=== PATIENT | male | born 1940 | race Caucasian/White ===

== ENCOUNTER → 2017-11-08 10:19 | Outpatient (CLI) | payer MEDICARE, OTHER, SELFPAY ==
[2016-12-21 14:00] VITALS: BMI 28.0
--- NOTE | 2017-11-08 10:20 | STE_ITS ---
Reason For Study: Dyspnea Stress Results Protocol: Modified Scooby Protocol Maximum Predicted HR: 144 bpm Target HR: 122 bpm% Maximum Pred icted HR: 97 % Heart Stage Duration Rate BPCom ment (mm:ss) (bpm) Baseline 73 136/70 Modified Scooby Protocol Stage 0 3:00 11 7 162/74No Chest Pain Modified Scooby Protocol Stage 1/2 3:00 13 4 150/76Mild Dyspnea Moderate Dyspnea, Knee Pain, No Chest Modified Scooby Protocol Stage 1 1:00 13 9 / Pain Recovery 85 134/68 Stress Duration: 7:00 mm:ss Maximum Stress HR: 139 bpmM ETS: 4 Baseline Echocardiogram Findings The estimated ejection fraction is 60 %. Stress Echo Wall motion Data Resting WMIntermediate WMStress WM Wall Motion Stress No regional wall motion abnormalities noted. EKG Data Normal intervals are noted. Interpretation Summary The estimated ejection fraction is 60 %. Normal, adequate, modified Scooby treadmill echocardiogram. Negative for ischemia by EKG and echocardiographic criteria. No anginal symptoms noted. No arrhythmias noted. Appropriate blood pressure response to exercise. Average exercise capacity for age. Average exercise capacity for age. Final LVEF is 75%. Test terminated due to knee pain. Ordering Physician: Rich Sanchez Referring Physician: Rich Sanchez Performed By: Dia Stubbs, AMANDEEP, RVT
== END ==
PROVIDERS: Family Provider Student in an Organized Health Care Education/Training Program; PCP Student in an Organized Health Care Education/Training Program; Visit Provider Internal Medicine Cardiovascular Disease
DX: I25.10 Atherosclerotic heart disease of native coronary artery without angina pectoris (principal); I25.5 Ischemic cardiomyopathy; Z95.1 Presence of aortocoronary bypass graft
CPT/HCPCS: 93017; 93350

== ENCOUNTER → 2018-05-22 07:03 | Outpatient (CLI) | payer MEDICARE, OTHER, SELFPAY ==
[2016-12-21 14:00] VITALS: BMI 28.0
--- NOTE | 2018-05-22 16:07 | PFTCOMP ---
COMPLETE PULMONARY FUNCTION TEST INTERPRETATION Brief HPI: Patient is a 77 year old male, currently under the care of Dr. Sanchez, who presents to [facility] for complete pulmonary function tests secondary to diagnosis of dyspnea. Respiratory therapist reports good effort and reproducible results. Interpretation: Forced expiration spirometry shows a mild large airways obstructive ventilatory defect with an FEV1 of 80% predicted. There is no significant bronchodilator response by strict ATS criteria. Spirograms are of good quality and plateau slowly, indicating slowly emptying areas of the lungs. The respiratory flow volume loop shows decreased expiratory flow rates at all lung volumes consistent with airway obstruction. Lung volumes by body plethysmography show a normal total lung capacity at 6.31 L, 106% predicted. All other lung volumes are within normal limits. Diffusion capacity by carbon monoxide is normal at 114% predicted. The airway resistance is elevated. No previous pulmonary function tests were available for review. Impression: Irreversible mild large airways obstructive ventilatory defect with preserved ejection fraction consistent with a diagnosis of chronic bronchitis
== END ==
PROVIDERS: Family Provider Student in an Organized Health Care Education/Training Program; PCP Student in an Organized Health Care Education/Training Program; Referring Provider Internal Medicine Cardiovascular Disease; Visit Provider Internal Medicine Cardiovascular Disease
DX: R06.02 Shortness of breath (principal); I25.5 Ischemic cardiomyopathy; N18.3 Chronic kidney disease, stage 3 (moderate)
CPT/HCPCS: 94060; 94726; 94729

== ENCOUNTER 2018-08-17 09:38 | Emergency (ER) | payer MEDICARE, OTHER, SELFPAY ==
[2016-12-21 14:00] VITALS: BMI 28.0
[2018-08-17 09:39] VITALS: BP 137/66; PULSE 68; RESP 12; TEMP 36.5; O2SAT 98; BMI 27.6
[2018-08-17 09:42] VITALS: O2SAT 98
--- NOTE | 2018-08-17 10:01 | CT_ITS ---
STUDY: CT ABDOMEN AND PELVIS WITHOUT CONTRAST REASON FOR EXAM: Male, 78 years old. Mid abdominal pain. History of abdominal aortic aneurysm. RADIATION DOSAGE (If Supplied By Facility): CTDIvol = ( 8.14 ) mGy, DLP = ( 430.92 ) mGycm TECHNIQUE: Transaxial images were obtained from the dome of the diaphragm to the symphysis pubis without oral contrast, and without intravenous contrast. Sagittal and coronal images were reconstructed. Individualized dose optimization techniques were used for this CT. COMPARISON: None. FINDINGS: Minimal degree of bibasilar atelectasis. Coronary artery calcification. Normal liver. A tiny gallstone is seen in the neck of the gallbladder. Normal spleen. Normal pancreas. Normal bilateral adrenal glands. There are multiple nonobstructive right intrarenal calculi. The largest measures 5 mm. Nonobstructive left intrarenal calculi. The largest measures 6 mm. There is a small hiatal hernia. Normal small intestine. There are multiple colonic diverticula consistent with diverticulosis. A moderate amount of fecal material is seen in the colon. The appendix is visualized and appears normal. There is diffuse atherosclerotic calcification of the abdominal aorta. There is evidence of an infrarenal abdominal aortic aneurysm with a transverse dimension of 4.5 cm this is a saccular aneurysm. Normal inferior vena cava. Normal retroperitoneum. There are 2 small calcific densities at the base of the bladder on the right and left side. This most likely represents bladder calculi from recently passed ureteral stones. There is a small umbilical hernia containing fat. The neck of the hernia measures 2.8 cm. There are degenerative changes of the visualized lumbar spine. CT/Abdomen/Pelvis without Cont IMPRESSION: Multiple bilateral nonobstructive intrarenal calculi. 2. Small calculi are seen at the base of the urinary bladder most likely from recently passed renal stones. Saccular infrarenal abdominal aortic abdomen with a transverse dimension of 4.5 cm. Electronically Signed: Rolan Akers MD at 11:15 EST Tel [phone], Service support ,
--- NOTE | 2018-08-17 10:03 | EKG12_ITS ---
Test Reason : ABD PAIN Blood Pressure : / mmHG Vent. Rate : 063 BPM Atrial Rate : 063 BPM P-R Int : 156 ms QRS Dur : 094 ms QT Int : 410 ms P-R-T Axes : 048 015 069 degrees QTc Int : 419 ms Normal sinus rhythm Nonspecific T wave abnormality Abnormal ECG Confirmed by VINAYAK ASTORGA, MONET ([id number]), restaurant expeditor YEMI LOPEZ ([id number]) on 08/21/2018 9:22:29 AM Referred By: CAMERON Confirmed By:MONET LICEA MD
--- NOTE | 2018-08-17 10:06 | ED.VISSUMM ---
- ER Visit Summary Date of Service: 08/17/18 Chief Complaint: Upper abdominal pain History of Present Illness: The patient is a 78 M history of CAD, NM, insulin-dependent diabetes, cardiac stents, bypass surgery and prior prostatectomy. No AAA. Patient states he had upper abdominal and epigastric pain for several days up to a week. Gradual and intermittent. Associated nausea. No vomiting. No diarrhea. No fever. No weight loss. Normal bowel movements. No dysuria. He does have black stool which is chronic from being on iron for chronic anemia. He also has known renal insufficiency. Denies any back pain. Denies any abdominal trauma. Physical Examination: Older male no acute distress. Vital signs are stable. He is afebrile. His current blood pressure is 137/66. HEENT exam unremarkable. Neck nontender. Lungs clear to auscultation bilaterally. Heart regular rate and rhythm rate about 70. Chest wall nontender. Abdomen soft. Nondistended. Normal bowel sounds. No peritoneal signs. No pulsatile mass. Mildly tender in epigastric periumbilical region. Both the right upper and right lower quadrants are unremarkable. There is no signs of obstruction. Normal bowel sounds. No hernias or masses appreciated. Moving all 4 extremities. Neurologically is awake and alert with no focal motor deficits. Test Results: CBC shows a white count 11.3 often his white counts are 15 or higher. Hemoglobin 11.2 typically his hemoglobins are 8-10. Electrolytes unremarkable. BUN 31 creatinine 1.8 his creatinine is been much higher in the past. Liver enzymes normal. Lipase normal. Troponin normal. CT abdomen and pelvis without contrast due to his renal insufficiency shows bilateral renal calculi. A 4.5 cm abdominal aortic aneurysm that is not bleeding. The appendix is seen is normal. There is a small umbilical hernia. A small hiatal hernia. No acute findings on the CT. Read by the radiologist and reviewed by me. His EKG showed a sinus rhythm rate of 63 with no acute signs of NM or ischemia and no significant changes from prior Emergency Department Course and Treatment: Patient does not anything currently for pain or nausea. No undergoing evaluation for upper abdominal pain. Including a CAT scan without contrast due to his renal insufficiency. Repeat exam patient is doing well at 1125. He feels fine. I went over all test results with he and the female in the room. Repeat abdominal exam is benign. He is comfortable being discharged home with outpatient follow-up. Treatment Plan: Follow-up with his doctor. Disposition: Discharge Impression: Acute upper abdominal pain of uncertain etiology Small umbilical hernia History of known AAA History of CAD, CABG, prostatectomy, anemia, insulin-dependent diabetes and renal insufficiency This note was generated with [employer] dictation software. It may contain incorrect words, spelling, and punctuation that were not noted in review of the chart prior to signing ED Disposition - Plan for ED Patient: Chief Complaint: Abd Pain Referrals: Samson Ragsdale DO [Primary Care Provider] -
--- NOTE | 2018-08-17 10:09 | ED.DCSUM_ITS ---
- ER Visit Summary Date of Service: 08/17/18 Chief Complaint: Upper abdominal pain History of Present Illness: The patient is a 78 M history of CAD, ID, insulin- dependent diabetes, cardiac stents, bypass surgery and prior prostatectomy. No AAA. Patient states he had upper abdominal and epigastric pain for several days up to a week. Gradual and intermittent. Associated nausea. No vomiting. No diarrhea. No fever. No weight loss. Normal bowel movements. No dysuria. He does have black stool which is chronic from being on iron for chronic anemia. He also has known renal insufficiency. Denies any back pain. Denies any abdominal trauma. Physical Examination: Older male no acute distress. Vital signs are stable. He is afebrile. His current blood pressure is 137/66. HEENT exam unremarkable. Neck nontender. Lungs clear to auscultation bilaterally. Heart regular rate and rhythm rate about 70. Chest wall nontender. Abdomen soft. Nondistended. Normal bowel sounds. No peritoneal signs. No pulsatile mass. Mildly tender in epigastric periumbilical region. Both the right upper and right lower quadrants are unremarkable. There is no signs of obstruction. Normal bowel sounds. No hernias or masses appreciated. Moving all 4 extremities. Neurologically is awake and alert with no focal motor deficits. Test Results: CBC shows a white count 11.3 often his white counts are 15 or higher. Hemoglobin 11.2 typically his hemoglobins are 8-10. Electrolytes unremarkable. BUN 31 creatinine 1.8 his creatinine is been much higher in the past. Liver enzymes normal. Lipase normal. Troponin normal. CT abdomen and pelvis without contrast due to his renal insufficiency shows bilateral renal calculi. A 4.5 cm abdominal aortic aneurysm that is not bleeding. The appendix is seen is normal. There is a small umbilical hernia. A small hiatal hernia. No acute findings on the CT. Read by the radiologist and reviewed by me. His EKG showed a sinus rhythm rate of 63 with no acute signs of ID or ischemia and no significant changes from prior Emergency Department Course and Treatment: Patient does not anything currently for pain or nausea. No undergoing evaluation for upper abdominal pain. Including a CAT scan without contrast due to his renal insufficiency. Repeat exam patient is doing well at 1125. He feels fine. I went over all test results with he and the female in the room. Repeat abdominal exam is benign. He is comfortable being discharged home with outpatient follow-up. Treatment Plan: Follow-up with his doctor. Disposition: Discharge Impression: Acute upper abdominal pain of uncertain etiology Small umbilical hernia History of known AAA History of CAD, CABG, prostatectomy, anemia, insulin-dependent diabetes and renal insufficiency This note was generated with [employer] dictation software. It may contain incorrect words, spelling, and punctuation that were not noted in review of the chart prior to signing ED Disposition - Plan for ED Patient: Chief Complaint: Abd Pain Referrals: Samson Ragsdale DO [Primary Care Provider] -
[2018-08-17 10:13] LABS: Absolute Lymphocyte Count 1.93 X10^3/ul (0.83-4.51); Basophil# 0.02 X10^3/uL; Basophil% 0.2 % (0-1); Eosinophil# 0.26 X10^3/uL; Eosinophils% 2.3 % (0-5); Hematocrit 36.6 % (40-54); Hemoglobin 11.2 g/dl (13.0-16.5); Lymphocyte # 1.93 X10^3/ul (4.0); Lymphocyte % 17.1 % (19-41); Mean Corp Hgb Conc 30.6 g/gl (32-36); Mean Corpuscular Hgb 26.4 pg (27.0-32.0); Mean Corpuscular Volume 86.1 fL (80-94); Monocyte# 1.06 X10^3/uL; Monocyte% 9.4 % (0-10); Neutrophil # 8.01 X10^3/uL (2.7-7.7); Neutrophil % 70.8 % (47-70); POSITIVE COUNT NO; POSITIVE DIFFERENTIAL NO; POSITIVE MORPHOLOGY NO; Platelet Count 337 K/mm3 (150-450); RBC Distribution Width SD 53.5 fl (35.1-43.9); Red Blood Count 4.25 M/mm3 (4.6-6.2); White Blood Count 11.3 K/mm3 (4.4-11.0)
[2018-08-17 10:26] LABS: AST(SGOT) 13 U/L (15-37); Alanine Aminotransfer ALT/SGPT 19 U/L (16-61); Albumin, Serum 3.4 g/dL (3.2-5.0); Alkaline Phosphatase 115 U/L (45-117); Anion Gap 9 (5-15); BUN 31 mg/dL (7-18); BUN/Creat Ratio 17.2 RATIO (10-20); Calcium,Total 8.3 mg/dL (8.5-10.1); Chloride 110 mmol/L (98-107); EST Glomerular Filtration Rate 39 mL/min (>60); Est Glom Filt Rate - Afr Amer 47 mL/min (>60); Estimated Creatinine Clearance 33.25 ml/min; Globulin 3.7 g/dL (2.2-4.2); Glucose 122 mg/dL (74-106); Lipase 170 U/L (73-393); Potassium 3.9 mmol/L (3.5-5.1); Protein, Total 7.1 g/dL (6.4-8.2); Sodium Level 141 mmol/L (136-145)
[2018-08-17 11:28] VITALS: BP 133/69; PULSE 65; RESP 14; O2SAT 98
--- NOTE | 2018-08-17 11:28 | ED.DEP ---
ED Disposition - Plan for ED Patient: Disposition: Home or Assisted Living Chief Complaint: Abd Pain Instructions: ED Abdominal Pain Unkn Cause Referrals: Samson Ragsdale DO [Primary Care Provider] - As Needed
[2018-08-17 11:29] VITALS: BP 133/69; PULSE 68; RESP 14; O2SAT 98
--- OUTSIDE RECORDS SUMMARY | 2018-10-22 01:03 | XMS RPT_ITS ---
:1940 Author Organization OHIP Support Name Relationship Address Phone COLIN GAGE Unavailable [address] + [place] [address] JOSE A GAGEHEN Unavailable Unavailable + [place] [address] R Unavailable Unavailable Unavailable MALCUIT, COLIN Unavailable [address] + [place] [address] FRANKY LAURA Unavailable Unavailable + [place] [address] R Unavailable Unavailable Unavailable MALCUIT, COLIN Unavailable [address] + [place] [address] FRANKY, LAURA Unavailable Unavailable + [place] [address] R Unavailable Unavailable Unavailable MALCUIT, COLIN Unavailable [address] + [place] [address] R Unavailable Unavailable Unavailable MALCUIT, COLIN Unavailable [address] + [place] [address] R Unavailable Unavailable Unavailable MALCUIT, COLIN Unavailable [address] + [place] [address] R Unavailable Unavailable Unavailable MALCUIT, COLIN Unavailable [address] + [place] [address] R Unavailable Unavailable Unavailable MALCUIT, COLIN Unavailable [address] + [place] [address] R Unavailable Unavailable Unavailable MALCUIT, COLIN Unavailable [address] + [place] [address] R Unavailable Unavailable Unavailable Care Team Providers Name Role Phone RAGSDALE, SAMSON L Referring Unavailable RAGSDALE, SAMSON L Referring Unavailable RAGSDALE, SAMSON L Attending Unavailable RAGSDALE, SAMSON L Referring Unavailable RAGSDALE, SAMSON L Referring Unavailable CORNIELLO, PAO L (DIP FILLER) Referring Unavailable RAGSDALE, SAMSON L Attending Unavailable RAGSDALE, SAMSON L Referring Unavailable RAGSDALE, SAMSON L Referring Unavailable RAGSDALE, SAMSON L Referring Unavailable THORPE, JULISSA (UROLOGIC SURGEON) Attending Unavailable RAGSDALE, SAMSON L Referring Unavailable THORPE, JULISSA (UROLOGIC SURGEON) Referring Unavailable RAGSDALE, SAMSON L Referring Unavailable RAGSDALE, SAMSON L Attending Unavailable RAGSDALE, SAMSON L Referring Unavailable THORPE, JULISSA (UROLOGIC SURGEON) Attending Unavailable THORZHOU, JULISSA (UROLOGIC SURGEON) Referring Unavailable RUY CHILDRESS Referring Unavailable RUY CHILDRESS Attending Unavailable SHANTE, MONY ESTRADA Attending Unavailable THORPEJULISSA (UROLOGIC SURGEON) Referring Unavailable SHANTE, MONY MAXII Referring Unavailable FRANCY GARNER JR Attending Unavailable FRANCY GARNER JR Referring Unavailable SHANTE, MONY ESTRADA Attending Unavailable SHANTE, MONY NABI Referring Unavailable HERMINIO NIEVES (PA) Referring Unavailable CORNIELLO, PAO Jaison (DIP FILLER) Attending Unavailable HERMINIO NIEVES (PA) Referring Unavailable RAGSDALE, SAMSON L Referring Unavailable RAGSDALE, SAMSON L Attending Unavailable RAGSDALE, SAMSON L Referring Unavailable Ragsdale, Samson Primary Care Unavailable Marcial Mon Attending Unavailable Bonny Quinteros Attending Unavailable Ragsdale, Samson Primary Care Unavailable Tania Maxwell Attending Unavailable Rich Sanchez Attending Unavailable Ragsdale, Samson Referring Unavailable Ragsdale, Samson Primary Care Unavailable Rich Sanchez Attending Unavailable Rich Sanchez Referring Unavailable Ragsdale, Samson Primary Care Unavailable Rich Sanchez Attending Unavailable Rich Sanchez Referring Unavailable Rich Sanchez Attending Unavailable Ragsdale, Samson Referring Unavailable Rich Sanchez Attending Unavailable Rich Sanchez Referring Unavailable Ragsdale, Samson Primary Care Unavailable Scooby Art Attending Unavailable Rich Sanchez Referring Unavailable PROBLEMS PROBLEMS DATE TYPE CONDITION / CODE ATTENDING STATUS SOURCE 08/02/2018 Active Type 2 diabetes NA Active [place] mellitus without [facility] complications / [facility] E11.9(ICD-10) Repository 08/02/2018 Active Hyperlipidemia, NA Active [place] unspecified / Clinic Main E78.5(ICD-10) [facility] Repository 06/06/2018 Active 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) [facility] / D50.0(ICD-10) Repository 05/31/2018 Active Pain in right elbow / NA Active [facility] M25.521(ICD-10) Clinic Main [facility] Repository 05/22/2018 Unknown I25.5 - Ischemic Rich Sanchez Active [facility] cardiomyopathy / [facility] I25.5(ICD-10) Hospital Repository 05/22/2018 Unknown N18.3 - Chronic Rich Sanchez Active [facility] kidney disease, stage Community 3 (moderate) / Hospital N18.3(ICD-10) Repository 05/23/2018 Unknown R06.02 - Shortness of [place] Scooby Active [facility] breath / Community R06.02(ICD-10) Hospital Repository 05/08/2018 Unknown I71.4 - Abdominal Rich Sanchez Active [place] aortic aneurysm, Community without rupture / Hospital I71.4(ICD-10) Repository 03/25/2005 Active Malignant neoplasm of NA Active [facility] prostate / Clinic Main C61(ICD-10) [facility] Repository 04/18/2018 Active Anemia, unspecified / NA Active [facility] D64.9(ICD-10) Clinic Main [facility] Repository 04/18/2018 Active Other disorders of NA Active [facility] plasma-protein [facility] metabolism, not [facility] elsewhere classified Repository / E88.09(ICD-10) 04/18/2018 Active Wheezing / NA Active [facility] R06.2(ICD-10) Clinic Main [facility] Repository 04/18/2018 Active Shortness of breath / NA Active [facility] R06.02(ICD-10) [facility] Repository 01/31/2018 Active Abdominal aortic NA Active [facility] aneurysm, without [facility] rupture / [facility] I71.4(ICD-10) Repository 01/30/2018 Active Effusion, left ankle NA Active [facility] / M25.472(ICD-10) Clinic Main [facility] Repository 10/21/2006 Active Essential (primary) NA Active [facility] hypertension / [facility] I10(ICD-10) [facility] Repository 01/23/2018 Active Other group home NA Active [facility] (current) drug [facility] therapy / [facility] Z79.899(ICD-10) Repository 11/30/2017 Unknown I25.10 - Rich Sanchez Active [place] [facility] Atherosclerotic heart Community disease of [facility] coronary artery Repository without angina pectoris / I25.10(ICD-10) 08/03/2017 Active Type 2 diabetes NA Active [facility] mellitus with [facility] hyperglycemia / [facility] E11.65(ICD-10) Repository 08/03/2017 Active detention (current) NA Active [facility] use of insulin / Clinic Main Z79.4(ICD-10) [facility] Repository 07/04/2017 Active Chronic kidney NA Active [facility] disease, stage 3 [facility] (moderate) / [facility] N18.3(ICD-10) Repository 09/02/2015 Active Pure NA Active [facility] hypercholesterolemia, Clinic [facility] unspecified / [facility] E78.00(ICD-10) Repository 10/24/2017 Active Encounter for NA Active [facility] screening for [facility] malignant neoplasm of [facility] prostate / Repository Z12.5(ICD-10) 10/18/2017 Unknown Z95.1 - Presence of Rich Sanchez Active [place] aortocoronary bypass Community graft / Z95.1(ICD-10) Hospital Repository 10/18/2017 Unknown E78.5 - Rich Sanchez Active [place] Hyperlipidemia, Community unspecified / Hospital E78.5(ICD-10) Repository 10/06/2017 Active Cough / R05(ICD-10) NA Active [facility] Repository PROCEDURES PROCEDURES No Procedure Records FoundRESULTS RESULTS 12 LEAD ELECTROCARDIOGRAM Observed: 08/21/2018 Status: F Source: [place] 9:22 AM [facility] Cardiovascular Services [address] [place] [address] 12 Lead EKG 08/17/18 1015 MR#: [id number] Acct: [id number] Name: ABRAHAM GAGE Rep #: [id number] : 1940 78 From: Wojciech López MD Attending Dr: Status: DEP ER Ordering Dr: Marcial Mon MD Date: 08/17/18 Location: ED Sex: M C Admitted: Test Reason : ABD PAIN Blood Pressure : / mmHG Vent. Rate : 063 BPM Atrial Rate : 063 BPM P-R Int : 156 ms QRS Dur : 094 ms QT Int : 410 ms P-R-T Axes : 048 015 069 degrees QTc Int : 419 ms Normal sinus rhythm Nonspecific T wave abnormality Abnormal ECG Confirmed by VINAYAK ASTORGA, WOJCIECH ([id number]), senior technical editor YEMI LOPEZ ([id number]) on 08/21/2018 9:22:29 AM Referred By: CAMERON Confirmed By:WOJCIECH LÓPEZ MD 08/21/18 0922 Date Wojciech López MD CC: Marcial Mon MD; Samson Bowens DO Signed EMERGENCY DEPARTMENT Observed: 08/17/2018 Status: F Source: [place] SUMMARY 4:05 PM [facility] Medical Records Department [address] [place] [address] Emergency Department Summary 08/17/18 1006 MR#: [id number] Acct: [id number] Name: ABRAHAM GAGE Rep #: [id number] : 1940 78 From: Marcial Mon MD PCP: Samson Bowens DO Status: DEP ER - ER Visit Summary Date of Service: 08/17/18 Chief Complaint: Upper abdominal pain History of Present Illness: The patient is a 78 M history of CAD, IN, insulin-dependent diabetes, cardiac stents, bypass surgery and prior prostatectomy. No AAA. Patient states he had upper abdominal and epigastric pain for several days up to a week. Gradual and intermittent. Associated nausea. No vomiting. No diarrhea. No fever. No weight loss. Normal bowel movements. No dysuria. He does have black stool which is chronic from being on iron for chronic anemia. He also has known renal insufficiency. Denies any back pain. Denies any abdominal trauma. Physical Examination: Older male no acute distress. Vital signs are stable. He is afebrile. His current blood pressure is 137/66. HEENT exam unremarkable. Neck nontender. Lungs clear to auscultation bilaterally. Heart regular rate and rhythm rate about 70. Chest wall nontender. Abdomen soft. Nondistended. Normal bowel sounds. No peritoneal signs. No pulsatile mass. Mildly tender in epigastric periumbilical region. Both the right upper and right lower quadrants are unremarkable. There is no signs of obstruction. Normal bowel sounds. No hernias or masses appreciated. Moving all 4 extremities. Neurologically is awake and alert with no focal motor deficits. Test Results: CBC shows a white count 11.3 often his white counts are 15 or higher. Hemoglobin 11.2 typically his hemoglobins are 8-10. Electrolytes unremarkable. BUN 31 creatinine 1.8 his creatinine is been much higher in the past. Liver enzymes normal. Lipase normal. Troponin normal. CT abdomen and pelvis without contrast due to his renal insufficiency shows bilateral renal calculi. A 4.5 cm abdominal aortic aneurysm that is not bleeding. The appendix is seen is normal. There is a small umbilical hernia. A small hiatal hernia. No acute findings on the CT. Read by the radiologist and reviewed by me. His EKG showed a sinus rhythm rate of 63 with no acute signs of IN or ischemia and no significant changes from prior Emergency Department Course and Treatment: Patient does not anything currently for pain or nausea. No undergoing evaluation for upper abdominal pain. Including a CAT scan without contrast due to his renal insufficiency. Repeat exam patient is doing well at 1125. He feels fine. I went over all test results with he and the female in the room. Repeat abdominal exam is benign. He is comfortable being discharged home with outpatient follow-up. Treatment Plan: Follow-up with his doctor. Disposition: Discharge Impression: Acute upper abdominal pain of uncertain etiology Small umbilical hernia History of known AAA History of CAD, CABG, prostatectomy, anemia, insulin-dependent diabetes and renal insufficiency This note was generated with Memamp dictation software. It may contain incorrect words, spelling, and punctuation that were not noted in review of the chart prior to signing ED Disposition - Plan for ED Patient: Chief Complaint: Abd Pain Referrals: Samson Ragsdale, DO [Primary Care Provider] - What to do if you have Problems For any increased pain, shortness of breath, bleeding, nausea or vomiting, chest pain, or any unexpected problems, contact your Primary Care Provider. Call [facility] ([phone]) or report to the closest Emergency Room. Call 911 if necessary. 08/17/18 5046 <Electronically signed by Marcial Mon MD> Date Marcial Mon MD Cosigner Signature (If Indicated): Date CC: Samson Bowens DO DISCHARGE INSTRUCTION Observed: 08/17/2018 Status: F Source: [place] 4:04 PM [facility] Medical Records Department [address] [address] Discharge Instruction 08/17/18 1128 MR#: [id number] Acct: [id number] Name: ABRAHAM GAGE Rep #: [id number] : 1940 78 From: Marcial Mon MD PCP: Samson Bowens DO Status: DEP ER ED Disposition - Plan for ED Patient: Disposition: Home or Assisted Living Chief Complaint: Abd Pain Instructions: ED Abdominal Pain Unkn Cause Referrals: Samson Ragsdale DO [Primary Care Provider] - As Needed What to do if you have Problems For any increased pain, shortness of breath, bleeding, nausea or vomiting, chest pain, or any unexpected problems, contact your Primary Care Provider. Call [facility] ([phone]) or report to the closest Emergency Room. Call 911 if necessary. 08/17/18 1604 <Electronically signed by Marcial Mon MD> Date Marcial Mon MD Cosigner Signature (If Indicated): Date CC: Samson Bowens DO ABDOMEN/PELVIS WITHOUT Observed: 08/17/2018 Status: F Source: [place] CONT 10:02 AM [facility] Imaging Services [address] [place] [address] Abdomen/Pelvis without Cont MR#: [id number] Acct: [id number] Name: ABRAHAM GAGE Rep #: [id number] : 1940 M 78 From: Rolan Akers MD PCP: Samson Bowens DO Status: REG ER Study: Abdomen/Pelvis without Cont Date of Exam: 08/17/18 Exam# [id number] Ordering Dr: Marcial Mon MD STUDY: CT ABDOMEN AND PELVIS WITHOUT CONTRAST REASON FOR EXAM: Male, 78 years old. Mid abdominal pain. History of abdominal aortic aneurysm. RADIATION DOSAGE (If Supplied By Facility): CTDIvol = ( 8.14 ) mGy, DLP = ( 430.92 ) mGycm TECHNIQUE: Transaxial images were obtained from the dome of the diaphragm to the symphysis pubis without oral contrast, and without intravenous contrast. Sagittal and coronal images were reconstructed. Individualized dose optimization techniques were used for this CT. COMPARISON: None. FINDINGS: Minimal degree of bibasilar atelectasis. Coronary artery calcification. Normal liver. A tiny gallstone is seen in the neck of the gallbladder. Normal spleen. Normal pancreas. Normal bilateral adrenal glands. There are multiple nonobstructive right intrarenal calculi. The largest measures 5 mm. Nonobstructive left intrarenal calculi. The largest measures 6 mm. There is a small hiatal hernia. Normal small intestine. There are multiple colonic diverticula consistent with diverticulosis. A moderate amount of fecal material is seen in the colon. The appendix is visualized and appears normal. There is diffuse atherosclerotic calcification of the abdominal aorta. There is evidence of an infrarenal abdominal aortic aneurysm with a transverse dimension of 4.5 cm this is a saccular aneurysm. Normal inferior vena cava. Normal retroperitoneum. There are 2 small calcific densities at the base of the bladder on the right and left side. This most likely represents bladder calculi from recently passed ureteral stones. There is a small umbilical hernia containing fat. The neck of the hernia measures 2.8 cm. There are degenerative changes of the visualized lumbar spine. CT/Abdomen/Pelvis without Cont IMPRESSION: Multiple bilateral nonobstructive intrarenal calculi. 2. Small calculi are seen at the base of the urinary bladder most likely from recently passed renal stones. Saccular infrarenal abdominal aortic abdomen with a transverse dimension of 4.5 cm. 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 CBC W/DIFF, AUTOMATED Collected: 08/17/2018 Status: F Source: [place] 9:43 AM [facility] REPOSITORY TYPE CODE TESTS RESULT OUT OF RANGE REFERENCE UNITS LAB L100.1000 4.4-11.0 K/mm3 High WBC 11.3 LAB L100.1200 4.6-6.2 M/mm3 Low RBC 4.25 LAB L100.1300 13.0-16.5 g/dl Low HGB 11.2 LAB L100.1400 40-54 % Low HCT 36.6 LAB L100.1500 80-94 fL Normal MCV 86.1 LAB L100.1600 27.0-32.0 pg Low MCH 26.4 LAB L100.1700 32-36 g/gl Low MCHC 30.6 LAB L100.1810 11.6-14.6 % High RDW CV 17.0 LAB L100.1820 35.1-43.9 fl High RDW SD 53.5 LAB L100.1900 150-450 K/mm3 Normal PLT 337 LAB L100.2000 6.2-12.0 fl Normal MPV 9.0 LAB L100.2100 47-70 % High NEUT% 70.8 LAB L100.2200 19-41 % Low LY% 17.1 LAB L100.2300 0-10 % Normal MONO% 9.4 LAB L100.2400 0-5 % Normal EO% 2.3 LAB L100.2500 0-1 % Normal BASO% 0.2 LAB L100.2550 0.0-0.9 % Normal IM GRAN % 0.200 Result Comment: IG% - Immature Granulocytes (promyelocytes, myelocytes and metamyelocytes) > 1% indicates that a LEFT SHIFT is Present. LAB L100.2620 2.0-7.7 X10 3/uL High Absolute Neut 8.0 LAB L100.2720 0.83-4.51 X10 3/ul Normal Absolute Lymph 1.93 Performed By: #### L100.0100 #### [facility], [facility] Hospital Laboratory [address] [place], [address] BASIC METABOLIC Collected: 08/17/2018 Status: F Source: [place] PROFILE (BMP) 9:43 AM [facility] REPOSITORY TYPE CODE TESTS RESULT OUT OF RANGE REFERENCE UNITS LAB L501.0100 74-106 mg/dL High GLU 122 Result Comment: Fasting Glucose result from 100 to 125 mg/dL suggests IMPAIRED HOMEOSTASIS per A.D.A. criteria. Please note revised GLUCOSE reference range effective 2017. LAB L501.1000 7-18 mg/dL High BUN 31 LAB L501.1100 0.70-1.30 mg/dL High CREAT,SERUM 1.80 Result Comment: The validity of the calculated GFR AND GFRAA in patients over 70 years has not been determined. Clinical correlation is essential. LAB L501.1110 >60 mL/min Low EST GFR 39 Result Comment: Non- GFR Calc LAB L501.1115 >60 mL/min Low EST GFR - AA 47 Result Comment: GFR Calc LAB L501.1255 ml/min Normal Estimated CRCL 33.25 LAB L501.1300 10-20 RATIO Normal BUN/CRE 17.2 LAB L501.2200 8.5-10 mg/dL Low .1 CA 8.3 LAB L501.5300 136-14 mmol/L Normal 5 NA 141 LAB L501.5600 3.5-5. mmol/L Normal 1 K 3.9 LAB L501.5900 98-107 mmol/L High CL 110 LAB L501.6100 21.0-3 mmol/L Normal 2.0 CO2 22.0 LAB L501.6200 5-15 Normal GAP 9 Performed By: #### L500.2500, L500.3400, L501.2450, L501.4010 #### [facility] [address] [place], [address] LIVER PROFILE Collected: 08/17/2018 Status: F Source: [place] 9:43 AM [facility] REPOSITORY TYPE CODE TESTS RESULT OUT OF RANGE REFERENCE UNITS LAB L501.1500 6.4-8.2 g/dL Normal T PROT 7.1 LAB L501.1800 3.2-5.0 g/dL Normal ALB 3.4 LAB L501.1950 2.2-4.2 g/dL Normal GLOB 3.7 LAB L501.4100 15-37 U/L Low AST 13 LAB L501.4305 45-117 U/L Normal ALK P 115 LAB L501.4405 16-61 U/L Normal ALT 19 LAB L501.4600 0.20-1.00 mg/dL Low T BILI 0.10 LAB L501.4700 0.00-0.30 mg/dL Normal D BILI 0.10 Performed By: #### L500.2500, L500.3400, L501.2450, L501.4010 #### [facility] [address] [place], [place], [address] LIPASE Collected: 08/17/2018 Status: F Source: [place] 9:43 AM [facility] REPOSITORY TYPE CODE TESTS RESULT OUT OF RANGE REFERENCE UNITS LAB L501.2450 73-393 U/L Normal LIPASE 170 Performed By: #### L500.2500, L500.3400, L501.2450, L501.4010 #### [facility] [address] [place], [place], [address] TROPONIN-I Collected: 08/17/2018 Status: F Source: [place] 9:43 [facility] REPOSITORY TYPE CODE TESTS RESULT OUT OF RANGE REFERENCE UNITS LAB L501.4010 <0.045 ng/mL Normal < 0.015 TROPONIN-I Result Comment: TROPONIN-I EXPECTED VALUES <0.045 Negative 0.045 - 0.590 Consistent with Cardiac Damage > OR = 0.600 Critical Value Not every elevated troponin is indicative of IN. These values should be used with clinical judgement in examining the patient's clinical picture for diagnosis. To establish a diagnosis of IN versus myocardial injury, there must be a demonstrated rise and/or fall in the troponin values, in addition to ischemic symptoms, EKG changes, new regional wall motion abnormality, and/or angiographical evidence. PLEASE NOTE: REFERENCE RANGES EDITED 17 Performed By: #### L500.2500, L500.3400, L501.2450, L501.4010 #### [facility] [address] [facility] [address] OBSOLETE Observed: 08/16/2018 Status: COMPLETED Source: [place] 12:00 AM [facility] REPOSITORY Refill (FAMPWS) ABRAHAM GAGE ([id number]) 1940 M Date Time Provider Department 08/16/18 [facility] During your visit today, we recorded the following information about you: Scott Montano LPN 08/16/2018 9:08 AM Signed Patient phones requesting refills as follows: Pending Prescriptions Disp Refills AMLODIPINE 5 MG TABLET 90 tablet 3 Sig: Take 1 tablet by mouth once daily. MATTY: No RANITIDINE 150 MG TABLET 90 tablet 3 Sig: Take 1 tablet by mouth daily at bedtime. MATTY: No CASEY 08/07/18 NOV 11/06/18 Please review and advise. Scott Montano LPN Allergies As of Date: 08/16/2018 Noted Allergy Reaction ATORVASTATIN 10/18/2017 16 - Unknown CRESTOR (ROSUVASTATIN CALCIUM) 04/24/2013 14 - Other: See Comments Comments: Muscle pain GLUCOSAMINE 06/27/2017 16 - Unknown Comments: Nerve pain MOTRIN (IBUPROFEN) 01/19/2006 2 - Rash PRAVASTATIN 02/19/2013 14 - Other: See Comments Comments: muscle aches WUXPJIM-XTP-IDY REDUCTASE INHIBIT*10/09/2014 14 - Other: See Comments Comments: myalgia Date Reviewed: 08/07/2018 Reviewed by: Shila Hernández LPN - Fully Assessed Reason for Visit: Refill Request [94] Visit Diagnosis:Essential hypertension, benign [I10] Order(s):amLODIPine (NORVASC) 5 mg tabletTake 1 tablet by mouth once daily.Disp: 90 tabletRfl: 3 ranitidine (ZANTAC) 150 mg tabletTake 1 tablet by mouth daily at bedtime.Disp: 90 tabletRfl: 3 Prescriptions as of 08/16/2018 Sig: AMLODIPINE 5 MG TABLET Take 1 tablet by mouth once d* RANITIDINE 150 MG TABLET Take 1 tablet by mouth daily * HYDROCODONE 5 MG-ACETAMINOPHE* Take 1 tablet by mouth every * PREDNISONE 20 MG TABLET Take 2 tablets by mouth once * PEN NEEDLE, DIABETIC 32 GAUGE* Use once daily with Lantus as* OMEGA 3 ORAL Take by mouth. HYDROCORTISONE 2.5 % TOPICAL * Apply 1 application to affect* BLOOD SUGAR DIAGNOSTIC STRIPS Test blood sugar(s) 1 times d* DILTIAZEM SR 120 MG 24 HR CAP Take 1 capsule by mouth once * LOSARTAN 25 MG TABLET Take 1 tablet by mouth once d* ISOSORBIDE MONONITRATE ER 30 * Take 1 tablet by mouth once d* INSULIN GLARGINE (U-100) 100 * Inject 10 Units subcutaneousl* FERROUS SULFATE 325 MG (65 MG* Take 325 mg by mouth twice da* CETIRIZINE 10 MG CHEWABLE TAB* Take 10 mg by mouth once marvin* COMPOUNDED PRESCRIPTION kyloic Cholesterol 104 CHOLECALCIFEROL (VITAMIN D3) * Take 5,000 Units by mouth twi* BLOOD SUGAR DIAGNOSTIC STRIPS Use once daily to test blood * TRUE METRIX GLUCOSE METER 1 Each as directed. METOPROLOL TARTRATE 25 MG TAB* TAKE 1/2 (ONE-HALF) OF A TABL* KLOR-CON M10 MEQ TABLET,EXTEN* Take 10 mEq by mouth once felice* BLOOD-GLUCOSE METER KIT 1 Each as directed. LANCETS Use as instructed GEMFIBROZIL 600 MG TABLET Take 1 tablet by mouth twice * FUROSEMIDE 40 MG TABLET Take 1 tablet by mouth once d* CLOPIDOGREL 75 MG TABLET Take 1 tablet by mouth once d* POTASSIUM CHLORIDE ER 10 MEQ * Take 1 tablet by mouth once d* OCUVITE ORAL Take by mouth. COMPOUNDED PRESCRIPTION Nature's way Kidney Bladder COMPOUNDED PRESCRIPTION [facility] Garlic [place] TRIAMCINOLONE ACETONIDE 0.1 %* Apply 1 application to affect* VITAMIN D3 ORAL Take 600 mg by mouth once felice* COENZYME Q10 100 MG CAPSULE Take 1 capsule by mouth. ONE DAILY MULTI-VITAMIN TABLET Take one(1) tablet daily. CALTRATE-600 PLUS VITAMIN D3 * TAKE TWO TABLETS DAILY. Problem List As Of Date 08/16/2018 Noted Resolved GENERAL OSTEOARTHROSIS [M15.9] DIAPHRAGMATIC HERNIA [K44.9] ASCVD [I25.10] More... 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] INVALID FOR* L-S Radiculopathy [M54.17] INVALID FOR* Thoracic or Lumbosacral Neuritis or Radiculitis*INVALID FOR* Glucose intolerance (pre-diabetes) [R73.03] INVALID FOR*07/04/2014 CAD (coronary artery disease) [I25.10] INVALID FOR* Gout [M10.9] INVALID FOR* AAA (abdominal aortic aneurysm) [I71.4] INVALID FOR* Diabetes mellitus type 2, uncontrolled, without*INVALID FOR* Stented coronary artery [Z95.5] INVALID FOR* Fatigue [R53.83] INVALID FOR* Absolute anemia [D64.9] INVALID FOR* CKD (chronic kidney disease) stage 3, GFR 30-59*INVALID FOR* Diarrhea [R19.7] INVALID FOR* CKD (chronic kidney disease) stage 4, GFR 15-29*INVALID FOR* Coronary artery 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 rich plaqu*INVALID FOR* Low blood potassium [E87.6] INVALID FOR* Uncontrolled type 2 diabetes mellitus without c*INVALID FOR* Controlled type 2 diabetes mellitus without com*INVALID FOR* Hypoalbuminemia [E88.09] INVALID FOR* Generalized abdominal pain [R10.84] INVALID FOR* Blood in stool [K92.1] INVALID FOR* 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 RANITIDINE 150 MG TABLET 90 t* 3 08/16/2018 Route: ORAL Sig: Take 1 tablet by mouth daily at bedtime. Medications Discontinued During This Encounter amLODIPine (NORVASC) 5 mg tablet 90 t* 3 10/31/2017 08/16/2018 Route: ORAL Sig: Take 1 tablet by mouth once daily. Disc: Reason for discontinue is not on file. ranitidine (ZANTAC) 150 mg tablet 90 t* 3 10/31/2017 08/16/2018 Route: ORAL Sig: Take 1 tablet by mouth daily at bedtime. Disc: Reason for discontinue is not on file. Encounter Status:Closed by PAO HA CNP on 08/16/18 PROGRESS Observed: 08/07/2018 Status: COMPLETED Source: [place] 12:27 PM [facility] REPOSITORY HNO ID: [id number] Author: Samson Ragsdale Service: (none) Author Type: Physician Type: Progress Notes Filed: 08/07/2018 12:46 PM Note Text: Patient presents with: Follow Up: 3 months HPI: Abraham Gage is a 78 year old male who presents to the office today for review of health conditions. Concerns today: Right foot pain, swelling and redness, present for the last 1-2 weeks, hx of gout, hasn't taken any medications other than Tylenol CKD stage 4, has been trying to drink more water and stay hydrated better. Still urinating well. Mr. Gage has past history of diabetes. Since our last visit he denies excessive thirst or increased frequency of urination, chest pain or dyspnea , new or unusual visual symptoms and low sugar/hypoglycemic reactions. Follows a diabetic diet most of the time. He is compliant with medication(s) and is tolerating med(s) without any side effects. He reports checking his glucose on a once a day schedule with sugars in the fasting <130 range. Patient's last HgA1C was Hemoglobin A1C (%) Date Value 08/02/2018 5.8 04/18/2018 5.9 ) Last Ophthalmology exam was within the past 12 months Mr. Gage reports history of hyperlipidemia. Current therapy includes ezetimibe (Zetia) 20 mg. Denies side effects of muscle weakness or achiness. His most recent lipid panels are reviewed. Cholesterol, Total (mg/dL) Date Value 08/02/2018 184 HDL Cholesterol (mg/dL) Date Value 08/02/2018 49 LDL Cholesterol (mg/dL) Date Value 08/02/2018 116 Triglyceride (mg/dL) Date Value 08/02/2018 95 Mr. Gage indicates a history of hypertension and states that he is feeling well and denies any symptoms referable to elevated blood pressure. Specifically denies headache, chest pain, palpitations, dyspnea and peripheral edema. Patient denies any side effects of his medication(s) and is compliant with their regimen. Last 3 Encounter BP Readings: Date: BP: 08/07/2018 128/60 07/10/2018 120/62 07/07/2018 120/60 He watches his diet for sodium, low fat and low cholesterol some of the time. He does not check BP's generally. Abraham gets minimal exercise. PAST MEDICAL HISTORY Diagnosis Date - Abdominal aneurysm without mention of rupture 09/2015 4.15 cm - Acute gastritis without mention of hemorrhage 04/26/2017 EGD by Cebul - AMI (acute myocardial infarction) (HCC) 07/03/2013 - Carotid atherosclerosis 05/2014 - CKD stage G3b/A2, GFR 30-44 and albumin creatinine ratio 30-299 mg/g ([facility]) AVOID NEPHROTOXIC MEDICATIONS - Diabetes mellitus type 2, uncontrolled, without complications (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 Nolan Triana - EGD W/O RUST SPECIMEN W/BX 07/10/07 - OPEN CORONARY ENDARTERECTOMY 07/03/2013 Angioplasty Xience stent to L circumflex - PAST SURGICAL HISTORY OF 01/26/08 stent placement ramus and prox ramus - PAST SURGICAL HISTORY OF heart stents - REMV PROSTATE,PERINEAL,RADICAL 2000 Prostatectomy, radical- Dr. Ojeda - REPAIR ING HERNIA,5+Y/O,REDUCIBL left Hernia repair, inguinal - SCREENING COLONSCOPY NOT HIGH RISK 04/26/2017 Dr. Yousif Triana; next screening colonoscopy in 10yrs, [facility] Social History Marital status: Spouse name: Colin Years of education: Number of children: 2 Occupational History Occupation Employer Comment [employer]* Social History Main Topics Smoking status: Former Smoker Packs/day: 2.00 Years: 20.00 Types: Cigarettes, Pipe, Cigars Smokeless tobacco: Never Used Comment: quit in 1987 Alcohol use: Yes Comment: rarely Drug use: No FAMILY HISTORY Problem Relation Age of Onset - Hypertension Father - COPD Father - Heart Mother Allergies: ALLERGIES Allergen Reactions - Atorvastatin Unknown - Crestor [Rosuvastat* Other: See Comments Muscle pain - Glucosamine Unknown Nerve pain - Motrin [Ibuprofen] Rash - Pravastatin Other: See Comments muscle aches - Rntwgsw-Mdr-Nuq Red* Other: See Comments myalgia Current Meds: Insulin Hume, Disposable, (BD ULTRA-FINE BENNY PEN NEEDLE) 32 gauge x 5/32 ndle Use once daily with Lantus as directed flaxseed oil (OMEGA 3 ORAL) Take by mouth. hydrocortisone 2.5 % cream Apply 1 application to affected area twice daily. Location: face blood sugar diagnostic (BLOOD GLUCOSE TEST) test strip Test blood sugar(s) 1 times daily. Dx: Type 2 DM - Uncontrolled E11.65 Insulin: Yes diltiazem CD (CARDIZEM CD, CARTIA XT) 120 mg 24 hr capsule Take 1 capsule by mouth once daily. losartan (COZAAR) 25 mg tablet Take 1 tablet by mouth once daily. isosorbide mononitrate ER (IMDUR) 30 mg 24 hr tablet Take 1 tablet by mouth once daily. insulin glargine (BASAGLAR KWIKPEN U-100 INSULIN) 100 unit/mL (3 mL) inpn Inject 10 Units subcutaneously daily at bedtime. ferrous sulfate (IRON) 325 mg (65 mg iron) tablet Take 325 mg by mouth twice daily. COMPOUNDED PRESCRIPTION kyloic Cholesterol 104 cholecalciferol (VITAMIN D-3) 5,000 unit tab Take 5,000 Units by mouth twice daily. amLODIPine (NORVASC) 5 mg tablet Take 1 tablet by mouth once daily. ranitidine (ZANTAC) 150 mg tablet Take 1 tablet by mouth daily at bedtime. furosemide (LASIX) 40 mg tablet Take 1 tablet by mouth once daily. clopidogrel (PLAVIX) 75 mg tablet Take 1 tablet by mouth once daily. potassium chloride (KLOR-CON 10) 10 mEq tablet Take 1 tablet by mouth once daily. HYDROcodone-acetaminophen (NORCO) 5-325 mg per tablet Take 1 tablet by mouth every 6 hours as needed for Pain for up to 30 days. predniSONE (DELTASONE) 20 mg tablet Take 2 tablets by mouth once daily for 10 days. cetirizine HCl (ZYRTEC) 10 mg chewable tablet Take 10 mg by mouth once daily. ezetimibe (ZETIA) 10 mg tablet Take 1 tablet by mouth once daily. blood sugar diagnostic (BLOOD GLUCOSE TEST) test strip Use once daily to test blood sugar in the morning TRUE METRIX GLUCOSE METER misc 1 Each as directed. metoprolol tartrate, short acting, (LOPRESSOR) 25 mg tablet TAKE 1/2 (ONE-HALF) OF A TABLET BY MOUTH TWICE DAILY KLOR-CON M10 10 mEq tablet Take 10 mEq by mouth once daily. Blood-Glucose Meter (FREESTYLE LITE METER) monitoring kit 1 Each as directed. Lancets lancets Use as instructed gemfibrozil (LOPID) 600 mg tablet Take 1 tablet by mouth twice daily. VIT C/VIT E/LUTEIN/MIN/OMEGA-3 (OCUVITE ORAL) Take by mouth. COMPOUNDED PRESCRIPTION Nature's way Kidney Bladder COMPOUNDED PRESCRIPTION Nature's Way Garlic Parsley triamcinolone acetonide (KENALOG) 0.1 % cream Apply 1 application to affected area twice daily as needed (rash). Apply sparingly to area for rash/itching. CHOLECALCIFEROL, VITAMIN D3, (VITAMIN D3 ORAL) Take 600 mg by mouth once daily. coenzyme Q10 (COQ-10) 100 mg cap Take 1 capsule by mouth. ONE DAILY MULTI-VITAMIN ORAL TAB Take one(1) tablet daily. CALTRATE-600 PLUS VITAMIN D3 600 MG-200 UNIT ORAL TAB TAKE TWO TABLETS DAILY. Review of Systems: The remainder of the review of systems is negative. PE: 08/07/18 1142 BP: 128/60 Pulse: 72 Resp: 20 Temp: 36.4 ?C (97.5 ?F) TempSrc: Left Tympanic Weight: 80.7 kg (178 lb) Gen: AANDO, NAD, non-toxic appearing, Pleasant, cooperative HEENT: NT/AC, PERRLA, EOMs intact b/l, nares clear and patent b/l, pharynx without erythema, exudate or lesions. Uvula midline. MMM Neck: supple, No cervical LAD, no thyromegaly, no carotid bruits CV: RRR, normal S1S2, 2/6 RUSB murmurs, no gallops, no rubs, Pulses 2+ and symmetric in UE and LE b/l Lungs: normal respiratory effort, CTA b/l, no wheezing or rhonchi or rales Abd: soft, NT, ND, +BS, no hepatosplenomegaly MS: Neuro: CN II-XII intact b/l, strength 5/5 b/l UE and LE, DTRs 2/4 UE and LE Skin: warm, dry, intact, No rashes or lesions on exposed skin. Foot exam: right mid foot erythema and mild swelling without signs of infection, trace edema ASSESSMENT/PLAN: 1. Controlled type 2 diabetes mellitus without complication, with long-term current use of insulin (HCC) - ICD9: 250.00, V58.67, ICD10: E11.9, Z79.4 (primary diagnosis) Controlled. - Continue current medications - Blood glucose monitoring on a once a day schedule - HGB A1C 2. Foot pain, right - ICD9: 729.5, ICD10: M79.671 - likely secondary to gout, rx as below, f/u for other testing with xray and labs if doesn't improve - HYDROCODONE 5 MG-ACETAMINOPHEN 325 MG TABLET - PREDNISONE 20 MG TABLET 3. Acute gout of right foot, unspecified cause - ICD9: 274.01, ICD10: M10.9 - see above - HYDROCODONE 5 MG-ACETAMINOPHEN 325 MG TABLET - PREDNISONE 20 MG TABLET 4. Iron deficiency anemia due to chronic blood loss - ICD9: 280.0, ICD10: D50.0 - recheck labs at next OFFICE VISIT, continue iron supplement - CBC - COMP METABOLIC PANEL - IRON + TIBC - FERRITIN BLD 5. Dyslipidemia - ICD9: 272.4, ICD10: E78.5 - good control - Encouraged following a low fat, low cholesterol diet. - Discussed the benefits of regular aerobic exercise and weight loss. 6. CKD (chronic kidney disease) stage 3, GFR 30-59 ml/min (HCC) - ICD9: 585.3, ICD10: N18.3 - stable 7. Essential hypertension, benign - ICD9: 401.1, ICD10: I10 - good control - Continue current medication(s) - Encouraged dietary sodium restriction/DASH diet - Recommended regular aerobic exercise. - Recommend home blood pressure monitoring, to bring results in on next visit - Goal of BP <130/80 8. Fatigue, unspecified type - ICD9: 780.79, ICD10: R53.83 - see above, multifactorial, stable Samson Ragsdale DO To ER if develops chest pain, shortness of breath, or severe worsening of symptoms. Discussed risks, benefits, alternatives, and potential side effects of medications. Patient expressed understanding and agreed with the plan. Samson Ragsdale DO [address] [place] [address] CNOV Observed: 08/07/2018 Status: COMPLETED Source: [place] 12:00 PM [facility] REPOSITORY Office Visit (FAMPWS) ABRAHAM GAGE ([id number]) 1940 M Date Time Provider Department 08/07/18 12:00 PM SAMSON RAGSDALE [facility] During your visit today, we recorded the following information about you: Temperature Pulse Respiration Blood pressure 97.5 degrees 72/minute 20/minute 128/60 Weight 80.7 kg Samson Ragsdale, DO 08/07/2018 12:18 PM Signed Magnesium 500 mg in the evening Samson Ragsdale, DO 08/07/2018 12:46 PM Signed Patient presents with: Follow Up: 3 months HPI: Abraham Gage is a 78 year old male who presents to the office today for review of health conditions. Concerns today: Right foot pain, swelling and redness, present for the last 1-2 weeks, hx of gout, hasn't taken any medications other than Tylenol CKD stage 4, has been trying to drink more water and stay hydrated better. Still urinating well. Mr. Gage has past history of diabetes. Since our last visit he denies excessive thirst or increased frequency of urination, chest pain or dyspnea , new or unusual visual symptoms and low sugar/hypoglycemic reactions. Follows a diabetic diet most of the time. He is compliant with medication(s) and is tolerating med(s) without any side effects. He reports checking his glucose on a once a day schedule with sugars in the fasting <130 range. Patient's last HgA1C was Hemoglobin A1C (%) Date Value 08/02/2018 5.8 04/18/2018 5.9 ) Last Ophthalmology exam was within the past 12 months Mr. Gage reports history of hyperlipidemia. Current therapy includes ezetimibe (Zetia) 20 mg. Denies side effects of muscle weakness or achiness. His most recent lipid panels are reviewed. Cholesterol, Total (mg/dL) Date Value 08/02/2018 184 HDL Cholesterol (mg/dL) Date Value 08/02/2018 49 LDL Cholesterol (mg/dL) Date Value 08/02/2018 116 Triglyceride (mg/dL) Date Value 08/02/2018 95 Mr. Gage indicates a history of hypertension and states that he is feeling well and denies any symptoms referable to elevated blood pressure. Specifically denies headache, chest pain, palpitations, dyspnea and peripheral edema. Patient denies any side effects of his medication(s) and is compliant with their regimen. Last 3 Encounter BP Readings: Date: BP: 08/07/2018 128/60 07/10/2018 120/62 07/07/2018 120/60 He watches his diet for sodium, low fat and low cholesterol some of the time. He does not check BP's generally. Abraham gets minimal exercise. PAST MEDICAL HISTORY Diagnosis Date - Abdominal aneurysm without mention of rupture 09/2015 4.15 cm - Acute gastritis without mention of hemorrhage 04/26/2017 EGD by Cebul - AMI (acute myocardial infarction) (HCC) 07/03/2013 - Carotid atherosclerosis 05/2014 - CKD stage G3b/A2, GFR 30-44 and albumin creatinine ratio 30-299 mg/g (HCC) AVOID NEPHROTOXIC MEDICATIONS - Diabetes mellitus type 2, uncontrolled, without complications (HCC) - Diaphragmatic hernia without mention of obstruction or gangrene - Diverticulosis of colon (without mention of hemorrhage) 04/26/2017 colonoscopy by Cecharlesl - Esophagitis - Generalized osteoarthrosis, unspecified site - Internal hemorrhoid 04/26/2017 colonoscopy by Cebul - Iron deficiency anemia - Malignant neoplasm of prostate (HCC) - Other and unspecified hyperlipidemia - 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 Nolan Triana - EGD W/O RUST SPECIMEN W/BX 07/10/07 - OPEN CORONARY ENDARTERECTOMY 07/03/2013 Angioplasty Xience stent to L circumflex - PAST SURGICAL HISTORY OF 01/26/08 stent placement ramus and prox ramus - PAST SURGICAL HISTORY OF heart stents - REMV PROSTATE,PERINEAL,RADICAL 2000 Prostatectomy, radical- Dr. Ojeda - REPAIR ING HERNIA,5+Y/O,REDUCIBL left Hernia repair, inguinal - SCREENING COLONSCOPY NOT HIGH RISK 04/26/2017 Dr. Yousif Triana; next screening colonoscopy in 10yrs, [facility] Social History Marital status: Spouse name: Colin Years of education: Number of children: 2 Occupational History Occupation Employer Comment [employer]* Social History Main Topics Smoking status: Former Smoker Packs/day: 2.00 Years: 20.00 Types: Cigarettes, Pipe, Cigars Smokeless tobacco: Never Used Comment: quit in 1987 Alcohol use: Yes Comment: rarely Drug use: No FAMILY HISTORY Problem Relation Age of Onset - Hypertension Father - COPD Father - Heart Mother Allergies: ALLERGIES Allergen Reactions - Atorvastatin Unknown - Crestor [Rosuvastat* Other: See Comments Muscle pain - Glucosamine Unknown Nerve pain - Motrin [Ibuprofen] Rash - Pravastatin Other: See Comments muscle aches - Spvbnpe-Pum-Oqw Red* Other: See Comments myalgia Current Meds: Insulin Hume, Disposable, (BD ULTRA-FINE BENNY PEN NEEDLE) 32 gauge x 5/32 ndle Use once daily with Lantus as directed flaxseed oil (OMEGA 3 ORAL) Take by mouth. hydrocortisone 2.5 % cream Apply 1 application to affected area twice daily. Location: face blood sugar diagnostic (BLOOD GLUCOSE TEST) test strip Test blood sugar(s) 1 times daily. Dx: Type 2 DM - Uncontrolled E11.65 Insulin: Yes diltiazem CD (CARDIZEM CD, CARTIA XT) 120 mg 24 hr capsule Take 1 capsule by mouth once daily. losartan (COZAAR) 25 mg tablet Take 1 tablet by mouth once daily. isosorbide mononitrate ER (IMDUR) 30 mg 24 hr tablet Take 1 tablet by mouth once daily. insulin glargine (BASAGLAR KWIKPEN U-100 INSULIN) 100 unit/mL (3 mL) inpn Inject 10 Units subcutaneously daily at bedtime. ferrous sulfate (IRON) 325 mg (65 mg iron) tablet Take 325 mg by mouth twice daily. COMPOUNDED PRESCRIPTION kyloic Cholesterol 104 cholecalciferol (VITAMIN D-3) 5,000 unit tab Take 5,000 Units by mouth twice daily. amLODIPine (NORVASC) 5 mg tablet Take 1 tablet by mouth once daily. ranitidine (ZANTAC) 150 mg tablet Take 1 tablet by mouth daily at bedtime. furosemide (LASIX) 40 mg tablet Take 1 tablet by mouth once daily. clopidogrel (PLAVIX) 75 mg tablet Take 1 tablet by mouth once daily. potassium chloride (KLOR-CON 10) 10 mEq tablet Take 1 tablet by mouth once daily. HYDROcodone-acetaminophen (NORCO) 5-325 mg per tablet Take 1 tablet by mouth every 6 hours as needed for Pain for up to 30 days. predniSONE (DELTASONE) 20 mg tablet Take 2 tablets by mouth once daily for 10 days. cetirizine HCl (ZYRTEC) 10 mg chewable tablet Take 10 mg by mouth once daily. ezetimibe (ZETIA) 10 mg tablet Take 1 tablet by mouth once daily. blood sugar diagnostic (BLOOD GLUCOSE TEST) test strip Use once daily to test blood sugar in the morning TRUE METRIX GLUCOSE METER misc 1 Each as directed. metoprolol tartrate, short acting, (LOPRESSOR) 25 mg tablet TAKE 1/2 (ONE-HALF) OF A TABLET BY MOUTH TWICE DAILY KLOR-CON M10 10 mEq tablet Take 10 mEq by mouth once daily. Blood-Glucose Meter (FREESTYLE LITE METER) monitoring kit 1 Each as directed. Lancets lancets Use as instructed gemfibrozil (LOPID) 600 mg tablet Take 1 tablet by mouth twice daily. VIT C/VIT E/LUTEIN/MIN/OMEGA-3 (OCUVITE ORAL) Take by mouth. COMPOUNDED PRESCRIPTION Nature's way Kidney Bladder COMPOUNDED PRESCRIPTION Nature's Way Garlic Parsley triamcinolone acetonide (KENALOG) 0.1 % cream Apply 1 application to affected area twice daily as needed (rash). Apply sparingly to area for rash/itching. CHOLECALCIFEROL, VITAMIN D3, (VITAMIN D3 ORAL) Take 600 mg by mouth once daily. coenzyme Q10 (COQ-10) 100 mg cap Take 1 capsule by mouth. ONE DAILY MULTI-VITAMIN ORAL TAB Take one(1) tablet daily. CALTRATE-600 PLUS VITAMIN D3 600 MG-200 UNIT ORAL TAB TAKE TWO TABLETS DAILY. Review of Systems: The remainder of the review of systems is negative. PE: 08/07/18 1142 BP: 128/60 Pulse: 72 Resp: 20 Temp: 36.4 ?C (97.5 ?F) TempSrc: Left Tympanic Weight: 80.7 kg (178 lb) Gen: AANDO, NAD, non-toxic appearing, Pleasant, cooperative HEENT: NT/AC, PERRLA, EOMs intact b/l, nares clear and patent b/l, pharynx without erythema, exudate or lesions. Uvula midline. MMM Neck: supple, No cervical LAD, no thyromegaly, no carotid bruits CV: RRR, normal S1S2, 2/6 RUSB murmurs, no gallops, no rubs, Pulses 2+ and symmetric in UE and LE b/l Lungs: normal respiratory effort, CTA b/l, no wheezing or rhonchi or rales Abd: soft, NT, ND, +BS, no hepatosplenomegaly MS: Neuro: CN II-XII intact b/l, strength 5/5 b/l UE and LE, DTRs 2/4 UE and LE Skin: warm, dry, intact, No rashes or lesions on exposed skin. Foot exam: right mid foot erythema and mild swelling without signs of infection, trace edema ASSESSMENT/PLAN: 1. Controlled type 2 diabetes mellitus without complication, with long-term current use of insulin ([facility]) - ICD9: 250.00, V58.67, ICD10: E11.9, Z79.4 (primary diagnosis) Controlled. - Continue current medications - Blood glucose monitoring on a once a day schedule - HGB A1C 2. Foot pain, right - ICD9: 729.5, ICD10: M79.671 - likely secondary to gout, rx as below, f/u for other testing with xray and labs if doesn't improve - HYDROCODONE 5 MG-ACETAMINOPHEN 325 MG TABLET - PREDNISONE 20 MG TABLET 3. Acute gout of right foot, unspecified cause - ICD9: 274.01, ICD10: M10.9 - see above - HYDROCODONE 5 MG-ACETAMINOPHEN 325 MG TABLET - PREDNISONE 20 MG TABLET 4. Iron deficiency anemia due to chronic blood loss - ICD9: 280.0, ICD10: D50.0 - recheck labs at next OFFICE VISIT, continue iron supplement - CBC - COMP METABOLIC PANEL - IRON + TIBC - FERRITIN BLD 5. Dyslipidemia - ICD9: 272.4, ICD10: E78.5 - good control - Encouraged following a low fat, low cholesterol diet. - Discussed the benefits of regular aerobic exercise and weight loss. 6. CKD (chronic kidney disease) stage 3, GFR 30-59 ml/min ([facility]) - ICD9: 585.3, ICD10: N18.3 - stable 7. Essential hypertension, benign - ICD9: 401.1, ICD10: I10 - good control - Continue current medication(s) - Encouraged dietary sodium restriction/DASH diet - Recommended regular aerobic exercise. - Recommend home blood pressure monitoring, to bring results in on next visit - Goal of BP <130/80 8. Fatigue, unspecified type - ICD9: 780.79, ICD10: R53.83 - see above, multifactorial, stable Samson Ragsdale DO To ER if develops chest pain, shortness of breath, or severe worsening of symptoms. Discussed risks, benefits, alternatives, and potential side effects of medications. Patient expressed understanding and agreed with the plan. Samson Ragsdale DO [address] [place] [address] Referring Provider: SAMSON RAGSDALE [[id number]] Allergies As of Date: 08/07/2018 Noted Allergy Reaction ATORVASTATIN 10/18/2017 16 - Unknown CRESTOR (ROSUVASTATIN CALCIUM) 04/24/2013 14 - Other: See Comments Comments: Muscle pain GLUCOSAMINE 06/27/2017 16 - Unknown Comments: Nerve pain MOTRIN (IBUPROFEN) 01/19/2006 2 - Rash PRAVASTATIN 02/19/2013 14 - Other: See Comments Comments: muscle aches TIFVUDO-RAP-[id number] REDUCTASE INHIBIT*10/09/2014 14 - Other: See Comments Comments: myalgia Date Reviewed: 08/07/2018 Reviewed by: Shila Hernández LPN - Fully Assessed Reason for Visit: Follow Up [171] Cmt: 3 months Primary Visit Diagnosis:Controlled type 2 diabetes mellitus without complication, with long-term current use of insulin ([facility]) [E11.9, Z79.4] Other Visit Diagnoses:Foot pain, right [M79.671] Acute gout of right foot, unspecified cause [M10.9] Iron deficiency anemia due to chronic blood loss [D50.0] Dyslipidemia [E78.5] CKD (chronic kidney disease) stage 3, GFR 30-59 ml/min ([facility]) [N18.3] Essential hypertension, benign [I10] Fatigue, unspecified type [R53.83] Order(s):HYDROcodone-acetaminophen (NORCO) 5-325 mg per tabletTake 1 tablet by mouth every 6 hours as needed for Pain for up to 30 days.Disp: 60 tabletRfl: 0 predniSONE (DELTASONE) 20 mg tabletTake 2 tablets by mouth once daily for 10 days.Disp: 20 tabletRfl: 1 CBC [SQCBC] Order #: [id number] FUTURE COMP METABOLIC PANEL [SQCMP] Order #: [id number] FUTURE IRON + TIBC [SQIRON] Order #: [id number] FUTURE FERRITIN BLD [SQFERR] Order #: [id number] FUTURE HGB A1C [[id number]] Order #: [id number] FUTURE Prescriptions as of 08/07/2018 Sig: PEN NEEDLE, DIABETIC 32 GAUGE* Use once daily with Lantus as* OMEGA 3 ORAL Take by mouth. HYDROCORTISONE 2.5 % TOPICAL * Apply 1 application to affect* BLOOD SUGAR DIAGNOSTIC STRIPS Test blood sugar(s) 1 times d* DILTIAZEM SR 120 MG 24 HR CAP Take 1 capsule by mouth once * LOSARTAN 25 MG TABLET Take 1 tablet by mouth once d* ISOSORBIDE MONONITRATE ER 30 * Take 1 tablet by mouth once d* INSULIN GLARGINE (U-100) 100 * Inject 10 Units subcutaneousl* FERROUS SULFATE 325 MG (65 MG* Take 325 mg by mouth twice da* COMPOUNDED PRESCRIPTION kyloic Cholesterol 104 CHOLECALCIFEROL (VITAMIN D3) * Take 5,000 Units by mouth twi* AMLODIPINE 5 MG TABLET Take 1 tablet by mouth once d* RANITIDINE 150 MG TABLET Take 1 tablet by mouth daily * FUROSEMIDE 40 MG TABLET Take 1 tablet by mouth once d* CLOPIDOGREL 75 MG TABLET Take 1 tablet by mouth once d* POTASSIUM CHLORIDE ER 10 MEQ * Take 1 tablet by mouth once d* HYDROCODONE 5 MG-ACETAMINOPHE* Take 1 tablet by mouth every * PREDNISONE 20 MG TABLET Take 2 tablets by mouth once * CETIRIZINE 10 MG CHEWABLE TAB* Take 10 mg by mouth once marvin* BLOOD SUGAR DIAGNOSTIC STRIPS Use once daily to test blood * TRUE METRIX GLUCOSE METER 1 Each as directed. METOPROLOL TARTRATE 25 MG TAB* TAKE 1/2 (ONE-HALF) OF A TABL* KLOR-CON M10 MEQ TABLET,EXTEN* Take 10 mEq by mouth once felice* BLOOD-GLUCOSE METER KIT 1 Each as directed. LANCETS Use as instructed GEMFIBROZIL 600 MG TABLET Take 1 tablet by mouth twice * OCUVITE ORAL Take by mouth. COMPOUNDED PRESCRIPTION Nature's way Kidney Bladder COMPOUNDED PRESCRIPTION Nature's Way Garlic [place]ley TRIAMCINOLONE ACETONIDE 0.1 %* Apply 1 application to affect* VITAMIN D3 ORAL Take 600 mg by mouth once felice* COENZYME Q10 100 MG CAPSULE Take 1 capsule by mouth. ONE DAILY MULTI-VITAMIN TABLET Take one(1) tablet daily. CALTRATE-600 PLUS VITAMIN D3 * TAKE TWO TABLETS DAILY. Medication notes this encounter EZETIMIBE 10 MG TABLET >> Shila Hernández LPN 08/07/2018 11:45 AM >> SHILA HERNÁNDEZ LPN TueAug 07, 2018 11:45 AM finished Problem List As Of Date 08/07/2018 Noted Resolved GENERAL OSTEOARTHROSIS [M15.9] DIAPHRAGMATIC HERNIA [K44.9] ASCVD [I25.10] More... 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] INVALID FOR* L-S Radiculopathy [M54.17] INVALID FOR* Thoracic or Lumbosacral Neuritis or Radiculitis*INVALID FOR* Glucose intolerance (pre-diabetes) [R73.03] INVALID FOR*07/04/2014 CAD (coronary artery disease) [I25.10] INVALID FOR* Gout [M10.9] INVALID FOR* AAA (abdominal aortic aneurysm) [I71.4] INVALID FOR* Diabetes mellitus type 2, uncontrolled, without*INVALID FOR* Stented coronary artery [Z95.5] INVALID FOR* Fatigue [R53.83] INVALID FOR* Absolute anemia [D64.9] INVALID FOR* CKD (chronic kidney disease) stage 3, GFR 30-59*INVALID FOR* Diarrhea [R19.7] INVALID FOR* CKD (chronic kidney disease) stage 4, GFR 15-29*INVALID FOR* Coronary artery 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 rich plaqu*INVALID FOR* Low blood potassium [E87.6] INVALID FOR* Uncontrolled type 2 diabetes mellitus without c*INVALID FOR* Controlled type 2 diabetes mellitus without com*INVALID FOR* Hypoalbuminemia [E88.09] INVALID FOR* Generalized abdominal pain [R10.84] INVALID FOR* Blood in stool [K92.1] INVALID FOR* 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 PREDNISONE 20 MG TABLET 20 t* 1 08/07/2018 08/17/2018 Route: ORAL Sig: Take 2 tablets by mouth once daily for 10 days. Medications Discontinued During This Encounter HYDROcodone-acetaminophen (NORCO) 5-* 60 t* 0 11/09/2017 08/07/2018 Class: Print RX Route: ORAL Sig: Take 1 tablet by mouth every 6 hours as needed for Pain for up to 30 days. Earliest Fill Date: 11/09/17 Disc: Reason for discontinue is not on file. predniSONE (DELTASONE) 20 mg tablet 10 t* 0 07/07/2018 08/07/2018 Route: ORAL Sig: Take 2 tablets by mouth once daily for 5 days. Disc: Reason for discontinue is not on file. ezetimibe (ZETIA) 10 mg tablet 90 t* 3 10/31/2017 08/07/2018 Route: ORAL Sig: Take 1 tablet by mouth once daily. Disc: Reason for discontinue is not on file. Encounter Status:Closed by SAMSON RAGSDALE DO on 08/07/18 COMP METABOLIC PANEL Collected: 08/02/2018 Status: F Source: [facility] [facility] TYPE CODE TESTS RESULT OUT OF REFERENCE UNITS RANGE LAB TP 6.3-8.0 g/dL Protein, Total 6.9 LAB ALB 3.9-4.9 g/dL Albumin 4.0 LAB CA 8.5-10.2 mg/dL Calcium, Total 9.4 LAB TBIL 0.2-1.3 mg/dL Bilirubin, Total 0.2 LAB ALKP 38-113 U/L Alkaline Phosphatase 93 LAB AST 14-40 U/L AST 18 LAB GLU 74-99 mg/dL Glucose 87 Result Comment: The English Diabetes Association (ADA) provides guidance for cutoff values for fasting glucose and random glucose. The ADA defines fasting as no caloric intake for at least 8 hours. Fas ting plasma glucose results between 100 to 125 mg/dL indicate increased risk for diabetes (prediabetes). Fasting plasma glucose results greater than or equal to 126 mg/dL meet the criteria for diagnosis of diabetes. In the absence of unequivocal hyperglycemia, results should be confirmed by repeat testing. In a patient with classic symptoms of hyperglycemia or hyperglycemic crisis, random plasma glucose results greater than or equal to 200 mg/dL meet the criteria for diagnosis of diabetes. Reference: Standards of Medical Care in Diabetes 2016, English Diabetes Association. Diabetes Care. 2016.39(Suppl 1). LAB BUN 9-24 mg/dL BUN High 26 LAB CRET 0.73-1.22 mg/dL Creatinine High 1.88 LAB NA 136-144 mmol/L Sodium 142 LAB K 3.7-5.1 mmol/L Potassium 4.4 LAB CL 97-105 mmol/L Chloride 104 LAB CO2 22-30 mmol/L CO2 27 LAB AGAP 9-18 mmol/L Anion Gap 11 LAB ALT 10-54 U/L ALT 11 LAB GFRAA eGFR- Amer. 42 LAB GFRNAA . eGFR-All Other Races 35 Result Comment: eGFR (Estimated GFR) Units of measure: mL/min/1.73 meters squared eGFR is derived from the reexpressed MDRD Study equation using the following parameters: serum creatinine, age, gender and race. The creatinine assay has been calibrated to be traceable to IDMS. An eGFR <60 mL/min/1.73m2 for >3 months is consistent with chronic kidney disease. Refer to KDOQI guidelines for clinical interpretation. In patients with unstable renal function, e.g. those with acute kidney injury, the eGFR may not accurately reflect actual GFR. Performed By: #### CMP, LIPB, PSAS1, HBA1C #### [facility] [address] [place] [id number] LIPID PANEL, BASIC Collected: 08/02/2018 Status: F Source: [place] 3:03 PM [facility] REPOSITORY TYPE CODE TESTS RESULT OUT OF REFERENCE UNITS RANGE LAB CHOL <200 mg/dL Cholesterol 184 Result Comment: <200 mg/dL, Desirable 200-239 mg/dL, Borderline high >239 mg/dL, High LAB TRIGLY <150 mg/dL Triglyceride 95 Result Comment: <150 mg/dL, Normal 150-199 mg/dL, Borderline high 200-499 mg/dL, High >499 mg/dL, Very high LAB HDL >39 mg/dL HDL-Cholesterol 49 Result Comment: 40-59 mg/dL, Acceptable >59 mg/dL, High: Negative risk factor for coronary heart disease <40 mg/dL, Low: Positive risk factor for coronary heart disease LAB LDL <100 mg/dL LDL-Cholesterol High 116 Result Comment: <100 mg/dL, Optimal 100-129 mg/dL, Near optimal/above optimal 130-159 mg/dL, Borderline high 160-189 mg/dL, High >189 mg/dL, Very high Secondary prevention optimal LDL Cholesterol levels are recommended to be < 70 mg/dL LAB NONHDL <130 mg/dL Non HDL High Cholesterol 135 Result Comment: <130 mg/dL, Optimal 130-159 mg/dL, Near optimal/above optimal 160-189 mg/dL, Borderline high 190-219 mg/dL, High >219 mg/dL, Very high Secondary prevention optimal non HDL Cholesterol levels are recommended to be < 100 mg/dL LAB FT hrs Fasting Time 18 LAB VLDL <30 mg/dL VLDL Cholesterol 19 LAB TCHDL <5.10 TC:HDL Ratio 3.76 LAB LDLHDL <2.54 LDL:HDL Ratio 2.37 Result Comment: Reference: 1. National Cholesterol Education Program ATP III Guideline At-A-Glance Quick Desk Reference: National Heart, Lung, and Blood [place]. National Institutes of Health. 2001: NIH Publication No. 01-3305. 2. An International Atherosclerosis Society position paper: global recommendations for the management of dyslipidemia: executive summary, Atherosclerosis. 2014: 232(2):410-413. Performed By: #### CMP, LIPB, PSAS1, HBA1C #### [facility] [employer] [address] [place], [place] [address] PSA, SCREENING Collected: 08/02/2018 Status: F Source: [place] 3:03 PM [facility] REPOSITORY TYPE CODE TESTS RESULT OUT OF REFERENCE UNITS RANGE LAB PSAS 0.00-2.59 ng/mL PSA, Screening 0.03 Result Comment: Total PSA test methodology used is the Electrochemiluminescence Immunoassay. Performed By: #### CMP, LIPB, PSAS1, HBA1C #### [facility] [address] [place], [place] [address] HEMOGLOBIN A1C Collected: 08/02/2018 Status: F Source: [place] 3:03 [facility] REPOSITORY TYPE CODE TESTS RESULT OUT OF REFERENCE UNITS RANGE LAB HGBA1C 4.3-5.6 % High Hemoglobin A1c 5.8 Result Comment: English Diabetes Association guidelines indicate that patients with HgbA1c in the range 5.7-6.4% are at increased risk for development of diabetes, and intervention by lifestyle modification may be beneficial. HgbA1c greater or equal to 6.5% is considered diagnostic of diabetes. LAB HBA0 mg/dL Est. Average Glucose 120 Result Comment: eAG: (Estimated average glucose) is a calculated value from HgbA1c and is guest relations representative of the average blood glucose level in the last 2-3 month period. Performed By: #### CMP, LIPB, PSAS1, HBA1C #### [facility] [address] [place], [place] [address] PROGRESS Observed: 07/10/2018 Status: COMPLETED Source: [place] 1:00 PM [facility] REPOSITORY HNO ID: [id number] Author: Pao Blackwood (Strainer Mill Operator) Stacy Service: (none) Author Type: Nurse Practitioner Type: Progress Notes Filed: 07/10/2018 1:12 PM Note Text: HPI/CC: Abraham Gage is a 78 year old male who presents for follow up UC- cough/wheezing on 07/07/18. Was prescribed doxy and prednisone. Xray was negative. Overall feeling better. Productive cough of yellow. Denies fevers, chills, N/V, change in appetite, ST, H/A. Blood glucose controlled while on prednisone ROS as above, otherwise non-contributory. Reviewed PMHx, PSHx, social Hx, medications and allergies. PHYSICAL EXAMINATION: BP 120/62 Pulse 68 Resp 16 Wt 81.6 kg (180 lb) SpO2 98% BMI 27.37 kg/m? General appearance: Well appearing, alert, in no acute distress, well-hydrated, well nourished. Skin: Skin color, texture, turgor normal, no suspicious rashes or lesions Head: Normocephalic, no masses, lesions, tenderness or abnormalities Eyes: Anicteric sclera. Pupils are equally round and reactive to light. Extraocular movements are intact. Ears: External ears normal, canals clear Nose/Sinuses: Nares normal, septum midline, mucosa normal, no drainage or sinus tenderness Oropharynx: Lips, mucosa, and tongue normal, teeth and gums normal, oropharynx normal Neck: Supple, no adenopathy; thyroid symmetric, normal size, no bruits Lungs: positive findings: wheezing to upper lobes, + moist non-productive cough Heart: RRR without murmur, gallop, or rubs. No ectopy ASSESSMENT/PLAN: 1. Bronchitis - ICD9: 490, ICD10: J40 - continue/complete current treatment - f/u if worse and As scheduled with PCP. SAMUEL Huitron Observed: 07/10/2018 Status: COMPLETED Source: [place] 1:00 PM [facility] REPOSITORY Office Visit (FAMPWS) ABRAHAM GAGE ([id number]) 1940 M Date Time Provider Department 07/10/18 1:00 PM PAO HA (JAIRON) FAMPWS During your visit today, we recorded the following information about you: Pulse Respiration Blood pressure Weight 68/minute 16/minute 120/62 81.6 kg Pao Ha APRN.CNP 07/10/2018 1:12 PM Signed HPI/CC: Abraham Gage is a 78 year old male who presents for follow up UC- cough/wheezing on 07/07/18. Was prescribed doxy and prednisone. Xray was negative. Overall feeling better. Productive cough of yellow. Denies fevers, chills, N/V, change in appetite, ST, H/A. Blood glucose controlled while on prednisone ROS as above, otherwise non-contributory. Reviewed PMHx, PSHx, social Hx, medications and allergies. PHYSICAL EXAMINATION: BP 120/62 Pulse 68 Resp 16 Wt 81.6 kg (180 lb) SpO2 98% BMI 27.37 kg/m? General appearance: Well appearing, alert, in no acute distress, well-hydrated, well nourished. Skin: Skin color, texture, turgor normal, no suspicious rashes or lesions Head: Normocephalic, no masses, lesions, tenderness or abnormalities Eyes: Anicteric sclera. Pupils are equally round and reactive to light. Extraocular movements are intact. Ears: External ears normal, canals clear Nose/Sinuses: Nares normal, septum midline, mucosa normal, no drainage or sinus tenderness Oropharynx: Lips, mucosa, and tongue normal, teeth and gums normal, oropharynx normal Neck: Supple, no adenopathy; thyroid symmetric, normal size, no bruits Lungs: positive findings: wheezing to upper lobes, + moist non-productive cough Heart: RRR without murmur, gallop, or rubs. No ectopy ASSESSMENT/PLAN: 1. Bronchitis - ICD9: 490, ICD10: J40 - continue/complete current treatment - f/u if worse and As scheduled with PCP. Pao Ha APRN.DIP FILLER Referring Provider: HERMINIO NIEVES ([facility]) [[id number]] Allergies As of Date: 07/10/2018 Noted Allergy Reaction ATORVASTATIN 10/18/2017 16 - Unknown CRESTOR (ROSUVASTATIN CALCIUM) 04/24/2013 14 - Other: See Comments Comments: Muscle pain GLUCOSAMINE 06/27/2017 16 - Unknown Comments: Nerve pain MOTRIN (IBUPROFEN) 01/19/2006 2 - Rash PRAVASTATIN 02/19/2013 14 - Other: See Comments Comments: muscle aches DPCULIE-JFW-LXC REDUCTASE INHIBIT*10/09/2014 14 - Other: See Comments Comments: myalgia Date Reviewed: 07/10/2018 Reviewed by: Scott Montano LPN - Fully Assessed Reason for Visit: Recheck [92] Cmt: follow up UC- cough/wheezing Primary Visit Diagnosis:Bronchitis [J40] Prescriptions as of 07/10/2018 Sig: DOXYCYCLINE MONOHYDRATE 100 M* Take 1 tablet by mouth twice * PREDNISONE 20 MG TABLET Take 2 tablets by mouth once * PEN NEEDLE, DIABETIC 32 GAUGE* Use once daily with Lantus as* OMEGA 3 ORAL Take by mouth. HYDROCORTISONE 2.5 % TOPICAL * Apply 1 application to affect* BLOOD SUGAR DIAGNOSTIC STRIPS Test blood sugar(s) 1 times d* DILTIAZEM SR 120 MG 24 HR CAP Take 1 capsule by mouth once * LOSARTAN 25 MG TABLET Take 1 tablet by mouth once d* ISOSORBIDE MONONITRATE ER 30 * Take 1 tablet by mouth once d* INSULIN GLARGINE (U-100) 100 * Inject 10 Units subcutaneousl* FERROUS SULFATE 325 MG (65 MG* Take 325 mg by mouth twice da* CETIRIZINE 10 MG CHEWABLE TAB* Take 10 mg by mouth once marvin* COMPOUNDED PRESCRIPTION kyloic Cholesterol 104 CHOLECALCIFEROL (VITAMIN D3) * Take 5,000 Units by mouth twi* AMLODIPINE 5 MG TABLET Take 1 tablet by mouth once d* RANITIDINE 150 MG TABLET Take 1 tablet by mouth daily * EZETIMIBE 10 MG TABLET Take 1 tablet by mouth once d* BLOOD SUGAR DIAGNOSTIC STRIPS Use once daily to test blood * TRUE METRIX GLUCOSE METER 1 Each as directed. METOPROLOL TARTRATE 25 MG TAB* TAKE 1/2 (ONE-HALF) OF A TABL* KLOR-CON M10 MEQ TABLET,EXTEN* Take 10 mEq by mouth once felice* BLOOD-GLUCOSE METER KIT 1 Each as directed. LANCETS Use as instructed GEMFIBROZIL 600 MG TABLET Take 1 tablet by mouth twice * FUROSEMIDE 40 MG TABLET Take 1 tablet by mouth once d* CLOPIDOGREL 75 MG TABLET Take 1 tablet by mouth once d* POTASSIUM CHLORIDE ER 10 MEQ * Take 1 tablet by mouth once d* OCUVITE ORAL Take by mouth. COMPOUNDED PRESCRIPTION Nature's way Kidney Bladder COMPOUNDED PRESCRIPTION Nature's Way Garlic [place]ley TRIAMCINOLONE ACETONIDE 0.1 %* Apply 1 application to affect* VITAMIN D3 ORAL Take 600 mg by mouth once felice* COENZYME Q10 100 MG CAPSULE Take 1 capsule by mouth. ONE DAILY MULTI-VITAMIN TABLET Take one(1) tablet daily. CALTRATE-600 PLUS VITAMIN D3 * TAKE TWO TABLETS DAILY. Problem List As Of Date 07/10/2018 Noted Resolved GENERAL OSTEOARTHROSIS [M15.9] DIAPHRAGMATIC HERNIA [K44.9] ASCVD [I25.10] More... 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] INVALID FOR* L-S Radiculopathy [M54.17] INVALID FOR* Thoracic or Lumbosacral Neuritis or Radiculitis*INVALID FOR* Glucose intolerance (pre-diabetes) [R73.03] INVALID FOR*07/04/2014 CAD (coronary artery disease) [I25.10] INVALID FOR* Gout [M10.9] INVALID FOR* AAA (abdominal aortic aneurysm) [I71.4] INVALID FOR* Diabetes mellitus type 2, uncontrolled, without*INVALID FOR* Stented coronary artery [Z95.5] INVALID FOR* Fatigue [R53.83] INVALID FOR* Absolute anemia [D64.9] INVALID FOR* CKD (chronic kidney disease) stage 3, GFR 30-59*INVALID FOR* Diarrhea [R19.7] INVALID FOR* CKD (chronic kidney disease) stage 4, GFR 15-29*INVALID FOR* Coronary artery 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 rich plaqu*INVALID FOR* Low blood potassium [E87.6] INVALID FOR* Uncontrolled type 2 diabetes mellitus without c*INVALID FOR* Controlled type 2 diabetes mellitus without com*INVALID FOR* Hypoalbuminemia [E88.09] INVALID FOR* Generalized abdominal pain [R10.84] INVALID FOR* Blood in stool [K92.1] INVALID FOR* 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 Disc: Reason for discontinue is not on file. Encounter Status:Closed by PAO HA CNP on 07/10/18 XR CHEST 2V FRONTAL/LAT Observed: 07/07/2018 Status: F Source: [place] 4:04 PM [facility] REPOSITORY * * *Final Report* * * DATE OF EXAM: Jul 07 2018 4:04PM WOX [id number] - XR CHEST 2V FRONTAL/LAT / PROCEDURE REASON: Wheeze * * * * Physician Interpretation * * * * EXAMINATION: CHEST RADIOGRAPH (2 VIEW FRONTAL and LATERAL) CLINICAL HISTORY: Wheeze MQ: XC2_5 Comparison: 04/18/2018 RESULT: Lines, tubes, and devices: None. Lungs and pleura: No focal consolidation, significant pleural effusion or pneumothorax. Minimal left basilar atelectasis. Cardiomediastinal silhouette: Stable. Sternotomy wires. Other: No acute osseous abnormality. Degenerative changes are evident in the thoracic spine. IMPRESSION: No acute radiographic abnormality is evident. 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: JASON Transcribe Date/Time: Jul 07 2018 4:05P Dictated by : WILLEM CHAVARRIA MD This examination was interpreted and the report reviewed and electronically signed by: WILLEM CHAVARRIA MD on Jul 07 2018 4:06PM EST [id number] PROGRESS Observed: 07/07/2018 Status: COMPLETED Source: [place] 3:58 PM [facility] REPOSITORY HNO ID: [id number] Author: Aster Herman Service: (none) Author Type: (none) Type: Progress Notes Filed: 07/07/2018 4:04 PM Note Text: Radiology Service Progress Note PATIENT NAME: Abraham Gage DATE OF SERVICE: July 07, 2018 TIME: 3:58 PM PATIENT IDENTITY VERIFICATION COMPLETED USING TWO (2) METHODS: Patient confirmed name verbally and Date of . PATIENT GENDER DATA: Male PATIENT RELEVANT IMPLANT DATA REVIEWED: Not Applicable RADIOLOGY DEPARTMENT: General X-ray: Exam(s) Completed: Chest X-Ray PERIPHERAL IV DATA: Not applicable SIGNED BY: Aster Palencia Rt July 07, 2018 3:58 PM PROGRESS Observed: 07/07/2018 Status: COMPLETED Source: [place] 3:52 PM [facility] REPOSITORY HNO ID: [id number] Author: Herminio Nieves Service: (none) Author Type: Nurse Practitioner Type: Progress Notes Filed: 07/07/2018 4:57 PM Note Text: Subjective HPI HPI Abraham Gage is a 78 year old male who presents today for CC of cough, wheeze. This started 4 days ago. Has tried otc medication with mild relief. Symptoms are worsened by nothing specific. Risk factors hx of DM, renal disease, cvd. .Patient presents with: Cough Wheezing PAST MEDICAL HISTORY Diagnosis Date - Abdominal aneurysm without mention of rupture 09/2015 4.15 cm - Acute gastritis without mention of hemorrhage 04/26/2017 EGD by Cebul - AMI (acute myocardial infarction) (HCC) 07/03/2013 - Carotid atherosclerosis 05/2014 - CKD stage G3b/A2, GFR 30-44 and albumin creatinine ratio 30-299 mg/g (HCC) AVOID NEPHROTOXIC MEDICATIONS - Diabetes mellitus type 2, uncontrolled, without complications (HCC) - Diaphragmatic hernia without mention of obstruction or gangrene - Diverticulosis of colon (without mention of hemorrhage) 04/26/2017 colonoscopy by Cebul - Esophagitis - Generalized osteoarthrosis, unspecified site - Internal hemorrhoid 04/26/2017 colonoscopy by Cebul - Iron deficiency anemia - Malignant neoplasm of prostate (HCC) - Other and unspecified hyperlipidemia - Unspecified cardiovascular disease 1994 CABG - Unspecified constipation - 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 Nolan Mastersonbul - EGD W/O BRSH SPECIMEN W/BX 07/10/07 - OPEN CORONARY ENDARTERECTOMY 07/03/2013 Angioplasty Xience stent to L circumflex - PAST SURGICAL HISTORY OF 01/26/08 stent placement ramus and prox ramus - PAST SURGICAL HISTORY OF heart stents - REMV PROSTATE,PERINEAL,RADICAL 2000 Prostatectomy, radical- Dr. Ojeda - REPAIR ING HERNIA,5+Y/O,REDUCIBL left Hernia repair, inguinal - SCREENING COLONSCOPY NOT HIGH RISK 04/26/2017 Dr. Yousif Triana; next screening colonoscopy in 10yrs, [facility] ALLERGIES Atorvastatin; Crestor [Rosuvastatin Calcium]; Glucosamine; Motrin [Ibuprofen]; Pravastatin; Mdypyfl-Ghw-Oyg Reductase Inhibitors MEDICATIONS Insulin Hume, Disposable, (BD ULTRA-FINE BENNY PEN NEEDLE) 32 gauge x 5/32 ndle Use once daily with Lantus as directed flaxseed oil (OMEGA 3 ORAL) Take by mouth. hydrocortisone 2.5 % cream Apply 1 application to affected area twice daily. Location: face blood sugar diagnostic (BLOOD GLUCOSE TEST) test strip Test blood sugar(s) 1 times daily. Dx: Type 2 DM - Uncontrolled E11.65 Insulin: Yes diltiazem CD (CARDIZEM CD, CARTIA XT) 120 mg 24 hr capsule Take 1 capsule by mouth once daily. losartan (COZAAR) 25 mg tablet Take 1 tablet by mouth once daily. isosorbide mononitrate ER (IMDUR) 30 mg 24 hr tablet Take 1 tablet by mouth once daily. insulin glargine (BASAGLAR KWIKPEN U-100 INSULIN) 100 unit/mL (3 mL) inpn Inject 10 Units subcutaneously daily at bedtime. ferrous sulfate (IRON) 325 mg (65 mg iron) tablet Take 325 mg by mouth twice daily. cetirizine HCl (ZYRTEC) 10 mg chewable tablet Take 10 mg by mouth once daily. COMPOUNDED PRESCRIPTION kyloic Cholesterol 104 cholecalciferol (VITAMIN D-3) 5,000 unit tab Take 5,000 Units by mouth twice daily. amLODIPine (NORVASC) 5 mg tablet Take 1 tablet by mouth once daily. ranitidine (ZANTAC) 150 mg tablet Take 1 tablet by mouth daily at bedtime. ezetimibe (ZETIA) 10 mg tablet Take 1 tablet by mouth once daily. benzonatate (TESSALON PERLES) 100 mg capsule Take 1 capsule by mouth three times daily as needed for Cough. blood sugar diagnostic (BLOOD GLUCOSE TEST) test strip Use once daily to test blood sugar in the morning TRUE METRIX GLUCOSE METER misc 1 Each as directed. metoprolol tartrate, short acting, (LOPRESSOR) 25 mg tablet TAKE 1/2 (ONE-HALF) OF A TABLET BY MOUTH TWICE DAILY KLOR-CON M10 10 mEq tablet Take 10 mEq by mouth once daily. Blood-Glucose Meter (FREESTYLE LITE METER) monitoring kit 1 Each as directed. Lancets lancets Use as instructed gemfibrozil (LOPID) 600 mg tablet Take 1 tablet by mouth twice daily. furosemide (LASIX) 40 mg tablet Take 1 tablet by mouth once daily. clopidogrel (PLAVIX) 75 mg tablet Take 1 tablet by mouth once daily. potassium chloride (KLOR-CON 10) 10 mEq tablet Take 1 tablet by mouth once daily. VIT C/VIT E/LUTEIN/MIN/OMEGA-3 (OCUVITE ORAL) Take by mouth. COMPOUNDED PRESCRIPTION Nature's way Kidney Bladder COMPOUNDED PRESCRIPTION Nature's Way Garlic Parsley triamcinolone acetonide (KENALOG) 0.1 % cream Apply 1 application to affected area twice daily as needed (rash). Apply sparingly to area for rash/itching. CHOLECALCIFEROL, VITAMIN D3, (VITAMIN D3 ORAL) Take 600 mg by mouth once daily. coenzyme Q10 (COQ-10) 100 mg cap Take 1 capsule by mouth. ONE DAILY MULTI-VITAMIN ORAL TAB Take one(1) tablet daily. CALTRATE-600 PLUS VITAMIN D3 600 MG-200 UNIT ORAL TAB TAKE TWO TABLETS DAILY. FAMILY HISTORY Problem Relation Age of Onset - Hypertension Father - COPD Father - Heart Mother Social History Substance Use Topics - Smoking status: Former Smoker Packs/day: 2.00 Years: 20.00 Types: Cigarettes, Pipe, Cigars - Smokeless tobacco: Never Used Comment: quit in 1987 - Alcohol use Yes Comment: rarely Review of Systems Constitutional: Negative for chills, fever and weight loss. HENT: Positive for congestion. Negative for ear pain, nosebleeds and sore throat. Respiratory: Positive for cough, shortness of breath and wheezing. Cardiovascular: Negative for chest pain. Musculoskeletal: Negative for neck pain. Objective Blood pressure 120/60, pulse 73, temperature 36.8 ?C (98.2 ?F), temperature source Left Tympanic, resp. rate 22, weight 79.8 kg (176 lb), SpO2 95 %. Component Latest Ref Rng AND Units 04/18/2018 Protein, Total 6.3 - 8.0 g/dL 7.8 Albumin 3.9 - 4.9 g/dL 4.4 Calcium 8.5 - 10.2 mg/dL 9.7 Bilirubin, Total 0.2 - 1.3 mg/dL 0.2 Alkaline Phosphatase 36 - 108 U/L 94 AST 14 - 40 U/L 19 Glucose 74 - 99 mg/dL 87 BUN 9 - 24 mg/dL 36 (H) Creatinine 0.73 - 1.22 mg/dL 2.08 (H) Sodium 136 - 144 mmol/L 140 Potassium 3.7 - 5.1 mmol/L 4.1 Chloride 97 - 105 mmol/L 99 CO2 22 - 30 mmol/L 24 Anion Gap 9 - 18 mmol/L 17 ALT 10 - 54 U/L 8 (L) eGFR- 38 eGFR-All Other Races . 31 Physical Exam Constitutional: He is oriented to person, place, and time. Non-toxic appearance. He does not have a sickly appearance. He appears distressed (initially, after nebulizer treatment no distress. ). HENT: Head: Normocephalic and atraumatic. Nose: Nose normal. Eyes: Pupils are equal, round, and reactive to light. Conjunctivae and lids are normal. Right eye exhibits no discharge. Left eye exhibits no discharge. No scleral icterus. Neck: Trachea normal and normal range of motion. Neck supple. Cardiovascular: Normal rate, regular rhythm and normal heart sounds. Pulmonary/Chest: Accessory muscle usage (prior to treatment) present. He has wheezes (scattered throughout). He has rhonchi (scattered throughout). Lungs mostly clear and respirations easy after nebulizer treatment Lymphadenopathy: He has no cervical adenopathy. Neurological: He is alert and oriented to person, place, and time. Skin: No rash noted. He is not diaphoretic. ASSESSMENT/PLAN: 1. Acute bronchitis, unspecified organism - ICD9: 466.0, ICD10: J20.9 (primary diagnosis) -risk factors - diabetes, age, renal disease, heart disease - Discussed supportive care, given educational handout - Limit exposure to smoke and other inhaled irritants - Discussed possible red flags and when to seek medical attention - Follow up in 3-5 days or sooner if no better or worse -If you experience chest pain/shortness of breath go to ER -will schedule with primary care - ALBUTEROL SULFATE 2.5 MG/3 ML (0.083 %) SOLUTION FOR NEBULIZATION - XR CHEST 2V FRONTAL/LAT 2. Wheeze - ICD9: 786.07, ICD10: R06.2 Improvement noted in respirations and adventitious breath sounds after nebulizer treatment - ALBUTEROL SULFATE 2.5 MG/3 ML (0.083 %) SOLUTION FOR NEBULIZATION - XR CHEST 2V FRONTAL/LAT - Dictated by : WILLEM CHAVARRIA MD Impression IMPRESSION: No acute radiographic abnormality is evident. Herminio Nieves APRN.CNP CNOV Observed: 07/07/2018 Status: COMPLETED Source: [place] 3:15 PM [facility] REPOSITORY Office Visit (WSTR) ABRAHAM GAGE ([id number]) 1940 M Date Time Provider Department 07/07/18 3:15 PM HERMINIO NIEVES (JAIRON) [facility] During your visit today, we recorded the following information about you: Temperature Pulse Respiration Blood pressure 98.2 degrees 73/minute 22/minute 120/60 Weight 79.8 kg Herminio Nieves APRN.CNP 07/07/2018 4:57 PM Signed Subjective HPI HPI Abraham Jordan Gage is a 78 year old male who presents today for CC of cough, wheeze. This started 4 days ago. Has tried otc medication with mild relief. Symptoms are worsened by nothing specific. Risk factors hx of DM, renal disease, cvd. .Patient presents with: Cough Wheezing PAST MEDICAL HISTORY Diagnosis Date - Abdominal aneurysm without mention of rupture 09/2015 4.15 cm - Acute gastritis without mention of hemorrhage 04/26/2017 EGD by Kong - AMI (acute myocardial infarction) ([facility]) 07/03/2013 - Carotid atherosclerosis 05/2014 - CKD stage G3b/A2, GFR 30-44 and albumin creatinine ratio 30-299 mg/g (HCC) AVOID NEPHROTOXIC MEDICATIONS - Diabetes mellitus type 2, uncontrolled, without complications (HCC) - Diaphragmatic hernia without mention of obstruction or gangrene - Diverticulosis of colon (without mention of hemorrhage) 04/26/2017 colonoscopy by Kong - Esophagitis - Generalized osteoarthrosis, unspecified site - Internal hemorrhoid 04/26/2017 colonoscopy by Alejabul - Iron deficiency anemia - Malignant neoplasm of prostate (HCC) - Other and unspecified hyperlipidemia - Unspecified cardiovascular disease 1994 CABG - Unspecified constipation - 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 Nolan Triana - EGD W/O RUST SPECIMEN W/BX 07/10/07 - OPEN CORONARY ENDARTERECTOMY 07/03/2013 Angioplasty Xience stent to L circumflex - PAST SURGICAL HISTORY OF 01/26/08 stent placement ramus and prox ramus - PAST SURGICAL HISTORY OF heart stents - REMV PROSTATE,PERINEAL,RADICAL 2000 Prostatectomy, radical- Dr. Ojeda - REPAIR ING HERNIA,5+Y/O,REDUCIBL left Hernia repair, inguinal - SCREENING COLONSCOPY NOT HIGH RISK 04/26/2017 Dr. Yousif Triana; next screening colonoscopy in 10yrs, [facility] ALLERGIES Atorvastatin; Crestor [Rosuvastatin Calcium]; Glucosamine; Motrin [Ibuprofen]; Pravastatin; Eduyfsw-Shk-Xeg Reductase Inhibitors MEDICATIONS Insulin Hume, Disposable, (BD ULTRA-FINE BENNY PEN NEEDLE) 32 gauge x 5/32 ndle Use once daily with Lantus as directed flaxseed oil (OMEGA 3 ORAL) Take by mouth. hydrocortisone 2.5 % cream Apply 1 application to affected area twice daily. Location: face blood sugar diagnostic (BLOOD GLUCOSE TEST) test strip Test blood sugar(s) 1 times daily. Dx: Type 2 DM - Uncontrolled E11.65 Insulin: Yes diltiazem CD (CARDIZEM CD, CARTIA XT) 120 mg 24 hr capsule Take 1 capsule by mouth once daily. losartan (COZAAR) 25 mg tablet Take 1 tablet by mouth once daily. isosorbide mononitrate ER (IMDUR) 30 mg 24 hr tablet Take 1 tablet by mouth once daily. insulin glargine (BASAGLAR KWIKPEN U-100 INSULIN) 100 unit/mL (3 mL) inpn Inject 10 Units subcutaneously daily at bedtime. ferrous sulfate (IRON) 325 mg (65 mg iron) tablet Take 325 mg by mouth twice daily. cetirizine HCl (ZYRTEC) 10 mg chewable tablet Take 10 mg by mouth once daily. COMPOUNDED PRESCRIPTION kyloic Cholesterol 104 cholecalciferol (VITAMIN D-3) 5,000 unit tab Take 5,000 Units by mouth twice daily. amLODIPine (NORVASC) 5 mg tablet Take 1 tablet by mouth once daily. ranitidine (ZANTAC) 150 mg tablet Take 1 tablet by mouth daily at bedtime. ezetimibe (ZETIA) 10 mg tablet Take 1 tablet by mouth once daily. benzonatate (TESSALON PERLES) 100 mg capsule Take 1 capsule by mouth three times daily as needed for Cough. blood sugar diagnostic (BLOOD GLUCOSE TEST) test strip Use once daily to test blood sugar in the morning TRUE METRIX GLUCOSE METER misc 1 Each as directed. metoprolol tartrate, short acting, (LOPRESSOR) 25 mg tablet TAKE 1/2 (ONE-HALF) OF A TABLET BY MOUTH TWICE DAILY KLOR-CON M10 10 mEq tablet Take 10 mEq by mouth once daily. Blood-Glucose Meter (FREESTYLE LITE METER) monitoring kit 1 Each as directed. Lancets lancets Use as instructed gemfibrozil (LOPID) 600 mg tablet Take 1 tablet by mouth twice daily. furosemide (LASIX) 40 mg tablet Take 1 tablet by mouth once daily. clopidogrel (PLAVIX) 75 mg tablet Take 1 tablet by mouth once daily. potassium chloride (KLOR-CON 10) 10 mEq tablet Take 1 tablet by mouth once daily. VIT C/VIT E/LUTEIN/MIN/OMEGA-3 (OCUVITE ORAL) Take by mouth. COMPOUNDED PRESCRIPTION Nature's way Kidney Bladder COMPOUNDED PRESCRIPTION Nature's Way Garlic Parsley triamcinolone acetonide (KENALOG) 0.1 % cream Apply 1 application to affected area twice daily as needed (rash). Apply sparingly to area for rash/itching. CHOLECALCIFEROL, VITAMIN D3, (VITAMIN D3 ORAL) Take 600 mg by mouth once daily. coenzyme Q10 (COQ-10) 100 mg cap Take 1 capsule by mouth. ONE DAILY MULTI-VITAMIN ORAL TAB Take one(1) tablet daily. CALTRATE-600 PLUS VITAMIN D3 600 MG-200 UNIT ORAL TAB TAKE TWO TABLETS DAILY. FAMILY HISTORY Problem Relation Age of Onset - Hypertension Father - COPD Father - Heart Mother Social History Substance Use Topics - Smoking status: Former Smoker Packs/day: 2.00 Years: 20.00 Types: Cigarettes, Pipe, Cigars - Smokeless tobacco: Never Used Comment: quit in 1987 - Alcohol use Yes Comment: rarely Review of Systems Constitutional: Negative for chills, fever and weight loss. HENT: Positive for congestion. Negative for ear pain, nosebleeds and sore throat. Respiratory: Positive for cough, shortness of breath and wheezing. Cardiovascular: Negative for chest pain. Musculoskeletal: Negative for neck pain. Objective Blood pressure 120/60, pulse 73, temperature 36.8 ?C (98.2 ?F), temperature source Left Tympanic, resp. rate 22, weight 79.8 kg (176 lb), SpO2 95 %. Component Latest Ref Rng AND Units 04/18/2018 Protein, Total 6.3 - 8.0 g/dL 7.8 Albumin 3.9 - 4.9 g/dL 4.4 Calcium 8.5 - 10.2 mg/dL 9.7 Bilirubin, Total 0.2 - 1.3 mg/dL 0.2 Alkaline Phosphatase 36 - 108 U/L 94 AST 14 - 40 U/L 19 Glucose 74 - 99 mg/dL 87 BUN 9 - 24 mg/dL 36 (H) Creatinine 0.73 - 1.22 mg/dL 2.08 (H) Sodium 136 - 144 mmol/L 140 Potassium 3.7 - 5.1 mmol/L 4.1 Chloride 97 - 105 mmol/L 99 CO2 22 - 30 mmol/L 24 Anion Gap 9 - 18 mmol/L 17 ALT 10 - 54 U/L 8 (L) eGFR- 38 eGFR-All Other Races . 31 Physical Exam Constitutional: He is oriented to person, place, and time. Non-toxic appearance. He does not have a sickly appearance. He appears distressed (initially, after nebulizer treatment no distress. ). HENT: Head: Normocephalic and atraumatic. Nose: Nose normal. Eyes: Pupils are equal, round, and reactive to light. Conjunctivae and lids are normal. Right eye exhibits no discharge. Left eye exhibits no discharge. No scleral icterus. Neck: Trachea normal and normal range of motion. Neck supple. Cardiovascular: Normal rate, regular rhythm and normal heart sounds. Pulmonary/Chest: Accessory muscle usage (prior to treatment) present. He has wheezes (scattered throughout). He has rhonchi (scattered throughout). Lungs mostly clear and respirations easy after nebulizer treatment Lymphadenopathy: He has no cervical adenopathy. Neurological: He is alert and oriented to person, place, and time. Skin: No rash noted. He is not diaphoretic. ASSESSMENT/PLAN: 1. Acute bronchitis, unspecified organism - ICD9: 466.0, ICD10: J20.9 (primary diagnosis) -risk factors - diabetes, age, renal disease, heart disease - Discussed supportive care, given educational handout - Limit exposure to smoke and other inhaled irritants - Discussed possible red flags and when to seek medical attention - Follow up in 3-5 days or sooner if no better or worse -If you experience chest pain/shortness of breath go to ER -will schedule with primary care - ALBUTEROL SULFATE 2.5 MG/3 ML (0.083 %) SOLUTION FOR NEBULIZATION - XR CHEST 2V FRONTAL/LAT 2. Wheeze - ICD9: 786.07, ICD10: R06.2 Improvement noted in respirations and adventitious breath sounds after nebulizer treatment - ALBUTEROL SULFATE 2.5 MG/3 ML (0.083 %) SOLUTION FOR NEBULIZATION - XR CHEST 2V FRONTAL/LAT - Dictated by : WILLEM CHAVARRIA MD Impression IMPRESSION: No acute radiographic abnormality is evident. Herminio Nieves APRN.JAIRON Nieves APRN.DIP FILLER 07/07/2018 4:16 PM Signed -if you experience worsening symptoms or chest pain/shortness of breath to go ER ACUTE BRONCHITIS: You have acute bronchitis. This means the airway passages in your lungs are inflamed. Bronchitis may be caused by viruses or bacteria. Inhaling cigarette smoke will always make it worse. Exposure to irritating chemicals or second hand smoke as well as allergies can contribute to bronchitis. Repeat episodes of bronchitis may cause lifelong lung problems. Acute bronchitis is usually treated with rest, fluids, cough medicine, and possibly antibiotics or inhaled medicine to open up the small airways. It is very important that you avoid smoke and drink increased amounts of fluids. A cool air vaporizer can help thin bronchial secretions. This makes it easier to cough and clear your chest. If you are a cigarette smoker, consider using nicotine gum or skin patches to help you withdraw. Recovery from bronchitis is often slow, but you should start feeling better after 2-3 days of treatment. Please call your doctor or return here if you have any of the following symptoms: - Increased fever, chills, or chest pain. - Severe shortness of breath or bloody sputum. - Do not improve after 3 days of proper treatment. Bertha Conley Ma 07/07/2018 4:35 PM Signed 2.5 solution aerosol treatment given per doctor's orders. Prior to treatment O2 Sat is 95%. Treatment completed. O2 sat is 98%. Tolerated well. Referring Provider: SELF [[id number]] Allergies As of Date: 07/07/2018 Noted Allergy Reaction ATORVASTATIN 10/18/2017 16 - Unknown CRESTOR (ROSUVASTATIN CALCIUM) 04/24/2013 14 - Other: See Comments Comments: Muscle pain GLUCOSAMINE 06/27/2017 16 - Unknown Comments: Nerve pain MOTRIN (IBUPROFEN) 01/19/2006 2 - Rash PRAVASTATIN 02/19/2013 14 - Other: See Comments Comments: muscle aches [id number]-[id number] REDUCTASE INHIBIT*10/09/2014 14 - Other: See Comments Comments: myalgia Date Reviewed: 07/07/2018 Reviewed by: Bertha Conley Ma - Fully Assessed Reason for Visit: Cough [28] Wheezing [181] Primary Visit Diagnosis:Acute bronchitis, unspecified organism [J20.9] Other Visit Diagnosis:Wheeze [R06.2] Order(s):XR CHEST 2V FRONTAL/LAT [[id number]] Order #: [id number]. #:[id number] doxycycline monohydrate 100 mg tabletTake 1 tablet by mouth twice daily for 10 days.Disp: 20 tabletRfl: 0 [] albuterol 2.5 mg /3 mL (0.083 %) 2.5 mg (PROVENTIL)Disp: Rfl: predniSONE (DELTASONE) 20 mg tabletTake 2 tablets by mouth once daily for 5 days.Disp: 10 tabletRfl: 0 Prescriptions as of 07/07/2018 Sig: DOXYCYCLINE MONOHYDRATE 100 M* Take 1 tablet by mouth twice * PREDNISONE 20 MG TABLET Take 2 tablets by mouth once * PEN NEEDLE, DIABETIC 32 GAUGE* Use once daily with Lantus as* OMEGA 3 ORAL Take by mouth. HYDROCORTISONE 2.5 % TOPICAL * Apply 1 application to affect* BLOOD SUGAR DIAGNOSTIC STRIPS Test blood sugar(s) 1 times d* DILTIAZEM SR 120 MG 24 HR CAP Take 1 capsule by mouth once * LOSARTAN 25 MG TABLET Take 1 tablet by mouth once d* ISOSORBIDE MONONITRATE ER 30 * Take 1 tablet by mouth once d* INSULIN GLARGINE (U-100) 100 * Inject 10 Units subcutaneousl* FERROUS SULFATE 325 MG (65 MG* Take 325 mg by mouth twice da* CETIRIZINE 10 MG CHEWABLE TAB* Take 10 mg by mouth once marvin* COMPOUNDED PRESCRIPTION kyloic Cholesterol 104 CHOLECALCIFEROL (VITAMIN D3) * Take 5,000 Units by mouth twi* AMLODIPINE 5 MG TABLET Take 1 tablet by mouth once d* RANITIDINE 150 MG TABLET Take 1 tablet by mouth daily * EZETIMIBE 10 MG TABLET Take 1 tablet by mouth once d* BENZONATATE 100 MG CAPSULE Take 1 capsule by mouth three* Patient not taking: Reported on 05/31/2018 BLOOD SUGAR DIAGNOSTIC STRIPS Use once daily to test blood * TRUE METRIX GLUCOSE METER 1 Each as directed. METOPROLOL TARTRATE 25 MG TAB* TAKE 1/2 (ONE-HALF) OF A TABL* KLOR-CON M10 MEQ TABLET,EXTEN* Take 10 mEq by mouth once felice* BLOOD-GLUCOSE METER KIT 1 Each as directed. LANCETS Use as instructed GEMFIBROZIL 600 MG TABLET Take 1 tablet by mouth twice * FUROSEMIDE 40 MG TABLET Take 1 tablet by mouth once d* CLOPIDOGREL 75 MG TABLET Take 1 tablet by mouth once d* POTASSIUM CHLORIDE ER 10 MEQ * Take 1 tablet by mouth once d* OCUVITE ORAL Take by mouth. COMPOUNDED PRESCRIPTION Nature's way Kidney Bladder COMPOUNDED PRESCRIPTION Nature's Way Garlic Parsley TRIAMCINOLONE ACETONIDE 0.1 %* Apply 1 application to affect* VITAMIN D3 ORAL Take 600 mg by mouth once felice* COENZYME Q10 100 MG CAPSULE Take 1 capsule by mouth. ONE DAILY MULTI-VITAMIN TABLET Take one(1) tablet daily. CALTRATE-600 PLUS VITAMIN D3 * TAKE TWO TABLETS DAILY. Problem List As Of Date 07/07/2018 Noted Resolved GENERAL OSTEOARTHROSIS [M15.9] DIAPHRAGMATIC HERNIA [K44.9] ASCVD [I25.10] More... 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] INVALID FOR* L-S Radiculopathy [M54.17] INVALID FOR* Thoracic or Lumbosacral Neuritis or Radiculitis*INVALID FOR* Glucose intolerance (pre-diabetes) [R73.03] INVALID FOR*07/04/2014 CAD (coronary artery disease) [I25.10] INVALID FOR* Gout [M10.9] INVALID FOR* AAA (abdominal aortic aneurysm) [I71.4] INVALID FOR* Diabetes mellitus type 2, uncontrolled, without*INVALID FOR* Stented coronary artery [Z95.5] INVALID FOR* Fatigue [R53.83] INVALID FOR* Absolute anemia [D64.9] INVALID FOR* CKD (chronic kidney disease) stage 3, GFR 30-59*INVALID FOR* Diarrhea [R19.7] INVALID FOR* CKD (chronic kidney disease) stage 4, GFR 15-29*INVALID FOR* Coronary artery 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 rich plaqu*INVALID FOR* Low blood potassium [E87.6] INVALID FOR* Uncontrolled type 2 diabetes mellitus without c*INVALID FOR* Controlled type 2 diabetes mellitus without com*INVALID FOR* Hypoalbuminemia [E88.09] INVALID FOR* Generalized abdominal pain [R10.84] INVALID FOR* Blood in stool [K92.1] INVALID FOR* 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 This means the airway passages in your lungs are inflamed. Bronchitis may be caused by viruses or bacteria. Inhaling cigarette smoke will always make it worse. Exposure to irritating chemicals or second hand smoke as well as allergies can contribute to bronchitis. Repeat episodes of bronchitis may cause lifelong lung problems. Acute bronchitis is usually treated with rest, fluids, cough medicine, and possibly antibiotics or inhaled medicine to open up the small airways. It is very important that you avoid smoke and drink increased amounts of fluids. A cool air vaporizer can help thin bronchial secretions. This makes it easier to cough and clear your chest. If you are a cigarette smoker, consider using nicotine gum or skin patches to help you withdraw. Recovery from bronchitis is often slow, but you should start feeling better after 2-3 days of treatment. Please call your doctor or return here if you have any of the following symptoms: - Increased fever, chills, or chest pain. - Severe shortness of breath or bloody sputum. - Do not improve after 3 days of proper treatment. Visit Notes: >> Bertha Conley Ma TueJul 07, 2018 4:34 PM Status: Signed 2.5 solution aerosol treatment given per doctor's orders. Prior to treatment O2 Sat is 95%. Treatment completed. O2 sat is 98%. Tolerated well. Prescriptions ordered this encounter Disp Refills Start End ALBUTEROL SULFATE 2.5 MG/3 ML (0.083* 07/07/2018 07/07/2018 Route: INHALATION DOXYCYCLINE MONOHYDRATE 100 MG TABLET 20 t* 0 07/07/2018 07/17/2018 Route: ORAL Sig: Take 1 tablet by mouth twice daily for 10 days. ALBUTEROL SULFATE 2.5 MG/3 ML (0.083* 07/07/2018 07/07/2018 Route: INHALATION PREDNISONE 20 MG TABLET 10 t* 0 07/07/2018 07/12/2018 Route: ORAL Sig: Take 2 tablets by mouth once daily for 5 days. Medications Discontinued During This Encounter albuterol 2.5 mg /3 mL (0.083 %) 2.5* 07/07/2018 07/07/2018 Route: INHALATION Sig: Disc: Reason for discontinue is not on file. Encounter Status:Closed by HERMINIO NIEVES CNP on 07/07/18 PROGRESS Observed: 06/29/2018 Status: COMPLETED Source: [place] 3:05 PM [facility] REPOSITORY O ID: [id number] Author: Mony Sewell Service: (none) Author Type: Physician Type: Progress Notes Filed: 06/29/2018 4:16 PM Note Text: follow-up capsule endoscopy (iron deficiency anemia) DONNA Gage is a 77 year old male here today for F/U of anemia and results of capsule endoscopy done 06/15/18. Pillcam showed a n area of bleeding at 23 minutes , ostensibly at distal duodenum. A 2nd area of bleeding was noted in approximate area of mid-ileum. At neither site did it show an exact cause of bleeding. He has black stools due to PO iron, but no real blood in stools. Takes plavix daily. Takes advil ss needed. Also takes aspirin and tylenol. Stopped taking aleve 2 years ago due to renal insufficiency. Current Outpatient Prescriptions: Insulin Hume, Disposable, (BD ULTRA-FINE BENNY PEN NEEDLE) 32 gauge x 5/32 ndle Use once daily with Lantus as directed flaxseed oil (OMEGA 3 ORAL) Take by mouth. hydrocortisone 2.5 % cream Apply 1 application to affected area twice daily. Location: face blood sugar diagnostic (BLOOD GLUCOSE TEST) test strip Test blood sugar(s) 1 times daily. Dx: Type 2 DM - Uncontrolled E11.65 Insulin: Yes diltiazem CD (CARDIZEM CD, CARTIA XT) 120 mg 24 hr capsule Take 1 capsule by mouth once daily. losartan (COZAAR) 25 mg tablet Take 1 tablet by mouth once daily. isosorbide mononitrate ER (IMDUR) 30 mg 24 hr tablet Take 1 tablet by mouth once daily. insulin glargine (BASAGLAR KWIKPEN U-100 INSULIN) 100 unit/mL (3 mL) inpn Inject 10 Units subcutaneously daily at bedtime. ferrous sulfate (IRON) 325 mg (65 mg iron) tablet Take 325 mg by mouth twice daily. cetirizine HCl (ZYRTEC) 10 mg chewable tablet Take 10 mg by mouth once daily. COMPOUNDED PRESCRIPTION kyloic Cholesterol 104 cholecalciferol (VITAMIN D-3) 5,000 unit tab Take 5,000 Units by mouth twice daily. amLODIPine (NORVASC) 5 mg tablet Take 1 tablet by mouth once daily. ranitidine (ZANTAC) 150 mg tablet Take 1 tablet by mouth daily at bedtime. ezetimibe (ZETIA) 10 mg tablet Take 1 tablet by mouth once daily. blood sugar diagnostic (BLOOD GLUCOSE TEST) test strip Use once daily to test blood sugar in the morning TRUE METRIX GLUCOSE METER misc 1 Each as directed. metoprolol tartrate, short acting, (LOPRESSOR) 25 mg tablet TAKE 1/2 (ONE-HALF) OF A TABLET BY MOUTH TWICE DAILY KLOR-CON M10 10 mEq tablet Take 10 mEq by mouth once daily. Blood-Glucose Meter (FREESTYLE LITE METER) monitoring kit 1 Each as directed. Lancets lancets Use as instructed gemfibrozil (LOPID) 600 mg tablet Take 1 tablet by mouth twice daily. furosemide (LASIX) 40 mg tablet Take 1 tablet by mouth once daily. clopidogrel (PLAVIX) 75 mg tablet Take 1 tablet by mouth once daily. potassium chloride (KLOR-CON 10) 10 mEq tablet Take 1 tablet by mouth once daily. VIT C/VIT E/LUTEIN/MIN/OMEGA-3 (OCUVITE ORAL) Take by mouth. triamcinolone acetonide (KENALOG) 0.1 % cream Apply 1 application to affected area twice daily as needed (rash). Apply sparingly to area for rash/itching. CHOLECALCIFEROL, VITAMIN D3, (VITAMIN D3 ORAL) Take 600 mg by mouth once daily. coenzyme Q10 (COQ-10) 100 mg cap Take 1 capsule by mouth. ONE DAILY MULTI-VITAMIN ORAL TAB Take one(1) tablet daily. CALTRATE-600 PLUS VITAMIN D3 600 MG-200 UNIT ORAL TAB TAKE TWO TABLETS DAILY. benzonatate (TESSALON PERLES) 100 mg capsule Take 1 capsule by mouth three times daily as needed for Cough. (Patient not taking: Reported on 05/31/2018 ) COMPOUNDED PRESCRIPTION [facility] Kidney Bladder COMPOUNDED PRESCRIPTION [facility] Garlic Laila No current facility-administered medications for this visit. ALLERGIES Allergen Reactions - Atorvastatin Unknown - Crestor [Rosuvastat* Other: See Comments Muscle pain - Glucosamine Unknown Nerve pain - Motrin [Ibuprofen] Rash - Pravastatin Other: See Comments muscle aches - Ypytblq-Qam-Yvi Red* Other: See Comments myalgia Social History Substance Use Topics - Smoking status: Former Smoker Packs/day: 2.00 Years: 20.00 Types: Cigarettes, Pipe, Cigars - Smokeless tobacco: Never Used Comment: quit in 1987 - Alcohol use Yes Comment: rarely PAST MEDICAL HISTORY Diagnosis Date - Abdominal aneurysm without mention of rupture 09/2015 4.15 cm - Acute gastritis without mention of hemorrhage 04/26/2017 EGD by Cebul - AMI (acute myocardial infarction) (HCC) 07/03/2013 - Carotid atherosclerosis 05/2014 - CKD stage G3b/A2, GFR 30-44 and albumin creatinine ratio 30-299 mg/g (HCC) AVOID NEPHROTOXIC MEDICATIONS - Diabetes mellitus type 2, uncontrolled, without complications (HCC) - Diaphragmatic hernia without mention of obstruction or gangrene - Diverticulosis of colon (without mention of hemorrhage) 04/26/2017 colonoscopy by Cebul - Esophagitis - Generalized osteoarthrosis, unspecified site - Internal hemorrhoid 04/26/2017 colonoscopy by Cebul - Iron deficiency anemia - Malignant neoplasm of prostate (HCC) - Other and unspecified hyperlipidemia - 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 Nolan Triana - EGD W/O RUST SPECIMEN W/BX 07/10/07 - OPEN CORONARY ENDARTERECTOMY 07/03/2013 Angioplasty Xience stent to L circumflex - PAST SURGICAL HISTORY OF 01/26/08 stent placement ramus and prox ramus - PAST SURGICAL HISTORY OF heart stents - REMV PROSTATE,PERINEAL,RADICAL 2000 Prostatectomy, radical- Dr. Ojeda - REPAIR ING HERNIA,5+Y/O,REDUCIBL left Hernia repair, inguinal - SCREENING COLONSCOPY NOT HIGH RISK 04/26/2017 Dr. Yousif Triana; next screening colonoscopy in 10yrs, [facility] FAMILY HISTORY Problem Relation Age of Onset - Hypertension Father - COPD Father - Heart Mother REVIEW OF SYSTEMS Review of Systems All other systems reviewed and are negative. PHYSICAL EXAM BP 124/62 Pulse 68 Ht 5' 8 (1.73m) Wt 176 lb (79.8kg) SpO2 97% BMI 26.77 kg/(m2). Physical Exam Constitutional: He is oriented to person, place, and time. He appears well-developed and well-nourished. HENT: Head: Normocephalic and atraumatic. Right Ear: External ear normal. Left Ear: External ear normal. Nose: Nose normal. Mouth/Throat: Oropharynx is clear and moist. Eyes: Pupils are equal, round, and reactive to light. Conjunctivae and EOM are normal. Neck: Normal range of motion. Neck supple. Cardiovascular: Normal rate, regular rhythm, normal heart sounds and intact distal pulses. Pulmonary/Chest: Effort normal and breath sounds normal. Abdominal: Soft. Bowel sounds are normal. Musculoskeletal: Normal range of motion. Neurological: He is alert and oriented to person, place, and time. He has normal reflexes. Skin: Skin is warm and dry. Psychiatric: He has a normal mood and affect. His behavior is normal. Judgment and thought content normal. I have confirmed and edited as necessary, the PFSH, HPI and ROS obtained by others. ASSESSMENT: No diagnosis found. PLAN: No orders found for this visit on 06/29/18. No Follow-up on file. Refer to [facility] [place] for push enteroscopy and possible double balloon enteroscopy. Pt. To make his decision and lets us knoe about his preference. Mony Sewell MD DATE: 06/29/18 TIME: 3:05 PM CNOV Observed: 06/29/2018 Status: COMPLETED Source: [place] 2:30 PM [facility] REPOSITORY Office Visit ([facility]) ABRAHAM GAGE ([id number]) 1940 M Date Time Provider Department 06/29/18 2:30 PM MONY SEWELL GSTJEFF During your visit today, we recorded the following information about you: Pulse Blood pressure Weight Height 68/minute 124/62 79.8 kg 1.727 m Mony Sewell MD 06/29/2018 4:16 PM Signed follow-up capsule endoscopy (iron deficiency anemia) HPI Abraham Gage is a 77 year old male here today for F/U of anemia and results of capsule endoscopy done 06/15/18. Pillcam showed a n area of bleeding at 23 minutes , ostensibly at distal duodenum. A 2nd area of bleeding was noted in approximate area of mid-ileum. At neither site did it show an exact cause of bleeding. He has black stools due to PO iron, but no real blood in stools. Takes plavix daily. Takes advil ss needed. Also takes aspirin and tylenol. Stopped taking aleve 2 years ago due to renal insufficiency. Current Outpatient Prescriptions: Insulin Hume, Disposable, (BD ULTRA-FINE BENNY PEN NEEDLE) 32 gauge x 5/32 ndle Use once daily with Lantus as directed flaxseed oil (OMEGA 3 ORAL) Take by mouth. hydrocortisone 2.5 % cream Apply 1 application to affected area twice daily. Location: face blood sugar diagnostic (BLOOD GLUCOSE TEST) test strip Test blood sugar(s) 1 times daily. Dx: Type 2 DM - Uncontrolled E11.65 Insulin: Yes diltiazem CD (CARDIZEM CD, CARTIA XT) 120 mg 24 hr capsule Take 1 capsule by mouth once daily. losartan (COZAAR) 25 mg tablet Take 1 tablet by mouth once daily. isosorbide mononitrate ER (IMDUR) 30 mg 24 hr tablet Take 1 tablet by mouth once daily. insulin glargine (BASAGLAR KWIKPEN U-100 INSULIN) 100 unit/mL (3 mL) inpn Inject 10 Units subcutaneously daily at bedtime. ferrous sulfate (IRON) 325 mg (65 mg iron) tablet Take 325 mg by mouth twice daily. cetirizine HCl (ZYRTEC) 10 mg chewable tablet Take 10 mg by mouth once daily. COMPOUNDED PRESCRIPTION kyloic Cholesterol 104 cholecalciferol (VITAMIN D-3) 5,000 unit tab Take 5,000 Units by mouth twice daily. amLODIPine (NORVASC) 5 mg tablet Take 1 tablet by mouth once daily. ranitidine (ZANTAC) 150 mg tablet Take 1 tablet by mouth daily at bedtime. ezetimibe (ZETIA) 10 mg tablet Take 1 tablet by mouth once daily. blood sugar diagnostic (BLOOD GLUCOSE TEST) test strip Use once daily to test blood sugar in the morning TRUE METRIX GLUCOSE METER misc 1 Each as directed. metoprolol tartrate, short acting, (LOPRESSOR) 25 mg tablet TAKE 1/2 (ONE-HALF) OF A TABLET BY MOUTH TWICE DAILY KLOR-CON M10 10 mEq tablet Take 10 mEq by mouth once daily. Blood-Glucose Meter (FREESTYLE LITE METER) monitoring kit 1 Each as directed. Lancets lancets Use as instructed gemfibrozil (LOPID) 600 mg tablet Take 1 tablet by mouth twice daily. furosemide (LASIX) 40 mg tablet Take 1 tablet by mouth once daily. clopidogrel (PLAVIX) 75 mg tablet Take 1 tablet by mouth once daily. potassium chloride (KLOR-CON 10) 10 mEq tablet Take 1 tablet by mouth once daily. VIT C/VIT E/LUTEIN/MIN/OMEGA-3 (OCUVITE ORAL) Take by mouth. triamcinolone acetonide (KENALOG) 0.1 % cream Apply 1 application to affected area twice daily as needed (rash). Apply sparingly to area for rash/itching. CHOLECALCIFEROL, VITAMIN D3, (VITAMIN D3 ORAL) Take 600 mg by mouth once daily. coenzyme Q10 (COQ-10) 100 mg cap Take 1 capsule by mouth. ONE DAILY MULTI-VITAMIN ORAL TAB Take one(1) tablet daily. CALTRATE-600 PLUS VITAMIN D3 600 MG-200 UNIT ORAL TAB TAKE TWO TABLETS DAILY. benzonatate (TESSALON PERLES) 100 mg capsule Take 1 capsule by mouth three times daily as needed for Cough. (Patient not taking: Reported on 05/31/2018 ) COMPOUNDED PRESCRIPTION [facility] Kidney Bladder COMPOUNDED PRESCRIPTION [facility] Garlic [place] No current facility-administered medications for this visit. ALLERGIES Allergen Reactions - Atorvastatin Unknown - Crestor [Rosuvastat* Other: See Comments Muscle pain - Glucosamine Unknown Nerve pain - Motrin [Ibuprofen] Rash - Pravastatin Other: See Comments muscle aches - Qqcfidq-Jxt-Osq Red* Other: See Comments myalgia Social History Substance Use Topics - Smoking status: Former Smoker Packs/day: 2.00 Years: 20.00 Types: Cigarettes, Pipe, Cigars - Smokeless tobacco: Never Used Comment: quit in 1987 - Alcohol use Yes Comment: rarely PAST MEDICAL HISTORY Diagnosis Date - Abdominal aneurysm without mention of rupture 09/2015 4.15 cm - Acute gastritis without mention of hemorrhage 04/26/2017 EGD by Cebul - AMI (acute myocardial infarction) (HCC) 07/03/2013 - Carotid atherosclerosis 05/2014 - CKD stage G3b/A2, GFR 30-44 and albumin creatinine ratio 30-299 mg/g (HCC) AVOID NEPHROTOXIC MEDICATIONS - Diabetes mellitus type 2, uncontrolled, without complications (HCC) - Diaphragmatic hernia without mention of obstruction or gangrene - Diverticulosis of colon (without mention of hemorrhage) 04/26/2017 colonoscopy by Cebul - Esophagitis - Generalized osteoarthrosis, unspecified site - Internal hemorrhoid 04/26/2017 colonoscopy by Cebul - Iron deficiency anemia - Malignant neoplasm of prostate (HCC) - Other and unspecified hyperlipidemia - 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 Nolan Triana - EGD W/O RUST SPECIMEN W/BX 07/10/07 - OPEN CORONARY ENDARTERECTOMY 07/03/2013 Angioplasty Xience stent to L circumflex - PAST SURGICAL HISTORY OF 01/26/08 stent placement ramus and prox ramus - PAST SURGICAL HISTORY OF heart stents - REMV PROSTATE,PERINEAL,RADICAL 2000 Prostatectomy, radical- Dr. Ojeda - REPAIR ING HERNIA,5+Y/O,REDUCIBL left Hernia repair, inguinal - SCREENING COLONSCOPY NOT HIGH RISK 04/26/2017 Dr. Yousif Triana; next screening colonoscopy in 10yrs, [facility] FAMILY HISTORY Problem Relation Age of Onset - Hypertension Father - COPD Father - Heart Mother REVIEW OF SYSTEMS Review of Systems All other systems reviewed and are negative. PHYSICAL EXAM BP 124/62 Pulse 68 Ht 5' 8 (1.73m) Wt 176 lb (79.8kg) SpO2 97% BMI 26.77 kg/(m2). Physical Exam Constitutional: He is oriented to person, place, and time. He appears well-developed and well-nourished. HENT: Head: Normocephalic and atraumatic. Right Ear: External ear normal. Left Ear: External ear normal. Nose: Nose normal. Mouth/Throat: Oropharynx is clear and moist. Eyes: Pupils are equal, round, and reactive to light. Conjunctivae and EOM are normal. Neck: Normal range of motion. Neck supple. Cardiovascular: Normal rate, regular rhythm, normal heart sounds and intact distal pulses. Pulmonary/Chest: Effort normal and breath sounds normal. Abdominal: Soft. Bowel sounds are normal. Musculoskeletal: Normal range of motion. Neurological: He is alert and oriented to person, place, and time. He has normal reflexes. Skin: Skin is warm and dry. Psychiatric: He has a normal mood and affect. His behavior is normal. Judgment and thought content normal. I have confirmed and edited as necessary, the PFSH, HPI and ROS obtained by others. ASSESSMENT: No diagnosis found. PLAN: No orders found for this visit on 06/29/18. No Follow-up on file. Refer to [facility] [place] for push enteroscopy and possible double balloon enteroscopy. Pt. To make his decision and lets us knoe about his preference. Mony Sewell MD DATE: 06/29/18 TIME: 3:05 PM Referring Provider: MONY SEWELL [[id number]] Allergies As of Date: 06/29/2018 Noted Allergy Reaction ATORVASTATIN 10/18/2017 16 - Unknown CRESTOR (ROSUVASTATIN CALCIUM) 04/24/2013 14 - Other: See Comments Comments: Muscle pain GLUCOSAMINE 06/27/2017 16 - Unknown Comments: Nerve pain MOTRIN (IBUPROFEN) 01/19/2006 2 - Rash PRAVASTATIN 02/19/2013 14 - Other: See Comments Comments: muscle aches [id number] REDUCTASE INHIBIT*10/09/2014 14 - Other: See Comments Comments: myalgia Date Reviewed: 06/29/2018 Reviewed by: Vicky Matos LPN - Fully Assessed Reason for Visit: follow-up capsule endoscopy [Other] Cmt: iron deficiency anemia Primary Visit Diagnosis:Occult GI bleeding [R19.5] Other Visit Diagnosis:Abnormal findings on diagnostic imaging of abdomen, positive capsule endoscopy for bleeding in distal duodenum and mid-ileum [R93.5] Prescriptions as of 06/29/2018 Sig: PEN NEEDLE, DIABETIC 32 GAUGE* Use once daily with Lantus as* OMEGA 3 ORAL Take by mouth. HYDROCORTISONE 2.5 % TOPICAL * Apply 1 application to affect* BLOOD SUGAR DIAGNOSTIC STRIPS Test blood sugar(s) 1 times d* DILTIAZEM SR 120 MG 24 HR CAP Take 1 capsule by mouth once * LOSARTAN 25 MG TABLET Take 1 tablet by mouth once d* ISOSORBIDE MONONITRATE ER 30 * Take 1 tablet by mouth once d* INSULIN GLARGINE (U-100) 100 * Inject 10 Units subcutaneousl* FERROUS SULFATE 325 MG (65 MG* Take 325 mg by mouth twice da* CETIRIZINE 10 MG CHEWABLE TAB* Take 10 mg by mouth once marvin* COMPOUNDED PRESCRIPTION kyloic Cholesterol 104 CHOLECALCIFEROL (VITAMIN D3) * Take 5,000 Units by mouth twi* AMLODIPINE 5 MG TABLET Take 1 tablet by mouth once d* RANITIDINE 150 MG TABLET Take 1 tablet by mouth daily * EZETIMIBE 10 MG TABLET Take 1 tablet by mouth once d* BLOOD SUGAR DIAGNOSTIC STRIPS Use once daily to test blood * TRUE METRIX GLUCOSE METER 1 Each as directed. METOPROLOL TARTRATE 25 MG TAB* TAKE 1/2 (ONE-HALF) OF A TABL* KLOR-CON M10 MEQ TABLET,EXTEN* Take 10 mEq by mouth once felice* BLOOD-GLUCOSE METER KIT 1 Each as directed. LANCETS Use as instructed GEMFIBROZIL 600 MG TABLET Take 1 tablet by mouth twice * FUROSEMIDE 40 MG TABLET Take 1 tablet by mouth once d* CLOPIDOGREL 75 MG TABLET Take 1 tablet by mouth once d* POTASSIUM CHLORIDE ER 10 MEQ * Take 1 tablet by mouth once d* OCUVITE ORAL Take by mouth. TRIAMCINOLONE ACETONIDE 0.1 %* Apply 1 application to affect* VITAMIN D3 ORAL Take 600 mg by mouth once felice* COENZYME Q10 100 MG CAPSULE Take 1 capsule by mouth. ONE DAILY MULTI-VITAMIN TABLET Take one(1) tablet daily. CALTRATE-600 PLUS VITAMIN D3 * TAKE TWO TABLETS DAILY. BENZONATATE 100 MG CAPSULE Take 1 capsule by mouth three* Patient not taking: Reported on 05/31/2018 X PEN NEEDLE, DIABETIC 32 GAUGE* Use once daily with Lantus as* COMPOUNDED PRESCRIPTION [facility] Kidney Bladder COMPOUNDED PRESCRIPTION [facility] Garlic [place] Problem List As Of Date 06/29/2018 Noted Resolved GENERAL OSTEOARTHROSIS [M15.9] DIAPHRAGMATIC HERNIA [K44.9] ASCVD [I25.10] More... 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] INVALID FOR* L-S Radiculopathy [M54.17] INVALID FOR* Thoracic or Lumbosacral Neuritis or Radiculitis*INVALID FOR* Glucose intolerance (pre-diabetes) [R73.03] INVALID FOR*07/04/2014 CAD (coronary artery disease) [I25.10] INVALID FOR* Gout [M10.9] INVALID FOR* AAA (abdominal aortic aneurysm) [I71.4] INVALID FOR* Diabetes mellitus type 2, uncontrolled, without*INVALID FOR* Stented coronary artery [Z95.5] INVALID FOR* Fatigue [R53.83] INVALID FOR* Absolute anemia [D64.9] INVALID FOR* CKD (chronic kidney disease) stage 3, GFR 30-59*INVALID FOR* Diarrhea [R19.7] INVALID FOR* CKD (chronic kidney disease) stage 4, GFR 15-29*INVALID FOR* Coronary artery 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 rich plaqu*INVALID FOR* Low blood potassium [E87.6] INVALID FOR* Uncontrolled type 2 diabetes mellitus without c*INVALID FOR* Controlled type 2 diabetes mellitus without com*INVALID FOR* Hypoalbuminemia [E88.09] INVALID FOR* Generalized abdominal pain [R10.84] INVALID FOR* Blood in stool [K92.1] INVALID FOR* 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 Follow-up and Disposition History Recorded Encounter Status:Closed by MONY SEWELL MD on 06/29/18 PROGRESS Observed: 06/06/2018 Status: COMPLETED Source: [place] 8:23 AM [facility] REPOSITORY HNO ID: [id number] Author: Vicky Matos LPN Service: (none) Author Type: (none) Type: Progress Notes Filed: 06/06/2018 8:29 AM Note Text: Patient had a capsule endoscopy. Patient swallowed the capsule without any difficulty. Referring Provider:Mony Sewell Reason for Capsule: Iron deficiency Anemia Patient was given discharge instructions. Ingested capsule endoscope without difficulty at 8:23 AM on 06/06/2018. Vicky Matos LPN CNOV Observed: 06/06/2018 Status: COMPLETED Source: [place] 8:00 AM [facility] REPOSITORY Office Visit ([facility]) ABRAHAM GAGE ([id number]) 1940 M Date Time Provider Department 06/06/18 8:00 AM [facility] During your visit today, we recorded the following information about you: Vicky Matos LPN 06/06/2018 8:29 AM Signed Patient had a capsule endoscopy. Patient swallowed the capsule without any difficulty. Referring Provider:Mony Sewell Reason for Capsule: Iron deficiency Anemia Patient was given discharge instructions. Ingested capsule endoscope without difficulty at 8:23 AM on 06/06/2018. Vicky Matos LPN 06/06/2018 8:26 AM Signed Capsule Endoscopy Post Ingestion Patient Information Do not eat or drink for two (2) hours after you have swallowed the capsule endoscope. Two (2) hours after you have swallowed the capsule endoscope you may drink clear liquids like coffee and tea (without cream), cola drinks, apple juice, broth, and eat Jell-O or popsicles. Please do not consume anything red in color. You may also return to taking your routine medications. Four (4) hours after you have swallowed the capsule endoscope, you may return to your usual diet. You may return to your normal activities after ingesting the capsule. Please avoid vigorous exercise. You may operate electrical equipment while undergoing your capsule endoscopy. It is not likely that any household or office equipment will interfere with this examination. You may use cell phones, computers, remote TV appliances, microwaves, MP3 players and digital cameras. Because the capsule endoscopy equipment is somewhat ominous in appearance, we recommend you avoid the airport, [employer] and [employer] buildings. Many [employer] use a similar technology for security, it is best to avoid these environments. Avoid other patients also undergoing capsule endoscopy. Although the transmission distance is limited, it is possible that your capsule images could be altered. You may not have an MRI (a test similar to an x-ray that uses magnets in the imaging process) while the capsule endoscope remains in your body. Do not schedule a capsule endoscope and an MRI for the same day. Should you require an MRI in the future and you have not seen the capsule evacuated in your stool, discuss this with your physician. An x-ray of your abdomen can show if the capsule has been evacuated. Remove your capsule endoscopy equipment at the time indicated by your procedure nurse. 1. Loosen the Velcro Belt (if you have adhesive patches on your abdomen-remove them). 2. The equipment will come off in one piece. 3. There is nothing to turn off or take apart. 4. Place all equipment in the bag provided. 5. Your nurse may ask you to return the equipment directly to the office. The capsule endoscope will pass naturally in your stool. It is not necessary to retrieve or return the capsule. The images are stored in the equipment you have worn on your belt. You may flush the used capsule down the bathroom toilet for disposal. In some instances, patients have passed the capsule endoscope during stooling while the capsule is still actively ?blinking?. Do not be alarmed if this happens to you. You may dispose of the capsule in the same manner. If you stopped taking your oral Iron for this examination, you may resume taking it the day after your capsule examination. . Seek medical assistance if you develop extreme abdominal pain, bloating, fever, nausea and vomiting. These may be signs of obstruction and require medical intervention. During routine business hours you may call: Vicky Matos LPN [phone] After Business hours: [phone] have answering service contact your physician Referring Provider: MONY SEWELL [[id number]] Allergies As of Date: 06/06/2018 Noted Allergy Reaction ATORVASTATIN 10/18/2017 16 - Unknown CRESTOR (ROSUVASTATIN CALCIUM) 04/24/2013 14 - Other: See Comments Comments: Muscle pain GLUCOSAMINE 06/27/2017 16 - Unknown Comments: Nerve pain MOTRIN (IBUPROFEN) 01/19/2006 2 - Rash PRAVASTATIN 02/19/2013 14 - Other: See Comments Comments: muscle aches [id number] REDUCTASE INHIBIT*10/09/2014 14 - Other: See Comments Comments: myalgia Date Reviewed: 06/01/2018 Reviewed by: Mony Sewell - Fully Assessed Primary Visit Diagnosis:Iron deficiency anemia due to chronic blood loss [D50.0] Prescriptions as of 06/06/2018 Sig: OMEGA 3 ORAL Take by mouth. HYDROCORTISONE 2.5 % TOPICAL * Apply 1 application to affect* BLOOD SUGAR DIAGNOSTIC STRIPS Test blood sugar(s) 1 times d* DILTIAZEM SR 120 MG 24 HR CAP Take 1 capsule by mouth once * LOSARTAN 25 MG TABLET Take 1 tablet by mouth once d* ISOSORBIDE MONONITRATE ER 30 * Take 1 tablet by mouth once d* INSULIN GLARGINE (U-100) 100 * Inject 10 Units subcutaneousl* FERROUS SULFATE 325 MG (65 MG* Take 325 mg by mouth twice da* CETIRIZINE 10 MG CHEWABLE TAB* Take 10 mg by mouth once marvin* COMPOUNDED PRESCRIPTION kyloic Cholesterol 104 CHOLECALCIFEROL (VITAMIN D3) * Take 5,000 Units by mouth twi* AMLODIPINE 5 MG TABLET Take 1 tablet by mouth once d* RANITIDINE 150 MG TABLET Take 1 tablet by mouth daily * EZETIMIBE 10 MG TABLET Take 1 tablet by mouth once d* BENZONATATE 100 MG CAPSULE Take 1 capsule by mouth three* Patient not taking: Reported on 05/31/2018 BLOOD SUGAR DIAGNOSTIC STRIPS Use once daily to test blood * TRUE METRIX GLUCOSE METER 1 Each as directed. METOPROLOL TARTRATE 25 MG TAB* TAKE 1/2 (ONE-HALF) OF A TABL* KLOR-CON M10 MEQ TABLET,EXTEN* Take 10 mEq by mouth once felice* PEN NEEDLE, DIABETIC 32 GAUGE* Use once daily with Lantus as* BLOOD-GLUCOSE METER KIT 1 Each as directed. LANCETS Use as instructed GEMFIBROZIL 600 MG TABLET Take 1 tablet by mouth twice * FUROSEMIDE 40 MG TABLET Take 1 tablet by mouth once d* CLOPIDOGREL 75 MG TABLET Take 1 tablet by mouth once d* POTASSIUM CHLORIDE ER 10 MEQ * Take 1 tablet by mouth once d* Patient not taking: Reported on 06/01/2018 OCUVITE ORAL Take by mouth. COMPOUNDED PRESCRIPTION Nature's way Kidney Bladder COMPOUNDED PRESCRIPTION Nature's Way Garlic Parsley TRIAMCINOLONE ACETONIDE 0.1 %* Apply 1 application to affect* VITAMIN D3 ORAL Take 600 mg by mouth once felice* COENZYME Q10 100 MG CAPSULE Take 1 capsule by mouth. ONE DAILY MULTI-VITAMIN TABLET Take one(1) tablet daily. CALTRATE-600 PLUS VITAMIN D3 * TAKE TWO TABLETS DAILY. Problem List As Of Date 06/06/2018 Noted Resolved GENERAL OSTEOARTHROSIS [M15.9] DIAPHRAGMATIC HERNIA [K44.9] ASCVD [I25.10] More... 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] INVALID FOR* L-S Radiculopathy [M54.17] INVALID FOR* Thoracic or Lumbosacral Neuritis or Radiculitis*INVALID FOR* Glucose intolerance (pre-diabetes) [R73.03] INVALID FOR*07/04/2014 CAD (coronary artery disease) [I25.10] INVALID FOR* Gout [M10.9] INVALID FOR* AAA (abdominal aortic aneurysm) [I71.4] INVALID FOR* Diabetes mellitus type 2, uncontrolled, without*INVALID FOR* Stented coronary artery [Z95.5] INVALID FOR* Fatigue [R53.83] INVALID FOR* Absolute anemia [D64.9] INVALID FOR* CKD (chronic kidney disease) stage 3, GFR 30-59*INVALID FOR* Diarrhea [R19.7] INVALID FOR* CKD (chronic kidney disease) stage 4, GFR 15-29*INVALID FOR* Coronary artery 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 rich plaqu*INVALID FOR* Low blood potassium [E87.6] INVALID FOR* Uncontrolled type 2 diabetes mellitus without c*INVALID FOR* Controlled type 2 diabetes mellitus without com*INVALID FOR* Hypoalbuminemia [E88.09] INVALID FOR* Generalized abdominal pain [R10.84] INVALID FOR* Blood in stool [K92.1] INVALID FOR* 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 Two (2) hours after you have swallowed the capsule endoscope you may drink clear liquids like coffee and tea (without cream), cola drinks, apple juice, broth, and eat Jell-O or popsicles. Please do not consume anything red in color. You may also return to taking your routine medications. Four (4) hours after you have swallowed the capsule endoscope, you may return to your usual diet. You may return to your normal activities after ingesting the capsule. Please avoid vigorous exercise. You may operate electrical equipment while undergoing your capsule endoscopy. It is not likely that any household or office equipment will interfere with this examination. You may use cell phones, computers, remote TV appliances, microwaves, TouchPal3 players and digital cameras. Because the capsule endoscopy equipment is somewhat ominous in appearance, we recommend you avoid the airport, bank and government buildings. Many museums use a similar technology for security, it is best to avoid these environments. Avoid other patients also undergoing capsule endoscopy. Although the transmission distance is limited, it is possible that your capsule images could be altered. You may not have an MRI (a test similar to an x-ray that uses magnets in the imaging process) while the capsule endoscope remains in your body. Do not schedule a capsule endoscope and an MRI for the same day. Should you require an MRI in the future and you have not seen the capsule evacuated in your stool, discuss this with your physician. An x- ray of your abdomen can show if the capsule has been evacuated. Remove your capsule endoscopy equipment at the time indicated by your procedure nurse. 1. Loosen the Velcro Belt (if you have adhesive patches on your abdomen-remove them). 2. The equipment will come off in one piece. 3. There is nothing to turn off or take apart. 4. Place all equipment in the bag provided. 5. Your nurse may ask you to return the equipment directly to the office. The capsule endoscope will pass naturally in your stool. It is not necessary to retrieve or return the capsule. The images are stored in the equipment you have worn on your belt. You may flush the used capsule down the bathroom toilet for disposal. In some instances, patients have passed the capsule endoscope during stooling while the capsule is still actively ?blinking?. Do not be alarmed if this happens to you. You may dispose of the capsule in the same manner. If you stopped taking your oral Iron for this examination, you may resume taking it the day after your capsule examination. . Seek medical assistance if you develop extreme abdominal pain, bloating, fever, nausea and vomiting. These may be signs of obstruction and require medical intervention. During routine business hours you may call: Vicky Matos LPN [phone] After Business hours: [phone] have answering service contact your physician Encounter Status:Closed by VICKY MATOS LPN on 06/06/18 PROGRESS Observed: 06/01/2018 Status: COMPLETED Source: [place] 2:55 PM [facility] REPOSITORY O ID: [id number] Author: Mony Sewell Service: (none) Author Type: Physician Type: Progress Notes Filed: 06/02/2018 12:37 PM Note Text: Anemia ( Evaluate for capsule endoscopy EGD/Colonoscopy performed 04/26/17) HPI:Abraham Gage is a 77 year old male who presents for Anemia ( Evaluate for capsule endoscopy EGD/Colonoscopy performed 04/26/[address] [facility]adez [facility]. Scoes were done for very low blood count. Takes Ranitidine for gastritis. Tired all the time and SOB. IN in 5.17. CABG in 1994. Last years attack did some damage to heart. Dr. Sanchez does not think SOB is due to heart disease. Hgb-12 gm while on slow release iron. 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 09/2015 4.15 cm - Acute gastritis without mention of hemorrhage 04/26/2017 EGD by Cebul - AMI (acute myocardial infarction) (HCC) 07/03/2013 - Anemia - Carotid atherosclerosis 05/2014 - CKD stage G3b/A2, GFR 30-44 and albumin creatinine ratio 30-299 mg/g (HCC) AVOID NEPHROTOXIC MEDICATIONS - Diabetes mellitus type 2, uncontrolled, without complications (HCC) - Diaphragmatic hernia without mention of obstruction or gangrene - Diverticulosis of colon (without mention of hemorrhage) 04/26/2017 colonoscopy by Cebul - Generalized osteoarthrosis, unspecified site - Internal hemorrhoid 04/26/2017 colonoscopy by Cebul - Iron deficiency anemia - Malignant neoplasm of prostate (HCC) - Other and unspecified hyperlipidemia - Unspecified cardiovascular disease 1994 CABG - Unspecified constipation - 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 Ojeda - REPAIR ING HERNIA,5+Y/O,REDUCIBL left Hernia repair, inguinal - SCREENING COLONSCOPY NOT HIGH RISK 04/26/2017 Dr. Yousif Triana; next screening colonoscopy in 10yrs Allergies: ALLERGIES Allergen Reactions - Atorvastatin Unknown - Crestor [Rosuvastat* Other: See Comments Muscle pain - Glucosamine Unknown Nerve pain - Motrin [Ibuprofen] Rash - Pravastatin Other: See Comments muscle aches - Fowytwd-Pke-Rul Red* Other: See Comments myalgia Medications: flaxseed oil (OMEGA 3 ORAL) Take by mouth. hydrocortisone 2.5 % cream Apply 1 application to affected area twice daily. Location: face blood sugar diagnostic (BLOOD GLUCOSE TEST) test strip Test blood sugar(s) 1 times daily. Dx: Type 2 DM - Uncontrolled E11.65 Insulin: Yes diltiazem CD (CARDIZEM CD, CARTIA XT) 120 mg 24 hr capsule Take 1 capsule by mouth once daily. losartan (COZAAR) 25 mg tablet Take 1 tablet by mouth once daily. isosorbide mononitrate ER (IMDUR) 30 mg 24 hr tablet Take 1 tablet by mouth once daily. insulin glargine (BASAGLAR KWIKPEN U-100 INSULIN) 100 unit/mL (3 mL) inpn Inject 10 Units subcutaneously daily at bedtime. ferrous sulfate (IRON) 325 mg (65 mg iron) tablet Take 325 mg by mouth twice daily. cetirizine HCl (ZYRTEC) 10 mg chewable tablet Take 10 mg by mouth once daily. cholecalciferol (VITAMIN D-3) 5,000 unit tab Take 5,000 Units by mouth twice daily. amLODIPine (NORVASC) 5 mg tablet Take 1 tablet by mouth once daily. ranitidine (ZANTAC) 150 mg tablet Take 1 tablet by mouth daily at bedtime. ezetimibe (ZETIA) 10 mg tablet Take 1 tablet by mouth once daily. blood sugar diagnostic (BLOOD GLUCOSE TEST) test strip Use once daily to test blood sugar in the morning TRUE METRIX GLUCOSE METER misc 1 Each as directed. metoprolol tartrate, short acting, (LOPRESSOR) 25 mg tablet TAKE 1/2 (ONE-HALF) OF A TABLET BY MOUTH TWICE DAILY KLOR-CON M10 10 mEq tablet Take 10 mEq by mouth once daily. Insulin Hume, Disposable, (BD ULTRA-FINE BENNY PEN NEEDLES) 32 gauge x ndle Use once daily with Lantus as directed Blood-Glucose Meter (FREESTYLE LITE METER) monitoring kit 1 Each as directed. Lancets lancets Use as instructed furosemide (LASIX) 40 mg tablet Take 1 tablet by mouth once daily. clopidogrel (PLAVIX) 75 mg tablet Take 1 tablet by mouth once daily. VIT C/VIT E/LUTEIN/MIN/OMEGA-3 (OCUVITE ORAL) Take by mouth. CHOLECALCIFEROL, VITAMIN D3, (VITAMIN D3 ORAL) Take 600 mg by mouth once daily. coenzyme Q10 (COQ-10) 100 mg cap Take 1 capsule by mouth. ONE DAILY MULTI-VITAMIN ORAL TAB Take one(1) tablet daily. COMPOUNDED PRESCRIPTION kyloic Cholesterol 104 benzonatate (TESSALON PERLES) 100 mg capsule Take 1 capsule by mouth three times daily as needed for Cough. gemfibrozil (LOPID) 600 mg tablet Take 1 tablet by mouth twice daily. potassium chloride (KLOR-CON 10) 10 mEq tablet Take 1 tablet by mouth once daily. COMPOUNDED PRESCRIPTION Nature's way Kidney Bladder COMPOUNDED PRESCRIPTION Nature's Way Garlic Parsley triamcinolone acetonide (KENALOG) 0.1 % cream Apply 1 application to affected area twice daily as needed (rash). Apply sparingly to area for rash/itching. CALTRATE-600 PLUS VITAMIN D3 600 MG-200 UNIT ORAL TAB TAKE TWO TABLETS DAILY. FAMILY HISTORY Problem Relation Age of Onset - Hypertension Father - COPD Father - Heart Mother Employer And Job Title: [employer] (No job title specified) Years Of Education Completed: Not specified Marital Status: to [place] with 2 children Social History Substance Use Topics - Smoking status: Former Smoker Packs/day: 2.00 Years: 20.00 Types: Cigarettes, Pipe, Cigars - Smokeless tobacco: Never Used Comment: quit in 1987 - Alcohol use Yes Comment: rarely Review of Systems: Review of Systems Respiratory: Positive for shortness of breath and wheezing. Physical Examination: BP 134/82 Pulse 74 Ht 5' 8 (1.73m) Wt 165 lb 8 oz (75.1kg) SpO2 97% BMI 25.17 kg/(m2). Physical Exam Constitutional: He is oriented to person, place, and time. He appears well-developed and well-nourished. HENT: Head: Normocephalic and atraumatic. Right Ear: External ear normal. Left Ear: External ear normal. Nose: Nose normal. Mouth/Throat: Oropharynx is clear and moist. Eyes: Pupils are equal, round, and reactive to light. Conjunctivae and EOM are normal. Neck: Normal range of motion. Neck supple. Cardiovascular: Normal rate, regular rhythm, normal heart sounds and intact distal pulses. Pulmonary/Chest: Effort normal and breath sounds normal. Abdominal: Soft. Bowel sounds are normal. Musculoskeletal: Normal range of motion. Neurological: He is alert and oriented to person, place, and time. He has normal reflexes. Skin: Skin is warm and dry. Psychiatric: He has a normal mood and affect. His behavior is normal. Judgment and thought content normal. ASSESSMENT: Iron deficiency anemia, unspecified iron deficiency anemia type (primary encounter diagnosis) PLAN: Office Visit on 06/01/18 -CAPSULE ENDOSCOPY SMALL BOWEL Return in about 4 weeks (around 06/29/2018). I have confirmed and edited as necessary, the PFSH, HPI and ROS obtained by others. Mony Sewell MD DATE: 06/01/18 TIME: 2:55 PM CNOV Observed: 06/01/2018 Status: COMPLETED Source: [place] 2:30 PM [facility] REPOSITORY Office Visit ([facility]) ABRAHAM GAGE ([id number]) 1940 M Date Time Provider Department 06/01/18 2:30 PM MONY SEWELL [facility] During your visit today, we recorded the following information about you: Pulse Blood pressure Weight Height 74/minute 134/82 75.1 kg 1.727 m Mony Sewell MD 06/02/2018 12:37 PM Addendum Anemia ( Evaluate for capsule endoscopy EGD/Colonoscopy performed 04/26/17) HPI:Abraham Gage is a 77 year old male who presents for Anemia ( Evaluate for capsule endoscopy EGD/Colonoscopy performed 04/26/[address] [facility]adez at [facility]. Scoes were done for very low blood count. Takes Ranitidine for gastritis. Tired all the time and SOB. IN in 5.17. CABG in 1994. Last years attack did some damage to heart. Dr. Sanchez does not think SOB is due to heart disease. Hgb-12 gm while on slow release iron. 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 09/2015 4.15 cm - Acute gastritis without mention of hemorrhage 04/26/2017 EGD by Cebul - AMI (acute myocardial infarction) (HCC) 07/03/2013 - Anemia - Carotid atherosclerosis 05/2014 - CKD stage G3b/A2, GFR 30-44 and albumin creatinine ratio 30-299 mg/g (HCC) AVOID NEPHROTOXIC MEDICATIONS - Diabetes mellitus type 2, uncontrolled, without complications (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 Ojeda - REPAIR ING HERNIA,5+Y/O,REDUCIBL left Hernia repair, inguinal - SCREENING COLONSCOPY NOT HIGH RISK 04/26/2017 Dr. Yousif Triana; next screening colonoscopy in 10yrs Allergies: ALLERGIES Allergen Reactions - Atorvastatin Unknown - Crestor [Rosuvastat* Other: See Comments Muscle pain - Glucosamine Unknown Nerve pain - Motrin [Ibuprofen] Rash - Pravastatin Other: See Comments muscle aches - Jjbjiik-Wmh-Jsk Red* Other: See Comments myalgia Medications: flaxseed oil (OMEGA 3 ORAL) Take by mouth. hydrocortisone 2.5 % cream Apply 1 application to affected area twice daily. Location: face blood sugar diagnostic (BLOOD GLUCOSE TEST) test strip Test blood sugar(s) 1 times daily. Dx: Type 2 DM - Uncontrolled E11.65 Insulin: Yes diltiazem CD (CARDIZEM CD, CARTIA XT) 120 mg 24 hr capsule Take 1 capsule by mouth once daily. losartan (COZAAR) 25 mg tablet Take 1 tablet by mouth once daily. isosorbide mononitrate ER (IMDUR) 30 mg 24 hr tablet Take 1 tablet by mouth once daily. insulin glargine (BASAGLAR KWIKPEN U-100 INSULIN) 100 unit/mL (3 mL) inpn Inject 10 Units subcutaneously daily at bedtime. ferrous sulfate (IRON) 325 mg (65 mg iron) tablet Take 325 mg by mouth twice daily. cetirizine HCl (ZYRTEC) 10 mg chewable tablet Take 10 mg by mouth once daily. cholecalciferol (VITAMIN D-3) 5,000 unit tab Take 5,000 Units by mouth twice daily. amLODIPine (NORVASC) 5 mg tablet Take 1 tablet by mouth once daily. ranitidine (ZANTAC) 150 mg tablet Take 1 tablet by mouth daily at bedtime. ezetimibe (ZETIA) 10 mg tablet Take 1 tablet by mouth once daily. blood sugar diagnostic (BLOOD GLUCOSE TEST) test strip Use once daily to test blood sugar in the morning TRUE METRIX GLUCOSE METER misc 1 Each as directed. metoprolol tartrate, short acting, (LOPRESSOR) 25 mg tablet TAKE 1/2 (ONE-HALF) OF A TABLET BY MOUTH TWICE DAILY KLOR-CON M10 10 mEq tablet Take 10 mEq by mouth once daily. Insulin Hume, Disposable, (BD ULTRA-FINE BENNY PEN NEEDLES) 32 gauge x 5/32 ndle Use once daily with Lantus as directed Blood-Glucose Meter (FREESTYLE LITE METER) monitoring kit 1 Each as directed. Lancets lancets Use as instructed furosemide (LASIX) 40 mg tablet Take 1 tablet by mouth once daily. clopidogrel (PLAVIX) 75 mg tablet Take 1 tablet by mouth once daily. VIT C/VIT E/LUTEIN/MIN/OMEGA-3 (OCUVITE ORAL) Take by mouth. CHOLECALCIFEROL, VITAMIN D3, (VITAMIN D3 ORAL) Take 600 mg by mouth once daily. coenzyme Q10 (COQ-10) 100 mg cap Take 1 capsule by mouth. ONE DAILY MULTI-VITAMIN ORAL TAB Take one(1) tablet daily. COMPOUNDED PRESCRIPTION kyloic Cholesterol 104 benzonatate (TESSALON PERLES) 100 mg capsule Take 1 capsule by mouth three times daily as needed for Cough. gemfibrozil (LOPID) 600 mg tablet Take 1 tablet by mouth twice daily. potassium chloride (KLOR-CON 10) 10 mEq tablet Take 1 tablet by mouth once daily. COMPOUNDED PRESCRIPTION Nature's way Kidney Bladder COMPOUNDED PRESCRIPTION Nature[facility] Way Garlic Parsley triamcinolone acetonide (KENALOG) 0.1 % cream Apply 1 application to affected area twice daily as needed (rash). Apply sparingly to area for rash/itching. CALTRATE-600 PLUS VITAMIN D3 600 MG-200 UNIT ORAL TAB TAKE TWO TABLETS DAILY. FAMILY HISTORY Problem Relation Age of Onset - Hypertension Father - COPD Father - Heart Mother Employer And Job Title: [employer] (No job title specified) Years Of Education Completed: Not specified Marital Status: to [place] with 2 children Social History Substance Use Topics - Smoking status: Former Smoker Packs/day: 2.00 Years: 20.00 Types: Cigarettes, Pipe, Cigars - Smokeless tobacco: Never Used Comment: quit in 1987 - Alcohol use Yes Comment: rarely Review of Systems: Review of Systems Respiratory: Positive for shortness of breath and wheezing. Physical Examination: BP 134/82 Pulse 74 Ht 5' 8 (1.73m) Wt 165 lb 8 oz (75.1kg) SpO2 97% BMI 25.17 kg/(m2). Physical Exam Constitutional: He is oriented to person, place, and time. He appears well-developed and well-nourished. HENT: Head: Normocephalic and atraumatic. Right Ear: External ear normal. Left Ear: External ear normal. Nose: Nose normal. Mouth/Throat: Oropharynx is clear and moist. Eyes: Pupils are equal, round, and reactive to light. Conjunctivae and EOM are normal. Neck: Normal range of motion. Neck supple. Cardiovascular: Normal rate, regular rhythm, normal heart sounds and intact distal pulses. Pulmonary/Chest: Effort normal and breath sounds normal. Abdominal: Soft. Bowel sounds are normal. Musculoskeletal: Normal range of motion. Neurological: He is alert and oriented to person, place, and time. He has normal reflexes. Skin: Skin is warm and dry. Psychiatric: He has a normal mood and affect. His behavior is normal. Judgment and thought content normal. ASSESSMENT: Iron deficiency anemia, unspecified iron deficiency anemia type (primary encounter diagnosis) PLAN: Office Visit on 06/01/18 -CAPSULE ENDOSCOPY SMALL BOWEL Return in about 4 weeks (around 06/29/2018). I have confirmed and edited as necessary, the PFSH, HPI and ROS obtained by others. Mony Sewell MD DATE: 06/01/18 TIME: 2:55 PM Referring Provider: JULISSA MITTAL (UROLOGIC SURGEON) [[id number]] Allergies As of Date: 06/01/2018 Noted Allergy Reaction ATORVASTATIN 10/18/2017 16 - Unknown CRESTOR (ROSUVASTATIN CALCIUM) 04/24/2013 14 - Other: See Comments Comments: Muscle pain GLUCOSAMINE 06/27/2017 16 - Unknown Comments: Nerve pain MOTRIN (IBUPROFEN) 01/19/2006 2 - Rash PRAVASTATIN 02/19/2013 14 - Other: See Comments Comments: muscle aches [id number] REDUCTASE INHIBIT*10/09/2014 14 - Other: See Comments Comments: myalgia Date Reviewed: 06/01/2018 Reviewed by: Mony Sewell - Fully Assessed Reason for Visit: Anemia [6] Cmt: Evaluate for capsule endoscopy EGD/Colonoscopy performed 04/26/17 Reason For Visit History Recorded Primary Visit Diagnosis:Iron deficiency anemia, unspecified iron deficiency anemia type [D50.9] Order(s):CAPSULE ENDOSCOPY SMALL BOWEL [[id number]] Order #: [id number] FUTURE Prescriptions as of 06/01/2018 Sig: OMEGA 3 ORAL Take by mouth. HYDROCORTISONE 2.5 % TOPICAL * Apply 1 application to affect* BLOOD SUGAR DIAGNOSTIC STRIPS Test blood sugar(s) 1 times d* DILTIAZEM SR 120 MG 24 HR CAP Take 1 capsule by mouth once * LOSARTAN 25 MG TABLET Take 1 tablet by mouth once d* ISOSORBIDE MONONITRATE ER 30 * Take 1 tablet by mouth once d* INSULIN GLARGINE (U-100) 100 * Inject 10 Units subcutaneousl* FERROUS SULFATE 325 MG (65 MG* Take 325 mg by mouth twice da* CETIRIZINE 10 MG CHEWABLE TAB* Take 10 mg by mouth once marvin* CHOLECALCIFEROL (VITAMIN D3) * Take 5,000 Units by mouth twi* AMLODIPINE 5 MG TABLET Take 1 tablet by mouth once d* RANITIDINE 150 MG TABLET Take 1 tablet by mouth daily * EZETIMIBE 10 MG TABLET Take 1 tablet by mouth once d* BLOOD SUGAR DIAGNOSTIC STRIPS Use once daily to test blood * TRUE METRIX GLUCOSE METER 1 Each as directed. METOPROLOL TARTRATE 25 MG TAB* TAKE 1/2 (ONE-HALF) OF A TABL* KLOR-CON M10 MEQ TABLET,EXTEN* Take 10 mEq by mouth once felice* PEN NEEDLE, DIABETIC 32 GAUGE* Use once daily with Lantus as* BLOOD-GLUCOSE METER KIT 1 Each as directed. LANCETS Use as instructed FUROSEMIDE 40 MG TABLET Take 1 tablet by mouth once d* CLOPIDOGREL 75 MG TABLET Take 1 tablet by mouth once d* OCUVITE ORAL Take by mouth. VITAMIN D3 ORAL Take 600 mg by mouth once felice* COENZYME Q10 100 MG CAPSULE Take 1 capsule by mouth. ONE DAILY MULTI-VITAMIN TABLET Take one(1) tablet daily. COMPOUNDED PRESCRIPTION kyloic Cholesterol 104 BENZONATATE 100 MG CAPSULE Take 1 capsule by mouth three* Patient not taking: Reported on 05/31/2018 GEMFIBROZIL 600 MG TABLET Take 1 tablet by mouth twice * POTASSIUM CHLORIDE ER 10 MEQ * Take 1 tablet by mouth once d* Patient not taking: Reported on 06/01/2018 COMPOUNDED PRES[address] Nature's way Kidney Bladder COMPOUNDED PRESCRIPTION Nature's Way Garlic Parsley TRIAMCINOLONE ACETONIDE 0.1 %* Apply 1 application to affect* CALTRATE-600 PLUS VITAMIN D3 * TAKE TWO TABLETS DAILY. Problem List As Of Date 06/01/2018 Noted Resolved GENERAL OSTEOARTHROSIS [M15.9] DIAPHRAGMATIC HERNIA [K44.9] ASCVD [I25.10] More... 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] INVALID FOR* L-S Radiculopathy [M54.17] INVALID FOR* Thoracic or Lumbosacral Neuritis or Radiculitis*INVALID FOR* Glucose intolerance (pre-diabetes) [R73.03] INVALID FOR*07/04/2014 CAD (coronary artery disease) [I25.10] INVALID FOR* Gout [M10.9] INVALID FOR* AAA (abdominal aortic aneurysm) [I71.4] INVALID FOR* Diabetes mellitus type 2, uncontrolled, without*INVALID FOR* Stented coronary artery [Z95.5] INVALID FOR* Fatigue [R53.83] INVALID FOR* Absolute anemia [D64.9] INVALID FOR* CKD (chronic kidney disease) stage 3, GFR 30-59*INVALID FOR* Diarrhea [R19.7] INVALID FOR* CKD (chronic kidney disease) stage 4, GFR 15-29*INVALID FOR* Coronary artery 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 rich plaqu*INVALID FOR* Low blood potassium [E87.6] INVALID FOR* Uncontrolled type 2 diabetes mellitus without c*INVALID FOR* Controlled type 2 diabetes mellitus without com*INVALID FOR* Hypoalbuminemia [E88.09] INVALID FOR* Generalized abdominal pain [R10.84] INVALID FOR* Blood in stool [K92.1] INVALID FOR* 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 Follow-up and Disposition History Recorded Encounter Status:Closed by MONY SEWELL MD on 06/01/18 PROGRESS Observed: 05/31/2018 Status: COMPLETED Source: [place] 3:08 PM [facility] REPOSITORY O ID: [id number] Author: Ruy Childress V Service: (none) Author Type: Physician Type: Progress Notes Filed: 05/31/2018 3:12 PM Note Text: Abraham Gage presents with pain, swelling and painful movement in the right elbow. Associated symptoms are, stiffness. Symptoms began about 5 days ago and since then have been continuous. The pain is rated as 4 on a scale of 1-10. Symptoms are not a result of an injury. Patient has history of pseudogout, and states it feels similar to those episodes. Elbow feels tight, but is not warm or throbbing. No fever or chills, or recent illness. PAST MEDICAL HISTORY Diagnosis Date - Abdominal aneurysm without mention of rupture 09/2015 4.15 cm - Acute gastritis without mention of hemorrhage 04/26/2017 EGD by Cebul - AMI (acute myocardial infarction) (HCC) 07/03/2013 - Anemia - Carotid atherosclerosis 05/2014 - CKD stage G3b/A2, GFR 30-44 and albumin creatinine ratio 30-299 mg/g (HCC) AVOID NEPHROTOXIC MEDICATIONS - Diabetes mellitus type 2, uncontrolled, without complications (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 Ojeda - REPAIR ING HERNIA,5+Y/O,REDUCIBL left Hernia repair, inguinal - SCREENING COLONSCOPY NOT HIGH RISK 04/26/2017 Dr. Yousif Triana; next screening colonoscopy in 10yrs Current Outpatient Prescriptions on File Prior to Visit: hydrocortisone 2.5 % cream Apply 1 application to affected area twice daily. Location: face blood sugar diagnostic (BLOOD GLUCOSE TEST) test strip Test blood sugar(s) 1 times daily. Dx: Type 2 DM - Uncontrolled E11.65 Insulin: Yes diltiazem CD (CARDIZEM CD, CARTIA XT) 120 mg 24 hr capsule Take 1 capsule by mouth once daily. losartan (COZAAR) 25 mg tablet Take 1 tablet by mouth once daily. isosorbide mononitrate ER (IMDUR) 30 mg 24 hr tablet Take 1 tablet by mouth once daily. insulin glargine (BASAGLAR KWIKPEN U-100 INSULIN) 100 unit/mL (3 mL) inpn Inject 10 Units subcutaneously daily at bedtime. ferrous sulfate (IRON) 325 mg (65 mg iron) tablet Take 325 mg by mouth twice daily. cetirizine HCl (ZYRTEC) 10 mg chewable tablet Take 10 mg by mouth once daily. COMPOUNDED PRESCRIPTION kyloic Cholesterol 104 cholecalciferol (VITAMIN D-3) 5,000 unit tab Take 5,000 Units by mouth twice daily. amLODIPine (NORVASC) 5 mg tablet Take 1 tablet by mouth once daily. ranitidine (ZANTAC) 150 mg tablet Take 1 tablet by mouth daily at bedtime. ezetimibe (ZETIA) 10 mg tablet Take 1 tablet by mouth once daily. blood sugar diagnostic (BLOOD GLUCOSE TEST) test strip Use once daily to test blood sugar in the morning TRUE METRIX GLUCOSE METER misc 1 Each as directed. metoprolol tartrate, short acting, (LOPRESSOR) 25 mg tablet TAKE 1/2 (ONE-HALF) OF A TABLET BY MOUTH TWICE DAILY KLOR-CON M10 10 mEq tablet Take 10 mEq by mouth once daily. Insulin Hume, Disposable, (BD ULTRA-FINE BENNY PEN NEEDLES) 32 gauge x /32 ndle Use once daily with Lantus as directed Blood-Glucose Meter (FREESTYLE LITE METER) monitoring kit 1 Each as directed. gemfibrozil (LOPID) 600 mg tablet Take 1 tablet by mouth twice daily. furosemide (LASIX) 40 mg tablet Take 1 tablet by mouth once daily. potassium chloride (KLOR-CON 10) 10 mEq tablet Take 1 tablet by mouth once daily. VIT C/VIT E/LUTEIN/MIN/OMEGA-3 (OCUVITE ORAL) Take by mouth. triamcinolone acetonide (KENALOG) 0.1 % cream Apply 1 application to affected area twice daily as needed (rash). Apply sparingly to area for rash/itching. coenzyme Q10 (COQ-10) 100 mg cap Take 1 capsule by mouth. ONE DAILY MULTI-VITAMIN ORAL TAB Take one(1) tablet daily. CALTRATE-600 PLUS VITAMIN D3 600 MG-200 UNIT ORAL TAB TAKE TWO TABLETS DAILY. benzonatate (TESSALON PERLES) 100 mg capsule Take 1 capsule by mouth three times daily as needed for Cough. (Patient not taking: Reported on 05/31/2018 ) Lancets lancets Use as instructed (Patient not taking: Reported on 05/31/2018 ) clopidogrel (PLAVIX) 75 mg tablet Take 1 tablet by mouth once daily. COMPOUNDED PRESCRIPTION Nature's way Kidney Bladder COMPOUNDED PRESCRIPTION Nature's Way Garlic Parsley CHOLECALCIFEROL, VITAMIN D3, (VITAMIN D3 ORAL) Take 600 mg by mouth once daily. Physical Exam Findings: General exam: Normal, Extremeties right elbow diffuse joint tenderness to palpation. End ROM limitations in both flexion and extension. No redness or warmth of joint. x-ray: elbow effusion, osteophytes in multiple locations Assessment: right elbow pain with effusion- possible pseudogout elbow arthritis Plan: Risks, benefits, alternatives and personnel discussed with patient who consents to proceed. Patient wished to proceed. 6mg celestone with 2cc, 1% lidocaine and 2cc .5% marcaine was injected. Injection was carried out under sterile conditions through a POSTERIOR site into the right elbow joint. Patient had no immediate complications and tolerated the procedure well. Ruy Childress DO CNOV Observed: 05/31/2018 Status: COMPLETED Source: [place] 2:40 PM [facility] REPOSITORY Office Visit (UC) ABRAHAM GAGE ([id number]) 1940 M Date Time Provider Department 05/31/18 2:40 PM RUY CHILDRESS During your visit today, we recorded the following information about you: Malu Angulo Ma 05/31/2018 3:12 PM Signed Patient presents with: Established Patient: Right elbow pain - Last seen 05/27/17 left elbow pain with injection given AMB ROOMING INTAKE FLOWSHEET DATA Risk Screening Do you have concerns about personal safety or safety in the home?: No Pain Pain Score: 4/10 Pain Location: Elbow-Right Description: Sharp Duration Amount of Time: 5 Duration Units: Days Frequency: Intermittent (Occurs when he tries to use him arm) Intervention: Medication Patient states he is having pain in his right elbow when he tries to comb his hair, eating a sandwich and raise his arm. The pain has been keeping him up at night and unable to sleep. with patient today. Patient had x-ray done today. Taking Tylenol for the pain and helps take the edge off. Patient states he does have a history of gout. Ruy Childress, DO 05/31/2018 3:12 PM Signed Abraham Gage presents with pain, swelling and painful movement in the right elbow. Associated symptoms are, stiffness. Symptoms began about 5 days ago and since then have been continuous. The pain is rated as 4 on a scale of 1-10. Symptoms are not a result of an injury. Patient has history of pseudogout, and states it feels similar to those episodes. Elbow feels tight, but is not warm or throbbing. No fever or chills, or recent illness. PAST MEDICAL HISTORY Diagnosis Date - Abdominal aneurysm without mention of rupture 09/2015 4.15 cm - Acute gastritis without mention of hemorrhage 04/26/2017 EGD by Cebul - AMI (acute myocardial infarction) (HCC) 07/03/2013 - Anemia - Carotid atherosclerosis 05/2014 - CKD stage G3b/A2, GFR 30-44 and albumin creatinine ratio 30-299 mg/g (HCC) AVOID NEPHROTOXIC MEDICATIONS - Diabetes mellitus type 2, uncontrolled, without complications (HCC) - Diaphragmatic hernia without mention of obstruction or gangrene - Diverticulosis of colon (without mention of hemorrhage) 04/26/2017 colonoscopy by Cebul - Generalized osteoarthrosis, unspecified site - Internal hemorrhoid 04/26/2017 colonoscopy by Cebul - Iron deficiency anemia - Malignant neoplasm of prostate (HCC) - Other and unspecified hyperlipidemia - Unspecified cardiovascular disease 1994 CABG - Unspecified constipation - 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 Ojeda - REPAIR ING HERNIA,5+Y/O,REDUCIBL left Hernia repair, inguinal - SCREENING COLONSCOPY NOT HIGH RISK 04/26/2017 Dr. Yousif Triana; next screening colonoscopy in 10yrs Current Outpatient Prescriptions on File Prior to Visit: hydrocortisone 2.5 % cream Apply 1 application to affected area twice daily. Location: face blood sugar diagnostic (BLOOD GLUCOSE TEST) test strip Test blood sugar(s) 1 times daily. Dx: Type 2 DM - Uncontrolled E11.65 Insulin: Yes diltiazem CD (CARDIZEM CD, CARTIA XT) 120 mg 24 hr capsule Take 1 capsule by mouth once daily. losartan (COZAAR) 25 mg tablet Take 1 tablet by mouth once daily. isosorbide mononitrate ER (IMDUR) 30 mg 24 hr tablet Take 1 tablet by mouth once daily. insulin glargine (BASAGLAR KWIKPEN U-100 INSULIN) 100 unit/mL (3 mL) inpn Inject 10 Units subcutaneously daily at bedtime. ferrous sulfate (IRON) 325 mg (65 mg iron) tablet Take 325 mg by mouth twice daily. cetirizine HCl (ZYRTEC) 10 mg chewable tablet Take 10 mg by mouth once daily. COMPOUNDED PRESCRIPTION kyloic Cholesterol 104 cholecalciferol (VITAMIN D-3) 5,000 unit tab Take 5,000 Units by mouth twice daily. amLODIPine (NORVASC) 5 mg tablet Take 1 tablet by mouth once daily. ranitidine (ZANTAC) 150 mg tablet Take 1 tablet by mouth daily at bedtime. ezetimibe (ZETIA) 10 mg tablet Take 1 tablet by mouth once daily. blood sugar diagnostic (BLOOD GLUCOSE TEST) test strip Use once daily to test blood sugar in the morning TRUE METRIX GLUCOSE METER misc 1 Each as directed. metoprolol tartrate, short acting, (LOPRESSOR) 25 mg tablet TAKE 1/2 (ONE-HALF) OF A TABLET BY MOUTH TWICE DAILY KLOR-CON M10 10 mEq tablet Take 10 mEq by mouth once daily. Insulin Hume, Disposable, (BD ULTRA-FINE BENNY PEN NEEDLES) 32 gauge x ndle Use once daily with Lantus as directed Blood-Glucose Meter (FREESTYLE LITE METER) monitoring kit 1 Each as directed. gemfibrozil (LOPID) 600 mg tablet Take 1 tablet by mouth twice daily. furosemide (LASIX) 40 mg tablet Take 1 tablet by mouth once daily. potassium chloride (KLOR-CON 10) 10 mEq tablet Take 1 tablet by mouth once daily. VIT C/VIT E/LUTEIN/MIN/OMEGA-3 (OCUVITE ORAL) Take by mouth. triamcinolone acetonide (KENALOG) 0.1 % cream Apply 1 application to affected area twice daily as needed (rash). Apply sparingly to area for rash/itching. coenzyme Q10 (COQ-10) 100 mg cap Take 1 capsule by mouth. ONE DAILY MULTI-VITAMIN ORAL TAB Take one(1) tablet daily. CALTRATE-600 PLUS VITAMIN D3 600 MG-200 UNIT ORAL TAB TAKE TWO TABLETS DAILY. benzonatate (TESSALON PERLES) 100 mg capsule Take 1 capsule by mouth three times daily as needed for Cough. (Patient not taking: Reported on 05/31/2018 ) Lancets lancets Use as instructed (Patient not taking: Reported on 05/31/2018 ) clopidogrel (PLAVIX) 75 mg tablet Take 1 tablet by mouth once daily. COMPOUNDED PRESCRIPTION Nature's way Kidney Bladder COMPOUNDED PRESCRIPTION Nature[facility] Way Garlic Parsley CHOLECALCIFEROL, VITAMIN D3, (VITAMIN D3 ORAL) Take 600 mg by mouth once daily. Physical Exam Findings: General exam: Normal, Extremeties right elbow diffuse joint tenderness to palpation. End ROM limitations in both flexion and extension. No redness or warmth of joint. x-ray: elbow effusion, osteophytes in multiple locations Assessment: right elbow pain with effusion- possible pseudogout elbow arthritis Plan: Risks, benefits, alternatives and personnel discussed with patient who consents to proceed. Patient wished to proceed. 6mg celestone with 2cc, 1% lidocaine and 2cc .5% marcaine was injected. Injection was carried out under sterile conditions through a POSTERIOR site into the right elbow joint. Patient had no immediate complications and tolerated the procedure well. Ruy Childress DO Referring Provider: SELF [200] Allergies As of Date: 05/31/2018 Noted Allergy Reaction ATORVASTATIN 10/18/2017 16 - Unknown CRESTOR (ROSUVASTATIN CALCIUM) 04/24/2013 14 - Other: See Comments Comments: Muscle pain GLUCOSAMINE 06/27/2017 16 - Unknown Comments: Nerve pain MOTRIN (IBUPROFEN) 01/19/2006 2 - Rash PRAVASTATIN 02/19/2013 14 - Other: See Comments Comments: muscle aches EJDRIFY-BFV-VIP REDUCTASE INHIBIT*10/09/2014 14 - Other: See Comments Comments: myalgia Date Reviewed: 05/31/2018 Reviewed by: Malu Angulo Ma - Fully Assessed Reason for Visit: Established Patient [175] Cmt: Right elbow pain - Last seen 05/27/17 left elbow pain with injection given Primary Visit Diagnosis: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] Order(s):[] betamethasone acetate-betamethasone sodium phosphate 6 mg injection (CELESTONE)Disp: Rfl: Prescriptions as of 05/31/2018 Sig: HYDROCORTISONE 2.5 % TOPICAL * Apply 1 application to affect* BLOOD SUGAR DIAGNOSTIC STRIPS Test blood sugar(s) 1 times d* DILTIAZEM SR 120 MG 24 HR CAP Take 1 capsule by mouth once * LOSARTAN 25 MG TABLET Take 1 tablet by mouth once d* ISOSORBIDE MONONITRATE ER 30 * Take 1 tablet by mouth once d* INSULIN GLARGINE (U-100) 100 * Inject 10 Units subcutaneousl* FERROUS SULFATE 325 MG (65 MG* Take 325 mg by mouth twice da* CETIRIZINE 10 MG CHEWABLE TAB* Take 10 mg by mouth once marvin* COMPOUNDED PRESCRIPTION kyloic Cholesterol 104 CHOLECALCIFEROL (VITAMIN D3) * Take 5,000 Units by mouth twi* AMLODIPINE 5 MG TABLET Take 1 tablet by mouth once d* RANITIDINE 150 MG TABLET Take 1 tablet by mouth daily * EZETIMIBE 10 MG TABLET Take 1 tablet by mouth once d* BLOOD SUGAR DIAGNOSTIC STRIPS Use once daily to test blood * TRUE METRIX GLUCOSE METER 1 Each as directed. METOPROLOL TARTRATE 25 MG TAB* TAKE 1/2 (ONE-HALF) OF A TABL* KLOR-CON M10 MEQ TABLET,EXTEN* Take 10 mEq by mouth once felice* PEN NEEDLE, DIABETIC 32 GAUGE* Use once daily with Lantus as* BLOOD-GLUCOSE METER KIT 1 Each as directed. GEMFIBROZIL 600 MG TABLET Take 1 tablet by mouth twice * FUROSEMIDE 40 MG TABLET Take 1 tablet by mouth once d* POTASSIUM CHLORIDE ER 10 MEQ * Take 1 tablet by mouth once d* OCUVITE ORAL Take by mouth. TRIAMCINOLONE ACETONIDE 0.1 %* Apply 1 application to affect* COENZYME Q10 100 MG CAPSULE Take 1 capsule by mouth. ONE DAILY MULTI-VITAMIN TABLET Take one(1) tablet daily. CALTRATE-600 PLUS VITAMIN D3 * TAKE TWO TABLETS DAILY. BENZONATATE 100 MG CAPSULE Take 1 capsule by mouth three* Patient not taking: Reported on 05/31/2018 LANCETS Use as instructed Patient not taking: Reported on 05/31/2018 CLOPIDOGREL 75 MG TABLET Take 1 tablet by mouth once d* COMPOUNDED PRESCRIPTION Nature's way Kidney Bladder COMPOUNDED PRESCRIPTION Nature[facility] Way Garlic Parsley VITAMIN D3 ORAL Take 600 mg by mouth once felice* Problem List As Of Date 05/31/2018 Noted Resolved GENERAL OSTEOARTHROSIS [M15.9] DIAPHRAGMATIC HERNIA [K44.9] ASCVD [I25.10] More... 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] INVALID FOR* L-S Radiculopathy [M54.17] INVALID FOR* Thoracic or Lumbosacral Neuritis or Radiculitis*INVALID FOR* Glucose intolerance (pre-diabetes) [R73.03] INVALID FOR*07/04/2014 CAD (coronary artery disease) [I25.10] INVALID FOR* Gout [M10.9] INVALID FOR* AAA (abdominal aortic aneurysm) [I71.4] INVALID FOR* Diabetes mellitus type 2, uncontrolled, without*INVALID FOR* Stented coronary artery [Z95.5] INVALID FOR* Fatigue [R53.83] INVALID FOR* Absolute anemia [D64.9] INVALID FOR* CKD (chronic kidney disease) stage 3, GFR 30-59*INVALID FOR* Diarrhea [R19.7] INVALID FOR* CKD (chronic kidney disease) stage 4, GFR 15-29*INVALID FOR* Coronary artery 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 rich plaqu*INVALID FOR* Low blood potassium [E87.6] INVALID FOR* Uncontrolled type 2 diabetes mellitus without c*INVALID FOR* Controlled type 2 diabetes mellitus without com*INVALID FOR* Hypoalbuminemia [E88.09] INVALID FOR* Generalized abdominal pain [R10.84] INVALID FOR* Blood in stool [K92.1] INVALID FOR* 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] INVALID FOR* Psoriasis [L40.9] INVALID FOR* Prescriptions ordered this encounter Disp Refills Start End BETAMETHASONE ACETATE AND SODIUM DYLON* 05/31/2018 05/31/2018 Route: OTHER Encounter Status:Closed by RUY CHILDRESS DO, V on 05/31/18 PROGRESS Observed: 05/31/2018 Status: COMPLETED Source: [place] 2:31 PM [facility] REPOSITORY HNO ID: [id number] Author: Malu Angulo Ma Service: (none) Author Type: (none) Type: Progress Notes Filed: 05/31/2018 3:12 PM Note Text: Patient presents with: Established Patient: Right elbow pain - Last seen 05/27/17 left elbow pain with injection given AMB ROOMING INTAKE FLOWSHEET DATA Risk Screening Do you have concerns about personal safety or safety in the home?: No Pain Pain Score: 4/10 Pain Location: Elbow-Right Description: Sharp Duration Amount of Time: 5 Duration Units: Days Frequency: Intermittent (Occurs when he tries to use him arm) Intervention: Medication Patient states he is having pain in his right elbow when he tries to comb his hair, eating a sandwich and raise his arm. The pain has been keeping him up at night and unable to sleep. with patient today. Patient had x-ray done today. Taking Tylenol for the pain and helps take the edge off. Patient states he does have a history of gout. XR ELBOW 2V AP/LAT Observed: 05/31/2018 Status: F Source: [place] RT 2:10 PM [facility] REPOSITORY * * *Final Report* * * DATE OF EXAM: May 31 2018 2:10PM [id number] [id number] - XR ELBOW 2V AP/LAT RT / PROCEDURE REASON: Right elbow pain * * * * Physician Interpretation * * * * RIGHT ELBOW TECHNIQUE: AP, lateral views: 2 Images HISTORY: Pain COMPARISON: None RESULT: Prominent triceps enthesophyte is present with overlying mild soft tissue fullness in the region of the olecranon bursa. Large joint effusion is present. No joint space narrowing or other arthritic abnormality is seen. Foci of ossification medially and laterally are with chronic repetitive trauma. IMPRESSION: LARGE JOINT EFFUSION OF UNCERTAIN ETIOLOGY. MILD FULLNESS IN THE OLECRANON BURSA. 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: PSCB Transcribe Date/Time: May 31 2018 2:50P Dictated by : ALIX CARCAMO MD This examination was interpreted and the report reviewed and electronically signed by: ALIX CARCAMO MD on May 31 2018 2:51PM EST [id number] PROGRESS Observed: 05/31/2018 Status: COMPLETED Source: [place] 2:02 PM [facility] REPOSITORY HNO ID: [id number] Author: Aster Herman Service: (none) Author Type: (none) Type: Progress Notes Filed: 05/31/2018 2:10 PM Note Text: Radiology Service Progress Note PATIENT NAME: Abraham Gage DATE OF SERVICE: May 31, 2018 TIME: 2:02 PM PATIENT IDENTITY VERIFICATION COMPLETED USING TWO (2) METHODS: Patient confirmed name verbally and Date of . PATIENT GENDER DATA: Male PATIENT RELEVANT IMPLANT DATA REVIEWED: Not Applicable RADIOLOGY DEPARTMENT: General X-ray: Exam(s) Completed: Upper Extremity X-Ray(s): Elbow, right : PERIPHERAL IV DATA: Not applicable SIGNED BY: Aster Herman May 31, 2018 2:02 PM PULMONARY FUNCTION Observed: 05/22/2018 Status: F Source: [place] REPORT COMP 4:14 PM [facility] REPOSITORY [facility] Pulmonary Services/Neurology [address] [place] [address] MR#: [id number] Acct: [id number] Name: ABRAHAM GAGE Rep #: [id number] : 1940 77 From: Scooby Art MD Referring Dr: Rich Sanchez MD Status: REG CLI Ordering Dr: Date: Location: N Sex: M C COMPLETE PULMONARY FUNCTION TEST INTERPRETATION Brief HPI: Patient is a 77 year old male, currently under the care of Dr. Sanchez, who presents to [facility] for complete pulmonary function tests secondary to diagnosis of dyspnea. Respiratory therapist reports good effort and reproducible results. Interpretation: Forced expiration spirometry shows a mild large airways obstructive ventilatory defect with an FEV1 of 80% predicted. There is no significant bronchodilator response by strict ATS criteria. Spirograms are of good quality and plateau slowly, indicating slowly emptying areas of the lungs. The respiratory flow volume loop shows decreased expiratory flow rates at all lung volumes consistent with airway obstruction. Lung volumes by body plethysmography show a normal total lung capacity at 6.31 L, 106% predicted. All other lung volumes are within normal limits. Diffusion capacity by carbon monoxide is normal at 114% predicted. The airway resistance is elevated. No previous pulmonary function tests were available for review. Impression: Irreversible mild large airways obstructive ventilatory defect with preserved ejection fraction consistent with a diagnosis of chronic bronchitis 05/22/18 1614 <Electronically signed by Scooby Art MD> Date Scooby Art MD CC: Scooby Art MD; Rich Sanchez MD; Samson Bowens DO Date Dictated: 05/22/181606 Date Transcribed: 05/22/181606 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: AVERY Signed PROGRESS Observed: 05/08/2018 Status: COMPLETED Source: [place] 3:32 PM [facility] REPOSITORY HNO ID: [id number] Author: Julissa Mittal Service: (none) Author Type: Nurse Practitioner Type: Progress Notes Filed: 05/09/2018 8:10 AM Note Text: Abraham Gage a 77 year old male who is here today to discuss getting set up for small bowel capsule endoscopy. He has anemia presumed due to his kidney disease. Dr. Ragsdale requested small bowel capsule last year, but it wasn't set up by Dr. Triana since no on in the community does the testing. Dr. Ragsdale ordered SBFT instead. I saw the patient initially on 04/18/18 regarding anemia. We discussed EGD. The patient had an appointment set up with his rake operator shortly after that visit. He was instructed to see if Dr Sanchez would ok holding the Plavix for EGD. The patient reported back that holding Plavix would not be a problem. The patient declines going to [facility] for the small bowel capsule. I have explained that going to [facility] will require an additional visit and he is OK with that. Date of Procedure: 04/26/17 Pre-Operative Diagnosis: Anemia of undetermined etiology Post-Operative Diagnosis: Mild gastritis. Mild distal esophagitis. Coffee-ground material noted. Sigmoid and descending diverticulosis. Internal hemorrhoids Surgery/Procedure Performed:: Esophagogastroduodenoscopy with biopsies. Colonoscopy Description of Surgical Findings:: Timeout and informed consent was obtained. 76-year-old gentleman was taken to the endoscopy suite. His oropharynx anesthetized with Cetacaine. He was placed in a left lateral decubitus position. Under direct physician GIF-130 gastroscope was inserted into the esophageal inlet. Proximal mid distal esophagus did not appear to be remarkable. Minimal amount of distal esophagitis noted. No evidence of active bleeding from the esophagus. The scope was advanced into the stomach where in the antral area flecks of coffee-ground material was noted. There is no evidence of any active bleeding. Very mild erythema. No ulcerations. The scope was advanced through the pylorus. The first and second portions of the duodenum were inspected this did not appear to be remarkable. The scope was withdrawn back into the stomach retroflexed GE junction cardia noted. There were specks of coffee-ground type material within the cardia as well. I could not find a source of active bleeding. Scope was placed back in antegrade viewing position. Greater and lesser curvatures were inspected. The scope was advanced back down to the prepyloric area. Biopsy was obtained for histopathology. Excess fluid nurse aspirated free. The scope was withdrawn to the distal esophagus where irritation and friability was noted at a very short segment. This was biopsied as well. Seizure was completed with the patient tolerating it well. He was kept in the left up to good position. Digital rectal exam performed. Lax anal tone. Absent prostate. Flexible CF- 140 colonoscope was inserted into the rectum advanced to a somewhat tortuous sigmoid then with some transabdominal abdominal pressure was advanced through the transverse colon into the cecum. The cecum ileocecal valve area was achieved. The scope was carefully withdrawn from the cecum and ascending colon transverse colon descending colon and sigmoid colon. The descending and sigmoid colon has scattered diverticulosis but no evidence of bleeding. Scope was withdrawn to the rectum retroflex anorectal verge inspected hemorrhoidal changes noted. Excess fluid and air was aspirated free with the procedure completed and the patient tolerating it well. It is note that the photographic equipment for this procedure malfunction. I had photographs of the coffee-ground material of the stomach and of the cecum. Impression: Findings suggest an upper gastritis likely related to the patient's clopidogrel and aspirin and potassium replacements. We will initiate an H2 amrita because of his clopidogrel therapy. Left-sided diverticulosis but no evidence of any diverticular bleed. Internal hemorrhoids but no evidence of bleeding Will recommend follow-up hemoglobin and hematocrit after appropriate trial of therapy. Previous colonoscopy was 10 years ago. Next screening colonoscopy in 10 years. 05/31/17: STUDY: AIR-CONTRAST UPPER GI SERIES AND SMALL BOWEL FOLLOW-THROUGH EXAMINATION. REASON FOR EXAM: Male, 76 years old. Anemia. FLUOROSCOPY TIME (if supplied): (1:53) minutes/seconds TECHNIQUE: The patient ingested barium. Multiple images of the esophagus stomach and duodenum were obtained. Following this, a small bowel follow-through examination was performed. COMPARISON: None. FINDINGS: The patient is status post CABG. The esophagus shows evidence of a small sliding hiatal hernia. There is evidence of gastroesophageal reflux. The stomach and duodenum are unremarkable. There is no evidence of ulceration. No mass lesion is seen. A small bowel follow-through examination wasn't performed. The transit time is normal. No evidence of intrinsic or extrinsic small bowel disease. The terminal ileum is unremarkable. RAD/Upper GI/w Small Bowel IMPRESSION: Small sliding hiatal hernia with gastroesophageal reflux. Component Latest Ref Rng AND Units 10/24/2017 04/18/2018 WBC 3.70 - 11.00 k/uL 9.36 11.39 (H) RBC 4.20 - 6.00 m/uL 3.78 (L) 4.76 Hemoglobin 13.0 - 17.0 g/dL 9.4 (L) 12.0 (L) Hematocrit 39.0 - 51.0 % 32.9 (L) 42.2 MCV 80.0 - 100.0 fL 87.0 88.7 MCH 26.0 - 34.0 pG 24.9 (L) 25.2 (L) MCHC 30.5 - 36.0 g/dL 28.6 (L) 28.4 (L) RDW-CV 11.5 - 15.0 % 17.8 (H) 17.9 (H) Platelet Count 150 - 400 k/uL 474 (H) 377 MPV 9.0 - 12.7 fL 9.2 9.9 Neut% % 69.5 Abs Neut (ANC) 1.45 - 7.50 k/uL 7.90 (H) Lymph% % 17.6 Abs Lymph 1.00 - 4.00 k/uL 2.01 [place]% % 8.4 Abs [place] <0.87 k/uL 0.96 (H) Eosin% % 4.1 Abs Eosin <0.46 k/uL 0.47 (H) Baso% % 0.4 Abs Baso <0.11 k/uL 0.05 Nucleated Reds 0 /100 WBC 0.0 Absolute nRBC <0.01 k/uL <0.01 <0.01 Diff Type Auto Diff Component Latest Ref Rng AND Units 04/18/2018 Iron 41 - 186 ug/dL 28 (L) TIBC 232 - 386 ug/dL 434 (H) Transferrin Saturation 15 - 57 % 6 (L) Component Latest Ref Rng AND Units 01/23/2018 Protein, Total 6.3 - 8.0 g/dL 6.1 (L) Albumin 3.9 - 4.9 g/dL 3.8 (L) Calcium 8.5 - 10.2 mg/dL 9.5 Bilirubin, Total 0.2 - 1.3 mg/dL 0.3 Alkaline Phosphatase 36 - 108 U/L 81 AST 14 - 40 U/L 17 Glucose 74 - 99 mg/dL 87 BUN 9 - 24 mg/dL 33 (H) Creatinine 0.73 - 1.22 mg/dL 1.89 (H) Sodium 136 - 144 mmol/L 140 Potassium 3.7 - 5.1 mmol/L 4.0 Chloride 97 - 105 mmol/L 98 CO2 22 - 30 mmol/L 28 Anion Gap 9 - 18 mmol/L 14 ALT 10 - 54 U/L 14 eGFR- 42 eGFR-All Other Races . 35 Presenting complaint: The patient denies change in bowel habits, rectal bleeding or abdominal pain. Having a bowel movement daily. The patient tells me that he takes 2 slow Fe a day. Still feeling tired and run down. He tells me they have been wondering about this since I had my last stents put in (2012). ? Having a bowel movement daily. He tells me that he might see blood only if I'm constipated. Otherwise it's black and tarry from all the iron I take. ? Taking ranitidine daily. Denies any issues unless he eats something spicy like [employer] pizza. ? ? REVIEW OF SYSTEMS: GENERAL: Positive for fatigue. RESPIRATORY: Shortness of breath. Patient states Sanchez feels the SOB is due to anemia and not cardiac. CARDIOVASCULAR: CABG 1994. Hypertension. History of IN (12/15). Multiple stents. Negative stress test 11/09/17. Sees Dr. Sanchez at [facility]. GI: The patient states that his appetite has been good. He does get hungry. There has been no nausea, no vomiting. He denies dysphagia and denies odynophagia. There has rarely been indigestion or heartburn. There has not been regurgitation. Bowel habits have been regular. There has occasionally been diarrhea. There has rarely been constipation. The patient denies rectal bleeding. There has been melena, but also taking iron. No abdominal pain. HEMATOLOGY/LYMPHOLOGY: Taking Plavix. DEVANTE. ENDOCRINE: Diabetes requiring insulin. NEURO: Intermittent neuropathy of both feet. No history of headaches, syncope, paralysis, seizures or tremors. All other reviewed and negative other than HPI. PAST MEDICAL HISTORY Diagnosis Date - Abdominal aneurysm without mention of rupture 09/2015 4.15 cm - Acute gastritis without mention of hemorrhage 04/26/2017 EGD by [facility] - AMI (acute myocardial infarction) (HCC) 07/03/2013 - Carotid atherosclerosis 05/2014 - CKD stage G3b/A2, GFR 30-44 and albumin creatinine ratio 30-299 mg/g (HCC) AVOID NEPHROTOXIC MEDICATIONS - Diabetes mellitus type 2, uncontrolled, without complications (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 Ojeda - REPAIR ING HERNIA,5+Y/O,REDUCIBL left Hernia repair, inguinal - SCREENING COLONSCOPY NOT HIGH RISK 04/26/2017 Dr. Yousif Triana; next screening colonoscopy in 10yrs FAMILY HISTORY Problem Relation Age of Onset - Hypertension Father - COPD Father - Heart Mother Current Outpatient Prescriptions: hydrocortisone 2.5 % cream Apply 1 application to affected area twice daily. Location: face Disp: 30 g Rfl: 2 predniSONE (DELTASONE) 10 mg tablet Take 1 tablet by mouth once daily for 20 days. Disp: 20 tablet Rfl: 3 blood sugar diagnostic (BLOOD GLUCOSE TEST) test strip Test blood sugar(s) 1 times daily. Dx: Type 2 DM - Uncontrolled E11.65 Insulin: Yes Disp: 300 Strip Rfl: 3 diltiazem CD (CARDIZEM CD, CARTIA XT) 120 mg 24 hr capsule Take 1 capsule by mouth once daily. Disp: 90 capsule Rfl: 3 losartan (COZAAR) 25 mg tablet Take 1 tablet by mouth once daily. Disp: 90 tablet Rfl: 3 isosorbide mononitrate ER (IMDUR) 30 mg 24 hr tablet Take 1 tablet by mouth once daily. Disp: 90 tablet Rfl: 3 insulin glargine (BASAGLAR KWIKPEN U-100 INSULIN) 100 unit/mL (3 mL) inpn Inject 10 Units subcutaneously daily at bedtime. Disp: 5 Pen Rfl: 3 ferrous sulfate (IRON) 325 mg (65 mg iron) tablet Take 325 mg by mouth twice daily. Disp: Rfl: cetirizine HCl (ZYRTEC) 10 mg chewable tablet Take 10 mg by mouth once daily. Disp: Rfl: COMPOUNDED PRESCRIPTION kyloic Cholesterol 104 Disp: Rfl: cholecalciferol (VITAMIN D-3) 5,000 unit tab Take 5,000 Units by mouth twice daily. Disp: Rfl: amLODIPine (NORVASC) 5 mg tablet Take 1 tablet by mouth once daily. Disp: 90 tablet Rfl: 3 ranitidine (ZANTAC) 150 mg tablet Take 1 tablet by mouth daily at bedtime. Disp: 90 tablet Rfl: 3 ezetimibe (ZETIA) 10 mg tablet Take 1 tablet by mouth once daily. Disp: 90 tablet Rfl: 3 benzonatate (TESSALON PERLES) 100 mg capsule Take 1 capsule by mouth three times daily as needed for Cough. Disp: 30 capsule Rfl: 0 blood sugar diagnostic (BLOOD GLUCOSE TEST) test strip Use once daily to test blood sugar in the morning Disp: 1 Bottle Rfl: 5 TRUE METRIX GLUCOSE METER misc 1 Each as directed. Disp: Rfl: 0 metoprolol tartrate, short acting, (LOPRESSOR) 25 mg tablet TAKE 1/2 (ONE-HALF) OF A TABLET BY MOUTH TWICE DAILY Disp: Rfl: 3 KLOR-CON M10 10 mEq tablet Take 10 mEq by mouth once daily. Disp: Rfl: 3 Insulin [place], Disposable, (BD ULTRA-FINE BENNY PEN NEEDLES) 32 gauge x 5/32 ndle Use once daily with Lantus as directed Disp: 100 Each Rfl: 3 Blood-Glucose Meter (FREESTYLE LITE METER) monitoring kit 1 Each as directed. Disp: 1 Each Rfl: 0 Lancets lancets Use as instructed Disp: 50 Each Rfl: 0 gemfibrozil (LOPID) 600 mg tablet Take 1 tablet by mouth twice daily. Disp: 180 tablet Rfl: 3 furosemide (LASIX) 40 mg tablet Take 1 tablet by mouth once daily. Disp: 90 tablet Rfl: 3 clopidogrel (PLAVIX) 75 mg tablet Take 1 tablet by mouth once daily. Disp: 90 tablet Rfl: 3 potassium chloride (KLOR-CON 10) 10 mEq tablet Take 1 tablet by mouth once daily. Disp: 90 tablet Rfl: 3 VIT C/VIT E/LUTEIN/MIN/OMEGA-3 (OCUVITE ORAL) Take by mouth. Disp: Rfl: COMPOUNDED PRESCRIPTION [facility] [facility] Kidney Bladder Disp: Rfl: COMPOUNDED PRESCRIPTION [facility] [address] Garlic Parsley Disp: Rfl: triamcinolone acetonide (KENALOG) 0.1 % cream Apply 1 application to affected area twice daily as needed (rash). Apply sparingly to area for rash/itching. Disp: 60 g Rfl: 3 CHOLECALCIFEROL, VITAMIN D3, (VITAMIN D3 ORAL) Take 600 mg by mouth once daily. Disp: Rfl: coenzyme Q10 (COQ-10) 100 mg cap Take 1 capsule by mouth. Disp: Rfl: 0 ONE DAILY MULTI-VITAMIN ORAL TAB Take one(1) tablet daily. Disp: Rfl: 0 CALTRATE-600 PLUS VITAMIN D3 600 MG-200 UNIT ORAL TAB TAKE TWO TABLETS DAILY. Disp: Rfl: 0 No current facility-administered medications for this visit. SOCIAL HISTORY: Patient is . He quit smoking over 30 years ago ands reports his alcohol use as very rarely. PHYSICAL EXAMINATION: Blood pressure 135/65, pulse 62, height 172.7 cm (5' 8), weight 78 kg (172 lb). General Appearance: Well appearing, alert, in no acute distress, well-hydrated, well nourished. Skin: Skin color, texture, turgor normal, no suspicious rashes or lesions. Head: Normocephalic, no masses, lesions or abnormalities. Eyes: Anicteric sclera. Neck: Supple, no adenopathy; thyroid symmetric, normal size. Lungs: Lungs clear to auscultation. No wheezing, rhonchi, rales. Heart: RRR without murmur. Abdomen: Abdomen soft, non-tender. Bowel sounds normal. No masses, organomegaly. Extremities: No deformities, edema. Peripheral Pulses: Normal. Impression: iron deficiency anemia Plan: Willing to go to [facility] for small bowel capsule. He is aware that there is usually an initial visit before testing. There is the possibility of need to repeat EGD and/or colon before proceeding with study. I have personally interviewed and examined this patient. I have reviewed the information that the MA entered for this encounter. I spent 20 minutes in the visit, with greater than 50% of the total igym-ej-zema time of the visit in counseling and coordination of care. Julissa Mittal RN CHIEF TELEPHONE OPERATOR.DIP FILLER CNOV Observed: 05/08/2018 Status: COMPLETED Source: [place] 3:20 PM [facility] REPOSITORY Office Visit ([facility]) ABRAHAM GAGE ([id number]) 1940 M Date Time Provider Department 05/08/18 3:20 PM JULISSA MITTAL (UROLOGIC SURGEON) [facility] During your visit today, we recorded the following information about you: Pulse Blood pressure Weight Height 62/minute 135/65 78 kg 1.727 m Julissa Mittal RN APRN.DIP FILLER 05/09/2018 8:10 AM Signed Abraham Gage a 77 year old male who is here today to discuss getting set up for small bowel capsule endoscopy. He has anemia presumed due to his kidney disease. Dr. Ragsdale requested small bowel capsule last year, but it wasn't set up by Dr. Triana since no on in the community does the testing. Dr. Ragsdale ordered SBFT instead. I saw the patient initially on 04/18/18 regarding anemia. We discussed EGD. The patient had an appointment set up with his rake operator shortly after that visit. He was instructed to see if Dr Sanchez would ok holding the Plavix for EGD. The patient reported back that holding Plavix would not be a problem. The patient declines going to [facility] for the small bowel capsule. I have explained that going to [facility] will require an additional visit and he is OK with that. Date of Procedure: 04/26/17 Pre-Operative Diagnosis: Anemia of undetermined etiology Post-Operative Diagnosis: Mild gastritis. Mild distal esophagitis. Coffee-ground material noted. Sigmoid and descending diverticulosis. Internal hemorrhoids Surgery/Procedure Performed:: Esophagogastroduodenoscopy with biopsies. Colonoscopy Description of Surgical Findings:: Timeout and informed consent was obtained. 76-year-old gentleman was taken to the endoscopy suite. His oropharynx anesthetized with Cetacaine. He was placed in a left lateral decubitus position. Under direct physician GIF-130 gastroscope was inserted into the esophageal inlet. Proximal mid distal esophagus did not appear to be remarkable. Minimal amount of distal esophagitis noted. No evidence of active bleeding from the esophagus. The scope was advanced into the stomach where in the antral area flecks of coffee-ground material was noted. There is no evidence of any active bleeding. Very mild erythema. No ulcerations. The scope was advanced through the pylorus. The first and second portions of the duodenum were inspected this did not appear to be remarkable. The scope was withdrawn back into the stomach retroflexed GE junction cardia noted. There were specks of coffee-ground type material within the cardia as well. I could not find a source of active bleeding. Scope was placed back in antegrade viewing position. Greater and lesser curvatures were inspected. The scope was advanced back down to the prepyloric area. Biopsy was obtained for histopathology. Excess fluid nurse aspirated free. The scope was withdrawn to the distal esophagus where irritation and friability was noted at a very short segment. This was biopsied as well. Seizure was completed with the patient tolerating it well. He was kept in the left up to good position. Digital rectal exam performed. Lax anal tone. Absent prostate. Flexible CF-140 colonoscope was inserted into the rectum advanced to a somewhat tortuous sigmoid then with some transabdominal abdominal pressure was advanced through the transverse colon into the cecum. The cecum ileocecal valve area was achieved. The scope was carefully withdrawn from the cecum and ascending colon transverse colon descending colon and sigmoid colon. The descending and sigmoid colon has scattered diverticulosis but no evidence of bleeding. Scope was withdrawn to the rectum retroflex anorectal verge inspected hemorrhoidal changes noted. Excess fluid and air was aspirated free with the procedure completed and the patient tolerating it well. It is note that the photographic equipment for this procedure malfunction. I had photographs of the coffee-ground material of the stomach and of the cecum. Impression: Findings suggest an upper gastritis likely related to the patient's clopidogrel and aspirin and potassium replacements. We will initiate an H2 amrita because of his clopidogrel therapy. Left-sided diverticulosis but no evidence of any diverticular bleed. Internal hemorrhoids but no evidence of bleeding Will recommend follow-up hemoglobin and hematocrit after appropriate trial of therapy. Previous colonoscopy was 10 years ago. Next screening colonoscopy in 10 years. 05/31/17: STUDY: AIR-CONTRAST UPPER GI SERIES AND SMALL BOWEL FOLLOW-THROUGH EXAMINATION. REASON FOR EXAM: Male, 76 years old. Anemia. FLUOROSCOPY TIME (if supplied): (1:53) minutes/seconds TECHNIQUE: The patient ingested barium. Multiple images of the esophagus stomach and duodenum were obtained. Following this, a small bowel follow-through examination was performed. COMPARISON: None. FINDINGS: The patient is status post CABG. The esophagus shows evidence of a small sliding hiatal hernia. There is evidence of gastroesophageal reflux. The stomach and duodenum are unremarkable. There is no evidence of ulceration. No mass lesion is seen. A small bowel follow-through examination wasn't performed. The transit time is normal. No evidence of intrinsic or extrinsic small bowel disease. The terminal ileum is unremarkable. RAD/Upper GI/w Small Bowel IMPRESSION: Small sliding hiatal hernia with gastroesophageal reflux. Component Latest Ref Rng AND Units 10/24/2017 04/18/2018 WBC 3.70 - 11.00 k/uL 9.36 11.39 (H) RBC 4.20 - 6.00 m/uL 3.78 (L) 4.76 Hemoglobin 13.0 - 17.0 g/dL 9.4 (L) 12.0 (L) Hematocrit 39.0 - 51.0 % 32.9 (L) 42.2 MCV 80.0 - 100.0 fL 87.0 88.7 MCH 26.0 - 34.0 pG 24.9 (L) 25.2 (L) MCHC 30.5 - 36.0 g/dL 28.6 (L) 28.4 (L) RDW-CV 11.5 - 15.0 % 17.8 (H) 17.9 (H) Platelet Count 150 - 400 k/uL 474 (H) 377 MPV 9.0 - 12.7 fL 9.2 9.9 Neut% % 69.5 Abs Neut (ANC) 1.45 - 7.50 k/uL 7.90 (H) Lymph% % 17.6 Abs Lymph 1.00 - 4.00 k/uL 2.01 [place]% % 8.4 Abs [place] <0.87 k/uL 0.96 (H) Eosin% % 4.1 Abs Eosin <0.46 k/uL 0.47 (H) Baso% % 0.4 Abs Baso <0.11 k/uL 0.05 Nucleated Reds 0 /100 WBC 0.0 Absolute nRBC <0.01 k/uL <0.01 <0.01 Diff Type Auto Diff Component Latest Ref Rng AND Units 04/18/2018 Iron 41 - 186 ug/dL 28 (L) TIBC 232 - 386 ug/dL 434 (H) Transferrin Saturation 15 - 57 % 6 (L) Component Latest Ref Rng AND Units 01/23/2018 Protein, Total 6.3 - 8.0 g/dL 6.1 (L) Albumin 3.9 - 4.9 g/dL 3.8 (L) Calcium 8.5 - 10.2 mg/dL 9.5 Bilirubin, Total 0.2 - 1.3 mg/dL 0.3 Alkaline Phosphatase 36 - 108 U/L 81 AST 14 - 40 U/L 17 Glucose 74 - 99 mg/dL 87 BUN 9 - 24 mg/dL 33 (H) Creatinine 0.73 - 1.22 mg/dL 1.89 (H) Sodium 136 - 144 mmol/L 140 Potassium 3.7 - 5.1 mmol/L 4.0 Chloride 97 - 105 mmol/L 98 CO2 22 - 30 mmol/L 28 Anion Gap 9 - 18 mmol/L 14 ALT 10 - 54 U/L 14 eGFR- 42 eGFR-All Other Races . 35 Presenting complaint: The patient denies change in bowel habits, rectal bleeding or abdominal pain. Having a bowel movement daily. The patient tells me that he takes 2 slow Fe a day. Still feeling tired and run down. He tells me they have been wondering about this since I had my last stents put in (2012). ? Having a bowel movement daily. He tells me that he might see blood only if I'm constipated. Otherwise it's black and tarry from all the iron I take. ? Taking ranitidine daily. Denies any issues unless he eats something spicy like [employer] pizza. ? ? REVIEW OF SYSTEMS: GENERAL: Positive for fatigue. RESPIRATORY: Shortness of breath. Patient states Sanchez feels the SOB is due to anemia and not cardiac. CARDIOVASCULAR: CABG 1994. Hypertension. History of IN (12/15). Multiple stents. Negative stress test 11/09/17. Sees Dr. Sanchez at [facility]. GI: The patient states that his appetite has been good. He does get hungry. There has been no nausea, no vomiting. He denies dysphagia and denies odynophagia. There has rarely been indigestion or heartburn. There has not been regurgitation. Bowel habits have been regular. There has occasionally been diarrhea. There has rarely been constipation. The patient denies rectal bleeding. There has been melena, but also taking iron. No abdominal pain. HEMATOLOGY/LYMPHOLOGY: Taking Plavix. DEVANTE. ENDOCRINE: Diabetes requiring insulin. NEURO: Intermittent neuropathy of both feet. No history of headaches, syncope, paralysis, seizures or tremors. All other reviewed and negative other than HPI. PAST MEDICAL HISTORY Diagnosis Date - Abdominal aneurysm without mention of rupture 09/2015 4.15 cm - Acute gastritis without mention of hemorrhage 04/26/2017 EGD by [facility] - AMI (acute myocardial infarction) (HCC) 07/03/2013 - Carotid atherosclerosis 05/2014 - CKD stage G3b/A2, GFR 30-44 and albumin creatinine ratio 30-299 mg/g (HCC) AVOID NEPHROTOXIC MEDICATIONS - Diabetes mellitus type 2, uncontrolled, without complications (HCC) - Diaphragmatic hernia without mention of obstruction or gangrene - Diverticulosis of colon (without mention of hemorrhage) 04/26/2017 colonoscopy by [facility] - Generalized osteoarthrosis, unspecified site - Internal hemorrhoid 04/26/2017 colonoscopy by [facility] - Iron deficiency anemia - Malignant neoplasm of prostate (HCC) - Other and unspecified hyperlipidemia - Unspecified cardiovascular disease 1994 CABG - Unspecified constipation - 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 Ojeda - REPAIR ING HERNIA,5+Y/O,REDUCIBL left Hernia repair, inguinal - SCREENING COLONSCOPY NOT HIGH RISK 04/26/2017 Dr. Yousif Triana; next screening colonoscopy in 10yrs FAMILY HISTORY Problem Relation Age of Onset - Hypertension Father - COPD Father - Heart Mother Current Outpatient Prescriptions: hydrocortisone 2.5 % cream Apply 1 application to affected area twice daily. Location: face Disp: 30 g Rfl: 2 predniSONE (DELTASONE) 10 mg tablet Take 1 tablet by mouth once daily for 20 days. Disp: 20 tablet Rfl: 3 blood sugar diagnostic (BLOOD GLUCOSE TEST) test strip Test blood sugar(s) 1 times daily. Dx: Type 2 DM - Uncontrolled E11.65 Insulin: Yes Disp: 300 Strip Rfl: 3 diltiazem CD (CARDIZEM CD, CARTIA XT) 120 mg 24 hr capsule Take 1 capsule by mouth once daily. Disp: 90 capsule Rfl: 3 losartan (COZAAR) 25 mg tablet Take 1 tablet by mouth once daily. Disp: 90 tablet Rfl: 3 isosorbide mononitrate ER (IMDUR) 30 mg 24 hr tablet Take 1 tablet by mouth once daily. Disp: 90 tablet Rfl: 3 insulin glargine (BASAGLAR KWIKPEN U-100 INSULIN) 100 unit/mL (3 mL) inpn Inject 10 Units subcutaneously daily at bedtime. Disp: 5 Pen Rfl: 3 ferrous sulfate (IRON) 325 mg (65 mg iron) tablet Take 325 mg by mouth twice daily. Disp: Rfl: cetirizine HCl (ZYRTEC) 10 mg chewable tablet Take 10 mg by mouth once daily. Disp: Rfl: COMPOUNDED PRESCRIPTION kyloic Cholesterol 104 Disp: Rfl: cholecalciferol (VITAMIN D-3) 5,000 unit tab Take 5,000 Units by mouth twice daily. Disp: Rfl: amLODIPine (NORVASC) 5 mg tablet Take 1 tablet by mouth once daily. Disp: 90 tablet Rfl: 3 ranitidine (ZANTAC) 150 mg tablet Take 1 tablet by mouth daily at bedtime. Disp: 90 tablet Rfl: 3 ezetimibe (ZETIA) 10 mg tablet Take 1 tablet by mouth once daily. Disp: 90 tablet Rfl: 3 benzonatate (TESSALON PERLES) 100 mg capsule Take 1 capsule by mouth three times daily as needed for Cough. Disp: 30 capsule Rfl: 0 blood sugar diagnostic (BLOOD GLUCOSE TEST) test strip Use once daily to test blood sugar in the morning Disp: 1 Bottle Rfl: 5 TRUE METRIX GLUCOSE METER misc 1 Each as directed. Disp: Rfl: 0 metoprolol tartrate, short acting, (LOPRESSOR) 25 mg tablet TAKE 1/2 (ONE-HALF) OF A TABLET BY MOUTH TWICE DAILY Disp: Rfl: 3 KLOR-CON M10 10 mEq tablet Take 10 mEq by mouth once daily. Disp: Rfl: 3 Insulin Hume, Disposable, (BD ULTRA-FINE BENNY PEN NEEDLES) 32 gauge x /32 ndle Use once daily with Lantus as directed Disp: 100 Each Rfl: 3 Blood-Glucose Meter (FREESTYLE LITE METER) monitoring kit 1 Each as directed. Disp: 1 Each Rfl: 0 Lancets lancets Use as instructed Disp: 50 Each Rfl: 0 gemfibrozil (LOPID) 600 mg tablet Take 1 tablet by mouth twice daily. Disp: 180 tablet Rfl: 3 furosemide (LASIX) 40 mg tablet Take 1 tablet by mouth once daily. Disp: 90 tablet Rfl: 3 clopidogrel (PLAVIX) 75 mg tablet Take 1 tablet by mouth once daily. Disp: 90 tablet Rfl: 3 potassium chloride (KLOR-CON 10) 10 mEq tablet Take 1 tablet by mouth once daily. Disp: 90 tablet Rfl: 3 VIT C/VIT E/LUTEIN/MIN/OMEGA-3 (OCUVITE ORAL) Take by mouth. Disp: Rfl: COMPOUNDED PRESCRIPTION Nature[facility] Kidney Bladder Disp: Rfl: COMPOUNDED PRESCRIPTION [facility] Garlic Parsley Disp: Rfl: triamcinolone acetonide (KENALOG) 0.1 % cream Apply 1 application to affected area twice daily as needed (rash). Apply sparingly to area for rash/itching. Disp: 60 g Rfl: 3 CHOLECALCIFEROL, VITAMIN D3, (VITAMIN D3 ORAL) Take 600 mg by mouth once daily. Disp: Rfl: coenzyme Q10 (COQ-10) 100 mg cap Take 1 capsule by mouth. Disp: Rfl: 0 ONE DAILY MULTI-VITAMIN ORAL TAB Take one(1) tablet daily. Disp: Rfl: 0 CALTRATE-600 PLUS VITAMIN D3 600 MG-200 UNIT ORAL TAB TAKE TWO TABLETS DAILY. Disp: Rfl: 0 No current facility-administered medications for this visit. SOCIAL HISTORY: Patient is . He quit smoking over 30 years ago ands reports his alcohol use as very rarely. PHYSICAL EXAMINATION: Blood pressure 135/65, pulse 62, height 172.7 cm (5' 8), weight 78 kg (172 lb). General Appearance: Well appearing, alert, in no acute distress, well-hydrated, well nourished. Skin: Skin color, texture, turgor normal, no suspicious rashes or lesions. Head: Normocephalic, no masses, lesions or abnormalities. Eyes: Anicteric sclera. Neck: Supple, no adenopathy; thyroid symmetric, normal size. Lungs: Lungs clear to auscultation. No wheezing, rhonchi, rales. Heart: RRR without murmur. Abdomen: Abdomen soft, non-tender. Bowel sounds normal. No masses, organomegaly. Extremities: No deformities, edema. Peripheral Pulses: Normal. Impression: iron deficiency anemia Plan: Willing to go to [facility] for small bowel capsule. He is aware that there is usually an initial visit before testing. There is the possibility of need to repeat EGD and/or colon before proceeding with study. I have personally interviewed and examined this patient. I have reviewed the information that the MA entered for this encounter. I spent 20 minutes in the visit, with greater than 50% of the total [id number] time of the visit in counseling and coordination of care. Julissa Mittal RN CHIEF TELEPHONE OPERATOR.JAIRON Mittal RN CHIEF TELEPHONE OPERATOR.JAIRON 05/08/2018 3:50 PM Signed Small bowel capsule endoscopy through [address] Referring Provider: JULISSA MITTAL (UROLOGIC SURGEON) [[id number]] Allergies As of Date: 05/08/2018 Noted Allergy Reaction CRESTOR (ROSUVASTATIN CALCIUM) 04/24/2013 14 - Other: See Comments Comments: Muscle pain GLUCOSAMINE 06/27/2017 16 - Unknown Comments: Nerve pain MOTRIN (IBUPROFEN) 01/19/2006 2 - Rash PRAVASTATIN 02/19/2013 14 - Other: See Comments Comments: muscle aches [id number] REDUCTASE INHIBIT*10/09/2014 14 - Other: See Comments Comments: myalgia Date Reviewed: 05/08/2018 Reviewed by: Carrol Elliott Ma - Fully Assessed Reason for Visit: Recheck [92] Primary Visit Diagnosis:Other iron deficiency anemia [D50.8] Order(s):CAPSULE ENDOSCOPY SMALL BOWEL [62123KLR] Order #: [id number] FUTURE CONSULT TO GASTROENTEROLOGY [9010] Order #: [id number]: 1 Prescriptions as of 05/08/2018 Sig: HYDROCORTISONE 2.5 % TOPICAL * Apply 1 application to affect* PREDNISONE 10 MG TABLET Take 1 tablet by mouth once d* BLOOD SUGAR DIAGNOSTIC STRIPS Test blood sugar(s) 1 times d* DILTIAZEM SR 120 MG 24 HR CAP Take 1 capsule by mouth once * LOSARTAN 25 MG TABLET Take 1 tablet by mouth once d* ISOSORBIDE MONONITRATE ER 30 * Take 1 tablet by mouth once d* INSULIN GLARGINE (U-100) 100 * Inject 10 Units subcutaneousl* FERROUS SULFATE 325 MG (65 MG* Take 325 mg by mouth twice da* CETIRIZINE 10 MG CHEWABLE TAB* Take 10 mg by mouth once marvin* COMPOUNDED PRESCRIPTION kyloic Cholesterol 104 CHOLECALCIFEROL (VITAMIN D3) * Take 5,000 Units by mouth twi* AMLODIPINE 5 MG TABLET Take 1 tablet by mouth once d* RANITIDINE 150 MG TABLET Take 1 tablet by mouth daily * EZETIMIBE 10 MG TABLET Take 1 tablet by mouth once d* BENZONATATE 100 MG CAPSULE Take 1 capsule by mouth three* BLOOD SUGAR DIAGNOSTIC STRIPS Use once daily to test blood * TRUE METRIX GLUCOSE METER 1 Each as directed. METOPROLOL TARTRATE 25 MG TAB* TAKE 1/2 (ONE-HALF) OF A TABL* KLOR-CON M10 MEQ TABLET,EXTEN* Take 10 mEq by mouth once felice* PEN NEEDLE, DIABETIC 32 GAUGE* Use once daily with Lantus as* BLOOD-GLUCOSE METER KIT 1 Each as directed. LANCETS Use as instructed GEMFIBROZIL 600 MG TABLET Take 1 tablet by mouth twice * FUROSEMIDE 40 MG TABLET Take 1 tablet by mouth once d* CLOPIDOGREL 75 MG TABLET Take 1 tablet by mouth once d* POTASSIUM CHLORIDE ER 10 MEQ * Take 1 tablet by mouth once d* OCUVITE ORAL Take by mouth. COMPOUNDED PRESCRIPTION Nature[facility] way Kidney Bladder COMPOUNDED PRESCRIPTION [facility] Garlic Parsley TRIAMCINOLONE ACETONIDE 0.1 %* Apply 1 application to affect* VITAMIN D3 ORAL Take 600 mg by mouth once felice* COENZYME Q10 100 MG CAPSULE Take 1 capsule by mouth. ONE DAILY MULTI-VITAMIN TABLET Take one(1) tablet daily. CALTRATE-600 PLUS VITAMIN D3 * TAKE TWO TABLETS DAILY. Problem List As Of Date 05/08/2018 Noted Resolved GENERAL OSTEOARTHROSIS [M15.9] DIAPHRAGMATIC HERNIA [K44.9] ASCVD [I25.10] More... 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] INVALID FOR* L-S Radiculopathy [M54.17] INVALID FOR* Thoracic or Lumbosacral Neuritis or Radiculitis*INVALID FOR* Glucose intolerance (pre-diabetes) [R73.03] INVALID FOR*07/04/2014 CAD (coronary artery disease) [I25.10] INVALID FOR* Gout [M10.9] INVALID FOR* AAA (abdominal aortic aneurysm) [I71.4] INVALID FOR* Diabetes mellitus type 2, uncontrolled, without*INVALID FOR* Stented coronary artery [Z95.5] INVALID FOR* Fatigue [R53.83] INVALID FOR* Absolute anemia [D64.9] INVALID FOR* CKD (chronic kidney disease) stage 3, GFR 30-59*INVALID FOR* Diarrhea [R19.7] INVALID FOR* CKD (chronic kidney disease) stage 4, GFR 15-29*INVALID FOR* Coronary artery 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 rich plaqu*INVALID FOR* Low blood potassium [E87.6] INVALID FOR* Uncontrolled type 2 diabetes mellitus without c*INVALID FOR* Controlled type 2 diabetes mellitus without com*INVALID FOR* Hypoalbuminemia [E88.09] INVALID FOR* Generalized abdominal pain [R10.84] INVALID FOR* Blood in stool [K92.1] INVALID FOR* 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 [facility] Encounter Status:Closed by JULISSA MITTAL CNP on 05/09/18 CARDIOLOGY VISIT Observed: 05/08/2018 Status: F Source: [place] REPORT 2:18 PM [facility] REPOSITORY [facility] [address] [place] [address] OFFICE VISIT Date of Service: 05/08/18 MR#: [id number] Acct: [id number] Name: ABRAHAM GAGE Rep #: [id number] : 1940 Provider: Rich Sanchez MD Age/Sex: 77/M Location: [facility] Status: Signed HPI HPI Chief Complaint: Routine f/u Details: This is 77-year-old male who presents for cardiovascular outpatient follow-up. He has history of coronary artery disease status post bypass surgery with a CASTILLO to LAD and previous stents. His history of hypertension, hyperlipidemia, AAA, and end-stage renal disease. In November 2016 he presented to [facility] with STEMI. He underwent PCI to his proximal and distal RCA. He required temporary pacing due to complete heart block. Heart cath from November 2016 showed double vessel coronary disease of the LAD and distal RCA, acute IN due to occlusion of RCA with successful drug-eluting stent to proximal and distal RCA, right heart pressures normal, and large infrarenal sacular AAA with no thrombus. Patient had a stress echocardiogram on March 23, 2017. During the stress test his ECG revealed ST depression. Repeat catheterization demonstrated possible significant left circumflex stenosis and he underwent drug-eluting stent to the left circumflex on 03/30/17. Since that time the patient has felt much better,but still complains of fatigue, dyspnea on exertion, and is unable to participate in cardiac rehab. He is a [id number] smoking history who quit in 1986. Echocardiogram from November 2016 showed estimated ejection fraction of 45-50%, akinetic infero-basel basal segment, mildly hypokinetic mid inferior segment mild global hypokinesis of left ventricle, trivial mitral valve insufficiency, mild tricuspid valve insufficiency, and RVSP of 29 mmHg. Patient denies any exertional anginal symptoms, and previously underwent an EGD which showed some mild irritation and was placed on Pepcid therapy as well as iron replacement. Despite this, the patient complains of dyspnea on exertion, and appears pale today. He had labs drawn this morning with results pending. In addition he is seeing Dr. uQinteros for his anemia and chronic renal insufficiency. His anemia may be associated with poor erythropoietin production as well. No plans for hemodialysis at this time. He denies any anginal symptoms, however his main complaint is dyspnea on exertion and shortness of breath. He had a repeat modified Scooby treadmill echocardiogram on 11/08/17 which was negative for inducible ischemia. He denies any chest pain. He has been taking his blood pressures at home which have been appropriately controlled. In addition he underwent an upper and lower GI evaluation which did not appreciably show any reasons for his anemia. He is awaiting a gastric camera pill. In addition he has discontinued his gemfibrozil, and is currently on Zetia 10 mg p.o. nightly. His repeat lipid profile as of 01/23/18 show an LDL of 89 and HDL of 40. He continues to exercise by working, does not formally exercise. In our office today his blood pressure 120/60, pulse is 64 and regular. Lipids as of 12/21/16 showing LDL 103, and an HDL of 31. Repeat lipid profile 06/27/17 shows an LDL 145 and an HDL of 50. Repeat lipids as of 01/23/18 show an LDL of 89 and HDL of 40 Intake Vital Signs05/08/18 Height 5 ft 8 in 05/08/18 Weight: 174 lb 05/08/18 Body Mass Index (BMI) 26.4 05/08/18 Blood Pressure 120/60 Intake Visit Reasons: 6 M Lead Technologist In Cytogenetics Required: No Accompanied by: Is patient in pain?: No Allergies atorvastatin [From Lipitor] Allergy (Verified 05/08/18 11:01) Unknown glucosamine Allergy (Verified 05/08/18 11:01) Unknown ARTHRITIS MEDICATION Allergy (Uncoded 10/18/17 09:54) Rash Medications Calcium Carbonate [Calcium] 1 tab PO DAILY 03/29/17 [History Confirmed 05/08/18] Cholecalciferol (Vitamin D3) [D3-2000] 1 cap PO DAILY 03/29/17 [History Confirmed 05/08/18] Diltiazem HCl [Cardizem Cd] 120 mg PO DAILY 03/29/17 [History Confirmed 05/08/18] Isosorbide Mononitrate [Isosorbide Mononitrate ER] 30 mg PO DAILY 03/29/17 [History Confirmed 05/08/18] ezetimibe 10 mg tablet 10 mg PO QDAY #30 tab 10/18/17 [Rx Confirmed 05/08/18] prednisone 10 mg tablet 40 mg PO QDAY PRN tab 10/18/17 [History Confirmed 05/08/18] ferrous sulfate 324 mg (65 mg iron) tablet,delayed release 324 mg PO BID tab 11/10/17 [History Confirmed 05/08/18] clopidogrel 75 mg tablet 75 mg PO DAILY #90 tab 11/11/17 [Rx Confirmed 05/08/18] losartan 25 mg tablet 25 mg PO DAILY #30 tab 11/11/17 [Rx Confirmed 05/08/18] potassium chloride ER 10 mEq tablet,extended release(part/cryst) 10 meq PO DAILY #90 tab 11/15/17 [Rx Confirmed 05/08/18] cetirizine 10 mg tablet 5 mg PO DAILY 05/08/18 [History Confirmed 05/08/18] coenzyme Q10 100 mg capsule 100 mg PO DAILY 05/08/18 [History Confirmed 05/08/18] furosemide 40 mg tablet 40 mg PO .COMPLEX tab 05/08/18 [History] insulin glargine (U- 100) 100 unit/mL subcutaneous solution 10 unit SC QHS ml 05/08/18 [History Confirmed 05/08/18] metoprolol tartrate 25 mg tablet 25 mg PO .COMPLEX 05/08/18 [History Confirmed 05/08/18] ranitidine 150 mg capsule 150 mg PO QHS 05/08/18 [History Confirmed 05/08/18] [facility] Medical History GI bleed due to NSAIDs (Chronic) Abdominal aortic aneurysm without rupture (Chronic) Ischemic cardiomyopathy (Chronic) Atherosclerosis of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[place] heart without angina pectoris (Chronic) Complete heart block (Chronic) ST elevation IN (STEMI) (Chronic) Chronic kidney disease, stage 3 (Chronic) Hyperlipidemia (Chronic) Hypertension (Chronic) Carotid artery stenosis (Chronic) PVD (peripheral vascular disease) (Chronic) Prostate cancer (Chronic) Surgical History History of coronary artery stent placement (Chronic) H/O coronary artery bypass surgery (Chronic 1994) History of prostatectomy (Chronic) History of right-sided carotid endarterectomy (Chronic) Family History Father Arthritis Mother Hypertension Grandmother Diabetes Social History Smoking Status: Former smoker ROS Const Const: Negative for fatigue, weakness, body ache, fever(s), headache(s), chills, frequent falls, night sweats, daytime sleepiness, difficulty sleeping, excessive sweating, weight gain, weight loss, increased appetite, poor appetite, anorexia or other Eyes Eyes: Negative for blind spots, loss of peripheral vision, transient loss of vision, blurry vision, change in vision, double vision, floaters, tunnel vision or other ENT ENT: Negative for headache(s), dizziness, hearing loss, tinnitus, Nosebleed/epistaxis, balance problems, post nasal drip, lip swelling, tongue swelling, bleeding gums, hoarseness, neck pain, dry mouth or other Cardio Chest Pain: No Palpitations: No Edema: None, Left (ankle and foot and lower leg chronically swollen) Muscle aches with walking: None Resp Respiratory: Positive for SOB with activity (states always); negative for SOB at rest, SOB orthopnea\SOB lying down, Cough, Coughing up blood/hemoptysis, chest congestion, pain on inspiration, snoring, stridor, wheezing, crackles, paroxysmal nocturnal dyspnea or other GI GI: Negative nausea, vomiting, heartburn, constipation, belching, bloating, cramping, vomiting blood/hematemesis, bright, red blood in stools, black,tarry stools, loose stools, Difficulty Swallowing or other : Negative for hematuria, frequent nighttime urination/ nocturia, erectile dysfunction or abnormal vaginal bleeding Musc Musc: Negative for balance problems, muscle aches/ myalgia, muscle weakness or joint pain Skin Skin: Negative redness, non-healing lesions, rash, unusual bruising, skin ulcer, wounds, jaundice or other Neuro Neuro: Negative for weakness, headache(s), frequent falls, blurry vision, double vision, dizziness, lightheadedness, near syncope, syncope, orthostatic symptoms, confusion, memory loss, restless legs, vertigo, seizures, lack of coordination or other Saad Hematologic/Lymphatic: Negative for easy bleeding, easy bruising, enlarged lymph nodes or other Endo Endo: Negative for fatigue, excessive sweating, cold intolerance, heat intolerance, flushing, increased thirst/drinking, increased hunger, hair loss, hair growth or other Psych Psych: Negative for anxiety, depression, thoughts of harming anyone, thoughts of harming yourself, visual hallucinations, panic attacks or audible hallucinations Allergy Allergy/Immunology: Negative for lip swelling, Negative for tongue swelling, Negative for rash, Negative for throat swelling, Negative for hives Cardiology Exam Const Appearance: cooperative, healthy appearing and no acute distress Nutritional Appearance: well nourished Orientation: alert, oriented x3 and oriented to person Head Head: normal to inspection, atraumatic and normocephalic Nose: external nose normal Face and Sinus: face symmetric Mouth: oral mucosae normal Eyes General: appearance normal, both eyes and all related structures Eyelids: eyelids normal Conjunctivae: conjunctivae normal Pupils: PERRL and normal by confrontation EOM: EOM intact bilaterally Neck Neck: normal visual inspection and full ROM Carotids: normal carotid upstroke Chest Chest inspection: normal inspection of the chest Auscultation: Bilateral: Clear to Auscultation Cardio Palpation: normal PMI Rate: regular rate Rhythm: regular rhythm Heart sounds: S1 normal and S2 normal GI GI: normal to inspection, no hepatosplenomegaly and bowel sounds present Neuro General: alert, oriented x3, awake, CN's II-XI intact bilaterally and moves all extremities Skin Skin: no rashes or lesions noted Extremities Pulses: Normal: Right Femoral Pulse, Left Femoral Pulse, Right Dorsalis Pedis Pulse, Left Dorsalis Pedis Pulse, Right Posterior Tibial Pulse, Left Posterior Tibial Pulse, Right Radial Pulse, Left Radial Pulse Lower Extremity Edema: None: Bilateral Psych Psychological: normal affect Assessment AND Plan 1. Atherosclerosis of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[place] heart without angina pectoris I25.10 PCI-DAVID-Mid LCX 2.25 x 23 mm Xience 2004; PCI-DAVID-RCA 3.50 x 16 mm Synergy 12/20/16; ZVS-CKE-Dldn LCX 2.0 x 20 mm Promus Synergy 03/30/2017 CABG x 1 CASTILLO-LAD 1994 Plan 1. Coronary artery disease: No exertional anginal symptoms at this time. No indication for any additional testing. I believe his dyspnea on exertion may be a result of his long-standing smoking in the past. He has never had pulmonary function test, and we will proceed with those. In the meantime he will continue his Plavix, baby aspirin, diltiazem, Lasix and losartan as well as his metoprolol. In addition he will undergo a AAA ultrasound evaluation for tracking his AAA. 2. Hyperlipidemia E78.5 Plan 2. Hyperlipidemia: I am very pleased the patient is able to tolerate ezetimibe. He discontinued his gemfibrozil and we will remove that from our medicine list. His LDL is quite good on ezetimibe alone. Continue present management. 3. Return office in 6-month This note was generated using a voice recognition system and there may be incorrect words, spelling or punctuation that were not noted when reviewing the office note prior to saving. Plan Detail Other Orders Orders: Other Medications Discontinued: Follow Up +6M (Daniel) Coding Level of Care Code Off vis,est,level 3 Diagnoses Atherosclerosis of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[place] heart without angina pectoris I25.10 Hyperlipidemia E78.5 Coding Level of Care Code Off vis,est,level 3 Diagnoses Atherosclerosis of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[place] heart without angina pectoris I25.10 Hyperlipidemia E78.5 05/08/18 1418 <Electronically signed by Rich Sanchez MD> Date Rich Sanchez MD Cosigner Signature: Date (if applicable) CC: Samson Bowens DO PROGRESS Observed: 05/01/2018 Status: COMPLETED Source: [place] 12:09 PM [facility] REPOSITORY O ID: [id number] Author: Samson Ragsdale Service: (none) Author Type: Physician Type: Progress Notes Filed: 05/01/2018 2:10 PM Note Text: Patient presents with: Follow Up: 3 months Imm/Inj: Flu Vaccine HPI: Abraham Gage is a 77 year old male who presents to the office today for review of health conditions. Concerns today: CKD, stage 3-4, was seeing Dr. Quinteros Chucking Lathe Operator, no new medication changes. No edema ? Glucose (mg/dL) Date Value 01/23/2018 87 Potassium (mmol/L) Date Value 01/23/2018 4.0 Sodium (mmol/L) Date Value 01/23/2018 140 Chloride (mmol/L) Date Value 01/23/2018 98 CO2 (mmol/L) Date Value 01/23/2018 28 Creatinine (mg/dL) Date Value 01/23/2018 1.89 BUN (mg/dL) Date Value 01/23/2018 33 Anion Gap (mmol/L) Date Value 01/23/2018 14 Calcium (mg/dL) Date Value 01/23/2018 9.5 Protein, Total (g/dL) Date Value 01/23/2018 6.1 Albumin (g/dL) Date Value 01/23/2018 3.8 Bilirubin, Total (mg/dL) Date Value 01/23/2018 0.3 Alkaline Phosphatase (U/L) Date Value 01/23/2018 81 AST (U/L) Date Value 01/23/2018 17 ALT (U/L) Date Value 01/23/2018 14 ? Glucose (mg/dL) Date Value 04/18/2018 87 Potassium (mmol/L) Date Value 04/18/2018 4.1 Sodium (mmol/L) Date Value 04/18/2018 140 Chloride (mmol/L) Date Value 04/18/2018 99 CO2 (mmol/L) Date Value 04/18/2018 24 Creatinine (mg/dL) Date Value 04/18/2018 2.08 BUN (mg/dL) Date Value 04/18/2018 36 Anion Gap (mmol/L) Date Value 04/18/2018 17 Calcium (mg/dL) Date Value 04/18/2018 9.7 Protein, Total (g/dL) Date Value 04/18/2018 7.8 04/18/2018 7.1 Albumin (g/dL) Date Value 04/18/2018 4.4 Bilirubin, Total (mg/dL) Date Value 04/18/2018 0.2 Alkaline Phosphatase (U/L) Date Value 04/18/2018 94 AST (U/L) Date Value 04/18/2018 19 ALT (U/L) Date Value 04/18/2018 8 Hemoglobin (g/dL) Date Value 04/18/2018 12.0 Hematocrit (%) Date Value 04/18/2018 42.2 WBC (k/uL) Date Value 04/18/2018 11.39 ? 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 Was taking ferrous sulfate 325 mg twice a day but didn't tolerate due to constipation and abdominal pain, now taking Slo Fe twice a day with meals. Unable to eat much red meats due to gout. Had colonoscopy and EGD per Dr. Triana which overall were negative- mild gastritis and distal esophagitis only. Hasn't had a capsule endocopy ? Edema, taking Lasix 40 mg a day, edema worse at end of night, did increase his dose to twice a day ? Left ankle lump/mass, improved with higher dose of Lasix intermittently ? Hx of prostate CA, very fearful of reoccurrence with bone mets, PSA diagnostic is normal Mr. Gage has past history of diabetes. Since our last visit he denies excessive thirst or increased frequency of urination, chest pain or dyspnea , numbness, tingling or pain in extremities, new or unusual visual symptoms and low sugar/hypoglycemic reactions. Follows a diabetic diet most of the time. He is compliant with medication(s) and is tolerating med(s) without any side effects. He reports checking his glucose on a once a day schedule with sugars in the fasting 100-120 range. Patient's last HgA1C was Hemoglobin A1C (%) Date Value 04/18/2018 5.9 01/23/2018 5.8 ) Last Ophthalmology exam was within the past 12 months Mr. Gage reports history of hyperlipidemia. Current therapy includes atorvastatin (Lipitor) 20 mg. Denies side effects of muscle weakness or achiness. His most recent lipid panels are reviewed. Cholesterol, Total (mg/dL) Date Value 01/23/2018 148 HDL Cholesterol (mg/dL) Date Value 01/23/2018 40 LDL Cholesterol (mg/dL) Date Value 01/23/2018 89 Triglyceride (mg/dL) Date Value 01/23/2018 97 Mr. Gage indicates a history of hypertension and states that he is feeling well and denies any symptoms referable to elevated blood pressure. Specifically denies headache, chest pain, palpitations, dyspnea and peripheral edema. Patient denies any side effects of his medication(s) and is compliant with their regimen. Last 3 Encounter BP Readings: Date: BP: 04/18/2018 113/59 01/30/2018 116/60 10/31/2017 150/60 He watches his diet for sodium, low fat and low cholesterol some of the time. He does not check BP's generally. Abraham gets minimal exercise. PAST MEDICAL HISTORY Diagnosis Date - Abdominal aneurysm without mention of rupture 09/2015 4.15 cm - Acute gastritis without mention of hemorrhage 04/26/2017 EGD by [facility] - AMI (acute myocardial infarction) (HCC) 07/03/2013 - Carotid atherosclerosis 05/2014 - CKD stage G3b/A2, GFR 30-44 and albumin creatinine ratio 30-299 mg/g (HCC) AVOID NEPHROTOXIC MEDICATIONS - Diabetes mellitus type 2, uncontrolled, without complications (HCC) - Diaphragmatic hernia without mention of obstruction or gangrene - Diverticulosis of colon (without mention of hemorrhage) 04/26/2017 colonoscopy by [facility] - Generalized osteoarthrosis, unspecified site - Internal hemorrhoid 04/26/2017 colonoscopy by [facility] - Malignant neoplasm of prostate (HCC) - Other and unspecified hyperlipidemia - Unspecified cardiovascular disease 1994 CABG - Unspecified constipation - 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 Ojeda - REPAIR ING HERNIA,5+Y/O,REDUCIBL left Hernia repair, inguinal - SCREENING COLONSCOPY NOT HIGH RISK 04/26/2017 Dr. Yousif Triana; next screening colonoscopy in 10yrs Social History Marital status: Spouse name: Colin Years of education: Number of children: 2 Occupational History Occupation Employer Comment [employer] Social History Main Topics Smoking status: Former Smoker Packs/day: 2.00 Years: 20.00 Types: Cigarettes, Pipe, Cigars Smokeless tobacco: Never Used Comment: quit in 1987 Alcohol use: Yes Comment: rarely Drug use: No FAMILY HISTORY Problem Relation Age of Onset - Hypertension Father - COPD Father - Heart Mother Allergies: ALLERGIES Allergen Reactions - Crestor [Rosuvastat* Other: See Comments Muscle pain - Glucosamine Unknown Nerve pain - Motrin [Ibuprofen] Rash - Pravastatin Other: See Comments muscle aches - Dsyhxkl-Qkj-Ayn Red* Other: See Comments myalgia Current Meds: blood sugar diagnostic (BLOOD GLUCOSE TEST) test strip Test blood sugar(s) 1 times daily. Dx: Type 2 DM - Uncontrolled E11.65 Insulin: Yes diltiazem CD (CARDIZEM CD, CARTIA XT) 120 mg 24 hr capsule Take 1 capsule by mouth once daily. losartan (COZAAR) 25 mg tablet Take 1 tablet by mouth once daily. isosorbide mononitrate ER (IMDUR) 30 mg 24 hr tablet Take 1 tablet by mouth once daily. insulin glargine (BASAGLAR KWIKPEN U-100 INSULIN) 100 unit/mL (3 mL) inpn Inject 10 Units subcutaneously daily at bedtime. ferrous sulfate (IRON) 325 mg (65 mg iron) tablet Take 325 mg by mouth twice daily. cetirizine HCl (ZYRTEC) 10 mg chewable tablet Take 10 mg by mouth once daily. COMPOUNDED PRESCRIPTION kyloic Cholesterol 104 cholecalciferol (VITAMIN D-3) 5,000 unit tab Take 5,000 Units by mouth twice daily. amLODIPine (NORVASC) 5 mg tablet Take 1 tablet by mouth once daily. ranitidine (ZANTAC) 150 mg tablet Take 1 tablet by mouth daily at bedtime. ezetimibe (ZETIA) 10 mg tablet Take 1 tablet by mouth once daily. blood sugar diagnostic (BLOOD GLUCOSE TEST) test strip Use once daily to test blood sugar in the morning Insulin Hume, Disposable, (BD ULTRA-FINE BENNY PEN NEEDLES) 32 gauge x ndle Use once daily with Lantus as directed Blood-Glucose Meter (FREESTYLE LITE METER) monitoring kit 1 Each as directed. Lancets lancets Use as instructed furosemide (LASIX) 40 mg tablet Take 1 tablet by mouth once daily. clopidogrel (PLAVIX) 75 mg tablet Take 1 tablet by mouth once daily. potassium chloride (KLOR-CON 10) 10 mEq tablet Take 1 tablet by mouth once daily. VIT C/VIT E/LUTEIN/MIN/OMEGA-3 (OCUVITE ORAL) Take by mouth. triamcinolone acetonide (KENALOG) 0.1 % cream Apply 1 application to affected area twice daily as needed (rash). Apply sparingly to area for rash/itching. hydrocortisone 2.5 % cream Apply 1 application to affected area twice daily. Location: face CHOLECALCIFEROL, VITAMIN D3, (VITAMIN D3 ORAL) Take 600 mg by mouth once daily. coenzyme Q10 (COQ-10) 100 mg cap Take 1 capsule by mouth. ONE DAILY MULTI-VITAMIN ORAL TAB Take one(1) tablet daily. CALTRATE-600 PLUS VITAMIN D3 600 MG-200 UNIT ORAL TAB TAKE TWO TABLETS DAILY. benzonatate (TESSALON PERLES) 100 mg capsule Take 1 capsule by mouth three times daily as needed for Cough. TRUE METRIX GLUCOSE METER misc 1 Each as directed. metoprolol tartrate, short acting, (LOPRESSOR) 25 mg tablet TAKE 1/2 (ONE-HALF) OF A TABLET BY MOUTH TWICE DAILY KLOR-CON M10 10 mEq tablet Take 10 mEq by mouth once daily. gemfibrozil (LOPID) 600 mg tablet Take 1 tablet by mouth twice daily. COMPOUNDED PRESCRIPTION Nature's way Kidney Bladder COMPOUNDED PRESCRIPTION Nature's Way Garlic Laila Review of Systems: The remainder of the review of systems is negative. PE: 05/01/18 1205 BP: 124/60 Pulse: 64 Resp: 20 Temp: (!) 35.9 ?C (96.7 ?F) TempSrc: Left Tympanic Weight: 78 kg (172 lb) Gen: AANDO, NAD, non-toxic appearing, cooperative HEENT: NT/AC, PERRLA, EOMs intact b/l, nares clear and patent b/l, pharynx without erythema, exudate or lesions. Uvula midline. MMM Neck: supple, No cervical LAD, no thyromegaly, no carotid bruits CV: RRR, normal S1S2, 2/6 HSM RUSB murmurs, no gallops, no rubs, Pulses 2+ and symmetric in UE and LE b/l Lungs: normal respiratory effort, CTA b/l, no wheezing or rhonchi or rales Abd: soft, NT, ND, +BS, no hepatosplenomegaly MS: see below Neuro: CN II-XII intact b/l, strength 5/5 b/l UE and LE, DTRs 2/4 UE and LE, sensation intact. Skin: warm, dry, intact, No rashes or lesions on exposed skin. Left ankle anterior localized non tender fluctuant mass without erythema approximately 2 cm in size without drainage or warmth Foot exam: Monofilament normal on right and left feet. ASSESSMENT/PLAN: 1. Controlled type 2 diabetes mellitus without complication, with long-term current use of insulin (HCC) - ICD9: 250.00, V58.67, ICD10: E11.9, Z79.4 (primary diagnosis) Controlled. - Continue current medications - Blood glucose monitoring on a three times a day schedule - Encouraged regular aerobic exercise and weight loss - Follow up in 3 months, sooner should any other issues arise. - Discussed diabetic education issues of exterminator diabetic complications, diet and medications- side effects and need for compliance with patient. - BP goal of <130/80 - LDL goal of <100 2. Need for vaccination - ICD9: V05.9, ICD10: Z23 - INFLUENZA SEASONAL HIGH DOSE AGE 65+ 3. 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 Iron deficiency anemia due to chronic blood loss - ICD9: 280.0, ICD10: D50.0 - EGD and c scope without cause of anemia, need for capsule endoscopy at this time - CAPSULE ENDOSCOPY SMALL BOWEL 6. Blood in stool - ICD9: 578.1, ICD10: K92.1 - see above - CAPSULE ENDOSCOPY SMALL BOWEL 7. Generalized abdominal pain - ICD9: 789.07, ICD10: R10.84 - see above - CAPSULE ENDOSCOPY SMALL BOWEL 8. CKD (chronic kidney disease) stage 3, GFR 30-59 ml/min (HCC) - ICD9: 585.3, ICD10: N18.3 - stable to slightly worse, decrease dose again of Lasix to once a day dosing 9. Essential hypertension, benign - ICD9: 401.1, ICD10: I10 - good control - Continue current medication(s) - Recommended regular aerobic exercise. - Recommend home blood pressure monitoring, to bring results in on next visit - Goal of BP <130/80 10. Pure hypercholesterolemia - ICD9: 272.0, ICD10: E78.00 - good control - Continue current medication. 11. Hypoalbuminemia - ICD9: 273.8, ICD10: E88.09 - improving Samson Ragsdale DO To ER if develops chest pain, shortness of breath, or severe worsening of symptoms. Discussed risks, benefits, alternatives, and potential side effects of medications. Patient expressed understanding and agreed with the plan. Samson Ragsdale DO [address] [place] [address] PROGRESS Observed: 05/01/2018 Status: COMPLETED Source: [place] 12:09 PM [facility] REPOSITORY HNO ID: [id number] Author: Shila Hernández LPN Service: (none) Author Type: (none) Type: Progress Notes Filed: 05/01/2018 2:10 PM Note Text: 77 year old male here for INACTIVATED INFLUENZA VACCINE. 0816-0370 Season Patient is identified by name and date of : Yes [] CONTRAINDICATIONS color enhanced section Age less than 6 months? No Allergy to eggs, chicken, chicken feathers, or chicken dander? No Allergy to thimerosal (a preservative) or formaldehyde, gelatin? No History of severe reaction to any vaccine component or a previous dose of influenza vaccination? No History of Guillain-Justice Syndrome within 6 weeks after a previous influenza vaccine? No Patient is not moderately or severely ill? No Current temperature greater or equal to 100.4F? No History of Bone Marrow Transplant prior 6 months or solid organ transplant in the past 3 months ? No History of fainting after a prior injection or medical procedure? No- ? If patient has fainted in the past, the CDC recommends sitting or lying down for 15 minutes after the vaccination. [] VERIFICATION color enhanced section Was the answer Yes for any of the above contraindications? No contraindications present. Acceptable to proceed with vaccine. Patient/guardian agrees the above answers are true to the best of their knowledge? Yes Flu vaccine information sheet given? Yes See immunization activity in [employer] for details of immunizations adminstered today. Patient age: [age] year old For The 7703-5939 Flu Season 6-35 months old: Fluzone 0.25 ml - IM (Preservative Free) 3 years of age: Fluzone 0.5 ml - IM (Preservative Free) 3 years and older: Fluzone 0.5 ml- IM-(with Preservatives) 65+ years old: 2-49 years old Fluzone High-Dose 0.5 ml - IM (Preservative Free) FLUMIST- intranasal REMEMBER: If patient is less than 9 years of age and this is the first vaccine of Influenza to be received in any flu season, they should receive a second dose in one months time. CNOV Observed: 05/01/2018 Status: COMPLETED Source: [place] 12:00 PM [facility] REPOSITORY Office Visit ([facility]) ABRAHAM GAGE ([id number]) 1940 M Date Time Provider Department 05/01/18 12:00 PM SAMSON RAGSDALE [facility] During your visit today, we recorded the following information about you: Temperature Pulse Respiration Blood pressure 96.7 degrees 64/minute 20/minute 124/60 Weight 78 kg Shila Hernández LPN 05/01/2018 2:10 PM Signed 77 year old male here for INACTIVATED INFLUENZA VACCINE. 1779-1451 Season Patient is identified by name and date of : Yes [] CONTRAINDICATIONS color enhanced section Age less than 6 months? No Allergy to eggs, chicken, chicken feathers, or chicken dander? No Allergy to thimerosal (a preservative) or formaldehyde, gelatin? No History of severe reaction to any vaccine component or a previous dose of influenza vaccination? No History of Guillain-Justice Syndrome within 6 weeks after a previous influenza vaccine? No Patient is not moderately or severely ill? No Current temperature greater or equal to 100.4F? No History of Bone Marrow Transplant prior 6 months or solid organ transplant in the past 3 months ? No History of fainting after a prior injection or medical procedure? No- ? If patient has fainted in the past, the CDC recommends sitting or lying down for 15 minutes after the vaccination. [] VERIFICATION color enhanced section Was the answer Yes for any of the above contraindications? No contraindications present. Acceptable to proceed with vaccine. Patient/guardian agrees the above answers are true to the best of their knowledge? Yes Flu vaccine information sheet given? Yes See immunization activity in [facility] for details of immunizations adminstered today. Patient age: [age] year old For The 0641-7472 Flu Season 6-35 months old: Fluzone 0.25 ml - IM (Preservative Free) 3 years of age: Fluzone 0.5 ml - IM (Preservative Free) 3 years and older: Fluzone 0.5 ml- IM-(with Preservatives) 65+ years old: 2-49 years old Fluzone High-Dose 0.5 ml - IM (Preservative Free) FLUMIST- intranasal REMEMBER: If patient is less than 9 years of age and this is the first vaccine of Influenza to be received in any flu season, they should receive a second dose in one months time. Samson Ragsdale DO 05/01/2018 2:10 PM Signed Patient presents with: Follow Up: 3 months Imm/Inj: Flu Vaccine HPI: Abraham Gage is a 77 year old male who presents to the office today for review of health conditions. Concerns today: CKD, stage 3-4, was seeing Dr. Quinteros Chucking Lathe Operator, no new medication changes. No edema ? Glucose (mg/dL) Date Value 01/23/2018 87 Potassium (mmol/L) Date Value 01/23/2018 4.0 Sodium (mmol/L) Date Value 01/23/2018 140 Chloride (mmol/L) Date Value 01/23/2018 98 CO2 (mmol/L) Date Value 01/23/2018 28 Creatinine (mg/dL) Date Value 01/23/2018 1.89 BUN (mg/dL) Date Value 01/23/2018 33 Anion Gap (mmol/L) Date Value 01/23/2018 14 Calcium (mg/dL) Date Value 01/23/2018 9.5 Protein, Total (g/dL) Date Value 01/23/2018 6.1 Albumin (g/dL) Date Value 01/23/2018 3.8 Bilirubin, Total (mg/dL) Date Value 01/23/2018 0.3 Alkaline Phosphatase (U/L) Date Value 01/23/2018 81 AST (U/L) Date Value 01/23/2018 17 ALT (U/L) Date Value 01/23/2018 14 ? Glucose (mg/dL) Date Value 04/18/2018 87 Potassium (mmol/L) Date Value 04/18/2018 4.1 Sodium (mmol/L) Date Value 04/18/2018 140 Chloride (mmol/L) Date Value 04/18/2018 99 CO2 (mmol/L) Date Value 04/18/2018 24 Creatinine (mg/dL) Date Value 04/18/2018 2.08 BUN (mg/dL) Date Value 04/18/2018 36 Anion Gap (mmol/L) Date Value 04/18/2018 17 Calcium (mg/dL) Date Value 04/18/2018 9.7 Protein, Total (g/dL) Date Value 04/18/2018 7.8 04/18/2018 7.1 Albumin (g/dL) Date Value 04/18/2018 4.4 Bilirubin, Total (mg/dL) Date Value 04/18/2018 0.2 Alkaline Phosphatase (U/L) Date Value 04/18/2018 94 AST (U/L) Date Value 04/18/2018 19 ALT (U/L) Date Value 04/18/2018 8 Hemoglobin (g/dL) Date Value 04/18/2018 12.0 Hematocrit (%) Date Value 04/18/2018 42.2 WBC (k/uL) Date Value 04/18/2018 11.39 ? 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 Was taking ferrous sulfate 325 mg twice a day but didn't tolerate due to constipation and abdominal pain, now taking Slo Fe twice a day with meals. Unable to eat much red meats due to gout. Had colonoscopy and EGD per Dr. Triana which overall were negative- mild gastritis and distal esophagitis only. Hasn't had a capsule endocopy ? Edema, taking Lasix 40 mg a day, edema worse at end of night, did increase his dose to twice a day ? Left ankle lump/mass, improved with higher dose of Lasix intermittently ? Hx of prostate CA, very fearful of reoccurrence with bone mets, PSA diagnostic is normal Mr. Gage has past history of diabetes. Since our last visit he denies excessive thirst or increased frequency of urination, chest pain or dyspnea , numbness, tingling or pain in extremities, new or unusual visual symptoms and low sugar/hypoglycemic reactions. Follows a diabetic diet most of the time. He is compliant with medication(s) and is tolerating med(s) without any side effects. He reports checking his glucose on a once a day schedule with sugars in the fasting 100-120 range. Patient's last HgA1C was Hemoglobin A1C (%) Date Value 04/18/2018 5.9 01/23/2018 5.8 ) Last Ophthalmology exam was within the past 12 months Mr. Gage reports history of hyperlipidemia. Current therapy includes atorvastatin (Lipitor) 20 mg. Denies side effects of muscle weakness or achiness. His most recent lipid panels are reviewed. Cholesterol, Total (mg/dL) Date Value 01/23/2018 148 HDL Cholesterol (mg/dL) Date Value 01/23/2018 40 LDL Cholesterol (mg/dL) Date Value 01/23/2018 89 Triglyceride (mg/dL) Date Value 01/23/2018 97 Mr. Gage indicates a history of hypertension and states that he is feeling well and denies any symptoms referable to elevated blood pressure. Specifically denies headache, chest pain, palpitations, dyspnea and peripheral edema. Patient denies any side effects of his medication(s) and is compliant with their regimen. Last 3 Encounter BP Readings: Date: BP: 04/18/2018 113/59 01/30/2018 116/60 10/31/2017 150/60 He watches his diet for sodium, low fat and low cholesterol some of the time. He does not check BP's generally. Abraham gets minimal exercise. PAST MEDICAL HISTORY Diagnosis Date - Abdominal aneurysm without mention of rupture 09/2015 4.15 cm - Acute gastritis without mention of hemorrhage 04/26/2017 EGD by [facility] - AMI (acute myocardial infarction) ([facility]) 07/03/2013 - Carotid atherosclerosis 05/2014 - CKD stage G3b/A2, GFR 30-44 and albumin creatinine ratio 30-299 mg/g ([facility]) AVOID NEPHROTOXIC MEDICATIONS - Diabetes mellitus type 2, uncontrolled, without complications (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 Ojeda - REPAIR ING HERNIA,5+Y/O,REDUCIBL left Hernia repair, inguinal - SCREENING COLONSCOPY NOT HIGH RISK 04/26/2017 Dr. Yousif Triana; next screening colonoscopy in 10yrs Social History Marital status: Spouse name: Colin Years of education: Number of children: 2 Occupational History Occupation Employer Comment [employer] Social History Main Topics Smoking status: Former Smoker Packs/day: 2.00 Years: 20.00 Types: Cigarettes, Pipe, Cigars Smokeless tobacco: Never Used Comment: quit in 1987 Alcohol use: Yes Comment: rarely Drug use: No FAMILY HISTORY Problem Relation Age of Onset - Hypertension Father - COPD Father - Heart Mother Allergies: ALLERGIES Allergen Reactions - Crestor [Rosuvastat* Other: See Comments Muscle pain - Glucosamine Unknown Nerve pain - Motrin [Ibuprofen] Rash - Pravastatin Other: See Comments muscle aches - Vvxbodg-Grt-Yxc Red* Other: See Comments myalgia Current Meds: blood sugar diagnostic (BLOOD GLUCOSE TEST) test strip Test blood sugar(s) 1 times daily. Dx: Type 2 DM - Uncontrolled E11.65 Insulin: Yes diltiazem CD (CARDIZEM CD, CARTIA XT) 120 mg 24 hr capsule Take 1 capsule by mouth once daily. losartan (COZAAR) 25 mg tablet Take 1 tablet by mouth once daily. isosorbide mononitrate ER (IMDUR) 30 mg 24 hr tablet Take 1 tablet by mouth once daily. insulin glargine (BASAGLAR KWIKPEN U-100 INSULIN) 100 unit/mL (3 mL) inpn Inject 10 Units subcutaneously daily at bedtime. ferrous sulfate (IRON) 325 mg (65 mg iron) tablet Take 325 mg by mouth twice daily. cetirizine HCl (ZYRTEC) 10 mg chewable tablet Take 10 mg by mouth once daily. COMPOUNDED PRESCRIPTION kyloic Cholesterol 104 cholecalciferol (VITAMIN D-3) 5,000 unit tab Take 5,000 Units by mouth twice daily. amLODIPine (NORVASC) 5 mg tablet Take 1 tablet by mouth once daily. ranitidine (ZANTAC) 150 mg tablet Take 1 tablet by mouth daily at bedtime. ezetimibe (ZETIA) 10 mg tablet Take 1 tablet by mouth once daily. blood sugar diagnostic (BLOOD GLUCOSE TEST) test strip Use once daily to test blood sugar in the morning Insulin Hume, Disposable, (BD ULTRA-FINE BENNY PEN NEEDLES) 32 gauge x 5/32 ndle Use once daily with Lantus as directed Blood-Glucose Meter (FREESTYLE LITE METER) monitoring kit 1 Each as directed. Lancets lancets Use as instructed furosemide (LASIX) 40 mg tablet Take 1 tablet by mouth once daily. clopidogrel (PLAVIX) 75 mg tablet Take 1 tablet by mouth once daily. potassium chloride (KLOR-CON 10) 10 mEq tablet Take 1 tablet by mouth once daily. VIT C/VIT E/LUTEIN/MIN/OMEGA-3 (OCUVITE ORAL) Take by mouth. triamcinolone acetonide (KENALOG) 0.1 % cream Apply 1 application to affected area twice daily as needed (rash). Apply sparingly to area for rash/itching. hydrocortisone 2.5 % cream Apply 1 application to affected area twice daily. Location: face CHOLECALCIFEROL, VITAMIN D3, (VITAMIN D3 ORAL) Take 600 mg by mouth once daily. coenzyme Q10 (COQ-10) 100 mg cap Take 1 capsule by mouth. ONE DAILY MULTI-VITAMIN ORAL TAB Take one(1) tablet daily. CALTRATE-600 PLUS VITAMIN D3 600 MG-200 UNIT ORAL TAB TAKE TWO TABLETS DAILY. benzonatate (TESSALON PERLES) 100 mg capsule Take 1 capsule by mouth three times daily as needed for Cough. TRUE METRIX GLUCOSE METER misc 1 Each as directed. metoprolol tartrate, short acting, (LOPRESSOR) 25 mg tablet TAKE 1/2 (ONE-HALF) OF A TABLET BY MOUTH TWICE DAILY KLOR-CON M10 10 mEq tablet Take 10 mEq by mouth once daily. gemfibrozil (LOPID) 600 mg tablet Take 1 tablet by mouth twice daily. COMPOUNDED PRESCRIPTION Nature's way Kidney Bladder COMPOUNDED PRESCRIPTION Nature's Way Garlic Laila Review of Systems: The remainder of the review of systems is negative. PE: 05/01/18 1205 BP: 124/60 Pulse: 64 Resp: 20 Temp: (!) 35.9 ?C (96.7 ?F) TempSrc: Left Tympanic Weight: 78 kg (172 lb) Gen: AANDO, NAD, non-toxic appearing, cooperative HEENT: NT/AC, PERRLA, EOMs intact b/l, nares clear and patent b/l, pharynx without erythema, exudate or lesions. Uvula midline. MMM Neck: supple, No cervical LAD, no thyromegaly, no carotid bruits CV: RRR, normal S1S2, 2/6 HSM RUSB murmurs, no gallops, no rubs, Pulses 2+ and symmetric in UE and LE b/l Lungs: normal respiratory effort, CTA b/l, no wheezing or rhonchi or rales Abd: soft, NT, ND, +BS, no hepatosplenomegaly MS: see below Neuro: CN II-XII intact b/l, strength 5/5 b/l UE and LE, DTRs 2/4 UE and LE, sensation intact. Skin: warm, dry, intact, No rashes or lesions on exposed skin. Left ankle anterior localized non tender fluctuant mass without erythema approximately 2 cm in size without drainage or warmth Foot exam: Monofilament normal on right and left feet. ASSESSMENT/PLAN: 1. Controlled type 2 diabetes mellitus without complication, with long-term current use of insulin (HCC) - ICD9: 250.00, V58.67, ICD10: E11.9, Z79.4 (primary diagnosis) Controlled. - Continue current medications - Blood glucose monitoring on a three times a day schedule - Encouraged regular aerobic exercise and weight loss - Follow up in 3 months, sooner should any other issues arise. - Discussed diabetic education issues of exterminator diabetic complications, diet and medications- side effects and need for compliance with patient. - BP goal of <130/80 - LDL goal of <100 2. Need for vaccination - ICD9: V05.9, ICD10: Z23 - INFLUENZA SEASONAL HIGH DOSE AGE 65+ 3. 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 Iron deficiency anemia due to chronic blood loss - ICD9: 280.0, ICD10: D50.0 - EGD and c scope without cause of anemia, need for capsule endoscopy at this time - CAPSULE ENDOSCOPY SMALL BOWEL 6. Blood in stool - ICD9: 578.1, ICD10: K92.1 - see above - CAPSULE ENDOSCOPY SMALL BOWEL 7. Generalized abdominal pain - ICD9: 789.07, ICD10: R10.84 - see above - CAPSULE ENDOSCOPY SMALL BOWEL 8. CKD (chronic kidney disease) stage 3, GFR 30-59 ml/min (HCC) - ICD9: 585.3, ICD10: N18.3 - stable to slightly worse, decrease dose again of Lasix to once a day dosing 9. Essential hypertension, benign - ICD9: 401.1, ICD10: I10 - good control - Continue current medication(s) - Recommended regular aerobic exercise. - Recommend home blood pressure monitoring, to bring results in on next visit - Goal of BP <130/80 10. Pure hypercholesterolemia - ICD9: 272.0, ICD10: E78.00 - good control - Continue current medication. 11. Hypoalbuminemia - ICD9: 273.8, ICD10: E88.09 - improving Samson Ragsdale DO To ER if develops chest pain, shortness of breath, or severe worsening of symptoms. Discussed risks, benefits, alternatives, and potential side effects of medications. Patient expressed understanding and agreed with the plan. Samson Ragsdale DO [address] [place] [address] Samson Ragsdale DO 05/01/2018 12:38 PM Signed Decrease dose of Lasix to 40 mg a day in the morning. If have a lot of swelling okay to take a 2nd dose or 1/2 tablet that day, not on a routine basis though. Referring Provider: SAMSON RAGSDALE [[id number]] Allergies As of Date: 05/01/2018 Noted Allergy Reaction CRESTOR (ROSUVASTATIN CALCIUM) 04/24/2013 14 - Other: See Comments Comments: Muscle pain GLUCOSAMINE 06/27/2017 16 - Unknown Comments: Nerve pain MOTRIN (IBUPROFEN) 01/19/2006 2 - Rash PRAVASTATIN 02/19/2013 14 - Other: See Comments Comments: muscle aches [id number] REDUCTASE INHIBIT*10/09/2014 14 - Other: See Comments Comments: myalgia Date Reviewed: 05/01/2018 Reviewed by: Shila Hernández LPN - Fully Assessed Reason for Visit: Follow Up [171] Cmt: 3 months Imm/Inj [58] Cmt: Flu Vaccine Reason For Visit History Recorded Primary Visit Diagnosis:Controlled type 2 diabetes mellitus without complication, with long-term current use of insulin (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) [N18.3] Essential hypertension, benign [I10] Pure hypercholesterolemia [E78.00] Hypoalbuminemia [E88.09] Order(s):INFLUENZA SEASONAL HIGH DOSE AGE 65+ [[id number]] Order #: [id number] hydrocortisone 2.5 % creamApply 1 application to affected area twice daily. Location: faceDisp: 30 gRfl: 2 predniSONE (DELTASONE) 10 mg tabletTake 1 tablet by mouth once daily for 20 days.Disp: 20 tabletRfl: 3 Prescriptions as of 05/01/2018 Sig: HYDROCORTISONE 2.5 % TOPICAL * Apply 1 application to affect* BLOOD SUGAR DIAGNOSTIC STRIPS Test blood sugar(s) 1 times d* DILTIAZEM SR 120 MG 24 HR CAP Take 1 capsule by mouth once * LOSARTAN 25 MG TABLET Take 1 tablet by mouth once d* ISOSORBIDE MONONITRATE ER 30 * Take 1 tablet by mouth once d* INSULIN GLARGINE (U-100) 100 * Inject 10 Units subcutaneousl* FERROUS SULFATE 325 MG (65 MG* Take 325 mg by mouth twice da* CETIRIZINE 10 MG CHEWABLE TAB* Take 10 mg by mouth once marvin* COMPOUNDED PRESCRIPTION kyloic Cholesterol 104 CHOLECALCIFEROL (VITAMIN D3) * Take 5,000 Units by mouth twi* AMLODIPINE 5 MG TABLET Take 1 tablet by mouth once d* RANITIDINE 150 MG TABLET Take 1 tablet by mouth daily * EZETIMIBE 10 MG TABLET Take 1 tablet by mouth once d* BLOOD SUGAR DIAGNOSTIC STRIPS Use once daily to test blood * PEN NEEDLE, DIABETIC 32 GAUGE* Use once daily with Lantus as* BLOOD-GLUCOSE METER KIT 1 Each as directed. LANCETS Use as instructed FUROSEMIDE 40 MG TABLET Take 1 tablet by mouth once d* CLOPIDOGREL 75 MG TABLET Take 1 tablet by mouth once d* POTASSIUM CHLORIDE ER 10 MEQ * Take 1 tablet by mouth once d* OCUVITE ORAL Take by mouth. TRIAMCINOLONE ACETONIDE 0.1 %* Apply 1 application to affect* VITAMIN D3 ORAL Take 600 mg by mouth once felice* COENZYME Q10 100 MG CAPSULE Take 1 capsule by mouth. ONE DAILY MULTI-VITAMIN TABLET Take one(1) tablet daily. CALTRATE-600 PLUS VITAMIN D3 * TAKE TWO TABLETS DAILY. PREDNISONE 10 MG TABLET Take 1 tablet by mouth once d* BENZONATATE 100 MG CAPSULE Take 1 capsule by mouth three* TRUE METRIX GLUCOSE METER 1 Each as directed. METOPROLOL TARTRATE 25 MG TAB* TAKE 1/2 (ONE-HALF) OF A TABL* KLOR-CON M10 MEQ TABLET,EXTEN* Take 10 mEq by mouth once felice* GEMFIBROZIL 600 MG TABLET Take 1 tablet by mouth twice * COMPOUNDED PRESCRIPTION Nature's way Kidney Bladder COMPOUNDED PRESCRIPTION Nature's Way Garlic Sellfy Problem List As Of Date 05/01/2018 Noted Resolved GENERAL OSTEOARTHROSIS [M15.9] DIAPHRAGMATIC HERNIA [K44.9] ASCVD [I25.10] More... 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] INVALID FOR* L-S Radiculopathy [M54.17] INVALID FOR* Thoracic or Lumbosacral Neuritis or Radiculitis*INVALID FOR* Glucose intolerance (pre-diabetes) [R73.03] INVALID FOR*07/04/2014 CAD (coronary artery disease) [I25.10] INVALID FOR* Gout [M10.9] INVALID FOR* AAA (abdominal aortic aneurysm) [I71.4] INVALID FOR* Diabetes mellitus type 2, uncontrolled, without*INVALID FOR* Stented coronary artery [Z95.5] INVALID FOR* Fatigue [R53.83] INVALID FOR* Absolute anemia [D64.9] INVALID FOR* CKD (chronic kidney disease) stage 3, GFR 30-59*INVALID FOR* Diarrhea [R19.7] INVALID FOR* CKD (chronic kidney disease) stage 4, GFR 15-29*INVALID FOR* Coronary artery 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 rich plaqu*INVALID FOR* Low blood potassium [E87.6] INVALID FOR* Uncontrolled type 2 diabetes mellitus without c*INVALID FOR* Controlled type 2 diabetes mellitus without com*INVALID FOR* Hypoalbuminemia [E88.09] INVALID FOR* Generalized abdominal pain [R10.84] INVALID FOR* Blood in stool [K92.1] INVALID FOR* 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 If have a lot of swelling okay to take a 2nd dose or 1/2 tablet that day, not on a routine basis though. Prescriptions ordered this encounter Disp Refills Start End HYDROCORTISONE 2.5 % TOPICAL CREAM 30 g 2 05/01/2018 Route: TOPICAL Sig: Apply 1 application to affected area twice daily. Location: face PREDNISONE 10 MG TABLET 20 t* 3 05/01/2018 05/21/2018 Route: ORAL Sig: Take 1 tablet by mouth once daily for 20 days. Medications Discontinued During This Encounter hydrocortisone 2.5 % cream 30 g 2 03/02/2016 05/01/2018 Route: TOPICAL Sig: Apply 1 application to affected area twice daily. Location: face Disc: Reason for discontinue is not on file. predniSONE (DELTASONE) 10 mg tablet 20 t* 3 02/03/2018 05/01/2018 Route: ORAL Sig: Take 1 tablet by mouth once daily for 20 days. Disc: Reason for discontinue is not on file. Encounter Status:Closed by SAMSON RAGSDALE DO on 05/01/18 CBC AND DIFFERENTIAL Collected: 04/18/2018 Status: F Source: [place] 11:15 AM [facility] REPOSITORY TYPE CODE TESTS RESULT OUT OF REFERENCE UNITS RANGE LAB WBC 3.70-11.00 k/uL WBC High 11.39 LAB RBC 4.20-6.00 m/uL RBC 4.76 LAB HGB 13.0-17.0 g/dL Low Hemoglobin 12.0 LAB HCT 39.0-51.0 % Hematocrit 42.2 LAB MCV 80.0-100.0 fL MCV 88.7 LAB MCH 26.0-34.0 pG Low MCH 25.2 LAB MCHC 30.5-36.0 g/dL Low MCHC 28.4 LAB RDWCV 11.5-15.0 % RDW-CV High 17.9 LAB PLTCT 150-400 k/uL Platelet Count 377 LAB MPV 9.0-12.7 fL MPV 9.9 LAB ANEUT % Neut% 69.5 LAB AANEUT 1.45-7.50 k/uL Abs Neut High 7.90 LAB ALYMP % Lymph% 17.6 LAB AALYMP 1.00-4.00 k/uL Abs Lymph 2.01 LAB AMONO % [place]% 8.4 LAB AAMONO <0.87 k/uL Abs [place] High 0.96 LAB AEOS % Eosin% 4.1 LAB AAEOS <0.46 k/uL Abs High Eosin 0.47 LAB ABASO % Baso% 0.4 LAB AABASO <0.11 k/uL Abs Baso 0.05 LAB AUNRBC 0 /100 WBC NRBCs 0.0 LAB ABNRBC <0.01 k/uL Absolute nRBC <0.01 LAB DTYP DTYPE Auto Diff Performed By: #### CBCDIF, CMP, IRON, B12, HBA1C, PSA, SEPG #### [facility] [address] [place], [place] [address] COMP METABOLIC PANEL Collected: 04/18/2018 Status: F Source: [place] 11:15 AM [facility] REPOSITORY TYPE CODE TESTS RESULT OUT OF REFERENCE UNITS RANGE LAB TP 6.3-8.0 g/dL Protein, Total 7.8 LAB ALB 3.9-4.9 g/dL Albumin 4.4 LAB CA 8.5-10.2 mg/dL Calcium, Total 9.7 LAB TBIL 0.2-1.3 mg/dL Bilirubin, Total 0.2 LAB ALKP 36-108 U/L Alkaline Phosphatase 94 LAB AST 14-40 U/L AST 19 LAB GLU 74-99 mg/dL Glucose 87 Result Comment: The [place] Diabetes Association (ADA) provides guidance for cutoff values for fasting glucose and random glucose. The ADA defines fasting as no caloric intake for at least 8 hours. Fas ting plasma glucose results between 100 to 125 mg/dL indicate increased risk for diabetes (prediabetes). Fasting plasma glucose results greater than or equal to 126 mg/dL meet the criteria for diagnosis of diabetes. In the absence of unequivocal hyperglycemia, results should be confirmed by repeat testing. In a patient with classic symptoms of hyperglycemia or hyperglycemic crisis, random plasma glucose results greater than or equal to 200 mg/dL meet the criteria for diagnosis of diabetes. Reference: Standards of Medical Care in Diabetes 2016, [place] Diabetes Association. Diabetes Care. 2016.39(Suppl 1). LAB BUN 9-24 mg/dL BUN High 36 LAB CRET 0.73-1.22 mg/dL Creatinine High 2.08 LAB NA 136-144 mmol/L Sodium 140 LAB K 3.7-5.1 mmol/L Potassium 4.1 LAB CL 97-105 mmol/L Chloride 99 LAB CO2 22-30 mmol/L CO2 24 LAB AGAP 9-18 mmol/L Anion Gap 17 LAB ALT 10-54 U/L Low ALT 8 LAB GFRAA eGFR- Amer. 38 LAB GFRNAA . eGFR-All Other Races 31 Result Comment: eGFR (Estimated GFR) Units of measure: mL/min/1.73 meters squared eGFR is derived from the reexpressed MDRD Study equation using the following parameters: serum creatinine, age, gender and race. The creatinine assay has been calibrated to be traceable to IDMS. An eGFR <60 mL/min/1.73m2 for >3 months is consistent with chronic kidney disease. Refer to KDOQI guidelines for clinical interpretation. In patients with unstable renal function, e.g. those with acute kidney injury, the eGFR may not accurately reflect actual GFR. Performed By: #### CBCDIF, CMP, IRON, B12, HBA1C, PSA, SEPG #### [facility] [address] [place] [address] IRON AND TIBC Collected: 04/18/2018 Status: F Source: [place] 11:15 AM [facility] REPOSITORY TYPE CODE TESTS RESULT OUT OF REFERENCE UNITS RANGE LAB IRN 41-186 ug/dL Low Iron 28 LAB TIBC 232-386 ug/dL TIBC High 434 LAB SAT 15-57 % Low Transferrin Saturatn 6 Performed By: #### CBCDIF, CMP, IRON, B12, HBA1C, PSA, SEPG #### [place] [address] VITAMIN B12 Collected: 04/18/2018 Status: F Source: [place] 11:15 AM [facility] REPOSITORY TYPE CODE TESTS RESULT OUT OF REFERENCE UNITS RANGE LAB B12 232-1245 pg/mL Vitamin B12 751 Performed By: #### CBCDIF, CMP, IRON, B12, HBA1C, PSA, SEPG #### [place] [id number] [place] [address] HEMOGLOBIN A1C Collected: 04/18/2018 Status: F Source: [place] 11:15 AM [facility] REPOSITORY TYPE CODE TESTS RESULT OUT OF REFERENCE UNITS RANGE LAB HGBA1C 4.3-5.6 % High Hemoglobin A1c 5.9 LAB HBA0 mg/dL Est. Average Glucose 123 Result Comment: eAG: (Estimated average glucose) is a calculated value from HgbA1c and is guest relations representative of the average blood glucose level in the last 2-3 month period. Performed By: #### CBCDIF, CMP, IRON, B12, HBA1C, PSA, SEPG #### [facility] [address] [place] [address] PSA, DIAGNOSTIC Collected: 04/18/2018 Status: F Source: [place] 11:15 AM [facility] REPOSITORY TYPE CODE TESTS RESULT OUT OF REFERENCE UNITS RANGE LAB PSA 0.00-2.59 ng/mL PSA, Diagnostic 0.03 Result Comment: Total PSA test methodology used is the Electrochemiluminescence Immunoassay. Performed By: #### CBCDIF, CMP, IRON, B12, HBA1C, PSA, SEPG #### [facility] [address] [place], [place] [address] PROTEIN ELECTROPHOR. Collected: 04/18/2018 Status: F Source: [place] 11:15 AM [facility] REPOSITORY TYPE CODE TESTS RESULT OUT OF REFERENCE UNITS RANGE LAB TPSPE 6.0-8.4 g/dL Total Protein, SPE 7.1 LAB ALBE 3.37-4.23 gm/dL Albumin 3.58 LAB A1GL 0.18-0.31 gm/dL Alpha 1 Globulin High 0.32 LAB A2GL 0.52-0.97 gm/dL Alpha 2 Globulin High 1.12 LAB BEGL 0.84-1.36 gm/dL Beta Globulin 1.17 LAB GAGL 0.70-1.44 gm/dL Gamma Globulin 0.91 LAB SPEINT Interpretation SEE COMMENT Result Comment: No definitive M protein is identified on protein electrophoresis. LAB LOC M Protein N/A Location LAB GPERDL 0.00 gm/dL M Agus 0.00 Concentratn LAB SPESTF SPE Staff Review Reviewed by Sang Silverio M.D., PhD ([id number]) Performed By: #### CBCDIF, CMP, IRON, B12, HBA1C, PSA, SEPG #### [facility] [address] [place], [place] [address] XR CHEST 2V FRONTAL/LAT Observed: 04/18/2018 Status: F Source: [place] 11:13 AM [facility] REPOSITORY * * *Final Report* * * DATE OF EXAM: Apr 18 2018 11:13AM WOX [id number] - XR CHEST 2V FRONTAL/LAT / PROCEDURE REASON: multiple diagnoses * * * * Physician Interpretation * * * * EXAMINATION: CHEST RADIOGRAPH (2 VIEW FRONTAL and LATERAL) CLINICAL HISTORY: Wheezing Shortness of breath MQ: XC2_5 Comparison: 10/06/2017 RESULT: Lines, tubes, and devices: None. Lungs and pleura: No consolidation. No lung mass. No pleural effusion. Cardiomediastinal silhouette: Normal cardiomediastinal silhouette. IMPRESSION: No acute radiographic abnormality. 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: JASON Transcribe Date/Time: Apr 18 2018 2:18P Dictated by : LU ROJAS MD This examination was interpreted and the report reviewed and electronically signed by: LU ROJAS MD on Apr 18 2018 2:19PM EST [id number] Observed: 04/18/2018 Status: COMPLETED Source: [place] 11:07 AM [facility] REPOSITORY HNO ID: [id number] Author: Milton Rider (Rt) Service: (none) Author Type: Historic Preservationist Type: Progress Notes Filed: 04/18/2018 11:12 AM Note Text: Radiology Service Progress Note PATIENT NAME: Abraham Gage DATE OF SERVICE: April 18, 2018 TIME: 11:07 AM PATIENT IDENTITY VERIFICATION COMPLETED USING TWO (2) METHODS: Patient confirmed name verbally and Date of . PATIENT GENDER DATA: Male PATIENT RELEVANT IMPLANT DATA REVIEWED: Not Applicable RADIOLOGY DEPARTMENT: General X-ray: Exam(s) Completed: Chest X-Ray PERIPHERAL IV DATA: Not applicable SIGNED BY: RT Tereso April 18, 2018 11:07 AM HISTORY PHYSICAL Observed: 04/18/2018 Status: COMPLETED Source: [place] 9:53 AM [facility] REPOSITORY HNO ID: [id number] Author: Julissa Mittal Service: (none) Author Type: Nurse Practitioner Type: HANDP Filed: 04/25/2018 7:49 AM Note Text: Abraham Gage a 77 year old male who is referred by Dr. Ragsdale for screening colonoscopy. The patient denies a family history of colon cancer. The patient was seen by Dr. Souza for upper endoscopy (GERD symptoms) and colonoscopy (constipation) 07/10/07. The procedure report has been reviewed and findings as follows: EGD FINDINGS: ESOPHAGUS: The esophagus appeared normal. ?The Z-line is erratic but intact. ?There is no evidence of Allen's mucosa - no evidence of julee esophagitis. GE-JUNCTION: The gastroesophageal junction appeared normal. STOMACH: The mucosa of the distal body of the stomach and the antrum appeared erythematous. ?A single H. Pylori biopsy was obtained from the antrum and placed on PyloriTek strip. The stomach was otherwise normal. PYLORUS: The pylorus appeared normal. DUODENUM: The duodenum appeared normal. Colonoscopy IMPRESSION: 1. ?Small non-bleeding internal hemorrhoids were present. 2. ?Normal colonoscopic examination. There were diverticula changes in the left colon but not extensive changes. On chart review I find the following lab Component Latest Ref Rng AND Units 10/24/2017 WBC 3.70 - 11.00 k/uL 9.36 RBC 4.20 - 6.00 m/uL 3.78 (L) Hemoglobin 13.0 - 17.0 g/dL 9.4 (L) Hematocrit 39.0 - 51.0 % 32.9 (L) MCV 80.0 - 100.0 fL 87.0 MCH 26.0 - 34.0 pG 24.9 (L) MCHC 30.5 - 36.0 g/dL 28.6 (L) RDW-CV 11.5 - 15.0 % 17.8 (H) Platelet Count 150 - 400 k/uL 474 (H) MPV 9.0 - 12.7 fL 9.2 Absolute nRBC <0.01 k/uL <0.01 Component Latest Ref Rng AND Units 10/24/2017 01/23/2018 Protein, Total 6.3 - 8.0 g/dL 7.2 6.1 (L) Albumin 3.9 - 4.9 g/dL 4.1 3.8 (L) Calcium 8.5 - 10.2 mg/dL 9.3 9.5 Bilirubin, Total 0.2 - 1.3 mg/dL <0.2 (L) 0.3 Alkaline Phosphatase 36 - 108 U/L 76 81 AST 14 - 40 U/L 19 17 Glucose 74 - 99 mg/dL 104 (H) 87 BUN 9 - 24 mg/dL 35 (H) 33 (H) Creatinine 0.73 - 1.22 mg/dL 1.95 (H) 1.89 (H) Sodium 136 - 144 mmol/L 141 140 Potassium 3.7 - 5.1 mmol/L 3.9 4.0 Chloride 97 - 105 mmol/L 100 98 CO2 22 - 30 mmol/L 26 28 Anion Gap 9 - 18 mmol/L 15 14 ALT 10 - 54 U/L 9 (L) 14 eGFR- 41 42 eGFR-All Other Races . 34 35 Component Latest Ref Rng AND Units 01/23/2018 Creatinine, Ur Random (UCRR) 20 - 300 mg/dL 108.8 Albumin, Urine Random 0.0 - 23.0 mg/L <12.0 Albumin/Creat Ratio 0 - 30 mg/g Not calculated Iron studies are ordered, but not done at this time of this encounter. Will ask the patient to have labs done as soon as possible. Presenting complaint: The patient presents today reporting that he thinks he had procedures by Dr. Nolan Triana within the past year or two for this same problem. I am not able to access A Fourth Act at the moment. The patient doesn't believe that he needs any procedure done, and doesn't want any. The patient tells me that he takes 2 slow Fe a day. Still feeling tired and run down. He tells me they have been wondering about this since I had my last stents put in. Having a bowel movement daily. He tells me that he might see blood only if I'm constipated. Otherwise it's black and tarry from all the iron I take. Taking ranitidine daily. Denies any issues unless he eats something spicy like [employer] pizza. REVIEW OF SYSTEMS: GENERAL: Positive for fatigue. RESPIRATORY: Shortness of breath. Patient states Sanchez feels the SOB is due to anemia and not cardiac. CARDIOVASCULAR: CABG 1994. Hypertension. History of IN (12/15). Multiple stents. Negative stress test 11/09/17. Sees Dr. Sanchez at [facility]. GI: The patient states that his appetite has been good. He does get hungry. There has been no nausea, no vomiting. He denies dysphagia and denies odynophagia. There has rarely been indigestion or heartburn. There has not been regurgitation. Bowel habits have been regular. There has occasionally been diarrhea. There has rarely been constipation. The patient denies rectal bleeding. There has been melena, but also taking iron. No abdominal pain. HEMATOLOGY/LYMPHOLOGY: Taking Plavix. DEVANTE. ENDOCRINE: Diabetes requiring insulin. NEURO: Intermittent neuropathy of both feet. No history of headaches, syncope, paralysis, seizures or tremors. All other reviewed and negative other than HPI. PAST MEDICAL HISTORY Diagnosis Date - Abdominal aneurysm without mention of rupture 09/2015 4.15 cm - Acute gastritis without mention of hemorrhage - AMI (acute myocardial infarction) (HCC) 07/03/2013 - Carotid atherosclerosis 05/2014 - CKD stage G3b/A2, GFR 30-44 and albumin creatinine ratio 30-299 mg/g (HCC) AVOID NEPHROTOXIC MEDICATIONS - Diabetes mellitus type 2, uncontrolled, without complications (HCC) - Diaphragmatic hernia without mention of obstruction or gangrene - Diverticulosis of colon (without mention of hemorrhage) - Generalized osteoarthrosis, unspecified site - Malignant neoplasm of prostate (HCC) - Other and unspecified hyperlipidemia - Unspecified cardiovascular disease 1994 CABG - Unspecified constipation - 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 Ojeda - REPAIR ING HERNIA,5+Y/O,REDUCIBL left Hernia repair, inguinal - SCREENING COLONSCOPY NOT HIGH RISK 04/26/2017 Dr. Yousif Triana; next screening colonoscopy in 10yrs FAMILY HISTORY Problem Relation Age of Onset - Hypertension Father - COPD Father - Heart Mother Current Outpatient Prescriptions: blood sugar diagnostic (BLOOD GLUCOSE TEST) test strip Test blood sugar(s) 1 times daily. Dx: Type 2 DM - Uncontrolled E11.65 Insulin: Yes Disp: 300 Strip Rfl: 3 diltiazem CD (CARDIZEM CD, CARTIA XT) 120 mg 24 hr capsule Take 1 capsule by mouth once daily. Disp: 90 capsule Rfl: 3 losartan (COZAAR) 25 mg tablet Take 1 tablet by mouth once daily. Disp: 90 tablet Rfl: 3 isosorbide mononitrate ER (IMDUR) 30 mg 24 hr tablet Take 1 tablet by mouth once daily. Disp: 90 tablet Rfl: 3 insulin glargine (BASAGLAR KWIKPEN U-100 INSULIN) 100 unit/mL (3 mL) inpn Inject 10 Units subcutaneously daily at bedtime. Disp: 5 Pen Rfl: 3 ferrous sulfate (IRON) 325 mg (65 mg iron) tablet Take 325 mg by mouth twice daily. Disp: Rfl: cetirizine HCl (ZYRTEC) 10 mg chewable tablet Take 10 mg by mouth once daily. Disp: Rfl: COMPOUNDED PRESCRIPTION kyloic Cholesterol 104 Disp: Rfl: cholecalciferol (VITAMIN D-3) 5,000 unit tab Take 5,000 Units by mouth twice daily. Disp: Rfl: amLODIPine (NORVASC) 5 mg tablet Take 1 tablet by mouth once daily. Disp: 90 tablet Rfl: 3 ranitidine (ZANTAC) 150 mg tablet Take 1 tablet by mouth daily at bedtime. Disp: 90 tablet Rfl: 3 ezetimibe (ZETIA) 10 mg tablet Take 1 tablet by mouth once daily. Disp: 90 tablet Rfl: 3 benzonatate (TESSALON PERLES) 100 mg capsule Take 1 capsule by mouth three times daily as needed for Cough. Disp: 30 capsule Rfl: 0 blood sugar diagnostic (BLOOD GLUCOSE TEST) test strip Use once daily to test blood sugar in the morning Disp: 1 Bottle Rfl: 5 TRUE METRIX GLUCOSE METER misc 1 Each as directed. Disp: Rfl: 0 metoprolol tartrate, short acting, (LOPRESSOR) 25 mg tablet TAKE 1/2 (ONE-HALF) OF A TABLET BY MOUTH TWICE DAILY Disp: Rfl: 3 KLOR-CON M10 10 mEq tablet Take 10 mEq by mouth once daily. Disp: Rfl: 3 Insulin Hume, Disposable, (BD ULTRA-FINE BENNY PEN NEEDLES) 32 gauge x 5/32 ndle Use once daily with Lantus as directed Disp: 100 Each Rfl: 3 Blood-Glucose Meter (FREESTYLE LITE METER) monitoring kit 1 Each as directed. Disp: 1 Each Rfl: 0 Lancets lancets Use as instructed Disp: 50 Each Rfl: 0 gemfibrozil (LOPID) 600 mg tablet Take 1 tablet by mouth twice daily. Disp: 180 tablet Rfl: 3 furosemide (LASIX) 40 mg tablet Take 1 tablet by mouth once daily. Disp: 90 tablet Rfl: 3 clopidogrel (PLAVIX) 75 mg tablet Take 1 tablet by mouth once daily. Disp: 90 tablet Rfl: 3 potassium chloride (KLOR-CON 10) 10 mEq tablet Take 1 tablet by mouth once daily. Disp: 90 tablet Rfl: 3 VIT C/VIT E/LUTEIN/MIN/OMEGA-3 (OCUVITE ORAL) Take by mouth. Disp: Rfl: COMPOUNDED PRESCRIPTION Nature's way Kidney Bladder Disp: Rfl: COMPOUNDED PRESCRIPTION Nature's Way Garlic Parsley Disp: Rfl: triamcinolone acetonide (KENALOG) 0.1 % cream Apply 1 application to affected area twice daily as needed (rash). Apply sparingly to area for rash/itching. Disp: 60 g Rfl: 3 hydrocortisone 2.5 % cream Apply 1 application to affected area twice daily. Location: face Disp: 30 g Rfl: 2 CHOLECALCIFEROL, VITAMIN D3, (VITAMIN D3 ORAL) Take 600 mg by mouth once daily. Disp: Rfl: coenzyme Q10 (COQ-10) 100 mg cap Take 1 capsule by mouth. Disp: Rfl: 0 ONE DAILY MULTI-VITAMIN ORAL TAB Take one(1) tablet daily. Disp: Rfl: 0 CALTRATE-600 PLUS VITAMIN D3 600 MG-200 UNIT ORAL TAB TAKE TWO TABLETS DAILY. Disp: Rfl: 0 No current facility-administered medications for this visit. SOCIAL HISTORY: Patient is . He quit smoking over 30 years ago and reports his alcohol use as very rarely. PHYSICAL EXAMINATION: Blood pressure 113/59, pulse 66, height 172.7 cm (5' 8), weight 76.7 kg (169 lb). General Appearance: Well appearing, alert, in no acute distress, well-hydrated, well nourished. Skin: Skin color, texture, turgor normal, no suspicious rashes or lesions. Head: Normocephalic, no masses, lesions or abnormalities. Eyes: Anicteric sclera. Neck: Supple, no adenopathy; thyroid symmetric, normal size. Lungs: Lungs clear to auscultation. No wheezing, rhonchi, rales. Heart: RRR without murmur. Abdomen: Abdomen soft, non-tender. Bowel sounds normal. No masses, organomegaly. Extremities: No deformities, edema. Peripheral Pulses: Normal. Impression/ Plan: 1) colorectal cancer screening - not indicated - had colonoscopy last year 2) DEVANTE: had procedures last year for same diagnosis. Will discuss small bowel capsule Post visit information: Date of Procedure: 04/26/17 Pre-Operative Diagnosis: Anemia of undetermined etiology Post-Operative Diagnosis: Mild gastritis. Mild distal esophagitis. Coffee-ground material noted. Sigmoid and descending diverticulosis. Internal hemorrhoids Surgery/Procedure Performed:: Esophagogastroduodenoscopy with biopsies. Colonoscopy Timeout and informed consent was obtained. 76-year-old gentleman was taken to the endoscopy suite. His oropharynx anesthetized with Cetacaine. He was placed in a left lateral decubitus position. Under direct physician GIF-130 gastroscope was inserted into the esophageal inlet. Proximal mid distal esophagus did not appear to be remarkable. Minimal amount of distal esophagitis noted. No evidence of active bleeding from the esophagus. The scope was advanced into the stomach where in the antral area flecks of coffee-ground material was noted. There is no evidence of any active bleeding. Very mild erythema. No ulcerations. The scope was advanced through the pylorus. The first and second portions of the duodenum were inspected this did not appear to be remarkable. The scope was withdrawn back into the stomach retroflexed GE junction cardia noted. There were specks of coffee-ground type material within the cardia as well. I could not find a source of active bleeding. Scope was placed back in antegrade viewing position. Greater and lesser curvatures were inspected. The scope was advanced back down to the prepyloric area. Biopsy was obtained for histopathology. Excess fluid nurse aspirated free. The scope was withdrawn to the distal esophagus where irritation and friability was noted at a very short segment. This was biopsied as well. Seizure was completed with the patient tolerating it well. He was kept in the left up to good position. Digital rectal exam performed. Lax anal tone. Absent prostate. Flexible CF- 140 colonoscope was inserted into the rectum advanced to a somewhat tortuous sigmoid then with some transabdominal abdominal pressure was advanced through the transverse colon into the cecum. The cecum ileocecal valve area was achieved. The scope was carefully withdrawn from the cecum and ascending colon transverse colon descending colon and sigmoid colon. The descending and sigmoid colon has scattered diverticulosis but no evidence of bleeding. Scope was withdrawn to the rectum retroflex anorectal verge inspected hemorrhoidal changes noted. Excess fluid and air was aspirated free with the procedure completed and the patient tolerating it well. It is note that the photographic equipment for this procedure malfunction. I had photographs of the coffee-ground material of the stomach and of the cecum. Impression: Findings suggest an upper gastritis likely related to the patient's clopidogrel and aspirin and potassium replacements. We will initiate an H2 amrita because of his clopidogrel therapy. Left-sided diverticulosis but no evidence of any diverticular bleed. Internal hemorrhoids but no evidence of bleeding STUDY: AIR-CONTRAST UPPER GI SERIES AND SMALL BOWEL FOLLOW-THROUGH EXAMINATION. 05/31/17 REASON FOR EXAM: Male, 76 years old. Anemia. FLUOROSCOPY TIME (if supplied): (1:53) minutes/seconds TECHNIQUE: The patient ingested barium. Multiple images of the esophagus stomach and duodenum were obtained. Following this, a small bowel follow-through examination was performed. COMPARISON: None. FINDINGS: The patient is status post CABG. The esophagus shows evidence of a small sliding hiatal hernia. There is evidence of gastroesophageal reflux. The stomach and duodenum are unremarkable. There is no evidence of ulceration. No mass lesion is seen. A small bowel follow-through examination wasn't performed. The transit time is normal. No evidence of intrinsic or extrinsic small bowel disease. The terminal ileum is unremarkable. RAD/Upper GI/w Small Bowel IMPRESSION: Small sliding hiatal hernia with gastroesophageal reflux. PLAN: I suggest repeating EGD. Patient will discuss holding the Plavix with Dr. Sanchez. Will see him after that appointment. Julissa Mittal RN CHIEF TELEPHONE OPERATOR.JAIRON Mittal RN CHIEF TELEPHONE OPERATOR.JAIRON VORA Observed: 04/18/2018 Status: COMPLETED Source: [place] 9:40 AM [facility] REPOSITORY [facility] ABRAHAM GAGE ([id number]) 1940 M Date Time Provider Department 04/18/18 9:40 AM JULISSA MITTAL (MALIHA) [facility] During your visit today, we recorded the following information about you: Pulse Blood pressure Weight Height 66/minute 113/59 76.7 kg 1.727 m Julissa Mittal RN APRN.DIP FILLER 04/25/2018 7:49 AM Signed Abraham Gage a 77 year old male who is referred by Dr. Ragsdale for screening colonoscopy. The patient denies a family history of colon cancer. The patient was seen by Dr. Souza for upper endoscopy (GERD symptoms) and colonoscopy (constipation) 07/10/07. The procedure report has been reviewed and findings as follows: EGD FINDINGS: ESOPHAGUS: The esophagus appeared normal. ?The Z-line is erratic but intact. ?There is no evidence of Allen's mucosa - no evidence of julee esophagitis. GE-JUNCTION: The gastroesophageal junction appeared normal. STOMACH: The mucosa of the distal body of the stomach and the antrum appeared erythematous. ?A single H. Pylori biopsy was obtained from the antrum and placed on PyloriTek strip. The stomach was otherwise normal. PYLORUS: The pylorus appeared normal. DUODENUM: The duodenum appeared normal. Colonoscopy IMPRESSION: 1. ?Small non-bleeding internal hemorrhoids were present. 2. ?Normal colonoscopic examination. There were diverticula changes in the left colon but not extensive changes. On chart review I find the following lab Component Latest Ref Rng AND Units 10/24/2017 WBC 3.70 - 11.00 k/uL 9.36 RBC 4.20 - 6.00 m/uL 3.78 (L) Hemoglobin 13.0 - 17.0 g/dL 9.4 (L) Hematocrit 39.0 - 51.0 % 32.9 (L) MCV 80.0 - 100.0 fL 87.0 MCH 26.0 - 34.0 pG 24.9 (L) MCHC 30.5 - 36.0 g/dL 28.6 (L) RDW-CV 11.5 - 15.0 % 17.8 (H) Platelet Count 150 - 400 k/uL 474 (H) MPV 9.0 - 12.7 fL 9.2 Absolute nRBC <0.01 k/uL <0.01 Component Latest Ref Rng AND Units 10/24/2017 01/23/2018 Protein, Total 6.3 - 8.0 g/dL 7.2 6.1 (L) Albumin 3.9 - 4.9 g/dL 4.1 3.8 (L) Calcium 8.5 - 10.2 mg/dL 9.3 9.5 Bilirubin, Total 0.2 - 1.3 mg/dL <0.2 (L) 0.3 Alkaline Phosphatase 36 - 108 U/L 76 81 AST 14 - 40 U/L 19 17 Glucose 74 - 99 mg/dL 104 (H) 87 BUN 9 - 24 mg/dL 35 (H) 33 (H) Creatinine 0.73 - 1.22 mg/dL 1.95 (H) 1.89 (H) Sodium 136 - 144 mmol/L 141 140 Potassium 3.7 - 5.1 mmol/L 3.9 4.0 Chloride 97 - 105 mmol/L 100 98 CO2 22 - 30 mmol/L 26 28 Anion Gap 9 - 18 mmol/L 15 14 ALT 10 - 54 U/L 9 (L) 14 eGFR- 41 42 eGFR-All Other Races . 34 35 Component Latest Ref Rng AND Units 01/23/2018 Creatinine, Ur Random (UCRR) 20 - 300 mg/dL 108.8 Albumin, Urine Random 0.0 - 23.0 mg/L <12.0 Albumin/Creat Ratio 0 - 30 mg/g Not calculated Iron studies are ordered, but not done at this time of this encounter. Will ask the patient to have labs done as soon as possible. Presenting complaint: The patient presents today reporting that he thinks he had procedures by Dr. Nolan Triana within the past year or two for this same problem. I am not able to access A Fourth Act at the moment. The patient doesn't believe that he needs any procedure done, and doesn't want any. The patient tells me that he takes 2 slow Fe a day. Still feeling tired and run down. He tells me they have been wondering about this since I had my last stents put in. Having a bowel movement daily. He tells me that he might see blood only if I'm constipated. Otherwise it's black and tarry from all the iron I take. Taking ranitidine daily. Denies any issues unless he eats something spicy like [employer] pizza. REVIEW OF SYSTEMS: GENERAL: Positive for fatigue. RESPIRATORY: Shortness of breath. Patient states Sanchez feels the SOB is due to anemia and not cardiac. CARDIOVASCULAR: CABG 1994. Hypertension. History of IN (12/15). Multiple stents. Negative stress test 11/09/17. Sees Dr. Sanchez at [facility]. GI: The patient states that his appetite has been good. He does get hungry. There has been no nausea, no vomiting. He denies dysphagia and denies odynophagia. There has rarely been indigestion or heartburn. There has not been regurgitation. Bowel habits have been regular. There has occasionally been diarrhea. There has rarely been constipation. The patient denies rectal bleeding. There has been melena, but also taking iron. No abdominal pain. HEMATOLOGY/LYMPHOLOGY: Taking Plavix. DEVANTE. ENDOCRINE: Diabetes requiring insulin. NEURO: Intermittent neuropathy of both feet. No history of headaches, syncope, paralysis, seizures or tremors. All other reviewed and negative other than HPI. PAST MEDICAL HISTORY Diagnosis Date - Abdominal aneurysm without mention of rupture 09/2015 4.15 cm - Acute gastritis without mention of hemorrhage - AMI (acute myocardial infarction) (HCC) 07/03/2013 - Carotid atherosclerosis 05/2014 - CKD stage G3b/A2, GFR 30-44 and albumin creatinine ratio 30-299 mg/g (HCC) AVOID NEPHROTOXIC MEDICATIONS - Diabetes mellitus type 2, uncontrolled, without complications (HCC) - Diaphragmatic hernia without mention of obstruction or gangrene - Diverticulosis of colon (without mention of hemorrhage) - Generalized osteoarthrosis, unspecified site - Malignant neoplasm of prostate (HCC) - Other and unspecified hyperlipidemia - Unspecified cardiovascular disease 1994 CABG - Unspecified constipation - 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 Ojeda - REPAIR ING HERNIA,5+Y/O,REDUCIBL left Hernia repair, inguinal - SCREENING COLONSCOPY NOT HIGH RISK 04/26/2017 Dr. Yousif Triana; next screening colonoscopy in 10yrs FAMILY HISTORY Problem Relation Age of Onset - Hypertension Father - COPD Father - Heart Mother Current Outpatient Prescriptions: blood sugar diagnostic (BLOOD GLUCOSE TEST) test strip Test blood sugar(s) 1 times daily. Dx: Type 2 DM - Uncontrolled E11.65 Insulin: Yes Disp: 300 Strip Rfl: 3 diltiazem CD (CARDIZEM CD, CARTIA XT) 120 mg 24 hr capsule Take 1 capsule by mouth once daily. Disp: 90 capsule Rfl: 3 losartan (COZAAR) 25 mg tablet Take 1 tablet by mouth once daily. Disp: 90 tablet Rfl: 3 isosorbide mononitrate ER (IMDUR) 30 mg 24 hr tablet Take 1 tablet by mouth once daily. Disp: 90 tablet Rfl: 3 insulin glargine (BASAGLAR KWIKPEN U-100 INSULIN) 100 unit/mL (3 mL) inpn Inject 10 Units subcutaneously daily at bedtime. Disp: 5 Pen Rfl: 3 ferrous sulfate (IRON) 325 mg (65 mg iron) tablet Take 325 mg by mouth twice daily. Disp: Rfl: cetirizine HCl (ZYRTEC) 10 mg chewable tablet Take 10 mg by mouth once daily. Disp: Rfl: COMPOUNDED PRESCRIPTION kyloic Cholesterol 104 Disp: Rfl: cholecalciferol (VITAMIN D-3) 5,000 unit tab Take 5,000 Units by mouth twice daily. Disp: Rfl: amLODIPine (NORVASC) 5 mg tablet Take 1 tablet by mouth once daily. Disp: 90 tablet Rfl: 3 ranitidine (ZANTAC) 150 mg tablet Take 1 tablet by mouth daily at bedtime. Disp: 90 tablet Rfl: 3 ezetimibe (ZETIA) 10 mg tablet Take 1 tablet by mouth once daily. Disp: 90 tablet Rfl: 3 benzonatate (TESSALON PERLES) 100 mg capsule Take 1 capsule by mouth three times daily as needed for Cough. Disp: 30 capsule Rfl: 0 blood sugar diagnostic (BLOOD GLUCOSE TEST) test strip Use once daily to test blood sugar in the morning Disp: 1 Bottle Rfl: 5 TRUE METRIX GLUCOSE METER misc 1 Each as directed. Disp: Rfl: 0 metoprolol tartrate, short acting, (LOPRESSOR) 25 mg tablet TAKE 1/2 (ONE-HALF) OF A TABLET BY MOUTH TWICE DAILY Disp: Rfl: 3 KLOR-CON M10 10 mEq tablet Take 10 mEq by mouth once daily. Disp: Rfl: 3 Insulin Hume, Disposable, (BD ULTRA-FINE BENNY PEN NEEDLES) 32 gauge x 5/32 ndle Use once daily with Lantus as directed Disp: 100 Each Rfl: 3 Blood-Glucose Meter (FREESTYLE LITE METER) monitoring kit 1 Each as directed. Disp: 1 Each Rfl: 0 Lancets lancets Use as instructed Disp: 50 Each Rfl: 0 gemfibrozil (LOPID) 600 mg tablet Take 1 tablet by mouth twice daily. Disp: 180 tablet Rfl: 3 furosemide (LASIX) 40 mg tablet Take 1 tablet by mouth once daily. Disp: 90 tablet Rfl: 3 clopidogrel (PLAVIX) 75 mg tablet Take 1 tablet by mouth once daily. Disp: 90 tablet Rfl: 3 potassium chloride (KLOR-CON 10) 10 mEq tablet Take 1 tablet by mouth once daily. Disp: 90 tablet Rfl: 3 VIT C/VIT E/LUTEIN/MIN/OMEGA-3 (OCUVITE ORAL) Take by mouth. Disp: Rfl: COMPOUNDED PRESCRIPTION Nature's way Kidney Bladder Disp: Rfl: COMPOUNDED PRESCRIPTION Nature[facility] Way Garlic Parsley Disp: Rfl: triamcinolone acetonide (KENALOG) 0.1 % cream Apply 1 application to affected area twice daily as needed (rash). Apply sparingly to area for rash/itching. Disp: 60 g Rfl: 3 hydrocortisone 2.5 % cream Apply 1 application to affected area twice daily. Location: face Disp: 30 g Rfl: 2 CHOLECALCIFEROL, VITAMIN D3, (VITAMIN D3 ORAL) Take 600 mg by mouth once daily. Disp: Rfl: coenzyme Q10 (COQ-10) 100 mg cap Take 1 capsule by mouth. Disp: Rfl: 0 ONE DAILY MULTI-VITAMIN ORAL TAB Take one(1) tablet daily. Disp: Rfl: 0 CALTRATE-600 PLUS VITAMIN D3 600 MG-200 UNIT ORAL TAB TAKE TWO TABLETS DAILY. Disp: Rfl: 0 No current facility-administered medications for this visit. SOCIAL HISTORY: Patient is . He quit smoking over 30 years ago and reports his alcohol use as very rarely. PHYSICAL EXAMINATION: Blood pressure 113/59, pulse 66, height 172.7 cm (5' 8), weight 76.7 kg (169 lb). General Appearance: Well appearing, alert, in no acute distress, well-hydrated, well nourished. Skin: Skin color, texture, turgor normal, no suspicious rashes or lesions. Head: Normocephalic, no masses, lesions or abnormalities. Eyes: Anicteric sclera. Neck: Supple, no adenopathy; thyroid symmetric, normal size. Lungs: Lungs clear to auscultation. No wheezing, rhonchi, rales. Heart: RRR without murmur. Abdomen: Abdomen soft, non-tender. Bowel sounds normal. No masses, organomegaly. Extremities: No deformities, edema. Peripheral Pulses: Normal. Impression/ Plan: 1) colorectal cancer screening - not indicated - had colonoscopy last year 2) DEVANTE: had procedures last year for same diagnosis. Will discuss small bowel capsule Post visit information: Date of Procedure: 04/26/17 Pre-Operative Diagnosis: Anemia of undetermined etiology Post-Operative Diagnosis: Mild gastritis. Mild distal esophagitis. Coffee-ground material noted. Sigmoid and descending diverticulosis. Internal hemorrhoids Surgery/Procedure Performed:: Esophagogastroduodenoscopy with biopsies. Colonoscopy Timeout and informed consent was obtained. 76-year-old gentleman was taken to the endoscopy suite. His oropharynx anesthetized with Cetacaine. He was placed in a left lateral decubitus position. Under direct physician GIF-130 gastroscope was inserted into the esophageal inlet. Proximal mid distal esophagus did not appear to be remarkable. Minimal amount of distal esophagitis noted. No evidence of active bleeding from the esophagus. The scope was advanced into the stomach where in the antral area flecks of coffee-ground material was noted. There is no evidence of any active bleeding. Very mild erythema. No ulcerations. The scope was advanced through the pylorus. The first and second portions of the duodenum were inspected this did not appear to be remarkable. The scope was withdrawn back into the stomach retroflexed GE junction cardia noted. There were specks of coffee-ground type material within the cardia as well. I could not find a source of active bleeding. Scope was placed back in antegrade viewing position. Greater and lesser curvatures were inspected. The scope was advanced back down to the prepyloric area. Biopsy was obtained for histopathology. Excess fluid nurse aspirated free. The scope was withdrawn to the distal esophagus where irritation and friability was noted at a very short segment. This was biopsied as well. Seizure was completed with the patient tolerating it well. He was kept in the left up to good position. Digital rectal exam performed. Lax anal tone. Absent prostate. Flexible CF-140 colonoscope was inserted into the rectum advanced to a somewhat tortuous sigmoid then with some transabdominal abdominal pressure was advanced through the transverse colon into the cecum. The cecum ileocecal valve area was achieved. The scope was carefully withdrawn from the cecum and ascending colon transverse colon descending colon and sigmoid colon. The descending and sigmoid colon has scattered diverticulosis but no evidence of bleeding. Scope was withdrawn to the rectum retroflex anorectal verge inspected hemorrhoidal changes noted. Excess fluid and air was aspirated free with the procedure completed and the patient tolerating it well. It is note that the photographic equipment for this procedure malfunction. I had photographs of the coffee-ground material of the stomach and of the cecum. Impression: Findings suggest an upper gastritis likely related to the patient's clopidogrel and aspirin and potassium replacements. We will initiate an H2 amrita because of his clopidogrel therapy. Left-sided diverticulosis but no evidence of any diverticular bleed. Internal hemorrhoids but no evidence of bleeding STUDY: AIR-CONTRAST UPPER GI SERIES AND SMALL BOWEL FOLLOW-THROUGH EXAMINATION. 05/31/17 REASON FOR EXAM: Male, 76 years old. Anemia. FLUOROSCOPY TIME (if supplied): (1:53) minutes/seconds TECHNIQUE: The patient ingested barium. Multiple images of the esophagus stomach and duodenum were obtained. Following this, a small bowel follow-through examination was performed. COMPARISON: None. FINDINGS: The patient is status post CABG. The esophagus shows evidence of a small sliding hiatal hernia. There is evidence of gastroesophageal reflux. The stomach and duodenum are unremarkable. There is no evidence of ulceration. No mass lesion is seen. A small bowel follow-through examination wasn't performed. The transit time is normal. No evidence of intrinsic or extrinsic small bowel disease. The terminal ileum is unremarkable. RAD/Upper GI/w Small Bowel IMPRESSION: Small sliding hiatal hernia with gastroesophageal reflux. PLAN: I suggest repeating EGD. Patient will discuss holding the Plavix with Dr. Sanchez. Will see him after that appointment. Julissa Mittal RN CHIEF TELEPHONE OPERATOR.DIP FILLER Julissa Mittal RN CHIEF TELEPHONE OPERATOR.JAIRON Mittal RN CHIEF TELEPHONE OPERATOR.DIP FILLER 04/18/2018 10:38 AM Addendum Chest x-ray today. Blood work today. Keep your appointments with Dr. Ragsdale and Dr. Sanchez. Discuss the holding of Plavix with Dr. Sanchez at your appointment on the . Follow up with me on May 08, arriving at 3:20. Referring Provider: SAMSON RAGSDALE [[id number]] Allergies As of Date: 04/18/2018 Noted Allergy Reaction CRESTOR (ROSUVASTATIN CALCIUM) 04/24/2013 14 - Other: See Comments Comments: Muscle pain GLUCOSAMINE 06/27/2017 16 - Unknown Comments: Nerve pain MOTRIN (IBUPROFEN) 01/19/2006 2 - Rash PRAVASTATIN 02/19/2013 14 - Other: See Comments Comments: muscle aches [id number] REDUCTASE INHIBIT*10/09/2014 14 - Other: See Comments Comments: myalgia Date Reviewed: 04/18/2018 Reviewed by: Carrol Elliott Ma - Fully Assessed Reason for Visit: 10 year Colonoscopy Recall [Other] Primary Visit Diagnosis:Other iron deficiency anemia [D50.8] Other Visit Diagnoses:Bilateral wheezing [R06.2] Shortness of breath [R06.02] Encounter for screening for malignant neoplasm of colon [Z12.11] Order(s):XR CHEST 2V FRONTAL/LAT [[id number]] Order #: [id number] FUTURE Prescriptions as of 04/18/2018 Sig: BLOOD SUGAR DIAGNOSTIC STRIPS Test blood sugar(s) 1 times d* DILTIAZEM SR 120 MG 24 HR CAP Take 1 capsule by mouth once * LOSARTAN 25 MG TABLET Take 1 tablet by mouth once d* ISOSORBIDE MONONITRATE ER 30 * Take 1 tablet by mouth once d* INSULIN GLARGINE (U-100) 100 * Inject 10 Units subcutaneousl* FERROUS SULFATE 325 MG (65 MG* Take 325 mg by mouth twice da* CETIRIZINE 10 MG CHEWABLE TAB* Take 10 mg by mouth once marvin* COMPOUNDED PRESCRIPTION kyloic Cholesterol 104 CHOLECALCIFEROL (VITAMIN D3) * Take 5,000 Units by mouth twi* AMLODIPINE 5 MG TABLET Take 1 tablet by mouth once d* RANITIDINE 150 MG TABLET Take 1 tablet by mouth daily * EZETIMIBE 10 MG TABLET Take 1 tablet by mouth once d* BENZONATATE 100 MG CAPSULE Take 1 capsule by mouth three* BLOOD SUGAR DIAGNOSTIC STRIPS Use once daily to test blood * TRUE METRIX GLUCOSE METER 1 Each as directed. METOPROLOL TARTRATE 25 MG TAB* TAKE 1/2 (ONE-HALF) OF A TABL* KLOR-CON M10 MEQ TABLET,EXTEN* Take 10 mEq by mouth once felice* PEN NEEDLE, DIABETIC 32 GAUGE* Use once daily with Lantus as* BLOOD-GLUCOSE METER KIT 1 Each as directed. LANCETS Use as instructed GEMFIBROZIL 600 MG TABLET Take 1 tablet by mouth twice * FUROSEMIDE 40 MG TABLET Take 1 tablet by mouth once d* CLOPIDOGREL 75 MG TABLET Take 1 tablet by mouth once d* POTASSIUM CHLORIDE ER 10 MEQ * Take 1 tablet by mouth once d* OCUVITE ORAL Take by mouth. COMPOUNDED PRESCRIPTION Nature's way Kidney Bladder COMPOUNDED PRESCRIPTION Nature's Way Garlic Parsley TRIAMCINOLONE ACETONIDE 0.1 %* Apply 1 application to affect* HYDROCORTISONE 2.5 % TOPICAL * Apply 1 application to affect* VITAMIN D3 ORAL Take 600 mg by mouth once felice* COENZYME Q10 100 MG CAPSULE Take 1 capsule by mouth. ONE DAILY MULTI-VITAMIN TABLET Take one(1) tablet daily. CALTRATE-600 PLUS VITAMIN D3 * TAKE TWO TABLETS DAILY. Problem List As Of Date 04/18/2018 Noted Resolved GENERAL OSTEOARTHROSIS [M15.9] DIAPHRAGMATIC HERNIA [K44.9] ASCVD [I25.10] More... 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] INVALID FOR* L-S Radiculopathy [M54.17] INVALID FOR* Thoracic or Lumbosacral Neuritis or Radiculitis*INVALID FOR* Glucose intolerance (pre-diabetes) [R73.03] INVALID FOR*07/04/2014 CAD (coronary artery disease) [I25.10] INVALID FOR* Gout [M10.9] INVALID FOR* AAA (abdominal aortic aneurysm) [I71.4] INVALID FOR* Diabetes mellitus type 2, uncontrolled, without*INVALID FOR* Stented coronary artery [Z95.5] INVALID FOR* Fatigue [R53.83] INVALID FOR* Absolute anemia [D64.9] INVALID FOR* CKD (chronic kidney disease) stage 3, GFR 30-59*INVALID FOR* Diarrhea [R19.7] INVALID FOR* CKD (chronic kidney disease) stage 4, GFR 15-29*INVALID FOR* Coronary artery 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 rich plaqu*INVALID FOR* Low blood potassium [E87.6] INVALID FOR* Uncontrolled type 2 diabetes mellitus without c*INVALID FOR* Other instructions from your clinician: Chest x-ray today. Blood work today. Keep your appointments with Dr. Ragsdale and Dr. Sanchez. Discuss the holding of Plavix with Dr. Sanchez at your appointment on the . Follow up with me on May 08, arriving at 3:20. Encounter Status:Closed by JULISSA MITTAL CNP on 04/25/18 PROGRESS Observed: 03/15/2018 Status: COMPLETED Source: [place] 10:05 AM [facility] REPOSITORY HNO ID: [id number] Author: Billy Navarro (Rn) Service: (none) Author Type: Registered Nurse Type: Progress Notes Filed: 03/16/2018 1:28 PM Note Text: PRIMARY CARE COORDINATION FOLLOW-UP NOTE Provider Action/FYI Met with Pt who provided a copy of eye exam, forwarded to Pcp for review. Patient identified by name and date of . YES Spoke to patient Signature Ramon Cervantes RN March 15, 2018 JAIRONTOASIA Observed: 03/15/2018 Status: COMPLETED Source: [place] 12:00 AM [facility] REPOSITORY Patient Outreach (FAMPWS) VIVEKLETYABRAHAM PINTO ([id number]) 1940 M Date Time Provider Department 03/15/18 BILLY NAVARRO (RN) [facility]AMPWS During your visit today, we recorded the following information about you: Ramon Cervantes RN 03/16/2018 1:28 PM Signed PRIMARY CARE COORDINATION FOLLOW-UP NOTE Provider Action/FYI Met with Pt who provided a copy of eye exam, forwarded to Pcp for review. Patient identified by name and date of . 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 - Patient Initiated [4815] Cmt: Face to Face Prescriptions as of 03/15/2018 Sig: DILTIAZEM SR 120 MG 24 HR CAP Take 1 capsule by mouth once * LOSARTAN 25 MG TABLET Take 1 tablet by mouth once d* ISOSORBIDE MONONITRATE ER 30 * Take 1 tablet by mouth once d* INSULIN GLARGINE (U-100) 100 * Inject 10 Units subcutaneousl* FERROUS SULFATE 325 MG (65 MG* Take 325 mg by mouth twice da* CETIRIZINE 10 MG CHEWABLE TAB* Take 10 mg by mouth once marvin* COMPOUNDED PRESCRIPTION kyloic Cholesterol 104 CHOLECALCIFEROL (VITAMIN D3) * Take 5,000 Units by mouth twi* AMLODIPINE 5 MG TABLET Take 1 tablet by mouth once d* RANITIDINE 150 MG TABLET Take 1 tablet by mouth daily * EZETIMIBE 10 MG TABLET Take 1 tablet by mouth once d* BENZONATATE 100 MG CAPSULE Take 1 capsule by mouth three* BLOOD SUGAR DIAGNOSTIC STRIPS Test blood sugar(s) 1 times d* BLOOD SUGAR DIAGNOSTIC STRIPS Use once daily to test blood * TRUE METRIX GLUCOSE METER 1 Each as directed. METOPROLOL TARTRATE 25 MG TAB* TAKE 1/2 (ONE-HALF) OF A TABL* KLOR-CON M10 MEQ TABLET,EXTEN* Take 10 mEq by mouth once felice* PEN NEEDLE, DIABETIC 32 GAUGE* Use once daily with Lantus as* BLOOD-GLUCOSE METER KIT 1 Each as directed. LANCETS Use as instructed GEMFIBROZIL 600 MG TABLET Take 1 tablet by mouth twice * FUROSEMIDE 40 MG TABLET Take 1 tablet by mouth once d* CLOPIDOGREL 75 MG TABLET Take 1 tablet by mouth once d* POTASSIUM CHLORIDE ER 10 MEQ * Take 1 tablet by mouth once d* OCUVITE ORAL Take by mouth. COMPOUNDED PRESCRIPTION Nature's way Kidney Bladder COMPOUNDED PRESCRIPTION Nature's Way Garlic Parsley TRIAMCINOLONE ACETONIDE 0.1 %* Apply 1 application to affect* HYDROCORTISONE 2.5 % TOPICAL * Apply 1 application to affect* VITAMIN D3 ORAL Take 600 mg by mouth once felice* COENZYME Q10 100 MG CAPSULE Take 1 capsule by mouth. ONE DAILY MULTI-VITAMIN TABLET Take one(1) tablet daily. CALTRATE-600 PLUS VITAMIN D3 * TAKE TWO TABLETS DAILY. Problem List As Of Date 03/15/2018 Noted Resolved GENERAL OSTEOARTHROSIS [M15.9] DIAPHRAGMATIC HERNIA [K44.9] ASCVD [I25.10] More... 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] INVALID FOR* L-S Radiculopathy [M54.17] INVALID FOR* Thoracic or Lumbosacral Neuritis or Radiculitis*INVALID FOR* Glucose intolerance (pre-diabetes) [R73.03] INVALID FOR*07/04/2014 CAD (coronary artery disease) [I25.10] INVALID FOR* Gout [M10.9] INVALID FOR* AAA (abdominal aortic aneurysm) [I71.4] INVALID FOR* Diabetes mellitus type 2, uncontrolled, without*INVALID FOR* Stented coronary artery [Z95.5] INVALID FOR* Fatigue [R53.83] INVALID FOR* Absolute anemia [D64.9] INVALID FOR* CKD (chronic kidney disease) stage 3, GFR 30-59*INVALID FOR* Diarrhea [R19.7] INVALID FOR* CKD (chronic kidney disease) stage 4, GFR 15-29*INVALID FOR* Coronary artery 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 rich plaqu*INVALID FOR* Low blood potassium [E87.6] INVALID FOR* Uncontrolled type 2 diabetes mellitus without c*INVALID FOR* Encounter Status:Closed by RAMON CERVANTES on 03/16/18 PROGRESS Observed: 03/14/2018 Status: COMPLETED Source: [place] 9:56 AM [facility] REPOSITORY O ID: [id number] Author: Billy Navarro (Rn) Service: (none) Author Type: Registered Nurse Type: Progress Notes Filed: 03/21/2018 11:04 AM Note Text: PRIMARY CARE COORDINATION FOLLOW-UP NOTE Provider Action/FYI Call from Pt who reports he had an eye exam in September by Dr. Cantu in [place], Interpreter Translator reviewed chart could not locate the report, will request exam be forwarded to Pcp. Patient identified by name and date of . YES Spoke to patient Signature Ramon Cervantes RN March 14, 2018 CNPTOUTREACH Observed: 03/14/2018 Status: COMPLETED Source: [place] 12:00 AM [facility] REPOSITORY Patient Outreach (FPWADS) ABRAHAM GAGE ([id number]) 1940 M Date Time Provider Department 03/14/18 BILLY NAVARRO (RN) [place] During your visit today, we recorded the following information about you: Ramon Cervantes RN 03/21/2018 11:04 AM Signed PRIMARY CARE COORDINATION FOLLOW-UP NOTE Provider Action/FYI Call from Pt who reports he had an eye exam in September by Dr. Cantu in [place], Interpreter Translator reviewed chart could not locate the report, will request exam be forwarded to Pcp. Patient identified by name and date of . 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 [6684] Cmt: Dilated Eye Exam Reason For Visit History Recorded Prescriptions as of 03/14/2018 Sig: DILTIAZEM SR 120 MG 24 HR CAP Take 1 capsule by mouth once * LOSARTAN 25 MG TABLET Take 1 tablet by mouth once d* ISOSORBIDE MONONITRATE ER 30 * Take 1 tablet by mouth once d* INSULIN GLARGINE (U-100) 100 * Inject 10 Units subcutaneousl* FERROUS SULFATE 325 MG (65 MG* Take 325 mg by mouth twice da* CETIRIZINE 10 MG CHEWABLE TAB* Take 10 mg by mouth once marvin* COMPOUNDED PRESCRIPTION kyloic Cholesterol 104 CHOLECALCIFEROL (VITAMIN D3) * Take 5,000 Units by mouth twi* AMLODIPINE 5 MG TABLET Take 1 tablet by mouth once d* RANITIDINE 150 MG TABLET Take 1 tablet by mouth daily * EZETIMIBE 10 MG TABLET Take 1 tablet by mouth once d* BENZONATATE 100 MG CAPSULE Take 1 capsule by mouth three* BLOOD SUGAR DIAGNOSTIC STRIPS Test blood sugar(s) 1 times d* BLOOD SUGAR DIAGNOSTIC STRIPS Use once daily to test blood * TRUE METRIX GLUCOSE METER 1 Each as directed. METOPROLOL TARTRATE 25 MG TAB* TAKE 1/2 (ONE-HALF) OF A TABL* KLOR-CON M10 MEQ TABLET,EXTEN* Take 10 mEq by mouth once felice* PEN NEEDLE, DIABETIC 32 GAUGE* Use once daily with Lantus as* BLOOD-GLUCOSE METER KIT 1 Each as directed. LANCETS Use as instructed GEMFIBROZIL 600 MG TABLET Take 1 tablet by mouth twice * FUROSEMIDE 40 MG TABLET Take 1 tablet by mouth once d* CLOPIDOGREL 75 MG TABLET Take 1 tablet by mouth once d* POTASSIUM CHLORIDE ER 10 MEQ * Take 1 tablet by mouth once d* OCUVITE ORAL Take by mouth. COMPOUNDED PRESCRIPTION Nature's way Kidney Bladder COMPOUNDED PRESCRIPTION Nature's Way Garlic [place] TRIAMCINOLONE ACETONIDE 0.1 %* Apply 1 application to affect* HYDROCORTISONE 2.5 % TOPICAL * Apply 1 application to affect* VITAMIN D3 ORAL Take 600 mg by mouth once felice* COENZYME Q10 100 MG CAPSULE Take 1 capsule by mouth. ONE DAILY MULTI-VITAMIN TABLET Take one(1) tablet daily. CALTRATE-600 PLUS VITAMIN D3 * TAKE TWO TABLETS DAILY. Problem List As Of Date 03/14/2018 Noted Resolved GENERAL OSTEOARTHROSIS [M15.9] DIAPHRAGMATIC HERNIA [K44.9] ASCVD [I25.10] More... 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] INVALID FOR* L-S Radiculopathy [M54.17] INVALID FOR* Thoracic or Lumbosacral Neuritis or Radiculitis*INVALID FOR* Glucose intolerance (pre-diabetes) [R73.03] INVALID FOR*07/04/2014 CAD (coronary artery disease) [I25.10] INVALID FOR* Gout [M10.9] INVALID FOR* AAA (abdominal aortic aneurysm) [I71.4] INVALID FOR* Diabetes mellitus type 2, uncontrolled, without*INVALID FOR* Stented coronary artery [Z95.5] INVALID FOR* Fatigue [R53.83] INVALID FOR* Absolute anemia [D64.9] INVALID FOR* CKD (chronic kidney disease) stage 3, GFR 30-59*INVALID FOR* Diarrhea [R19.7] INVALID FOR* CKD (chronic kidney disease) stage 4, GFR 15-29*INVALID FOR* Coronary artery 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 rich plaqu*INVALID FOR* Low blood potassium [E87.6] INVALID FOR* Uncontrolled type 2 diabetes mellitus without c*INVALID FOR* Encounter Status:Closed by RAMON CERVANTES on 03/21/18 PROGRESS Observed: 03/10/2018 Status: COMPLETED Source: [place] 2:51 PM [facility] HNO ID: [id number] Author: Billy Navarro (Rn) Service: (none) Author Type: Registered Nurse Type: Progress Notes Filed: 03/10/2018 3:46 PM Note Text: PRIMARY CARE COORDINATION FOLLOW-UP NOTE Provider Action/FYI 1. [facility] chart Audit, Spk with Pt who reports Hgb A1C 5.8, Pt denies Hypoglycemia symptoms, FBS 100-110. 2. Pt reports some feet pain, feels it is due to DM 3. Hx IN and Stent 2017: Pt denies CP, has Sob with increased activity, and chronic ankle swelling by the end of the day. Instructed Pt to call PCP early with new or unusual symptoms. Pt verbalized understanding. 4. Pt denies needs, Provided Interpreter Translator's phone number. Patient identified by name and date of . YES Spoke to patient Interpreter Translator plan for next outreach: [facility] Review-No further follow up needed at this time and Pt denies Care Coordination needs Signature Ramon Cervantes RN March 10, 2018 CNPTOUTREACH Observed: 03/10/2018 Status: COMPLETED Source: [place] 12:00 AM [facility] REPOSITORY Patient Outreach (FAMPWS) ABRAHAM GAGE ([id number]) 1940 M Date Time Provider Department 03/10/18 BILLY NAVARRO (RN) FAMPWS During your visit today, we recorded the following information about you: Ramon Cervantes RN 03/10/2018 3:46 PM Signed PRIMARY CARE COORDINATION FOLLOW-UP NOTE Provider Action/FYI 1. [facility] chart Audit, Spk with Pt who reports Hgb A1C 5.8, Pt denies Hypoglycemia symptoms, FBS 100-110. 2. Pt reports some feet pain, feels it is due to DM 3. Hx IN and Stent 2017: Pt denies CP, has Sob with increased activity, and chronic ankle swelling by the end of the day. Instructed Pt to call PCP early with new or unusual symptoms. Pt verbalized understanding. 4. Pt denies needs, Provided Interpreter Translator's phone number. Patient identified by name and date of . YES Spoke to patient Interpreter Translator plan for next outreach: [facility] Review-No further follow up needed at this time and Pt denies Care Coordination needs Signature Ramon Cervantes RN March 10, 2018 Allergies As of Date: 03/10/2018 Noted Allergy Reaction CRESTOR (ROSUVASTATIN CALCIUM) 04/24/2013 14 - Other: See Comments Comments: Muscle pain GLUCOSAMINE 06/27/2017 16 - Unknown Comments: Nerve pain MOTRIN (IBUPROFEN) 01/19/2006 2 - Rash PRAVASTATIN 02/19/2013 14 - Other: See Comments Comments: muscle aches [id number] REDUCTASE INHIBIT*10/09/2014 14 - Other: See Comments Comments: myalgia Date Reviewed: 01/30/2018 Reviewed by: Shila Hernández LPN - Fully Assessed 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 Chronic Care [0903] Cmt: [facility] Prescriptions as of 03/10/2018 Sig: DILTIAZEM SR 120 MG 24 HR CAP Take 1 capsule by mouth once * LOSARTAN 25 MG TABLET Take 1 tablet by mouth once d* ISOSORBIDE MONONITRATE ER 30 * Take 1 tablet by mouth once d* INSULIN GLARGINE (U-100) 100 * Inject 10 Units subcutaneousl* FERROUS SULFATE 325 MG (65 MG* Take 325 mg by mouth twice da* CETIRIZINE 10 MG CHEWABLE TAB* Take 10 mg by mouth once marvin* COMPOUNDED PRESCRIPTION kyloic Cholesterol 104 CHOLECALCIFEROL (VITAMIN D3) * Take 5,000 Units by mouth twi* AMLODIPINE 5 MG TABLET Take 1 tablet by mouth once d* RANITIDINE 150 MG TABLET Take 1 tablet by mouth daily * EZETIMIBE 10 MG TABLET Take 1 tablet by mouth once d* BENZONATATE 100 MG CAPSULE Take 1 capsule by mouth three* BLOOD SUGAR DIAGNOSTIC STRIPS Test blood sugar(s) 1 times d* BLOOD SUGAR DIAGNOSTIC STRIPS Use once daily to test blood * TRUE METRIX GLUCOSE METER 1 Each as directed. METOPROLOL TARTRATE 25 MG TAB* TAKE 1/2 (ONE-HALF) OF A TABL* KLOR-CON M10 MEQ TABLET,EXTEN* Take 10 mEq by mouth once felice* PEN NEEDLE, DIABETIC 32 GAUGE* Use once daily with Lantus as* BLOOD-GLUCOSE METER KIT 1 Each as directed. LANCETS Use as instructed GEMFIBROZIL 600 MG TABLET Take 1 tablet by mouth twice * FUROSEMIDE 40 MG TABLET Take 1 tablet by mouth once d* CLOPIDOGREL 75 MG TABLET Take 1 tablet by mouth once d* POTASSIUM CHLORIDE ER 10 MEQ * Take 1 tablet by mouth once d* OCUVITE ORAL Take by mouth. COMPOUNDED PRESCRIPTION Nature's way Kidney Bladder COMPOUNDED PRESCRIPTION Nature's Way Garlic [place] TRIAMCINOLONE ACETONIDE 0.1 %* Apply 1 application to affect* HYDROCORTISONE 2.5 % TOPICAL * Apply 1 application to affect* VITAMIN D3 ORAL Take 600 mg by mouth once felice* COENZYME Q10 100 MG CAPSULE Take 1 capsule by mouth. ONE DAILY MULTI-VITAMIN TABLET Take one(1) tablet daily. CALTRATE-600 PLUS VITAMIN D3 * TAKE TWO TABLETS DAILY. Problem List As Of Date 03/10/2018 Noted Resolved GENERAL OSTEOARTHROSIS [M15.9] DIAPHRAGMATIC HERNIA [K44.9] ASCVD [I25.10] More... 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] INVALID FOR* L-S Radiculopathy [M54.17] INVALID FOR* Thoracic or Lumbosacral Neuritis or Radiculitis*INVALID FOR* Glucose intolerance (pre-diabetes) [R73.03] INVALID FOR*07/04/2014 CAD (coronary artery disease) [I25.10] INVALID FOR* Gout [M10.9] INVALID FOR* AAA (abdominal aortic aneurysm) [I71.4] INVALID FOR* Diabetes mellitus type 2, uncontrolled, without*INVALID FOR* Stented coronary artery [Z95.5] INVALID FOR* Fatigue [R53.83] INVALID FOR* Absolute anemia [D64.9] INVALID FOR* CKD (chronic kidney disease) stage 3, GFR 30-59*INVALID FOR* Diarrhea [R19.7] INVALID FOR* CKD (chronic kidney disease) stage 4, GFR 15-29*INVALID FOR* Coronary artery 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 rich plaqu*INVALID FOR* Low blood potassium [E87.6] INVALID FOR* Uncontrolled type 2 diabetes mellitus without c*INVALID FOR* Encounter Status:Closed by RAMON CERVANTES on 03/10/18 PROGRESS Observed: 03/02/2018 Status: COMPLETED Source: [place] 11:23 AM [facility] REPOSITORY [facility] ID: [id number] Author: Billy Navarro (Rn) Service: (none) Author Type: Registered Nurse Type: Progress Notes Filed: 03/10/2018 12:12 PM Note Text: PRIMARY CARE COORDINATION CHART REVIEW Patient identified for Care Coordination from: [facility] Last PCP office visit: 01/30/18 Next OV: 05/01/18 CHRONIC DX: Htn, CKD, CAD, DM CARE GAPS: Dilated Eye Exam due UTILIZATION WITHIN THE LAST 12 MONTHS: None PRIMARY CARE COORDINATION OUTREACH PLAN: 03/02/18 Call to Pt left a vm 01/30/18 BP 116/60, Hgb A1c 5.8 Ramon Cervantes, RN Ramon Cervantes, RN March 02, 2018 11:28 AM XR ANKLE 3V AP/LAT/OBL Observed: 01/30/2018 Status: F Source: [facility] 1:25 PM [facility] REPOSITORY * * *Final Report* * * DATE OF EXAM: Jan 30 2018 1:25PM WRX [id number] - XR ANKLE 3V AP/LAT/OBL LT / PROCEDURE REASON: Effusion, left ankle * * * * Physician Interpretation * * * * LEFT ankle HISTORY: 77 years old Clinical information: Effusion, left ankle pt states has a lump anterior left ankle for a couple of weeks, was tender but isn't now. no inj TECHNIQUE: Images: XR ANKLE 3V AP/LAT/OBL LT Comparison: None. RESULT: Findings: Moderate narrowing of the tibiotalar joint particularly anteriorly. Large amount soft tissue swelling anterior to this area is seen in the lateral view. Irregularity of the tip of the medial malleolus may be due to trauma age uncertain. There is soft tissue swelling over the medial and lateral malleoli. Moderate size anterior and posterior heel spurs. Moderate narrowing of the intertarsal joints. No fractures or dislocations are seen. Sclerotic density in the distal tibia probably bone island. IMPRESSION: Moderate soft tissue density projecting anterior to the tibial talar joint as seen on the lateral view. Degenerative changes as discussed Irregularity at the tip of the medial malleolus probably due to previous trauma age uncertain. 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: JASON Transcribe Date/Time: Jan 31 2018 3:10P Dictated by : LISA CARREON DO This examination was interpreted and the report reviewed and electronically signed by: LISA CARREON DO on Jan 31 2018 3:12PM EST [id number] PROGRESS Observed: 01/30/2018 Status: COMPLETED Source: [place] 1:15 PM [facility] REPOSITORY HNO ID: [id number] Author: Ramon Law (Rt) Milton Triplett Service: (none) Author Type: Historic Preservationist Type: Progress Notes Filed: 01/30/2018 1:25 PM Note Text: Radiology Service Progress Note PATIENT NAME: Abraham Gage DATE OF SERVICE: January 30, 2018 TIME: 1:15 PM PATIENT IDENTITY VERIFICATION COMPLETED USING TWO (2) METHODS: Patient confirmed name verbally and Date of . PATIENT GENDER DATA: Male PATIENT RELEVANT IMPLANT DATA REVIEWED: Not Applicable RADIOLOGY DEPARTMENT: General X-ray: Exam(s) Completed: Lower Extremity X-Ray(s): Ankle, Left: PERIPHERAL IV DATA: Not applicable SIGNED BY: RT Missy January 30, 2018 1:15 PM CNOV Observed: 01/30/2018 Status: COMPLETED Source: [place] 12:00 PM [facility] REPOSITORY [facility] ABRAHAM GAGE ([id number]) 1940 M Date Time Provider Department 01/30/18 12:00 PM [facility] During your visit today, we recorded the following information about you: Temperature Pulse Respiration Blood pressure 97.2 degrees 76/minute 16/minute 116/60 Weight 75.3 kg Samson Ragsdale DO 01/31/2018 7:07 AM Signed Patient presents with: Follow Up: 3 months HPI: Abraham Gage is a 77 year old male who presents to the office today for review of health conditions. Concerns today: CKD, stage 3-4, was seeing Dr. Quinteros Chucking Lathe Operator, no new medication changes. No edema Glucose (mg/dL) Date Value 01/23/2018 87 Potassium (mmol/L) Date Value 01/23/2018 4.0 Sodium (mmol/L) Date Value 01/23/2018 140 Chloride (mmol/L) Date Value 01/23/2018 98 CO2 (mmol/L) Date Value 01/23/2018 28 Creatinine (mg/dL) Date Value 01/23/2018 1.89 BUN (mg/dL) Date Value 01/23/2018 33 Anion Gap (mmol/L) Date Value 01/23/2018 14 Calcium (mg/dL) Date Value 01/23/2018 9.5 Protein, Total (g/dL) Date Value 01/23/2018 6.1 Albumin (g/dL) Date Value 01/23/2018 3.8 Bilirubin, Total (mg/dL) Date Value 01/23/2018 0.3 Alkaline Phosphatase (U/L) Date Value 01/23/2018 81 AST (U/L) Date Value 01/23/2018 17 ALT (U/L) Date Value 01/23/2018 14 ? 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 Was taking ferrous sulfate 325 mg twice a day Edema, taking Lasix 40 mg a day, edema worse at end of night Left ankle lump/mass, intermittently tender, no redness or drainage, no fevers or chills, no known trauma Hx of prostate CA, very fearful of reoccurrence with bone mets Mr. Gage has past history of diabetes. Since our last visit he denies excessive thirst or increased frequency of urination, chest pain or dyspnea , new or unusual visual symptoms and low sugar/hypoglycemic reactions. Follows a diabetic diet most of the time. He is compliant with medication(s) and is tolerating med(s) without any side effects. He reports checking his glucose on a once a day schedule with sugars in the fasting 90s-130s range. Patient's last HgA1C was Hemoglobin A1C (%) Date Value 01/23/2018 5.8 10/24/2017 5.4 ) Last Ophthalmology exam was within the past 12 months Mr. Gage reports history of hyperlipidemia. Current therapy includes ezetimibe (Zetia) 20 mg. Denies side effects of muscle weakness or achiness. His most recent lipid panels are reviewed. Cholesterol, Total (mg/dL) Date Value 01/23/2018 148 HDL Cholesterol (mg/dL) Date Value 01/23/2018 40 LDL Cholesterol (mg/dL) Date Value 01/23/2018 89 Triglyceride (mg/dL) Date Value 01/23/2018 97 Mr. Gage indicates a history of hypertension and states that he is feeling well and denies any symptoms referable to elevated blood pressure. Specifically denies headache, chest pain, palpitations, dyspnea and peripheral edema. Patient denies any side effects of his medication(s) and is compliant with their regimen. Last 3 Encounter BP Readings: Date: BP: 10/31/2017 150/60 08/03/2017 130/70 07/04/2017 120/76 He watches his diet for sodium, low fat and low cholesterol some of the time. He does not check BP's generally. Abraham gets sporadic irregular exercise. PAST MEDICAL HISTORY Diagnosis Date - Abdominal aneurysm without mention of rupture 09/2015 4.15 cm - Acute gastritis without mention of hemorrhage - AMI (acute myocardial infarction) ([facility]) 07/03/2013 - Carotid atherosclerosis 05/2014 - CKD stage G3b/A2, GFR 30-44 and albumin creatinine ratio 30-299 mg/g ([facility]) AVOID NEPHROTOXIC MEDICATIONS - Diabetes mellitus type 2, uncontrolled, without complications ([facility]) - Diaphragmatic hernia without mention of obstruction or gangrene - Diverticulosis of colon (without mention of hemorrhage) - Generalized osteoarthrosis, unspecified site - Malignant neoplasm of prostate (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 Ojeda - REPAIR ING HERNIA,5+Y/O,REDUCIBL left Hernia repair, inguinal - SCREENING COLONSCOPY NOT HIGH RISK 04/26/2017 Dr. Yousif Triana; next screening colonoscopy in 10yrs Social History Marital status: Spouse name: Colin Years of education: Number of children: 2 Occupational History Occupation Employer Comment [employer]* Social History Main Topics Smoking status: Former Smoker Packs/day: 2.00 Years: 20.00 Types: Cigarettes, Pipe, Cigars Smokeless tobacco: Never Used Comment: quit in 1987 Alcohol use: Yes Comment: rarely Drug use: No FAMILY HISTORY Problem Relation Age of Onset - Hypertension Father - Heart Mother - COPD Father Allergies: ALLERGIES Allergen Reactions - Crestor [Rosuvastat* Other: See Comments Muscle pain - Glucosamine Unknown Nerve pain - Motrin [Ibuprofen] Rash - Pravastatin Other: See Comments muscle aches - [id number]-Itu-Dsf Red* Other: See Comments myalgia Current Meds: insulin glargine (BASAGLAR KWIKPEN U-100 INSULIN) 100 unit/mL (3 mL) inpn Inject 10 Units subcutaneously daily at bedtime. ferrous sulfate (IRON) 325 mg (65 mg iron) tablet Take 325 mg by mouth twice daily. cetirizine HCl (ZYRTEC) 10 mg chewable tablet Take 10 mg by mouth once daily. COMPOUNDED PRESCRIPTION kyloic Cholesterol 104 cholecalciferol (VITAMIN D-3) 5,000 unit tab Take 5,000 Units by mouth twice daily. amLODIPine (NORVASC) 5 mg tablet Take 1 tablet by mouth once daily. ranitidine (ZANTAC) 150 mg tablet Take 1 tablet by mouth daily at bedtime. ezetimibe (ZETIA) 10 mg tablet Take 1 tablet by mouth once daily. blood sugar diagnostic (BLOOD GLUCOSE TEST) test strip Test blood sugar(s) 1 times daily. Dx: Type 2 DM - Uncontrolled E11.65 Insulin: Yes blood sugar diagnostic (BLOOD GLUCOSE TEST) test strip Use once daily to test blood sugar in the morning Insulin Hume, Disposable, (BD ULTRA-FINE BENNY PEN NEEDLES) 32 gauge x 5/32 ndle Use once daily with Lantus as directed Blood-Glucose Meter (FREESTYLE LITE METER) monitoring kit 1 Each as directed. Lancets lancets Use as instructed isosorbide mononitrate ER (IMDUR) 30 mg 24 hr tablet Take 1 tablet by mouth once daily. losartan (COZAAR) 25 mg tablet Take 1 tablet by mouth once daily. furosemide (LASIX) 40 mg tablet Take 1 tablet by mouth once daily. clopidogrel (PLAVIX) 75 mg tablet Take 1 tablet by mouth once daily. diltiazem CD (CARDIZEM CD, CARTIA XT) 120 mg 24 hr capsule Take 1 capsule by mouth once daily. potassium chloride (KLOR-CON 10) 10 mEq tablet Take 1 tablet by mouth once daily. VIT C/VIT E/LUTEIN/MIN/OMEGA-3 (OCUVITE ORAL) Take by mouth. triamcinolone acetonide (KENALOG) 0.1 % cream Apply 1 application to affected area twice daily as needed (rash). Apply sparingly to area for rash/itching. hydrocortisone 2.5 % cream Apply 1 application to affected area twice daily. Location: face CHOLECALCIFEROL, VITAMIN D3, (VITAMIN D3 ORAL) Take 600 mg by mouth once daily. coenzyme Q10 (COQ-10) 100 mg cap Take 1 capsule by mouth. ONE DAILY MULTI-VITAMIN ORAL TAB Take one(1) tablet daily. CALTRATE-600 PLUS VITAMIN D3 600 MG-200 UNIT ORAL TAB TAKE TWO TABLETS DAILY. benzonatate (TESSALON PERLES) 100 mg capsule Take 1 capsule by mouth three times daily as needed for Cough. TRUE METRIX GLUCOSE METER misc 1 Each as directed. metoprolol tartrate, short acting, (LOPRESSOR) 25 mg tablet TAKE 1/2 (ONE-HALF) OF A TABLET BY MOUTH TWICE DAILY KLOR-CON M10 10 mEq tablet Take 10 mEq by mouth once daily. gemfibrozil (LOPID) 600 mg tablet Take 1 tablet by mouth twice daily. COMPOUNDED PRESCRIPTION Nature's way Kidney Bladder COMPOUNDED PRESCRIPTION Nature's Way Garlic Laila Review of Systems: The remainder of the review of systems is negative. PE: 01/30/18 1148 BP: 116/60 Pulse: 76 Resp: 16 Temp: 36.2 ?C (97.2 ?F) TempSrc: Right Tympanic Weight: 75.3 kg (166 lb) Gen: AANDO, NAD, non-toxic appearing, cooperative HEENT: NT/AC, PERRLA, EOMs intact b/l, nares clear and patent b/l, pharynx without erythema, exudate or lesions. Uvula midline. MMM Neck: supple, No cervical LAD, no thyromegaly, no carotid bruits CV: RRR, normal S1S2, 2/6 HSM RUSB murmurs, no gallops, no rubs, Pulses 2+ and symmetric in UE and LE b/l Lungs: normal respiratory effort, CTA b/l, no wheezing or rhonchi or rales Abd: soft, NT, ND, +BS, no hepatosplenomegaly MS: see below Neuro: CN II-XII intact b/l, strength 5/5 b/l UE and LE, DTRs 2/4 UE and LE, sensation intact. Skin: warm, dry, intact, No rashes or lesions on exposed skin. Left ankle anterior localized non tender fluctuant mass without erythema approximately 2 cm in size without drainage or warmth Foot exam: Monofilament normal on right and left feet. ASSESSMENT/PLAN: 1. CKD (chronic kidney disease) stage 4, GFR 15-29 ml/min (HCC) - ICD9: 585.4, ICD10: N18.4 (primary diagnosis) - rx refilled, stable - LOSARTAN 25 MG TABLET 2. Malignant neoplasm of prostate (HCC) - ICD9: 185, ICD10: C61 - recheck labs at next OFFICE VISIT, patient very fearful of this reoccuring or future mets - PSA/PROSTSPECAG DIAG - PROTEIN ELECTROPHORESIS W/INTERP 3. Hypertensive heart disease without heart failure - ICD9: 402.90, ICD10: I11.9 - good control - Continue current medication(s) - Encouraged dietary sodium restriction/DASH diet - Recommended regular aerobic exercise. - Recommend home blood pressure monitoring, to bring results in on next visit - Goal of BP <130/80 - ISOSORBIDE MONONITRATE ER 30 MG TABLET,EXTENDED RELEASE 24 HR 4. Anemia, unspecified type - ICD9: 285.9, ICD10: D64.9 - recheck labs - CBC + DIFF - IRON + TIBC - VITAMIN B12 BLOOD 5. Hypoalbuminemia - ICD9: 273.8, ICD10: E88.09 - recheck labs and check SPEP - PROTEIN ELECTROPHORESIS W/INTERP 6. Uncontrolled diabetes mellitus type 2 without complications, unspecified whether group home insulin use (HCC) - ICD9: 250.02, ICD10: E11.65 Controlled. - Continue current medications - COMP METABOLIC PANEL - HGB A1C 7. Left ankle swelling - ICD9: 719.07, ICD10: M25.472 - xray as ordered, likely sebaceous benign cyst based on exam, f/u with [employer] Gr[employer] if any pain or changes develop - XR ANKLE GENERAL 3V AP/LAT/OBL LT 8. Abdominal aortic aneurysm (AAA) without rupture (HCC) - ICD9: 441.4, ICD10: I71.4 - repeat yearly US - US ABD AORTA COMPLETE VAS LAB Samson Ragsdale DO To ER if develops chest pain, shortness of breath, or severe worsening of symptoms. Discussed risks, benefits, alternatives, and potential side effects of medications. Patient expressed understanding and agreed with the plan. Samson Ragsdale DO [address] [place] [address] Referring Provider: SAMSON RAGSDALE [[id number]] Allergies As of Date: 01/30/2018 Noted Allergy Reaction CRESTOR (ROSUVASTATIN CALCIUM) 04/24/2013 14 - Other: See Comments Comments: Muscle pain GLUCOSAMINE 06/27/2017 16 - Unknown Comments: Nerve pain MOTRIN (IBUPROFEN) 01/19/2006 2 - Rash PRAVASTATIN 02/19/2013 14 - Other: See Comments Comments: muscle aches HKEMACK-EVK-PBA REDUCTASE INHIBIT*10/09/2014 14 - Other: See Comments Comments: myalgia Date Reviewed: 01/30/2018 Reviewed by: Shila Hernández LPN - Fully Assessed Reason for Visit: Follow Up [171] Cmt: 3 months Primary Visit Diagnosis:CKD (chronic kidney disease) stage 4, GFR 15-29 ml/min (HCC) [N18.4] Other Visit Diagnoses:Malignant neoplasm of prostate (HCC) [C61] Hypertensive heart disease without heart failure [I11.9] Anemia, unspecified type [D64.9] Hypoalbuminemia [E88.09] Uncontrolled diabetes mellitus type 2 without complications, unspecified whether exterminator insulin use (HCC) [E11.65] Left ankle swelling [M25.472] Abdominal aortic aneurysm (AAA) without rupture (HCC) [I71.4] Order(s):losartan (COZAAR) 25 mg tabletTake 1 tablet by mouth once daily.Disp: 90 tabletRfl: 3 isosorbide mononitrate ER (IMDUR) 30 mg 24 hr tabletTake 1 tablet by mouth once daily.Disp: 90 tabletRfl: 3 PSA/PROSTSPECAG DIAG [SQPSA] Order #: [id number] FUTURE CBC + DIFF [SQCBCDIF] Order #: [id number] FUTURE IRON + TIBC [SQIRON] Order #: [id number] FUTURE VITAMIN B12 BLOOD [SQB12] Order #: [id number] FUTURE COMP METABOLIC PANEL [SQCMP] Order #: [id number] FUTURE HGB A1C [DYFCX6G] Order #: [id number] FUTURE PROTEIN ELECTROPHORESIS W/INTERP [SQSEPG] Order #: [id number] FUTURE XR ANKLE GENERAL 3V AP/LAT/OBL LT [[id number]] Order #: [id number] FUTURE US ABD AORTA COMPLETE VAS LAB [[id number]] Order #: [id number] FUTURE Prescriptions as of 01/30/2018 Sig: INSULIN GLARGINE (U-100) 100 * Inject 10 Units subcutaneousl* FERROUS SULFATE 325 MG (65 MG* Take 325 mg by mouth twice da* CETIRIZINE 10 MG CHEWABLE TAB* Take 10 mg by mouth once marvin* COMPOUNDED PRESCRIPTION kyloic Cholesterol 104 CHOLECALCIFEROL (VITAMIN D3) * Take 5,000 Units by mouth twi* AMLODIPINE 5 MG TABLET Take 1 tablet by mouth once d* RANITIDINE 150 MG TABLET Take 1 tablet by mouth daily * EZETIMIBE 10 MG TABLET Take 1 tablet by mouth once d* BLOOD SUGAR DIAGNOSTIC STRIPS Test blood sugar(s) 1 times d* BLOOD SUGAR DIAGNOSTIC STRIPS Use once daily to test blood * PEN NEEDLE, DIABETIC 32 GAUGE* Use once daily with Lantus as* BLOOD-GLUCOSE METER KIT 1 Each as directed. LANCETS Use as instructed FUROSEMIDE 40 MG TABLET Take 1 tablet by mouth once d* CLOPIDOGREL 75 MG TABLET Take 1 tablet by mouth once d* DILTIAZEM SR 120 MG 24 HR CAP Take 1 capsule by mouth once * POTASSIUM CHLORIDE ER 10 MEQ * Take 1 tablet by mouth once d* OCUVITE ORAL Take by mouth. TRIAMCINOLONE ACETONIDE 0.1 %* Apply 1 application to affect* HYDROCORTISONE 2.5 % TOPICAL * Apply 1 application to affect* VITAMIN D3 ORAL Take 600 mg by mouth once felice* COENZYME Q10 100 MG CAPSULE Take 1 capsule by mouth. ONE DAILY MULTI-VITAMIN TABLET Take one(1) tablet daily. CALTRATE-600 PLUS VITAMIN D3 * TAKE TWO TABLETS DAILY. LOSARTAN 25 MG TABLET Take 1 tablet by mouth once d* ISOSORBIDE MONONITRATE ER 30 * Take 1 tablet by mouth once d* BENZONATATE 100 MG CAPSULE Take 1 capsule by mouth three* TRUE METRIX GLUCOSE METER 1 Each as directed. METOPROLOL TARTRATE 25 MG TAB* TAKE 1/2 (ONE-HALF) OF A TABL* KLOR-CON M10 MEQ TABLET,EXTEN* Take 10 mEq by mouth once felice* GEMFIBROZIL 600 MG TABLET Take 1 tablet by mouth twice * COMPOUNDED PRESCRIPTION Nature's way Kidney Bladder COMPOUNDED PRESCRIPTION Nature's Way Garlic [facility] Problem List As Of Date 01/30/2018 Noted Resolved GENERAL OSTEOARTHROSIS [M15.9] DIAPHRAGMATIC HERNIA [K44.9] ASCVD [I25.10] More... 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] INVALID FOR* L-S Radiculopathy [M54.17] INVALID FOR* Thoracic or Lumbosacral Neuritis or Radiculitis*INVALID FOR* Glucose intolerance (pre-diabetes) [R73.03] INVALID FOR*07/04/2014 CAD (coronary artery disease) [I25.10] INVALID FOR* Gout [M10.9] INVALID FOR* AAA (abdominal aortic aneurysm) [I71.4] INVALID FOR* Diabetes mellitus type 2, uncontrolled, without*INVALID FOR* Stented coronary artery [Z95.5] INVALID FOR* Fatigue [R53.83] INVALID FOR* Absolute anemia [D64.9] INVALID FOR* CKD (chronic kidney disease) stage 3, GFR 30-59*INVALID FOR* Diarrhea [R19.7] INVALID FOR* CKD (chronic kidney disease) stage 4, GFR 15-29*INVALID FOR* Coronary artery 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 rich plaqu*INVALID FOR* Low blood potassium [E87.6] INVALID FOR* Uncontrolled type 2 diabetes mellitus without c*INVALID FOR* Prescriptions ordered this encounter Disp Refills Start End LOSARTAN 25 MG TABLET 90 t* 3 01/30/2018 Route: ORAL Sig: Take 1 tablet by mouth once daily. ISOSORBIDE MONONITRATE ER 30 MG TABL* 90 t* 3 01/30/2018 Route: ORAL Sig: Take 1 tablet by mouth once daily. Medications Discontinued During This Encounter losartan (COZAAR) 25 mg tablet 90 t* 3 04/19/2017 01/30/2018 Route: ORAL Sig: Take 1 tablet by mouth once daily. Disc: Reason for discontinue is not on file. isosorbide mononitrate ER (IMDUR) 30* 90 t* 3 04/19/2017 01/30/2018 Route: ORAL Sig: Take 1 tablet by mouth once daily. Disc: Reason for discontinue is not on file. Encounter Status:Closed by SAMSON RAGSDALE DO on 01/31/18 PROGRESS Observed: 01/30/2018 Status: COMPLETED Source: [place] 11:54 AM [facility] REPOSITORY O ID: [id number] Author: Samson Ragsdale Service: (none) Author Type: Physician Type: Progress Notes Filed: 01/31/2018 7:07 AM Note Text: Patient presents with: Follow Up: 3 months HPI: Abraham Gage is a 77 year old male who presents to the office today for review of health conditions. Concerns today: CKD, stage 3-4, was seeing Dr. Quinteros Chucking Lathe Operator, no new medication changes. No edema Glucose (mg/dL) Date Value 01/23/2018 87 Potassium (mmol/L) Date Value 01/23/2018 4.0 Sodium (mmol/L) Date Value 01/23/2018 140 Chloride (mmol/L) Date Value 01/23/2018 98 CO2 (mmol/L) Date Value 01/23/2018 28 Creatinine (mg/dL) Date Value 01/23/2018 1.89 BUN (mg/dL) Date Value 01/23/2018 33 Anion Gap (mmol/L) Date Value 01/23/2018 14 Calcium (mg/dL) Date Value 01/23/2018 9.5 Protein, Total (g/dL) Date Value 01/23/2018 6.1 Albumin (g/dL) Date Value 01/23/2018 3.8 Bilirubin, Total (mg/dL) Date Value 01/23/2018 0.3 Alkaline Phosphatase (U/L) Date Value 01/23/2018 81 AST (U/L) Date Value 01/23/2018 17 ALT (U/L) Date Value 01/23/2018 14 ? 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 Was taking ferrous sulfate 325 mg twice a day Edema, taking Lasix 40 mg a day, edema worse at end of night Left ankle lump/mass, intermittently tender, no redness or drainage, no fevers or chills, no known trauma Hx of prostate CA, very fearful of reoccurrence with bone mets Mr. Gage has past history of diabetes. Since our last visit he denies excessive thirst or increased frequency of urination, chest pain or dyspnea , new or unusual visual symptoms and low sugar/hypoglycemic reactions. Follows a diabetic diet most of the time. He is compliant with medication(s) and is tolerating med(s) without any side effects. He reports checking his glucose on a once a day schedule with sugars in the fasting 90s-130s range. Patient's last HgA1C was Hemoglobin A1C (%) Date Value 01/23/2018 5.8 10/24/2017 5.4 ) Last Ophthalmology exam was within the past 12 months Mr. Gage reports history of hyperlipidemia. Current therapy includes ezetimibe (Zetia) 20 mg. Denies side effects of muscle weakness or achiness. His most recent lipid panels are reviewed. Cholesterol, Total (mg/dL) Date Value 01/23/2018 148 HDL Cholesterol (mg/dL) Date Value 01/23/2018 40 LDL Cholesterol (mg/dL) Date Value 01/23/2018 89 Triglyceride (mg/dL) Date Value 01/23/2018 97 Mr. Gage indicates a history of hypertension and states that he is feeling well and denies any symptoms referable to elevated blood pressure. Specifically denies headache, chest pain, palpitations, dyspnea and peripheral edema. Patient denies any side effects of his medication(s) and is compliant with their regimen. Last 3 Encounter BP Readings: Date: BP: 10/31/2017 150/60 08/03/2017 130/70 07/04/2017 120/76 He watches his diet for sodium, low fat and low cholesterol some of the time. He does not check BP's generally. Abraham gets sporadic irregular exercise. PAST MEDICAL HISTORY Diagnosis Date - Abdominal aneurysm without mention of rupture 09/2015 4.15 cm - Acute gastritis without mention of hemorrhage - AMI (acute myocardial infarction) ([facility]) 07/03/2013 - Carotid atherosclerosis 05/2014 - CKD stage G3b/A2, GFR 30-44 and albumin creatinine ratio 30-299 mg/g ([facility]) AVOID NEPHROTOXIC MEDICATIONS - Diabetes mellitus type 2, uncontrolled, without complications ([facility]) - Diaphragmatic hernia without mention of obstruction or gangrene - Diverticulosis of colon (without mention of hemorrhage) - Generalized osteoarthrosis, unspecified site - Malignant neoplasm of prostate (HCC) - Other and unspecified hyperlipidemia - Unspecified cardiovascular disease 1994 CABG - Unspecified constipation - Unspecified hypertensive heart disease without heart failure PAST SURGICAL HISTORY Procedure Laterality Date - BYPASS GRAFT OTHR,CAROTID Carotid Endarectomy right - CABG, ARTERY-VEIN, SINGLE 1994 CABG, single graft, Lupe Dr. Harris - COLONOSCOP W/ OR W/O BRSH SPEC 07/10/07 - EGD 04/26/2017 - EGD W/O BRSH SPECIMEN W/BX 07/10/07 - OPEN CORONARY ENDARTERECTOMY 07/03/2013 Angioplasty Xience stent to L circumflex - PAST SURGICAL HISTORY OF 01/26/08 stent placement ramus and prox ramus - REMV PROSTATE,PERINEAL,RADICAL 2000 Prostatectomy, radical- Dr. Ojeda - REPAIR ING HERNIA,5+Y/O,REDUCIBL left Hernia repair, inguinal - SCREENING COLONSCOPY NOT HIGH RISK 04/26/2017 Dr. Yousif Triana; next screening colonoscopy in 10yrs Social History Marital status: Spouse name: Colin Years of education: Number of children: 2 Occupational History Occupation Employer Comment [employer] Social History Main Topics Smoking status: Former Smoker Packs/day: 2.00 Years: 20.00 Types: Cigarettes, Pipe, Cigars Smokeless tobacco: Never Used Comment: quit in 1987 Alcohol use: Yes Comment: rarely Drug use: No FAMILY HISTORY Problem Relation Age of Onset - Hypertension Father - Heart Mother - COPD Father Allergies: ALLERGIES Allergen Reactions - Crestor [Rosuvastat* Other: See Comments Muscle pain - Glucosamine Unknown Nerve pain - Motrin [Ibuprofen] Rash - Pravastatin Other: See Comments muscle aches - Nkbewex-Gwm-Xna Red* Other: See Comments myalgia Current Meds: insulin glargine (BASAGLAR KWIKPEN U-100 INSULIN) 100 unit/mL (3 mL) inpn Inject 10 Units subcutaneously daily at bedtime. ferrous sulfate (IRON) 325 mg (65 mg iron) tablet Take 325 mg by mouth twice daily. cetirizine HCl (ZYRTEC) 10 mg chewable tablet Take 10 mg by mouth once daily. COMPOUNDED PRESCRIPTION kyloic Cholesterol 104 cholecalciferol (VITAMIN D-3) 5,000 unit tab Take 5,000 Units by mouth twice daily. amLODIPine (NORVASC) 5 mg tablet Take 1 tablet by mouth once daily. ranitidine (ZANTAC) 150 mg tablet Take 1 tablet by mouth daily at bedtime. ezetimibe (ZETIA) 10 mg tablet Take 1 tablet by mouth once daily. blood sugar diagnostic (BLOOD GLUCOSE TEST) test strip Test blood sugar(s) 1 times daily. Dx: Type 2 DM - Uncontrolled E11.65 Insulin: Yes blood sugar diagnostic (BLOOD GLUCOSE TEST) test strip Use once daily to test blood sugar in the morning Insulin Hume, Disposable, (BD ULTRA-FINE BENNY PEN NEEDLES) 32 gauge x 5/32 ndle Use once daily with Lantus as directed Blood-Glucose Meter (FREESTYLE LITE METER) monitoring kit 1 Each as directed. Lancets lancets Use as instructed isosorbide mononitrate ER (IMDUR) 30 mg 24 hr tablet Take 1 tablet by mouth once daily. losartan (COZAAR) 25 mg tablet Take 1 tablet by mouth once daily. furosemide (LASIX) 40 mg tablet Take 1 tablet by mouth once daily. clopidogrel (PLAVIX) 75 mg tablet Take 1 tablet by mouth once daily. diltiazem CD (CARDIZEM CD, CARTIA XT) 120 mg 24 hr capsule Take 1 capsule by mouth once daily. potassium chloride (KLOR-CON 10) 10 mEq tablet Take 1 tablet by mouth once daily. VIT C/VIT E/LUTEIN/MIN/OMEGA-3 (OCUVITE ORAL) Take by mouth. triamcinolone acetonide (KENALOG) 0.1 % cream Apply 1 application to affected area twice daily as needed (rash). Apply sparingly to area for rash/itching. hydrocortisone 2.5 % cream Apply 1 application to affected area twice daily. Location: face CHOLECALCIFEROL, VITAMIN D3, (VITAMIN D3 ORAL) Take 600 mg by mouth once daily. coenzyme Q10 (COQ-10) 100 mg cap Take 1 capsule by mouth. ONE DAILY MULTI-VITAMIN ORAL TAB Take one(1) tablet daily. CALTRATE-600 PLUS VITAMIN D3 600 MG-200 UNIT ORAL TAB TAKE TWO TABLETS DAILY. benzonatate (TESSALON PERLES) 100 mg capsule Take 1 capsule by mouth three times daily as needed for Cough. TRUE METRIX GLUCOSE METER misc 1 Each as directed. metoprolol tartrate, short acting, (LOPRESSOR) 25 mg tablet TAKE 1/2 (ONE-HALF) OF A TABLET BY MOUTH TWICE DAILY KLOR-CON M10 10 mEq tablet Take 10 mEq by mouth once daily. gemfibrozil (LOPID) 600 mg tablet Take 1 tablet by mouth twice daily. COMPOUNDED PRESCRIPTION Nature's way Kidney Bladder COMPOUNDED PRESCRIPTION Nature's Way Garlic Laila Review of Systems: The remainder of the review of systems is negative. PE: 01/30/18 1148 BP: 116/60 Pulse: 76 Resp: 16 Temp: 36.2 ?C (97.2 ?F) TempSrc: Right Tympanic Weight: 75.3 kg (166 lb) Gen: AANDO, NAD, non-toxic appearing, cooperative HEENT: NT/AC, PERRLA, EOMs intact b/l, nares clear and patent b/l, pharynx without erythema, exudate or lesions. Uvula midline. MMM Neck: supple, No cervical LAD, no thyromegaly, no carotid bruits CV: RRR, normal S1S2, 2/6 HSM RUSB murmurs, no gallops, no rubs, Pulses 2+ and symmetric in UE and LE b/l Lungs: normal respiratory effort, CTA b/l, no wheezing or rhonchi or rales Abd: soft, NT, ND, +BS, no hepatosplenomegaly MS: see below Neuro: CN II-XII intact b/l, strength 5/5 b/l UE and LE, DTRs 2/4 UE and LE, sensation intact. Skin: warm, dry, intact, No rashes or lesions on exposed skin. Left ankle anterior localized non tender fluctuant mass without erythema approximately 2 cm in size without drainage or warmth Foot exam: Monofilament normal on right and left feet. ASSESSMENT/PLAN: 1. CKD (chronic kidney disease) stage 4, GFR 15-29 ml/min (HCC) - ICD9: 585.4, ICD10: N18.4 (primary diagnosis) - rx refilled, stable - LOSARTAN 25 MG TABLET 2. Malignant neoplasm of prostate (HCC) - ICD9: 185, ICD10: C61 - recheck labs at next OFFICE VISIT, patient very fearful of this reoccuring or future mets - PSA/PROSTSPECAG DIAG - PROTEIN ELECTROPHORESIS W/INTERP 3. Hypertensive heart disease without heart failure - ICD9: 402.90, ICD10: I11.9 - good control - Continue current medication(s) - Encouraged dietary sodium restriction/DASH diet - Recommended regular aerobic exercise. - Recommend home blood pressure monitoring, to bring results in on next visit - Goal of BP <130/80 - ISOSORBIDE MONONITRATE ER 30 MG TABLET,EXTENDED RELEASE 24 HR 4. Anemia, unspecified type - ICD9: 285.9, ICD10: D64.9 - recheck labs - CBC + DIFF - IRON + TIBC - VITAMIN B12 BLOOD 5. Hypoalbuminemia - ICD9: 273.8, ICD10: E88.09 - recheck labs and check SPEP - PROTEIN ELECTROPHORESIS W/INTERP 6. Uncontrolled diabetes mellitus type 2 without complications, unspecified whether group home insulin use (HCC) - ICD9: 250.02, ICD10: E11.65 Controlled. - Continue current medications - COMP METABOLIC PANEL - HGB A1C 7. Left ankle swelling - ICD9: 719.07, ICD10: M25.472 - xray as ordered, likely sebaceous benign cyst based on exam, f/u with Christmas Tree Grader if any pain or changes develop - XR ANKLE GENERAL 3V AP/LAT/OBL LT 8. Abdominal aortic aneurysm (AAA) without rupture (HCC) - ICD9: 441.4, ICD10: I71.4 - repeat yearly US - US ABD AORTA COMPLETE VAS LAB Samson Ragsdale DO To ER if develops chest pain, shortness of breath, or severe worsening of symptoms. Discussed risks, benefits, alternatives, and potential side effects of medications. Patient expressed understanding and agreed with the plan. Samson Ragsdale DO [address] [place] [address] ALBUMIN/CREAT RATIO Collected: 01/23/2018 Status: F Source: [place] 12:37 PM [facility] REPOSITORY TYPE CODE TESTS RESULT OUT OF REFERENCE UNITS RANGE LAB UCRR 20-300 mg/dL 108.8 Creatinine,Ur ine,Ran LAB UALBR 0.0-23.0 mg/L <12.0 Albumin Urine Random LAB UALBCR 0-30 mg/g Not Albumin/Creat calculated Ratio Performed By: #### UACR #### [facility] [address] [place], [place] [address] COMP METABOLIC PANEL Collected: 01/23/2018 Status: F Source: [place] 12:16 PM [facility] REPOSITORY TYPE CODE TESTS RESULT OUT OF REFERENCE UNITS RANGE LAB TP 6.3-8.0 g/dL Low Protein, Total 6.1 LAB ALB 3.9-4.9 g/dL Low Albumin 3.8 LAB CA 8.5-10.2 mg/dL Calcium, Total 9.5 LAB TBIL 0.2-1.3 mg/dL Bilirubin, Total 0.3 LAB ALKP 36-108 U/L Alkaline Phosphatase 81 LAB AST 14-40 U/L AST 17 LAB GLU 74-99 mg/dL Glucose 87 Result Comment: The English Diabetes Association (ADA) provides guidance for cutoff values for fasting glucose and random glucose. The ADA defines fasting as no caloric intake for at least 8 hours. Fas ting plasma glucose results between 100 to 125 mg/dL indicate increased risk for diabetes (prediabetes). Fasting plasma glucose results greater than or equal to 126 mg/dL meet the criteria for diagnosis of diabetes. In the absence of unequivocal hyperglycemia, results should be confirmed by repeat testing. In a patient with classic symptoms of hyperglycemia or hyperglycemic crisis, random plasma glucose results greater than or equal to 200 mg/dL meet the criteria for diagnosis of diabetes. Reference: Standards of Medical Care in Diabetes 2016, English Diabetes Association. Diabetes Care. 2016.39(Suppl 1). LAB BUN 9-24 mg/dL BUN High 33 LAB CRET 0.73-1.22 mg/dL Creatinine High 1.89 LAB NA 136-144 mmol/L Sodium 140 LAB K 3.7-5.1 mmol/L Potassium 4.0 LAB CL 97-105 mmol/L Chloride 98 LAB CO2 22-30 mmol/L CO2 28 LAB AGAP 9-18 mmol/L Anion Gap 14 LAB ALT 10-54 U/L ALT 14 LAB GFRAA eGFR- Amer. 42 LAB GFRNAA . eGFR-All Other Races 35 Result Comment: eGFR (Estimated GFR) Units of measure: mL/min/1.73 meters squared eGFR is derived from the reexpressed MDRD Study equation using the following parameters: serum creatinine, age, gender and race. The creatinine assay has been calibrated to be traceable to IDMS. An eGFR <60 mL/min/1.73m2 for >3 months is consistent with chronic kidney disease. Refer to KDOQI guidelines for clinical interpretation. In patients with unstable renal function, e.g. those with acute kidney injury, the eGFR may not accurately reflect actual GFR. Performed By: #### CMP, LIPB, HBA1C #### [facility] [address] [place], [place] [address] LIPID PANEL, BASIC Collected: 01/23/2018 Status: F Source: [place] 12:16 PM [facility] REPOSITORY TYPE CODE TESTS RESULT OUT OF REFERENCE UNITS RANGE LAB CHOL <200 mg/dL Cholesterol 148 Result Comment: <200 mg/dL, Desirable 200-239 mg/dL, Borderline high >239 mg/dL, High LAB TRIGLY <150 mg/dL Triglyceride 97 Result Comment: <150 mg/dL, Normal 150-199 mg/dL, Borderline high 200-499 mg/dL, High >499 mg/dL, Very high LAB HDL >39 mg/dL HDL-Cholesterol 40 Result Comment: 40-59 mg/dL, Acceptable >59 mg/dL, High: Negative risk factor for coronary heart disease <40 mg/dL, Low: Positive risk factor for coronary heart disease LAB LDL <100 mg/dL LDL-Cholesterol 89 Result Comment: <100 mg/dL, Optimal 100-129 mg/dL, Near optimal/above optimal 130-159 mg/dL, Borderline high 160-189 mg/dL, High >189 mg/dL, Very high Secondary prevention optimal LDL Cholesterol levels are recommended to be < 70 mg/dL LAB NONHDL <130 mg/dL Non HDL Cholesterol 108 Result Comment: <130 mg/dL, Optimal 130-159 mg/dL, Near optimal/above optimal 160-189 mg/dL, Borderline high 190-219 mg/dL, High >219 mg/dL, Very high Secondary prevention optimal non HDL Cholesterol levels are recommended to be < 100 mg/dL LAB FT hrs Fasting Time 12 LAB VLDL <30 mg/dL VLDL Cholesterol 19 LAB TCHDL <5.10 TC:HDL Ratio 3.70 LAB LDLHDL <2.54 LDL:HDL Ratio 2.23 Result Comment: Reference: 1. National Cholesterol Education Program ATP III Guideline At-A-Glance Quick Desk Reference: National Heart, Lung, and Blood [place]. National Institutes of Health. 2001: NIH Publication No. 01-3305. 2. An International Atherosclerosis Society position paper: global recommendations for the management of dyslipidemia: executive summary, Atherosclerosis. 2014: 232(2):410-413. Performed By: #### CMP, LIPB, HBA1C #### [facility] [address] [place], [place] [address] HEMOGLOBIN A1C Collected: 01/23/2018 Status: F Source: [place] 12:16 PM [facility] REPOSITORY TYPE CODE TESTS RESULT OUT OF REFERENCE UNITS RANGE LAB HGBA1C 4.3-5.6 % High Hemoglobin A1c 5.8 LAB HBA0 mg/dL Est. Average Glucose 120 Result Comment: eAG: (Estimated average glucose) is a calculated value from HgbA1c and is guest relations representative of the average blood glucose level in the last 2-3 month period. Performed By: #### CMP, LIPB, HBA1C #### [facility] [address] [place], [place] [address] CNPTOUTREACH Observed: 01/17/2018 Status: COMPLETED Source: [place] 12:00 AM [facility] REPOSITORY Patient Outreach (INT[facility]) ABRAHAM GAGE ([id number]) 1940 M Date Time Provider Department 01/17/18 SAMSON RAGSDALE IN[facility] During your visit today, we recorded the following information about you: Ramon Cervantes, JOAQUIN 03/10/2018 12:12 PM Signed PRIMARY CARE COORDINATION CHART REVIEW Patient identified for Care Coordination from: [facility] High Risk Registry Last PCP office visit: 01/30/18 Next OV: 05/01/18 CHRONIC DX: Htn, CKD, CAD, DM CARE GAPS: Dilated Eye Exam due UTILIZATION WITHIN THE LAST 12 MONTHS: None PRIMARY CARE COORDINATION OUTREACH PLAN: 03/02/18 Call to Pt philippe a 01/30/18 BP 116/60, Hgb A1c 5.8 Ramon Cervantes, RN Ramon Cervantes, RN March 02, 2018 11:28 AM Allergies As of Date: 01/17/2018 Noted Allergy Reaction CRESTOR (ROSUVASTATIN CALCIUM) 04/24/2013 14 - Other: See Comments Comments: Muscle pain GLUCOSAMINE 06/27/2017 16 - Unknown Comments: Nerve pain MOTRIN (IBUPROFEN) 01/19/2006 2 - Rash PRAVASTATIN 02/19/2013 14 - Other: See Comments Comments: muscle aches DLUSBOI-MMP-WXS REDUCTASE INHIBIT*10/09/2014 14 - Other: See Comments Comments: myalgia Date Reviewed: 10/31/2017 Reviewed by: Shila Hernández LPN - Fully Assessed 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 Chronic Care [3612] Cmt: [facility] HRR Visit Diagnosis:Medication management [Z79.899] Order(s):ALBUMIN/CREAT RATIO RND UR [SQUACR] Order #: [id number] FUTURE Prescriptions as of 01/17/2018 Sig: INSULIN GLARGINE (U-100) 100 * Inject 10 Units subcutaneousl* FERROUS SULFATE 325 MG (65 MG* Take 325 mg by mouth twice da* CETIRIZINE 10 MG CHEWABLE TAB* Take 10 mg by mouth once marvin* COMPOUNDED PRESCRIPTION kyloic Cholesterol 104 CHOLECALCIFEROL (VITAMIN D3) * Take 5,000 Units by mouth twi* AMLODIPINE 5 MG TABLET Take 1 tablet by mouth once d* RANITIDINE 150 MG TABLET Take 1 tablet by mouth daily * EZETIMIBE 10 MG TABLET Take 1 tablet by mouth once d* BENZONATATE 100 MG CAPSULE Take 1 capsule by mouth three* BLOOD SUGAR DIAGNOSTIC STRIPS Test blood sugar(s) 1 times d* BLOOD SUGAR DIAGNOSTIC STRIPS Use once daily to test blood * TRUE METRIX GLUCOSE METER 1 Each as directed. X PREDNISONE 10 MG TABLET Take 1 tablet by mouth once d* METOPROLOL TARTRATE 25 MG TAB* TAKE 1/2 (ONE-HALF) OF A TABL* KLOR-CON M10 MEQ TABLET,EXTEN* Take 10 mEq by mouth once felice* PEN NEEDLE, DIABETIC 32 GAUGE* Use once daily with Lantus as* BLOOD-GLUCOSE METER KIT 1 Each as directed. LANCETS Use as instructed GEMFIBROZIL 600 MG TABLET Take 1 tablet by mouth twice * FUROSEMIDE 40 MG TABLET Take 1 tablet by mouth once d* CLOPIDOGREL 75 MG TABLET Take 1 tablet by mouth once d* POTASSIUM CHLORIDE ER 10 MEQ * Take 1 tablet by mouth once d* X ISOSORBIDE MONONITRATE ER 30 * Take 1 tablet by mouth once d* X LOSARTAN 25 MG TABLET Take 1 tablet by mouth once d* X DILTIAZEM SR 120 MG 24 HR CAP Take 1 capsule by mouth once * OCUVITE ORAL Take by mouth. COMPOUNDED PRESCRIPTION Nature's way Kidney Bladder COMPOUNDED PRESCRIPTION Nature's Way Garlic [place] TRIAMCINOLONE ACETONIDE 0.1 %* Apply 1 application to affect* HYDROCORTISONE 2.5 % TOPICAL * Apply 1 application to affect* VITAMIN D3 ORAL Take 600 mg by mouth once felice* COENZYME Q10 100 MG CAPSULE Take 1 capsule by mouth. ONE DAILY MULTI-VITAMIN TABLET Take one(1) tablet daily. CALTRATE-600 PLUS VITAMIN D3 * TAKE TWO TABLETS DAILY. Problem List As Of Date 01/17/2018 Noted Resolved GENERAL OSTEOARTHROSIS [M15.9] DIAPHRAGMATIC HERNIA [K44.9] ASCVD [I25.10] More... 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] HYPERTEN HEART DIS W/O HRT FAIL [I11.9] ABDOM AORTIC ANEURYSM [I71.4] TENOSYNOV HAND/WRIST NEC [M65.849, M65.839] INVALID FOR* CARPAL TUNNEL SYNDROME [G56.00] INVALID FOR* BENIGN HYPERTENSION [I10] INVALID FOR* CONSTIPATION NOS [K59.00] INVALID FOR* STOMACH FUNCTION DIS NEC [K31.89, R10.13] INVALID FOR* ACUTE GASTRITIS W/O HEMORRHAGE [K29.00] INVALID FOR* Impaired fasting glucose [R73.01] INVALID FOR*07/04/2014 Carotid Art Occ w/o Infarc [I65.29] INVALID FOR* L-S Radiculopathy [M54.17] INVALID FOR* Thoracic or Lumbosacral Neuritis or Radiculitis*INVALID FOR* Glucose intolerance (pre-diabetes) [R73.03] INVALID FOR*07/04/2014 CAD (coronary artery disease) [I25.10] INVALID FOR* Gout [M10.9] INVALID FOR* AAA (abdominal aortic aneurysm) [I71.4] INVALID FOR* Diabetes mellitus type 2, uncontrolled, without*INVALID FOR* Stented coronary artery [Z95.5] INVALID FOR* Fatigue [R53.83] INVALID FOR* Absolute anemia [D64.9] INVALID FOR* CKD (chronic kidney disease) stage 3, GFR 30-59*INVALID FOR* Diarrhea [R19.7] INVALID FOR* CKD (chronic kidney disease) stage 4, GFR 15-29*INVALID FOR* Coronary artery 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 rich plaqu*INVALID FOR* Low blood potassium [E87.6] INVALID FOR* Uncontrolled type 2 diabetes mellitus without c*INVALID FOR* Disposition: Return in about 4 weeks (around 02/14/2018). Follow-up and Disposition History Recorded Encounter Status:Closed by RAMON CERVANTES on 03/10/18 STRESS TEST ECHO W/O Observed: 11/09/2017 Status: F Source: [place] CONTRAST 2:15 PM [facility] REPOSITORY [facility] [address] [place] [address] [place] [address] Stress Test Echo w/o Contrast MR#: [id number] Acct: [id number] Name: ABRAHAM GAGE Rep #: [id number] : 1940 77 From: Rich Sanchez MD Primary Care: Samson Bowens DO Status: REG CLI Ordering Dr: Rich Sanchez MD Sex: M C Reason For Study: Dyspnea Stress Results Protocol: Modified Scooby Protocol Maximum Predicted HR: 144 bpm Target HR: 122 bpm% Maximum Pred icted HR: 97 % Heart Stage Duration Rate BPCom ment (mm:ss) (bpm) Baseline 73 136/70 Modified Scooby Protocol Stage 0 3:00 11 7 162/74No Chest Pain Modified Scooby Protocol Stage 1/2 3:00 13 4 150/76Mild Dyspnea Moderate Dyspnea, Knee Pain, No Chest Modified Scooby Protocol Stage 1 1:00 13 9 / Pain Recovery 85 134/68 Stress Duration: 7:00 mm:ss Maximum Stress HR: 139 bpmM ETS: 4 Baseline Echocardiogram Findings The estimated ejection fraction is 60 %. Stress Echo Wall motion Data Resting WMIntermediate WMStress WM Wall Motion Stress No regional wall motion abnormalities noted. EKG Data Normal intervals are noted. Interpretation Summary The estimated ejection fraction is 60 %. Normal, adequate, modified Scooby treadmill echocardiogram. Negative for ischemia by EKG and echocardiographic criteria. No anginal symptoms noted. No arrhythmias noted. Appropriate blood pressure response to exercise. Average exercise capacity for age. Average exercise capacity for age. Final LVEF is 75%. Test terminated due to knee pain. 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 Concerns today: CKD, stage 3-4, was seeing Dr. Quinteros Chucking Lathe Operator, no new medication changes. 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 Was taking ferrous sulfate 325 mg twice a day. Mr. Gage has past history of diabetes. Since our last visit he denies excessive thirst or increased frequency of urination, chest pain or dyspnea , new or unusual visual symptoms and low sugar/hypoglycemic reactions. Depression- no. Follows a diabetic diet most of the time. He is compliant with medication(s) and is tolerating med(s) without any side effects. He reports checking his glucose on a once a day schedule with sugars in the fasting 90s-130s range. Patient's last HgA1C was Hemoglobin A1C (%) Date Value 10/24/2017 5.4 06/27/2017 12.1 03/07/2017 7.2 ) Last Ophthalmology exam was within the past 12 months Mr. Gage reports history of hyperlipidemia. Current therapy includes ezetimibe (Zetia) 20 mg. Denies side effects of muscle weakness or achiness. His most recent lipid panels are reviewed. Cholesterol, Total (mg/dL) Date Value 10/24/2017 157 HDL Cholesterol (mg/dL) Date Value 10/24/2017 47 LDL Cholesterol (mg/dL) Date Value 10/24/2017 94 Triglyceride (mg/dL) Date Value 10/24/2017 79 Mr. Gage indicates a history of hypertension and states that he is having dyspnea with exertion and denies any symptoms referable to elevated blood pressure. Specifically denies headache, chest pain, palpitations and peripheral edema. Patient denies any side effects of his medication(s) and is compliant with their regimen. Last 3 Encounter BP Readings: Date: BP: 10/31/2017 150/60 08/03/2017 130/70 07/04/2017 120/76 He watches his diet for sodium, low fat and low cholesterol some of the time. He does not check BP's generally. Abraham gets minimal exercise. PAST MEDICAL HISTORY Diagnosis Date - Abdominal aneurysm without mention of rupture 09/2015 4.15 cm - Acute gastritis without mention of hemorrhage - AMI (acute myocardial infarction) (HCC) 07/03/2013 - Carotid atherosclerosis 05/2014 - CKD stage G3b/A2, GFR 30-44 and albumin creatinine ratio 30-299 mg/g AVOID NEPHROTOXIC MEDICATIONS - Diabetes mellitus type 2, uncontrolled, without complications (HCC) - Diaphragmatic hernia without mention of obstruction or gangrene - Diverticulosis of colon (without mention of hemorrhage) - Generalized osteoarthrosis, unspecified site - Malignant neoplasm of prostate (HCC) - Other and unspecified hyperlipidemia - Unspecified cardiovascular disease 1994 CABG - Unspecified constipation - 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 Ojeda - REPAIR ING HERNIA,5+Y/O,REDUCIBL left Hernia repair, inguinal - SCREENING COLONSCOPY NOT HIGH RISK 04/26/2017 Dr. Yousif Triana; next screening colonoscopy in 10yrs Social History Marital status: Spouse name: Colin Years of education: Number of children: 2 Occupational History Occupation Employer Comment [employer]* Social History Main Topics Smoking status: Former Smoker Packs/day: 2.00 Years: 20.00 Types: Cigarettes, Pipe, Cigars Smokeless status: Never Used Comment: quit in 1987 Alcohol use: Yes Comment: rarely Drug use: No FAMILY HISTORY Problem Relation Age of Onset - Hypertension Father - Heart Mother - COPD Father Allergies: ALLERGIES Allergen Reactions - Crestor [Rosuvastat* Other: See Comments Muscle pain - Glucosamine Unknown Nerve pain - Motrin [Ibuprofen] Rash - Pravastatin Other: See Comments muscle aches - Uwlsabp-Qlf-Bna Red* Other: See Comments myalgia Current Meds: ezetimibe (ZETIA) 10 mg tablet Take 10 mg by mouth once daily. ferrous sulfate (IRON) 325 mg (65 mg iron) tablet Take 325 mg by mouth twice daily. cetirizine HCl (ZYRTEC) 10 mg chewable tablet Take 10 mg by mouth once daily. COMPOUNDED PRESCRIPTION kyloic Cholesterol 104 cholecalciferol (VITAMIN D-3) 5,000 unit tab Take 5,000 Units by mouth twice daily. blood sugar diagnostic (BLOOD GLUCOSE TEST) test strip Test blood sugar(s) 1 times daily. Dx: Type 2 DM - Uncontrolled E11.65 Insulin: Yes ranitidine (ZANTAC) 150 mg tablet TAKE 1 TABLET AT BEDTIME amLODIPine (NORVASC) 5 mg tablet TAKE 1 TABLET BY MOUTH EVERY DAY blood sugar diagnostic (BLOOD GLUCOSE TEST) test strip Use once daily to test blood sugar in the morning insulin glargine (LANTUS SOLOSTAR) 100 unit/mL (3 mL) inpn Inject 12 Units subcutaneously every evneing Insulin Hume, Disposable, (BD ULTRA-FINE BENNY PEN NEEDLES) 32 gauge x 5/32 ndle Use once daily with Lantus as directed Blood-Glucose Meter (FREESTYLE LITE METER) monitoring kit 1 Each as directed. Lancets lancets Use as instructed isosorbide mononitrate ER (IMDUR) 30 mg 24 hr tablet Take 1 tablet by mouth once daily. losartan (COZAAR) 25 mg tablet Take 1 tablet by mouth once daily. furosemide (LASIX) 40 mg tablet Take 1 tablet by mouth once daily. clopidogrel (PLAVIX) 75 mg tablet Take 1 tablet by mouth once daily. diltiazem CD (CARDIZEM CD, CARTIA XT) 120 mg 24 hr capsule Take 1 capsule by mouth once daily. potassium chloride (KLOR-CON 10) 10 mEq tablet Take 1 tablet by mouth once daily. VIT C/VIT E/LUTEIN/MIN/OMEGA-3 (OCUVITE ORAL) Take by mouth. HYDROcodone-acetaminophen (NORCO) 5-325 mg per tablet Take 1 tablet by mouth every 6 hours as needed for Pain. triamcinolone acetonide (KENALOG) 0.1 % cream Apply 1 application to affected area twice daily as needed (rash). Apply sparingly to area for rash/itching. hydrocortisone 2.5 % cream Apply 1 application to affected area twice daily. Location: face CHOLECALCIFEROL, VITAMIN D3, (VITAMIN D3 ORAL) Take 600 mg by mouth once daily. coenzyme Q10 (COQ-10) 100 mg cap Take 1 capsule by mouth. ONE DAILY MULTI-VITAMIN ORAL TAB Take one(1) tablet daily. CALTRATE-600 PLUS VITAMIN D3 600 MG-200 UNIT ORAL TAB TAKE TWO TABLETS DAILY. benzonatate (TESSALON PERLES) 100 mg capsule Take 1 capsule by mouth three times daily as needed for Cough. TRUE METRIX GLUCOSE METER misc 1 Each as directed. metoprolol tartrate, short acting, (LOPRESSOR) 25 mg tablet TAKE 1/2 (ONE-HALF) OF A TABLET BY MOUTH TWICE DAILY KLOR-CON M10 10 mEq tablet Take 10 mEq by mouth once daily. gemfibrozil (LOPID) 600 mg tablet Take 1 tablet by mouth twice daily. COMPOUNDED PRESCRIPTION Nature's way Kidney Bladder COMPOUNDED PRESCRIPTION Nature's Way Garlic Laila Review of Systems: The remainder of the review of systems is negative. PE: 10/31/17 1230 BP: 150/60 Pulse: 72 Resp: 20 Temp: (!) 35.9 ?C (96.6 ?F) TempSrc: Left Tympanic Weight: 79.4 kg (175 lb) Gen: AANDO, NAD, non-toxic appearing, Pleasant, appears fatigued, cooperative HEENT: NT/AC, PERRLA, EOMs intact b/l, nares clear and patent b/l, pharynx without erythema, exudate or lesions. Uvula midline. MMM, EACs without erythema or debris. TMs pearly walker with intact landmarks b/l. Neck: supple, No cervical LAD, no thyromegaly, no carotid bruits CV: RRR, normal S1S2, 2/6 HSM RUSB murmurs, no gallops, no rubs, Pulses 2+ and symmetric in UE and LE b/l Lungs: normal respiratory effort, CTA b/l, no wheezing or rhonchi or rales Abd: soft, overweight, NT, ND, +BS, no hepatosplenomegaly MS: FROM all 4 extremities Neuro: CN II-XII intact b/l, strength 5/5 b/l UE and LE, DTRs 2/4 UE and LE, sensation intact. Skin: warm, dry, intact, No rashes or lesions on exposed skin. ASSESSMENT/PLAN: 1. Essential hypertension, benign - ICD9: 401.1, ICD10: I10 (primary diagnosis) - good control - Continue current medication(s) - Encouraged dietary sodium restriction/DASH diet - Recommended regular aerobic exercise. - Recommend home blood pressure monitoring, to bring results in on next visit - Goal of BP <130/80 - AMLODIPINE 5 MG TABLET - RANITIDINE 150 MG TABLET 2. Abdominal aortic aneurysm (AAA) without rupture (HCC) - ICD9: 441.4, ICD10: I71.4 - rx refilled, taking generic, tolerating without SE - EZETIMIBE 10 MG TABLET 3. Coronary artery 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 rich plaque - ICD9: 414.00, 414.3, ICD10: I25.10, I25.83 - rx refilled, taking generic, tolerating without SE - EZETIMIBE 10 MG TABLET 4. Stented coronary artery - ICD9: V45.82, ICD10: Z95.5 - rx refilled, taking generic, tolerating without SE - EZETIMIBE 10 MG TABLET 5. Statin intolerance - ICD9: 995.27, ICD10: Z78.9 - rx refilled, taking generic, tolerating without SE - EZETIMIBE 10 MG TABLET 6. Uncontrolled type 2 diabetes mellitus without complication, with long-term current use of insulin ([facility]) - ICD9: 250.02, V58.67, ICD10: E11.65, Z79.4 Controlled. - Decrease Lantus 10 QPM - Blood glucose monitoring on a once a day schedule - INSULIN GLARGINE (U-100) 100 UNIT/ML (3 ML) SUBCUTANEOUS PEN Samson Ragsdale DO To ER if develops chest pain, shortness of breath, or severe worsening of symptoms. Discussed risks, benefits, alternatives, and potential side effects of medications. Patient expressed understanding and agreed with the plan. Samson Ragsdale DO [address] [place] [address] CNOV Observed: 10/31/2017 Status: COMPLETED Source: [place] 12:40 PM [facility] REPOSITORY Office Visit (FAMPWS) ABRAHAM GAGE ([id number]) 1940 M Date Time Provider Department 10/31/17 12:40 PM SAMSON RAGSDALE During your visit today, we recorded the following information about you: Temperature Pulse Respiration Blood pressure 96.6 degrees 72/minute 20/minute 150/60 Weight 79.4 kg Samson Ragsdale DO 10/31/2017 2:00 PM Signed Patient presents with: Follow Up: 3 months HPI: Abraham Gage is a 77 year old male who presents to the office today for review of health conditions. Concerns today: CKD, stage 3-4, was seeing Dr. Quinteros Chucking Lathe Operator, no new medication changes. 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 Was taking ferrous sulfate 325 mg twice a day. Mr. Gage has past history of diabetes. Since our last visit he denies excessive thirst or increased frequency of urination, chest pain or dyspnea , new or unusual visual symptoms and low sugar/hypoglycemic reactions. Depression- no. Follows a diabetic diet most of the time. He is compliant with medication(s) and is tolerating med(s) without any side effects. He reports checking his glucose on a once a day schedule with sugars in the fasting 90s-130s range. Patient's last HgA1C was Hemoglobin A1C (%) Date Value 10/24/2017 5.4 06/27/2017 12.1 03/07/2017 7.2 ) Last Ophthalmology exam was within the past 12 months Mr. Gage reports history of hyperlipidemia. Current therapy includes ezetimibe (Zetia) 20 mg. Denies side effects of muscle weakness or achiness. His most recent lipid panels are reviewed. Cholesterol, Total (mg/dL) Date Value 10/24/2017 157 HDL Cholesterol (mg/dL) Date Value 10/24/2017 47 LDL Cholesterol (mg/dL) Date Value 10/24/2017 94 Triglyceride (mg/dL) Date Value 10/24/2017 79 Mr. Gage indicates a history of hypertension and states that he is having dyspnea with exertion and denies any symptoms referable to elevated blood pressure. Specifically denies headache, chest pain, palpitations and peripheral edema. Patient denies any side effects of his medication(s) and is compliant with their regimen. Last 3 Encounter BP Readings: Date: BP: 10/31/2017 150/60 08/03/2017 130/70 07/04/2017 120/76 He watches his diet for sodium, low fat and low cholesterol some of the time. He does not check BP's generally. Abraham gets minimal exercise. PAST MEDICAL HISTORY Diagnosis Date - Abdominal aneurysm without mention of rupture 09/2015 4.15 cm - Acute gastritis without mention of hemorrhage - AMI (acute myocardial infarction) (HCC) 07/03/2013 - Carotid atherosclerosis 05/2014 - CKD stage G3b/A2, GFR 30-44 and albumin creatinine ratio 30-299 mg/g AVOID NEPHROTOXIC MEDICATIONS - Diabetes mellitus type 2, uncontrolled, without complications (HCC) - Diaphragmatic hernia without mention of obstruction or gangrene - Diverticulosis of colon (without mention of hemorrhage) - Generalized osteoarthrosis, unspecified site - Malignant neoplasm of prostate (HCC) - Other and unspecified hyperlipidemia - Unspecified cardiovascular disease 1994 CABG - Unspecified constipation - 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 Ojeda - REPAIR ING HERNIA,5+Y/O,REDUCIBL left Hernia repair, inguinal - SCREENING COLONSCOPY NOT HIGH RISK 04/26/2017 Dr. Yousif Triana; next screening colonoscopy in 10yrs Social History Marital status: Spouse name: Colin Years of education: Number of children: 2 Occupational History Occupation Employer Comment [employer]* Social History Main Topics Smoking status: Former Smoker Packs/day: 2.00 Years: 20.00 Types: Cigarettes, Pipe, Cigars Smokeless status: Never Used Comment: quit in 1987 Alcohol use: Yes Comment: rarely Drug use: No FAMILY HISTORY Problem Relation Age of Onset - Hypertension Father - Heart Mother - COPD Father Allergies: ALLERGIES Allergen Reactions - Crestor [Rosuvastat* Other: See Comments Muscle pain - Glucosamine Unknown Nerve pain - Motrin [Ibuprofen] Rash - Pravastatin Other: See Comments muscle aches - Meuyvfd-Sms-Ddx Red* Other: See Comments myalgia Current Meds: ezetimibe (ZETIA) 10 mg tablet Take 10 mg by mouth once daily. ferrous sulfate (IRON) 325 mg (65 mg iron) tablet Take 325 mg by mouth twice daily. cetirizine HCl (ZYRTEC) 10 mg chewable tablet Take 10 mg by mouth once daily. COMPOUNDED PRESCRIPTION kyloic Cholesterol 104 cholecalciferol (VITAMIN D-3) 5,000 unit tab Take 5,000 Units by mouth twice daily. blood sugar diagnostic (BLOOD GLUCOSE TEST) test strip Test blood sugar(s) 1 times daily. Dx: Type 2 DM - Uncontrolled E11.65 Insulin: Yes ranitidine (ZANTAC) 150 mg tablet TAKE 1 TABLET AT BEDTIME amLODIPine (NORVASC) 5 mg tablet TAKE 1 TABLET BY MOUTH EVERY DAY blood sugar diagnostic (BLOOD GLUCOSE TEST) test strip Use once daily to test blood sugar in the morning insulin glargine (LANTUS SOLOSTAR) 100 unit/mL (3 mL) inpn Inject 12 Units subcutaneously every evneing Insulin Hume, Disposable, (BD ULTRA-FINE BENNY PEN NEEDLES) 32 gauge x 5/32ANDquot; ndle Use once daily with Lantus as directed Blood-Glucose Meter (FREESTYLE LITE METER) monitoring kit 1 Each as directed. Lancets lancets Use as instructed isosorbide mononitrate ER (IMDUR) 30 mg 24 hr tablet Take 1 tablet by mouth once daily. losartan (COZAAR) 25 mg tablet Take 1 tablet by mouth once daily. furosemide (LASIX) 40 mg tablet Take 1 tablet by mouth once daily. clopidogrel (PLAVIX) 75 mg tablet Take 1 tablet by mouth once daily. diltiazem CD (CARDIZEM CD, CARTIA XT) 120 mg 24 hr capsule Take 1 capsule by mouth once daily. potassium chloride (KLOR-CON 10) 10 mEq tablet Take 1 tablet by mouth once daily. VIT C/VIT E/LUTEIN/MIN/OMEGA-3 (OCUVITE ORAL) Take by mouth. HYDROcodone-acetaminophen (NORCO) 5-325 mg per tablet Take 1 tablet by mouth every 6 hours as needed for Pain. triamcinolone acetonide (KENALOG) 0.1 % cream Apply 1 application to affected area twice daily as needed (rash). Apply sparingly to area for rash/itching. hydrocortisone 2.5 % cream Apply 1 application to affected area twice daily. Location: face CHOLECALCIFEROL, VITAMIN D3, (VITAMIN D3 ORAL) Take 600 mg by mouth once daily. coenzyme Q10 (COQ-10) 100 mg cap Take 1 capsule by mouth. ONE DAILY MULTI-VITAMIN ORAL TAB Take one(1) tablet daily. CALTRATE-600 PLUS VITAMIN D3 600 MG-200 UNIT ORAL TAB TAKE TWO TABLETS DAILY. benzonatate (TESSALON PERLES) 100 mg capsule Take 1 capsule by mouth three times daily as needed for Cough. TRUE METRIX GLUCOSE METER misc 1 Each as directed. metoprolol tartrate, short acting, (LOPRESSOR) 25 mg tablet TAKE 1/2 (ONE-HALF) OF A TABLET BY MOUTH TWICE DAILY KLOR-CON M10 10 mEq tablet Take 10 mEq by mouth once daily. gemfibrozil (LOPID) 600 mg tablet Take 1 tablet by mouth twice daily. COMPOUNDED PRESCRIPTION Nature's way Kidney Bladder COMPOUNDED PRESCRIPTION Nature's Way Garlic Laila Review of Systems: The remainder of the review of systems is negative. PE: 10/31/17 1230 BP: 150/60 Pulse: 72 Resp: 20 Temp: (!) 35.9 ?C (96.6 ?F) TempSrc: Left Tympanic Weight: 79.4 kg (175 lb) Gen: AANDamp;O, NAD, non-toxic appearing, Pleasant, appears fatigued, cooperative HEENT: NT/AC, PERRLA, EOMs intact b/l, nares clear and patent b/l, pharynx without erythema, exudate or lesions. Uvula midline. MMM, EACs without erythema or debris. TMs pearly walker with intact landmarks b/l. Neck: supple, No cervical LAD, no thyromegaly, no carotid bruits CV: RRR, normal S1S2, 2/6 HSM RUSB murmurs, no gallops, no rubs, Pulses 2+ and symmetric in UE and LE b/l Lungs: normal respiratory effort, CTA b/l, no wheezing or rhonchi or rales Abd: soft, overweight, NT, ND, +BS, no hepatosplenomegaly MS: FROM all 4 extremities Neuro: CN II-XII intact b/l, strength 5/5 b/l UE and LE, DTRs 2/4 UE and LE, sensation intact. Skin: warm, dry, intact, No rashes or lesions on exposed skin. ASSESSMENT/PLAN: 1. Essential hypertension, benign - ICD9: 401.1, ICD10: I10 (primary diagnosis) - good control - Continue current medication(s) - Encouraged dietary sodium restriction/DASH diet - Recommended regular aerobic exercise. - Recommend home blood pressure monitoring, to bring results in on next visit - Goal of BP ANDlt;130/80 - AMLODIPINE 5 MG TABLET - RANITIDINE 150 MG TABLET 2. Abdominal aortic aneurysm (AAA) without rupture (HCC) - ICD9: 441.4, ICD10: I71.4 - rx refilled, taking generic, tolerating without SE - EZETIMIBE 10 MG TABLET 3. Coronary artery 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 rich plaque - ICD9: 414.00, 414.3, ICD10: I25.10, I25.83 - rx refilled, taking generic, tolerating without SE - EZETIMIBE 10 MG TABLET 4. Stented coronary artery - ICD9: V45.82, ICD10: Z95.5 - rx refilled, taking generic, tolerating without SE - EZETIMIBE 10 MG TABLET 5. Statin intolerance - ICD9: 995.27, ICD10: Z78.9 - rx refilled, taking generic, tolerating without SE - EZETIMIBE 10 MG TABLET 6. Uncontrolled type 2 diabetes mellitus without complication, with long-term current use of insulin ([facility]) - ICD9: 250.02, V58.67, ICD10: E11.65, Z79.4 Controlled. - Decrease Lantus 10 QPM - Blood glucose monitoring on a once a day schedule - INSULIN GLARGINE (U-100) 100 UNIT/ML (3 ML) SUBCUTANEOUS PEN Samson Ragsdale DO To ER if develops chest pain, shortness of breath, or severe worsening of symptoms. Discussed risks, benefits, alternatives, and potential side effects of medications. Patient expressed understanding and agreed with the plan. Samson Ragsdale DO [address] [place] [address] Samson Ragsdale DO 10/31/2017 1:20 PM Signed Change the iron supplement from the ferrous sulfate to the Slo Fe iron supplement (65 mg) twice a day If insurance isn't going to cover the Zetia 90 day supply generic then let me know and I will do a prior approval Referring Provider: SAMSON RAGSDALE [[id number]] Allergies As of Date: 10/31/2017 Noted Allergy Reaction CRESTOR (ROSUVASTATIN CALCIUM) 04/24/2013 14 - Other: See Comments Comments: Muscle pain GLUCOSAMINE 06/27/2017 16 - Unknown Comments: Nerve pain MOTRIN (IBUPROFEN) 01/19/2006 2 - Rash PRAVASTATIN 02/19/2013 14 - Other: See Comments Comments: muscle aches [id number] REDUCTASE INHIBIT*10/09/2014 14 - Other: See Comments Comments: myalgia Date Reviewed: 10/31/2017 Reviewed by: Shila Hernández LPN - Fully Assessed Reason for Visit: Follow Up [171] Cmt: 3 months Primary Visit Diagnosis:Essential hypertension, benign [I10] Other Visit Diagnoses:Abdominal aortic aneurysm (AAA) without rupture (HCC) [I71.4] Coronary artery 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 rich plaque [I25.10, I25.83] Stented coronary artery [Z95.5] Statin intolerance [Z78.9] Uncontrolled type 2 diabetes mellitus without complication, with long-term current use of insulin (HCC) [E11.65, Z79.4] Order(s):amLODIPine (NORVASC) 5 mg tabletTake 1 tablet by mouth once daily.Disp: 90 tabletRfl: 3 ranitidine (ZANTAC) 150 mg tabletTake 1 tablet by mouth daily at bedtime.Disp: 90 tabletRfl: 3 ezetimibe (ZETIA) 10 mg tabletTake 1 tablet by mouth once daily.Disp: 90 tabletRfl: 3 insulin glargine (LANTUS SOLOSTAR U-100 INSULIN) 100 unit/mL (3 mL) inpnInject 10 Units subcutaneously every evneingDisp: 5 PenRfl: 3 Prescriptions as of 10/31/2017 Sig: FERROUS SULFATE 325 MG (65 MG* Take 325 mg by mouth twice da* CETIRIZINE 10 MG CHEWABLE TAB* Take 10 mg by mouth once marvin* COMPOUNDED PRESCRIPTION kyloic Cholesterol 104 CHOLECALCIFEROL (VITAMIN D3) * Take 5,000 Units by mouth twi* AMLODIPINE 5 MG TABLET Take 1 tablet by mouth once d* RANITIDINE 150 MG TABLET Take 1 tablet by mouth daily * EZETIMIBE 10 MG TABLET Take 1 tablet by mouth once d* INSULIN GLARGINE (U-100) 100 * Inject 10 Units subcutaneousl* BLOOD SUGAR DIAGNOSTIC STRIPS Test blood sugar(s) 1 times d* BLOOD SUGAR DIAGNOSTIC STRIPS Use once daily to test blood * PEN NEEDLE, DIABETIC 32 GAUGE* Use once daily with Lantus as* BLOOD-GLUCOSE METER KIT 1 Each as directed. LANCETS Use as instructed ISOSORBIDE MONONITRATE ER 30 * Take 1 tablet by mouth once d* LOSARTAN 25 MG TABLET Take 1 tablet by mouth once d* FUROSEMIDE 40 MG TABLET Take 1 tablet by mouth once d* CLOPIDOGREL 75 MG TABLET Take 1 tablet by mouth once d* DILTIAZEM SR 120 MG 24 HR CAP Take 1 capsule by mouth once * POTASSIUM CHLORIDE ER 10 MEQ * Take 1 tablet by mouth once d* OCUVITE ORAL Take by mouth. HYDROCODONE 5 MG-ACETAMINOPHE* Take 1 tablet by mouth every * TRIAMCINOLONE ACETONIDE 0.1 %* Apply 1 application to affect* HYDROCORTISONE 2.5 % TOPICAL * Apply 1 application to affect* VITAMIN D3 ORAL Take 600 mg by mouth once felice* COENZYME Q10 100 MG CAPSULE Take 1 capsule by mouth. ONE DAILY MULTI-VITAMIN TABLET Take one(1) tablet daily. CALTRATE-600 PLUS VITAMIN D3 * TAKE TWO TABLETS DAILY. BENZONATATE 100 MG CAPSULE Take 1 capsule by mouth three* TRUE METRIX GLUCOSE METER 1 Each as directed. METOPROLOL TARTRATE 25 MG TAB* TAKE 1/2 (ONE-HALF) OF A TABL* KLOR-CON M10 MEQ TABLET,EXTEN* Take 10 mEq by mouth once felice* GEMFIBROZIL 600 MG TABLET Take 1 tablet by mouth twice * COMPOUNDED PRESCRIPTION Nature's way Kidney Bladder COMPOUNDED PRESCRIPTION Nature[facility] Way Garlic Parsley Medication notes this encounter COMPOUNDED PRESCRIPTION >> Shila Hernández LPN 10/31/2017 12:36 PM >> SHILA HERNÁNDEZ LPN TueOct 31, 2017 12:36 PM Finished COMPOUNDED PRESCRIPTION >> Shila Hernández LPN 10/31/2017 12:36 PM >> SHILA HERNÁNDEZ LPN Mon Oct 31, 2017 12:36 PM Finished Problem List As Of Date 10/31/2017 Noted Resolved GENERAL OSTEOARTHROSIS [M15.9] DIAPHRAGMATIC HERNIA [K44.9] ASCVD [I25.10] More... 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] HYPERTEN HEART DIS W/O HRT FAIL [I11.9] ABDOM AORTIC ANEURYSM [I71.4] TENOSYNOV HAND/WRIST NEC [M65.849, M65.839] INVALID FOR* CARPAL TUNNEL SYNDROME [G56.00] INVALID FOR* BENIGN HYPERTENSION [I10] INVALID FOR* CONSTIPATION NOS [K59.00] INVALID FOR* STOMACH FUNCTION DIS NEC [K31.89, R10.13] INVALID FOR* ACUTE GASTRITIS W/O HEMORRHAGE [K29.00] INVALID FOR* Impaired fasting glucose [R73.01] INVALID FOR*07/04/2014 Carotid Art Occ w/o Infarc [I65.29] INVALID FOR* L-S Radiculopathy [M54.17] INVALID FOR* Thoracic or Lumbosacral Neuritis or Radiculitis*INVALID FOR* Glucose intolerance (pre-diabetes) [R73.03] INVALID FOR*07/04/2014 CAD (coronary artery disease) [I25.10] INVALID FOR* Gout [M10.9] INVALID FOR* AAA (abdominal aortic aneurysm) [I71.4] INVALID FOR* Diabetes mellitus type 2, uncontrolled, without*INVALID FOR* Stented coronary artery [Z95.5] INVALID FOR* Fatigue [R53.83] INVALID FOR* Absolute anemia [D64.9] INVALID FOR* CKD (chronic kidney disease) stage 3, GFR 30-59*INVALID FOR* Diarrhea [R19.7] INVALID FOR* CKD (chronic kidney disease) stage 4, GFR 15-29*INVALID FOR* Coronary artery 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 rich plaqu*INVALID FOR* Low blood potassium [E87.6] INVALID FOR* Uncontrolled type 2 diabetes mellitus without c*INVALID FOR* Other instructions from your clinician: Change the iron supplement from the ferrous sulfate to the Slo Fe iron supplement (65 mg) twice a day If insurance isn't going to cover the Zetia 90 day supply generic then let me know and I will do a prior approval Prescriptions ordered this encounter Disp Refills Start End AMLODIPINE 5 MG TABLET 90 t* 3 10/31/2017 Route: ORAL Sig: Take 1 tablet by mouth once daily. RANITIDINE 150 MG TABLET 90 t* 3 10/31/2017 Route: ORAL Sig: Take 1 tablet by mouth daily at bedtime. EZETIMIBE 10 MG TABLET 90 t* 3 10/31/2017 Route: ORAL Sig: Take 1 tablet by mouth once daily. INSULIN GLARGINE (U-100) 100 UNIT/ML* 5 Pen 3 10/31/2017 Sig: Inject 10 Units subcutaneously every evneing Medications Discontinued During This Encounter amLODIPine (NORVASC) 5 mg tablet 90 t* 0 08/22/2017 10/31/2017 Cmt: Med-sync patient. If too soon, we will put new RX on hold for next cycle. Sig: TAKE 1 TABLET BY MOUTH EVERY DAY Disc: Reason for discontinue is not on file. ranitidine (ZANTAC) 150 mg tablet 90 t* 0 08/22/2017 10/31/2017 Cmt: Med-sync patient. If too soon, we will put new RX on hold for next cycle. Sig: TAKE 1 TABLET AT BEDTIME Disc: Reason for discontinue is not on file. ezetimibe (ZETIA) 10 mg tablet 10/31/2017 Class: Historical Med Route: ORAL Sig: Take 10 mg by mouth once daily. Disc: Reason for discontinue is not on file. insulin glargine (LANTUS SOLOSTAR) 1* 0 07/20/2017 10/31/2017 Class: Med Update Sig: Inject 12 Units subcutaneously every evneing Disc: Reason for discontinue is not on file. Encounter Status:Closed by SAMSON RAGSDALE DO on 10/31/17 CBC Collected: 10/24/2017 Status: F Source: [place] 12:59 PM [facility] REPOSITORY TYPE CODE TESTS RESULT OUT OF REFERENCE UNITS RANGE LAB WBC 3.70-11.00 k/uL WBC 9.36 LAB RBC 4.20-6.00 m/uL Low RBC 3.78 LAB HGB 13.0-17.0 g/dL Low Hemoglobin 9.4 LAB HCT 39.0-51.0 % Low Hematocrit 32.9 LAB MCV 80.0-100.0 fL MCV 87.0 LAB MCH 26.0-34.0 pG Low MCH 24.9 LAB MCHC 30.5-36.0 g/dL Low MCHC 28.6 LAB RDWCV 11.5-15.0 % RDW-CV High 17.8 LAB PLTCT 150-400 k/uL Platelet High Count 474 LAB MPV 9.0-12.7 fL MPV 9.2 LAB ABSNUC <0.01 k/uL Absolute nRBC <0.01 Performed By: #### CBC, CMP, LIPB, PSAS1, HBA1C #### [facility] [address] [place], [place] [address] COMP METABOLIC PANEL Collected: 10/24/2017 Status: F Source: [place] 12:59 PM [facility] REPOSITORY TYPE CODE TESTS RESULT OUT OF REFERENCE UNITS RANGE LAB TP 6.3-8.0 g/dL Protein, Total 7.2 LAB ALB 3.9-4.9 g/dL Albumin 4.1 LAB CA 8.5-10.2 mg/dL Calcium, Total 9.3 LAB TBIL 0.2-1.3 mg/dL Low Bilirubin, Total <0.2 LAB ALKP 36-108 U/L Alkaline Phosphatase 76 LAB AST 14-40 U/L AST 19 LAB GLU 74-99 mg/dL Glucose High 104 Result Comment: The English Diabetes Association (ADA) provides guidance for cutoff values for fasting glucose and random glucose. The ADA defines fasting as no caloric intake for at least 8 hours. Fas ting plasma glucose results between 100 to 125 mg/dL indicate increased risk for diabetes (prediabetes). Fasting plasma glucose results greater than or equal to 126 mg/dL meet the criteria for diagnosis of diabetes. In the absence of unequivocal hyperglycemia, results should be confirmed by repeat testing. In a patient with classic symptoms of hyperglycemia or hyperglycemic crisis, random plasma glucose results greater than or equal to 200 mg/dL meet the criteria for diagnosis of diabetes. Reference: Standards of Medical Care in Diabetes 2016, English Diabetes Association. Diabetes Care. 2016.39(Suppl 1). LAB BUN 9-24 mg/dL BUN High 35 LAB CRET 0.73-1.22 mg/dL Creatinine High 1.95 LAB NA 136-144 mmol/L Sodium 141 LAB K 3.7-5.1 mmol/L Potassium 3.9 LAB CL 97-105 mmol/L Chloride 100 LAB CO2 22-30 mmol/L CO2 26 LAB AGAP 9-18 mmol/L Anion Gap 15 LAB ALT 10-54 U/L Low ALT 9 LAB GFRAA eGFR- Amer. 41 LAB GFRNAA . eGFR-All Other Races 34 Result Comment: eGFR (Estimated GFR) Units of measure: mL/min/1.73 meters squared eGFR is derived from the reexpressed MDRD Study equation using the following parameters: serum creatinine, age, gender and race. The creatinine assay has been calibrated to be traceable to IDMS. An eGFR <60 mL/min/1.73m2 for >3 months is consistent with chronic kidney disease. Refer to KDOQI guidelines for clinical interpretation. In patients with unstable renal function, e.g. those with acute kidney injury, the eGFR may not accurately reflect actual GFR. Performed By: #### CBC, CMP, LIPB, PSAS1, HBA1C #### [facility] [address] [place], [place] [address] LIPID PANEL, BASIC Collected: 10/24/2017 Status: F Source: [place] 12:59 PM [facility] REPOSITORY TYPE CODE TESTS RESULT OUT OF REFERENCE UNITS RANGE LAB CHOL <200 mg/dL Cholesterol 157 Result Comment: <200 mg/dL, Desirable 200-239 mg/dL, Borderline high >239 mg/dL, High LAB TRIGLY <150 mg/dL Triglyceride 79 Result Comment: <150 mg/dL, Normal 150-199 mg/dL, Borderline high 200-499 mg/dL, High >499 mg/dL, Very high LAB HDL >39 mg/dL HDL-Cholesterol 47 Result Comment: 40-59 mg/dL, Acceptable >59 mg/dL, High: Negative risk factor for coronary heart disease <40 mg/dL, Low: Positive risk factor for coronary heart disease LAB LDL <100 mg/dL LDL-Cholesterol 94 Result Comment: <100 mg/dL, Optimal 100-129 mg/dL, Near optimal/above optimal 130-159 mg/dL, Borderline high 160-189 mg/dL, High >189 mg/dL, Very high Secondary prevention optimal LDL Cholesterol levels are recommended to be < 70 mg/dL LAB NONHDL <130 mg/dL Non HDL Cholesterol 110 Result Comment: <130 mg/dL, Optimal 130-159 mg/dL, Near optimal/above optimal 160-189 mg/dL, Borderline high 190-219 mg/dL, High >219 mg/dL, Very high Secondary prevention optimal non HDL Cholesterol levels are recommended to be < 100 mg/dL LAB FT hrs Fasting Time 12 LAB VLDL <30 mg/dL VLDL Cholesterol 16 LAB TCHDL <5.10 TC:HDL Ratio 3.34 LAB LDLHDL <2.54 LDL:HDL Ratio 2.00 Result Comment: Reference: 1. National Cholesterol Education Program ATP III Guideline At-A-Glance Quick Desk Reference: National Heart, Lung, and Blood [place]. National Institutes of Health. 2001: NIH Publication No. 01-3305. 2. An International Atherosclerosis Society position paper: global recommendations for the management of dyslipidemia: executive summary, Atherosclerosis. 2014: 232(2):410-413. Performed By: #### CBC, CMP, LIPB, PSAS1, HBA1C #### [facility] [address] [place], [place] [address] PSA, SCREENING Collected: 10/24/2017 Status: F Source: [place] 12:59 PM [facility] REPOSITORY TYPE CODE TESTS RESULT OUT OF REFERENCE UNITS RANGE LAB PSAS 0.00-2.59 ng/mL PSA, Screening 0.03 Result Comment: Total PSA test methodology used is the Electrochemiluminescence Immunoassay. Performed By: #### CBC, CMP, LIPB, PSAS1, HBA1C #### [facility] [address] [place], [place] [address] HEMOGLOBIN A1C Collected: 10/24/2017 Status: F Source: [place] 12:59 PM [facility] REPOSITORY TYPE CODE TESTS RESULT OUT OF REFERENCE UNITS RANGE LAB HGBA1C 4.3-5.6 % Hemoglobin A1c 5.4 LAB HBA0 mg/dL Est. Average Glucose 108 Result Comment: eAG: (Estimated average glucose) is a calculated value from HgbA1c and is guest relations representative of the average blood glucose level in the last 2-3 month period. Performed By: #### CBC, CMP, LIPB, PSAS1, HBA1C #### [facility] [address] [place], [place] [address] CARDIOLOGY VISIT Observed: 10/18/2017 Status: F Source: [place] REPORT 10:40 AM [facility] REPOSITORY [facility] [address] [place] [address]. [address] [place] [address] OFFICE VISIT Date of Service: 10/18/17 MR#: [id number] Acct: [id number] Name: ABRAHAM GAGE Rep #: [id number] : 1940 Provider: Rich Sanchez MD Age/Sex: 77/M Location: [facility] Status: Signed HPI HPI Chief Complaint: Routine f/u Details: PCP: Dr. Samson Ragsdale This is 77-year-old male who presents for cardiovascular outpatient follow-up. He has history of coronary artery disease status post bypass surgery with a CASTILLO to LAD and previous stents. His history of hypertension, hyperlipidemia, AAA, and end- stage renal disease. In November 2016 he presented to [facility] with STEMI. He underwent PCI to his proximal and distal RCA. He required temporary pacing due to complete heart block. Heart cath from November 2016 showed double vessel coronary disease of the LAD and distal RCA, acute IN due to occlusion of RCA with successful drug-eluting stent to proximal and distal RCA, right heart pressures normal, and large infrarenal sacular AAA with no thrombus. Patient had a stress echocardiogram on March 23, 2017. During the stress test his ECG revealed ST depression. Repeat catheterization demonstrated possible significant left circumflex stenosis and he underwent drug-eluting stent to the left circumflex on 03/30/17. Since that time the patient hasfelt much better,but still complains of fatigue, dyspnea on exertion, and is unable to participate in cardiac rehab. He is a 78-iskh-gyod smoking history who quit in 1986. Echocardiogram from November 2016 showed estimated ejection fraction of 45-50%, akinetic infero-basel basal segment, mildly hypokinetic mid inferior segment mild global hypokinesis of left ventricle, trivial mitral valve insufficiency, mild tricuspid valve insufficiency, and RVSP of 29 mmHg. Patient denies any exertional anginal symptoms, and underwent an EGD which showed some mild irritation and was placed on Pepcid therapy as well as iron replacement. Despite this, the patient complains of dyspnea on exertion, and appears pale today. He had labs drawn this morning with results pending. . In addition he is seeing Dr. Quinteros for his anemia and chronic renal insufficiency. His anemia may be associated with poor erythropoietin production as well. No plans for hemodialysis at this time. He denies any anginal symptoms, however his main complaint is dyspnea on exertion and shortness of breath. He has had no repeat stress test or catheterization since March 2017 at which time he received his stent. He has been taking his blood pressures at home which have been appropriately controlled. Patient was supposed to start ezetimibe in addition to his gemfibrozil however this did not happen for some reason. In our office today his blood pressure 132/62, pulse is 78 and regular. His physical exam demonstrates a pale appearing conjunctiva of his eyes, pale appearing palms with a mildly pale crease. Lipids as of 12/21/16 showing LDL 103, and an HDL of 31. Repeat lipid profile 06/27/17 shows an LDL 145 and an HDL of 50. Intake Vital Signs10/18/17 Height 5 ft 8 in Intake Visit Reasons: 3 M FU Allergies atorvastatin [From Lipitor] Allergy (Verified 10/18/17 09:54) Unknown glucosamine Allergy (Verified 10/18/17 09:54) Unknown ARTHRITIS MEDICATION Allergy (Uncoded 10/18/17 09:54) Rash Medications Amlodipine [Norvasc] 5 mg PO DAILY 07/04/14 [History Confirmed 04/26/17] Aspirin E.C. [Ecotrin] 81 mg PO DAILY@0800 tab 12/24/16 [Rx Confirmed 04/26/17] Losartan Potassium [Cozaar] 25 mg PO DAILY #30 tab 12/24/16 [Rx Confirmed 04/26/17] Potassium Chloride [K-Dur] 10 meq PO DAILY #30 tab 12/24/16 [Rx Confirmed 04/26/17] Calcium Carbonate [Calcium] 1 tab PO DAILY 03/29/17 [History Confirmed 04/26/17] Calcium Carbonate [Tums] 500 mg PO DAILY 03/29/17 [History Confirmed 04/26/17] Cholecalciferol (Vitamin D3) [D3-2000] 1 cap PO DAILY 03/29/17 [History Confirmed 04/26/17] Clopidogrel Bisulfate [Plavix] 75 mg PO DAILY 03/29/17 [History Confirmed 04/26/17] Diltiazem HCl [Cardizem Cd] 120 mg PO DAILY 03/29/17 [History Confirmed 04/26/17] Furosemide [Lasix] 40 mg PO BID 03/29/17 [History Confirmed 04/26/17] Gemfibrozil [Lopid] 600 mg PO BIDAC 03/29/17 [History Confirmed 04/26/17] Isosorbide Mononitrate [Isosorbide Mononitrate ER] 30 mg PO DAILY 03/29/17 [History Confirmed 04/26/17] Ranitidine [Zantac Syrup] 150 mg PO BID #180 udc 04/26/17 [Rx] ezetimibe 10 mg tablet 10 mg PO QDAY #30 tab 10/18/17 [Rx Confirmed 10/18/17] insulin glargine (U-100) 100 unit/mL subcutaneous solution 12 unit SC QHS 10/18/17 [History Confirmed 10/18/17] prednisone 10 mg tablet 40 mg PO QDAY PRN tab 10/18/17 [History Confirmed 10/18/17] PFSH Medical History GI bleed due to NSAIDs (Chronic) Abdominal aortic aneurysm without rupture (Chronic) Ischemic cardiomyopathy (Chronic) Atherosclerosis of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[place] heart without angina pectoris (Chronic) Complete heart block (Chronic) ST elevation IN (STEMI) (Chronic) Chronic kidney disease, stage 3 (Chronic) Hyperlipidemia (Chronic) Hypertension (Chronic) Carotid artery stenosis (Chronic) PVD (peripheral vascular disease) (Chronic) Prostate cancer (Chronic) Surgical History History of coronary artery stent placement (Chronic) H/O coronary artery bypass surgery (Chronic 1994) History of prostatectomy (Chronic) History of right-sided carotid endarterectomy (Chronic) Social History Smoking Status: Former smoker ROS Const Const: Positive for fatigue and weakness; negative for difficulty sleeping, frequent falls, headache(s) or excessive sweating Eyes Eyes: Negative for loss of peripheral vision, transient loss of vision, blurry vision or double vision ENT ENT: Negative for headache(s), dizziness, Nosebleed/epistaxis or balance problems Cardio Chest Pain: No Edema: None Muscle aches with walking: None Resp Respiratory: Positive for SOB with activity (C/O having no energy and becomes easily SOB); negative for SOB at rest, SOB orthopnea\SOB lying down or paroxysmal nocturnal dyspnea GI GI: Negative nausea or heartburn : Negative for hematuria Musc Musc: Positive for joint pain; negative for muscle aches/ myalgia, muscle weakness or balance problems Skin Skin: Negative non-healing lesions, unusual bruising or rash Neuro Neuro: Positive for weakness; negative for frequent falls, blurry vision, headache(s), dizziness, lightheadedness, orthostatic symptoms or double vision Saad Hematologic/Lymphatic: Negative for easy bruising Endo Endo: Positive for fatigue; negative for excessive sweating or increased thirst/drinking Psych Psych: Negative for anxiety or depression Allergy Allergy/Immunology: Negative for hives, Negative for rash Cardiology Exam Const Appearance: cooperative, healthy appearing and no acute distress Nutritional Appearance: well nourished Orientation: alert, oriented x3 and oriented to person Head Head: normal to inspection, atraumatic and normocephalic Nose: external nose normal Face and Sinus: face symmetric Mouth: oral mucosae normal Eyes General: appearance normal, both eyes and all related structures Eyelids: eyelids normal Conjunctivae: conjunctivae normal Pupils: PERRL and normal by confrontation EOM: EOM intact bilaterally Neck Neck: normal visual inspection and full ROM Carotids: normal carotid upstroke Chest Chest inspection: normal inspection of the chest Auscultation: Bilateral: Clear to Auscultation Cardio Palpation: normal PMI Rate: regular rate Rhythm: regular rhythm Heart sounds: S1 normal and S2 normal GI GI: normal to inspection, no hepatosplenomegaly and bowel sounds present Neuro General: alert, oriented x3, awake, CN's II-XI intact bilaterally and moves all extremities Skin Skin: no rashes or lesions noted Extremities Pulses: Normal: Right Femoral Pulse, Left Femoral Pulse, Right Dorsalis Pedis Pulse, Left Dorsalis Pedis Pulse, Right Posterior Tibial Pulse, Left Posterior Tibial Pulse, Right Radial Pulse, Left Radial Pulse Lower Extremity Edema: None: Bilateral Psych Psychological: normal affect Assessment AND Plan 1. Atherosclerosis of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[place] heart without angina pectoris I25.10 PCI-ADVID-Mid LCX 2.25 x 23 mm Xience 2004; PCI-DAVID-RCA 3.50 x 16 mm Synergy 12/20/16; TKJ-OHY-Mnsm LCX 2.0 x 20 mm Promus Synergy 03/30/2017 CABG x 1 CASTILLO-LAD 1994 Plan 1. Coronary artery disease: No exertional anginal symptoms at this time however the patient does have progressively worsening fatigue and dyspnea on exertion. He was on able to participate in cardiac rehab. I recommended that he undergo a treadmill echocardiogram with a modified Scooby protocol to determine if he has hypertensive blood pressure response to exercise as well as to assess his previously placed stent to his left circumflex in March 2017. If this is grossly abnormal for ischemia, he may require a repeat diagnostic coronary angiogram with IV fluid hydration given his chronic renal insufficiency. In the meantime his blood pressure appears to be appropriately controlled. Recommend he continue his baby aspirin, amlodipine, Plavix, diltiazem, Lasix, Imdur and losartan. Patient shortness of breath and dyspnea on exertion may be COPD related. Recommend pulmonary consultation if cardiac workup is negative. Orders Orders: 2. Hyperlipidemia E78.5 Plan 2. Hyperlipidemia: Patient's LDL is not at goal. He was unable to tolerate statins due to severe myalgias. He appears to be tolerating gemfibrozil well. For some reason he was supposed to have Zetia added but did not occur. Recommend starting ezetimibe 10 mg p.o. nightly and repeating lipid profile in 6 weeks time. Hopefully his LDL can get below 100. 3. Return office in 6 months. This note was generated using a voice recognition system and there may be incorrect words, spelling or punctuation that were not noted when reviewing the office note prior to saving. Orders Orders: Plan Detail Other Orders Orders: Other Medications New: Follow Up 6 Months (Daniel) Coding Level of Care Code Off vis,est,level 3 Diagnoses Atherosclerosis of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[place] heart without angina pectoris I25.10 Hyperlipidemia E78.5 Coding Level of Care Code Off vis,est,level 3 Diagnoses Atherosclerosis of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[place] heart without angina pectoris I25.10 Hyperlipidemia E78.5 10/18/17 1040 <Electronically signed by Rich Sanchez MD> Date [facility] Signature: Date (if applicable) CC: PROGRESS Observed: 10/12/2017 Status: COMPLETED Source: [place] 11:30 AM [facility] REPOSITORY HNO ID: [id number] Author: Billy Navarro (Rn) Service: (none) Author Type: Registered Nurse Type: Progress Notes Filed: 01/11/2018 12:42 PM Note Text: PRIMARY CARE COORDINATION CHART REVIEW Patient identified for Care Coordination from: [facility] Last PCP office visit: 08/03/2017 Next OV: Visit date not found CHRONIC DX: HTN, CKD, DM, CARE GAPS: LDL not <100, Hgb A1C >9 UTILIZATION WITHIN THE LAST 12 MONTHS: None PRIMARY CARE COORDINATION OUTREACH PLAN: Pt is followed by Linette Donato PharmD Will f/u with Pt Ramon Cervnates RN CNPTOUTREACH Observed: 10/12/2017 Status: COMPLETED Source: [place] 12:00 AM [facility] REPOSITORY Patient Outreach (FAMPWS) ABRAHAM GAGE ([id number]) 1940 M Date Time Provider Department 10/12/17 BILLY NAVARRO (RN) FAMPWS During your visit today, we recorded the following information about you: Ramon Cervantes RN 01/11/2018 12:42 PM Signed PRIMARY CARE COORDINATION CHART REVIEW Patient identified for Care Coordination from: [facility] Last PCP office visit: 08/03/2017 Next OV: Visit date not found CHRONIC DX: HTN, CKD, DM, CARE GAPS: LDL not <100, Hgb A1C >9 UTILIZATION WITHIN THE LAST 12 MONTHS: None PRIMARY CARE COORDINATION OUTREACH PLAN: Pt is followed by Valentin GreenD Will f/u with Pt Ramon Cervantes RN Allergies As of Date: 10/12/2017 Noted Allergy Reaction CRESTOR (ROSUVASTATIN CALCIUM) 04/24/2013 14 - Other: See Comments Comments: Muscle pain GLUCOSAMINE 06/27/2017 16 - Unknown Comments: Nerve pain MOTRIN (IBUPROFEN) 01/19/2006 2 - Rash PRAVASTATIN 02/19/2013 14 - Other: See Comments Comments: muscle aches RNLWGDS-ASO-PWE REDUCTASE INHIBIT*10/09/2014 14 - Other: See Comments Comments: myalgia Date Reviewed: 08/03/2017 Reviewed by: Shila Hernández LPN - Fully Assessed 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 X INSULIN GLARGINE (U-100) 100 * Inject 12 Units subcutaneousl* METOPROLOL TARTRATE 25 MG TAB* TAKE 1/2 (ONE-HALF) OF A TABL* KLOR-CON M10 MEQ TABLET,EXTEN* Take 10 mEq by mouth once felice* PEN NEEDLE, DIABETIC 32 GAUGE* Use once daily with Lantus as* BLOOD-GLUCOSE METER KIT 1 Each as directed. LANCETS Use as instructed GEMFIBROZIL 600 MG TABLET Take 1 tablet by mouth twice * ISOSORBIDE MONONITRATE ER 30 * Take 1 tablet by mouth once d* LOSARTAN 25 MG TABLET Take 1 tablet by mouth once d* FUROSEMIDE 40 MG TABLET Take 1 tablet by mouth once d* CLOPIDOGREL 75 MG TABLET Take 1 tablet by mouth once d* DILTIAZEM SR 120 MG 24 HR CAP Take 1 capsule by mouth once * POTASSIUM CHLORIDE ER 10 MEQ * Take 1 tablet by mouth once d* OCUVITE ORAL Take by mouth. COMPOUNDED PRESCRIPTION Nature's way Kidney Bladder COMPOUNDED PRESCRIPTION Nature's Way Garlic Parsley X HYDROCODONE 5 MG-ACETAMINOPHE* Take 1 tablet by mouth every * TRIAMCINOLONE ACETONIDE 0.1 %* Apply 1 application to affect* HYDROCORTISONE 2.5 % TOPICAL * Apply 1 application to affect* VITAMIN D3 ORAL Take 600 mg by mouth once felice* COENZYME Q10 100 MG CAPSULE Take 1 capsule by mouth. ONE DAILY MULTI-VITAMIN TABLET Take one(1) tablet daily. CALTRATE-600 PLUS VITAMIN D3 * TAKE TWO TABLETS DAILY. Problem List As Of Date 10/12/2017 Noted Resolved GENERAL OSTEOARTHROSIS [M15.9] DIAPHRAGMATIC HERNIA [K44.9] ASCVD [I25.10] More... 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] HYPERTEN HEART DIS W/O HRT FAIL [I11.9] ABDOM AORTIC ANEURYSM [I71.4] TENOSYNOV HAND/WRIST NEC [M65.849, M65.839] INVALID FOR* CARPAL TUNNEL SYNDROME [G56.00] INVALID FOR* BENIGN HYPERTENSION [I10] INVALID FOR* CONSTIPATION NOS [K59.00] INVALID FOR* STOMACH FUNCTION DIS NEC [K31.89, R10.13] INVALID FOR* ACUTE GASTRITIS W/O HEMORRHAGE [K29.00] INVALID FOR* Impaired fasting glucose [R73.01] INVALID FOR*07/04/2014 Carotid Art Occ w/o Infarc [I65.29] INVALID FOR* L-S Radiculopathy [M54.17] INVALID FOR* Thoracic or Lumbosacral Neuritis or Radiculitis*INVALID FOR* Glucose intolerance (pre-diabetes) [R73.03] INVALID FOR*07/04/2014 CAD (coronary artery disease) [I25.10] INVALID FOR* Gout [M10.9] INVALID FOR* AAA (abdominal aortic aneurysm) [I71.4] INVALID FOR* Diabetes mellitus type 2, uncontrolled, without*INVALID FOR* Stented coronary artery [Z95.5] INVALID FOR* Fatigue [R53.83] INVALID FOR* Absolute anemia [D64.9] INVALID FOR* CKD (chronic kidney disease) stage 3, GFR 30-59*INVALID FOR* Diarrhea [R19.7] INVALID FOR* CKD (chronic kidney disease) stage 4, GFR 15-29*INVALID FOR* Coronary artery 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 rich plaqu*INVALID FOR* Low blood potassium [E87.6] INVALID FOR* Uncontrolled type 2 diabetes mellitus without c*INVALID FOR* Encounter Status:Closed by RAMON CERVANTES on 01/11/18 XR CHEST 2V FRONTAL/LAT Observed: 10/06/2017 Status: F Source: [place] 12:22 PM [facility] REPOSITORY * * *Final Report* * * DATE OF EXAM: Oct 06 2017 12:22PM WOX [id number] - XR CHEST 2V FRONTAL/LAT / PROCEDURE REASON: Cough * * * * Physician Interpretation * * * * EXAMINATION: CHEST RADIOGRAPH (2 VIEW FRONTAL and LATERAL) Clinical History: Cough MQ: XC2_4 Comparison: Comparison is made to prior chest dated and September 2013 RESULT: Lines, tubes, and devices: None. Lungs and pleura: No consolidation. No lung mass. No pleural effusion. Cardiomediastinal silhouette: The cardiac, mediastinal and hilar shadows are unchanged with median sternotomy changes. Other: The visualized bony structures are intact. IMPRESSION: Stable chest. No acute cardiopulmonary process. 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: PhishMeB Transcribe Date/Time: Oct 06 2017 7:44P Dictated by : JOE PICKARD MD This examination was interpreted and the report reviewed and electronically signed by: JOE PICKARD MD on Oct 06 2017 7:45PM EST [id number] PROGRESS Observed: 10/06/2017 Status: COMPLETED Source: [place] 12:16 PM [facility] REPOSITORY HNO ID: [id number] Author: Aster Herman Service: (none) Author Type: (none) Type: Progress Notes Filed: 10/06/2017 12:22 PM Note Text: Radiology Service Progress Note PATIENT NAME: Abraham Gage DATE OF SERVICE: October 06, 2017 TIME: 12:16 PM PATIENT IDENTITY VERIFICATION COMPLETED USING TWO (2) METHODS: Patient confirmed name verbally and Date of . PATIENT GENDER DATA: Male PATIENT RELEVANT IMPLANT DATA REVIEWED: Not Applicable RADIOLOGY DEPARTMENT: General X-ray: Exam(s) Completed: Chest X-Ray PERIPHERAL IV DATA: Not applicable SIGNED BY: Aster Herman October 06, 2017 12:16 PM ALLERGIES ALLERGIES DATE TYPE / CODE NAME / CODE REACTION SEVERITY SOURCE Drug glucosamine/F0060 Unknown Unknown [place] 8 Allergy/756627858( 37153(RXNORM) [facility] Rep[facility] Drug atorvastatin/F006 Unknown Unknown [place] 8 Allergy/215232096( 375656(RXNORM) [facility] Hospital Repository Miscellaneous ARTHRITIS Rash Unknown [place] 8 Allergy/267775745( MEDICATION [facility] Hospital Repository DRUG ATORVASTATIN UNKNOWN [place] 8 INGREDI/262135829( Clinic Main SNOMED CT) [place] Repository DRUG GLUCOSAMINE UNKNOWN [place] 7 INGREDI/121873641( Clinic Main SNOMED CT) [place] Repository Drug EAOJHEH-FDM-BHL OTHER: SEE C [place] 5 Class/150151167(SN REDUCTASE Clinic Main OMED CT) INHIBITORS [place] Repository DRUG ROSUVASTATIN OTHER: SEE C [place] 3 INGREDI/711193284( CALCIUM Clinic Main SNOMED CT) [place] Repository DRUG PRAVASTATIN OTHER: SEE C [place] 3 INGREDI/805360574( Clinic Main SNOMED CT) [place] Repository DRUG IBUPROFEN RASH [place] 6 INGREDI/878643025( Clinic Main SNOMED CT) [place] Repository ENCOUNTERS ENCOUNTERS ADMIT/DISCHARGE ACCOUNT ADMITTING ENCOUNTER LOCATION SOURCE NUMBER CLASS 08/17/2018/08/17/19 [id number] Emergency [address] ing:ED Repository 08/07/2018/08/08/19 [id number] Ambulatory [address] Main [place] Repository 08/02/2018/08/02/19 [id number] Ambulatory [place] [facility] Main [place] Repository 07/10/2018/07/11/20 [id number] Ambulatory [place] 18 [facility] Main [place] Repository 07/07/2018/07/07/20 [id number] Ambulatory [place] 18 [facility] Main [place] Repository 07/07/2018/07/10/20 [id number] Ambulatory [place] 18 [facility] Main [place] Repository 06/29/2018/06/29/20 [id number] Ambulatory [place] 18 [facility] Main [place] Repository 06/14/2018/06/15/20 [id number] Ambulatory [place] 18 [facility] Main [place] Repository 06/06/2018/06/06/20 [id number] Ambulatory [place] 18 [facility] Main [place] Repository 06/01/2018/06/02/20 [id number] Ambulatory [place] 18 [facility] Main [place] Repository 05/31/2018/06/01/20 [id number] Ambulatory [place] 18 [facility] Main [place] Repository 05/31/2018/05/31/20 [id number] Ambulatory [address] Main [place] Repository 05/22/2018 [id number] Ambulatory [facility] ing:PSN Repository 05/22/2018 [id number] Ambulatory BMSBuilding:W [facility] Repository 05/08/2018/05/10/20 [id number] Ambulatory [place] 18 [facility] Main [place] Repository 05/08/2018/05/08/20 [id number] Ambulatory BMSBuilding:[place]ony [place] [address] [facility] Repository 05/01/2018/05/02/20 [id number] Ambulatory [facility] Main [place] Repository 04/18/2018/04/19/20 [id number] Ambulatory [place] 18 [facility] Main [place] Repository 04/18/2018/04/18/20 [id number] Ambulatory [place] 18 [facility] Main [place] Repository 04/18/2018/04/26/20 [id number] Ambulatory [place] 18 [facility] Main [place] Repository 01/31/2018/02/01/20 [id number] Ambulatory [place] 18 [facility] Main [place] Repository 01/30/2018/01/31/20 [id number] Ambulatory [address] Main [place] Repository 01/30/2018/02/01/20 [id number] Ambulatory [address] Main [place] Repository 01/23/2018/01/24/20 [id number] Ambulatory [address] Main [place] Repository 01/23/2018/01/24/20 [id number] Ambulatory [address] Main [place] Repository 11/08/2017 [id number] Ambulatory [facility] ing:[facility] Repository 11/08/2017 [id number] Ambulatory BMSBuilding:W [facility] Repository 11/07/2017 [id number] Ambulatory [facility] ing:LAB.FUTUR Repository E 10/31/2017/11/02/19 [id number] Ambulatory [address] Main [place] Repository 10/24/2017/10/25/19 [id number] Ambulatory [address] Main [place] Repository 10/18/2017/10/19/19 [id number] Ambulatory BMSBuilding:Jony [place] [address] [facility] Repository 10/17/2017 [id number] Ambulatory BMSBuilding:[place] [facility] Repository 10/06/2017/10/07/19 [id number] Ambulatory [address] Main [place] Repository PAYERS PAYERS ENCOUNTER GUARANTOR PAYER SUBSCRIBER SOURCE 08/17/2018 ABRAHAM Ugarte ABRAHAM Ortega [place] [id number] Insurance:MEDICARE MALCUITDOB: Community NONPARIEL PART A BPolicy Number: [id number] [id number] Repository , [place] [address]Fie: Date:2018-08-17 () 08/17/2018 Secondary ABRAHAM Ortega [place] Insurance:HUMANA MALCUITDOB: [facility], [facility] [id number] Hospital Number: Repository [id number] Date:[id number] [address] [address]CA: 08/17/2018 Tertiary NOT GIVENUNK [place] Insurance:SELF PAY [facility] Number: Effective Repository Date:2018-08-17 05/22/2018 ABRAHAM Ortega Primary ABRAHAM Ortega [place] [id number] Insurance:MEDICARE MALCUITDOB: Community NONPARIEL PART A BPolicy Number: [id number] [id number] Repository , [place] [address]Yfv: Date:2018-05-08 () 05/22/2018 Secondary ABRAHAM Ortega [place] Insurance:HUMANA MALCUITDOB: [facility]ly [facility], [facility] [id number] Hospital Number: Repository [id number] Date:7717-22-01[address] [address]XF: 05/22/2018 Tertiary NOT GIVENUNK [place] Insurance:SELF PAY [facility] Number: Effective Repository Date:2018-05-08 05/22/2018 ABRAHAM Ortega Primary ABRAHAM Ortega [place] [id number] Insurance:MEDICARE MALCUITDOB: Community NONPARIEL PART A BPolicy Number: [id number] [id number] Repository , [place] [address]Wmc: Date:2018-05-08 () 05/22/2018 Secondary ABRAHAM Ortega [place] Insurance:HUMANA MALCUITDOB: [facility], [facility] [id number] Hospital Number: Repository [id number] Date:1331-20-[address] [address]BQ: 05/22/2018 Tertiary NOT GIVENUNK [place] Insurance:SELF PAY [facility], [facility] Number: Effective Repository Date:2018-05-22 05/08/2018 ABRAHAM Ortega Primary ABRAHAM Ortega [place] [id number] Insurance:MEDICARE MALCUITDOB: Community NONPARIEL PART A BPolicy Number: [id number] [facility] Medical Center [id number] Repository , [place] [address]Mcw: Date:2017-10-18 () 05/08/2018 Secondary ABRAHAM Ortega [place] Insurance:HUMANA MALCUITDOB: Community [facility] [id number] Hospital Number: Repository [id number] Date:[id number] [address]BH: 05/08/2018 Tertiary NOT GIVENUNK [place] Insurance:SELF PAY [facility] Number: Effective Repository Date:2018-05-08 11/08/2017 ABRAHAM Ortega Primary ABRAHAM Ortega [place] [id number] Insurance:MEDICARE MALCUITDOB: Community NONPARIEL PART A BPolicy Number: [id number] Valley Medical Center [id number] Repository , [place] [address]Uzw: Date:2017-10-18 () 11/08/2017 Secondary ABRAHAM Ortega [place] Insurance:HUMANA MALCUITDOB: Community COMMERCIALPolicy [id number] Hospital Number: Repository [id number] Date:[id number] [address]TD: 11/08/2017 Tertiary NOT GIVENUNK [place] Insurance:SELF PAY [facility] Number: Effective Repository Date:2017-10-18 11/08/2017 ABRAHAM Ortega Primary ABRAHAM Ortega [place] [id number] Insurance:MEDICARE MALCUITDOB: Community NONPARIEL PART A BPolicy Number: [id number] Valley Medical Center [id number] Repository , [place] [address]Yfp: Date:2017-10-18 () 11/08/2017 Secondary ABRAHAM Ortega [place] Insurance:HUMANA MALCUITDOB: Community COMMERCIALPolicy [id number] Hospital Number: Repository [id number] Date:6517-18-59[address] [place] [address]MD: 11/08/2017 Tertiary NOT GIVENUNK [place] Insurance:SELF PAY [facility] Number: Effective Repository Date:2017-11-08 11/07/2017 ABRAHAM Ortega Primary ABRAHAM Ortega [place] [id number] Insurance:MEDICARE MALCUITDOB: Community NONPARIEL PART A BPolicy Number: [id number] Valley Medical Center [id number] Repository , [place] [address]Ypf: Date:2017-09-26 () 11/07/2017 Secondary ABRAHAM Ortega [place] Insurance:HUMANA MALCUITDOB: Community COMMERCIALPolicy [id number] Hospital Number: Repository [id number] Date:7717-22-30EI [address] [place] [address]CI: 11/07/2017 Tertiary NOT GIVENUNK [place] Insurance:SELF PAY [facility] Hospital Number: Effective Repository Date:2017-09-26 10/18/2017 ABRAHAM Jordan Primary ABRAHAM Ortega [place] [id number] Insurance:MEDICARE MALCUITDOB: Community NONPARIEL PART A BPolicy Number: [id number] Valley Medical Center [id number] Repository , [place] [address]Ybr: Date:2017-07-11 () 10/18/2017 Secondary ABRAHAM Ortega [place] Insurance:HUMANA MALCUITDOB: Community COMMERCIALPolicy [id number] Hospital Number: Repository [id number] Date:[id number] [address]RR: 10/18/2017 Tertiary NOT GIVENUNK [place] Insurance:SELF PAY [facility], [facility] Number: Effective Repository Date:2017-07-11 10/17/2017 Abraham Ortega Primary Abraham Yan [id number] Insurance:MEDICARE MalcuitDOB: Community Nonpariel PART A BPolicy Number: [id number] [place] [id number] [place]ository [place], [place] [address]Wju: Date:2017-10-17 () 10/17/2017 Secondary Abraham Yan Insurance:HUMANA MalcuitDOB: Community COMMERCIALPolicy [id number] Hospital Number: Repository [id number] Date:[id number] [id number]: 10/17/2017 Tertiary NOT GIVENUNK [place] Insurance:SELF PAY [facility]ly [facility], [facility] INSURANCEOss Health Number: Effective Repository Date:2017-10-17
== END 2018-08-17 12:12 | disposition home or self-care (01) ==
PROVIDERS: Emergency Provider Emergency Medicine; Family Provider Student in an Organized Health Care Education/Training Program; PCP Student in an Organized Health Care Education/Training Program
DX: R10.13 Epigastric pain (principal); R10.33 Periumbilical pain; K42.9 Umbilical hernia without obstruction or gangrene; I71.4 Abdominal aortic aneurysm, without rupture; I25.10 Atherosclerotic heart disease of native coronary artery without angina pectoris; I25.2 Old myocardial infarction; I10 Essential (primary) hypertension; D64.9 Anemia, unspecified; E11.9 Type 2 diabetes mellitus without complications; N28.9 Disorder of kidney and ureter, unspecified; K21.9 Gastro-esophageal reflux disease without esophagitis; Z95.1 Presence of aortocoronary bypass graft; Z95.5 Presence of coronary angioplasty implant and graft; Z90.79 Acquired absence of other genital organ(s); Z79.4 Long term (current) use of insulin; Z79.899 Other long term (current) drug therapy
CPT/HCPCS: 74176; 80048; 80076; 83690; 84484; 85025; 93005; 99283

== ENCOUNTER → 2019-07-16 13:29 | Outpatient (CLI) | payer MEDICARE, OTHER, SELFPAY ==
[2016-12-21 14:00] VITALS: BMI 28.0
[2019-06-21 12:59] VITALS: BMI 26.3
--- NOTE | 2019-07-16 13:31 | STEWCON_ITS ---
Reason For Study: CAD Stress Results Protocol: Modified Scooby Protocol With Definity Maximum Predicted HR: 142 bpm Target HR: 121 bpm % Maximum Predicted HR: 98 % DurationHeart Rate Stage (mm:ss) (bpm) BP Comment Baseline 75 150/78No Chest Pain; 4 ML Diluted Definity Given Modified Scooby Protocol Stage 0 3:00 108 148/74No Chest Pain Modified Scooby Protocol Stage 1/2 3:00 116 160/76No Chest Pain Modified Scooby Protocol Stage 1 3:00 125 170/68Mild Chest Burning Modified Scooby Protocol Stage 2 2:00 139 180/62Mild Chest Burning Recovery 83 150/76No Chest Pain Stress Duration: 11:00 mm:ss Maximum Stress HR: 139 bpm METS: 7 Baseline Echocardiogram Findings The estimated ejection fraction is 65 %. Stress Echo Wall motion Data Resting WM Intermediate WM Stress WM Resting Wall Motion Wall Motion Stress No regional wall motion No regional wall motion abnormalities noted. abnormalities noted. EKG Data The baseline ECG displays normal sinus rhythm. At peak exercise, upsloping ST changes only were noted, which did not meet the criteria for ischemia. No arrhythmias noted. No clinical angina was noted. Interpretation Summary The estimated ejection fraction is 65 %. Normal, adequate, modified Scooby treadmill echocardiogram. Negative for ischemia by EKG and echocardiographic criteria. No anginal symptoms noted. No arrhythmias noted. Appropriate blood pressure response to exercise. Average exercise capacity for age. Test terminated due to the attainment of target heart rate and mild dyspnea. Final LVEF of 75%. Decreased sensitivity due to poor echo windows requiring Definity agent. Patient tolerated procedure well. No complications. The study was technically difficult. Contrast injection was performed. Ordering Physician: Rich Sanchez Referring Physician: Samson Ragsdale Performed By: Dia Stubbs, RDCS, RVT
== END ==
PROVIDERS: Family Provider Student in an Organized Health Care Education/Training Program; PCP Student in an Organized Health Care Education/Training Program; Referring Provider Internal Medicine Cardiovascular Disease; Visit Provider Internal Medicine Cardiovascular Disease
DX: I25.10 Atherosclerotic heart disease of native coronary artery without angina pectoris (principal); I10 Essential (primary) hypertension; E78.5 Hyperlipidemia, unspecified
CPT/HCPCS: 93017; 93350; Q9957; A4216; C8928

== ENCOUNTER → 2020-03-24 12:39 | Outpatient (CLI) | payer MEDICARE, OTHER, SELFPAY ==
[2016-12-21 14:00] VITALS: BMI 28.0
[2020-02-07 15:54] VITALS: BMI 27.6
--- NOTE | 2020-03-25 10:15 | PFT ---
INTRODUCTION: The patient is a 79-year-old male that presents for pulmonary function studies secondary to a diagnosis of pulmonary hypertension. Respiratory therapy reports good patient effort. Bronchodilators were used during testing. INTERPRETATION: Forced expiration spirometry demonstrates the presence of a moderate large airways obstructive ventilatory defect. There was no significant response to aerosolized bronchodilators. Spirograms are of good quality and do not plateau indicating slow emptying of the lungs. Body plethysmography was performed and revealed an elevated RV to 161% of predicted, indicative of underlying air trapping. Diffusing capacity by single breath CO is within normal limits. When compared to pulmonary function studies from May 2018, there has been a 14% reduction in FEV1 along with an 11% reduction in DLCO. IMPRESSION: Irreversible moderate large airways obstructive ventilatory defect with associated air trapping and preserved diffusing capacity. There have been changes in the patient's pulmonary function studies since 2017, as noted above.
== END ==
PROVIDERS: PCP Student in an Organized Health Care Education/Training Program; Referring Provider Internal Medicine Cardiovascular Disease; Visit Provider Internal Medicine Cardiovascular Disease
DX: I25.10 Atherosclerotic heart disease of native coronary artery without angina pectoris (principal); I25.5 Ischemic cardiomyopathy; I10 Essential (primary) hypertension; Z95.5 Presence of coronary angioplasty implant and graft
CPT/HCPCS: 94060; 94726; 94729

== ENCOUNTER 2020-09-24 08:44 | Outpatient (RCR) | payer MEDICARE, OTHER, SELFPAY ==
[2016-12-21 14:00] VITALS: BMI 28.0
[2020-08-25 15:32] VITALS: BMI 25.7
== END 2020-09-24 23:59 ==
LOC: IMMUN 08:44
PROVIDERS: PCP Student in an Organized Health Care Education/Training Program; Referring Provider Family Medicine; Visit Provider Family Medicine
DX: Z23 Encounter for immunization (principal)
CPT/HCPCS: 0011A; 0012A

== ENCOUNTER 2024-01-12 07:25 | Emergency (ER) | payer MEDICARE, OTHER, SELFPAY ==
[2016-12-21 14:00] VITALS: BMI 28.0
[2024-01-12 07:26] VITALS: BP 129/62; PULSE 59; RESP 14; TEMP 36.6; O2SAT 97; BMI 25.2
--- NOTE | 2024-01-12 07:44 | EX.ED.DYSGE1 ---
HPI History of Present Illness Chief Complaint: Abd Pain Informant: patient and spouse/S.O. Narrative Narrative: 83-year-old male presenting to the emergency room with chronic abdominal pain and chronic diarrhea. Patient states that for months he has had pain in the lower suprapubic left lower quadrant of his abdomen. He states it has been months since he had a solid bowel movement. In the months that this has been going on he has not seen anybody for it. He states that he has a lot of gas. This also is not new. He states I am old school and no go to the doctor. He [facility]. When asked if he has any medical problems he states I have a lot of medical problems. He did not bring a list of medicines with him. Patient notes that he has had open heart surgery and a prostatectomy. He denies any other abdominal surgeries. He states that yesterday he had a fish sandwich and [place] fries and his pain seemed to get worse. He denies any significant bloating. No vomiting. No fever. No radiation of the pain. [facility] Medical History (Updated 01/12/24 @ 11:[address] Rich Gurrola, ) GI bleed due to NSAIDs Carotid artery stenosis Abdominal aortic aneurysm without rupture Ischemic cardiomyopathy Prostate cancer PVD (peripheral vascular disease) Atherosclerosis of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[place] heart without angina pectoris Complete heart block ST elevation RI (STEMI) Chronic kidney disease, stage 3 Hyperlipidemia Hypertension Home Medications ?Medication ?Instructions ?Recorded ?Last Taken ?Type calcium carbonate 1 tab PO DAILY 03/29/17 Unknown History isosorbide mononitrate 30 mg 30 mg PO DAILY 03/29/17 03/30/17 History tablet,extended release 24 hr cetirizine 10 mg tablet (Zyrtec) 5 mg PO DAILY 05/08/18 Unknown History coenzyme Q10 100 mg capsule 100 mg PO DAILY 05/08/18 Unknown History (CoQ-10) insulin glargine 100 unit/mL 10 unit subcut QHS 05/08/18 Unknown History subcutaneous solution (Lantus U-100 Insulin) B-complex with vitamin C 1 cap PO DAILY 11/23/18 Unknown History amlodipine 5 mg tablet 5 mg PO DAILY #1 TAB 11/23/18 Unknown Rx magnesium oxide 400 mg (241.3 mg 400 mg PO DAILY 11/23/18 Unknown History magnesium) tablet turmeric root extract 500 mg 500 mg PO DAILY 11/23/18 Unknown History capsule allopurinol 100 mg tablet 100 mg PO DAILY 06/21/19 Unknown History cholecalciferol (vitamin D3) 125 5,000 unit PO DAILY 06/21/19 Unknown History mcg (5,000 unit) capsule losartan 50 mg tablet 50 mg PO DAILY 06/21/19 Unknown History famotidine 20 mg tablet 20 mg PO QHS PRN 02/07/20 Unknown History furosemide 40 mg tablet 40 mg PO .COMPLEX PRN edema 02/07/20 Unknown History clopidogrel 75 mg tablet 75 mg PO DAILY #90 tabs 08/19/20 Unknown Rx carvedilol 12.5 mg tablet 12.5 mg PO BID 04/21/21 Unknown History amoxicillin 875 mg-potassium 875 mg PO Q12H #20 TABLETS 01/12/24 Unknown Rx clavulanate 125 mg tablet oxycodone-acetaminophen 5 mg-325 1 tab PO Q6H PRN PRN Pain 3 days 01/12/24 Unknown Rx mg tablet #12 TABLETS Allergy/AdvReac Type Severity Reaction Status Date / Time atorvastatin (From Lipitor) Allergy Unknown Verified 01/12/24 07:25 glucosamine Allergy Unknown Verified 01/12/24 07:25 Family History Father Arthritis Mother Hypertension Grandmother Diabetes Surgical History History of prostatectomy History of right-sided carotid endarterectomy History of coronary artery stent placement H/O coronary artery bypass surgery (~1994) Social History Smoking Status: Former smoker how long ago did patient quit smokin+years ago alcohol intake: current alcohol intake frequency: holidays/special occasions only substance use type: does not use caffeine: Yes Type: coffee and tea ROS ROS ED Constitutional Constitutional ED: Denies chills, fever(s) or weight loss Eyes Eyes: Denies change in vision or diplopia ENT ENT ED: Denies ear pain, rhinorrhea or sore throat Cardiovascular Cardiovascular: Denies chest pain, orthopnea, palpitations or racing heartbeat Respiratory/Chest Respiratory/Chest: Denies cough, dyspnea or orthopnea Gastrointestinal Gastrointestinal: Reports abdominal pain and diarrhea; Denies nausea or vomiting Genitourinary Genitourinary ED: Denies dysuria, hematuria or urinary frequency Musculoskeletal Musculoskeletal: Denies arthralgias, back pain or myalgias Integumentary Denies abscess or rash Neurologic Neurologic: Denies headache(s) or weakness Psychiatric Psychiatric: Denies anxiety, depression, suicidal ideation or suicidal thoughts Endocrine Endocrinology: Denies polydipsia, polyphagia or polyuria Allergic/Immunologic Allergic/Immunologic ED: Denies mouth swelling, tongue swelling or urticaria EXAM Physical Exam Const Vital Signs: 01/12/24 07:26 01/12/24 09:25 01/12/24 11:00 Temperature 98 F Temperature Source Temporal Pulse Rate 59 L 54 L 54 L Respiratory Rate 14 16 16 Blood Pressure 129/62 H 120/56 L 122/54 H Blood Pressure Mean 84 77 76 Pulse Ox 97 96 96 Oxygen Delivery Method Room Air Room Air Room Air Positive well nourished and well developed General Appearance ED: well developed HEENT Reports normocephalic, head/scalp atraumatic and moist mucous membranes Eyes PERRL and EOMs intact bilaterally Neck no lymphadenopathy, supple and no JVD Resp normal respiratory effort and clear to auscultation bilaterally Cardio regular rate, regular rhythm and no murmurs GI normal to inspection, nondistended, normoactive bowel sounds and non-tender Palpation: soft Back/Spine no CVA tenderness and normal ROM Extremity normal to inspection General Extremety ED: Negative for edema General Extremity: Negative for edema Neuro oriented x3 and CN's II-XII intact bilaterally Sensorium / Orientation: alert Motor Exam: strength 5/5 throughout Psych mental status grossly normal Mood & Affect: Negative for depressed or tearful Skin no rashes or lesions noted and no wounds MDM MDM MDM Narrative Medical decision making narrative: Differential diagnosis includes but not limited to diverticulitis colitis cystitis intra-abdominal abscess perforation volvulus obstruction AAA rupture SBO. White count slightly elevated 12.5 hemoglobin 12.3. BMP with a BUN of 26 creatinine 2.12 glucose of 123 lipase 46 normal LFTs. Urinalysis is negative. CT of the abdomen pelvis was obtained. This was done without contrast due to the patient's chronic kidney disease. There is a area of colitis of the descending colon in the proximal sigmoid colon which is most likely due to diverticulitis. Please see the radiologist read for further details. There is also the possibility of a recently passed ureteral stone. Patient will be treated with Augmentin and pain medication. Would recommend primary care follow-up. We talked about possible complications such as perforation and diver particular abscess. The patient understands return instructions History & Record Review Discussion w/independent historian: Patient and Significant other Lab Data Attestation: I reviewed the patient's lab results. Labs: Laboratory Results - last 24 hr 01/12/24 01/12/24 08:05 10:05 WBC 12.5 H RBC 4.32 L Hgb 12.3 L Hct 39.0 L MCV 90.3 MCH 28.5 MCHC 31.5 L RDW Std Deviation 49.2 H RDW Coeff of [place] 14.9 H Plt Count 251 MPV 9.6 Immature Gran % (Auto) 0.200 Neut % (Auto) 82.0 H Lymph % (Auto) 9.7 L [place] % (Auto) 6.5 Eos % (Auto) 1.4 Baso % (Auto) 0.2 Absolute Neuts (auto) 10.3 H Absolute Lymphs (auto) 1.22 Nucleated RBC % 0 Sodium 140 Potassium 4.1 Chloride 107 Carbon Dioxide 27.0 Anion Gap 6 BUN 26 H Creatinine 2.12 H Estim Creat Clear Calc 25.99 Est GFR (MDRD) Af Amer 39 L Est GFR (MDRD) Non-Af 32 L BUN/Creatinine Ratio 12.3 Glucose 123 H Calcium 9.1 Total Bilirubin 0.20 Direct Bilirubin 0.09 AST 12 L ALT 13 L Alkaline Phosphatase 104 Total Protein 6.6 Albumin 3.3 Globulin 3.3 Lipase 46 Urine Color Straw Urine Clarity Clear Urine pH 6.5 Ur Specific [place] 1.010 Urine Protein Negative Urine Glucose (UA) Normal Urine Ketones Negative Urine Occult Blood Negative Urine Nitrite Negative Urine Bilirubin Negative Urine Urobilinogen Normal Ur Leukocyte Esterase Negative Urine RBC 0 SEEN Urine WBC 0 SEEN Ur Squamous Epith Cells 0 SEEN Urine Bacteria RARE Urine Mucus 0 SEEN Radiography Diagnostic Testing: Clinical Impression(s) from Imaging Studies Abdomen/Pelvis CT 01/12/24 10:25 IMPRESSION: Mild degree of colitis of the descending colon and proximal sigmoid colon most likely secondary to diverticulitis. Infrarenal abdominal aortic aneurysm. Multiple bilateral nonobstructive intrarenal calculi. 3.5 mm calculus at the base of the bladder on the right side suggestive of a recently passed calculus. Electronically Signed: Rolan Akers MD at 10:59 EDT , Discharge Plan Triage Chief Complaint: Abd Pain ED Provider: Rich Gurrola Dx/Rx/DC Orders Clinical Impression: Abdominal pain, Diverticulitis Instructions: Diverticulosis and Diverticulitis Prescriptions: New oxycodone-acetaminophen 5-325 mg tablet 1 tab PO Q6H PRN PRN (Reason: Pain) 3 Days Qty: 12 0RF amoxicillin-pot clavulanate 875-125 mg tablet 875 mg PO Q12H Qty: 20 0RF No Action Lantus U-100 Insulin 100 unit/mL solution 10 unit SC QHS cetirizine [Zyrtec] 10 mg tablet 5 mg PO DAILY coenzyme Q10 [CoQ-10] 100 mg capsule 100 mg PO DAILY magnesium oxide 400 mg (241.3 mg magnesium) tablet 400 mg PO DAILY turmeric root extract 500 mg capsule 500 mg PO DAILY B-complex with vitamin C capsule 1 cap PO DAILY amlodipine 5 mg tablet 5 mg PO DAILY Qty: 1 0RF allopurinol 100 mg tablet 100 mg PO DAILY losartan 50 mg tablet 50 mg PO DAILY cholecalciferol (vitamin D3) 5,000 unit capsule 5,000 unit PO DAILY furosemide 40 mg tablet 40 mg PO .COMPLEX PRN (Reason: edema) Rx Instructions: 40 mg PO once daily, may take an extra one prn for edema; PRN; famotidine 20 mg tablet 20 mg PO QHS PRN Patient Comments: Take 1 tablet by mouth at bedtime as needed. carvedilol 12.5 mg tablet 12.5 mg PO BID Rx Instructions: must administer with a meal/food isosorbide mononitrate 30 MG tablet extended release 24 hr 30 mg PO DAILY Patient Comments: Heart calcium carbonate 500 MG tablet,chewable 1 tab PO DAILY Patient Comments: Supplement clopidogrel 75 mg tablet 75 mg PO DAILY Qty: 90 3RF Primary Care Provider: Samson Ragsdale Referrals: Samson Ragsdale DO [Primary Care Provider] - 1-2 Weeks Print Language: Nepali Disposition Disposition: Home, Self Care
[2024-01-12] MEDS: Ondansetron 4 MG/2 ML Vial IV (08:16)
[2024-01-12] MEDS: Morphine 4 MG/ML Syringe IV (08:16)
[2024-01-12 08:17] LABS: Absolute Lymphocyte Count 1.22 X10^3/uL (0.83-4.51); Absolute Neutrophil Count 10.3 X10^3/uL (2.0-7.7); Basophil# 0.03 X10^3/uL; Basophil% 0.2 % (0-1); Eosinophil# 0.18 X10^3/uL; Eosinophils% 1.4 % (0-5); Hemoglobin 12.3 g/dL (13.0-16.5); Lymphocyte # 1.22 X10^3/ul (0.83-4.51); Lymphocyte % 9.7 % (19-41); Mean Corp Hgb Conc 31.5 g/dL (32-36); Mean Corpuscular Hgb 28.5 pg (27.0-32.0); Mean Corpuscular Volume 90.3 fL (80-94); Mean Platelet Vol. 9.6 fl (6.2-12.0); Monocyte# 0.81 X10^3/uL; Monocyte% 6.5 % (0-10); NRBC Flagged by Analyzer 0 % (0-5); Neutrophil # 10.26 X10^3/uL (2.7-7.7); Platelet Count 251 K/mm3 (150-450); RBC Distribution Width CV 14.9 % (11.6-14.6); RBC Distribution Width SD 49.2 fl (35.1-43.9); Red Blood Count 4.32 M/mm3 (4.6-6.2); White Blood Count 12.5 K/mm3 (4.4-11.0)
[2024-01-12 08:37] LABS: AST(SGOT) 12 U/L (15-37); Alanine Aminotransfer ALT/SGPT 13 U/L (16-61); Albumin, Serum 3.3 g/dL (3.2-5.0); Alkaline Phosphatase 104 U/L (45-117); Anion Gap 6 (5-15); BUN 26 mg/dL (7-18); BUN/Creat Ratio 12.3 RATIO (10-20); Bilirubin, Direct 0.09 mg/dL (0.00-0.30); Calcium,Total 9.1 mg/dL (8.5-10.1); Chloride 107 mmol/L (98-107); Creatinine, Serum 2.12 mg/dL (0.70-1.30); EST Glomerular Filtration Rate 32 mL/min (>60); Est Glom Filt Rate - Afr Amer 39 mL/min (>60); Estimated Creatinine Clearance 25.99 ml/min; Globulin 3.3 g/dL (2.2-4.2); Glucose 123 mg/dL (74-106); Lipase 46 U/L (13-75); Potassium 4.1 mmol/L (3.5-5.1); Protein, Total 6.6 g/dL (6.4-8.2); Sodium Level 140 mmol/L (136-145)
[2024-01-12 09:25] VITALS: BP 120/56; PULSE 54; RESP 16; O2SAT 96
[2024-01-12 10:11] LABS: Mucous, Urine 0 SEEN /hpf (<or=2+); Red Blood Cells-Urine 0 SEEN /hpf (0-5); Squamous Epithelial Cells - UA 0 SEEN /hpf (0-5); White Blood Cells 0 SEEN /hpf (0-5)
[2024-01-12 10:15] LABS: Color, Urine Straw (Yellow); Glucose, Dipstick Normal (Normal); Ketone-Dipstick Negative (Negative); Leukocyte Esterase-Dipstick Negative /ul (Negative); Nitrite-Dipstick Negative (Negative); Occult Blood-Urine Negative /ul (Negative); Protein-Dipstick Negative (Negative); Urine Bilirubin Dipstick Negative (Negative); Urine Clarity Clear (Clear); Urine Urobilinogen Normal (Normal); Urine pH 6.5 (5.0 - 8.0)
--- NOTE | 2024-01-12 10:25 | CT_ITS ---
STUDY: CT ABDOMEN AND PELVIS WITHOUT CONTRAST REASON FOR EXAM: Male, 83 years old. Diverticulitis. Nausea and diarrhea. Lower abdominal pain. History of prostate cancer. RADIATION DOSAGE (If Supplied By Facility): CTDIvol = ( 6.75 ) mGy, DLP = ( 352.65 ) mGycm TECHNIQUE: Transaxial images were obtained from the dome of the diaphragm to the symphysis pubis without oral contrast, and without intravenous contrast. Sagittal and coronal images were reconstructed. Individualized dose optimization techniques were used for this CT. COMPARISON: Comparison is made with prior study dated August 17, 2018. FINDINGS: The visualized lung bases are unremarkable. Coronary artery calcification. Dual-chamber pacemaker is seen. Normal liver. Normal gallbladder and extrahepatic biliary system. Normal spleen. Normal pancreas. Normal bilateral adrenal glands. There are nonobstructive bilateral intrarenal calculi. There is evidence of a 2.2 cm right parapelvic cyst. There is a 3.5 mm calculus at the base of the bladder on the right side suggestive of a recently passed right ureteral calculus. Normal visualized stomach. Normal small intestine. Mild degree of circumferential wall thickening of the descending colon in the proximal sigmoid colon with increased markings in the surrounding fat in keeping with the localized colitis most likely secondary to diverticulitis. The appendix is visualized and appears normal. There is diffuse atherosclerotic calcification of the abdominal aorta. There is evidence of an infrarenal abdominal aortic aneurysm with a transverse dimension of 4.5 cm. Normal inferior vena cava. Normal retroperitoneum. Normal urinary bladder. Normal abdominal wall. There are diffuse degenerative changes of the visualized lumbar spine. Degenerative changes of the sacroiliac joints. CT/Abdomen/Pelvis without Cont IMPRESSION: Mild degree of colitis of the descending colon and proximal sigmoid colon most likely secondary to diverticulitis. Infrarenal abdominal aortic aneurysm. Multiple bilateral nonobstructive intrarenal calculi. 3.5 mm calculus at the base of the bladder on the right side suggestive of a recently passed calculus. Electronically Signed: Rolan Akers MD at 10:59 EDT ,
[2024-01-12 10:26] LABS: Bacteria RARE /hpf (None Seen)
[2024-01-12 11:00] VITALS: BP 122/54; PULSE 54; RESP 16; O2SAT 96
[2024-01-12 12:11] VITALS: BP 136/71; PULSE 71; RESP 16; TEMP 36.7; O2SAT 98
== END 2024-01-12 12:15 | disposition home or self-care (01) ==
PROVIDERS: Emergency Provider Emergency Medicine; PCP Student in an Organized Health Care Education/Training Program; Visit Provider Emergency Medicine
DX: K57.92 Diverticulitis of intestine, part unspecified, without perforation or abscess without bleeding (principal); N18.30 Chronic kidney disease, stage 3 unspecified; I25.2 Old myocardial infarction; Z87.891 Personal history of nicotine dependence; Z95.5 Presence of coronary angioplasty implant and graft
CPT/HCPCS: 74176; 80048; 80076; 81001; 83690; 85025; 96374; 96375; 99284; J7040; A4216; J2405

== ENCOUNTER 2025-01-13 22:11 | Emergency (ER) | payer MEDICARE, OTHER, SELFPAY ==
[2016-12-21 14:00] VITALS: BMI 28.0
[2025-01-13 22:13] VITALS: BP 114/43; PULSE 64; RESP 40; TEMP 36.6; O2SAT 96; BMI 25.1
[2025-01-13 22:15] VITALS: BP 110/53; PULSE 59; RESP 18; TEMP 36.6; O2SAT 95
--- OUTSIDE RECORDS SUMMARY | 2025-01-13 22:55 | XMS RPT_ITS | CCD ---
Author Organization [facility] Care Team Providers Care Manager [employer] Name Role Phone MD Daniel, Rich Perea Unavailable Manju Miller Unavailable Unavailable Alissa, RN, Tania Dennis Unavailable Unavailtracy Joshi RN, Yu Huerta Unavailable Unavailable Samson Ragsdale DO Primary Care Provider Samson Ragsdale DO Primary Care Provider Samson Ragsdale DO Primary Care Provider Samson Ragsdale DO Primary Care Provider SAMSON RAGSDALE DO Primary Care Physician Thalia Rounding Nurse, Anurag Unavailable Lelia MIJARES MD, DUSTIN Perea Admitting Unavailable SAMSON RAGSDALE DO Primary Care Unavailable JERRY ASTORGA, DR WALTERS Consulting Unavailab sosa ACHARYA MD, DR WALTERS Attending Unavailab Samson Bourgeois DO Primary Care Provider CRISTIN NIEVES Attending Unavailable CRISTELA ANDERSEN Referring Unavailable SAMSON RAGSDALE Primary Care Unavailable Aristides SERVICE PARTS COORDINATOR.Desirae DE LA O Unavailable Dany SERVICE PARTS COORDINATOR.Lore DE LA O Unavailable rAistides SERVICE PARTS COORDINATOR.Desirae DE LA O Unavailable DESIRAE IRVING Referring UnavailSAMSON Huizar Primary Care Unavailable SAMSON RAGSDALE Primary Care Unavailable CRISTELA ANDERSEN Attending Unavailable SAMSON RAGSDALE Primary Care Unavailable MALU MENDOZA Referring Unavailable SAMSON RAGSDALE Primary Care Unavailable SAMSON RAGSDALE Referring Unavailable CRISTELA ANDERSEN Attending Unavailable SAMSON RAGSDALE Primary Care Unavailable SAMSON RAGSDALE Attending Unavailable DESIRAE IRVING Referring Unavailabl e SAMSON RAGSDALE Primary Care Unavailable KHLOE IBARRA Referring Unavailable SAMSON RAGSDALE Primary Care Unavailable KHLOE IBARRA Attending Unavailable SAMSON RAGSDALE Primary Care Unavailable THEODORA HERNANDEZ Referring Unavailable SAMSON RAGSDALE Primary Care Unavailable THEODORA HERNANDEZ Attending Unavailable SAMSON RAGSDALE Primary Care Unavailable SAMSON RAGSDALE Attending Unavailable SAMSON RAGSDALE Primary Care Unavailable Samson Ragsdale Primary Care Unavailable Rich Gurrola Attending Unavailable Allergies Allergy Classification Reported Allergen(s) Allergy Type Date of Onset Reaction(s) Facility (4 sources) atorvastatin Drug Allergy 7 myalgias [facility] Work Phone: (4 sources) chondroitin sulfates / glucosamine Drug Allergy 7 rash [facility] Work Phone: (20 sources) ibuprofen; Translations: [ibuprofen] Drug Allergy 6 Rash [facility] Work Phone: (8 sources) ARTHRITIS MEDICATION; Translations: [ARTHRITIS MEDICATION] allergy to substance 7 rash [facility] Work Phone: (20 sources) atorvastatin; Translations: [ATORVASTATIN] Drug Allergy 8 Unknown [facility] (20 sources) Glucosamine; Translations: [GLUCOSAMINE] Drug Allergy 7 Unknown [facility] Work Phone: (4 sources) HMG-CoA reductase inhibitor; Translations: [[id number] REDUCTASE INHIBITORS] Drug Intolerance 5 Other: See Comments [facility] Work Phone: (20 sources) Pravastatin; Translations: [PRAVASTATIN] Drug Allergy 3 Other: See Comments [facility] Work Phone: (20 sources) rosuvastatin; Translations: [ROSUVASTATIN CALCIUM] Drug Allergy 3 Other: See Comments [facility] (20 sources) HMG-CoA reductase inhibitor Drug Intolerance 5 Other: See Comments [facility] Work Phone: (1 source) Naproxen; Translations: [naproxen] Drug Allergy [facility] (1 source) atorvastatin Drug Allergy 4 [facility] (1 source) Glucosamine Drug Allergy 4 [facility] Medications Current Medications Medication Drug Class(es) Dates Sig (Normalized) Sig (Original) acetaminophen 325 mg / HYDROcodone bitartrate 5 mg oral tablet (3 sources) Opioid Agonist Start: 11-26-2024 End: 12-03-2024 take 1 tablet by mouth twice daily as needed for pain HYDROcodone-acet aminophen (NORCO) 5-325 mg per tablet Indications: Upper back pain , Acute pain of both shoulders Take 1 tablet by mouth two times a day as needed for pain for up to 7 days. 14 tablet 11/26/2024 12/03/2024 Active allopurinol 100 mg oral tablet (20 sources) Xanthine Oxidase Inhibitor Start: 03-04-2020 End: 04-03-2024 take 1 tablet by mouth once daily allopurinol (ZYLOPRIM) 100 mg tablet Indications: Gout of multiple sites, unspecified cause, unspecified chronicity Take 1 tablet by mouth once daily. 90 tablet 3 04/03/2024 Active Comment on above: Take 1 tablet by sameer once daily. amLODIPine 10 mg oral tablet (20 sources) Dihydropyridine Calcium Channel Amrita Start: 05-28-2023 End: 08-26-2023 amLODIPine 5 mg oral tablet Dose : 5 mg = 1 tab(s), Oral, qDay, # 30 tab(s), 2 Refill(s), Pharmacy: [facility], 172.7, cm, 05/24/23 21:25:00 EDT, Height, kg, 05/24/23 21:25:00 EDT, Dosing Weight Start Date: 05/28/23 Stop Date: 08/26/23 Status: Ordered Start: 03-23-2022 End: 09-26-2024 take 1 tablet by mouth once daily in the evening amLODIPine (NORVASC) 10 mg tablet Indications: Essential hypertension, benign Take 1 tablet by mouth once daily. In the evening 90 tablet 3 09/26/2024 Active Start: 08-02-2019 End: 03-23-2022 take 1 tablet by mouth once daily amLODIPine (NORVASC) 5 mg tablet Indications: Essential hypertension, benign Take 1 tablet by mouth once daily. 90 tablet 3 06/16/2021 03/23/2022 Discontinued Start: 12-30-2016 take 1 tablet by sameer th once daily AMLODIPINE BESYLATE 5 MG TABS One tablet by mouth daily AMLODIPINE BESYLATE [id number] Yu Joshi RN Comment on above: Take 1 tablet by sameer th once daily. Take 1 tablet by sameer th once daily. In the evening aspirin 81 mg chewable tablet (5 sources) Nonsteroidal Anti-inflammatory Drug Start: 05-28-2023 End: 08-20-2024 [facility] Aspirin 81 mg oral tablet, (chewable) Dose : 81 mg = 1 tab(s), Oral, qDayM, # 90 tab(s), 4 Refill(s), Pharmacy: [facility], 172.7, cm, 05/24/23 21:25:00 EDT, Height, kg, 05/24/23 21:25:00 EDT, Dosing Weight Start Date: 05/28/23 Stop Date: 08/20/24 Status: Ordered Start: 12-30-2016 take 1 tablet by sameer th once daily ASPIRIN EC 81 MG TBEC One tablet by mouth daily ASPIRIN [id number] Yu Joshi RN atorvastatin 40 mg oral tablet (9 sources) HMG-CoA Reductase Inhibitor Start: 05-28-2023 End: 08-20-2024 atorvastatin 40 mg oral tablet Dose : 40 mg = 1 tab(s), Oral, qDay, # 90 tab(s), 4 Refill(s), Pharmacy: [facility], 172.7, cm, 05/24/23 21:25:00 EDT, Height, kg, 05/24/23 21:25:00 EDT, Dosing Weight Start Date: 05/28/23 Stop Date: 08/20/24 Status: Ordered Start: 12-30-2016 End: 02-16-2017 take 1 tablet by mouth once daily LIPITOR 80 MG TABS One tablet by mouth daily ATORVASTATIN CALCIUM [id number] Yu Joshi RN Blood-Glucose Meter (FREESTY LE LITE METER) monitoring kit (20 sources) Start: 06-27-2017 Blood-Glucose Meter (FREESTYLE LITE METER) monitoring kit 1 Each as directed. 1 Each 06/27/2017 Active Start: 06-27-2017 Blood-Glucose Meter (FREESTYLE LITE METER) monitoring kit 1 Each as directed. 1 Each 0 06/27/2017 Active Comment on above: 1 Each as directed. budesonide 3 mg delayed release oral capsule (4 sources) Corticosteroid Start: 4 End: 5 take 1 capsule by mouth every twenty-four hours budesonide, enteric coated (ENTOCORT EC) 3 mg 24 hr capsule Indications: Lymphocytic colitis Take 3 capsules by mouth once daily. 168 capsule 06/08/2024 08/03/2024 Active Start: 05-31-2024 End: 07-30-2024 take 1 tablet by mouth once daily budesonide 9 mg TaDE Indications: Collagenous colitis Take 1 tablet by mouth once daily. 30 tablet 1 05/31/2024 06/08/2024 Discontinued (Cost of medication) calcium carbonate 1500 mg or al tablet (5 sources) Start: 10-07-2020 Caltrate 600 m g oral tablet Dose : 1,200 mg = 2 tab(s), Oral, Daily, # 60 tab(s), 0 Refill(s) Start Date: 10/07/20 Status: Ordered Start: 01-18-2017 TUMS 500 MG CH EW ad directed CALCIUM CARBONATE ANTACID [id number] Pat Greenfield PA-C CALTRATE-600 PLUS VITAMIN D3 600 MG-200 UNIT ORAL TAB (20 sources) Start: 03-25-2005 take 2 tablets by mouth once daily CALTRATE-600 PLUS VITAMIN D3 600 MG-200 UNIT ORAL TAB TAKE TWO TABLETS DAILY. 0 03/25/2005 Active Comment on above: TAKE TWO TABLETS FELICE LY. carvedilol 25 mg oral tablet (20 sources) alpha-Adrenergi c Amrita, beta-Adrenergic Amrita Start: 05-28-2023 End: 08-26-2023 Coreg 6.25 mg oral tablet Dose : 6.25 mg = 1 tab(s), Oral, BIDM, # 60 tab(s), 2 Refill(s), Pharmacy: [facility], 172.7, cm, 05/24/23 21:25:00 EDT, Height, kg, 05/24/23 21:25:00 EDT, Dosing Weight Start Date: 05/28/23 Stop Date: 08/26/23 Status: Ordered Start: 01-13-2022 End: 09-26-2024 take 1 tablet by mouth twice daily carvedilol (COREG) 25 mg tablet Take 1 tablet by mouth two times a day. 180 tablet 3 09/26/2024 Active Start: 09-15-2021 End: 06-10-2022 take 1 tablet by mouth twice daily carvedilol (COREG) 6.25 mg tablet Take 1 tablet by mouth twice daily. Adding to 12.5 mg carvedilol dose twice a day 180 tablet 3 09/15/2021 06/10/2022 Discontinued Start: 09-15-2021 End: 03-23-2022 take 1 tablet by mouth twice daily at mealtime carvedilol (COREG) 12.5 mg tablet Take 1 tablet by mouth twice daily with meals. 180 tablet 1 09/15/2021 03/23/2022 Discontinued Start: 09-09-2020 End: 03-10-2021 take 1 tablet by mouth twice daily at mealtime carvedilol (COREG) 12.5 mg tablet Take 1 tablet by mouth twice daily with meals. 180 tablet 1 09/09/2020 03/10/2021 Discontinued Start: 01-24-2020 End: 07-17-2020 take 1 tablet by mouth twice daily at mealtime carvedilol (COREG) 12.5 mg tablet Take 1 tablet by mouth twice daily with meals. 180 tablet 1 01/24/2020 07/17/2020 Discontinued Comment on above: Take 1 tablet by sameer th twice daily with meals. Take 1 tablet by sameer th twice daily. Adding to 12.5 mg carvedilol dose twice a day Take 1 tablet by sameer th twice daily. Take 1 tablet by sameer th two times a day. cetirizine hydrochloride 10 mg oral tablet (20 sources) Histamine-1 Receptor Antagonist Start: 07-03-2013 Zyrtec 10 mg oral tablet (NF) Dose : 10 mg = 1 tab(s), Oral, Daily, PRN for allergy symptoms, # 10 tab(s), 0 Refill(s) Start Date: 07/03/13 Status: Ordered take 1 tablet by mouth once marvin y cetirizine HCl (ZYRTEC) 10 mg chewable tablet Take 10 mg by mouth once daily. Active Comment on above: Take 10 mg by mouth once daily. CHOLECALCIFEROL, VITAMIN D3, (VITAMIN D3 ORAL) (20 sources) take 600 mg by mouth once daily CHOLECALCIFEROL, VITAMIN D3, (VITAMIN D3 ORAL) Take 600 mg by mouth once daily. Active take 600 mg by mouth once daily CHOLECALCIFEROL, VITAMIN D3, (VITAMIN D3 ORAL) Take 600 mg by mouth once daily. 0 Active Comment on above: Take 600 mg by mouth once daily. clopidogrel 75 mg oral tablet (20 sources) P2Y12 Platelet Inhibitor Start: 01-26-20 End: 08-20-19 take 1 tablet by mouth once daily clopidogrel (PLAVIX) 75 mg tablet Indications: Hypertensive heart disease without heart failure Take 1 tablet by mouth once daily. 90 tablet 3 04/27/2024 Active Comment on above: Take 1 tablet by sameer once daily. Co Q-10 100 mg oral capsule (1 source) Start: 10-13-19 Co Q-10 100 mg oral capsule Dose : 100 mg = 1 cap(s), Oral, Daily, 0 Refill(s) Start Date: 10/12/22 Status: Ordered diclofenac sodium 0.01 mg/mg topical gel (20 sources) Nonsteroidal Anti-inflammatory Drug Start: 02-07-20 apply 2 g topically four times daily diclofenac sodium (VOLTAREN) 1 % topical gel Apply 2 g to affected area four times daily. 100 g 02/07/2020 Active Comment on above: Apply 2 g to affecte d area four times daily. doxycycline hyclate 100 mg oral tablet (3 sources) Tetracycline-class Drug Start: 01-10-20 End: 01-17-20 take 1 tablet by mouth twice daily doxycycline (VIBRA-TABS) 100 mg tablet Take 1 tablet by mouth two times a day for 7 days. 14 tablet 01/09/2025 01/16/2025 Active Start: 11-30-2022 End: 12-07-2022 take 1 tablet by mouth twice daily doxycycline monohydrate 100 mg tablet Indications: Sinobronchitis Take 1 tablet by mouth twice daily for 7 days. 14 tablet 0 11/30/2022 12/07/2022 Active Start: 07-28-2022 End: 08-04-2022 take 1 tablet by mouth twice daily doxycycline (VIBRA-TABS) 100 mg tablet Take 1 tablet by mouth twice daily for 7 days. 14 tablet 0 07/28/2022 08/04/2022 Active Comment on above: Take 1 tablet by sameer th twice daily for 7 days. ferrous sulfate 325 mg oral tablet (20 sources) Start: 06-27-2017 IRON (ferrous sulfate 325 mg) 65 mg oral tablet Dose : 325 mg = 1 tab(s), Oral, qDay, Take with food., # 60 tab(s), 3 Refill(s) Start Date: 10/07/20 Status: Ordered take 1 tablet by mouth every oth er day ferrous sulfate 325 mg (65 mg iron) tablet Take 325 mg by mouth two times a day. Taking 1 every other day Active Comment on above: Take 325 mg by mouth twice daily. Take 325 mg by mouth two times a day. Taking 1 every other day flaxseed oil (OMEGA 3 ORAL) (20 sources) flaxseed oil (OM EGA 3 ORAL) Take by mouth. Active flaxseed oil (OM EGA 3 ORAL) Take by mouth. 0 Active Comment on above: Take by mouth. furosemide 40 mg oral tablet (20 sources) Loop Diuretic Start: 12-30-2016 take 1 tablet by mouth once daily furosemide (LASIX) 40 mg tablet Take 1 tablet by mouth once daily. 90 tablet 3 04/19/2017 Active Start: 12-30-2016 take 1 tablet by sameer twice daily LASIX 40 MG TABS One tablet by mouth twice daily FUROSEMIDE [id number] Dustin Garcia SCIENTIST Comment on above: Take 1 tablet by sameer once daily. hydrocortisone 25 mg/ml topical cream (20 sources) Corticosteroid Start: 2017 hydrocortisone 2.5 % cream Indications: Psoriasis Apply 1 application to affected area twice daily. Location: face 30 g 2 05/01/2018 Active Comment on above: Apply 1 application to affected area twice daily. Location: face 3 ml insulin glargine 100 unt/ml pen injector (20 sources) Insulin Analog Start: 2022 inject 10 [IU] by subcutaneous injection once daily at bedtime insulin glargine (BASAGLAR KWIKPEN U-100 INSULIN) 100 unit/mL (3 mL) Indications: diabetes mellitus Inject 10 Units subcutaneously daily at bedtime. 5 Each 3 10/27/2022 Active Start: 10-07-2020 inject 10 [IU] by hart bcutaneous injection once daily Basaglar KwikPen 100 units/mL subcutaneous solution Subcutaneous, qDay, 10 units daily, 0 Refill(s) Start Date: 10/07/20 Status: Ordered Start: 01-25-2020 End: 01-27-2024 inject 10 [IU] by subcutaneous injection once daily at bedtime insulin glargine (BASAGLAR KWIKPEN U-100 INSULIN) 100 unit/mL (3 mL) Indications: diabetes mellitus Inject 10 Units subcutaneously daily at bedtime. 5 Each 3 01/27/2024 Active Comment on above: Inject 10 Units subc utaneously daily at bedtime. 24 hr isosorbide mononitrate 30 mg extended release oral tablet (20 sources) Start: 06-16-20 End: 04-27-20 take 1 tablet by mouth once daily isosorbide mononitrate ER (IMDUR) 30 mg 24 hr tablet Indications: Hypertensive heart disease without heart failure Take 1 tablet by mouth once daily. 90 tablet 3 04/27/2024 Active Start: 10-07-2020 isosorbide mon onitrate 30 mg oral tablet, extended release Dose : 30 mg = 1 tab(s), Oral, Daily, # 30 tab(s), 0 Refill(s) Start Date: 10/07/20 Status: Ordered Start: 01-25-2020 End: 01-13-2021 take 1 tablet by mouth once daily isosorbide mononitrate ER (IMDUR) 30 mg 24 hr tablet Indications: Hypertensive heart disease without heart failure Take 1 tablet by mouth once daily. 90 tablet 3 01/25/2020 01/13/2021 Discontinued Start: 03-04-2017 take 1 tablet by sameer th once daily ISOSORBIDE MONONITRATE ER 30 MG [id number] One tablet by mouth daily (Imdur) ISOSORBIDE MONONITRATE [id number] Aniceto Kenyon MD Comment on above: Take 1 tablet by sameer th once daily. losartan potassium 50 mg oral tablet (20 sources) Angiotensin 2 Receptor Amrita Start: 09-26-2023 End: 09-26-2024 take 0.5 tablet by mouth once daily losartan (COZAAR) 50 mg tablet Indications: CKD (chronic kidney disease) stage 4, GFR 15-29 ml/min (HCC) Take 0.5 tablets by mouth once daily. 45 tablet 3 09/26/2024 Active Start: 05-28-2023 End: 08-26-2023 losartan 25 mg oral tablet D ose : 25 mg = 1 tab(s), Oral, qDay, # 30 tab(s), 2 Refill(s), Pharmacy: [facility], 172.7, cm, 05/24/23 21:25:00 EDT, Height, kg, 05/24/23 21:25:00 EDT, Dosing Weight Start Date: 05/28/23 Stop Date: 08/26/23 Status: Ordered Start: 10-26-2019 End: 09-26-2023 take 1 tablet by mouth once daily losartan (COZAAR) 50 mg tablet Indications: CKD (chronic kidney disease) stage 4, GFR 15-29 ml/min (HCC) Take 1 tablet by mouth once daily. 90 tablet 3 06/10/2022 09/26/2023 Discontinued Start: 12-30-2016 take 1 tablet by sameer th once daily LOSARTAN POTASSIUM 25 MG TABS One tablet by mouth daily LOSARTAN POTASSIUM [id number] Yu Joshi RN Comment on above: Take 1 tablet by sameer th once daily. Take 0.5 tablets by mouth once daily. Multivitamin preparation (1 source) Start: 07-03-20 take 1 tablet by mouth once daily Multivitamin Dose = 1 tab(s), Oral, Daily, occuvite, 0 Refill(s) Start Date: 07/03/13 Status: Ordered nitroglycerin 0.4 mg sublingual tablet (1 source) Nitrate Vasodilator Start: 07-03-20 Nitrostat 0.4 mg sublingual tablet Dose : 0.4 mg = 1 tab(s), Sublingual, q5min, PRN Chest pain, # 25 tab(s), 3 Refill(s) Start Date: 07/03/13 Status: Ordered [place]-3 1000 mg oral capsule (1 source) Start: 10-13-19 take 1 capsule by mouth once daily [place]-3 1000 mg oral capsule mg = cap(s), Oral, qDay, 0 Refill(s) Start Date: 10/12/22 Status: Ordered potassium chloride 10 meq extended release oral capsule (20 sources) Start: 10-08-19 potassium chloride 10 mEq oral capsule, extended release Dose : 10 mEq = 1 cap(s), Oral, Daily, take with food., # 60 cap(s), 0 Refill(s) Start Date: 10/07/20 Status: Ordered Start: 06-01-2017 End: 06-16-2021 KLOR-CON M10 10 mEq tablet T abel 10 mEq by mouth once daily. 3 06/01/2017 06/16/2021 Discontinued Start: 04-19-2017 take 1 tablet by sameer th once daily potassium chloride (KLOR-CON 10) 10 mEq tablet Take 1 tablet by mouth once daily. 90 tablet 3 04/19/2017 Active Start: 12-30-2016 End: 03-07-2017 take 1 tablet by mouth once daily POTASSIUM CHLORIDE ER 10 MEQ CR-TABS One tablet by mouth daily POTASSIUM CHLORIDE [id number] Pat Greenfield PA-C Comment on above: Take 1 tablet by sameer th once daily. predniSONE 10 mg oral tablet (6 sources) Start: 11-26-2024 End: 12-11-2024 predniSONE (DELTASONE) 10 mg tablet Take 4 tabs daily x5 days, then 2 tabs daily for 5 days, then 1 tab daily for 5 days. 35 tablet 11/26/2024 12/11/2024 Active Start: 11-30-2022 End: 12-05-2022 take 2 tablets by mouth once daily predniSONE (DELTASONE) 20 mg tablet Indications: Sinobronchitis Take 2 tablets by mouth once daily for 5 days. 10 tablet 0 11/30/2022 12/05/2022 Active Start: 07-28-2022 End: 08-02-2022 take 2 tablets by mouth once daily predniSONE (DELTASONE) 20 mg tablet Take 2 tablets by mouth once daily for 5 days. 10 tablet 0 07/28/2022 08/02/2022 Comment on above: Take 2 tablets by mo [facility] once daily for 5 days. triamcinolone acetonide 0.055 mg/actuat metered dose nasal spray (20 sources) Corticosteroid Start: 01-10-20 25 take 2 spray(s) nasal route once daily triamcinolone acetonide (NASACORT ALLERGY) 55 mcg nasal inhaler Use 2 sprays in each nostril once daily. 16.9 mL 01/09/2025 Active Start: 07-09-2016 triamcinolone acetonide (KENALOG) 0.1 % cream Apply 1 application to affected area twice daily as needed (rash). Apply sparingly to area for rash/itching. 60 g 3 07/09/2016 Active Comment on above: Apply 1 application to affected area twice daily as needed (rash). Apply sparingly to area for rash/itching. ubidecarenone 100 mg oral capsule (20 sources) Start: 5 take 1 capsule by mouth once coenzyme Q10 (COENZYME Q-10) 100 mg cap capsule Take 1 capsule by mouth. 0 10/09/2014 Active Comment on above: Take 1 capsule by [facility]. Vitamin D3 (1 source) Start: Vitamin D3 Dose : 5,000 unit(s) = 1 cap(s), Oral, qDay, # 30 cap(s), 0 Refill(s) Start Date: 10/07/20 Status: Ordered Zinc Sulfate (6 sources) take 1 tablet by mouth once daily zinc sulfate (ZINC-15 ORAL) Take 1 tablet by mouth once daily. Active Completed/Discontinued Medications Medication Drug Class(es) Dates Sig (Normalized) Sig (Original) acetaminophen (8 sources) Start: 12-30-2016 End: 01-18-2017 TYLENOL ARTHRITIS PAIN 650 MG CR-TABS As needed ACETAMINOPHEN Pat Greenfield PA-C Start: 12-30-2016 TYLENOL ARTHRI TIS PAIN 650 MG CR-TABS As needed ACETAMINOPHEN Yu Joshi RN benzonatate 100 mg oral capsule (20 sources) Non-narcotic Antitussive Start: 11-25-2021 End: 04-13-2024 take 1 capsule by mouth every eight hours as needed benzonatate (TESSALON PERLES) 100 mg capsule Take 1 capsule by mouth three times daily as needed for cough. 21 capsule 11/25/2021 04/13/2024 Discontinued (Discontinued by Patient) Comment on above: Take 1 capsule by [facility] three times daily as needed for cough. calcium (4 sources) Phosphate Binder, Calcium Start: 01-18-2017 take 1 tablet by mouth once daily CALCIUM 500 MG TABS One tablet by mouth daily CALCIUM [id number] Pat Greenfield PA-C calcium carbonate / vitamin D (8 sources) Start: 12-30-2016 take 1 tablet by mouth once daily CALTRATE 600+D 600-400 MG-UNIT TABS One tablet by mouth daily CALCIUM CARBONATE-VITAMIN D [id number] Yu Joshi RN Start: 12-30-2016 End: 01-18-2017 take 1 tablet by mouth once daily CALTRATE 600+D 600-400 MG-UNIT TABS One tablet by mouth daily CALCIUM CARBONATE-VITAMIN D [id number] Pat Greenfield PA-C cholecalciferol 2000 unt oral tablet (20 sources) Vitamin D Start: 01-18-2017 take 1 tablet by mouth once daily VITAMIN D 2000 UNIT TABS One tablet by mouth daily CHOLECALCIFEROL [id number] Pat Greenfield PA-C take 1 tablet by mouth twice felice ly cholecalciferol (VITAMIN D3) 5,000 unit tab Take 5,000 Units by mouth twice daily. Active Comment on above: Take 5,000 Units by mouth twice daily. codeine phosphate 2 mg/ml / guaiFENesin 20 mg/ml oral solution (1 source) Opioid Agonist Start: 2 End: 3 take 10 mL by mouth once daily at bedtime codeine-guaiFENesin (GUAIFENESIN AC) 10-100 mg/5 mL syrup Indications: Bronchitis Take 10 mL by mouth daily at bedtime for 5 days. 50 mL 0 07/28/2022 08/02/2022 Comment on above: Take 10 mL by mouth daily at bedtime for 5 days. COENZYME Q10 (4 sources) Start: 7 take 1 tablet by mouth once daily CO Q 10 100 MG CAPS One tablet by mouth daily COENZYME Q10 [id number] Nolan Triana MD COMPOUNDED PRESCRIPTION (20 sources) End: COMPOUNDED PRESCRIPTION [facility] Kidney Bladder 09/09/2020 Discontinued End: 09-09-[address] Garlic Parsley 09/09/2020 Discontinued End: 04-13-2024 COMPOUNDED PRESCRIPTION k[facility] ic Cholesterol 104 04/13/2024 Discontinued (Discontinued by Patient) COMPOUNDED PRESC RIPTION kyloic Cholesterol 104 Active COMPOUNDED PRESC RIPTION k[facility]oic Cholesterol 104 0 Active Comment on above: kyloic Cholesterol 1 04 Cranberry preparation (20 sources) Non-Standardized Food Allergenic Extract, Non-Standardized Plant Allergenic Extract End: 05-09-2024 CRANBERRY 05/09/2024 Discontinued CRANBERRY Active CRANBERRY 24 hr dilTIAZem hydrochloride 120 mg extended release oral capsule (4 sources) Calcium Channel Amrita Start: 02-21-2017 take 1 tablet by mouth once daily CARDIZEM CD 120 MG [id number] One tablet by mouth daily DILTIAZEM HCL COATED BEADS [id number] Rich Sanchez MD ezetimibe 10 mg oral tablet (9 sources) Dietary Cholesterol Absorption Inhibitor Start: 01-23-2019 End: 09-09-2020 take 1 tablet by mouth once daily ezetimibe (ZETIA) 10 mg tablet Take 1 tablet by mouth once daily. 90 tablet 3 01/23/2019 09/09/2020 Discontinued Start: 12-30-2016 End: 01-18-2017 take 1 tablet by mouth once daily ZETIA 10 MG TABS One tablet by mouth daily EZETIMIBE [id number] Pat Greenfield PA-C famotidine 20 mg oral tablet (20 sources) Histamine-2 Receptor Antagonist Start: 10-07-2020 famotidine 10 mg ora l tablet Dose : 20 mg = 2 tab(s), Oral, Daily, as needed, # 180 tab(s), 0 Refill(s) Start Date: 10/07/20 Status: Ordered Start: 07-27-2019 End: 04-13-2024 take 1 tablet by mouth every twenty-four hours as needed famotidine (PEPCID) 20 mg tablet Take 1 tablet by mouth at bedtime as needed. 90 tablet 3 06/16/2021 Active Comment on above: Take 1 tablet by sameer th at bedtime as needed. gemfibrozil 600 mg oral tablet (5 sources) Peroxisome Proliferator Receptor alpha Agonist Start: 7 End: 1 take 1 tablet by mouth twice daily gemfibrozil (LOPID) 600 mg tablet Take 1 tablet by mouth twice daily. 180 tablet 3 04/19/2017 09/09/2020 Discontinued metoprolol tartrate 25 mg oral tablet (2 sources) beta-Adrenergic Amrita Start: 7 End: 1 metoprolol tartrate, short acting, (LOPRESSOR) 25 mg tablet TAKE 1/2 (ONE-HALF) OF A TABLET BY MOUTH TWICE DAILY 3 05/19/2017 06/16/2021 Discontinued milk thistle/NAC/dandel/t urmer (LIVER COMPLEX ORAL) (20 sources) End: 4 milk thistle/NAC/dandel/t urmer (LIVER COMPLEX ORAL) Take by mouth. 04/13/2024 Discontinued (Discontinued by Patient) milk thistle/NAC /dandel/turmer (LIVER COMPLEX ORAL) Take by mouth. Active milk thistle/NAC /dandel/turmer (LIVER COMPLEX ORAL) Take by mouth. 0 Active Comment on above: Take by mouth. MULTIPLE VITAMINS-MINERALS (4 sources) Start: 04-20-2017 take 1 tablet by mouth once daily DAILY MULTIVITAMIN CAPS One tablet by mouth daily MULTIPLE VITAMINS-MINERALS [id number] Nolan Tirana MD ONE DAILY MULTI-VITAMIN ORAL TAB (20 sources) Start: 03-25-2005 End: 05-09-2024 take 1 tablet by mouth once daily ONE DAILY MULTI-VITAMIN ORAL TAB Take one(1) tablet daily. 0 03/25/2005 05/09/2024 Discontinued Start: 03-25-2005 take 1 tablet by sameer th once daily ONE DAILY MULTI-VITAMIN ORAL TAB Take one(1) tablet daily. 0 03/25/2005 Active Comment on above: Take one(1) tablet d aily. perflutren lipid microspheres 1.3 mL in NaCl (PF) 0.9% 10 mL injection (DEFINITY) (20 sources) Start: 03-23-2023 End: 05-09-2024 perflutren lipid microspheres 1.3 mL in NaCl (PF) 0.9% 10 mL injection (DEFINITY) Start: 03-23-2023 End: 06-21-2024 perflutren lipid microsphere s 1.3 mL in NaCl (PF) 0.9% 10 mL injection (DEFINITY) polyethylene glycol 3350 [id number] mg / potassium chloride 2970 mg / sodium bicarbonate 6740 mg / sodium chloride 5860 mg / sodium sulfate 78153 mg powder for oral solution (1 source) Osmotic Laxative Start: 04-13-2024 End: 04-13-2024 peg 3350-Electrolytes (GOLYTELY) 236-22.74-6.74 -5.86 gram suspension Indications: Chronic diarrhea , Generalized abdominal pain Take 4,000 mL by mouth one time only for 1 dose. Refer to printed prep instructions from your provider. 4000 mL 04/13/2024 04/13/2024 POLYETHYLENE GLYCOL 3350 (8 sources) Start: 12-30-2016 MIRALAX PACK T abel as directed POLYETHYLENE GLYCOL 3350 [id number] Yu Joshi RN Start: 12-30-2016 End: 01-18-2017 MIRALAX PACK Take as directe d POLYETHYLENE GLYCOL 3350 [id number] Pat Greenfield PA-C raNITIdine 150 mg oral tablet (3 sources) Histamine-2 Receptor Antagonist Start: 06-27-2017 take 1 tablet by mouth at bedtime RANITIDINE HCL 150 MG TABS One tablet by mouth at bedtime. RANITIDINE HCL [id number] Rich Sanchez MD 125 ml sodium chloride 9 mg/ml prefilled syringe (20 sources) Start: 03-23-2023 End: 06-21-2024 sodium chloride 0.9 % (flush) 10 mL (BD POSIFLUSH) tamsulosin hydrochloride 0.4 mg oral capsule (8 sources) alpha-Adrenergic Amrita Start: 12-30-2016 End: 01-18-2017 take 1 tablet by mouth once daily TAMSULOSIN HCL 0.4 MG CAPS One tablet by mouth daily TAMSULOSIN HCL [id number] Pat Greenfield PA-C ticagrelor 90 mg oral tablet (12 sources) Start: 12-30-2016 End: 02-16-2017 take 1 tablet by mouth twice daily BRILINTA 90 MG TABS One tablet by mouth twice daily TICAGRELOR [id number] Yu Joshi RN TRUE METRIX GLUCOSE METER misc (2 sources) Start: 06-27-2017 End: 06-16-2021 TRUE METRIX GLUCOSE METER misc 1 Each as directed. 0 06/27/2017 06/16/2021 Discontinued VIT C/VIT E/LUTEIN/MIN/OMEGA-3 (OCUVITE ORAL) (20 sources) End: 04-13-2024 VIT C/VIT E/LUTEIN/MIN/OMEGA -3 (OCUVITE ORAL) Take by mouth. 04/13/2024 Discontinued (Discontinued by Patient) VIT C/VIT E/LUTE IN/MIN/OMEGA-3 (OCUVITE ORAL) Take by mouth. Active VIT C/VIT E/LUTE IN/MIN/OMEGA-3 (OCUVITE ORAL) Take by mouth. 0 Active Comment on above: Take by mouth. Problems Active Problems Problem Classification Problem Date Documented Date Episodic/Chronic Abdominal hernia (20 sources) Diaphragmatic hernia; Translations: [Diaphragmatic hernia without obstruction or gangrene] 03-25-2005 Episodic Acute and chronic tonsillitis (1 source) Tonsillitis 07-03-2013 Episodic Acute myocardial infarction (4 sources) Acute myocardial infarction of inferior wall; Translations: [ST elevation (STEMI) myocardial infarction involving other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inferior wall] Onset: 12-30-2016 12-30-2016 Chronic Aortic; peripheral; and visceral artery aneurysms (20 sources) Abdominal aortic aneurysm, without rupture; Translations: [Abdominal aortic aneurysm without rupture] Onset: 01-04-2012 Resolved: 06-05-2020 12-30-2016 Chronic Cancer of prostate (20 sources) Malignant tumor of prostate; Translations: [Malignant neoplasm of prostate] Onset: 04-20-2017 04-20-2017 Chronic Cancer of prostate (20 sources) History of malignant neoplasm of prostate; Translations: [Personal history of malignant neoplasm of prostate] 06-05-2020 Episodic Cardiac dysrhythmias (4 sources) Sinus bradycardia; Translations: [Bradycardia, unspecified] Onset: 01-18-2017 01-18-2017 Chronic Chronic kidney disease (20 sources) Chronic kidney disease stage 3; Translations: [Chronic kidney disease stage 4] Onset: 12-30-2016 Resolved: 09-20-2022 12-30-2016 Chronic Chronic obstructive pulmonary disease and bronchiectasis (1 source) Bronchitis; Translations: [Bronchitis, not specified as acute or chronic] Episodic Conduction disorders (20 sources) Complete atrioventricular block; Translations: [Atrioventricular block, complete] Onset: 01-25-2017 01-25-2017 Chronic Coronary atherosclerosis and other heart disease (20 sources) Atherosclerotic heart disease of [place] coronary artery without angina pectoris; Translations: [Angina pectoris] Onset: 03-23-2011 Resolved: 09-20-2022 12-30-2016 Chronic Comment on above: 07/03/13-Dr Mijares -PTCA and 2.25x23 mm length Xience stent to the Left Circumflex, 01/26/2008-PTCA/STENT OF THE DIAGONAL USING A TWO 2.25 PIXEL STENT ONE 18MM IN LENGTH AND ONE 13MM IN LENGTH. TAXUS DRUG ELUTING STENT 3.0 X 12MM DEPLOYED IN THE LEFT MAIN TRUNK. 1994-CABG X 1 CASTILLO TO THE LAD-. Deficiency and other anemia (20 sources) Iron deficiency anemia due to blood loss; Translations: [Iron deficiency anemia secondary to blood loss (chronic)] Onset: 08-07-2018 08-07-2018 Chronic Deficiency and other anemia (1 source) Iron deficiency anemia; Translations: [Other iron deficiency anemias] Episodic Delirium, dementia, and amnestic and other cognitive disorders (20 sources) Dementia associated with another disease; Translations: [Dementia in other diseases classified elsewhere, unspecified severity, with mood disturbance] Onset: 10-07-2023 Chronic Diabetes mellitus with complications (20 sources) Type 2 diabetes mellitus; Translations: [Type 2 diabetes mellitus with diabetic chronic kidney disease] Onset: 05-01-2018 06-05-2020 Chronic Diabetes mellitus without complication (20 sources) Type 2 diabetes mellitus without complication; Translations: [Type 2 diabetes mellitus without complications] Onset: 06-09-2020 06-09-2020 Chronic Disorders of lipid metabolism (20 sources) Hyperlipidemia; Translations: [Pure hypercholesterolemia] Onset: 12-30-2016 12-30-2016 Chronic Comment on above: 03/04/14 CHOL 211 TR IG 166 HDL 44 LDL 134 Esophageal disorders (4 sources) Gastroesophageal reflux disease; Translations: [Gastroesophageal reflux disease without esophagitis] Onset: 05-23-2024 07-03-2013 Chronic Essential hypertension (20 sources) Hypertensive disorder; Translations: [Benign essential hypertension] Onset: 10-21-2006 Resolved: 06-05-2020 12-30-2016 Chronic Comment on above: Continue current med ications. Gout and other crystal arthropathies (20 sources) Gouty arthritis of right foot; Translations: [Gout, unspecified] Onset: 01-04-2012 Resolved: 09-20-2022 09-16-2021 Chronic Hypertension with complications and secondary hypertension (20 sources) Hypertensive heart disease; Translations: [Hypertensive heart disease without heart failure] Onset: 09-20-2022 01-30-2018 Chronic Mood disorders (1 source) Depressive disorder 07-03-2013 Chronic Noninfectious gastroenteritis (3 sources) Collagenous colitis; Translations: [Collagenous colitis] Onset: 05-31-2024 05-30-2024 Chronic Nutritional deficiencies (20 sources) Vitamin D deficiency; Translations: [Vitamin D deficiency, unspecified] Onset: 03-23-2023 03-23-2023 Chronic Occlusion or stenosis of precerebral arteries (20 sources) Carotid artery occlusion; Translations: [Occlusion and stenosis of unspecified carotid artery] Onset: 10-29-2009 10-29-2009 Chronic Osteoarthritis (20 sources) Degenerative joint disease involving multiple joints; Translations: [Polyosteoarthritis, unspecified] 03-25-2005 Chronic Other aftercare (2 sources) 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 (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) use of insulin; Translations: [Type 2 diabetes mellitus without complication, with long-term current use of insulin (HCC)] Onset: 09-20-2022 Episodic Other ear and sense organ disorders (1 source) Hearing finding; Translations: [Other specified hearing loss, bilateral] 10-07-2023 Chronic Other ear and sense organ disorders (12 sources) Hearing loss; Translations: [Unspecified hearing loss, unspecified ear] Onset: 10-07-2023 10-07-2023 Chronic Other inflammatory condition of skin (20 sources) Psoriasis; Translations: [Psoriasis, unspecified] Onset: 05-01-2018 05-01-2018 Chronic Other lower respiratory disease (2 sources) Other forms of dyspnea; Translations: [Other forms of dyspnea] Onset: 05-24-2023 Episodic Other lower respiratory disease (2 sources) Cough; Translations: [Cough] 11-25-2021 Episodic Other lower respiratory disease (2 sources) Cough; Translations: [Acute cough] 01-09-2025 Episodic Other nervous system disorders (20 sources) Carpal tunnel syndrome; Translations: [Carpal tunnel syndrome, unspecified upper limb] Onset: 07-02-2005 07-02-2005 Chronic Other nervous system disorders (5 sources) Polyneuropathy; Translations: [Other specified polyneuropathies] 03-23-2023 Chronic Other nervous system disorders (20 sources) Peripheral nerve disease ; Translations: [Polyneuropathy, unspecified] Onset: 03-23-2023 03-23-2023 Chronic Other non-traumatic joint disorders (20 sources) Arthropathy of multiple joints; Translations: [Arthropathy, unspecified] Onset: 06-09-2020 06-09-2020 Chronic Other non-traumatic joint disorders (4 sources) Shoulder pain; Translations: [Pain in right shoulder] 11-26-2024 Episodic Other non-traumatic joint disorders (1 source) Pain in right shoulder; Translations: [Acute pain of both shoulders] Onset: 11-26-2024 Episodic Other non-traumatic joint disorders (1 source) Pain in left shoulder; Translations: [Acute pain of both shoulders] Onset: 11-26-2024 Episodic Other nutritional; endocrine; and metabolic disorders (20 sources) Hypoalbuminemia; Translations: [Other disorders of plasma-protein metabolism, not elsewhere classified] Onset: 05-01-2018 05-01-2018 Chronic Other nutritional; endocrine; and metabolic disorders (20 sources) Hypercalcemia; Translations: [Hypercalcemia] Onset: 06-09-2020 06-09-2020 Chronic Other nutritional; endocrine; and metabolic disorders (1 source) Overweight 10-03-2020 Episodic Other upper respiratory infections (1 source) Chronic sinusitis; Translations: [Chronic sinusitis, unspecified] Chronic Other upper respiratory infections (2 sources) Acute maxillary sinusitis; Translations: [Acute maxillary sinusitis, unspecified] Onset: 01-09-2025 01-09-2025 Episodic Peripheral and visceral atherosclerosis (5 sources) Peripheral vascular disease, unspecified; Translations: [Peripheral vascular disease] Onset: 12-30-2016 12-30-2016 Chronic Pneumonia (except that caused by tuberculosis or sexually transmitted disease) (1 source) Pneumonia 07-03-2013 Episodic Spondylosis; intervertebral disc disorders; other back problems (20 sources) Lumbosacral radiculopathy; Translations: [Radiculopathy, lumbosacral region] Onset: 11-24-2009 11-24-2009 Episodic Unclassified (4 sources) Long-term drug therapy; Translations: [Other long term acute care registered nurse (current) drug therapy] Onset: 12-30-2016 12-30-2016 Unclassified (4 sources) Placement of stent in coronary artery ; Translations: [Presence of other cardiac implants and grafts] Onset: 12-30-2016 12-30-2016 Unclassified (4 sources) Coronary artery bypass graft x 1; Translations: [Presence of aortocoronary bypass graft] Onset: 12-30-2016 12-30-2016 Unclassified (4 sources) Percutaneous transluminal coronary angioplasty ; Translations: [Presence of coronary angioplasty implant and graft] Onset: 04-07-2017 04-07-2017 Unclassified (1 source) Eye glasses, device (physical object) 07-03-2013 Unclassified (18 sources) Hearing loss; Translations: [Impaired hearing] Onset: 10-07-2023 10-07-2023 Unclassified (1 source) Acute cough; Translations: [Acute cough] Onset: 01-09-2025 Past or Other Problems Problem Classification Problem Date Documented Da te Episodic/Chronic Abdominal pain (20 sources) Generalized abdominal pain; Translations: [Generalized abdominal pain] Onset: 05-01-2018 Resolved: 06-05-2020 06-05-2020 Episodic Coronary atherosclerosis and other heart disease (20 sources) Stented coronary artery; Translations: [Presence of coronary angioplasty implant and graft] Onset: 09-26-2013 09-26-2013 Episodic Deficiency and other anemia (20 sources) Anemia; Translations: [Anemia, unspecified] Onset: 04-20-2017 04-20-2017 Episodic Diabetes mellitus without complication (20 sources) Impaired fasting glycemia; Translations: [Impaired fasting glucose] Onset: 01-06-2009 Resolved: 07-04-2014 07-04-2014 Episodic Fluid and electrolyte disorders (20 sources) Hypokalemia; Translations: [Hypokalemia] Onset: 08-03-2017 08-03-2017 Episodic Gastritis and duodenitis (20 sources) Acute gastritis; Translations: [Acute gastritis without bleeding] Onset: 07-10-2007 Resolved: 06-05-2020 06-05-2020 Episodic Gastrointestinal hemorrhage (20 sources) Hematochezia; Translations: [Melena] Onset: 05-01-2018 Resolved: 06-05-2020 06-05-2020 Episodic Malaise and fatigue (20 sources) Fatigue; Translations: [Other fatigue] Onset: 07-04-2017 Resolved: 06-05-2020 06-05-2020 Episodic Noninfectious gastroenteritis (20 sources) Chronic diarrhea; Translations: [Noninfective gastroenteritis and colitis, unspecified] Onset: 03-29-2024 03-26-2024 Episodic Other bone disease and musculoskeletal deformities (20 sources) Pain of left shoulder blade; Translations: [Other specified disorders of bone, shoulder] Onset: 06-09-2020 Resolved: 09-20-2022 06-09-2020 Episodic Other connective tissue disease (20 sources) Tenosynovitis; Translations: [Other synovitis and tenosynovitis, unspecified hand] Onset: 06-09-2005 06-09-2005 Episodic Other connective tissue disease (20 sources) Pain in right foot; Translations: [Pain in right foot] Onset: 08-07-2018 Resolved: 09-20-2022 08-07-2018 Episodic Other disorders of stomach and duodenum (20 sources) Disorder of function of stomach; Translations: [Other diseases of stomach and duodenum] Onset: 05-11-2007 Resolved: 06-05-2020 06-05-2020 Episodic Other ear and sense organ disorders (20 sources) Bilateral tinnitus; Translations: [Tinnitus, bilateral] Onset: 10-07-2023 10-07-2023 Episodic Other gastrointestinal disorders (20 sources) Diarrhea; Translations: [Diarrhea, unspecified] Onset: 07-04-2017 Resolved: 06-05-2020 10-07-2023 Episodic Other gastrointestinal disorders (20 sources) Constipation; Translations: [Constipation, unspecified] Onset: 05-11-2007 Resolved: 06-05-2020 06-05-2020 Episodic Other inflammatory condition of skin (20 sources) Vasculitis of the skin; Translations: [Vasculitis limited to the skin, unspecified] Onset: 05-01-2018 05-01-2018 Episodic Other lower respiratory disease (4 sources) Dyspnea on exertion; Translations: [Other forms of dyspnea] Onset: 12-31-2016 12-31-2016 Episodic Other lower respiratory disease (20 sources) Dyspnea; Translations: [Shortness of breath] Onset: 03-23-2023 03-23-2023 Episodic Other lower respiratory disease (20 sources) Chest pain on breathing; Translations: [Chest pain on breathing] Onset: 03-23-2023 03-23-2023 Episodic Other male genital disorders (20 sources) Disorder of prostate; Translations: [Disorder of prostate, unspecified] Onset: 02-06-2019 Resolved: 06-05-2020 06-05-2020 Episodic Other non-traumatic joint disorders (20 sources) Pain in right knee; Translations: [Pain in joint, lower leg] Onset: 03-23-2023 03-23-2023 Episodic Other skin disorders (20 sources) Actinic keratosis; Translations: [Actinic keratosis] Onset: 08-28-2019 08-28-2019 Episodic Unclassified (10 sources) Cardiovascular stress test abnormal; Translations: [Patient encounter status] Onset: 03-23-2017 03-23-2017 Episodic Unclassified (12 sources) Edema of lower extremity; Translations: [Body mass index (BMI) 27.0-27.9, adult] Onset: 12-31-2016 02-16-2017 Episodic Unclassified (20 sources) Type 2 diabetes mellitus without complication; Translations: [Diabetes mellitus type 2, uncontrolled, without complications] Onset: 09-07-2012 Resolved: 06-05-2020 06-05-2020 Results Test Name Value Interpretation Reference Range Facility [facility] 01-09-2025 [facility] Office Visit ([facility] ) -- ABRAHAM GAGE ([id number]) 1940 M Date Time Provider Department 01/09/25 2:15 PM KHLOE IBARRA [facility] During your visit today, we recorded the following information about you: Temperature Pulse Respiration Blood pressure 97.2 degrees 64/minute 18/minute 132/72 Weight 74.8 kg Glenn KhloeSAMUEL mc 01/09/2025 4:53 PM Signed [facility] Subjective Abraham Gage is a 84 year old male. Patient presents with: Cough: Cough, chest congestion and SOB x 10 days Cough Associated symptoms include rhinorrhea. Pertinent negatives include no chest pain, no chills, no shortness of breath and no wheezing. Patient is a pleasant 84 year old male that presents with cough, chest congestion and shortness of breath. 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 Mild lower leg swelling but denies that this is more than his usual. Denies any chest pain, or heaviness elephant sitting on chest. Review of Systems Constitutional: Negative for activity change, appetite change, chills, fatigue and fever. HENT: Positive for congestion, rhinorrhea, sinus pressure and sinus pain. Respiratory: Positive for cough. Negative for shortness of breath and wheezing. Cardiovascular: Negative for chest pain and palpitations. Objective BP 132/72 Pulse 64 Temp 36.2 ?C (97.2 ?F) (Tympanic) Resp 18 Wt 74.8 kg (164 lb 14.5 oz) SpO2 95% BMI 25.07 kg/m? 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 09/2015 4.15 cm Acute gastritis without mention of hemorrhage 04/26/2017 EGD by [facility] Advance care planning 03/24/2022 [facility] can help with medical decision making AMI (acute myocardial infarction) (HCC) 07/03/2013 Carotid atherosclerosis 05/2014 CKD stage G3b/A2, GFR 30-44 and albumin creatinine ratio 30-299 mg/g (HCC) AVOID NEPHROTOXIC MEDICATIONS Diabetes mellitus type 2, uncontrolled, without complications Diaphragmatic hernia without mention of obstruction or gangrene Diverticulosis of colon (without mention of hemorrhage) 04/26/2017 colonoscopy by [facility] Esophagitis Generalized osteoarthrosis, unspecified site Internal hemorrhoid 04/26/2017 colonoscopy by C[facility] Iron deficiency anemia Malignant neoplasm of prostate (HCC) Other and unspecified hyperlipidemia Unspecified cardiovascular disease 1994 CABG Unspecified constipation 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 Nolan Triana EGD 05/23/2024 EGD TRANSORAL BIOPSY SINGLE/MULTIPLE 07/10/2007 PAST SURGICAL HISTORY OF 01/26/2008 stent placement ramus and prox ramus PAST SURGICAL HISTORY OF heart stents PROSTATECTOMY PERINEAL RADICAL 2000 Prostatectomy, radical- Dr. 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 Yousif Triana; next screening colonoscopy in 10yrs, [facility] UNLISTED DIAGNOSTIC GASTROENTEROLOGY PROCEDURE 06/06/2018 ALLERGIES Atorvastatin, Crestor [Rosuvastatin Calcium], Glucosamine, Motrin [Ibuprofen], Pravastatin, and Wpvfavw-Nvh-Biy Reductase Inhibitors MEDICATIONS zinc sulfate (ZINC-15 ORAL) Take 1 tablet by mouth once daily. blood sugar diagnostic (TRUE METRIX GLUCOSE TEST STRIP) test strip Use with blood glucose test three times a day. Insulin Dep? Yes DX E11.9 amLODIPine (NORVASC) 10 mg tablet Take 1 tablet by mouth once daily. In the evening losartan (COZAAR) 50 mg tablet Take 0.5 tablets by mouth once daily. carvedilol (COREG) 25 mg tablet Take 1 tablet by mouth two times a day. isosorbide mononitrate ER (IMDUR) 30 mg 24 hr tablet Take 1 tablet by mouth once daily. clopidogrel (PLAVIX) 75 mg tablet Take 1 tablet by mouth once daily. allopurinol (ZYLOPRIM) 100 mg tablet Take 1 tablet by mouth once daily. insulin glargine (BASAGLAR KWIKPEN U-100 INSULIN) 100 unit/mL (3 mL) Inject 10 Units subcutaneously daily at bedtime. Insulin Kerby, Disposable, (BD ULTRA-FINE BENNY PEN NEEDLE) 32 gauge x 5/32 Use once daily with Lantus as directed diclofenac sodium (VOLTAREN) 1 % topical gel Apply 2 g to affected area four times daily. flaxseed oil (OMEGA 3 ORAL) Take by mouth. hydrocortisone 2.5 % cream Apply 1 application to affected area twice daily. Location: face cetirizine HCl (ZYRTEC) 10 mg chewable tablet Take 10 mg by mouth once daily. (more content not included)... Normal [facility] XR CHEST 2V FRONTAL/LATon XR CHEST 2V FRONTAL/LAT * * *Final Report* * * DATE OF EXAM: Jan 09 2025 2:38PM WOX [id number] - XR CHEST 2V FRONTAL/LAT / PROCEDURE REASON: Acute cough * * * * Physician Interpretation * * * * EXAMINATION: CHEST RADIOGRAPH (2 VIEW FRONTAL and LATERAL) CLINICAL HISTORY: Acute cough MQ: [id number]_6 EXAM DATE/TIME: 01/09/2025 2:38 PM COMPARISON: Chest x-ray on 03/23/2023 RESULT: Lines, tubes, and devices: None. Lungs and pleura: Mild bibasilar atelectasis/scarring noted. No definite consolidations. No masses. No pleural effusions or pneumothorax. Cardiomediastinal silhouette: Normal cardiomediastinal silhouette. A few coronary stents are visualized. Bones and soft tissues: There are degenerative changes in the spine. Status post median sternotomy. IMPRESSION: Left basilar atelectasis/scarring. Director Safety Council: JASON Transcribe Date/Time: Jan 09 2025 2:43P Dictated by : ZOE AKBAR MD This examination was interpreted and the report reviewed and electronically signed by: ZOE AKBAR MD on Jan 09 2025 2:46PM EST [id number] Normal [facility] XR Chest PA and Lateralon IMPRESSION: Left basilar atelectasis/scarring. Director Safety Council: JASON Transcribe Date/Time: Jan 09 2025 2:43P Dictated by : ZOE AKBAR MD This examination was interpreted and the report reviewed and electronically signed by: ZOE AKBAR MD on Jan 09 2025 2:46PM EST DIVISION OF RADIOLOGY * * *Final Report* * * DATE OF EXAM: Jan 09 2025 2:38PM WOX [id number] - XR CHEST 2V FRONTAL/LAT / PROCEDURE REASON: Acute cough * * * * Physician Interpretation * * * * EXAMINATION: CHEST RADIOGRAPH (2 VIEW FRONTAL & LATERAL) CLINICAL HISTORY: Acute cough MQ: XC2_6 EXAM DATE/TIME: 01/09/2025 2:38 PM COMPARISON: Chest x-ray on 03/23/2023 RESULT: Lines, tubes, and devices: None. Lungs and pleura: Mild bibasilar atelectasis/scarring noted. No definite consolidations. No masses. No pleural effusions or pneumothorax. Cardiomediastinal silhouette: Normal cardiomediastinal silhouette. A few coronary stents are visualized. Bones and soft tissues: There are degenerative changes in the spine. Status post median sternotomy. DIVISION OF RADIOLOGY Provider, [facility] Elham Kayla - 01/09/2025 * * *Final Report* * * DATE OF EXAM: Jan 09 2025 2:38PM WOX 5291 - XR CHEST 2V FRONTAL/LAT / PROCEDURE REASON: Acute cough * * * * Physician Interpretation * * * * EXAMINATION: CHEST RADIOGRAPH (2 VIEW FRONTAL & LATERAL) CLINICAL HISTORY: Acute cough MQ: [id number] EXAM DATE/TIME: 01/09/2025 2:38 PM COMPARISON: Chest x-ray on 03/23/2023 RESULT: Lines, tubes, and devices: None. Lungs and pleura: Mild bibasilar atelectasis/scarring noted. No definite consolidations. No masses. No pleural effusions or pneumothorax. Cardiomediastinal silhouette: Normal cardiomediastinal silhouette. A few coronary stents are visualized. Bones and soft tissues: There are degenerative changes in the spine. Status post median sternotomy. IMPRESSION IMPRESSION: Left basilar atelectasis/scarring. Director Safety Council: PSCJony Transcribe Date/Time: Jan 09 2025 2:43P Dictated by : ZOE AKBAR MD This examination was interpreted and the report reviewed and electronically signed by: ZOE AKBAR MD on Jan 09 2025 2:46PM EST [facility] Radiology Study observation (narrative) [facility] XR Chest PA and LateralOrder ed By: Ccf Provider on 01-09-2025 [facility] CNOVon 11-26-2024 CNOV Office Visit (INTMWS ) -- ABRAHAM GAGE ([id number]) 1940 M Date Time Provider Department 11/26/24 3:00 PM THEODORA HERNANDEZ INTMWS During your visit today, we recorded the following information about you: Pulse Blood pressure Weight 62/minute 120/60 76.7 kg Theodora Hernandez, SERVICE PARTS COORDINATOR.DOLPHIN RESEARCHER 11/26/2024 3:27 PM Addendum We discussed your shoulder pain: - You have been experiencing sharp pain in your right shoulder, primarily in the shoulder blade area, for the past 6-8 weeks. The pain is worse at night, especially when lying on your right side or raising your arm. - I performed a physical exam, which showed some pain with certain movements of your right arm but no significant weakness or other concerning findings. - I suspect the pain may be due to inflammation or arthritis in the muscles around your shoulder blade or spine. We discussed your treatment plan: - I have ordered X-rays of your upper back and shoulders to evaluate for any concerning findings. Once the results are available, I will review them and discuss them with Dr. Ragsdale. - I recommend starting a short course of prednisone (a steroid) to help reduce inflammation and provide relief. Please note that prednisone can temporarily raise your blood sugar levels, so monitor your blood sugar closely while taking it. - I will also provide a small refill of hydrocodone for severe pain. Please use this medication sparingly and only as needed. Be aware that hydrocodone can cause drowsiness, so avoid driving or operating heavy machinery while taking it. - For additional pain relief, you may use heat or ice on the affected area. Tfyc-usg-tusnpsc options like Icy Hot or Biofreeze may also help, though results can vary. - You can continue taking Tylenol (650 mg) as needed for mild pain. We discussed your diabetes: - Your blood sugar appears to be well-controlled, with a reading of 101 this morning. Continue monitoring your levels regularly, especially while taking prednisone. Follow-up instructions: - Once the X-ray results are available, I will contact you to discuss the findings and any further steps. - If your pain worsens, does not improve with the current treatment plan, or if you experience new symptoms such as numbness, tingling, or weakness, please contact our office. Your prescriptions for prednisone and hydrocodone have been sent to [facility] in [place]. Please let us know if you have any questions or concerns. Theodora Hernandez, SERVICE PARTS COORDINATOR.DOLPHIN RESEARCHER 11/26/2024 3:43 PM Signed CC: Patient presents with: Pain: in right shoulder for about 6 weeks denies any injury HPI Recording using ambient Molecular Imaging software for draft documentation of the visit was discussed with the patient/authorized applications sales representative; all questions welcomed and answered. Patient/authorized applications sales representative agreed to proceed Abraham is a 84-year-old male with a history of diabetes mellitus, presenting with bilateral shoulder pain, predominantly on the right side. Abraham reports a 6-8 week history of bilateral shoulder pain, with the right shoulder being more affected. The pain is described as sharp and is localized to the posterior shoulder and scapular area. The pain is exacerbated at night, particularly when lying on the right side or raising the arm. He notes difficulty sleeping due to the pain and has been taking hydrocodone 5/325 mg, which provides some relief. He denies any history of strenuous activity or heavy lifting preceding the onset of pain. He also denies any previous episodes of similar shoulder pain. Abraham reports occasional grinding sensations in the shoulders but denies any new crepitus or popping noises. He also denies any feelings of shoulder instability or weakness. He experiences chronic neck pain with grinding sensations when turning his head but denies any new neck pain. He reports chronic tingling in the hands, which predates the shoulder pain. He denies any new musculoskeletal pain, chest pain, dyspnea, cough, fever, chills, or fatigue since the onset of shoulder pain. 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 09/2015 4.15 cm Acute gastritis without mention of hemorrhage 04/26/2017 EGD by Kong Advance care planning 03/24/2022 [facility] can help with medical decision making AMI (acute myocardial infarction) (HCC) 07/03/2013 Carotid atherosclerosis 05/2014 CKD stage G3b/A2, GFR 30-44 and albumin creatinine ratio 30-299 mg/g (HCC) AVOID NEPHROTOXIC MEDICATIONS Diabetes mellitus type 2, uncontrolled, without complications Diaphragmatic hernia without mention of obstruction or gangrene Diverticulosis of colon (without mention of hemorrhage) 04/26/2017 colonoscopy by Wilyl Esophagitis Generalized osteoarthrosis, unspecified site Internal hemorrhoid 04/26/2017 (more content not included)... Normal [facility] XR SHLDR >/=3V AP/MACY AP/OTH R LTon 11-26-2024 XR SHLDR >/=3V AP/MACY AP/OTHR LT * * *Final Report* * * DATE OF EXAM: Nov 26 2024 3:50PM WOX 5252 - XR SHLDR >/=3V AP/MACY AP/OTHR LT / PROCEDURE REASON: multiple diagnoses * * * * Physician Interpretation * * * * XR SHLDR >/=3V AP/MACY AP/OTHR RT, XR SHLDR >/=3V AP/MACY AP/OTHR LT Ordering Physician: THEODORA GUZMAN BILATERAL SHOULDER RADIOGRAPHS Clinical Statement: Pain Comparison: 06/09/2020 FINDINGS: There is no acute fracture or dislocation. Mild degenerative changes are present. There is an amorphous density at the inferior margin of the right glenoid which may relate to labral calcification and/or small loose body. A few benign-appearing bone islands are incidentally noted. Soft tissues are unremarkable. IMPRESSION: Mild degenerative changes. No acute osseous abnormality. Director Safety Council: PSCB Transcribe Date/Time: Nov 28 2024 7:38A Dictated by : WILLEM GUERRERO MD This examination was interpreted and the report reviewed and electronically signed by: WILLEM GUERRERO MD on Nov 28 2024 7:39AM EST [id number] Normal [facility] XR SHLDR >/=3V AP/MACY AP/OTH R RTon 11-26-2024 XR SHLDR >/=3V AP/MACY AP/OTHR RT * * *Final Report* * * DATE OF EXAM: Nov 26 2024 3:50PM WOX 5253 - XR SHLDR >/=3V AP/MACY AP/OTHR RT / PROCEDURE REASON: multiple diagnoses * * * * Physician Interpretation * * * * XR SHLDR >/=3V AP/MACY AP/OTHR RT, XR SHLDR >/=3V AP/MACY AP/OTHR LT Ordering Physician: THOEDORA GUZMAN BILATERAL SHOULDER RADIOGRAPHS Clinical Statement: Pain Comparison: 06/09/2020 FINDINGS: There is no acute fracture or dislocation. Mild degenerative changes are present. There is an amorphous density at the inferior margin of the right glenoid which may relate to labral calcification and/or small loose body. A few benign-appearing bone islands are incidentally noted. Soft tissues are unremarkable. IMPRESSION: Mild degenerative changes. No acute osseous abnormality. Director Safety Council: [employer]iv[employer] Transcribe Date/Time: Nov 28 2024 7:38A Dictated by : WILLEM GUERRERO MD This examination was interpreted and the report reviewed and electronically signed by: WILLEM GUERRERO MD on Nov 28 2024 7:39AM EST [id number] Normal [facility] XR THORACIC 3V AP/LAT/SWIMME RSon 11-26-2024 XR THORACIC 3V AP/LAT/SWIMMERS * * *Final Report* * * DATE OF EXAM: Nov 26 2024 3:50PM WOX 5261 - XR THORACIC 3V AP/LAT/SWIMMERS / PROCEDURE REASON: Upper back pain * * * * Physician Interpretation * * * * THORACIC SPINE RADIOGRAPHS HISTORY: Upper back pain TECHNOLOGIST PROVIDED HISTORY (if applicable): Chronic upper back pain, no known injury. TECHNIQUE: XR THORACIC 3V AP/LAT/SWIMMERS COMPARISON: None available RESULT: Bone mineralization appears normal. Vertebral bodies have normal height and contour. There is no acute bony abnormality identified. Mild dextrocurvature distal thoracic spine Moderate multilevel thoracic disc space narrowing with endplate osteophytes IMPRESSION: 1. Moderate thoracic spondylosis Director Safety Council: [employer] Transcribe Date/Time: Nov 29 2024 6:55A Dictated by : DUSTIN NAVA MD This examination was interpreted and the report reviewed and electronically signed by: DUSTIN NAVA MD on Nov 29 2024 6:56AM EST [id number] Normal [facility] CNOVon 09-26-2024 CNOV Office Visit (FAMPWS ) -- ABRAHAM GAGE ([id number]) 1940 M Date Time Provider Department 09/26/24 2:20 PM [facility] your visit today, we recorded the following information about you: Temperature Pulse Respiration Blood pressure 97 degrees 64/minute 20/minute 138/70 Weight 74.8 kg Samson Ragsdale DO 09/26/2024 4:41 PM Signed Patient presents with: Yearly Exam HPI: Abraham Gage is a 84 year old male who presents to the office today for review of health conditions. Concerns today: States that recently his BLOOD PRESSURE readings have been taken daily in the AM and are fluctuating, some examples are 137/72, 107/68, 134/75, 145/76. Realized that he was only taking the Carvedilol once a day- not just started taking it again twice a day. Is taking his losartan and amlodipine in the AM Arthritis, stable, no recent falls CAD, taking his Plavix, no bleeding Mr. Gage has past history of diabetes. Since our last visit he denies excessive thirst or increased frequency of urination, chest pain or dyspnea , new or unusual visual symptoms, and low sugar/hypoglycemic reactions. Depression- no. Follows a diabetic diet most of the time. He is compliant with medication(s) and is tolerating med(s) without any side effects. He reports checking his glucose on a once a day schedule with sugars in the <150 range. Patient's last HgA1C was Hemoglobin A1C (%) Date Value 09/17/2024 6.3 03/19/2024 6.0 09/09/2021 6.1 06/08/2021 6.0 ) Last Ophthalmology exam was within the past 12 months Mr. Gage reports history of hyperlipidemia. Current therapy includes diet and exercise. Denies side effects of muscle weakness or achiness. His most recent lipid panels are reviewed. Cholesterol, Total (mg/dL) Date Value 09/17/2024 201 09/09/2021 246 HDL Cholesterol (mg/dL) Date Value 09/17/2024 39 09/09/2021 40 LDL Cholesterol (mg/dL) Date Value 09/17/2024 132 09/09/2021 178 Triglyceride (mg/dL) Date Value 09/17/2024 149 09/09/2021 142 Mr. Gage indicates a history of hypertension and states that he is feeling well and denies any symptoms referable to elevated blood pressure. Specifically denies headache, chest pain, palpitations, dyspnea, and peripheral edema. Patient denies any side effects of his medication(s) and is compliant with their regimen. Last 3 Encounter BP Readings: Date: BP: 09/26/2024 138/70 05/23/2024 113/56 05/23/2024 147/66 He watches his diet for sodium, low fat and low cholesterol most of the time. He does check BP's away from this office with average BP's in the 100-150/60-80s range. Abraham gets sporadic irregular exercise. 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 09/2015 4.15 cm Acute gastritis without mention of hemorrhage 04/26/2017 EGD by [facility] Advance care planning 03/24/2022 [facility] can help with medical decision making AMI (acute myocardial infarction) (HCC) 07/03/2013 Carotid atherosclerosis 05/2014 CKD stage G3b/A2, GFR 30-44 and albumin creatinine ratio 30-299 mg/g (HCC) AVOID NEPHROTOXIC MEDICATIONS Diabetes mellitus type 2, uncontrolled, without complications Diaphragmatic hernia without mention of obstruction or gangrene Diverticulosis of colon (without mention of hemorrhage) 04/26/2017 colonoscopy by Cebul Esophagitis Generalized osteoarthrosis, unspecified site Internal hemorrhoid 04/26/2017 colonoscopy by Cebul Iron deficiency anemia Malignant neoplasm of prostate (HCC) Other and unspecified hyperlipidemia Unspecified cardiovascular disease 1994 CABG Unspecified constipation 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 Nolan Triana EGD 05/23/2024 EGD TRANSORAL BIOPSY SINGLE/MULTIPLE 07/10/2007 PAST SURGICAL HISTORY OF 01/26/2008 stent placement ramus and prox ramus PAST SURGICAL HISTORY OF heart stents PROSTATECTOMY PERINEAL RADICAL 2000 Prostatectomy, radical- Dr. 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 Yousif Triana; next screening colonoscopy in 10yrs, [facility] UNLISTED DIAGNOSTIC GASTROENTEROLOGY PROCEDURE 06/06/2018 Social History Tobacco Use Smoking status: Former Current packs/day: 2.00 Average packs/day: 2.0 packs/day for 20.0 years (40.0 ttl pk-yrs) Types: Cigarette (more content not included)... Normal [facility] CBC W Auto Differential pane l (Bld)on 09-17-2024 Basophils (Bld) [#/Vol] 0.04 10*3/uL [facility] Basophils/100 WBC (Bld) 0.3 % [facility] Differential cell count method Nom (Bld) Auto [facility] Eosinophils (Bld) [#/Vol] 0.11 10*3/uL [facility] Eosinophils/100 WBC (Bld) 0.9 % [facility] Erythrocyte distribution width (RBC) [Ratio] 15.9 % High 11.5 - 15.0 % [facility] Hematocrit (Bld) [Volume fraction] 42 % 39.0 - 51.0 % [facility] Hemoglobin (Bld) [Mass/Vol] 13.2 g/dL 13.0 - 17.0 g/dL [facility] Immature granulocytes (Bld) [#/Vol] 0.05 10*3/uL [facility] Immature granulocytes/100 WBC (Bld) 0.4 % [facility] Interpretation and review of laboratory results Abnormal [facility] Lymphocytes (Bld) [#/Vol] 2.07 10*3/uL [facility] Lymphocytes/100 WBC (Bld) 17.7 % [facility] MCH (RBC) [Entitic mass] 28.1 pg 26.0 - 34.0 pg [facility] MCHC (RBC) [Mass/Vol] 31.4 g/dL 30.5 - 36.0 g/dL [facility] MCV (RBC) [Entitic vol] 89.4 fL 80.0 - 100.0 fL [facility] Monocytes (Bld) [#/Vol] 0.89 10*3/uL High NINF [facility] Monocytes/100 WBC (Bld) 7.6 % [facility] Neutrophils (Bld) [#/Vol] 8.53 10*3/uL High [facility] Neutrophils/100 WBC (Bld) 73.1 % [facility] Nucleated RBC (Bld) [#/Vol] NINF [facility] Nucleated RBC/100 WBC (Bld) [Ratio] 0 % /100 WBC [facility] Platelet mean volume (Bld) [Entitic vol] 9.9 fL 9.0 - 12.7 fL [facility] Platelets (Bld) [#/Vol] 308 10*3/uL [facility] RBC (Bld) [#/Vol] 4.7 10*6/uL 4.20 - 6.0 0 m/uL [facility] WBC (Bld) [#/Vol] 11.69 10*3/uL High [facility] Basophils (Bld) [#/Vol] 0.04 10*3/uL Normal <0.11 [facility] Comment on above: Order Comment: Speci men Type: BLOOD SPECIMENOrdering Facility: [facility] Address: [address] [place] [address] Performed By: #### 5 7021-8 ####[facility] LABCLIA [id number] [place] [address] [place] Basophils/100 WBC (Bld) 0.3 % Normal [facility] Comment on above: Order Comment: Speci men Type: BLOOD SPECIMENOrdering Facility: [facility] Address: [address] [place] [address] Performed By: #### 5 7021-8 ####[facility] LABCLIA [id number] [place] [address] [place] Differential cell count method Nom (Bld) Auto Normal [facility] Comment on above: Order Comment: Speci men Type: BLOOD SPECIMENOrdering Facility: [facility] Address: [address] [place] [address] Performed By: #### 5 7021-8 ####[facility] LABCLIA [id number] [place] [address] [place] Eosinophils (Bld) [#/Vol] 0.11 10*3/uL Normal <0.46 [facility] Comment on above: Order Comment: Speci men Type: BLOOD SPECIMENOrdering Facility: [facility] Address: [address] [place] [address] Performed By: #### 5 7021-8 ####[facility] LABCLIA [id number] [place] [address] [place] Eosinophils/100 WBC (Bld) 0.9 % Normal [facility] Comment on above: Order Comment: Speci men Type: BLOOD SPECIMENOrdering Facility: [facility] Address: [address] [place] [address] Performed By: #### 5 7021-8 ####[facility] LABIA [id number] [place] [address] [place] Erythrocyte distribution width (RBC) [Ratio] 15.9 % High 11.5-15.0 [facility] Comment on above: Order Comment: Speci men Type: BLOOD SPECIMENOrdering Facility: [facility] Address: [address] [place] [address] Performed By: #### 5 7021-8 ####[facility] LABCLIA [id number] [place] [address] [place] Hematocrit (Bld) [Volume fraction] 42.0 % Normal 39.0-51.0 [facility] Comment on above: Order Comment: Speci men Type: BLOOD SPECIMENOrdering Facility: [facility] Address: [address] [place] [address] Performed By: #### 5 7021-8 ####[facility] LABCLIA [id number] [place] [address] [place] Hemoglobin (Bld) [Mass/Vol] 13.2 g/dL Normal 13.0-17.0 [facility] Comment on above: Order Comment: Speci men Type: BLOOD SPECIMENOrdering Facility: [facility] Address: [address] [place] [address] Performed By: #### 5 7021-8 ####[facility] LABCLIA [id number] [place] [address] [place] Immature granulocytes (Bld) [#/Vol] 0.05 10*3/uL Normal <0.10 [facility] Comment on above: Order Comment: Speci men Type: BLOOD SPECIMENOrdering Facility: [facility] Address: [address] [place] [address] Performed By: #### 5 7021-8 ####[facility] LABCLIA [id number] [place] [address] [place] Immature granulocytes/100 WBC (Bld) 0.4 % Normal [facility] Comment on above: Order Comment: Speci men Type: BLOOD SPECIMENOrdering Facility: [facility] Address: [address] [place] [address] Performed By: #### 5 7021-8 ####[facility] LABIA [id number] [place] [address] [place] Lymphocytes (Bld) [#/Vol] 2.07 10*3/uL Normal 1.00-4.00 [facility] Comment on above: Order Comment: Speci men Type: BLOOD SPECIMENOrdering Facility: [facility] Address: [address] [place] [address] Performed By: #### 5 7021-8 ####[facility] LABCLIA [id number] [place] [address] [place] Lymphocytes/100 WBC (Bld) 17.7 % Normal [facility] Comment on above: Order Comment: Speci men Type: BLOOD SPECIMENOrdering Facility: [facility] Address: [address] [place] [address] Performed By: #### 5 7021-8 ####[facility] LABIA [id number] [place] [address] [place] MCH (RBC) [Entitic mass] 28.1 pg Normal 26.0-34.0 [facility] Comment on above: Order Comment: Speci men Type: BLOOD SPECIMENOrdering Facility: [facility] Address: [address] [place] [address] Performed By: #### 5 7021-8 ####[facility] LABIA [id number] [place] [address] [place] MCHC (RBC) [Mass/Vol] 31.4 g/dL Normal 30.5-36.0 [facility] Comment on above: Order Comment: Speci men Type: BLOOD SPECIMENOrdering Facility: [facility] Address: [address] [place] [address] Performed By: #### 5 7021-8 ####[facility] LABIA [id number] [place] [address] [place] MCV (RBC) [Entitic vol] 89.4 fL Normal 80.0-100.0 [facility] Comment on above: Order Comment: Speci men Type: BLOOD SPECIMENOrdering Facility: [facility] Address: [address] [place] [address] Performed By: #### 5 7021-8 ####[facility] LABIA [id number] [place] [address] [place] Monocytes (Bld) [#/Vol] 0.89 10*3/uL High <0.87 [facility] Comment on above: Order Comment: Speci men Type: BLOOD SPECIMENOrdering Facility: [facility] Address: [facility] [place] [address] Performed By: #### 5 7021-8 ####[facility] LABCLIA [id number] [place] [id number] [place] Monocytes/100 WBC (Bld) 7.6 % Normal [facility] Comment on above: Order Comment: Speci men Type: BLOOD SPECIMENOrdering Facility: [facility] Address: [address] [place] [address] Performed By: #### 5 7021-8 ####[facility] LABCLIA [id number] [place] [address] [place] Neutrophils (Bld) [#/Vol] 8.53 10*3/uL High 1.45-7.50 [facility] Comment on above: Order Comment: Speci men Type: BLOOD SPECIMENOrdering Facility: [facility] Address: [address] [place] [address] Performed By: #### 5 7021-8 ####[facility] LABCLIA [id number] [place] [address] [place] Neutrophils/100 WBC (Bld) 73.1 % Normal [facility] Comment on above: Order Comment: Speci men Type: BLOOD SPECIMENOrdering Facility: [facility] Address: [address] [place] [address] Performed By: #### 5 7021-8 ####[facility] LABCLIA [id number] [place] [address] [place] Nucleated RBC (Bld) [#/Vol] 10*3/uL Normal <0.01 [facility] Comment on above: Order Comment: Speci men Type: BLOOD SPECIMENOrdering Facility: [facility] Address: [address] [place] [address] Performed By: #### 5 7021-8 ####[facility] LABCLIA [id number] [place] [address] [place] Nucleated RBC/100 WBC (Bld) [Ratio] 0.0 /100 WBC Normal [facility] Comment on above: Order Comment: Speci men Type: BLOOD SPECIMENOrdering Facility: [facility] Address: [address] [place] [address] Performed By: #### 5 7021-8 ####[facility] LABIA [id number] [place] [address] [place] Platelet mean volume (Bld) [Entitic vol] 9.9 fL Normal 9.0-12.7 [facility] Comment on above: Order Comment: Speci men Type: BLOOD SPECIMENOrdering Facility: [facility] Address: [address] [place] [address] Performed By: #### 5 7021-8 ####[facility] LABIA [id number] [place] [address] [place] Platelets (Bld) [#/Vol] 308 10*3/uL Normal 150-400 [facility] Comment on above: Order Comment: Speci men Type: BLOOD SPECIMENOrdering Facility: [facility] Address: [address] [place] [address] Performed By: #### 5 7021-8 ####[facility] LABIA [id number] [place] [address] [place] RBC (Bld) [#/Vol] 4.70 10*6/uL Normal 4.20-6.00 [facility] Comment on above: Order Comment: Speci men Type: BLOOD SPECIMENOrdering Facility: [facility] Address: [address] [place] [address] Performed By: #### 5 7021-8 ####[facility] LABIA [id number] [place] [address] [place] WBC (Bld) [#/Vol] 11.69 10*3/uL High 3.70-11.00 [facility] Comment on above: Order Comment: Speci men Type: BLOOD SPECIMENOrdering Facility: [facility] Address: [address] [place] [address] Performed By: #### 5 7021-8 ####[facility] LABCLIA [id number] [facility] [id number] [id number] [facility] [place] CNPNon 09-17-2024 [facility] ABRAHAM GAGE ([id number]) 1940 M Date Time Provider Department 09/17/24 [facility] During your visit today, we recorded the following information about you: Sirena Martinez 09/17/2024 10:40 AM Signed Patient is wanting to come in to today for routine lab work for upcoming wellness exam with PCP on 09/26/24. Please notify patient when orders are available in chart. Desirae Irving APRN.JAIRON 09/17/2024 2:05 PM Signed Labs placed this morning. Already in process. Desirae Irving APRN.CNP Allergies As of Date: 09/17/2024 Noted Allergy Reaction ATORVASTATIN 10/18/2017 16 - Unknown CRESTOR (ROSUVASTATIN CALCIUM) 04/24/2013 14 - Other: See Comments Comments: Muscle pain GLUCOSAMINE 06/27/2017 16 - Unknown Comments: Nerve pain MOTRIN (IBUPROFEN) 01/19/2006 2 - Rash PRAVASTATIN 02/19/2013 14 - Other: See Comments Comments: muscle aches [id number] REDUCTASE INHIBIT*10/09/2014 14 - Other: See Comments Comments: myalgia Date Reviewed: 05/23/2024 Reviewed by: Odonnell, Juana, RN - Fully Assessed Reason for Visit: Lab Orders [2848] Prescriptions as of 09/17/2024 - isosorbide mononitrate ER (IMDUR) 30 mg 24 hr tablet Take 1 tablet by mouth once daily. - clopidogrel (PLAVIX) 75 mg tablet Take 1 tablet by mouth once daily. - blood sugar diagnostic (BLOOD GLUCOSE TEST) test strip Test blood sugar(s) 2 times daily. Dx: Type 2 DM - Controlled E11.9 Insulin: Yes - allopurinol (ZYLOPRIM) 100 mg tablet Take 1 tablet by mouth once daily. - insulin glargine (BASAGLAR KWIKPEN U-100 INSULIN) 100 unit/mL (3 mL) Inject 10 Units subcutaneously daily at bedtime. - losartan (COZAAR) 50 mg tablet Take 0.5 tablets by mouth once daily. - amLODIPine (NORVASC) 10 mg tablet Take 1 tablet by mouth once daily. In the evening - carvedilol (COREG) 25 mg tablet Take 1 tablet by mouth two times a day. - blood sugar diagnostic (BLOOD GLUCOSE TEST) test strip DM2, controlled. Use once daily to test blood sugar in the morning - blood sugar diagnostic (BLOOD GLUCOSE TEST) test strip 1 Strip three times daily. Test blood sugar(s)3 times daily. Dx: Type 2 DM - Uncontrolled, E11.65 Insulin: Yes - Insulin Kerby, Disposable, (BD ULTRA-FINE BENNY PEN NEEDLE) 32 gauge x 5/32 Use once daily with Lantus as directed - diclofenac sodium (VOLTAREN) 1 % topical gel Apply 2 g to affected area four times daily. - flaxseed oil (OMEGA 3 ORAL) Take by mouth. - hydrocortisone 2.5 % cream Apply 1 application to affected area twice daily. Location: face - ferrous sulfate 325 mg (65 mg iron) tablet Take 325 mg by mouth two times a day. Taking 1 every other day - cetirizine HCl (ZYRTEC) 10 mg chewable tablet Take 10 mg by mouth once daily. - cholecalciferol (VITAMIN D3) 5,000 unit tab Take 5,000 Units by mouth twice daily. - Blood-Glucose Meter (FREESTYLE LITE METER) monitoring kit 1 Each as directed. - Lancets lancets Use as instructed - furosemide (LASIX) 40 mg tablet Take 1 tablet by mouth once daily. - potassium chloride (KLOR-CON 10) 10 mEq tablet Take 1 tablet by mouth once daily. - triamcinolone acetonide (KENALOG) 0.1 % cream Apply 1 application to affected area twice daily as needed (rash). Apply sparingly to area for rash/itching. - CHOLECALCIFEROL, VITAMIN D3, (VITAMIN D3 ORAL) Take 600 mg by mouth once daily. - coenzyme Q10 (COENZYME Q-10) 100 mg cap capsule Take 1 capsule by mouth. - CALTRATE-600 PLUS VITAMIN D3 600 MG-200 UNIT ORAL TAB TAKE TWO TABLETS DAILY. Meds Comments as of 02/29/2008: Antiplatelet drugs (eg, ticlopidine, clopidogrel (plavix), aspirin, abciximab, dipyridamole, eptifibatide, tirofiban): May increase risk of bleeding when taken with diclfenac. Beta-blockers(metoprolol): NSAIDs (diclofenac) may decrease the antihypertensive effect of beta-blockers; monitor carefully Problem List As Of Date 09/17/2024 Noted Resolved GENERAL OSTEOARTHROSIS [M15.9] Diaphragmatic hernia [K44.9] Unspecified cardiovascular disease [I25.10] 09/20/2022 Pure hypercholesterolemia [E78.00] History of prostate cancer [Z85.46] Hypertensive kidney disease with chronic kidney* Abdominal aneurysm without mention of rupture [* 06/05/2020 TENOSYNOV HAND/WRIST NEC [M65.849, M65.839] 06/09/2005 CARPAL TUNNEL SYNDROME [G56.00] 07/02/2005 BENIGN HYPERTENSION [I10] 10/21/2006 Unspecified constipation [K59.00] 05/11/2007 06/05/2020 Dyspepsia and other specified disorders of func*05/11/2007 06/05/2020 Acute gastritis without mention of hemorrhage [*07/10/2007 06/05/2020 Impaired fasting glucose [R73.01] 01/06/2009 07/04/2014 Atherosclerosis of common carotid artery [I65.2*10/29/2009 L-S Radiculopathy [M54.17] 11/24/2009 Thoracic or Lumbosacral Neuritis or Radiculitis*11/27/2009 Glucose intolerance (pre-diabetes) [R73.03] 03/23/2011 07/04/2014 CAD ( (more content not included)... Normal [facility] metabolic 2000 panelon 09-17-2024 Albumin [Mass/Vol] 3.7 g/dL Low 3.9-4.9 [facility] Comment on above: Order Comment: Speci men Type: BLOOD SPECIMENOrdering Facility: [facility] Address: [address] [place] [address] Performed By: #### 2 4331-1 ####[facility]ATORYCL[facility] [id number] [address] [place] [address] LABCLIA [id number] [place] [address] [place]#### 23239-0 ####[facility]ORATORYCLIA [id number] [place] [address] [place] ALP [Catalytic activity/Vol] 82 U/L Normal 38-113 [facility] Comment on above: Order Comment: Speci men Type: BLOOD SPECIMENOrdering Facility: [facility] Address: [address] [place] [address] Performed By: #### 2 4331-1 ####[facility] LABORATORYCLIA [id number] [place] [id number] [facility] LABCLIA [id number] [place] [address] [place]#### 21766-7 ####[facility]ORATORYCLIA [id number] [place] [address] [place] ALT [Catalytic activity/Vol] 20 U/L Normal 10-54 [facility] Comment on above: Order Comment: Speci men Type: BLOOD SPECIMENOrdering Facility: [facility] Address: [address] [place], [place] [address] Performed By: #### 2 4331-1 ####[facility]ORATORYCLIA [id number] [place] [address] [facility] LABCLIA [id number] [place] [address] [place]#### 46169-2 ####[facility]ORATORYCLIA [id number] [address] [place] [address] [place] Anion gap [Moles/Vol] 10 mmol/L Normal 8-15 [facility] Comment on above: Order Comment: Speci men Type: BLOOD SPECIMENOrdering Facility: [facility] Address: [address] [place] [id number] Performed By: #### 2 4331-1 ####[facility]ORATORYCLIA [id number] [address] [place], [place] [address] [facility] LABCLIA [id number] [place] [address] [place]#### 52456-8 ####[facility]ORATORYCLIA [id number] [address] [place], [place] [address] [place] AST [Catalytic activity/Vol] 19 U/L Normal 14-40 [facility] Comment on above: Order Comment: Speci men Type: BLOOD SPECIMENOrdering Facility: [facility] Address: [address] [place] [id number] Performed By: #### 2 4331-1 ####[facility]ORATORYCLIA [id number] [address] [place], [place] [address] [facility] LABCLIA [id number] [place] [address] [place]#### 75894-3 ####[facility]ORATORYCLIA [id number] [place] [address] [place] Bilirubin [Mass/Vol] 0.3 mg/dL Normal 0.2-1.3 [facility] Comment on above: Order Comment: Speci men Type: BLOOD SPECIMENOrdering Facility: [facility] Address: [address] [place] [id number] Performed By: #### 2 4331-1 ####[facility] LABORATORYCLIA [id number] [address] [place], [place] [address] [facility] LABCLIA [id number] [place] [address] [place]#### 78934-7 ####[facility] LABORATORYCLIA [id number] [place] [address] [place] Calcium [Mass/Vol] 9.4 mg/dL Normal 8.5-10.2 [facility] Comment on above: Order Comment: Speci men Type: BLOOD SPECIMENOrdering Facility: [facility] Address: [address] [place] [address] Performed By: #### 2 4331-1 ####[facility] LABORATORYCLIA [id number] [address] OF [facility] LABCLIA [id number] [place] [address] [place]#### 34926-7 ####[facility] LABORATORYCLIA [id number] [place] [address] [place] Chloride [Moles/Vol] 104 mmol/L Normal 98-107 [facility] Comment on above: Order Comment: Speci men Type: BLOOD SPECIMENOrdering Facility: [facility] Address: [address] [place] [address] Performed By: #### 2 4331-1 ####[facility] LABORATORYCLIA [id number] [place] [address] [place] [facility] LABCLIA [id number] [place] [address] [place]#### 15581-9 ####[facility] LABORATORYCLIA [id number] [place] [address] [place] CO2 [Moles/Vol] 27 mmol/L Normal 22-30 [facility] Comment on above: Order Comment: Speci men Type: BLOOD SPECIMENOrdering Facility: [facility] Address: [address] [place] [address] Performed By: #### 2 4331-1 ####[facility] LABORATORYCLIA [id number] [address] LABCLIA [id number] [address] [place]#### 79157-3 ####[facility] LABORATORYCLIA [id number] [place] [address] [place] Creatinine [Mass/Vol] 1.68 mg/dL High 0.73-1.22 [facility] Comment on above: Order Comment: Speci men Type: BLOOD SPECIMENOrdering Facility: [facility] Address: [address] [place] [address] Performed By: #### 2 4331-1 ####[facility] LABORATORYCLIA [id number] [address] LABCLIA [id number] [address] [place]#### 79608-7 ####[facility] LABORATORYCLIA [id number] [address] Creatinine and Glomerular filtration rate.predicted panel (S/P/Bld) 40 mL/min/1.73m??? Low >=60 [facility] Comment on above: Order Comment: Speci men Type: BLOOD SPECIMENOrdering Facility: [facility] Address: [address] [place] [address] Result Comment: Jeanette mated Glomerular Filtration Rate (eGFR) is calculated using the 2020 CKD-EPI creatinine equation. This equation utilizes serum creatinine, sex, and age as parameters. The creatinine assay has traceable calibration to isotope dilution-mass spectrometry. Refer to KDIGO guidelines for clinical interpretation. In patients with unstable renal function, e.g. those with acute kidney injury, the eGFR may not accurately reflect actual GFR. Performed By: #### 2 4331-1 ####[facility] LABORATORYCLIA [id number] [address] LABCLIA [id number] [place] [address] [place]#### 83558-1 ####[facility] LABORATORYCLIA [id number] [place] [address] [place] Glucose [Mass/Vol] 80 mg/dL Normal 74-99 [facility] Comment on above: Order Comment: Speci men Type: BLOOD SPECIMENOrdering Facility: [facility] Address: [address] [place] [address] Result Comment: The [place] Diabetes Association (ADA) provides guidance for cutoff values for fasting glucose and random glucose. The ADA defines fasting as no caloric intake for at least 8 hours. Fasting plasma glucose results between 100 to 125 [...] Standards of Medical Care in Diabetes 2016, [place] Diabetes Association. Diabetes Care. 2016.39(Suppl 1). Performed By: #### 2 4331-1 ####[facility] LABORATORYCLIA [id number] [address] LABCLIA [id number] [place] [address] [place]#### 26090-3 ####[facility] LABORATORYCLIA [id number] [place] [address] [place] Potassium [Moles/Vol] 4.6 mmol/L Normal 3.7-5.1 [facility] Comment on above: Order Comment: Speci men Type: BLOOD SPECIMENOrdering Facility: [facility] Address: [address] [place] [address] Performed By: #### 2 4331-1 ####[facility] LABORATORYCLIA [id number] [address] LABCLIA [id number] [place] [address] [place]#### 96482-1 ####[facility] LABORATORYCLIA [id number] [place] [address] [place] Protein [Mass/Vol] 6.8 g/dL Normal 6.3-8.0 [facility] Comment on above: Order Comment: Speci men Type: BLOOD SPECIMENOrdering Facility: [facility] Address: [address] [place] [address] Performed By: #### 2 4331-1 ####[facility] LABORATORYCLIA [id number] [address] [place] [address] [place] [facility] LABCLIA [id number] [place] [address] [place]#### 33192-7 ####[facility] LABORATORYCLIA [id number] [place] [address] [place] Sodium [Moles/Vol] 141 mmol/L Normal 136-144 [facility] Comment on above: Order Comment: Speci men Type: BLOOD SPECIMENOrdering Facility: [facility] Address: [address] [place] [address] Performed By: #### 2 4331-1 ####[facility] LABORATORYCLIA [id number] [place] [address] [place] [facility] LABCLIA [id number] [place] [address] [place]#### 78552-7 ####[facility] LABORATORYCLIA [id number] [place] [address] [place] Urea nitrogen [Mass/Vol] 26 mg/dL High 9-24 [facility] Comment on above: Order Comment: Speci men Type: BLOOD SPECIMENOrdering Facility: [facility] Address: [address] [place] [id number] Performed By: #### 2 4331-1 ####[facility] LABORATORYCLIA [id number] [place] [address] [place] [facility] LABCLIA [id number] [place] [address] [place]#### 28047-3 ####[facility] [id number] [address] [place], [place] [address] [place] HbA1c (Bld)on 09-17-2024 Average glucose Estimated from glycated hemoglobin (Bld) [Mass/Vol] 134 mg/dL Normal [facility] Comment on above: Order Comment: Ryani men Type: BLOOD SPECIMENOrdering Facility: [facility] Address: [address] [place] [address] Result Comment: eAG: (Estimated average glucose) is a calculated value from HgbA1c and is applications sales representative of the average blood glucose level in the last 2-3 month period. Performed By: #### 5 5454-3 ####[facility] LABCLIA [id number] [place] [address] [place] HbA1c (Bld) [Mass fraction] 6.3 % High 4.3-5.6 [facility] Comment on above: Order Comment: Cyndy sinha Type: BLOOD SPECIMENOrdering Facility: [facility] Address: [address] [place] [address] Result Comment: Amalan ican Diabetes Association guidelines indicate that patients with HgbA1c in the range 5.7-6.4% are at increased risk for development of diabetes, and intervention by lifestyle modification may be beneficial. HgbA1c greater or equal to 6.5% is considered diagnostic of diabetes. Performed By: #### 5 5454-3 ####[facility] LABCLIA [id number] [place] [address] [place] Lipid 1996 panelon 5 Cholesterol [Mass/Vol] 201 mg/dL High <200 [facility] Comment on above: Order Comment: Cyndy sinha Type: BLOOD SPECIMENOrdering Facility: [facility] Address: [address] [place] [address] Result Comment: <200 mg/dL, Desirable 200-239 mg/dL, Borderline high >239 mg/dL, High Performed By: #### 2 4331-1 ####[facility] LABORATORYCLIA [id number] [address] [place], [place] [address] [facility] LABCLIA [id number] [place] [address] [place]#### 94224-2 ####[facility] LABORATORYCLIA [id number] [place] [address] [place] [facility] Cholesterol in HDL [Mass/Vol] 39 mg/dL Low >39 [facility] Comment on above: Order Comment: Speci men Type: BLOOD SPECIMENOrdering Facility: [facility] Address: [address] [place] [address] Result Comment: 40-5 9 mg/dL, Acceptable >59 mg/dL, High: Negative risk factor for coronary heart disease <40 mg/dL, Low: Positive risk factor for coronary heart disease Performed By: #### 2 4331-1 ####[facility] LABORATORYCLIA [id number] [address] [place] [address] LABCLIA [id number] [place]#### 22077-1 ####[facility] LABORATORYCLIA [id number] [address] [place] [facility] Cholesterol in LDL [Mass/Vol] 132 mg/dL High <100 [facility] Comment on above: Order Comment: Speci men Type: BLOOD SPECIMENOrdering Facility: [facility] Address: [address] [place] [address] Result Comment: <100 mg/dL, Optimal 100-129 mg/dL, Near optimal/above optimal 130-159 mg/dL, Borderline high 160-189 mg/dL, High >189 mg/dL, Very high Secondary prevention optimal LDL Cholesterol levels are recommended to be < 70 mg/dL Performed By: #### 2 4331-1 ####[facility] LABORATORYCLIA [id number] [address] LABCLIA [id number] [place] [address] [place]#### 53707-5 ####[facility] LABORATORYCLIA [id number] [place] [id number] [place] Cholesterol in LDL/Cholesterol in HDL [Mass ratio] 3.38 {ratio} High <2.54 [facility] Comment on above: Order Comment: Speci men Type: BLOOD SPECIMENOrdering Facility: [facility] Address: [facility] [place] [address] Result Comment: Alla patiño: 1. National Cholesterol Education Program ATP III Guideline At-A-Glance Quick Desk Reference: National Heart, Lung, and Blood [place]. National Institutes of Health. 2001: NIH Publication No. 01-3305. 2. An International Atherosclerosis Society position paper: global recommendations for the management of dyslipidemia: executive summary, Atherosclerosis. 2014: 232(2):410-413. Performed By: #### 2 4331-1 ####[facility] LABORATORYCLIA [id number] [address] [place] [address] LABCLIA [id number] [place] [address] [place]#### 80214-4 ####[facility] LABORATORYCLIA [id number] [place] [address] [place] Cholesterol in VLDL [Mass/Vol] 30 mg/dL High <30 [facility] Comment on above: Order Comment: Speci men Type: BLOOD SPECIMENOrdering Facility: [facility] Address: [address] [place] [address] Performed By: #### 2 4331-1 ####[facility] LABORATORYCLIA [id number] [address] [place], [place] [address] [facility] LABCLIA [id number] [place] [address] [place]#### 61291-1 ####[facility] LABORATORYCLIA [id number] [address] [place] Cholesterol non HDL [Mass/Vol] 162 mg/dL High <130 [facility] Comment on above: Order Comment: Speci men Type: BLOOD SPECIMENOrdering Facility: [facility] Address: [address] [place] [address] Result Comment: <130 mg/dL, Optimal 130-159 mg/dL, Near optimal/above optimal 160-189 mg/dL, Borderline high 190-219 mg/dL, High >219 mg/dL, Very high Secondary prevention optimal non HDL Cholesterol levels are recommended to be <100 mg/dL Performed By: #### 2 4331-1 ####[facility] LABORATORYCLIA [id number] [address] LABCLIA [id number] [address] [place]#### 51029-0 ####[facility] LABORATORYCLIA [id number] [address] [place] [facility] Cholesterol.total/Ch olesterol in HDL [Mass ratio] 5.15 {ratio} High <5.10 [facility] Comment on above: Order Comment: Speci men Type: BLOOD SPECIMENOrdering Facility: [facility] Address: [address] [place] [address] Performed By: #### 2 4331-1 ####[facility] LABORATORYCLIA [id number] [address] LABCLIA [id number] [address] [place]#### 01178-4 ####[facility] LABORATORYCLIA [id number] [place] [id number] [place] FASTING TIME 12 hrs Normal [facility] Comment on above: Order Comment: Speci men Type: BLOOD SPECIMENOrdering Facility: [facility] Address: [address] [place] [address] Performed By: #### 2 4331-1 ####[facility] LABORATORYCLIA [id number] [address] LABCLIA [id number] [address] [place]#### 24018-6 ####[facility] LABORATORYCLIA [id number] [place] [address] [place] Triglyceride [Mass/Vol] 149 mg/dL Normal <150 [facility] Comment on above: Order Comment: Speci men Type: BLOOD SPECIMENOrdering Facility: [facility] Address: [address] [place] [address] Result Comment: <150 mg/dL, Normal 150-199 mg/dL, Borderline high 200-499 mg/dL, High >499 mg/dL, Very high Performed By: #### 2 4331-1 ####[facility] LABORATORYCLIA [id number] [address] LABCLIA [id number] [address] STATES [facility]#### 80224-3 ####[facility] LABORATORYCLIA [id number] [place] [id number] [place] PSA/PROSTATE SPECIFIC ANTIGE N SCREENINGon 09-17-2024 Prostate specific Ag [Mass/Vol] 0.05 ng/mL Normal <2.60 [facility] Comment on above: Order Comment: Speci men Type: BLOOD SPECIMENOrdering Facility: [facility] Address: [address] [place] [address] Result Comment: Tota l PSA test methodology used is the Electrochemiluminescence Immunoassay by [employer]. Total PSA values by differing methodologies cannot be interchanged. Performed By: #### P SAS1 ####[facility] LABCLIA [id number] [address] [place] Mirza 06-08-2024 JOHN Telephone [facility] -- ABRAHAM [facility]AGE ([id number]) 1940 M Date Time Provider Department 06/08/24 CRISTELA ANDERSEN During your visit today, we recorded the following information about you: Olga Cobb RN 06/08/2024 11:48 AM Signed [facility] and it will be $11 a month. Patient is asking if a script for the [facility]mg dose [facility] Patient aware that he will have to take 3 tabs. Patient also asking for a call back to notify him that the script is sent. JOAQUIN Oviedo Kimberley, APRN.JAIRON 06/08/2024 2:32 PM Signed 3mg capsules sent to [facility] in [place]. Please call Abraham AND let him know. Thank you, Cristela Andersen APRN.Komal Sena RN 06/08/2024 2:54 PM Signed Patient notified prescription sent to the [facility] [place]. Komal Rich RN June 08, 2024 2:54 PM Allergies As of Date: 06/08/2024 Noted Allergy Reaction ATORVASTATIN 10/18/2017 16 - Unknown CRESTOR (ROSUVASTATIN CALCIUM) 04/24/2013 14 - Other: See Comments Comments: Muscle pain GLUCOSAMINE 06/27/2017 16 - Unknown Comments: Nerve pain MOTRIN (IBUPROFEN) 01/19/2006 2 - Rash PRAVASTATIN 02/19/2013 14 - Other: See Comments Comments: muscle aches [id number] REDUCTASE INHIBIT*10/09/2014 14 - Other: See Comments Comments: myalgia Date Reviewed: 05/23/2024 Reviewed by: Juana Herrmann, JOAQUIN - Fully Assessed Reason for Visit: Medication Problem [65] Primary Visit Diagnosis:Lymphocytic colitis [K52.832] Order(s):budesonide, enteric coated (ENTOCORT EC) 3 mg 24 hr capsuleTake 3 capsules by mouth once daily.Disp: 168 capsuleRfl: 0 Prescriptions as of 06/08/2024 - budesonide, enteric coated (ENTOCORT EC) 3 mg 24 hr capsule Take 3 capsules by mouth once daily. - isosorbide mononitrate ER (IMDUR) 30 mg 24 hr tablet Take 1 tablet by mouth once daily. - clopidogrel (PLAVIX) 75 mg tablet Take 1 tablet by mouth once daily. - blood sugar diagnostic (BLOOD GLUCOSE TEST) test strip Test blood sugar(s) 2 times daily. Dx: Type 2 DM - Controlled E11.9 Insulin: Yes - allopurinol (ZYLOPRIM) 100 mg tablet Take 1 tablet by mouth once daily. - insulin glargine (BASAGLAR KWIKPEN U-100 INSULIN) 100 unit/mL (3 mL) Inject 10 Units subcutaneously daily at bedtime. - losartan (COZAAR) 50 mg tablet Take 0.5 tablets by mouth once daily. - amLODIPine (NORVASC) 10 mg tablet Take 1 tablet by mouth once daily. In the evening - carvedilol (COREG) 25 mg tablet Take 1 tablet by mouth two times a day. - blood sugar diagnostic (BLOOD GLUCOSE TEST) test strip DM2, controlled. Use once daily to test blood sugar in the morning - blood sugar diagnostic (BLOOD GLUCOSE TEST) test strip 1 Strip three times daily. Test blood sugar(s)3 times daily. Dx: Type 2 DM - Uncontrolled, E11.65 Insulin: Yes - Insulin Kerby, Disposable, (BD ULTRA-FINE BENNY PEN NEEDLE) 32 gauge x 5/32 Use once daily with Lantus as directed - diclofenac sodium (VOLTAREN) 1 % topical gel Apply 2 g to affected area four times daily. - flaxseed oil (OMEGA 3 ORAL) Take by mouth. - hydrocortisone 2.5 % cream Apply 1 application to affected area twice daily. Location: face - ferrous sulfate 325 mg (65 mg iron) tablet Take 325 mg by mouth two times a day. Taking 1 every other day - cetirizine HCl (ZYRTEC) 10 mg chewable tablet Take 10 mg by mouth once daily. - cholecalciferol (VITAMIN D3) 5,000 unit tab Take 5,000 Units by mouth twice daily. - Blood-Glucose Meter (FREESTYLE LITE METER) monitoring kit 1 Each as directed. - Lancets lancets Use as instructed - furosemide (LASIX) 40 mg tablet Take 1 tablet by mouth once daily. - potassium chloride (KLOR-CON 10) 10 mEq tablet Take 1 tablet by mouth once daily. - triamcinolone acetonide (KENALOG) 0.1 % cream Apply 1 application to affected area twice daily as needed (rash). Apply sparingly to area for rash/itching. - CHOLECALCIFEROL, VITAMIN D3, (VITAMIN D3 ORAL) Take 600 mg by mouth once daily. - coenzyme Q10 (COENZYME Q-10) 100 mg cap capsule Take 1 capsule by mouth. - CALTRATE-600 PLUS VITAMIN D3 600 MG-200 UNIT ORAL TAB TAKE TWO TABLETS DAILY. Meds Comments as of 02/29/2008: Antiplatelet drugs (eg, ticlopidine, clopidogrel (plavix), aspirin, abciximab, dipyridamole, eptifibatide, tirofiban): May increase risk of bleeding when taken with diclfenac. Beta-blockers(metoprolol): NSAIDs (diclofenac) may decrease the antihypertensive effect of beta-blockers; monitor carefully Problem List As Of Date 06/08/2024 Noted Resolved GENERAL OSTEOARTHROSIS [M15.9] Diaphragmatic hernia [K44.9] Unspecified cardiovascular disease [I25.10] 09/20/2022 Pure hypercholesterolemia [E78.00] History of prostate cancer [Z85.46] Hypertensive kidney disease with chronic kidney* Abdominal aneurysm without mention of rupture [* (more content not included)... Normal [facility] CNOVon 05-31-2024 CNOV Office Visit ([facility] ) -- ABRAHAM GAGE ([id number]) 1940 M Date Time Provider Department 05/31/24 2:00 PM CRISTELA ANDERSEN During your visit today, we recorded the following information about you: Cristela Andersen APRN.CNP 05/31/2024 2:38 PM Signed FOLLOW UP VISIT - ENDOSCOPY Abraham Gage 1940 [id number] REFERRING PHYSICIAN: No referring provider defined for this encounter. Abraham Gage is a patient I am following for chronic diarrhea, nausea, and heartburn. Dr. Mendoza performed upper AND lower endoscopy on 05/23/24. The patient was found to have EGD Impression: - Normal first portion of the duodenum, second portion of the duodenum and third portion of the duodenum. Biopsied for celiac. - Erythematous mucosa in the antrum. Biopsied. - Small hiatal hernia. COLONOSCOPY Impression: - Non-bleeding internal hemorrhoids. - Diverticulosis in the sigmoid colon. - Biopsies were taken with a cold forceps from the entire colon for evaluation of microscopic colitis. Pathology demonstrated: FINAL DIAGNOSIS A. Duodenum, biopsy: -Small intestinal mucosa with no diagnostic alteration -No evidence of celiac disease B. Stomach, biopsy: -Antral mucosa with no diagnostic alteration -No morphologic evidence of Helicobacter pylori C. Random colon, biopsy: -Collagenous colitis The patient notes continued diarrhea since the procedure. He does refer it has slowed down. He has used kaopectate with good relief also. VITALS: There were no vitals taken for this visit. General: patient is alert, cooperative, pleasant and in no acute distress On examination, the abdomen is benign. Assessment ASSESSMENT/PLAN: 1. Collagenous colitis - ICD9: 558.9, ICD10: K52.831 - Budeosinide 9mg x 8 weeks Keep me posted if medication is too expensive -Use supportive measures for diarrhea, increase fiber, kaopectate/imodium as needed. The operative findings and pathology report were reviewed with the patient, and the patient has had the opportunity to ask questions and have questions answered. If the patient notes any problems or changes in bowel function, the patient should contact me immediately. Otherwise I recommend follow up endoscopy as symptoms dictate. HM updated and recall letter generated. Discussed treatment plan and patient voices understanding. Patient's questions answered appropriately. Medications and potential side effects were discussed and patient voices understanding. Return to the office as scheduled or as needed for worsening/no improvement. _ Cristela Andersen APRN.DOLPHIN RESEARCHER Allergies As of Date: 05/31/2024 Noted Allergy Reaction ATORVASTATIN 10/18/2017 16 - Unknown CRESTOR (ROSUVASTATIN CALCIUM) 04/24/2013 14 - Other: See Comments Comments: Muscle pain GLUCOSAMINE 06/27/2017 16 - Unknown Comments: Nerve pain MOTRIN (IBUPROFEN) 01/19/2006 2 - Rash PRAVASTATIN 02/19/2013 14 - Other: See Comments Comments: muscle aches [id number] REDUCTASE INHIBIT*10/09/2014 14 - Other: See Comments Comments: myalgia Date Reviewed: 05/23/2024 Reviewed by: Juana Herrmann RN - Fully Assessed Reason for Visit: Follow Up [171] Cmt: Review EGD and colonoscopy results. Primary Visit Diagnosis:Collagenous colitis [K52.831] Order(s):budesonide 9 mg TaDETake 1 tablet by mouth once daily.Disp: 30 tabletRfl: 1 Prescriptions as of 05/31/2024 - budesonide 9 mg TaDE Take 1 tablet by mouth once daily. - isosorbide mononitrate ER (IMDUR) 30 mg 24 hr tablet Take 1 tablet by mouth once daily. - clopidogrel (PLAVIX) 75 mg tablet Take 1 tablet by mouth once daily. - blood sugar diagnostic (BLOOD GLUCOSE TEST) test strip Test blood sugar(s) 2 times daily. Dx: Type 2 DM - Controlled E11.9 Insulin: Yes - allopurinol (ZYLOPRIM) 100 mg tablet Take 1 tablet by mouth once daily. - insulin glargine (BASAGLAR KWIKPEN U-100 INSULIN) 100 unit/mL (3 mL) Inject 10 Units subcutaneously daily at bedtime. - losartan (COZAAR) 50 mg tablet Take 0.5 tablets by mouth once daily. - amLODIPine (NORVASC) 10 mg tablet Take 1 tablet by mouth once daily. In the evening - carvedilol (COREG) 25 mg tablet Take 1 tablet by mouth two times a day. - blood sugar diagnostic (BLOOD GLUCOSE TEST) test strip DM2, controlled. Use once daily to test blood sugar in the morning - blood sugar diagnostic (BLOOD GLUCOSE TEST) test strip 1 Strip three times daily. Test blood sugar(s)3 times daily. Dx: Type 2 DM - Uncontrolled, E11.65 Insulin: Yes - Insulin Kerby, Disposable, (BD ULTRA-FINE BENNY PEN NEEDLE) 32 gauge x 5/32 Use once daily with Lantus as directed - diclofenac sodium (VOLTAREN) 1 % topical gel Apply 2 g to affected area four times daily. - flaxseed oil (OMEGA 3 ORAL) Take by mouth. - hydrocortisone 2.5 % cream Apply 1 application to affected area twice marvin (more content not included)... Normal [facility] Mirza 05-30-2024 JOHN Telephone ([facility]) -- ABRAHAM GAGE ([id number]) 1940 M Date Time Provider Department 05/30/24 CRISTELA ANDERSEN During your visit today, we recorded the following information about you: Cristela Andersen APRN.CNP 05/30/2024 9:58 AM Signed Can you please call Abraham to let him know he needs a visit to go over his colonoscopy/EGD results. Can be in person or virtual. Thank you, Cristela Andersen APRN.iSvan Childress 05/30/2024 12:53 PM Signed Patient notified and scheduled for an EGD AND colon follow up from 05-23 Sivan Ross Allergies As of Date: 05/30/2024 Noted Allergy Reaction ATORVASTATIN 10/18/2017 16 - Unknown CRESTOR (ROSUVASTATIN CALCIUM) 04/24/2013 14 - Other: See Comments Comments: Muscle pain GLUCOSAMINE 06/27/2017 16 - Unknown Comments: Nerve pain MOTRIN (IBUPROFEN) 01/19/2006 2 - Rash PRAVASTATIN 02/19/2013 14 - Other: See Comments Comments: muscle aches [id number] REDUCTASE INHIBIT*10/09/2014 14 - Other: See Comments Comments: myalgia Date Reviewed: 05/23/2024 Reviewed by: Juana Herrmann, RN - Fully Assessed Reason for Visit: Appointment [186] Prescriptions as of 05/30/2024 - isosorbide mononitrate ER (IMDUR) 30 mg 24 hr tablet Take 1 tablet by mouth once daily. - clopidogrel (PLAVIX) 75 mg tablet Take 1 tablet by mouth once daily. - blood sugar diagnostic (BLOOD GLUCOSE TEST) test strip Test blood sugar(s) 2 times daily. Dx: Type 2 DM - Controlled E11.9 Insulin: Yes - allopurinol (ZYLOPRIM) 100 mg tablet Take 1 tablet by mouth once daily. - insulin glargine (BASAGLAR KWIKPEN U-100 INSULIN) 100 unit/mL (3 mL) Inject 10 Units subcutaneously daily at bedtime. - losartan (COZAAR) 50 mg tablet Take 0.5 tablets by mouth once daily. - amLODIPine (NORVASC) 10 mg tablet Take 1 tablet by mouth once daily. In the evening - carvedilol (COREG) 25 mg tablet Take 1 tablet by mouth two times a day. - blood sugar diagnostic (BLOOD GLUCOSE TEST) test strip DM2, controlled. Use once daily to test blood sugar in the morning - blood sugar diagnostic (BLOOD GLUCOSE TEST) test strip 1 Strip three times daily. Test blood sugar(s)3 times daily. Dx: Type 2 DM - Uncontrolled, E11.65 Insulin: Yes - Insulin Kerby, Disposable, (BD ULTRA-FINE BENNY PEN NEEDLE) 32 gauge x 5/32 Use once daily with Lantus as directed - diclofenac sodium (VOLTAREN) 1 % topical gel Apply 2 g to affected area four times daily. - flaxseed oil (OMEGA 3 ORAL) Take by mouth. - hydrocortisone 2.5 % cream Apply 1 application to affected area twice daily. Location: face - ferrous sulfate 325 mg (65 mg iron) tablet Take 325 mg by mouth two times a day. Taking 1 every other day - cetirizine HCl (ZYRTEC) 10 mg chewable tablet Take 10 mg by mouth once daily. - cholecalciferol (VITAMIN D3) 5,000 unit tab Take 5,000 Units by mouth twice daily. - Blood-Glucose Meter (FREESTYLE LITE METER) monitoring kit 1 Each as directed. - Lancets lancets Use as instructed - furosemide (LASIX) 40 mg tablet Take 1 tablet by mouth once daily. - potassium chloride (KLOR-CON 10) 10 mEq tablet Take 1 tablet by mouth once daily. - triamcinolone acetonide (KENALOG) 0.1 % cream Apply 1 application to affected area twice daily as needed (rash). Apply sparingly to area for rash/itching. - CHOLECALCIFEROL, VITAMIN D3, (VITAMIN D3 ORAL) Take 600 mg by mouth once daily. - coenzyme Q10 (COENZYME Q-10) 100 mg cap capsule Take 1 capsule by mouth. - CALTRATE-600 PLUS VITAMIN D3 600 MG-200 UNIT ORAL TAB TAKE TWO TABLETS DAILY. Meds Comments as of 02/29/2008: Antiplatelet drugs (eg, ticlopidine, clopidogrel (plavix), aspirin, abciximab, dipyridamole, eptifibatide, tirofiban): May increase risk of bleeding when taken with diclfenac. Beta-blockers(metoprolol): NSAIDs (diclofenac) may decrease the antihypertensive effect of beta-blockers; monitor carefully Problem List As Of Date 05/30/2024 Noted Resolved GENERAL OSTEOARTHROSIS [M15.9] Diaphragmatic hernia [K44.9] Unspecified cardiovascular disease [I25.10] 09/20/2022 Pure hypercholesterolemia [E78.00] History of prostate cancer [Z85.46] Hypertensive kidney disease with chronic kidney* Abdominal aneurysm without mention of rupture [* 06/05/2020 TENOSYNOV HAND/WRIST NEC [M65.849, M65.839] 06/09/2005 CARPAL TUNNEL SYNDROME [G56.00] 07/02/2005 BENIGN HYPERTENSION [I10] 10/21/2006 Unspecified constipation [K59.00] 05/11/2007 06/05/2020 Dyspepsia and other specified disorders of func*05/11/2007 06/05/2020 Acute gastritis without mention of hemorrhage [*07/10/2007 06/05/2020 Impaired fasting glucose [R73.01] 01/06/2009 07/04/2014 Atherosclerosis of common carotid artery [I65.2*10/29/2009 L-S Radiculopathy [M54.17] 11/24/2009 Thoracic or Lumbosacral Neuritis or Radiculitis*11/27/2009 Glucose intolerance (pre-diabetes) [R73.03] 03/23/2011 (more content not included)... Normal [facility] C. DIFFICILE PCRon C. difficile toxin genes CHANTAL+probe Ql (Stl) Negative Negative for C. difficile toxin by PCR [facility] C. difficile toxin genes CHANTAL +probe Ql (Stl)on 05-24-2024 Interpretation and review of laboratory results Normal [facility] ANES POSTPROC EVALon 024 ANES POSTPROC EVAL HNO ID: [id number] Author: KARRIE BURGER MD Service: Anesthesiology Author Type: Anesthesiologist Type: Anesthesia Postprocedure Evaluation Filed: 05/23/2024 15:46 Note Text: POST ANESTHESIA EVALUATION NOTE : 1940 Procedure Summary Date: 05/23/24 Room / Location: [facility] Endoscopy Anesthesia Start: 1333 Anesthesia Stop: 1413 Procedures: COLONOSCOPY DIAGNOSTIC EGD DIAGNOSTIC Diagnosis: Chronic diarrhea Generalized abdominal pain Gastroesophageal reflux disease without esophagitis (Abdominal pain in the left upper quadrant) (Abdominal pain in the left upper quadrant) Scheduled Providers: Malu Mendoza MD; Bella Hannah APRN.LOCK PLATER; Cristin Nieves MD Responsible Provider: Colt Rice MD Anesthesia Type: MAC ASA Status: 4 Anesthesia Type: MAC Last Vitals Vitals Value Taken Time BP 147/66 05/23/24 1445 Temp 36.5 ?C (97.7 ?F) 05/23/24 1411 HR SpO2 62 05/23/24 1434 Resp 18 05/23/24 1432 SpO2 98 % 05/23/24 1447 Vitals shown include unfiled device data. Post Anesthesia Patient Status Patient Evaluation: PACU. PACU/ICU Patient Condition: stable. Anticipated Disposition: phase 2 then home. Neurological Status: aware and responsive. Pulmonary Status: breathing comfortably on room air Airway Control: returned to baseline unsupported. Cardiovascular Status: stable. Pain Management: clinically adequate - multimodal analgesia pain management approach Postoperative Hydration: acceptable. Intraoperative Events: no significant anesthesia events Post Operative Nausea/Vomiting Status: no significant post operative nausea or vomiting Recommendation: continue current plan of care. Anesthesia Observations No Documentation SIGNATURE: Karrie Burger MD PATIENT NAME: Abraham Gage DATE: May 23, 2024 TIME: 3:46 PM CSN: [id number] Normal [facility] ANES PRE-OPon 05-23-2024 ANES PRE-OP HNO ID: [id number] Author: COLT RICE MD Service: Anesthesiology Author Type: Anesthesiologist Type: Anesthesia Preprocedure Evaluation Filed: 05/23/2024 12:45 Note Text: ANESTHESIOLOGY DAY OF SURGERY NOTE : 1940 Procedure Information Date/Time: 05/23/24 1415 Scheduled providers: Malu Mendoza MD; Bella Hannah APRN.CRNA; Cristin Nieves MD Procedures: COLONOSCOPY DIAGNOSTIC EGD DIAGNOSTIC Location: [facility] Endoscopy Estimated body mass index is 24.78 kg/m? as calculated from the following: Height as of this encounter: 172.7 cm (5' 8). Weight as of this encounter: 73.9 kg (163 lb). Most recent hematocrit and potassium results: Hematocrit 39.3 03/19/2024 Potassium 4.3 03/19/2024 Relevant Problems CARDIO (+) Abdominal aortic aneurysm (AAA) without rupture (HCC) (+) Atherosclerosis of common carotid artery (+) 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) (+) Carotid atherosclerosis, bilateral (+) Complete atrioventricular block (HCC) (+) Coronary artery 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 rich plaque (+) Essential hypertension, benign (+) Stenosis of left carotid artery (+) Stented coronary artery (+) Vasculitis of skin ENDO (+) 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, with long-term current use of insulin (HCC) (+) Controlled type 2 diabetes mellitus without complication, without long-term current use of insulin (HCC) (+) Type 2 diabetes mellitus with stage 4 chronic kidney disease, with long-term current use of insulin (HCC) -RENAL (+) CKD (chronic kidney disease) stage 4, GFR 15-29 ml/min (HCC) (+) Hypertensive kidney disease with chronic kidney disease stage IV (HCC) (+) Stage 3b chronic kidney disease (HCC) NEURO-PSYCH (+) History of prostate cancer PULMONARY (+) SOB (shortness of breath) Other (+) Gout of multiple sites I - PHYSICAL EVALUATION AIRWAY Patient intubated: No. Tracheostomy tube not present Mallampati: II. TM distance: >3 FB. Neck ROM: full ROM without neurological symptoms. Mouth opening: adequate. Short neck: no. Thick neck: no DENTAL Dental findings: poor dentition. Additional exam findings: no II - ANESTHESIA PLAN ASA Score: 4 Anesthetic Plan: MAC NPO Status: adequate Beta Amrita Monitoring Plan Monitoring plan: standard ASA. Post Procedure Analgesic Plan Postoperative analgesic plan: parenteral or oral opioids and multimodal analgesia. Informed Consent Anesthetic risks, benefits, alternatives, personnel and consent discussed: yes. Patient / Responsible Constitution Party agrees to proceed: yes Patient / Surrogate agrees to blood products: blood products not planned Significant changes in the patient condition since the History and Physical, not otherwise documented in primary service progress note: no. BP 165/71 05/23/24 1211 Pulse 75 05/23/24 1211 Resp 16 05/23/24 1211 Temp 36.7 ?C (98.1 ?F) 05/23/24 1211 SpO2 100 % 05/23/24 1211 Outpatient Medications as of 05/23/2024 Medication Sig - cholecalciferol (VITAMIN D3) 5,000 unit tab Take 5,000 Units by mouth twice daily. - CHOLECALCIFEROL, VITAMIN D3, (VITAMIN D3 ORAL) Take 600 mg by mouth once daily. - isosorbide mononitrate ER (IMDUR) 30 mg 24 hr tablet Take 1 tablet by mouth once daily. - clopidogrel (PLAVIX) 75 mg tablet Take 1 tablet by mouth once daily. - blood sugar diagnostic (BLOOD GLUCOSE TEST) test strip Test blood sugar(s) 2 times daily. Dx: Type 2 DM - Controlled E11.9 Insulin: Yes - allopurinol (ZYLOPRIM) 100 mg tablet Take 1 tablet by mouth once daily. - insulin glargine (BASAGLAR KWIKPEN U-100 INSULIN) 100 unit/mL (3 mL) Inject 10 Units subcutaneously daily at bedtime. - losartan (COZAAR) 50 mg tablet Take 0.5 tablets by mouth once daily. - amLODIPine (NORVASC) 10 mg tablet Take 1 tablet by mouth once daily. In the evening - carvedilol (COREG) 25 mg tablet Take 1 tablet by mouth two times a day. - blood sugar diagnostic (BLOOD GLUCOSE TEST) test strip DM2, controlled. Use once daily to test blood sugar in the morning - blood sugar diagnostic (BLOOD GLUCOSE TEST) test strip 1 Strip three times daily. Test blood sugar(s)3 times daily. Dx: Type 2 DM - Uncontrolled, E11.65 Insulin: Yes - Insulin Kerby, Disposable, (BD ULTRA-FINE BENNY PEN NEEDLE) 32 gauge x 5/32 Use once daily with Lantus as directed - diclofenac sodium (VOLTAREN) 1 % topical gel Apply 2 g to affected area four times daily. - flaxseed oil (OMEGA 3 ORAL) Take by mouth. - hydrocortisone 2.5 % cream Apply 1 application to affected area twice daily. Location: face - ferrous sulfate 325 mg (65 mg iron) tablet Take 325 mg by mouth two times a day. Taking 1 every other day - cetirizine HCl (ZYRTEC) 10 mg chewable tablet Take 10 mg by mouth once daily. - Blood-Glucose Meter (FREESTYLE LITE METER) monitoring kit 1 Each as directed. - Lancets lancets Use as in (more content not included)... Normal [facility] C diff Tox gens Stl Ql CHANTAL+p robeon 05-23-2024 C. difficile toxin genes CHANTAL+probe Ql (Stl) Negative Normal Negative for C. difficile toxin by PCR [facility] Comment on above: Order Comment: Speci men Type: STOOL SPECIMEN Ordering Facility: [facility] Address: [address] [place] [address] Performed By: #### P ANC, [id number], [id number] #### [facility] CLIA [id number] [address] [place] [address] OF [facility] Colonoscopyon 05-23-2024 Colonoscopy [facility] Gastrointestinal Endoscopy Patient Name: Abraham Gage Procedure Date: 05/23/2024 1:44 PM Date of : 1940 Admit Type: Outpatient Age: 83 Room: [facility] Gender: Male Note Status: Finalized Attending MD: Malu Mendoza MD, [id number] Procedure: Colonoscopy Indications: Abdominal pain in the left upper quadrant, Diarrhea Providers: Malu Mendoza MD Patient Profile: Refer to note in patient chart for documentation of history and physical. Last Colonoscopy: 2016. Referring Physician: Cristela Andersen (Referring MD) Medicines: See the Anesthesia note for documentation of the administered medications Complications: No immediate complications. Requesting Provider: Procedure: Pre-Anesthesia Assessment: - Monitored anesthesia care under the supervision of a LOCK PLATER was determined to be medically necessary for this procedure based on review of the patient's medical history, medications, and prior anesthesia history. After I obtained informed consent, the scope was passed under direct vision. Throughout the procedure, the patient's blood pressure, pulse, and oxygen saturations were monitored continuously. The Colonoscope was introduced through the anus and advanced to the cecum, identified by the appendiceal orifice, IC valve and transillumination. The colonoscopy was performed without difficulty. The patient tolerated the procedure well. The quality of the bowel preparation was adequate to identify polyps greater than 5 mm in size. The appendiceal orifice and the rectum were photographed. Scope Withdrawal Time: 0 hours 9 minutes 14 seconds Moderate Sedation: MAC anesthesia was administered by the anesthesia team. Total Procedure Duration: 0 hours 17 minutes 42 seconds Findings: The perianal and digital rectal examinations were normal. Non-bleeding internal hemorrhoids were found. A few small-mouthed diverticula were found in the sigmoid colon. Biopsies for histology were taken with a cold forceps from the entire colon for evaluation of microscopic colitis. Estimated blood loss was minimal. Impression: - Non-bleeding internal hemorrhoids. - Diverticulosis in the sigmoid colon. - Biopsies were taken with a cold forceps from the entire colon for evaluation of microscopic colitis. Recommendation: - Discharge patient to home (ambulatory). - Resume previous diet. - Await pathology results. - - Follow up with Lillian Andersen NP, may be via televisit for discussion of pathology results - Patient has a contact number available for emergencies. The signs and symptoms of potential delayed complications were discussed with the patient. Return to normal activities tomorrow. Written discharge instructions were provided to the patient. - Continue present medications. - No repeat colonoscopy due to age. Procedure Code(s): --- Professional --- 76333, Colonoscopy, flexible; with biopsy, single or multiple Diagnosis Code(s): --- Professional --- K57.30, Diverticulosis of large intestine without perforation or abscess without bleeding R19.7, Diarrhea, unspecified R10.12, Left upper quadrant pain K64.8, Other hemorrhoids CPT copyright 2020 [employer]. All rights reserved. The codes documented in this report are preliminary and upon dumpman review may be revised to meet current compliance requirements. Attending Participation: I personally performed the entire procedure. Scope In: 1:47:48 PM Scope Out: 2:05:30 PM MD Malu Huston MD 05/23/2024 2:08:39 PM This report has been signed electronically by Malu Mendoza MD Number of Addenda: 0 Note Initiated On: 05/23/2024 1:44 PM Estimated Blood Loss: Estimated blood loss was minimal. Normal [facility] ECG COMPLETEon 05-23-2024 Atrial Rate 66 BPM [facility] Calculated R [place] 120 degrees [facility] Calculated T [place] 154 degrees [facility] P-R Interval 154 ms [facility] QRS Duration 96 ms [facility] QT Interval 432 ms [facility] QTC Calculation (Bazett) 452 ms [facility] Ventricular Rate 66 BPM [facility] NORMAL SINUS RHYTHM LOW VOLTAGE QRS LEFT POSTERIOR FASCICULAR BLOCK POSSIBLE INFERIOR INFARCT (CITED ON OR BEFORE 23-May-2024) ABNORMAL ECG WHEN COMPARED WITH ECG OF 23-May-2024 13:02, NO SIGNIFICANT CHANGE WAS FOUND Confirmed by MARCIAL AUSTIN M.D. ([id number]) on 05/23/2024 4:02:00 PM [facility] NAME : ANISA GAGE PID : [id number] : 1940 Gender : Male Race : ORD : [id number] Procedure Date : May 23 2024 13:02:54 Edit Date : May 23 2024 16:02:02 Diagnosis: NORMAL SINUS RHYTHM LOW VOLTAGE QRS LEFT POSTERIOR FASCICULAR BLOCK POSSIBLE INFERIOR INFARCT (CITED ON OR BEFORE 23-May-2024) ABNORMAL ECG WHEN COMPARED WITH ECG OF 23-May-2024 13:02, NO SIGNIFICANT CHANGE WAS FOUND Confirmed by MARCIAL AUSTIN M.D. ([id number]) on 05/23/2024 4:02:00 PM Test Reason : Pre-OP Location : 24 : PACU Overread By : MARCIAL AUSTIN M.D. Edited By : MARCIAL AUSTIN M.D. Referred By : CRISTELA ANDERSEN Acquired by : [id number], [facility] ECG COMPLETE Ventricular Rate : 6 6 BPM Atrial Rate : 66 BPM P-R Interval : 154 ms QRS Duration : 96 ms Q-T Interval : 432 ms QTC Calculation(Bazett) : 452 ms Calculated R Bastrop : 120 degrees Calculated T Bastrop : 154 degrees NORMAL SINUS RHYTHM LOW VOLTAGE QRS LEFT POSTERIOR FASCICULAR BLOCK POSSIBLE INFERIOR INFARCT (CITED ON OR BEFORE 23-May-2024) ABNORMAL ECG WHEN COMPARED WITH ECG OF 23-May-2024 13:02, NO SIGNIFICANT CHANGE WAS FOUND Confirmed by MARCIAL AUSTIN M.D. ([id number]) on 05/23/2024 4:02:00 PM NAME : ABRAHAM GAGE PID : [id number] : 1940 Gender : Male Race : ORD : [id number] Procedure Date : May 23 2024 13:02:54 Edit Date : May 23 2024 16:02:02 Diagnosis: NORMAL SINUS RHYTHM LOW VOLTAGE QRS LEFT POSTERIOR FASCICULAR BLOCK POSSIBLE INFERIOR INFARCT (CITED ON OR BEFORE 23-May-2024) ABNORMAL ECG WHEN COMPARED WITH ECG OF 23-May-2024 13:02, NO SIGNIFICANT CHANGE WAS FOUND Confirmed by MARCIAL AUSTIN M.D. ([id number]) on 05/23/2024 4:02:00 PM Test Reason : Pre-OP Location : 24 : PACU Overread By : MARCIAL AUSTIN M.D. Edited By : MARCIAL AUSTIN M.D. Referred By : CRISTELA ANDERSEN Acquired by : [id number], Normal [facility] EGD Study observation Haroldo salazar 05-23-2024 [facility] Gastrointestinal Endoscopy Patient Name: Abraham Gage Procedure Date: 05/23/2024 1:23 PM Date of : 1940 Admit Type: Outpatient Age: 83 Room: [facility] Gender: Male Note Status: Finalized Attending MD: Malu Mendoza MD, [id number] Procedure: Upper GI endoscopy Indications: Abdominal pain in the left upper quadrant Providers: Malu Mendoza MD Patient Profile: Refer to note in patient chart for documentation of history and physical. Referring Physician: Cristela Andersen (Referring MD) Medicines: See the Anesthesia note for documentation of the administered medications Complications: No immediate complications. Requesting Provider: Procedure: Pre-Anesthesia Assessment: - Monitored anesthesia care under the supervision of a LOCK PLATER was determined to be medically necessary for this procedure based on review of the patient's medical history, medications, and prior anesthesia history. After obtaining informed consent, the endoscope was passed under direct vision. Throughout the procedure, the patient's blood pressure, pulse, and oxygen saturations were monitored continuously. The Endoscope was introduced through the mouth, and advanced to the third part of duodenum. The upper GI endoscopy was accomplished without difficulty. The patient tolerated the procedure well. Moderate Sedation: MAC anesthesia was administered by the anesthesia team. Total Procedure Duration: 0 hours 4 minutes 45 seconds Findings: The first portion of the duodenum, second portion of the duodenum and third portion of the duodenum were normal. Biopsies for histology were taken with a cold forceps for evaluation of celiac disease. Verification of patient identification for the specimen was done by the nurse. Estimated blood loss was minimal. Localized mildly erythematous mucosa without bleeding was found in the gastric antrum. Biopsies were taken with a cold forceps for histology/H pylori. Verification of patient identification for the specimen was done by the nurse. Estimated blood loss was minimal. A small hiatal hernia was present. Impression: - Normal first portion of the duodenum, second portion of the duodenum and third portion of the duodenum. Biopsied for celiac. - Erythematous mucosa in the antrum. Biopsied. - Small hiatal hernia. Recommendation: - Discharge patient to home (ambulatory). - Resume previous diet. - Await pathology results. - - Follow up with Lillian Andersen NP, may be via televisit for discussion of pathology results and determination of timing of future endoscopies Procedure Code(s): --- Professional --- 52446, Esophagogastroduodenoscopy , flexible, transoral; with biopsy, single or multiple Diagnosis Code(s): --- Professional --- R10.12, Left upper quadrant pain K44.9, Diaphragmatic hernia without obstruction or gangrene K31.89, Other diseases of stomach and duodenum CPT copyright 2020 [employer]. All rights reserved. The codes documented in this report are preliminary and upon dumpman review may be revised to meet current compliance requirements. Attending Participation: I personally performed the entire procedure. Scope In: 1:39:11 PM Scope Out: 1:43:56 PM MD Malu Huston MD 05/23/2024 1:46:49 PM This report has been signed electronically by Malu Mendoza MD Number of Addenda: 0 Note Initiated On: 05/23/2024 1:23 PM Estimated Blood Loss: Estimated blood loss was minimal. [facility] Radiology Study observation (narrative) [facility] Flexible sigmoidoscopy study on 05-23-2024 [facility] Gastrointestinal Endoscopy Patient Name: Abraham Gage Procedure Date: 05/23/2024 1:44 PM Date of : 1940 Admit Type: Outpatient Age: 83 Room: [facility] Gender: Male Note Status: Finalized Attending MD: Malu Mendoza MD, [id number] Procedure: Colonoscopy Indications: Abdominal pain in the left upper quadrant, Diarrhea Providers: Malu Mendoza MD Patient Profile: Refer to note in patient chart for documentation of history and physical. Last Colonoscopy: 2016. Referring Physician: Cristela Andersen (Referring MD) Medicines: See the Anesthesia note for documentation of the administered medications Complications: No immediate complications. Requesting Provider: Procedure: Pre-Anesthesia Assessment: - Monitored anesthesia care under the supervision of a LOCK PLATER was determined to be medically necessary for this procedure based on review of the patient's medical history, medications, and prior anesthesia history. After I obtained informed consent, the scope was passed under direct vision. Throughout the procedure, the patient's blood pressure, pulse, and oxygen saturations were monitored continuously. The Colonoscope was introduced through the anus and advanced to the cecum, identified by the appendiceal orifice, IC valve and transillumination. The colonoscopy was performed without difficulty. The patient tolerated the procedure well. The quality of the bowel preparation was adequate to identify polyps greater than 5 mm in size. The appendiceal orifice and the rectum were photographed. Scope Withdrawal Time: 0 hours 9 minutes 14 seconds Moderate Sedation: MAC anesthesia was administered by the anesthesia team. Total Procedure Duration: 0 hours 17 minutes 42 seconds Findings: The perianal and digital rectal examinations were normal. Non-bleeding internal hemorrhoids were found. A few small-mouthed diverticula were found in the sigmoid colon. Biopsies for histology were taken with a cold forceps from the entire colon for evaluation of microscopic colitis. Estimated blood loss was minimal. Impression: - Non-bleeding internal hemorrhoids. - Diverticulosis in the sigmoid colon. - Biopsies were taken with a cold forceps from the entire colon for evaluation of microscopic colitis. Recommendation: - Discharge patient to home (ambulatory). - Resume previous diet. - Await pathology results. - - Follow up with Lillian Andersen NP, may be via televisit for discussion of pathology results - Patient has a contact number available for emergencies. The signs and symptoms of potential delayed complications were discussed with the patient. Return to normal activities tomorrow. Written discharge instructions were provided to the patient. - Continue present medications. - No repeat colonoscopy due to age. Procedure Code(s): --- Professional --- 01814, Colonoscopy, flexible; with biopsy, single or multiple Diagnosis Code(s): --- Professional --- K57.30, Diverticulosis of large intestine without perforation or abscess without bleeding R19.7, Diarrhea, unspecified R10.12, Left upper quadrant pain K64.8, Other hemorrhoids CPT copyright 2020 [employer]. All rights reserved. The codes documented in this report are preliminary and upon dumpman review may be revised to meet current compliance requirements. Attending Participation: I personally performed the entire procedure. Scope In: 1:47:48 PM Scope Out: 2:05:30 PM MD Malu Huston MD 05/23/2024 2:08:39 PM This report has been signed electronically by Malu Mendoza MD Number of Addenda: 0 Note Initiated On: 05/23/2024 1:44 PM Estimated Blood Loss: Estimated blood loss was minimal. [facility] Radiology Study observation (narrative) [facility] G lamblia+Cryptosp Ag Stl Ql IAon 05-23-2024 G. lamblia+Cryptosporid ium sp Ag IA Ql (Stl) CRYPTOSPORIDIUM ANTIGEN BY EIA: Negative for Cryptosporidium by EIA. GIARDIA ANTIGEN BY EIA: Negative for Giardia lamblia by EIA. Normal [facility] Comment on above: Performed By: #### P BANNER, [id number], [id number] #### [facility] CLIA [id number] [address] [place] [address] [place] GLUCOSE, BLOOD (POC)on 05-23 Glucose [Mass/Vol] 79 mg/dL 74 - 99 mg/dL [facility] Comment on above: Location:[facility], [address] [place] [address], [address] The Accu-Chek Inform II glucose meter has not been approved for testing on patients receiving intensive medical intervention or therapy and results from this point of care glucose test should not be used for patient management decisions in these cases. Inaccurate results may also occur from other interfering factors, such as N-acetylcysteine (blood concentrations of greater than 5mg/dL), galactose, extremes of hematocrit (<10 or >65), or high doses of ascorbic acid (vitamin C) greater than 3mg/dL. Consider alternate testing mechanisms (e.g. core lab, blood gas instrument) in the above situations. [facility] Glucose [Mass/Vol] 85 mg/dL 74 - 99 mg/dL [facility] Comment on above: Location:[facility], [facility] [place], [place], [address] The Accu-Chek Inform II glucose meter has not been approved for testing on patients receiving intensive medical intervention or therapy and results from this point of care glucose test should not be used for patient management decisions in these cases. Inaccurate results may also occur from other interfering factors, such as N-acetylcysteine (blood concentrations of greater than 5mg/dL), galactose, extremes of hematocrit (<10 or >65), or high doses of ascorbic acid (vitamin C) greater than 3mg/dL. Consider alternate testing mechanisms (e.g. core lab, blood gas instrument) in the above situations. [facility] Gastrointestinal pathogens i dentified CHANTAL+probe Nom (Stl)on 05-23-2024 Campylobacter sp DNA CHANTAL+probe Nom (Unsp spec) Not detected Normal Not Detected [facility] Comment on above: Order Comment: Cyndy sinha Type: STOOL SPECIMEN Ordering Facility: [facility] Address: [address] [place] [address] Performed By: #### 7 9390-1 #### [facility] CLIA [id number] [address] [place] [address] [place] Salmonella sp DNA CHANTAL+probe Ql (Unsp spec) Not detected Normal Not Detected [facility] Comment on above: Order Comment: Cyndy sinha Type: STOOL SPECIMEN Ordering Facility: [facility] Address: [address] [place] [address] Performed By: #### 7 9390-1 #### [facility] CLIA [id number] [address] [place] [address] [place] Shiga toxin stx gene CHANTAL+probe Nom (Unsp spec) Not detected Normal Not Detected [facility] Comment on above: Order Comment: Speci men Type: STOOL SPECIMEN Ordering Facility: [facility] Address: [address] [place] [address] Performed By: #### 7 9390-1 #### [facility] CLIA [id number] [address] [place] [address] Shigella sp DNA CHANTAL+probe Ql (Unsp spec) Not detected Normal Not Detected [facility] Comment on above: Order Comment: Speci men Type: STOOL SPECIMEN Ordering Facility: [facility] Address: [address] [place] [address] Performed By: #### 7 9390-1 #### [facility] CLIA [id number] [address] [place] [address] [place] HISTORY PHYSICALon HISTORY PHYSICAL HNO ID: [id number] Author: MALU MENDOZA MD Service: General Surgery Author Type: Physician Type: H&P Filed: 05/23/2024 13:31 Note Text: HISTORY AND PHYSICAL Abraham [place] : 1940 REFERRING PHYSICIAN: Samson Ragsdale [address] [facility] [id number] CHIEF COMPLAINT: Patient presents with: Consult: Colonoscopy HPI: Abraham is a 83 year old male referred for endoscopy. Abraham notes diarrhea x 6 months AND decreased appetite. PCP Abraham denies abdominal pain.. Abraham notes diarrhea x 6 mos. Watery? +fluctuance Abraham denies constipation. Abraham notes a change in bowel habits. Abraham denies melena. Abraham denies bright red blood per rectum. Abraham notes hemorrhoids. Abraham notes heartburn- using Tums in excess. Abraham denies dysphagia. Abraham denies a history of ulcers/ peptic ulcer disease. +intermittent nausea Denies family history of colon issues. Abraham has a hx of CAD with stents from 2007. Last stress test 2022 EF of 53%. Abraham follows with [facility] had elective cath 06/2023 due to positive stress test. 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 Currently takes plavix. Follows with Dr. Petersen at [facility]. Last OV 07/2023 Abraham has a hx of Alzheimers dementia Abraham has undergone prior endoscopy. Last EGD ANDcolonoscopy 04/2017 with [facility] for anemia Impression: -Findings suggest upper gastritis clopidogrel and aspirin and potassium supplements -Left-sided diverticulosis but no evidence of diverticular bleed -Internal hemorrhoid no evidence of bleeding Small Bowel Capsule 06/2018 IMPRESSION: Duodenal and ileal bleeding CURRENT MEDICATIONS Current Outpatient Medications Medication Sig blood sugar diagnostic (BLOOD GLUCOSE TEST) test strip Test blood sugar(s) 2 times daily. Dx: Type 2 DM - Controlled E11.9 Insulin: Yes allopurinol (ZYLOPRIM) 100 mg tablet Take 1 tablet by mouth once daily. insulin glargine (BASAGLAR KWIKPEN U-100 INSULIN) 100 unit/mL (3 mL) Inject 10 Units subcutaneously daily at bedtime. losartan (COZAAR) 50 mg tablet Take 0.5 tablets by mouth once daily. clopidogrel (PLAVIX) 75 mg tablet Take 1 tablet by mouth once daily. amLODIPine (NORVASC) 10 mg tablet Take 1 tablet by mouth once daily. In the evening carvedilol (COREG) 25 mg tablet Take 1 tablet by mouth two times a day. isosorbide mononitrate ER (IMDUR) 30 mg 24 hr tablet Take 1 tablet by mouth once daily. blood sugar diagnostic (BLOOD GLUCOSE TEST) test strip DM2, controlled. Use once daily to test blood sugar in the morning blood sugar diagnostic (BLOOD GLUCOSE TEST) test strip 1 Strip three times daily. Test blood sugar(s)3 times daily. Dx: Type 2 DM - Uncontrolled, E11.65 Insulin: Yes CRANBERRY Insulin Kerby, Disposable, (BD ULTRA-FINE BENNY PEN NEEDLE) 32 gauge x 5/32 Use once daily with Lantus as directed diclofenac sodium (VOLTAREN) 1 % topical gel Apply 2 g to affected area four times daily. flaxseed oil (OMEGA 3 ORAL) Take by mouth. hydrocortisone 2.5 % cream Apply 1 application to affected area twice daily. Location: face ferrous sulfate 325 mg (65 mg iron) tablet Take 325 mg by mouth two times a day. Taking 1 every other day cetirizine HCl (ZYRTEC) 10 mg chewable tablet Take 10 mg by mouth once daily. cholecalciferol (VITAMIN D3) 5,000 unit tab Take 5,000 Units by mouth twice daily. Blood-Glucose Meter (FREESTYLE LITE METER) monitoring kit 1 Each as directed. Lancets lancets Use as instructed furosemide (LASIX) 40 mg tablet Take 1 tablet by mouth once daily. (Patient taking differently: Take 40 mg by mouth once daily. PRN) potassium chloride (KLOR-CON 10) 10 mEq tablet Take 1 tablet by mouth once daily. triamcinolone acetonide (KENALOG) 0.1 % cream Apply 1 application to affected area twice daily as needed (rash). Apply sparingly to area for rash/itching. CHOLECALCIFEROL, VITAMIN D3, (VITAMIN D3 ORAL) Take 600 mg by mouth once daily. coenzyme Q10 (COENZYME Q-10) 100 mg cap capsule Take 1 capsule by mouth. ONE DAILY MULTI-VITAMIN ORAL TAB Take one(1) tablet daily. CALTRATE-600 PLUS VITAMIN D3 600 MG-200 UNIT ORAL TAB TAKE TWO TABLETS DAILY. peg 3350-Electrolytes (GOLYTELY) 236-22.74-6.74 -5.86 gram suspension Take 4,000 mL by mouth one time only for 1 dose. Refer to printed prep instructions from your provider. Current Facility-Administered Medications Medication Dose Route Frequency perflutren lipid microspheres 1.3 mL in NaCl (PF) 0.9% 10 mL injection (DEFINITY) INTRAVENOUS DIRECTED PRN sodium chloride 0.9 % (flush) 10 mL (BD POSIFLUSH) 10 mL INTRAVENOUS DIRECTED PRN ALLERGIES: Atorvastatin, Crestor [Rosuvastatin Calcium], Glucosamine, Motrin [Ibuprofen], Pravastatin, and Gpliegd-Fxm-Ciu Reductase Inhibitors PAST MEDICAL HISTORY 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 09/2015 4.15 cm Acute gastritis without mention of hemorrhage (more content not included)... Normal [facility] PANC ELASTASE, FECALon 05-23 ELASTASE INTERPRETATION Normal Normal Normal [facility] Comment on above: Order Comment: Speci men Type: STOOL SPECIMENOrdering Facility: [facility] Address: [address] [place] [address] Performed By: #### P ANC, 67843-0, 31678-9 ####[facility] [id number] [facility] [place] [address] [place] ELASTASE-1 CONCENTRATION 308 ug/g Normal >=200 [facility] Comment on above: Order Comment: Speci men Type: STOOL SPECIMENOrdering Facility: [facility] Address: [address] [place] [address] Result Comment: Inte rpretation: <100 ug/g: Severe Exocrine Pancreatic Insufficiency 100-199 ug/g: Mild to Moderate Exocrine Pancreatic Insufficiency >=200 ug/g: Normal Performed By: #### P ANCEF, 85022-6, 09931-9 ####[facility] [id number] [place] [address] [place] SURGICAL PATHOLOGYon 024 CASE REPORT Normal [facility] Comment on above: Order Comment: Cyndy sinha Type: TISSUE SPECIMEN Ordering Facility: [facility] Address: [address] [place] [address] Result Comment: Surg ica Pathology Report Case: [id number] Authorizing Provider: Malu Mendoza MD Collected: 05/23/2024 01:42 PM Ordering Location: [facility] Endoscopy Received: 05/23/2024 03:08 PM Pathologist: Hari Umaña MD Specimens: A) - Small Bowel, Duodenum, Biopsy, sprue B) - Stomach, Biopsy, hp C) - Colon, Biopsy, random Performed By: #### S #### [facility] CLIA [id number] [address] [place] [address] [place] CLINICAL HISTORY A. Normal [facility] Comment on above: Order Comment: Speci men Type: TISSUE SPECIMEN Ordering Facility: [facility] Address: [address] [place] [address] Performed By: #### S #### [facility] CLIA [id number] [address] [place] [address] [place] FINAL DIAGNOSIS Normal [facility] Comment on above: Order Comment: Cyndy sinha Type: TISSUE SPECIMEN Ordering Facility: [facility] Address: [address] [place] [address] Result Comment: ABonnie Delarosa uodenum, biopsy: -Small intestinal mucosa with no diagnostic alteration -No evidence of celiac disease B. Stomach, biopsy: -Antral mucosa with no diagnostic alteration -No morphologic evidence of Helicobacter pylori C. Random colon, biopsy: -Collagenous colitis Performed By: #### S #### [facility] CLIA [id number] [address] [place] [address] [place] FINAL PERFORMING LAB Normal [facility] Comment on above: Order Comment: Speci men Type: TISSUE SPECIMEN Ordering Facility: [facility] Address: [address] [place] [address] Result Comment: Diag nostic interpretation performed at [facility], [address] [place] [address] CLIA# [id number] Manager Deli: Jose Guadalupe Herrera M.D. Performed By: #### S #### [facility] CLIA [id number] [address] [place] [address] [place] GROSS DESCRIPTION Normal [facility] Comment on above: Order Comment: Speci men Type: TISSUE SPECIMEN Ordering Facility: [facility] Address: [address] [place] [address] Result Comment: A. S mall Bowel, Duodenum, Biopsy Received in formalin is one piece of prather-brown, soft tissue measuring 0.3 x 0.2 x 0.2 cm. Totally submitted in one cassette. B. Stomach, Biopsy Received in formalin is one piece of prather, soft tissue measuring 0.3 x 0.2 x 0.2 cm. Totally submitted in one cassette. C. Colon, Biopsy Received in formalin are multiple pieces of prather, soft tissue aggregating to 0.8 x 0.8 x 0.2 cm. Totally submitted in two cassettes. [facility] May 23, 2024 8:21 PM Gross examination performed at [facility], [address] [place] [address] Performed By: #### S #### [facility] CLIA [id number] [address] [place] [address] [place] Upper GI endoscopyon 10-23-2 024 Upper GI endoscopy [facility] Gastrointestinal Endoscopy Patient Name: Abraham Gage Procedure Date: 05/23/2024 1:23 PM Date of : 1940 Admit Type: Outpatient Age: 83 Room: [facility] Gender: Male Note Status: Finalized Attending MD: Malu Mendoza MD, [id number] Procedure: Upper GI endoscopy Indications: Abdominal pain in the left upper quadrant Providers: Malu Mendoza MD Patient Profile: Refer to note in patient chart for documentation of history and physical. Referring Physician: Cristela Andersen (Referring MD) Medicines: See the Anesthesia note for documentation of the administered medications Complications: No immediate complications. Requesting Provider: Procedure: Pre-Anesthesia Assessment: - Monitored anesthesia care under the supervision of a LOCK PLATER was determined to be medically necessary for this procedure based on review of the patient's medical history, medications, and prior anesthesia history. After obtaining informed consent, the endoscope was passed under direct vision. Throughout the procedure, the patient's blood pressure, pulse, and oxygen saturations were monitored continuously. The Endoscope was introduced through the mouth, and advanced to the third part of duodenum. The upper GI endoscopy was accomplished without difficulty. The patient tolerated the procedure well. Moderate Sedation: MAC anesthesia was administered by the anesthesia team. Total Procedure Duration: 0 hours 4 minutes 45 seconds Findings: The first portion of the duodenum, second portion of the duodenum and third portion of the duodenum were normal. Biopsies for histology were taken with a cold forceps for evaluation of celiac disease. Verification of patient identification for the specimen was done by the nurse. Estimated blood loss was minimal. Localized mildly erythematous mucosa without bleeding was found in the gastric antrum. Biopsies were taken with a cold forceps for histology/H pylori. Verification of patient identification for the specimen was done by the nurse. Estimated blood loss was minimal. A small hiatal hernia was present. Impression: - Normal first portion of the duodenum, second portion of the duodenum and third portion of the duodenum. Biopsied for celiac. - Erythematous mucosa in the antrum. Biopsied. - Small hiatal hernia. Recommendation: - Discharge patient to home (ambulatory). - Resume previous diet. - Await pathology results. - - Follow up with Lillian Andersen NP, may be via televisit for discussion of pathology results and determination of timing of future endoscopies Procedure Code(s): --- Professional --- 47262, Esophagogastroduodenoscopy , flexible, transoral; with biopsy, single or multiple Diagnosis Code(s): --- Professional --- R10.12, Left upper quadrant pain K44.9, Diaphragmatic hernia without obstruction or gangrene K31.89, Other diseases of stomach and duodenum CPT copyright 2020 [employer]. All rights reserved. The codes documented in this report are preliminary and upon dumpman review may be revised to meet current compliance requirements. Attending Participation: I personally performed the entire procedure. Scope In: 1:39:11 PM Scope Out: 1:43:56 PM MD Malu Huston MD 05/23/2024 1:46:49 PM This report has been signed electronically by Malu Mendoza MD Number of Addenda: 0 Note Initiated On: 05/23/2024 1:23 PM Estimated Blood Loss: Estimated blood loss was minimal. Normal [facility] HISTORY PHYSICALon HISTORY PHYSICAL HNO ID: [id number] Author: OBDULIA LAUREN APRN.DOLPHIN RESEARCHER Service: ? Author Type: Nurse Practitioner Type: H&P Filed: 05/11/2024 10:30 Note Text: [facility] HISTORY AND PHYSICAL EXAMINATION SERVICE DATE: 05/09/2024 SERVICE TIME: 10:29 AM PRIMARY CARE PHYSICIAN: Samson Ragsdale DO Assessment Patient has the following medical conditions which may affect kendra-operative course: Peripheral neuropathy Assessment: 2/2 DM, no tx Abdominal aortic aneurysm (AAA) without rupture (HCC) Assessment: under surveillance 10/04/2023 abd aorta US AORTA Abdominal aortic aneurysm measuring 4.3cm at mid. 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) Assessment: s/p CABG 1994 and then followed a stent 2007, daily Plavix, received to hold Plavix 5 days and replace with Aspirin 81mg. Following [facility] routinely. Last OV scanned into epic 2023 and AC instructions and clearance scanned into [facility] as well 04/16/2024 Complete atrioventricular block (HCC) Assessment: per PCP note 09/2023 this is stable, but no mention in glove boarder notes of this. Pt has no h/o pacemaker/defibrillator. BENIGN HYPERTENSION Assessment: controlled on rx Last 14 BP Last 14 Encounter BP Readings: Date: BP: 05/09/2024 128/68 04/13/2024 116/57 03/26/2024 120/60 10/04/2023 137/68 09/26/2023 138/64 05/31/2023 122/58 03/23/2023 112/70 11/30/2022 126/62 09/22/2022 110/60 07/28/2022 136/72 03/23/2022 110/70 11/25/2021 136/70 09/15/2021 138/70 06/16/2021 120/60 Hypertensive kidney disease with chronic kidney disease stage IV (HCC) Assessment: Creatinine Date Value Ref Range Status 03/19/2024 2.05 (H) 0.73 - 1.22 mg/dL Final 09/23/2023 2.30 (H) 0.73 - 1.22 mg/dL Final 03/14/2023 2.41 (H) 0.73 - 1.22 mg/dL Final 09/13/2022 2.41 (H) 0.73 - 1.22 mg/dL Final Pure hypercholesterolemia Assessment: c/w statin Carotid atherosclerosis, bilateral Assessment: s/p right carotid endarterectomy, following vascular, last carotid US 09/2023, left ICA 40-59%, right ICA 20-39% and right subclavian artery 50-99% stenosis Diaphragmatic hernia Assessment: hx 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, with long-term current use of insulin ([facility]) Assessment: IDDM Hemoglobin A1C (%) Date Value 03/19/2024 6.0 09/09/2021 6.1 Hypercalcemia Assessment: Calcium, Total Date Value Ref Range Status 03/19/2024 9.7 8.5 - 10.2 mg/dL Final Iron deficiency anemia due to chronic blood loss Assessment: Hemoglobin (g/dL) Date Value 03/19/2024 12.5 09/09/2021 13.5 Hematocrit (%) Date Value 03/19/2024 39.3 09/09/2021 42.5 WBC (k/uL) Date Value 03/19/2024 10.63 09/09/2021 9.17 History of prostate cancer Assessment: s/p prostatectomy Gout of multiple sites Assessment: controlled on rx Psoriasis Assessment: rx as needed Dementia in other diseases classified elsewhere, unspecified severity, with mood disturbance (HCC) Assessment: hx Magana Activity Status Index: METS: Walk indoors, such as around the house (1.75 METs) Do light work around the house, such as dusting or washing dishes (2.70 METs) Take care of self; that is eating, dressing, bathing, using the toilet (2.75 METs) DASI Score: 7.2 Patient denies any chest pain or undue shortness of breath with the above physical activity. Clinical Frailty Scale: 4. Apparently vulnerable STOP-Bang Score: Has or is being treated for high blood pressure Patient over 50 years old Male patient Denies snoring loudly Denies feeling tired, fatigued, or sleepy during the daytime Has not been observed to stop breathing or choking/gasping during sleep BMI less than or equal to 35 kg/m2 Does not have a large neck STOP-Bang Score: 3 [id number] Score: Age: >=75 Sex: male CHF history: No Hypertension history: Yes Stroke/TIA/thromboembolism history: No Vascular disease history: Yes Diabetes history: Yes [id number] Score: 5 ARISCAT Score: Age: >80 Preoperative SpO2: >=96% Respiratory infection in the last month: No Preoperative anemia: No Surgical incision: peripheral Duration of surgery: <2 hrs Emergency procedure: No ARISCAT Score: 16 ANESTHESIA FINDINGS: Intubation History: No history of difficult intubation Significant Anesthesia Considerations: none Airway History: No history of difficult airway I - PHYSICAL EVALUATION AIRWAY Patient intubated: No. Tracheostomy tube not present Mallampati: II. TM distance: >3 FB. Neck ROM: full ROM without neurological symptoms. Mouth opening: adequate. Short neck: no. Thick neck: no Myers present: no Lip Bite Test: I Microretrognathia/Micronag thia/Recessed Chin: No DENTAL Dental findings: teeth intact. II - ANESTHESIA PLAN Anesthetic Plan: other Beta Amrita Monitoring Plan Post Procedure (more content not included)... Normal [facility] Mirza 04-16-2024 [facility] Telephone ([employer]) -- ABRAHAM GAGE ([id number]) 1940 M Date Time Provider Department 04/16/24 CRISTELA ANDERSEN During your visit today, we recorded the following information about you: Jaja Marshall 04/16/2024 11:32 AM Signed Per Cristela Andersen patient to seek cardiac clearance prior to proceeding with scopes on 05/23/[address] Mendoza in [place] Patient follows [facility] in [place] Dr. Palomo Petersen. Clearance form faxed to their office at [phone] (see scanned doc for fax confirmation) Patient aware of all steps needed to be completed prior to proceeding and voiced understanding Jaja Marshall Orthopedic Brace Maker Jaja Marshall 04/24/2024 8:21 AM Signed Cardiac clearance received. Patient cleared to proceed and should HOLD Plavix 7 days prior to scopes. Per Dr. Palomo Petersen recommends patient to remain on ASA 81 mg uninterrupted. See scanned doc (also attached to encounter) Jaja Marshall Orthopedic Brace Maker Allergies As of Date: 04/16/2024 Noted Allergy Reaction ATORVASTATIN 10/18/2017 16 - Unknown CRESTOR (ROSUVASTATIN CALCIUM) 04/24/2013 14 - Other: See Comments Comments: Muscle pain GLUCOSAMINE 06/27/2017 16 - Unknown Comments: Nerve pain MOTRIN (IBUPROFEN) 01/19/2006 2 - Rash PRAVASTATIN 02/19/2013 14 - Other: See Comments Comments: muscle aches [id number] REDUCTASE INHIBIT*10/09/2014 14 - Other: See Comments Comments: myalgia Date Reviewed: 04/13/2024 Reviewed by: Cristela Andersen APRN.DOLPHIN RESEARCHER - Fully Assessed Reason for Visit: Appointment [[id number]] Prescriptions as of 06/05/2024 - budesonide 9 mg TaDE Take 1 tablet by mouth once daily. - isosorbide mononitrate ER (IMDUR) 30 mg 24 hr tablet Take 1 tablet by mouth once daily. - clopidogrel (PLAVIX) 75 mg tablet Take 1 tablet by mouth once daily. - blood sugar diagnostic (BLOOD GLUCOSE TEST) test strip Test blood sugar(s) 2 times daily. Dx: Type 2 DM - Controlled E11.9 Insulin: Yes - allopurinol (ZYLOPRIM) 100 mg tablet Take 1 tablet by mouth once daily. - insulin glargine (BASAGLAR KWIKPEN U-100 INSULIN) 100 unit/mL (3 mL) Inject 10 Units subcutaneously daily at bedtime. - losartan (COZAAR) 50 mg tablet Take 0.5 tablets by mouth once daily. - amLODIPine (NORVASC) 10 mg tablet Take 1 tablet by mouth once daily. In the evening - carvedilol (COREG) 25 mg tablet Take 1 tablet by mouth two times a day. - blood sugar diagnostic (BLOOD GLUCOSE TEST) test strip DM2, controlled. Use once daily to test blood sugar in the morning - blood sugar diagnostic (BLOOD GLUCOSE TEST) test strip 1 Strip three times daily. Test blood sugar(s)3 times daily. Dx: Type 2 DM - Uncontrolled, E11.65 Insulin: Yes - Insulin Kerby, Disposable, (BD ULTRA-FINE BENNY PEN NEEDLE) 32 gauge x 5/32 Use once daily with Lantus as directed - diclofenac sodium (VOLTAREN) 1 % topical gel Apply 2 g to affected area four times daily. - flaxseed oil (OMEGA 3 ORAL) Take by mouth. - hydrocortisone 2.5 % cream Apply 1 application to affected area twice daily. Location: face - ferrous sulfate 325 mg (65 mg iron) tablet Take 325 mg by mouth two times a day. Taking 1 every other day - cetirizine HCl (ZYRTEC) 10 mg chewable tablet Take 10 mg by mouth once daily. - cholecalciferol (VITAMIN D3) 5,000 unit tab Take 5,000 Units by mouth twice daily. - Blood-Glucose Meter (FREESTYLE LITE METER) monitoring kit 1 Each as directed. - Lancets lancets Use as instructed - furosemide (LASIX) 40 mg tablet Take 1 tablet by mouth once daily. - potassium chloride (KLOR-CON 10) 10 mEq tablet Take 1 tablet by mouth once daily. - triamcinolone acetonide (KENALOG) 0.1 % cream Apply 1 application to affected area twice daily as needed (rash). Apply sparingly to area for rash/itching. - CHOLECALCIFEROL, VITAMIN D3, (VITAMIN D3 ORAL) Take 600 mg by mouth once daily. - coenzyme Q10 (COENZYME Q-10) 100 mg cap capsule Take 1 capsule by mouth. - CALTRATE-600 PLUS VITAMIN D3 600 MG-200 UNIT ORAL TAB TAKE TWO TABLETS DAILY. Meds Comments as of 02/29/2008: Antiplatelet drugs (eg, ticlopidine, clopidogrel (plavix), aspirin, abciximab, dipyridamole, eptifibatide, tirofiban): May increase risk of bleeding when taken with diclfenac. Beta-blockers(metoprolol): NSAIDs (diclofenac) may decrease the antihypertensive effect of beta-blockers; monitor carefully Problem List As Of Date 04/16/2024 Noted Resolved GENERAL OSTEOARTHROSIS [M15.9] DIAPHRAGMATIC HERNIA [K44.9] Unspecified cardiovascular disease [I25.10] 09/20/2022 Pure hypercholesterolemia [E78.00] History of prostate cancer [Z85.46] Hypertensive kidney disease with chronic kidney* Abdominal aneurysm without mention of rupture [* 06/05/2020 TENOSYNOV HAND/WRIST NEC [M65.849, M65.839] 06/09/2005 CARPAL TUNNEL SYNDROME [G56.00] 07/02/2005 BENIGN HYPERTENSION [I10] 10/21/2006 (more content not included)... Normal [facility] CNOVon 04-13-2024 DIONY Office Visit (GENSWS ) -- ABRAHAM GAGE ([id number]) 1940 M Date Time Provider Department 04/13/24 2:15 PM CRISTELA ANDERSEN GENBen During your visit today, we recorded the following information about you: Pulse Blood pressure Weight Height 64/minute 116/57 73.2 kg 1.727 m Cristela Andersen APRN.CNP 04/16/2024 8:24 AM Signed HISTORY AND PHYSICAL Abraham Gage : 1940 REFERRING PHYSICIAN: Samson Ragsdale [address] [facility] [id number] CHIEF COMPLAINT: Patient presents with: Consult: Colonoscopy HPI: Abraham is a 83 year old male referred for endoscopy. Abraham notes diarrhea x 6 months AND decreased appetite. PCP Abraham denies abdominal pain.. Abraham notes diarrhea x 6 mos. Watery? +fluctuance Abraham denies constipation. Abraham notes a change in bowel habits. Abraham denies melena. Abraham denies bright red blood per rectum. Abraham notes hemorrhoids. Abraham notes heartburn- using Tums in excess. Abraham denies dysphagia. Abraham denies a history of ulcers/ peptic ulcer disease. +intermittent nausea Denies family history of colon issues. Abraham has a hx of CAD with stents from 2007. Last stress test 2022 EF of 53%. Abraham follows with [facility] had elective cath 06/2023 due to positive stress test. 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 Currently takes plavix. Follows with Dr. Petersen at [facility]. Last OV 07/2023 Abraham has a hx of Alzheimers dementia Abarham has undergone prior endoscopy. Last EGD ANDcolonoscopy 04/2017 with [facility] for anemia Impression: -Findings suggest upper gastritis clopidogrel and aspirin and potassium supplements -Left-sided diverticulosis but no evidence of diverticular bleed -Internal hemorrhoid no evidence of bleeding Small Bowel Capsule 06/2018 IMPRESSION: Duodenal and ileal bleeding Current Outpatient Medications Medication Sig blood sugar diagnostic (BLOOD GLUCOSE TEST) test strip Test blood sugar(s) 2 times daily. Dx: Type 2 DM - Controlled E11.9 Insulin: Yes allopurinol (ZYLOPRIM) 100 mg tablet Take 1 tablet by mouth once daily. insulin glargine (BASAGLAR KWIKPEN U-100 INSULIN) 100 unit/mL (3 mL) Inject 10 Units subcutaneously daily at bedtime. losartan (COZAAR) 50 mg tablet Take 0.5 tablets by mouth once daily. clopidogrel (PLAVIX) 75 mg tablet Take 1 tablet by mouth once daily. amLODIPine (NORVASC) 10 mg tablet Take 1 tablet by mouth once daily. In the evening carvedilol (COREG) 25 mg tablet Take 1 tablet by mouth two times a day. isosorbide mononitrate ER (IMDUR) 30 mg 24 hr tablet Take 1 tablet by mouth once daily. blood sugar diagnostic (BLOOD GLUCOSE TEST) test strip DM2, controlled. Use once daily to test blood sugar in the morning blood sugar diagnostic (BLOOD GLUCOSE TEST) test strip 1 Strip three times daily. Test blood sugar(s)3 times daily. Dx: Type 2 DM - Uncontrolled, E11.65 Insulin: Yes CRANBERRY Insulin Kerby, Disposable, (BD ULTRA-FINE BENNY PEN NEEDLE) 32 gauge x 5/32 Use once daily with Lantus as directed diclofenac sodium (VOLTAREN) 1 % topical gel Apply 2 g to affected area four times daily. flaxseed oil (OMEGA 3 ORAL) Take by mouth. hydrocortisone 2.5 % cream Apply 1 application to affected area twice daily. Location: face ferrous sulfate 325 mg (65 mg iron) tablet Take 325 mg by mouth two times a day. Taking 1 every other day cetirizine HCl (ZYRTEC) 10 mg chewable tablet Take 10 mg by mouth once daily. cholecalciferol (VITAMIN D3) 5,000 unit tab Take 5,000 Units by mouth twice daily. Blood-Glucose Meter (FREESTYLE LITE METER) monitoring kit 1 Each as directed. Lancets lancets Use as instructed furosemide (LASIX) 40 mg tablet Take 1 tablet by mouth once daily. (Patient taking differently: Take 40 mg by mouth once daily. PRN) potassium chloride (KLOR-CON 10) 10 mEq tablet Take 1 tablet by mouth once daily. triamcinolone acetonide (KENALOG) 0.1 % cream Apply 1 application to affected area twice daily as needed (rash). Apply sparingly to area for rash/itching. CHOLECALCIFEROL, VITAMIN D3, (VITAMIN D3 ORAL) Take 600 mg by mouth once daily. coenzyme Q10 (COENZYME Q-10) 100 mg cap capsule Take 1 capsule by mouth. ONE DAILY MULTI-VITAMIN ORAL TAB Take one(1) tablet daily. CALTRATE-600 PLUS VITAMIN D3 600 MG-200 UNIT ORAL TAB TAKE TWO TABLETS DAILY. peg 3350-Electrolytes (GOLYTELY) 236-22.74-6.74 -5.86 gram suspension Take 4,000 mL by mouth one time only for 1 dose. Refer to printed prep instructions from your provider. Current Facility-Administered Medications Medication Dose Route Frequency perflutren lipid microspheres 1.3 mL in NaCl (PF) 0.9% 10 mL injection (DEFINITY) INTRAVENOUS DIRECTED PRN sodium chloride 0.9 % (flush) 10 mL (BD POSIFLUSH) 10 mL INTRAVENOUS DIRECTED PRN ALLERGIES: Atorvastatin, Crestor [Rosuvastatin Calcium], Glucosami (more content not included)... Normal [facility] -- ABRAHAM GAGE ([id number]) 1940 M Date Time Provider Department 04/12/24 SAMSON RAGSDALE [facility] During your visit today, we recorded the following information about you: Lorraine Saravia RN 04/12/2024 1:02 PM Signed Patient calling regarding lab result related question. Information provided. Lorraine Saravia RN Allergies As of Date: 04/12/2024 Noted Allergy Reaction ATORVASTATIN 10/18/2017 16 - Unknown CRESTOR (ROSUVASTATIN CALCIUM) 04/24/2013 14 - Other: See Comments Comments: Muscle pain GLUCOSAMINE 06/27/2017 16 - Unknown Comments: Nerve pain MOTRIN (IBUPROFEN) 01/19/2006 2 - Rash PRAVASTATIN 02/19/2013 14 - Other: See Comments Comments: muscle aches [id number] REDUCTASE INHIBIT*10/09/2014 14 - Other: See Comments Comments: myalgia Date Reviewed: 10/04/2023 Reviewed by: Neyda Jimenez OCCA - Fully Assessed Reason for Visit: Patient Question [0893] Prescriptions as of 04/12/2024 - blood sugar diagnostic (BLOOD GLUCOSE TEST) test strip Test blood sugar(s) 2 times daily. Dx: Type 2 DM - Controlled E11.9 Insulin: Yes - allopurinol (ZYLOPRIM) 100 mg tablet Take 1 tablet by mouth once daily. - insulin glargine (BASAGLAR KWIKPEN U-100 INSULIN) 100 unit/mL (3 mL) Inject 10 Units subcutaneously daily at bedtime. - losartan (COZAAR) 50 mg tablet Take 0.5 tablets by mouth once daily. - clopidogrel (PLAVIX) 75 mg tablet Take 1 tablet by mouth once daily. - amLODIPine (NORVASC) 10 mg tablet Take 1 tablet by mouth once daily. In the evening - carvedilol (COREG) 25 mg tablet Take 1 tablet by mouth two times a day. - isosorbide mononitrate ER (IMDUR) 30 mg 24 hr tablet Take 1 tablet by mouth once daily. - blood sugar diagnostic (BLOOD GLUCOSE TEST) test strip DM2, controlled. Use once daily to test blood sugar in the morning - benzonatate (TESSALON PERLES) 100 mg capsule Take 1 capsule by mouth three times daily as needed for cough. - famotidine (PEPCID) 20 mg tablet Take 1 tablet by mouth at bedtime as needed. - blood sugar diagnostic (BLOOD GLUCOSE TEST) test strip 1 Strip three times daily. Test blood sugar(s)3 times daily. Dx: Type 2 DM - Uncontrolled, E11.65 Insulin: Yes - CRANBERRY - milk thistle/NAC/dandel/turmer (LIVER COMPLEX ORAL) Take by mouth. - Insulin Kerby, Disposable, (BD ULTRA-FINE BENNY PEN NEEDLE) 32 gauge x 32 Use once daily with Lantus as directed - diclofenac sodium (VOLTAREN) 1 % topical gel Apply 2 g to affected area four times daily. - flaxseed oil (OMEGA 3 ORAL) Take by mouth. - hydrocortisone 2.5 % cream Apply 1 application to affected area twice daily. Location: face - ferrous sulfate 325 mg (65 mg iron) tablet Take 325 mg by mouth two times a day. Taking 1 every other day - cetirizine HCl (ZYRTEC) 10 mg chewable tablet Take 10 mg by mouth once daily. - COMPOUNDED PRESCRIPTION kyloic Cholesterol 104 - cholecalciferol (VITAMIN D3) 5,000 unit tab Take 5,000 Units by mouth twice daily. - Blood-Glucose Meter (FREESTYLE LITE METER) monitoring kit 1 Each as directed. - Lancets lancets Use as instructed - furosemide (LASIX) 40 mg tablet Take 1 tablet by mouth once daily. - potassium chloride (KLOR-CON 10) 10 mEq tablet Take 1 tablet by mouth once daily. - VIT C/VIT E/LUTEIN/MIN/OMEGA-3 (OCUVITE ORAL) Take by mouth. - triamcinolone acetonide (KENALOG) 0.1 % cream Apply 1 application to affected area twice daily as needed (rash). Apply sparingly to area for rash/itching. - CHOLECALCIFEROL, VITAMIN D3, (VITAMIN D3 ORAL) Take 600 mg by mouth once daily. - coenzyme Q10 (COENZYME Q-10) 100 mg cap capsule Take 1 capsule by mouth. - ONE DAILY MULTI-VITAMIN ORAL TAB Take one(1) tablet daily. - CALTRATE-600 PLUS VITAMIN D3 600 MG-200 UNIT ORAL TAB TAKE TWO TABLETS DAILY. Facility-Administered Medications as of 04/12/2024 - perflutren lipid microspheres 1.3 mL in NaCl (PF) 0.9% 10 mL injection (DEFINITY) - sodium chloride 0.9 % (flush) 10 mL (BD POSIFLUSH) Meds Comments as of 02/29/2008: Antiplatelet drugs (eg, ticlopidine, clopidogrel (plavix), aspirin, abciximab, dipyridamole, eptifibatide, tirofiban): May increase risk of bleeding when taken with diclfenac. Beta-blockers(metoprolol): NSAIDs (diclofenac) may decrease the antihypertensive effect of beta-blockers; monitor carefully Problem List As Of Date 04/12/2024 Noted Resolved GENERAL OSTEOARTHROSIS [M15.9] DIAPHRAGMATIC HERNIA [K44.9] Unspecified cardiovascular disease [I25.10] 09/20/2022 Pure hypercholesterolemia [E78.00] History of prostate cancer [Z85.46] Hypertensive kidney disease with chronic kidney* Abdominal aneurysm without mention of rupture [* 06/05/2020 TENOSYNOV HAND/WRIST NEC [M65.849, M65.839] 06/09/2005 CARPAL TUNNEL SYNDROME [G56.00] 07/02/2005 BENIGN HYPERTENSION [I10] 10/21/2006 Unspecified constipation (more content not included)... Normal [facility] CNOVon 03-26-2024 CNOV Office Visit (FAMPWS ) -- MALCUIT,ABRAHAM H ([id number]) 1940 M Date Time Provider Department 03/26/24 3:00 PM RAGSDALESAMSON ALCANTARA Jamir ACKERMANPTABBY During your visit today, we recorded the following information about you: Temperature Pulse Respiration Blood pressure 97.4 degrees 64/minute 20/minute 120/60 Weight 73.9 kg Samson Ragsdale, DO 03/29/2024 8:59 AM Signed Patient presents with: 6 Month Exam: diarrhea continuous x 6 months HPI: Abraham Gage is a 83 year old male who presents to the office today for review of health conditions. Concerns today: Diarrhea, he states that this has been present most days for the last 6 months, non bloody. Occasional abdominal cramping. Less appetite. Has lost 14 lbs in the last 6 months since doesn't feel like eating when he is having diarrhea. Some intermittent nausea. CKD, stage 3, has been stable and slightly improved. Trying to get adequate fluid intake in. Avoids NSAIDs Hemoglobin (g/dL) Date Value 03/19/2024 12.5 09/09/2021 13.5 Hematocrit (%) Date Value 03/19/2024 39.3 09/09/2021 42.5 WBC (k/uL) Date Value 03/19/2024 10.63 09/09/2021 9.17 Glucose (mg/dL) Date Value 03/19/2024 83 09/09/2021 75 Potassium (mmol/L) Date Value 03/19/2024 4.3 09/09/2021 4.2 Sodium (mmol/L) Date Value 03/19/2024 142 09/09/2021 142 Chloride (mmol/L) Date Value 03/19/2024 105 09/09/2021 106 CO2 (mmol/L) Date Value 03/19/2024 25 09/09/2021 25 Creatinine (mg/dL) Date Value 03/19/2024 2.05 09/09/2021 2.11 BUN (mg/dL) Date Value 03/19/2024 25 09/09/2021 31 Anion Gap (mmol/L) Date Value 03/19/2024 12 09/09/2021 11 Calcium (mg/dL) Date Value 09/09/2021 9.8 Calcium, Total (mg/dL) Date Value 03/19/2024 9.7 Protein, Total (g/dL) Date Value 03/19/2024 6.8 09/09/2021 7.0 Albumin (g/dL) Date Value 03/19/2024 3.9 09/09/2021 4.2 Bilirubin, Total (mg/dL) Date Value 03/19/2024 0.4 09/09/2021 0.3 Alkaline Phosphatase (U/L) Date Value 03/19/2024 102 09/09/2021 105 AST (U/L) Date Value 03/19/2024 16 09/09/2021 15 ALT (U/L) Date Value 03/19/2024 10 09/09/2021 12 Mr. Gage has past history of diabetes. Since our last visit he denies excessive thirst or increased frequency of urination, chest pain or dyspnea , new or unusual visual symptoms, and low sugar/hypoglycemic reactions. Depression- no. Follows a diabetic diet some of the time. He is compliant with medication(s) and is tolerating med(s) without any side effects. He reports checking his glucose on a once a day schedule with sugars in the <150 range. Patient's last HgA1C was Hemoglobin A1C (%) Date Value 03/19/2024 6.0 09/23/2023 6.1 09/09/2021 6.1 06/08/2021 6.0 ) Last Ophthalmology exam was within the past 12 months Mr. Gage reports history of hyperlipidemia. Current therapy includes diet and exercise. Denies side effects of muscle weakness or achiness. His most recent lipid panels are reviewed. Cholesterol, Total (mg/dL) Date Value 03/19/2024 215 09/09/2021 246 HDL Cholesterol (mg/dL) Date Value 03/19/2024 35 09/09/2021 40 LDL Cholesterol (mg/dL) Date Value 03/19/2024 152 09/09/2021 178 Triglyceride (mg/dL) Date Value 03/19/2024 138 09/09/2021 142 Mr. Gage indicates a history of hypertension and states that he is feeling well and denies any symptoms referable to elevated blood pressure. Specifically denies headache, chest pain, palpitations, dyspnea, and peripheral edema. Patient denies any side effects of his medication(s) and is compliant with their regimen. Last 3 Encounter BP Readings: Date: BP: 03/26/2024 120/60 10/04/2023 137/68 09/26/2023 138/64 He watches his diet for sodium, low fat and low cholesterol some of the time. He does not check BP's generally. Abraham likes to exercise by walking. PAST MEDICAL HISTORY 09/2015: Abdominal aneurysm without mention of rupture Comment: 4.15 cm 04/26/2017: Acute gastritis without mention of hemorrhage Comment: EGD by Cebul 03/24/2022: Advance care planning Comment: Shiloh can help with medical decision making 07/03/2013: AMI (acute myocardial infarction) ([facility]) 05/2014: Carotid atherosclerosis No date: CKD stage G3b/A2, GFR 30-44 and albumin creatinine ratio 30- 299 mg/g ([facility]) Comment: AVOID NEPHROTOXIC MEDICATIONS No date: Diabetes mellitus type 2, uncontrolled, without complications No date: Diaphragmatic hernia without mention of obstruction or gangrene 04/26/2017: Diverticulosis of colon (without mention of hemorrhage) Comment[facility] No date: Esophagitis No date: Generalized osteoarthrosis, unspecified site 04/26/2017: Internal hemorrhoid Comment: colonoscopy by [facility] No date: Iron deficiency anemia No date: Malignant neoplasm of prostate (HCC) No date: Other and unspecified (more content not included)... Normal [facility] CBC W Auto Differential pane l (Bld)on 03-19-2024 Basophils (Bld) [#/Vol] 0.04 10*3/uL Normal <0.11 [facility] Comment on above: Order Comment: Speci men Type: BLOOD SPECIMENOrdering Facility: [facility] Address: [address] [place] [address] Performed By: #### 5 7021-8 ####[facility] LABCLIA [id number] [place] [address] [place] Basophils/100 WBC (Bld) 0.4 % Normal [facility] Comment on above: Order Comment: Speci men Type: BLOOD SPECIMENOrdering Facility: [facility] Address: [address] [place] [address] Performed By: #### 5 7021-8 ####[facility] LABCLIA [id number] [place] [address] [place] Differential cell count method Nom (Bld) Auto Normal [facility] Comment on above: Order Comment: Speci men Type: BLOOD SPECIMENOrdering Facility: [facility] Address: [address] [place] [address] Performed By: #### 5 7021-8 ####[facility] LABCLIA [id number] [place] [address] [place] Eosinophils (Bld) [#/Vol] 0.17 10*3/uL Normal <0.46 [facility] Comment on above: Order Comment: Speci men Type: BLOOD SPECIMENOrdering Facility: [facility] Address: [address] [place] [address] Performed By: #### 5 7021-8 ####[facility] LABCLIA [id number] [place] [address] [place] Eosinophils/100 WBC (Bld) 1.6 % Normal [facility] Comment on above: Order Comment: Speci men Type: BLOOD SPECIMENOrdering Facility: [facility] Address: [address] [place] [address] Performed By: #### 5 7021-8 ####[facility] LABCLIA [id number] [place] [address] [place] Erythrocyte distribution width (RBC) [Ratio] 15.4 % High 11.5-15.0 [facility] Comment on above: Order Comment: Speci men Type: BLOOD SPECIMENOrdering Facility: [facility] Address: [address] [place] [address] Performed By: #### 5 7021-8 ####[facility] LABCLIA [id number] [place] [address] [place] Hematocrit (Bld) [Volume fraction] 39.3 % Normal 39.0-51.0 [facility] Comment on above: Order Comment: Speci men Type: BLOOD SPECIMENOrdering Facility: [facility] Address: [address] [place] [address] Performed By: #### 5 7021-8 ####[facility] LABCLIA [id number] [place] [address] [place] Hemoglobin (Bld) [Mass/Vol] 12.5 g/dL Low 13.0-17.0 [facility] Comment on above: Order Comment: Speci men Type: BLOOD SPECIMENOrdering Facility: [facility] Address: [address] [place] [address] Performed By: #### 5 7021-8 ####[facility] LABCLIA [id number] [place] [address] [place] Immature granulocytes (Bld) [#/Vol] 0.03 10*3/uL Normal <0.10 [facility] Comment on above: Order Comment: Speci men Type: BLOOD SPECIMENOrdering Facility: [facility] Address: [address] [place] [address] Performed By: #### 5 7021-8 ####[facility] LABCLIA [id number] [place] [address] [place] Immature granulocytes/100 WBC (Bld) 0.3 % Normal [facility] Comment on above: Order Comment: Speci men Type: BLOOD SPECIMENOrdering Facility: [facility] Address: [address] [place] [address] Performed By: #### 5 7021-8 ####[facility] LABCLIA [id number] [place] [address] [place] Lymphocytes (Bld) [#/Vol] 2.01 10*3/uL Normal 1.00-4.00 [facility] Comment on above: Order Comment: Speci men Type: BLOOD SPECIMENOrdering Facility: [facility] Address: [address] [place] [address] Performed By: #### 5 7021-8 ####[facility] LABIA [id number] [place] [address] [place] Lymphocytes/100 WBC (Bld) 18.9 % Normal [facility] Comment on above: Order Comment: Speci men Type: BLOOD SPECIMENOrdering Facility: [facility] Address: [address] [place] [address] Performed By: #### 5 7021-8 ####[facility] LABIA [id number] [place] [address] [place] MCH (RBC) [Entitic mass] 28.4 pg Normal 26.0-34.0 [facility] Comment on above: Order Comment: Speci men Type: BLOOD SPECIMENOrdering Facility: [facility] Address: [address] [place] [address] Performed By: #### 5 7021-8 ####[facility] [id number] [place] [address] [place] MCHC (RBC) [Mass/Vol] 31.8 g/dL Normal 30.5-36.0 [facility] Comment on above: Order Comment: Speci men Type: BLOOD SPECIMENOrdering Facility: [facility] Address: [address] [place] [address] Performed By: #### 5 7021-8 ####[facility] LABIA [id number] [place] [address] [place] MCV (RBC) [Entitic vol] 89.3 fL Normal 80.0-100.0 [facility] Comment on above: Order Comment: Speci men Type: BLOOD SPECIMENOrdering Facility: [facility] Address: [address] [place] [address] Performed By: #### 5 7021-8 ####[facility] LABIA [id number] [place] [address] [place] Monocytes (Bld) [#/Vol] 0.89 10*3/uL High <0.87 [facility] Comment on above: Order Comment: Speci men Type: BLOOD SPECIMENOrdering Facility: [facility] Address: [address] [place] [address] Performed By: #### 5 7021-8 ####[facility] LABCLIA [id number] [place] [address] [place] Monocytes/100 WBC (Bld) 8.4 % Normal [facility] Comment on above: Order Comment: Speci men Type: BLOOD SPECIMENOrdering Facility: [facility] Address: [address] [place] [address] Performed By: #### 5 7021-8 ####[facility] LABCLIA [id number] [place] [address] [place] Neutrophils (Bld) [#/Vol] 7.49 10*3/uL Normal 1.45-7.50 [facility] Comment on above: Order Comment: Speci men Type: BLOOD SPECIMENOrdering Facility: [facility] Address: [address] [place] [address] Performed By: #### 5 7021-8 ####[facility] LABCLIA [id number] [place] [address] [place] Neutrophils/100 WBC (Bld) 70.4 % Normal [facility] Comment on above: Order Comment: Speci men Type: BLOOD SPECIMENOrdering Facility: [facility] Address: [address] [place] [address] Performed By: #### 5 7021-8 ####[facility] LABCLIA [id number] [place] [address] [place] Nucleated RBC (Bld) [#/Vol] 10*3/uL Normal <0.01 [facility] Comment on above: Order Comment: Speci men Type: BLOOD SPECIMENOrdering Facility: [facility] Address: [address] [place] [address] Performed By: #### 5 7021-8 ####[facility] LABCLIA [id number] [place] [address] [place] Nucleated RBC/100 WBC (Bld) [Ratio] 0.0 /100 WBC Normal [facility] Comment on above: Order Comment: Speci men Type: BLOOD SPECIMENOrdering Facility: [facility] Address: [address] [place] [address] Performed By: #### 5 7021-8 ####[facility] LABCLIA [id number] [place] [address] [place] Platelet mean volume (Bld) [Entitic vol] 10.0 fL Normal 9.0-12.7 [facility] Comment on above: Order Comment: Speci men Type: BLOOD SPECIMENOrdering Facility: [facility] Address: [address] [place] [address] Performed By: #### 5 7021-8 ####[facility] LABCLIA [id number] [place] [address] [place] Platelets (Bld) [#/Vol] 255 10*3/uL Normal 150-400 [facility] Comment on above: Order Comment: Speci men Type: BLOOD SPECIMENOrdering Facility: [facility] Address: [address] [place] [address] Performed By: #### 5 7021-8 ####[facility] LABCLIA [id number] [place] [address] [place] RBC (Bld) [#/Vol] 4.40 10*6/uL Normal 4.20-6.00 [facility] Comment on above: Order Comment: Speci men Type: BLOOD SPECIMENOrdering Facility: [facility] Address: [address] [place] [address] Performed By: #### 5 7021-8 ####[facility] LABCLIA [id number] [place] [address] [place] WBC (Bld) [#/Vol] 10.63 10*3/uL Normal 3.70-11.00 [facility] Comment on above: Order Comment: Speci men Type: BLOOD SPECIMENOrdering Facility: [facility] Address: [address] [place] [address] Performed By: #### 5 7021-8 ####[facility] LABCLIA [id number] [place] [address] [place] [facility] Comprehensive metabolic 2000 panelon 03-19-2024 Albumin [Mass/Vol] 3.9 g/dL Normal 3.9-4.9 [facility] Comment on above: Order Comment: Speci men Type: BLOOD SPECIMENOrdering Facility: [facility] Address: [address] [place] [address] Performed By: #### 2 4323-8, 99049-7 ####[facility] LABIA [id number] [place] [address] [place] ALP [Catalytic activity/Vol] 102 U/L Normal 38-113 [facility] Comment on above: Order Comment: Speci men Type: BLOOD SPECIMENOrdering Facility: [facility] Address: [address] [place] [address] Performed By: #### 2 4323-8, 80186-2 ####[facility] LABCLIA [id number] [place] [address] [place] ALT [Catalytic activity/Vol] 10 U/L Normal 10-54 [facility] Comment on above: Order Comment: Speci men Type: BLOOD SPECIMENOrdering Facility: [facility] Address: [address] [place] [address] Performed By: #### 2 4323-8, 98156-6 ####[facility] LABCLIA [id number] [id number] [address] [place] Anion gap [Moles/Vol] 12 mmol/L Normal 8-15 [facility] Comment on above: Order Comment: Speci men Type: BLOOD SPECIMENOrdering Facility: [facility] Address: [address] [place] [address] Performed By: #### 2 4323-8, 66032-6 ####[facility] LABCLIA [id number] [place] [address] [place] AST [Catalytic activity/Vol] 16 U/L Normal 14-40 [facility] Comment on above: Order Comment: Speci men Type: BLOOD SPECIMENOrdering Facility: [facility] Address: [address] [place] [address] Performed By: #### 2 4323-8, 13730-2 ####[facility] LABCLIA [id number] [place] [address] [place] Bilirubin [Mass/Vol] 0.4 mg/dL Normal 0.2-1.3 [facility] Comment on above: Order Comment: Speci men Type: BLOOD SPECIMENOrdering Facility: [facility] Address: [address] [place] [address] Performed By: #### 2 4323-8, 98941-1 ####[facility] LABCLIA [id number] [place] [address] [place] Calcium [Mass/Vol] 9.7 mg/dL Normal 8.5-10.2 [facility] Comment on above: Order Comment: Speci men Type: BLOOD SPECIMENOrdering Facility: [facility] Address: [address] [place] [address] Performed By: #### 2 4323-8, 35027-4 ####[facility] LABCLIA [id number] [place] [address] [place] Chloride [Moles/Vol] 105 mmol/L Normal 98-107 [facility] Comment on above: Order Comment: Speci men Type: BLOOD SPECIMENOrdering Facility: [facility] Address: [address] [place] [address] Performed By: #### 2 4323-8, 39609-3 ####[facility] LABCLIA [id number] [place] [address] [place] CO2 [Moles/Vol] 25 mmol/L Normal 22-30 [facility] Comment on above: Order Comment: Speci men Type: BLOOD SPECIMENOrdering Facility: [facility] Address: [address] [place] [address] Performed By: #### 2 4323-8, 54344-2 ####[facility] LABCLIA [id number] [place] [address] [place] Creatinine [Mass/Vol] 2.05 mg/dL High 0.73-1.22 [facility] Comment on above: Order Comment: Speci men Type: BLOOD SPECIMENOrdering Facility: [facility] Address: [address] [place] [address] Performed By: #### 2 4323-8, 68792-4 ####[facility] LABCLIA [id number] [address] [place] Creatinine and Glomerular filtration rate.predicted panel (S/P/Bld) 32 mL/min/1.73m??? Low >=60 [facility] Comment on above: Order Comment: Speci men Type: BLOOD SPECIMENOrdering Facility: [facility] Address: [address] [place] [address] Result Comment: Jeanette mated Glomerular Filtration Rate (eGFR) is calculated using the 2020 CKD-EPI creatinine equation. This equation utilizes serum creatinine, sex, and age as parameters. The creatinine assay has traceable calibration to isotope dilution-mass spectrometry. Refer to KDIGO guidelines for clinical interpretation. In patients with unstable renal function, e.g. those with acute kidney injury, the eGFR may not accurately reflect actual GFR. Performed By: #### 2 4323-8, 08145-9 ####[facility] LABCLIA [id number] [place] [id number] [place] Glucose [Mass/Vol] 83 mg/dL Normal 74-99 [facility] Comment on above: Order Comment: Speci men Type: BLOOD SPECIMENOrdering Facility: [facility] Address: [address] [place] [address] Result Comment: The [place] Diabetes Association (ADA) provides guidance for cutoff values for fasting glucose and random glucose. The ADA defines fasting as no caloric intake for at least 8 hours. Fasting plasma glucose results between 100 to 125 [...] Standards of Medical Care in Diabetes 2016, [place] [employer]. Diabetes Care. 2016.39(Suppl 1). Performed By: #### 2 4323-8, 92985-1 ####[facility] LABCLIA [id number] [place] [address] [place] Potassium [Moles/Vol] 4.3 mmol/L Normal 3.7-5.1 [facility] Comment on above: Order Comment: Speci men Type: BLOOD SPECIMENOrdering Facility: [facility] Address: [address] [place] [address] Performed By: #### 2 4323-8, 99526-0 ####[facility] LABCLIA [id number] [place] [address] [place] Protein [Mass/Vol] 6.8 g/dL Normal 6.3-8.0 [facility] Comment on above: Order Comment: Speci men Type: BLOOD SPECIMENOrdering Facility: [facility] Address: [address] [place] [address] Performed By: #### 2 4323-8, 41709-1 ####[facility] LABCLIA [id number] [place] [address] [place] Sodium [Moles/Vol] 142 mmol/L Normal 136-144 [facility] Comment on above: Order Comment: Ryani men Type: BLOOD SPECIMENOrdering Facility: [facility] Address: [address] [place] [address] Performed By: #### 2 4323-8, 34649-7 ####[facility] LABIA [id number] [place] [address] [place] Urea nitrogen [Mass/Vol] 25 mg/dL High 9-24 [facility] Comment on above: Order Comment: Ryani men Type: BLOOD SPECIMENOrdering Facility: [facility] Address: [address] [place] [address] Performed By: #### 2 4323-8, 72216-3 ####[facility] [id number] [place] [address] [place] HbA1c (Bld)on 03-19-2024 Average glucose Estimated from glycated hemoglobin (Bld) [Mass/Vol] 126 mg/dL Normal [facility] Comment on above: Order Comment: Ryani men Type: BLOOD SPECIMENOrdering Facility: [facility] Address: [address] [place] [address] Result Comment: eAG: (Estimated average glucose) is a calculated value from HgbA1c and is applications sales representative of the average blood glucose level in the last 2-3 month period. Performed By: #### 5 5454-3 ####[facility] LABIA [id number] [place] [address] [place] HbA1c (Bld) [Mass fraction] 6.0 % High 4.3-5.6 [facility] Comment on above: Order Comment: Cyndy men Type: BLOOD SPECIMENOrdering Facility: [facility] Address: [address] [place] [address] Result Comment: [place] Diabetes Association guidelines indicate that patients with HgbA1c in the range 5.7-6.4% are at increased risk for development of diabetes, and intervention by lifestyle modification may be beneficial. HgbA1c greater or equal to 6.5% is considered diagnostic of diabetes. Performed By: #### 5 5454-3 ####[facility] LABCLIA [id number] [place] [address] [place] Lipid 1996 panelon 4 Cholesterol [Mass/Vol] 215 mg/dL High <200 [facility] Comment on above: Order Comment: Speci men Type: BLOOD SPECIMENOrdering Facility: [facility] Address: [address] [place] [address] Result Comment: <200 mg/dL, Desirable 200-239 mg/dL, Borderline high >239 mg/dL, High Performed By: #### 2 4323-8, 80411-7 ####[facility] LABCLIA [id number] [address] [place] Cholesterol in HDL [Mass/Vol] 35 mg/dL Low >39 [facility] Comment on above: Order Comment: Cyndy sinha Type: BLOOD SPECIMENOrdering Facility: [facility] Address: [address] [place] [address] Result Comment: 40-5 9 mg/dL, Acceptable >59 mg/dL, High: Negative risk factor for coronary heart disease <40 mg/dL, Low: Positive risk factor for coronary heart disease Performed By: #### 2 4323-8, 94220-2 ####[facility] LABCLIA [id number] [address] [place] Cholesterol in LDL [Mass/Vol] 152 mg/dL High <100 [facility] Comment on above: Order Comment: Cyndy men Type: BLOOD SPECIMENOrdering Facility: [facility] Address: [address] [place] [address] Result Comment: <100 mg/dL, Optimal 100-129 mg/dL, Near optimal/above optimal 130-159 mg/dL, Borderline high 160-189 mg/dL, High >189 mg/dL, Very high Secondary prevention optimal LDL Cholesterol levels are recommended to be < 70 mg/dL Performed By: #### 2 4323-8, 23462-9 ####[facility] LABCLIA [id number] [place] [address] [place] Cholesterol in LDL/Cholesterol in HDL [Mass ratio] 4.34 {ratio} High <2.54 [facility] Comment on above: Order Comment: Speci men Type: BLOOD SPECIMENOrdering Facility: [facility] Address: [address] [place] [address] Result Comment: Refe rence: 1. National Cholesterol Education Program ATP III Guideline At-A-Glance Quick Desk Reference: National Heart, Lung, and Blood [place]. National Institutes of Health. 2001: NIH Publication No. 01-3305. 2. An International Atherosclerosis Society position paper: global recommendations for the management of dyslipidemia: executive summary, Atherosclerosis. 2014: 232(2):410-413. Performed By: #### 2 4323-8, 38796-9 ####[facility] LABCLIA [id number] [place] [address] [place] Cholesterol in VLDL [Mass/Vol] 28 mg/dL Normal <30 [facility] Comment on above: Order Comment: Speci men Type: BLOOD SPECIMENOrdering Facility: [facility] Address: [address] [place] [address] Performed By: #### 2 4323-8, 48154-1 ####[facility] LABCLIA [id number] [place] [address] [place] Cholesterol non HDL [Mass/Vol] 180 mg/dL High <130 [facility] Comment on above: Order Comment: Speci men Type: BLOOD SPECIMENOrdering Facility: [facility] Address: [address] [place] [address] Result Comment: <130 mg/dL, Optimal 130-159 mg/dL, Near optimal/above optimal 160-189 mg/dL, Borderline high 190-219 mg/dL, High >219 mg/dL, Very high Secondary prevention optimal non HDL Cholesterol levels are recommended to be <100 mg/dL Performed By: #### 2 4323-8, 36650-0 ####[facility] LABCLIA [id number] [place] [address] [place] Cholesterol.total/Ch olesterol in HDL [Mass ratio] 6.14 {ratio} High <5.10 [facility] Comment on above: Order Comment: Speci men Type: BLOOD SPECIMENOrdering Facility: [facility] Address: [address] [place] [address] Performed By: #### 2 4323-8, 70983-4 ####[facility] LABIA [id number] [place] [address] [place] FASTING TIME 12 hrs Normal [facility] Comment on above: Order Comment: Speci men Type: BLOOD SPECIMENOrdering Facility: [facility] Address: [address] [place] [address] Performed By: #### 2 4323-8, 93972-3 ####[facility] LABIA [id number] [place] [address] [place] Triglyceride [Mass/Vol] 138 mg/dL Normal <150 [facility] Comment on above: Order Comment: Speci men Type: BLOOD SPECIMENOrdering Facility: [facility] Address: [address] [place] [address] Result Comment: <150 mg/dL, Normal 150-199 mg/dL, Borderline high 200-499 mg/dL, High >499 mg/dL, Very high Performed By: #### 2 4323-8, 75107-1 ####[facility] LABIA [id number] [place] [address] [place] Mirza 03-09-2024 JOHN Telephone (FAMPWS) -- ABRAHAM GAGE ([id number]) 1940 M Date Time Provider Department 03/09/24 SAMSON RAGSDALE During your visit today, we recorded the following information about you: Caridad Delong MA 03/09/2024 12:18 PM Signed Pt requesting lab orders prior to upcoming appt with JG on 03/26 ROSS Esteves Alyson, APRN.JAIRON 03/09/2024 12:26 PM Signed Labs are placed. Need to be fasting for these. Thank you, Desirae Irving APRN.Caridad Wilson MA 03/09/2024 12:29 PM Signed Pt informed, verbalized understanding Caridad Delong MA Allergies As of Date: 03/09/2024 Noted Allergy Reaction ATORVASTATIN 10/18/2017 16 - Unknown CRESTOR (ROSUVASTATIN CALCIUM) 04/24/2013 14 - Other: See Comments Comments: Muscle pain GLUCOSAMINE 06/27/2017 16 - Unknown Comments: Nerve pain MOTRIN (IBUPROFEN) 01/19/2006 2 - Rash PRAVASTATIN 02/19/2013 14 - Other: See Comments Comments: muscle aches ADWWVDA-AMY-RCD REDUCTASE INHIBIT*10/09/2014 14 - Other: See Comments Comments: myalgia Date Reviewed: 10/04/2023 Reviewed by: Neyda Jimenez OCCA - Fully Assessed Reason for Visit: Orders [681] Primary Visit Diagnosis: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 - blood sugar diagnostic (BLOOD GLUCOSE TEST) test strip Test blood sugar(s) 2 times daily. Dx: Type 2 DM - Controlled E11.9 Insulin: Yes - losartan (COZAAR) 50 mg tablet Take 0.5 tablets by mouth once daily. - clopidogrel (PLAVIX) 75 mg tablet Take 1 tablet by mouth once daily. - amLODIPine (NORVASC) 10 mg tablet Take 1 tablet by mouth once daily. In the evening - carvedilol (COREG) 25 mg tablet Take 1 tablet by mouth two times a day. - isosorbide mononitrate ER (IMDUR) 30 mg 24 hr tablet Take 1 tablet by mouth once daily. - allopurinol (ZYLOPRIM) 100 mg tablet Take 1 tablet by mouth once daily. - blood sugar diagnostic (BLOOD GLUCOSE TEST) test strip DM2, controlled. Use once daily to test blood sugar in the morning - benzonatate (TESSALON PERLES) 100 mg capsule Take 1 capsule by mouth three times daily as needed for cough. - famotidine (PEPCID) 20 mg tablet Take 1 tablet by mouth at bedtime as needed. - blood sugar diagnostic (BLOOD GLUCOSE TEST) test strip 1 Strip three times daily. Test blood sugar(s)3 times daily. Dx: Type 2 DM - Uncontrolled, E11.65 Insulin: Yes - CRANBERRY - milk thistle/NAC/dandel/turmer (LIVER COMPLEX ORAL) Take by mouth. - Insulin Kerby, Disposable, (BD ULTRA-FINE BENNY PEN NEEDLE) 32 gauge x 5/32 Use once daily with Lantus as directed - diclofenac sodium (VOLTAREN) 1 % topical gel Apply 2 g to affected area four times daily. - flaxseed oil (OMEGA 3 ORAL) Take by mouth. - hydrocortisone 2.5 % cream Apply 1 application to affected area twice daily. Location: face - ferrous sulfate 325 mg (65 mg iron) tablet Take 325 mg by mouth two times a day. Taking 1 every other day - cetirizine HCl (ZYRTEC) 10 mg chewable tablet Take 10 mg by mouth once daily. - COMPOUNDED PRESCRIPTION kyloic Cholesterol 104 - cholecalciferol (VITAMIN D3) 5,000 unit tab Take 5,000 Units by mouth twice daily. - Blood-Glucose Meter (FREESTYLE LITE METER) monitoring kit 1 Each as directed. - Lancets lancets Use as instructed - furosemide (LASIX) 40 mg tablet Take 1 tablet by mouth once daily. - potassium chloride (KLOR-CON 10) 10 mEq tablet Take 1 tablet by mouth once daily. - VIT C/VIT E/LUTEIN/MIN/OMEGA-3 (OCUVITE ORAL) Take by mouth. - triamcinolone acetonide (KENALOG) 0.1 % cream Apply 1 application to affected area twice daily as needed (rash). Apply sparingly to area for rash/itching. - CHOLECALCIFEROL, VITAMIN D3, (VITAMIN D3 ORAL) Take 600 mg by mouth once daily. - coenzyme Q10 (COENZYME Q-10) 100 mg cap capsule Take 1 capsule by mouth. - ONE DAILY MULTI-VITAMIN ORAL TAB Take one(1) tablet daily. - CALTRATE-600 PLUS VITAMIN D3 600 MG-200 UNIT ORAL TAB TAKE TWO TABLETS DAILY. Facility-Administered Medications as of 03/09/2024 - perflutren lipid microspheres 1.3 mL in NaCl (PF) 0.9% 10 mL injection (DEFINITY) - sodium chloride 0.9 % (flush) 10 mL (BD POSIFLUSH) Meds Comments as of 02/29/2008: Antiplatelet drugs (eg, ticlopidine, clopidogrel (plavix), aspirin, abciximab, dipyridamole, eptifibatide, t (more content not included)... Normal [facility] .Auto Diffon 05-28-2023 Basophil, Absolute 0.0 10 3/mcL Normal 0.0-0.3 [facility] ([place]) Comment on above: Performed By: #### A DIFF, ANEU, GFR, BMP, CBC #### [address] [address] Basophils/100 WBC (Bld) 0.2 % Normal 0.0-2.5 [facility] ([place]) Comment on above: Performed By: #### A DIFF, ANEU, GFR, BMP, CBC #### [address] [address] Eosinophil, Absolute 0.1 10 3/mcL Normal 0.0-0.7 [facility] ([place]) Comment on above: Performed By: #### A DIFF, ANEU, GFR, BMP, CBC #### [address] [address] Eosinophils/100 WBC (Bld) 0.7 % Normal 0.0-6.0 [facility] ([place]) Comment on above: Performed By: #### A DIFF, ANEU, GFR, BMP, CBC #### [address] [address] Lymphocyte, Absolute 1.8 10 3/mcL Normal 0.9-4.3 [facility] ([place]) Comment on above: Performed By: #### A DIFF, ANEU, GFR, BMP, CBC #### [address] [address] Lymphocytes/100 WBC (Bld) 14.6 % Low 20.0-40.0 [facility] ([place]) Comment on above: Performed By: #### A DIFF, ANEU, GFR, BMP, CBC #### [address] [address] Monocyte, Absolute 1.1 10 3/mcL Normal 0.1-1.4 [facility] ([place]) Comment on above: Performed By: #### A DIFF, ANEU, GFR, BMP, CBC #### [address] [address] Monocytes/100 WBC (Bld) 9.6 % Normal 2.0-13.0 [facility] ([place]) Comment on above: Performed By: #### A DIFF, ANEU, GFR, BMP, CBC #### [address] [address] Neutrophils/100 WBC (Bld) 74.9 % Normal 50.0-75.0 [facility] ([place]) Comment on above: Performed By: #### A DIFF, ANEU, GFR, BMP, CBC #### [address] [address] .GFRon 05-28-2023 GFR Non- 38 ml/min/1.73sqm Normal [facility] ([place]) Comment on above: Result Comment: GFR Population mean for , Non- Americans Ages 20-29 = 116 mL/min/1.73 sq.m. Ages 30-39 = 107 mL/min/1.73 sq.m. Ages 40-49 = 99 mL/min/1.73 sq.m. Ages 50-59 = 93 mL/min/1.73 sq.m. Ages 60-69 = 85 mL/min/1.73 sq.m. Ages 70+ = 75 mL/min/1.73 sq.m. Chronic Kidney Disease: Less than 60 mL/min/1.73 square meters End Stage Renal Disease: Less than 15 mL/min/1.73 square meters Performed By: #### A DIFF, ANEU, GFR, BMP, CBC #### [address] [address] GFR 46 ml/min/1.73sqm Normal [facility] ([place]) Comment on above: Result Comment: GFR Population mean for , Non- Americans Ages 20-29 = 116 mL/min/1.73 sq.m. Ages 30-39 = 107 mL/min/1.73 sq.m. Ages 40-49 = 99 mL/min/1.73 sq.m. Ages 50-59 = 93 mL/min/1.73 sq.m. Ages 60-69 = 85 mL/min/1.73 sq.m. Ages 70+ = 75 mL/min/1.73 sq.m. Chronic Kidney Disease: Less than 60 mL/min/1.73 square meters End Stage Renal Disease: Less than 15 mL/min/1.73 square meters Performed By: #### A DIFF, ANEU, GFR, BMP, CBC #### [address] [address] .NEUABSon 05-28-2023 Neutrophil, Absolute 9.0 10 3/mcL High 2.3-8.1 [facility] ([place]) Comment on above: Performed By: #### A DIFF, ANEU, GFR, BMP, CBC #### [address] [address] BMPon 05-28-2023 BUN/Creatinine Ratio 12.6 ratio Normal 10.0-22.0 [facility] ([place]) Comment on above: Performed By: #### A DIFF, ANEU, GFR, BMP, CBC #### [address] [address] Calcium [Mass/Vol] 8.4 mg/dL Low 8.7-10.4 [facility] ([place]) Comment on above: Performed By: #### A DIFF, ANEU, GFR, BMP, CBC #### [address] [address] Chloride [Moles/Vol] 111 mmol/L High 98-110 [facility] ([place]) Comment on above: Performed By: #### A DIFF, ANEU, GFR, BMP, CBC #### [address] [address] CO2 [Moles/Vol] 27 mmol/L Normal 22-32 [facility] ([place]) Comment on above: Performed By: #### A DIFF, ANEU, GFR, BMP, CBC #### [address] [address] Creatinine [Mass/Vol] 1.75 mg/dL High 0.60-1.40 [facility] ([place]) Comment on above: Performed By: #### A DIFF, ANEU, GFR, BMP, CBC #### [address] [address] Electrolyte Balance 5.0 mEq/L Normal 4.0-15.0 [facility] ([place]) Comment on above: Performed By: #### A DIFF, ANEU, GFR, BMP, CBC #### [address] [address] Glucose [Mass/Vol] 121 mg/dL High 82-115 [facility] ([place]) Comment on above: Performed By: #### A DIFF, ANEU, GFR, BMP, CBC #### [address] [address] Potassium [Moles/Vol] 4.2 mmol/L Normal 3.5-5.0 [facility] ([place]) Comment on above: Performed By: #### A DIFF, ANEU, GFR, BMP, CBC #### [address] [address] Sodium [Moles/Vol] 143 mmol/L Normal 136-145 [facility] ([place]) Comment on above: Performed By: #### A DIFF, ANEU, GFR, BMP, CBC #### [place] [address] Urea nitrogen [Mass/Vol] 22.0 mg/dL Normal 8.0-22.0 [facility] ([place]) Comment on above: Performed By: #### A DIFF, ANEU, GFR, BMP, CBC #### [place] [address] CBCon 05-28-2023 Erythrocyte distribution width (RBC) [Ratio] 14.9 % Normal 11.5-15.5 [facility] ([place]) Comment on above: Performed By: #### A DIFF, ANEU, GFR, BMP, CBC #### [place] [address] Hematocrit (Bld) [Volume fraction] 27.7 % Low 40.0-52.0 [facility] ([place] Comment on above: Performed By: #### A DIFF, ANEU, GFR, BMP, CBC #### [place] [address] Hgb 9.0 G/dL Low 13.0-17.5 [facility] ([place]) Comment on above: Performed By: #### A DIFF, ANEU, GFR, BMP, CBC #### [place] [address] MCH (RBC) [Entitic mass] 29.0 pg Normal 27.0-33.0 [facility] ([place]) Comment on above: Performed By: #### A DIFF, ANEU, GFR, BMP, CBC #### [place] [address] MCHC 32.6 G/dL Normal 32.0-36.0 [facility] ([place] Comment on above: Performed By: #### A DIFF, ANEU, GFR, BMP, CBC #### [place] [address] MCV (RBC) [Entitic vol] 89.2 fL Normal 81.0-100.0 [facility] ([place]) Comment on above: Performed By: #### A DIFF, ANEU, GFR, BMP, CBC #### [place] [address] Platelet 205 10 3/mcL Normal 150-450 [facility] ([place]) Comment on above: Performed By: #### A DIFF, ANEU, GFR, BMP, CBC #### [place] [address] [place] [address] Platelet mean volume (Bld) [Entitic vol] 8.1 fL Normal 6.4-10.5 [facility] ([place] Comment on above: Performed By: #### A DIFF, ANEU, GFR, BMP, CBC #### [address] [address] RBC 3.11 10 6/mcL Low 4.50-6.00 [facility] ([place]) Comment on above: Performed By: #### A DIFF, ANEU, GFR, BMP, CBC #### [place] [address] [place] [address] WBC 12.0 10 3/mcL High 4.5-10.8 [facility] ([place]) Comment on above: Performed By: #### A DIFF, ANEU, GFR, BMP, CBC #### [address] [address] LABORATORYOrdered By: SYSTEM SYSTEM on 05-28-2023 Basophils (Bld) [#/Vol] 0.0 103/mcL Invalid Interpretation Code 0.0 - 0.3 10^3/mcL Workflow SS Basophils/100 WBC (Bld) 0.2 % Invalid Interpretation Code 0.0 - 2.5 % AH Workflow SS Calcium [Mass/Vol] 8.4 mg/dL Invalid Interpretation Code 8.7 - 10.4 mg/dL ADM SS Chloride [Moles/Vol] 111 mmol/L Invalid Interpretation Code 98 - 110 mEq/L ADM SS CO2 [Moles/Vol] 27 mmol/L Invalid Interpretation Code 22 - 32 mEq/L ADM SS Creatinine [Mass/Vol] 1.75 mg/dL Invalid Interpretation Code 0.60 - 1.40 mg/dL ADM SS Electrolyte Balance 5.0 mEq/L Invalid Interpretation Code 4.0 - 15.0 mEq/L ADM SS Eosinophils (Bld) [#/Vol] 0.1 103/mcL Invalid Interpretation Code 0.0 - 0.7 10^3/mcL AH Workflow SS Eosinophils/100 WBC (Bld) 0.7 % Invalid Interpretation Code 0.0 - 6.0 % Workflow SS Erythrocyte distribution width (RBC) [Ratio] 14.9 % Invalid Interpretation Code 11.5 - 15.5 % Workflow SS GFR/1.73 sq M.predicted among blacks MDRD (S/P/Bld) [Vol rate/Area] 46 ml/min/1.73sqm Invalid Interpretation Code [facility] Comment on above: Interpretive Data: GFR Population mean for , Non- Americans Ages 20-29 = 116 mL/min/1.73 sq.m. Ages 30-39 = 107 mL/min/1.73 sq.m. Ages 40-49 = 99 mL/min/1.73 sq.m. Ages 50-59 = 93 mL/min/1.73 sq.m. Ages 60-69 = 85 mL/min/1.73 sq.m. Ages 70+ = 75 mL/min/1.73 sq.m. Chronic Kidney Disease: Less than 60 mL/min/1.73 square meters End Stage Renal Disease: Less than 15 mL/min/1.73 square meters GFR/1.73 sq M.predicted among non-blacks MDRD (S/P/Bld) [Vol rate/Area] 38 ml/min/1.73sqm Invalid Interpretation Code [facility] Comment on above: Interpretive Data: GFR Population mean for , Non- Americans Ages 20-29 = 116 mL/min/1.73 sq.m. Ages 30-39 = 107 mL/min/1.73 sq.m. Ages 40-49 = 99 mL/min/1.73 sq.m. Ages 50-59 = 93 mL/min/1.73 sq.m. Ages 60-69 = 85 mL/min/1.73 sq.m. Ages 70+ = 75 mL/min/1.73 sq.m. Chronic Kidney Disease: Less than 60 mL/min/1.73 square meters End Stage Renal Disease: Less than 15 mL/min/1.73 square meters Glucose [Mass/Vol] 121 mg/dL Invalid Interpretation Code 82 - 115 mg/dL [facility] Hematocrit (Bld) [Volume fraction] 27.7 % Invalid Interpretation Code 40.0 - 52.0 % Workflow SS Hemoglobin (Bld) [Mass/Vol] 9.0 G/dL Invalid Interpretation Code 13.0 - 17.5 G/dL AH Workflow SS Lymphocytes (Bld) [#/Vol] 1.8 103/mcL Invalid Interpretation Code 0.9 - 4.3 10^3/mcL AH Workflow SS Lymphocytes/100 WBC (Bld) 14.6 % Invalid Interpretation Code 20.0 - 40.0 % AH Workflow SS Magnesium [Mass/Vol] 1.8 mg/dL Invalid Interpretation Code 1.6 - 2.4 mg/dL ADM SS MCH (RBC) [Entitic mass] 29.0 pg Invalid Interpretation Code 27.0 - 33.0 pg AH Workflow SS MCHC 32.6 G/dL Invalid Interpretation Code 32.0 - 36.0 G/dL Workflow SS MCV (RBC) [Entitic vol] 89.2 fL Invalid Interpretation Code 81.0 - 100.0 fL Workflow SS Monocytes (Bld) [#/Vol] 1.1 103/mcL Invalid Interpretation Code 0.1 - 1.4 10^3/mcL AH Workflow SS Monocytes/100 WBC (Bld) 9.6 % Invalid Interpretation Code 2.0 - 13.0 % AH Workflow SS Neutrophils (Bld) [#/Vol] 9.0 103/mcL Invalid Interpretation Code 2.3 - 8.1 10^3/mcL AH Workflow SS Neutrophils/100 WBC (Bld) 74.9 % Invalid Interpretation Code 50.0 - 75.0 % AH Workflow SS Platelet mean volume (Bld) [Entitic vol] 8.1 fL Invalid Interpretation Code 6.4 - 10.5 fL Workflow SS Platelets (Bld) [#/Vol] 205 103/mcL Invalid Interpretation Code 150 - 450 10^3/mcL AH Workflow SS Potassium [Moles/Vol] 4.2 mmol/L Invalid Interpretation Code 3.5 - 5.0 mEq/L ADM SS RBC (Bld) [#/Vol] 3.11 106/mcL Invalid Interpretation Code 4.50 - 6.00 10^6/mcL AH Workflow SS Sodium [Moles/Vol] 143 mmol/L Invalid Interpretation Code 136 - 145 mEq/L ADM SS Urea nitrogen [Mass/Vol] 22.0 mg/dL Invalid Interpretation Code 8.0 - 22.0 mg/dL ADM SS Urea nitrogen/Creatinine [Mass ratio] 12.6 ratio Invalid Interpretation Code 10.0 - 22.0 ratio AH ADM SS WBC (Bld) [#/Vol] 12.0 103/mcL Invalid Interpretation Code 4.5 - 10.8 10^3/mcL AH Workflow SS MGon 05-28-2023 Magnesium [Mass/Vol] 1.8 mg/dL Normal 1.6-2.4 [facility] ([place]) Comment on above: Performed By: #### A DIFF, ANEU, GFR, BMP, CBC #### [address] [address] .Auto Diffon 05-27-2023 Basophil, Absolute 0.0 10 3/mcL Normal 0.0-0.3 [facility] ([place]) Comment on above: Performed By: #### M G, ADIFF, BMP, GFR, ANEU, CBC #### [address] [address] Basophils/100 WBC (Bld) 0.2 % Normal 0.0-2.5 [facility] ([place]) Comment on above: Performed By: #### M G, ADIFF, BMP, GFR, ANEU, CBC #### [address] [address] Eosinophil, Absolute 0.3 10 3/mcL Normal 0.0-0.7 [facility] ([place]) Comment on above: Performed By: #### M G, ADIFF, BMP, GFR, ANEU, CBC #### [address] [address] Eosinophils/100 WBC (Bld) 2.4 % Normal 0.0-6.0 [facility] ([place]) Comment on above: Performed By: #### M G, ADIFF, BMP, GFR, ANEU, CBC #### [address] [address] Lymphocyte, Absolute 2.5 10 3/mcL Normal 0.9-4.3 [facility] ([place]) Comment on above: Performed By: #### M G, ADIFF, BMP, GFR, ANEU, CBC #### [address] [address] Lymphocytes/100 WBC (Bld) 23.0 % Normal 20.0-40.0 [facility] ([place]) Comment on above: Performed By: #### M G, ADIFF, BMP, GFR, ANEU, CBC #### [address] [address] Monocyte, Absolute 1.0 10 3/mcL Normal 0.1-1.4 [facility] ([place]) Comment on above: Performed By: #### M G, ADIFF, BMP, GFR, ANEU, CBC #### [address] [address] Monocytes/100 WBC (Bld) 9.2 % Normal 2.0-13.0 [facility] ([place]) Comment on above: Performed By: #### M G, ADIFF, BMP, GFR, ANEU, CBC #### [address] [address] Neutrophils/100 WBC (Bld) 65.2 % Normal 50.0-75.0 [facility] ([place]) Comment on above: Performed By: #### M G, ADIFF, BMP, GFR, ANEU, CBC #### [address] [address] .GFRon 05-27-2023 GFR 40 ml/min/1.73sqm Normal [facility] ([place]) Comment on above: Result Comment: GFR Population mean for , Non- Americans Ages 20-29 = 116 mL/min/1.73 sq.m. Ages 30-39 = 107 mL/min/1.73 sq.m. Ages 40-49 = 99 mL/min/1.73 sq.m. Ages 50-59 = 93 mL/min/1.73 sq.m. Ages 60-69 = 85 mL/min/1.73 sq.m. Ages 70+ = 75 mL/min/1.73 sq.m. Chronic Kidney Disease: Less than 60 mL/min/1.73 square meters End Stage Renal Disease: Less than 15 mL/min/1.73 square meters Performed By: #### A DIFF, ANEU, GFR, BMP, CBC #### [address] [address] GFR Non- 33 ml/min/1.73sqm Normal [facility] ([place]) Comment on above: Result Comment: GFR Population mean for , Non- Americans Ages 20-29 = 116 mL/min/1.73 sq.m. Ages 30-39 = 107 mL/min/1.73 sq.m. Ages 40-49 = 99 mL/min/1.73 sq.m. Ages 50-59 = 93 mL/min/1.73 sq.m. Ages 60-69 = 85 mL/min/1.73 sq.m. Ages 70+ = 75 mL/min/1.73 sq.m. Chronic Kidney Disease: Less than 60 mL/min/1.73 square meters End Stage Renal Disease: Less than 15 mL/min/1.73 square meters Performed By: #### A DIFF, ANEU, GFR, BMP, CBC #### [address] [address] .NEUABSon 05-27-2023 Neutrophil, Absolute 7.2 10 3/mcL Normal 2.3-8.1 [facility] ([place]) Comment on above: Performed By: #### M G, ADIFF, BMP, GFR, ANEU, CBC #### [address] [address] BMPon 05-27-2023 BUN/Creatinine Ratio 11.3 ratio Normal 10.0-22.0 [facility] ([place]) Comment on above: Performed By: #### A DIFF, ANEU, GFR, BMP, CBC #### [address] [address] Calcium [Mass/Vol] 8.6 mg/dL Low 8.7-10.4 [facility] ([place]) Comment on above: Performed By: #### A DIFF, ANEU, GFR, BMP, CBC #### [address] [address] Chloride [Moles/Vol] 110 mmol/L Normal 98-110 [facility] ([place]) Comment on above: Performed By: #### A DIFF, ANEU, GFR, BMP, CBC #### [address] [address] CO2 [Moles/Vol] 30 mmol/L Normal 22-32 [facility] ([place]) Comment on above: Performed By: #### A DIFF, ANEU, GFR, BMP, CBC #### [place] [address] Creatinine [Mass/Vol] 1.94 mg/dL High 0.60-1.40 [facility] ([place]) Comment on above: Performed By: #### A DIFF, ANEU, GFR, BMP, CBC #### [place] [address] Electrolyte Balance 2.0 mEq/L Low 4.0-15.0 [facility] ([place]) Comment on above: Performed By: #### A DIFF, ANEU, GFR, BMP, CBC #### [place] [address] Glucose [Mass/Vol] 105 mg/dL Normal 82-115 [facility] ([place]) Comment on above: Performed By: #### A DIFF, ANEU, GFR, BMP, CBC #### [place] [address] Potassium [Moles/Vol] 4.1 mmol/L Normal 3.5-5.0 [facility] ([place]) Comment on above: Performed By: #### A DIFF, ANEU, GFR, BMP, CBC #### [place] [address] Sodium [Moles/Vol] 142 mmol/L Normal 136-145 [facility] ([place] Comment on above: Performed By: #### A DIFF, ANEU, GFR, BMP, CBC #### [address] [address] Urea nitrogen [Mass/Vol] 22.0 mg/dL Normal 8.0-22.0 [facility] ([place]) Comment on above: Performed By: #### A DIFF, ANEU, GFR, BMP, CBC #### [address] [address] CBCon 05-27-2023 Erythrocyte distribution width (RBC) [Ratio] 15.4 % Normal 11.5-15.5 [facility] ([place]) Comment on above: Performed By: #### M G, ADIFF, BMP, GFR, ANEU, CBC #### [place] [address] Hematocrit (Bld) [Volume fraction] 33.3 % Low 40.0-52.0 [facility] ([place]) Comment on above: Performed By: #### M G, ADIFF, BMP, GFR, ANEU, CBC #### [place] [address] Hgb 10.9 G/dL Low 13.0-17.5 [facility] ([place]) Comment on above: Performed By: #### M G, ADIFF, BMP, GFR, ANEU, CBC #### [place] [address] MCH (RBC) [Entitic mass] 29.2 pg Normal 27.0-33.0 [facility] ([place]) Comment on above: Performed By: #### M G, ADIFF, BMP, GFR, ANEU, CBC #### [place] [address] MCHC 32.6 G/dL Normal 32.0-36.0 [facility] ([place] Comment on above: Performed By: #### M G, ADIFF, BMP, GFR, ANEU, CBC #### [place] [address] MCV (RBC) [Entitic vol] 89.6 fL Normal 81.0-100.0 [facility] ([place]) Comment on above: Performed By: #### M G, ADIFF, BMP, GFR, ANEU, CBC #### [place] [address] Platelet 228 10 3/mcL Normal 150-450 [facility] ([place]) Comment on above: Performed By: #### M G, ADIFF, BMP, GFR, ANEU, CBC #### [place] [address] Platelet mean volume (Bld) [Entitic vol] 7.9 fL Normal 6.4-10.5 [facility] ([place] Comment on above: Performed By: #### M G, ADIFF, BMP, GFR, ANEU, CBC #### [address] [address] RBC 3.72 10 6/mcL Low 4.50-6.00 [facility] ([place] Comment on above: Performed By: #### M G, ADIFF, BMP, GFR, ANEU, CBC #### [address] [address] WBC 11.1 10 3/mcL High 4.5-10.8 [facility] ([place]) Comment on above: Performed By: #### M G, ADIFF, BMP, GFR, ANEU, CBC #### [place] [id number] [address] [place] [id number] LABORATORYOrdered By: Milena Mccain on 05-27-2023 Cholesterol [Mass/Vol] 163 mg/dL Invalid Interpretation Code 50 - 199 mg/dL ADM SS Comment on above: Interpretive Data: C holesterol Reference Interval: Less than 200 Desirable 200-239 Borderline high risk 240 and above High risk Cholesterol in HDL [Mass/Vol] 31 mg/dL Invalid Interpretation Code 40 - 59 mg/dL ADM SS Cholesterol in LDL [Mass/Vol] 100 mg/dL Invalid Interpretation Code 0 - 129 mg/dL ADM SS Triglyceride [Mass/Vol] 160 mg/dL Invalid Interpretation Code 3 - 149 mg/dL ADM SS LABORATORYOrdered By: SYSTEM SYSTEM on 05-27-2023 Basophils (Bld) [#/Vol] 0.0 103/mcL Invalid Interpretation Code 0.0 - 0.3 10^3/mcL AH Workflow SS Basophils/100 WBC (Bld) 0.2 % Invalid Interpretation Code 0.0 - 2.5 % Workflow SS Calcium [Mass/Vol] 8.6 mg/dL Invalid Interpretation Code 8.7 - 10.4 mg/dL ADM SS Chloride [Moles/Vol] 110 mmol/L Invalid Interpretation Code 98 - 110 mEq/L ADM SS CO2 [Moles/Vol] 30 mmol/L Invalid Interpretation Code 22 - 32 mEq/L ADM SS Creatinine [Mass/Vol] 1.94 mg/dL Invalid Interpretation Code 0.60 - 1.40 mg/dL ADM SS Electrolyte Balance 2.0 mEq/L Invalid Interpretation Code 4.0 - 15.0 mEq/L ADM SS Eosinophils (Bld) [#/Vol] 0.3 103/mcL Invalid Interpretation Code 0.0 - 0.7 10^3/mcL Workflow SS Eosinophils/100 WBC (Bld) 2.4 % Invalid Interpretation Code 0.0 - 6.0 % Workflow SS Erythrocyte distribution width (RBC) [Ratio] 15.4 % Invalid Interpretation Code 11.5 - 15.5 % Workflow SS GFR/1.73 sq M.predicted among blacks MDRD (S/P/Bld) [Vol rate/Area] 40 ml/min/1.73sqm Invalid Interpretation Code [facility] Comment on above: Interpretive Data: GFR Population mean for , Non- Americans Ages 20-29 = 116 mL/min/1.73 sq.m. Ages 30-39 = 107 mL/min/1.73 sq.m. Ages 40-49 = 99 mL/min/1.73 sq.m. Ages 50-59 = 93 mL/min/1.73 sq.m. Ages 60-69 = 85 mL/min/1.73 sq.m. Ages 70+ = 75 mL/min/1.73 sq.m. Chronic Kidney Disease: Less than 60 mL/min/1.73 square meters End Stage Renal Disease: Less than 15 mL/min/1.73 square meters GFR/1.73 sq M.predicted among non-blacks MDRD (S/P/Bld) [Vol rate/Area] 33 ml/min/1.73sqm Invalid Interpretation Code [facility] Comment on above: Interpretive Data: GFR Population mean for , Non- Americans Ages 20-29 = 116 mL/min/1.73 sq.m. Ages 30-39 = 107 mL/min/1.73 sq.m. Ages 40-49 = 99 mL/min/1.73 sq.m. Ages 50-59 = 93 mL/min/1.73 sq.m. Ages 60-69 = 85 mL/min/1.73 sq.m. Ages 70+ = 75 mL/min/1.73 sq.m. Chronic Kidney Disease: Less than 60 mL/min/1.73 square meters End Stage Renal Disease: Less than 15 mL/min/1.73 square meters Glucose [Mass/Vol] 105 mg/dL Invalid Interpretation Code 82 - 115 mg/dL [facility] Hematocrit (Bld) [Volume fraction] 33.3 % Invalid Interpretation Code 40.0 - 52.0 % AH Workflow SS Hemoglobin (Bld) [Mass/Vol] 10.9 G/dL Invalid Interpretation Code 13.0 - 17.5 G/dL AH Workflow SS Lymphocytes (Bld) [#/Vol] 2.5 103/mcL Invalid Interpretation Code 0.9 - 4.3 10^3/mcL AH Workflow SS Lymphocytes/100 WBC (Bld) 23.0 % Invalid Interpretation Code 20.0 - 40.0 % AH Workflow SS Magnesium [Mass/Vol] 2.1 mg/dL Invalid Interpretation Code 1.6 - 2.4 mg/dL AH ADM SS MCH (RBC) [Entitic mass] 29.2 pg Invalid Interpretation Code 27.0 - 33.0 pg AH Workflow SS MCHC 32.6 G/dL Invalid Interpretation Code 32.0 - 36.0 G/dL Workflow SS MCV (RBC) [Entitic vol] 89.6 fL Invalid Interpretation Code 81.0 - 100.0 fL AH Workflow SS Monocytes (Bld) [#/Vol] 1.0 103/mcL Invalid Interpretation Code 0.1 - 1.4 10^3/mcL AH Workflow SS Monocytes/100 WBC (Bld) 9.2 % Invalid Interpretation Code 2.0 - 13.0 % AH Workflow SS Neutrophils (Bld) [#/Vol] 7.2 103/mcL Invalid Interpretation Code 2.3 - 8.1 10^3/mcL AH Workflow SS Neutrophils/100 WBC (Bld) 65.2 % Invalid Interpretation Code 50.0 - 75.0 % AH Workflow SS Platelet mean volume (Bld) [Entitic vol] 7.9 fL Invalid Interpretation Code 6.4 - 10.5 fL AH Workflow SS Platelets (Bld) [#/Vol] 228 103/mcL Invalid Interpretation Code 150 - 450 10^3/mcL AH Workflow SS Potassium [Moles/Vol] 4.1 mmol/L Invalid Interpretation Code 3.5 - 5.0 mEq/L AH ADM SS RBC (Bld) [#/Vol] 3.72 106/mcL Invalid Interpretation Code 4.50 - 6.00 10^6/mcL AH Workflow SS Sodium [Moles/Vol] 142 mmol/L Invalid Interpretation Code 136 - 145 mEq/L ADM SS Urea nitrogen [Mass/Vol] 22.0 mg/dL Invalid Interpretation Code 8.0 - 22.0 mg/dL AH ADM SS Urea nitrogen/Creatinine [Mass ratio] 11.3 ratio Invalid Interpretation Code 10.0 - 22.0 ratio AH ADM SS WBC (Bld) [#/Vol] 11.1 103/mcL Invalid Interpretation Code 4.5 - 10.8 10^3/mcL AH Workflow SS LIPIDon 05-27-2023 Cholesterol [Mass/Vol] 163 mg/dL Normal 50-199 [facility] ([place]) Comment on above: Order Comment: add t o existing specimen Result Comment: Chol esterol Reference Interval: Less than 200 Desirable 200-239 Borderline high risk 240 and above High risk Performed By: #### L IPID #### [address] [address] Cholesterol in HDL [Mass/Vol] 31 mg/dL Low 40-59 [facility] ([place]) Comment on above: Order Comment: add t o existing specimen Performed By: #### L IPID #### [address] [address] Cholesterol in LDL [Mass/Vol] 100 mg/dL Normal 0-129 [facility] ([place]) Comment on above: Order Comment: add t o existing specimen Performed By: #### L IPID #### [address] [address] Triglyceride [Mass/Vol] 160 mg/dL High 3-149 [facility] ([place]) Comment on above: Order Comment: add t o existing specimen Performed By: #### L IPID #### [address] [address] MGon 05-27-2023 Magnesium [Mass/Vol] 2.1 mg/dL Normal 1.6-2.4 [facility] ([place]) Comment on above: Performed By: #### A DIFF, ANEU, GFR, BMP, CBC #### [address] [address] .Auto Diffon 05-26-2023 Basophil, Absolute 0.0 10 3/mcL Normal 0.0-0.3 [facility] ([place]) Comment on above: Performed By: #### A DIFF, ANEU, GFR, BMP, CBC #### [address] [address] Basophils/100 WBC (Bld) 0.3 % Normal 0.0-2.5 [facility] ([place]) Comment on above: Performed By: #### A DIFF, ANEU, GFR, BMP, CBC #### [address] [address] Eosinophil, Absolute 0.2 10 3/mcL Normal 0.0-0.7 [facility] ([place]) Comment on above: Performed By: #### A DIFF, ANEU, GFR, BMP, CBC #### [address] [address] Eosinophils/100 WBC (Bld) 2.0 % Normal 0.0-6.0 [facility] ([place]) Comment on above: Performed By: #### A DIFF, ANEU, GFR, BMP, CBC #### [address] [address] Lymphocyte, Absolute 1.7 10 3/mcL Normal 0.9-4.3 [facility] ([place]) Comment on above: Performed By: #### A DIFF, ANEU, GFR, BMP, CBC #### [address] [address] Lymphocytes/100 WBC (Bld) 18.5 % Low 20.0-40.0 [facility] ([place]) Comment on above: Performed By: #### A DIFF, ANEU, GFR, BMP, CBC #### [address] [address] Monocyte, Absolute 0.9 10 3/mcL Normal 0.1-1.4 [facility] ([place]) Comment on above: Performed By: #### A DIFF, ANEU, GFR, BMP, CBC #### [address] [address] Monocytes/100 WBC (Bld) 9.5 % Normal 2.0-13.0 [facility] ([place]) Comment on above: Performed By: #### A DIFF, ANEU, GFR, BMP, CBC #### [address] [address] Neutrophils/100 WBC (Bld) 69.7 % Normal 50.0-75.0 [facility] ([place]) Comment on above: Performed By: #### A DIFF, ANEU, GFR, BMP, CBC #### [address] [address] .GFRon 05-26-2023 GFR 38 ml/min/1.73sqm Normal [facility] ([place]) Comment on above: Result Comment: GFR Population mean for , Non- Americans Ages 20-29 = 116 mL/min/1.73 sq.m. Ages 30-39 = 107 mL/min/1.73 sq.m. Ages 40-49 = 99 mL/min/1.73 sq.m. Ages 50-59 = 93 mL/min/1.73 sq.m. Ages 60-69 = 85 mL/min/1.73 sq.m. Ages 70+ = 75 mL/min/1.73 sq.m. Chronic Kidney Disease: Less than 60 mL/min/1.73 square meters End Stage Renal Disease: Less than 15 mL/min/1.73 square meters Performed By: #### A DIFF, ANEU, GFR, BMP, CBC #### [address] [address] GFR Non- 32 ml/min/1.73sqm Normal [facility] ([place]) Comment on above: Result Comment: GFR Population mean for , Non- Americans Ages 20-29 = 116 mL/min/1.73 sq.m. Ages 30-39 = 107 mL/min/1.73 sq.m. Ages 40-49 = 99 mL/min/1.73 sq.m. Ages 50-59 = 93 mL/min/1.73 sq.m. Ages 60-69 = 85 mL/min/1.73 sq.m. Ages 70+ = 75 mL/min/1.73 sq.m. Chronic Kidney Disease: Less than 60 mL/min/1.73 square meters End Stage Renal Disease: Less than 15 mL/min/1.73 square meters Performed By: #### A DIFF, ANEU, GFR, BMP, CBC #### [address] [address] .NEUABSon 05-26-2023 Neutrophil, Absolute 6.3 10 3/mcL Normal 2.3-8.1 [facility] ([place] Comment on above: Performed By: #### A DIFF, ANEU, GFR, BMP, CBC #### [address] [address] BMPon 05-26-2023 BUN/Creatinine Ratio 12.3 ratio Normal 10.0-22.0 [facility] ([place]) Comment on above: Performed By: #### A DIFF, ANEU, GFR, BMP, CBC #### [address] [address] Calcium [Mass/Vol] 8.7 mg/dL Normal 8.7-10.4 [facility] ([place]) Comment on above: Performed By: #### A DIFF, ANEU, GFR, BMP, CBC #### [address] [address] Chloride [Moles/Vol] 109 mmol/L Normal 98-110 [facility] ([place]) Comment on above: Performed By: #### A DIFF, ANEU, GFR, BMP, CBC #### [address] [address] CO2 [Moles/Vol] 30 mmol/L Normal 22-32 [facility] ([place]) Comment on above: Performed By: #### A DIFF, ANEU, GFR, BMP, CBC #### [address] [address] Creatinine [Mass/Vol] 2.03 mg/dL High 0.60-1.40 [facility] ([place]) Comment on above: Performed By: #### A DIFF, ANEU, GFR, BMP, CBC #### [address] [address] Electrolyte Balance 2.0 mEq/L Low 4.0-15.0 [facility] ([place]) Comment on above: Performed By: #### A DIFF, ANEU, GFR, BMP, CBC #### [address] [address] Glucose [Mass/Vol] 105 mg/dL Normal 82-115 [facility] ([place]) Comment on above: Performed By: #### A DIFF, ANEU, GFR, BMP, CBC #### [place] [address] Potassium [Moles/Vol] 3.9 mmol/L Normal 3.5-5.0 [facility] ([place]) Comment on above: Result Comment: Spec imen slightly hemolyzed. Performed By: #### A DIFF, ANEU, GFR, BMP, CBC #### [place] [address] Sodium [Moles/Vol] 141 mmol/L Normal 136-145 [facility] ([place]) Comment on above: Performed By: #### A DIFF, ANEU, GFR, BMP, CBC #### [place] [address] Urea nitrogen [Mass/Vol] 25.0 mg/dL High 8.0-22.0 [facility] ([place]) Comment on above: Performed By: #### A DIFF, ANEU, GFR, BMP, CBC #### [place] [address] CBCon 05-26-2023 Erythrocyte distribution width (RBC) [Ratio] 15.1 % Normal 11.5-15.5 [facility] ([place] Comment on above: Performed By: #### A DIFF, ANEU, GFR, BMP, CBC #### [place] [address] Hematocrit (Bld) [Volume fraction] 33.6 % Low 40.0-52.0 [facility] ([place] Comment on above: Performed By: #### A DIFF, ANEU, GFR, BMP, CBC #### [place] [address] Hgb 11.1 G/dL Low 13.0-17.5 [facility] ([place] Comment on above: Performed By: #### A DIFF, ANEU, GFR, BMP, CBC #### [place] [address] MCH (RBC) [Entitic mass] 29.4 pg Normal 27.0-33.0 [facility] ([place] Comment on above: Performed By: #### A DIFF, ANEU, GFR, BMP, CBC #### [place] [id number] MCHC 33.1 G/dL Normal 32.0-36.0 [facility] ([place] Comment on above: Performed By: #### A DIFF, ANEU, GFR, BMP, CBC #### [place] [address] MCV (RBC) [Entitic vol] 88.8 fL Normal 81.0-100.0 [facility] ([place] Comment on above: Performed By: #### A DIFF, ANEU, GFR, BMP, CBC #### [place] [address] Platelet 238 10 3/mcL Normal 150-450 [facility] ([place] Comment on above: Performed By: #### A DIFF, ANEU, GFR, BMP, CBC #### [place] [address] Platelet mean volume (Bld) [Entitic vol] 8.0 fL Normal 6.4-10.5 [facility] ([place] Comment on above: Performed By: #### A DIFF, ANEU, GFR, BMP, CBC #### [place] [address] RBC 3.78 10 6/mcL Low 4.50-6.00 [facility] ([place] Comment on above: Performed By: #### A DIFF, ANEU, GFR, BMP, CBC #### [place] [address] WBC 9.0 10 3/mcL Normal 4.5-10.8 [facility] ([place] Comment on above: Performed By: #### A DIFF, ANEU, GFR, BMP, CBC #### [place] [address] LABORATORYOrdered By: Steffi Leon on 05-26-2023 Blood Glucose Testing Reason Routine (05/26/23 9:21 PM) [facility] Work Phone: Glucose [Mass/Vol] 132 mg/dL Invalid Interpretation Code 82 - 115 mg/dL [facility] Work Phone: LABORATORYOrdered By: Stacey Jiménez on 05-26-2023 Blood Glucose Testing Reason Routine (05/26/23 4:22 PM) [facility] Work Phone: Glucose [Mass/Vol] 124 mg/dL Invalid Interpretation Code 82 - 115 mg/dL [facility] Work Phone: LABORATORYOrdered By: Juana Claire on 05-26-2023 Glucose [Mass/Vol] 149 mg/dL Invalid Interpretation Code 82 - 115 mg/dL [facility] Work Phone: LABORATORYOrdered By: Sydnie Bundy on 05-26-2023 Blood Glucose Testing Reason Routine (05/26/23 7:07 AM) [facility] Work Phone: LABORATORYOrdered By: SYSTEM SYSTEM on 05-26-2023 Basophils (Bld) [#/Vol] 0.0 103/mcL Invalid Interpretation Code 0.0 - 0.3 10^3/mcL AH Workflow SS Basophils/100 WBC (Bld) 0.3 % Invalid Interpretation Code 0.0 - 2.5 % AH Workflow SS Calcium [Mass/Vol] 8.7 mg/dL Invalid Interpretation Code 8.7 - 10.4 mg/dL ADM SS Chloride [Moles/Vol] 109 mmol/L Invalid Interpretation Code 98 - 110 mEq/L ADM SS CO2 [Moles/Vol] 30 mmol/L Invalid Interpretation Code 22 - 32 mEq/L ADM SS Creatinine [Mass/Vol] 2.03 mg/dL Invalid Interpretation Code 0.60 - 1.40 mg/dL ADM SS Electrolyte Balance 2.0 mEq/L Invalid Interpretation Code 4.0 - 15.0 mEq/L ADM SS Eosinophils (Bld) [#/Vol] 0.2 103/mcL Invalid Interpretation Code 0.0 - 0.7 10^3/mcL AH Workflow SS Eosinophils/100 WBC (Bld) 2.0 % Invalid Interpretation Code 0.0 - 6.0 % AH Workflow SS Erythrocyte distribution width (RBC) [Ratio] 15.1 % Invalid Interpretation Code 11.5 - 15.5 % AH Workflow SS GFR/1.73 sq M.predicted among blacks MDRD (S/P/Bld) [Vol rate/Area] 38 ml/min/1.73sqm Invalid Interpretation Code AH ADM SS Comment on above: Interpretive Data: GFR Population mean for , Non- Americans Ages 20-29 = 116 mL/min/1.73 sq.m. Ages 30-39 = 107 mL/min/1.73 sq.m. Ages 40-49 = 99 mL/min/1.73 sq.m. Ages 50-59 = 93 mL/min/1.73 sq.m. Ages 60-69 = 85 mL/min/1.73 sq.m. Ages 70+ = 75 mL/min/1.73 sq.m. Chronic Kidney Disease: Less than 60 mL/min/1.73 square meters End Stage Renal Disease: Less than 15 mL/min/1.73 square meters GFR/1.73 sq M.predicted among non-blacks MDRD (S/P/Bld) [Vol rate/Area] 32 ml/min/1.73sqm Invalid Interpretation Code ADM SS Comment on above: Interpretive Data: GFR Population mean for , Non- Americans Ages 20-29 = 116 mL/min/1.73 sq.m. Ages 30-39 = 107 mL/min/1.73 sq.m. Ages 40-49 = 99 mL/min/1.73 sq.m. Ages 50-59 = 93 mL/min/1.73 sq.m. Ages 60-69 = 85 mL/min/1.73 sq.m. Ages 70+ = 75 mL/min/1.73 sq.m. Chronic Kidney Disease: Less than 60 mL/min/1.73 square meters End Stage Renal Disease: Less than 15 mL/min/1.73 square meters Glucose [Mass/Vol] 105 mg/dL Invalid Interpretation Code 82 - 115 mg/dL ADM SS Hematocrit (Bld) [Volume fraction] 33.6 % Invalid Interpretation Code 40.0 - 52.0 % Workflow SS Hemoglobin (Bld) [Mass/Vol] 11.1 G/dL Invalid Interpretation Code 13.0 - 17.5 G/dL AH Workflow SS Lymphocytes (Bld) [#/Vol] 1.7 103/mcL Invalid Interpretation Code 0.9 - 4.3 10^3/mcL Workflow SS Lymphocytes/100 WBC (Bld) 18.5 % Invalid Interpretation Code 20.0 - 40.0 % Workflow SS Magnesium [Mass/Vol] 1.8 mg/dL Invalid Interpretation Code 1.6 - 2.4 mg/dL AH ADM SS MCH (RBC) [Entitic mass] 29.4 pg Invalid Interpretation Code 27.0 - 33.0 pg AH Workflow SS MCHC 33.1 G/dL Invalid Interpretation Code 32.0 - 36.0 G/dL AH Workflow SS MCV (RBC) [Entitic vol] 88.8 fL Invalid Interpretation Code 81.0 - 100.0 fL AH Workflow SS Monocytes (Bld) [#/Vol] 0.9 103/mcL Invalid Interpretation Code 0.1 - 1.4 10^3/mcL AH Workflow SS Monocytes/100 WBC (Bld) 9.5 % Invalid Interpretation Code 2.0 - 13.0 % AH Workflow SS Neutrophils (Bld) [#/Vol] 6.3 103/mcL Invalid Interpretation Code 2.3 - 8.1 10^3/mcL AH Workflow SS Neutrophils/100 WBC (Bld) 69.7 % Invalid Interpretation Code 50.0 - 75.0 % AH Workflow SS Platelet mean volume (Bld) [Entitic vol] 8.0 fL Invalid Interpretation Code 6.4 - 10.5 fL AH Workflow SS Platelets (Bld) [#/Vol] 238 103/mcL Invalid Interpretation Code 150 - 450 10^3/mcL AH Workflow SS Potassium [Moles/Vol] 3.9 mmol/L Invalid Interpretation Code 3.5 - 5.0 mEq/L ADM SS Comment on above: Result Comment: Spec imen slightly hemolyzed. RBC (Bld) [#/Vol] 3.78 106/mcL Invalid Interpretation Code 4.50 - 6.00 10^6/mcL AH Workflow SS Sodium [Moles/Vol] 141 mmol/L Invalid Interpretation Code 136 - 145 mEq/L ADM SS Urea nitrogen [Mass/Vol] 25.0 mg/dL Invalid Interpretation Code 8.0 - 22.0 mg/dL ADM SS Urea nitrogen/Creatinine [Mass ratio] 12.3 ratio Invalid Interpretation Code 10.0 - 22.0 ratio AH ADM SS WBC (Bld) [#/Vol] 9.0 103/mcL Invalid Interpretation Code 4.5 - 10.8 10^3/mcL AH Workflow SS MGon 05-26-2023 Magnesium [Mass/Vol] 1.8 mg/dL Normal 1.6-2.4 [facility] ([place]) Comment on above: Performed By: #### M G #### [address] [address] .Auto Diffon 05-25-2023 Basophil, Absolute 0.0 10 3/mcL Normal 0.0-0.3 [facility] ([place]) Comment on above: Performed By: #### A DIFF, ANEU, GFR, BMP, CBC #### [address] [address] Basophils/100 WBC (Bld) 0.4 % Normal 0.0-2.5 [facility] ([place]) Comment on above: Performed By: #### A DIFF, ANEU, GFR, BMP, CBC #### [address] [address] Eosinophil, Absolute 0.3 10 3/mcL Normal 0.0-0.7 [facility] ([place]) Comment on above: Performed By: #### A DIFF, ANEU, GFR, BMP, CBC #### [address] [address] Eosinophils/100 WBC (Bld) 3.0 % Normal 0.0-6.0 [facility] ([place]) Comment on above: Performed By: #### A DIFF, ANEU, GFR, BMP, CBC #### [address] [address] Lymphocyte, Absolute 2.6 10 3/mcL Normal 0.9-4.3 [facility] ([place]) Comment on above: Performed By: #### A DIFF, ANEU, GFR, BMP, CBC #### [address] [address] Lymphocytes/100 WBC (Bld) 28.3 % Normal 20.0-40.0 [facility] ([place]) Comment on above: Performed By: #### A DIFF, ANEU, GFR, BMP, CBC #### [address] [address] Monocyte, Absolute 0.7 10 3/mcL Normal 0.1-1.4 [facility] ([place]) Comment on above: Performed By: #### A DIFF, ANEU, GFR, BMP, CBC #### [address] [address] Monocytes/100 WBC (Bld) 7.9 % Normal 2.0-13.0 [facility] ([place]) Comment on above: Performed By: #### A DIFF, ANEU, GFR, BMP, CBC #### [address] [address] Neutrophils/100 WBC (Bld) 60.4 % Normal 50.0-75.0 [facility] ([place]) Comment on above: Performed By: #### A DIFF, ANEU, GFR, BMP, CBC #### [address] [address] Basophil, Absolute 0.1 10 3/mcL Normal 0.0-0.3 [facility] ([place]) Comment on above: Performed By: #### A DIFF, ANEU, GFR, BMP, CBC #### [address] [address] Basophils/100 WBC (Bld) 0.7 % Normal 0.0-2.5 [facility] ([place]) Comment on above: Performed By: #### A DIFF, ANEU, GFR, BMP, CBC #### [address] [address] Eosinophil, Absolute 0.3 10 3/mcL Normal 0.0-0.7 [facility] ([place]) Comment on above: Performed By: #### A DIFF, ANEU, GFR, BMP, CBC #### [address] [address] Eosinophils/100 WBC (Bld) 2.8 % Normal 0.0-6.0 [facility] ([place]) Comment on above: Performed By: #### A DIFF, ANEU, GFR, BMP, CBC #### [address] [address] Lymphocyte, Absolute 2.1 10 3/mcL Normal 0.9-4.3 [facility] ([place]) Comment on above: Performed By: #### A DIFF, ANEU, GFR, BMP, CBC #### [address] [address] Lymphocytes/100 WBC (Bld) 21.3 % Normal 20.0-40.0 [facility] ([place]) Comment on above: Performed By: #### A DIFF, ANEU, GFR, BMP, CBC #### [address] [address] Monocyte, Absolute 0.7 10 3/mcL Normal 0.1-1.4 [facility] ([place] Comment on above: Performed By: #### A DIFF, ANEU, GFR, BMP, CBC #### [address] [address] Monocytes/100 WBC (Bld) 7.7 % Normal 2.0-13.0 [facility] ([place] Comment on above: Performed By: #### A DIFF, ANEU, GFR, BMP, CBC #### [address] [address] Neutrophils/100 WBC (Bld) 67.5 % Normal 50.0-75.0 [facility] ([place] Comment on above: Performed By: #### A DIFF, ANEU, GFR, BMP, CBC #### [address] [address] .GFRon 05-25-2023 GFR Non- 31 ml/min/1.73sqm Normal [facility] ([place]) Comment on above: Result Comment: GFR Population mean for , Non- Americans Ages 20-29 = 116 mL/min/1.73 sq.m. Ages 30-39 = 107 mL/min/1.73 sq.m. Ages 40-49 = 99 mL/min/1.73 sq.m. Ages 50-59 = 93 mL/min/1.73 sq.m. Ages 60-69 = 85 mL/min/1.73 sq.m. Ages 70+ = 75 mL/min/1.73 sq.m. Chronic Kidney Disease: Less than 60 mL/min/1.73 square meters End Stage Renal Disease: Less than 15 mL/min/1.73 square meters Performed By: #### A DIFF, ANEU, GFR, BMP, CBC #### [address] [address] GFR 38 ml/min/1.73sqm Normal [facility] ([place]) Comment on above: Result Comment: GFR Population mean for , Non- Americans Ages 20-29 = 116 mL/min/1.73 sq.m. Ages 30-39 = 107 mL/min/1.73 sq.m. Ages 40-49 = 99 mL/min/1.73 sq.m. Ages 50-59 = 93 mL/min/1.73 sq.m. Ages 60-69 = 85 mL/min/1.73 sq.m. Ages 70+ = 75 mL/min/1.73 sq.m. Chronic Kidney Disease: Less than 60 mL/min/1.73 square meters End Stage Renal Disease: Less than 15 mL/min/1.73 square meters Performed By: #### A DIFF, ANEU, GFR, BMP, CBC #### [address] [address] GFR 36 ml/min/1.73sqm Normal [facility] ([place]) Comment on above: Result Comment: GFR Population mean for , Non- Americans Ages 20-29 = 116 mL/min/1.73 sq.m. Ages 30-39 = 107 mL/min/1.73 sq.m. Ages 40-49 = 99 mL/min/1.73 sq.m. Ages 50-59 = 93 mL/min/1.73 sq.m. Ages 60-69 = 85 mL/min/1.73 sq.m. Ages 70+ = 75 mL/min/1.73 sq.m. Chronic Kidney Disease: Less than 60 mL/min/1.73 square meters End Stage Renal Disease: Less than 15 mL/min/1.73 square meters Performed By: #### A DIFF, ANEU, GFR, BMP, CBC #### [address] [address] GFR Non- 30 ml/min/1.73sqm Normal [facility] ([place]) Comment on above: Result Comment: GFR Population mean for , Non- Americans Ages 20-29 = 116 mL/min/1.73 sq.m. Ages 30-39 = 107 mL/min/1.73 sq.m. Ages 40-49 = 99 mL/min/1.73 sq.m. Ages 50-59 = 93 mL/min/1.73 sq.m. Ages 60-69 = 85 mL/min/1.73 sq.m. Ages 70+ = 75 mL/min/1.73 sq.m. Chronic Kidney Disease: Less than 60 mL/min/1.73 square meters End Stage Renal Disease: Less than 15 mL/min/1.73 square meters Performed By: #### A DIFF, ANEU, GFR, BMP, CBC #### [address] [address] .NEUABSon 05-25-2023 Neutrophil, Absolute 5.7 10 3/mcL Normal 2.3-8.1 [facility] ([place]) Comment on above: Performed By: #### A DIFF, ANEU, GFR, BMP, CBC #### [place] [address] Neutrophil, Absolute 6.5 10 3/mcL Normal 2.3-8.1 [facility] ([place]) Comment on above: Performed By: #### A DIFF, ANEU, GFR, BMP, CBC #### [place] [address] BMPon 05-25-2023 BUN/Creatinine Ratio 11.6 ratio Normal 10.0-22.0 [facility] ([place]) Comment on above: Performed By: #### A DIFF, ANEU, GFR, BMP, CBC #### [place] [address] Calcium [Mass/Vol] 9.6 mg/dL Normal 8.7-10.4 [facility] ([place]) Comment on above: Performed By: #### A DIFF, ANEU, GFR, BMP, CBC #### [place] [address] Chloride [Moles/Vol] 105 mmol/L Normal 98-110 [facility] ([place]) Comment on above: Performed By: #### A DIFF, ANEU, GFR, BMP, CBC #### [place] [address] CO2 [Moles/Vol] 31 mmol/L Normal 22-32 [facility] ([place]) Comment on above: Performed By: #### A DIFF, ANEU, GFR, BMP, CBC #### [place] [id number] Creatinine [Mass/Vol] 2.07 mg/dL High 0.60-1.40 [facility] ([place]) Comment on above: Performed By: #### A DIFF, ANEU, GFR, BMP, CBC #### [address] [address] Electrolyte Balance 6.0 mEq/L Normal 4.0-15.0 [facility] ([place]) Comment on above: Performed By: #### A DIFF, ANEU, GFR, BMP, CBC #### [place] [id number] Glucose [Mass/Vol] 100 mg/dL Normal 82-115 [facility] ([place]) Comment on above: Performed By: #### A DIFF, ANEU, GFR, BMP, CBC #### [place] [address] Potassium [Moles/Vol] 3.6 mmol/L Normal 3.5-5.0 [facility] ([place]) Comment on above: Performed By: #### A DIFF, ANEU, GFR, BMP, CBC #### [place] [id number] Sodium [Moles/Vol] 142 mmol/L Normal 136-145 [facility] ([place]) Comment on above: Performed By: #### A DIFF, ANEU, GFR, BMP, CBC #### [place] [id number] Urea nitrogen [Mass/Vol] 24.0 mg/dL High 8.0-22.0 [facility] ([place]) Comment on above: Performed By: #### A DIFF, ANEU, GFR, BMP, CBC #### [address] [address] CBCon 05-25-2023 Erythrocyte distribution width (RBC) [Ratio] 14.8 % Normal 11.5-15.5 [facility] ([place]) Comment on above: Performed By: #### A DIFF, ANEU, GFR, BMP, CBC #### [address] [address] Hematocrit (Bld) [Volume fraction] 33.2 % Low 40.0-52.0 [facility] ([place]) Comment on above: Performed By: #### A DIFF, ANEU, GFR, BMP, CBC #### [place] [address] Hgb 11.0 G/dL Low 13.0-17.5 [facility] ([place]) Comment on above: Performed By: #### A DIFF, ANEU, GFR, BMP, CBC #### [place] [address] MCH (RBC) [Entitic mass] 29.4 pg Normal 27.0-33.0 [facility] ([place]) Comment on above: Performed By: #### A DIFF, ANEU, GFR, BMP, CBC #### [place] [address] MCHC 33.2 G/dL Normal 32.0-36.0 [facility] ([place]) Comment on above: Performed By: #### A DIFF, ANEU, GFR, BMP, CBC #### [place] [address] MCV (RBC) [Entitic vol] 88.7 fL Normal 81.0-100.0 [facility] ([place] Comment on above: Performed By: #### A DIFF, ANEU, GFR, BMP, CBC #### [place] [address] Platelet 234 10 3/mcL Normal 150-450 [facility] ([place]) Comment on above: Performed By: #### A DIFF, ANEU, GFR, BMP, CBC #### [place] [address] Platelet mean volume (Bld) [Entitic vol] 7.9 fL Normal 6.4-10.5 [facility] ([place]) Comment on above: Performed By: #### A DIFF, ANEU, GFR, BMP, CBC #### [place] [address] RBC 3.74 10 6/mcL Low 4.50-6.00 [facility] ([place]) Comment on above: Performed By: #### A DIFF, ANEU, GFR, BMP, CBC #### [address] [address] WBC 9.4 10 3/mcL Normal 4.5-10.8 [facility] ([place]) Comment on above: Performed By: #### A DIFF, ANEU, GFR, BMP, CBC #### [place] [address] Erythrocyte distribution width (RBC) [Ratio] 15.0 % Normal 11.5-15.5 [facility] ([place] Comment on above: Performed By: #### A DIFF, ANEU, GFR, BMP, CBC #### [place] [id number] Hematocrit (Bld) [Volume fraction] 34.9 % Low 40.0-52.0 [facility] ([place] Comment on above: Performed By: #### A DIFF, ANEU, GFR, BMP, CBC #### [place] [id number] Hgb 11.4 G/dL Low 13.0-17.5 [facility] ([place]) Comment on above: Performed By: #### A DIFF, ANEU, GFR, BMP, CBC #### [address] [address] MCH (RBC) [Entitic mass] 29.3 pg Normal 27.0-33.0 [facility] ([place] Comment on above: Performed By: #### A DIFF, ANEU, GFR, BMP, CBC #### [place] [id number] MCHC 32.8 G/dL Normal 32.0-36.0 [facility] ([place] Comment on above: Performed By: #### A DIFF, ANEU, GFR, BMP, CBC #### [place] [id number] MCV (RBC) [Entitic vol] 89.3 fL Normal 81.0-100.0 [facility] ([place] Comment on above: Performed By: #### A DIFF, ANEU, GFR, BMP, CBC #### [place] [id number] Platelet 253 10 3/mcL Normal 150-450 [facility] ([place] Comment on above: Performed By: #### A DIFF, ANEU, GFR, BMP, CBC #### [place] [address] Platelet mean volume (Bld) [Entitic vol] 7.5 fL Normal 6.4-10.5 [facility] ([place] Comment on above: Performed By: #### A DIFF, ANEU, GFR, BMP, CBC #### [place] [address] RBC 3.90 10 6/mcL Low 4.50-6.00 [facility] ([place]) Comment on above: Performed By: #### A DIFF, ANEU, GFR, BMP, CBC #### [place] [address] WBC 9.7 10 3/mcL Normal 4.5-10.8 [facility] ([place] Comment on above: Performed By: #### A DIFF, ANEU, GFR, BMP, CBC #### [place] [address] CMPon 05-25-2023 Albumin Level 3.5 G/dL Normal 3.2-4.8 [facility] ([place] Comment on above: Performed By: #### A DIFF, ANEU, GFR, BMP, CBC #### [place] [address] Albumin/Globulin [Mass ratio] 1.1 {ratio} Normal 0.9-1.6 [facility] ([place] Comment on above: Performed By: #### A DIFF, ANEU, GFR, BMP, CBC #### [place] [address] ALP [Catalytic activity/Vol] 115 U/L Normal 38-126 [facility] ([place] Comment on above: Performed By: #### A DIFF, ANEU, GFR, BMP, CBC #### [place] [address] ALT [Catalytic activity/Vol] 8 U/L Low 12-55 [facility] ([place] Comment on above: Performed By: #### A DIFF, ANEU, GFR, BMP, CBC #### [facility] [address] [place], [place] [address] AST [Catalytic activity/Vol] 17 U/L Normal 8-34 [facility] ([place]) Comment on above: Performed By: #### A DIFF, ANEU, GFR, BMP, CBC #### [place] [address] Bili Total 0.30 mg/dL Normal 0.20-1.20 [facility] ([place]) Comment on above: Result Comment: Use of this assay is not recommended for patients undergoing treatment with eltrombopag due to the potential for falsely elevated results. Performed By: #### A DIFF, ANEU, GFR, BMP, CBC #### [place] [address] BUN/Creatinine Ratio 11.7 ratio Normal 10.0-22.0 [facility] ([place]) Comment on above: Performed By: #### A DIFF, ANEU, GFR, BMP, CBC #### [place] [address] Calcium [Mass/Vol] 9.4 mg/dL Normal 8.7-10.4 [facility] ([place]) Comment on above: Performed By: #### A DIFF, ANEU, GFR, BMP, CBC #### [place] [address] Chloride [Moles/Vol] 105 mmol/L Normal 98-110 [facility] ([place]) Comment on above: Performed By: #### A DIFF, ANEU, GFR, BMP, CBC #### [place] [address] CO2 [Moles/Vol] 29 mmol/L Normal 22-32 [facility] ([place] Comment on above: Performed By: #### A DIFF, ANEU, GFR, BMP, CBC #### [place] [address] Creatinine [Mass/Vol] 2.13 mg/dL High 0.60-1.40 [facility] ([place]) Comment on above: Performed By: #### A DIFF, ANEU, GFR, BMP, CBC #### [place] [address] Electrolyte Balance 5.0 mEq/L Normal 4.0-15.0 [facility] ([place]) Comment on above: Performed By: #### A DIFF, ANEU, GFR, BMP, CBC #### [address] [address] Globulin 3.1 G/dL Normal 1.5-3.8 [facility] ([place]) Comment on above: Performed By: #### A DIFF, ANEU, GFR, BMP, CBC #### [address] [address] Glucose [Mass/Vol] 107 mg/dL Normal 82-115 [facility] ([place]) Comment on above: Performed By: #### A DIFF, ANEU, GFR, BMP, CBC #### [address] [address] Potassium [Moles/Vol] 4.1 mmol/L Normal 3.5-5.0 [facility] ([place]) Comment on above: Result Comment: Spec imen slightly hemolyzed. Performed By: #### A DIFF, ANEU, GFR, BMP, CBC #### [address] [address] Sodium [Moles/Vol] 139 mmol/L Normal 136-145 [facility] ([place]) Comment on above: Performed By: #### A DIFF, ANEU, GFR, BMP, CBC #### [address] [address] Total Protein 6.6 G/dL Normal 5.7-8.2 [facility] ([place]) Comment on above: Result Comment: No te - New Reference Range in effect 20 Performed By: #### A DIFF, ANEU, GFR, BMP, CBC #### [address] [address] Urea nitrogen [Mass/Vol] 25.0 mg/dL High 8.0-22.0 [facility] ([place] Comment on above: Performed By: #### A DIFF, ANEU, GFR, BMP, CBC #### [address] [address] MGon 05-25-2023 Magnesium [Mass/Vol] 1.9 mg/dL Normal 1.6-2.4 [facility] ([place]) Comment on above: Performed By: #### A DIFF, ANEU, GFR, BMP, CBC #### [place] [address] Magnesium [Mass/Vol] 2.0 mg/dL Normal 1.6-2.4 [facility] ([place] Comment on above: Performed By: #### A DIFF, ANEU, GFR, BMP, CBC #### [place] [address] PBNPon 05-25-2023 Natriuretic peptide B (Bld) [Mass/Vol] 160 pg/mL Normal 0-1800 [facility] ([place]) Comment on above: Result Comment: NT-p roBNP results of less than 300 pg/mL effectively rules out acute congestive heart failure with 99% negative predictive value. Performed By: #### A DIFF, ANEU, GFR, BMP, CBC #### [place] [address] TROPHSon 05-25-2023 Troponin I High Sensitivity 6.29 ng/L Normal 0.00-54.00 [facility] ([place] Comment on above: Performed By: #### A DIFF, ANEU, GFR, BMP, CBC #### [place] [address] LABORATORYOrdered By: SYSTEM SYSTEM on 05-24-2023 Albumin BCP dye [Mass/Vol] 3.5 G/dL Invalid Interpretation Code 3.2 - 4.8 G/dL ADM SS Albumin/Globulin [Mass ratio] 1.1 {ratio} Invalid Interpretation Code 0.9 - 1.6 ratio AH ADM SS ALP [Catalytic activity/Vol] 115 U/L Invalid Interpretation Code 38 - 126 U/L ADM SS ALT No additional P-5'-P [Catalytic activity/Vol] 8 U/L Invalid Interpretation Code 12 - 55 U/L AH ADM SS AST [Catalytic activity/Vol] 17 U/L Invalid Interpretation Code 8 - 34 U/L AH ADM SS Bilirubin [Mass/Vol] 0.30 mg/dL Invalid Interpretation Code 0.20 - 1.20 mg/dL AH ADM SS Comment on above: Interpretive Data: U se of this assay is not recommended for patients undergoing treatment with eltrombopag due to the potential for falsely elevated results. Globulin 3.1 G/dL Invalid Interpretation Code 1.5 - 3.8 G/dL ADM SS Protein [Mass/Vol] 6.6 G/dL Invalid Interpretation Code 5.7 - 8.2 G/dL ADM SS Comment on above: Interpretive Data: * *Note - New Reference Range in effect 20 Troponin I.cardiac DL <= 0.01 ng/mL [Mass/Vol] 6.29 ng/L Invalid Interpretation Code 0.00 - 54.00 ng/L ADM SS LABORATORYOrdered By: Juana Elliott on 05-24-2023 Natriuretic peptide.B prohormone N-Terminal [Mass/Vol] 160 pg/mL Invalid Interpretation Code 0 - 1800 pg/mL Auto Chem SS Comment on above: Interpretive Data: N T-proBNP results of less than 300 pg/mL effectively rules out acute congestive heart failure with 99% negative predictive value. No Panel Informationon 05-09 [facility] XR Knee - bilateral 4 Viewso n 03-28-2023 IMPRESSION: No acute bony finding. Knee joints are unremarkable. Director Safety Council[facility] Transcribe Date/Time: Mar 28 2023 8:16A Dictated by : COMFORT GLOVER MD This examination was interpreted and the report reviewed and electronically signed by: COMFORT GLOVER MD on Mar 28 2023 8:18AM [facility] DIVISION OF RADIOLOGY * * *Final Report* * * DATE OF EXAM: Mar 23 2023 4:41PM WOX 5618 - XR KNEE 4V AP/PA/LAT/MERCH MELISSA / PROCEDURE REASON: multiple diagnoses * * * * Physician Interpretation * * * * Bilateral knees HISTORY: 82 years old Clinical information: Bilateral chronic knee pain Bilateral chronic knee pain Bilateral chronic knee pain Chronic bilateral knee pain TECHNIQUE: Images: XR KNEE 4V AP/PA/LAT/MERCH MELISSA Comparison: 01/07/2020. RESULT: Findings: The joint spaces appear maintained. No effusion or fracture. Vascular calcifications. DIVISION OF RADIOLOGY Provider, [facility] Elham Garza - 03/28/2023 * * *Final Report* * * DATE OF EXAM: Mar 23 2023 4:41PM WOX 5618 - XR KNEE 4V AP/PA/LAT/MERCH MELISSA / PROCEDURE REASON: multiple diagnoses * * * * Physician Interpretation * * * * Bilateral knees HISTORY: 82 years old Clinical information: Bilateral chronic knee pain Bilateral chronic knee pain Bilateral chronic knee pain Chronic bilateral knee pain TECHNIQUE: Images: XR KNEE 4V AP/PA/LAT/MERCH MELISSA Comparison: 01/07/2020. RESULT: Findings: The joint spaces appear maintained. No effusion or fracture. Vascular calcifications. IMPRESSION IMPRESSION: No acute bony finding. Knee joints are unremarkable. Director Safety Council: [facility] Transcribe Date/Time: Mar 28 2023 8:16A Dictated by : COMFORT LGOVER MD This examination was interpreted and the report reviewed and electronically signed by: COMFORT GLOVER MD on Mar 28 2023 8:18AM EST [facility] XR Lumbar spine 3 Viewson Interpretation and review of laboratory results Abnormal [facility] Radiology Result ACTIONABLE Abnormal [facility] Comment on above: This report contains an incidental or actionable finding. This finding may be a new finding separate from the reason your provider ordered the imaging test or it may be an already known finding that needs additional or continued follow-up. Because of this incidental or actionable finding, you may need another test (imaging or a different type of test). Please contact your provider for the next steps. IMPRESSION: Infrarenal abdominal aortic aneurysm with apparent AP diameter (uncorrected) patient 4.9 cm. Further imaging characterization is recommended. Lumbar degenerative disc disease and facet joint disease. ACTIONABLE RESULT: FOLLOW-UP Acuity: Actionable Findings: Heart and Vascular system Routing Code: CV_1 Recommendation: Unlisted Recommendation (see report) Time Frame: At the discretion of the clinical team. COMMUNICATION: Results will be communicated with the ordering provider via CrossCurrent staff message or phone message by Imaging Support Services within 2 business days of report finalization. Algorithms for management of incidental imaging findings can be found on the [facility] Intranet Sharepoint site at: [email or web address] ng%20Incidental%20Findi ngs%20at%20Imaging/Forms/A llItems.[email or web address] Director Safety Council: JASON Transcribe Date/Time: Mar 28 2023 8:11A Dictated by : COMFORT GLOVER MD This examination was interpreted and the report reviewed and electronically signed by: COMFORT GLOVER MD on Mar 28 2023 8:16AM [facility] DIVISION OF RADIOLOGY * * *Final Report* * * DATE OF EXAM: Mar 23 2023 4:41PM WOX 5228 - XR LUMBAR 3V AP/LAT/L5-S1 / PROCEDURE REASON: multiple diagnoses * * * * Physician Interpretation * * * * Lumbar spine History: 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 Prior study: 11/25/2019 Findings: AP and lateral views were performed. There is mild levoscoliosis. Vertebral bodies and pedicles are intact. Multilevel lumbar disc space narrowing with sparing of L5-S1 disc space. Grade 1 L5-S1 spondylolisthesis. Prominent hypertrophic degenerative changes to the mid and lower lumbar facet joints. Atherosclerotic aortic calcification with inferior abdominal aortic aneurysm AP diameter (not corrected for magnification) a 4.9 cm. Counting reference: Lumbosacral junction. For the purposes of this report, L4-5 is considered the level of the iliac crest and there are 5 lumbar-type vertebrae. Anatomic Variants: None. DIVISION OF RADIOLOGY [facility] * * *Final Report* * * DATE OF EXAM: Mar 23 2023 4:41PM WOX 5228 - XR LUMBAR 3V AP/LAT/L5-S1 / PROCEDURE REASON: multiple diagnoses * * * * Physician Interpretation * * * * Lumbar spine History: 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 Prior study: 11/25/2019 Findings: AP and lateral views were performed. There is mild levoscoliosis. Vertebral bodies and pedicles are intact. Multilevel lumbar disc space narrowing with sparing of L5-S1 disc space. Grade 1 L5-S1 spondylolisthesis. Prominent hypertrophic degenerative changes to the mid and lower lumbar facet joints. Atherosclerotic aortic calcification with inferior abdominal aortic aneurysm AP diameter (not corrected for magnification) a 4.9 cm. Counting reference: Lumbosacral junction. For the purposes of this report, L4-5 is considered the level of the iliac crest and there are 5 lumbar-type vertebrae. Anatomic Variants: None. IMPRESSION IMPRESSION: Infrarenal abdominal aortic aneurysm with apparent AP diameter (uncorrected) patient 4.9 cm. Further imaging characterization is recommended. Lumbar degenerative disc disease and facet joint disease. ACTIONABLE RESULT: FOLLOW-UP Acuity: Actionable Findings: Heart and Vascular system Routing Code: CV_1 Recommendation: Unlisted Recommendation (see report) Time Frame: At the discretion of the clinical team. COMMUNICATION: Results will be communicated with the ordering provider via CrossCurrent staff message or phone message by Imaging Support Services within 2 business days of report finalization. Algorithms for management of incidental imaging findings can be found on the [facility] Intranet Sharepoint site at: [email or web address]://[email or web address]/documen [email or web address] ng%20Incidental%20Findi ngs%20at%20Imaging/Forms/A llItems.aspx Director Safety Council: [facility] Transcribe Date/Time: Mar 28 2023 8:11A Dictated by : COMFORT GLOVER MD This examination was interpreted and the report reviewed and electronically signed by: COMFORT GLOVER MD on Mar 28 2023 8:16AM EST [facility] XR Chest PA and Lateralon IMPRESSION: Stable exam. No acute radiographic abnormality. Director Safety Council: JASON Transcribe Date/Time: Mar 24 2023 9:33A Dictated by : CARLA BROWN DO This examination was interpreted and the report reviewed and electronically signed by: CARLA BROWN DO on Mar 24 2023 9:33AM [facility] DIVISION OF RADIOLOGY * * *Final Report* * * DATE OF EXAM: Mar 23 2023 4:41PM WOX 5291 - XR CHEST 2V FRONTAL/LAT / PROCEDURE REASON: multiple diagnoses * * * * Physician Interpretation * * * * EXAMINATION: CHEST RADIOGRAPH (2 VIEW FRONTAL & LATERAL) CLINICAL HISTORY: SOB (shortness of breath) Coronary artery 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 rich plaque MQ: XC2_6 EXAM DATE/TIME: 03/23/2023 4:41 PM COMPARISON: 11/25/2021 RESULT: Lines, tubes, and devices: None. Lungs and pleura: No consolidation. No lung mass. No pleural effusion. No pneumothorax. Cardiomediastinal silhouette: Median sternotomy. Normal cardiomediastinal silhouette. Bones and soft tissues: Degenerative changes in the thoracic spine. DIVISION OF RADIOLOGY Provider, Tatiana Lizarraga [facility] - 03/24/2023 * * *Final Report* * * DATE OF EXAM: Mar 23 2023 4:41PM WOX 5291 - XR CHEST 2V FRONTAL/LAT / PROCEDURE REASON: multiple diagnoses * * * * Physician Interpretation * * * * EXAMINATION: CHEST RADIOGRAPH (2 VIEW FRONTAL & LATERAL) CLINICAL HISTORY: SOB (shortness of breath) Coronary artery 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 rich plaque MQ: XC2_6 EXAM DATE/TIME: 03/23/2023 4:41 PM COMPARISON: 11/25/2021 RESULT: Lines, tubes, and devices: None. Lungs and pleura: No consolidation. No lung mass. No pleural effusion. No pneumothorax. Cardiomediastinal silhouette: Median sternotomy. Normal cardiomediastinal silhouette. Bones and soft tissues: Degenerative changes in the thoracic spine. IMPRESSION IMPRESSION: Stable exam. No acute radiographic abnormality. Director Safety Council: JASON Transcribe Date/Time: Mar 24 2023 9:33A Dictated by : CARLA BROWN DO This examination was interpreted and the report reviewed and electronically signed by: CARLA BROWN DO on Mar 24 2023 9:33AM EST [facility] XR Chest PA and LateralOrder ed By: Ccf Provider on 03-24-2023 [facility] No Panel Informationon 03-23 Radiology Study observation (narrative) [facility] XR Chest PA and Lateralon IMPRESSION: No acute radiographic abnormality. Director Safety Council: JASON Transcribe Date/Time: Nov 25 2021 12:25P Dictated by : COMFORT GLOVER MD This examination was interpreted and the report reviewed and electronically signed by: COMFORT GLOVER MD on Nov 25 2021 12:26PM EST [id number] SE_DIVISION OF RADIOLOGY * * *Final Report* * * DATE OF EXAM: Nov 25 2021 12:20PM WOX 5291 - XR CHEST 2V FRONTAL/LAT / PROCEDURE REASON: Cough * * * * Physician Interpretation * * * * EXAMINATION: CHEST RADIOGRAPH (2 VIEW FRONTAL & LATERAL) CLINICAL HISTORY: Cough MQ: XC2_6 EXAM DATE/TIME: 11/25/2021 12:20 PM COMPARISON: No relevant prior studies available. RESULT: Lines, tubes, and devices: None. Lungs and pleura: No consolidation. No lung mass. No pleural effusion. No pneumothorax. Cardiomediastinal silhouette: Normal cardiomediastinal silhouette. Bones and soft tissues: Unremarkable. [id number] _DIVISION OF RADIOLOGY Provider, [facility] - 11/25/2021 * * *Final Report* * * DATE OF EXAM: Nov 25 2021 12:20PM WOX 5291 - XR CHEST 2V FRONTAL/LAT / PROCEDURE REASON: Cough * * * * Physician Interpretation * * * * EXAMINATION: CHEST RADIOGRAPH (2 VIEW FRONTAL & LATERAL) CLINICAL HISTORY: Cough MQ: XC2_6 EXAM DATE/TIME: 11/25/2021 12:20 PM COMPARISON: No relevant prior studies available. RESULT: Lines, tubes, and devices: None. Lungs and pleura: No consolidation. No lung mass. No pleural effusion. No pneumothorax. Cardiomediastinal silhouette: Normal cardiomediastinal silhouette. Bones and soft tissues: Unremarkable. IMPRESSION IMPRESSION: No acute radiographic abnormality. Director Safety Council: JASON Transcribe Date/Time: Nov 25 2021 12:25P Dictated by : COMFORT GLOVER MD This examination was interpreted and the report reviewed and electronically signed by: COMFORT GLOVER MD on Nov 25 2021 12:26PM EST [facility] Radiology Study observation (narrative) [facility] XR Chest PA and LateralOrder ed By: Cc Provider on 11-25-2021 [facility] XR Chest PA and Lateralon IMPRESSION: No acute radiographic abnormality. Director Safety Council: [facility] Transcribe Date/Time: Sep 18 2020 3:15P Dictated by : ZOE AKBAR MD This examination was interpreted and the report reviewed and electronically signed by: ZOE AKBAR MD on Sep 18 2020 3:16PM [facility] DIVISION OF RADIOLOGY * * *Final Report* * * DATE OF EXAM: Sep 18 2020 3:12PM WOX 5291 - XR CHEST 2V FRONTAL/LAT / PROCEDURE REASON: Cough * * * * Physician Interpretation * * * * EXAMINATION: CHEST RADIOGRAPH (2 VIEW FRONTAL & LATERAL) CLINICAL HISTORY: Cough MQ: XC2_6 EXAM DATE/TIME: 09/18/2020 3:12 PM COMPARISON: Chest x-ray on 07/07/2018. RESULT: Lines, tubes, and devices: None. Lungs and pleura: No consolidation. No lung mass. No pleural effusion. No pneumothorax. Cardiomediastinal silhouette: Stable cardiomediastinal silhouette. A few coronary stents visualized. Bones and soft tissues: Status post median sternotomy. The spine shows degenerative changes. DIVISION [facility]OLOGY [facility] * * *Final Report* * * DATE OF EXAM: Sep 18 2020 3:12PM WOX 5291 - XR CHEST 2V FRONTAL/LAT / PROCEDURE REASON: Cough * * * * Physician Interpretation * * * * EXAMINATION: CHEST RADIOGRAPH (2 VIEW FRONTAL & LATERAL) CLINICAL HISTORY: Cough MQ: XC2_6 EXAM DATE/TIME: 09/18/2020 3:12 PM COMPARISON: Chest x-ray on 07/07/2018. RESULT: Lines, tubes, and devices: None. Lungs and pleura: No consolidation. No lung mass. No pleural effusion. No pneumothorax. Cardiomediastinal silhouette: Stable cardiomediastinal silhouette. A few coronary stents visualized. Bones and soft tissues: Status post median sternotomy. The spine shows degenerative changes. IMPRESSION IMPRESSION: No acute radiographic abnormality. Director Safety Council: JASON Transcribe Date/Time: Sep 18 2020 3:15P Dictated by : ZOE AKBAR MD This examination was interpreted and the report reviewed and electronically signed by: ZOE AKBAR MD on Sep 18 2020 3:16PM EST [facility] Radiology Study observation (narrative) [facility] XR Chest PA and LateralOrder ed By: Ccf Provider on 09-18-2020 [facility] No Panel Informationon 06-09 IMPRESSION: Degenerative changes as discussed Director Safety Council: [facility] Transcribe Date/Time: Jun 09 2020 4:42P Dictated by : LISA CARREON DO This examination was interpreted and the report reviewed and electronically signed by: LISA CARREON DO on Jun 09 2020 4:44PM [facility] DIVISION OF RADIOLOGY Radiology Study observation (narrative) [facility] No Panel InformationOrdered By: Ccf Provider on 06-09-2020 [facility] XR Cervical spine AP and Lat eral and obliqueon 06-09-2020 * * *Final Report* * * DATE OF EXAM: Jun 09 2020 3:33PM WOX 5311 - XR CERVICAL 4V AP/LAT/OBL / PROCEDURE REASON: multiple diagnoses * * * * Physician Interpretation * * * * Cervical spine/LEFT shoulder: HISTORY: Indication: Pain of left scapula Neck pain of over 3 months duration TECHNIQUE: Views obtained: XR SHLDR >/=3V AP/MACY AP/OTHR LT, XR CERVICAL 4V AP/LAT/OBL Comparison: None. RESULT: Findings: Cervical spine: Disk spaces: Severe disc space narrowing C2-3 C3-4 C4-5 C5-6 and C6-7. Moderate foraminal narrowing at multiple levels due to bony spurring. Spine alignment: The vertebra are in good alignment. No fractures or dislocations are seen. LEFT shoulder: Severe narrowing of the AC joint. Mild narrowing of the glenohumeral joint. DIVISION OF RADIOLOGY [facility]/09/2020 * * *Final Report* * * DATE OF EXAM: Jun 09 2020 3:33PM WOX 5311 - XR CERVICAL 4V AP/LAT/OBL / PROCEDURE REASON: multiple diagnoses * * * * Physician Interpretation * * * * Cervical spine/LEFT shoulder: HISTORY: Indication: Pain of left scapula Neck pain of over 3 months duration TECHNIQUE: Views obtained: XR SHLDR >/=3V AP/MACY AP/OTHR LT, XR CERVICAL 4V AP/LAT/OBL Comparison: None. RESULT: Findings: Cervical spine: Disk spaces: Severe disc space narrowing C2-3 C3-4 C4-5 C5-6 and C6-7. Moderate foraminal narrowing at multiple levels due to bony spurring. Spine alignment: The vertebra are in good alignment. No fractures or dislocations are seen. LEFT shoulder: Severe narrowing of the AC joint. Mild narrowing of the glenohumeral joint. IMPRESSION IMPRESSION: Degenerative changes as discussed Director Safety Council: JASON Transcribe Date/Time: Jun 09 2020 4:42P Dictated by : LISA CARREON DO This examination was interpreted and the report reviewed and electronically signed by: LISA CARREON DO on Jun 09 2020 4:44PM EST [facility] XR Shoulder - left 3 Viewson 06-09-2020 * * *Final Report* * * DATE OF EXAM: Jun 09 2020 3:33PM WOX 5252 - XR SHLDR >/=3V AP/MACY AP/OTHR LT / PROCEDURE REASON: multiple diagnoses * * * * Physician Interpretation * * * * Cervical spine/LEFT shoulder: HISTORY: Indication: Pain of left scapula Neck pain of over 3 months duration TECHNIQUE: Views obtained: XR SHLDR >/=3V AP/MACY AP/OTHR LT, XR CERVICAL 4V AP/LAT/OBL Comparison: None. RESULT: Findings: Cervical spine: Disk spaces: Severe disc space narrowing C2-3 C3-4 C4-5 C5-6 and C6-7. Moderate foraminal narrowing at multiple levels due to bony spurring. Spine alignment: The vertebra are in good alignment. No fractures or dislocations are seen. LEFT shoulder: Severe narrowing of the AC joint. Mild narrowing of the glenohumeral joint. DIVISION OF RADIOLOGY Provider, [facility] - 06/09/2020 * * *Final Report* * * DATE OF EXAM: Jun 09 2020 3:33PM WOX 5252 - XR SHLDR >/=3V AP/MACY AP/OTHR LT / PROCEDURE REASON: multiple diagnoses * * * * Physician Interpretation * * * * Cervical spine/LEFT shoulder: HISTORY: Indication: Pain of left scapula Neck pain of over 3 months duration TECHNIQUE: Views obtained: XR SHLDR >/=3V AP/MACY AP/OTHR LT, XR CERVICAL 4V AP/LAT/OBL Comparison: None. RESULT: Findings: Cervical spine: Disk spaces: Severe disc space narrowing C2-3 C3-4 C4-5 C5-6 and C6-7. Moderate foraminal narrowing at multiple levels due to bony spurring. Spine alignment: The vertebra are in good alignment. No fractures or dislocations are seen. LEFT shoulder: Severe narrowing of the AC joint. Mild narrowing of the glenohumeral joint. IMPRESSION IMPRESSION: Degenerative changes as discussed Director Safety Council: JASON Transcribe Date/Time: Jun 09 2020 4:42P Dictated by : LISA CARREON DO This examination was interpreted and the report reviewed and electronically signed by: LISA CARREON DO on Jun 09 2020 4:44PM [facility] Lab Report: Basic Metabolic Profile (BMP)on 06-27-2017 Anion gap 11 mmol/L Invalid Interpretation Code 5-15 [facility] Work Phone: [phone] BUN/Creatinine Ratio 20.3 RATIO High 10-[address] [facility] Work Phone: [phone] Calcium 9.5 mg/dL Invalid Interpretation Code 8.5-10.1 [facility] Work Phone: [phone] Chloride 92 mmol/L Low 98-107 [facility] Work Phone: [phone] CO2 29.0 mmol/L Invalid Interpretation Code 21.0-32.0 [facility] Work Phone: [phone] Creatinine 2.51 mg/dL High 0.70-1.30 [facility] Work Phone: [phone] eGFR (non-black) 32 mL/min/{1.73_m2} Low >60 [facility] Work Phone: [phone] eGFR (non-black) 27 mL/min/{1.73_m2} Low >60 [facility] Work Phone: [phone] Glucose mass conc 506 mg/dL Critically high 70-110 [facility] Work Phone: [phone] Potassium molar conc 3.9 mmol/L Invalid Interpretation Code 3.5-5.1 [facility] Work Phone: [phone] Sodium 132 mmol/L Low 136-145 [facility] Work Phone: [phone] Urea nitrogen 51 mg/dL High 7-18 [facility] Work Phone: [phone] Lab Report: CBC W/Diff, Auto matedon 06-27-2017 Absolute Neut 7.1 X10 3/UL Invalid Interpretation Code 2.0-7.7 [facility] Work Phone: [phone] Basophils/100 WBC Auto (Bld) 0.3 % Invalid Interpretation Code 0-1 [facility] Work Phone: [phone] Eosinophils/100 leukocytes 2.0 % Invalid Interpretation Code 0-5 [facility] Work Phone: [phone] Erythrocyte distribution width Auto Ratio (RBC) 16.6 % High 11.6-14.6 [facility] Work Phone: [phone] Erythrocytes (RBC) 4.42 10*6/uL Low 4.6-6.[address] [facility] Work Phone: [phone] Hematocrit (HCT) 36.9 % Low 40-54 [facility] Work Phone: [phone] Hemoglobin mass conc (Bld) 11.8 g/dL Low 13.0-16.5 [facility] Work Phone: [phone] Immature granulocytes/100 WBC (Bld) 0.200 % Invalid Interpretation Code 0.0-0.9 [facility] Work Phone: [phone] Lymphocytes 2.63 X10 3/UL Invalid Interpretation Code 0.83-4.51 [facility] Work Phone: [phone] Lymphocytes/100 leukocytes 24.1 % Invalid Interpretation Code 19-41 [facility] Work Phone: [phone] MCH 26.7 pg Low 27.0-32.0 [facility] Work Phone: [phone] MCHC mass conc (RBC) 32.0 G/GL Invalid Interpretation Code 32-36 [facility] Work Phone: [phone] MCV 83.5 fL Invalid Interpretation Code 80-94 [facility] Work Phone: [phone] Monocytes/100 leukocytes 8.2 % Invalid Interpretation Code 0-10 [facility] Work Phone: [phone] Neutrophils/100 WBC Auto (Bld) 65.2 % Invalid Interpretation Code 47-70 [facility] Work Phone: [phone] Platelets 434 10*3/mm3 Invalid Interpretation Code 150-450 [facility] Work Phone: PMV by Esteban-Jacinto 10.4 fL Invalid Interpretation Code 6.2-12.0 [facility] Work Phone: [phone] RDW SD 49.6 fL High 35.1-43.9 [facility] Work Phone: [phone] WBC (Leukocytes) 10.9 10*3/uL Invalid Interpretation Code 4.4-11.0 [facility] Work Phone: [phone] Lab Report: Hemoglobin A1con 06-27-2017 Hemoglobin A1c/Hemoglobin.total mass fraction (Bld) 12.1 % High 4.2-6.3 [facility] Work Phone: [phone] Lab Report: Lipid Profileon 06-27-2017 Cholesterol 247 mg/dL High 200 [facility] Work Phone: [phone] HDL Cholesterol 50 mg/dL Invalid Interpretation Code [facility] Work Phone: [phone] LDL Cholesterol 145 mg/dL High 0-130 [facility] Work Phone: [phone] Triglyceride 262 mg/dL High [facility] Work Phone: [phone] very low density lipoproteins 52 mg/dL High 5-40 [facility] Work Phone: [phone] Lab Report: Liver Profileon 06-27-2017 Alanine aminotransferase (ALT) 16 U/L Invalid Interpretation Code 12-78 [facility] Work Phone: [phone] Albumin 3.5 g/dL Invalid Interpretation Code 3.4-5.0 [facility] Work Phone: [phone] Alkaline phosphatase (ALP) 141 U/L High 45-117 [facility] Work Phone: [phone] Aspartate aminotransferase (AST) 11 U/L Low 15-37 [facility] Work Phone: [phone] Bilirubin (direct) 0.09 mg/dL Invalid Interpretation Code 0.00-0.30 [facility] Work Phone: [phone] Bilirubin (total) 0.50 mg/dL Invalid Interpretation Code 0.20-1.00 [facility] Work Phone: [phone] Globulin 4.3 g/dL High 2.2-4.2 [facility] Work Phone: [phone] Protein 7.8 g/dL Invalid Interpretation Code 6.4-8.2 [email or web address] Phone: [phone] Office Visiton 06-27-2017 Documentation of current medications (procedure) Done Invalid Interpretation Code [email or web address] Phone: [phone] Fall risk assessment No Invalid Interpretation Code [email or web address] Phone: [phone]) Clinical Lists Update: 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 06-20-2017 Left ventricular Ejection fraction 45-50 Invalid Interpretation Code [email or web address] Phone: [phone] Office Visiton 04-21-2017 Documentation of current medications (procedure) Done Invalid Interpretation Code [email or web address] Phone: [phone] Fall risk assessment No Invalid Interpretation Code [email or web address] Phone: [phone]) Office Visit: anemiaon 04-20 Dietary management education, guidance, and counseling (procedure) yes Invalid Interpretation Code [email or web address] Phone: [phone] Tobacco smoking status NHIS Never Invalid Interpretation Code [facility] Work Phone: [phone] Tobacco use CPHS Former smoker Invalid Interpretation Code [email or web address] Phone: [phone] Lab Report: Basic Metabolic Profile (BMP)on 03-31-2017 Anion gap 11 mmol/L Invalid Interpretation Code 5-15 [email or web address] Phone: [phone] BUN/Creatinine Ratio 18.1 RATIO Invalid Interpretation Code 10-20 [email or web address] Phone: [phone] Calcium 8.3 mg/dL Low 8.5-10.1 [facility] Work Phone: [phone] Chloride 101 mmol/L Invalid Interpretation Code 98-107 [email or web address] Phone: [phone] CO2 26.0 mmol/L Invalid Interpretation Code 21.0-32.0 [email or web address] Phone: [phone] Creatinine 27.94 mL/min Invalid Interpretation Code [email or web address] Phone: [phone] Creatinine 2.21 mg/dL High 0.70-1.30 [email or web address] Phone: [phone] eGFR (non-black) 31 mL/min/{1.73_m2} Low >60 [facility] Work Phone: [phone] eGFR (non-black) 37 mL/min/{1.73_m2} Low >60 [facility] Work Phone: [phone] Glucose mass conc 118 mg/dL High 70-110 [facility] Work Phone: [phone] Potassium molar conc 3.3 mmol/L Low 3.5-5.1 [facility] Work Phone: [phone] Sodium 138 mmol/L Invalid Interpretation Code 136-145 [facility] Work Phone: [phone] Urea nitrogen 40 mg/dL High 7-18 [facility] Work Phone: [phone] Lab Report: CBC W/Diff, Auto matedon 03-31-2017 Absolute Neut 10.9 X10 3/UL High 2.0-7.7 [facility] Work Phone: [phone] Erythrocyte distribution width Auto Ratio (RBC) 17.6 % High 11.6-14.6 [facility] Work Phone: [phone] Erythrocytes (RBC) 3.08 10*6/uL Low 4.6-6.2 [facility] Work Phone: [phone] Hematocrit (HCT) 25.2 % Low 40-54 [facility] Work Phone: [phone] Hemoglobin mass conc (Bld) 7.5 g/dL Low 13.0-16.5 [facility] Work Phone: [phone] Lymphocytes/100 leukocytes 7.0 % Low 19-41 [facility] Work Phone: [phone] MCH 24.4 pg Low 27.0-32.0 [facility] Work Phone: [phone] MCHC mass conc (RBC) 29.8 G/GL Low 32-36 [facility] Work Phone: [phone] Neutrophils/100 WBC Auto (Bld) 83.6 % High 47-70 [facility] Work Phone: [phone] RDW SD 49.3 fL High 35.1-43.9 [facility] Work Phone: [phone] WBC (Leukocytes) 13.1 10*3/uL High 4.4-11.0 [facility] Work Phone: [phone] Basophils/100 WBC Auto (Bld) 0.2 % Invalid Interpretation Code 0-1 [facility] Work Phone: [phone] Eosinophils/100 leukocytes 1.2 % Invalid Interpretation Code 0-5 [facility] Work Phone: [phone] Immature granulocytes/100 WBC (Bld) 0.300 % Invalid Interpretation Code 0.0-0.9 [facility] Work Phone: [phone] Lymphocytes 0.92 X10 3/UL Invalid Interpretation Code 0.83-4.51 [facility] Work Phone: [phone] MCV 81.8 fL Invalid Interpretation Code 80-94 [facility] Work Phone: [phone] Monocytes/100 leukocytes 7.7 % Invalid Interpretation Code 0-10 [facility] Work Phone: [phone] Platelets 396 10*3/mm3 Invalid Interpretation Code 150-450 [facility] Work Phone: [phone] PMV by Jeanna 9.0 fL Invalid Interpretation Code 6.2-12.0 [facility] Work Phone: [phone]) Lab Report: CPK Total, Creat ine Kinaseon 03-31-2017 Creatine kinase (CK) 35 U/L Low 39-308 [facility] Work Phone: [phone]) Lab Report: ACT Activated Cl otting Timeon 03-30-2017 ACTk CLOT TIME 197 sec High 74-137 [facility] Work Phone: [phone]) Lab Report: Partial Thrombop last Timeon 03-23-2017 aPTT 35.5 s Invalid Interpretation Code 24.1-36.2 [facility] Work Phone: [phone] Replaced Document: (P) Proth rombin Time w/INRon 03-23-2017 INR Coag RelTime (PPP) 1.1 {INR} Invalid Interpretation Code [facility] Work Phone: [phone] Prothrombin time (PT) Coag time (PPP) 13.9 s Invalid Interpretation Code 11.7-14.9 [facility] Work Phone: [phone]) Lab Report: BNP,B-Type NATRI URETIC PEPTIDEon 03-07-2017 BNP 43.4 pg/mL Invalid Interpretation Code 0-100 [facility] Work Phone: [phone] Replaced Document: Tate Perezon 02-25-2017 EKG QRS axis -1 deg Invalid Interpretation Code [facility] Work Phone: [phone] Interpretation Sinus Rhythm -Nonspe cific ST depression -Nondiagnostic. ABNORMAL Invalid Interpretation Code [facility] Work Phone: [phone] P [place] 51 deg Invalid Interpretation Code [facility] Work Phone: [phone] CO Interval 132 ms Invalid Interpretation Code [facility] Work Phone: [phone] Pulse (Heart Rate) 78 /min Invalid Interpretation Code [facility] Work Phone: [phone] QRS Duration 96 ms Invalid Interpretation Code [facility] Work Phone: [phone] QT Interval new path ms Invalid Interpretation Code [facility] Work Phone: [phone] T [place] -1 deg Invalid Interpretation Code [facility] Work Phone: [phone]) Clinical Lists Update: Pre appliance parts 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 clerk 02-24-2017 Alanine aminotransferase (ALT) 12 U/L Invalid Interpretation Code [facility] Work Phone: [phone] Albumin 3.8 g/dL Low [facility] Work Phone: [phone] Alkaline phosphatase (ALP) 99 U/L Invalid Interpretation Code [facility] Work Phone: [phone] Aspartate aminotransferase (AST) 15 U/L Invalid Interpretation Code [facility] Work Phone: [phone] Bilirubin (total) 0.2 mg/dL Invalid Interpretation Code [facility] Work Phone: [phone] Protein 7.5 g/dL Invalid Interpretation Code [facility] Work Phone: [phone] External Other: Preferred Me thod of Contacton 01-18-2017 methcontact secmsg Invalid Interpretation Code [facility] Work Phone: [phone]) Clinical Lists Update: 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 12-24-2016 Albumin/Globulin Ratio 0.7 {ratio} Low [facility] Work Phone: [phone] eGFR (non-black) 51 mL/min/{1.73_m2} Low [facility] Work Phone: [phone] eGFR (non-black) 46 mL/min/{1.73_m2} Low [facility] Work Phone: [phone] Globulin 3.9 g/dL High [facility] Work Phone: [phone] Magnesium 2.2 mg/dL Invalid Interpretation Code [facility] Work Phone: [phone] Clinical Lists Update: Pre12-21-2016 Cholesterol 172 mg/dL Invalid Interpretation Code [facility] Work Phone: [phone] HDL Cholesterol 31 mg/dL Low [facility] Work Phone: [phone] LDL Cholesterol 103 mg/dL Invalid Interpretation Code [facility] Work Phone: [phone] Triglyceride 192 mg/dL Invalid Interpretation Code [facility] Work Phone: [phone] very low density lipoproteins 38 mg/dL Invalid Interpretation Code [facility] Work Phone: [phone] Vital Signs Date Time Vital Sign Value Performing Clinician Roderick delgado 01-09-2025 14:13-0400 Body mass index (BMI) [Ratio] 25.07 kg/m2 Khloe Swank SERVICE PARTS COORDINATOR.DOLPHIN RESEARCHER Work Phone: [facility] 01-09-2025 14:13-040 Body temperature 97.2 [degF] Khloe Swank SERVICE PARTS COORDINATOR.DOLPHIN RESEARCHER Work Phone: [facility] 01-09-2025 14:13-0400 Body weight 74.8 kg Khloe Swank SERVICE PARTS COORDINATOR.DOLPHIN RESEARCHER Work Phone: [facility] 01-09-2025 14:13-0400 Diastolic blood pressure 72 mm[Hg] Khloe Swank SERVICE PARTS COORDINATOR.DOLPHIN RESEARCHER Work Phone: [facility] 01-09-2025 14:13-0400 Heart rate 64 /min Khloe Swank SERVICE PARTS COORDINATOR.DOLPHIN RESEARCHER Work Phone: [facility] 01-09-2025 14:13-0400 Respiratory rate 18 /min Khloe Swank SERVICE PARTS COORDINATOR.DOLPHIN RESEARCHER Work Phone: [facility] 01-09-2025 14:13-0400 SaO2% (BldA) [Mass fraction] 95 % Khloe Swank SERVICE PARTS COORDINATOR.DOLPHIN RESEARCHER Work Phone: [facility] 01-09-2025 14:13-0400 Systolic blood pressure 132 mm[Hg] Khloe Swank SERVICE PARTS COORDINATOR.DOLPHIN RESEARCHER Work Phone: [facility] 11-26-2024 15:12-0400 Body mass index (BMI) [Ratio] 25.71 kg/m2 Theodora Scotty SERVICE PARTS COORDINATOR.DOLPHIN RESEARCHER Work Phone: [facility] 11-26-2024 15:12-0400 Body weight 76.7 kg Theodora Scotty SERVICE PARTS COORDINATOR.DOLPHIN RESEARCHER Work Phone: [facility] 11-26-2024 15:12-0400 Diastolic blood pressure 60 mm[Hg] Theodora Scotty SERVICE PARTS COORDINATOR.DOLPHIN RESEARCHER Work Phone: [facility] 11-26-2024 15:12-0400 Heart rate 62 /min Theodora Scotty SERVICE PARTS COORDINATOR.DOLPHIN RESEARCHER Work Phone: [facility] 11-26-2024 15:12-0400 SaO2% (BldA) [Mass fraction] 97 % Theodora Scotty SERVICE PARTS COORDINATOR.DOLPHIN RESEARCHER Work Phone: [facility] 11-26-2024 15:12-0400 Systolic blood pressure 120 mm[Hg] Theodora Scotty SERVICE PARTS COORDINATOR.DOLPHIN RESEARCHER Work Phone: [facility] 09-26-2024 14:07-0500 Body mass index (BMI) [Ratio] 25.09 kg/m2 Samson Ragsdale DO Work Phone: [facility] 09-26-2024 14:07-0500 Body temperature 97 [degF] Samson Ragsdale DO Work Phone: [facility] 09-26-2024 14:07-0500 Body weight 74.84 kg Samson Ragsdale DO Work Phone: [facility] 09-26-2024 14:07-0500 Diastolic blood pressure 70 mm[Hg] Samson Ragsdale DO Work Phone: [facility] 09-26-2024 14:07-0500 Heart rate 64 /min Samson Ragsdale DO Work Phone: [facility] 09-26-2024 14:07-0500 Respiratory rate 20 /min Samson Ragsdale DO Work Phone: [facility] 09-26-2024 14:07-0500 Systolic blood pressure 138 mm[Hg] Samson Ragsdale DO Work Phone: [facility] 05-23-2024 14:45-0400 Diastolic blood pressure 66 mm[Hg] Malu Mendoza MD Work Phone: [facility] 05-23-2024 14:45-0400 Heart rate 61 /min Malu Mendoza MD Work Phone: [facility] 05-23-2024 14:45-0400 SaO2% (BldA) [Mass fraction] 98 % Malu Mendoza MD Work Phone: [facility] 05-23-2024 14:45-0400 Systolic blood pressure 147 mm[Hg] Malu Mendoza MD Work Phone: [facility] 05-23-2024 14:30-0400 Respiratory rate 18 /min Malu Mendoza MD Work Phone: [facility] 05-23-2024 14:11-0400 Body temperature 97.7 [degF] Malu Mendoza MD Work Phone: [facility] 05-23-2024 12:11-0400 Body height 172.7 cm Malu Mendoza MD Work Phone: [facility] 05-23-2024 12:11-0400 Body mass index (BMI) [Ratio] 24.78 kg/m2 Malu Mendoza MD Work Phone: [facility] 05-23-2024 12:11-0400 Body weight 73.94 kg Malu Mendoza MD Work Phone: [facility] 05-09-2024 [id number] Body height 172.7 cm Pacc 1 Work Phone: [facility] 05-09-2024 13:31-0400 Body mass index (BMI) [Ratio] 24.78 kg/m2 Pacc 1 Work Phone: [facility] 05-09-2024 13:31-0400 Body temperature 97.7 [degF] Pacc 1 Work Phone: [facility] 05-09-2024 [phone] Body weight 73.94 kg Pacc 1 Work Phone: [facility] 05-09-2024 13:31-0400 Diastolic blood pressure 68 mm[Hg] Pacc 1 Work Phone: [facility] 05-09-2024 13:31-0400 Heart rate 62 /min Pacc 1 Work Phone: [facility] 05-09-2024 13:31-0400 Respiratory rate 18 /min Pacc 1 Work Phone: [facility] 05-09-2024 13:31-0400 SaO2% (BldA) [Mass fraction] 96 % Pacc 1 Work Phone: [facility] 05-09-2024 13:31-0400 Systolic blood pressure 128 mm[Hg] Pacc 1 Work Phone: [facility] 04-13-2024 14:19-0400 Body height 172.7 cm Cristela Troy SERVICE PARTS COORDINATOR.DOLPHIN RESEARCHER Work Phone: [facility] 04-13-2024 14:19-0400 Body mass index (BMI) [Ratio] 24.54 kg/m2 Cristela Troy SERVICE PARTS COORDINATOR.DOLPHIN RESEARCHER Work Phone: [facility] 04-13-2024 14:19-0400 Body weight 73.21 kg Cristela Troy SERVICE PARTS COORDINATOR.DOLPHIN RESEARCHER Work Phone: [facility] 04-13-2024 14:19-0400 Diastolic blood pressure 57 mm[Hg] Cristela Troy SERVICE PARTS COORDINATOR.DOLPHIN RESEARCHER Work Phone: [facility] 04-13-2024 14:19-0400 Heart rate 64 /min Cristela Troy SERVICE PARTS COORDINATOR.DOLPHIN RESEARCHER Work Phone: [facility] 04-13-2024 14:19-0400 SaO2% (BldA) [Mass fraction] 96 % Cristela Troy SERVICE PARTS COORDINATOR.DOLPHIN RESEARCHER Work Phone: [facility] 04-13-2024 14:19-0400 Systolic blood pressure 116 mm[Hg] Cristela Troy SERVICE PARTS COORDINATOR.DOLPHIN RESEARCHER Work Phone: [facility] 03-26-2024 14:47-0400 Body mass index (BMI) [Ratio] 24.78 kg/m2 Samson Ragsdale DO Work Phone: [facility] 03-26-2024 14:47-0400 Body temperature 97.39 [degF] Samson Ragsdale DO Work Phone: [facility] 03-26-2024 14:47-0400 Body weight 73.94 kg Samson Ragsdale DO Work Phone: [facility] 03-26-2024 14:47-0400 Diastolic blood pressure 60 mm[Hg] Samson Ragsdale DO Work Phone: [facility] 03-26-2024 14:47-0400 Heart rate 64 /min Samson Ragsdale DO Work Phone: [facility] 03-26-2024 14:47-0400 Respiratory rate 20 /min Samson Ragsdale DO Work Phone: [facility] 03-26-2024 14:47-0400 Systolic blood pressure 120 mm[Hg] Samson Ragsdale DO Work Phone: [facility] 10-04-2023 10:21-0500 Diastolic blood pressure 68 mm[Hg] Brittany West DO Work Phone: [facility] 10-04-2023 10:21-0500 Heart rate 64 /min Brittnay West DO Work Phone: [facility] 10-04-2023 10:21-0500 SaO2% (BldA) [Mass fraction] 97 % Brittany West DO Work Phone: [facility] 10-04-2023 10:21-0500 Systolic blood pressure 137 mm[Hg] Brittany West DO Work Phone: [facility] 09-26-2023 12:20-0500 Body temperature 97.2 [degF] Samson Ragsdale DO Work Phone: [facility] 09-26-2023 12:20-0500 Body weight 79.83 kg Samson Ragsdale DO Work Phone: [facility] 09-26-2023 12:20-0500 Diastolic blood pressure 64 mm[Hg] Samson Ragsdale DO Work Phone: [facility] 09-26-2023 12:20-0500 Heart rate 64 /min Samson Ragsdale DO Work Phone: [facility] 09-26-2023 12:20-0500 Respiratory rate 20 /min Samson Ragsdale DO Work Phone: [facility] 09-26-2023 12:20-0500 Systolic blood pressure 138 mm[Hg] Samson Ragsdale DO Work Phone: [facility] 05-31-2023 10:23-0400 Diastolic blood pressure 58 mm[Hg] Brittany West DO Work Phone: [facility] 05-31-2023 10:23-0400 Heart rate 64 /min Brittany West DO Work Phone: [facility] 05-31-2023 10:23-0400 SaO2% (BldA) [Mass fraction] 95 % Brittany West DO Work Phone: [facility] 05-31-2023 10:23-0400 Systolic blood pressure 122 mm[Hg] Brittany West DO Work Phone: [facility] 05-28-2023 15:25-0400 Heart rate 74 /min DUSTIN MIJARES MD [address] [place] [address] 05-28-2023 12:38-0400 Heart rate 64 /min DUSTIN MIJARES MD [address] [place] [address] 05-28-2023 10:25-0400 Blood Pressure Cuff Size DUSTIN MIJARES MD [address] [place] [address] 05-28-2023 10:25-0400 Blood Pressure Location DUSTIN MIJARES MD [address] [place] [address] 05-28-2023 10:25-0400 Blood Pressure Method DUSTIN MIJARES MD [address] [place] [address] 05-28-2023 10:25-0400 Body temperature 98.24 [degF] DUSTIN MIJARES MD [address] [place] [address] 05-28-2023 10:25-0400 Diastolic Blood Pressure Non-Invasive 58 1 DUSTIN MIJARES MD [address] [place] [address] 05-28-2023 10:25-0400 Reason For Taking VItal Signs DUSTIN MIJARES MD [address] [place] [address] 05-28-2023 10:25-0400 Respiratory rate 18 /min DUSTIN MIJARES MD [address] [place] [address] 05-28-2023 10:25-0400 Systolic Blood Pressure Non-Invasive 110 1 DUSTIN MIJARES MD [address] [place] [address] 05-28-2023 09:55-0400 diastolic 64 mm[Hg] DUSTIN MIJARES MD [address] [place] [address] 05-28-2023 09:55-0400 diastolic 70 mm[Hg] DUSTIN MIJARES MD [address] [place] [address] 05-28-2023 09:55-0400 Heart rate 73 /min DUSTIN MIJARES MD [address] [place] [address] 05-28-2023 09:55-0400 Heart rate 85 /min DUSTIN MIJARES MD [address] [place] [address] 05-28-2023 09:55-0400 Respiratory rate 18 /min DUSTIN MIJARES MD [address] [place] [address] 05-28-2023 09:55-0400 Respiratory rate 20 /min DUSTIN MIJARES MD [address] [place] [address] 05-28-2023 09:55-0400 systolic 140 mm[Hg] DUSTIN MIJARES MD [address] [place] [address] 05-28-2023 09:55-0400 systolic 142 mm[Hg] DUSTIN IMJARES MD [address] [place] [address] 05-28-2023 05:02-0400 Heart rate 73 /min DUSTIN MIJARES MD [address] [place] [address] 05-28-2023 05:02-0400 Mean blood pressure 78 mm[Hg] DUSTIN MIJARES MD [address] [place] [address] 05-27-2023 23:22-0400 Mean blood pressure 79 mm[Hg] DUSTIN MIJARES MD [address] [place] [address] 05-27-2023 22:50-0400 Body temperature 98.24 [degF] DUSTIN MIJARES MD [address] [place] [address] 05-27-2023 22:50-0400 Reason For Taking VItal Signs DUSTIN MIJARES MD [address] [place] [address] 05-27-2023 21:30-0400 Body temperature 98.24 [degF] DUSTIN MIJARES MD [address] [place] [address] 05-27-2023 21:30-0400 Mean blood pressure 91 mm[Hg] DUSTIN MIJARES MD [address] [place] [address] 05-27-2023 21:30-0400 Reason For Taking VItal Signs DUSTIN MIJARES MD [address] [place] [address] 05-27-2023 08:13-0400 Blood Pressure Cuff Size DUSTIN MIJARES MD [address] 05-27-2023 08:13-0400 Blood Pressure Location DUSTIN MIJARES MD [address] [place] [address] 05-27-2023 08:13-0400 Blood Pressure Method DUSTIN MIJARES MD [address] [place] [address] 05-27-2023 03:37-0400 Blood Pressure Cuff Size DUSTIN MIJARES MD [address] [place] [address] 05-27-2023 03:37-0400 Blood Pressure Location DUSTIN MIJARES MD [address] [place] [address] 05-27-2023 03:37-0400 Blood Pressure Method DUSTIN MIJARES MD [address] [place] [address] 05-24-2023 21:25-0400 Body height 172.7 cm DUSTIN MIJARES MD [address] [place] [address] 05-24-2023 21:25-0400 Body weight 77.7 kg DUSTIN MIJARES MD [address] [place] [address] 05-24-2023 21:25-0400 Body weight 26.05 kg/m2 DUSTIN MIJARES MD [address] [place] [address] 05-24-2023 21:15-0400 Heart rate 64 /min DUSTIN MIJARES MD [address] [place] [address] 03-23-2023 13:50-0400 Body weight 78.93 kg Samson Ragsdale DO Work Phone: [facility] 03-23-2023 13:50-0400 Diastolic blood pressure 70 mm[Hg] Samson Ragsdale DO Work Phone: [facility] 03-23-2023 13:50-0400 Heart rate 58 /min Samson Ragsdale DO Work Phone: [facility] 03-23-2023 13:50-0400 Respiratory rate 14 /min Samson Ragsdale DO Work Phone: [facility] 03-23-2023 13:50-0400 SaO2% (BldA) [Mass fraction] 98 % Samson Ragsdale DO Work Phone: [facility] 03-23-2023 13:50-0400 Systolic blood pressure 112 mm[Hg] Samson Argsdale DO Work Phone: [facility] 11-30-2022 12:33-0400 Body temperature 97.3 [degF] Tonny Ezequiel SERVICE PARTS COORDINATOR.DOLPHIN RESEARCHER Work Phone: [facility] 11-30-2022 12:33-0400 Body weight 78.47 kg Tonny Ezequiel SERVICE PARTS COORDINATOR.DOLPHIN RESEARCHER Work Phone: [facility] 11-30-2022 12:33-0400 Diastolic blood pressure 62 mm[Hg] Tonny Ezequiel SERVICE PARTS COORDINATOR.DOLPHIN RESEARCHER Work Phone: [facility] 11-30-2022 12:33-0400 Heart rate 64 /min Tonny Ezequiel SERVICE PARTS COORDINATOR.DOLPHIN RESEARCHER Work Phone: [facility] 11-30-2022 12:33-0400 Respiratory rate 18 /min Tonny Ezequiel SERVICE PARTS COORDINATOR.DOLPHIN RESEARCHER Work Phone: [facility] 11-30-2022 12:33-0400 SaO2% (BldA) [Mass fraction] 97 % Tonny Ezequiel SERVICE PARTS COORDINATOR.DOLPHIN RESEARCHER Work Phone: [facility] 11-30-2022 12:33-0400 Systolic blood pressure 126 mm[Hg] Tonny Ezequiel SERVICE PARTS COORDINATOR.DOLPHIN RESEARCHER Work Phone: [facility] 09-22-2022 14:03-0500 Body temperature 97 [degF] Samson Ragsdale DO Work Phone: [facility] 09-22-2022 14:03-0500 Body weight 79.38 kg Samson Ragsdale DO Work Phone: [facility] 09-22-2022 14:03-0500 Diastolic blood pressure 60 mm[Hg] Samson Ragsdale DO Work Phone: [facility] 09-22-2022 14:03-0500 Heart rate 64 /min Samson Ragsdale DO Work Phone: [facility] 09-22-2022 14:03-0500 Respiratory rate 20 /min Samson Ragsdale DO Work Phone: [facility] 09-22-2022 14:03-0500 Systolic blood pressure 110 mm[Hg] Samson Ragsdale DO Work Phone: [facility] 07-28-2022 10:01-0500 Body temperature 97.5 [degF] Jocelin Athy PA-C Work Phone: [facility] 07-28-2022 10:01-0500 Body weight 79.38 kg Jocelin Athy PA-C Work Phone: [facility] 07-28-2022 10:01-0500 Diastolic blood pressure 72 mm[Hg] Jocelin Athy PA-C Work Phone: [facility] 07-28-2022 10:01-0500 Heart rate 60 /min Jocelin Athy PA-C Work Phone: [facility] 07-28-2022 10:01-0500 Respiratory rate 18 /min Jocelin Athy PA-C Work Phone: [facility] 07-28-2022 10:01-0500 SaO2% (BldA) [Mass fraction] 97 % Jocelin Athy PA-C Work Phone: [facility] 07-28-2022 10:01-0500 Systolic blood pressure 136 mm[Hg] Jocelin Athy PA-C Work Phone: [facility] 03-23-2022 14:32-0400 Body temperature 97.5 [degF] Samson Ragsdale DO Work Phone: [facility] 03-23-2022 14:32-0400 Body weight 76.2 kg Samson Ragsdale DO Work Phone: [facility] 03-23-2022 14:32-0400 Diastolic blood pressure 70 mm[Hg] Samson Ragsdale DO Work Phone: [facility] 03-23-2022 14:32-0400 Heart rate 64 /min Samson Ragsdale DO Work Phone: [facility] 03-23-2022 14:32-0400 Respiratory rate 16 /min Samson Perryrison DO Work Phone: [facility] 03-23-2022 14:32-0400 Systolic blood pressure 110 mm[Hg] Samson Perryrison DO Work Phone: [facility] 06-27-2017 09:32-0500 BMI (Body Mass Index) 27.06 kg/m2 [facility] Work Phone: 06-27-2017 09:32-0500 BP Diastolic 50 mm[Hg] [facility] Work Phone: 06-27-2017 09:32-0500 BP Systolic 120 mm[Hg] [facility] Work Phone: 06-27-2017 09:32-0500 Height 172.72 cm [facility] Work Phone: 06-27-2017 09:32-0500 Pulse (Heart Rate) 84 /min [facility] Work Phone: 06-27-2017 09:32-0500 Respiratory Rate 20 /min [facility] Work Phone: 06-27-2017 09:32-0500 Weight 80.74 kg [facility] Work Phone: 04-21-2017 15:16-0400 BMI (Body Mass Index) 28.58 kg/m2 Yu Joshi RN [facility] Work Phone: 04-21-2017 15:16-0400 BP Diastolic 70 mm[Hg] [facility] Work Phone: 04-21-2017 15:16-0400 BP Systolic 150 mm[Hg] [facility] Work Phone: 04-21-2017 15:16-0400 Height 172.72 cm [facility] Work Phone: 04-21-2017 15:16-0400 Pulse (Heart Rate) 88 /min Yu Joshi RN [facility] Work Phone: 04-21-2017 15:16-0400 Respiratory Rate 18 /min Yu Joshi RN [facility] [employer] [facility] Work Phone: 04-21-2017 15:16-0400 Weight 85.28 kg Yu Joshi RN [facility] Work Phone: 04-20-2017 10:41-0400 Body Temperature 98.2 [degF] Yu Joshi RN [facility] [employer] Work Phone: Encounters Encounter Date Encounter Type Care Provider Facility Start: 01-09-2025 End: 01-09-2025 Subsequent hospital visit by physician [facility]ude[facility] Work Phone: Radiology Comment on above: Acute cough [R05.1] Start: 01-09-2025 End: 01-09-2025 Patient encounter procedure Khloe Glenn VILLAREALDOLPHIN RESEARCHER Work Phone: [facility] Comment on above: Acute cough (Primary Dx); Acute non-recurrent maxillary sinusitis Start: 01-09-2025 End: 01-09-2025 ambulatory KHLOEMor IBARRA Facility:[facility] Start: 12-10-2024 End: 12-10-2024 ambulatory Mary Ross MA [facility] Start: 12-10-2024 End: 12-10-2024 [facility] [place] Comment on above: Population Health Na vigation Outreach [facility] Start: 11-30-2024 End: 11-30-2024 Follow-up encounter Theodora Hernandez APRN.DOLPHIN RESEARCHER Work Phone: [facility] Start: 11-26-2024 End: 11-26-2024 Subsequent hospital visit by physician [facility]ude[facility] Work Phone: Radiology Comment on above: Acute pain of both s houlders [M25.511, M25.512] Start: 11-26-2024 End: 11-26-2024 Office outpatient visit 15 minutes Theodora Hernandez APRN.CNP Work Phone: [facility] Comment on above: Upper back pain (Maty yesica Dx); Acute pain of both shoulders; Type 2 diabetes mellitus without complication, with long-term current use of insulin (HCC) Start: 11-26-2024 End: 11-26-2024 ambulatory THEODORA HERNANDEZ Facility:[facility] Start: 10-25-2024 End: 10-25-2024 Refill Samson Ragsdale DO Work Phone: [facility] Comment on above: Refill Request Start: 09-26-2024 End: 09-26-2024 ambulatory SAMSON RAGSDALE Facility:[facility] Start: 09-26-2024 End: 09-26-2024 Patient encounter procedure Samson Ragsdale DO Work Phone: [facility] Comment on above: 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, with long-term current use of insulin (HCC) (Primary Dx); Essential hypertension, benign; CKD (chronic kidney disease) stage 4, GFR 15-29 ml/min (HCC); Hypertensive heart disease without heart failure; Other polyneuropathy; Hypertensive kidney disease with chronic kidney disease stage IV (HCC); Arthritis, multiple joint involvement; Gout of multiple sites, unspecified cause, unspecified chronicity; 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); Pure hypercholesterolemia; Vitamin D deficiency Start: 09-19-2024 End: 11-19-2024 Follow-up encounter Desirae Irving APRN.DOLPHIN RESEARCHER Work Phone: [facility] [place] Start: 09-17-2024 End: 09-17-2024 Orders Only Desirae Irving APRN.DOLPHIN RESEARCHER Work Phone: [facility] Comment on above: 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, with long-term current use of insulin (HCC) (Primary Dx); Essential hypertension, benign; Hypertensive kidney disease with chronic kidney disease stage IV (HCC); Screening for prostate cancer Lab Orders Start: 06-08-2024 End: 06-08-2024 Telephone encounter Cristela Andersen APRN.CNP Work Phone: General Surgery Comment on above: Medication Problem Start: 05-31-2024 End: 05-31-2024 [facility] Facility:[facility] Start: 05-31-2024 End: 05-31-2024 Patient encounter procedure Cristelakarley Andersen APRN.CNP Work Phone: General Surgery Comment on above: Collagenous colitis (Primary Dx) Start: 05-30-2024 End: 05-30-2024 Telephone encounter Cristelakarley Andersen APRN.CNP Work Phone: General Surgery Comment on above: Appointment Start: 05-23-2024 ambulatory [facility] Facility[facility] Start: 05-23-2024 End: 05-23-2024 Subsequent hospital visit by physician Malu Mendoza MD Work Phone: [facility] Comment on above: Chronic diarrhea [K5 2.9] Start: 05-09-2024 End: 05-09-2024 Admission to establishment [facility] Work Phone: Pre Anesthesia Start: 05-09-2024 End: 05-09-2024 [facility] Facility:[facility] Start: 05-09-2024 End: 05-09-2024 Anesthesia consultation [facility] Work Phone: Pre Anesthesia Comment on above: Pre-operative examin ation (Primary Dx); Other polyneuropathy; Abdominal aortic aneurysm (AAA) without rupture, unspecified part ([facility]); 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 ([facility]); Complete atrioventricular block ([facility]); Essential hypertension, benign; Hypertensive kidney disease with chronic kidney disease stage IV ([facility]); Pure hypercholesterolemia; Carotid atherosclerosis, bilateral; Diaphragmatic hernia without obstruction and without gangrene; 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, with long-term current use of insulin ([facility]); Hypercalcemia; Iron deficiency anemia due to chronic blood loss; History of prostate cancer; Gout of multiple sites, unspecified cause, unspecified chronicity; Psoriasis; Dementia in other diseases classified elsewhere, unspecified severity, with mood disturbance ([facility]) Start: 05-09-2024 End: 05-09-2024 Preprocedural examination done Pac [facility] Work Phone: [facility] Start: 05-08-2024 End: 08-21-2024 Telephone encounter Samson Perryrison DO Work Phone: [facility] Comment on above: Erroneous encounter- disregard Start: 04-27-2024 End: 04-27-2024 Refill Samson Jamir PerryRagsdale DO Work Phone: [facility] Comment on above: Refill Request Start: 04-16-2024 End: 06-05-2024 Telephone encounter Cristela Andersen APRN.CNP Work Phone: General Surgery Comment on above: Appointment Start: 04-13-2024 End: 04-13-2024 ambulatory SAMSON L RAGSDALE Facility:[facility] Start: 04-13-2024 End: 04-13-2024 Patient encounter procedure Cristela Andersen APRN.CNP Work Phone: General Surgery Comment on above: Gastroesophageal ref lux disease without esophagitis (Primary Dx); Chronic diarrhea; Generalized abdominal pain Start: 04-12-2024 End: 04-12-2024 Telephone encounter Samson Perryrison DO Work Phone: [facility] Comment on above: Patient Question Start: 04-06-2024 End: 04-06-2024 Refill Samson Jamir PerryRagsdale DO Work Phone: [facility] Comment on above: Refill Request Start: 04-03-2024 End: 04-03-2024 Refill Samson L Ragsdale DO Work Phone: [facility] Comment on above: Refill Request Start: 03-26-2024 End: 03-26-2024 ambulatory SAMSON L RAGSDALE Facility:[facility] Start: 03-26-2024 End: 03-26-2024 Patient encounter procedure Samson L Ragsdale DO Work Phone: [facility] Comment on above: Chronic diarrhea (Pr imary Dx); Generalized abdominal pain; Other polyneuropathy; Hypertensive kidney disease with chronic kidney disease stage IV (HCC); Essential hypertension, benign; 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); Abdominal aortic aneurysm (AAA) without rupture, unspecified part (HCC); 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, with long-term current use of insulin (HCC); Arthritis, multiple joint involvement; Stage 3b chronic kidney disease (HCC) Start: 03-19-2024 End: 03-19-2024 ambulatory DESIRAE IRVING Facility:[facility] Start: 03-09-2024 Telephone encounter Samson rodriguez DO Work Phone: [facility] Comment on above: Orders Start: 01-27-2024 Refill Samson irizarry DO Work Phone: [facility] Comment on above: Refill Request Start: 01-12-2024 End: 01-12-2024 Emergency department patient visit Samson Ragsdale Facility:[facility] Start: 11-10-2023 Telephone encounter Samson rodriguez DO Work Phone: [facility] Start: 10-24-2023 Refill Samson irizarry DO Work Phone: [facility] Comment on above: Refill Request Start: 10-04-2023 End: 10-04-2023 Patient encounter procedure Brittany Washington [place] DO Work Phone: Vascular Surgery Comment on above: Bilateral carotid ar pawan stenosis (Primary Dx); Infrarenal abdominal aortic aneurysm (AAA) without rupture (HCC) Start: 09-27-2023 Telephone encounter Samson rodriguez DO Work Phone: [facility] Start: 09-26-2023 End: 09-26-2023 Patient encounter procedure Samson Ragsdale DO Work Phone: [facility] Comment on above: CKD (chronic kidney disease) stage 4, GFR 15-29 ml/min (HCC) (Primary Dx); Hypertensive heart disease without heart failure; Essential hypertension, benign; Diarrhea, unspecified type; Complete atrioventricular block (HCC); Malignant neoplasm of prostate (HCC); Type 2 diabetes mellitus with stage 4 chronic kidney disease, with long-term current use of insulin (HCC); 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); Coronary artery 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 rich plaque; Other polyneuropathy; Gout of multiple sites, unspecified cause, unspecified chronicity; Arthritis, multiple joint involvement; Tinnitus, bilateral; Other specified hearing loss of both ears; Actinic keratosis Start: 09-19-2023 Orders Only Desirae Irving APRN.DOLPHIN RESEARCHER Work Phone: [facility] Comment on above: Type 2 diabetes dominic itus with stage 4 chronic kidney disease, with long-term current use of insulin (HCC) (Primary Dx); Malignant neoplasm of prostate (HCC); Essential hypertension, benign; History of prostate cancer Start: 07-05-2023 Refill Samson Blackwood Coiln irizarry DO Work Phone: [facility] Comment on above: Refill Request Start: 06-07-2023 Telephone encounter Samson rodriguez DO Work Phone: [facility] Comment on above: [facility] Forms Start: 05-31-2023 End: 05-31-2023 Patient encounter procedure Brittany West DO Work Phone: Vascular Surgery Comment on above: Bilateral carotid ar pawan stenosis (Primary Dx); Infrarenal abdominal aortic aneurysm (AAA) without rupture (HCC) Start: 05-30-2023 Telephone encounter Samson rodriguez DO Work Phone: [facility] Comment on above: [facility] Benefit Paperwork Start: 05-24-2023 End: 05-28-2023 Evaluation and management of inpatient DUSTIN MIJARES MD Facility:[facility] Start: 05-24-2023 End: 05-28-2023 Evaluation and management of inpatient DUSTIN MIJARES MD [facility] Start: 05-09-2023 Telephone encounter Samson rodriguez DO Work Phone: [facility] Comment on above: Physician requesting call back Start: 05-09-2023 End: 05-09-2023 Nursing evaluation of patient and report Nurse Card Admin [facility] Work Phone: Cardiology Comment on above: Screening for ischem ic heart disease (Primary Dx) Start: 05-09-2023 End: 05-09-2023 Subsequent hospital visit by physician [facility] Work Phone: Nuclear Medicine Comment on above: SOB (shortness of br eath) [R06.02] Start: 03-24-2023 Telephone encounter Samson rodriguez DO Work Phone: [facility] Comment on above: Results Start: 03-23-2023 End: 03-23-2023 Subsequent hospital visit by physician Xr [facility] Work Phone: Radiology Comment on above: SOB (shortness of br eath) [R06.02] Start: 03-23-2023 End: 03-23-2023 Patient encounter procedure Samson Ragsdale DO Work Phone: [facility] Comment on above: SOB (shortness of br eath) (Primary Dx); Coronary artery 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 rich plaque; Chest pain on breathing; Bilateral chronic knee pain; 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; Type 2 diabetes mellitus with stage 4 chronic kidney disease, with long-term current use of insulin ([facility]); Malignant neoplasm of prostate ([facility]); 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 ([facility]); Other polyneuropathy; Essential hypertension, benign; Gout of multiple sites, unspecified cause, unspecified chronicity; Arthritis, multiple joint involvement; Vitamin D deficiency; CKD (chronic kidney disease) stage 4, GFR 15-29 ml/min ([facility]) Start: 03-07-2023 Telephone encounter Samson rodriguez DO Work Phone: [address] [place] [address] Comment on above: Orders Start: 02-02-2023 Refill Samson irizarry DO Work Phone: [facility] Comment on above: Refill Request Start: 11-30-2022 End: 11-30-2022 Patient encounter procedure Tonny Nieves APRN.DOLPHIN RESEARCHER Work Phone: [facility] Comment on above: Sinobronchitis (Prim vinita Dx) Start: 10-27-2022 Refill Samson irizarry DO Work Phone: [facility] Comment on above: Refill Request Start: 10-08-2022 Telephone encounter Samson rodriguez DO Work Phone: [facility] Comment on above: Results Start: 09-24-2022 Refill Samson irizarry DO Work Phone: [facility] Comment on above: Refill Request Start: 09-22-2022 End: 09-22-2022 Patient encounter procedure Samson Ragsdale DO Work Phone: [facility] Comment on above: Controlled type 2 di abetes mellitus without complication, without long-term current use of insulin (HCC) (Primary Dx); Hypertensive heart disease without heart failure; Essential hypertension, benign; Abdominal aortic aneurysm (AAA) without rupture, unspecified part ([facility]); Atherosclerosis of common carotid artery; Coronary artery 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 rich plaque; Stenosis of left carotid artery; CKD (chronic kidney disease) stage 4, GFR 15-29 ml/min ([facility]); Gout of multiple sites, unspecified cause, unspecified chronicity; Pure hypercholesterolemia; Arthritis, multiple joint involvement Start: 08-05-2022 Telephone encounter Samson rodriguez DO Work Phone: [facility] Comment on above: Orders Start: 07-28-2022 End: 07-28-2022 Patient encounter procedure Jocelin Lange PA-C Work Phone: [facility] Comment on above: Bronchitis (Primary Dx) Start: 06-10-2022 Refill Samson irizarry DO Work Phone: [facility] Comment on above: Refill Request Start: 04-22-2022 Refill Samson irizarry DO Work Phone: [facility] Comment on above: Refill Request Start: 03-23-2022 End: 03-23-2022 Patient encounter procedure Samson Ragsdale DO Work Phone: [facility] Comment on above: Controlled type 2 di abetes mellitus without complication, without long-term current use of insulin (HCC) (Primary Dx); Essential hypertension, benign; Hypertensive heart disease without heart failure; CKD (chronic kidney disease) stage 4, GFR 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/min (HCC); Gout of multiple sites, unspecified cause, unspecified chronicity; Arthritis, multiple joint involvement; History of prostate cancer; Other iron deficiency anemia Start: 01-13-2022 Refill Samson irizarry DO Work Phone: [facility] Comment on above: Refill Request Start: 12-04-2021 Telephone encounter Samson rodriguez DO Work Phone: [facility] Comment on above: Blood Pressure Start: 11-25-2021 End: 11-25-2021 Subsequent hospital visit by physician [facility] Work Phone: Radiology Comment on above: Cough [R05.9] Start: 09-18-2020 End: 09-18-2020 Subsequent hospital visit by physician X[facility] Work Phone: Radiology Comment on above: Cough [R05] Start: 06-09-2020 End: 06-09-2020 Subsequent hospital visit by physician X[facility] Work Phone: Radiology Comment on above: Pain of left scapula [M89.8X1] Procedures Date Procedure Procedure Detail Performing Clinician Start: 01-09-2025 Radiologic exam chest 2 views Khloe crow APRN.DOLPHIN RESEARCHER Work Phone: Start: 05-23-2024 Gluc bld gluc mntr dev cleared fda spec home use Cristin Nieves MD Work Phone: Start: 05-23-2024 Inf agent det nucleic acid clostridium amp probe Malu Mendoza MD Work Phone: Start: 05-23-2024 Colonoscopy flx dx w/collj spec when pfrmd Cristela Andersen APRN.DOLPHIN RESEARCHER Work Phone: Start: 05-23-2024 Esophagogastroduodenoscopy transoral diagnostic Cristela Andersen APRN.DOLPHIN RESEARCHER Work Phone: Start: 05-23-2024 Ecg routine ecg w/least 12 lds i&r only Colt Rice MD Work Phone: Start: 05-23-2024 Gluc bld gluc mntr dev cleared fda spec home use Cristin Nieves MD Work Phone: Start: 05-09-2023 Myocardial spect multiple studies Samson Ragsdale DO Work Phone: Start: 03-23-2023 Radex spine lumbosacral 2/3 views Samson Ragsdale DO Work Phone: Start: 03-23-2023 Radiologic exam chest 2 views Samson rodriguez DO Work Phone: Start: 03-23-2022 Adult depression screening assessment Samson Ragsdale DO Work Phone: Start: 11-25-2021 Radiologic exam chest 2 views Jenny Kylie ggs SERVICE PARTS COORDINATOR.DOLPHIN RESEARCHER Work Phone: Start: 12-01-2020 Adult depression screening assessment Samson Ragsdale DO Work Phone: Start: 09-18-2020 Radiologic exam chest 2 views Theron Herrera MD Work Phone: Start: 06-09-2020 Radex spine cervical 4 or 5 views Samson Ragsdale DO Work Phone: Start: 02-06-2019 H/O: surgery History of prostatectomy Samson Ragsdale DO Work Phone: Start: 06-27-2017 End: 06-27-2017 LEVI Sanchez MD Work Phone: Start: 06-27-2017 End: 06-27-2017 Follow Up Appt 3 months Rich Sanchez MD Work Phone: Start: 04-21-2017 End: 04-21-2017 LEVI Sanchez MD Work Phone: Start: 04-21-2017 End: 04-21-2017 Follow Up Appt 3 months Rich Sanchez MD Work Phone: Start: 04-07-2017 End: 04-07-2017 Nurse, Teaching, Wound Check (no charge) Rich Sanchez MD Work Phone: Start: 04-05-2017 End: 06-27-2017 Referral to glove boarder Rich Sanchez MD Work Phone: Start: 03-30-2017 End: 06-27-2017 *Hepatic Function Panel Rich Sanchez MD Work Phone: Start: 03-30-2017 End: 06-27-2017 Lipid 1996 panel - Serum or Plasma Krzysztof Sanchez MD Work Phone: Start: 03-23-2017 End: 03-24-2017 *BMP Dustin Garcia SCIENTIST Work Phone: Start: 03-23-2017 End: 03-24-2017 aPTT in Platelet poor plasma by Coagulation assay Dustin Garcia SCIENTIST Work Phone: Start: 03-23-2017 End: 03-24-2017 CBC W Auto Differential panel - Blood Dustin Garcia SCIENTIST Work Phone: Start: 03-23-2017 End: 03-24-2017 INR in Platelet poor plasma by Coagulation assay Dustin Garcia SCIENTIST Work Phone: Start: 03-23-2017 End: 04-15-2017 Left Heart Cath W/Grafts Dustin Garcia SCIENTIST Work Phone: Start: 03-07-2017 End: 03-08-2017 Natriuretic peptide B [Mass/volume] in Blood Dustin Garcia SCIENTIST Work Phone: Start: 03-07-2017 End: 04-15-2017 Stress Echocardiogram (treadmill) Dustin Garcia SCIENTIST Work Phone: Start: 02-25-2017 End: 04-15-2017 Ecg routine ecg w/least 12 lds w/i&r Pat Greenfield PA-C Work Phone: Start: 02-16-2017 End: 02-16-2017 *BMP Rich Sanchez MD Work Phone: Start: 02-16-2017 End: 02-16-2017 *CBC with Differential Rcih Sanchez MD Work Phone: Start: 02-16-2017 End: 02-25-2017 Chest x-ray Rich Sanchez MD Work Phone: Start: 01-25-2017 End: 04-15-2017 Xtrnl mobile cv telemetry w/i&report 30 days Pat Greenfield PA-C Work Phone: Start: 01-18-2017 End: 01-18-2017 DJN Pat Greenfield PA-C Work Phone: Start: 01-18-2017 End: 01-18-2017 Ecg routine ecg w/least 12 lds w/i&r Pat Greenfield PA-C Work Phone: Start: 01-18-2017 End: 01-18-2017 Follow Up Appt 3 months Pat Greenfield PA-C Work Phone: Start: 01-18-2017 End: 01-19-2017 Referral to glove boarder Pat Greenfield PA-C Work Phone: Start: 12-31-2016 End: 01-03-2017 *BMP Pat Greenfield PA-C Work Phone: Start: 12-31-2016 End: 01-03-2017 Natriuretic peptide B [Mass/volume] in Blood Pat Greenfield PA-C Work Phone: Start: 12-31-2016 End: 12-31-2016 Nurse, Teaching, Wound Check (no charge) Rich Sanchez MD Work Phone: Adenoid excision DUSTIN GOODMAN MD Carotid endarterectomy DUSTIN MIJARES MD Coronary artery bypass graft UDSTIN MIJARES MD Percutaneous translu jay coronary angioplasty PTCA - Percutaneous transluminal coronary angioplasty DUSTIN MIJARES MD Tonsillectomy DUSTIN MIJARES MD Plan of Treatment Date Care Activity Detail Author Start: 05-02-2033 Urine microalbumin profile DTaP,Tdap,Td Vaccine (3 - Td or Tdap) [facility] Start: 09-26-2025 Covid-19 Vaccine ( season) Covid-19 Vaccine ( season) [facility] Comment on above: Postponed from 04/01/2024 (Declined at t his time) Start: 09-17-2025 Hepatitis B surface antibody level LDL Cholesterol [facility] Start: 04-02-2025 End: 04-02-2025 Patient encounter procedure 04/02/2025 2:40 PM EDT Office Visit Family [facility] [address] [place], [place] [id number] Samson Ragsdale DO [address] [place], [place] [id number] 6 month follow up Family [facility] Comment on above: 6 month follow up Start: 04-01-2025 Influenza vaccination Influenza Vaccine (Season Ended) [facility] Start: 03-26-2025 End: 06-25-2025 25-hydroxyvitamin D3 [Mass/volume] in Serum or Plasma VITAMIN D 25 HYDROXY Lab Routine Vitamin D deficiency Expected: 03/26/2025, Expires: 06/25/2025 [facility] Comment on above: Expected: 03/26/2025, Expires: Start: 03-26-2025 End: 06-25-2025 CBC panel - Blood by Automated count COMPLETE BLOOD COUNT Lab Routine 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, with long-term current use of insulin (HCC) Expected: 03/26/2025, Expires: 06/25/2025 [facility] Comment on above: Expected: 03/26/2025, Expires: Start: 03-26-2025 End: 06-25-2025 Comprehensive metabolic 2000 panel - Serum or Plasma COMPREHENSIVE METABOLIC PANEL Lab Routine 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, with long-term current use of insulin (HCC) Expected: 03/26/2025, Expires: 06/25/2025 [facility] Comment on above: Expected: 03/26/2025, Expires: Start: 03-26-2025 End: 06-25-2025 Hemoglobin A1c in Blood HEMOGLOBIN A1C Lab Routine 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, with long-term current use of insulin (HCC) Expected: 03/26/2025, Expires: 06/25/2025 [facility] Work Phone: Comment on above: Expected: 03/26/2025, Expires: Start: 03-26-2025 End: 06-25-2025 Iron and Iron binding capacity panel - Serum or Plasma IRON AND TIBC Lab Routine 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, with long-term current use of insulin (HCC) Expected: 03/26/2025, Expires: 06/25/2025 [facility] Comment on above: Expected: 03/26/2025, Expires: Start: 03-26-2025 End: 06-25-2025 Lipid 1996 panel - Serum or Plasma LIPID PANEL BASIC Lab Routine Pure hypercholesterolemia Expected: 03/26/2025, Expires: 06/25/2025 [facility] Comment on above: Expected: 03/26/2025, Expires: Start: 03-26-2025 End: 06-25-2025 Magnesium [Mass/volume] in Serum or Plasma MAGNESIUM Lab Routine 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, with long-term current use of insulin (HCC) Expected: 03/26/2025, Expires: 06/25/2025 [facility] Comment on above: Expected: 03/26/2025, Expires: Start: 03-26-2025 End: 06-25-2025 Microalbumin/Creatinine [Mass Ratio] in Urine ALBUMIN/CREATININE RATIO, URINE Lab Routine 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, with long-term current use of insulin (HCC) Expected: 03/26/2025, Expires: 06/25/2025 [facility] Comment on above: Expected: 03/26/2025, Expires: Start: 03-19-2025 Hepatitis B surface antibody level LDL Cholesterol [facility] Start: 03-17-2025 Hemoglobin A1c measurement HbA1C [facility] Start: 01-28-2025 Influenza vaccination Influenza Vaccine (#1) [facility] Comment on above: Postponed from 04/01/2024 (Declined at t his time) Start: 09-26-2024 End: 09-26-2024 Patient encounter procedure 09/26/2024 2:20 PM EST Office Visit [facility] [place] [address] [place] [address] Samson Ragsdale DO [address] [place], [place] [address] [facility] [place] Comment on above: Physical Start: 09-26-2024 Covid-19 Vaccine () Covid-19 Vaccine () [facility] Comment on above: Postponed from 04/01/2023 (Declined at t his time) Start: 09-23-2024 Hepatitis B surface antibody level LDL Cholesterol [facility] Start: 09-19-2024 Hemoglobin A1c measurement HbA1C [facility] Start: 09-17-2024 End: 12-17-2024 Comprehensive metabolic 2000 panel - Serum or Plasma [facility] Work Phone: Comment on above: Expected: 09/17/2024, Expires: Start: 09-17-2024 End: 12-17-2024 Hemoglobin A1c in Blood [facility] Comment on above: Expected: 09/17/2024, Expires: Start: 09-17-2024 End: 12-17-2024 Lipid 1996 panel - Serum or Plasma [facility] Comment on above: Expected: 09/17/2024, Expires: 5 Start: 09-17-2024 End: 12-17-2024 PSA/PROSTATE SPECIFIC ANTIGEN SCREENING [facility] Comment on above: Expected: 09/17/2024, Expires: Start: 05-31-2024 End: 05-31-2024 Patient encounter procedure 05/31/2024 2:00 PM EDT Office Visit General Surgery [address] [place] [address] Cristela Andersen APRN.DOLPHIN RESEARCHER [address] [place], [place] [id number] 05-23 EGD & colon follow up General Surgery Comment on above: 05-23 EGD & colon follow up Start: 05-23-2024 End: 05-23-2024 Patient encounter procedure 05/23/2024 3:00 PM EDT Appointment [facility] [address] [place] [address] Malu Mendoza MD [address] [place] [id number] colon/egd [facility] Comment on above: colon/egd Start: 05-09-2024 End: 05-09-2024 Anesthesia consultation 05/09/2024 1:40 PM EDT PAT Pre Anesthesia [address] [place] [address] 1, Pacc [place] [address] [place] [address] egd colonoscopy unable to do virtual Pre Anesthesia Comment on above: egd colonoscopy unable to do virtual Start: 04-13-2024 End: 04-13-2024 Patient encounter procedure General Surg jenn Comment on above: Chronic diarrhea [K52.9] Chronic diarrhea, ge neralized abdominal pain Start: 04-01-2024 Covid-19 Vaccine ( season) Covid-19 Vaccine ( season) [facility] Start: 04-01-2024 Covid-19 Vaccine ( season) Covid-19 Vaccine ( season) [facility] Start: 04-01-2024 Influenza vaccination [facility] Start: 03-26-2024 End: 03-26-2024 Patient encounter procedure 03/26/2024 3:00 PM EDT Office Visit [facility] [address] [place] [address] Samson Ragsdale DO [address] [place] [address] 6 month follow up Family [facility] [place] Comment on above: 6 month follow up Start: 03-23-2024 3 comp foot exam completed DIABETIC FOOT EXAM [facility] Start: 03-23-2024 Diabetic foot examination Diabetic Foot Exam [facility] Start: 03-23-2024 Hemoglobin A1c measurement HbA1C [facility] Start: 03-09-2024 End: 06-08-2024 CBC W Auto Differential panel - Blood COMPLETE BLOOD COUNT AND DIFFERENTIAL Lab Routine Essential hypertension, benign Expected: 03/09/2024, Expires: 06/08/2024 [facility] Comment on above: Expected: 03/09/2024, Expires: Start: 03-09-2024 End: 06-08-2024 Comprehensive metabolic 2000 panel - Serum or Plasma COMPREHENSIVE METABOLIC PANEL Lab Routine Essential hypertension, benign Expected: 03/09/2024, Expires: 06/08/2024 [facility] Comment on above: Expected: 03/09/2024, Expires: Start: 03-09-2024 End: 06-08-2024 Hemoglobin A1c in Blood HEMOGLOBIN A1C Lab Routine 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, with long-term current use of insulin (HCC) Expected: 03/09/2024, Expires: 06/08/2024 [facility] Work Phone: Comment on above: Expected: 03/09/2024, Expires: Start: 03-09-2024 End: 06-08-2024 Lipid 1996 panel - Serum or Plasma LIPID PANEL BASIC Lab Routine Essential hypertension, benign Expected: 03/09/2024, Expires: 06/08/2024 [facility] Comment on above: Expected: 03/09/2024, Expires: Start: 01-29-2024 Influenza vaccination Influenza Vaccine (#1) [facility] Comment on above: Postponed from 04/01/2023 (Declined at t his time) Start: 09-19-2023 End: 12-19-2023 CBC W Auto Differential panel - Blood CBC + DIFF Lab Routine Type 2 diabetes mellitus with stage 4 chronic kidney disease, with long-term current use of insulin (HCC) Essential hypertension, benign Expected: 09/19/2023, Expires: 12/19/2023 [facility] Work Phone: Comment on above: Expected: 09/19/2023, Expires: Start: 09-19-2023 End: 12-19-2023 Comprehensive metabolic 2000 panel - Serum or Plasma COMP METABOLIC PANEL Lab Routine Type 2 diabetes mellitus with stage 4 chronic kidney disease, with long-term current use of insulin (HCC) Essential hypertension, benign Expected: 09/19/2023, Expires: 12/19/2023 [facility] Work Phone: Comment on above: Expected: 09/19/2023, Expires: 4 Start: 09-19-2023 End: 12-19-2023 Hemoglobin A1c in Blood HGB A1C Lab Routine Type 2 diabetes mellitus with stage 4 chronic kidney disease, with long-term current use of insulin (HCC) Expected: 09/19/2023, Expires: 12/19/2023 [facility] Work Phone: Comment on above: Expected: 09/19/2023, Expires: 4 Start: 09-19-2023 End: 12-19-2023 Lipid 1996 panel - Serum or Plasma LIPID PANEL BASIC Lab Routine Type 2 diabetes mellitus with stage 4 chronic kidney disease, with long-term current use of insulin (HCC) Essential hypertension, benign Expected: 09/19/2023, Expires: 12/19/2023 [facility] Work Phone: Comment on above: Expected: 09/19/2023, Expires: Start: 09-19-2023 End: 12-19-2023 Prostate specific Ag [Mass/volume] in Serum or Plasma PSA/PROSTSPECAG DIAG Lab Routine Malignant neoplasm of prostate (HCC) History of prostate cancer Expected: 09/19/2023, Expires: 12/19/2023 [facility] Work Phone: Comment on above: Expected: 09/19/2023, Expires: 4 Start: 09-14-2023 Hemoglobin A1c measurement HbA1C [facility] Start: 09-14-2023 Hemoglobin A1c/Hemoglobin.total in Blood HBA1C [facility] Start: 09-13-2023 Hepatitis B surface antibody level LDL CHOLESTEROL [facility] Start: 08-09-2023 Glaucoma screening Dilated Retinal Exam [facility] Start: 08-09-2023 Hepatitis C antibody, confirmatory test DILATED RETINAL EXAM [facility] Start: 08-01-2023 Depression Assessment Depression Assessment [facility] Start: 04-01-2023 Covid-19 Vaccine () Covid-19 Vaccine () [facility] Start: 04-01-2023 Influenza vaccination [facility] Start: 03-23-2023 3 comp foot exam completed DIABETIC FOOT EXAM [facility] Start: 03-23-2023 Adult depression screening assessment DEPRESSION SCREENING [facility] Start: 03-23-2023 ANNUAL PCP TEAM CHRONIC DISEASE VISIT ANNUAL PCP TEAM CHRONIC DISEASE VISIT [facility] Start: 03-23-2023 BP CONTROLLED (<130/80) BP CONTROLLED (<130/80) [facility] Start: 03-16-2023 HEMOGLOBIN/HEMATOCRIT HEMOGLOBIN/HEMATOCRIT [facility] Start: 03-16-2023 SERUM CREATININE SERUM CREATININE [facility] Start: 03-13-2023 Hemoglobin A1c/Hemoglobin.total in Blood HBA1C [facility] Start: 03-11-2023 Shingrix Vaccine (3 of 3) Shingrix Vaccine (3 of 3) [facility] Start: 03-07-2023 End: 05-07-2023 CBC W Auto Differential panel - Blood CBC + DIFF Lab Routine Essential hypertension, benign CKD (chronic kidney disease) stage 4, GFR 15-29 ml/min (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, with long-term current use of insulin (HCC) Expected: 03/07/2023, Expires: 05/07/2023 [facility] Work Phone: Comment on above: Expected: 03/07/2023, Expires: 3 Start: 03-07-2023 End: 05-07-2023 Comprehensive metabolic 2000 panel - Serum or Plasma COMP METABOLIC PANEL Lab Routine Essential hypertension, benign CKD (chronic kidney disease) stage 4, GFR 15-29 ml/min (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, with long-term current use of insulin (HCC) Expected: 03/07/2023, Expires: 05/07/2023 [facility] Work Phone: Comment on above: Expected: 03/07/2023, Expires: 3 Start: 03-07-2023 End: 05-07-2023 Hemoglobin A1c in Blood HGB A1C Lab Routine 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, with long-term current use of insulin (HCC) Expected: 03/07/2023, Expires: 05/07/2023 [facility] Work Phone: Comment on above: Expected: 03/07/2023, Expires: 3 Start: 01-28-2023 Influenza vaccination INFLUENZA (#1) [facility] Comment on above: Postponed from 04/01/2022 (Declined at t his time) Start: 12-07-2022 HEMOGLOBIN/HEMATOCRIT HEMOGLOBIN/HEMATOCRIT [facility] Start: 12-07-2022 Hepatitis B surface antibody level LDL CHOLESTEROL [facility] Start: 12-07-2022 SERUM CREATININE SERUM CREATININE [facility] Start: 09-16-2022 Hemoglobin A1c/Hemoglobin.total in Blood HBA1C [facility] Start: 09-15-2022 ANNUAL PCP TEAM CHRONIC DISEASE VISIT ANNUAL PCP TEAM CHRONIC DISEASE VISIT [facility] Start: 09-09-2022 HEMOGLOBIN/HEMATOCRIT HEMOGLOBIN/HEMATOCRIT [facility] Start: 09-09-2022 Hepatitis B screening Urine Albumin:Creatinine Ratio [facility] Start: 09-09-2022 Hepatitis B surface antibody level LDL CHOLESTEROL [facility] Start: 09-09-2022 SERUM CREATININE SERUM CREATININE [facility] Start: 08-18-2022 Hepatitis C antibody, confirmatory test DILATED RETINAL EXAM [facility] Start: 08-06-2022 End: 10-06-2022 C reactive protein [Mass/volume] in Serum or Plasma C-REACTIVE PROTEIN (CRP) Lab Routine Gout of multiple sites, unspecified cause, unspecified chronicity Expected: 08/06/2022, Expires: 10/06/2022 [facility] Work Phone: Comment on above: Expected: 08/06/2022, Expires: 3 Start: 08-06-2022 End: 10-06-2022 CBC W Auto Differential panel - Blood CBC + DIFF Lab Routine Pure hypercholesterolemia Expected: 08/06/2022, Expires: 10/06/2022 [facility] Work Phone: Comment on above: Expected: 08/06/2022, Expires: Start: 08-06-2022 End: 10-06-2022 Comprehensive metabolic 2000 panel - Serum or Plasma COMP METABOLIC PANEL Lab Routine Pure hypercholesterolemia Expected: 08/06/2022, Expires: 10/06/2022 [facility] Work Phone: Comment on above: Expected: 08/06/2022, Expires: 3 Start: 08-06-2022 End: 10-06-2022 Hemoglobin A1c in Blood HGB A1C Lab Routine Controlled type 2 diabetes mellitus without complication, without long-term current use of insulin (HCC) Expected: 08/06/2022, Expires: 10/06/2022 [facility] Work Phone: Comment on above: Expected: 08/06/2022, Expires: 3 Start: 08-06-2022 End: 10-06-2022 Lipid 1996 panel - Serum or Plasma LIPID PANEL BASIC Lab Routine Pure hypercholesterolemia Expected: 08/06/2022, Expires: 10/06/2022 [facility] Work Phone: Comment on above: Expected: 08/06/2022, Expires: 3 Start: 08-06-2022 End: 10-06-2022 PSA/PROSTSPECAG SCRN PSA/PROSTSPECAG SCRN Lab Routine History of prostate cancer Screening for prostate cancer Expected: 08/06/2022, Expires: 10/06/2022 [facility] Work Phone: Comment on above: Expected: 08/06/2022, Expires: 3 Start: 08-06-2022 End: 10-06-2022 Urate [Mass/volume] in Serum or Plasma URIC ACID BLOOD Lab Routine Gout of multiple sites, unspecified cause, unspecified chronicity Expected: 08/06/2022, Expires: 10/06/2022 [facility] Work Phone: Comment on above: Expected: 08/06/2022, Expires: 3 Start: 08-01-2022 DEPRESSION ASSESSMENT DEPRESSION ASSESSMENT [facility] Start: 06-09-2022 Hemoglobin A1c/Hemoglobin.total in Blood HBA1C [facility] Start: 04-01-2022 Influenza vaccination INFLUENZA (#1) [facility] Start: 03-09-2022 Hemoglobin A1c/Hemoglobin.total in Blood HBA1C [facility] Start: 12-01-2021 Adult depression screening assessment DEPRESSION SCREENING [facility] Start: 09-09-2021 BP CONTROLLED (<130/80) BP CONTROLLED (<130/80) [facility] Start: 08-25-2021 3 comp foot exam completed DIABETIC FOOT EXAM [facility] Start: 08-01-2021 ADVANCE DIRECTIVE DISCUSSION ADVANCE DIRECTIVE DISCUSSION [facility] Start: 08-01-2021 DEPRESSION ASSESSMENT DEPRESSION ASSESSMENT [facility] Start: 03-24-2021 COVID-19 VACCINE (3 - Booster for Moderna series) COVID-19 VACCINE (3 - Booster for Moderna series) [facility] Start: 12-17-2020 COVID-19 VACCINE (3 - Booster for Moderna series) COVID-19 VACCINE (3 - Booster for Moderna series) [facility] Start: 12-17-2020 COVID-19 VACCINE (3 - Moderna series) COVID-19 VACCINE (3 - Moderna series) [facility] Start: 10-18-2017 End: 10-18-2017 Appointment Appointment [facility] Work Phone: Start: 06-27-2017 End: 06-27-2017 LEVI SIMS [facility] Work Phone: Start: 06-27-2017 End: 06-27-2017 Follow Up Appt 3 months Follow Up Appt 3 months [facility] Work Phone: Start: 06-27-2017 End: 06-27-2017 Appointment Appointment [facility] Work Phone: Start: 05-27-2017 End: 04-29-2017 CBC W Auto Differential panel - Blood *CBC [facility] Work Phone: Start: 04-21-2017 End: 04-21-2017 LEVI SIMS [facility] Work Phone: Start: 04-21-2017 End: 04-21-2017 Esophagogastroduodenoscopy transoral diagnostic EGD; diagnostic [facility] Work Phone: Start: 04-21-2017 End: 04-21-2017 Follow Up Appt 3 months Follow Up Appt 3 months [employer] Work Phone: Start: 04-21-2017 End: 04-21-2017 Pulmonary Function Test - complete Pulmonary Function Test - complete [facility] Work Phone: Start: 04-20-2017 End: 04-20-2017 Colonoscopy flx dx w/collj spec when pfrmd Colonoscopy [facility] Work Phone: Start: 04-05-2017 End: 04-05-2017 Cardiac Rehab Card[facility], [address], [place], [address] [facility] Work Phone: Start: 03-30-2017 End: 06-27-2017 *Hepatic Function Panel *Hepatic Function Panel [employer] Work Phone: Start: 03-30-2017 End: 06-27-2017 Lipid panel [AGGREGATE] *Lipid Profile CC PCP [facility] Work Phone: Start: 03-23-2017 End: 03-24-2017 *BMP *BMP [facility] Work Phone: Start: 03-23-2017 End: 03-24-2017 aPTT *PTT-Partial Thromboplastin Time [facility] Work Phone: Start: 03-23-2017 End: 03-24-2017 CBC W Auto Differential panel - Blood *CBC without Diff [facility] Work Phone: Start: 03-23-2017 End: 03-24-2017 INR Coag RelTime (PPP) *PT/INR [facility] Work Phone: Start: 03-23-2017 End: 03-23-2017 Left Heart Cath W/Grafts Left Heart Cath W/Grafts [facility] Work Phone: Start: 03-07-2017 End: 03-08-2017 BNP *Brain Natriuretic Peptide BNP [facility] Work Phone: Start: 03-07-2017 End: 03-07-2017 Stress Echocardiogram (treadmill) Stress Echocardiogram (treadmill) [facility] Work Phone: Start: 02-25-2017 End: 04-15-2017 Ecg routine ecg w/least 12 lds w/i&r EKG (In office) [facility] Work Phone: Start: 02-16-2017 End: 02-16-2017 *BMP *BMP [facility] Work Phone: Start: 02-16-2017 End: 02-16-2017 *CBC with Differential *CBC with Differential [facility] Work Phone: Start: 02-16-2017 End: 02-25-2017 Chest x-ray X-Ray, Chest, PA & Lateral [facility] Work Phone: Start: 01-25-2017 End: 01-26-2017 Xtrnl mobile cv telemetry w/i&report 30 days 30 Day Holter Monitor [facility] Work Phone: Start: 01-18-2017 End: 04-05-2017 Cardiac Rehab [facility] [address] [place], [address] [facility] Work Phone: Start: 01-18-2017 End: 01-18-2017 DJN FLORYN [facility] Work Phone: Start: 01-18-2017 End: 01-18-2017 Ecg routine ecg w/least 12 lds w/i&r EKG (In office) [facility] Work Phone: Start: 01-18-2017 End: 01-18-2017 Follow Up Appt 3 months Follow Up Appt 3 months [facility] Work Phone: Start: 12-31-2016 End: 01-03-2017 *BMP *BMP [facility] Work Phone: Start: 12-31-2016 End: 01-03-2017 BNP *Brain Natriuretic Peptide BNP [facility] Work Phone: Start: 2016 RSV Vaccine (1 - 1-dose 75+ series) RSV Vaccine (1 - 1-dose 75+ series) [facility] Start: 09-25-2012 SHINGRIX VACCINE (2 of 3) SHINGRIX VACCINE (2 of 3) [facility] Start: 08-01-2011 Urine microalbumin profile [facility] Start: 07-01-2006 Medicare Annual Wellness Visit Medicare Annual Wellnes s Visit [facility] Start: 2001 Hepatitis B Vaccine (1 of 3 - Risk 3-dose series) Hepatitis B Vaccine (1 of 3 - Risk 3-dose series) [facility] Start: 2001 RSV Vaccine (1 - 1-dose 60+ series) RSV Vaccine (1 - 1-dose 60+ series) [facility] Clostridioides diffi cile toxin genes [Presence] in Stool by CHANTAL with probe detection C. DIFFICILE PCR Lab Routine Diarrhea, unspecified type Ordered: 09/26/2023 [facility] Work Phone: Comment on above: Ordered: 09/26/2023 Clostridioides diffi cile toxin genes [Presence] in Stool by CHANTAL with probe detection C. DIFFICILE PCR Lab Routine Chronic diarrhea Generalized abdominal pain Ordered: 03/26/2024 [facility] Comment on above: Ordered: 03/26/2024 End: 03-23-2024 ECG COMPLETE ECG COMPLETE ECG Routine SOB (shortness of breath) Coronary artery 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 rich plaque Chest pain on breathing 1 Occurrences starting 03/23/2023 until 03/23/2024 [facility] Work Phone: Comment on above: 1 Occurrences starting 03/23/2023 until 03/23/2024 End: 03-23-2024 Echocardiography ECHO Cardiology Routine SOB (shortness of breath) Coronary artery 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 rich plaque Chest pain on breathing 1 Occurrences starting 03/23/2023 until 03/23/2024 [facility] Work Phone: Comment on above: 1 Occurrences starting 03/23/2023 until 03/23/2024 End: 04-16-2025 EGD DIAGNOSTIC EGD DIAGNOSTIC Endoscopy Routine Generalized abdominal pain Gastroesophageal reflux disease without esophagitis 1 Occurrences starting 04/16/2024 until 04/16/2025 [facility] Comment on above: 1 Occurrences starting 04/16/2024 until 04/16/2025 ENTERIC BACTERIAL PANEL BY PCR E NTERIC BACTERIAL PANEL BY PCR Lab Routine Diarrhea, unspecified type Ordered: 09/26/2023 [facility] Work Phone: Comment on above: Ordered: 09/26/2023 ENTERIC BACTERIAL PANEL BY PCR E NTERIC BACTERIAL PANEL BY PCR Lab Routine Chronic diarrhea Generalized abdominal pain Ordered: 03/26/2024 [facility] Comment on above: Ordered: 03/26/2024 ENTERIC BACTERIAL PANEL BY PCR [facility] Comment on above: Release Upon Ordering for 1 Occurrences starting 05/23/2024 End: 04-16-2025 Flexible sigmoidoscopy study COLONOSCOPY DIAGNOSTIC Endoscopy Routine Chronic diarrhea Generalized abdominal pain 1 Occurrences starting 04/16/2024 until 04/16/2025 [facility] Work Phone: Comment on above: 1 Occurrences starting 04/16/2024 until 04/16/2025 Giardia lamblia+Cryp tosporidium sp Ag [Presence] in Stool by Immunoassay CRYPTOSPORIDIUM AND GIARDIA ANTIGENS BY EIA Microbiology Routine Chronic diarrhea Generalized abdominal pain Ordered: 03/26/2024 [facility] Comment on above: Ordered: 03/26/2024 Giardia lamblia+Cryp tosporidium sp Ag [Presence] in Stool by Immunoassay [facility] Comment on above: Release Upon Ordering for 1 Occurrences starting 05/23/2024 Helicobacter pylori Ag [Presence] in Stool by Immunoassay H PYLORI AG BY EIA,STOOL Microbiology Routine Diarrhea, unspecified type Ordered: 09/26/2023 [facility] Work Phone: Comment on above: Ordered: 09/26/2023 End: 04-21-2024 NM CARDIAC PERF STRESS/PHARM NM CARDIAC PERF STRESS/PHARM Radiology Routine SOB (shortness of breath) Coronary artery 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 rich plaque Chest pain on breathing 1 Occurrences starting 03/23/2023 until 04/21/2024 [facility] Work Phone: Comment on above: 1 Occurrences starting 03/23/2023 until 04/21/2024 PANC ELASTASE, FECAL PANC ELASTA SE, FECAL Lab Routine Chronic diarrhea Generalized abdominal pain Ordered: 03/26/2024 [facility] Work Phone: Comment on above: Ordered: 03/26/2024 PANC ELASTASE, FECAL [facility] Comment on above: Release Upon Ordering for 1 Occurrences starting 05/23/2024 Patient Education HYPERLIPIDEMIA [facility] Work Phone: End: 04-21-2024 Radex spine lumbosacral 2/3 views XR LUMBAR GENERAL 3V AP/LAT/L5-S1 Radiology Routine 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 1 Occurrences starting 03/23/2023 until 04/21/2024 [facility] Work Phone: Comment on above: 1 Occurrences starting 03/23/2023 until 04/21/2024 Radex spine lumbosac ral 2/3 views XR LUMBAR GENERAL 3V AP/LAT/L5-S1 Radiology Routine 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 03/23/2023 4:42 PM EDT [facility] Work Phone: End: 04-21-2024 Radiologic exam chest 2 views XR CHEST 2V FRONTAL/LAT Radiology Routine SOB (shortness of breath) Coronary artery 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 rich plaque Chest pain on breathing 1 Occurrences starting 03/23/2023 until 04/21/2024 [facility] Work Phone: Comment on above: 1 Occurrences starting 03/23/2023 until 04/21/2024 Radiologic exam chest 2 views XR CHEST 2V FRONTAL/LAT Radiology Routine SOB (shortness of breath) Coronary artery 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 rich plaque Chest pain on breathing 03/23/2023 4:41 PM EDT [facility] Work Phone: SURGICAL PATHOLOGY [facility] Work Phone: Comment on above: Release Upon Ordering for 1 Occurrences starting 05/23/2024, 1 completed End: 09-22-2023 US ABD AORTA COMPLETE VAS LAB US ABD AORTA COMPLETE VA S LAB Vascular Lab Routine Hypertensive heart disease without heart failure Essential hypertension, benign Abdominal aortic aneurysm (AAA) without rupture, unspecified part (HCC) Atherosclerosis of common carotid artery Coronary artery 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 rich plaque 1 Occurrences starting 09/22/2022 until 09/22/2023 [facility] Work Phone: Comment on above: 1 Occurrences starting 09/22/2022 until 09/22/2023 End: 05-31-2024 US ABD AORTA COMPLETE VAS LAB US ABD AORTA COMPLETE VA S LAB Vascular Lab Routine Infrarenal abdominal aortic aneurysm (AAA) without rupture (HCC) 1 Occurrences starting 05/31/2023 until 05/31/2024 [facility] Work Phone: Comment on above: 1 Occurrences starting 05/31/2023 until 05/31/2024 End: 10-03-2024 US Abdominal Aorta US ABD AORTA COMPLETE VAS LAB Vascular Lab Routine Infrarenal abdominal aortic aneurysm (AAA) without rupture (HCC) 1 Occurrences starting 10/04/2023 until 10/03/2024 [facility] Work Phone: Comment on above: 1 Occurrences starting 10/04/2023 until 10/03/2024 End: 10-03-2024 US Carotid arteries - bilateral US CAROTID ARTERIES BI L VAS LAB Vascular Lab Routine Bilateral carotid artery stenosis 1 Occurrences starting 10/04/2023 until 10/03/2024 [facility] Work Phone: Comment on above: 1 Occurrences starting 10/04/2023 until 10/03/2024 End: 09-22-2023 US CAROTID ARTERIES MELISSA VAS LAB US CAROTID ARTERIES BI L VAS LAB Vascular Lab Routine Hypertensive heart disease without heart failure Essential hypertension, benign Abdominal aortic aneurysm (AAA) without rupture, unspecified part (HCC) Atherosclerosis of common carotid artery Coronary artery 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 rich plaque Stenosis of left carotid artery 1 Occurrences starting 09/22/2022 until 09/22/2023 [facility] Work Phone: Comment on above: 1 Occurrences starting 09/22/2022 until 09/22/2023 End: 05-31-2024 US CAROTID ARTERIES MELISSA VAS LAB US CAROTID ARTERIES BI L VAS LAB Vascular Lab Routine Bilateral carotid artery stenosis 1 Occurrences starting 05/31/2023 until 05/31/2024 [facility] Work Phone: Comment on above: 1 Occurrences starting 05/31/2023 until 05/31/2024 End: 04-21-2024 XR KNEE GENERAL 4V AP BOTH/PA BOTH/LAT/MERC BILATERAL XR KNEE GENERAL 4V AP BOTH/PA BOTH/LAT/MERC BILATERAL Radiology Routine Bilateral chronic knee pain 1 Occurrences starting 03/23/2023 until 04/21/2024 [facility] Work Phone: Comment on above: 1 Occurrences starting 03/23/2023 until 04/21/2024 XR KNEE GENERAL 4V A P BOTH/PA BOTH/LAT/MERC BILATERAL XR KNEE GENERAL 4V AP BOTH/PA BOTH/LAT/MERC BILATERAL Radiology Routine Bilateral chronic knee pain 03/23/2023 4:42 PM EDT [facility] Work Phone: End: 12-26-2025 XR Shoulder - left 3 Views XR SHOULDER GENERAL 3V OR MORE AP/TRUE AP/OTHER LEFT Radiology Routine Acute pain of both shoulders 1 Occurrences starting 11/26/2024 until 12/26/2025 [facility] Work Phone: Comment on above: 1 Occurrences starting 11/26/2024 until 12/26/2025 XR Shoulder - left 3 Views XR SH OULDER GENERAL 3V OR MORE AP/TRUE AP/OTHER LEFT Radiology Routine Acute pain of both shoulders 11/26/2024 3:50 PM EDT [facility] End: 12-26-2025 XR Shoulder - right 3 Views XR SHOULDER GENERAL 3V OR MORE AP/TRUE AP/OTHER RIGHT Radiology Routine Acute pain of both shoulders 1 Occurrences starting 11/26/2024 until 12/26/2025 [facility] Comment on above: 1 Occurrences starting 11/26/2024 until 12/26/2025 XR Shoulder - right 3 Views XR S HOULDER GENERAL 3V OR MORE AP/TRUE AP/OTHER RIGHT Radiology Routine Acute pain of both shoulders 11/26/2024 3:50 PM EDT [facility] End: 12-26-2025 XR Thoracic spine AP and Lateral and Swimmers XR THORACIC GENERAL 3V AP/LAT/SWIMMERS Radiology Routine Upper back pain 1 Occurrences starting 11/26/2024 until 12/26/2025 [facility] Comment on above: 1 Occurrences starting 11/26/2024 until 12/26/2025 XR Thoracic spine AP and Lateral and Swimmers XR THORACIC GENERAL 3V AP/LAT/SWIMMERS Radiology Routine Upper back pain 11/26/2024 3:50 PM EDT [facility] Immunizations Immunization Date Immunization Notes Care Provider Fa angelito 05-02-2023 tetanus toxoid, redu berta diphtheria toxoid, and acellular pertussis vaccine, adsorbed DUSTIN MIJARES MD [facility] 01-14-2023 zoster vaccine recombinant DUSTIN MIJARES MD [facility] 04-01-2022 influenza virus vacc ine, unspecified formulation Nurse Wstr Work Phone: [facility] 06-16-2021 influenza virus vacc ine, unspecified formulation DUSTIN MIJARES MD [facility] 06-16-2021 influenza, high-dose , quadrivalent vaccine (FLUZONE HIGH DOSE QUADRIVALENT) Samson Ragsdale DO Work Phone: [facility] Work Phone: 10-22-2020 COVID-19 vaccine, fu ll dose (MODERNA) Samson Ragsdale DO Work Phone: [facility] Work Phone: 09-24-2020 COVID-19 vaccine, fu ll dose (MODERNA) Samson Ragsdale DO Work Phone: [facility] Work Phone: Comment on above: Result Comment: 2022: [id number] 05-09-2020 influenza virus vacc ine, unspecified formulation DUSTIN MIJARES MD [facility] 05-09-2020 influenza, high dose seasonal, preservative-free Samson Ragsdale DO Work Phone: [facility] Work Phone: 08-27-2019 influenza virus vacc ine, unspecified formulation DUSTIN MIJARES MD [facility] 08-27-2019 influenza, high dose seasonal, preservative-free Samson Ragsdale DO Work Phone: [facility] Work Phone: 05-01-2018 influenza virus vacc ine, unspecified formulation DUSTIN MIJARES MD [facility] 05-01-2018 influenza, high dose seasonal, preservative-free Samson Ragsdale DO Work Phone: [facility] Work Phone: 05-18-2017 influenza virus vacc ine, unspecified formulation DUSTIN MIJARES MD [facility] 05-18-2017 influenza, high dose seasonal, preservative-free Samson Ragsdale DO Work Phone: [facility] Work Phone: 07-28-2016 influenza virus vacc ine, unspecified formulation DUSTIN MIJARES MD [facility] 07-28-2016 influenza, high dose seasonal, preservative-free Samson Ragsdale DO Work Phone: [facility] Work Phone: 09-02-2015 pneumococcal conjuga te vaccine, 13 valent Samson Ragsdale DO Work Phone: [facility] Work Phone: 06-02-2015 influenza virus vacc ine, unspecified formulation DUSTIN MIJARES MD [facility] 06-02-2015 influenza, high dose seasonal, preservative-free Samson Ragsdale DO Work Phone: [facility] Work Phone: 06-02-2015 pneumococcal polysaccharide vaccine, 23 valent Samson Ragsdale DO Work Phone: [facility] Work Phone: 05-23-2014 influenza virus vacc ine, unspecified formulation DUSTIN MIJARES MD [facility] 05-23-2014 influenza, seasonal, injectable Samson Ragsdale DO Work Phone: [facility] 07-13-2013 influenza virus vacc ine, unspecified formulation Samson Ragsdale DO Work Phone: [facility] 07-31-2012 zoster vaccine, live Samson Ragsdale DO Work Phone: [facility] 05-26-2009 influenza virus vacc ine, unspecified formulation Samson Ragsdale DO Work Phone: [facility] Work Phone: 05-18-2008 influenza virus vacc ine, unspecified formulation Samson Ragsdale DO Work Phone: [facility] 01-27-2008 pneumococcal polysaccharide vaccine, 23 valent DUSTIN MIJARES MD [facility] Comment on above: Reason for Medicatio n: Other (see order comments) 06-20-2004 pneumococcal polysaccharide vaccine, 23 valent Samson Ragsdale DO Work Phone: [facility] Work Phone: 03-18-2004 adenovirus, type 4 a nd type 7, live, oral DUSTIN MIJARES MD [facility] 03-18-2004 hepatitis A vaccine, adult dosage DUSTIN MIJARES MD [facility] 03-18-2004 poliovirus vaccine, inactivated DUSTIN MIJARES MD [facility] 08-01-2001 diphtheria and tetan us toxoids, adsorbed for pediatric use Samson Ragsdale DO Work Phone: [facility] Work Phone: 07-03-1999 pneumococcal polysaccharide vaccine, 23 valent Samson Ragsdale DO Work Phone: [facility] Payers Date Payer Category Payer Self-pay 2023 Medicare [id number] 2016 Medicare MEDICARE MEDICAR E A AND B [id number] 2016-Present [phone] [place] [address] Medicare [id number] 2015 Private Health Insurance HUMANA HUMANA MEDICARE SUPPLEMENT [id number] 2015-Present [phone] [address] [address] [place] [address] Indemnity [id number] 2015 Private Health Insurance [id number] 2015 Private Health Insurance [id number] 2006 Medicare [id number] 2006 Medicare [id number] 1940 Unknown [id number] Unknown [id number] Social History Date Type Detail Facility Start: 09-29-2020 End: 07-28-2022 Tobacco smoking status NHIS Ex-smoker [facility] Comment on above: quit 1987 History of tobacco use Cigarette Smoker C [facility] History of tobacco use Pipe Smoker [facility] History of tobacco use Cigar Smoker [facility] Start: 11-25-2021 End: 01-09-2025 Alcohol intake Current drinker of alcohol (finding) [facility] Start: 1940 Sex Assigned At Not on file C [facility] Start: 05-10-2020 End: 03-23-2022 Exposure to SARS-CoV-2 (event) Not sure [facility] Work Phone: History of tobacco use Current smoker [facility] Start: 07-28-2022 End: 03-23-2023 Cigarettes smoked current (pack per day) - Reported 2 [facility] Work Phone: Start: 07-28-2022 Tobacco use and exposure Smokeless tobacco non-user [facility] Start: 07-28-2022 Tobacco Comment quit in 1987 [facility] Start: 11-30-2022 End: 03-23-2023 Tobacco use panel [facility] Work Phone: Adult Depression Screening Assessment 0 [facility] Work Phone: Sex Assigned At Sex [facility] Medical Equipment Procedure Code Equipment Code Equipment Original Text Equipment Identifier Dates [id number], [id number], [id number], [id number], [id number] Start: 06-27-2017 End: 10-25-2024 Comment on above: Use once daily to te st blood sugar in the morning 1 Strip three times daily. Test blood sugar(s)3 times daily. Dx: Type 2 DM - Uncontrolled, E11.65 Insulin: Yes Use once daily with Lantus as directed Use as instructed DM2, controlled. Use once daily to test blood sugar in the morning Test blood sugar(s) 1 times daily. Dx: Type 2 DM - Controlled E11.9 Insulin: Yes Test blood sugar(s) 2 times daily. Dx: Type 2 DM - Controlled E11.9 Insulin: Yes Functional Status Date Assessment Result Facility 05-28-2023 Functional Status Ambulation in [facility] 05-28-2023 Functional Status Room check performed [facility] 05-28-[address] [facility] 05-28-[address] [facility] 05-27-[address] [facility] 05-27-[address] [facility] 05-27-[address] [facility] 05-26-2023 Functional Status Patient refused [facility] 05-26-2023 Functional Status Nurse Milagros trotter q2hrs Performed 11am-11pm [facility] 05-26-2023 [address] [facility] 05-25-[address] [facility] 05-24-2023 Functional Status Sensory Deficits None A [facility] 12-05-2014 Are you deaf, or do you have serious difficulty hearing No 12/05/2014 8:14 AM Stephanie Kern MA No [facility] 12-05-2014 Are you blind, or do you have serious difficulty seeing, even when wearing glasses No 12/05/2014 8:14 AM Stephanie Kern MA No [facility] 12-05-2014 Do you have serious difficulty walking or climbing stairs No 12/05/2014 8:14 AM EDT Stephanie Hayes MA No [facility] 12-05-2014 Do you have difficul ty dressing or bathing No 12/05/2014 8:14 AM PRAKASHT Stephanie Hayes MA No [facility] 12-05-2014 Because of a physica l, mental, or emotional condition, do you have difficulty doing errands alone such as visiting a physician's office or shopping No 12/05/2014 8:14 AM EDT Stephanie Hayes MA No [facility] Mental Status Date Assessment Result Facility 05-28-2023 Mental Status Orientation Oriented x 4 [facility] 05-28-2023 [facility]23 Mental Status [facility] 05-27-2023 Mental Status Orientation Asse ssment Oriented x 4 [facility] 05-27-2023 [facility]23 Mental Status [facility] 12-05-2014 Because of a physica l, mental, or emotional condition, do you have serious difficulty concentrating, remembering, or making decisions No 12/05/2014 8:14 AM PRAKASHT Stephanie Hayes MA No [facility] Clinical Notes 08-28-2019 to 01-09-2025 Khloe Ibarra APRN.CNP - 01/09/2025 3:01 PM Jennifer Green RT(R) - 01/09/2025 2:30 PM Mary Shen MA - 12/10/2024 12:50 PM Miya Best RT(R) - 11/26/2024 3:40 PM EDT Note Date & Type Note Facility 01-09-2025 Note HNO ID: [id number] Author: KHLOE IBARRA APRN.JAIRON Service: ? Author Type: Nurse Practitioner Type: Progress Notes Filed: 01/09/2025 16:53 Note Text: [facility] Subjective Abraham Gage is a 84 year old male. Patient presents with: Cough: Cough, chest congestion and SOB x 10 days Cough Associated symptoms include rhinorrhea. Pertinent negatives include no chest pain, no chills, no shortness of breath and no wheezing. Patient is a pleasant 84 year old male that presents with cough, chest congestion and shortness of breath. 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 Mild lower leg swelling but denies that this is more than his usual. Denies any chest pain, or heaviness elephant sitting on chest. Review of Systems Constitutional: Negative for activity change, appetite change, chills, fatigue and fever. HENT: Positive for congestion, rhinorrhea, sinus pressure and sinus pain. Respiratory: Positive for cough. Negative for shortness of breath and wheezing. Cardiovascular: Negative for chest pain and palpitations. Objective BP 132/72 Pulse 64 Temp 36.2 ?C (97.2 ?F) (Tympanic) Resp 18 Wt 74.8 kg (164 lb 14.5 oz) SpO2 95% BMI 25.07 kg/m? 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 09/2015 4.15 cm Acute gastritis without mention of hemorrhage 04/26/2017 EGD by [facility] Advance care planning 03/24/2022 [facility] can help with medical decision making AMI (acute myocardial infarction) (HCC) 07/03/2013 Carotid atherosclerosis 05/2014 CKD stage G3b/A2, GFR 30-44 and albumin creatinine ratio 30-299 mg/g (HCC) AVOID NEPHROTOXIC MEDICATIONS Diabetes mellitus type 2, uncontrolled, without complications Diaphragmatic hernia without mention of obstruction or gangrene Diverticulosis of colon (without mention of hemorrhage) 04/26/2017 colonoscopy by [facility] Esophagitis Generalized osteoarthrosis, unspecified site Internal hemorrhoid 04/26/2017 colonoscopy by [facility] Iron deficiency anemia Malignant neoplasm of prostate (HCC) Other and unspecified hyperlipidemia Unspecified cardiovascular disease 1994 CABG Unspecified constipation 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 Nolan Triana EGD 05/23/2024 EGD TRANSORAL BIOPSY SINGLE/MULTIPLE 07/10/2007 PAST SURGICAL HISTORY OF 01/26/2008 stent placement ramus and prox ramus PAST SURGICAL HISTORY OF heart stents PROSTATECTOMY PERINEAL RADICAL 2000 Prostatectomy, radical- Dr. 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 Yousif Triana; next screening colonoscopy in 10yrs, [facility] UNLISTED DIAGNOSTIC GASTROENTEROLOGY PROCEDURE 06/06/2018 ALLERGIES Atorvastatin, Crestor [Rosuvastatin Calcium], Glucosamine, Motrin [Ibuprofen], Pravastatin, and Ajdcoqb-Ors-Kva Reductase Inhibitors MEDICATIONS zinc sulfate (ZINC-15 ORAL) Take 1 tablet by mouth once daily. blood sugar diagnostic (TRUE METRIX GLUCOSE TEST STRIP) test strip Use with blood glucose test three times a day. Insulin Dep? Yes DX E11.9 amLODIPine (NORVASC) 10 mg tablet Take 1 tablet by mouth once daily. In the evening losartan (COZAAR) 50 mg tablet Take 0.5 tablets by mouth once daily. carvedilol (COREG) 25 mg tablet Take 1 tablet by mouth two times a day. isosorbide mononitrate ER (IMDUR) 30 mg 24 hr tablet Take 1 tablet by mouth once daily. clopidogrel (PLAVIX) 75 mg tablet Take 1 tablet by mouth once daily. allopurinol (ZYLOPRIM) 100 mg tablet Take 1 tablet by mouth once daily. insulin glargine (BASAGLAR KWIKPEN U-100 INSULIN) 100 unit/mL (3 mL) Inject 10 Units subcutaneously daily at bedtime. Insulin Kerby, Disposable, (BD ULTRA-FINE BENNY PEN NEEDLE) 32 gauge x 5/32 Use once daily with Lantus as directed diclofenac sodium (VOLTAREN) 1 % topical gel Apply 2 g to affected area four times daily. flaxseed oil (OMEGA 3 ORAL) Take by mouth. hydrocortisone 2.5 % cream Apply 1 application to affected area twice daily. Location: face cetirizine HCl (ZYRTEC) 10 mg chewable tablet Take 10 mg by mouth once daily. cholecalciferol (VITAMIN D3) 5,000 unit tab Take 5,000 Units by mouth twice daily. Blood-Glucose Meter (FREESTYLE LITE METER) monitoring kit 1 Each as directed. Lancets lancets Use as instructed furosemide (LASIX) 40 mg tablet Take 1 tablet by mouth once daily. potassium chloride ( (more content not included)... [facility] 01-09-2025 History of Present illness Narrative [facility] Subjective Abraham Gage is a 84 year old male. Patient presents with: Cough: Cough, chest congestion and SOB x 10 days Cough Associated symptoms include rhinorrhea. Pertinent negatives include no chest pain, no chills, no shortness of breath and no wheezing. Patient is a pleasant 84 year old male that presents with cough, chest congestion and shortness of breath. 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 Mild lower leg swelling but denies that this is more than his usual. Denies any chest pain, or heaviness elephant sitting on chest. Review of Systems Constitutional: Negative for activity change, appetite change, chills, fatigue and fever. HENT: Positive for congestion, rhinorrhea, sinus pressure and sinus pain. Respiratory: Positive for cough. Negative for shortness of breath and wheezing. Cardiovascular: Negative for chest pain and palpitations. Objective BP 132/72 Pulse 64 Temp 36.2 C (97.2 F) (Tympanic) Resp 18 Wt 74.8 kg (164 lb 14.5 oz) SpO2 95% BMI 25.07 kg/m 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 09/2015 4.15 cm Acute gastritis without mention of hemorrhage 04/26/2017 [facility] Advance care planning 03/24/2022 [facility] can help with medical decision making AMI (acute myocardial infarction) (HCC) 07/03/2013 Carotid atherosclerosis 05/2014 CKD stage G3b/A2, GFR 30-44 and albumin creatinine ratio 30-299 mg/g (HCC) AVOID NEPHROTOXIC MEDICATIONS Diabetes mellitus type 2, uncontrolled, without complications Diaphragmatic hernia without mention of obstruction or gangrene Diverticulosis of colon (without mention of hemorrhage) 04/26/2017 colonoscopy by [facility] Esophagitis Generalized osteoarthrosis, unspecified site Internal hemorrhoid 04/26/2017 colonoscopy by [facility] Iron deficiency anemia Malignant neoplasm of prostate (HCC) Other and unspecified hyperlipidemia Unspecified cardiovascular disease 1994 CABG Unspecified constipation 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 Nolan Triana EGD 05/23/2024 EGD TRANSORAL BIOPSY SINGLE/MULTIPLE 07/10/2007 PAST SURGICAL HISTORY OF 01/26/2008 stent placement ramus and prox ramus PAST SURGICAL HISTORY OF heart stents PROSTATECTOMY PERINEAL RADICAL 2000 Prostatectomy, radical- Dr. 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 Yousif Triana; next screening colonoscopy in 10yrs, [facility] UNLISTED DIAGNOSTIC GASTROENTEROLOGY PROCEDURE 06/06/2018 ALLERGIES Atorvastatin, Crestor [Rosuvastatin Calcium], Glucosamine, Motrin [Ibuprofen], Pravastatin, and Dijdbnf-Oso-Joj Reductase Inhibitors MEDICATIONS zinc sulfate (ZINC-15 ORAL) Take 1 tablet by mouth once daily. blood sugar diagnostic (TRUE METRIX GLUCOSE TEST STRIP) test strip Use with blood glucose test three times a day. Insulin Dep? Yes DX E11.9 amLODIPine (NORVASC) 10 mg tablet Take 1 tablet by mouth once daily. In the evening losartan (COZAAR) 50 mg tablet Take 0.5 tablets by mouth once daily. carvedilol (COREG) 25 mg tablet Take 1 tablet by mouth two times a day. isosorbide mononitrate ER (IMDUR) 30 mg 24 hr tablet Take 1 tablet by mouth once daily. clopidogrel (PLAVIX) 75 mg tablet Take 1 tablet by mouth once daily. allopurinol (ZYLOPRIM) 100 mg tablet Take 1 tablet by mouth once daily. insulin glargine (BASAGLAR KWIKPEN U-100 INSULIN) 100 unit/mL (3 mL) Inject 10 Units subcutaneously daily at bedtime. Insulin Kerby, Disposable, (BD ULTRA-FINE BENNY PEN NEEDLE) 32 gauge x 5/32 Use once daily with Lantus as directed diclofenac sodium (VOLTAREN) 1 % topical gel Apply 2 g to affected area four times daily. flaxseed oil (OMEGA 3 ORAL) Take by mouth. hydrocortisone 2.5 % cream Apply 1 application to affected area twice daily. Location: face cetirizine HCl (ZYRTEC) 10 mg chewable tablet Take 10 mg by mouth once daily. cholecalciferol (VITAMIN D3) 5,000 unit tab Take 5,000 Units by mouth twice daily. Blood-Glucose Meter (FREESTYLE LITE METER) monitoring kit 1 Each as directed. Lancets lancets Use as instructed furosemide (LASIX) 40 mg tablet Take 1 tablet by mouth once daily. potassium chloride (KLOR-CON 10) 10 mEq tablet Take 1 tablet by mouth once daily. CHOLECALCIFEROL, VITAMIN D3, (VITAMIN D3 ORAL) Take 600 mg by mouth once daily. coenzyme Q10 (COENZYME Q-10) 100 mg cap capsule Take 1 capsule by mouth. CALTRATE-600 PLUS VITAMIN D3 600 MG-200 UNIT ORAL TAB TAKE TWO TABLETS DAILY. doxycycline (VIBRA-TABS) 100 mg tablet Take 1 tablet by mouth two times a day for 7 days. triamcinolone acetonide (NASACORT ALLERGY) 55 mcg nasal inhaler Use 2 sprays in each nostril once daily. ferrous sulfate 325 mg (65 mg iron) tablet Take 325 mg by mouth two times a day. Taking 1 every other day (Patient not taking: Reported on 01/09/2025) triamcinolone acetonide (KENALOG) 0.1 % cream Apply 1 application to affected area twice daily as needed (rash). Apply sparingly to area for rash/itching. (Patient not taking: Reported on 01/09/2025) FAMILY HISTORY Problem Relation Age of Onset Hypertension Father COPD Father Heart Mother Social History Tobacco Use Smoking status: Former Current packs/day: 2.00 Average packs/day: 2.0 packs/day for 20.0 years (40.0 ttl pk-yrs) Types: Cigarettes, Pipe, Cigars Smokeless tobacco: Never Tobacco comments: quit in 1987 Vaping Use Vaping status: Never Used Substance Use Topics Alcohol use: Yes Comment: rarely Drug use: No Physical Exam Constitutional: Appearance: Normal appearance. HENT: Nose: Congestion present. Right Sinus: Maxillary sinus tenderness present. Left Sinus: Maxillary sinus tenderness present. Mouth/Throat: Pharynx: Uvula midline. Posterior oropharyngeal erythema and postnasal drip present. No oropharyngeal exudate. Cardiovascular: Rate and Rhythm: Normal rate and regular rhythm. Pulses: Normal pulses. Heart sounds: Normal heart sounds. Pulmonary: Effort: Pulmonary effort is normal. Breath sounds: Normal breath sounds and air entry. No decreased breath sounds, wheezing or rhonchi. Musculoskeletal: Cervical back: Normal range of motion. Right lower le+ Edema present. Left lower le+ Edema present. Lymphadenopathy: Cervical: No cervical adenopathy. Neurological: Mental Status: He is alert. {ASSESSMENT/PLAN: 1. Acute cough - ICD9: 786.2, ICD10: R05.1 (primary diagnosis) - Follow up with cardiology this week, ER if worsening. - XR CHEST 2V FRONTAL/LAT 2. Acute non-recurrent maxillary sinusitis - ICD9: 461.0, ICD10: J01.00 - Will begin treatment with Doxycycline - Supportive care with plenty of fluids, rest, and analgesia prn. - Follow up in one day if symptoms persist or worsen. - Dalia Ibarra APRN.DOLPHIN RESEARCHER MDM Patient well appearing nontoxic in no acute respiratory distress 84 year old male. He presents with acute sinusitis; chest xray negative for pneumonia. No concerns for acute cardiopulmonary process today, no chest pain or heaviness in clinic. Mild bilateral edema which per patient is his baseline, he did start taking lasix this am. Discussed follow up with cardiology this week ER if worsening patient verbalized understanding and in agreement with plan. Patient discharged home. documented in this encounter [facility] 01-09-2025 History of Present illness Narrative Radiology Service Progress Note PATIENT NAME: Abraham Gage DATE OF SERVICE: January 09, 2025 TIME: 2:26 PM PATIENT IDENTITY VERIFICATION COMPLETED USING TWO (2) IDENTIFIERS: Name and Date of confirmed by patient verbally. FALL SCREENING: Has the patient had 2 falls in the last year or 1 fall with injury or currently using an Ambulatory Assistive Device (Walker, Cane, Wheelchair, Crutches, etc.)? No PATIENT GENDER DATA: Assigned male at PATIENT RELEVANT IMPLANT DATA REVIEWED: Yes PATIENT PRESENTS WITH AN IMPLANTABLE OR ATTACHED FINISH MACHINE TENDER: No RADIOLOGY DEPARTMENT: General X-ray: Exam(s) Completed: Chest X-Ray PERIPHERAL IV DATA: Not applicable SIGNED BY: WOOD Berkowitz) January 09, 2025 2:26 PM documented in this encounter [facility] 01-09-2025 Note HNO ID: [id number] Author: JENNIFER CANO RT(R) Service: ? Author Type: Technologist Type: Progress Notes Filed: 01/09/2025 14:36 Note Text: Radiology Service Progress Note PATIENT NAME: Abraham Gage DATE OF SERVICE: January 09, 2025 TIME: 2:26 PM PATIENT IDENTITY VERIFICATION COMPLETED USING TWO (2) IDENTIFIERS: Name and Date of confirmed by patient verbally. FALL SCREENING: Has the patient had 2 falls in the last year or 1 fall with injury or currently using an Ambulatory Assistive Device (Walker, Cane, Wheelchair, Crutches, etc.)? No PATIENT GENDER DATA: Assigned male at PATIENT RELEVANT IMPLANT DATA REVIEWED: Yes PATIENT PRESENTS WITH AN IMPLANTABLE OR ATTACHED FINISH MACHINE TENDER: No RADIOLOGY DEPARTMENT: General X-ray: Exam(s) Completed: Chest X-Ray PERIPHERAL IV DATA: Not applicable SIGNED BY: WOOD Berkowitz) January 09, 2025 2:26 PM [facility] 12-10-2024 Note HNO ID: [id number] Author: MARY ROSS MA Service: ? Author Type: Nuclear Monitoring Technician Type: Progress Notes Filed: 12/10/2024 13:12 Note Text: POPULATION HEALTH NAVIGATION OUTREACH Action/FYI Updated appointment notes HCC closure Topic Due (Y or N) Comments Medicare Wellness y PCP Follow up Colorectal Cancer Screening Controlling Blood Pressure A1C HCC y Flu Vaccine Care Everywhere Reviewed MyChart Activation Updated Appointment Note y Reason for Outreach Care Gap/HCC or Scheduling Wellness Visits Care Gaps due: Medicare Annual Wellness Visit Patient Contacted: Unable or unnecessary to reach patient: HCC related Patient already scheduled Updated appointment notes Navigation Signature: Mary Ross MA December 10, 2024 12:51 PM [facility] 12-10-2024 History of Present illness Narrative POPULATION HEALTH NAVIGATION OUTREACH Action/FYI Updated appointment notes HCC closure Topic Due (Y or N) Comments Medicare Wellness y PCP Follow up Colorectal Cancer Screening Controlling Blood Pressure A1C HCC y Flu Vaccine Care Everywhere Reviewed MyChart Activation Updated Appointment Note y Reason for Outreach Care Gap/HCC or Scheduling Wellness Visits Care Gaps due: Medicare Annual Wellness Visit Patient Contacted: Unable or unnecessary to reach patient: HCC related Patient already scheduled Updated appointment notes Navigation Signature: Mary Ross MA December 10, 2024 12:51 PM documented in this encounter [facility] 12-10-2024 Note Patient Outreach (NE TNAV) ABRAHAM GAGE ([id number]) 1940 M Date Time Provider Department 12/10/24 MARY ROSS NETNAV During your visit today, we recorded the following information about you: Mary Ross MA 12/10/2024 1:12 PM Signed POPULATION HEALTH NAVIGATION OUTREACH Action/FYI Updated appointment notes HCC closure Topic Due (Y or N) Comments Medicare Wellness y PCP Follow up Colorectal Cancer Screening Controlling Blood Pressure A1C HCC y Flu Vaccine Care Everywhere Reviewed MyChart Activation Updated Appointment Note y Reason for Outreach Care Gap/HCC or Scheduling Wellness Visits Care Gaps due: Medicare Annual Wellness Visit Patient Contacted: Unable or unnecessary to reach patient: HCC related Patient already scheduled Updated appointment notes Navigation Signature: Mary Ross MA December 10, 2024 12:51 PM Allergies As of Date: 12/10/2024 Noted Allergy Reaction ATORVASTATIN 10/18/2017 16 - Unknown CRESTOR (ROSUVASTATIN CALCIUM) 04/24/2013 14 - Other: See Comments Comments: Muscle pain GLUCOSAMINE 06/27/2017 16 - Unknown Comments: Nerve pain MOTRIN (IBUPROFEN) 01/19/2006 2 - Rash PRAVASTATIN 02/19/2013 14 - Other: See Comments Comments: muscle aches [id number] REDUCTASE INHIBIT*10/09/2014 14 - Other: See Comments Comments: myalgia Date Reviewed: 11/26/2024 Reviewed by: Mariaelena Culp LPN - Fully Assessed Reason for Visit: Population Health Navigation Outreach [3910] Cmt: [employer] YAN PCSA Prescriptions as of 12/10/2024 - zinc sulfate (ZINC-15 ORAL) Take 1 tablet by mouth once daily. - predniSONE (DELTASONE) 10 mg tablet Take 4 tabs daily x5 days, then 2 tabs daily for 5 days, then 1 tab daily for 5 days. - blood sugar diagnostic (TRUE METRIX GLUCOSE TEST STRIP) test strip Use with blood glucose test three times a day. Insulin Dep? Yes DX E11.9 - amLODIPine (NORVASC) 10 mg tablet Take 1 tablet by mouth once daily. In the evening - losartan (COZAAR) 50 mg tablet Take 0.5 tablets by mouth once daily. - carvedilol (COREG) 25 mg tablet Take 1 tablet by mouth two times a day. - isosorbide mononitrate ER (IMDUR) 30 mg 24 hr tablet Take 1 tablet by mouth once daily. - clopidogrel (PLAVIX) 75 mg tablet Take 1 tablet by mouth once daily. - allopurinol (ZYLOPRIM) 100 mg tablet Take 1 tablet by mouth once daily. - insulin glargine (BASAGLAR KWIKPEN U-100 INSULIN) 100 unit/mL (3 mL) Inject 10 Units subcutaneously daily at bedtime. - Insulin Kerby, Disposable, (BD ULTRA-FINE BENNY PEN NEEDLE) 32 gauge x 32 Use once daily with Lantus as directed - diclofenac sodium (VOLTAREN) 1 % topical gel Apply 2 g to affected area four times daily. - flaxseed oil (OMEGA 3 ORAL) Take by mouth. - hydrocortisone 2.5 % cream Apply 1 application to affected area twice daily. Location: face - ferrous sulfate 325 mg (65 mg iron) tablet Take 325 mg by mouth two times a day. Taking 1 every other day - cetirizine HCl (ZYRTEC) 10 mg chewable tablet Take 10 mg by mouth once daily. - cholecalciferol (VITAMIN D3) 5,000 unit tab Take 5,000 Units by mouth twice daily. - Blood-Glucose Meter (FREESTYLE LITE METER) monitoring kit 1 Each as directed. - Lancets lancets Use as instructed - furosemide (LASIX) 40 mg tablet Take 1 tablet by mouth once daily. - potassium chloride (KLOR-CON 10) 10 mEq tablet Take 1 tablet by mouth once daily. - triamcinolone acetonide (KENALOG) 0.1 % cream Apply 1 application to affected area twice daily as needed (rash). Apply sparingly to area for rash/itching. - CHOLECALCIFEROL, VITAMIN D3, (VITAMIN D3 ORAL) Take 600 mg by mouth once daily. - coenzyme Q10 (COENZYME Q-10) 100 mg cap capsule Take 1 capsule by mouth. - CALTRATE-600 PLUS VITAMIN D3 600 MG-200 UNIT ORAL TAB TAKE TWO TABLETS DAILY. Meds Comments as of 02/29/2008: Antiplatelet drugs (eg, ticlopidine, clopidogrel (plavix), aspirin, abciximab, dipyridamole, eptifibatide, tirofiban): May increase risk of bleeding when taken with diclfenac. Beta-blockers(metoprolol): NSAIDs (diclofenac) may decrease the antihypertensive effect of beta-blockers; monitor carefully Problem List As Of Date 12/10/2024 Noted Resolved GENERAL OSTEOARTHROSIS [M15.9] Diaphragmatic hernia [K44.9] Unspecified cardiovascular disease [I25.10] 09/20/2022 Pure hypercholesterolemia [E78.00] History of prostate cancer [Z85.46] Hypertensive kidney disease with chronic kidney* Abdominal aneurysm without mention of rupture [* 06/05/2020 TENOSYNOV HAND/WRIST NEC [M65.849, M65.839] 06/09/2005 CARPAL TUNNEL SYNDROME [G56.00] 07/02/2005 BENIGN HYPERTENSION [I10] 10/21/2006 Unspecified constipation [K59.00] 05/11/2007 06/05/2020 Dyspepsia and other specified disorders of func*05/11/2007 06/05/2020 Acute gastritis without mention of hemorrhage [*1 (more content not included)... [facility] 11-26-2024 History of Present illness Narrative Radiology Service Progress Note PATIENT NAME: Abraham Gage DATE OF SERVICE: November 26, 2024 TIME: 3:32 PM PATIENT IDENTITY VERIFICATION COMPLETED USING TWO (2) IDENTIFIERS: Name and Date of confirmed by patient verbally. FALL SCREENING: Has the patient had 2 falls in the last year or 1 fall with injury or currently using an Ambulatory Assistive Device (Walker, Cane, Wheelchair, Crutches, etc.)? No PATIENT GENDER DATA: Assigned male at PATIENT RELEVANT IMPLANT DATA REVIEWED: Yes PATIENT PRESENTS WITH AN IMPLANTABLE OR ATTACHED FINISH MACHINE TENDER: No RADIOLOGY DEPARTMENT: General X-ray: Exam(s) Completed: Spine X-Ray(s): Thoracic Upper Extremity X-Ray(s): Shoulder, AP / TRUE AP / AXILLARY bilateral PERIPHERAL IV DATA: Not applicable SIGNED BY: RT Galileo(Yousif) November 26, 2024 3:32 PM documented in this encounter [facility] 11-26-2024 Note HNO ID: [id number] Author: MIYA WOODSON RT(R) Service: ? Author Type: Outdoor Advertising Leasing Agent Type: Progress Notes Filed: 11/26/2024 15:48 Note Text: Radiology Service Progress Note PATIENT NAME: Abraham Gage DATE OF SERVICE: November 26, 2024 TIME: 3:32 PM PATIENT IDENTITY VERIFICATION COMPLETED USING TWO (2) IDENTIFIERS: Name and Date of confirmed by patient verbally. FALL SCREENING: Has the patient had 2 falls in the last year or 1 fall with injury or currently using an Ambulatory Assistive Device (Walker, Cane, Wheelchair, Crutches, etc.)? No PATIENT GENDER DATA: Assigned male at PATIENT RELEVANT IMPLANT DATA REVIEWED: Yes PATIENT PRESENTS WITH AN IMPLANTABLE OR ATTACHED FINISH MACHINE TENDER: No RADIOLOGY DEPARTMENT: General X-ray: Exam(s) Completed: Spine X-Ray(s): Thoracic Upper Extremity X-Ray(s): Shoulder, AP / TRUE AP / AXILLARY bilateral PERIPHERAL IV DATA: Not applicable SIGNED BY: RT Galileo(Yousif) November 26, 2024 3:32 PM [facility] 11-26-2024 Note HNO ID: [id number] Author: THEODORA HERNANDEZ APRN.JAIRON Service: ? Author Type: Nurse Practitioner Type: Progress Notes Filed: 11/26/2024 15:43 Note Text: CC: Patient presents with: Pain: in right shoulder for about 6 weeks denies any injury HPI Recording using [employer] software for draft documentation of the visit was discussed with the patient/authorized applications sales representative; all questions welcomed and answered. Patient/authorized applications sales representative agreed to proceed Abraham is a 84-year-old male with a history of diabetes mellitus, presenting with bilateral shoulder pain, predominantly on the right side. Abraham reports a 6-8 week history of bilateral shoulder pain, with the right shoulder being more affected. The pain is described as sharp and is localized to the posterior shoulder and scapular area. The pain is exacerbated at night, particularly when lying on the right side or raising the arm. He notes difficulty sleeping due to the pain and has been taking hydrocodone 5/325 mg, which provides some relief. He denies any history of strenuous activity or heavy lifting preceding the onset of pain. He also denies any previous episodes of similar shoulder pain. Abraham reports occasional grinding sensations in the shoulders but denies any new crepitus or popping noises. He also denies any feelings of shoulder instability or weakness. He experiences chronic neck pain with grinding sensations when turning his head but denies any new neck pain. He reports chronic tingling in the hands, which predates the shoulder pain. He denies any new musculoskeletal pain, chest pain, dyspnea, cough, fever, chills, or fatigue since the onset of shoulder pain. 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 09/2015 4.15 cm Acute gastritis without mention of hemorrhage 04/26/2017 EGD by [facility] care planning 03/24/2022 [facility] can help with medical decision making AMI (acute myocardial infarction) (HCC) 07/03/2013 Carotid atherosclerosis 05/2014 CKD stage G3b/A2, GFR 30-44 and albumin creatinine ratio 30-299 mg/g (HCC) AVOID NEPHROTOXIC MEDICATIONS Diabetes mellitus type 2, uncontrolled, without complications Diaphragmatic hernia without mention of obstruction or gangrene Diverticulosis of colon (without mention of hemorrhage) 04/26/2017 colonoscopy by [facility] Esophagitis Generalized osteoarthrosis, unspecified site Internal hemorrhoid 04/26/2017 colonoscopy by [facility] Iron deficiency anemia Malignant neoplasm of prostate (HCC) Other and unspecified hyperlipidemia Unspecified cardiovascular disease 1994 CABG Unspecified constipation 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 Nolan Triana EGD 05/23/2024 EGD TRANSORAL BIOPSY SINGLE/MULTIPLE 07/10/2007 PAST SURGICAL HISTORY OF 01/26/2008 stent placement ramus and prox ramus PAST SURGICAL HISTORY OF heart stents PROSTATECTOMY PERINEAL RADICAL 1999 Prostatectomy, radical- Dr. 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 Yousif Triana; next screening colonoscopy in 10yrs, [facility] UNLISTED DIAGNOSTIC GASTROENTEROLOGY PROCEDURE 06/06/2018 ALLERGIES Atorvastatin, Crestor [Rosuvastatin Calcium], Glucosamine, Motrin [Ibuprofen], Pravastatin, and Dnackbs-Lcr-Oqa Reductase Inhibitors MEDICATIONS amLODIPine (NORVASC) 10 mg tablet Take 1 tablet by mouth once daily. In the evening losartan (COZAAR) 50 mg tablet Take 0.5 tablets by mouth once daily. carvedilol (COREG) 25 mg tablet Take 1 tablet by mouth two times a day. isosorbide mononitrate ER (IMDUR) 30 mg 24 hr tablet Take 1 tablet by mouth once daily. clopidogrel (PLAVIX) 75 mg tablet Take 1 tablet by mouth once daily. allopurinol (ZYLOPRIM) 100 mg tablet Take 1 tablet by mouth once daily. insulin glargine (BASAGLAR KWIKPEN U-100 INSULIN) 100 unit/mL (3 mL) Inject 10 Units subcutaneously daily at bedtime. diclofenac sodium (VOLTAREN) 1 % topical gel Apply 2 g to affected area four times daily. flaxseed oil (OMEGA 3 ORAL) Take by mouth. hydrocortisone 2.5 % cream Apply 1 application to affected area twice daily. Location: face cetirizine HCl (ZYRTEC) 10 mg chewable tablet Take 10 mg by mouth once daily. cholecalciferol (VITAMIN D3) 5,000 unit tab Take 5,000 Units by mouth twice daily. furosemide (LASIX) 40 mg tablet Take 1 tablet by mouth once daily. (more content not included)... [facility] 11-26-2024 History of Present illness Narrative CC: Patient presents with: Pain: in right shoulder for about 6 weeks denies any injury HPI Recording using [place] software for draft documentation of the visit was discussed with the patient/authorized applications sales representative; all questions welcomed and answered. Patient/authorized applications sales representative agreed to proceed Abraham is a 84-year-old male with a history of diabetes mellitus, presenting with bilateral shoulder pain, predominantly on the right side. Abraham reports a 6-8 week history of bilateral shoulder pain, with the right shoulder being more affected. The pain is described as sharp and is localized to the posterior shoulder and scapular area. The pain is exacerbated at night, particularly when lying on the right side or raising the arm. He notes difficulty sleeping due to the pain and has been taking hydrocodone 5/325 mg, which provides some relief. He denies any history of strenuous activity or heavy lifting preceding the onset of pain. He also denies any previous episodes of similar shoulder pain. Abraham reports occasional grinding sensations in the shoulders but denies any new crepitus or popping noises. He also denies any feelings of shoulder instability or weakness. He experiences chronic neck pain with grinding sensations when turning his head but denies any new neck pain. He reports chronic tingling in the hands, which predates the shoulder pain. He denies any new musculoskeletal pain, chest pain, dyspnea, cough, fever, chills, or fatigue since the onset of shoulder pain. 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 09/2015 4.15 cm Acute gastritis without mention of hemorrhage 04/26/2017 EGD by [facility] Advance care planning 03/24/2022 [facility] can help with medical decision making AMI (acute myocardial infarction) (HCC) 07/03/2013 Carotid atherosclerosis 05/2014 CKD stage G3b/A2, GFR 30-44 and albumin creatinine ratio 30-299 mg/g (HCC) AVOID NEPHROTOXIC MEDICATIONS Diabetes mellitus type 2, uncontrolled, without complications Diaphragmatic hernia without mention of obstruction or gangrene Diverticulosis of colon (without mention of hemorrhage) 04/26/2017 colonoscopy by [facility] Esophagitis Generalized osteoarthrosis, unspecified site Internal hemorrhoid 04/26/2017 colonoscopy by [facility] Iron deficiency anemia Malignant neoplasm of prostate (HCC) Other and unspecified hyperlipidemia Unspecified cardiovascular disease 1994 CABG Unspecified constipation 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 Nolan Triana EGD 05/23/2024 EGD TRANSORAL BIOPSY SINGLE/MULTIPLE 07/10/2007 PAST SURGICAL HISTORY OF 01/26/2008 stent placement ramus and prox ramus PAST SURGICAL HISTORY OF heart stents PROSTATECTOMY PERINEAL RADICAL 2000 Prostatectomy, radical- Dr. 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 Yousif Triana; next screening [facility] in 10yrs, [facility] [place] UNLISTED DIAGNOSTIC GASTROENTEROLOGY PROCEDURE 06/06/2018 ALLERGIES Atorvastatin, Crestor [Rosuvastatin Calcium], Glucosamine, Motrin [Ibuprofen], Pravastatin, and Itlpccx-Ajc-Gek Reductase Inhibitors MEDICATIONS amLODIPine (NORVASC) 10 mg tablet Take 1 tablet by mouth once daily. In the evening losartan (COZAAR) 50 mg tablet Take 0.5 tablets by mouth once daily. carvedilol (COREG) 25 mg tablet Take 1 tablet by mouth two times a day. isosorbide mononitrate ER (IMDUR) 30 mg 24 hr tablet Take 1 tablet by mouth once daily. clopidogrel (PLAVIX) 75 mg tablet Take 1 tablet by mouth once daily. allopurinol (ZYLOPRIM) 100 mg tablet Take 1 tablet by mouth once daily. insulin glargine (BASAGLAR KWIKPEN U-100 INSULIN) 100 unit/mL (3 mL) Inject 10 Units subcutaneously daily at bedtime. diclofenac sodium (VOLTAREN) 1 % topical gel Apply 2 g to affected area four times daily. flaxseed oil (OMEGA 3 ORAL) Take by mouth. hydrocortisone 2.5 % cream Apply 1 application to affected area twice daily. Location: face cetirizine HCl (ZYRTEC) 10 mg chewable tablet Take 10 mg by mouth once daily. cholecalciferol (VITAMIN D3) 5,000 unit tab Take 5,000 Units by mouth twice daily. furosemide (LASIX) 40 mg tablet Take 1 tablet by mouth once daily. potassium chloride (KLOR-CON 10) 10 mEq tablet Take 1 tablet by mouth once daily. coenzyme Q10 (COENZYME Q-10) 100 mg cap capsule Take 1 capsule by mouth. CALTRATE-600 PLUS VITAMIN D3 600 MG-200 UNIT ORAL TAB TAKE TWO TABLETS DAILY. zinc sulfate (ZINC-15 ORAL) Take 1 tablet by mouth once daily. predniSONE (DELTASONE) 10 mg tablet Take 4 tabs daily x5 days, then 2 tabs daily for 5 days, then 1 tab daily for 5 days. HYDROcodone-acetaminophen (NORCO) 5-325 mg per tablet Take 1 tablet by mouth two times a day as needed for pain for up to 7 days. blood sugar diagnostic (TRUE METRIX GLUCOSE TEST STRIP) test strip Use with blood glucose test three times a day. Insulin Dep? Yes DX E11.9 Insulin Kerby, Disposable, (BD ULTRA-FINE BENNY PEN NEEDLE) 32 gauge x 5/32 Use once daily with Lantus as directed ferrous sulfate 325 mg (65 mg iron) tablet Take 325 mg by mouth two times a day. Taking 1 every other day (Patient not taking: Reported on 11/26/2024) Blood-Glucose Meter (FREESTYLE LITE METER) monitoring kit 1 Each as directed. Lancets lancets Use as instructed triamcinolone acetonide (KENALOG) 0.1 % cream Apply 1 application to affected area twice daily as needed (rash). Apply sparingly to area for rash/itching. (Patient not taking: Reported on 11/26/2024) CHOLECALCIFEROL, VITAMIN D3, (VITAMIN D3 ORAL) Take 600 mg by mouth once daily. FAMILY HISTORY Problem Relation Age of Onset Hypertension Father COPD Father Heart Mother Social History Tobacco Use Smoking status: Former Current packs/day: 2.00 Average packs/day: 2.0 packs/day for 20.0 years (40.0 ttl pk-yrs) Types: Cigarettes, Pipe, Cigars Smokeless tobacco: Never Tobacco comments: quit in 1987 Vaping Use Vaping status: Never Used Substance Use Topics Alcohol use: Yes Comment: rarely Drug use: No BP 120/60 Pulse 62 Wt 76.7 kg (169 lb 1.5 oz) SpO2 97% BMI 25.71 kg/m Physical Exam Vitals reviewed. Constitutional: Appearance: Normal appearance. Cardiovascular: Rate and Rhythm: Normal rate and regular rhythm. Pulmonary: Effort: Pulmonary effort is normal. Breath sounds: Normal breath sounds. Musculoskeletal: Right shoulder: Tenderness (scaupla) present. No swelling, deformity or crepitus. Normal range of motion. Normal strength. Normal pulse. Left shoulder: No swelling, deformity, bony tenderness or crepitus. Normal range of motion. Normal strength. Normal pulse. Thoracic back: Tenderness (paraspinal) present. No swelling, deformity or spasms. Normal range of motion. Comments: Bilateral shoulders- negative drop arm, Zhong, and Neer Neurological: Mental Status: He is alert. Assessment/Plan 1. Upper back pain (M54.9) Acute pain of both shoulders (M25.511) Sharp pain localized to the scapular region, worse at night and with certain movements. No history of similar pain. No recent trauma or heavy lifting reported. Physical exam reveals pain with certain shoulder movements, particularly on the right side. Differential includes musculoskeletal inflammation or arthritis. - Ordered X-rays of the upper back and shoulders to evaluate for any structural abnormalities. - Initiated Prednisone to reduce inflammation; advised patient of potential increase in blood glucose levels. - Prescribed additional Hydrocodone for severe pain management; instructed patient on potential side effects including drowsiness and advised against operating heavy machinery. - Recommended use of heat or ice and topical analgesics like Icy Hot or Biofreeze for symptomatic relief. - Will discuss X-ray results with Dr. Ragsdale once available. 2. Type 2 diabetes mellitus without complication, with long-term current use of insulin (HCC) (E11.9) Blood glucose levels reportedly well-controlled with insulin therapy; recent reading of 101 mg/dL. - Continue current insulin regimen. - Monitor blood glucose levels closely, especially during Prednisone treatment. Prescription instructions reviewed with patient as applicable. Potential red flag symptoms discussed with the patient. Reviewed appropriate action plan to take if red flag symptoms occur. Patient agreeable to treatment plan. Theodora Hernandez APRN.DOLPHIN RESEARCHER documented in this encounter [facility] 11-26-2024 Instructions Theodora Hernandez APRN.DOLPHIN RESEARCHER - 11/26/2024 3:26 PM EDT We discussed your shoulder pain: - You have been experiencing sharp pain in your right shoulder, primarily in the shoulder blade area, for the past 6-8 weeks. The pain is worse at night, especially when lying on your right side or raising your arm. - I performed a physical exam, which showed some pain with certain movements of your right arm but no significant weakness or other concerning findings. - I suspect the pain may be due to inflammation or arthritis in the muscles around your shoulder blade or spine. We discussed your treatment plan: - I have ordered X-rays of your upper back and shoulders to evaluate for any concerning findings. Once the results are available, I will review them and discuss them with Dr. Ragsdale. - I recommend starting a short course of prednisone (a steroid) to help reduce inflammation and provide relief. Please note that prednisone can temporarily raise your blood sugar levels, so monitor your blood sugar closely while taking it. - I will also provide a small refill of hydrocodone for severe pain. Please use this medication sparingly and only as needed. Be aware that hydrocodone can cause drowsiness, so avoid driving or operating heavy machinery while taking it. - For additional pain relief, you may use heat or ice on the affected area. Delp-tfb-guboqvl options like Icy Hot or Biofreeze may also help, though results can vary. - You can continue taking Tylenol (650 mg) as needed for mild pain. We discussed your diabetes: - Your blood sugar appears to be well-controlled, with a reading of 101 this morning. Continue monitoring your levels regularly, especially while taking prednisone. Follow-up instructions: - Once the X-ray results are available, I will contact you to discuss the findings and any further steps. - If your pain worsens, does not improve with the current treatment plan, or if you experience new symptoms such as numbness, tingling, or weakness, please contact our office. Your prescriptions for prednisone and hydrocodone have been sent to [facility] in [place]. Please let us know if you have any questions or concerns. documented in this encounter [facility] 10-25-2024 Telephone encounter Note The patient has been identified by name and date of : Yes Caregiver verified no other encounters exist for this prescription request: Yes Caregiver confirmed with patient/requestor that no other refills are due, in the near future, with this provider at this time: Yes The last office visit in the department: 09/26/2024 Does the patient have a future office visit with this provider/department: Yes 04/02/2025 Requested Prescriptions Pending Prescriptions Disp Refills blood sugar diagnostic (TRUE METRIX GLUCOSE TEST STRIP) test strip 100 Strip 11 Sig: Use with blood glucose test three times a day. Insulin Dep? Yes DX E11.9 Yeimy Arboleda LPN October 25, 2024 4:04 PM [facility] 10-25-2024 Miscellaneous Notes The patient has been identified by name and date of : Yes Caregiver verified no other encounters exist for this prescription request: Yes Caregiver confirmed with patient/requestor that no other refills are due, in the near future, with this provider at this time: Yes The last office visit in the department: 09/26/2024 Does the patient have a future office visit with this provider/department: Yes 04/02/2025 Requested Prescriptions Pending Prescriptions Disp Refills blood sugar diagnostic (TRUE METRIX GLUCOSE TEST STRIP) test strip 100 Strip 11 Sig: Use with blood glucose test three times a day. Insulin Dep? Yes DX E11.9 Yeimy Arboleda LPN October 25, 2024 4:04 PM documented in this encounter [facility] 09-26-2024 Note HNO ID: [id number] Author: SAMSON RAGSDALE, DO Service: ? Author Type: Physician Type: Progress Notes Filed: 09/26/2024 16:41 Note Text: Patient presents with: Yearly Exam HPI: Abraham Gage is a 84 year old male who presents to the office today for review of health conditions. Concerns today: States that recently his BLOOD PRESSURE readings have been taken daily in the AM and are fluctuating, some examples are 137/72, 107/68, 134/75, 145/76. Realized that he was only taking the Carvedilol once a day- not just started taking it again twice a day. Is taking his losartan and amlodipine in the AM Arthritis, stable, no recent falls CAD, taking his Plavix, no bleeding Mr. Gage has past history of diabetes. Since our last visit he denies excessive thirst or increased frequency of urination, chest pain or dyspnea , new or unusual visual symptoms, and low sugar/hypoglycemic reactions. Depression- no. Follows a diabetic diet most of the time. He is compliant with medication(s) and is tolerating med(s) without any side effects. He reports checking his glucose on a once a day schedule with sugars in the <150 range. Patient's last HgA1C was Hemoglobin A1C (%) Date Value 09/17/2024 6.3 03/19/2024 6.0 09/09/2021 6.1 06/08/2021 6.0 ) Last Ophthalmology exam was within the past 12 months Mr. Gage reports history of hyperlipidemia. Current therapy includes diet and exercise. Denies side effects of muscle weakness or achiness. His most recent lipid panels are reviewed. Cholesterol, Total (mg/dL) Date Value 09/17/2024 201 09/09/2021 246 HDL Cholesterol (mg/dL) Date Value 09/17/2024 39 09/09/2021 40 LDL Cholesterol (mg/dL) Date Value 09/17/2024 132 09/09/2021 178 Triglyceride (mg/dL) Date Value 09/17/2024 149 09/09/2021 142 Mr. Gage indicates a history of hypertension and states that he is feeling well and denies any symptoms referable to elevated blood pressure. Specifically denies headache, chest pain, palpitations, dyspnea, and peripheral edema. Patient denies any side effects of his medication(s) and is compliant with their regimen. Last 3 Encounter BP Readings: Date: BP: 09/26/2024 138/70 05/23/2024 113/56 05/23/2024 147/66 He watches his diet for sodium, low fat and low cholesterol most of the time. He does check BP's away from this office with average BP's in the 100-150/60-80s range. Abraham gets sporadic irregular exercise. 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 09/2015 4.15 cm Acute gastritis without mention of hemorrhage 04/26/2017 EGD by [facility] care planning 03/24/2022 [facility] can help with medical decision making AMI (acute myocardial infarction) (HCC) 07/03/2013 Carotid atherosclerosis 05/2014 CKD stage G3b/A2, GFR 30-44 and albumin creatinine ratio 30-299 mg/g (HCC) AVOID NEPHROTOXIC MEDICATIONS Diabetes mellitus type 2, uncontrolled, without complications Diaphragmatic hernia without mention of obstruction or gangrene Diverticulosis of colon (without mention of hemorrhage) 04/26/2017 colonoscopy by [facility] Esophagitis Generalized osteoarthrosis, unspecified site Internal hemorrhoid 04/26/2017 colonoscopy by [facility] Iron deficiency anemia Malignant neoplasm of prostate (HCC) Other and unspecified hyperlipidemia Unspecified cardiovascular disease 1994 CABG Unspecified constipation 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 Nolan Triana EGD 05/23/2024 EGD TRANSORAL BIOPSY SINGLE/MULTIPLE 07/10/2007 PAST SURGICAL HISTORY OF 01/26/2008 stent placement ramus and prox ramus PAST SURGICAL HISTORY OF heart stents PROSTATECTOMY PERINEAL RADICAL 2000 Prostatectomy, radical- Dr. 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 Yousif Triana; next screening colonoscopy in 10yrs, [facility] UNLISTED DIAGNOSTIC GASTROENTEROLOGY PROCEDURE 06/06/2018 Social History Tobacco Use Smoking status: Former Current packs/day: 2.00 Average packs/day: 2.0 packs/day for 20.0 years (40.0 ttl pk-yrs) Types: Cigarettes, Pipe, Cigars Smokeless tobacco: Never Tobacco comments: quit in 1987 Vaping Use Vaping status: Never Used Substance Use Topics Alcohol use: Yes Comment: rarely Drug use: No FAMILY HISTORY Problem Relation Age of Onset Hypertension Father COPD Father Heart Mother Allergies: (more content not included)... [facility] 09-26-2024 History of Present illness Narrative Patient presents with: Yearly Exam HPI: Abraham Gage is a 84 year old male who presents to the office today for review of health conditions. Concerns today: States that recently his BLOOD PRESSURE readings have been taken daily in the AM and are fluctuating, some examples are 137/72, 107/68, 134/75, 145/76. Realized that he was only taking the Carvedilol once a day- not just started taking it again twice a day. Is taking his losartan and amlodipine in the AM Arthritis, stable, no recent falls CAD, taking his Plavix, no bleeding Mr. Gage has past history of diabetes. Since our last visit he denies excessive thirst or increased frequency of urination, chest pain or dyspnea , new or unusual visual symptoms, and low sugar/hypoglycemic reactions. Depression- no. Follows a diabetic diet most of the time. He is compliant with medication(s) and is tolerating med(s) without any side effects. He reports checking his glucose on a once a day schedule with sugars in the <150 range. Patient's last HgA1C was Hemoglobin A1C (%) Date Value 09/17/2024 6.3 03/19/2024 6.0 09/09/2021 6.1 06/08/2021 6.0 ) Last Ophthalmology exam was within the past 12 months Mr. Gage reports history of hyperlipidemia. Current therapy includes diet and exercise. Denies side effects of muscle weakness or achiness. His most recent lipid panels are reviewed. Cholesterol, Total (mg/dL) Date Value 09/17/2024 201 09/09/2021 246 HDL Cholesterol (mg/dL) Date Value 09/17/2024 39 09/09/2021 40 LDL Cholesterol (mg/dL) Date Value 09/17/2024 132 09/09/2021 178 Triglyceride (mg/dL) Date Value 09/17/2024 149 09/09/2021 142 Mr. Gage indicates a history of hypertension and states that he is feeling well and denies any symptoms referable to elevated blood pressure. Specifically denies headache, chest pain, palpitations, dyspnea, and peripheral edema. Patient denies any side effects of his medication(s) and is compliant with their regimen. Last 3 Encounter BP Readings: Date: BP: 09/26/2024 138/70 05/23/2024 113/56 05/23/2024 147/66 He watches his diet for sodium, low fat and low cholesterol most of the time. He does check BP's away from this office with average BP's in the 100-150/60-80s range. Abraham gets sporadic irregular exercise. 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 09/2015 4.15 cm Acute gastritis without mention of hemorrhage 04/26/2017 EGD by [facility] 03/24/2022 [facility] can help with medical decision making AMI (acute myocardial infarction) (HCC) 07/03/2013 Carotid atherosclerosis 05/2014 CKD stage G3b/A2, GFR 30-44 and albumin creatinine ratio 30-299 mg/g (HCC) AVOID NEPHROTOXIC MEDICATIONS Diabetes mellitus type 2, uncontrolled, without complications Diaphragmatic hernia without mention of obstruction or gangrene Diverticulosis of colon (without mention of hemorrhage) 04/26/2017 colonoscopy by [facility] Esophagitis Generalized osteoarthrosis, unspecified site Internal hemorrhoid 04/26/2017 colonoscopy by [facility] Iron deficiency anemia Malignant neoplasm of prostate (HCC) Other and unspecified hyperlipidemia Unspecified cardiovascular disease 1994 CABG Unspecified constipation 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 Nolan Triana EGD 05/23/2024 EGD TRANSORAL BIOPSY SINGLE/MULTIPLE 07/10/2007 PAST SURGICAL HISTORY OF 01/26/2008 stent placement ramus and prox ramus PAST SURGICAL HISTORY OF heart stents PROSTATECTOMY PERINEAL RADICAL 1999 Prostatectomy, radical- Dr. 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 Yousif Triana; next screening colonoscopy in 10yrs, [facility] UNLISTED DIAGNOSTIC GASTROENTEROLOGY PROCEDURE 06/06/2018 Social History Tobacco Use Smoking status: Former Current packs/day: 2.00 Average packs/day: 2.0 packs/day for 20.0 years (40.0 ttl pk-yrs) Types: Cigarettes, Pipe, Cigars Smokeless tobacco: Never Tobacco comments: quit in 1987 Vaping Use Vaping status: Never Used Substance Use Topics Alcohol use: Yes Comment: rarely Drug use: No FAMILY HISTORY Problem Relation Age of Onset Hypertension Father COPD Father Heart Mother Allergies: ALLERGIES Allergen Reactions Atorvastatin Unknown Crestor [Rosuvastat* Other: See Comments Muscle pain Glucosamine Unknown Nerve pain Motrin [Ibuprofen] Rash Pravastatin Other: See Comments muscle aches Qdldvlh-Cbc-Wsw Red* Other: See Comments myalgia Current Meds: amLODIPine (NORVASC) 10 mg tablet Take 1 tablet by mouth once daily. In the evening losartan (COZAAR) 50 mg tablet Take 0.5 tablets by mouth once daily. isosorbide mononitrate ER (IMDUR) 30 mg 24 hr tablet Take 1 tablet by mouth once daily. clopidogrel (PLAVIX) 75 mg tablet Take 1 tablet by mouth once daily. blood sugar diagnostic (BLOOD GLUCOSE TEST) test strip Test blood sugar(s) 2 times daily. Dx: Type 2 DM - Controlled E11.9 Insulin: Yes allopurinol (ZYLOPRIM) 100 mg tablet Take 1 tablet by mouth once daily. insulin glargine (BASAGLAR KWIKPEN U-100 INSULIN) 100 unit/mL (3 mL) Inject 10 Units subcutaneously daily at bedtime. carvedilol (COREG) 25 mg tablet Take 1 tablet by mouth two times a day. blood sugar diagnostic (BLOOD GLUCOSE TEST) test strip DM2, controlled. Use once daily to test blood sugar in the morning blood sugar diagnostic (BLOOD GLUCOSE TEST) test strip 1 Strip three times daily. Test blood sugar(s)3 times daily. Dx: Type 2 DM - Uncontrolled, E11.65 Insulin: Yes Insulin Kerby, Disposable, (BD ULTRA-FINE BENNY PEN NEEDLE) 32 gauge x / Use once daily with Lantus as directed diclofenac sodium (VOLTAREN) 1 % topical gel Apply 2 g to affected area four times daily. flaxseed oil (OMEGA 3 ORAL) Take by mouth. hydrocortisone 2.5 % cream Apply 1 application to affected area twice daily. Location: face ferrous sulfate 325 mg (65 mg iron) tablet Take 325 mg by mouth two times a day. Taking 1 every other day cetirizine HCl (ZYRTEC) 10 mg chewable tablet Take 10 mg by mouth once daily. cholecalciferol (VITAMIN D3) 5,000 unit tab Take 5,000 Units by mouth twice daily. Blood-Glucose Meter (FREESTYLE LITE METER) monitoring kit 1 Each as directed. Lancets lancets Use as instructed furosemide (LASIX) 40 mg tablet Take 1 tablet by mouth once daily. (Patient taking differently: Take 40 mg by mouth once daily. PRN) potassium chloride (KLOR-CON 10) 10 mEq tablet Take 1 tablet by mouth once daily. triamcinolone acetonide (KENALOG) 0.1 % cream Apply 1 application to affected area twice daily as needed (rash). Apply sparingly to area for rash/itching. CHOLECALCIFEROL, VITAMIN D3, (VITAMIN D3 ORAL) Take 600 mg by mouth once daily. coenzyme Q10 (COENZYME Q-10) 100 mg cap capsule Take 1 capsule by mouth. CALTRATE-600 PLUS VITAMIN D3 600 MG-200 UNIT ORAL TAB TAKE TWO TABLETS DAILY. Review of Systems: The remainder of the review of systems is negative. PE: 09/26/24 1407 BP: 138/70 Pulse: 64 Resp: 20 Temp: 36.1 C (97 F) TempSrc: Left Tympanic Weight: 74.8 kg (165 lb) Gen: A&O, NAD, non-toxic appearing, Pleasant, cooperative HEENT: NT/AC, PERRLA, EOMs intact b/l, nares clear and patent b/l, pharynx without erythema, exudate or lesions. Uvula midline. MMM, EACs without erythema or debris. TMs pearly walker with intact landmarks b/l. Neck: supple, No cervical LAD, no thyromegaly, no carotid bruits CV: RRR, normal S1 and S2, no murmurs, no gallops, no rubs, Pulses 2+ and symmetric in UE and LE b/l Lungs: normal respiratory effort, CTA b/l, no wheezing or rhonchi or rales Abd: soft, NT, ND, +BS, no hepatosplenomegaly MS: gait is slowed but stable- arthritis changes multiple joints Neuro: CN II-XII intact b/l, strength 5/5 b/l UE and LE, DTRs 2/4 UE and LE, sensation intact. Skin: warm, dry, intact, No rashes or lesions on exposed skin. Foot exam: Monofilament with neuropathy on right and left feet. No edema, normal pulses ASSESSMENT/PLAN: 1. 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, with long-term current use of insulin (HCC) - ICD9: 250.40, 585.4, V58.67, ICD10: E11.22, N18.4, Z79.4 (primary diagnosis) - Controlled - Continue current medications - Blood glucose monitoring on a once daily schedule - Counseled on healthy diet and regular exercise - eGFR: 40 Improving - Counseled on avoiding NSAIDs, adequate hydration - Counseled on low sodium diet - HEMOGLOBIN A1C - COMPREHENSIVE METABOLIC PANEL - COMPLETE BLOOD COUNT - ALBUMIN/CREATININE RATIO, URINE - MAGNESIUM - IRON AND TIBC 2. Essential hypertension, benign - ICD9: 401.1, ICD10: I10 - Worsening control - Recommend home blood pressure monitoring, to bring results to next visit - Encouraged sodium restriction, DASH or Mediterranean diet - Recommend regular aerobic exercise Restart Carvedilol as twice a day, change amlodipine to PM, taking losartan in AM - AMLODIPINE 10 MG TABLET 3. CKD (chronic kidney disease) stage 4, GFR 15-29 ml/min ([facility]) - ICD9: 585.4, ICD10: N18.4 - eGFR: 40 Improving - Counseled on avoiding NSAIDs, adequate hydration - Counseled on low sodium diet - LOSARTAN 50 MG TABLET 4. Hypertensive heart disease without heart failure - ICD9: 402.90, ICD10: I11.9 - Controlled - Continue current medications - Recommend home blood pressure monitoring, to bring results to next visit - Encouraged sodium restriction, DASH or Mediterranean diet - Recommend regular aerobic exercise 5. Other polyneuropathy - ICD9: 357.89, ICD10: G62.89 stable 6. Hypertensive kidney disease with chronic kidney disease stage IV (HCC) - ICD9: 403.90, 585.4, ICD10: I12.9, N18.4 - Controlled - Continue current medications - Recommend home blood pressure monitoring, to bring results to next visit - Encouraged sodium restriction, DASH or Mediterranean diet - Recommend regular aerobic exercise - eGFR: 40 Improving - Counseled on avoiding NSAIDs, adequate hydration - Counseled on low sodium diet 7. Arthritis, multiple joint involvement - ICD9: 716.99, ICD10: M12.9 Stable, chronic. 8. Gout of multiple sites, unspecified cause, unspecified chronicity - ICD9: 274.9, ICD10: M10.9 Stable. 9. 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) - ICD9: 414.01, 413.9, ICD10: I25.119 stable 10. Pure hypercholesterolemia - ICD9: 272.0, ICD10: E78.00 - LIPID PANEL BASIC 11. Vitamin D deficiency - ICD9: 268.9, ICD10: E55.9 Continue supplement - VITAMIN D 25 HYDROXY Samson Ragsdale DO To ER if develops chest pain, shortness of breath, or severe worsening of symptoms. Discussed risks, benefits, alternatives, and potential side effects of medications. Patient expressed understanding and agreed with the plan. Samson Ragsdale DO [address] [place] [address] documented in this encounter [facility] 09-17-2024 Telephone encounter Note Labs placed this morning. Already in process. Desirae Irving APRN.CNP [facility] Work Phone: 09-17-2024 Miscellaneous Notes Labs placed this morning. Already in process. Desirae Irving APRN.CNP Patient is wanting to come in to today for routine lab work for upcoming wellness exam with PCP on 09/26/24. Please notify patient when orders are available in chart. documented in this encounter [facility] 09-17-2024 History of Present illness Narrative Lab work placed. Thank you, Desirae Irving APRN.CNP documented in this encounter [facility] 09-17-2024 Note HNO ID: [id number] Author: DESIRAE IRVING APRN.CNP Service: ? Author Type: Nurse Practitioner Type: Progress Notes Filed: 09/17/2024 13:00 Note Text: Lab work placed. Thank you, eDsirae Irving APRN.CNP [facility] 09-17-2024 Telephone encounter Note Patient is wanting to come in to today for routine lab work for upcoming wellness exam with PCP on 09/26/24. Please notify patient when orders are available in chart. [facility] 06-08-2024 Telephone encounter Note [facility] [place] Komal Rich RN June 08, 2024 2:54 PM [facility] 06-08-2024 Miscellaneous Notes [facility] [place]. Komal Rich RN June 08, 2024 2:54 PM 3mg capsules sent to [facility] in [place]. Please call Abraham & let him know. Thank you, Cristela Andersen APRN.CNP [facility] and it will be $11 a month. Patient is asking if a script for the 3mg dose [facility]. Patient aware that he will have to take 3 tabs. Patient also asking for a call back to notify him that the script is sent. Olga Cobb RN documented in this encounter [facility] 06-08-2024 Telephone encounter Note [facility] [place] Please call Abraham & let him know. Thank you, Cristela Andersen APRN.DOLPHIN RESEARCHER [facility] 06-08-2024 Telephone encounter Note [facility] states that [facility] 3mg and it will be $11 a month. Patient is asking if a script for the 3mg dose [facility]. Patient aware that he will have to take 3 tabs. Patient also asking for a call back to notify him that the script is sent. Olga Cobb RN [facility] 05-31-2024 History of Present illness Narrative FOLLOW UP VISIT - ENDOSCOPY Abraham Gage 1940 [id number] REFERRING PHYSICIAN: No referring provider defined for this encounter. Abraham Gage is a patient I am following for chronic diarrhea, nausea, and heartburn. Dr. Mendoza performed upper & lower endoscopy on 05/23/24. The patient was found to have EGD Impression: - Normal first portion of the duodenum, second portion of the duodenum and third portion of the duodenum. Biopsied for celiac. - Erythematous mucosa in the antrum. Biopsied. - Small hiatal hernia. COLONOSCOPY Impression: - Non-bleeding internal hemorrhoids. - Diverticulosis in the sigmoid colon. - Biopsies were taken with a cold forceps from the entire colon for evaluation of microscopic colitis. Pathology demonstrated: FINAL DIAGNOSIS A. Duodenum, biopsy: -Small intestinal mucosa with no diagnostic alteration -No evidence of celiac disease B. Stomach, biopsy: -Antral mucosa with no diagnostic alteration -No morphologic evidence of Helicobacter pylori C. Random colon, biopsy: -Collagenous colitis The patient notes continued diarrhea since the procedure. He does refer it has slowed down. He has used kaopectate with good relief also. VITALS: There were no vitals taken for this visit. General: patient is alert, cooperative, pleasant and in no acute distress On examination, the abdomen is benign. Assessment ASSESSMENT/PLAN: 1. Collagenous colitis - ICD9: 558.9, ICD10: K52.831 - Budeosinide 9mg x 8 weeks Keep me posted if medication is too expensive -Use supportive measures for diarrhea, increase fiber, kaopectate/imodium as needed. The operative findings and pathology report were reviewed with the patient, and the patient has had the opportunity to ask questions and have questions answered. If the patient notes any problems or changes in bowel function, the patient should contact me immediately. Otherwise I recommend follow up endoscopy as symptoms dictate. HM updated and recall letter generated. Discussed treatment plan and patient voices understanding. Patient's questions answered appropriately. Medications and potential side effects were discussed and patient voices understanding. Return to the office as scheduled or as needed for worsening/no improvement. Cristela Andersen APRN.JAIRON documented in this encounter [facility] 05-31-2024 Note HNO ID: [id number] Author: CRISTELA ANDERSEN APRN.JAIRON Service: ? Author Type: Nurse Practitioner Type: Progress Notes Filed: 05/31/2024 14:38 Note Text: FOLLOW UP VISIT - ENDOSCOPY Abraham Gage 1940 [id number] REFERRING PHYSICIAN: No referring provider defined for this encounter. Abraham Gage is a patient I am following for chronic diarrhea, nausea, and heartburn. Dr. Mendoza performed upper AND lower endoscopy on 05/23/24. The patient was found to have EGD Impression: - Normal first portion of the duodenum, second portion of the duodenum and third portion of the duodenum. Biopsied for celiac. - Erythematous mucosa in the antrum. Biopsied. - Small hiatal hernia. COLONOSCOPY Impression: - Non-bleeding internal hemorrhoids. - Diverticulosis in the sigmoid colon. - Biopsies were taken with a cold forceps from the entire colon for evaluation of microscopic colitis. Pathology demonstrated: FINAL DIAGNOSIS A. Duodenum, biopsy: -Small intestinal mucosa with no diagnostic alteration -No evidence of celiac disease B. Stomach, biopsy: -Antral mucosa with no diagnostic alteration -No morphologic evidence of Helicobacter pylori C. Random colon, biopsy: -Collagenous colitis The patient notes continued diarrhea since the procedure. He does refer it has slowed down. He has used kaopectate with good relief also. VITALS: There were no vitals taken for this visit. General: patient is alert, cooperative, pleasant and in no acute distress On examination, the abdomen is benign. Assessment ASSESSMENT/PLAN: 1. Collagenous colitis - ICD9: 558.9, ICD10: K52.831 - Budeosinide 9mg x 8 weeks Keep me posted if medication is too expensive -Use supportive measures for diarrhea, increase fiber, kaopectate/imodium as needed. The operative findings and pathology report were reviewed with the patient, and the patient has had the opportunity to ask questions and have questions answered. If the patient notes any problems or changes in bowel function, the patient should contact me immediately. Otherwise I recommend follow up endoscopy as symptoms dictate. HM updated and recall letter generated. Discussed treatment plan and patient voices understanding. Patient's questions answered appropriately. Medications and potential side effects were discussed and patient voices understanding. Return to the office as scheduled or as needed for worsening/no improvement. Cristela Andersen APRN.CNP [facility] 05-30-2024 Telephone encounter Note Patient notified and scheduled for an EGD & colon follow up from 05-23 Sivan Ross [facility] Work Phone: 05-30-2024 Miscellaneous Notes Patient notified and scheduled for an EGD & colon follow up from 05-23 Sivan Ross Can you please call Abraham to let him know he needs a visit to go over his colonoscopy/EGD results. Can be in person or virtual. Thank you, Cristela Andersen APRN.CNP documented in this encounter [facility] 05-30-2024 Telephone encounter Note Can you please call Abraham to let him know he needs a visit to go over his colonoscopy/EGD results. Can be in person or virtual. Thank you, Cristela Andersen APRN.CNP [facility] Work Phone: 05-23-2024 Attending History and physical note UPDATED HISTORY AND PHYSICAL EXAMINATION SERVICE DATE: 05/23/2024 SERVICE TIME: 13:33 SENSITIVE EXAMINATION CONSENT: The sensitive examination was discussed with the Patient or Patient's Authorized [employer] Professional. As applicable, any other physician, advance practice provider, medical student, or other health professional student that will be observing or involved in the sensitive examination for educational or training purposes was discussed with the Patient or Authorized [employer] Professional. The Patient or Authorized [employer] Professional has agreed to proceed with the sensitive examination. (Sensitive examination includes inspection and/or palpation of the breasts, pelvis, prostate and anorectal regions) PHYSICAL EXAM MUST BE COMPLETED ON ADMISSION The History and Physical (completed in the past 30 days) has been reviewed and the patient has been examined. The contents accurately reflect the patient's condition with the following additions or revisions since the H&P was completed. Examination indicates no changes. This H&P can be found in the Electronic Medical Record . SIGNATURE: Malu Mendoza MD PATIENT NAME: Abraham Gage DATE: May 23, 2024 TIME: 1:33 PM Source Note - Malu Mendoza MD - 05/23/2024 2:15 PM EDT HISTORY AND PHYSICAL Abraham Gage : 1940 REFERRING PHYSICIAN: Samson Ragsdale [address] [facility] [address] CHIEF COMPLAINT: Patient presents with: Consult: Colonoscopy HPI: Abraham is a 83 year old male referred for endoscopy. Abraham notes diarrhea x 6 months & decreased appetite. PCP Abraham denies abdominal pain.. Abraham notes diarrhea x 6 mos. Watery? +fluctuance Abraham denies constipation. Abraham notes a change in bowel habits. Abraham denies melena. Abraham denies bright red blood per rectum. Abraham notes hemorrhoids. Abraham notes heartburn- using Tums in excess. Abraham denies dysphagia. Abraham denies a history of ulcers/ peptic ulcer disease. +intermittent nausea Denies family history of colon issues. Abraham has a hx of CAD with stents from 2007. Last stress test 2022 EF of 53%. Abraham follows with [facility] had elective cath 06/2023 due to positive stress test. 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 Currently takes plavix. Follows with Dr. Petersen at [facility]. Last OV 07/2023 Abraham has a hx of Alzheimers dementia Abraham has undergone prior endoscopy. Last EGD &colonoscopy 04/2017 with [facility] for anemia Impression: -Findings suggest upper gastritis clopidogrel and aspirin and potassium supplements -Left-sided diverticulosis but no evidence of diverticular bleed -Internal hemorrhoid no evidence of bleeding Small Bowel Capsule 06/2018 IMPRESSION: Duodenal and ileal bleeding CURRENT MEDICATIONS Current Outpatient Medications Medication Sig blood sugar diagnostic (BLOOD GLUCOSE TEST) test strip Test blood sugar(s) 2 times daily. Dx: Type 2 DM - Controlled E11.9 Insulin: Yes allopurinol (ZYLOPRIM) 100 mg tablet Take 1 tablet by mouth once daily. insulin glargine (BASAGLAR KWIKPEN U-100 INSULIN) 100 unit/mL (3 mL) Inject 10 Units subcutaneously daily at bedtime. losartan (COZAAR) 50 mg tablet Take 0.5 tablets by mouth once daily. clopidogrel (PLAVIX) 75 mg tablet Take 1 tablet by mouth once daily. amLODIPine (NORVASC) 10 mg tablet Take 1 tablet by mouth once daily. In the evening carvedilol (COREG) 25 mg tablet Take 1 tablet by mouth two times a day. isosorbide mononitrate ER (IMDUR) 30 mg 24 hr tablet Take 1 tablet by mouth once daily. blood sugar diagnostic (BLOOD GLUCOSE TEST) test strip DM2, controlled. Use once daily to test blood sugar in the morning blood sugar diagnostic (BLOOD GLUCOSE TEST) test strip 1 Strip three times daily. Test blood sugar(s)3 times daily. Dx: Type 2 DM - Uncontrolled, E11.65 Insulin: Yes CRANBERRY Insulin Kerby, Disposable, (BD ULTRA-FINE BENNY PEN NEEDLE) 32 gauge x 5/32 Use once daily with Lantus as directed diclofenac sodium (VOLTAREN) 1 % topical gel Apply 2 g to affected area four times daily. flaxseed oil (OMEGA 3 ORAL) Take by mouth. hydrocortisone 2.5 % cream Apply 1 application to affected area twice daily. Location: face ferrous sulfate 325 mg (65 mg iron) tablet Take 325 mg by mouth two times a day. Taking 1 every other day cetirizine HCl (ZYRTEC) 10 mg chewable tablet Take 10 mg by mouth once daily. cholecalciferol (VITAMIN D3) 5,000 unit tab Take 5,000 Units by mouth twice daily. Blood-Glucose Meter (FREESTYLE LITE METER) monitoring kit 1 Each as directed. Lancets lancets Use as instructed furosemide (LASIX) 40 mg tablet Take 1 tablet by mouth once daily. (Patient taking differently: Take 40 mg by mouth once daily. PRN) potassium chloride (KLOR-CON 10) 10 mEq tablet Take 1 tablet by mouth once daily. triamcinolone acetonide (KENALOG) 0.1 % cream Apply 1 application to affected area twice daily as needed (rash). Apply sparingly to area for rash/itching. CHOLECALCIFEROL, VITAMIN D3, (VITAMIN D3 ORAL) Take 600 mg by mouth once daily. coenzyme Q10 (COENZYME Q-10) 100 mg cap capsule Take 1 capsule by mouth. ONE DAILY MULTI-VITAMIN ORAL TAB Take one(1) tablet daily. CALTRATE-600 PLUS VITAMIN D3 600 MG-200 UNIT ORAL TAB TAKE TWO TABLETS DAILY. peg 3350-Electrolytes (GOLYTELY) 236-22.74-6.74 -5.86 gram suspension Take 4,000 mL by mouth one time only for 1 dose. Refer to printed prep instructions from your provider. Current Facility-Administered Medications Medication Dose Route Frequency perflutren lipid microspheres 1.3 mL in NaCl (PF) 0.9% 10 mL injection (DEFINITY) INTRAVENOUS DIRECTED PRN sodium chloride 0.9 % (flush) 10 mL (BD POSIFLUSH) 10 mL INTRAVENOUS DIRECTED PRN ALLERGIES: Atorvastatin, Crestor [Rosuvastatin Calcium], Glucosamine, Motrin [Ibuprofen], Pravastatin, and Inqdhfy-Zxf-Jrk Reductase Inhibitors PAST MEDICAL HISTORY 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 09/2015 4.15 cm Acute gastritis without mention of hemorrhage 04/26/2017 EGD by [facility] care planning 03/24/2022 angelo Shiloh can help with medical decision making AMI (acute myocardial infarction) (HCC) 07/03/2013 Carotid atherosclerosis 05/2014 CKD stage G3b/A2, GFR 30-44 and albumin creatinine ratio 30-299 mg/g (HCC) AVOID NEPHROTOXIC MEDICATIONS Diabetes mellitus type 2, uncontrolled, without complications Diaphragmatic hernia without mention of obstruction or gangrene Diverticulosis of colon (without mention of hemorrhage) 04/26/2017 colonoscopy by [facility] Esophagitis Generalized osteoarthrosis, unspecified site Internal hemorrhoid 04/26/2017 colonoscopy by [facility] Iron deficiency anemia Malignant neoplasm of prostate (HCC) Other and unspecified hyperlipidemia Unspecified cardiovascular disease 1994 CABG Unspecified constipation 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 Nolan Triana EGD TRANSORAL BIOPSY SINGLE/MULTIPLE 07/10/07 PAST SURGICAL HISTORY OF 01/26/08 stent placement ramus and prox ramus PAST SURGICAL HISTORY OF heart stents PROSTATECTOMY PERINEAL RADICAL 2000 Prostatectomy, radical- Dr. 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 Yousif Triana; next screening colonoscopy in 10yrs, [facility] UNLISTED DIAGNOSTIC GASTROENTEROLOGY PROCEDURE 06/06/2018 FAMILY HISTORY FAMILY HISTORY Problem Relation Age of Onset Hypertension Father COPD Father Heart Mother SOCIAL HISTORY Social History Tobacco Use Smoking status: Former Current packs/day: 2.00 Average packs/day: 2.0 packs/day for 20.0 years (40.0 ttl pk-yrs) Types: Cigarettes, Pipe, Cigars Smokeless tobacco: Never Tobacco comments: quit in 1987 Vaping Use Vaping status: Never Used Substance Use Topics Alcohol use: Yes Comment: rarely Drug use: No REVIEW OF SYMPTOMS: The review of systems data was entered by the nurse and reviewed by wy Nursing Notes: Sabina Cisneros RN 04/13/2024 3:37 PM Signed Patient was given verbal and written instructions regarding bowel prep. He was instructed to call the office if he has any further questions. He verbalized understanding. PHYSICAL EXAMINATION: General: The patient is 83 year old, male well nourished, well hydrated in no acute distress. The patient is oriented to time, place, and person. VITALS: Blood pressure 116/57, pulse 64, height 172.7 cm (5' 8), weight 73.2 kg (161 lb 6.4 oz), SpO2 96%. Body mass index is 24.54 kg/m . HEENT: Normal cephalic, ataumatic, pupils are equally round, sclera are anicteric, mucous membranes are moist, oropharynx is clear. Neck has no masses, asymmetry or lymphadenopathy. Respiratory: Clear to auscultation and percussion. Normal respiratory excursion and pattern. Cardiac: Examination is regular rate and rhythm. Normal S1/S2 Abdominal exam: Soft, nontender, with no palpable masses. No hepatosplenomegaly. No palpable hernias. Extremities: no clubbing, cyanosis or edema. No adenopathy. LABORATORY VALUES: As Noted RADIOLOGIC STUDIES: As Noted Assessment IMPRESSION: GERD, diarrhea PLAN: I have reviewed my findings with the surgeon. Will plan for upper and lower endoscopy. We discussed the risks and benefits of the planned endoscopy. I have informed the patient that complications can occur including failure to complete the endoscopy and perforation. Abraham had the opportunity to ask questions concerning the planned endoscopy. My staff has also explained the procedure to the patient in understandable terms and has given the patient printed material concerning the procedure. Abraham freely consents to surgery. I plan to use Golytely bowel preparation I have explained to the patient the difference between IV conscious sedation and MAC anesthesia - and I have offered either, according to the patient's wishes. I have explained that with IV conscious sedation there is no anesthesia provider available and therefore there is a limitation of the amount of IV medications that can be given and that the patient may wake up in the middle of the procedure and/or experience pain/discomfort during the procedure. Further discussion was done and the patient was given the opportunity to ask questions and all questions were answered. MAC anesthesia. Abraham was counseled that if there are changes in his/her medical condition, to let the office know if surgery should proceed. If there are changes in patient's medical condition from time of this encounter to the day of the procedure that preclude anesthesia, patient may have procedure cancelled for patient's safety. Diagnoses: (K21.9) Gastroesophageal reflux disease without esophagitis (primary encounter diagnosis) (K52.9) Chronic diarrhea (R10.84) Generalized abdominal pain Consultation requested by Dr. Ragsdale for an opinion regarding diarrhea and geralized abdominal pain. My final recommendations will be communicated back to the requesting physician by way of shared Medical record or letter to requesting physician via US mail. Portions of this documentation were copied and pasted from previous office visit notes in order to provide a cohesive continuity of the history. The note has been reviewed and edited and updated as necessary. Cristela Andersen APRN.DOLPHIN RESEARCHER [facility] Work Phone: 05-23-2024 History and physical note HISTORY AND PHYSICAL Abraham Gage : 1940 REFERRING PHYSICIAN: Samson Ragsdale [address] [facility] [address] CHIEF COMPLAINT: Patient presents with: Consult: Colonoscopy HPI: Abraham is a 83 year old male referred for endoscopy. Abraham notes diarrhea x 6 months & decreased appetite. PCP Abraham denies abdominal pain.. Abraham notes diarrhea x 6 mos. Watery? +fluctuance Abraham denies constipation. Abraham notes a change in bowel habits. Abraham denies melena. Abraham denies bright red blood per rectum. Abraham notes hemorrhoids. Abraham notes heartburn- using Tums in excess. Abraham denies dysphagia. Abraham denies a history of ulcers/ peptic ulcer disease. +intermittent nausea Denies family history of colon issues. Abraham has a hx of CAD with stents from 2007. Last stress test 2022 EF of 53%. Abraham follows with [facility] had elective cath 06/2023 due to positive stress test. 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 Currently takes plavix. Follows with Dr. Petersen at [facility]. Last OV 07/2023 Abraham has a hx of Alzheimers dementia Abraham has undergone prior endoscopy. Last EGD &colonoscopy 04/2017 with [facility] for anemia Impression: -Findings suggest upper gastritis clopidogrel and aspirin and potassium supplements -Left-sided diverticulosis but no evidence of diverticular bleed -Internal hemorrhoid no evidence of bleeding Small Bowel Capsule 06/2018 IMPRESSION: Duodenal and ileal bleeding CURRENT MEDICATIONS Current Outpatient Medications Medication Sig blood sugar diagnostic (BLOOD GLUCOSE TEST) test strip Test blood sugar(s) 2 times daily. Dx: Type 2 DM - Controlled E11.9 Insulin: Yes allopurinol (ZYLOPRIM) 100 mg tablet Take 1 tablet by mouth once daily. insulin glargine (BASAGLAR KWIKPEN U-100 INSULIN) 100 unit/mL (3 mL) Inject 10 Units subcutaneously daily at bedtime. losartan (COZAAR) 50 mg tablet Take 0.5 tablets by mouth once daily. clopidogrel (PLAVIX) 75 mg tablet Take 1 tablet by mouth once daily. amLODIPine (NORVASC) 10 mg tablet Take 1 tablet by mouth once daily. In the evening carvedilol (COREG) 25 mg tablet Take 1 tablet by mouth two times a day. isosorbide mononitrate ER (IMDUR) 30 mg 24 hr tablet Take 1 tablet by mouth once daily. blood sugar diagnostic (BLOOD GLUCOSE TEST) test strip DM2, controlled. Use once daily to test blood sugar in the morning blood sugar diagnostic (BLOOD GLUCOSE TEST) test strip 1 Strip three times daily. Test blood sugar(s)3 times daily. Dx: Type 2 DM - Uncontrolled, E11.65 Insulin: Yes CRANBERRY Insulin Kerby, Disposable, (BD ULTRA-FINE BENNY PEN NEEDLE) 32 gauge x 5/32 Use once daily with Lantus as directed diclofenac sodium (VOLTAREN) 1 % topical gel Apply 2 g to affected area four times daily. flaxseed oil (OMEGA 3 ORAL) Take by mouth. hydrocortisone 2.5 % cream Apply 1 application to affected area twice daily. Location: face ferrous sulfate 325 mg (65 mg iron) tablet Take 325 mg by mouth two times a day. Taking 1 every other day cetirizine HCl (ZYRTEC) 10 mg chewable tablet Take 10 mg by mouth once daily. cholecalciferol (VITAMIN D3) 5,000 unit tab Take 5,000 Units by mouth twice daily. Blood-Glucose Meter (FREESTYLE LITE METER) monitoring kit 1 Each as directed. Lancets lancets Use as instructed furosemide (LASIX) 40 mg tablet Take 1 tablet by mouth once daily. (Patient taking differently: Take 40 mg by mouth once daily. PRN) potassium chloride (KLOR-CON 10) 10 mEq tablet Take 1 tablet by mouth once daily. triamcinolone acetonide (KENALOG) 0.1 % cream Apply 1 application to affected area twice daily as needed (rash). Apply sparingly to area for rash/itching. CHOLECALCIFEROL, VITAMIN D3, (VITAMIN D3 ORAL) Take 600 mg by mouth once daily. coenzyme Q10 (COENZYME Q-10) 100 mg cap capsule Take 1 capsule by mouth. ONE DAILY MULTI-VITAMIN ORAL TAB Take one(1) tablet daily. CALTRATE-600 PLUS VITAMIN D3 600 MG-200 UNIT ORAL TAB TAKE TWO TABLETS DAILY. peg 3350-Electrolytes (GOLYTELY) 236-22.74-6.74 -5.86 gram suspension Take 4,000 mL by mouth one time only for 1 dose. Refer to printed prep instructions from your provider. Current Facility-Administered Medications Medication Dose Route Frequency perflutren lipid microspheres 1.3 mL in NaCl (PF) 0.9% 10 mL injection (DEFINITY) INTRAVENOUS DIRECTED PRN sodium chloride 0.9 % (flush) 10 mL (BD POSIFLUSH) 10 mL INTRAVENOUS DIRECTED PRN ALLERGIES: Atorvastatin, Crestor [Rosuvastatin Calcium], Glucosamine, Motrin [Ibuprofen], Pravastatin, and Gefinro-Ugl-Umo Reductase Inhibitors PAST MEDICAL HISTORY 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 09/2015 4.15 cm Acute gastritis without mention of hemorrhage 04/26/2017 EGD by [facility] care planning 03/24/2022 angelo Matamoros can help with medical decision making AMI (acute myocardial infarction) (HCC) 07/03/2013 Carotid atherosclerosis 05/2014 CKD stage G3b/A2, GFR 30-44 and albumin creatinine ratio 30-299 mg/g (HCC) AVOID NEPHROTOXIC MEDICATIONS Diabetes mellitus type 2, uncontrolled, without complications Diaphragmatic hernia without mention of obstruction or gangrene Diverticulosis of colon (without mention of hemorrhage) 04/26/2017 colonoscopy by [facility] Esophagitis Generalized osteoarthrosis, unspecified site Internal hemorrhoid 04/26/2017 colonoscopy by [facility] Iron deficiency anemia Malignant neoplasm of prostate (HCC) Other and unspecified hyperlipidemia Unspecified cardiovascular disease 1994 CABG Unspecified constipation 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 Nolan Triana EGD TRANSORAL BIOPSY SINGLE/MULTIPLE 07/10/07 PAST SURGICAL HISTORY OF 01/26/08 stent placement ramus and prox ramus PAST SURGICAL HISTORY OF heart stents PROSTATECTOMY PERINEAL RADICAL 2000 Prostatectomy, radical- Dr. 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 Yousif Triana; next screening colonoscopy in 10yrs, [facility] UNLISTED DIAGNOSTIC GASTROENTEROLOGY PROCEDURE 06/06/2018 FAMILY HISTORY FAMILY HISTORY Problem Relation Age of Onset Hypertension Father COPD Father Heart Mother SOCIAL HISTORY Social History Tobacco Use Smoking status: Former Current packs/day: 2.00 Average packs/day: 2.0 packs/day for 20.0 years (40.0 ttl pk-yrs) Types: Cigarettes, Pipe, Cigars Smokeless tobacco: Never Tobacco comments: quit in 1987 Vaping Use Vaping status: Never Used Substance Use Topics Alcohol use: Yes Comment: rarely Drug use: No REVIEW OF SYMPTOMS: The review of systems data was entered by the nurse and reviewed by wy Nursing Notes: Sabina Cisneros RN 04/13/2024 3:37 PM Signed Patient was given verbal and written instructions regarding bowel prep. He was instructed to call the office if he has any further questions. He verbalized understanding. PHYSICAL EXAMINATION: General: The patient is 83 year old, male well nourished, well hydrated in no acute distress. The patient is oriented to time, place, and person. VITALS: Blood pressure 116/57, pulse 64, height 172.7 cm (5' 8), weight 73.2 kg (161 lb 6.4 oz), SpO2 96%. Body mass index is 24.54 kg/m . HEENT: Normal cephalic, ataumatic, pupils are equally round, sclera are anicteric, mucous membranes are moist, oropharynx is clear. Neck has no masses, asymmetry or lymphadenopathy. Respiratory: Clear to auscultation and percussion. Normal respiratory excursion and pattern. Cardiac: Examination is regular rate and rhythm. Normal S1/S2 Abdominal exam: Soft, nontender, with no palpable masses. No hepatosplenomegaly. No palpable hernias. Extremities: no clubbing, cyanosis or edema. No adenopathy. LABORATORY VALUES: As Noted RADIOLOGIC STUDIES: As Noted Assessment IMPRESSION: GERD, diarrhea PLAN: I have reviewed my findings with the surgeon. Will plan for upper and lower endoscopy. We discussed the risks and benefits of the planned endoscopy. I have informed the patient that complications can occur including failure to complete the endoscopy and perforation. Abraham had the opportunity to ask questions concerning the planned endoscopy. My staff has also explained the procedure to the patient in understandable terms and has given the patient printed material concerning the procedure. Abraham freely consents to surgery. I plan to use Golytely bowel preparation I have explained to the patient the difference between IV conscious sedation and MAC anesthesia - and I have offered either, according to the patient's wishes. I have explained that with IV conscious sedation there is no anesthesia provider available and therefore there is a limitation of the amount of IV medications that can be given and that the patient may wake up in the middle of the procedure and/or experience pain/discomfort during the procedure. Further discussion was done and the patient was given the opportunity to ask questions and all questions were answered. MAC anesthesia. Abraham was counseled that if there are changes in his/her medical condition, to let the office know if surgery should proceed. If there are changes in patient's medical condition from time of this encounter to the day of the procedure that preclude anesthesia, patient may have procedure cancelled for patient's safety. Diagnoses: (K21.9) Gastroesophageal reflux disease without esophagitis (primary encounter diagnosis) (K52.9) Chronic diarrhea (R10.84) Generalized abdominal pain Consultation requested by Dr. Ragsdale for an opinion regarding diarrhea and geralized abdominal pain. My final recommendations will be communicated back to the requesting physician by way of shared Medical record or letter to requesting physician via US mail. Portions of this documentation were copied and pasted from previous office visit notes in order to provide a cohesive continuity of the history. The note has been reviewed and edited and updated as necessary. Cristela Andersen APRN.DOLPHIN RESEARCHER [facility] 05-23-2024 History and physical note UPDATED HISTORY AND PHYSICAL EXAMINATION SERVICE DATE: 05/23/2024 SERVICE TIME: 13:33 SENSITIVE EXAMINATION CONSENT: The sensitive examination was discussed with the Patient or Patient's Authorized [employer] Professional. As applicable, any other physician, advance practice provider, medical student, or other health professional student that will be observing or involved in the sensitive examination for educational or training purposes was discussed with the Patient or Authorized [employer] Professional. The Patient or Authorized [employer] Professional has agreed to proceed with the sensitive examination. (Sensitive examination includes inspection and/or palpation of the breasts, pelvis, prostate and anorectal regions) PHYSICAL EXAM MUST BE COMPLETED ON ADMISSION The History and Physical (completed in the past 30 days) has been reviewed and the patient has been examined. The contents accurately reflect the patient's condition with the following additions or revisions since the H&P was completed. Examination indicates no changes. This H&P can be found in the Electronic Medical Record . SIGNATURE: Malu Mendoza MD PATIENT NAME: Abraham Gage DATE: May 23, 2024 TIME: 1:33 PM Source Note - Malu Mendoza MD - 05/23/2024 2:15 PM EDT HISTORY AND PHYSICAL Abraham Gage : 1940 REFERRING PHYSICIAN: Samson Ragsdale [address] [facility] [address] CHIEF COMPLAINT: Patient presents with: Consult: Colonoscopy HPI: Abraham is a 83 year old male referred for endoscopy. Abraham notes diarrhea x 6 months & decreased appetite. PCP Abraham denies abdominal pain.. Abraham notes diarrhea x 6 mos. Watery? +fluctuance Abraham denies constipation. Abraham notes a change in bowel habits. Abraham denies melena. Abraham denies bright red blood per rectum. Abraham notes hemorrhoids. Abraham notes heartburn- using Tums in excess. Abraham denies dysphagia. Abraham denies a history of ulcers/ peptic ulcer disease. +intermittent nausea Denies family history of colon issues. Abraham has a hx of CAD with stents from 2007. Last stress test 2022 EF of 53%. Abraham follows with [facility] had elective cath 06/2023 due to positive stress test. 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 Currently takes plavix. Follows with Dr. Petersen at [facility]. Last OV 07/2023 Abraham has a hx of Alzheimers dementia Abraham has undergone prior endoscopy. Last EGD &colonoscopy 04/2017 with At [facility] for anemia Impression: -Findings suggest upper gastritis clopidogrel and aspirin and potassium supplements -Left-sided diverticulosis but no evidence of diverticular bleed -Internal hemorrhoid no evidence of bleeding Small Bowel Capsule 06/2018 IMPRESSION: Duodenal and ileal bleeding CURRENT MEDICATIONS Current Outpatient Medications Medication Sig blood sugar diagnostic (BLOOD GLUCOSE TEST) test strip Test blood sugar(s) 2 times daily. Dx: Type 2 DM - Controlled E11.9 Insulin: Yes allopurinol (ZYLOPRIM) 100 mg tablet Take 1 tablet by mouth once daily. insulin glargine (BASAGLAR KWIKPEN U-100 INSULIN) 100 unit/mL (3 mL) Inject 10 Units subcutaneously daily at bedtime. losartan (COZAAR) 50 mg tablet Take 0.5 tablets by mouth once daily. clopidogrel (PLAVIX) 75 mg tablet Take 1 tablet by mouth once daily. amLODIPine (NORVASC) 10 mg tablet Take 1 tablet by mouth once daily. In the evening carvedilol (COREG) 25 mg tablet Take 1 tablet by mouth two times a day. isosorbide mononitrate ER (IMDUR) 30 mg 24 hr tablet Take 1 tablet by mouth once daily. blood sugar diagnostic (BLOOD GLUCOSE TEST) test strip DM2, controlled. Use once daily to test blood sugar in the morning blood sugar diagnostic (BLOOD GLUCOSE TEST) test strip 1 Strip three times daily. Test blood sugar(s)3 times daily. Dx: Type 2 DM - Uncontrolled, E11.65 Insulin: Yes CRANBERRY Insulin Kerby, Disposable, (BD ULTRA-FINE BENNY PEN NEEDLE) 32 gauge x Use once daily with Lantus as directed diclofenac sodium (VOLTAREN) 1 % topical gel Apply 2 g to affected area four times daily. flaxseed oil (OMEGA 3 ORAL) Take by mouth. hydrocortisone 2.5 % cream Apply 1 application to affected area twice daily. Location: face ferrous sulfate 325 mg (65 mg iron) tablet Take 325 mg by mouth two times a day. Taking 1 every other day cetirizine HCl (ZYRTEC) 10 mg chewable tablet Take 10 mg by mouth once daily. cholecalciferol (VITAMIN D3) 5,000 unit tab Take 5,000 Units by mouth twice daily. Blood-Glucose Meter (FREESTYLE LITE METER) monitoring kit 1 Each as directed. Lancets lancets Use as instructed furosemide (LASIX) 40 mg tablet Take 1 tablet by mouth once daily. (Patient taking differently: Take 40 mg by mouth once daily. PRN) potassium chloride (KLOR-CON 10) 10 mEq tablet Take 1 tablet by mouth once daily. triamcinolone acetonide (KENALOG) 0.1 % cream Apply 1 application to affected area twice daily as needed (rash). Apply sparingly to area for rash/itching. CHOLECALCIFEROL, VITAMIN D3, (VITAMIN D3 ORAL) Take 600 mg by mouth once daily. coenzyme Q10 (COENZYME Q-10) 100 mg cap capsule Take 1 capsule by mouth. ONE DAILY MULTI-VITAMIN ORAL TAB Take one(1) tablet daily. CALTRATE-600 PLUS VITAMIN D3 600 MG-200 UNIT ORAL TAB TAKE TWO TABLETS DAILY. peg 3350-Electrolytes (GOLYTELY) 236-22.74-6.74 -5.86 gram suspension Take 4,000 mL by mouth one time only for 1 dose. Refer to printed prep instructions from your provider. Current Facility-Administered Medications Medication Dose Route Frequency perflutren lipid microspheres 1.3 mL in NaCl (PF) 0.9% 10 mL injection (DEFINITY) INTRAVENOUS DIRECTED PRN sodium chloride 0.9 % (flush) 10 mL (BD POSIFLUSH) 10 mL INTRAVENOUS DIRECTED PRN ALLERGIES: Atorvastatin, Crestor [Rosuvastatin Calcium], Glucosamine, Motrin [Ibuprofen], Pravastatin, and Iariudw-Mvj-Swa Reductase Inhibitors PAST MEDICAL HISTORY 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 09/2015 4.15 cm Acute gastritis without mention of hemorrhage 04/26/2017 EGD by [facility] Advance care planning 03/24/2022 angelo Shiloh can help with medical decision making AMI (acute myocardial infarction) (HCC) 07/03/2013 Carotid atherosclerosis 05/2014 CKD stage G3b/A2, GFR 30-44 and albumin creatinine ratio 30-299 mg/g (HCC) AVOID NEPHROTOXIC MEDICATIONS Diabetes mellitus type 2, uncontrolled, without complications Diaphragmatic hernia without mention of obstruction or gangrene Diverticulosis of colon (without mention of hemorrhage) 04/26/2017 colonoscopy by [facility] Esophagitis Generalized osteoarthrosis, unspecified site Internal hemorrhoid 04/26/2017 colonoscopy by [facility] Iron deficiency anemia Malignant neoplasm of prostate (HCC) Other and unspecified hyperlipidemia Unspecified cardiovascular disease 1994 CABG Unspecified constipation 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 Nolan Triana EGD TRANSORAL BIOPSY SINGLE/MULTIPLE 07/10/07 PAST SURGICAL HISTORY OF 01/26/08 stent placement ramus and prox ramus PAST SURGICAL HISTORY OF heart stents PROSTATECTOMY PERINEAL RADICAL 1999 Prostatectomy, radical- Dr. 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 Yousif Triana; next screening colonoscopy in 10yrs, [facility] UNLISTED DIAGNOSTIC GASTROENTEROLOGY PROCEDURE 06/06/2018 FAMILY HISTORY FAMILY HISTORY Problem Relation Age of Onset Hypertension Father COPD Father Heart Mother SOCIAL HISTORY Social History Tobacco Use Smoking status: Former Current packs/day: 2.00 Average packs/day: 2.0 packs/day for 20.0 years (40.0 ttl pk-yrs) Types: Cigarettes, Pipe, Cigars Smokeless tobacco: Never Tobacco comments: quit in 1987 Vaping Use Vaping status: Never Used Substance Use Topics Alcohol use: Yes Comment: rarely Drug use: No REVIEW OF SYMPTOMS: The review of systems data was entered by the nurse and reviewed by me Nursing Notes: Sabina Cisneros RN 04/13/2024 3:37 PM Signed Patient was given verbal and written instructions regarding bowel prep. He was instructed to call the office if he has any further questions. He verbalized understanding. PHYSICAL EXAMINATION: General: The patient is 83 year old, male well nourished, well hydrated in no acute distress. The patient is oriented to time, place, and person. VITALS: Blood pressure 116/57, pulse 64, height 172.7 cm (5' 8), weight 73.2 kg (161 lb 6.4 oz), SpO2 96%. Body mass index is 24.54 kg/m . HEENT: Normal cephalic, ataumatic, pupils are equally round, sclera are anicteric, mucous membranes are moist, oropharynx is clear. Neck has no masses, asymmetry or lymphadenopathy. Respiratory: Clear to auscultation and percussion. Normal respiratory excursion and pattern. Cardiac: Examination is regular rate and rhythm. Normal S1/S2 Abdominal exam: Soft, nontender, with no palpable masses. No hepatosplenomegaly. No palpable hernias. Extremities: no clubbing, cyanosis or edema. No adenopathy. LABORATORY VALUES: As Noted RADIOLOGIC STUDIES: As Noted Assessment IMPRESSION: GERD, diarrhea PLAN: I have reviewed my findings with the surgeon. Will plan for upper and lower endoscopy. We discussed the risks and benefits of the planned endoscopy. I have informed the patient that complications can occur including failure to complete the endoscopy and perforation. Abraham had the opportunity to ask questions concerning the planned endoscopy. My staff has also explained the procedure to the patient in understandable terms and has given the patient printed material concerning the procedure. Abraham freely consents to surgery. I plan to use Golytely bowel preparation I have explained to the patient the difference between IV conscious sedation and MAC anesthesia - and I have offered either, according to the patient's wishes. I have explained that with IV conscious sedation there is no anesthesia provider available and therefore there is a limitation of the amount of IV medications that can be given and that the patient may wake up in the middle of the procedure and/or experience pain/discomfort during the procedure. Further discussion was done and the patient was given the opportunity to ask questions and all questions were answered. MAC anesthesia. Abraham was counseled that if there are changes in his/her medical condition, to let the office know if surgery should proceed. If there are changes in patient's medical condition from time of this encounter to the day of the procedure that preclude anesthesia, patient may have procedure cancelled for patient's safety. Diagnoses: (K21.9) Gastroesophageal reflux disease without esophagitis (primary encounter diagnosis) (K52.9) Chronic diarrhea (R10.84) Generalized abdominal pain Consultation requested by Dr. Ragsdale for an opinion regarding diarrhea and geralized abdominal pain. My final recommendations will be communicated back to the requesting physician by way of shared Medical record or letter to requesting physician via [place] mail. Portions of this documentation were copied and pasted from previous office visit notes in order to provide a cohesive continuity of the history. The note has been reviewed and edited and updated as necessary. Cristela Andersen APRN.DOLPHIN RESEARCHER HISTORY AND PHYSICAL Abraham Gage : 1940 REFERRING PHYSICIAN: Samson Ragsdale [address] [facility] [address] CHIEF COMPLAINT: Patient presents with: Consult: Colonoscopy HPI: Abraham is a 83 year old male referred for endoscopy. Abraham notes diarrhea x 6 months & decreased appetite. PCP Abraham denies abdominal pain.. Abraham notes diarrhea x 6 mos. Watery? +fluctuance Abraham denies constipation. Abraham notes a change in bowel habits. Abraham denies melena. Abraham denies bright red blood per rectum. Abraham notes hemorrhoids. Abraham notes heartburn- using Tums in excess. Abraham denies dysphagia. Abraham denies a history of ulcers/ peptic ulcer disease. +intermittent nausea Denies family history of colon issues. Abraham has a hx of CAD with stents from 2007. Last stress test 2022 EF of 53%. Abraham follows with [facility] had elective cath 06/2023 due to positive stress test. 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 Currently takes plavix. Follows with Dr. Petersen at [facility]. Last OV 07/2023 Abraham has a hx of Alzheimers dementia Abraham has undergone prior endoscopy. Last EGD &colonoscopy 04/2017 with At [facility] for anemia Impression: -Findings suggest upper gastritis clopidogrel and aspirin and potassium supplements -Left-sided diverticulosis but no evidence of diverticular bleed -Internal hemorrhoid no evidence of bleeding Small Bowel Capsule 06/2018 IMPRESSION: Duodenal and ileal bleeding CURRENT MEDICATIONS Current Outpatient Medications Medication Sig blood sugar diagnostic (BLOOD GLUCOSE TEST) test strip Test blood sugar(s) 2 times daily. Dx: Type 2 DM - Controlled E11.9 Insulin: Yes allopurinol (ZYLOPRIM) 100 mg tablet Take 1 tablet by mouth once daily. insulin glargine (BASAGLAR KWIKPEN U-100 INSULIN) 100 unit/mL (3 mL) Inject 10 Units subcutaneously daily at bedtime. losartan (COZAAR) 50 mg tablet Take 0.5 tablets by mouth once daily. clopidogrel (PLAVIX) 75 mg tablet Take 1 tablet by mouth once daily. amLODIPine (NORVASC) 10 mg tablet Take 1 tablet by mouth once daily. In the evening carvedilol (COREG) 25 mg tablet Take 1 tablet by mouth two times a day. isosorbide mononitrate ER (IMDUR) 30 mg 24 hr tablet Take 1 tablet by mouth once daily. blood sugar diagnostic (BLOOD GLUCOSE TEST) test strip DM2, controlled. Use once daily to test blood sugar in the morning blood sugar diagnostic (BLOOD GLUCOSE TEST) test strip 1 Strip three times daily. Test blood sugar(s)3 times daily. Dx: Type 2 DM - Uncontrolled, E11.65 Insulin: Yes CRANBERRY Insulin Kerby, Disposable, (BD ULTRA-FINE BENNY PEN NEEDLE) 32 gauge x 5/32 Use once daily with Lantus as directed diclofenac sodium (VOLTAREN) 1 % topical gel Apply 2 g to affected area four times daily. flaxseed oil (OMEGA 3 ORAL) Take by mouth. hydrocortisone 2.5 % cream Apply 1 application to affected area twice daily. Location: face ferrous sulfate 325 mg (65 mg iron) tablet Take 325 mg by mouth two times a day. Taking 1 every other day cetirizine HCl (ZYRTEC) 10 mg chewable tablet Take 10 mg by mouth once daily. cholecalciferol (VITAMIN D3) 5,000 unit tab Take 5,000 Units by mouth twice daily. Blood-Glucose Meter (FREESTYLE LITE METER) monitoring kit 1 Each as directed. Lancets lancets Use as instructed furosemide (LASIX) 40 mg tablet Take 1 tablet by mouth once daily. (Patient taking differently: Take 40 mg by mouth once daily. PRN) potassium chloride (KLOR-CON 10) 10 mEq tablet Take 1 tablet by mouth once daily. triamcinolone acetonide (KENALOG) 0.1 % cream Apply 1 application to affected area twice daily as needed (rash). Apply sparingly to area for rash/itching. CHOLECALCIFEROL, VITAMIN D3, (VITAMIN D3 ORAL) Take 600 mg by mouth once daily. coenzyme Q10 (COENZYME Q-10) 100 mg cap capsule Take 1 capsule by mouth. ONE DAILY MULTI-VITAMIN ORAL TAB Take one(1) tablet daily. CALTRATE-600 PLUS VITAMIN D3 600 MG-200 UNIT ORAL TAB TAKE TWO TABLETS DAILY. peg 3350-Electrolytes (GOLYTELY) 236-22.74-6.74 -5.86 gram suspension Take 4,000 mL by mouth one time only for 1 dose. Refer to printed prep instructions from your provider. Current Facility-Administered Medications Medication Dose Route Frequency perflutren lipid microspheres 1.3 mL in NaCl (PF) 0.9% 10 mL injection (DEFINITY) INTRAVENOUS DIRECTED PRN sodium chloride 0.9 % (flush) 10 mL (BD POSIFLUSH) 10 mL INTRAVENOUS DIRECTED PRN ALLERGIES: Atorvastatin, Crestor [Rosuvastatin Calcium], Glucosamine, Motrin [Ibuprofen], Pravastatin, and Mpsekpw-Aia-Uig Reductase Inhibitors PAST MEDICAL HISTORY 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 09/2015 4.15 cm Acute gastritis without mention of hemorrhage 04/26/2017 EGD by [facility] care planning 03/24/2022 angelo Matamoros can help with medical decision making AMI (acute myocardial infarction) (HCC) 07/03/2013 Carotid atherosclerosis 05/2014 CKD stage G3b/A2, GFR 30-44 and albumin creatinine ratio 30-299 mg/g (HCC) AVOID NEPHROTOXIC MEDICATIONS Diabetes mellitus type 2, uncontrolled, without complications Diaphragmatic hernia without mention of obstruction or gangrene Diverticulosis of colon (without mention of hemorrhage) 04/26/2017 colonoscopy by [facility] Esophagitis Generalized osteoarthrosis, unspecified site Internal hemorrhoid 04/26/2017 colonoscopy by [facility] Iron deficiency anemia Malignant neoplasm of prostate (HCC) Other and unspecified hyperlipidemia Unspecified cardiovascular disease 1994 CABG Unspecified constipation 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 Paduga CORONARY ENDARTERCOMY OPEN ANY METHOD 07/03/2013 Angioplasty Xience stent to L circumflex EGD 04/26/2017 [facility] Dr. Nolan Triana EGD TRANSORAL BIOPSY SINGLE/MULTIPLE 07/10/07 PAST SURGICAL HISTORY OF 01/26/08 stent placement ramus and prox ramus PAST SURGICAL HISTORY OF heart stents PROSTATECTOMY PERINEAL RADICAL 2000 Prostatectomy, radical- Dr. 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 Yousif Triana; next screening colonoscopy in 10yrs, [facility] UNLISTED DIAGNOSTIC GASTROENTEROLOGY PROCEDURE 06/06/2018 FAMILY HISTORY FAMILY HISTORY Problem Relation Age of Onset Hypertension Father COPD Father Heart Mother SOCIAL HISTORY Social History Tobacco Use Smoking status: Former Current packs/day: 2.00 Average packs/day: 2.0 packs/day for 20.0 years (40.0 ttl pk-yrs) Types: Cigarettes, Pipe, Cigars Smokeless tobacco: Never Tobacco comments: quit in 1987 Vaping Use Vaping status: Never Used Substance Use Topics Alcohol use: Yes Comment: rarely Drug use: No REVIEW OF SYMPTOMS: The review of systems data was entered by the nurse and reviewed by wy Nursing Notes: Sabina Cisneros RN 04/13/2024 3:37 PM Signed Patient was given verbal and written instructions regarding bowel prep. He was instructed to call the office if he has any further questions. He verbalized understanding. PHYSICAL EXAMINATION: General: The patient is 83 year old, male well nourished, well hydrated in no acute distress. The patient is oriented to time, place, and person. VITALS: Blood pressure 116/57, pulse 64, height 172.7 cm (5' 8), weight 73.2 kg (161 lb 6.4 oz), SpO2 96%. Body mass index is 24.54 kg/m . HEENT: Normal cephalic, ataumatic, pupils are equally round, sclera are anicteric, mucous membranes are moist, oropharynx is clear. Neck has no masses, asymmetry or lymphadenopathy. Respiratory: Clear to auscultation and percussion. Normal respiratory excursion and pattern. Cardiac: Examination is regular rate and rhythm. Normal S1/S2 Abdominal exam: Soft, nontender, with no palpable masses. No hepatosplenomegaly. No palpable hernias. Extremities: no clubbing, cyanosis or edema. No adenopathy. LABORATORY VALUES: As Noted RADIOLOGIC STUDIES: As Noted Assessment IMPRESSION: GERD, diarrhea PLAN: I have reviewed my findings with the surgeon. Will plan for upper and lower endoscopy. We discussed the risks and benefits of the planned endoscopy. I have informed the patient that complications can occur including failure to complete the endoscopy and perforation. Abraham had the opportunity to ask questions concerning the planned endoscopy. My staff has also explained the procedure to the patient in understandable terms and has given the patient printed material concerning the procedure. Abraham freely consents to surgery. I plan to use Golytely bowel preparation I have explained to the patient the difference between IV conscious sedation and MAC anesthesia - and I have offered either, according to the patient's wishes. I have explained that with IV conscious sedation there is no anesthesia provider available and therefore there is a limitation of the amount of IV medications that can be given and that the patient may wake up in the middle of the procedure and/or experience pain/discomfort during the procedure. Further discussion was done and the patient was given the opportunity to ask questions and all questions were answered. MAC anesthesia. Abraham was counseled that if there are changes in his/her medical condition, to let the office know if surgery should proceed. If there are changes in patient's medical condition from time of this encounter to the day of the procedure that preclude anesthesia, patient may have procedure cancelled for patient's safety. Diagnoses: (K21.9) Gastroesophageal reflux disease without esophagitis (primary encounter diagnosis) (K52.9) Chronic diarrhea (R10.84) Generalized abdominal pain Consultation requested by Dr. Ragsdale for an opinion regarding diarrhea and geralized abdominal pain. My final recommendations will be communicated back to the requesting physician by way of shared Medical record or letter to requesting physician via US mail. Portions of this documentation were copied and pasted from previous office visit notes in order to provide a cohesive continuity of the history. The note has been reviewed and edited and updated as necessary. Cristela Andersen APRN.DOLPHIN RESEARCHER documented in this encounter [facility] 05-09-2024 Instructions Obdulia Lauren APRN.DOLPHIN RESEARCHER - 05/09/2024 1:53 PM EDT Images from the original note were not included. [facility] PATIENT PREOPERATIVE INSTRUCTIONS Malu Mendoza MD has scheduled you for your procedure at this surgery center: [facility]: [phone] -- [address] [address]. Please read below carefully for your personalized instructions. Dietary Restrictions: - Follow bowel prep instructions: clear liquids need to be stopped 2 hours prior to schedule arrival at facility Medications: Unless instructed differently below, stay on all of your medications until your surgery. If you start any new medications after today's visit, please contact your surgeon. Pre-Surgery Med Instructions Medication Instructions isosorbide mononitrate ER (IMDUR) 30 mg 24 hr tablet Take the day of surgery with a small sip of water clopidogrel (PLAVIX) 75 mg tablet Stop 5 days before surgery blood sugar diagnostic (BLOOD GLUCOSE TEST) test strip allopurinol (ZYLOPRIM) 100 mg tablet Do not take the day of surgery insulin glargine (BASAGLAR KWIKPEN U-100 INSULIN) 100 unit/mL (3 mL) Do not take the day of surgery losartan (COZAAR) 50 mg tablet Do not take the day of surgery amLODIPine (NORVASC) 10 mg tablet Take the day of surgery with a small sip of water carvedilol (COREG) 25 mg tablet Take the day of surgery with a small sip of water blood sugar diagnostic (BLOOD GLUCOSE TEST) test strip blood sugar diagnostic (BLOOD GLUCOSE TEST) test strip Insulin Kerby, Disposable, (BD ULTRA-FINE BENNY PEN NEEDLE) 32 gauge x 5/32 diclofenac sodium (VOLTAREN) 1 % topical gel Do not take the day of surgery flaxseed oil (OMEGA 3 ORAL) Stop 7 days before surgery hydrocortisone 2.5 % cream Do not take the day of surgery ferrous sulfate 325 mg (65 mg iron) tablet Stop 7 days before surgery cetirizine HCl (ZYRTEC) 10 mg chewable tablet IF needed cholecalciferol (VITAMIN D3) 5,000 unit tab Stop 7 days before surgery Blood-Glucose Meter (FREESTYLE LITE METER) monitoring kit Lancets lancets furosemide (LASIX) 40 mg tablet Do not take the day of surgery potassium chloride (KLOR-CON 10) 10 mEq tablet Take the day of surgery with a small sip of water triamcinolone acetonide (KENALOG) 0.1 % cream Do not take the day of surgery CHOLECALCIFEROL, VITAMIN D3, (VITAMIN D3 ORAL) Stop 7 days before surgery coenzyme Q10 (COENZYME Q-10) 100 mg cap capsule Stop 7 days before surgery CALTRATE-600 PLUS VITAMIN D3 600 MG-200 UNIT ORAL TAB Stop 7 days before surgery PLEASE REPLACE PLAVIX WITH ASPIRIN 81MG WHILE HOLDING THE PLAVIX FOR THE UPCOMING PROCEDURE If you take any medications for erectile dysfunction-Cialis (Tadalafil), Levitra, Staxyn (Vardenafil) Viagra (Sildenenafil please do not take these for 48 hours before surgery. If you start any new medications after today's visit, please contact the surgeon's office. Blood Thinning Medications: - Stop NSAIDS (Ibuprofen, Advil, Aleve, Motrin, Celebrex, Mobic, etc.) 7 days before surgery, as directed by your surgeon. - Stop Plavix 5 days before surgery or as directed by physician. - Stop Vitamin E, ALL multi-vitamins, herbals and dietary supplements 7 days before surgery. - You may take Tylenol (Acetaminophen) or any of your pain medications that do not contain aspirin or NSAIDS as needed. Important Reminders: - Candy, mints, and tobacco products are NOT permitted the morning of surgery. - Hearing aids, dentures and glasses may be worn the morning of surgery. - NO jewelry, body piercings, makeup, hairpins or contacts are to be worn the day of surgery. If you develop symptoms such as a fever, cold, or flu, or have other changes to your health within TWO DAYS of scheduled surgery or the morning of surgery, please contact the surgery center above. Personal Belongings: -Please have photo ID and insurance cards. -If you do not have a copy of advance directives on file with us, please bring a copy with you on the day of surgery. - Leave ALL valuables and money at home or with family members. For Outpatient Procedures: - YOU MUST HAVE A RESPONSIBLE MARKET NEWS REPORTER TAKE YOU HOME. A RADIO RECORDER OR FELT CARBONIZER CANNOT BE MADE A RESPONSIBLE MARKET NEWS REPORTER. - We recommend that a responsible person stays with you overnight to take care of you. - You cannot stay in a hotel alone after outpatient surgery. You will not be permitted to have your surgery, if you do not have someone to take care of you. Arrival Time for Surgery: - The Surgery Center or hospital where you are having surgery will call the afternoon before surgery (or Tuesday for Tuesday surgery) with a scheduled arrival time. - If you have not heard by 4 pm, please contact the surgery center above. Please be aware that emergency situations arise, which may delay or change your surgical time. If this happens, we will notify you as soon as possible and regret any inconvenience. If you already have an Advance Directive, please fax a copy to [phone] or email to for it to be added to your chart. If you do not have an Advance Directive, you can find the appropriate form and more information at [email or web address]. We recommend that you complete the Advance Directive form found on the website and bring it with you the day of your surgery. It can be witnessed and scanned into your chart that day. Obdulia Lauren APRN.JAIRON documented in this encounter [facility] 05-09-2024 History and physical note Images from the original note were not included. [facility]est[facility] HISTORY AND PHYSICAL EXAMINATION SERVICE DATE: 05/09/2024 SERVICE TIME: 10:29 AM PRIMARY CARE PHYSICIAN: Samson Ragsdale DO Assessment Patient has the following medical conditions which may affect kendra-operative course: Peripheral neuropathy Assessment: 2/2 DM, no tx Abdominal aortic aneurysm (AAA) without rupture (HCC) Assessment: under surveillance 10/04/2023 abd aorta US AORTA Abdominal aortic aneurysm measuring 4.3cm at mid. 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) Assessment: s/p CABG 1994 and then followed a stent 2007, daily Plavix, received to hold Plavix 5 days and replace with Aspirin 81mg. Following [facility] routinely. Last OV scanned into [facility] 2023 and AC instructions and clearance scanned into epic as well 04/16/2024 Complete atrioventricular block (HCC) Assessment: per PCP note 09/2023 this is stable, but no mention in glove boarder notes of this. Pt has no h/o pacemaker/defibrillator. BENIGN HYPERTENSION Assessment: controlled on rx Last 14 BP Last 14 Encounter BP Readings: Date: BP: 05/09/2024 128/68 04/13/2024 116/57 03/26/2024 120/60 10/04/2023 137/68 09/26/2023 138/64 05/31/2023 122/58 03/23/2023 112/70 11/30/2022 126/62 09/22/2022 110/60 07/28/2022 136/72 03/23/2022 110/70 11/25/2021 136/70 09/15/2021 138/70 06/16/2021 120/60 Hypertensive kidney disease with chronic kidney disease stage IV (HCC) Assessment: Creatinine Date Value Ref Range Status 03/19/2024 2.05 (H) 0.73 - 1.22 mg/dL Final 09/23/2023 2.30 (H) 0.73 - 1.22 mg/dL Final 03/14/2023 2.41 (H) 0.73 - 1.22 mg/dL Final 09/13/2022 2.41 (H) 0.73 - 1.22 mg/dL Final Pure hypercholesterolemia Assessment: c/w statin Carotid atherosclerosis, bilateral Assessment: s/p right carotid endarterectomy, following vascular, last carotid US 09/2023, left ICA 40-59%, right ICA 20-39% and right subclavian artery 50-99% stenosis Diaphragmatic hernia Assessment: hx 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, with long-term current use of insulin (HCC) Assessment: IDDM Hemoglobin A1C (%) Date Value 03/19/2024 6.0 09/09/2021 6.1 Hypercalcemia Assessment: Calcium, Total Date Value Ref Range Status 03/19/2024 9.7 8.5 - 10.2 mg/dL Final Iron deficiency anemia due to chronic blood loss Assessment: Hemoglobin (g/dL) Date Value 03/19/2024 12.5 09/09/2021 13.5 Hematocrit (%) Date Value 03/19/2024 39.3 09/09/2021 42.5 WBC (k/uL) Date Value 03/19/2024 10.63 09/09/2021 9.17 History of prostate cancer Assessment: s/p prostatectomy Gout of multiple sites Assessment: controlled on rx Psoriasis Assessment: rx as needed Dementia in other diseases classified elsewhere, unspecified severity, with mood disturbance (HCC) Assessment: hx Magana Activity Status Index: METS: Walk indoors, such as around the house (1.75 METs) Do light work around the house, such as dusting or washing dishes (2.70 METs) Take care of self; that is eating, dressing, bathing, using the toilet (2.75 METs) DASI Score: 7.2 Patient denies any chest pain or undue shortness of breath with the above physical activity. Clinical Frailty Scale: 4. Apparently vulnerable STOP-Bang Score: Has or is being treated for high blood pressure Patient over 50 years old Male patient Denies snoring loudly Denies feeling tired, fatigued, or sleepy during the daytime Has not been observed to stop breathing or choking/gasping during sleep BMI less than or equal to 35 kg/m^2 Does not have a large neck STOP-Bang Score: 3 [id number] Score: Age: >=75 Sex: male CHF history: No Hypertension history: Yes Stroke/TIA/thromboembolism history: No Vascular disease history: Yes Diabetes history: Yes [id number] Score: 5 ARISCAT Score: Age: >80 Preoperative SpO2: >=96% Respiratory infection in the last month: No Preoperative anemia: No Surgical incision: peripheral Duration of surgery: <2 hrs Emergency procedure: No ARISCAT Score: 16 ANESTHESIA FINDINGS: Intubation History: No history of difficult intubation Significant Anesthesia Considerations: none Airway History: No history of difficult airway I - PHYSICAL EVALUATION AIRWAY Patient intubated: No. Tracheostomy tube not present Mallampati: II. TM distance: >3 FB. Neck ROM: full ROM without neurological symptoms. Mouth opening: adequate. Short neck: no. Thick neck: no Myers present: no Lip Bite Test: I Microretrognathia/Micronagthia/Rec essed Chin: No DENTAL Dental findings: teeth intact. II - ANESTHESIA PLAN Anesthetic Plan: other Beta Amrita Monitoring Plan Post Procedure Analgesic Plan Prepared for Surgery: optimally prepared for surgery. CONSULTS: Patient does not require consults for optimization at this time Planned Anesthetic: other anesthesia choice The Following Tests/Procedures Have Been Initiated: No orders of the defined types were placed in this encounter. REASON FOR VISIT: Abraham Gage is a 83 year old male who is scheduled for EGD/colonoscopy at the request of Dr. Malu Mendoza for consultation. My final recommendation will be communicated back to the requesting physician by way of shared medical record or letter. Subjective The patient has the following: COVID-19 Immunization Status Overdue - Covid-19 Vaccine () Overdue since 04/01/2024 09/26/2023 Postponed until 09/26/2024 by Rama Belcher LPN (Declined at this time) 10/22/2020 Imm Admin: COVID-19 original vaccine, full dose, monovalent (MODERNA) 09/24/2020 Imm Admin: COVID-19 original vaccine, full dose, monovalent (MODERNA) Only the first 3 history entries have been loaded, but more history exists. CHIEF COMPLAINT: Pre-op exam HPI: Abraham Gage is a 83 year old seen for PAC due to scheduled above surgery because of diarrhea/decreased appetite. , Dr. Lillian Andersen HPI: Abraham is a 83 year old male referred for endoscopy. Abraham notes diarrhea x 6 months & decreased appetite. PCP Abraham denies abdominal pain.. Abraham notes diarrhea x 6 mos. Watery? +fluctuance Abraham denies constipation. Abraham notes a change in bowel habits. Abraham denies melena. Abraham denies bright red blood per rectum. Abraham notes hemorrhoids. Abraham notes heartburn- using Tums in excess. Abraham denies dysphagia. Abraham denies a history of ulcers/ peptic ulcer disease. +intermittent nausea Denies family history of colon issues. Abraham has a hx of CAD with stents from 2007. Last stress test 2022 EF of 53%. Abraham follows with [facility] had elective cath 06/2023 due to positive stress test. 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 Currently takes plavix. Follows with Dr. Petersen at [facility]. Last OV 07/2023 Abraham has a hx of Alzheimers dementia Abraham has undergone prior endoscopy. Last EGD &colonoscopy 04/2017 with [facility] for anemia Impression: -Findings suggest upper gastritis clopidogrel and aspirin and potassium supplements -Left-sided diverticulosis but no evidence of diverticular bleed -Internal hemorrhoid no evidence of bleeding Small Bowel Capsule 06/2018 IMPRESSION: Duodenal and ileal bleeding REVIEW OF SYSTEMS: General: No weight loss, malaise or fevers. Neurological: No history of TIA's, stroke, STAMP COLLECTOR tumor, impaired sensorium, hemiplegia, paraplegia or quadraplegia. No neurological symptoms or problems. Respiratory: +former smoker. No history of current cough or dyspnea, or pneumonia in the past 6 weeks. No history of respiratory/pulmonary symptoms or problems. Cardiovascular: Positive for: abdominal aortic aneurysm (under surveillance), anticoagulation therapy, CAD, hyperlipidemia (statin intolerant), hypertension and open heart surgery Patient's last office visit with glove boarderLupe, The following tests and/or procedures were performed: cardiac stents. Negative for: AICD/PPM, angina, arrhythmia, atrial fibrillation, chest pain, CHF, congenital heart defect, DVT/PE, recent [place], murmur/valvular heart disease, PTCA and valve surgery. GI: See HPI. Positive for: abdominal pain (related to HPI) and GERD (otc rx as needed) Negative for: dysphagia, heartburn, hepatitis, irritable bowel syndrome, inflammatory bowel disease, liver disease, nausea, pancreatitis, vomiting and ETOH >2 drinks/day. : Positive for: nephrolithiasis (remote hx) and renal failure. Patient's renal failure is chronic. Negative for: urinary tract infection. Endocrine: Positive for: diabetes mellitus and diabetic neuropathy. Patient's diabetes mellitus is controlled by insulin. Negative for: hypothyroidism. Hematology: Positive for: bruises/bleeds easily and chronic anti-coagulation/platelet meds. Patient is on anti-coagulation/platelet medication(s): Plavix. Negative for: anemia, thrombocytopenia and transfusion of at least 4 units within 72 hours prior to surgery. Oncology: +prostate cancer s/p prostatectomy Psych: No history of psychiatric symptoms or problems. Musculoskeletal: +gout, on rx Positive for: back pain. Skin: +psoriasis, rx as needed 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 09/2015 4.15 cm Acute gastritis without mention of hemorrhage 04/26/2017 EGD by [facility] Advance care planning 03/24/2022 [facility] can help with medical decision making AMI (acute myocardial infarction) (HCC) 07/03/2013 Carotid atherosclerosis 05/2014 CKD stage G3b/A2, GFR 30-44 and albumin creatinine ratio 30-299 mg/g (HCC) AVOID NEPHROTOXIC MEDICATIONS Diabetes mellitus type 2, uncontrolled, without complications Diaphragmatic hernia without mention of obstruction or gangrene Diverticulosis of colon (without mention of hemorrhage) 04/26/2017 colonoscopy by [facility] Esophagitis Generalized osteoarthrosis, unspecified site Internal hemorrhoid 04/26/2017 colonoscopy by [facility] Iron deficiency anemia Malignant neoplasm of prostate (HCC) Other and unspecified hyperlipidemia Unspecified cardiovascular disease 1994 CABG Unspecified constipation 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 Nolan Triana EGD TRANSORAL BIOPSY SINGLE/MULTIPLE 07/10/07 PAST SURGICAL HISTORY OF 01/26/08 stent placement ramus and prox ramus PAST SURGICAL HISTORY OF heart stents PROSTATECTOMY PERINEAL RADICAL 1999 Prostatectomy, radical- Dr. 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 Yousif Triana; next screening colonoscopy in 10yrs, [facility] UNLISTED DIAGNOSTIC GASTROENTEROLOGY PROCEDURE 06/06/2018 FAMILY HISTORY Problem Relation Age of Onset Hypertension Father COPD Father Heart Mother Social History Tobacco Use Smoking status: Former Current packs/day: 2.00 Average packs/day: 2.0 packs/day for 20.0 years (40.0 ttl pk-yrs) Types: Cigarettes, Pipe, Cigars Smokeless tobacco: Never Tobacco comments: quit in 1987 Vaping Use Vaping status: Never Used Substance Use Topics Alcohol use: Yes Comment: rarely Drug use: No Prior to Admission medications as of 05/11/24 1009 Medication Sig Last Dose Taking isosorbide mononitrate ER (IMDUR) 30 mg 24 hr tablet Take 1 tablet by mouth once daily. Taking Yes clopidogrel (PLAVIX) 75 mg tablet Take 1 tablet by mouth once daily. Taking Yes blood sugar diagnostic (BLOOD GLUCOSE TEST) test strip Test blood sugar(s) 2 times daily. Dx: Type 2 DM - Controlled E11.9 Insulin: Yes Taking Yes allopurinol (ZYLOPRIM) 100 mg tablet Take 1 tablet by mouth once daily. Taking Yes insulin glargine (BASAGLAR KWIKPEN U-100 INSULIN) 100 unit/mL (3 mL) Inject 10 Units subcutaneously daily at bedtime. Taking Yes losartan (COZAAR) 50 mg tablet Take 0.5 tablets by mouth once daily. Taking Yes amLODIPine (NORVASC) 10 mg tablet Take 1 tablet by mouth once daily. In the evening Taking Yes carvedilol (COREG) 25 mg tablet Take 1 tablet by mouth two times a day. Taking Yes blood sugar diagnostic (BLOOD GLUCOSE TEST) test strip DM2, controlled. Use once daily to test blood sugar in the morning Taking Yes blood sugar diagnostic (BLOOD GLUCOSE TEST) test strip 1 Strip three times daily. Test blood sugar(s)3 times daily. Dx: Type 2 DM - Uncontrolled, E11.65 Insulin: Yes Taking Yes Insulin Kerby, Disposable, (BD ULTRA-FINE BENNY PEN NEEDLE) 32 gauge x 5/32 Use once daily with Lantus as directed Taking Yes diclofenac sodium (VOLTAREN) 1 % topical gel Apply 2 g to affected area four times daily. Taking Yes flaxseed oil (OMEGA 3 ORAL) Take by mouth. Taking Yes hydrocortisone 2.5 % cream Apply 1 application to affected area twice daily. Location: face Taking Yes ferrous sulfate 325 mg (65 mg iron) tablet Take 325 mg by mouth two times a day. Taking 1 every other day Taking Yes cetirizine HCl (ZYRTEC) 10 mg chewable tablet Take 10 mg by mouth once daily. Taking Yes cholecalciferol (VITAMIN D3) 5,000 unit tab Take 5,000 Units by mouth twice daily. Taking Yes Blood-Glucose Meter (FREESTYLE LITE METER) monitoring kit 1 Each as directed. Taking Yes Lancets lancets Use as instructed Taking Yes furosemide (LASIX) 40 mg tablet Take 1 tablet by mouth once daily. Patient taking differently: Take 40 mg by mouth once daily. PRN Taking Yes potassium chloride (KLOR-CON 10) 10 mEq tablet Take 1 tablet by mouth once daily. Taking Yes triamcinolone acetonide (KENALOG) 0.1 % cream Apply 1 application to affected area twice daily as needed (rash). Apply sparingly to area for rash/itching. Taking Yes CHOLECALCIFEROL, VITAMIN D3, (VITAMIN D3 ORAL) Take 600 mg by mouth once daily. Taking Yes coenzyme Q10 (COENZYME Q-10) 100 mg cap capsule Take 1 capsule by mouth. Taking Yes CALTRATE-600 PLUS VITAMIN D3 600 MG-200 UNIT ORAL TAB TAKE TWO TABLETS DAILY. Taking Yes Medication Comments documented by Colt Crenshaw on 02/29/2008 at 1455. Antiplatelet drugs (eg, ticlopidine, clopidogrel (plavix), aspirin, abciximab, dipyridamole, eptifibatide, tirofiban): May increase risk of bleeding when taken with diclfenac. Beta-blockers(metoprolol): NSAIDs (diclofenac) may decrease the antihypertensive effect of beta-blockers; monitor carefully ALLERGIES Allergen Reactions Atorvastatin Unknown Crestor [Rosuvastat* Other: See Comments Muscle pain Glucosamine Unknown Nerve pain Motrin [Ibuprofen] Rash Pravastatin Other: See Comments muscle aches [id number]-[id number]-Fjd Red* Other: See Comments myalgia Objective PHYSICAL EXAM: General: alert and oriented (x3) and healthy appearance. Pertinent negatives noted - not distressed. Skin: normal color, no rash or lesions. HEENT: EOM intact and pupils equal round. Pertinent negatives noted - no carotid bruit. Cardiovascular: regular rate and rhythm, normal S1 and S2, no rub, murmurs, or gallop. Respiratory: normal breath sounds, no wheezes or crackles. No chest wall deformity or tenderness. Abdomen: soft. Pertinent negatives noted - not tender. Extremities: no deformity, no edema or tenderness, no joint swelling or clubbing. Neurological: normal cognition and motor skills. Gait normal. No weakness or sensory deficit. PAIN ASSESSMENT: VITALS: BP 128/68 Pulse 62 Temp (Src) 97.7 (Temporal) Resp 18 Ht 5' 8 (1.73m) Wt 163 lb (73.9kg) SpO2 96% BMI 24.79 kg/(m^2). Diagnostic tests reviewed for today's visit: Lab Value Units Date High Low HB 12.5 g/dL 03/19/2024 17.0 13.0 HCT 39.3 % 03/19/2024 51.0 39.0 WBC 10.63 k/uL 03/19/2024 11.00 3.70 PLT 255 k/uL 03/19/2024 400 150 NA 142 mmol/L 03/19/2024 144 136 K 4.3 mmol/L 03/19/2024 5.1 3.7 GLUC 83 mg/dL 03/19/2024 99 74 BUN 25 mg/dL 03/19/2024 24 9 CREAT 2.05 mg/dL 03/19/2024 1.22 0.73 PTSEC No results within date range. INR No results within date range. APTT No results within date range. ALT 10 U/L 03/19/2024 54 10 AST 16 U/L 03/19/2024 40 14 TBILI 0.4 mg/dL 03/19/2024 1.3 0.2 TSH No results within date range. Lab Value Units Date High Low HCGQT No results within date range. UHCG No results within date range. HCG, BODY* No results within date range. Lab Value Units Date High Low ABORHD No results within date range. ABSCREEN No results within date range. Hemoglobin A1C (%) Date Value 03/19/2024 6.0 09/23/2023 6.1 03/14/2023 5.8 09/13/2022 5.9 03/16/2022 6.1 09/09/2021 6.1 06/08/2021 6.0 03/02/2021 6.3 11/24/2020 5.9 09/09/2020 5.9 No results found for this or any previous visit (from the past 8760 hour(s)). Recent Results (from the past 97268 hour(s)) ECHO Collection Time: 03/25/23 1:42 PM Impression CONCLUSIONS: - Exam indication: Shortness of Breath - The left ventricle is normal in size. Left ventricular systolic function is normal. EF = 55 5% (2D biplane) Grade I left ventricular diastolic dysfunction. - The right ventricle is normal in size. Right ventricular systolic function is normal. - There are no significant valvular abnormalities. - Exam was compared with the prior echocardiographic exam performed on 06/14/2005 (Stress). There has been no significant change in left ventricular systolic function. * * * Final * * * Instructions Given to Patient: Instructions located in the after visit summary. Patient given verbal and written preop instructions and voices comprehension and compliance. SIGNATURE: Obdulia Lauren APRN.CNP PATIENT NAME: Abraham Gage DATE: May 09, 2024 TIME: 1:46 PM PAGER/CONTACT #: [facility] 05-09-2024 History and physical note Images from the original note were not included. [facility] HISTORY AND PHYSICAL EXAMINATION SERVICE DATE: 05/09/2024 SERVICE TIME: 10:29 AM PRIMARY CARE PHYSICIAN: Samson Ragsdale DO Assessment Patient has the following medical conditions which may affect kendra-operative course: Peripheral neuropathy Assessment: 2/2 DM, no tx Abdominal aortic aneurysm (AAA) without rupture (HCC) Assessment: under surveillance 10/04/2023 abd aorta US AORTA Abdominal aortic aneurysm measuring 4.3cm at mid. 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) Assessment: s/p CABG 1994 and then followed a stent 2007, daily Plavix, received to hold Plavix 5 days and replace with Aspirin 81mg. [facility]. Last OV scanned into [facility] 2023 and AC instructions and clearance scanned into [facility] as well 04/16/2024 Complete atrioventricular block (HCC) Assessment: per PCP note 09/2023 this is stable, but no mention in glove boarder notes of this. Pt has no h/o pacemaker/defibrillator. BENIGN HYPERTENSION Assessment: controlled on rx Last 14 BP Last 14 Encounter BP Readings: Date: BP: 05/09/2024 128/68 04/13/2024 116/57 03/26/2024 120/60 10/04/2023 137/68 09/26/2023 138/64 05/31/2023 122/58 03/23/2023 112/70 11/30/2022 126/62 09/22/2022 110/60 07/28/2022 136/72 03/23/2022 110/70 11/25/2021 136/70 09/15/2021 138/70 06/16/2021 120/60 Hypertensive kidney disease with chronic kidney disease stage IV (HCC) Assessment: Creatinine Date Value Ref Range Status 03/19/2024 2.05 (H) 0.73 - 1.22 mg/dL Final 09/23/2023 2.30 (H) 0.73 - 1.22 mg/dL Final 03/14/2023 2.41 (H) 0.73 - 1.22 mg/dL Final 09/13/2022 2.41 (H) 0.73 - 1.22 mg/dL Final Pure hypercholesterolemia Assessment: c/w statin Carotid atherosclerosis, bilateral Assessment: s/p right carotid endarterectomy, following vascular, last carotid US 09/2023, left ICA 40-59%, right ICA 20-39% and right subclavian artery 50-99% stenosis Diaphragmatic hernia Assessment: hx 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, with long-term current use of insulin (HCC) Assessment: IDDM Hemoglobin A1C (%) Date Value 03/19/2024 6.0 09/09/2021 6.1 Hypercalcemia Assessment: Calcium, Total Date Value Ref Range Status 03/19/2024 9.7 8.5 - 10.2 mg/dL Final Iron deficiency anemia due to chronic blood loss Assessment: Hemoglobin (g/dL) Date Value 03/19/2024 12.5 09/09/2021 13.5 Hematocrit (%) Date Value 03/19/2024 39.3 09/09/2021 42.5 WBC (k/uL) Date Value 03/19/2024 10.63 09/09/2021 9.17 History of prostate cancer Assessment: s/p prostatectomy Gout of multiple sites Assessment: controlled on rx Psoriasis Assessment: rx as needed Dementia in other diseases classified elsewhere, unspecified severity, with mood disturbance (HCC) Assessment: hx Magana Activity Status Index: METS: Walk indoors, such as around the house (1.75 METs) Do light work around the house, such as dusting or washing dishes (2.70 METs) Take care of self; that is eating, dressing, bathing, using the toilet (2.75 METs) DASI Score: 7.2 Patient denies any chest pain or undue shortness of breath with the above physical activity. Clinical Frailty Scale: 4. Apparently vulnerable STOP-Bang Score: Has or is being treated for high blood pressure Patient over 50 years old Male patient Denies snoring loudly Denies feeling tired, fatigued, or sleepy during the daytime Has not been observed to stop breathing or choking/gasping during sleep BMI less than or equal to 35 kg/m^2 Does not have a large neck STOP-Bang Score: 3 [id number] Score: Age: >=75 Sex: male CHF history: No Hypertension history: Yes Stroke/TIA/thromboembolism history: No Vascular disease history: Yes Diabetes history: Yes [id number] Score: 5 ARISCAT Score: Age: >80 Preoperative SpO2: >=96% Respiratory infection in the last month: No Preoperative anemia: No Surgical incision: peripheral Duration of surgery: <2 hrs Emergency procedure: No ARISCAT Score: 16 ANESTHESIA FINDINGS: Intubation History: No history of difficult intubation Significant Anesthesia Considerations: none Airway History: No history of difficult airway I - PHYSICAL EVALUATION AIRWAY Patient intubated: No. Tracheostomy tube not present Mallampati: II. TM distance: >3 FB. Neck ROM: full ROM without neurological symptoms. Mouth opening: adequate. Short neck: no. Thick neck: no Myers present: no Lip Bite Test: I Microretrognathia/Micronagthia/Rec essed Chin: No DENTAL Dental findings: teeth intact. II - ANESTHESIA PLAN Anesthetic Plan: other Beta Amrita Monitoring Plan Post Procedure Analgesic Plan Prepared for Surgery: optimally prepared for surgery. CONSULTS: Patient does not require consults for optimization at this time Planned Anesthetic: other anesthesia choice The Following Tests/Procedures Have Been Initiated: No orders of the defined types were placed in this encounter. REASON FOR VISIT: Abraham Gage is a 83 year old male who is scheduled for EGD/colonoscopy at the request of Dr. Malu Mendoza for consultation. My final recommendation will be communicated back to the requesting physician by way of shared medical record or letter. Subjective The patient has the following: COVID-19 Immunization Status Overdue - Covid-19 Vaccine () Overdue since 04/01/2024 09/26/2023 Postponed until 09/26/2024 by Rama Belcher LPN (Declined at this time) 10/22/2020 Imm Admin: COVID-19 original vaccine, full dose, monovalent (MODERNA) 09/24/2020 Imm Admin: COVID-19 original vaccine, full dose, monovalent (MODERNA) Only the first 3 history entries have been loaded, but more history exists. CHIEF COMPLAINT: Pre-op exam HPI: Abraham Gage is a 83 year old seen for PAC due to scheduled above surgery because of diarrhea/decreased appetite. , Dr. Lillian Andersen HPI: Abraham is a 83 year old male referred for endoscopy. Abraham notes diarrhea x 6 months & decreased appetite. PCP Abraham denies abdominal pain.. Abraham notes diarrhea x 6 mos. Watery? +fluctuance Abraham denies constipation. Abraham notes a change in bowel habits. Abraham denies melena. Abraham denies bright red blood per rectum. Abraham notes hemorrhoids. Abraham notes heartburn- using Tums in excess. Abraham denies dysphagia. Abraham denies a history of ulcers/ peptic ulcer disease. +intermittent nausea Denies family history of colon issues. Abraham has a hx of CAD with stents from 2007. Last stress test 2022 EF of 53%. Abraham follows with [facility] had elective cath 06/2023 due to positive stress test. 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 Currently takes plavix. Follows with Dr. Petersen at [facility]. Last OV 07/2023 Abraham has a hx of Alzheimers dementia Abraham has undergone prior endoscopy. Last EGD &colonoscopy 04/2017 with [facility] for anemia Impression: -Findings suggest upper gastritis clopidogrel and aspirin and potassium supplements -Left-sided diverticulosis but no evidence of diverticular bleed -Internal hemorrhoid no evidence of bleeding Small Bowel Capsule 06/2018 IMPRESSION: Duodenal and ileal bleeding REVIEW OF SYSTEMS: General: No weight loss, malaise or fevers. Neurological: No history of TIA's, stroke, STAMP COLLECTOR tumor, impaired sensorium, hemiplegia, paraplegia or quadraplegia. No neurological symptoms or problems. Respiratory: +former smoker. No history of current cough or dyspnea, or pneumonia in the past 6 weeks. No history of respiratory/pulmonary symptoms or problems. Cardiovascular: Positive for: abdominal aortic aneurysm (under surveillance), anticoagulation therapy, CAD, hyperlipidemia (statin intolerant), hypertension and open heart surgery Patient's last office visit with glove boarderLu[facility], The following tests and/or procedures were performed: cardiac stents. Negative for: AICD/PPM, angina, arrhythmia, atrial fibrillation, chest pain, CHF, congenital heart defect, DVT/PE, recent [place], murmur/valvular heart disease, PTCA and valve surgery. GI: See HPI. Positive for: abdominal pain (related to HPI) and GERD (otc rx as needed) Negative for: dysphagia, heartburn, hepatitis, irritable bowel syndrome, inflammatory bowel disease, liver disease, nausea, pancreatitis, vomiting and ETOH >2 drinks/day. : Positive for: nephrolithiasis (remote hx) and renal failure. Patient's renal failure is chronic. Negative for: urinary tract infection. Endocrine: Positive for: diabetes mellitus and diabetic neuropathy. Patient's diabetes mellitus is controlled by insulin. Negative for: hypothyroidism. Hematology: Positive for: bruises/bleeds easily and chronic anti-coagulation/platelet meds. Patient is on anti-coagulation/platelet medication(s): Plavix. Negative for: anemia, thrombocytopenia and transfusion of at least 4 units within 72 hours prior to surgery. Oncology: +prostate cancer s/p prostatectomy Psych: No history of psychiatric symptoms or problems. Musculoskeletal: +gout, on rx Positive for: back pain. Skin: +psoriasis, rx as needed 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 09/2015 4.15 cm Acute gastritis without mention of hemorrhage 04/26/2017 EGD by [facility] planning 03/24/2022 angelo Matamoros can help with medical decision making AMI (acute myocardial infarction) (HCC) 07/03/2013 Carotid atherosclerosis 05/2014 CKD stage G3b/A2, GFR 30-44 and albumin creatinine ratio 30-299 mg/g (HCC) AVOID NEPHROTOXIC MEDICATIONS Diabetes mellitus type 2, uncontrolled, without complications Diaphragmatic hernia without mention of obstruction or gangrene Diverticulosis of colon (without mention of hemorrhage) 04/26/2017 colonoscopy by [facility] Esophagitis Generalized osteoarthrosis, unspecified site Internal hemorrhoid 04/26/2017 colonoscopy by [facility] Iron deficiency anemia Malignant neoplasm of prostate (HCC) Other and unspecified hyperlipidemia Unspecified cardiovascular disease 1994 CABG Unspecified constipation 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 Nolan Triana EGD TRANSORAL BIOPSY SINGLE/MULTIPLE 07/10/07 PAST SURGICAL HISTORY OF 01/26/08 stent placement ramus and prox ramus PAST SURGICAL HISTORY OF heart stents PROSTATECTOMY PERINEAL RADICAL 1999 Prostatectomy, radical- Dr. 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 Yousif Triana; next screening colonoscopy in 10yrs, [facility] UNLISTED DIAGNOSTIC GASTROENTEROLOGY PROCEDURE 06/06/2018 FAMILY HISTORY Problem Relation Age of Onset Hypertension Father COPD Father Heart Mother Social History Tobacco Use Smoking status: Former Current packs/day: 2.00 Average packs/day: 2.0 packs/day for 20.0 years (40.0 ttl pk-yrs) Types: Cigarettes, Pipe, Cigars Smokeless tobacco: Never Tobacco comments: quit in 1987 Vaping Use Vaping status: Never Used Substance Use Topics Alcohol use: Yes Comment: rarely Drug use: No Prior to Admission medications as of 05/11/24 1009 Medication Sig Last Dose Taking isosorbide mononitrate ER (IMDUR) 30 mg 24 hr tablet Take 1 tablet by mouth once daily. Taking Yes clopidogrel (PLAVIX) 75 mg tablet Take 1 tablet by mouth once daily. Taking Yes blood sugar diagnostic (BLOOD GLUCOSE TEST) test strip Test blood sugar(s) 2 times daily. Dx: Type 2 DM - Controlled E11.9 Insulin: Yes Taking Yes allopurinol (ZYLOPRIM) 100 mg tablet Take 1 tablet by mouth once daily. Taking Yes insulin glargine (BASAGLAR KWIKPEN U-100 INSULIN) 100 unit/mL (3 mL) Inject 10 Units subcutaneously daily at bedtime. Taking Yes losartan (COZAAR) 50 mg tablet Take 0.5 tablets by mouth once daily. Taking Yes amLODIPine (NORVASC) 10 mg tablet Take 1 tablet by mouth once daily. In the evening Taking Yes carvedilol (COREG) 25 mg tablet Take 1 tablet by mouth two times a day. Taking Yes blood sugar diagnostic (BLOOD GLUCOSE TEST) test strip DM2, controlled. Use once daily to test blood sugar in the morning Taking Yes blood sugar diagnostic (BLOOD GLUCOSE TEST) test strip 1 Strip three times daily. Test blood sugar(s)3 times daily. Dx: Type 2 DM - Uncontrolled, E11.65 Insulin: Yes Taking Yes Insulin Kerby, Disposable, (BD ULTRA-FINE BENNY PEN NEEDLE) 32 gauge x 5/32 Use once daily with Lantus as directed Taking Yes diclofenac sodium (VOLTAREN) 1 % topical gel Apply 2 g to affected area four times daily. Taking Yes flaxseed oil (OMEGA 3 ORAL) Take by mouth. Taking Yes hydrocortisone 2.5 % cream Apply 1 application to affected area twice daily. Location: face Taking Yes ferrous sulfate 325 mg (65 mg iron) tablet Take 325 mg by mouth two times a day. Taking 1 every other day Taking Yes cetirizine HCl (ZYRTEC) 10 mg chewable tablet Take 10 mg by mouth once daily. Taking Yes cholecalciferol (VITAMIN D3) 5,000 unit tab Take 5,000 Units by mouth twice daily. Taking Yes Blood-Glucose Meter (FREESTYLE LITE METER) monitoring kit 1 Each as directed. Taking Yes Lancets lancets Use as instructed Taking Yes furosemide (LASIX) 40 mg tablet Take 1 tablet by mouth once daily. Patient taking differently: Take 40 mg by mouth once daily. PRN Taking Yes potassium chloride (KLOR-CON 10) 10 mEq tablet Take 1 tablet by mouth once daily. Taking Yes triamcinolone acetonide (KENALOG) 0.1 % cream Apply 1 application to affected area twice daily as needed (rash). Apply sparingly to area for rash/itching. Taking Yes CHOLECALCIFEROL, VITAMIN D3, (VITAMIN D3 ORAL) Take 600 mg by mouth once daily. Taking Yes coenzyme Q10 (COENZYME Q-10) 100 mg cap capsule Take 1 capsule by mouth. Taking Yes CALTRATE-600 PLUS VITAMIN D3 600 MG-200 UNIT ORAL TAB TAKE TWO TABLETS DAILY. Taking Yes Medication Comments documented by Colt Crenshaw on 02/29/2008 at 4115. Antiplatelet drugs (eg, ticlopidine, clopidogrel (plavix), aspirin, abciximab, dipyridamole, eptifibatide, tirofiban): May increase risk of bleeding when taken with diclfenac. Beta-blockers(metoprolol): NSAIDs (diclofenac) may decrease the antihypertensive effect of beta-blockers; monitor carefully ALLERGIES Allergen Reactions Atorvastatin Unknown Crestor [Rosuvastat* Other: See Comments Muscle pain Glucosamine Unknown Nerve pain Motrin [Ibuprofen] Rash Pravastatin Other: See Comments muscle aches [id number] Red* Other: See Comments myalgia Objective PHYSICAL EXAM: General: alert and oriented (x3) and healthy appearance. Pertinent negatives noted - not distressed. Skin: normal color, no rash or lesions. HEENT: EOM intact and pupils equal round. Pertinent negatives noted - no carotid bruit. Cardiovascular: regular rate and rhythm, normal S1 and S2, no rub, murmurs, or gallop. Respiratory: normal breath sounds, no wheezes or crackles. No chest wall deformity or tenderness. Abdomen: soft. Pertinent negatives noted - not tender. Extremities: no deformity, no edema or tenderness, no joint swelling or clubbing. Neurological: normal cognition and motor skills. Gait normal. No weakness or sensory deficit. PAIN ASSESSMENT: VITALS: BP 128/68 Pulse 62 Temp (Src) 97.7 (Temporal) Resp 18 Ht 5' 8 (1.73m) Wt 163 lb (73.9kg) SpO2 96% BMI 24.79 kg/(m^2). Diagnostic tests reviewed for today's visit: Lab Value Units Date High Low HB 12.5 g/dL 03/19/2024 17.0 13.0 HCT 39.3 % 03/19/2024 51.0 39.0 WBC 10.63 k/uL 03/19/2024 11.00 3.70 PLT 255 k/uL 03/19/2024 400 150 NA 142 mmol/L 03/19/2024 144 136 K 4.3 mmol/L 03/19/2024 5.1 3.7 GLUC 83 mg/dL 03/19/2024 99 74 BUN 25 mg/dL 03/19/2024 24 9 CREAT 2.05 mg/dL 03/19/2024 1.22 0.73 PTSEC No results within date range. INR No results within date range. APTT No results within date range. ALT 10 U/L 03/19/2024 54 10 AST 16 U/L 03/19/2024 40 14 TBILI 0.4 mg/dL 03/19/2024 1.3 0.2 TSH No results within date range. Lab Value Units Date High Low HCGQT No results within date range. UHCG No results within date range. HCG, BODY* No results within date range. Lab Value Units Date High Low ABORHD No results within date range. ABSCREEN No results within date range. Hemoglobin A1C (%) Date Value 03/19/2024 6.0 09/23/2023 6.1 03/14/2023 5.8 09/13/2022 5.9 03/16/2022 6.1 09/09/2021 6.1 06/08/2021 6.0 03/02/2021 6.3 11/24/2020 5.9 09/09/2020 5.9 No results found for this or any previous visit (from the past 8760 hour(s)). Recent Results (from the past 96564 hour(s)) ECHO Collection Time: 03/25/23 1:42 PM Impression CONCLUSIONS: - Exam indication: Shortness of Breath - The left ventricle is normal in size. Left ventricular systolic function is normal. EF = 55 5% (2D biplane) Grade I left ventricular diastolic dysfunction. - The right ventricle is normal in size. Right ventricular systolic function is normal. - There are no significant valvular abnormalities. - Exam was compared with the prior echocardiographic exam performed on 06/14/2005 (Stress). There has been no significant change in left ventricular systolic function. * * * Final * * * Instructions Given to Patient: Instructions located in the after visit summary. Patient given verbal and written preop instructions and voices comprehension and compliance. SIGNATURE: Obdulia Lauren APRN.CNP PATIENT NAME: Abraham Gage DATE: May 09, 2024 TIME: 1:46 PM PAGER/CONTACT #: documented in this encounter [facility] 04-27-2024 Telephone encounter Note Prescription Refill Information The patient has been identified by name and date of : Yes Caregiver verified no other encounters exist for this prescription request: Yes Caregiver confirmed with patient/requestor that no other refills are due, in the near future, with this provider at this time: Yes The last office visit in the department: 03/26/24 Does the patient have a future office visit with this provider/department: Yes Requested Prescriptions Pending Prescriptions Disp Refills isosorbide mononitrate ER (IMDUR) 30 mg 24 hr tablet 90 tablet 3 Sig: Take 1 tablet by mouth once daily. clopidogrel (PLAVIX) 75 mg tablet 90 tablet 3 Sig: Take 1 tablet by mouth once daily. Obdulia Khan LPN April 27, 2024 2:09 PM [facility] 04-27-2024 Miscellaneous Notes Prescription Refill Information The patient has been identified by name and date of : Yes Caregiver verified no other encounters exist for this prescription request: Yes Caregiver confirmed with patient/requestor that no other refills are due, in the near future, with this provider at this time: Yes The last office visit in the department: 03/26/24 Does the patient have a future office visit with this provider/department: Yes Requested Prescriptions Pending Prescriptions Disp Refills isosorbide mononitrate ER (IMDUR) 30 mg 24 hr tablet 90 tablet 3 Sig: Take 1 tablet by mouth once daily. clopidogrel (PLAVIX) 75 mg tablet 90 tablet 3 Sig: Take 1 tablet by mouth once daily. Obdulia Khan LPN April 27, 2024 2:09 PM documented in this encounter [facility] 04-24-2024 Telephone encounter Note Cardiac clearance received. Patient cleared to proceed and should HOLD Plavix 7 days prior to scopes. Per Dr. Palomo Petersen recommends patient to remain on ASA 81 mg uninterrupted. See scanned doc (also attached to encounter) Jaja Marshall [employer]opedic Brace Maker [facility] 04-24-2024 Miscellaneous Notes Cardiac clearance received. Patient cleared to proceed and should HOLD Plavix 7 days prior to scopes. Per Dr. Palomo Petersen recommends patient to remain on ASA 81 mg uninterrupted. See scanned doc (also attached to encounter) Jaja Marshall [employer] Br[employer] Maker Per Cristela Andersen patient to seek cardiac clearance prior to proceeding with scopes on 05/23/[address] Reji Whalen Patient follows [facility]pe cl[facility] Petersen. Clearance form faxed to their office at [phone] (see scanned doc for fax confirmation) Patient aware of all steps needed to be completed prior to proceeding and voiced understanding Jaja Marshall [employer]opedic Brace Maker documented in this encounter [facility] 04-16-2024 Telephone encounter Note Per Cristela Andersen patient to seek cardiac clearance prior to proceeding with scopes on 05/23/[address] Reji Whalen Patient follows Lupe clinton Lowryraym[facility] Petersen. Clearance form faxed to their office at [phone] (see scanned doc for fax confirmation) Patient aware of all steps needed to be completed prior to proceeding and voiced understanding Jaja Marshall [employer] [facility] 04-13-2024 Nurse Note Patient was given verbal and written instructions regarding bowel prep. He was instructed to call the office if he has any further questions. He verbalized understanding. [facility] 04-13-2024 Nurse Note Patient was given verbal and written instructions regarding bowel prep. He was instructed to call the office if he has any further questions. He verbalized understanding. documented in this encounter [facility] 04-13-2024 History of Present illness Narrative HISTORY AND PHYSICAL Abraham Gage : 1940 REFERRING PHYSICIAN: Samson Ragsdale [address] [facility] [address] CHIEF COMPLAINT: Patient presents with: Consult: Colonoscopy HPI: Abraham is a 83 year old male referred for endoscopy. Abraham notes diarrhea x 6 months & decreased appetite. PCP Abraham denies abdominal pain.. Abraham notes diarrhea x 6 mos. Watery? +fluctuance Abraham denies constipation. Abraham notes a change in bowel habits. Abraham denies melena. Abraham denies bright red blood per rectum. Abraham notes hemorrhoids. Abraham notes heartburn- using Tums in excess. Abraham denies dysphagia. Abraham denies a history of ulcers/ peptic ulcer disease. +intermittent nausea Denies family history of colon issues. Abraham has a hx of CAD with stents from 2007. Last stress test 2022 EF of 53%. Abraham follows with [facility] had elective cath 06/2023 due to positive stress test. 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 Currently takes plavix. Follows with Dr. Petersen at [facility]. Last OV 07/2023 Abraham has a hx of Alzheimers dementia Abraham has undergone prior endoscopy. Last EGD &colonoscopy 04/2017 with At [facility] for anemia Impression: -Findings suggest upper gastritis clopidogrel and aspirin and potassium supplements -Left-sided diverticulosis but no evidence of diverticular bleed -Internal hemorrhoid no evidence of bleeding Small Bowel Capsule 06/2018 IMPRESSION: Duodenal and ileal bleeding Current Outpatient Medications Medication Sig blood sugar diagnostic (BLOOD GLUCOSE TEST) test strip Test blood sugar(s) 2 times daily. Dx: Type 2 DM - Controlled E11.9 Insulin: Yes allopurinol (ZYLOPRIM) 100 mg tablet Take 1 tablet by mouth once daily. insulin glargine (BASAGLAR KWIKPEN U-100 INSULIN) 100 unit/mL (3 mL) Inject 10 Units subcutaneously daily at bedtime. losartan (COZAAR) 50 mg tablet Take 0.5 tablets by mouth once daily. clopidogrel (PLAVIX) 75 mg tablet Take 1 tablet by mouth once daily. amLODIPine (NORVASC) 10 mg tablet Take 1 tablet by mouth once daily. In the evening carvedilol (COREG) 25 mg tablet Take 1 tablet by mouth two times a day. isosorbide mononitrate ER (IMDUR) 30 mg 24 hr tablet Take 1 tablet by mouth once daily. blood sugar diagnostic (BLOOD GLUCOSE TEST) test strip DM2, controlled. Use once daily to test blood sugar in the morning blood sugar diagnostic (BLOOD GLUCOSE TEST) test strip 1 Strip three times daily. Test blood sugar(s)3 times daily. Dx: Type 2 DM - Uncontrolled, E11.65 Insulin: Yes CRANBERRY Insulin Kerby, Disposable, (BD ULTRA-FINE BENNY PEN NEEDLE) 32 gauge x / Use once daily with Lantus as directed diclofenac sodium (VOLTAREN) 1 % topical gel Apply 2 g to affected area four times daily. flaxseed oil (OMEGA 3 ORAL) Take by mouth. hydrocortisone 2.5 % cream Apply 1 application to affected area twice daily. Location: face ferrous sulfate 325 mg (65 mg iron) tablet Take 325 mg by mouth two times a day. Taking 1 every other day cetirizine HCl (ZYRTEC) 10 mg chewable tablet Take 10 mg by mouth once daily. cholecalciferol (VITAMIN D3) 5,000 unit tab Take 5,000 Units by mouth twice daily. Blood-Glucose Meter (FREESTYLE LITE METER) monitoring kit 1 Each as directed. Lancets lancets Use as instructed furosemide (LASIX) 40 mg tablet Take 1 tablet by mouth once daily. (Patient taking differently: Take 40 mg by mouth once daily. PRN) potassium chloride (KLOR-CON 10) 10 mEq tablet Take 1 tablet by mouth once daily. triamcinolone acetonide (KENALOG) 0.1 % cream Apply 1 application to affected area twice daily as needed (rash). Apply sparingly to area for rash/itching. CHOLECALCIFEROL, VITAMIN D3, (VITAMIN D3 ORAL) Take 600 mg by mouth once daily. coenzyme Q10 (COENZYME Q-10) 100 mg cap capsule Take 1 capsule by mouth. ONE DAILY MULTI-VITAMIN ORAL TAB Take one(1) tablet daily. CALTRATE-600 PLUS VITAMIN D3 600 MG-200 UNIT ORAL TAB TAKE TWO TABLETS DAILY. peg 3350-Electrolytes (GOLYTELY) 236-22.74-6.74 -5.86 gram suspension Take 4,000 mL by mouth one time only for 1 dose. Refer to printed prep instructions from your provider. 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 09/2015 4.15 cm Acute gastritis without mention of hemorrhage 04/26/2017 EGD by [facility] Advance care planning 03/24/2022 angelo Matamoros can help with medical decision making AMI (acute myocardial infarction) (HCC) 07/03/2013 Carotid atherosclerosis 05/2014 CKD stage G3b/A2, GFR 30-44 and albumin creatinine ratio 30-299 mg/g (HCC) AVOID NEPHROTOXIC MEDICATIONS Diabetes mellitus type 2, uncontrolled, without complications Diaphragmatic hernia without mention of obstruction or gangrene Diverticulosis of colon (without mention of hemorrhage) 04/26/2017 colonoscopy by [facility] Esophagitis Generalized osteoarthrosis, unspecified site Internal hemorrhoid 04/26/2017 colonoscopy by [facility] Iron deficiency anemia Malignant neoplasm of prostate (HCC) Other and unspecified hyperlipidemia Unspecified cardiovascular disease 1994 CABG Unspecified constipation 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 CORONARY ENDARTERCOMY OPEN ANY METHOD 07/03/2013 Angioplasty Xience stent to L circumflex EGD 04/26/2017 [facility] Dr. Nolan Triana EGD TRANSORAL BIOPSY SINGLE/MULTIPLE 07/10/07 PAST SURGICAL HISTORY OF 01/26/08 stent placement ramus and prox ramus PAST SURGICAL HISTORY OF heart stents PROSTATECTOMY PERINEAL RADICAL 1999 Prostatectomy, radical- Dr. 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 Yousif Triana; next screening colonoscopy in 10yrs, [facility] UNLISTED DIAGNOSTIC GASTROENTEROLOGY PROCEDURE 06/06/2018 FAMILY HISTORY Problem Relation Age of Onset Hypertension Father COPD Father Heart Mother Social History Tobacco Use Smoking status: Former Current packs/day: 2.00 Average packs/day: 2.0 packs/day for 20.0 years (40.0 ttl pk-yrs) Types: Cigarettes, Pipe, Cigars Smokeless tobacco: Never Tobacco comments: quit in 1987 Vaping Use Vaping status: Never Used Substance Use Topics Alcohol use: Yes Comment: rarely Drug use: No REVIEW OF SYMPTOMS: The review of systems data was entered by the nurse and reviewed by me Nursing Notes: Sabina Cisneros RN 04/13/2024 3:37 PM Signed Patient was given verbal and written instructions regarding bowel prep. He was instructed to call the office if he has any further questions. He verbalized understanding. PHYSICAL EXAMINATION: General: The patient is 83 year old, male well nourished, well hydrated in no acute distress. The patient is oriented to time, place, and person. VITALS: Blood pressure 116/57, pulse 64, height 172.7 cm (5' 8), weight 73.2 kg (161 lb 6.4 oz), SpO2 96%. Body mass index is 24.54 kg/m . HEENT: Normal cephalic, ataumatic, pupils are equally round, sclera are anicteric, mucous membranes are moist, oropharynx is clear. Neck has no masses, asymmetry or lymphadenopathy. Respiratory: Clear to auscultation and percussion. Normal respiratory excursion and pattern. Cardiac: Examination is regular rate and rhythm. Normal S1/S2 Abdominal exam: Soft, nontender, with no palpable masses. No hepatosplenomegaly. No palpable hernias. Extremities: no clubbing, cyanosis or edema. No adenopathy. LABORATORY VALUES: As Noted RADIOLOGIC STUDIES: As Noted Assessment IMPRESSION: GERD, diarrhea PLAN: I have reviewed my findings with the surgeon. Will plan for upper and lower endoscopy. We discussed the risks and benefits of the planned endoscopy. I have informed the patient that complications can occur including failure to complete the endoscopy and perforation. Abraham had the opportunity to ask questions concerning the planned endoscopy. My staff has also explained the procedure to the patient in understandable terms and has given the patient printed material concerning the procedure. Abraham freely consents to surgery. I plan to use Golytely bowel preparation I have explained to the patient the difference between IV conscious sedation and MAC anesthesia - and I have offered either, according to the patient's wishes. I have explained that with IV conscious sedation there is no anesthesia provider available and therefore there is a limitation of the amount of IV medications that can be given and that the patient may wake up in the middle of the procedure and/or experience pain/discomfort during the procedure. Further discussion was done and the patient was given the opportunity to ask questions and all questions were answered. MAC anesthesia. Abraham was counseled that if there are changes in his/her medical condition, to let the office know if surgery should proceed. If there are changes in patient's medical condition from time of this encounter to the day of the procedure that preclude anesthesia, patient may have procedure cancelled for patient's safety. Diagnoses: (K21.9) Gastroesophageal reflux disease without esophagitis (primary encounter diagnosis) (K52.9) Chronic diarrhea (R10.84) Generalized abdominal pain Consultation requested by Dr. Ragsdale for an opinion regarding diarrhea and geralized abdominal pain. My final recommendations will be communicated back to the requesting physician by way of shared Medical record or letter to requesting physician via US mail. Portions of this documentation were copied and pasted from previous office visit notes in order to provide a cohesive continuity of the history. The note has been reviewed and edited and updated as necessary. Cristela Andersen APRN.CNP documented in this encounter [facility] 04-13-2024 Note HNO ID: [id number] Author: CRISTELA ANDERSEN APRN.CNP Service: ? Author Type: Nurse Practitioner Type: Progress Notes Filed: 04/16/2024 08:24 Note Text: HISTORY AND PHYSICAL Abraham Gage : 1940 REFERRING PHYSICIAN: Samson Ragsdale [address] [facility] [address] CHIEF COMPLAINT: Patient presents with: Consult: Colonoscopy HPI: Abraham is a 83 year old male referred for endoscopy. Abraham notes diarrhea x 6 months AND decreased appetite. PCP Abraham denies abdominal pain.. Abraham notes diarrhea x 6 mos. Watery? +fluctuance Abraham denies constipation. Abraham notes a change in bowel habits. Abraham denies melena. Abraham denies bright red blood per rectum. Abraham notes hemorrhoids. Abraham notes heartburn- using Tums in excess. Abraham denies dysphagia. Abraham denies a history of ulcers/ peptic ulcer disease. +intermittent nausea Denies family history of colon issues. Abraham has a hx of CAD with stents from 2007. Last stress test 2022 EF of 53%. Abraham follows with [facility] had elective cath 06/2023 due to positive stress test. 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 Currently takes plavix. Follows with Dr. Petersen at [facility]. Last OV 07/2023 Abraham has a hx of Alzheimers dementia Abraham has undergone prior endoscopy. Last EGD ANDcolonoscopy 04/2017 with At [facility] for anemia Impression: -Findings suggest upper gastritis clopidogrel and aspirin and potassium supplements -Left-sided diverticulosis but no evidence of diverticular bleed -Internal hemorrhoid no evidence of bleeding Small Bowel Capsule 06/2018 IMPRESSION: Duodenal and ileal bleeding Current Outpatient Medications Medication Sig blood sugar diagnostic (BLOOD GLUCOSE TEST) test strip Test blood sugar(s) 2 times daily. Dx: Type 2 DM - Controlled E11.9 Insulin: Yes allopurinol (ZYLOPRIM) 100 mg tablet Take 1 tablet by mouth once daily. insulin glargine (BASAGLAR KWIKPEN U-100 INSULIN) 100 unit/mL (3 mL) Inject 10 Units subcutaneously daily at bedtime. losartan (COZAAR) 50 mg tablet Take 0.5 tablets by mouth once daily. clopidogrel (PLAVIX) 75 mg tablet Take 1 tablet by mouth once daily. amLODIPine (NORVASC) 10 mg tablet Take 1 tablet by mouth once daily. In the evening carvedilol (COREG) 25 mg tablet Take 1 tablet by mouth two times a day. isosorbide mononitrate ER (IMDUR) 30 mg 24 hr tablet Take 1 tablet by mouth once daily. blood sugar diagnostic (BLOOD GLUCOSE TEST) test strip DM2, controlled. Use once daily to test blood sugar in the morning blood sugar diagnostic (BLOOD GLUCOSE TEST) test strip 1 Strip three times daily. Test blood sugar(s)3 times daily. Dx: Type 2 DM - Uncontrolled, E11.65 Insulin: Yes CRANBERRY Insulin Kerby, Disposable, (BD ULTRA-FINE BENNY PEN NEEDLE) 32 gauge x 5/32 Use once daily with Lantus as directed diclofenac sodium (VOLTAREN) 1 % topical gel Apply 2 g to affected area four times daily. flaxseed oil (OMEGA 3 ORAL) Take by mouth. hydrocortisone 2.5 % cream Apply 1 application to affected area twice daily. Location: face ferrous sulfate 325 mg (65 mg iron) tablet Take 325 mg by mouth two times a day. Taking 1 every other day cetirizine HCl (ZYRTEC) 10 mg chewable tablet Take 10 mg by mouth once daily. cholecalciferol (VITAMIN D3) 5,000 unit tab Take 5,000 Units by mouth twice daily. Blood-Glucose Meter (FREESTYLE LITE METER) monitoring kit 1 Each as directed. Lancets lancets Use as instructed furosemide (LASIX) 40 mg tablet Take 1 tablet by mouth once daily. (Patient taking differently: Take 40 mg by mouth once daily. PRN) potassium chloride (KLOR-CON 10) 10 mEq tablet Take 1 tablet by mouth once daily. triamcinolone acetonide (KENALOG) 0.1 % cream Apply 1 application to affected area twice daily as needed (rash). Apply sparingly to area for rash/itching. CHOLECALCIFEROL, VITAMIN D3, (VITAMIN D3 ORAL) Take 600 mg by mouth once daily. coenzyme Q10 (COENZYME Q-10) 100 mg cap capsule Take 1 capsule by mouth. ONE DAILY MULTI-VITAMIN ORAL TAB Take one(1) tablet daily. CALTRATE-600 PLUS VITAMIN D3 600 MG-200 UNIT ORAL TAB TAKE TWO TABLETS DAILY. peg 3350-Electrolytes (GOLYTELY) 236-22.74-6.74 -5.86 gram suspension Take 4,000 mL by mouth one time only for 1 dose. Refer to printed prep instructions from your provider. 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 [facility] 04-12-2024 Telephone encounter Note Patient calling regarding lab result related question. Information provided. Lorraine Saravia RN [facility] 04-12-2024 Miscellaneous Notes Patient calling regarding lab result related question. Information provided. Lorraine Saravia RN documented in this encounter [facility] 04-06-2024 Telephone encounter Note Prescription Refill Information The patient has been identified by name and date of : Yes Caregiver verified no other encounters exist for this prescription request: Yes Caregiver confirmed with patient/requestor that no other refills are due, in the near future, with this provider at this time: Yes The last office visit in the department: 03/26/24 Does the patient have a future office visit with this provider/department: Yes Requested Prescriptions Pending Prescriptions Disp Refills blood sugar diagnostic (BLOOD GLUCOSE TEST) test strip 100 Strip 11 Sig: Test blood sugar(s) 2 times daily. Dx: Type 2 DM - Controlled E11.9 Insulin: Yes Obdulia Khan LPN April 06, 2024 12:05 PM [facility] 04-06-2024 Miscellaneous Notes Prescription Refill Information The patient has been identified by name and date of : Yes Caregiver verified no other encounters exist for this prescription request: Yes Caregiver confirmed with patient/requestor that no other refills are due, in the near future, with this provider at this time: Yes The last office visit in the department: 03/26/24 Does the patient have a future office visit with this provider/department: Yes Requested Prescriptions Pending Prescriptions Disp Refills blood sugar diagnostic (BLOOD GLUCOSE TEST) test strip 100 Strip 11 Sig: Test blood sugar(s) 2 times daily. Dx: Type 2 DM - Controlled E11.9 Insulin: Yes Obdulia Khan LPN April 06, 2024 12:05 PM documented in this encounter [facility] 04-03-2024 Telephone encounter Note The patient has been identified by name and date of : Yes Caregiver verified no other encounters exist for this prescription request: Yes Caregiver confirmed with patient/requestor that no other refills are due, in the near future, with this provider at this time: Yes The last office visit in the department: 03/26/2024 Does the patient have a future office visit with this provider/department: Yes 09/26/2024 Requested Prescriptions Pending Prescriptions Disp Refills allopurinol (ZYLOPRIM) 100 mg tablet 90 tablet 3 Sig: Take 1 tablet by mouth once daily. Yu Duncan LPN April 03, 2024 12:32 PM [facility] 04-03-2024 Miscellaneous Notes The patient has been identified by name and date of : Yes Caregiver verified no other encounters exist for this prescription request: Yes Caregiver confirmed with patient/requestor that no other refills are due, in the near future, with this provider at this time: Yes The last office visit in the department: 03/26/2024 Does the patient have a future office visit with this provider/department: Yes 09/26/2024 Requested Prescriptions Pending Prescriptions Disp Refills allopurinol (ZYLOPRIM) 100 mg tablet 90 tablet 3 Sig: Take 1 tablet by mouth once daily. Yu Duncan LPN April 03, 2024 12:32 PM documented in this encounter [facility] 03-26-2024 Note HNO ID: [id number] Author: SAMSON RAGSDALE, DO Service: ? Author Type: Physician Type: Progress Notes Filed: 03/29/2024 08:59 Note Text: Patient presents with: 6 Month Exam: diarrhea continuous x 6 months HPI: Abraham Gage is a 83 year old male who presents to the office today for review of health conditions. Concerns today: Diarrhea, he states that this has been present most days for the last 6 months, non bloody. Occasional abdominal cramping. Less appetite. Has lost 14 lbs in the last 6 months since doesn't feel like eating when he is having diarrhea. Some intermittent nausea. CKD, stage 3, has been stable and slightly improved. Trying to get adequate fluid intake in. Avoids NSAIDs Hemoglobin (g/dL) Date Value 03/19/2024 12.5 09/09/2021 13.5 Hematocrit (%) Date Value 03/19/2024 39.3 09/09/2021 42.5 WBC (k/uL) Date Value 03/19/2024 10.63 09/09/2021 9.17 Glucose (mg/dL) Date Value 03/19/2024 83 09/09/2021 75 Potassium (mmol/L) Date Value 03/19/2024 4.3 09/09/2021 4.2 Sodium (mmol/L) Date Value 03/19/2024 142 09/09/2021 142 Chloride (mmol/L) Date Value 03/19/2024 105 09/09/2021 106 CO2 (mmol/L) Date Value 03/19/2024 25 09/09/2021 25 Creatinine (mg/dL) Date Value 03/19/2024 2.05 09/09/2021 2.11 BUN (mg/dL) Date Value 03/19/2024 25 09/09/2021 31 Anion Gap (mmol/L) Date Value 03/19/2024 12 09/09/2021 11 Calcium (mg/dL) Date Value 09/09/2021 9.8 Calcium, Total (mg/dL) Date Value 03/19/2024 9.7 Protein, Total (g/dL) Date Value 03/19/2024 6.8 09/09/2021 7.0 Albumin (g/dL) Date Value 03/19/2024 3.9 09/09/2021 4.2 Bilirubin, Total (mg/dL) Date Value 03/19/2024 0.4 09/09/2021 0.3 Alkaline Phosphatase (U/L) Date Value 03/19/2024 102 09/09/2021 105 AST (U/L) Date Value 03/19/2024 16 09/09/2021 15 ALT (U/L) Date Value 03/19/2024 10 09/09/2021 12 Mr. Gage has past history of diabetes. Since our last visit he denies excessive thirst or increased frequency of urination, chest pain or dyspnea , new or unusual visual symptoms, and low sugar/hypoglycemic reactions. Depression- no. Follows a diabetic diet some of the time. He is compliant with medication(s) and is tolerating med(s) without any side effects. He reports checking his glucose on a once a day schedule with sugars in the <150 range. Patient's last HgA1C was Hemoglobin A1C (%) Date Value 03/19/2024 6.0 09/23/2023 6.1 09/09/2021 6.1 06/08/2021 6.0 ) Last Ophthalmology exam was within the past 12 months Mr. Gage reports history of hyperlipidemia. Current therapy includes diet and exercise. Denies side effects of muscle weakness or achiness. His most recent lipid panels are reviewed. Cholesterol, Total (mg/dL) Date Value 03/19/2024 215 09/09/2021 246 HDL Cholesterol (mg/dL) Date Value 03/19/2024 35 09/09/2021 40 LDL Cholesterol (mg/dL) Date Value 03/19/2024 152 09/09/2021 178 Triglyceride (mg/dL) Date Value 03/19/2024 138 09/09/2021 142 Mr. Gage indicates a history of hypertension and states that he is feeling well and denies any symptoms referable to elevated blood pressure. Specifically denies headache, chest pain, palpitations, dyspnea, and peripheral edema. Patient denies any side effects of his medication(s) and is compliant with their regimen. Last 3 Encounter BP Readings: Date: BP: 03/26/2024 120/60 10/04/2023 137/68 09/26/2023 138/64 He watches his diet for sodium, low fat and low cholesterol some of the time. He does not check BP's generally. Abraham likes to exercise by walking. PAST MEDICAL HISTORY 09/2015: Abdominal aneurysm without mention of rupture Comment: 4.15 cm 04/26/2017: Acute gastritis without mention of hemorrhage Comment: EGD by [facility] 03/24/2022: Advance care planning Comment: [facility] can help with medical decision making 07/03/2013: AMI (acute myocardial infarction) ([facility]) 05/2014: Carotid atherosclerosis No date: CKD stage G3b/A2, GFR 30-44 and albumin creatinine ratio 30- 299 mg/g ([facility]) Comment: AVOID NEPHROTOXIC MEDICATIONS No date: Diabetes mellitus type 2, uncontrolled, without complications No date: Diaphragmatic hernia without mention of obstruction or gangrene 04/26/2017: Diverticulosis of colon (without mention of hemorrhage) Comment: colonoscopy by [facility] No date: Esophagitis No date: Generalized osteoarthrosis, unspecified site 04/26/2017: Internal hemorrhoid Comment: colonoscopy by [facility] No date: Iron deficiency anemia No date: Malignant neoplasm of prostate (HCC) No date: Other and unspecified hyperlipidemia 1994: Unspecified cardiovascular disease Comment: CABG No date: Unspecified constipation No date: 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 [facility] 03-26-2024 History of Present illness Narrative Patient presents with: 6 Month Exam: diarrhea continuous x 6 months HPI: Abraham Gage is a 83 year old male who presents to the office today for review of health conditions. Concerns today: Diarrhea, he states that this has been present most days for the last 6 months, non bloody. Occasional abdominal cramping. Less appetite. Has lost 14 lbs in the last 6 months since doesn't feel like eating when he is having diarrhea. Some intermittent nausea. CKD, stage 3, has been stable and slightly improved. Trying to get adequate fluid intake in. Avoids NSAIDs Hemoglobin (g/dL) Date Value 03/19/2024 12.5 09/09/2021 13.5 Hematocrit (%) Date Value 03/19/2024 39.3 09/09/2021 42.5 WBC (k/uL) Date Value 03/19/2024 10.63 09/09/2021 9.17 Glucose (mg/dL) Date Value 03/19/2024 83 09/09/2021 75 Potassium (mmol/L) Date Value 03/19/2024 4.3 09/09/2021 4.2 Sodium (mmol/L) Date Value 03/19/2024 142 09/09/2021 142 Chloride (mmol/L) Date Value 03/19/2024 105 09/09/2021 106 CO2 (mmol/L) Date Value 03/19/2024 25 09/09/2021 25 Creatinine (mg/dL) Date Value 03/19/2024 2.05 09/09/2021 2.11 BUN (mg/dL) Date Value 03/19/2024 25 09/09/2021 31 Anion Gap (mmol/L) Date Value 03/19/2024 12 09/09/2021 11 Calcium (mg/dL) Date Value 09/09/2021 9.8 Calcium, Total (mg/dL) Date Value 03/19/2024 9.7 Protein, Total (g/dL) Date Value 03/19/2024 6.8 09/09/2021 7.0 Albumin (g/dL) Date Value 03/19/2024 3.9 09/09/2021 4.2 Bilirubin, Total (mg/dL) Date Value 03/19/2024 0.4 09/09/2021 0.3 Alkaline Phosphatase (U/L) Date Value 03/19/2024 102 09/09/2021 105 AST (U/L) Date Value 03/19/2024 16 09/09/2021 15 ALT (U/L) Date Value 03/19/2024 10 09/09/2021 12 Mr. Gage has past history of diabetes. Since our last visit he denies excessive thirst or increased frequency of urination, chest pain or dyspnea , new or unusual visual symptoms, and low sugar/hypoglycemic reactions. Depression- no. Follows a diabetic diet some of the time. He is compliant with medication(s) and is tolerating med(s) without any side effects. He reports checking his glucose on a once a day schedule with sugars in the <150 range. Patient's last HgA1C was Hemoglobin A1C (%) Date Value 03/19/2024 6.0 09/23/2023 6.1 09/09/2021 6.1 06/08/2021 6.0 ) Last Ophthalmology exam was within the past 12 months Mr. Gage reports history of hyperlipidemia. Current therapy includes diet and exercise. Denies side effects of muscle weakness or achiness. His most recent lipid panels are reviewed. Cholesterol, Total (mg/dL) Date Value 03/19/2024 215 09/09/2021 246 HDL Cholesterol (mg/dL) Date Value 03/19/2024 35 09/09/2021 40 LDL Cholesterol (mg/dL) Date Value 03/19/2024 152 09/09/2021 178 Triglyceride (mg/dL) Date Value 03/19/2024 138 09/09/2021 142 Mr. Gage indicates a history of hypertension and states that he is feeling well and denies any symptoms referable to elevated blood pressure. Specifically denies headache, chest pain, palpitations, dyspnea, and peripheral edema. Patient denies any side effects of his medication(s) and is compliant with their regimen. Last 3 Encounter BP Readings: Date: BP: 03/26/2024 120/60 10/04/2023 137/68 09/26/2023 138/64 He watches his diet for sodium, low fat and low cholesterol some of the time. He does not check BP's generally. Abraham likes to exercise by walking. PAST MEDICAL HISTORY 09/2015: Abdominal aneurysm without mention of rupture Comment: 4.15 cm 04/26/2017: Acute gastritis without mention of hemorrhage Comment: EGD by [facility] 03/24/2022: Advance care planning Comment: [facility] can help with medical decision making 07/03/2013: AMI (acute myocardial infarction) ([facility]) 05/2014: Carotid atherosclerosis No date: CKD stage G3b/A2, GFR 30-44 and albumin creatinine ratio 30- 299 mg/g ([facility]) Comment: AVOID NEPHROTOXIC MEDICATIONS No date: Diabetes mellitus type 2, uncontrolled, without complications No date: Diaphragmatic hernia without mention of obstruction or gangrene 04/26/2017: Diverticulosis of colon (without mention of hemorrhage) Comment: colonoscopy by Cebul No date: Esophagitis No date: Generalized osteoarthrosis, unspecified site 04/26/2017: Internal hemorrhoid Comment: colonoscopy by Cebul No date: Iron deficiency anemia No date: Malignant neoplasm of prostate (HCC) No date: Other and unspecified hyperlipidemia 1994: Unspecified cardiovascular disease Comment: CABG No date: Unspecified constipation No date: Unspecified hypertensive heart disease without heart failure PAST SURGICAL HISTORY No date: BYP OTH/THN VEIN COMMON-IPSILATERAL CAROTID Comment: Carotid Endarectomy right 07/10/07: COLONOSCOPY FLX DX W/COLLJ SPEC WHEN PFRMD 1994: CORONARY ARTERY BYP W/VEIN & ARTERY GRAFT 1 VEIN Comment: CABG, single graftLupe Dr. 07/03/2013: CORONARY ENDARTERCOMY OPEN ANY METHOD Comment: Angioplasty Xience stent to L circumflex 04/26/2017: EGD Comment: [facility] Dr. Nolan Triana 07/10/07: EGD TRANSORAL BIOPSY SINGLE/MULTIPLE 01/26/08: PAST SURGICAL HISTORY OF Comment: stent placement ramus and prox ramus No date: PAST SURGICAL HISTORY OF Comment: heart stents 1999: PROSTATECTOMY PERINEAL RADICAL Comment: Prostatectomy, radical- Dr. Ojeda left: RPR 1ST INGUN HRNA AGE 6 YRS/> REDUCIBLE Comment: Hernia repair, inguinal 04/26/2017: SCREENING COLONSCOPY NOT HIGH RISK Comment: Dr. Yousif Triana; next screening colonoscopy in 10yrs, [facility] 06/06/2018: UNLISTED DIAGNOSTIC GASTROENTEROLOGY PROCEDURE Social History Tobacco Use Smoking status: Former Current packs/day: 2.00 Average packs/day: 2.0 packs/day for 20.0 years (40.0 ttl pk-yrs) Types: Cigarettes, Pipe, Cigars Smokeless tobacco: Never Tobacco comments: quit in 1987 Vaping Use Vaping status: Never Used Substance Use Topics Alcohol use: Yes Comment: rarely Drug use: No FAMILY HISTORY Problem Relation Age of Onset Hypertension Father COPD Father Heart Mother Allergies: ALLERGIES Allergen Reactions Atorvastatin Unknown Crestor [Rosuvastat* Other: See Comments Muscle pain Glucosamine Unknown Nerve pain Motrin [Ibuprofen] Rash Pravastatin Other: See Comments muscle aches Xffxyxr-Frs-Tzj Red* Other: See Comments myalgia Current Meds: insulin glargine (BASAGLAR KWIKPEN U-100 INSULIN) 100 unit/mL (3 mL)^Inject 10 Units subcutaneously daily at bedtime.^Disp: 5 Each^Rfl: 3 blood sugar diagnostic (BLOOD GLUCOSE TEST) test strip^Test blood sugar(s) 2 times daily. Dx: Type 2 DM - Controlled E11.9 Insulin: Yes^Disp: 100 Strip^Rfl: 11 losartan (COZAAR) 50 mg tablet^Take 0.5 tablets by mouth once daily.^Disp: 45 tablet^Rfl: 3 clopidogrel (PLAVIX) 75 mg tablet^Take 1 tablet by mouth once daily.^Disp: 90 tablet^Rfl: 3 amLODIPine (NORVASC) 10 mg tablet^Take 1 tablet by mouth once daily. In the evening^Disp: 90 tablet^Rfl: 3 carvedilol (COREG) 25 mg tablet^Take 1 tablet by mouth two times a day.^Disp: 180 tablet^Rfl: 3 isosorbide mononitrate ER (IMDUR) 30 mg 24 hr tablet^Take 1 tablet by mouth once daily.^Disp: 90 tablet^Rfl: 3 allopurinol (ZYLOPRIM) 100 mg tablet^Take 1 tablet by mouth once daily.^Disp: 90 tablet^Rfl: 3 blood sugar diagnostic (BLOOD GLUCOSE TEST) test strip^DM2, controlled. Use once daily to test blood sugar in the morning^Disp: 1 Strip^Rfl: 5 benzonatate (TESSALON PERLES) 100 mg capsule^Take 1 capsule by mouth three times daily as needed for cough.^Disp: 21 capsule^Rfl: 0 (Patient not taking: Reported on 10/04/2023) famotidine (PEPCID) 20 mg tablet^Take 1 tablet by mouth at bedtime as needed.^Disp: 90 tablet^Rfl: 3 (Patient not taking: Reported on 05/31/2023) blood sugar diagnostic (BLOOD GLUCOSE TEST) test strip^1 Strip three times daily. Test blood sugar(s)3 times daily. Dx: Type 2 DM - Uncontrolled, E11.65 Insulin: Yes^Disp: 300 Strip^Rfl: 3 CRANBERRY^^Disp: ^Rfl: milk thistle/NAC/dandel/turmer (LIVER COMPLEX ORAL)^Take by mouth.^Disp: ^Rfl: (Patient not taking: Reported on 05/31/2023) Insulin Kerby, Disposable, (BD ULTRA-FINE BENNY PEN NEEDLE) 32 gauge x 5/32^Use once daily with Lantus as directed^Disp: 100 Each^Rfl: 3 diclofenac sodium (VOLTAREN) 1 % topical gel^Apply 2 g to affected area four times daily.^Disp: 100 g^Rfl: 0 flaxseed oil (OMEGA 3 ORAL)^Take by mouth.^Disp: ^Rfl: hydrocortisone 2.5 % cream^Apply 1 application to affected area twice daily. Location: face^Disp: 30 g^Rfl: 2 ferrous sulfate 325 mg (65 mg iron) tablet^Take 325 mg by mouth two times a day. Taking 1 every other day^Disp: ^Rfl: cetirizine HCl (ZYRTEC) 10 mg chewable tablet^Take 10 mg by mouth once daily.^Disp: ^Rfl: COMPOUNDED PRESCRIPTION^kyloic Cholesterol 104^Disp: ^Rfl: (Patient not taking: Reported on 10/04/2023) cholecalciferol (VITAMIN D3) 5,000 unit tab^Take 5,000 Units by mouth twice daily.^Disp: ^Rfl: Blood-Glucose Meter (FREESTYLE LITE METER) monitoring kit^1 Each as directed.^Disp: 1 Each^Rfl: 0 Lancets lancets^Use as instructed^Disp: 50 Each^Rfl: 0 furosemide (LASIX) 40 mg tablet^Take 1 tablet by mouth once daily.^Disp: 90 tablet^Rfl: 3 (Patient taking differently: Take 40 mg by mouth once daily. PRN) potassium chloride (KLOR-CON 10) 10 mEq tablet^Take 1 tablet by mouth once daily.^Disp: 90 tablet^Rfl: 3 VIT C/VIT E/LUTEIN/MIN/OMEGA-3 (OCUVITE ORAL)^Take by mouth.^Disp: ^Rfl: (Patient not taking: Reported on 05/31/2023) triamcinolone acetonide (KENALOG) 0.1 % cream^Apply 1 application to affected area twice daily as needed (rash). Apply sparingly to area for rash/itching.^Disp: 60 g^Rfl: 3 CHOLECALCIFEROL, VITAMIN D3, (VITAMIN D3 ORAL)^Take 600 mg by mouth once daily.^Disp: ^Rfl: coenzyme Q10 (COENZYME Q-10) 100 mg cap capsule^Take 1 capsule by mouth.^Disp: ^Rfl: 0 ONE DAILY MULTI-VITAMIN ORAL TAB^Take one(1) tablet daily.^Disp: ^Rfl: 0 CALTRATE-600 PLUS VITAMIN D3 600 MG-200 UNIT ORAL TAB^TAKE TWO TABLETS DAILY.^Disp: ^Rfl: 0 Review of Systems: The remainder of the review of systems is negative. PE: 03/26/24 1447 BP: 120/60 Pulse: 64 Resp: 20 Temp: 36.3 C (97.4 F) TempSrc: Left Tympanic Weight: 73.9 kg (163 lb) Gen: A&O, NAD, non-toxic appearing, Pleasant, cooperative HEENT: NT/AC, PERRLA, EOMs intact b/l, nares clear and patent b/l, pharynx without erythema, exudate or lesions. Uvula midline. EACs without erythema or debris. TMs pearly walker with intact landmarks b/l. Hard of hearing Neck: supple, No cervical LAD, no thyromegaly, no carotid bruits CV: RRR, normal S1 and S2, 1/6 HSM RUSB murmurs, no gallops, no rubs, Pulses 2+ and symmetric in UE and LE b/l Lungs: normal respiratory effort, CTA b/l, no wheezing or rhonchi or rales Abd: soft, NT, ND, +hyperactive BS, no hepatosplenomegaly, thin MS: FROM all 4 extremities Neuro: CN II-XII intact b/l, strength 5/5 b/l UE and LE, DTRs 2/4 UE and LE, sensation intact. Skin: warm, dry, intact, No rashes or lesions on exposed skin. Foot exam: Monofilament abnormal on right and left feet. Has neuropathy No edema ASSESSMENT/PLAN: 1. Chronic diarrhea - ICD9: 787.91, ICD10: K52.9 (primary diagnosis) Labs and stool studies as ordered Will follow up with surgeon- need for EGD and colonoscopy as d/w him today - CONSULT TO GENERAL SURGERY - PANC ELASTASE, FECAL - ENTERIC BACTERIAL PANEL BY PCR - C. DIFFICILE PCR - CRYPTOSPORIDIUM AND GIARDIA ANTIGENS BY EIA 2. Generalized abdominal pain - ICD9: 789.07, ICD10: R10.84 Labs and stool studies as ordered Will follow up with surgeon- need for EGD and colonoscopy as d/w him today Need to avoid contrast dye due to CKD - CONSULT TO GENERAL SURGERY - PANC ELASTASE, FECAL - ENTERIC BACTERIAL PANEL BY PCR - C. DIFFICILE PCR - CRYPTOSPORIDIUM AND GIARDIA ANTIGENS BY EIA 3. Other polyneuropathy - ICD9: 357.89, ICD10: G62.89 Chronic Secondary to previous chemical / toxin exposures. 4. Hypertensive kidney disease with chronic kidney disease stage IV (HCC) - ICD9: 403.90, 585.4, ICD10: I12.9, N18.4 - Controlled - Continue current medications - Recommend home blood pressure monitoring, to bring results to next visit - Encouraged sodium restriction, DASH or Mediterranean diet - Recommend regular aerobic exercise - eGFR: 32 Stable - Counseled on avoiding NSAIDs, adequate hydration - Counseled on low sodium diet 5. Essential hypertension, benign - ICD9: 401.1, ICD10: I10 - Controlled - Continue current medications - Recommend home blood pressure monitoring, to bring results to next visit - Encouraged sodium restriction, DASH or Mediterranean diet - Recommend regular aerobic exercise 6. 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 ([facility]) - ICD9: 414.01, 413.9, ICD10: I25.119 Stable 7. Abdominal aortic aneurysm (AAA) without rupture, unspecified part ([facility]) - ICD9: 441.4, ICD10: I71.40 stable 8. 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, with long-term current use of insulin ([facility]) - ICD9: 250.40, 585.4, V58.67, ICD10: E11.22, N18.4, Z79.4 - Controlled - Continue current medications - Blood glucose monitoring on a once daily schedule - Counseled on healthy diet and regular exercise - Discussed need for and benefit of weight loss. BMI 24.78 kg/(m^2) - eGFR: 32 Stable - Counseled on avoiding NSAIDs, adequate hydration - Counseled on low sodium diet 9. Arthritis, multiple joint involvement - ICD9: 716.99, ICD10: M12.9 Worsening, no falls 10. Stage 3b chronic kidney disease (HCC) - ICD9: 585.3, ICD10: N18.32 - eGFR: 32 Stable - Counseled on avoiding NSAIDs, adequate hydration - Counseled on low sodium diet Samson L Ragsdale, DO To ER if develops chest pain, shortness of breath, or severe worsening of symptoms. Discussed risks, benefits, alternatives, and potential side effects of medications. Patient expressed understanding and agreed with the plan. Samson Ragsdale DO [address] [place] [address] documented in this encounter [facility] 03-09-2024 Telephone encounter Note Pt informed, verbalized understanding Caridad Delong MA [facility] 03-09-2024 Miscellaneous Notes Pt informed, verbalized understanding Caridad Delong MA Labs are placed. Need to be fasting for these. Thank you, Desirae Irving APRN.JAIRON Pt requesting lab orders prior to upcoming appt with JG on 03/26 Caridad Delnog MA documented in this encounter [facility] 03-09-2024 Telephone encounter Note Labs are placed. Need to be fasting for these. Thank you, Desirae Irving APRN.DOLPHIN RESEARCHER [facility] 03-09-2024 Telephone encounter Note Pt requesting lab orders prior to upcoming appt with JG on 03/26 Caridad Delong MA [facility] 01-27-2024 Telephone encounter Note The patient has been identified by name and date of : Yes Caregiver verified no other encounters exist for this prescription request: Yes Caregiver confirmed with patient/requestor that no other refills are due, in the near future, with this provider at this time: Yes The last office visit in the department: 09/26/2023 Does the patient have a future office visit with this provider/department: Yes 03/26/2024 Requested Prescriptions Pending Prescriptions Disp Refills insulin glargine (BASAGLAR KWIKPEN U-100 INSULIN) 100 unit/mL (3 mL) 5 Each 3 Sig: Inject 10 Units subcutaneously daily at bedtime. Camille Harper RN January 27, 2024 11:07 AM [facility] 01-27-2024 Miscellaneous Notes The patient has been identified by name and date of : Yes Caregiver verified no other encounters exist for this prescription request: Yes Caregiver confirmed with patient/requestor that no other refills are due, in the near future, with this provider at this time: Yes The last office visit in the department: 09/26/2023 Does the patient have a future office visit with this provider/department: Yes 03/26/2024 Requested Prescriptions Pending Prescriptions Disp Refills insulin glargine (BASAGLAR KWIKPEN U-100 INSULIN) 100 unit/mL (3 mL) 5 Each 3 Sig: Inject 10 Units subcutaneously daily at bedtime. Camille Harper RN January 27, 2024 11:07 AM documented in this encounter [facility] 11-15-2023 Telephone encounter Note Paperwork is still needing completed. Paperwork on providers desk. Cleopatra Frey LPN [facility] Work Phone: 11-15-2023 Miscellaneous Notes Paperwork is still needing completed. Paperwork on providers desk. Cleopatra Frey LPN A paper was signed today Is more needed? Samson Ragsdale DO Pt. here inquiring about [facility]. I told Pt. they were on your desk and needed to be filled out. Pt. thought he had brought more in than just what I found. No forms found in scanning. documented in this encounter [facility] 11-14-2023 Telephone encounter Note A paper was signed today Is more needed? Samson Ragsdale DO [facility] 11-14-2023 Miscellaneous Notes Letter created and signed. Given to Patient. Pt came into office states has spoke with you in the past about his skin lesions and needing a letter for a meeting with the [facility]. He has this meeting with them this next TuesdayNovember 15 early. Will be needing this letter from you at the latest by TuesdayNovember 14 so he can take it with him the next day.The letter must say how long these have been treated by you the name of the lesions on [facility] letterhead. He gave this nurse an example of the letter he is presenting . I have placed this on your desk with a little paste it to see phone note. 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 documented in this encounter [facility] 10-24-2023 Miscellaneous Notes Patient has been identified by name and date of : Patient phones for refill(s): Requested Prescriptions Pending Prescriptions Disp Refills blood sugar diagnostic (BLOOD GLUCOSE TEST) test strip 100 Strip 11 Sig: Test blood sugar(s) 2 times daily. Dx: Type 2 DM - Controlled E11.9 Insulin: Yes Date of last office visit in primary care: 09/26/2023 Date of next office visit in primary care: 03/26/2024 patient said he is testing 1 to 3 times daily. Please advise. Thank you. Yeimy Arboleda LPN. documented in this encounter [facility] 10-07-2023 History of Present illness Narrative Patient presents with: 6 Month Exam HPI: Abraham Gage is a 83 year old male who presents to the office today for review of health conditions. Concerns today: Peripheral neuropathy, long standing, present x many years, worsening pain with time, worse with walking and standing, present from feet to knees, tingling and burning and numbness. Also getting tingling in his hands now over the last few years but seems to be worsening Skin lesions on arms, concerned secondary to previous exposures. Knee arthritis, chronic b/l knee pain, hasn't had recent xrays. Hx of injuries and overuse in the . Has been getting shortness of breath with exertion, occasional chest pressure, no syncope. Does get LH once in a while, no current symptoms today. Hx of CAD and cardiac stents in the past. Hasn't had recent cardiac testing Chronic low back pain, hx of DJD and DDD lumbar. Did a lot of heavy lifting of ammo 100 lbs or greater repeatedly in the [place]. No recent injuries. Use of ice and heat and tylenol CKD stage 4. Has chronic fatigue, no edema, still urinating okay Anemia, chronic, secondary to CKD stage 4 and iron deficiency. Taking supplements of iron and multivitamins Tinninus, b/l ears, severe, b/l ears hearing loss as well . Hx of loud noise exposure. 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 Hx of prostate cancer Mr. Gage has past history of diabetes. Since our last visit he denies excessive thirst or increased frequency of urination, chest pain or dyspnea , new or unusual visual symptoms, and low sugar/hypoglycemic reactions. Patient does have some numbness of feet. He checks feet regularly. Reiteration of importance of diabetic foot care give Follows a diabetic diet some of the time. He is compliant with medication(s) and is tolerating med(s) without any side effects. He reports checking his glucose on a once a day schedule with sugars in the <150range. Patient's last HgA1C was Hemoglobin A1C (%) Date Value 09/23/2023 6.1 03/14/2023 5.8 09/09/2021 6.1 06/08/2021 6.0 ) Last Ophthalmology exam was within the past 12 months Mr. Gage reports history of hyperlipidemia. Current therapy includes diet and exercise. Denies side effects of muscle weakness or achiness. His most recent lipid panels are reviewed. Cholesterol, Total (mg/dL) Date Value 09/23/2023 240 09/09/2021 246 HDL Cholesterol (mg/dL) Date Value 09/23/2023 35 09/09/2021 40 LDL Cholesterol (mg/dL) Date Value 09/23/2023 161 09/09/2021 178 Triglyceride (mg/dL) Date Value 09/23/2023 221 09/09/2021 142 Mr. Gage indicates a history of hypertension and states that he is feeling well and denies any symptoms referable to elevated blood pressure. Specifically denies headache, chest pain, palpitations, dyspnea, and peripheral edema. Patient denies any side effects of his medication(s) and is compliant with their regimen. Last 3 Encounter BP Readings: Date: BP: 10/04/2023 137/68 09/26/2023 138/64 05/31/2023 122/58 He watches his diet for sodium, low fat and low cholesterol some of the time. He does not check BP's generally. Abraham likes to exercise by walking when able but this is limited by his Neuropathy 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 09/2015 4.15 cm Acute gastritis without mention of hemorrhage 04/26/2017 EGD by [facility] Advance care planning 03/24/2022 [facility] can help with medical decision making AMI (acute myocardial infarction) (HCC) 07/03/2013 Carotid atherosclerosis 05/2014 CKD stage G3b/A2, GFR 30-44 and albumin creatinine ratio 30-299 mg/g (HCC) AVOID NEPHROTOXIC MEDICATIONS Diabetes mellitus type 2, uncontrolled, without complications Diaphragmatic hernia without mention of obstruction or gangrene Diverticulosis of colon (without mention of hemorrhage) 04/26/2017 colonoscopy by [facility] Esophagitis Generalized osteoarthrosis, unspecified site Internal hemorrhoid 04/26/2017 colonoscopy by [facility] Iron deficiency anemia Malignant neoplasm of prostate (HCC) Other and unspecified hyperlipidemia Unspecified cardiovascular disease 1994 CABG Unspecified constipation 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 Nolan Triana EGD TRANSORAL BIOPSY SINGLE/MULTIPLE 07/10/07 PAST SURGICAL HISTORY OF 01/26/08 stent placement ramus and prox ramus PAST SURGICAL HISTORY OF heart stents PROSTATECTOMY PERINEAL RADICAL 1999 Prostatectomy, radical- Dr. 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 Yousif Triana; next screening colonoscopy in 10yrs, [facility] UNLISTED DIAGNOSTIC GASTROENTEROLOGY PROCEDURE 06/06/2018 Social History Tobacco Use Smoking status: Former Packs/day: 2.00 Years: 20.00 Additional pack years: 0.00 Total pack years: 40.00 Types: Cigarettes, Pipe, Cigars Smokeless tobacco: Never Tobacco comments: quit in 1987 Vaping Use Vaping Use: Never used Substance Use Topics Alcohol use: Yes Comment: rarely Drug use: No FAMILY HISTORY Problem Relation Age of Onset Hypertension Father COPD Father Heart Mother Allergies: ALLERGIES Allergen Reactions Atorvastatin Unknown Crestor [Rosuvastat* Other: See Comments Muscle pain Glucosamine Unknown Nerve pain Motrin [Ibuprofen] Rash Pravastatin Other: See Comments muscle aches Nifitpn-Rdj-Lfe Red* Other: See Comments myalgia Current Meds: isosorbide mononitrate ER (IMDUR) 30 mg 24 hr tablet^Take 1 tablet by mouth once daily.^Disp: 90 tablet^Rfl: 3 allopurinol (ZYLOPRIM) 100 mg tablet^Take 1 tablet by mouth once daily.^Disp: 90 tablet^Rfl: 3 blood sugar diagnostic (BLOOD GLUCOSE TEST) test strip^DM2, controlled. Use once daily to test blood sugar in the morning^Disp: 1 Strip^Rfl: 5 blood sugar diagnostic (BLOOD GLUCOSE TEST) test strip^1 Strip three times daily. Test blood sugar(s)3 times daily. Dx: Type 2 DM - Uncontrolled, E11.65 Insulin: Yes^Disp: 300 Strip^Rfl: 3 losartan (COZAAR) 50 mg tablet^Take 0.5 tablets by mouth once daily.^Disp: 45 tablet^Rfl: 3 clopidogrel (PLAVIX) 75 mg tablet^Take 1 tablet by mouth once daily.^Disp: 90 tablet^Rfl: 3 amLODIPine (NORVASC) 10 mg tablet^Take 1 tablet by mouth once daily. In the evening^Disp: 90 tablet^Rfl: 3 carvedilol (COREG) 25 mg tablet^Take 1 tablet by mouth two times a day.^Disp: 180 tablet^Rfl: 3 insulin glargine (BASAGLAR KWIKPEN U-100 INSULIN) 100 unit/mL (3 mL)^Inject 10 Units subcutaneously daily at bedtime.^Disp: 5 Each^Rfl: 3 blood sugar diagnostic (BLOOD GLUCOSE TEST) test strip^Test blood sugar(s) 1 times daily. Dx: Type 2 DM - Controlled E11.9 Insulin: Yes^Disp: 50 Strip^Rfl: 11 benzonatate (TESSALON PERLES) 100 mg capsule^Take 1 capsule by mouth three times daily as needed for cough.^Disp: 21 capsule^Rfl: 0 (Patient not taking: Reported on 10/04/2023) famotidine (PEPCID) 20 mg tablet^Take 1 tablet by mouth at bedtime as needed.^Disp: 90 tablet^Rfl: 3 (Patient not taking: Reported on 05/31/2023) CRANBERRY^^Disp: ^Rfl: milk thistle/NAC/dandel/turmer (LIVER COMPLEX ORAL)^Take by mouth.^Disp: ^Rfl: (Patient not taking: Reported on 05/31/2023) Insulin Kerby, Disposable, (BD ULTRA-FINE BENNY PEN NEEDLE) 32 gauge x 32^Use once daily with Lantus as directed^Disp: 100 Each^Rfl: 3 diclofenac sodium (VOLTAREN) 1 % topical gel^Apply 2 g to affected area four times daily.^Disp: 100 g^Rfl: 0 flaxseed oil (OMEGA 3 ORAL)^Take by mouth.^Disp: ^Rfl: hydrocortisone 2.5 % cream^Apply 1 application to affected area twice daily. Location: face^Disp: 30 g^Rfl: 2 ferrous sulfate 325 mg (65 mg iron) tablet^Take 325 mg by mouth two times a day. Taking 1 every other day^Disp: ^Rfl: cetirizine HCl (ZYRTEC) 10 mg chewable tablet^Take 10 mg by mouth once daily.^Disp: ^Rfl: COMPOUNDED PRESCRIPTION^kyloic Cholesterol 104^Disp: ^Rfl: (Patient not taking: Reported on 10/04/2023) cholecalciferol (VITAMIN D3) 5,000 unit tab^Take 5,000 Units by mouth twice daily.^Disp: ^Rfl: Blood-Glucose Meter (FREESTYLE LITE METER) monitoring kit^1 Each as directed.^Disp: 1 Each^Rfl: 0 Lancets lancets^Use as instructed^Disp: 50 Each^Rfl: 0 furosemide (LASIX) 40 mg tablet^Take 1 tablet by mouth once daily.^Disp: 90 tablet^Rfl: 3 (Patient taking differently: Take 40 mg by mouth once daily. PRN) potassium chloride (KLOR-CON 10) 10 mEq tablet^Take 1 tablet by mouth once daily.^Disp: 90 tablet^Rfl: 3 VIT C/VIT E/LUTEIN/MIN/OMEGA-3 (OCUVITE ORAL)^Take by mouth.^Disp: ^Rfl: (Patient not taking: Reported on 05/31/2023) triamcinolone acetonide (KENALOG) 0.1 % cream^Apply 1 application to affected area twice daily as needed (rash). Apply sparingly to area for rash/itching.^Disp: 60 g^Rfl: 3 CHOLECALCIFEROL, VITAMIN D3, (VITAMIN D3 ORAL)^Take 600 mg by mouth once daily.^Disp: ^Rfl: coenzyme Q10 (COENZYME Q-10) 100 mg cap capsule^Take 1 capsule by mouth.^Disp: ^Rfl: 0 ONE DAILY MULTI-VITAMIN ORAL TAB^Take one(1) tablet daily.^Disp: ^Rfl: 0 CALTRATE-600 PLUS VITAMIN D3 600 MG-200 UNIT ORAL TAB^TAKE TWO TABLETS DAILY.^Disp: ^Rfl: 0 Review of Systems: The remainder of the review of systems is negative. PE: 09/26/23 1220 BP: 138/64 Pulse: 64 Resp: 20 Temp: 36.2 C (97.2 F) TempSrc: Left Tympanic Weight: 79.8 kg (176 lb) Gen: A&O, NAD, non-toxic appearing, Pleasant, cooperative HEENT: NT/AC, PERRLA, EOMs intact b/l, nares clear and patent b/l, pharynx without erythema, exudate or lesions. Uvula midline. Hard of hearing, MMM, EACs without erythema or debris. TMs pearly walker with intact landmarks b/l. Neck: supple, No cervical LAD, no thyromegaly, no carotid bruits CV: RRR, normal S1 and S2, 2/6 HSM RUSB murmurs, no gallops, no rubs, Pulses 2+ and symmetric in UE and LE b/l Lungs: normal respiratory effort, CTA b/l, no wheezing or rhonchi or rales, mild dyspnea with conversation Abd: soft, overweight, NT, ND, +BS, no hepatosplenomegaly MS: reduced ROM b/l knees due to pain Reduced ROM thoracic and lumbar spine with b/l paraspinal muscle tension and pain Neuro: CN II-XII intact b/l, strength 4/5 b/l UE and LE, DTRs 2/4 UE and LE, sensation decreased b/l feet to knee areas. Skin: warm, dry, intact, actinic keratosis x 1 on left forearm, x 2 on right forearm, x 2 on right cheek, x 1 on left forehead Foot exam: Monofilament abnormal on right and left feet. ASSESSMENT/PLAN: 1. CKD (chronic kidney disease) stage 4, GFR 15-29 ml/min ([facility]) - ICD9: 585.4, ICD10: N18.4 (primary diagnosis) - eGFR: 28 Stable - Counseled on avoiding NSAIDs, adequate hydration - Counseled on low sodium diet - LOSARTAN 50 MG TABLET 2. Hypertensive heart disease without heart failure - ICD9: 402.90, ICD10: I11.9 - Controlled - Continue current medications - Recommend home blood pressure monitoring, to bring results to next visit - Encouraged sodium restriction, DASH or Mediterranean diet - Recommend regular aerobic exercise - Discussed need for and benefit of weight loss. BMI 26.76 kg/(m^2) - CLOPIDOGREL 75 MG TABLET 3. Essential hypertension, benign - ICD9: 401.1, ICD10: I10 - Controlled - Continue current medications - Recommend home blood pressure monitoring, to bring results to next visit - Encouraged sodium restriction, DASH or Mediterranean diet - Recommend regular aerobic exercise - Discussed need for and benefit of weight loss. BMI 26.76 kg/(m^2) - AMLODIPINE 10 MG TABLET 4. Diarrhea, unspecified type - ICD9: 787.91, ICD10: R19.7 - ENTERIC BACTERIAL PANEL BY PCR - C. DIFFICILE PCR - H PYLORI AG BY EIA,STOOL 5. Complete atrioventricular block (HCC) - ICD9: 426.0, ICD10: I44.2 stable 6. Malignant neoplasm of prostate ([facility]) - ICD9: 185, ICD10: C61 Hx of 7. Type 2 diabetes mellitus with stage 4 chronic kidney disease, with long-term current use of insulin ([facility]) - ICD9: 250.40, 585.4, V58.67, ICD10: E11.22, N18.4, Z79.4 - Controlled - Continue current medications - Blood glucose monitoring on a twice daily schedule - Counseled on healthy diet and regular exercise - Discussed need for and benefit of weight loss. BMI 26.76 kg/(m^2) - eGFR: 28 Stable - Counseled on avoiding NSAIDs, adequate hydration - Counseled on low sodium diet 8. 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) - ICD9: 414.01, 413.9, ICD10: I25.119 Stable, hx of 9. Coronary artery 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 rich plaque - ICD9: 414.00, 414.3, ICD10: I25.10, I25.83 Stable, no new symptoms 10. Other polyneuropathy - ICD9: 357.89, ICD10: G62.89 Severe, bilateral arms and legs. Progressing, present x many years. 11. Gout of multiple sites, unspecified cause, unspecified chronicity - ICD9: 274.9, ICD10: M10.9 - stable 12. Arthritis, multiple joint involvement - ICD9: 716.99, ICD10: M12.9 Slowly worsening, gait is slowed but steady, no recent falls. 13. Tinnitus, bilateral - ICD9: 388.30, ICD10: H93.13 Likely from previous conductive noise exposure 14. Other specified hearing loss of both ears - ICD9: 389.8, ICD10: H91.8X3 Likely from previous conductive noise exposure 15. Actinic keratosis - ICD9: 702.0, ICD10: L57.0 Treated in office as above in exam with cryotherapy to 6 lesions, he tolerated procedure well, no complications. He is aware of care of wounds at home Samson Ragsdale DO To ER if develops chest pain, shortness of breath, or severe worsening of symptoms. Discussed risks, benefits, alternatives, and potential side effects of medications. Patient expressed understanding and agreed with the plan. Samson Ragsdale DO [address] [place] [address] documented in this encounter [facility] 10-04-2023 History of Present illness Narrative Images from the original note were not included. Heart , Vascular and Thoracic [place] DEPARTMENT OF VASCULAR SURGERY OUTPATIENT VISIT DATE October 04, 2023 OUTPATIENT VISIT TYPE ESTABLISHED SERVICE DATE: 10/04/2023 SERVICE TIME: 10:38 AM PRIMARY CARE PHYSICIAN: Samson Ragsdale DO HISTORY OF PRESENT ILLNESS: Mr. Gage is a 83 year old male who presents today for a vascular surgery follow-up visit after aortic and carotid duplex. Denies any complaints. Denies focal deficit. Denies monocular vision loss. Does get bilateral lower extremity knee heaviness 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 09/2015 4.15 cm Acute gastritis without mention of hemorrhage 04/26/2017 EGD by [facility] Advance care planning 03/24/2022 [facility] can help with medical decision making AMI (acute myocardial infarction) (HCC) 07/03/2013 Carotid atherosclerosis 05/2014 CKD stage G3b/A2, GFR 30-44 and albumin creatinine ratio 30-299 mg/g (HCC) AVOID NEPHROTOXIC MEDICATIONS Diabetes mellitus type 2, uncontrolled, without complications Diaphragmatic hernia without mention of obstruction or gangrene Diverticulosis of colon (without mention of hemorrhage) 04/26/2017 colonoscopy by [facility] Esophagitis Generalized osteoarthrosis, unspecified site Internal hemorrhoid 04/26/2017 colonoscopy by [facility] Iron deficiency anemia Malignant neoplasm of prostate (HCC) Other and unspecified hyperlipidemia Unspecified cardiovascular disease 1994 CABG Unspecified constipation 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 Nolan Triana EGD TRANSORAL BIOPSY SINGLE/MULTIPLE 07/10/07 PAST SURGICAL HISTORY OF 01/26/08 stent placement ramus and prox ramus PAST SURGICAL HISTORY OF heart stents PROSTATECTOMY PERINEAL RADICAL 1999 Prostatectomy, radical- Dr. 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 Yousif Triana; next screening colonoscopy in 10yrs, [facility] UNLISTED DIAGNOSTIC GASTROENTEROLOGY PROCEDURE 06/06/2018 SOCIAL HISTORY Social History Tobacco Use Smoking status: Former Packs/day: 2.00 Years: 20.00 Additional pack years: 0.00 Total pack years: 40.00 Types: Cigarettes, Pipe, Cigars Smokeless tobacco: Never Tobacco comments: quit in 1987 Vaping Use Vaping Use: Never used Substance Use Topics Alcohol use: Yes Comment: rarely Drug use: No MEDICATIONS: losartan (COZAAR) 50 mg tablet^Take 0.5 tablets by mouth once daily.^Disp: 45 tablet^Rfl: 3 clopidogrel (PLAVIX) 75 mg tablet^Take 1 tablet by mouth once daily.^Disp: 90 tablet^Rfl: 3 amLODIPine (NORVASC) 10 mg tablet^Take 1 tablet by mouth once daily. In the evening^Disp: 90 tablet^Rfl: 3 carvedilol (COREG) 25 mg tablet^Take 1 tablet by mouth two times a day.^Disp: 180 tablet^Rfl: 3 isosorbide mononitrate ER (IMDUR) 30 mg 24 hr tablet^Take 1 tablet by mouth once daily.^Disp: 90 tablet^Rfl: 3 allopurinol (ZYLOPRIM) 100 mg tablet^Take 1 tablet by mouth once daily.^Disp: 90 tablet^Rfl: 3 insulin glargine (BASAGLAR KWIKPEN U-100 INSULIN) 100 unit/mL (3 mL)^Inject 10 Units subcutaneously daily at bedtime.^Disp: 5 Each^Rfl: 3 blood sugar diagnostic (BLOOD GLUCOSE TEST) test strip^Test blood sugar(s) 1 times daily. Dx: Type 2 DM - Controlled E11.9 Insulin: Yes^Disp: 50 Strip^Rfl: 11 blood sugar diagnostic (BLOOD GLUCOSE TEST) test strip^DM2, controlled. Use once daily to test blood sugar in the morning^Disp: 1 Strip^Rfl: 5 blood sugar diagnostic (BLOOD GLUCOSE TEST) test strip^1 Strip three times daily. Test blood sugar(s)3 times daily. Dx: Type 2 DM - Uncontrolled, E11.65 Insulin: Yes^Disp: 300 Strip^Rfl: 3 CRANBERRY^^Disp: ^Rfl: Insulin Kerby, Disposable, (BD ULTRA-FINE BENNY PEN NEEDLE) 32 gauge x 5/32^Use once daily with Lantus as directed^Disp: 100 Each^Rfl: 3 flaxseed oil (OMEGA 3 ORAL)^Take by mouth.^Disp: ^Rfl: ferrous sulfate 325 mg (65 mg iron) tablet^Take 325 mg by mouth two times a day. Taking 1 every other day^Disp: ^Rfl: cetirizine HCl (ZYRTEC) 10 mg chewable tablet^Take 10 mg by mouth once daily.^Disp: ^Rfl: cholecalciferol (VITAMIN D3) 5,000 unit tab^Take 5,000 Units by mouth twice daily.^Disp: ^Rfl: Blood-Glucose Meter (FREESTYLE LITE METER) monitoring kit^1 Each as directed.^Disp: 1 Each^Rfl: 0 Lancets lancets^Use as instructed^Disp: 50 Each^Rfl: 0 furosemide (LASIX) 40 mg tablet^Take 1 tablet by mouth once daily.^Disp: 90 tablet^Rfl: 3 (Patient taking differently: Take 40 mg by mouth once daily. PRN) potassium chloride (KLOR-CON 10) 10 mEq tablet^Take 1 tablet by mouth once daily.^Disp: 90 tablet^Rfl: 3 coenzyme Q10 (COENZYME Q-10) 100 mg cap capsule^Take 1 capsule by mouth.^Disp: ^Rfl: 0 ONE DAILY MULTI-VITAMIN ORAL TAB^Take one(1) tablet daily.^Disp: ^Rfl: 0 CALTRATE-600 PLUS VITAMIN D3 600 MG-200 UNIT ORAL TAB^TAKE TWO TABLETS DAILY.^Disp: ^Rfl: 0 benzonatate (TESSALON PERLES) 100 mg capsule^Take 1 capsule by mouth three times daily as needed for cough.^Disp: 21 capsule^Rfl: 0 (Patient not taking: Reported on 10/04/2023) famotidine (PEPCID) 20 mg tablet^Take 1 tablet by mouth at bedtime as needed.^Disp: 90 tablet^Rfl: 3 (Patient not taking: Reported on 05/31/2023) milk thistle/NAC/dandel/turmer (LIVER COMPLEX ORAL)^Take by mouth.^Disp: ^Rfl: (Patient not taking: Reported on 05/31/2023) diclofenac sodium (VOLTAREN) 1 % topical gel^Apply 2 g to affected area four times daily.^Disp: 100 g^Rfl: 0 hydrocortisone 2.5 % cream^Apply 1 application to affected area twice daily. Location: face^Disp: 30 g^Rfl: 2 COMPOUNDED PRESCRIPTION^kyloic Cholesterol 104^Disp: ^Rfl: (Patient not taking: Reported on 10/04/2023) VIT C/VIT E/LUTEIN/MIN/OMEGA-3 (OCUVITE ORAL)^Take by mouth.^Disp: ^Rfl: (Patient not taking: Reported on 05/31/2023) triamcinolone acetonide (KENALOG) 0.1 % cream^Apply 1 application to affected area twice daily as needed (rash). Apply sparingly to area for rash/itching.^Disp: 60 g^Rfl: 3 CHOLECALCIFEROL, VITAMIN D3, (VITAMIN D3 ORAL)^Take 600 mg by mouth once daily.^Disp: ^Rfl: ALLERGIES: ALLERGIES Allergen Reactions Atorvastatin Unknown Crestor [Rosuvastat* Other: See Comments Muscle pain Glucosamine Unknown Nerve pain Motrin [Ibuprofen] Rash Pravastatin Other: See Comments muscle aches Rgqidee-Trm-Lbe Red* Other: See Comments myalgia PHYSICAL EXAM: BP 137/68 (BP Site: Left Arm, BP Position: Sitting, BP Cuff Size: Regular Adult) Pulse 64 SpO2 97% General: Alert and oriented Integumentary: Normal color, no rash, no lesions. HEENT: EOM, pupils equal, round and reactive. Cardiovascular: Pulse regular. Extremities: trace ankle edema Neurological: Normal cognition and motor skills. Vascular: Posterior Tibial Right: Normal - Left: Normal Diagnostic tests reviewed for today's visit: Most recent labs Most recent imaging Aortic Duplex Compared to prior study of 10/08/2022, No significant change. AORTA Abdominal aortic aneurysm measuring 4.3cm at mid. RIGHT VESSELS Common iliac artery patent without evidence of aneurysm . Common iliac artery plaque noted without evidence of hemodynamically significant stenosis . Internal iliac artery patent without evidence of aneurysm at origin. LEFT VESSELS Common iliac artery patent without evidence of aneurysm . Common iliac artery plaque noted without evidence of hemodynamically significant stenosis . Internal iliac artery not visualized Carotid Duplex Compared to prior study of 10/08/2022, No significant change. RIGHT SIDE Common carotid artery: Endarterectomy patch at distal : 1.35cm. Internal carotid artery: 20-39% stenosis. External carotid artery: Elevated velocities and plaque noted. Vertebral artery: Patent and antegrade flow noted. High resistive signal suggests non-dominant vessel or more distal disease; clinical correlation is suggested. Subclavian artery: 50-99% stenosis. LEFT SIDE Common carotid artery: Plaque visualized without evidence of hemodynamically significant stenosis. Internal carotid artery: 40-59% stenosis. External carotid artery: Elevated velocities and plaque noted. Vertebral artery: Patent and antegrade flow noted. Turbulent flow noted. Subclavian artery: Patent. IMPRESSION: Mr. Gage is a 83 year old male AAA and carotid artery stenosis . PLAN and RECOMMENDATIONS: Follow up in one year with repeat imaging Continue blood pressure and cholesterol control Overall doing well SIGNATURE: Brittany West DO PATIENT NAME: Abraham Gage DATE: October 04, 2023 TIME: 10:38 AM documented in this encounter [facility] 09-27-2023 Telephone encounter Note Pt. here inquiring about forms for [facility]. I told Pt. they were on your desk and needed to be filled out. Pt. thought he had brought more in than just what I found. No forms found in scanning. [facility] 09-26-2023 Instructions Samson Ragsdale DO - 09/26/2023 2:01 PM EST Start eating a banana daily Start a probiotic at bedtime documented in this encounter [facility] 07-05-2023 Miscellaneous Notes Patient has been identified by name and date of : Yes Requested Prescriptions Pending Prescriptions Disp Refills isosorbide mononitrate ER (IMDUR) 30 mg 24 hr tablet 90 tablet 3 Sig: Take 1 tablet by mouth once daily. RX INSTRUCTIONS: Patient aware RX will be sent to pharmacy. No need to notify patient. Renetta Groves documented in this encounter [facility] 06-07-2023 Miscellaneous Notes Pt calling stating he brought in disability paperwork from the [facility] to see if Dr Ragsdale would/could complete this for him. States he brought them to office in Apr. Pt had also called in on 05/30 to check on this, see TE. Pt states he thinks they were waiting until the results of his stress test which was done on 05/07. Pt states he was to bring these forms back to [facility] office. Please let pt know if forms were completed so he can pick them up or he will still need to pick these up from office and try to go a different route to have them completed. Please return call to pt. Nav Allan LPN documented in this encounter [facility] 05-31-2023 History of Present illness Narrative Images from the original note were not included. Heart , Vascular and Thoracic [place] DEPARTMENT OF VASCULAR SURGERY OUTPATIENT VISIT DATE May 31, 2023 OUTPATIENT VISIT TYPE CONSULTATION SERVICE DATE: 05/31/2023 SERVICE TIME: 10:12 AM PRIMARY CARE PHYSICIAN: Samson Ragsdale DO REFERRING PROVIDER: Samosn Ragsdale [address] [facility] [id number] Consult requested for an opinion regarding the evaluation and treatment of the above. My final impression and recommendations will be communicated back to the requesting physician by way of the shared medical record or letter via US mail. CHIEF COMPLAINT: AAA HISTORY OF PRESENT ILLNESS: Vascular consultation at the request of Dr. Samson Ragsdale. A copy of this consultation note will be provided to the requesting physician by way of shared Medical record or letter to requesting physician via US mail. Mr. Gage is a 82 year old male who is seen today for AAA. He denies any significant claudication. Denies focal neurologic deficit. His aneurysm has been followed for years. Last duplex measured 4.2cm. He has a history of previous carotid intervention. Denies focal deficit. 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 09/2015 4.15 cm Acute gastritis without mention of hemorrhage 04/26/2017 EGD by [facility] Advance care planning 03/24/2022 [facility] can help with medical decision making AMI (acute myocardial infarction) (HCC) 07/03/2013 Carotid atherosclerosis 05/2014 CKD stage G3b/A2, GFR 30-44 and albumin creatinine ratio 30-299 mg/g (HCC) AVOID NEPHROTOXIC MEDICATIONS Diabetes mellitus type 2, uncontrolled, without complications Diaphragmatic hernia without mention of obstruction or gangrene Diverticulosis of colon (without mention of hemorrhage) 04/26/2017 colonoscopy by [facility] Esophagitis Generalized osteoarthrosis, unspecified site Internal hemorrhoid 04/26/2017 colonoscopy by [facility] Iron deficiency anemia Malignant neoplasm of prostate (HCC) Other and unspecified hyperlipidemia Unspecified cardiovascular disease 1994 CABG Unspecified constipation 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 Nolan Triana EGD TRANSORAL BIOPSY SINGLE/MULTIPLE 07/10/07 PAST SURGICAL HISTORY OF 01/26/08 stent placement ramus and prox ramus PAST SURGICAL HISTORY OF heart stents PROSTATECTOMY PERINEAL RADICAL 1999 Prostatectomy, radical- Dr. 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 Yousif Triana; next screening colonoscopy in 10yrs, [facility] UNLISTED DIAGNOSTIC GASTROENTEROLOGY PROCEDURE 06/06/2018 SOCIAL HISTORY: Social History Tobacco Use Smoking status: Former Packs/day: 2.00 Years: 20.00 Additional pack years: 0.00 Total pack years: 40.00 Types: Cigarettes, Pipe, Cigars Smokeless tobacco: Never Tobacco comments: quit in 1987 Vaping Use Vaping Use: Never used Substance Use Topics Alcohol use: Yes Comment: rarely Drug use: No FAMILY HISTORY Problem Relation Age of Onset Hypertension Father COPD Father Heart Mother MEDICATIONS: allopurinol (ZYLOPRIM) 100 mg tablet^Take 1 tablet by mouth once daily.^Disp: 90 tablet^Rfl: 3 insulin glargine (BASAGLAR KWIKPEN U-100 INSULIN) 100 unit/mL (3 mL)^Inject 10 Units subcutaneously daily at bedtime.^Disp: 5 Each^Rfl: 3 blood sugar diagnostic (BLOOD GLUCOSE TEST) test strip^Test blood sugar(s) 1 times daily. Dx: Type 2 DM - Controlled E11.9 Insulin: Yes^Disp: 50 Strip^Rfl: 11 clopidogrel (PLAVIX) 75 mg tablet^Take 1 tablet by mouth once daily.^Disp: 90 tablet^Rfl: 3 amLODIPine (NORVASC) 10 mg tablet^Take 1 tablet by mouth once daily. In the evening^Disp: 90 tablet^Rfl: 3 carvedilol (COREG) 25 mg tablet^Take 1 tablet by mouth twice daily.^Disp: 180 tablet^Rfl: 3 blood sugar diagnostic (BLOOD GLUCOSE TEST) test strip^DM2, controlled. Use once daily to test blood sugar in the morning^Disp: 1 Strip^Rfl: 5 losartan (COZAAR) 50 mg tablet^Take 1 tablet by mouth once daily.^Disp: 90 tablet^Rfl: 3 isosorbide mononitrate ER (IMDUR) 30 mg 24 hr tablet^Take 1 tablet by mouth once daily.^Disp: 90 tablet^Rfl: 3 benzonatate (TESSALON PERLES) 100 mg capsule^Take 1 capsule by mouth three times daily as needed for cough.^Disp: 21 capsule^Rfl: 0 famotidine (PEPCID) 20 mg tablet^Take 1 tablet by mouth at bedtime as needed.^Disp: 90 tablet^Rfl: 3 blood sugar diagnostic (BLOOD GLUCOSE TEST) test strip^1 Strip three times daily. Test blood sugar(s)3 times daily. Dx: Type 2 DM - Uncontrolled, E11.65 Insulin: Yes^Disp: 300 Strip^Rfl: 3 CRANBERRY^^Disp: ^Rfl: milk thistle/NAC/dandel/turmer (LIVER COMPLEX ORAL)^Take by mouth.^Disp: ^Rfl: Insulin Kerby, Disposable, (BD ULTRA-FINE BENNY PEN NEEDLE) 32 gauge x 5/32^Use once daily with Lantus as directed^Disp: 100 Each^Rfl: 3 diclofenac sodium (VOLTAREN) 1 % topical gel^Apply 2 g to affected area four times daily.^Disp: 100 g^Rfl: 0 flaxseed oil (OMEGA 3 ORAL)^Take by mouth.^Disp: ^Rfl: hydrocortisone 2.5 % cream^Apply 1 application to affected area twice daily. Location: face^Disp: 30 g^Rfl: 2 ferrous sulfate 325 mg (65 mg iron) tablet^Take 325 mg by mouth twice daily.^Disp: ^Rfl: cetirizine HCl (ZYRTEC) 10 mg chewable tablet^Take 10 mg by mouth once daily.^Disp: ^Rfl: COMPOUNDED PRESCRIPTION^kyloic Cholesterol 104^Disp: ^Rfl: cholecalciferol (VITAMIN D3) 5,000 unit tab^Take 5,000 Units by mouth twice daily.^Disp: ^Rfl: Blood-Glucose Meter (FREESTYLE LITE METER) monitoring kit^1 Each as directed.^Disp: 1 Each^Rfl: 0 Lancets lancets^Use as instructed^Disp: 50 Each^Rfl: 0 furosemide (LASIX) 40 mg tablet^Take 1 tablet by mouth once daily.^Disp: 90 tablet^Rfl: 3 potassium chloride (KLOR-CON 10) 10 mEq tablet^Take 1 tablet by mouth once daily.^Disp: 90 tablet^Rfl: 3 VIT C/VIT E/LUTEIN/MIN/OMEGA-3 (OCUVITE ORAL)^Take by mouth.^Disp: ^Rfl: triamcinolone acetonide (KENALOG) 0.1 % cream^Apply 1 application to affected area twice daily as needed (rash). Apply sparingly to area for rash/itching.^Disp: 60 g^Rfl: 3 CHOLECALCIFEROL, VITAMIN D3, (VITAMIN D3 ORAL)^Take 600 mg by mouth once daily.^Disp: ^Rfl: coenzyme Q10 (COENZYME Q-10) 100 mg cap capsule^Take 1 capsule by mouth.^Disp: ^Rfl: 0 ONE DAILY MULTI-VITAMIN ORAL TAB^Take one(1) tablet daily.^Disp: ^Rfl: 0 CALTRATE-600 PLUS VITAMIN D3 600 MG-200 UNIT ORAL TAB^TAKE TWO TABLETS DAILY.^Disp: ^Rfl: 0 ALLERGIES: ALLERGIES Allergen Reactions Atorvastatin Unknown Crestor [Rosuvastat* Other: See Comments Muscle pain Glucosamine Unknown Nerve pain Motrin [Ibuprofen] Rash Pravastatin Other: See Comments muscle aches Ihclllv-Qkq-Qfw Red* Other: See Comments myalgia REVIEW OF SYSTEM: Constitutional: No weight loss, malaise or fevers. HEENT: Negative for frequent or significant headaches, No changes in hearing or vision, no nose bleeds or other nasal problems Respiratory: Positive for chronic cough and shortness of breath on exertion Cardiovascular: Negative for leg swelling and palpitations and Positive for chest pain Gatrointestinal: Negative for abdominal discomfort, blood in stools or black stools or change in bowel habits Genitourinary: Positive for stage 3 kidney disease Musculoskeletal: Positive for back pain, joint swelling, joint pain, and muscle pain Endocrine: Positive for cold intolerance Hematology/Lymphatic: Positive for bruises easily Neurologic: No history or headaches, syncope, paralysis, seizures or tremors Integumentary: Negative for lesions, rash, and itching. PHYSICAL EXAM: VITALS: There were no vitals taken for this visit. General: Alert and oriented Integumentary: Normal color, no rash, no lesions. HEENT: EOM, pupils equal, round and reactive. Cardiovascular: Pulse regular. Lungs: No chest deformities or chest wall tenderness. Abdomen: Soft, non-tender, no rigidity. Extremities: No deformity, no edema or tenderness, no joint swelling or clubbing. Neurological: Normal cognition and motor skills. Vascular: Radial Pulse Right: Normal - Left: Normal Diagnostic tests reviewed for today's visit: Most recent labs Most recent imaging Carotid Duplex-Compared to prior study of 03/23/2021, No change in degree of stenosis. RIGHT SIDE Common carotid artery: Endarterectomy patch at distal : 1.25 cm. Internal carotid artery: 20-39% stenosis. Endarterectomy patch from origin to proximal . External carotid artery: Elevated velocities and plaque noted. Vertebral artery: Patent and antegrade flow noted. High resistive signal suggests non-dominant vessel or more distal disease; clinical correlation is suggested. Subclavian artery: 50-99% stenosis. LEFT SIDE Common carotid artery: Plaque visualized without evidence of hemodynamically significant stenosis. Internal carotid artery: 40-59% stenosis. Vertebral artery: Patent and antegrade flow noted IMPRESSION: Mr. 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 PLAN and RECOMMENDATIONS: Continue non-interventional therapy Continue routine surveillance, blood pressure and cholesterol control Follow up in one year SIGNATURE: Brittany West DO PATIENT NAME: Abraham Gage DATE: May 31, 2023 TIME: 10:12 AM documented in this encounter [facility] 05-30-2023 Miscellaneous Notes Spoke with pt he states got these papers from [employer]. here in [place] was told he needs to bring these to his pcp to fill out. This paperwork is for disability from va. This nurse explained to him I would have Dr. Ragsdale look at it . She would have to see what she is comfortable filling out. She usually does not fill va paperwork out states va doctors do this. Patient calling and asking if there is any update to the VA Benefit paperwork he submitted to PCP office about a month ago to have completed by Dr. Ragsdale. Please call patient with any updates. Thank you. documented in this encounter [facility] 05-28-2023 Note Discharge Instructions Thank you for allowing [facility] to assist you with your healthcare needs. The following is important discharge information regarding your hospital visit. Your Care Team SAMSON RAGSDALE DO What to do next Scheduled Follow-Up Appointments Appointment Type When Where [facility] 07/05/2023 11:[address] [facility] Follow Up Appointments Follow Up with PALOMO PETERSEN MD When In 2 weeks Where: [address] [place] [address]- Follow Up with [facility] When Why: THE [facility] DEPARTMENT WILL CONTACT YOU TO SCHEDULE YOU FOR PHASE 2. WE LEFT YOU A BROCHURE WITH INFORMATION ABOUT [facility], IF YOU HAVE ANY QUESTIONS PLEASE CALL [phone] Where: [facility] [address] [place] [address]- The Following Activity and Diet Have Been Ordered for You Discharge Activity - Ordered -- NO activity restrictions, 05/28/23 11:34:00 EDT Discharge Diet - Ordered -- No changes were made to your diet during your hospital stay. Please resume your pre hospitalization diet on discharge., 05/28/23 11:34:00 EDT The Following Equipment Has Been Ordered for You No qualifying data available. The Following Treatments Have Been Ordered for You Discharge Labs No qualifying data available. Discharge Radiology No qualifying data available. Other Therapies No qualifying data available. Post Acute Orders No qualifying data available. Someone Will Contact You Regarding These Home Health Referrals No home referrals have been ordered for you. No one will call you. Allergies Motrin (unknown) Naprosyn Medications Please ask your primary doctor or pharmacist before taking any other medication not listed, including over the counter drugs, herbal medications, vitamins and or supplements as they may interact with your home medications. What How Much When Instructions Last Dose New atorvastatin (atorvastatin 40 mg oral tablet) 1 tab(s) by mouth Once a day Duration: 90 Days Refills: 4 Pickup at [facility] Changed amLODIPine (amLODIPine 5 mg oral tablet) 1 tab(s) by mouth Once a day Duration: 30 Days Pickup at [facility] Changed aspirin (Allen Cinedigm Aspirin 81 mg oral tablet, (chewable)) 1 tab(s) by mouth Once a day with a meal Duration: 90 Days Pickup at [facility] Changed carvedilol (Coreg 6.25 mg oral tablet) 1 tab(s) by mouth Twice daily with meals Duration: 30 Days Pickup at [facility] Changed clopidogrel (Plavix 75 mg oral tablet) 1 tab(s) by mouth Once a day Duration: 90 Days Pickup at [facility] Changed losartan (losartan 25 mg oral tablet) 1 tab(s) by mouth Once a day Duration: 30 Days Pickup at [facility] Unchanged allopurinol (allopurinol 100 mg oral tablet) 1 tab(s) by mouth Once a day Unchanged calcium carbonate (Caltrate 600 mg oral tablet) 2 tab(s) by mouth Every day Unchanged cetirizine (Zyrtec 10 mg oral tablet (NF)) 1 tab(s) by mouth Every day as needed for for allergy symptoms Unchanged cholecalciferol (Vitamin D3) 5,000 unit(s) by mouth Once a day Unchanged famotidine (famotidine 10 mg oral tablet) 2 tab(s) by mouth Every day as needed Unchanged ferrous sulfate (IRON (ferrous sulfate 325 mg) 65 mg oral tablet) 1 tab(s) by mouth Once a day Take with food. Unchanged insulin glargine (Basaglar KwikPen 100 units/ mL subcutaneous solution) Subcutaneous Once a day 10 units daily Unchanged isosorbide mononitrate (isosorbide mononitrate 30 mg oral tablet, extended release) 1 tab(s) by mouth Every day Unchanged multivitamin (Multivitamin) 1 tab(s) by mouth Every day occuvite Unchanged nitroGLYcerin (Nitrostat 0.4 mg sublingual tablet) 1 tab(s) under the tongue Every 5 minutes as needed for Chest pain Unchanged omega-3 polyunsaturated fatty acids ([place]-3 1000 mg oral capsule) by mouth Once a day Unchanged potassium chloride (potassium chloride 10 mEq oral capsule, extended release) 1 cap by mouth Every day take with food. Unchanged ubiquinone (Co Q-10 100 mg oral capsule) 1 cap by mouth Every day Pharmacy Information [facility]: [address] [place], [place] [id number] [phone] What How Much When Comments Stop Taking furosemide (furosemide 40 mg oral tablet) 1 tab(s) by mouth Once a day Stop Taking predniSONE (predniSONE 10 mg oral tablet) 1 tab(s) by mouth Once a day with a meal Duration: 10 Days Please take this list to your next doctor s visit. Bring all medications you take, including over the counter medications, herbals and other supplements with you to your doctor s visit. Patients and families are reminded to discard old lists and to update any records with all medication providers or retail pharmacies. Medication Leaflets amlodipine (am ELDA harris) Nydia Doss Norvasc What is the most important information I should know about amlodipine? Use only as directed. Tell your doctor if you use other medicines or have other medical conditions or allergies. What is amlodipine? Amlodipine is used in adults alone or in combination with other medicines to treat chest pain (angina) and other conditions caused by coronary artery disease. Amlodipine is also used alone or in combination with other medicines to treat high blood pressure (hypertension) in adults and children at least 6 years old. Lowering blood pressure may lower your risk of a stroke or heart attack. Amlodipine may also be used for purposes not listed in this medication guide. What should I discuss with my healthcare provider before taking amlodipine? You should not take amlodipine if you are allergic to it. Tell your doctor if you have ever had: severe narrowing of a certain valve in your heart (aortic stenosis), or other heart problems; coronary artery disease (clogged arteries); or liver disease. It is not known if amlodipine will harm an unborn baby. However, having high blood pressure during may cause complications or medical problems in both mother and baby. The benefit of treating hypertension may outweigh any risks to the baby. Tell your doctor if you are . How should I take amlodipine? Follow all directions on your prescription label and read all medication guides or instruction sheets. Your doctor may occasionally change your dose. Use the medicine exactly as directed. Amlodipine is usually taken once per day. Take the medicine at the same time each day, with or without food. Shake the oral suspension (liquid). Measure a dose with the supplied measuring device (not a kitchen spoon). Your blood pressure will need to be checked often. If you have high blood pressure, keep using this medicine even if you feel well. High blood pressure often has no symptoms. Do not change your doses or stop taking any of your medications without your doctor's advice. Your treatment may also include diet, exercise, weight control, and blood tests. Store amlodipine tablets and oral solution (liquid) at room temperature away from moisture, heat, and light. Store amlodipine oral suspension in the refrigerator, do not freeze. What happens if I miss a dose? Take the medicine as soon as you can, but skip the missed dose if you are more than 12 hours late for the dose. Do not take two doses at one time. What happens if I overdose? Seek emergency medical attention or call the Poison Help line at . Overdose symptoms may include rapid heartbeats, redness or warmth in your arms or legs, or fainting. What should I avoid while taking amlodipine? Avoid getting up too fast from a sitting or lying position, or you may feel dizzy. What are the possible side effects of amlodipine? Get emergency medical help if you have signs of an allergic reaction: hives; difficulty breathing; swelling of your face, lips, tongue, or throat. In rare cases, when you first start taking amlodipine, your chest pain may get worse or you could have a heart attack. Seek emergency medical attention or call your doctor right away if you have symptoms such as: chest pain or pressure, pain spreading to your jaw or shoulder, nausea, sweating. Call your doctor at once if you have: worsening chest pain; or a light-headed feeling, like you might pass out. Common side effects may include: dizziness, drowsiness; swelling of your legs or ankles; irregular heartbeat; pounding heartbeats or fluttering in your chest; muscle stiffness; uncontrolled muscle movements; feeling tired; stomach pain, nausea; or flushing (sudden warmth, redness, or tingly feeling). This is not a complete list of side effects and others may occur. Call your doctor for medical advice about side effects. You may report side effects to FDA at 7-626-AFS-1322. What other drugs will affect amlodipine? Sometimes it is not safe to use certain medicines at the same time. Some drugs can affect your blood levels of other drugs you use, which may increase side effects or make the medicines less effective. Other drugs may affect amlodipine, including prescription and fiee-kbh-pzmvttf medicines, vitamins, and herbal products. Tell your doctor about all other medicines you use. Where can I get more information? Your doctor or pharmacist can provide more information about amlodipine. Remember, keep this and all other medicines out of the reach of children, never share your medicines with others, and use this medication only for the indication prescribed. Every effort has been made to ensure that the information provided by [employer]. ('[employer]') is accurate, up-to-date, and complete, but no guarantee is made to that effect. Drug information contained herein may be time sensitive. [employer] information has been compiled for use by healthcare practitioners and consumers in the [place] and therefore [employer] does not warrant that uses outside of the [place] are appropriate, unless specifically indicated otherwise. [employer] drug information does not endorse drugs, diagnose patients or recommend therapy. [employer] drug information is an informational resource designed to assist licensed healthcare practitioners in caring for their patients and/or to serve consumers viewing this service as a supplement to, and not a substitute for, the expertise, skill, knowledge and judgment of healthcare practitioners. The absence of a warning for a given drug or drug combination in no way should be construed to indicate that the drug or drug combination is safe, effective or appropriate for any given patient. [employer] does not assume any responsibility for any aspect of healthcare administered with the aid of information [employer] provides. The information contained herein is not intended to cover all possible uses, directions, precautions, warnings, drug interactions, allergic reactions, or adverse effects. If you have questions about the drugs you are taking, check with your doctor, nurse or pharmacist. Copyright 0622-9250 [employer]. Version: 16.. Revision Date: 12/09/2022. clopidogrel (kloe PID oh grel) Plavix What is the most important information I should know about clopidogrel? You should not use this medicine if you have any active bleeding such as a stomach ulcer or bleeding in the brain. Clopidogrel increases your risk of bleeding, which can be severe or life-threatening. Call your doctor or seek emergency medical attention if you have bleeding that will not stop, if you have blood in your urine, black or bloody stools, or if you cough up blood or vomit that looks like coffee grounds. Do not stop taking clopidogrel without first talking to your doctor, even if you have signs of bleeding. Stopping clopidogrel may increase your risk of a heart attack or stroke. What is clopidogrel? Clopidogrel is used to lower your risk of having a stroke, blood clot, or serious heart problem after you've had a heart attack, severe chest pain (angina), or circulation problems. Clopidogrel may also be used for purposes not listed in this medication guide. What should I discuss with my healthcare provider before taking clopidogrel? You should not use clopidogrel if you are allergic to it, or if you have: any active bleeding; or a stomach ulcer or bleeding in the brain (such as from a head injury). Tell your doctor if you have ever had: an ulcer in your stomach or intestines; or a bleeding disorder or blood clotting disorder. Clopidogrel may not work as well if you have certain genetic factors that affect the breakdown of this medicine in your body. Your doctor may perform a blood test to make sure clopidogrel is right for you. This medicine is not expected to harm an unborn baby. However, taking clopidogrel within 1 week before childbirth can cause bleeding in the mother. Tell your doctor if you are or plan to become . You should not breastfeed while using this medicine. How should I take clopidogrel? Follow all directions on your prescription label and read all medication guides or instruction sheets. Use these medicines exactly as directed. Clopidogrel can be taken with or without food. Clopidogrel is sometimes taken together with aspirin. Take aspirin only if your doctor tells you to. Clopidogrel keeps your blood from coagulating (clotting) and can make it easier for you to bleed, even from a minor injury. Contact your doctor or seek emergency medical attention if you have any bleeding that will not stop. You may need to stop using clopidogrel for a short time before a surgery, medical procedure, or dental work. Any healthcare provider who treats you should know that you are taking clopidogrel. Do not stop taking clopidogrel without first talking to your doctor, even if you have signs of bleeding. Stopping the medicine could increase your risk of a heart attack or stroke. Store at room temperature away from moisture and heat. What happens if I miss a dose? Take the medicine as soon as you can, but skip the missed dose if it is almost time for your next dose. Do not take two doses at one time. What happens if I overdose? Seek emergency medical attention or call the Poison Help line at . Overdose can cause excessive bleeding. What should I avoid while taking clopidogrel? Avoid alcohol. It can increase your risk of stomach bleeding. Avoid activities that may increase your risk of bleeding or injury. Use extra care to prevent bleeding while shaving or brushing your teeth. If you also take aspirin: Ask a doctor or pharmacist before using medicines for pain, fever, swelling, or cold/flu symptoms. They may contain ingredients similar to aspirin (such as salicylates, ibuprofen, ketoprofen, or naproxen). Taking these products together can increase your risk of bleeding. What are the possible side effects of clopidogrel? Get emergency medical help if you have signs of an allergic reaction: hives; difficult breathing; swelling of your face, lips, tongue, or throat. Clopidogrel increases your risk of bleeding, which can be severe or life-threatening. Call your doctor or seek emergency medical attention if you have bleeding that will not stop, if you have blood in your urine, black or bloody stools, or if you cough up blood or vomit that looks like coffee grounds. Also call your doctor at once if you have: nosebleeds, pale skin, easy bruising, purple spots under your skin or in your mouth; jaundice (yellowing of your skin or eyes); fast heartbeats, shortness of breath; headache, fever, weakness, feeling tired; little or no urination; a seizure; low blood sugar--headache, hunger, sweating, irritability, dizziness, fast heart rate, and feeling anxious or shaky; or signs of a blood clot--sudden numbness or weakness, confusion, problems with vision or speech. Common side effects may include: bleeding. This is not a complete list of side effects and others may occur. Call your doctor for medical advice about side effects. You may report side effects to FDA at 2-461-ECN-9520. What other drugs will affect clopidogrel? Sometimes it is not safe to use certain medications at the same time. Some drugs can affect your blood levels of other drugs you take, which may increase side effects or make the medications less effective. Tell your doctor about all your other medicines, especially: a stomach acid director of instructional technology such as omeprazole, Nexium, or Prilosec; an antidepressant such as citalopram, fluoxetine, sertraline, Cymbalta, Effexor, Lexapro, Pristiq, or Prozac; rifampin; a blood thinner--warfarin, Coumadin, Jantoven; or NSAIDs (nonsteroidal anti-inflammatory drugs)--aspirin, ibuprofen (Advil, Motrin), naproxen (Aleve), celecoxib, diclofenac, indomethacin, meloxicam, and others. This list is not complete. Other drugs may affect clopidogrel, including prescription and yors-rtj-jtzwdmz medicines, vitamins, and herbal products. Not all possible drug interactions are listed here. Where can I get more information? Your pharmacist can provide more information about clopidogrel. Remember, keep this and all other medicines out of the reach of children, never share your medicines with others, and use this medication only for the indication prescribed. Every effort has been made to ensure that the information provided by [employer]. ('[employer]') is accurate, up-to-date, and complete, but no guarantee is made to that effect. Drug information contained herein may be time sensitive. [employer] information has been compiled for use by healthcare practitioners and consumers in the [place] and therefore [employer] does not warrant that uses outside of the [place] are appropriate, unless specifically indicated otherwise. [employer] drug information does not endorse drugs, diagnose patients or recommend therapy. [employer] drug information is an informational resource designed to assist licensed healthcare practitioners in caring for their patients and/or to serve consumers viewing this service as a supplement to, and not a substitute for, the expertise, skill, knowledge and judgment of healthcare practitioners. The absence of a warning for a given drug or drug combination in no way should be construed to indicate that the drug or drug combination is safe, effective or appropriate for any given patient. [employer] does not assume any responsibility for any aspect of healthcare administered with the aid of information [facility] provides. The information contained herein is not intended to cover all possible uses, directions, precautions, warnings, drug interactions, allergic reactions, or adverse effects. If you have questions about the drugs you are taking, check with your doctor, nurse or pharmacist. Copyright 6145-8129 [employer]. Version: 18.01. Revision Date: 10/29/2020. carvedilol (ROGERIO ve dil ole) Theresa, Coreg DARIN What is the most important information I should know about carvedilol? You should not take carvedilol if you have asthma, bronchitis, emphysema, severe liver disease, or a serious heart condition such as heart block, 'sick sinus syndrome,' or slow heart rate (unless you have a pacemaker). What is carvedilol? Carvedilol is a beta-amrita that is used to treat heart failure and hypertension (high blood pressure). Carvedilol is also used after a heart attack that has caused your heart not to pump as well. Carvedilol may also be used for purposes not listed in this medication guide. What should I discuss with my healthcare provider before taking carvedilol? You should not take carvedilol if you are allergic to it, or if you have: asthma, bronchitis, emphysema; severe liver disease; or a serious heart condition such as severe heart failure, heart block, 'sick sinus syndrome,' or slow heart rate (unless you have a pacemaker). Tell your doctor if you have ever had: coronary artery disease (clogged arteries); slow heartbeats that have caused you to faint; fluid retention; asthma or other lung problems; angina (chest pain); diabetes (taking carvedilol can make it harder for you to tell when you have low blood sugar); a thyroid disorder; kidney disease; circulation problems (such as Raynaud's syndrome); or pheochromocytoma (tumor of the adrenal gland). Tell your doctor if you are or . Carvedilol is not approved for use by anyone younger than 18 years old. How should I take carvedilol? Follow all directions on your prescription label and read all medication guides or instruction sheets. Your doctor may occasionally change your dose. Use the medicine exactly as directed. Carvedilol works best if you take it with food, at the same time every day. Swallow the extended-release capsule whole and do not crush, chew, break, or open it. If you cannot swallow a capsule whole, open it and sprinkle the medicine into a spoonful of cold applesauce. Swallow the mixture right away without chewing. Do not save it for later use. If you are switched from carvedilol tablets to carvedilol extended-release capsules (Coreg CR), your daily total dose of this medicine may be higher or lower than before. Older adults may be more likely to become dizzy or feel faint when switching from tablets to extended-release capsules. Follow your doctor's instructions. Your blood pressure will need to be checked often. If you need surgery (including cataract surgery), tell your surgeon you currently use this medicine. You may need to stop for a short time. You should not stop using carvedilol suddenly. Stopping suddenly may cause chest pain or a heart attack. Follow your doctor's instructions about tapering your dose. If you are being treated for high blood pressure, keep using this medication even if you feel well. High blood pressure often has no symptoms. You may need to use blood pressure medication for the rest of your life. Carvedilol is only part of a complete treatment program that may also include diet, exercise, and weight control. Follow your doctor's instructions very closely. Store at room temperature away from moisture and heat. What happens if I miss a dose? Take the medicine as soon as you can, but skip the missed dose if it is almost time for your next dose. Do not take two doses at one time. What happens if I overdose? Seek emergency medical attention or call the Poison Help line at . Overdose symptoms may include uneven heartbeats, shortness of breath, bluish-colored fingernails, dizziness, weakness, fainting, and seizure (convulsions). What should I avoid while taking carvedilol? Avoid driving or hazardous activity until you know how this medicine will affect you. Your reactions could be impaired. Avoid getting up too fast from a sitting or lying position, or you may feel dizzy. What are the possible side effects of carvedilol? Get emergency medical help if you have signs of an allergic reaction: hives; difficulty breathing; swelling of your face, lips, tongue, or throat. Call your doctor at once if you have: a light-headed feeling, like you might pass out; slow or uneven heartbeats; cold feeling or numbness in your fingers or toes; chest pain, dry cough, wheezing, chest tightness; heart problems--swelling, rapid weight gain, feeling short of breath; or high blood sugar--increased thirst, increased urination, dry mouth, fruity breath odor. Common side effects may include: dizziness; slow heartbeats; diarrhea; weight gain; dry eyes; or problems wearing contact lenses. This is not a complete list of side effects and others may occur. Call your doctor for medical advice about side effects. You may report side effects to FDA at 1-164-WRF-4276. What other drugs will affect carvedilol? Sometimes it is not safe to use certain medications at the same time. Some drugs can affect your blood levels of other drugs you take, which may increase side effects or make the medications less effective. Other drugs may affect carvedilol, including prescription and ydlt-tdo-indhzbf medicines, vitamins, and herbal products. Tell your doctor about all your current medicines and any medicine you start or stop using. Where can I get more information? Your pharmacist can provide more information about carvedilol. Remember, keep this and all other medicines out of the reach of children, never share your medicines with others, and use this medication only for the indication prescribed. Every effort has been made to ensure that the information provided by [employer]. ('[employer]') is accurate, up-to-date, and complete, but no guarantee is made to that effect. Drug information contained herein may be time sensitive. [employer] information has been compiled for use by healthcare practitioners and consumers in the [place] and therefore [employer] does not warrant that uses outside of the [place] are appropriate, unless specifically indicated otherwise. [employer] drug information does not endorse drugs, diagnose patients or recommend therapy. [employer] drug information is an informational resource designed to assist licensed healthcare practitioners in caring for their patients and/or to serve consumers viewing this service as a supplement to, and not a substitute for, the expertise, skill, knowledge and judgment of healthcare practitioners. The absence of a warning for a given drug or drug combination in no way should be construed to indicate that the drug or drug combination is safe, effective or appropriate for any given patient. [facility] does not assume any responsibility for any aspect of healthcare administered with the aid of information [facility] provides. The information contained herein is not intended to cover all possible uses, directions, precautions, warnings, drug interactions, allergic reactions, or adverse effects. If you have questions about the drugs you are taking, check with your doctor, nurse or pharmacist. Copyright 8320-8841 [employer]. Version: 16.. Revision Date: 11/23/2018. Education Materials Femoral Site Care This sheet gives you information about how to care for yourself after your procedure. Your health care provider may also give you more specific instructions. If you have problems or questions, contact your health care provider. What can I expect after the procedure? After the procedure, it is common to have: Bruising that usually fades within 1 2 weeks. Tenderness at the site. Follow these instructions at home: Wound care Follow instructions from your health care provider about how to take care of your insertion site. Make sure you: ? Wash your hands with soap and water before you change your bandage (dressing). If soap and water are not available, use hand obiee obia solution architect. ? Change your dressing as told by your health care provider. ? Leave stitches (sutures), skin glue, or adhesive strips in place. These skin closures may need to stay in place for 2 weeks or longer. If adhesive strip edges start to loosen and curl up, you may trim the loose edges. Do not remove adhesive strips completely unless your health care provider tells you to do that. Do not take baths, swim, or use a hot tub until your health care provider approves. You may shower 24-48 hours after the procedure or as told by your health care provider. ? Gently wash the site with plain soap and water. ? Pat the area dry with a clean towel. ? Do not rub the site. This may cause bleeding. Do not apply powder or lotion to the site. Keep the site clean and dry. Check your femoral site every day for signs of infection. Check for: ? Redness, swelling, or pain. ? Fluid or blood. ? Warmth. ? Pus or a bad smell. Activity For the first 2 3 days after your procedure, or as long as directed: ? Avoid climbing stairs as much as possible. ? Do not squat. Do not lift anything that is heavier than 10 lb (4.5 kg), or the limit that you are told, until your health care provider says that it is safe. Rest as directed. ? Avoid sitting for a long time without moving. Get up to take short walks every [address] for 24 hours if you were given a medicine to help you relax (sedative). General instructions Take dbjx-pvi-waovbpj and prescription medicines only as told by your health care provider. Keep all follow-up visits as told by your health care provider. This is important. Contact a health care provider if you have: A fever or chills. You have redness, swelling, or pain around your insertion site. Get help right away if: The catheter insertion area swells very fast. You pass out. You suddenly start to sweat or your skin gets clammy. The catheter insertion area is bleeding, and the bleeding does not stop when you hold steady pressure on the area. The area near or just beyond the catheter insertion site becomes pale, cool, tingly, or numb. These symptoms may represent a serious problem that is an emergency. Do not wait to see if the symptoms will go away. Get medical help right away. Call your local emergency services (911 in the [place] Do not drive yourself to the hospital. Summary After the procedure, it is common to have bruising that usually fades within 1 2 weeks. Check your femoral site every day for signs of infection. Do not lift anything that is heavier than 10 lb (4.5 kg), or the limit that you are told, until your health care provider says that it is safe. This information is not intended to replace advice given to you by your health care provider. Make sure you discuss any questions you have with your health care provider. Document Released: 03/21/2015 Document Revised: 07/31/2018 Document Reviewed: 07/31/2018 Elsevier Patient Education 2020 [employer] Coronary Angioplasty, Care After This sheet gives you information about how to care for yourself after your procedure. Your health care provider may also give you more specific instructions. If you have problems or questions, contact your health care provider. What can I expect after the procedure? After your procedure, it is common to have: Bruising at the catheter insertion site. This usually fades within 1 2 weeks. Blood collecting in the tissue (hematoma) that may be painful to the touch. It should become smaller and less tender within 1 2 weeks. Follow these instructions at home: Medicines Take ibbe-eog-pffhrba and prescription medicines only as told by your health care provider. Blood thinners may be prescribed after your procedure to improve blood flow. Bathing You may shower 24 48 hours after the procedure or as told by your health care provider. Do not take baths, swim, or use a hot tub until your health care provider approves. Insertion site care Follow instructions from your health care provider about how to take care of your insertion site. Make sure you: ? Wash your hands with soap and water before you change your bandage (dressing). If soap and water are not available, use hand obiee obia solution architect. ? Change your dressing as told by your health care provider. ? Gently wash the site with plain soap and water. ? Use a clean towel to pat the area dry. ? Do not rub the site, because this may cause bleeding. ? Do not apply powder or lotion to the site. Check your insertion site every day for signs of infection. Check for: ? More redness, swelling, or pain. ? More fluid or blood. ? Warmth. ? Pus or a bad smell. Lifestyle Make any lifestyle changes as recommended by your health care provider. This may include: ? Not using any products that contain nicotine or tobacco, such as cigarettes and e-cigarettes. If you need help quitting, ask your health care provider. ? Managing your weight. ? Getting regular exercise. ? Managing your blood pressure. ? Limiting your alcohol intake. ? Managing other health problems, such as diabetes. Eat a heart-healthy diet. This should include plenty of fresh fruits and vegetables. Avoid foods that are: ? High in salt (sodium). ? Canned or highly processed. ? High in saturated fat or sugar. ? Fried. General instructions Do not lift over 10 lb (4.5 kg) for 5 days after your procedure or as told by your health care provider. Ask your health care provider when it is okay to: ? Return to work or school. ? Resume usual physical activities or sports. ? Resume sexual activity. Keep all follow-up visits as told by your health care provider. This is important. Contact a health care provider if: You have a fever. You have chills. You have increased bleeding from the insertion site. Hold pressure on the site. Get help right away if: You develop chest pain or shortness of breath, feel faint, or pass out. You have unusual pain at the insertion site. You have redness, warmth, or swelling at the insertion site. You have drainage (other than a small amount of blood on the dressing) from the insertion site. The insertion site is bleeding, and the bleeding does not stop after 30 minutes of holding steady pressure on the site. You develop bleeding from any other place, such as from the rectum. There may be bright red blood in your urine or stool, or it may appear as black, tarry stool. This information is not intended to replace advice given to you by your health care provider. Make sure you discuss any questions you have with your health care provider. Document Released: 02/03/2006 Document Revised: 06/30/2018 Document Reviewed: 02/20/2017 [employer] Patient Education 2020 [employer]. Additional Information VACCINATE! IT SAVES LIVES! Members of the community who have not yet received the COVID-19 vaccine and would like to receive it can visit one of [facility] vaccine clinics. There are many vaccine clinic locations within the [facility]. For locations and available times, please visit https://gettheshot.coronavirus.[place].gov/. It is important to note that some COVID mobile vaccine clinics are held outdoors and may be canceled in rainy or stormy conditions. To learn more about pediatric vaccinations (ages 5-11), we invite you to visit the [facility] webpage. https://www.[facility].org/pag es/3186-Kbzaf-Noobnqvtqan-Frequent jm-Tkciz-Agcogyxxg.html To learn more about the COVID-19 vaccine, we invite you to visit the CDC website for a list of frequently asked questions.https://www.cdc.gov/katharina navirus/2019-ncov/vaccines/faq.htm jamir [facility] Patient Portal Access Instructions: Stay connected with your healthcare team and access your personal medical information anytime with the [facility] Patient Portal. Please follow the directions below to create your [facility] account: 1.Access the email account you provided upon registration to the hospital/physician office.2.Look for an invitation email from [facility].3.Open the email and access the invitation link: Accept Invitation to [facility].4.Fill in the required alvarenga to create your account. To access your account, visit [email or web address]. Click the blue button labeled Access Patient Portal and then log in with the username and password that you created in the steps above. You will be able to view your test results, lab results, a summary of your visits, upcoming appointments and more. There is also a convenient messaging option where you can send secure messages to your provider. In addition, you will have the ability to download any documents or summaries to your computer and/or send the information securely to a physician. Remember that your healthcare information is confidential, so carefully consider who you will allow to register on the [facility] Patient Portal for access to your information. You can also access the [facility] Patient Portal on the [facility] feng. Simply click on Patient Portal and then log into your account. If you would like to receive a full copy of your medical records, please contact the [facility] Medical Records Department by calling [phone], Tuesday through Tuesday between 8 a.m. and 4:30 p.m. HOW TO SAFELY DISPOSE OF PRESCRIPTION MEDICATIONS Please use one of the following methods to safely dispose of your unused medications. 1.Use a drug disposal kit: the drug disposal pouch allows you to safely discard your old and unused drugs. Ask your nurse to give you one when you are discharged.2.Visit a local take-back location: Many local pharmacies and police departments have programs that collect old and unwanted prescription drugs. Call your local pharmacy or go to http://Close.io.[employer]/8K2Tj0q to find one close to you.3.Make use of household items: Use cat litter or old coffee grounds to dispose medications if other options are not available. Mix your drugs with these household products, seal them in an airtight container and throw it into the garbage. Call [facility]: [phone] to be sure your drugs can be disposed of in this way. Some medicines may require a different approach.4.Never flush your medications down the toilet. IF YOU HAVE BEEN PRESCRIBED AN OPIOID FOR PAIN If you have been prescribed an opioid (such as hydrocodone, oxycodone or morphine), it is critical to understand the possible side effects and risks of opioid pain medications. Even when taken as directed, opioids can have several side effects including: Tolerance, meaning you might need to take more of a medication for the same pain relief. Nausea, vomiting and/or constipation. Sleepiness, dizziness, dry mouth, confusion, depression or itching. Physical dependence, meaning you have withdrawal symptoms when a medication is stopped, can develop within a few days. KNOW YOUR RESPONSIBILITIES It is important to know exactly how much and how often to take the opioid pain medications you are prescribed. Never take opioids in higher amounts or more often than prescribed. Do not combine opioids with alcohol or other drugs that cause drowsiness, such as benzodiazepines, also known as benzos, including diazepam and alprazolam, muscle relaxants or sleep aids. Never sell or share prescription opioids. This is illegal. Store opioids in a secure place and out of reach of others (including children, family, friends and visitors). The last page of this document has been signed and retained as a CHART COPY. Signatures Patient Education Materials Femoral Site Care Coronary Angioplasty, Care After Medication Leaflets amlodipine, clopidogrel, carvedilol My discharge plan and instructions have been reviewed and explained to me and I,ABRAHAM GAGE understand my current condition and have read and understand these discharge instructions. I have received a written copy of the plan/instructions. If I have questions, I am aware that I should contact my doctor. Patient/[employer] Professional Signature: Date/Time: Relationship to Patient: ___ Witness Name/Signature: Date/Time: [facility] 05-28-2023 Hospital Discharge instructions Patient Education 05/28/2023 12:13:36 Femoral Site Care Femoral Site Care This sheet gives you information about how to care for yourself after your procedure. Your health care provider may also give you more specific instructions. If you have problems or questions, contact your health care provider. What can I expect after the procedure? After the procedure, it is common to have: Bruising that usually fades within 1 2 weeks. Tenderness at the site. Follow these instructions at home: Wound care Follow instructions from your health care provider about how to take care of your insertion site. Make sure you: ?Wash your hands with soap and water before you change your bandage (dressing). If soap and water are not available, use hand obiee obia solution architect. ?Change your dressing as told by your health care provider. ?Leave stitches (sutures), skin glue, or adhesive strips in place. These skin closures may need to stay in place for 2 weeks or longer. If adhesive strip edges start to loosen and curl up, you may trim the loose edges. Do not remove adhesive strips completely unless your health care provider tells you to do that. Do not take baths, swim, or use a hot tub until your health care provider approves. You may shower 24-48 hours after the procedure or as told by your health care provider. ?Gently wash the site with plain soap and water. ?Pat the area dry with a clean towel. ?Do not rub the site. This may cause bleeding. Do not apply powder or lotion to the site. Keep the site clean and dry. Check your femoral site every day for signs of infection. Check for: ?Redness, swelling, or pain. ?Fluid or blood. ?Warmth. ?Pus or a bad smell. Activity For the first 2 3 days after your procedure, or as long as directed: ?Avoid climbing stairs as much as possible. ?Do not squat. Do not lift anything that is heavier than 10 lb (4.5 kg), or the limit that you are told, until your health care provider says that it is safe. Rest as directed. ?Avoid sitting for a long time without moving. Get up to take short walks every [address] for 24 hours if you were given a medicine to help you relax (sedative). General instructions Take jwfm-wls-ginukjc and prescription medicines only as told by your health care provider. Keep all follow-up visits as told by your health care provider. This is important. Contact a health care provider if you have: A fever or chills. You have redness, swelling, or pain around your insertion site. Get help right away if: The catheter insertion area swells very fast. You pass out. You suddenly start to sweat or your skin gets clammy. The catheter insertion area is bleeding, and the bleeding does not stop when you hold steady pressure on the area. The area near or just beyond the catheter insertion site becomes pale, cool, tingly, or numb. These symptoms may represent a serious problem that is an emergency. Do not wait to see if the symptoms will go away. Get medical help right away. Call your local emergency services (911 in the [place] Do not drive yourself to the hospital. Summary After the procedure, it is common to have bruising that usually fades within 1 2 weeks. Check your femoral site every day for signs of infection. Do not lift anything that is heavier than 10 lb (4.5 kg), or the limit that you are told, until your health care provider says that it is safe. This information is not intended to replace advice given to you by your health care provider. Make sure you discuss any questions you have with your health care provider. Document Released: 03/21/2015 Document Revised: 07/31/2018 Document Reviewed: 07/31/2018 [employer] Patient Education 2020 [employer]. 05/28/2023 12:12:58 Coronary Angioplasty, Care After Coronary Angioplasty, Care After This sheet gives you information about how to care for yourself after your procedure. Your health care provider may also give you more specific instructions. If you have problems or questions, contact your health care provider. What can I expect after the procedure? After your procedure, it is common to have: Bruising at the catheter insertion site. This usually fades within 1 2 weeks. Blood collecting in the tissue (hematoma) that may be painful to the touch. It should become smaller and less tender within 1 2 weeks. Follow these instructions at home: Medicines Take rppg-axe-ermnrpl and prescription medicines only as told by your health care provider. Blood thinners may be prescribed after your procedure to improve blood flow. Bathing You may shower 24 48 hours after the procedure or as told by your health care provider. Do not take baths, swim, or use a hot tub until your health care provider approves. Insertion site care Follow instructions from your health care provider about how to take care of your insertion site. Make sure you: ?Wash your hands with soap and water before you change your bandage (dressing). If soap and water are not available, use hand obiee obia solution architect. ?Change your dressing as told by your health care provider. ?Gently wash the site with plain soap and water. ?Use a clean towel to pat the area dry. ?Do not rub the site, because this may cause bleeding. ?Do not apply powder or lotion to the site. Check your insertion site every day for signs of infection. Check for: ?More redness, swelling, or pain. ?More fluid or blood. ?Warmth. ?Pus or a bad smell. Lifestyle Make any lifestyle changes as recommended by your health care provider. This may include: ?Not using any products that contain nicotine or tobacco, such as cigarettes and e-cigarettes. If you need help quitting, ask your health care provider. ?Managing your weight. ?Getting regular exercise. ?Managing your blood pressure. ?Limiting your alcohol intake. ?Managing other health problems, such as diabetes. Eat a heart-healthy diet. This should include plenty of fresh fruits and vegetables. Avoid foods that are: ?High in salt (sodium). ?Canned or highly processed. ?High in saturated fat or sugar. ?Fried. General instructions Do not lift over 10 lb (4.5 kg) for 5 days after your procedure or as told by your health care provider. Ask your health care provider when it is okay to: ?Return to work or school. ?Resume usual physical activities or sports. ?Resume sexual activity. Keep all follow-up visits as told by your health care provider. This is important. Contact a health care provider if: You have a fever. You have chills. You have increased bleeding from the insertion site. Hold pressure on the site. Get help right away if: You develop chest pain or shortness of breath, feel faint, or pass out. You have unusual pain at the insertion site. You have redness, warmth, or swelling at the insertion site. You have drainage (other than a small amount of blood on the dressing) from the insertion site. The insertion site is bleeding, and the bleeding does not stop after 30 minutes of holding steady pressure on the site. You develop bleeding from any other place, such as from the rectum. There may be bright red blood in your urine or stool, or it may appear as black, tarry stool. This information is not intended to replace advice given to you by your health care provider. Make sure you discuss any questions you have with your health care provider. Document Released: 02/03/2006 Document Revised: 06/30/2018 Document Reviewed: 02/20/2017 [employer] Patient Education 2020 [employer]. Follow Up Care 05/23/2023 14:14:05 With:PALOMO PETERSEN MD Address: [address] [facility] [place] [address]- When:Within 2 Week(s) With:[facility] Address: [facility] [address] [place] [address]- When: Unknown Comments:THE [facility] DEPARTMENT WILL CONTACT YOU TO SCHEDULE YOU FOR PHASE 2. 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 daily CONTINUE clopidogrel 75 mg p.o. daily CONTINUE atorvastatin 40 mg p.o. daily CONTINUE carvedilol 6.25 mg p.o. twice daily Disposition: For discharge today 2.hypertension Blood pressure in acceptable range Plan CONTINUE amlodipine 5 mg p.o. daily CONTINUE carvedilol 6.25 mg p.o. twice daily CONTINUE isosorbide mononitrate 30 mg p.o. daily CONTINUE losartan 25 mg p.o. daily 3.hyperlipidemia Plan CONTINUE atorvastatin 40 mg p.o. daily 4.DM2 Fingerstick in acceptable range Plan CONTINUE Lantus 10 units daily CONTINUE sliding scale insulin 5.CKD stage III eGFR 38-30 Plan Follow-up with nephrology as an outpatient Hospital Course Background: 82-year-old man with a history of hypertension hyperlipidemia as well as Alzheimer's dementia most recent echocardiogram which is obtained in the system to 1 80-year-old patient who is known to have coronary artery disease status post PCI to left circumflex July 2013 dyslipidemia hypertension PAD increased BMI patient is also known to have coronary artery bypass grafting 1994 CASTILLO to LAD. Patient is status post PCI to left main as well as diagonal by Dr. Mijares on January 26, 2008 with 3.0 x 12 mm length axis strength in left main trunk and 2.25 pixel stents 18 mm x 30 mm length and diagonal. Patient underwent diagnostic angiogram as well as PCI to left circumflex with 2.25 x 23 mm Xience stent. This was done in July 2013. Patient is also known to have chronic kidney disease his creatinine is hovering around 3 [05/27/2023]: PCI to the whole RPDA. [05/25/2023]: Cardiac cath suggestive of ostial LAD 100%, 75% LCx, 90% RCA, 90% RPDA. This was on a diagnostic cath and the plan was staged because of contrast use. [05/25/2023]: Patient presented for elective cardiac cath with IV hydration because of positive stress test at [facility]. Allergies Motrin (unknown) Naprosyn Consults No qualifying data available. Objective Vitals and Measurements T: 36.8 C (Oral) HR: 85 HR: 73 RR: 18 BP: 110/58 SpO2: 96% Weight Dosing Weight: 77.7 kg (05/24/23) Code Status Code Status - Ordered -- 05/24/23 22:55:00 EDT, Full Code, Constant Order Admission Date 05/24/2023 Discharge Date 05/28/2023 Medications New Prescription atorvastatin (atorvastatin 40 mg oral tablet)1 tab(s) by mouth once a day for 90 Days. Refills: 4. Changed amLODIPine (amLODIPine 5 mg oral tablet)1 tab(s) by mouth once a day for 30 Days. Refills: 2. aspirin (aspirin 81 mg oral tablet (chewable))1 tab(s) by mouth every day. Refills: 0. aspirin ([facility] Aspirin 81 mg oral tablet, (chewable))1 tab(s) by mouth once a day with a meal for 90 Days. Refills: 4. carvedilol (Coreg 6.25 mg oral tablet)1 tab(s) by mouth twice daily with meals for 30 Days. Refills: 2. clopidogrel (Plavix 75 mg oral tablet)1 tab(s) by mouth once a day for 90 Days. Refills: 4. losartan (losartan 25 mg oral tablet)1 tab(s) by mouth once a day for 30 Days. Refills: 2. Unchanged allopurinol (allopurinol 100 mg oral tablet)1 tab(s) by mouth once a day. calcium carbonate (Caltrate 600 mg oral tablet)2 tab(s) by mouth every day. cetirizine (Zyrtec 10 mg oral tablet (NF))1 tab(s) by mouth every day as needed for allergy symptoms. cholecalciferol (Vitamin D3)5,000 unit(s) by mouth once a day. famotidine (famotidine 10 mg oral tablet)2 tab(s) by mouth every day. as needed. ferrous sulfate (IRON (ferrous sulfate 325 mg) 65 mg oral tablet)1 tab(s) by mouth once a day. Take with food.. furosemide (furosemide 40 mg oral tablet)1 tab(s) by mouth once a day. insulin glargine (Basaglar KwikPen 100 units/mL subcutaneous solution)Subcutaneous once a day. 10 units daily. isosorbide mononitrate (isosorbide mononitrate 30 mg oral tablet, extended release)1 tab(s) by mouth every day. multivitamin (Multivitamin)1 tab(s) by mouth every day. occuvite. nitroGLYcerin (Nitrostat 0.4 mg sublingual tablet)1 tab(s) under the tongue every 5 minutes as needed Chest pain. Refills: 3. omega-3 polyunsaturated fatty acids ([place]-3 1000 mg oral capsule)by mouth once a day. potassium chloride (potassium chloride 10 mEq oral capsule, extended release)1 cap by mouth every day. take with food.. ubiquinone (Co Q-10 100 mg oral capsule)1 cap by mouth every day. Discontinued predniSONE (predniSONE 10 mg oral tablet)1 tab(s) by mouth once a day with a meal for 10 Days. Follow Up Follow Up with [facility] When Why: THE [facility] DEPARTMENT WILL CONTACT YOU TO SCHEDULE YOU FOR PHASE 2. WE LEFT YOU A BROCHURE WITH INFORMATION ABOUT [facility] RE[facility], IF YOU HAVE ANY QUESTIONS PLEASE CALL [phone] Where: [facility] [address] [place] [address]- Follow Up Appointments No qualifying data available. Follow Up Labs/Studies Discharge Labs No Follow-up Labs Discharge Studies No Follow-up Studies Discharge Diet Discharge Diet - Ordered -- No changes were made to your diet during your hospital stay. Please resume your pre hospitalization diet on discharge., 05/28/23 11:34:00 EDT Discharge Activity Discharge Activity - Ordered -- NO activity restrictions, 05/28/23 11:34:00 EDT Readmission Risk/Palliative Score No qualifying data available. Digitally Signed by RODGER SAUCEDO MD on 05/28/2023 01:46 PM Digitally Signed by GUILLERMO NUGENT MD [facility] 05-28-2023 Cardiology Progress note Date of Service 08/28/2022 Subjective Patient examined at bedside. Patient is alert oriented x3. Denies any complaints. Background: 82-year-old man with a history of hypertension hyperlipidemia as well as Alzheimer's dementia most recent echocardiogram which is obtained in the system to 1 80-year-old patient who is known to have coronary artery disease status post PCI to left circumflex July 2013 dyslipidemia hypertension PAD increased BMI patient is also known to have coronary artery bypass grafting 1994 CASTILLO to LAD. Patient is status post PCI to left main as well as diagonal by Dr. Mijares on January 26, 2008 with 3.0 x 12 mm length axis strength in left main trunk and 2.25 pixel stents 18 mm x 30 mm length and diagonal. Patient underwent diagnostic angiogram as well as PCI to left circumflex with 2.25 x 23 mm Xience stent. This was done in July 2013. Patient is also known to have chronic kidney disease his creatinine is hovering around 3 [05/27/2023]: PCI to the whole RPDA. [05/25/2023]: Cardiac cath suggestive of ostial LAD 100%, 75% LCx, 90% RCA, 90% RPDA. This was on a diagnostic cath and the plan was staged because of contrast use. [05/25/2023]: Patient presented for elective cardiac cath with IV hydration because of positive stress test at [facility]. Objective Vitals and Measurements T: 36.8 C (Oral) TMIN: 36.7 C (Oral) TMAX: 36.8 C (Oral) HR: 85 HR: 73 RR: 18 BP: 110/58 SpO2: 96% Intake and Output 7AM Yesterday to 7AM Today Intake and Output (Last 24 hours) Intake Oral Intake 490.00 Output Urine Voided 1825.00 Stool Count 0.00 Total Summary Total Intake 490.00 Total Output 1825.00 Fluid Balance -1335.00 Physical Exam General: AAOX3, NAD HEENT: Anicteric sclera, MMM Neck: Trachea midline, no JVD appreciated CVS: RRR, normal S1/S2, no murmurs/rubs/gallops Lung: CTAB, no wheezes/rhonchi/rales Abd: Soft, NT/ND Extrem: WWP, no LE edema Skin: Warm, Intact Neuro: AAOX3, spontaneous movement of all extremities Psych: Appropriate mood & affect Weight Dosing Weight: 77.7 kg (05/24/23) Medications Medications (23) Active Scheduled: (13) amLODIPine 5 mg tablet 5 mg 1 tab(s), Oral, qDay aspirin 81 mg Chewable 81 mg 1 tab(s), Oral, qDayM atorvastatin 40 mg tablet 40 mg 1 tab(s), Oral, qDay carvedilol 6.25 mg tablet 6.25 mg 1 tab(s), Oral, BIDM clopidogrel 75 mg Tablet 75 mg 1 tab(s), Oral, qDay ferrous sulfate 325 mg Tablet 325 mg 1 tab(s), Oral, qDay heparin 5,000 units/mL (1 mL) vial 5,000 unit(s) 1 mL, Subcutaneous, q12h insulin glargine 10 unit(s) 0.1 mL, Subcutaneous (INT), qDay isosorbide mononitrate 30 mg ER tablet 30 mg 1 tab(s), Oral, Daily losartan 25 mg tablet 25 mg 1 tab(s), Oral, qDay No metformin for 48 hrs post contrast 1 EA, Miscellaneous, Unscheduled [id number] ethyl esters 1000 mg capsule 1,000 mg 1 cap(s), Oral, qDay ubiquinone 100 mg capsule 100 mg 1 cap(s), Oral, Daily Continuous: (1) NS (0.9% nacl) 1,000 mL 1,000 mL, Intravenous, 75 mL/hr PRN: (9) dextrose 50% Solution Disp syringe 50 mL 12.5 gram(s) 25 mL, IV Push, AsDirected magnesium sulfate 4 gram(s)/100mL PMX 4 g 100 mL, IV Piggyback, AsDirected magnesium sulfate 50% (500mg/mL) 6 g 12 mL, IV Piggyback, AsDirected magnesium sulfate PMX 2 g 50 mL, IV Piggyback, AsDirected nitroglycerin 0.4 mg Tablet (25/btl) 0.4 mg 1 tab(s), Sublingual, q5min potassium chloride (PMX) 20 mEq/100 mL 20 mEq 100 mL, IV Piggyback, AsDirected potassium chloride 20 mEq ER tablet 20 mEq 1 tab(s), Oral, AsDirected potassium chloride 20 mEq ER tablet 40 mEq 2 tab(s), Oral, AsDirected potassium chloride 20 mEq ER tablet 40 mEq 2 tab(s), Oral, AsDirected Lab Results 05/28 04:41 WBC: 12.0 H Hgb: 9.0 L Hct: 27.7 L Platelet: 205 Neutrophil %: 74.9 Glucose Level: 121 H Sodium Level: 143 Potassium Level: 4.2 BUN: 22.0 Creatinine Lvl (s): 1.75 H 05/27 03:03 WBC: 11.1 H Hgb: 10.9 L Hct: 33.3 L Platelet: 228 Neutrophil %: 65.2 Glucose Level: 105 Sodium Level: 142 Potassium Level: 4.1 BUN: 22.0 Creatinine Lvl (s): 1.94 H EKG Electrocardiogram (EKG) - InProcess -- 05/27/23 9:29:00 EDT, Post-procedure, Complete by Nursing Assessment/Plan 1.CAD 2.positive stress test [at [facility]] Patient presented for elective cardiac cath for positive stress test Also, has history of PCI to LCx in July 2013 Patient was admitted for IV hydration prior to cardiac cath Cardiac cath [05/25/2023]: Ostial LAD 100%, LCx 75%, RCA 90%, RPDA 90% Cardiac cath [05/27/2023]: PCI to an RPDA Patient denies any current chest pain Plan CONTINUE aspirin 81 mg p.o. daily CONTINUE clopidogrel 75 mg p.o. daily CONTINUE atorvastatin 40 mg p.o. daily CONTINUE carvedilol 6.25 mg p.o. twice daily Disposition: For discharge today 2.hypertension Blood pressure in acceptable range Plan CONTINUE amlodipine 5 mg p.o. daily CONTINUE carvedilol 6.25 mg p.o. twice daily CONTINUE isosorbide mononitrate 30 mg p.o. daily CONTINUE losartan 25 mg p.o. daily 3.hyperlipidemia Plan CONTINUE atorvastatin 40 mg p.o. daily 4.DM2 Fingerstick in acceptable range Plan CONTINUE Lantus 10 units daily CONTINUE sliding scale insulin 5.CKD stage III eGFR 38-30 Plan Follow-up with nephrology as an outpatient Digitally Signed by RODGER SAUCEDO MD on 05/28/2023 01:44 PM Digitally Signed by GUILLERMO NUGENT MD [facility] 05-27-2023 Cardiology Progress note Subjective No acute overnight events, patient denies chest pain. Objective Vitals and Measurements T: 36.7 C (Oral) TMIN: 36.4 C (Oral) TMAX: 37 C (Oral) HR: 66(Monitored) RR: 18 BP: 134/52 SpO2: 97% Intake and Output 7AM Yesterday to 7AM Today Intake and Output (Last 24 hours) Intake Oral Intake 810.00 Administration Information 1200.00 Output Urine Voided 2675.00 Stool Count 0.00 Total Summary Total Intake 2010.00 Total Output 2675.00 Fluid Balance -665.00 Physical Exam General Appearance: NAD Head: NCAT EENT: no gross abnormalities Neck: no JVD appreciated Cardiac: NS1S2 Lungs: CTAB Abdomen: soft, NT/ND Musculoskeletal: ROM wnl Extremities: no pitting edema Neurological: no focal deficits Skin: warm, dry Psychiatric: normal mentation Weight Dosing Weight: 77.7 kg (05/24/23) Medications Medications (25) Active Scheduled: (12) amLODIPine 5 mg tablet 5 mg 1 tab(s), Oral, qDay aspirin 81 mg Chewable 81 mg 1 tab(s), Oral, qDayM carvedilol 6.25 mg tablet 6.25 mg 1 tab(s), Oral, BIDM clopidogrel 75 mg Tablet 75 mg 1 tab(s), Oral, qDay ferrous sulfate 325 mg Tablet 325 mg 1 tab(s), Oral, qDay heparin 5,000 units/mL (1 mL) vial 5,000 unit(s) 1 mL, Subcutaneous, q12h insulin glargine 10 unit(s) 0.1 mL, Subcutaneous (INT), qDay isosorbide mononitrate 30 mg ER tablet 30 mg 1 tab(s), Oral, Daily losartan 25 mg tablet 25 mg 1 tab(s), Oral, qDay No metformin for 48 hrs post contrast 1 EA, Miscellaneous, Unscheduled [id number]-[id number] ethyl esters 1000 mg capsule 1,000 mg 1 cap(s), Oral, qDay ubiquinone 100 mg capsule 100 mg 1 cap(s), Oral, Daily Continuous: (2) NS (0.9% nacl) 1,000 mL 1,000 mL, Intravenous, 75 mL/hr NS (0.9% nacl) 1,000 mL 1,000 mL, Intravenous, 75 mL/hr PRN: (11) dextrose 50% Solution Disp syringe 50 mL 12.5 gram(s) 25 mL, IV Push, AsDirected LORAZEPam 2 mg/mL 1 mL vial 2 mg 1 mL, IV Push, q6hr magnesium sulfate 4 gram(s)/100mL PMX 4 g 100 mL, IV Piggyback, AsDirected magnesium sulfate 50% (500mg/mL) 6 g 12 mL, IV Piggyback, AsDirected magnesium sulfate PMX 2 g 50 mL, IV Piggyback, AsDirected morphine 2 mg/mL 1 mL syringe 5 mg 2.5 mL, IV Push, q2h nitroglycerin 0.4 mg Tablet (25/btl) 0.4 mg 1 tab(s), Sublingual, q5min potassium chloride (PMX) 20 mEq/100 mL 20 mEq 100 mL, IV Piggyback, AsDirected potassium chloride 20 mEq ER tablet 20 mEq 1 tab(s), Oral, AsDirected potassium chloride 20 mEq ER tablet 40 mEq 2 tab(s), Oral, AsDirected potassium chloride 20 mEq ER tablet 40 mEq 2 tab(s), Oral, AsDirected Lab Results 10/27 03:03 WBC: 11.1 H Hgb: 10.9 L Hct: 33.3 L Platelet: 228 Neutrophil %: 65.2 Glucose Level: 105 Sodium Level: 142 Potassium Level: 4.1 BUN: 22.0 Creatinine Lvl (s): 1.94 H EKG EKG - Completed -- 05/24/23 21:41:00 EDT EKG - Completed -- 05/26/23 14:33:00 EDT Electrocardiogram (EKG) - InProcess -- 05/27/23 9:29:00 EDT, Post-procedure, Complete by Nursing Assessment/Plan Chest pain, cardiac CAD status post CABG 1994, PCI to left main& diagonal, RCA & ramus 2007, left circumflex 2012, PCI to RPDA CKD stage IV Hypertension Hyperlipidemia Plan: -s/p PCI to RPDA -Cont. NS -Anticipate DC tomorrow -Cont. DAPT with plavix -Cont. GDMT with coreg, losartan and afterload reduction/anti-anginal therapy with imdur Patient not on statin therapy, LDL checked in 2013: 139 Will initiate high intensity statin therapy and assess tolerance Digitally Signed by FLOR BOOGIE MD on 05/27/2023 03:03 PM [facility] 05-27-2023 Cardiology Progress note Subjective No acute overnight events, patient denies chest pain. Objective Vitals and Measurements T: 36.7 C (Oral) TMIN: 36.4 C (Oral) TMAX: 37 C (Oral) HR: 66(Monitored) RR: 18 BP: 134/52 SpO2: 97% Intake and Output 7AM Yesterday to 7AM Today Intake and Output (Last 24 hours) Intake Oral Intake 810.00 Administration Information 1200.00 Output Urine Voided 2675.00 Stool Count 0.00 Total Summary Total Intake 2010.00 Total Output 2675.00 Fluid Balance -665.00 Physical Exam General Appearance: NAD Head: NCAT EENT: no gross abnormalities Neck: no JVD appreciated Cardiac: NS1S2 Lungs: CTAB Abdomen: soft, NT/ND Musculoskeletal: ROM wnl Extremities: no pitting edema Neurological: no focal deficits Skin: warm, dry Psychiatric: normal mentation Weight Dosing Weight: 77.7 kg (05/24/23) Medications Medications (25) Active Scheduled: (12) amLODIPine 5 mg tablet 5 mg 1 tab(s), Oral, qDay aspirin 81 mg Chewable 81 mg 1 tab(s), Oral, qDayM carvedilol 6.25 mg tablet 6.25 mg 1 tab(s), Oral, BIDM clopidogrel 75 mg Tablet 75 mg 1 tab(s), Oral, qDay ferrous sulfate 325 mg Tablet 325 mg 1 tab(s), Oral, qDay heparin 5,000 units/mL (1 mL) vial 5,000 unit(s) 1 mL, Subcutaneous, q12h insulin glargine 10 unit(s) 0.1 mL, Subcutaneous (INT), qDay isosorbide mononitrate 30 mg ER tablet 30 mg 1 tab(s), Oral, Daily losartan 25 mg tablet 25 mg 1 tab(s), Oral, qDay No metformin for 48 hrs post contrast 1 EA, Miscellaneous, Unscheduled [id number]-8-[id number] ethyl esters 1000 mg capsule 1,000 mg 1 cap(s), Oral, qDay ubiquinone 100 mg capsule 100 mg 1 cap(s), Oral, Daily Continuous: (2) NS (0.9% nacl) 1,000 mL 1,000 mL, Intravenous, 75 mL/hr NS (0.9% nacl) 1,000 mL 1,000 mL, Intravenous, 75 mL/hr PRN: (11) dextrose 50% Solution Disp syringe 50 mL 12.5 gram(s) 25 mL, IV Push, AsDirected LORAZEPam 2 mg/mL 1 mL vial 2 mg 1 mL, IV Push, q6hr magnesium sulfate 4 gram(s)/100mL PMX 4 g 100 mL, IV Piggyback, AsDirected magnesium sulfate 50% (500mg/mL) 6 g 12 mL, IV Piggyback, AsDirected magnesium sulfate PMX 2 g 50 mL, IV Piggyback, AsDirected morphine 2 mg/mL 1 mL syringe 5 mg 2.5 mL, IV Push, q2h nitroglycerin 0.4 mg Tablet (25/btl) 0.4 mg 1 tab(s), Sublingual, q5min potassium chloride (PMX) 20 mEq/100 mL 20 mEq 100 mL, IV Piggyback, AsDirected potassium chloride 20 mEq ER tablet 20 mEq 1 tab(s), Oral, AsDirected potassium chloride 20 mEq ER tablet 40 mEq 2 tab(s), Oral, AsDirected potassium chloride 20 mEq ER tablet 40 mEq 2 tab(s), Oral, AsDirected Lab Results 05/27 03:03 WBC: 11.1 H Hgb: 10.9 L Hct: 33.3 L Platelet: 228 Neutrophil %: 65.2 Glucose Level: 105 Sodium Level: 142 Potassium Level: 4.1 BUN: 22.0 Creatinine Lvl (s): 1.94 H EKG EKG - Completed -- 05/24/23 21:41:00 EDT EKG - Completed -- 05/26/23 14:33:00 EDT Electrocardiogram (EKG) - InProcess -- 05/27/23 9:29:00 EDT, Post-procedure, Complete by Nursing Assessment/Plan Chest pain, cardiac CAD status post CABG 1994, PCI to left main& diagonal, RCA & ramus 2007, left circumflex 2012, PCI to RPDA CKD stage IV Hypertension Hyperlipidemia Plan: -s/p PCI to RPDA -Cont. NS -Anticipate DC tomorrow -Cont. DAPT with plavix -Cont. GDMT with coreg, losartan and afterload reduction/anti-anginal therapy with imdur Patient not on statin therapy, LDL checked in 2013: 139 Will initiate high intensity statin therapy and assess tolerance Digitally Signed by FLOR BOOGIE MD on 05/27/2023 03:03 PM [facility] 05-27-2023 Note SINUS RHYTHM BORDERLINE T WAVE ABNORMALITIES Electronic Signature: GUILLERMO NUGENT MD 05/28/2023 14:06:54 [facility] 05-27-2023 Note Exam Date Time Procedure Performing Provider Status 05/27/23 8:18 AM Percut Transluminal Coronary Angioplasty Auth (Verified) [facility] 10-26-2023 Cardiology Progress note Date of Service 05/26/2023 Chief Complaint Chest pain Subjective Complaint of some chest pain last evening, none currently. Objective Vitals and Measurements T: 37 C (Oral) TMIN: 36.3 C (Oral) TMAX: 37 C (Oral) HR: 62(Monitored) RR: 16 BP: 110/48 SpO2: 95% Intake and Output 7AM Yesterday to 7AM Today Intake and Output (Last 24 hours) Intake Output Urine Voided 300.00 Total Summary Total Intake 0.00 Total Output 300.00 Fluid Balance -300.00 Physical Exam Constitutional: no distress, appears stated age ENT: No thyroid masses Respiratory: Clear to auscultation, no adventitious sounds Cardiovascular: RRR, S1 and S2, no murmurs, JVP 8-10 cm H2O, no pedal edema GI: Soft, nondistended, bowel sounds present Musculoskeletal: no deformity Skin: Warm to touch, dry Neurological: Alert and oriented Weight Dosing Weight: 77.7 kg (05/24/23) Medications Medications (21) Active Scheduled: (11) amLODIPine 5 mg tablet 5 mg 1 tab(s), Oral, qDay aspirin 81 mg EC 81 mg 1 tab(s), Oral, Daily carvedilol 6.25 mg tablet 6.25 mg 1 tab(s), Oral, BIDM clopidogrel 75 mg Tablet 75 mg 1 tab(s), Oral, qDay ferrous sulfate 325 mg Tablet 325 mg 1 tab(s), Oral, qDay heparin 5,000 units/mL (1 mL) vial 5,000 unit(s) 1 mL, Subcutaneous, q12h insulin glargine 10 unit(s) 0.1 mL, Subcutaneous (INT), qDay isosorbide mononitrate 30 mg ER tablet 30 mg 1 tab(s), Oral, Daily losartan 25 mg tablet 25 mg 1 tab(s), Oral, qDay [id number]-[id number] ethyl esters 1000 mg capsule 1,000 mg 1 cap(s), Oral, qDay ubiquinone 100 mg capsule 100 mg 1 cap(s), Oral, Daily Continuous: (1) NS (0.9% nacl) 1,000 mL 1,000 mL, Intravenous, 75 mL/hr PRN: (9) dextrose 50% Solution Disp syringe 50 mL 12.5 gram(s) 25 mL, IV Push, AsDirected magnesium sulfate 4 gram(s)/100mL PMX 4 g 100 mL, IV Piggyback, AsDirected magnesium sulfate 50% (500mg/mL) 6 g 12 mL, IV Piggyback, AsDirected magnesium sulfate PMX 2 g 50 mL, IV Piggyback, AsDirected nitroglycerin 0.4 mg Tablet (25/btl) 0.4 mg 1 tab(s), Sublingual, q5min potassium chloride (PMX) 20 mEq/100 mL 20 mEq 100 mL, IV Piggyback, AsDirected potassium chloride 20 mEq ER tablet 20 mEq 1 tab(s), Oral, AsDirected potassium chloride 20 mEq ER tablet 40 mEq 2 tab(s), Oral, AsDirected potassium chloride 20 mEq ER tablet 40 mEq 2 tab(s), Oral, AsDirected Lab Results 05/26 02:17 WBC: 9.0 Hgb: 11.1 L Hct: 33.6 L Platelet: 238 Neutrophil %: 69.7 Glucose Level: 105 Sodium Level: 141 Potassium Level: 3.9 BUN: 25.0 H Creatinine Lvl (s): 2.03 H EKG Electrocardiogram (ECG) - Ordered -- 05/26/23 14:32:00 EDT, please perform 12 lead ecg, thanks Electrocardiogram (EKG) - InProcess -- 05/26/23 14:33:00 EDT Assessment/Plan Chest pain CAD status post CABG 1994, PCI to left main& diagonal, RCA & ramus 2007, left circumflex 2012 CKD stage IV Hypertension Hyperlipidemia Plan: -PCI scheduled for Tuesday via radial access Digitally Signed by KATHY MIJARES MD on 05/26/2023 05:18 PM [id number] Cardiology Progress note Date of Service 05/26/2023 Chief Complaint Chest pain Subjective Complaint of some chest pain last evening, none currently. Objective Vitals and Measurements T: 37 C (Oral) TMIN: 36.3 C (Oral) TMAX: 37 C (Oral) HR: 62(Monitored) RR: 16 BP: 110/48 SpO2: 95% Intake and Output 7AM Yesterday to 7AM Today Intake and Output (Last 24 hours) Intake Output Urine Voided 300.00 Total Summary Total Intake 0.00 Total Output 300.00 Fluid Balance -300.00 Physical Exam Constitutional: no distress, appears stated age ENT: No thyroid masses Respiratory: Clear to auscultation, no adventitious sounds Cardiovascular: RRR, S1 and S2, no murmurs, JVP 8-10 cm H2O, no pedal edema GI: Soft, nondistended, bowel sounds present Musculoskeletal: no deformity Skin: Warm to touch, dry Neurological: Alert and oriented Weight Dosing Weight: 77.7 kg (05/24/23) Medications Medications (21) Active Scheduled: (11) amLODIPine 5 mg tablet 5 mg 1 tab(s), Oral, qDay aspirin 81 mg EC 81 mg 1 tab(s), Oral, Daily carvedilol 6.25 mg tablet 6.25 mg 1 tab(s), Oral, BIDM clopidogrel 75 mg Tablet 75 mg 1 tab(s), Oral, qDay ferrous sulfate 325 mg Tablet 325 mg 1 tab(s), Oral, qDay heparin 5,000 units/mL (1 mL) vial 5,000 unit(s) 1 mL, Subcutaneous, q12h insulin glargine 10 unit(s) 0.1 mL, Subcutaneous (INT), qDay isosorbide mononitrate 30 mg ER tablet 30 mg 1 tab(s), Oral, Daily losartan 25 mg tablet 25 mg 1 tab(s), Oral, qDay [id number] ethyl esters 1000 mg capsule 1,000 mg 1 cap(s), Oral, qDay ubiquinone 100 mg capsule 100 mg 1 cap(s), Oral, Daily Continuous: (1) NS (0.9% nacl) 1,000 mL 1,000 mL, Intravenous, 75 mL/hr PRN: (9) dextrose 50% Solution Disp syringe 50 mL 12.5 gram(s) 25 mL, IV Push, AsDirected magnesium sulfate 4 gram(s)/100mL PMX 4 g 100 mL, IV Piggyback, AsDirected magnesium sulfate 50% (500mg/mL) 6 g 12 mL, IV Piggyback, AsDirected magnesium sulfate PMX 2 g 50 mL, IV Piggyback, AsDirected nitroglycerin 0.4 mg Tablet (25/btl) 0.4 mg 1 tab(s), Sublingual, q5min potassium chloride (PMX) 20 mEq/100 mL 20 mEq 100 mL, IV Piggyback, AsDirected potassium chloride 20 mEq ER tablet 20 mEq 1 tab(s), Oral, AsDirected potassium chloride 20 mEq ER tablet 40 mEq 2 tab(s), Oral, AsDirected potassium chloride 20 mEq ER tablet 40 mEq 2 tab(s), Oral, AsDirected Lab Results 05/26 02:17 WBC: 9.0 Hgb: 11.1 L Hct: 33.6 L Platelet: 238 Neutrophil %: 69.7 Glucose Level: 105 Sodium Level: 141 Potassium Level: 3.9 BUN: 25.0 H Creatinine Lvl (s): 2.03 H EKG Electrocardiogram (ECG) - Ordered -- 05/26/23 14:32:00 EDT, please perform 12 lead ecg, thanks Electrocardiogram (EKG) - InProcess -- 05/26/23 14:33:00 EDT Assessment/Plan Chest pain CAD status post CABG 1994, PCI to left main& diagonal, RCA & ramus 2007, left circumflex 2012 CKD stage IV Hypertension Hyperlipidemia Plan: -PCI scheduled for Tuesday via radial access Digitally Signed by KATHY MIJARES MD on 05/26/2023 05:18 PM [id number] NoteSINUS RHYTHM BORDERLINE T WAVE ABNORMALITIES Electronic Signature: SILVANA TORRES MD 05/27/2023 09:28:13[facility] 10-25-2023 Note* Exam Date Time Procedure Performing Provider Status 05/25/23 2:46 PM Cardiac Catheterization -CV Auth (Verified) [facility] 10-25-2023 History and physical note Date of Service 05/25/2023 History of Present Illness Patient is an 82-year-old male with medical history significant for hypertension, hyperlipidemia, Alzheimer's dementia, CAD status post CABG 1994 CASTILLO to LAD, PCI to left main, diagonal 12/2007 and PCI to RCA and ramus 2007, PCI to left circumflex 07/2013, CKD stage IV who presented as a direct admit for IV hydration prior to [facility]. Patient is known to Dr. Petersen, has been complaining of a lot of shortness of breath, stress test done at [facility] revealed abnormal LV systolic function as well as perfusion scan with moderate scar and moderate-sized kendra-infarct ischemia as per office note hence patient was advised to undergo diagnostic angiogram. Patient endorses that he was becoming more short of breath while he was doing strenuous activity- which he describes as carrying his steel guitar over the last few weeks. Denies active chest pain at this time, palpitations, shortness of breath, LE swelling, orthopnea, PND. Review of Systems 12 point ROS negative unless mentioned in HPI Physical Exam Vitals and Measurements T: 37.0 C (Oral) TMIN: 36.5 C (Oral) TMAX: 37.0 C (Oral) HR: 60(Monitored) RR: 18 BP: 108/42 SpO2: 92% HT: 172.7 cm WT: 77.7 kg BMI: 26.05 Weight Dosing Weight: 77.7 kg (05/24/23) Constitutional: Oriented to time, place, and person - well developed - well nourished Neck - Thyroid not enlarged. Eyes: general /bilateral - extraocular Movement s normal - Pupils: PERRLA Ears: No discharge, external auditory meatus normal Cardiovascular: JVD not elevated, S1 S2 present,No added sounds, No murmur or thrills No bruits in the carotid, arterial pulses equal bilaterally and no edema present Abdomen: Auscultation palpation revealed no abnormalities - Abdomen is soft, no abdominal tenderness. Liver: not enlarged Musculoskeletal system: general/bilateral Normal movement of all extremities Neurological: cranial nerve normal, no sensory exam abnormalities noted, no motor dysfunction, coordination is normal, gait and stance normal, reflexes normal. Skin: color and pigmentation is normal Lab Results 05/25 02:46 WBC: 9.4 Hgb: 11.0 L Hct: 33.2 L Platelet: 234 Neutrophil %: 60.4 Glucose Level: 100 Sodium Level: 142 Potassium Level: 3.6 BUN: 24.0 H Creatinine Lvl (s): 2.07 H 05/24 23:11 WBC: 9.7 Hgb: 11.4 L Hct: 34.9 L Platelet: 253 Neutrophil %: 67.5 Glucose Level: 107 Sodium Level: 139 Potassium Level: 4.1 BUN: 25.0 H Creatinine Lvl (s): 2.13 H Assessment/Plan Dyspnea on exertion CAD status post CABG 1994, PCI to left main& diagonal, RCA & ramus 2007, left circumflex 2013 CKD stage IV Hypertension Hyperlipidemia Patient presented as a direct admit due to worsening BRAND, admitted for elective [facility] s/p IV hydration overnight. Noted to have abnormal stress test result with moderate sized kendra-infarct ischemia at Brogue as per office notes. Plan for [facility] today, NPO for procedure. Resumed home Coreg, losartan, amlodipine at lower doses given soft BP readings overnight, can uptitrate as tolerated. Continue isosorbide mononitrate 30mgqdaily. Continue all other chronic home medications. Discussed with Dr. Acharya Problem List/Past Medical History Ongoing Acid reflux Arthritis Back pain CAD IN [place] CKD (chronic kidney disease), stage IV Coronary artery disease Depression DYSLIPIDEMIA Glasses Hiatal hernia High blood pressure Hypercholesterolemia HYPERTENSION, BENIGN INCREASED BMI (Renamed from OVERWEIGHT) Malignant tumor of prostate PERIPHERAL VASCULAR DISEASE (Renamed from PERIPHERAL BLOOD VESSEL DISORDER) Pneumonia PTCA - Percutaneous transluminal coronary angioplasty Tonsillitis Historical No qualifying data Procedure/Surgical History Carotid endarterectomy Coronary artery bypass graft Adenoidectomy Tonsillectomy Medications Home Medications (20) Active allopurinol 100 mg oral tablet 100 mg = 1 tab(s), Oral, qDay amLODIPine 10 mg, Oral, qDay aspirin 81 mg oral tablet (chewable) 81 mg = 1 tab(s), Oral, Daily Basaglar KwikPen 100 units/mL subcutaneous solution , Subcutaneous, qDay Caltrate 600 mg oral tablet 1,200 mg = 2 tab(s), Oral, Daily carvedilol 25 mg oral tablet 25 mg = 1 tab(s), Oral, BIDM Co Q-10 100 mg oral capsule 100 mg = 1 cap(s), Oral, Daily famotidine 10 mg oral tablet 20 mg = 2 tab(s), Oral, Daily furosemide 40 mg oral tablet 40 mg = 1 tab(s), Oral, qDay IRON (ferrous sulfate 325 mg) 65 mg oral tablet 325 mg = 1 tab(s), Oral, qDay isosorbide mononitrate 30 mg oral tablet, extended release 30 mg = 1 tab(s), Oral, Daily losartan 50 mg oral tablet 50 mg = 1 tab(s), Oral, qDay Multivitamin 1 tab(s), Oral, Daily Nitrostat 0.4 mg sublingual tablet 0.4 mg = 1 tab(s), PRN, Sublingual, q5min [place]-3 1000 mg oral capsule , Oral, qDay Plavix 75 mg oral tablet 75 mg = 1 tab(s), Oral, qDay potassium chloride 10 mEq oral capsule, extended release 10 mEq = 1 cap(s), Oral, Daily predniSONE 10 mg oral tablet 10 mg = 1 tab(s), Oral, qDayM Vitamin D3 5,000 unit(s) = 1 cap(s), Oral, qDay Zyrtec 10 mg oral tablet (NF) 10 mg = 1 tab(s), PRN, Oral, Daily Allergies Motrin (unknown) Naprosyn Social History Smoking Status - 07/03/2013 Former smoker Alcohol Use: none., 09/29/2020 Employment/School Status: Retired., 09/29/2020 Substance Abuse Use: none., 09/29/2020 Tobacco Nicotine Use: Former smoker, quit more than 30 days ago., 09/29/2020 Family History Asthma: Negative: Mother, Father, Sister, Brother, Daughter and Son. Cancer: Negative: Mother, Father, Sister, Brother, Daughter and Son. Coronary artery disease: Grandparent. Diabetes mellitus: Negative: Mother, Father, Sister, Brother, Daughter and Son. HIV: Negative: Mother, Father, Sister, Brother, Daughter and Son. HTN - Hypertension: Mother and Father.Negative: Sister, Brother, Daughter and Son. Heart disease: Negative: Mother, Father, Sister, Brother, Daughter and Son. Hepatitis: Negative: Mother, Father, Sister, Brother, Daughter and Son. Hyperchloremia: Negative: Mother, Father, Sister, Brother, Daughter and Son. Mental illness: Negative: Mother, Father, Sister, Brother, Daughter and Son. Seizure: Negative: Mother, Father, Sister, Brother, Daughter and Son. Stroke: Negative: Mother, Father, Sister, Brother, Daughter and Son. TB - Tuberculosis: Negative: Mother, Father, Sister, Brother, Daughter and Son. Immunizations hepatitis A adult vaccine: 0 unknown unit (03/18/04) pneumococcal 13-valent conjugate vaccine: 0 unknown unit (09/02/15) pneumococcal 23-valent vaccine(Pneumovax: 0 unknown unit (06/02/15) pneumococcal 23-valent vaccine(Pneumovax: 0.5 mL (01/27/08) poliovirus vaccine, inactivated: 0 unknown unit (03/18/04) SARS-CoV-2 (COVID-19) mRNA-1273 vaccine: 100 unknown unit (10/22/20) SARS-CoV-2 (COVID-19) mRNA-1273 vaccine: 100 unknown unit (09/24/20) tetanus/diphth/pertuss (Tdap) adult/adol: 0.5 unknown unit (05/02/23) typhoid vaccine, inactivated: 0 unknown unit (03/18/04) zoster vaccine, inactivated: 0.5 unknown unit (01/14/23) Code Status Code Status - Ordered -- 05/24/23 22:55:00 EDT, Full Code, Constant Order Digitally Signed by SUSANNE DENNIS MD on 05/25/2023 09:26 AM [id number] Evaluation + Plan noteExtracted from: Title:History and Physical Author:CARMEN DENNIS MD Date:05/25/23 Dyspnea on exertion CAD status post CABG 1994, PCI to left main& diagonal, RCA & ramus 2007, left circumflex 2012 CKD stage IV Hypertension Hyperlipidemia Patient presented as a direct admit due to worsening BRAND, admitted for elective [facility] s/p IV hydration overnight. Noted to have abnormal stress test result with moderate sized kendra-infarct ischemia at Brogue as per office notes. Plan for [facility] today, NPO for procedure. Resumed home Coreg, losartan, amlodipine at lower doses given soft BP readings overnight, can uptitrate as tolerated. Continue isosorbide mononitrate 30mgqdaily. Continue all other chronic home medications. Discussed with Dr. Acharya Addendum by SELENA ACHARYA MD on May 25, 2023 14:07:25 EDT Vitals Signs(Last 24 hrs)__ Last Charted Minimum Maximum Temp 36.5(MAY 25 11:09) 36.5(MAY 25:09) 37.0(MAY 25 03:06) Heart Rate 63(MAY 25:09) L 57(MAY 24 23:18) 64(MAY 24 21:15) Resp Rate 18(MAY 25 11:09) 16(MAY 24 23:18) 20(MAY 24 21:15) SBP 102(MAY 25 11:09) 102(MAY 25 11:09) 132(MAY 24 21:15) DBP L 58(MAY 25 11:09) C 42(MAY 25 03:06) L 58(MAY 24 23:18) Patient was independently seen and examined by me. Below discussed and I agree with fellow's note except where indicated. See Fellow s note for details above. See my additional comments below. I personally reviewed the patient s recent medications, orders, vitals, labs, and X ray reports/images. Also I personally reviewed recent cardiac telemetry and other pertinent available cardiac studies and images including the latest EKG images and ECHO images, cardiac catheterization images Medications were reviewed and changes were made in EMR Future Appointments Appointment Date:07/05/2023 11:45:00 AM Scheduled Provider: Location:[facility] Appointment Type:[facility] Follow Up Future Scheduled Tests Laboratory* Complete Blood Count 05/19/23 * Prothrombin Time - Panel 05/19/23 * Complete Metabolic Panel 05/19/23 [facility] 10-25-2023 History and physical note Date of Service 05/25/2023 History of Present Illness Patient is an 82-year-old male with medical history significant for hypertension, hyperlipidemia, Alzheimer's dementia, CAD status post CABG 1994 [place] to LAD, PCI to left main, diagonal 12/2007 and PCI to RCA and ramus 2007, PCI to left circumflex 07/2013, CKD stage IV who presented as a direct admit for IV hydration prior to [facility]. Patient is known to Dr. Petersen, has been complaining of a lot of shortness of breath, stress test done at [facility] revealed abnormal LV systolic function as well as perfusion scan with moderate scar and moderate-sized kendra-infarct ischemia as per office note hence patient was advised to undergo diagnostic angiogram. Patient endorses that he was becoming more short of breath while he was doing strenuous activity- which he describes as carrying his steel guitar over the last few weeks. Denies active chest pain at this time, palpitations, shortness of breath, LE swelling, orthopnea, PND. Review of Systems 12 point ROS negative unless mentioned in HPI Physical Exam Vitals and Measurements T: 37.0 C (Oral) TMIN: 36.5 C (Oral) TMAX: 37.0 C (Oral) HR: 60(Monitored) RR: 18 BP: 108/42 SpO2: 92% HT: 172.7 cm WT: 77.7 kg BMI: 26.05 Weight Dosing Weight: 77.7 kg (05/24/23) Constitutional: Oriented to time, place, and person - well developed - well nourished Neck - Thyroid not enlarged. Eyes: general /bilateral - extraocular Movement s normal - Pupils: PERRLA Ears: No discharge, external auditory meatus normal Cardiovascular: JVD not elevated, S1 S2 present,No added sounds, No murmur or thrills No bruits in the carotid, arterial pulses equal bilaterally and no edema present Abdomen: Auscultation palpation revealed no abnormalities - Abdomen is soft, no abdominal tenderness. Liver: not enlarged Musculoskeletal system: general/bilateral Normal movement of all extremities Neurological: cranial nerve normal, no sensory exam abnormalities noted, no motor dysfunction, coordination is normal, gait and stance normal, reflexes normal. Skin: color and pigmentation is normal Lab Results 05/25 02:46 WBC: 9.4 Hgb: 11.0 L Hct: 33.2 L Platelet: 234 Neutrophil %: 60.4 Glucose Level: 100 Sodium Level: 142 Potassium Level: 3.6 BUN: 24.0 H Creatinine Lvl (s): 2.07 H 05/24 23:11 WBC: 9.7 Hgb: 11.4 L Hct: 34.9 L Platelet: 253 Neutrophil %: 67.5 Glucose Level: 107 Sodium Level: 139 Potassium Level: 4.1 BUN: 25.0 H Creatinine Lvl (s): 2.13 H Assessment/Plan Dyspnea on exertion CAD status post CABG 1994, PCI to left main& diagonal, RCA & ramus 2007, left circumflex 2012 CKD stage IV Hypertension Hyperlipidemia Patient presented as a direct admit due to worsening BRAND, admitted for elective [facility] s/p IV hydration overnight. Noted to have abnormal stress test result with moderate sized kendra-infarct ischemia at Brogue as per office notes. Plan for [facility] today, NPO for procedure. Resumed home Coreg, losartan, amlodipine at lower doses given soft BP readings overnight, can uptitrate as tolerated. Continue isosorbide mononitrate 30mgqdaily. Continue all other chronic home medications. Discussed with Dr. Acharya Problem List/Past Medical History Ongoing Acid reflux Arthritis Back pain CAD IN [place] CKD (chronic kidney disease), stage IV Coronary artery disease Depression DYSLIPIDEMIA Glasses Hiatal hernia High blood pressure Hypercholesterolemia HYPERTENSION, BENIGN INCREASED BMI (Renamed from OVERWEIGHT) Malignant tumor of prostate PERIPHERAL VASCULAR DISEASE (Renamed from PERIPHERAL BLOOD VESSEL DISORDER) Pneumonia PTCA - Percutaneous transluminal coronary angioplasty Tonsillitis Historical No qualifying data Procedure/Surgical History Carotid endarterectomy Coronary artery bypass graft Adenoidectomy Tonsillectomy Medications Home Medications (20) Active allopurinol 100 mg oral tablet 100 mg = 1 tab(s), Oral, qDay amLODIPine 10 mg, Oral, qDay aspirin 81 mg oral tablet (chewable) 81 mg = 1 tab(s), Oral, Daily Basaglar KwikPen 100 units/mL subcutaneous solution , Subcutaneous, qDay Caltrate 600 mg oral tablet 1,200 mg = 2 tab(s), Oral, Daily carvedilol 25 mg oral tablet 25 mg = 1 tab(s), Oral, BIDM Co Q-10 100 mg oral capsule 100 mg = 1 cap(s), Oral, Daily famotidine 10 mg oral tablet 20 mg = 2 tab(s), Oral, Daily furosemide 40 mg oral tablet 40 mg = 1 tab(s), Oral, qDay IRON (ferrous sulfate 325 mg) 65 mg oral tablet 325 mg = 1 tab(s), Oral, qDay isosorbide mononitrate 30 mg oral tablet, extended release 30 mg = 1 tab(s), Oral, Daily losartan 50 mg oral tablet 50 mg = 1 tab(s), Oral, qDay Multivitamin 1 tab(s), Oral, Daily Nitrostat 0.4 mg sublingual tablet 0.4 mg = 1 tab(s), PRN, Sublingual, q5min [place]-3 1000 mg oral capsule , Oral, qDay Plavix 75 mg oral tablet 75 mg = 1 tab(s), Oral, qDay potassium chloride 10 mEq oral capsule, extended release 10 mEq = 1 cap(s), Oral, Daily predniSONE 10 mg oral tablet 10 mg = 1 tab(s), Oral, qDayM Vitamin D3 5,000 unit(s) = 1 cap(s), Oral, qDay Zyrtec 10 mg oral tablet (NF) 10 mg = 1 tab(s), PRN, Oral, Daily Allergies Motrin (unknown) Naprosyn Social History Smoking Status - 07/03/2013 Former smoker Alcohol Use: none., 09/29/2020 Employment/School Status: Retired., 09/29/2020 Substance Abuse Use: none., 09/29/2020 Tobacco Nicotine Use: Former smoker, quit more than 30 days ago., 09/29/2020 Family History Asthma: Negative: Mother, Father, Sister, Brother, Daughter and Son. Cancer: Negative: Mother, Father, Sister, Brother, Daughter and Son. Coronary artery disease: Grandparent. Diabetes mellitus: Negative: Mother, Father, Sister, Brother, Daughter and Son. HIV: Negative: Mother, Father, Sister, Brother, Daughter and Son. HTN - Hypertension: Mother and Father.Negative: Sister, Brother, Daughter and Son. Heart disease: Negative: Mother, Father, Sister, Brother, Daughter and Son. Hepatitis: Negative: Mother, Father, Sister, Brother, Daughter and Son. Hyperchloremia: Negative: Mother, Father, Sister, Brother, Daughter and Son. Mental illness: Negative: Mother, Father, Sister, Brother, Daughter and Son. Seizure: Negative: Mother, Father, Sister, Brother, Daughter and Son. Stroke: Negative: Mother, Father, Sister, Brother, Daughter and Son. TB - Tuberculosis: Negative: Mother, Father, Sister, Brother, Daughter and Son. Immunizations hepatitis A adult vaccine: 0 unknown unit (03/18/04) pneumococcal 13-valent conjugate vaccine: 0 unknown unit (09/02/15) pneumococcal 23-valent vaccine(Pneumovax: 0 unknown unit (06/02/15) pneumococcal 23-valent vaccine(Pneumovax: 0.5 mL (01/27/08) poliovirus vaccine, inactivated: 0 unknown unit (03/18/04) SARS-CoV-2 (COVID-19) mRNA-1273 vaccine: 100 unknown unit (10/22/20) SARS-CoV-2 (COVID-19) mRNA-1273 vaccine: 100 unknown unit (09/24/20) tetanus/diphth/pertuss (Tdap) adult/adol: 0.5 unknown unit (05/02/23) typhoid vaccine, inactivated: 0 unknown unit (03/18/04) zoster vaccine, inactivated: 0.5 unknown unit (01/14/23) Code Status Code Status - Ordered -- 05/24/23 22:55:00 EDT, Full Code, Constant Order Digitally Signed by SUSANNE DENNIS MD on 05/25/2023 09:26 AM [id number] NoteSINUS RHYTHM PROBABLE LEFT ATRIAL ENLARGEMENT Electronic Signature: SILVANA TORRES MD 05/26/2023 21:16:31[facility] 10-11-2023 Miscellaneous Notes* Telephone Encounter - Camille Harper RN - 05/11/2023 10:40 AM EDT Spoke to Dr. Petersen's nurse. Stress test results faxed to [phone] per request along with most recent EKG and ECHO. Appointment with Dr. Petersen scheduled first available for May 19 at 215 pm in the [place] Office. Call placed to patient and notified of abnormal tress test results and follow up appointment with Dr. Petersen on May 19 at 215 pm. Patient verbalizes understanding and will follow up on the with Dr. Petersen. Camille Harper RN * Telephone Encounter - Stephanie Hayes MA - 05/11/2023 8:22 AM EDT Phone call to [facility] to facilitate appointment and obtain fax number tosend most recent stress test. LM for Dr. Petersen's nurse to contact office for the following: - Pt had abnormal lexiscan on 05/09/23 showing mild ischemia in the LCX and moderate fixed perfusiondefect is same territory. -Dr. Mandel would like patient to be seen in the next week by his glove boarder. - Please ask for fax number so that we can fax testing. Stephanie Hyaes MA * Telephone Encounter - Dudley Mandel MD - 05/09/2023 2:09 PM EDT Called and spoke with Dr. Morgan regarding mild ischemia in LCX and miderate fixed perfusion defect in same territory. Recommended he be evaluated in the next week by his glove boarder. Looks like he was seen in September by Dr. Petersen. Please fax results to patient's glove boarder's office and assist with scheduling OV for this abnormal stress test and notify patient. * Telephone Encounter - Malika Meier RN - 05/09/2023 1:[address] Morgan calling to speak with PCP regarding nuclear stress test result done today. Advised PCPout of office. He states he would like DOC to call back. He states not urgent but needs follow up. His phone # [phone]. Malika Meier RN [facility] History of Present illness Narrative* Olga Cobb RN - 05/09/2023 10:48 AM EDT RADIOLOGY SERVICE PROGRESS NOTE SERVICE DATE: 05/09/2023 SERVICE TIME: 944 PATIENT IDENTITY VERIFICATION COMPLETED USING TWO (2) METHODS: Patient confirmed name and Date of verbally. ALLERGIES AND MEDICATIONS REVIEWED BY: Olga Cobb RN PROCEDURE TYPE: NM STRESS: 0.4 mg of Lexiscan was administered IV at 0953 over 10 Seconds by Olga Cobb RN Reversal agent used:None LOT [id number] EXP 08/01/26 IV SITE: IV palced by nuclear tecnologist POST EXAM PIV STATUS: Discontinued by [employer] Specialist Manager PATIENT DISCHARGED TO: Nuclear Medicine Department for post stress imaging A Diagnostic radioactive procedure has taken place, with no further precautions necessary other than routine body substance precautions. More information regarding radiation safety can be found usingthis link: [email or web address] SIGNATURE: Olga Cobb RN PATIENT NAME:Abraham Gage DATE: 05/09/23 TIME: 10:48 AM [facility] History of Present illness Narrative* Ct Sprague, (R) - 05/09/2023 8:30 AM EDT RADIOLOGY SERVICE PROGRESS NOTE SERVICE DATE: 05/09/2023 SERVICE TIME: 08:40 AM PATIENT IDENTITY VERIFICATION COMPLETED USING TWO (2) STANDARD IDENTIFIERS: Name and Date of confirmed by patient verbally FALL SCREENING: Has the patient had 2 falls in the last year or 1 fall with injury or currently using an Ambulatory Assistive Device (Walker, Cane, Wheelchair, Crutches, etc.)? No PATIENT GENDER DATA: .male ALLERGIES: Reviewed and unchanged MEDICATIONS REVIEWED: No PATIENT RELEVANT IMPLANT DATA REVIEWED: Not Applicable CREATININE: Creatinine Date Value Ref Range Status 03/14/2023 2.41 (H) 0.73 - 1.22 mg/dL Final 09/13/2022 2.41 (H) 0.73 - 1.22 mg/dL Final 03/16/2022 2.22 (H) 0.73 - 1.22 mg/dL Final Estimated Glomerular Filtration Rate Date Value Ref Range Status 03/14/2023 26 (L) >=60 mL/min/1.73m Final Comment: Estimated Glomerular Filtration Rate (eGFR) is calculated using the 2020 CKD-EPI creatinine equation. This equation utilizes serum creatinine, sex, and age as parameters. The creatinine assay has traceable calibration to isotope dilution- mass spectrometry. Refer to KDIGO guidelines for clinical interpretation. In patients with unstable renal function, e.g. those with acute kidney injury, the eGFRmay not accurately reflect actual GFR. eGFR- Date Value Ref Range Status 09/09/2021 37 Final P.O.C.T. RESULTS: N/A May 09, [address] PERFORMED: No IV SITE: Ambulatory: A peripheral IV was started in the Right antecubital site with a Angio cath: 22 gauge. POST EXAM PIV STATUS: Discontinued PROCEDURE TYPE: NM Stress: 8.4 mCi [id number] was administered IV for Rest Imaging at 08:[address] [place]. 26.5 mCi [id number] was administered IV for Stress Imaging at 09:[address] [place]. ADMINISTRATION TIME: PATIENT DISCHARGED TO: Ambulatory patient, left [place] department area. A Diagnostic radioactive procedure has taken place, with no further precautions necessary other than routine body substance precautions. More information regarding radiation safety can be found usingthis link: [email or web address] SIGNATURE: RT Phill(R) PATIENT NAME: Abraham Gage DATE: May 09, 2023 TIME: 1:52 PM PAGER/CONTACT #: documented [facility] Miscellaneous Notes* Telephone Encounter - Marina Connor Ma - 03/25/2023 12:59 PM EDT Notified. Marina Connor Ma * Telephone Encounter - Malu Galindo LPN - 03/24/2023 11:05 AM EDT Left message to return call. * Telephone Encounter - Samson Ragsdale DO - 03/24/2023 10:29 AM EDT Please inform patient that his CXR is normal Samson Ragsdale DO documented in this encounterKn[facility]23 History of Present illness Narrative* Samson Ragsdale DO - 03/23/2023 2:43 PM EDT Patient presents with: Recheck: 6 months HPI: Abraham Gage is a 82 year old male who presents to the office today for review of health conditions. Concerns today: Peripheral neuropathy, long standing, present x many years, worsening pain with time, worse with walking and standing, present from feet to knees, tingling and burning and numbness Knee arthritis, chronic b/l knee pain, hasn't had recent xrays. Hx of injuries and overuse in the . Has been getting shortness of breath with exertion, occasional chest pressure, no syncope. Does getLH once in a while, no current symptoms today. Hx of CAD and cardiac stents in the past. Hasn't hadrecent cardiac testing Chronic low back pain, hx of DJD and DDD lumbar. Did a lot of heavy lifting of ammo 100 lbs or greater repeatedly in the [place]. No recent injuries. Use of ice and heat and tylenol CKD stage 4. Has chronic fatigue, no edema, still urinating okay Anemia, chronic, secondary to CKD stage 4 and iron deficiency. Taking supplements of iron and multivitamins Tinninus, b/l ears, severe, b/l ears hearing loss. Hx of loud noise exposure. [facility] Hx of prostate cancer PSA (ng/mL) Date Value 12/07/2021 0.04 05/21/2019 0.04 04/18/2018 0.03 02/23/2016 <0.03 11/04/2014 <0.03 PSA Screening (ng/mL) Date Value 09/13/2022 0.04 06/08/2021 0.04 09/09/2020 0.05 08/02/2018 0.03 10/24/2017 0.03 Mr. Gage has past history of diabetes. Since our last visit he denies excessive thirst or increased frequency of urination,new or unusual visual symptoms, and low sugar/hypoglycemic reactions. Depression- no. Follows a diabetic diet some of the time. He is compliant with medication(s) and is tole rating med(s) without any side effects. He reports checking his glucose on a once a day schedule with sugars in the <120 range. Patient's last HgA1C was Hemoglobin A1C (%) Date Value 03/14/2023 5.8 09/13/2022 5.9 09/09/2021 6.1 06/08/2021 6.0 ) Last Ophthalmology exam was within the past 12 months Mr. Gage reports history of hyperlipidemia. Current therapy includes diet and exercise. Denies side effects of muscle weakness or achiness. His most recent lipid panels are reviewed. Cholesterol, Total (mg/dL) Date Value 09/13/2022 205 09/09/2021 246 HDL Cholesterol (mg/dL) Date Value 09/13/2022 37 09/09/2021 40 LDL Cholesterol (mg/dL) Date Value 09/13/2022 151 09/09/2021 178 Triglyceride (mg/dL) Date Value 09/13/2022 84 09/09/2021 142 Mr. Gage indicates a history of hypertension and states that he is feeling well and denies any symptoms referable to elevated blood pressure. Specifically denies headache, palpitations, and peripheral edema. Patient denies any side effects of his medication(s) and is compliant with their regimen. Last 3 Encounter BP Readings: Date: BP: 03/23/2023 112/70 11/30/2022 126/62 09/22/2022 110/60 He watches his diet for sodium, low fat and low cholesterol some of the time. He does check BP's generally and running 110-120/70-80s. Abraham gets minimal exercise. 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 09/2015 4.15 cm Acute gastritis without mention of hemorrhage 04/26/2017 EGD by [facility] Advance care planning 03/24/2022 [facility] can help with medical decision making AMI (acute myocardial infarction) (HCC) 07/03/2013 Carotid atherosclerosis 05/2014 CKD stage G3b/A2, GFR 30-44 and albumin creatinine ratio 30-299 mg/g (HCC) AVOID NEPHROTOXIC MEDICATIONS Diabetes mellitus type 2, uncontrolled, without complications Diaphragmatic hernia without mention of obstruction or gangrene Diverticulosis of colon (without mention of hemorrhage) 04/26/2017 colonoscopy by [facility] Esophagitis Generalized osteoarthrosis, unspecified site Internal hemorrhoid 04/26/2017 colonoscopy by [facility] Iron deficiency anemia Malignant neoplasm of prostate (HCC) Other and unspecified hyperlipidemia Unspecified cardiovascular disease 1994 CABG Unspecified constipation 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 CORONARY ENDARTERCOMY OPEN ANY METHOD 07/03/2013 Angioplasty Xience stent to L circumflex EGD 04/26/2017 [facility] Dr. Nolan Triana EGD TRANSORAL BIOPSY SINGLE/MULTIPLE 07/10/07 PAST SURGICAL HISTORY OF 01/26/08 stent placement ramus and prox ramus PAST SURGICAL HISTORY OF heart stents PROSTATECTOMY PERINEAL RADICAL 2000 Prostatectomy, radical- Dr. 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 Yousif Triana; next screening colonoscopy in 10yrs, [facility] UNLISTED DIAGNOSTIC GASTROENTEROLOGY PROCEDURE 06/06/2018 Social History Tobacco Use Smoking status: Former Packs/day: 2.00 Years: 20.00 Additional pack years: 0.00 Total pack years: 40.00 Types: Cigarettes, Pipe, Cigars Smokeless tobacco: Never Tobacco comments: quit in 1987 Vaping Use Vaping Use: Never used Substance Use Topics Alcohol use: Yes Comment: rarely Drug use: No FAMILY HISTORY Problem Relation Age of Onset Hypertension Father COPD Father Heart Mother Allergies: ALLERGIES Allergen Reactions Atorvastatin Unknown Crestor [Rosuvastat* Other: See Comments Muscle pain Glucosamine Unknown Nerve pain Motrin [Ibuprofen] Rash Pravastatin Other: See Comments muscle aches Qyoicdx-Aew-Lof Red* Other: See Comments myalgia Current Meds: allopurinol (ZYLOPRIM) 100 mg tablet^Take 1 tablet by mouth once daily.^Disp: 90 tablet^Rfl: 3 insulin glargine (BASAGLAR KWIKPEN U-100 INSULIN) 100 unit/mL (3 mL)^Inject 10 Units subcutaneouslydaily at bedtime.^Disp: 5 Each^Rfl: 3 blood sugar diagnostic (BLOOD GLUCOSE TEST) test strip^Test blood sugar(s) 1 times daily. Dx: Type 2 DM - Controlled E11.9 Insulin: Yes^Disp: 50 Strip^Rfl: 11 clopidogrel (PLAVIX) 75 mg tablet^Take 1 tablet by mouth once daily.^Disp: 90 tablet^Rfl: 3 amLODIPine (NORVASC) 10 mg tablet^Take 1 tablet by mouth once daily. In the evening^Disp: 90 tablet^Rfl: 3 carvedilol (COREG) 25 mg tablet^Take 1 tablet by mouth twice daily.^Disp: 180 tablet^Rfl: 3 blood sugar diagnostic (BLOOD GLUCOSE TEST) test strip^DM2, controlled. Use once daily to test blood sugar in the morning^Disp: 1 Strip^Rfl: 5 losartan (COZAAR) 50 mg tablet^Take 1 tablet by mouth once daily.^Disp: 90 tablet^Rfl: 3 isosorbide mononitrate ER (IMDUR) 30 mg 24 hr tablet^Take 1 tablet by mouth once daily.^Disp: 90 tablet^Rfl: 3 famotidine (PEPCID) 20 mg tablet^Take 1 tablet by mouth at bedtime as needed.^Disp: 90 tablet^Rfl: 3 blood sugar diagnostic (BLOOD GLUCOSE TEST) test strip^1 Strip three times daily. Test blood sugar(s)3 times daily. Dx: Type 2 DM - Uncontrolled, E11.65 Insulin: Yes^Disp: 300 Strip^Rfl: 3 CRANBERRY^^Disp: ^Rfl: milk thistle/NAC/dandel/turmer (LIVER COMPLEX ORAL)^Take by mouth.^Disp: ^Rfl: Insulin Kerby, Disposable, (BD ULTRA-FINE BENNY PEN NEEDLE) 32 gauge x ^Use once daily with Lantus as directed^Disp: 100 Each^Rfl: 3 flaxseed oil (OMEGA 3 ORAL)^Take by mouth.^Disp: ^Rfl: ferrous sulfate 325 mg (65 mg iron) tablet^Take 325 mg by mouth twice daily.^Disp: ^Rfl: cetirizine HCl (ZYRTEC) 10 mg chewable tablet^Take 10 mg by mouth once daily.^Disp: ^Rfl: COMPOUNDED PRESCRIPTION^kyloic Cholesterol 104^Disp: ^Rfl: cholecalciferol (VITAMIN D3) 5,000 unit tab^Take 5,000 Units by mouth twice daily.^Disp: ^Rfl: Lancets lancets^Use as instructed^Disp: 50 Each^Rfl: 0 furosemide (LASIX) 40 mg tablet^Take 1 tablet by mouth once daily.^Disp: 90 tablet^Rfl: 3 potassium chloride (KLOR-CON 10) 10 mEq tablet^Take 1 tablet by mouth once daily.^Disp: 90 tablet^Rfl: 3 VIT C/VIT E/LUTEIN/MIN/OMEGA-3 (OCUVITE ORAL)^Take by mouth.^Disp: ^Rfl: CHOLECALCIFEROL, VITAMIN D3, (VITAMIN D3 ORAL)^Take 600 mg by mouth once daily.^Disp: ^Rfl: coenzyme Q10 (COENZYME Q-10) 100 mg cap capsule^Take 1 capsule by mouth.^Disp: ^Rfl: 0 ONE DAILY MULTI-VITAMIN ORAL TAB^Take one(1) tablet daily.^Disp: ^Rfl: 0 CALTRATE-600 PLUS VITAMIN D3 600 MG-200 UNIT ORAL TAB^TAKE TWO TABLETS DAILY.^Disp: ^Rfl: 0 benzonatate (TESSALON PERLES) 100 mg capsule^Take 1 capsule by mouth three times daily as needed for cough.^Disp: 21 capsule^Rfl: 0 diclofenac sodium (VOLTAREN) 1 % topical gel^Apply 2 g to affected area four times daily.^Disp: 100g^Rfl: 0 hydrocortisone 2.5 % cream^Apply 1 application to affected area twice daily. Location: face^Disp: 30 g^Rfl: 2 Blood-Glucose Meter (FREESTYLE LITE METER) monitoring kit^1 Each as directed.^Disp: 1 Each^Rfl: 0 triamcinolone acetonide (KENALOG) 0.1 % cream^Apply 1 application to affected area twice daily as needed (rash). Apply sparingly to area for rash/itching.^Disp: 60 g^Rfl: 3 Review of Systems: The remainder of the review of systems is negative. PE: 03/23/23 1350 BP: 112/70 Pulse: (!) 58 Resp: 14 SpO2: 98% Weight: 78.9 kg (174 lb) Gen: A&O, NAD, non-toxic appearing, Pleasant, cooperative HEENT: NT/AC, PERRLA, EOMs intact b/l, nares clear and patent b/l, pharynx without erythema, exudate or lesions. Uvula midline. Hard of hearing, MMM, EACs without erythema or debris. TMs pearly walker with intact landmarks b/l. Neck: supple, No cervical LAD, no thyromegaly, no carotid bruits CV: RRR, normal S1 and S2, 2/6 HSM RUSB murmurs, no gallops, no rubs, Pulses 2+ and symmetric in UEand LE b/l Lungs: normal respiratory effort, CTA b/l, no wheezing or rhonchi or rales, mild dyspnea with conversation Abd: soft, overweight, NT, ND, +BS, no hepatosplenomegaly MS: reduced ROM b/l knees due to pain Reduced ROM thoracic and lumbar spine with b/l paraspinal muscle tension and pain Neuro: CN II-XII intact b/l, strength 4/5 b/l UE and LE, DTRs 2/4 UE and LE, sensation decreased b/l feet to knee areas. Skin: warm, dry, intact, No rashes or lesions on exposed skin. Foot exam: Monofilament abnormal on right and left feet. ASSESSMENT/PLAN: 1. SOB (shortness of breath) - ICD9: 786.05, ICD10: R06.02 (primary diagnosis) - need for cardiac work up, hx of CAD and cardiac stents in the past. Unsure cause of symptoms. Worsening symptoms, he can then also follow up with Registered Dietician as well. Will go to EMERGENCY DEPARTMENT if symptoms worsen. Has to avoid NSAIDs which he does due to his CKD - ECHO - PERFLUTREN LIPID MICROSPHERES 1.1 MG/ML INJECTION IN NS 10 ML - SODIUM CHLORIDE 0.9 % (FLUSH) INJECTION SYRINGE - XR CHEST 2V FRONTAL/LAT - NM CARDIAC PERF STRESS/PHARM - ECG COMPLETE 2. Coronary artery 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 rich plaque - ICD9: 414.00, 414.3, ICD10: I25.10, I25.83 - need for cardiac work up, hx of CAD and cardiac stents in the past. Unsure cause of symptoms. Worsening symptoms, he can then also follow up with Registered Dietician as well. Will go to EMERGENCY DEPARTMENT if symptoms worsen. Has to avoid NSAIDs which he does due to his CKD - ECHO - PERFLUTREN LIPID MICROSPHERES 1.1 MG/ML INJECTION IN NS 10 ML - SODIUM CHLORIDE 0.9 % (FLUSH) INJECTION SYRINGE - XR CHEST 2V FRONTAL/LAT - NM CARDIAC PERF STRESS/PHARM - ECG COMPLETE 3. Chest pain on breathing - ICD9: 786.52, ICD10: R07.1 - need for cardiac work up, hx of CAD and cardiac stents in the past. Unsure cause of symptoms. Worsening symptoms, he can then also follow up with Registered Dietician as well. Will go to EMERGENCY DEPARTMENT if symptoms worsen. Has to avoid NSAIDs which he does due to his CKD - ECHO - PERFLUTREN LIPID MICROSPHERES 1.1 MG/ML INJECTION IN NS 10 ML - SODIUM CHLORIDE 0.9 % (FLUSH) INJECTION SYRINGE - XR CHEST 2V FRONTAL/LAT - NM CARDIAC PERF STRESS/PHARM - ECG COMPLETE 4. Bilateral chronic knee pain - ICD9: 719.46, 338.29, ICD10: M25.561, M25.562, G89.29 Chronic, long standing, likely related to previous heavy lifting and work as well. Xrays as ordered, avoid steroids due to diabetesa - XR KNEE GENERAL 4V AP BOTH/PA BOTH/LAT/MERC BILATERAL 5. 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 - ICD9: 724.2, 338.29, ICD10: M54.50, G89.29 Chronic, long standing, likely related to previous heavy lifting and work as well. Xrays as ordered, avoid steroids due to diabetesa - XR LUMBAR GENERAL 3V AP/LAT/L5-S1 6. Type 2 diabetes mellitus with stage 4 chronic kidney disease, with long-term current use of insulin (HCC) - ICD9: 250.40, 585.4, V58.67, ICD10: E11.22, N18.4, Z79.4 - Controlled - Continue current medications - Blood glucose monitoring on a once daily schedule - Counseled on healthy diet and regular exercise - Discussed need for and benefit of weight loss. BMI 26.46 kg/(m^2) - eGFR: Stable - Counseled on avoiding NSAIDs, adequate hydration - Counseled on low sodium diet 7. Malignant neoplasm of prostate (HCC) - ICD9: 185, ICD10: C61 Hx of, PSA has been negative 8. 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) - ICD9: 414.01, 413.9, ICD10: I25.119 See above, need for cardiac testing 9. Other polyneuropathy - ICD9: 357.89, ICD10: G62.89 Likely related to chemical exposure in the past as well as his diabetes. 10. Essential hypertension, benign - ICD9: 401.1, ICD10: I10 - Controlled - Continue current medications - Recommend home blood pressure monitoring, to bring results to next visit - Encouraged sodium restriction, DASH or Mediterranean diet - Recommend regular aerobic exercise - Discussed need for and benefit of weight loss. BMI 26.46 kg/(m^2) 11. Gout of multiple sites, unspecified cause, unspecified chronicity - ICD9: 274.9, ICD10: M10.9 stable 12. Arthritis, multiple joint involvement - ICD9: 716.99, ICD10: M12.9 See above, chronic, worsening sypmtoms 13. Vitamin D deficiency - ICD9: 268.9, ICD10: E55.9 Continue supplement 14. CKD (chronic kidney disease) stage 4, GFR 15-29 ml/min ([facility]) - ICD9: 585.4, ICD10: N18.4 - eGFR: Stable - Counseled on avoiding NSAIDs, adequate hydration - Counseled on low sodium diet - Follow up with kidney medicine Samson Ragsdale DO To ER if develops chest pain, shortness of breath, or severe worsening of symptoms. Discussed risks, benefits, alternatives, and potential side effects of medications. Patient expressed understanding and agreed with the plan. Samson Ragsdale DO [address] [place] [address] documented [facility] this encounter[facility]08-07-[facility]23 Miscellaneous Notes* Telephone Encounter - Rama Belcher LPN - 03/07/2023 4:54 PM EDT Pt. informed. * Telephone Encounter - Desirae Irving APRN.CNP - 03/07/2023 3:58 PM EDT Lab orders are placed. Please make pt aware. Thank you, Desirae Irving APRN.DOLPHIN RESEARCHER * Telephone Encounter - Lorraine Szymanski - 03/07/2023 2:11 PM EDT Patient is requesting lab orders for upcoming appointment documented in this encounterKn[facility]07-[facility]-2023 Miscellaneous Notes* Telephone Encounter - Malu Galindo LPN - 02/02/2023 10:29 AM EDT Alphonso--09/22/22 Nov--08/23/23 Last refill--04/22/22 90 with 3 refills Last labs--09/13/22 * Telephone Encounter - Stephania Alan Pss - 02/02/2023 9:44 AM EDT Patient has been identified by name and date of : Yes Last office visit in this department: 09/22/2022 RX INSTRUCTIONS: Patient aware RX will be sent to pharmacy. No need to notify patient. Patient phones requesting refills as follows: Requested Prescriptions Pending Prescriptions Disp Refills allopurinol (ZYLOPRIM) 100 mg tablet 90 tablet 3 Sig: Take 1 tablet by mouth once daily. Please review and advise. Stephania Alan Pss documented in this encounterKn[facility]05-02-2023 History of Present illness Narrative* Tonny Nieves APRN.DOLPHIN RESEARCHER - 11/30/2022 12:36 PM EDT Subjective HPI HPI Abraham Gage is a 82 year old male who presents today for CC of cough, congestion. This started 2 weeks ago. Has tried otc medication for relief. Symptoms are worsened by nothing. Risk factors no known sick exposures. nonsmoker. .Patient presents with: Chest Congestion: cough x couple weeks 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 09/2015 4.15 cm Acute gastritis without mention of hemorrhage 04/26/2017 EGD by [facility] Advance care planning 03/24/2022 [facility] can help with medical decision making AMI (acute myocardial infarction) (HCC) 07/03/2013 Carotid atherosclerosis 05/2014 CKD stage G3b/A2, GFR 30-44 and albumin creatinine ratio 30-299 mg/g (HCC) AVOID NEPHROTOXIC MEDICATIONS Diabetes mellitus type 2, uncontrolled, without complications Diaphragmatic hernia without mention of obstruction or gangrene Diverticulosis of colon (without mention of hemorrhage) 04/26/2017 colonoscopy by [facility] Esophagitis Generalized osteoarthrosis, unspecified site Internal hemorrhoid 04/26/2017 colonoscopy by [facility] Iron deficiency anemia Malignant neoplasm of prostate (HCC) Other and unspecified hyperlipidemia Unspecified cardiovascular disease 1994 CABG Unspecified constipation 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 Nolan Triana EGD TRANSORAL BIOPSY SINGLE/MULTIPLE 07/10/07 PAST SURGICAL HISTORY OF 01/26/08 stent placement ramus and prox ramus PAST SURGICAL HISTORY OF heart stents PROSTATECTOMY PERINEAL RADICAL 2000 Prostatectomy, radical- Dr. 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 Yousif Triana; next screening colonoscopy in 10yrs, [facility] UNLISTED DIAGNOSTIC GASTROENTEROLOGY PROCEDURE 06/06/2018 ALLERGIES Atorvastatin, Crestor [Rosuvastatin Calcium], Glucosamine, Motrin [Ibuprofen], Pravastatin, and Utecneh-Fku-Nsy Reductase Inhibitors MEDICATIONS insulin glargine (BASAGLAR KWIKPEN U-100 INSULIN) 100 unit/mL (3 mL) Inject 10 Units subcutaneouslydaily at bedtime. blood sugar diagnostic (BLOOD GLUCOSE TEST) test strip Test blood sugar(s) 1 times daily. Dx: Type 2 DM - Controlled E11.9 Insulin: Yes clopidogrel (PLAVIX) 75 mg tablet Take 1 tablet by mouth once daily. amLODIPine (NORVASC) 10 mg tablet Take 1 tablet by mouth once daily. In the evening carvedilol (COREG) 25 mg tablet Take 1 tablet by mouth twice daily. blood sugar diagnostic (BLOOD GLUCOSE TEST) test strip DM2, controlled. Use once daily to test blood sugar in the morning losartan (COZAAR) 50 mg tablet Take 1 tablet by mouth once daily. isosorbide mononitrate ER (IMDUR) 30 mg 24 hr tablet Take 1 tablet by mouth once daily. allopurinol (ZYLOPRIM) 100 mg tablet Take 1 tablet by mouth once daily. benzonatate (TESSALON PERLES) 100 mg capsule Take 1 capsule by mouth three times daily as needed for cough. famotidine (PEPCID) 20 mg tablet Take 1 tablet by mouth at bedtime as needed. blood sugar diagnostic (BLOOD GLUCOSE TEST) test strip 1 Strip three times daily. Test blood sugar(s)3 times daily. Dx: Type 2 DM - Uncontrolled, E11.65 Insulin: Yes CRANBERRY milk thistle/NAC/dandel/turmer (LIVER COMPLEX ORAL) Take by mouth. Insulin Kerby, Disposable, (BD ULTRA-FINE BENNY PEN NEEDLE) 32 gauge x 5/32 Use once daily with Lantus as directed diclofenac sodium (VOLTAREN) 1 % topical gel Apply 2 g to affected area four times daily. flaxseed oil (OMEGA 3 ORAL) Take by mouth. hydrocortisone 2.5 % cream Apply 1 application to affected area twice daily. Location: face ferrous sulfate 325 mg (65 mg iron) tablet Take 325 mg by mouth twice daily. cetirizine HCl (ZYRTEC) 10 mg chewable tablet Take 10 mg by mouth once daily. COMPOUNDED PRESCRIPTION kyloic Cholesterol 104 cholecalciferol (VITAMIN D3) 5,000 unit tab Take 5,000 Units by mouth twice daily. Blood-Glucose Meter (FREESTYLE LITE METER) monitoring [...] mg by mouth once daily. coenzyme Q10 (COENZYME Q-10) 100 mg cap capsule Take 1 capsule by mouth. ONE DAILY MULTI-VITAMIN ORAL TAB Take one(1) tablet daily. CALTRATE-600 PLUS VITAMIN D3 600 MG-200 UNIT ORAL TAB TAKE TWO TABLETS DAILY. FAMILY HISTORY Problem Relation Age of Onset Hypertension Father COPD Father Heart Mother Social History Tobacco Use Smoking status: Former Packs/day: 2.00 Years: 20.00 Pack years: 40.00 Types: Cigarettes, Pipe, Cigars Smokeless tobacco: Never Tobacco comments: quit in 1987 Vaping Use Vaping Use: Never used Substance Use Topics Alcohol use: Yes Comment: rarely Drug use: No Review of Systems Constitutional: Negative for fever. HENT: Positive for congestion. Negative for ear pain, nosebleeds and sore throat. Respiratory: Positive for cough, shortness of breath and wheezing. Cardiovascular: Negative for chest pain. Musculoskeletal: Negative for neck pain. Skin: Negative for rash. Objective Blood pressure 126/62, pulse 64, temperature 36.3 C (97.3 F), resp. rate 18, weight 78.5 kg (173 lb), SpO2 97 %. Component Latest Ref Rng & Units 09/13/2022 Protein, Total 6.3 - 8.0 g/dL 6.8 Albumin 3.9 - 4.9 g/dL 4.0 Calcium 8.5 - 10.2 mg/dL 9.2 Bilirubin, Total 0.2 - 1.3 mg/dL 0.4 Alkaline Phosphatase 38 - 113 U/L 103 AST 14 - 40 U/L 13 (L) ALT 10 - 54 U/L 9 (L) Glucose 74 - 99 mg/dL 89 BUN 9 - 24 mg/dL 37 (H) Creatinine 0.73 - 1.22 mg/dL 2.41 (H) Sodium 136 - 144 mmol/L 142 Potassium 3.7 - 5.1 mmol/L 4.9 Chloride 97 - 105 mmol/L 105 CO2 22 - 30 mmol/L 26 Anion Gap 9 - 18 mmol/L 11 eGFR >=60 mL/min/1.73m 26 (L) Physical Exam Constitutional: General: He is not in acute distress. Appearance: He is not toxic-appearing or diaphoretic. HENT: Head: Normocephalic and atraumatic. Nose: Nose normal. Eyes: General: Lids are normal. No scleral icterus. Right eye: No discharge. Left eye: No discharge. Conjunctiva/sclera: Conjunctivae normal. Pupils: Pupils are equal, round, and reactive to light. Neck: Trachea: Trachea normal. Cardiovascular: Rate and Rhythm: Normal rate and regular rhythm. Heart sounds: Normal heart sounds. Pulmonary: Effort: Pulmonary effort is normal. Breath sounds: Wheezing (scattered bilat) present. No decreased breath sounds, rhonchi or rales. Musculoskeletal: Cervical back: Normal range of motion and neck supple. Lymphadenopathy: Cervical: No cervical adenopathy. Right cervical: No superficial cervical adenopathy. Left cervical: No superficial cervical adenopathy. Skin: Findings: No rash. Neurological: Mental Status: He is alert and oriented to person, place, and time. ASSESSMENT/PLAN: 1. Sinobronchitis - ICD9: 473.9, 490, ICD10: J32.9, J40 - Will begin treatment with as per antibiotic as written, see orders - Supportive care with plenty of fluids, rest, and analgesia prn. - Follow up in 3-5 days if symptoms persist or worsen. Agrees to plan Declines avs - DOXYCYCLINE MONOHYDRATE 100 MG TABLET - PREDNISONE 20 MG TABLET Tonny Nieves APRN.DOLPHIN RESEARCHER documented in this encounterKn[facility]03-29-2023 Miscellaneous Notes* Telephone Encounter - Lorraine Saravia RN - 10/27/2022 12:10 PM EDT Medication refill requested by Patient Please review and advise. Requested Prescriptions Pending Prescriptions Disp Refills insulin glargine (BASAGLAR KWIKPEN U-100 INSULIN) 100 unit/mL (3 mL) 5 Each 3 Sig: Inject 10 Units subcutaneously daily at bedtime. Last encounter with this provider: 09/22/2022 Next appt: 03/23/2023 Previous labs/tests for medication: Diabetes: Hemoglobin A1C (%) Date Value 09/13/2022 5.9 03/16/2022 6.1 09/09/2021 6.1 06/08/2021 6.0 Please advise. Thank you. Lorraine Saravia RN documented in this encounterKnox [facility]03-11-2023 Miscellaneous Notes* Telephone Encounter - Yeimy Arboleda LPN - 10/09/2022 9:30 AM EST Phoned patient and went over results, notes from Dr Ragsdale with understanding. * Telephone Encounter - Samson Ragsdale DO - 10/08/2022 4:58 PM EST Please inform patient that his carotid US shows IMPRESSION Compared to prior study of 03/23/2021, No change in degree of stenosis. Also his Abdominal ultrasound is showing IMPRESSION Compared to prior study of 03/23/2021, No significant change. No increase in diameter of aneurysm. documented in this encounterKn[facility]02-24-2023 Miscellaneous Notes* Telephone Encounter - Gertrudis Wang RN - 09/24/2022 9:28 AM EST Previous order needed diagnosis code. Last Office Visit: 09/22/2022 Future Office Visit: 03/23/2023 Requested Prescriptions Pending Prescriptions Disp Refills blood sugar diagnostic (BLOOD GLUCOSE TEST) test strip 50 Strip 11 Sig: Test blood sugar(s) 1 times daily. Dx: Type 2 DM - Controlled E11.9 Insulin: Yes Date of Last Labs: 09/13/2022 documented in this encounterKnox [facility]02-23-2023 History of Present illness Narrative* Samson Ragsdale DO - 09/23/2022 11:19 AM EST Patient presents with: F/U 3 Month HPI: Abraham Gage is a 82 year old male who presents to the office today for review of health conditions. Concerns today: CKD stage 3-4, has seen Dr. Quinteros Professor Of Mathematics in the last 1-2 years. Was told that he will likely progress to stage 5 and ESRD and need HD in 4-5 years from start of this change. 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 Mr. Gage has past history of diabetes. Since our last visit he denies excessive thirst or increased frequency of urination, chest pain or dyspnea , new or unusual visual symptoms, and low sugar/hypoglycemic reactions. Depression- no. Follows a diabetic diet some of the time. He is compliant with medication(s) and is tolerating med(s) without any side effects. He reports checking his glucose allan once a day schedule with sugars in the <150 range. Patient's last HgA1C was Hemoglobin A1C (%) Date Value 09/13/2022 5.9 03/16/2022 6.1 09/09/2021 6.1 06/08/2021 6.0 ) Last Ophthalmology exam was within the past 12 months Mr. Gage reports history of hyperlipidemia. Current therapy includes diet and exercise. Denies side effects of muscle weakness or achiness. His most recent lipid panels are reviewed. Cholesterol, Total (mg/dL) Date Value 09/13/2022 205 09/09/2021 246 HDL Cholesterol (mg/dL) Date Value 09/13/2022 37 09/09/2021 40 LDL Cholesterol (mg/dL) Date Value 09/13/2022 151 09/09/2021 178 Triglyceride (mg/dL) Date Value 09/13/2022 84 09/09/2021 142 Mr. Gage indicates a history of hypertension and states that he is feeling well and denies any symptoms referable to elevated blood pressure. Specifically denies headache, chest pain, palpitations, dyspnea, and peripheral edema. Patient denies any side effects of his medication(s) and is compliant with their regimen. Last 3 Encounter BP Readings: Date: BP: 09/22/2022 110/60 07/28/2022 136/72 03/23/2022 110/70 He watches his diet for sodium, low fat and low cholesterol some of the time. He does not check BP's generally. Abraham gets sporadic irregular exercise. 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 09/2015 4.15 cm Acute gastritis without mention of hemorrhage 04/26/2017 EGD by [facility] care planning 03/24/2022 [facility] can help with medical decision making AMI (acute myocardial infarction) (HCC) 07/03/2013 Carotid atherosclerosis 05/2014 CKD stage G3b/A2, GFR 30-44 and albumin creatinine ratio 30-299 mg/g (HCC) AVOID NEPHROTOXIC MEDICATIONS Diabetes mellitus type 2, uncontrolled, without complications Diaphragmatic hernia without mention of obstruction or gangrene Diverticulosis of colon (without mention of hemorrhage) 04/26/2017 colonoscopy by [facility] Esophagitis Generalized osteoarthrosis, unspecified site Internal hemorrhoid 04/26/2017 colonoscopy by [facility] Iron deficiency anemia Malignant neoplasm of prostate (HCC) Other and unspecified hyperlipidemia Unspecified cardiovascular disease 1994 CABG Unspecified constipation 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 Nolan Triana EGD TRANSORAL BIOPSY SINGLE/MULTIPLE 07/10/07 PAST SURGICAL HISTORY OF 01/26/08 stent placement ramus and prox ramus PAST SURGICAL HISTORY OF heart stents PROSTATECTOMY PERINEAL RADICAL 1999 Prostatectomy, radical- Dr. 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 Yousif Triana; next screening colonoscopy in 10yrs, [facility] UNLISTED DIAGNOSTIC GASTROENTEROLOGY PROCEDURE 06/06/2018 Social History Tobacco Use Smoking status: Former Packs/day: 2.00 Years: 20.00 Pack years: 40.00 Types: Cigarettes, Pipe, Cigars Smokeless tobacco: Never Tobacco comments: quit in 1987 Vaping Use Vaping Use: Never used Substance Use Topics Alcohol use: Yes Comment: rarely Drug use: No FAMILY HISTORY Problem Relation Age of Onset Hypertension Father COPD Father Heart Mother Allergies: ALLERGIES Allergen Reactions Atorvastatin Unknown Crestor [Rosuvastat* Other: See Comments Muscle pain Glucosamine Unknown Nerve pain Motrin [Ibuprofen] Rash Pravastatin Other: See Comments muscle aches Pukmpbk-[id number]-Flq Red* Other: See Comments myalgia Current Meds: losartan (COZAAR) 50 mg tablet Take 1 tablet by mouth once daily. isosorbide mononitrate ER (IMDUR) 30 mg 24 hr tablet Take 1 tablet by mouth once daily. allopurinol (ZYLOPRIM) 100 mg tablet Take 1 tablet by mouth once daily. insulin glargine (BASAGLAR KWIKPEN U-100 INSULIN) 100 unit/mL (3 mL) Inject 10 Units subcutaneouslydaily at bedtime. famotidine (PEPCID) 20 mg tablet Take 1 tablet by mouth at bedtime as needed. blood sugar diagnostic (BLOOD GLUCOSE TEST) test strip 1 Strip three times daily. Test blood sugar(s)3 times daily. Dx: Type 2 DM - Uncontrolled, E11.65 Insulin: Yes CRANBERRY milk thistle/NAC/dandel/turmer (LIVER COMPLEX ORAL) Take by mouth. Insulin Kerby, Disposable, (BD ULTRA-FINE BENNY PEN NEEDLE) 32 gauge x Use once daily with Lantus as directed diclofenac sodium (VOLTAREN) 1 % topical gel Apply 2 g to affected area four times daily. flaxseed oil (OMEGA 3 ORAL) Take by mouth. hydrocortisone 2.5 % cream Apply 1 application to affected area twice daily. Location: face ferrous sulfate 325 mg (65 mg iron) tablet Take 325 mg by mouth twice daily. cetirizine HCl (ZYRTEC) 10 mg chewable tablet Take 10 mg by mouth once daily. COMPOUNDED PRESCRIPTION kyloic Cholesterol 104 cholecalciferol (VITAMIN D3) 5,000 unit tab Take 5,000 Units by mouth twice daily. Blood-Glucose Meter (FREESTYLE LITE METER) monitoring [...] mg by mouth once daily. coenzyme Q10 (COENZYME Q-10) 100 mg cap capsule Take 1 capsule by mouth. ONE DAILY MULTI-VITAMIN ORAL TAB Take one(1) tablet daily. CALTRATE-600 PLUS VITAMIN D3 600 MG-200 UNIT ORAL TAB TAKE TWO TABLETS DAILY. clopidogrel (PLAVIX) 75 mg tablet Take 1 tablet by mouth once daily. amLODIPine (NORVASC) 10 mg tablet Take 1 tablet by mouth once daily. In the evening carvedilol (COREG) 25 mg tablet Take 1 tablet by mouth twice daily. blood sugar diagnostic (BLOOD GLUCOSE TEST) test strip DM2, controlled. Use once daily to test blood sugar in the morning benzonatate (TESSALON PERLES) 100 mg capsule Take 1 capsule by mouth three times daily as needed for cough. Review of Systems: The remainder of the review of systems is negative. PE: 09/22/22 1403 BP: 110/60 Pulse: 64 Resp: 20 Temp: 36.1 C (97 F) TempSrc: Right Tympanic Weight: 79.4 kg (175 lb) Gen: A&O, NAD, non-toxic appearing, Pleasant, hard of hearing, cooperative HEENT: NT/AC, PERRLA, EOMs intact b/l, nares clear and patent b/l, pharynx without erythema, exudate or lesions. Uvula midline. EACs without erythema or debris. TMs pearly walker with intact landmarks b/l. Hard of hearing Neck: supple, No cervical LAD, no thyromegaly, no carotid bruits CV: RRR, normal S1 and S2, 1/6 HSM RUSB soft blowing murmur, no gallops, no rubs, Pulses 2+ and symmetric in UE and LE b/l Lungs: normal respiratory effort, CTA b/l, no wheezing or rhonchi or rales Abd: soft, NT, ND, +BS, no hepatosplenomegaly MS: arthritis multiple joints and decreased ROM spine Neuro: CN II-XII intact b/l, strength 5/5 b/l UE and LE, DTRs 2/4 UE and LE, sensation intact. Skin: warm, dry, intact, No rashes or lesions on exposed skin. Foot exam: Monofilament abnormal on right and left feet. ASSESSMENT/PLAN: 1. Controlled type 2 diabetes mellitus without complication, without long-term current use of insulin (HCC) - ICD9: 250.00, ICD10: E11.9 (primary diagnosis) Controlled. - Continue current medications - Blood glucose monitoring on a once a day schedule - Encouraged regular aerobic exercise and weight loss - BP goal of <130/80 - LDL goal of <100 2. Hypertensive heart disease without heart failure - ICD9: 402.90, ICD10: I11.9 - good control - Continue current medication(s) - Encouraged dietary sodium restriction/DASH diet - Recommended regular aerobic exercise. - Recommend home blood pressure monitoring, to bring results in on next visit - Discussed need and benefit for weight loss. - Goal of BP <130/80 - CLOPIDOGREL 75 MG TABLET - US ABD AORTA COMPLETE VAS LAB - US CAROTID ARTERIES [facility]EL[facility] 3. Essential hypertension, benign - ICD9: 401.1, ICD10: I10 - suboptimal control - Continue current medication(s) - Encouraged dietary sodium restriction/DASH diet - Recommended regular aerobic exercise. - Recommend home blood pressure monitoring, to bring results in on next visit - Discussed need and benefit for weight loss. - Goal of BP <130/80 - AMLODIPINE 10 MG TABLET - US ABD AORTA COMPLETE VAS LAB - US CAROTID ARTERIES [facility] 4. Abdominal aortic aneurysm (AAA) without rupture, unspecified part ([facility]) - ICD9: 441.4, ICD10: I71.40 - recheck US - US ABD AORTA COMPLETE VAS LAB - US CAROTID ARTERIES [facility] 5. Atherosclerosis of common carotid artery - ICD9: 433.10, ICD10: I65.29 Recheck US as ordered - US ABD AORTA COMPLETE VAS LAB - US CAROTID ARTERIES [facility] 6. Coronary artery 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 rich plaque - ICD9: 414.00, 414.3, ICD10: I25.10, I25.83 Recheck US, f/u with Registered Dietician - US ABD AORTA COMPLETE VAS LAB - US CAROTID ARTERIES [facility] 7. Stenosis of left carotid artery - ICD9: 433.10, ICD10: I65.22 Recheck US, f/u with specialist - US CAROTID ARTERIES [facility] 8. CKD (chronic kidney disease) stage 4, GFR 15-29 ml/min ([facility]) - ICD9: 585.4, ICD10: N18.4 - eGFR: Stable - Counseled on avoiding regular use of NSAIDs, adequate hydration, potential risk of IV dye - Recommend maintaining A1c < 7% - Recommend maintaining blood pressure under 130/80 - Follow up with nephrology 9. Gout of multiple sites, unspecified cause, unspecified chronicity - ICD9: 274.9, ICD10: M10.9 - stable 10. Pure hypercholesterolemia - ICD9: 272.0, ICD10: E78.00 stable 11. Arthritis, multiple joint involvement - ICD9: 716.99, ICD10: M12.9 - stable Samson Ragsdale DO I spent 44 minutes in the visit, with more than 50% of the total [id number] time of the visit in counseling / coordination of care. To ER if develops chest pain, shortness of breath, or severe worsening of symptoms. Discussed risks, benefits, alternatives, and potential side effects of medications. Patient expressed understanding and agreed with the plan. Samson Ragsdale DO [address] [place] [address] documented in this encounterKnox [facility] Hospital01-06-2023 Miscellaneous Notes* Telephone Encounter - Camille Harper RN - 08/06/2022 8:34 AM EST Call placed to patient and detailed message left on secure voicemail. Patient to call back with questions and ask to speak to a triage nurse. Phone number left. Camille Harper RN * Telephone Encounter - Samson Ragsdale DO - 08/06/2022 7:57 AM EST Labs ordered, please inform patient Samson Ragsdale DO * Telephone Encounter - Camille Harper RN - 08/05/2022 2:51 PM EST Patient calls to request provider place lab orders prior to appointment 09/22/2022. Requesting HGBA1C,Lipid Panel, PSA, and CMP as well as anything else provider feels necessary. Pended requested labs but need diagnoses. Camille Harper RN documented in this encounterKnox [facility] Hospital12-28-2022 History of Present illness Narrative* Jocelin Lange PA-C - 07/28/2022 12:53 PM EST This note was created using IdentityForgeriter. Subjective Abraham Gage is a 82 year old male. HPI Patient presents with cough, chest congestion and shortness of breath over the past week. No fever.Denies sick contacts. No home COVID test done. He is diabetic. He is a former smoker but quit almost 30 years ago. He did smoke for 20 years. No chest pain. No vomiting or diarrhea. He has tried plain Mucinex and Mucinex sinus [id number]. Review of Systems Constitutional: Negative for fever. HENT: Positive for congestion and postnasal drip. Respiratory: Positive for cough and shortness of breath. Negative for wheezing. Cardiovascular: Negative. Gastrointestinal: Negative. Genitourinary: Negative. Musculoskeletal: Negative. All other systems reviewed and are negative. 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 09/2015 4.15 cm Acute gastritis without mention of hemorrhage 04/26/2017 EGD by [facility] Advance care planning 03/24/2022 [facility] can help with medical decision making AMI (acute myocardial infarction) (HCC) 07/03/2013 Carotid atherosclerosis 05/2014 CKD stage G3b/A2, GFR 30-44 and albumin creatinine ratio 30-299 mg/g (HCC) AVOID NEPHROTOXIC MEDICATIONS Diabetes mellitus type 2, uncontrolled, without complications Diaphragmatic hernia without mention of obstruction or gangrene Diverticulosis of colon (without mention of hemorrhage) 04/26/2017 colonoscopy by [facility] Esophagitis Generalized osteoarthrosis, unspecified site Internal hemorrhoid 04/26/2017 colonoscopy by [facility] Iron deficiency anemia Malignant neoplasm of prostate (HCC) Other and unspecified hyperlipidemia Unspecified cardiovascular disease 1994 CABG Unspecified constipation Unspecified hypertensive heart disease without heart failure Current Outpatient Medications Medication Sig Dispense Refill carvedilol (COREG) 25 mg tablet Take 1 tablet by mouth twice daily. 180 tablet 1 losartan (COZAAR) 50 mg tablet Take 1 tablet by mouth once daily. 90 tablet 3 isosorbide mononitrate ER (IMDUR) 30 mg 24 hr tablet Take 1 tablet by mouth once daily. 90 tablet 3 allopurinol (ZYLOPRIM) 100 mg tablet Take 1 tablet by mouth once daily. 90 tablet 3 amLODIPine (NORVASC) 10 mg tablet Take 1 tablet by mouth once daily. In the evening 90 tablet 3 benzonatate (TESSALON PERLES) 100 mg capsule Take 1 capsule by mouth three times daily as needed for cough. 21 capsule 0 clopidogrel (PLAVIX) 75 mg tablet Take 1 tablet by mouth once daily. 90 tablet 3 insulin glargine (BASAGLAR KWIKPEN U-100 INSULIN) 100 unit/mL (3 mL) Inject 10 Units subcutaneouslydaily at bedtime. 5 Pen 3 famotidine (PEPCID) 20 mg tablet Take 1 tablet by mouth at bedtime as needed. 90 tablet 3 blood sugar diagnostic (BLOOD GLUCOSE TEST) test strip 1 Strip three times daily. Test blood sugar(s)3 times daily. Dx: Type 2 DM - Uncontrolled, E11.65 Insulin: Yes 300 Strip 3 CRANBERRY milk thistle/NAC/dandel/turmer (LIVER COMPLEX ORAL) Take by mouth. Insulin Kerby, Disposable, (BD ULTRA-FINE BENNY PEN NEEDLE) 32 gauge x 5/32 Use once daily with Lantus as directed 100 Each 3 diclofenac sodium (VOLTAREN) 1 % topical gel Apply 2 g to affected area four times daily. 100 g 0 blood sugar diagnostic (BLOOD GLUCOSE TEST) test strip Use once daily to test blood sugar in the morning 1 Bottle 5 flaxseed oil (OMEGA 3 ORAL) Take by mouth. hydrocortisone 2.5 % cream Apply 1 application to affected area twice daily. Location: face 30 g 2 ferrous sulfate 325 mg (65 mg iron) tablet Take 325 mg by mouth twice daily. cetirizine HCl (ZYRTEC) 10 mg chewable tablet Take 10 mg by mouth once daily. COMPOUNDED PRESCRIPTION kyloic Cholesterol 104 cholecalciferol (VITAMIN D3) 5,000 unit tab Take 5,000 Units by mouth twice daily. Blood-Glucose Meter (FREESTYLE LITE METER) monitoring kit 1 Each as directed. 1 Each 0 Lancets lancets Use as instructed 50 Each 0 furosemide (LASIX) 40 mg tablet Take 1 tablet by mouth once daily. 90 tablet 3 potassium chloride (KLOR-CON 10) 10 mEq tablet Take 1 tablet by mouth once daily. 90 tablet 3 VIT C/VIT E/LUTEIN/MIN/OMEGA-3 (OCUVITE ORAL) Take by mouth. triamcinolone acetonide (KENALOG) 0.1 % cream Apply 1 application to affected area twice daily as needed (rash). Apply sparingly to area for rash/itching. 60 g 3 CHOLECALCIFEROL, VITAMIN D3, (VITAMIN D3 ORAL) Take 600 mg by mouth once daily. coenzyme Q10 (COENZYME Q-10) 100 mg cap capsule Take 1 capsule by mouth. 0 ONE DAILY MULTI-VITAMIN ORAL TAB Take one(1) tablet daily. 0 CALTRATE-600 PLUS VITAMIN D3 600 MG-200 UNIT ORAL TAB TAKE TWO TABLETS DAILY. 0 doxycycline (VIBRA-TABS) 100 mg tablet Take 1 tablet by mouth twice daily for 7 days. 14 tablet 0 predniSONE (DELTASONE) 20 mg tablet Take 2 tablets by mouth once daily for 5 days. 10 tablet 0 codeine-guaiFENesin (GUAIFENESIN AC) 10-100 mg/5 mL syrup Take 10 mL by mouth daily at bedtime for 5 days. 50 mL 0 No current facility-administered medications for this visit. PAST SURGICAL HISTORY Procedure Laterality Date BYP OTH/THN VEIN COMMON-IPSILATERAL CAROTID Carotid Endarectomy right COLONOSCOPY FLX DX W/COLLJ SPEC WHEN PFRMD 07/10/07 CORONARY ARTERY BYP W/VEIN & ARTERY GRAFT 1 VEIN 1994 CABG, single graft, Lupe Harris CORONARY ENDARTERCOMY OPEN ANY METHOD 07/03/2013 Angioplasty Xience stent to L circumflex EGD 04/26/2017 [facility] Dr. Nolan Triana EGD TRANSORAL BIOPSY SINGLE/MULTIPLE 07/10/07 PAST SURGICAL HISTORY OF 01/26/08 stent placement ramus and prox ramus PAST SURGICAL HISTORY OF heart stents PROSTATECTOMY PERINEAL RADICAL 1999 Prostatectomy, radical- Dr. 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 Yousif Triana; next screening colonoscopy in 10yrs, [facility] UNLISTED DIAGNOSTIC GASTROENTEROLOGY PROCEDURE 06/06/2018 FAMILY HISTORY Problem Relation Age of Onset Hypertension Father COPD Father Heart Mother Social History Tobacco Use Smoking status: Former Packs/day: 2.00 Years: 20.00 Pack years: 40.00 Types: Cigarettes, Pipe, Cigars Smokeless tobacco: Never Tobacco comments: quit in 1987 Vaping Use Vaping Use: Never used Substance Use Topics Alcohol use: Yes Comment: rarely Drug use: No Objective BP 136/72 Pulse 60 Temp 36.4 C (97.5 F) (Tympanic) Resp 18 Wt 79.4 kg (175 lb) SpO2 97% BMI 26.61 kg/m Physical Exam Vitals reviewed. Constitutional: Appearance: Normal appearance. HENT: Head: Normocephalic and atraumatic. Right Ear: Tympanic membrane, ear canal and external ear normal. Left Ear: Tympanic membrane, ear canal and external ear normal. Nose: Congestion present. Mouth/Throat: Mouth: Mucous membranes are moist. Pharynx: Oropharynx is clear. Cardiovascular: Rate and Rhythm: Normal rate and regular rhythm. Heart sounds: Normal heart sounds. Pulmonary: Effort: Pulmonary effort is normal. Breath sounds: Normal breath sounds. Musculoskeletal: Cervical back: Neck supple. Skin: General: Skin is warm and dry. Neurological: Mental Status: He is alert. Assessment and Plan ASSESSMENT/PLAN: 1. Bronchitis - ICD9: 490, ICD10: J40 Patient declined COVID testing. He had already tried Tessalon as well as dextromethorphan for coughand was not able to get any sleep.he has had robitussin with codeine previously, I did given him anrx for 5 days just night time dose. Discussed sedation of codeine and not to drive. Doxycycline and prednisone sent as well. - CODEINE 10 MG-GUAIFENESIN 100 MG/5 ML ORAL LIQUID Jocelin Lange PA-C documented in this encounterKnox [facility] Hospital11-10-2022 Miscellaneous Notes* Telephone Encounter - Pao Noel RN - 06/10/2022 12:40 PM EST Patient has been identified by name and date of : Yes Patient phones for refill(s): Requested Prescriptions Pending Prescriptions Disp Refills carvedilol (COREG) 25 mg tablet 180 tablet 1 Sig: Take 1 tablet by mouth twice daily. losartan (COZAAR) 50 mg tablet 90 tablet 3 Sig: Take 1 tablet by mouth once daily. isosorbide mononitrate ER (IMDUR) 30 mg 24 hr tablet 90 tablet 3 Sig: Take 1 tablet by mouth once daily. Date of last office visit in primary care: 03/23/22 Future visit: 09/22/22 Last 2 Encounter Wt Readings: Date: Wt: 03/23/2022 76.2 kg (168 lb) 11/25/2021 78 kg (172 lb) Previous labs/tests for medication: Blood Pressure: BUN (mg/dL) Date Value 03/16/2022 25 09/09/2021 31 Sodium (mmol/L) Date Value 03/16/2022 142 09/09/2021 142 Last 1 Encounter BP Readings: Date: BP: 03/23/2022 110/70 Please advise. Thank you. Pao Noel RN documented in this encounterKnox [facility] Hospital09-22-2022 Miscellaneous Notes* Telephone Encounter - Pao Noel RN - 04/22/2022 1:32 PM EDT Patient has been identified by name and date of : Yes Patient phones for refill(s): Requested Prescriptions Pending Prescriptions Disp Refills allopurinol (ZYLOPRIM) 100 mg tablet 90 tablet 3 Sig: Take 1 tablet by mouth once daily. Date of last office visit in primary care: 03/23/22 Future visit: 09/22/22 Last 2 Encounter Wt Readings: Date: Wt: 03/23/2022 76.2 kg (168 lb) 11/25/2021 78 kg (172 lb) Previous labs/tests for medication: Blood Pressure: BUN (mg/dL) Date Value 03/16/2022 25 09/09/2021 31 Sodium (mmol/L) Date Value 03/16/2022 142 09/09/2021 142 Last 1 Encounter BP Readings: Date: BP: 03/23/2022 110/70 Liver Function: ALT (U/L) Date Value 03/16/2022 10 09/09/2021 12 AST (U/L) Date Value 03/16/2022 16 09/09/2021 15 Please advise. Thank you. Pao Noel RN documented in this encounterKnox Community Hospital08-23-2022 Instructions* Patient Instructions* Samson Ragsdale DO - 03/23/2022 3:16 PM EDT Increase dose of amlodipine to 10 mg in the evening for blood pressure. [facility] History of Present illness Narrative* Samson Ragsdale DO - 03/23/2022 3:06 PM EDT No chief complaint on file. HPI: Abraham Gage is a 81 year old male who presents to the office today for review of health conditions. Concerns today: Iron deficiency anemia, taking iron supplement, tolerating well, fatigue improved. Hemoglobin (g/dL) Date Value 03/16/2022 13.4 09/09/2021 13.5 Hematocrit (%) Date Value 03/16/2022 42.1 09/09/2021 42.5 WBC (k/uL) Date Value 03/16/2022 10.05 09/09/2021 9.17 CKD stage 3-4, stable, no new symptoms, urinating without new changes- sometimes some difficulty with weak stream mostly in the morning- improved after drinking coffee and walking around for a while.Hasn't followed up with Urologist recently . Hx of prostatectomy. Glucose (mg/dL) Date Value 03/16/2022 81 09/09/2021 75 Potassium (mmol/L) Date Value 03/16/2022 4.6 09/09/2021 4.2 Sodium (mmol/L) Date Value 03/16/2022 142 09/09/2021 142 Chloride (mmol/L) Date Value 03/16/2022 105 09/09/2021 106 CO2 (mmol/L) Date Value 03/16/2022 25 09/09/2021 25 Creatinine (mg/dL) Date Value 03/16/2022 2.22 09/09/2021 2.11 BUN (mg/dL) Date Value 03/16/2022 25 09/09/2021 31 Anion Gap (mmol/L) Date Value 03/16/2022 12 09/09/2021 11 Calcium (mg/dL) Date Value 09/09/2021 9.8 Calcium, Total (mg/dL) Date Value 03/16/2022 9.6 Protein, Total (g/dL) Date Value 03/16/2022 6.8 09/09/2021 7.0 Albumin (g/dL) Date Value 03/16/2022 4.0 09/09/2021 4.2 Bilirubin, Total (mg/dL) Date Value 03/16/2022 0.4 09/09/2021 0.3 Alkaline Phosphatase (U/L) Date Value 03/16/2022 118 09/09/2021 105 AST (U/L) Date Value 03/16/2022 16 09/09/2021 15 ALT (U/L) Date Value 03/16/2022 10 09/09/2021 12 Gout, stable, no recent use of prednisone, diet controlled, avoids red meats and sausages etc. Mr. Gage has past history of diabetes. Since our last visit he denies excessive thirst or increased frequency of urination, chest pain or dyspnea , new or unusual visual symptoms, and low sugar/hypoglycemic reactions. Depression- no. Follows a diabetic diet some of the time. He is compliant with medication(s) and is tolerating med(s) without any side effects. He reports checking his glucose allan twice a day schedule with sugars in the fasting 90-110 range. Patient's last HgA1C was Hemoglobin A1C (%) Date Value 03/16/2022 6.1 12/07/2021 6.0 09/09/2021 6.1 06/08/2021 6.0 ) Last Ophthalmology exam was within the past 12 months Mr. Gage reports history of hyperlipidemia. Current therapy includes diet and exercise. Denies side effects of muscle weakness or achiness. His most recent lipid panels are reviewed. Cholesterol, Total (mg/dL) Date Value 12/07/2021 235 09/09/2021 246 HDL Cholesterol (mg/dL) Date Value 12/07/2021 36 09/09/2021 40 LDL Cholesterol (mg/dL) Date Value 12/07/2021 169 09/09/2021 178 Triglyceride (mg/dL) Date Value 12/07/2021 150 09/09/2021 142 Mr. Gage indicates a history of hypertension and states that he is feeling well and denies any symptoms referable to elevated blood pressure. Does feel that his BLOOD PRESSURE has been mildly elevated at home up to 140s/upper 80s. Intermittent. Specifically denies headache, chest pain, palpitations, and dyspnea. Patient denies any side effects of his medication(s) and is compliant with their regimen. Last 3 Encounter BP Readings: Date: BP: 03/23/2022 110/70 11/25/2021 136/70 09/15/2021 138/70 He watches his diet for sodium, low fat and low cholesterol some of the time. He does check BP's away from this office with average BP's in the 110-140/80s range. Abraham gets minimal exercise. 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 09/2015 4.15 cm Acute gastritis without mention of hemorrhage 04/26/2017 EGD by [facility] AMI (acute myocardial infarction) (HCC) 07/03/2013 Carotid atherosclerosis 05/2014 CKD stage G3b/A2, GFR 30-44 and albumin creatinine ratio 30-299 mg/g (HCC) AVOID NEPHROTOXIC MEDICATIONS Diabetes mellitus type 2, uncontrolled, without complications Diaphragmatic hernia without mention of obstruction or gangrene Diverticulosis of colon (without mention of hemorrhage) 04/26/2017 colonoscopy by [facility] Esophagitis Generalized osteoarthrosis, unspecified site Internal hemorrhoid 04/26/2017 colonoscopy by [facility] Iron deficiency anemia Malignant neoplasm of prostate (HCC) Other and unspecified hyperlipidemia Unspecified cardiovascular disease 1994 CABG Unspecified constipation 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 CORONARY ENDARTERCOMY OPEN ANY METHOD 07/03/2013 Angioplasty Xience stent to L circumflex EGD 04/26/2017 [facility] Dr. Nolan Triana EGD TRANSORAL BIOPSY SINGLE/MULTIPLE 07/10/07 PAST SURGICAL HISTORY OF 01/26/08 stent placement ramus and prox ramus PAST SURGICAL HISTORY OF heart stents PROSTATECTOMY PERINEAL RADICAL 1999 Prostatectomy, radical- Dr. 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 Yousif Triana; next screening colonoscopy in 10yrs, [facility] UNLISTED DIAGNOSTIC GASTROENTEROLOGY PROCEDURE 06/06/2018 Social History Tobacco Use Smoking status: Former Packs/day: 2.00 Years: 20.00 Pack years: 40.00 Types: Cigarettes, Pipe, Cigars Smokeless tobacco: Never Tobacco comments: quit in 1987 Vaping Use Vaping Use: Never used Substance Use Topics Alcohol use: Yes Comment: rarely Drug use: No FAMILY HISTORY Problem Relation Age of Onset Hypertension Father COPD Father Heart Mother Allergies: ALLERGIES Allergen Reactions Atorvastatin Unknown Crestor [Rosuvastat* Other: See Comments Muscle pain Glucosamine Unknown Nerve pain Motrin [Ibuprofen] Rash Pravastatin Other: See Comments muscle aches Rmdbbaf-Iey-Hnt Red* Other: See Comments myalgia Current Meds: carvedilol (COREG) 25 mg tablet Take 1 tablet by mouth twice daily. allopurinol (ZYLOPRIM) 100 mg tablet Take 1 tablet by mouth once daily. clopidogrel (PLAVIX) 75 mg tablet Take 1 tablet by mouth once daily. carvedilol (COREG) 6.25 mg tablet Take 1 tablet by mouth twice daily. Adding to 12.5 mg carvedilol dose twice a day insulin glargine (BASAGLAR KWIKPEN U-100 INSULIN) 100 unit/mL (3 mL) Inject 10 Units subcutaneouslydaily at bedtime. isosorbide mononitrate ER (IMDUR) 30 mg 24 hr tablet Take 1 tablet by mouth once daily. losartan (COZAAR) 50 mg tablet Take 1 tablet by mouth once daily. famotidine (PEPCID) 20 mg tablet Take 1 tablet by mouth at bedtime as needed. blood sugar diagnostic (BLOOD GLUCOSE TEST) test strip 1 Strip three times daily. Test blood sugar(s)3 times daily. Dx: Type 2 DM - Uncontrolled, E11.65 Insulin: Yes CRANBERRY milk thistle/NAC/dandel/turmer (LIVER COMPLEX ORAL) Take by mouth. Insulin Kerby, Disposable, (BD ULTRA-FINE BENNY PEN NEEDLE) 32 gauge x 5/32 Use once daily with Lantus as directed diclofenac sodium (VOLTAREN) 1 % topical gel Apply 2 g to affected area four times daily. blood sugar diagnostic (BLOOD GLUCOSE TEST) test strip Use once daily to test blood sugar in the morning flaxseed oil (OMEGA 3 ORAL) Take by mouth. hydrocortisone 2.5 % cream Apply 1 application to affected area twice daily. Location: face ferrous sulfate (IRON) 325 mg (65 mg iron) tablet Take 325 mg by mouth twice daily. cetirizine HCl (ZYRTEC) 10 mg chewable tablet Take 10 mg by mouth once daily. COMPOUNDED PRESCRIPTION kyloic Cholesterol 104 cholecalciferol (VITAMIN D-3) 5,000 unit tab Take 5,000 Units by mouth twice daily. Blood-Glucose Meter (FREESTYLE LITE METER) monitoring [...] UNIT ORAL TAB TAKE TWO TABLETS DAILY. amLODIPine (NORVASC) 10 mg tablet Take 1 tablet by mouth once daily. In the evening benzonatate (TESSALON PERLES) 100 mg capsule Take 1 capsule by mouth three times daily as needed for cough. Review of Systems: The remainder of the review of systems is negative. PE: 03/23/22 1432 BP: 110/70 Pulse: 64 Resp: 16 Temp: 36.4 C (97.5 F) TempSrc: Left Tympanic Weight: 76.2 kg (168 lb) Gen: A&O, NAD, non-toxic appearing, Pleasant, cooperative, hard of hearing HEENT: NT/AC, PERRLA, EOMs intact b/l, nares clear and patent b/l, pharynx without erythema, exudate or lesions. MMM, Uvula midline. EACs without erythema or debris. TMs pearly walker with intact landmarks b/l. Neck: supple, No cervical LAD, no thyromegaly, no carotid bruits CV: RRR, normal S1 and S2, 2/6 HSM RUSB murmurs, no gallops, no rubs, Pulses 2+ and symmetric in UEand LE b/l Lungs: normal respiratory effort, CTA b/l, no wheezing or rhonchi or rales Abd: soft, NT, ND, +BS, no hepatosplenomegaly MS: FROM all 4 extremities Neuro: CN II-XII intact b/l, strength 5/5 b/l UE and LE, DTRs 2/4 UE and LE, sensation intact. Skin: warm, dry, intact, No rashes or lesions on exposed skin. Foot exam: Monofilament abnormal on right and left feet. No edema' ASSESSMENT/PLAN: 1. Controlled type 2 diabetes mellitus without complication, without long-term current use of insulin ([facility]) - ICD9: 250.00, ICD10: E11.9 (primary diagnosis) Controlled. - Continue current medications - Encouraged regular aerobic exercise and weight loss 2. Essential hypertension, benign - ICD9: 401.1, ICD10: I10 - suboptimal control - Increase amlodipine (Norvasc) - Encouraged dietary sodium restriction/DASH diet - Recommended regular aerobic exercise. - Recommend home blood pressure monitoring, to bring results in on next visit - Goal of BP <130/80 - AMLODIPINE 10 MG TABLET 3. Hypertensive heart disease without heart failure - ICD9: 402.90, ICD10: I11.9 - suboptimal control - Increase amlodipine (Norvasc) - Recommended regular aerobic exercise. - Recommend home blood pressure monitoring, to bring results in on next visit - Goal of BP <130/80 4. 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 Gout of multiple sites, unspecified cause, unspecified chronicity - ICD9: 274.9, ICD10: M10.9 - stable 6. Arthritis, multiple joint involvement - ICD9: 716.99, ICD10: M12.9 stable 7. History of prostate cancer - ICD9: V10.46, ICD10: Z85.46 - stable 8. Other iron deficiency anemia - ICD9: 280.8, ICD10: D50.8 Resolved/improved with oral iron intake. Samson Ragsdale DO To ER if develops chest pain, shortness of breath, or severe worsening of symptoms. Discussed risks, benefits, alternatives, and potential side effects of medications. Patient expressed understanding and agreed with the plan. Samson Ragsdale DO [address] [place] [address] [facility] Miscellaneous Notes* Telephone Encounter - Camille Harper RN - 01/13/2022 10:50 AM EDT Patient has been identified by name and date of : Yes Patient phones for refill(s): Pending Prescriptions Disp Refills CARVEDILOL 25 MG TABLET Sig: Take 1 tablet by mouth twice daily. Patient requesting carvedilol refill and reports that his current dose is 25 mg twice daily. Date of last office visit with pcp: 09/15/2021 Future appt: 03/23/2022 Last 2 Encounter Wt Readings: Date: Wt: 11/25/2021 78 kg (172 lb) 09/15/2021 78.9 kg (174 lb) Previous labs/tests for medication: Blood Pressure: BUN (mg/dL) Date Value 12/07/2021 24 09/09/2021 31 Sodium (mmol/L) Date Value 12/07/2021 142 09/09/2021 142 Last 1 Encounter BP Readings: Date: BP: 11/25/2021 136/70 Liver Function: ALT (U/L) Date Value 12/07/2021 9 09/09/2021 12 AST (U/L) Date Value 12/07/2021 14 09/09/2021 15 Please advise. Thank you. Camille Harper RN documented [facility] Miscellaneous Notes* Telephone Encounter - Rama Belcher LPN - 12/04/2021 5:01 PM EDT Pt. informed. Rama Belcher LPN * Telephone Encounter - Lore Saenz APRN.CNP - 12/04/2021 3:59 PM EDT I agree that these blood pressures are a bit elevated. However, they're not dangerously high. As long as they don't continue to climb any higher, he is fine to discuss this with Dr. Ragsdale at his upcoming appointment. Lore Saenz APRN.JAIRON * Telephone Encounter - Obdulia Khan LPN - 12/04/2021 12:44 PM EDT Patient calling, states that his BP seems to be running too high. Over the last week it has been ranging from 144-161/70-81. Patient states that it was high when he was here last and is asking if he needs to do anything different. States that he has an appt on 12/15 with PCP. [facility]Kn[facility] History of Present illness Narrative* Abiola Hall (Rt), [place] - 09/18/2020 3:00 PM EST Radiology Service Progress Note PATIENT NAME: Abraham Gage DATE OF SERVICE: September 18, 2020 TIME: 3:04 PM PATIENT IDENTITY VERIFICATION COMPLETED USING TWO (2) IDENTIFIERS: Name and Date of confirmedby patient verbally. FALL SCREENING: Has the patient had 2 falls in the last year or 1 fall with injury or currently using an Ambulatory Assistive Device (Walker, Cane, Wheelchair, Crutches, etc.)? No PATIENT GENDER DATA: Male PATIENT RELEVANT IMPLANT DATA REVIEWED: Yes RADIOLOGY DEPARTMENT: General X-ray: Exam(s) Completed: Chest X-Ray PERIPHERAL IV DATA: Not applicable SIGNED BY: RT Kareem September 18, 2020 3:04 PM documented in this [facility]Kn[facility]11[facility] History of Present illness Narrative* Suzette Triplett (Rt), [place] - 06/09/2020 3:10 PM EST Radiology Service Progress Note PATIENT NAME: Abraahm Gage DATE OF SERVICE: June 09, 2020 TIME: 3:33 PM PATIENT IDENTITY VERIFICATION COMPLETED USING TWO (2) IDENTIFIERS: Name and Date of confirmedby patient verbally. FALL SCREENING: Has the patient had 2 falls in the last year or 1 fall with injury or currently using an Ambulatory Assistive Device (Walker, Cane, Wheelchair, Crutches, etc.)? No PATIENT GENDER DATA: Male PATIENT RELEVANT IMPLANT DATA REVIEWED: Not Applicable RADIOLOGY DEPARTMENT: General X-ray: Exam(s) Completed: Spine X-Ray(s): Cervical AP / LAT / OBL Upper Extremity X-Ray(s): Shoulder, AP / TRUE AP / SUPRA OUTLET left : PERIPHERAL IV DATA: Not applicable SIGNED BY: RT Missy June 09, 2020 3:33 PM documented in this encounterKn[facility]11-09-[facility] History of Past illness Narrative* Problem Noted Date Resolved Date Stage 3b chronic kidney disease 06/09/2020 09/20/2022 Pain of left scapula 06/09/2020 09/20/2022 Acute gout of right foot 08/28/2019 023 Hypertension, essential 08/28/2019 06/05/20 20 Disorder of prostate 02/06/2019 06/05/2020 Essential hypertension 11/07/2018 0 Foot pain, right 08/07/2018 09/20/2022 Generalized abdominal pain 05/01/201806/05 Blood in stool 05/01/2018 06/05/2020 Uncontrolled type 2 diabetes mellitus without complication, with long-term current use of insulin 08/03/2017 06/05/2020 Fatigue 07/04/2017 06/05/2020 CKD (chronic kidney disease) stage 3, GFR 30-59 ml/min 07/04/2017 03/06/2021 Diarrhea 07/04/2017 06/05/2020 Diabetes mellitus type 2, un controlled, without complications 09/07/2012 06/05/2020 Gout 01/04/2012 06/05/2020 AAA (abdominal aortic aneurysm) 01/04/2012 06/05/2020 Glucose intolerance (pre-diabetes) 03/23/2011 07/04/2014 CAD (coronary artery disease) 03/23/2011 Impaired fasting glucose 01/06/2009 014 Acute gastritis without mention of hemorrhage 06/05/2020 Unspecified constipation 05/11/2007 020 Dyspepsia and other specifie d disorders of function of stomach 05/11/2007 06/05/2020 Unspecified cardiovascular disease 09/20/2022 Overview: CABG Abdominal aneurysm without mention of rupture 06/05/2020 documented as of this encounter (statuses as of 09/23/2022) [facility] of Past illness Narrative* Problem Noted Date Resolved Date Stage 3b chronic kidney disease 06/09/2020 09/20/2022 Pain of left scapula 06/09/2020 09/20/2022 Acute gout of right foot 08/28/2019 023 Hypertension, essential 08/28/2019 06/05/20 20 Disorder of prostate 02/06/2019 06/05/2020 Essential hypertension 11/07/2018 0 Foot pain, right 08/07/2018 09/20/2022 Generalized abdominal pain 05/01/201806/05 Blood in stool 05/01/2018 06/05/2020 Uncontrolled type 2 diabetes mellitus without complication, with long-term current use of insulin 08/03/2017 06/05/2020 Fatigue 07/04/2017 06/05/2020 CKD (chronic kidney disease) stage 3, GFR 30-59 ml/min 07/04/2017 03/06/2021 Diarrhea 07/04/2017 06/05/2020 Diabetes mellitus type 2, un controlled, without complications 09/07/2012 06/05/2020 Gout 01/04/2012 06/05/2020 AAA (abdominal aortic aneurysm) 01/04/2012 06/05/2020 Glucose intolerance (pre-diabetes) 03/23/2011 07/04/2014 CAD (coronary artery disease) 03/23/2011 Impaired fasting glucose 01/06/2009 014 Acute gastritis without mention of hemorrhage 06/05/2020 Unspecified constipation 05/11/2007 020 Dyspepsia and other specifie d disorders of function of stomach 05/11/2007 06/05/2020 Unspecified cardiovascular disease 09/20/2022 Overview: CABG Abdominal aneurysm without mention of rupture 06/05/2020 documented as of this encounter (statuses as of 09/24/2022) [facility] of Past illness Narrative* Problem Noted Date Resolved Date Stage 3b chronic kidney disease 06/09/2020 09/20/2022 Pain of left scapula 06/09/2020 09/20/2022 Acute gout of right foot 08/28/2019 023 Hypertension, essential 08/28/2019 06/05/20 20 Disorder of prostate 02/06/2019 06/05/2020 Essential hypertension 11/07/2018 0 Foot pain, right 08/07/2018 09/20/2022 Generalized abdominal pain 05/01/201806/05 Blood in stool 05/01/2018 06/05/2020 Uncontrolled type 2 diabetes mellitus without complication, with long-term current use of insulin 08/03/2017 06/05/2020 Fatigue 07/04/2017 06/05/2020 CKD (chronic kidney disease) stage 3, GFR 30-59 ml/min 07/04/2017 03/06/2021 Diarrhea 07/04/2017 06/05/2020 Diabetes mellitus type 2, un controlled, without complications 09/07/2012 06/05/2020 Gout 01/04/2012 06/05/2020 AAA (abdominal aortic aneurysm) 01/04/2012 06/05/2020 Glucose intolerance (pre-diabetes) 03/23/2011 07/04/2014 CAD (coronary artery disease) 03/23/2011 Impaired fasting glucose 01/06/2009 014 Acute gastritis without mention of hemorrhage 06/05/2020 Unspecified constipation 05/11/2007 020 Dyspepsia and other specifie d disorders of function of stomach 05/11/2007 06/05/2020 Unspecified cardiovascular disease 09/20/2022 Overview: CABG Abdominal aneurysm without mention of rupture 06/05/2020 documented as of this encounter (statuses as of 10/09/2022) [facility] illness Narrative* Problem Noted Date Resolved Date Stage 3b chronic kidney disease 06/09/2020 09/20/2022 Pain of left scapula 06/09/2020 09/20/2022 Acute gout of right foot 08/28/2019 023 Hypertension, essential 08/28/2019 06/05/20 20 Disorder of prostate 02/06/2019 06/05/2020 Essential hypertension 11/07/2018 0 Foot pain, right 08/07/2018 09/20/2022 Generalized abdominal pain 05/01/201806/05 Blood in stool 05/01/2018 06/05/2020 Uncontrolled type 2 diabetes mellitus without complication, with long-term current use of insulin 08/03/2017 06/05/2020 Fatigue 07/04/2017 06/05/2020 CKD (chronic kidney disease) stage 3, GFR 30-59 ml/min 07/04/2017 03/06/2021 Diarrhea 07/04/2017 06/05/2020 Diabetes mellitus type 2, un controlled, without complications 09/07/2012 06/05/2020 Gout 01/04/2012 06/05/2020 AAA (abdominal aortic aneurysm) 01/04/2012 06/05/2020 Glucose intolerance (pre-diabetes) 03/23/2011 07/04/2014 CAD (coronary artery disease) 03/23/2011 Impaired fasting glucose 01/06/2009 014 Acute gastritis without mention of hemorrhage 06/05/2020 Unspecified constipation 05/11/2007 020 Dyspepsia and other specifie d disorders of function of stomach 05/11/2007 06/05/2020 Unspecified cardiovascular disease 09/20/2022 Overview: CABG Abdominal aneurysm without mention of rupture 06/05/2020 documented as of this encounter (statuses as of 10/27/2022) [facility] Narrative* Problem Noted Date Resolved Date Stage 3b chronic kidney disease 06/09/2020 09/20/2022 Pain of left scapula 06/09/2020 09/20/2022 Acute gout of right foot 08/28/2019 023 Hypertension, essential 08/28/2019 06/05/20 20 Disorder of prostate 02/06/2019 06/05/2020 Essential hypertension 11/07/2018 0 Foot pain, right 08/07/2018 09/20/2022 Generalized abdominal pain 05/01/201806/05 Blood in stool 05/01/2018 06/05/2020 Uncontrolled type 2 diabetes mellitus without complication, with long-term current use of insulin 08/03/2017 06/05/2020 Fatigue 07/04/2017 06/05/2020 CKD (chronic kidney disease) stage 3, GFR 30-59 ml/min 07/04/2017 03/06/2021 Diarrhea 07/04/2017 06/05/2020 Diabetes mellitus type 2, un controlled, without complications 09/07/2012 06/05/2020 Gout 01/04/2012 06/05/2020 AAA (abdominal aortic aneurysm) 01/04/2012 06/05/2020 Glucose intolerance (pre-diabetes) 03/23/2011 07/04/2014 CAD (coronary artery disease) 03/23/2011 Impaired fasting glucose 01/06/2009 014 Acute gastritis without mention of hemorrhage 06/05/2020 Unspecified constipation 05/11/2007 020 Dyspepsia and other specifie d disorders of function of stomach 05/11/2007 06/05/2020 Unspecified cardiovascular disease 09/20/2022 Overview: CABG Abdominal aneurysm without mention of rupture 06/05/2020 documented as of this encounter (statuses as of 11/30/2022) [facility] Narrative* Problem Noted Date Resolved Date Stage 3b chronic kidney disease 06/09/2020 09/20/2022 Pain of left scapula 06/09/2020 09/20/2022 Acute gout of right foot 08/28/2019 023 Hypertension, essential 08/28/2019 06/05/20 20 Disorder of prostate 02/06/2019 06/05/2020 Essential hypertension 11/07/2018 0 Foot pain, right 08/07/2018 09/20/2022 Generalized abdominal pain 05/01/201806/05 Blood in stool 05/01/2018 06/05/2020 Uncontrolled type 2 diabetes mellitus without complication, with long-term current use of insulin 08/03/2017 06/05/2020 Fatigue 07/04/2017 06/05/2020 CKD (chronic kidney disease) stage 3, GFR 30-59 ml/min 07/04/2017 03/06/2021 Diarrhea 07/04/2017 06/05/2020 Diabetes mellitus type 2, un controlled, without complications 09/07/2012 06/05/2020 Gout 01/04/2012 06/05/2020 AAA (abdominal aortic aneurysm) 01/04/2012 06/05/2020 Glucose intolerance (pre-diabetes) 03/23/2011 07/04/2014 CAD (coronary artery disease) 03/23/2011 Impaired fasting glucose 01/06/2009 014 Acute gastritis without mention of hemorrhage 06/05/2020 Unspecified constipation 05/11/2007 020 Dyspepsia and other specifie d disorders of function of stomach 05/11/2007 06/05/2020 Unspecified cardiovascular disease 09/20/2022 Overview: CABG Abdominal aneurysm without mention of rupture 06/05/2020 documented as of this encounter (statuses as of 02/02/2023) [facility] Narrative* Problem Noted Date Diagnosed Date Resolved Date Stage 3b chronic kidney disease 06/09/2020 09/20/2022 Pain of left scapula 06/09/2020 023 Acute gout of right foot 08/28/2019 Hypertension, essential 08/28/201911/2019 Disorder of prostate 02/06/2019 020 Essential hypertension 11/07/201806/05 Foot pain, right 08/07/2018 09/20/2022 Generalized abdominal pain 05/01/2018 1 08/05/2019 Blood in stool 05/01/2018 06/05/2020 Uncontrolled type 2 diabetes mellitus without complication, with long-term current use of insulin 08/03/2017 06/05/2020 Fatigue 07/04/2017 06/05/2020 CKD (chronic kidney disease) stage 3, GFR 30-59 ml/min 07/04/2017 03/06/2021 Diarrhea 07/04/2017 06/05/2020 Diabetes mellitus type 2, un controlled, without complications 09/07/2012 06/05/2020 Gout 01/04/2012 06/05/2020 AAA (abdominal aortic aneurysm) 01/04/2012 06/05/2020 Glucose intolerance (pre-diabetes) 03/23/2011 07/04/2014 CAD (coronary artery disease) 03/23/2011 09/20/2022 Impaired fasting glucose 01/06/200910/2013 Acute gastritis without mention of hemorrhage 07/10/20 07 06/05/2020 Unspecified constipation 05/11/200711/2019 Dyspepsia and other specifie d disorders of function of stomach 05/11/2007 06/05/2020 Unspecified cardiovascular disease 09/20/2022 Overview: CABG Abdominal aneurysm without mention of rupture 06/05/2020 documented as of this encounter (statuses as of 03/08/2023) [facility]11-09-2020 History of Past illness Narrative* Problem Noted Date Diagnosed Date Resolved Date Stage 3b chronic kidney disease 06/09/2020 09/20/2022 Pain of left scapula 06/09/2020 023 Acute gout of right foot 08/28/2019 Hypertension, essential 08/28/2019 1111/2019 Disorder of prostate 02/06/2019 020 Essential hypertension 11/07/201806/05 Foot pain, right 08/07/2018 09/20/2022 Generalized abdominal pain 05/01/2018 1 08/05/2019 Blood in stool 05/01/2018 06/05/2020 Uncontrolled type 2 diabetes mellitus without complication, with long-term current use of insulin 08/03/2017 06/05/2020 Fatigue 07/04/2017 06/05/2020 CKD (chronic kidney disease) stage 3, GFR 30-59 ml/min 07/04/2017 03/06/2021 Diarrhea 07/04/2017 06/05/2020 Diabetes mellitus type 2, un controlled, without complications 09/07/2012 06/05/2020 Gout 01/04/2012 06/05/2020 AAA (abdominal aortic aneurysm) 01/04/2012 06/05/2020 Glucose intolerance (pre-diabetes) 03/23/2011 07/04/2014 CAD (coronary artery disease) 03/23/2011 09/20/2022 Impaired fasting glucose 01/06/200910/2013 Acute gastritis without mention of hemorrhage 07/10/20 07 06/05/2020 Unspecified constipation 05/11/200711/2019 Dyspepsia and other specifie d disorders of function of stomach 05/11/2007 06/05/2020 Unspecified cardiovascular disease 09/20/2022 Overview: CABG Abdominal aneurysm without mention of rupture 06/05/2020 documented as of this encounter (statuses as of 03/24/2023) [facility]11-[facility]2020 History of Past illness Narrative* Problem Noted Date Diagnosed Date Resolved Date Stage 3b chronic kidney disease 06/09/2020 09/20/2022 Pain of left scapula 06/09/2020 023 Acute gout of right foot 08/28/2019 Hypertension, essential 08/28/201911/2019 Disorder of prostate 02/06/2019 020 Essential hypertension 11/07/201806/05 Foot pain, right 08/07/2018 09/20/2022 Generalized abdominal pain 05/01/2018 1 08/05/2019 Blood in stool 05/01/2018 06/05/2020 Uncontrolled type 2 diabetes mellitus without complication, with long-term current use of insulin 08/03/2017 06/05/2020 Fatigue 07/04/2017 06/05/2020 CKD (chronic kidney disease) stage 3, GFR 30-59 ml/min 07/04/2017 03/06/2021 Diarrhea 07/04/2017 06/05/2020 Diabetes mellitus type 2, un controlled, without complications 09/07/2012 06/05/2020 Gout 01/04/2012 06/05/2020 AAA (abdominal aortic aneurysm) 01/04/2012 06/05/2020 Glucose intolerance (pre-diabetes) 03/23/2011 07/04/2014 CAD (coronary artery disease) 03/23/2011 09/20/2022 Impaired fasting glucose 01/06/200910/2013 Acute gastritis without mention of hemorrhage 07/10/20 07 06/05/2020 Unspecified constipation 05/11/200711/2019 Dyspepsia and other specifie d disorders of function of stomach 05/11/2007 06/05/2020 Unspecified cardiovascular disease 09/20/2022 Overview: CABG Abdominal aneurysm without mention of rupture 06/05/2020 documented as of this encounter (statuses as of 03/25/2023) [facility]11-[facility]2020 History of Past illness Narrative* Problem Noted Date Diagnosed Date Resolved Date Stage 3b chronic kidney disease 06/09/2020 09/20/2022 Pain of left scapula 06/09/2020 023 Acute gout of right foot 08/28/2019 Hypertension, essential 08/28/201911/2019 Disorder of prostate 02/06/2019 020 Essential hypertension 11/07/201806/05 Foot pain, right 08/07/2018 09/20/2022 Generalized abdominal pain 05/01/2018 1 08/05/2019 Blood in stool 05/01/2018 06/05/2020 Uncontrolled type 2 diabetes mellitus without complication, with long-term current use of insulin 08/03/2017 06/05/2020 Fatigue 07/04/2017 06/05/2020 CKD (chronic kidney disease) stage 3, GFR 30-59 ml/min 07/04/2017 03/06/2021 Diarrhea 07/04/2017 06/05/2020 Diabetes mellitus type 2, un controlled, without complications 09/07/2012 06/05/2020 Gout 01/04/2012 06/05/2020 AAA (abdominal aortic aneurysm) 01/04/2012 06/05/2020 Glucose intolerance (pre-diabetes) 03/23/2011 07/04/2014 CAD (coronary artery disease) 03/23/2011 09/20/2022 Impaired fasting glucose 01/06/200910/2013 Acute gastritis without mention of hemorrhage 07/10/20 07 06/05/2020 Unspecified constipation 05/11/200711/2019 Dyspepsia and other specifie d disorders of function of stomach 05/11/2007 06/05/2020 Unspecified cardiovascular disease 09/20/2022 Overview: CABG Abdominal aneurysm without mention of rupture 06/05/2020 documented as of this encounter (statuses as of 05/09/2023) [facility]11-[facility]2020 History of Past illness Narrative* Problem Noted Date Diagnosed Date Resolved Date Stage 3b chronic kidney disease 06/09/2020 09/20/2022 Pain of left scapula 06/09/2020 023 Acute gout of right foot 08/28/2019 Hypertension, essential 08/28/201911/2019 Disorder of prostate 02/06/2019 020 Essential hypertension 11/07/201806/05 Foot pain, right 08/07/2018 09/20/2022 Generalized abdominal pain 05/01/2018 1 08/05/2019 Blood in stool 05/01/2018 06/05/2020 Uncontrolled type 2 diabetes mellitus without complication, with long-term current use of insulin 08/03/2017 06/05/2020 Fatigue 07/04/2017 06/05/2020 CKD (chronic kidney disease) stage 3, GFR 30-59 ml/min 07/04/2017 03/06/2021 Diarrhea 07/04/2017 06/05/2020 Diabetes mellitus type 2, un controlled, without complications 09/07/2012 06/05/2020 Gout 01/04/2012 06/05/2020 AAA (abdominal aortic aneurysm) 01/04/2012 06/05/2020 Glucose intolerance (pre-diabetes) 03/23/2011 07/04/2014 CAD (coronary artery disease) 03/23/2011 09/20/2022 Impaired fasting glucose 01/06/200910/2013 Acute gastritis without mention of hemorrhage 07/10/20 07 06/05/2020 Unspecified constipation 05/11/200711/2019 Dyspepsia and other specifie d disorders of function of stomach 05/11/2007 06/05/2020 Unspecified cardiovascular disease 09/20/2022 Overview: CABG Abdominal aneurysm without mention of rupture 06/05/2020 documented as of this encounter (statuses as of 05/16/2023) [facility]11[facility]2020 History of Past illness Narrative* Problem Noted Date Diagnosed Date Resolved Date Stage 3b chronic kidney disease 06/09/2020 09/20/2022 Pain of left scapula 06/09/2020 023 Acute gout of right foot 08/28/2019 Hypertension, essential 08/28/201911/2019 Disorder of prostate 02/06/2019 020 Essential hypertension 11/07/201806/05 Foot pain, right 08/07/2018 09/20/2022 Generalized abdominal pain 05/01/2018 1 08/05/2019 Blood in stool 05/01/2018 06/05/2020 Uncontrolled type 2 diabetes mellitus without complication, with long-term current use of insulin 08/03/2017 06/05/2020 Fatigue 07/04/2017 06/05/2020 CKD (chronic kidney disease) stage 3, GFR 30-59 ml/min 07/04/2017 03/06/2021 Diarrhea 07/04/2017 06/05/2020 Diabetes mellitus type 2, un controlled, without complications 09/07/2012 06/05/2020 Gout 01/04/2012 06/05/2020 AAA (abdominal aortic aneurysm) 01/04/2012 06/05/2020 Glucose intolerance (pre-diabetes) 03/23/2011 07/04/2014 CAD (coronary artery disease) 03/23/2011 09/20/2022 Impaired fasting glucose 01/06/200910/2013 Acute gastritis without mention of hemorrhage 07/10/20 07 06/05/2020 Unspecified constipation 05/11/200711/2019 Dyspepsia and other specifie d disorders of function of stomach 05/11/2007 06/05/2020 Unspecified cardiovascular disease 09/20/2022 Overview: CABG Abdominal aneurysm without mention of rupture 06/05/2020 documented as of this encounter (statuses as of 06/01/2023) [facility]2020 History of Past illness Narrative* Problem Noted Date Diagnosed Date Resolved Date Stage 3b chronic kidney disease 06/09/2020 09/20/2022 Pain of left scapula 06/09/2020 023 Acute gout of right foot 08/28/2019 Hypertension, essential 08/28/201911/2019 Disorder of prostate 02/06/2019 020 Essential hypertension 11/07/201806/05 Foot pain, right 08/07/2018 09/20/2022 Generalized abdominal pain 05/01/2018 1 08/05/2019 Blood in stool 05/01/2018 06/05/2020 Uncontrolled type 2 diabetes mellitus without complication, with long-term current use of insulin 08/03/2017 06/05/2020 Fatigue 07/04/2017 06/05/2020 CKD (chronic kidney disease) stage 3, GFR 30-59 ml/min 07/04/2017 03/06/2021 Diarrhea 07/04/2017 06/05/2020 Diabetes mellitus type 2, un controlled, without complications 09/07/2012 06/05/2020 Gout 01/04/2012 06/05/2020 AAA (abdominal aortic aneurysm) 01/04/2012 06/05/2020 Glucose intolerance (pre-diabetes) 03/23/2011 07/04/2014 CAD (coronary artery disease) 03/23/2011 09/20/2022 Impaired fasting glucose 01/06/200910/2013 Acute gastritis without mention of hemorrhage 07/10/20 07 06/05/2020 Unspecified constipation 05/11/200711/2019 Dyspepsia and other specifie d disorders of function of stomach 05/11/2007 06/05/2020 Unspecified cardiovascular disease 09/20/2022 Overview: CABG Abdominal aneurysm without mention of rupture 06/05/2020 documented as of this encounter (statuses as of 06/05/2023) [facility]11[facility]2020 History of Past illness Narrative* Problem Noted Date Diagnosed Date Resolved Date Stage 3b chronic kidney disease 06/09/2020 09/20/2022 Pain of left scapula 06/09/2020 023 Acute gout of right foot 08/28/2019 Hypertension, essential 08/28/201911/2019 Disorder of prostate 02/06/2019 020 Essential hypertension 11/07/201806/05 Foot pain, right 08/07/2018 09/20/2022 Generalized abdominal pain 05/01/2018 1 08/05/2019 Blood in stool 05/01/2018 06/05/2020 Uncontrolled type 2 diabetes mellitus without complication, with long-term current use of insulin 08/03/2017 06/05/2020 Fatigue 07/04/2017 06/05/2020 CKD (chronic kidney disease) stage 3, GFR 30-59 ml/min 07/04/2017 03/06/2021 Diarrhea 07/04/2017 06/05/2020 Diabetes mellitus type 2, un controlled, without complications 09/07/2012 06/05/2020 Gout 01/04/2012 06/05/2020 AAA (abdominal aortic aneurysm) 01/04/2012 06/05/2020 Glucose intolerance (pre-diabetes) 03/23/2011 07/04/2014 CAD (coronary artery disease) 03/23/2011 09/20/2022 Impaired fasting glucose 01/06/200910/2013 Acute gastritis without mention of hemorrhage 07/10/20 07 06/05/2020 Unspecified constipation 05/11/200711/2019 Dyspepsia and other specifie d disorders of function of stomach 05/11/2007 06/05/2020 Unspecified cardiovascular disease 09/20/2022 Overview: CABG Abdominal aneurysm without mention of rupture 06/05/2020 documented as of this encounter (statuses as of 06/05/2023) [facility]11-[facility]2020 History of Past illness Narrative* Problem Noted Date Diagnosed Date Resolved Date Stage 3b chronic kidney disease 06/09/2020 09/20/2022 Pain of left scapula 06/09/2020 023 Acute gout of right foot 08/28/2019 Hypertension, essential 08/28/201911/2019 Disorder of prostate 02/06/2019 020 Essential hypertension 11/07/201806/05 Foot pain, right 08/07/2018 09/20/2022 Generalized abdominal pain 05/01/2018 1 08/05/2019 Blood in stool 05/01/2018 06/05/2020 Uncontrolled type 2 diabetes mellitus without complication, with long-term current use of insulin 08/03/2017 06/05/2020 Fatigue 07/04/2017 06/05/2020 CKD (chronic kidney disease) stage 3, GFR 30-59 ml/min 07/04/2017 03/06/2021 Diarrhea 07/04/2017 06/05/2020 Diabetes mellitus type 2, un controlled, without complications 09/07/2012 06/05/2020 Gout 01/04/2012 06/05/2020 AAA (abdominal aortic aneurysm) 01/04/2012 06/05/2020 Glucose intolerance (pre-diabetes) 03/23/2011 07/04/2014 CAD (coronary artery disease) 03/23/2011 09/20/2022 Impaired fasting glucose 01/06/200910/2013 Acute gastritis without mention of hemorrhage 07/10/20 07 06/05/2020 Unspecified constipation 05/11/200711/2019 Dyspepsia and other specifie d disorders of function of stomach 05/11/2007 06/05/2020 Unspecified cardiovascular disease 09/20/2022 Overview: CABG Abdominal aneurysm without mention of rupture 06/05/2020 documented as of this encounter (statuses as of 06/21/2023) [facility]11[facility]2020 History of Past illness Narrative* Problem Noted Date Diagnosed Date Resolved Date Stage 3b chronic kidney disease 06/09/2020 09/20/2022 Pain of left scapula 06/09/2020 023 Acute gout of right foot 08/28/2019 Hypertension, essential 08/28/201911/2019 Disorder of prostate 02/06/2019 020 Essential hypertension 11/07/201806/05 Foot pain, right 08/07/2018 09/20/2022 Generalized abdominal pain 05/01/2018 1 08/05/2019 Blood in stool 05/01/2018 06/05/2020 Uncontrolled type 2 diabetes mellitus without complication, with long-term current use of insulin 08/03/2017 06/05/2020 Fatigue 07/04/2017 06/05/2020 CKD (chronic kidney disease) stage 3, GFR 30-59 ml/min 07/04/2017 03/06/2021 Diarrhea 07/04/2017 06/05/2020 Diabetes mellitus type 2, un controlled, without complications 09/07/2012 06/05/2020 Gout 01/04/2012 06/05/2020 AAA (abdominal aortic aneurysm) 01/04/2012 06/05/2020 Glucose intolerance (pre-diabetes) 03/23/2011 07/04/2014 CAD (coronary artery disease) 03/23/2011 09/20/2022 Impaired fasting glucose 01/06/200910/2013 Acute gastritis without mention of hemorrhage 07/10/20 07 06/05/2020 Unspecified constipation 05/11/200711/2019 Dyspepsia and other specifie d disorders of function of stomach 05/11/2007 06/05/2020 Unspecified cardiovascular disease 09/20/2022 Overview: CABG Abdominal aneurysm without mention of rupture 06/05/2020 documented as of this encounter (statuses as of 2023) [facility]11[facility]2020 History of Past illness Narrative* Problem Noted Date Diagnosed Date Resolved Date Stage 3b chronic kidney disease 06/09/2020 09/20/2022 Pain of left scapula 06/09/2020 023 Acute gout of right foot 08/28/2019 Hypertension, essential 08/28/201911/2019 Disorder of prostate 02/06/2019 020 Essential hypertension 11/07/201806/05 Foot pain, right 08/07/2018 09/20/2022 Generalized abdominal pain 05/01/2018 1 08/05/2019 Blood in stool 05/01/2018 06/05/2020 Uncontrolled type 2 diabetes mellitus without complication, with long-term current use of insulin 08/03/2017 06/05/2020 Fatigue 07/04/2017 06/05/2020 CKD (chronic kidney disease) stage 3, GFR 30-59 ml/min 07/04/2017 03/06/2021 Diarrhea 07/04/2017 06/05/2020 Diabetes mellitus type 2, un controlled, without complications 09/07/2012 06/05/2020 Gout 01/04/2012 06/05/2020 AAA (abdominal aortic aneurysm) 01/04/2012 06/05/2020 Glucose intolerance (pre-diabetes) 03/23/2011 07/04/2014 CAD (coronary artery disease) 03/23/2011 09/20/2022 Impaired fasting glucose 01/06/200910/2013 Acute gastritis without mention of hemorrhage 07/10/20 07 06/05/2020 Unspecified constipation 05/11/200711/2019 Dyspepsia and other specifie d disorders of function of stomach 05/11/2007 06/05/2020 Unspecified cardiovascular disease 09/20/2022 Overview: CABG Abdominal aneurysm without mention of rupture 06/05/2020 documented as of this encounter (statuses as of 07/21/2023) [facility]11[facility]2020 History of Past illness Narrative* Problem Noted Date Diagnosed Date Resolved Date Stage 3b chronic kidney disease 06/09/2020 09/20/2022 Pain of left scapula 06/09/2020 023 Acute gout of right foot 08/28/2019 Hypertension, essential 08/28/201911/2019 Disorder of prostate 02/06/2019 020 Essential hypertension 11/07/201806/05 Foot pain, right 08/07/2018 09/20/2022 Generalized abdominal pain 05/01/2018 1 08/05/2019 Blood in stool 05/01/2018 06/05/2020 Uncontrolled type 2 diabetes mellitus without complication, with long-term current use of insulin 08/03/2017 06/05/2020 Fatigue 07/04/2017 06/05/2020 CKD (chronic kidney disease) stage 3, GFR 30-59 ml/min 07/04/2017 03/06/2021 Diarrhea 07/04/2017 06/05/2020 Diabetes mellitus type 2, un controlled, without complications 09/07/2012 06/05/2020 Gout 01/04/2012 06/05/2020 AAA (abdominal aortic aneurysm) 01/04/2012 06/05/2020 Glucose intolerance (pre-diabetes) 03/23/2011 07/04/2014 CAD (coronary artery disease) 03/23/2011 09/20/2022 Impaired fasting glucose 01/06/200910/2013 Acute gastritis without mention of hemorrhage 07/10/20 07 06/05/2020 Unspecified constipation 05/11/200711/2019 Dyspepsia and other specifie d disorders of function of stomach 05/11/2007 06/05/2020 Unspecified cardiovascular disease 09/20/2022 Overview: CABG Abdominal aneurysm without mention of rupture 06/05/2020 documented as of this encounter (statuses as of 09/19/2023) [facility]11[facility]2020 History of Past illness Narrative* Problem Noted Date Diagnosed Date Resolved Date Stage 3b chronic kidney disease 06/09/2020 09/20/2022 Pain of left scapula 06/09/2020 023 Acute gout of right foot 08/28/2019 Hypertension, essential 08/28/201911/2019 Disorder of prostate 02/06/2019 020 Essential hypertension 11/07/201806/05 Foot pain, right 08/07/2018 09/20/2022 Generalized abdominal pain 05/01/2018 1 08/05/2019 Blood in stool 05/01/2018 06/05/2020 Uncontrolled type 2 diabetes mellitus without complication, with long-term current use of insulin 08/03/2017 06/05/2020 Fatigue 07/04/2017 06/05/2020 CKD (chronic kidney disease) stage 3, GFR 30-59 ml/min 07/04/2017 03/06/2021 Diarrhea 07/04/2017 06/05/2020 Diabetes mellitus type 2, un controlled, without complications 09/07/2012 06/05/2020 Gout 01/04/2012 06/05/2020 AAA (abdominal aortic aneurysm) 01/04/2012 06/05/2020 Glucose intolerance (pre-diabetes) 03/23/2011 07/04/2014 CAD (coronary artery disease) 03/23/2011 09/20/2022 Impaired fasting glucose 01/06/200910/2013 Acute gastritis without mention of hemorrhage 07/10/20 07 06/05/2020 Unspecified constipation 05/11/200711/2019 Dyspepsia and other specifie d disorders of function of stomach 05/11/2007 06/05/2020 Unspecified cardiovascular disease 09/20/2022 Overview: CABG Abdominal aneurysm without mention of rupture 06/05/2020 documented as of this encounter (statuses as of 10/07/2023) [facility] History of Past illness Narrative* Problem Noted Date Diagnosed Date Resolved Date Stage 3b chronic kidney disease 06/09/2020 09/20/2022 Pain of left scapula 06/09/2020 023 Acute gout of right foot 08/28/2019 Hypertension, essential 08/28/201911/2019 Disorder of prostate 02/06/2019 020 Essential hypertension 11/07/201806/05 Foot pain, right 08/07/2018 09/20/2022 Generalized abdominal pain 05/01/2018 1 08/05/2019 Blood in stool 05/01/2018 06/05/2020 Uncontrolled type 2 diabetes mellitus without complication, with long-term current use of insulin 08/03/2017 06/05/2020 Fatigue 07/04/2017 06/05/2020 CKD (chronic kidney disease) stage 3, GFR 30-59 ml/min 07/04/2017 03/06/2021 Diarrhea 07/04/2017 06/05/2020 Diabetes mellitus type 2, un controlled, without complications 09/07/2012 06/05/2020 Gout 01/04/2012 06/05/2020 AAA (abdominal aortic aneurysm) 01/04/2012 06/05/2020 Glucose intolerance (pre-diabetes) 03/23/2011 07/04/2014 CAD (coronary artery disease) 03/23/2011 09/20/2022 Impaired fasting glucose 01/06/200910/2013 Acute gastritis without mention of hemorrhage 07/10/20 07 06/05/2020 Unspecified constipation 05/11/200711/2019 Dyspepsia and other specifie d disorders of function of stomach 05/11/2007 06/05/2020 Unspecified cardiovascular disease 09/20/2022 Overview: CABG Abdominal aneurysm without mention of rupture 06/05/2020 documented as of this encounter (statuses as of 10/24/2023) [facility] History of Past illness Narrative* Problem Noted Date Diagnosed Date Resolved Date Stage 3b chronic kidney disease 06/09/2020 09/20/2022 Pain of left scapula 06/09/2020 023 Acute gout of right foot 08/28/2019 Hypertension, essential 08/28/201911/2019 Disorder of prostate 02/06/2019 020 Essential hypertension 11/07/201806/05 Foot pain, right 08/07/2018 09/20/2022 Generalized abdominal pain 05/01/2018 1 08/05/2019 Blood in stool 05/01/2018 06/05/2020 Uncontrolled type 2 diabetes mellitus without complication, with long-term current use of insulin 08/03/2017 06/05/2020 Fatigue 07/04/2017 06/05/2020 CKD (chronic kidney disease) stage 3, GFR 30-59 ml/min 07/04/2017 03/06/2021 Diarrhea 07/04/2017 06/05/2020 Diabetes mellitus type 2, un controlled, without complications 09/07/2012 06/05/2020 Gout 01/04/2012 06/05/2020 AAA (abdominal aortic aneurysm) 01/04/2012 06/05/2020 Glucose intolerance (pre-diabetes) 03/23/2011 07/04/2014 CAD (coronary artery disease) 03/23/2011 09/20/2022 Impaired fasting glucose 01/06/200910/2013 Acute gastritis without mention of hemorrhage 07/10/20 07 06/05/2020 Unspecified constipation 05/11/200711/2019 Dyspepsia and other specifie d disorders of function of stomach 05/11/2007 06/05/2020 Unspecified cardiovascular disease 09/20/2022 Overview: CABG Abdominal aneurysm without mention of rupture 06/05/2020 documented as of this encounter (statuses as of 11/15/2023) [facility] History of Past illness Narrative* Problem Noted Date Diagnosed Date Resolved Date Stage 3b chronic kidney disease 06/09/2020 09/20/2022 Pain of left scapula 06/09/2020 023 Acute gout of right foot 08/28/2019 Hypertension, essential 08/28/201911/2019 Disorder of prostate 02/06/2019 020 Essential hypertension 11/07/201806/05 Foot pain, right 08/07/2018 09/20/2022 Generalized abdominal pain 05/01/2018 1 08/05/2019 Blood in stool 05/01/2018 06/05/2020 Uncontrolled type 2 diabetes mellitus without complication, with long-term current use of insulin 08/03/2017 06/05/2020 Fatigue 07/04/2017 06/05/2020 CKD (chronic kidney disease) stage 3, GFR 30-59 ml/min 07/04/2017 03/06/2021 Diarrhea 07/04/2017 06/05/2020 Diabetes mellitus type 2, un controlled, without complications 09/07/2012 06/05/2020 Gout 01/04/2012 06/05/2020 AAA (abdominal aortic aneurysm) 01/04/2012 06/05/2020 Glucose intolerance (pre-diabetes) 03/23/2011 07/04/2014 CAD (coronary artery disease) 03/23/2011 09/20/2022 Impaired fasting glucose 01/06/200910/2013 Acute gastritis without mention of hemorrhage 07/10/20 07 06/05/2020 Unspecified constipation 05/11/200711/2019 Dyspepsia and other specifie d disorders of function of stomach 05/11/2007 06/05/2020 Unspecified cardiovascular disease 09/20/2022 Overview: CABG Abdominal aneurysm without mention of rupture 06/05/2020 documented as of this encounter (statuses as of 10/04/2023) [facility] History of Past illness Narrative* Problem Noted Date Resolved Date Hypertension, essential 08/28/2019 06/05/20 20 Disorder of prostate 02/06/2019 06/05/2020 Essential hypertension 11/07/2018 0 Generalized abdominal pain 05/01/201806/05 Blood in stool 05/01/2018 06/05/2020 Uncontrolled type 2 diabetes mellitus without complication, with long-term current use of insulin 08/03/2017 06/05/2020 Fatigue 07/04/2017 06/05/2020 CKD (chronic kidney disease) stage 3, GFR 30-59 ml/min 07/04/2017 03/06/2021 Diarrhea 07/04/2017 06/05/2020 Diabetes mellitus type 2, un controlled, without complications 09/07/2012 06/05/2020 Gout 01/04/2012 06/05/2020 AAA (abdominal aortic aneurysm) 01/04/2012 06/05/2020 Glucose intolerance (pre-diabetes) 03/23/2011 07/04/2014 Impaired fasting glucose 01/06/2009 014 Acute gastritis without mention of hemorrhage 06/05/2020 Unspecified constipation 05/11/2007 020 Dyspepsia and other specifie d disorders of function of stomach 05/11/2007 06/05/2020 Abdominal aneurysm without mention of rupture 06/05/2020 documented as of this encounter (statuses as of 12/04/2021) [facility] History of Past illness Narrative* Problem Noted Date Resolved Date Hypertension, essential 08/28/2019 06/05/20 20 Disorder of prostate 02/06/2019 06/05/2020 Essential hypertension 11/07/2018 0 Generalized abdominal pain 05/01/201806/05 Blood in stool 05/01/2018 06/05/2020 Uncontrolled type 2 diabetes mellitus without complication, with long-term current use of insulin 08/03/2017 06/05/2020 Fatigue 07/04/2017 06/05/2020 CKD (chronic kidney disease) stage 3, GFR 30-59 ml/min 07/04/2017 03/06/2021 Diarrhea 07/04/2017 06/05/2020 Diabetes mellitus type 2, un controlled, without complications 09/07/2012 06/05/2020 Gout 01/04/2012 06/05/2020 AAA (abdominal aortic aneurysm) 01/04/2012 06/05/2020 Glucose intolerance (pre-diabetes) 03/23/2011 07/04/2014 Impaired fasting glucose 01/06/2009 014 Acute gastritis without mention of hemorrhage 06/05/2020 Unspecified constipation 05/11/2007 020 Dyspepsia and other specifie d disorders of function of stomach 05/11/2007 06/05/2020 Abdominal aneurysm without mention of rupture 06/05/2020 documented as of this encounter (statuses as of 01/13/2022) [facility]01-28-2020 History of Past illness Narrative* Problem Noted Date Resolved Date Hypertension, essential 08/28/2019 06/05/20 20 Disorder of prostate 02/06/2019 06/05/2020 Essential hypertension 11/07/2018 0 Generalized abdominal pain 05/01/201806/05 Blood in stool 05/01/2018 06/05/2020 Uncontrolled type 2 diabetes mellitus without complication, with long-term current use of insulin 08/03/2017 06/05/2020 Fatigue 07/04/2017 06/05/2020 CKD (chronic kidney disease) stage 3, GFR 30-59 ml/min 07/04/2017 03/06/2021 Diarrhea 07/04/2017 06/05/2020 Diabetes mellitus type 2, un controlled, without complications 09/07/2012 06/05/2020 Gout 01/04/2012 06/05/2020 AAA (abdominal aortic aneurysm) 01/04/2012 06/05/2020 Glucose intolerance (pre-diabetes) 03/23/2011 07/04/2014 Impaired fasting glucose 01/06/2009 014 Acute gastritis without mention of hemorrhage 06/05/2020 Unspecified constipation 05/11/2007 020 Dyspepsia and other specifie d disorders of function of stomach 05/11/2007 06/05/2020 Abdominal aneurysm without mention of rupture 06/05/2020 documented as of this encounter (statuses as of 03/25/2022) [facility]01[facility]2020 History of Past illness Narrative* Problem Noted Date Resolved Date Hypertension, essential 08/28/2019 06/05/20 20 Disorder of prostate 02/06/2019 06/05/2020 Essential hypertension 11/07/2018 0 Generalized abdominal pain 05/01/201806/05 Blood in stool 05/01/2018 06/05/2020 Uncontrolled type 2 diabetes mellitus without complication, with long-term current use of insulin 08/03/2017 06/05/2020 Fatigue 07/04/2017 06/05/2020 CKD (chronic kidney disease) stage 3, GFR 30-59 ml/min 07/04/2017 03/06/2021 Diarrhea 07/04/2017 06/05/2020 Diabetes mellitus type 2, un controlled, without complications 09/07/2012 06/05/2020 Gout 01/04/2012 06/05/2020 AAA (abdominal aortic aneurysm) 01/04/2012 06/05/2020 Glucose intolerance (pre-diabetes) 03/23/2011 07/04/2014 Impaired fasting glucose 01/06/2009 014 Acute gastritis without mention of hemorrhage 06/05/2020 Unspecified constipation 05/11/2007 020 Dyspepsia and other specifie d disorders of function of stomach 05/11/2007 06/05/2020 Abdominal aneurysm without mention of rupture 06/05/2020 documented as of this encounter (statuses as of 04/22/2022) [facility] History of Past illness Narrative* Problem Noted Date Resolved Date Hypertension, essential 08/28/2019 06/05/20 20 Disorder of prostate 02/06/2019 06/05/2020 Essential hypertension 11/07/2018 0 Generalized abdominal pain 05/01/201806/05 Blood in stool 05/01/2018 06/05/2020 Uncontrolled type 2 diabetes mellitus without complication, with long-term current use of insulin 08/03/2017 06/05/2020 Fatigue 07/04/2017 06/05/2020 CKD (chronic kidney disease) stage 3, GFR 30-59 ml/min 07/04/2017 03/06/2021 Diarrhea 07/04/2017 06/05/2020 Diabetes mellitus type 2, un controlled, without complications 09/07/2012 06/05/2020 Gout 01/04/2012 06/05/2020 AAA (abdominal aortic aneurysm) 01/04/2012 06/05/2020 Glucose intolerance (pre-diabetes) 03/23/2011 07/04/2014 Impaired fasting glucose 01/06/2009 014 Acute gastritis without mention of hemorrhage 06/05/2020 Unspecified constipation 05/11/2007 020 Dyspepsia and other specifie d disorders of function of stomach 05/11/2007 06/05/2020 Abdominal aneurysm without mention of rupture 06/05/2020 documented as of this encounter (statuses as of 06/10/2022) [facility] History of Past illness Narrative* Problem Noted Date Resolved Date Hypertension, essential 08/28/2019 06/05/20 20 Disorder of prostate 02/06/2019 06/05/2020 Essential hypertension 11/07/2018 0 Generalized abdominal pain 05/01/201806/05 Blood in stool 05/01/2018 06/05/2020 Uncontrolled type 2 diabetes mellitus without complication, with long-term current use of insulin 08/03/2017 06/05/2020 Fatigue 07/04/2017 06/05/2020 CKD (chronic kidney disease) stage 3, GFR 30-59 ml/min 07/04/2017 03/06/2021 Diarrhea 07/04/2017 06/05/2020 Diabetes mellitus type 2, un controlled, without complications 09/07/2012 06/05/2020 Gout 01/04/2012 06/05/2020 AAA (abdominal aortic aneurysm) 01/04/2012 06/05/2020 Glucose intolerance (pre-diabetes) 03/23/2011 07/04/2014 Impaired fasting glucose 01/06/2009 014 Acute gastritis without mention of hemorrhage 06/05/2020 Unspecified constipation 05/11/2007 020 Dyspepsia and other specifie d disorders of function of stomach 05/11/2007 06/05/2020 Abdominal aneurysm without mention of rupture 06/05/2020 documented as of this encounter (statuses as of 08/03/2022) [facility] History of Past illness Narrative* Problem Noted Date Resolved Date Hypertension, essential 08/28/2019 06/05/20 20 Disorder of prostate 02/06/2019 06/05/2020 Essential hypertension 11/07/2018 0 Generalized abdominal pain 05/01/201806/05 Blood in stool 05/01/2018 06/05/2020 Uncontrolled type 2 diabetes mellitus without complication, with long-term current use of insulin 08/03/2017 06/05/2020 Fatigue 07/04/2017 06/05/2020 CKD (chronic kidney disease) stage 3, GFR 30-59 ml/min 07/04/2017 03/06/2021 Diarrhea 07/04/2017 06/05/2020 Diabetes mellitus type 2, un controlled, without complications 09/07/2012 06/05/2020 Gout 01/04/2012 06/05/2020 AAA (abdominal aortic aneurysm) 01/04/2012 06/05/2020 Glucose intolerance (pre-diabetes) 03/23/2011 07/04/2014 Impaired fasting glucose 01/06/2009 014 Acute gastritis without mention of hemorrhage 06/05/2020 Unspecified constipation 05/11/2007 020 Dyspepsia and other specifie d disorders of function of stomach 05/11/2007 06/05/2020 Abdominal aneurysm without mention of rupture 06/05/2020 documented as of this encounter (statuses as of 08/06/2022) [facility] Diagnosis Controlled type 2 diabetes mellitus without complication, without long-term current use of insulin (HCC)- Primary Essential hypertension, benign Hypertensive heart disease without heart failure Unspecified hypertensive heart disease without heart failure CKD (chronic kidney disease) stage 4, GFR 15-29 ml/min (HCC) Chronic kidney disease, Stage IV (severe) Gout of multiple sites, unspecified cause, unspecified chronicity Arthritis, multiple joint involvement Unspecified arthropathy, multiple sites History of prostate cancer Personal history of malignant neoplasm of prostate Other iron deficiency anemia [facility]* Diagnosis Gout of multiple sites, unspecified cause, unspecified chronicity [facility] Diagnosis CKD (chronic kidney disease) stage 4, GFR 15-29 ml/min (HCC) Chronic kidney disease, Stage IV (severe) Hypertensive heart disease without heart failure Unspecified hypertensive heart disease without heart failure [facility]* Diagnosis Bronchitis- Primary Bronchitis, not specified as acute or chronic documented [facility]* Diagnosis CKD (chronic kidney disease) stage 4, GFR 15-29 ml/min (HCC)- Primary Chronic kidney disease, Stage IV (severe) Gout of multiple sites, unspecified cause, unspecified chronicity Essential hypertension, benign Controlled type 2 diabetes mellitus without complication, without long-term current use of insulin (HCC) Pure hypercholesterolemia History of prostate cancer Personal history of malignant neoplasm of prostate Screening for prostate cancer Special screening for malignant neoplasm of prostate [facility]* Diagnosis Controlled type 2 diabetes mellitus without complication, without long-term current use of insulin (HCC)- Primary Hypertensive heart disease without heart failure Unspecified hypertensive heart disease without heart failure Essential hypertension, benign Abdominal aortic aneurysm (AAA) without rupture, unspecified part (HCC) Atherosclerosis of common carotid artery Coronary artery 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 rich plaque Stenosis of left carotid artery Occlusion and stenosis of carotid artery without mention of cerebral infarction CKD (chronic kidney disease) stage 4, GFR 15-29 ml/min (HCC) Chronic kidney disease, Stage IV (severe) Gout of multiple sites, unspecified cause, unspecified chronicity Pure hypercholesterolemia Arthritis, multiple joint involvement Unspecified arthropathy, multiple sites documented [facility]* Diagnosis 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, with long-term current use of insulin (HCC)- Primary [facility]* Diagnosis Sinobronchitis- Primary Unspecified sinusitis (chronic) [facility]* Diagnosis Gout of multiple sites, unspecified cause, unspecified chronicity [facility] Diagnosis Essential hypertension, benign- Primary CKD (chronic kidney disease) stage 4, GFR 15-29 ml/min (HCC) Chronic kidney disease, Stage IV (severe) 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, with long-term current use of insulin ([facility]) [facility] Diagnosis SOB (shortness of breath)- Primary Shortness of breath Coronary artery 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 rich plaque Chest pain on breathing Painful respiration Bilateral chronic knee pain Pain in joint, lower leg 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 Type 2 diabetes mellitus with stage 4 chronic kidney disease, with long-term current use of insulin (HCC) Malignant neoplasm of prostate (HCC) Malignant neoplasm of prostate 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) Other polyneuropathy Essential hypertension, benign Gout of multiple sites, unspecified cause, unspecified chronicity Arthritis, multiple joint involvement Unspecified arthropathy, multiple sites Vitamin D deficiency Unspecified vitamin D deficiency CKD (chronic kidney disease) stage 4, GFR 15-29 ml/min (HCC) Chronic kidney disease, Stage IV (severe) [facility]* Diagnosis Screening for ischemic heart disease- Primary [facility]* Diagnosis SOB (shortness of breath) Shortness of breath Coronary artery 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 rich plaque Chest pain on breathing Painful respiration [facility]* Diagnosis Bilateral carotid artery stenosis- Primary Occlusion and stenosis of carotid artery without mention of cerebral infarction Infrarenal abdominal aortic aneurysm (AAA) without rupture ([facility]) [facility]* Diagnosis Hypertensive heart disease without heart failure Unspecified hypertensive heart disease without heart failure [facility]* Diagnosis Type 2 diabetes mellitus with stage 4 chronic kidney disease, with long-term current use of insulin (HCC)- Primary Malignant neoplasm of prostate (HCC) Malignant neoplasm of prostate Essential hypertension, benign History of prostate cancer Personal history of malignant neoplasm of prostate [facility]* Diagnosis CKD (chronic kidney disease) stage 4, GFR 15-29 ml/min (HCC)- Primary Chronic kidney disease, Stage IV (severe) Hypertensive heart disease without heart failure Unspecified hypertensive heart disease without heart failure Essential hypertension, benign Diarrhea, unspecified type Complete atrioventricular block (HCC) Atrioventricular block, complete Malignant neoplasm of prostate (HCC) 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, with long-term current use of insulin (HCC) 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) Coronary artery 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 rich plaque Other polyneuropathy Gout of multiple sites, unspecified cause, unspecified chronicity Arthritis, multiple joint involvement Unspecified arthropathy, multiple sites Tinnitus, bilateral Unspecified tinnitus Other specified hearing loss of both ears Actinic keratosis [facility] Diagnosis 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, with long-term current use of insulin (HCC) [facility] Diagnosis 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, with long-term current use of insulin (HCC)- Primary Essential hypertension, benign [facility]* Diagnosis Chronic diarrhea- Primary Diarrhea Generalized abdominal pain Abdominal pain, generalized Other polyneuropathy Hypertensive kidney disease with chronic kidney disease stage IV (HCC) Unspecified hypertensive kidney disease with chronic kidney disease stage I through stage IV, or unspecified Essential hypertension, benign 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) Abdominal aortic aneurysm (AAA) without rupture, unspecified part (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, with long-term current use of insulin (HCC) Arthritis, multiple joint involvement Unspecified arthropathy, multiple sites Stage 3b chronic kidney disease (HCC) [facility]* Diagnosis Gout of multiple sites, unspecified cause, unspecified chronicity [facility]* Diagnosis 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, with long-term current use of insulin (HCC) [facility]* Diagnosis Gastroesophageal reflux disease without esophagitis- Primary Esophageal reflux Chronic diarrhea Diarrhea Generalized abdominal pain Abdominal pain, generalized [facility]* Diagnosis SOB (shortness of breath) Shortness of breath Coronary artery 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 rich plaque Chest pain on breathing Painful respiration 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 Bilateral chronic knee pain Pain in joint, lower leg [facility]* Diagnosis Hypertensive heart disease without heart failure Unspecified hypertensive heart disease without heart failure [facility] Diagnosis Cough [facility]* Diagnosis Pain of left scapula Disorder of bone and cartilage, unspecified Neck pain of over 3 months duration documented [facility] this [facility]* Diagnosis Cough [facility] this [facility]* Diagnosis Pre-operative examination- Primary Preoperative examination, unspecified Other polyneuropathy Abdominal aortic aneurysm (AAA) without rupture, unspecified part (HCC) 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, complete Essential hypertension, benign Hypertensive kidney disease with chronic kidney disease stage IV (HCC) Unspecified hypertensive kidney disease with chronic kidney disease stage I through stage IV, or unspecified Pure hypercholesterolemia Carotid atherosclerosis, bilateral Diaphragmatic hernia without obstruction and without gangrene 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, with long-term current use of insulin (HCC) Hypercalcemia Iron deficiency anemia due to chronic blood loss Iron deficiency anemia secondary to blood loss (chronic) History of prostate cancer Personal history of malignant neoplasm of prostate Gout of multiple sites, unspecified cause, unspecified chronicity Psoriasis Other psoriasis Dementia in other diseases classified elsewhere, unspecified severity, with mood disturbance (HCC) * Assessment & Plan Note - Obdulia Lauren APRN.CNP - 05/11/2024 10:24 AM EDT Associated Problem(s): Dementia in other diseases classified elsewhere, unspecified severity, with mood disturbance (HCC) Assessment: hx * Assessment & Plan Note - Obdulia Lauren APRN.CNP - 05/11/2024 10:23 AM EDT Associated Problem(s): Psoriasis Assessment: rx as needed * Assessment & Plan Note - Obdulia Lauren APRN.CNP - 05/11/2024 10:23 AM EDT Associated Problem(s): Gout of multiple sites Assessment: controlled on rx * Assessment & Plan Note - Obdulia Lauren APRN.CNP - 05/11/2024 10:22 AM EDT Associated Problem(s): History of prostate cancer Assessment: s/p prostatectomy * Assessment & Plan Note - Obdulia Lauren APRN.CNP - 05/11/2024 10:22 AM EDT Associated Problem(s): Iron deficiency anemia due to chronic blood loss Assessment: Hemoglobin (g/dL) Date Value 03/19/2024 12.5 09/09/2021 13.5 Hematocrit (%) Date Value 03/19/2024 39.3 09/09/2021 42.5 WBC (k/uL) Date Value 03/19/2024 10.63 09/09/2021 9.17 * Assessment & Plan Note - Obdulia Lauren APRN.CNP - 05/11/2024 10:22 AM EDT Associated Problem(s): Hypercalcemia Assessment: Calcium, Total Date Value Ref Range Status 03/19/2024 9.7 8.5 - 10.2 mg/dL Final * Assessment & Plan Note - Obdulia Lauren APRN.CNP - 05/11/2024 10:22 AM EDT Associated Problem(s): 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, with long-term current use of insulin (HCC) Assessment: IDDM Hemoglobin A1C (%) Date Value 03/19/2024 6.0 09/09/2021 6.1 * Assessment & Plan Note - Obdulia Lauren APRN.CNP - 05/11/2024 10:21 AM EDT Associated Problem(s): Diaphragmatic hernia Assessment: hx * Assessment & Plan Note - Obdulia Lauren APRN.CNP - 05/11/2024 10:19 AM EDT Associated Problem(s): Carotid atherosclerosis, bilateral Assessment: s/p right carotid endarterectomy, following vascular, last carotid US 09/2023, left ICA 40-59%, right ICA 20-39% and right subclavian artery 50-99% stenosis * Assessment & Plan Note - Obdulia Lauren APRN.CNP - 05/11/2024 10:15 AM EDT Associated Problem(s): Pure hypercholesterolemia Assessment: c/w statin * Assessment & Plan Note - Obdulia Lauren APRN.CNP - 05/11/2024 10:15 AM EDT Associated Problem(s): Hypertensive kidney disease with chronic kidney disease stage IV (HCC) Assessment: Creatinine Date Value Ref Range Status 03/19/2024 2.05 (H) 0.73 - 1.22 mg/dL Final 09/23/2023 2.30 (H) 0.73 - 1.22 mg/dL Final 03/14/2023 2.41 (H) 0.73 - 1.22 mg/dL Final 09/13/2022 2.41 (H) 0.73 - 1.22 mg/dL Final * Assessment & Plan Note - Obdulia Lauren APRN.CNP - 05/11/2024 10:15 AM EDT Associated Problem(s): Essential hypertension, benign Assessment: controlled on rx Last 14 BP Last 14 Encounter BP Readings: Date: BP: 05/09/2024 128/68 04/13/2024 116/57 03/26/2024 120/60 10/04/2023 137/68 09/26/2023 138/64 05/31/2023 122/58 03/23/2023 112/70 11/30/2022 126/62 09/22/2022 110/60 07/28/2022 136/72 03/23/2022 110/70 11/25/2021 136/70 09/15/2021 138/70 06/16/2021 120/60 * Assessment & Plan Note - Obdulia Lauren APRN.CNP - 05/11/2024 10:15 AM EDT Associated Problem(s): Complete atrioventricular block (HCC) Assessment: per PCP note 09/2023 this is stable, but no mention in [facility] notes of this. Pt has no h/o pacemaker/defibrillator. * Assessment & Plan Note - Obdulia Lauern APRN.CNP - 05/11/2024 10:13 AM EDT Associated Problem(s): 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) Assessment: s/p CABG 1994 and then followed a stent 2007, daily Plavix, received to hold Plavix 5 days and replace with Aspirin 81mg. [facility]. Last OV scanned into epic2023 and AC instructions and clearance [facility] as [facility] 04/16/2024 * Assessment & Plan Note - Obdulia Lauren APRN.CNP - 05/11/2024 10:11 AM EDT Associated Problem(s): Abdominal aortic aneurysm (AAA) without rupture (HCC) Assessment: under surveillance 10/04/2023 abd aorta US AORTA Abdominal aortic aneurysm measuring 4.3cm at mid. * Assessment & Plan Note - Obdulia Lauren APRN.CNP - 05/11/2024 10:11 AM EDT Associated Problem(s): Peripheral neuropathy Assessment: 2/2 DM, no tx documented in this encounter [facility] note* Diagnosis Bilateral carotid artery stenosis- Primary Occlusion and stenosis of carotid artery without mention of cerebral infarction Infrarenal abdominal aortic aneurysm (AAA) without rupture (HCC) documented in this encounter [facility] note* Diagnosis Pre-operative examination- Primary Preoperative examination, unspecified Other polyneuropathy Abdominal aortic aneurysm (AAA) without rupture, unspecified part (HCC) 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, complete Essential hypertension, benign Hypertensive kidney disease with chronic kidney disease stage IV (HCC) Unspecified hypertensive kidney disease with chronic kidney disease stage I through stage IV, or unspecified Pure hypercholesterolemia Carotid atherosclerosis, bilateral Diaphragmatic hernia without obstruction and without gangrene 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, with long-term current use of insulin (HCC) Hypercalcemia Iron deficiency anemia due to chronic blood loss Iron deficiency anemia secondary to blood loss (chronic) History of prostate cancer Personal history of malignant neoplasm of prostate Gout of multiple sites, unspecified cause, unspecified chronicity Psoriasis Other psoriasis Dementia in other diseases classified elsewhere, unspecified severity, with mood disturbance (HCC) Screening for colon cancer- Primary Special screening for malignant neoplasms, colon Chronic diarrhea Diarrhea Generalized abdominal pain Abdominal pain, generalized Gastroesophageal reflux disease without esophagitis Esophageal reflux documented in this encounter [facility] note* Diagnosis Pre-operative examination- Primary Preoperative examination, unspecified Other polyneuropathy Abdominal aortic aneurysm (AAA) without rupture, unspecified part (HCC) 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, complete Essential hypertension, benign Hypertensive kidney disease with chronic kidney disease stage IV (HCC) Unspecified hypertensive kidney disease with chronic kidney disease stage I through stage IV, or unspecified Pure hypercholesterolemia Carotid atherosclerosis, bilateral Diaphragmatic hernia without obstruction and without gangrene 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, with long-term current use of insulin (HCC) Hypercalcemia Iron deficiency anemia due to chronic blood loss Iron deficiency anemia secondary to blood loss (chronic) History of prostate cancer Personal history of malignant neoplasm of prostate Gout of multiple sites, unspecified cause, unspecified chronicity Psoriasis Other psoriasis Dementia in other diseases classified elsewhere, unspecified severity, with mood disturbance (HCC) Collagenous colitis- Primary Other and unspecified noninfectious gastroenteritis and colitis [facility]* Diagnosis Pre-operative examination- Primary Preoperative examination, unspecified Other polyneuropathy Abdominal aortic aneurysm (AAA) without rupture, unspecified part (HCC) 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, complete Essential hypertension, benign Hypertensive kidney disease with chronic kidney disease stage IV (HCC) Unspecified hypertensive kidney disease with chronic kidney disease stage I through stage IV, or unspecified Pure hypercholesterolemia Carotid atherosclerosis, bilateral Diaphragmatic hernia without obstruction and without gangrene 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, with long-term current use of insulin (HCC) Hypercalcemia Iron deficiency anemia due to chronic blood loss Iron deficiency anemia secondary to blood loss (chronic) History of prostate cancer Personal history of malignant neoplasm of prostate Gout of multiple sites, unspecified cause, unspecified chronicity Psoriasis Other psoriasis Dementia in other diseases classified elsewhere, unspecified severity, with mood disturbance (HCC) Lymphocytic colitis- Primary Other and unspecified noninfectious gastroenteritis and colitis documented in this encounter [facility] note* Diagnosis Pre-operative examination- Primary Preoperative examination, unspecified Other polyneuropathy Abdominal aortic aneurysm (AAA) without rupture, unspecified part (HCC) 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, complete Essential hypertension, benign Hypertensive kidney disease with chronic kidney disease stage IV (HCC) Unspecified hypertensive kidney disease with chronic kidney disease stage I through stage IV, or unspecified Pure hypercholesterolemia Carotid atherosclerosis, bilateral Diaphragmatic hernia without obstruction and without gangrene 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, with long-term current use of insulin (HCC) Hypercalcemia Iron deficiency anemia due to chronic blood loss Iron deficiency anemia secondary to blood loss (chronic) History of prostate cancer Personal history of malignant neoplasm of prostate Gout of multiple sites, unspecified cause, unspecified chronicity Psoriasis Other psoriasis Dementia in other diseases classified elsewhere, unspecified severity, with mood disturbance (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, with long-term current use of insulin (HCC)- Primary Essential hypertension, benign Hypertensive kidney disease with chronic kidney disease stage IV (HCC) Unspecified hypertensive kidney disease with chronic kidney disease stage I through stage IV, or unspecified Screening for prostate cancer Special screening for malignant neoplasm of [facility] Diagnosis Pre-operative examination- Primary Preoperative examination, unspecified Other polyneuropathy Abdominal aortic aneurysm (AAA) without rupture, unspecified part (HCC) 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, complete Essential hypertension, benign Hypertensive kidney disease with chronic kidney disease stage IV (HCC) Unspecified hypertensive kidney disease with chronic kidney disease stage I through stage IV, or unspecified Pure hypercholesterolemia Carotid atherosclerosis, bilateral Diaphragmatic hernia without obstruction and without gangrene 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, with long-term current use of insulin (HCC) Hypercalcemia Iron deficiency anemia due to chronic blood loss Iron deficiency anemia secondary to blood loss (chronic) History of prostate cancer Personal history of malignant neoplasm of prostate Gout of multiple sites, unspecified cause, unspecified chronicity Psoriasis Other psoriasis Dementia in other diseases classified elsewhere, unspecified severity, with mood disturbance (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, with long-term current use of insulin (HCC)- Primary Essential hypertension, benign CKD (chronic kidney disease) stage 4, GFR 15-29 ml/min (HCC) Chronic kidney disease, Stage IV (severe) Hypertensive heart disease without heart failure Unspecified hypertensive heart disease without heart failure Other polyneuropathy Hypertensive kidney disease with chronic kidney disease stage IV (HCC) Unspecified hypertensive kidney disease with chronic kidney disease stage I through stage IV, or unspecified Arthritis, multiple joint involvement Unspecified arthropathy, multiple sites Gout of multiple sites, unspecified cause, unspecified chronicity 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) Pure hypercholesterolemia Vitamin D deficiency Unspecified vitamin D deficiency [facility] Diagnosis Pre-operative examination- Primary Preoperative examination, unspecified Other polyneuropathy Abdominal aortic aneurysm (AAA) without rupture, unspecified part 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, complete Essential hypertension, benign Hypertensive kidney disease with chronic kidney disease stage IV (HCC) Unspecified hypertensive kidney disease with chronic kidney disease stage I through stage IV, or unspecified Pure hypercholesterolemia Carotid atherosclerosis, bilateral Diaphragmatic hernia without obstruction and without gangrene 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, with long-term current use of insulin (HCC) Hypercalcemia Iron deficiency anemia due to chronic blood loss Iron deficiency anemia secondary to blood loss (chronic) History of prostate cancer Personal history of malignant neoplasm of prostate Gout of multiple sites, unspecified cause, unspecified chronicity Psoriasis Other psoriasis Dementia in other diseases classified elsewhere, unspecified severity, with mood disturbance (HCC) Upper back pain- Primary Acute pain of both shoulders Type 2 diabetes mellitus without complication, with long-term current use of insulin (HCC) [facility] Diagnosis Pre-operative examination- Primary Preoperative examination, unspecified Other polyneuropathy Abdominal aortic aneurysm (AAA) without rupture, unspecified part 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, complete Essential hypertension, benign Hypertensive kidney disease with chronic kidney disease stage IV (HCC) Unspecified hypertensive kidney disease with chronic kidney disease stage I through stage IV, or unspecified Pure hypercholesterolemia Carotid atherosclerosis, bilateral Diaphragmatic hernia without obstruction and without gangrene 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, with long-term current use of insulin (HCC) Hypercalcemia Iron deficiency anemia due to chronic blood loss Iron deficiency anemia secondary to blood loss (chronic) History of prostate cancer Personal history of malignant neoplasm of prostate Gout of multiple sites, unspecified cause, unspecified chronicity Psoriasis Other psoriasis Dementia in other diseases classified elsewhere, unspecified severity, with mood disturbance (HCC) Acute pain of both shoulders Upper back pain [facility] Diagnosis Pre-operative examination- Primary Preoperative examination, unspecified Other polyneuropathy Abdominal aortic aneurysm (AAA) without rupture, unspecified part 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, complete Essential hypertension, benign Hypertensive kidney disease with chronic kidney disease stage IV (HCC) Unspecified hypertensive kidney disease with chronic kidney disease stage I through stage IV, or unspecified Pure hypercholesterolemia Carotid atherosclerosis, bilateral Diaphragmatic hernia without obstruction and without gangrene 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, with long-term current use of insulin (HCC) Hypercalcemia Iron deficiency anemia due to chronic blood loss Iron deficiency anemia secondary to blood loss (chronic) History of prostate cancer Personal history of malignant neoplasm of prostate Gout of multiple sites, unspecified cause, unspecified chronicity Psoriasis Other psoriasis Dementia in other diseases classified elsewhere, unspecified severity, with mood disturbance (HCC) Acute cough- Primary Acute non-recurrent maxillary sinusitis Acute cough [facility] Diagnosis Pre-operative examination- Primary Preoperative examination, unspecified Other polyneuropathy Abdominal aortic aneurysm (AAA) without rupture, unspecified part 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, complete Essential hypertension, benign Hypertensive kidney disease with chronic kidney disease stage IV (HCC) Unspecified hypertensive kidney disease with chronic kidney disease stage I through stage IV, or unspecified Pure hypercholesterolemia Carotid atherosclerosis, bilateral Diaphragmatic hernia without obstruction and without gangrene 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, with long-term current use of insulin (HCC) Hypercalcemia Iron deficiency anemia due to chronic blood loss Iron deficiency anemia secondary to blood loss (chronic) History of prostate cancer Personal history of malignant neoplasm of prostate Gout of multiple sites, unspecified cause, unspecified chronicity Psoriasis Other psoriasis Dementia in other diseases classified elsewhere, unspecified severity, with mood disturbance (HCC) Acute cough documented in this encounter [facility] course Narrative No data available for this section [facility] Reason for referral (narrative)* Outpatient Procedure (Routine) - Authorized Specialty Diagnoses / Procedures Referred By Contac t Referred To Contact [facility] Diagnoses Hypertensive heart disease without heart failure Essential hypertension, benign Abdominal aortic aneurysm (AAA) without rupture, unspecified part (HCC) Atherosclerosis of common carotid artery Coronary artery 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 rich plaque Stenosis of left carotid artery Procedures US CAROTID ARTERIES MELISSA VAS LAB DUPLEX SCAN EXTRACRANIAL ART COMPL BI STUDY Samson Ragsdale DO [address] [place] [address] [facility] [place] [address] [place] [id number] Referral ID Status Reason Start Date Expiration Date Visits Requested Visits Authorized [id number] Authorized Auto-Generat ed Referral 09/22/2022 09/22/2023 1 1 * Outpatient Procedure (Routine) - Authorized Specialty Diagnoses / Procedures Referred By Contac t Referred To Contact [facility] [place] Diagnoses Hypertensive heart disease without heart failure Essential hypertension, benign Abdominal aortic aneurysm (AAA) without rupture, unspecified part (HCC) Atherosclerosis of common carotid artery Coronary artery 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 rich plaque Procedures US ABD AORTA COMPLETE VAS LAB DUP-SCAN AORTA IVC ILIAC VASCL/BPGS COMPLETE Samson Ragsdale DO [address] [place] [address] [address] Referral ID Status Reason Start Date Expiration Date Visits Requested Visits Authorized [id number] Authorized Auto-Generat ed Referral 09/22/2022 09/22/2023 1 1 [facility] for referral (narrative)* Outpatient Procedure (Routine) - Authorized Specialty Diagnoses / Procedures Referred By Contac t Referred To Contact [facility] Diagnoses SOB (shortness of breath) Coronary artery 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 rich plaque Chest pain on breathing Procedures ECG COMPLETE ECG ROUTINE ECG W/LEAST 12 LDS W/I&R Samson Ragsdale DO [address] [place] [address] [id number] [place] [address] Referral ID Status Reason Start Date Expiration Date Visits Requested Visits Authorized [id number] Authorized Auto-Generat ed Referral 03/23/2023 03/22/2024 1 1 * Diagnostic Procedure Only (Routine) - Closed Specialty Diagnoses / Procedures [facility] Diagnoses Bilateral chronic knee pain Procedures XR KNEE GENERAL 4V AP BOTH/PA BOTH/LAT/MERC BILATERAL RADIOLOGIC EXAM KNEE COMPLETE 4/MORE VIEWS Samson Ragsdale DO [address] [place] [address] [place] [address] Referral ID Status Reason Start Date Expiration Date V isits Requested Visits Authorized [id number] Closed Auto-Generate d Referral 03/23/2023 04/21/2024 1 1 * Diagnostic Procedure Only (Routine) - Closed Specialty Diagnoses / Procedures [facility] To [facility]AG[facility] Diagnoses 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 Procedures XR LUMBAR GENERAL 3V AP/LAT/L5-S1 RADEX SPINE LUMBOSACRAL 2/3 VIEWS Samson Ragsdale DO [address] [place] [address] [place] [address] Referral ID Status Reason Start Date Expiration Date V isits Requested Visits Authorized [id number] Closed Auto-Generate d Referral 03/23/2023 04/21/2024 1 1 * Diagnostic Procedure Only (Routine) - Authorized Specialty Diagnoses / Procedures [facility] To [facility] Diagnoses SOB (shortness of breath) Coronary artery 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 rich plaque Chest pain on breathing Procedures NM CARDIAC PERF STRESS/PHARM MYOCARDIAL SPECT MULTIPLE STUDIES Samson Ragsdale DO [address] [place] [address] [facility] [address] [place] [address] Referral ID Status Reason Start Date Expiration Date Visits Requested Visits Authorized [id number] Authorized Auto-Generat ed Referral 03/23/2023 04/21/2024 1 1 * Outpatient Procedure (Routine) - Authorized Specialty Diagnoses / Procedures Referred By Contac t Referred To Contact [facility] [place] Diagnoses SOB (shortness of breath) Coronary artery 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 rich plaque Chest pain on breathing Procedures ECHO ECHO TTHRC R-T 2D W/WOM-MODE COMPL SPEC&COLR D Samson Ragsdale DO [address] [place] [address] [facility] [place] [address] [place] [address] Referral ID Status Reason Start Date Expiration Date Visits Requested Visits Authorized [id number] Authorized Auto-Generat ed Referral 03/23/2023 03/22/2024 1 1 [facility] for referral (narrative)* Diagnostic Procedure Only (Routine) - Closed Specialty Diagnoses / Procedures [facility] To Contact [facility] Diagnoses SOB (shortness of breath) Coronary artery 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 rich plaque Chest pain on breathing Procedures NM CARDIAC PERF STRESS/PHARM MYOCARDIAL SPECT MULTIPLE STUDIES Samson Ragsdale DO [address] [place] [address] [facility] [address] [place] [address] Referral ID Status Reason Start Date Expiration Date V isits Requested Visits Authorized [id number] Closed Auto-Generate d Referral 03/23/2023 04/21/2024 1 1 [facility] for referral (narrative)* Outpatient Procedure (Routine) - Authorized Specialty Diagnoses / Procedures Referred By Contac t Referred To Contact [facility] [place] Diagnoses Infrarenal abdominal aortic aneurysm (AAA) without rupture (HCC) Procedures US ABD AORTA COMPLETE VAS LAB DUP-SCAN AORTA IVC ILIAC VASCL/BPGS COMPLETE Brittany West, DO [address] [place] [address] [facility] [place] [address] [place] [address] Referral ID Status Reason Start Date Expiration Date Visits Requested Visits Authorized [id number] Authorized Auto-Generat ed Referral 3 05/30/2024 1 1 * Outpatient Procedure (Routine) - Authorized Specialty Diagnoses / Procedures Referred By Contac t Referred To Contact [facility] [place] Diagnoses Bilateral carotid artery stenosis Procedures US CAROTID ARTERIES MELISSA VAS LAB DUPLEX SCAN EXTRACRANIAL ART COMPL BI STUDY Brittany West DO [address] [place] [id number] [place] [id number] Referral ID Status Reason Start Date Expiration Date Visits Requested Visits Authorized [id number] Authorized Auto-Generat ed Referral 3 05/30/2024 1 1 [facility] for referral (narrative)* Outpatient Procedure (Routine) - Authorized Specialty Diagnoses / Procedures Referred By Contac t Referred To Contact [facility] Diagnoses Generalized abdominal pain Gastroesophageal reflux disease without esophagitis Procedures EGD DIAGNOSTIC ESOPHAGOGASTRODUODENOSC OPY TRANSORAL DIAGNOSTIC Cristela Andersen APRN.DOLPHIN RESEARCHER [address] [place] [address] [address] Referral ID Status Reason Start Date Expiration Date Visits Requested Visits Authorized [id number] Authorized Auto-Generat ed Referral 04/16/2024 04/16/2025 1 1 * Outpatient Procedure (Routine) - Authorized Specialty Diagnoses / Procedures Referred By Contac t Referred To Contact [facility] Diagnoses Chronic diarrhea Generalized abdominal pain Procedures COLONOSCOPY DIAGNOSTIC COLONOSCOPY FLX DX W/COLLJ SPEC WHEN PFCristela Foster APRN.DOLPHIN RESEARCHER [address] [place] [address] [facility] [address] [place] [address] Referral ID Status Reason Start Date Expiration Date Visits Requested Visits Authorized [id number] Authorized Auto-Generat ed Referral 04/16/2024 04/16/2025 1 1 [facility] for referral (narrative)* Diagnostic Procedure Only (Routine) - Closed Specialty Diagnoses / Procedures Referred By Contac t Referred To Contact XR IMAGING Diagnoses Bilateral chronic knee pain Procedures XR KNEE GENERAL 4V AP BOTH/PA BOTH/LAT/MERC BILATERAL RADIOLOGIC EXAM KNEE COMPLETE 4/MORE VIEWS Samson Ragsdale, DO [address] [place] [address] [place] [address] Referral ID Status Reason Start Date Expiration Date V isits Requested Visits Authorized [id number] Closed Auto-Generate d Referral 03/23/2023 04/21/2024 1 1 * Diagnostic Procedure Only (Routine) - Closed Specialty Diagnoses / Procedures Referred By Contac t Referred To Contact XR IMAGING Diagnoses 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 Procedures XR LUMBAR GENERAL 3V AP/LAT/L5-S1 RADEX SPINE LUMBOSACRAL 2/3 VIEWS Samson Ragsdale, DO [address] [place] [address] Xr Imaging [facility] Referral ID Status Reason Start Date Expiration Date V isits Requested Visits Authorized [id number] Closed Auto-Generate d Referral 03/23/2023 04/21/2024 1 1 [facility] for referral (narrative)* Outpatient Procedure (Routine) - Pending Review Specialty Diagnoses / Procedures Referred By Contac t Referred To [facility] Diagnoses Bilateral carotid artery stenosis Procedures US CAROTID ARTERIES MELISSA VAS LAB DUPLEX SCAN EXTRACRANIAL ART COMPL BI STUDY Brittany West, DO [address] [place] [address] [facility] [place] [address] [place] [address] Referral ID Status Reason Start Date Expiration Date Visits Requested Visits Authorized [id number] Pending Review Auto-Generat ed Referral 10/04/2023 10/03/2024 1 1 * Outpatient Procedure (Routine) - Pending Review Specialty Diagnoses / Procedures Referred By Contac t Referred To Contact [facility] Diagnoses Infrarenal abdominal aortic aneurysm (AAA) without rupture (HCC) Procedures US ABD AORTA COMPLETE VAS LAB DUP-SCAN AORTA IVC ILIAC VASCL/BPGS COMPLETE Brittany West DO [address] [place] [address] [address] Referral ID Status Reason Start Date Expiration Date Visits Requested Visits Authorized [id number] Pending Review Auto-Generat ed Referral 10/04/2023 10/03/2024 1 1 [facility] for referral (narrative)* Outpatient Procedure (Routine) - Closed Specialty Diagnoses / Procedures Referred By Contac t Referred To Contact [facility] Diagnoses Generalized abdominal pain Gastroesophageal reflux disease without esophagitis Procedures EGD DIAGNOSTIC ESOPHAGOGASTRODUODENOSC OPY TRANSORAL DIAGNOSTIC Cristela Andersen APRN.CNP [address] [place] [address] [address] Referral ID Status Reason Start Date Expiration Date V isits Requested Visits Authorized [id number] Closed Auto-Generate d Referral 04/16/2024 04/16/2025 1 1 * Outpatient Procedure (Routine) - Closed Specialty Diagnoses / Procedures Referred By Contac t Referred To Contact [facility] Diagnoses Chronic diarrhea Generalized abdominal pain Procedures COLONOSCOPY DIAGNOSTIC COLONOSCOPY FLX DX W/COLLJ SPEC WHEN PFRMD Cristela Andersen APRN.CNP [address] [place] [address] [facility] [place] [address] [place] [address] Referral ID Status Reason Start Date Expiration Date V isits Requested Visits Authorized [id number] Closed Auto-Generate d Referral 04/16/2024 04/16/2025 1 1 [facility] for visit Narrative* Diagnostic Procedure Only (Routine) - Closed Specialty Diagnoses / Procedures Referred By Contac t Referred To Contact [facility] Diagnoses SOB (shortness of breath) Coronary artery 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 rich plaque Chest pain on breathing Procedures NM CARDIAC PERF STRESS/PHARM MYOCARDIAL SPECT MULTIPLE STUDIES Samson Ragsdale, DO [address] [place] [address] Molecular [facility] [address] [place] [address] Referral ID Status Reason Start Date Expiration Date V isits Requested Visits Authorized [id number] Closed Auto-Generate d Referral 03/23/2023 04/21/2024 1 1 [facility] for visit Narrative* Diagnostic Procedure Only (Routine) - Closed Specialty Diagnoses / Procedures Referred By Contac t Referred To Contact XR IMAGING Diagnoses Bilateral chronic knee pain Procedures XR KNEE GENERAL 4V AP BOTH/PA BOTH/LAT/MERC BILATERAL RADIOLOGIC EXAM KNEE COMPLETE 4/MORE VIEWS Samson Ragsdale, DO [address] [place] [address] [place] [address] Referral ID Status Reason Start Date Expiration Date V isits Requested Visits Authorized [id number] Closed Auto-Generate d Referral 03/23/2023 04/21/2024 1 1 [facility] for visit Narrative* Outpatient Procedure (Routine) - Closed Specialty Diagnoses / Procedures Referred By Contac t Referred To Contact [facility] Diagnoses Chronic diarrhea Generalized abdominal pain Procedures COLONOSCOPY DIAGNOSTIC COLONOSCOPY FLX DX W/COLLJ SPEC WHEN Cristela Shaikh APRN.DOLPHIN RESEARCHER [address] [place] [address] [facility] [place] [address] [place] [address] Referral ID Status Reason Start Date Expiration Date V isits Requested Visits Authorized [id number] Closed Auto-Generate d Referral 04/16/2024 04/16/2025 1 [facility] Procedure Only (Routine) - Closed Specialty Diagnoses / Procedures Referred By Contac t Referred To Contact XR IMAGING Diagnoses Upper back pain Procedures XR THORACIC GENERAL 3V AP/LAT/SWIMMERS RADEX SPINE THORACIC 3 VIEWS Theodora Hernandez, SERVICE PARTS COORDINATOR.DOLPHIN RESEARCHER [address] [place] [address] Phone: tel: fax: [place] [address] Referral ID Status Reason Start Date Expiration Date V isits Requested Visits Authorized [id number] Closed Auto-Generate d Referral 11/26/2024 12/26/2025 1 1 [facility] Summary Purpose Family History No Family History Records Found Advance Directives No Advanced Directives Records FoundNo Advanced Directives Records FoundNo Advanced Directives Records FoundNo Advanced Directives Records Found Reason for Referral Specialty Diagnoses / Procedures Referred By Contac t Referred To Contact Diagnoses Lymphocytic colitis Cristela Andersen, SERVICE PARTS COORDINATOR.DOLPHIN RESEARCHER [address] [place] [address] Referral ID Status Reason Start Date Expiration Date Visits Re quested Visits Authorized [id number] Closed 1 1 Specialty Diagnoses / Procedures Referred By Contac t Referred To Contact General Surgery Diagnoses Chronic diarrhea Generalized abdominal pain Procedures CONSULT TO GENERAL SURGERY OFFICE/OUTPATIENT [facility] 60 MINUTES Samson Ragsdale, DO [address] [place] [address] Referral ID Status Reason Start Date Expiration Date Visits Requested Visits Authorized [id number] Authorized PCP Requested Referral 03/26/2024 03/26/2025 1 1 Additional Source Comments Source Comments (unrecognize d section and content) In the event this informatio n is protected by the Federal Confidentiality of Alcohol and Drug Abuse Patient Records regulations: The Federal rules restrict any use of the information to criminally investigate or prosecute any alcohol or drug abuse patient.[facility] the event this information is protected by the Federal Confidentiality of Alcohol and Drug Abuse Patient Records regulations: The Federal rules restrict any use of the information to criminally investigate or prosecute any alcohol or drug abuse patient.[facility] HospitalIn the event this information is protected by the Federal Confidentiality of Alcohol and Drug Abuse Patient Records regulations: The Federal rules restrict any use of the information to criminally investigate or prosecute any alcohol or drug abuse patient.[facility] HospitalIn the event this information is protected by the Federal Confidentiality of Alcohol and Drug Abuse Patient Records regulations: The Federal rules restrict any use of the information to criminally investigate or prosecute any alcohol or drug abuse patient.[facility] HospitalIn the event this information is protected by the Federal Confidentiality of Alcohol and Drug Abuse Patient Records regulations: The Federal rules restrict any use of the information to criminally investigate or prosecute any alcohol or drug abuse patient.[facility] HospitalIn the event this information is protected by the Federal Confidentiality of Alcohol and Drug Abuse Patient Records regulations: The Federal rules restrict any use of the information to criminally investigate or prosecute any alcohol or drug abuse patient.[facility] HospitalIn the event this information is protected by the Federal Confidentiality of Alcohol and Drug Abuse Patient Records regulations: The Federal rules restrict any use of the information to criminally investigate or prosecute any alcohol or drug abuse patient.[facility] HospitalIn the event this information is protected by the Federal Confidentiality of Alcohol and Drug Abuse Patient Records regulations: The Federal rules restrict any use of the information to criminally investigate or prosecute any alcohol or drug abuse patient.[facility] HospitalIn the event this information is protected by the Federal Confidentiality of Alcohol and Drug Abuse Patient Records regulations: The Federal rules restrict any use of the information to criminally investigate or prosecute any alcohol or drug abuse patient.[facility] HospitalIn the event this information is protected by the Federal Confidentiality of Alcohol and Drug Abuse Patient Records regulations: The Federal rules restrict any use of the information to criminally investigate or prosecute any alcohol or drug abuse patient.[facility] HospitalIn the event this information is protected by the Federal Confidentiality of Alcohol and Drug Abuse Patient Records regulations: The Federal rules restrict any use of the information to criminally investigate or prosecute any alcohol or drug abuse patient.[facility] HospitalIn the event this information is protected by the Federal Confidentiality of Alcohol and Drug Abuse Patient Records regulations: The Federal rules restrict any use of the information to criminally investigate or prosecute any alcohol or drug abuse patient.[facility] HospitalIn the event this information is protected by the Federal Confidentiality of Alcohol and Drug Abuse Patient Records regulations: The Federal rules restrict any use of the information to criminally investigate or prosecute any alcohol or drug abuse patient.[facility] HospitalIn the event this information is protected by the Federal Confidentiality of Alcohol and Drug Abuse Patient Records regulations: The Federal rules restrict any use of the information to criminally investigate or prosecute any alcohol or drug abuse patient.[facility] HospitalIn the event this information is protected by the Federal Confidentiality of Alcohol and Drug Abuse Patient Records regulations: The Federal rules restrict any use of the information to criminally investigate or prosecute any alcohol or drug abuse patient.[facility] HospitalIn the event this information is protected by the Federal Confidentiality of Alcohol and Drug Abuse Patient Records regulations: The Federal rules restrict any use of the information to criminally investigate or prosecute any alcohol or drug abuse patient.[facility] HospitalIn the event this information is protected by the Federal Confidentiality of Alcohol and Drug Abuse Patient Records regulations: The Federal rules restrict any use of the information to criminally investigate or prosecute any alcohol or drug abuse patient.[facility] HospitalIn the event this information is protected by the Federal Confidentiality of Alcohol and Drug Abuse Patient Records regulations: The Federal rules restrict any use of the information to criminally investigate or prosecute any alcohol or drug abuse patient.[facility] HospitalIn the event this information is protected by the Federal Confidentiality of Alcohol and Drug Abuse Patient Records regulations: The Federal rules restrict any use of the information to criminally investigate or prosecute any alcohol or drug abuse patient.[facility] HospitalIn the event this information is protected by the Federal Confidentiality of Alcohol and Drug Abuse Patient Records regulations: The Federal rules restrict any use of the information to criminally investigate or prosecute any alcohol or drug abuse patient.[facility] HospitalIn the event this information is protected by the Federal Confidentiality of Alcohol and Drug Abuse Patient Records regulations: The Federal rules restrict any use of the information to criminally investigate or prosecute any alcohol or drug abuse patient.[facility] HospitalIn the event this information is protected by the Federal Confidentiality of Alcohol and Drug Abuse Patient Records regulations: The Federal rules restrict any use of the information to criminally investigate or prosecute any alcohol or drug abuse patient.[facility] HospitalIn the event this information is protected by the Federal Confidentiality of Alcohol and Drug Abuse Patient Records regulations: The Federal rules restrict any use of the information to criminally investigate or prosecute any alcohol or drug abuse patient.[facility] HospitalIn the event this information is protected by the Federal Confidentiality of Alcohol and Drug Abuse Patient Records regulations: The Federal rules restrict any use of the information to criminally investigate or prosecute any alcohol or drug abuse patient.[facility] HospitalIn the event this information is protected by the Federal Confidentiality of Alcohol and Drug Abuse Patient Records regulations: The Federal rules restrict any use of the information to criminally investigate or prosecute any alcohol or drug abuse patient.[facility] HospitalIn the event this information is protected by the Federal Confidentiality of Alcohol and Drug Abuse Patient Records regulations: The Federal rules restrict any use of the information to criminally investigate or prosecute any alcohol or drug abuse patient.[facility] HospitalIn the event this information is protected by the Federal Confidentiality of Alcohol and Drug Abuse Patient Records regulations: The Federal rules restrict any use of the information to criminally investigate or prosecute any alcohol or drug abuse patient.[facility] HospitalIn the event this information is protected by the Federal Confidentiality of Alcohol and Drug Abuse Patient Records regulations: The Federal rules restrict any use of the information to criminally investigate or prosecute any alcohol or drug abuse patient.[facility] HospitalIn the event this information is protected by the Federal Confidentiality of Alcohol and Drug Abuse Patient Records regulations: The Federal rules restrict any use of the information to criminally investigate or prosecute any alcohol or drug abuse patient.[facility] HospitalIn the event this information is protected by the Federal Confidentiality of Alcohol and Drug Abuse Patient Records regulations: The Federal rules restrict any use of the information to criminally investigate or prosecute any alcohol or drug abuse patient.[facility] HospitalIn the event this information is protected by the Federal Confidentiality of Alcohol and Drug Abuse Patient Records regulations: The Federal rules restrict any use of the information to criminally investigate or prosecute any alcohol or drug abuse patient.[facility] HospitalIn the event this information is protected by the Federal Confidentiality of Alcohol and Drug Abuse Patient Records regulations: The Federal rules restrict any use of the information to criminally investigate or prosecute any alcohol or drug abuse patient.[facility] HospitalIn the event this information is protected by the Federal Confidentiality of Alcohol and Drug Abuse Patient Records regulations: The Federal rules restrict any use of the information to criminally investigate or prosecute any alcohol or drug abuse patient.[facility] HospitalIn the event this information is protected by the Federal Confidentiality of Alcohol and Drug Abuse Patient Records regulations: The Federal rules restrict any use of the information to criminally investigate or prosecute any alcohol or drug abuse patient.[facility] HospitalIn the event this information is protected by the Federal Confidentiality of Alcohol and Drug Abuse Patient Records regulations: The Federal rules restrict any use of the information to criminally investigate or prosecute any alcohol or drug abuse patient.[facility] HospitalIn the event this information is protected by the Federal Confidentiality of Alcohol and Drug Abuse Patient Records regulations: The Federal rules restrict any use of the information to criminally investigate or prosecute any alcohol or drug abuse patient.[facility] HospitalIn the event this information is protected by the Federal Confidentiality of Alcohol and Drug Abuse Patient Records regulations: The Federal rules restrict any use of the information to criminally investigate or prosecute any alcohol or drug abuse patient.[facility] HospitalIn the event this information is protected by the Federal Confidentiality of Alcohol and Drug Abuse Patient Records regulations: The Federal rules restrict any use of the information to criminally investigate or prosecute any alcohol or drug abuse patient.[facility] HospitalIn the event this information is protected by the Federal Confidentiality of Alcohol and Drug Abuse Patient Records regulations: The Federal rules restrict any use of the information to criminally investigate or prosecute any alcohol or drug abuse patient.[facility] HospitalIn the event this information is protected by the Federal Confidentiality of Alcohol and Drug Abuse Patient Records regulations: The Federal rules restrict any use of the information to criminally investigate or prosecute any alcohol or drug abuse patient.[facility] HospitalIn the event this information is protected by the Federal Confidentiality of Alcohol and Drug Abuse Patient Records regulations: The Federal rules restrict any use of the information to criminally investigate or prosecute any alcohol or drug abuse patient.[facility] HospitalIn the event this information is protected by the Federal Confidentiality of Alcohol and Drug Abuse Patient Records regulations: The Federal rules restrict any use of the information to criminally investigate or prosecute any alcohol or drug abuse patient.[facility] HospitalIn the event this information is protected by the Federal Confidentiality of Alcohol and Drug Abuse Patient Records regulations: The Federal rules restrict any use of the information to criminally investigate or prosecute any alcohol or drug abuse patient.[facility] HospitalIn the event this information is protected by the Federal Confidentiality of Alcohol and Drug Abuse Patient Records regulations: The Federal rules restrict any use of the information to criminally investigate or prosecute any alcohol or drug abuse patient.[facility] HospitalIn the event this information is protected by the Federal Confidentiality of Alcohol and Drug Abuse Patient Records regulations: The Federal rules restrict any use of the information to criminally investigate or prosecute any alcohol or drug abuse patient.[facility] HospitalIn the event this information is protected by the Federal Confidentiality of Alcohol and Drug Abuse Patient Records regulations: The Federal rules restrict any use of the information to criminally investigate or prosecute any alcohol or drug abuse patient.[facility] HospitalIn the event this information is protected by the Federal Confidentiality of Alcohol and Drug Abuse Patient Records regulations: The Federal rules restrict any use of the information to criminally investigate or prosecute any alcohol or drug abuse patient.[facility] HospitalIn the event this information is protected by the Federal Confidentiality of Alcohol and Drug Abuse Patient Records regulations: The Federal rules restrict any use of the information to criminally investigate or prosecute any alcohol or drug abuse patient.[facility] HospitalIn the event this information is protected by the Federal Confidentiality of Alcohol and Drug Abuse Patient Records regulations: The Federal rules restrict any use of the information to criminally investigate or prosecute any alcohol or drug abuse patient.[facility] HospitalIn the event this information is protected by the Federal Confidentiality of Alcohol and Drug Abuse Patient Records regulations: The Federal rules restrict any use of the information to criminally investigate or prosecute any alcohol or drug abuse patient.[facility] HospitalIn the event this information is protected by the Federal Confidentiality of Alcohol and Drug Abuse Patient Records regulations: The Federal rules restrict any use of the information to criminally investigate or prosecute any alcohol or drug abuse patient.[facility] HospitalIn the event this information is protected by the Federal Confidentiality of Alcohol and Drug Abuse Patient Records regulations: The Federal rules restrict any use of the information to criminally investigate or prosecute any alcohol or drug abuse patient.[facility] HospitalIn the event this information is protected by the Federal Confidentiality of Alcohol and Drug Abuse Patient Records regulations: The Federal rules restrict any use of the information to criminally investigate or prosecute any alcohol or drug abuse patient.[facility] HospitalIn the event this information is protected by the Federal Confidentiality of Alcohol and Drug Abuse Patient Records regulations: The Federal rules restrict any use of the information to criminally investigate or prosecute any alcohol or drug abuse patient.[facility] HospitalIn the event this information is protected by the Federal Confidentiality of Alcohol and Drug Abuse Patient Records regulations: The Federal rules restrict any use of the information to criminally investigate or prosecute any alcohol or drug abuse patient.[facility] HospitalIn the event this information is protected by the Federal Confidentiality of Alcohol and Drug Abuse Patient Records regulations: The Federal rules restrict any use of the information to criminally investigate or prosecute any alcohol or drug abuse patient.[facility] HospitalIn the event this information is protected by the Federal Confidentiality of Alcohol and Drug Abuse Patient Records regulations: The Federal rules restrict any use of the information to criminally investigate or prosecute any alcohol or drug abuse patient.[facility] HospitalIn the event this information is protected by the Federal Confidentiality of Alcohol and Drug Abuse Patient Records regulations: The Federal rules restrict any use of the information to criminally investigate or prosecute any alcohol or drug abuse patient.[facility] HospitalIn the event this information is protected by the Federal Confidentiality of Alcohol and Drug Abuse Patient Records regulations: The Federal rules restrict any use of the information to criminally investigate or prosecute any alcohol or drug abuse patient.[facility] HospitalIn the event this information is protected by the Federal Confidentiality of Alcohol and Drug Abuse Patient Records regulations: The Federal rules restrict any use of the information to criminally investigate or prosecute any alcohol or drug abuse patient.[facility] Reason for Visit (unrecogniz ed section and content) Reason Comments Blood Pressure Reason Onset Date Comments Refill Request 01/13/2022 Reason Onset Date Comments Refill Request 04/22/2022 Reason Onset Date Comments Refill Request 06/10/2022 Reason Comments Cough Cough, chest congest ion and SOB x 1 week Reason Comments Orders Reason Comments F/U 3 Month Reason Onset Date Comments Refill Request 09/24/2022 Reason Comments Results Reason Onset Date Comments Refill Request 10/27/2022 Reason Comments Chest Congestion cough x couple weeks Reason Onset Date Comments Refill Request 02/02/2023 Reason Comments Recheck 6 months Reason Comments Physician requesting call back Reason Comments [facility] Reason Comments Radiology NM Specialty Diagnoses / Procedures Referred By Contac t Referred To Contact MOLECULAR & FUNCTIONAL IMAGING Diagnoses SOB (shortness of breath) Coronary artery 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 rich plaque Chest pain on breathing Procedures NM CARDIAC PERF STRESS/PHARM MYOCARDIAL SPECT MULTIPLE STUDIES Samson Ragsdale, DO [address] [place] [address] Molecular & Functional Imaging [address] [id number] Referral ID Status Reason Start Date Expiration Date V isits Requested Visits Authorized [id number] Closed Auto-Generate d Referral 03/23/2023 04/21/2024 1 1 Reason Comments New Patient Reason Onset Date Comments Refill Request 07/05/2023 Reason Comments [facility] Reason Comments 6 Month Exam Reason Onset Date Comments Refill Request 10/24/2023 Reason Onset Date Comments Refill Request 01/27/2024 Reason Comments 6 Month Exam diarrhea continuous x 6 months Reason Onset Date Comments Refill Request 04/03/2024 Reason Onset Date Comments Refill Request 04/06/2024 Reason Comments Patient Question Reason Comments Consult Colonoscopy Specialty Diagnoses / Procedures Referred By Melita oliver Referred To Contact General Surgery Diagnoses Chronic diarrhea Generalized abdominal pain Procedures CONSULT TO GENERAL SURGERY OFFICE/OUTPATIENT [facility] MDM 60 MINUTES Samson Ragsdale, DO [address] [place] [address] Referral ID Status Reason Start Date Expiration Date V isits Requested Visits Authorized [id number] Closed PCP Requested Referral 03/26/2024 03/26/2025 1 1 Reason Onset Date Comments Refill Request 04/27/2024 Reason Comments Consult Reason Comments Established Patient Reason Comments Appointment Reason Comments Follow Up Review EGD and colon oscopy results. Reason Comments Medication Problem Reason Comments Erroneous encounter-disregard Reason Comments Lab Orders Reason Comments Yearly Exam Reason Onset Date Comments Refill Request 10/25/2024 Reason Comments Pain in right shoulder fo r about 6 weeks denies any injury Reason Onset Date Comments Population Health Navigation Outreach 12/10/[address] [facility] [facility] Reason Comments Cough Cough, chest congest ion and SOB x 10 days Care Teams (unrecognized sec tion and content) Manager Aerospace Relationship Specialty Start Date End Date Samson Ragsdale DO [address] [place], [place] [id number] PCP - General Family Practice 10/09/14 Manager Aerospace Relationship Specialty Start Date End Date Samson Ragsdale DO [address] [place], [place] [id number] PCP - General Family Practice 10/09/14 Manager Aerospace Relationship Specialty Start Date End Date Samson Ragsdale, DO [address] [place] [address] PCP - General Family Practice 10/09/14 Manager Aerospace Relationship Specialty Start Date End Date Samson Ragsdale, DO [address] [place] [address] PCP - General Family Medicine 10/09/14 Manager Aerospace Relationship Specialty Start Date End Date Samson Ragsdale, DO [address] [place] [address] PCP - General Family Medicine 10/09/14 Manager Aerospace Relationship Specialty Start Date End Date Samson Ragsdale, DO [address] [place] [address] PCP - General Family Medicine 10/09/14 Manager Aerospace Relationship Specialty Start Date End Date Samson Ragsdale, DO [address] [place] [address] PCP - General Family Medicine 10/09/14 Manager Aerospace Relationship Specialty Start Date End Date Samson Ragsdale, DO [address] [place] [address] PCP - General Family Medicine 10/09/14 Manager Aerospace Relationship Specialty Start Date End Date Samson Ragsdale, DO [address] [place] [address] PCP - General Family Medicine 10/09/14 Manager Aerospace Relationship Specialty Start Date End Date Samson Ragsdale, DO [address] [place] [address] PCP - General Family Medicine 10/09/14 Manager Aerospace Relationship Specialty Start Date End Date Samson Ragsdale, DO [address] [place] [address] PCP - General Family Medicine 10/09/14 Manager Aerospace Relationship Specialty Start Date End Date Samson Ragsdale DO [address] [place] [address] PCP - General Family Medicine 10/09/14 Manager Aerospace Relationship Specialty Start Date End Date Samson Ragsdale DO [address] [place] [address] PCP - General Family Medicine 10/09/14 Manager Aerospace Relationship Specialty Start Date End Date Samson Ragsdale DO [address] [place] [address] PCP - General Family Medicine 10/09/14 Manager Aerospace Relationship Specialty Start Date End Date Samson Ragsdale DO [address] [place] [address] PCP - General Family Medicine 10/09/14 Manager Aerospace Relationship Specialty Start Date End Date Samson Ragsdale DO [address] [place] [address] PCP - General Family Medicine 10/09/14 Manager Aerospace Relationship Specialty Start Date End Date Samson Ragsdale DO [address] [place] [address] PCP - General Family Medicine 10/09/14 Manager Aerospace Relationship Specialty Start Date End Date Samson Ragsdale DO [address] [place] [address] PCP - General Family Medicine 10/09/14 Manager Aerospace Relationship Specialty Start Date End Date Samson Ragsdale DO [address] [place] [address] PCP - General Family Medicine 10/09/14 Manager Aerospace Relationship Specialty Start Date End Date Samson Ragsdale DO [address] [place] [address] PCP - General Family Medicine 10/09/14 Manager Aerospace Relationship Specialty Start Date End Date Samson Ragsdale DO [address] [place] [address] PCP - General Family Medicine 10/09/14 Manager Aerospace Relationship Specialty Start Date End Date Samson Ragsdale DO [address] [facility] [address] PCP - General Family Medicine 10/09/14 Manager Aerospace Relationship Specialty Start Date End Date Samson Ragsdale DO [address] [facility] [place] [address] PCP - General Family Medicine 10/09/14 Manager [employer] Relationship Specialty Start Date End Date Samson Ragsdale DO [address] [place] [address] PCP - General Family Medicine 10/09/14 Manager [employer] Relationship Specialty Start Date End Date Samson Ragsdale DO [address] [facility] [place] [address] PCP - General Family Medicine 10/09/14 Manager Aerospace Relationship Specialty Start Date End Date Samson Ragsdale DO [address] [facility] [place] [address] PCP - General Family Medicine 10/09/14 Manager Aerospace Relationship Specialty Start Date End Date Samson Ragsdale DO [address] [facility] [place] [address] PCP - General Family Medicine 10/09/14 Manager Aerospace Relationship Specialty Start Date End Date Samson Ragsdale DO [address] [facility] [place] [address] PCP - General Family Medicine 10/09/14 Manager [employer] Relationship Specialty Start Date End Date Samson Ragsdale DO [address] [facility] [place] [address] PCP - General Family Medicine 10/09/14 Manager [employer] Relationship Specialty Start Date End Date Samson Ragsdale DO [address] [place] [address] PCP - General Family Medicine 10/09/14 Manager [employer] Relationship Specialty Start Date End Date Samson Ragsdale DO [address] [place] [address] PCP - General Family Medicine 10/09/14 Manager [employer] Relationship Specialty Start Date End Date Samson Ragsdale DO [address] [facility] [place] [address] PCP - General Family Medicine 10/09/14 Manager Aerospace Relationship Specialty Start Date End Date Samson Ragsdale DO [address] [facility] [place] [address] PCP - General Family Medicine 10/09/14 Manager Aerospace Relationship Specialty Start Date End Date Samson Ragsdale DO [address] [facility] [place] [address] PCP - General Family Medicine 10/09/14 Manager [employer] Relationship Specialty Start Date End Date Samson Ragsdale DO [address] [place] [address] PCP - General Family Medicine 10/09/14 Manager [employer] Relationship Specialty Start Date End Date Samson Ragsdale DO [address] [place] [address] PCP - General Family Medicine 10/09/14 Manager Aerospace Relationship Specialty Start Date End Date Samson Ragsdale DO [address] [facility] [place] [address] PCP - General Family Medicine 10/09/14 Manager [employer] Relationship Specialty Start Date End Date Samson Ragsdale DO [address] [facility] [place] [address] PCP - General Family Medicine 10/09/14 Manager Aerospace Relationship Specialty Start Date End Date Samson Ragsdale DO [address] [facility] [place] [address] PCP - General Family Medicine 10/09/14 Manager [employer]ospace Relationship Specialty Start Date End Date Samson Ragsdale DO [address] [facility] [place] [address] PCP - General Family Medicine 10/09/14 Manager Aerospace Relationship Specialty Start Date End Date Samson Ragsdale DO [address] [facility] [place] [address] PCP - General Family Medicine 10/09/14 Manager [employer] Relationship Specialty Start Date End Date Samson Ragsdale DO [address] [facility] [place] [address] PCP - General Family Medicine 10/09/14 Manager [employer] Relationship Specialty Start Date End Date Samson Rgasdale DO [address] [place] [address] PCP - General Family Medicine 10/09/14 Desirae Irving, SERVICE PARTS COORDINATOR.DOLPHIN RESEARCHER [address] [place] [address] Outside Sales Representative [facility] 07/08/24 DanyLore, SERVICE PARTS COORDINATOR.DOLPHIN RESEARCHER [address] [place] [address] Outside Sales Representative [facility] 07/08/24 Manager [employer] Relationship Specialty Start Date End Date Samson Ragsdale DO [address] [place] [address] PCP - General Family Medicine 10/09/14 Desirae Irving, SERVICE PARTS COORDINATOR.DOLPHIN RESEARCHER [address] [place] [address] Outside Sales Representative [facility] 07/08/24 DanyLore, SERVICE PARTS COORDINATOR.DOLPHIN RESEARCHER [address] [place] [address] Outside Sales Representative [facility] 07/08/24 Manager Aerospace Relationship Specialty Start Date End Date Samson Ragsdale DO [address] [place] [address] PCP - General Family Medicine 10/09/14 Desirae Irving, SERVICE PARTS COORDINATOR.DOLPHIN RESEARCHER [address] [place] [address] Outside Sales Representative [facility] 07/08/24 Lore Saenz, SERVICE PARTS COORDINATOR.DOLPHIN RESEARCHER [address] [place] [address] Outside Sales Representative [facility] 07/08/24 Manager Aerospace Relationship Specialty Start Date End Date Samson Ragsdale DO [address] [place] [address] PCP - General Family Medicine 10/09/14 Desirae Irving, SERVICE PARTS COORDINATOR.DOLPHIN RESEARCHER [address] [place] [address] Outside Sales Representative [facility] 07/08/24 Lore Saenz, SERVICE PARTS COORDINATOR.DOLPHIN RESEARCHER [address] [place] [address] Outside Sales Representative [facility] 07/08/24 Manager [employer]ospace Relationship Specialty Start Date End Date Samson Ragsdale DO [address] [place] [address] PCP - General Family Medicine 10/09/14 Lore Saenz, SERVICE PARTS COORDINATOR.DOLPHIN RESEARCHER [address] [place] [address] Outside Sales Representative [facility] 07/08/24 Manager [employer]ospace Relationship Specialty Start Date End Date Samson Ragsdale DO [address] [place] [address] PCP - General Family Medicine 10/09/14 Desirae Irving, SERVICE PARTS COORDINATOR.DOLPHIN RESEARCHER [address] [place] [address] Outside Sales Representative [facility] 07/08/24 10/19/24 Lore Saenz, SERVICE PARTS COORDINATOR.DOLPHIN RESEARCHER [address] [place] [address] Outside Sales Representative [facility] 07/08/24 Manager [employer] Relationship Specialty Start Date End Date Samson Ragsdale DO [address] [place] [address] PCP - General Family Medicine 10/09/14 [facility], SERVICE PARTS COORDINATOR.DOLPHIN RESEARCHER [address] [place] [address] Outside Sales Representative [facility] 07/08/24 Manager Aerospace Relationship Specialty Start Date End Date Samson Ragsdale DO [address] [place] [address] PCP - General Family Medicine 10/09/14 DanyLore, SERVICE PARTS COORDINATOR.DOLPHIN RESEARCHER [address] [place] [address] Outside Sales Representative [facility] 07/08/24 Manager [employer] Relationship Specialty Start Date End Date Samson Ragsdale DO [address] [place] [address] PCP - General Family Medicine 10/09/14 DanyLore, SERVICE PARTS COORDINATOR.DOLPHIN RESEARCHER [address] [place] [address] [facility] Manager Aerospace Relationship Specialty Start Date End Date Samson Ragsdale DO [address] [place] [address] PCP - General Family Medicine 10/09/14 DanyLore, SERVICE PARTS COORDINATOR.DOLPHIN RESEARCHER [address] [place] [address] Outside Sales Representative Family Medicine 07/08/24 (unrecognized sect ion and content) No Status Records FoundNo Status Records FoundNo Status Records FoundNo Status Records Found INFORMATION SOURCE (unrecogn ized section and content) DATE CREATED AUTHOR 06/01/2023 [facility] DATE CREATED AUTHOR AUTHOR'S ORGANIZ ATION 05/25/2024 [facility] DATE CREATED AUTHOR AUTHOR'S ORGANIZ ATION 01/12/2025 [facility] DATE CREATED AUTHOR AUTHOR'S ORGANIZ ATION 01/12/2025 [facility] FOR RECORDS PERTAINING TO PATIENTS WHO ARE OR HAVE BEEN ENROLLED IN A CHEMICAL DEPENDENCY/SUBSTANCEABUSE PROGRAM, SOME INFORMATION MAY BE OMITTED. This clinical summary was aggregated from multiple sources. Caution should be exercised in using it in the provision of clinical care. This summary normalizes information from multiple sources, and as a consequence, information in this document may materially change the coding, format and clinical context of patient data. In addition, data may be omitted in some cases. CLINICAL DECISIONS SHOULD BE BASED ON THE PRIMARY CLINICAL RECORDS. [employer] [facility]. provides no warranty or guarantee of the accuracy or completeness of information in this document.
[2025-01-13 23:12] VITALS: BP 111/56; PULSE 60; RESP 21; O2SAT 95
[2025-01-13 23:15] VITALS: BP 111/56; PULSE 60; RESP 17; TEMP 36.6; O2SAT 95; O2SAT 97
--- NOTE | 2025-01-13 23:15 | EKG12_ITS ---
Test Reason : DYSRHYTHMIA Blood Pressure : */* mmHG Vent. Rate : 61 BPM Atrial Rate : 61 BPM P-R Int : 148 ms QRS Dur : 88 ms QT Int : 412 ms P-R-T Axes : 65 27 79 degrees QTcB Int : 414 ms Normal sinus rhythm Possible Inferior infarct , age undetermined Abnormal ECG Confirmed by VINAYAK ASTORGA, MONET ([id number]), editor producer JOSE MERAZ ([id number]) on 01/15/2025 7:38:04 AM Referred By: RUTH ANN Confirmed By: MONET LICEA MD
--- NOTE | 2025-01-13 23:24 | ED.VIS.DYS ---
HPI History of Present Illness Chief Complaint: Shortness of Breath Informant: patient Onset/Context/Timing Onset: Weeks (The last week.) Context: gradual Timing: Intermittent Quality: Positive for Orthopnea Current Severity: Mild Maximum Severity: Mild Worsened by: Lying flat Relieved by: other (Upright it resolves.) Associated Symptoms Negative for cough Chest Pain: Positive for None Narrative Narrative: 84-year-old male history of ME, hypertension, diabetes, ischemic cardiomyopathy and prior prostate cancer prostatectomy. No metastasis. States the last week he has been short of breath for 7 to 10 days. Primarily when he is supine. Better upright. Better walking. No prior history. Denies chest pain. Denies fever or cough. States he does have leg swelling is slightly worse. PE Risk Factors: Negative for OCP + Smoking + > 35, Prior DVT or PE, Recent immobilization, Recent surgery or Recent travel Prior similar symptoms: Yes Recent Illness/Hospitalization: No [facility] Medical History (Updated 01/14/25 @ 02:[address] Adam Mon MD) GI bleed due to NSAIDs Carotid artery stenosis Abdominal aortic aneurysm without rupture Ischemic cardiomyopathy Prostate cancer PVD (peripheral vascular disease) Atherosclerosis of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[place] heart without angina pectoris Complete heart block ST elevation ME (STEMI) Chronic kidney disease, stage 3 Hyperlipidemia Hypertension Home Medications ?Medication ?Instructions ?Recorded ?Last Taken ?Type calcium carbonate 1 tab PO DAILY 03/29/17 Unknown History isosorbide mononitrate 30 mg 30 mg PO DAILY 03/29/17 03/30/17 History tablet,extended release 24 hr cetirizine 10 mg tablet (Zyrtec) 5 mg PO DAILY 05/08/18 Unknown History coenzyme Q10 100 mg capsule 200 mg PO DAILY 05/08/18 Unknown History (CoQ-10) insulin glargine 100 unit/mL 10 unit subcut QHS 05/08/18 Unknown History subcutaneous solution (Lantus U-100 Insulin) B-complex with vitamin C 1 cap PO DAILY 11/23/18 Unknown History magnesium oxide 400 mg (241.3 mg 500 mg PO DAILY 11/23/18 Unknown History magnesium) tablet turmeric root extract 500 mg 1,400 mg PO DAILY 11/23/18 Unknown History capsule allopurinol 100 mg tablet 100 mg PO DAILY 06/21/19 Unknown History cholecalciferol (vitamin D3) 125 5,000 unit PO DAILY 06/21/19 Unknown History mcg (5,000 unit) capsule losartan 50 mg tablet 25 mg PO DAILY 06/21/19 Unknown History famotidine 20 mg tablet 20 mg PO QHS PRN 02/07/20 Unknown History furosemide 40 mg tablet 40 mg PO .COMPLEX PRN edema 02/07/20 Unknown History clopidogrel 75 mg tablet 75 mg PO DAILY #90 tabs 08/19/20 Unknown Rx carvedilol 12.5 mg tablet 25 mg PO DAILY 04/21/21 Unknown History oxycodone-acetaminophen 5 mg-325 1 tab PO Q6H PRN PRN Pain 3 days 01/12/24 Unknown Rx mg tablet #12 TABLETS amlodipine 5 mg tablet 10 mg PO DAILY 01/13/25 Unknown History cyanocobalamin (vitamin B-12) 5,000 mcg PO DAILY 01/13/25 Unknown History 5,000 mcg capsule ferrous sulfate, dried 159 mg (45 159 mg PO DAILY 01/13/25 Unknown History mg iron) tablet,extended release (iron ER) zinc 50 mg tablet 50 mg PO DAILY 01/13/25 Unknown History Allergy/AdvReac Type Severity Reaction Status Date / Time atorvastatin (From Lipitor) Allergy Unknown Verified 01/13/25 22:13 glucosamine Allergy Unknown Verified 01/13/25 22:13 Family History Father Arthritis Mother Hypertension Grandmother Diabetes Surgical History History of prostatectomy History of right-sided carotid endarterectomy History of coronary artery stent placement H/O coronary artery bypass surgery (~1994) Social History Smoking Status: Former smoker how long ago did patient quit smokin+years ago alcohol intake: current alcohol intake frequency: holidays/special occasions only substance use type: does not use caffeine: Yes Type: coffee and tea ROS ROS ED ROS Narrative Positional shortness of breath primarily supine. No chest pain. No fever. No new cough. Constitutional Constitutional ED: Denies chills or fever(s) Eyes Eyes: Denies blurry vision ENT ENT ED: Denies ear pain Cardiovascular Cardiovascular: Reports orthopnea; Denies chest pain or palpitations Respiratory/Chest Respiratory/Chest: Reports dyspnea and orthopnea Gastrointestinal Gastrointestinal: Denies abdominal pain, diarrhea, nausea or vomiting Genitourinary Genitourinary ED: Denies dysuria or hematuria Musculoskeletal Musculoskeletal: Denies arthralgias Integumentary Denies abscess Neurologic Neurologic: Denies headache(s) Psychiatric Psychiatric: Denies anxiety Endocrine Endocrinology: Denies cold intolerance Hematologic/Lymphatic Hematologic/Lymphatic: Denies easy bleeding Allergic/Immunologic Allergic/Immunologic ED: Denies mouth swelling, tongue swelling or urticaria EXAM Physical Exam Narrative Exam Narrative: 84-year-old male sitting upright in bed. Vital signs are stable pulse ox 96% on room air no hypoxia. H EENT exam pupils round react light. Extra motions are intact. Moist extremities. Neck nontender no JVD. Lungs clear to auscultation bilaterally. No rales or rhonchi. Equal symmetrical. Heart rate about 65 no murmur. Chest wall ribs nontender. Abdomen soft nontender. Moving all 4 extremities. Normal strength. Normal range of motion. He does have trace edema in both lower extremities. Calves are nontender. No cords. Neurologically he is awake alert. Answering questions and following commands. Back nontender. No focal motor deficits. Const Vital Signs: 01/13/25 22:13 01/13/25 22:15 01/13/25 23:12 Temperature 97.8 F 97.8 F Temperature Source Oral Oral Pulse Rate 64 59 L 60 Respiratory Rate 40 H 18 21 H Respiratory Effort Respiratory Depth Respiratory Pattern Blood Pressure 114/43 L 110/53 L 111/56 L Blood Pressure Mean 66 72 74 Pulse Ox 96 95 95 Oxygen Delivery Method Room Air Room Air Room Air 01/13/25 23:15 01/13/25 23:15 01/13/25 23:32 Temperature 97.8 F Temperature Source Temporal Pulse Rate 60 Respiratory Rate 17 Respiratory Effort Short of Breath Labored Respiratory Depth Normal Respiratory Pattern Normal Blood Pressure 111/56 L Blood Pressure Mean 74 Pulse Ox 97 95 Oxygen Delivery Method Room Air Room Air Room Air 01/14/25 00:00 01/14/25 00:00 01/14/25 01:00 Temperature 98 F Temperature Source Oral Pulse Rate 58 L 59 L 61 Respiratory Rate 20 H 15 22 H Respiratory Effort Respiratory Depth Respiratory Pattern Blood Pressure 116/53 L 116/53 L 116/57 L Blood Pressure Mean 74 74 76 Pulse Ox 96 95 95 Oxygen Delivery Method Room Air Room Air Room Air 01/14/25 01:54 Temperature Temperature Source Pulse Rate 56 L Respiratory Rate 20 H Respiratory Effort Respiratory Depth Respiratory Pattern Blood Pressure 109/64 Blood Pressure Mean 79 Pulse Ox 93 Oxygen Delivery Method Room Air Positive well nourished and well developed; Negative for obese, cachectic, contractures or unkempt General Appearance ED: well developed and NAD; Negative for unkempt, cachectic, contractures or pallor Nutritional Appearance: Negative for cachectic or obese HEENT Reports moist mucous membranes atraumatic; Negative for trauma or tenderness Eyes PERRL and EOMs intact bilaterally General Eye ED: Negative for pale conjunctiva or scleral icterus Neck no lymphadenopathy, supple, no meningeal signs and no JVD General: Negative for tenderness Lymph Lymphatic: Negative for other Chest Wall Chest: Negative for other Resp normal respiratory effort and clear to auscultation bilaterally Cardio regular rate, regular rhythm, S1 normal heart sound, S2 normal heart sound and no murmurs GI non-tender, non-distended and no masses Auscultation: normoactive bowel sounds Palpation: soft; Negative for tender, guarding or rebound tenderness present Back/Spine no CVA tenderness and normal to inspection Extremity Negative for normal to inspection Extremity Narrative: Edema both lower extremities. Nontender. No cords. Calves are nontender. General Extremety ED: Yes edema; Negative for tenderness General Extremity: edema Neuro oriented x3 and CN's II-XII intact bilaterally Sensorium / Orientation: alert, oriented to person, oriented to place and oriented to time; Negative for orientation impaired, confused, lethargic or stuporous Speech: speech normal Motor Exam: strength 5/5 throughout Psych mental status grossly normal Appearance: Negative for unkempt Attitude: No agitated Mood & Affect: Negative for depressed, anxious or tearful Thought Process: normal thought process Skin no wounds and skin turgor normal General Skin Exam: Negative for jaundice or pallor Lesions: no lesions Rashes: no rashes Trauma: Negative for abrasion or laceration MDM MDM MDM Narrative Medical decision making narrative: 84-year-old male with history of ischemic cardiomyopathy and diabetes with positional shortness of breath primarily supine. Exam benign other than trace edema both lower extremities. Undergo cardiac workup with a chest x-ray concern for possible pleural effusions or CHF. I do not think it is an acute cardiac event. He has no history or risk factors for DVT or PE. Repeat exam patient is doing well at 2:05 AM. Went over test results of both he and his family. There is no specific cause for his positional dyspnea. It may be associated to his underlying cardiomyopathy. He has an appointment to see his tax accounting manager on Tuesday. They are comfortable with him being discharged to home. Currently his vital signs are stable and his pulse ox is 94% on room air. History & Record Review Discussion w/independent historian: Patient Additional record(s) reviewed:: Prior inpatient record, Prior outpatient record, Prior ED visit and Prior labs Lab Data Attestation: I reviewed the patient's lab results. Lab results narrative: CBC shows a white count of 10. H&H 11.8 and 36. Platelets 326. Electrolytes show sodium 139. Gap 14. BUN and creatinine of 42 and 2.35. Glucose 167. Initial troponin 53. 2-hour troponin 52. BNP 235. Chest x-ray chronic changes. No acute process. Labs are consistent with his baseline labs. Labs: Laboratory Results - last 24 hr 01/13/25 01/14/25 23:15 01:20 WBC 10.7 RBC 4.26 L Hgb 11.8 L Hct 36.9 L MCV 86.6 MCH 27.7 MCHC 32.0 RDW Std Deviation 44.2 H RDW Coeff of Aileen 13.9 Plt Count 326 MPV 10.4 Immature Gran % (Auto) 0.300 Neut % (Auto) 70.0 Lymph % (Auto) 18.6 L Woodward % (Auto) 8.2 Eos % (Auto) 2.5 Baso % (Auto) 0.4 Absolute Neuts (auto) 7.5 Absolute Lymphs (auto) 1.99 Nucleated RBC % 0 Sodium 139 Potassium 4.4 Chloride 98 Carbon Dioxide 26.5 Anion Gap 14 BUN 42 H Creatinine 2.35 H Estim Creat Clear Calc 23.04 L Est GFR (MDRD) Non-Af 27 L BUN/Creatinine Ratio 17.7 Glucose 167 H Calcium 9.3 Troponin T High Sens 53 H Troponin T Hi Sens 2 Hr 52 H NT pro BNP II 235 Radiography Chest X-Ray - ED: 2 View, Read by ED Physician, Read by Radiologist, Heart, Lungs, Mediastinum, Bony Structures, No Acute Disease and Chronic Changes Diagnostic Testing: Clinical Impression(s) from Imaging Studies Chest X-Ray 01/13/25 23:40 IMPRESSION: No focal consolidations. No pleural effusion or pneumothorax. Left base subsegmental atelectasis. Reading Location: [facility] Chest x-ray, 2 views, interpreted by myself and the radiologist shows normal cardiac silhouette. Normal lung alvarenga. Chronic changes. Prior sternotomy. No effusions. No pneumonia. No congestive heart failure. Rhythm Strip Rhythm Strip: Sinus Rhythm Rate: 61 Ectopy: None EKG Initial EKG: Attestation: I personally reviewed and interpreted this EKG as follows: Interpretation: Sinus Rhythm and No Acute Injury Pattern Comments: Normal sinus rhythm rate of 61 no acute signs of ME or ischemia. Discharge Plan Triage Chief Complaint: Shortness of Breath ED Provider: Adam oMn Dx/Rx/DC Orders Clinical Impression: Acute dyspnea, History of cardiomyopathy, History of acute myocardial infarction, Chronic kidney disease, Chronic anemia, History of diabetes mellitus Instructions: ED Dyspnea Prescriptions: No Action Lantus U-100 Insulin 100 unit/mL solution 10 unit SC QHS cetirizine [Zyrtec] 10 mg tablet 5 mg PO DAILY coenzyme Q10 [CoQ-10] 100 mg capsule 200 mg PO DAILY magnesium oxide 400 mg (241.3 mg magnesium) tablet 500 mg PO DAILY turmeric root extract 500 mg capsule 1,400 mg PO DAILY B-complex with vitamin C capsule 1 cap PO DAILY allopurinol 100 mg tablet 100 mg PO DAILY losartan 50 mg tablet 25 mg PO DAILY cholecalciferol (vitamin D3) 5,000 unit capsule 5,000 unit PO DAILY furosemide 40 mg tablet 40 mg PO .COMPLEX PRN (Reason: edema) Rx Instructions: 40 mg PO once daily, may take an extra one prn for edema; PRN; famotidine 20 mg tablet 20 mg PO QHS PRN Patient Comments: Take 1 tablet by mouth at bedtime as needed. carvedilol 12.5 mg tablet 25 mg PO DAILY Rx Instructions: must administer with a meal/food isosorbide mononitrate 30 MG tablet extended release 24 hr 30 mg PO DAILY Patient Comments: Heart calcium carbonate 500 MG tablet,chewable 1 tab PO DAILY Patient Comments: Supplement oxycodone-acetaminophen 5-325 mg tablet 1 tab PO Q6H PRN PRN (Reason: Pain) 3 Days Qty: 12 0RF iron 159 mg (45 mg iron) tablet extended release 159 mg PO DAILY zinc 50 mg tablet 50 mg PO DAILY cyanocobalamin (vitamin B-12) 5,000 mcg capsule 5,000 mcg PO DAILY amlodipine 5 mg tablet 10 mg PO DAILY clopidogrel 75 mg tablet 75 mg PO DAILY Qty: 90 3RF Primary Care Provider: Samson Ragsdale Referrals: Srini Montano MD [Med Staff - Active Staff] - Keep Brii appointment Samson Ragsdale DO [Primary Care Provider] - Activity Restrictions/Additional Instructions: Your tests are consistent with your prior labs. No acute cause for your shortness of breath. Follow-up with your tax accounting manager. Print Language: Solomon Islander Disposition Disposition: Home, Self Care
[2025-01-13 23:27] LABS: Absolute Lymphocyte Count 1.99 X10^3/uL (0.83-4.51); Absolute Neutrophil Count 7.5 X10^3/uL (2.0-7.7); Basophil# 0.04 X10^3/uL; Basophil% 0.4 % (0-1); Eosinophil# 0.27 X10^3/uL; Eosinophils% 2.5 % (0-5); Hematocrit 36.9 % (40-54); Hemoglobin 11.8 g/dL (13.0-16.5); Lymphocyte # 1.99 X10^3/ul (0.83-4.51); Lymphocyte % 18.6 % (19-41); Mean Corpuscular Hgb 27.7 pg (27.0-32.0); Mean Corpuscular Volume 86.6 fL (80-94); Mean Platelet Vol. 10.4 fl (6.2-12.0); Monocyte# 0.88 X10^3/uL; Monocyte% 8.2 % (0-10); NRBC Flagged by Analyzer 0 % (0-5); Neutrophil # 7.49 X10^3/uL (2.7-7.7); Platelet Count 326 K/mm3 (150-450); RBC Distribution Width CV 13.9 % (11.6-14.6); RBC Distribution Width SD 44.2 fl (35.1-43.9); Red Blood Count 4.26 M/mm3 (4.6-6.2); White Blood Count 10.7 K/mm3 (4.4-11.0)
[2025-01-13 23:32] VITALS: O2SAT 95
--- NOTE | 2025-01-13 23:40 | RAD_ITS ---
PROCEDURE: CHEST PA AND LATERAL 01/13/2025 REASON FOR EXAM: CHEST PAIN TECHNIQUE: CHEST PA AND LATERAL COMPARISON: none FINDINGS: Median sternotomy wires. Aortic arch calcification. Left base subsegmental atelectasis. No focal consolidations. No pleural effusion or pneumothorax. RAD/Chest PA and Lateral IMPRESSION: No focal consolidations. No pleural effusion or pneumothorax. Left base subsegmental atelectasis. Reading Location: [id number]
[2025-01-14] VITALS: BP 116/53; PULSE 58; PULSE 59; RESP 15; RESP 20; TEMP 36.6; O2SAT 95; O2SAT 96
[2025-01-14 00:14] LABS: Anion Gap 14 (5-15); BUN 42 mg/dL (4-19); BUN/Creat Ratio 17.7 RATIO (10-20); Calcium,Total 9.3 mg/dL (7.6-11.0); Carbon Dioxide 26.5 mmol/L (21.0-32.0); Chloride 98 mmol/L (98-108); Creatinine, Serum 2.35 mg/dL (0.70-1.20); EST Glomerular Filtration Rate 27 (>60); Estimated Creatinine Clearance 23.04 ml/min (50-250); Glucose 167 mg/dL (70-99); Potassium 4.4 mmol/L (3.3-5.1); Pro- Brain NATRIURETIC PEPTIDE 235 pg/mL (<=1800); Sodium Level 139 mmol/L (133-145); Troponin T High Sensitivity 53 ng/L (<=22)
[2025-01-14 01:00] VITALS: BP 116/57; PULSE 61; RESP 22; O2SAT 95
[2025-01-14 01:52] LABS: Troponin T High Sens 2 HR 52 ng/L (<=22)
[2025-01-14 01:54] VITALS: BP 109/64; PULSE 56; RESP 20; O2SAT 93
[2025-01-14 02:19] VITALS: BP 111/53; PULSE 60; RESP 20; TEMP 36.7; O2SAT 93
== END 2025-01-14 02:20 | disposition home or self-care (01) ==
PROVIDERS: Emergency Provider Emergency Medicine; PCP Student in an Organized Health Care Education/Training Program; Visit Provider Emergency Medicine
DX: R06.02 Shortness of breath (principal); E11.22 Type 2 diabetes mellitus with diabetic chronic kidney disease; Z79.4 Long term (current) use of insulin; E11.51 Type 2 diabetes mellitus with diabetic peripheral angiopathy without gangrene; N18.30 Chronic kidney disease, stage 3 unspecified; I25.5 Ischemic cardiomyopathy; I12.9 Hypertensive chronic kidney disease with stage 1 through stage 4 chronic kidney disease, or unspecified chronic kidney disease; I25.10 Atherosclerotic heart disease of native coronary artery without angina pectoris; I25.2 Old myocardial infarction; D63.1 Anemia in chronic kidney disease; Z95.5 Presence of coronary angioplasty implant and graft; Z79.02 Long term (current) use of antithrombotics/antiplatelets; Z79.899 Other long term (current) drug therapy; Z87.891 Personal history of nicotine dependence
CPT/HCPCS: 71046; 80048; 83880; 84484; 85025; 93005; 99284; A4216

== ENCOUNTER → 2025-01-15 | Outpatient (CLI) | payer MEDICARE, OTHER, SELFPAY ==
[2016-12-21 14:00] VITALS: BMI 28.0
[2025-01-15 17:28] LABS: ALB/GLOB Ratio 1.4 RATIO (0.9-2.4); AST(SGOT) 15 U/L (<=37); Alanine Aminotransfer ALT/SGPT 9 U/L (<=46); Albumin, Serum 4.1 g/dL (3.4-4.8); Alkaline Phosphatase 119 U/L (40-129); Anion Gap 12 (5-15); BUN 33 mg/dL (4-19); BUN/Creat Ratio 16.1 RATIO (10-20); Calcium,Total 9.7 mg/dL (7.6-11.0); Carbon Dioxide 28.6 mmol/L (21.0-32.0); Chloride 101 mmol/L (98-108); Cholesterol 205 mg/dL (<=200); Creatinine, Serum 2.08 mg/dL (0.70-1.20); EST Glomerular Filtration Rate 31 (>60); Glucose 123 mg/dL (70-99); High Density Lipoprotein 34 mg/dL; Low Density Lipoprotein Calc. 131 mg/dL; Potassium 4.5 mmol/L (3.3-5.1); Pro- Brain NATRIURETIC PEPTIDE 163 pg/mL (<=1800); Protein, Total 7.1 g/dL (5.9-8.4); Sodium Level 142 mmol/L (133-145); Total Bilirubin 0.16 mg/dL (0.00-1.30); Triglycerides 197 mg/dL; Very Low Density Lipoprotein 39 mg/dL (5-40); cholesterol:hdl ratio screen 5.99
== END | disposition home or self-care (01) ==
LOC: LAB 14:53
PROVIDERS: PCP Student in an Organized Health Care Education/Training Program; Referring Provider Internal Medicine Cardiovascular Disease; Visit Provider Internal Medicine Cardiovascular Disease
DX: R06.00 Dyspnea, unspecified (principal); N18.9 Chronic kidney disease, unspecified; I25.5 Ischemic cardiomyopathy; I25.10 Atherosclerotic heart disease of native coronary artery without angina pectoris; E78.2 Mixed hyperlipidemia
CPT/HCPCS: 36415; 80053; 80061; 83880

== ENCOUNTER → 2025-01-18 | Outpatient (CLI) | payer MEDICARE, OTHER, SELFPAY ==
[2016-12-21 14:00] VITALS: BMI 28.0
--- NOTE | 2025-01-18 07:05 | ECHOD_ITS ---
Reason For Study Reason For Study: DYSPNEA Procedure This was a 2D Doppler, Color Flow transthoracic echocardiogram. Exam performed in department. Left Ventricle Mild concentric left ventricular hypertrophy. Normal LV size. The LV ejection fraction is 60 %. Stage 1 diastolic dysfunction. Right Ventricle Normal right ventricle. Atria The left and right atria are normal. Mitral Valve Trivial mitral valve insufficiency. Tricuspid Valve Mild tricuspid valve insufficiency. Right ventricular systolic pressure estimated to be 37 mmHg. Aortic Valve Aortic sclerosis, no stenosis. Pulmonic Valve Mild (1+) pulmonic valve insufficiency. Great Vessels Normal sized aortic root. Pericardium/Pleural No pericardial effusion. MMode/2D Measurements & Calculations LVIDd: 4.1 cm IVSd: 1.4 cm LVOT diam: 2.0 cm LVIDs: 3.2 cm LVPWd: 1.2 cm LVOT area: 3.0 cm2 FS: 23.2 % Ao root diam: 3.2 cm LAV(MOD-bp): 34.7 ml LVAd ap4: 24.3 cm2 LAV(MOD-bp) Indexed: 18.5 ml/m2 LVLd ap4: 7.7 cm LAV(MOD-sp2): 36.1 ml EDV(MOD-sp4): 64.7 ml LAV(MOD-sp4): 32.6 ml EDV(sp4-el): 64.8 ml LVAs ap4: 13.6 cm2 LVLs ap4: 5.9 cm ESV(MOD-sp4): 26.0 ml ESV(sp4-el): 26.4 ml EF(MOD-sp4): 59.9 % EF(sp4-el): 59.3 % SV(MOD-sp4): 38.8 ml SV(sp4-el): 38.4 ml LA A4 area: 14.7 cm2 SI(MOD-sp4): 20.7 ml/m2 LA dimension(2D): 3.9 cm RA A4 area: 13.8 cm2 Time Measurements MV dec time: 0.26 sec Doppler Measurements & Calculations MV E max robin: 67.7 cm/sec Med Peak E' Robin: 7.4 cm/sec MV V2 max: 115.9 cm/sec MV A max robin: 116.3 cm/sec E/E' med: 9.1 MV max P.4 mmHg MV E/A: 0.58 MV V2 mean: 58.0 cm/sec MV mean P.6 mmHg MV V2 VTI: 35.3 cm MVA(VTI): 2.3 cm2 MV dec slope: 271.9 cm/sec2 Ao V2 max: 120.8 cm/sec LV V1 max: 84.6 cm/sec Ao max P.8 mmHg LV V1 max P.1 mmHg Ao V2 mean: 78.1 cm/sec LV V1 mean P.2 mmHg Ao mean P.9 mmHg LV V1 mean: 83.4 cm/sec Ao V2 VTI: 26.9 cm LV V1 VTI: 27.1 cm AV (velocity ratio): 1.0 SONY(I,D): 3.1 cm2 SONY(V,D): 2.1 cm2 SV(LVOT): 82.6 ml PA V2 max: 118.9 cm/sec TR max robin: 281.9 cm/sec PA V2 mean: 73.8 cm/sec TR max P.8 mmHg ECHO/Echo Complete Interpretation Summary Mild concentric left ventricular hypertrophy. The LV ejection fraction is 60 %. Stage 1 diastolic dysfunction. Mild tricuspid valve insufficiency. Right ventricular systolic pressure estimated to be 37 mmHg. Mild (1+) pulmonic valve insufficiency. Ordering Physician: Srini Montano Referring Physician: Srini Montano Performed By: Nelly Gamble RCS
--- NOTE | 2025-01-18 07:06 | CT_ITS ---
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 One or more dose reduction techniques were used (e.g., Automated exposure control, adjustment of the mA and/or kV according to patient size, use of iterative reconstruction technique. RADIATION DOSE SUMMARY: CTDlvol: 44.99 mGy DLP: 798 mGycm COMPARISON: None. FINDINGS: Mild diffuse cortical atrophy, commensurate with the patient's age. Scattered hypodense foci in the periventricular and subcortical white matter suggestive of chronic ischemic white matter disease. Normal size of the ventricles and extra-axial spaces for the patient's age. Normal basal ganglia and thalami. Normal brainstem. Normal cerebellum. There is no demonstrated extra-axial, intraparenchymal, or intraventricular hemorrhage. There are no findings of an acute ischemic infarction. Normal calvarium. There is no demonstrated fracture. Normal soft tissue structures. Mild chronic mucosal inflammatory changes of the right frontal sinus. Normal remaining visualized paranasal sinuses. CT/Brain/Head without Contrast IMPRESSION: No CT evidence for acute brain abnormality. Reading Location: [facility]
--- OUTSIDE RECORDS SUMMARY | 2025-01-18 07:11 | XMS RPT_ITS | CCD ---
Author Organization [facility] Care Team Providers Care Studio Model Name Role Phone MD Daniel, Rich Perea [...] Unavailable SAMSON RAGSDALE Primary Care Unavailable Aristides SURGEON'S ASSISTANT.Desirae DE LA O Unavailable Dany SURGEON'S ASSISTANT.Lore DE LA O Unavailable Aristides SURGEON'S ASSISTANT.Desirae DE LA O Unavailable DESIRAE IRVING Referring UnavailSAMSON Huizar Primary Care Unavailable SAMSON RAGSDAEL Primary Care Unavailable CRISTELA ANDERSEN Attending Unavailable SAMSON RAGSDALE Primary Care Unavailable MALU MENDOZA Referring Unavailable SAMSON RAGSDALE Primary Care Unavailable SAMSON RAGSDALE Referring Unavailable CRISTELA ANDERSEN Attending Unavailable RAGSDALE, SAMSON L Primary Care Unavailable RAGSDALE, SAMSON L Attending Unavailable DESIRAE IRVING Referring Unavailabl e RAGSDALE, SAMSON L Primary Care Unavailable SWANK KHLOE Referring Unavailable RAGSDALE, SAMSON L Primary Care Unavailable SWANK, KHLOE Attending Unavailable RAGSDALE, SAMSON L Primary Care Unavailable THEODORA HERNANDEZ Referring Unavailable RAGSDALE, SAMSON L Primary Care Unavailable THEODORA HERNANDEZ M Attending Unavailable RAGSDALE, SAMSON L Primary Care Unavailable RAGSDALE, SAMSON L Attending Unavailable RAGSDALE, SAMSON L Primary Care Unavailable Dr. Samson Ragsdlae DO Primary Care Provider Elieser ASTORGA, Dr. Medina Emergency Provider [phone] Dr. Samson Ragsdale DO Referring Provider Dusty ASTORGA, Dr. Milligan Attending Provider [phone] Ragsdale, Samson Primary Care Unavailable Dusty, Srini Attending Unavailable Dusty, Srini Referring Unavailable Ragsdale, Samson Primary Care Unavailable Ragsdale, Samson Referring Unavailable Dusty, Srini Attending Unavailable Ragsdale, Samson Primary Care Unavailable Adam Mon Attending Unavailable Ragsdale, Samson Primary Care Unavailable Dusty, Srini Attending Unavailable Dusty, Srini Referring Unavailable Dusty, Srini Attending Unavailable Ragsdale, Samson Primary Care Unavailable Dusty, Srini Referring Unavailable Ragsdale, Samson Primary Care Unavailable Dusty, Srini Referring Unavailable Dusty, Srini Attending Unavailable Chayarosita VILLAREALBATTERY CONTAINER TESTER ALUMINUM, Christine Kaplan Unavailable Allergies Allergy Classification Reported Allergen(s) Allergy Type Date of Onset Reaction(s) Facility (4 sources) atorvastatin Drug Allergy 7 myalgias [facility] Work Phone: (4 sources) chondroitin sulfates / glucosamine Drug Allergy 7 rash [facility] Work Phone: (20 sources) ibuprofen; Translations: [ibuprofen] Drug Allergy 6 Rash [facility] Work Phone: (8 sources) ARTHRITIS MEDICATION; Translations: [ARTHRITIS MEDICATION] allergy to substance 7 rash [facility] Work Phone: (20 sources) atorvastatin; Translations: [ATORVASTATIN] Drug Allergy 8 Unknown [facility] (20 sources) Glucosamine; Translations: [GLUCOSAMINE] Drug Allergy 7 Unknown [facility] Work Phone: (4 sources) HMG-CoA reductase inhibitor; Translations: [[id number] REDUCTASE INHIBITORS] Drug Intolerance 5 Other: See Comments [facility] Work Phone: (20 sources) Pravastatin; Translations: [PRAVASTATIN] Drug Allergy 3 Other: See Comments [facility] Work Phone: (20 sources) rosuvastatin; Translations: [ROSUVASTATIN CALCIUM] Drug Allergy 3 Other: See Comments [facility] (20 sources) HMG-CoA reductase inhibitor Drug Intolerance 5 Other: See Comments [facility] Work Phone: (1 source) Naproxen; Translations: [naproxen] Drug Allergy [facility] (1 source) rosuvastatin Drug Allergy 5 NEEDS FOLLOW-UP [facility] (1 source) Ktgrloe-Grq-Roj Reductase Inhibitor Propensity to adverse reactions 5 NEEDS FOLLOW-UP [facility] (1 source) atorvastatin Drug Allergy 5 [facility] (1 source) Glucosamine Drug Allergy 5 [facility] (1 source) Pravastatin Drug Allergy 5 [facility] (1 source) rosuvastatin Drug Allergy 5 [facility] (1 source) Bvgyrqg-Kma-Vsr Reductase Inhibitor Drug allergy (disorder) 5 [facility] Medications Current Medications Medication Drug Class(es) Dates Sig (Normalized) Sig (Original) acetaminophen 325 mg / HYDROcodone bitartrate 5 mg oral tablet (6 sources) Opioid Agonist Start: 01-14-2025 Hydrocodone-Acetam inophen 5-325 mg tablet Active 1 {tbl} PO as needed for pain January 14, 2025 12:00am Start: 11-26-2024 End: 12-03-2024 take 1 tablet by mouth twice daily as needed for pain HYDROcodone-acetaminophen (NORCO) 5-325 mg per tablet Indications: Upper back pain , Acute pain of both shoulders Take 1 tablet by mouth two times a day as needed for pain for up to 7 days. 14 tablet 11/26/2024 12/03/2024 Active Start: 06-21-2019 End: 04-21-2021 Hydrocodone-Acetaminophen 5- 325 mg tablet Discontinued 1 {tbl} PO EVERY 6 HOURS as needed for gout flare June 21, 2019 1:00am April 21, 2021 2:00pm allopurinol 100 mg oral tablet (20 sources) Xanthine Oxidase Inhibitor Start: 06-21-2019 End: 04-03-2024 take 1 tablet by mouth once daily allopurinol (ZYLOPRIM) 100 mg tablet Indications: Gout of multiple sites, unspecified cause, unspecified chronicity Take 1 tablet by mouth once daily. 90 tablet 3 04/03/2024 Active Comment on above: Take 1 tablet by sameer th once daily. amLODIPine 10 mg oral tablet (20 sources) Dihydropyridine Calcium Channel Amrita Start: 01-13-2025 End: 01-14-2025 take 2 tablets by mouth once daily Amlodipine 5 mg tablet Discontinued 10 mg PO DAILY January 13, 2025 12:00am January 14, 2025 5:54pm Start: 03-23-2022 End: 09-26-2024 take 1 tablet by mouth once daily in the evening Amlodipine 10 mg tablet Active 10 mg PO EVERY EVENING January 14, 2025 12:00am Start: 11-23-2018 End: 01-13-2025 take 1 tablet by mouth once daily Amlodipine 5 mg tablet Discontinued 5 mg PO DAILY November 23, 2018 12:00am January 13, 2025 11:20pm Start: 07-04-2014 End: 05-08-2018 take 1 tablet by mouth once daily Amlodipine 5 MG tablet Discontinued 5 mg PO DAILY July 04, 2014 1:00am May 08, 2018 2:07pm Comment on above: Take 1 tablet by sameer th once daily. Take 1 tablet by sameer th once daily. In the evening aspirin 81 mg chewable tablet (7 sources) Nonsteroidal Anti-inflammatory Drug Start: 05-28-2023 End: 08-20-2024 [facility] Aspirin 81 mg oral tablet, (chewable) Dose : 81 mg = 1 tab(s), Oral, qDayM, # 90 tab(s), 4 Refill(s), Pharmacy: [id number], 172.7, cm, 05/24/23 21:25:00 EDT, Height, kg, 05/24/23 21:25:00 EDT, Dosing Weight Start Date: 05/28/23 Stop Date: 08/20/24 Status: Ordered Start: 12-24-2016 End: 05-08-2018 take 1 tablet by mouth once daily Aspirin 81 MG tablet Discontinued 81 mg PO DAILY@0800 December 24, 2016 12:00am May 08, 2018 2:07pm atorvastatin 40 mg oral tablet (9 sources) HMG-CoA Reductase Inhibitor Start: 05-28-2023 End: 08-20-2024 atorvastatin 40 mg oral tablet Dose : 40 mg = 1 tab(s), Oral, qDay, # 90 tab(s), 4 Refill(s), Pharmacy: [facility], 172.7, cm, 05/24/23 21:25:00 EDT, Height, kg, 05/24/23 21:25:00 EDT, Dosing Weight Start Date: 05/28/23 Stop Date: 08/20/24 Status: Ordered Start: 12-30-2016 End: 02-16-2017 take 1 tablet by mouth once daily LIPITOR 80 MG TABS One tablet by mouth daily ATORVASTATIN CALCIUM [id number] Yu Jsohi RN Blood-Glucose Meter (FREESTY LE LITE METER) [...] calcium carbonate 1500 mg or al tablet (9 sources) Start: 10-07-2020 Caltrate 600 m g oral tablet Dose : 1,200 mg = 2 tab(s), Oral, Daily, # 60 tab(s), 0 Refill(s) Start Date: 10/07/20 Status: Ordered Start: 03-29-2017 End: 05-08-2018 Calcium Carbonate 200 MG tab let,chewable Discontinued 500 mg PO DAILY March 29, 2017 12:00am May 08, 2018 2:01pm Start: 03-29-2017 End: 01-14-2025 Calcium Carbonate 500 MG tab let,chewable Discontinued 1 {tbl} PO DAILY March 29, 2017 12:00am January 14, 2025 5:59pm Start: 01-18-2017 TUMS 500 MG CH EW ad directed CALCIUM CARBONATE ANTACID [id number] Pat Greenfield PA-C calcium carbonate 1500 mg / cholecalciferol 800 unt chewable tablet (1 source) Vitamin D Start: 01-14-2025 Calcium Carbonate-Vitamin D3 (Caltrate 600 Plus D) 600 mg-20 mcg (800 unit) tablet,chewable Active 1 {tbl} PO daily January 14, 2025 12:00am CALTRATE-600 PLUS VITAMIN D3 600 MG-200 UNIT ORAL TAB (20 sources) Start: 03-25-2005 take 2 tablets by mouth once daily CALTRATE-600 PLUS VITAMIN D3 600 MG-200 UNIT ORAL TAB TAKE TWO TABLETS DAILY. 0 03/25/2005 Active Comment on above: TAKE TWO TABLETS AMBAR LY. carvedilol 25 mg oral tablet (20 sources) alpha-Adrener gic Amrita, beta-Adrenerg ic Amrita Start: 05-28-2023 End: 08-26-2023 Coreg 6.25 mg oral tablet Dose : 6.25 mg = 1 tab(s), Oral, BIDM, # 60 tab(s), 2 Refill(s), Pharmacy: [id number], 172.7, cm, 05/24/23 21:25:00 EDT, Height, kg, 05/24/23 21:25:00 EDT, Dosing Weight Start Date: 05/28/23 Stop Date: 08/26/23 Status: Ordered Start: 01-13-2022 End: 09-26-2024 take 1 tablet by mouth twice daily Carvedilol 25 mg tablet Active 25 mg PO TWICE A DAY January 14, 2025 12:00am Start: 09-15-2021 End: 06-10-2022 take 1 tablet [...] 180 tablet 1 09/15/2021 03/23/2022 Discontinued Start: 04-21-2021 End: 01-14-2025 take 2 tablets by mouth once daily at mealtime Carvedilol 12.5 mg tablet Discontinued 25 mg PO DAILY April 21, 2021 12:00am January 14, 2025 5:53pm must administer with a meal/food Start: 09-09-2020 End: 03-10-2021 take 1 tablet [...] meals. 180 tablet 1 01/24/2020 07/17/2020 Discontinued Start: 11-23-2018 End: 06-21-2019 take 1 tablet by mouth twice daily at mealtime Carvedilol (Coreg) 6.25 mg tablet Discontinued 6.25 mg PO TWICE A DAY 180 November 23, 2018 2:30pm June 21, 2019 2:13pm must administer with a meal/food Comment on above: Take 1 tablet by sameer th twice daily with meals. Take 1 tablet by sameer th twice daily. Adding to 12.5 mg carvedilol dose twice a day Take 1 tablet by sameer th twice daily. Take 1 tablet by sameer th two times a day. cetirizine hydrochloride 10 mg oral tablet (20 sources) Histamine-1 Receptor Antagonist Start: 8 take 5 mg by mouth once daily Cetirizine (Zyrtec) 10 mg tablet Active 5 mg PO DAILY May 08, 2018 12:00am Start: 07-03-2013 Zyrtec 10 mg o ral tablet (NF) Dose : 10 mg = 1 tab(s), Oral, Daily, PRN for allergy symptoms, # 10 tab(s), 0 Refill(s) Start Date: 07/03/13 Status: Ordered take 1 tablet by sameer th once daily cetirizine HCl (ZYRTEC) 10 mg chewable tablet Take 10 mg by mouth once daily. Active Comment on above: Take 10 mg by mouth once daily. cholecalciferol 0.125 mg oral capsule (20 sources) Vitamin D Start: 06-21-20 19 take 1 capsule by mouth once daily Cholecalciferol (Vitamin D3) 5,000 unit capsule Active 5000 U PO DAILY June 21, 2019 1:00am Start: 03-29-2017 End: 06-21-2019 Cholecalciferol (Vitamin D3) 2,000 UNIT capsule Discontinued 1 NMA PO DAILY March 29, 2017 12:00am June 21, 2019 2:14pm Start: 01-18-2017 take 1 tablet by sameer th once daily VITAMIN D 2000 UNIT TABS One tablet by mouth daily CHOLECALCIFEROL [id number] Pat Greenfield PA-C take 1 tablet by sameer th twice daily cholecalciferol (VITAMIN D3) 5,000 unit tab Take 5,000 Units by mouth twice daily. Active Comment on above: Take 5,000 Units by mouth twice daily. CHOLECALCIFEROL, VITAMIN D3, (VITAMIN D3 ORAL) [...] tablet (20 sources) P2Y12 Platelet Inhibitor Start: End: take 1 tablet by mouth once daily clopidogrel (PLAVIX) 75 mg tablet Indications: Hypertensive heart disease without heart failure Take 1 tablet by mouth once daily. 90 tablet 3 04/27/2024 Active Start: 07-04-2014 End: 12-24-2016 take 1 tablet by mouth once daily Clopidogrel 75 MG tablet Discontinued 75 mg PO DAILY July 04, 2014 1:00am December 24, 2016 2:30pm Comment on above: Take 1 tablet by sameer once daily. Co Q-10 100 mg oral capsule (1 source) Start: 10-12-2022 Co Q-10 100 mg oral capsule Dose : 100 mg = 1 cap(s), Oral, Daily, 0 Refill(s) Start Date: 10/12/22 Status: Ordered diclofenac sodium 0.01 mg/mg topical gel (20 sources) Nonsteroidal Anti-inflammatory Drug Start: 01-14-2025 Diclofenac Sodium (Arthritis Pain (Diclofenac)) 1 % gel Active 2 g TOPICAL 4 TIMES DAILY as needed January 14, 2025 12:00am apply to single elbow, wrist or hand; for hand includes palm/fingers/back of hand Start: 02-07-2020 apply 2 g topically four times daily diclofenac sodium (VOLTAREN) 1 % topical gel Apply 2 g to affected area four times daily. 100 g 02/07/2020 Active Comment on above: Apply 2 g to affecte d area four times daily. doxycycline hyclate 100 mg oral tablet (3 sources) Tetracycline-class Drug Start: 01-09-2025 End: 01-16-2025 take 1 tablet by mouth twice daily [...] on above: Take 1 tablet by sameer twice daily for 7 days. ferrous sulfate 159 mg extended release oral tablet (20 sources) Start: 01-13-2025 take 1 tablet by mouth once daily Ferrous Sulfate, Dried (Iron) 159 mg (45 mg iron) tablet extended release Active 159 mg PO DAILY January 13, 2025 12:00am Start: 02-07-2020 End: 04-21-2021 take 1 tablet by mouth every other day Ferrous Sulfate 324 mg (65 mg iron) tablet,delayed release (DR/EC) Discontinued 324 mg PO every other day February 07, 2020 3:58pm April 21, 2021 2:01pm Start: 11-10-2017 End: 02-07-2020 take 1 tablet by mouth twice daily Ferrous Sulfate 324 mg (65 mg iron) tablet,delayed release (DR/EC) Discontinued 324 mg PO TWICE A DAY November 10, 2017 12:00am February 07, 2020 4:01pm Start: 06-27-2017 IRON (ferrous sulfate 325 mg) 65 mg oral tablet Dose : 325 mg = 1 tab(s), Oral, qDay, Take with food., # 60 tab(s), 3 Refill(s) Start Date: 10/07/20 Status: Ordered End: 01-17-2025 take 1 tablet by mouth every other day ferrous sulfate 325 mg (65 mg iron) tablet Take 325 mg by mouth two times a day. Taking 1 every other day 01/17/2025 Discontinued Comment on above: Take 325 mg by mouth twice daily. Take 325 mg by mouth two times a day. Taking 1 every other day flax seed oil (1 source) Start: 01-14-2025 flax seed oil Active PO DAILY January 14, 2025 12:00am flaxseed oil (OMEGA 3 ORAL) (20 sources) flaxseed oil (OM EGA 3 ORAL) Take by mouth. Active flaxseed oil (OM EGA 3 ORAL) Take by mouth. 0 Active Comment on above: Take by mouth. fluticasone / salmeterol (1 source) Corticosteroid, beta2-Adrenergic Agonist Start: take 1 puff(s) by inhalation twice daily fluticasone-salmeter ol (ADVAIR DISKUS) 100-50 mcg/dose inhaler Indications: SOB (shortness of breath) Inhale 1 puff as instructed two times a day. 60 each 1 01/17/2025 Active furosemide 40 mg oral tablet (20 sources) Loop Diuretic Start: 7 End: 8 take 1 tablet by mouth twice daily Furosemide 40 mg tablet Discontinued 40 mg PO TWICE A DAY 60 November 11, 2017 10:58am May 08, 2018 2:07pm Dose was increased Start: 12-24-2016 End: 01-14-2025 take 1 tablet by mouth once daily furosemide (LASIX) 40 mg tablet Take 1 tablet by mouth once daily. 90 tablet 3 04/19/2017 Active Comment on above: Take 1 tablet by sameer once daily. hydrocortisone 25 mg/ml topical cream (20 sources) Corticosteroid Start: 01-14-2025 Hydrocortisone 2.5 % cream Active 1 NMA TOPICAL TWICE A DAY as needed January 14, 2025 12:00am Start: 05-01-2018 hydrocortisone 2.5 % cream Indications: Psoriasis Apply 1 application to affected area twice daily. Location: face 30 g 2 05/01/2018 Active Comment on above: Apply 1 application to affected area twi ce daily. Location: face 3 ml insulin glargine 100 unt/ml pen injector (20 sources) Insulin Analog Start: 10-28-19 23 inject 10 [IU] by subcutaneous injection once [...] at bedtime. 5 Each 3 01/27/2024 Active Start: 05-08-2018 Insulin Glargi ne (Lantus U-100 Insulin) 100 unit/mL solution Active 10 U SC AT BEDTIME May 08, 2018 2:04pm Start: 10-18-2017 End: 05-08-2018 Insulin Glargine (Lantus U-1 00 Insulin) 100 unit/mL solution Discontinued 12 U SC AT BEDTIME October 18, 2017 12:00am May 08, 2018 2:07pm Comment on above: Inject 10 Units subc utaneously daily at bedtime. 24 hr isosorbide mononitrate 30 mg extended release oral tablet (20 sources) Start: 03-04-20 End: 04-27-20 take 1 tablet by mouth once daily isosorbide mononitrate ER (IMDUR) 30 mg 24 hr tablet Indications: Hypertensive heart disease without heart failure Take 1 tablet by mouth once daily. 90 tablet 3 04/27/2024 Active Comment on above: Take 1 tablet by sameer once daily. losartan potassium 50 mg oral tablet (20 sources) Angiotensin 2 Receptor Amrita Start: 09-26-19 End: 09-26-19 take 0.5 tablet by mouth once daily losartan (COZAAR) 50 mg tablet Indications: CKD (chronic kidney disease) stage 4, GFR 15-29 ml/min ([facility]) Take 0.5 tablets by mouth once daily. 45 tablet 3 09/26/2024 Active Start: 05-28-2023 End: 08-26-2023 losartan 25 mg oral tablet D ose : 25 mg = 1 tab(s), Oral, qDay, # 30 tab(s), 2 Refill(s), Pharmacy: [facility], 172.7, cm, 05/24/23 21:25:00 EDT, Height, kg, 05/24/23 21:25:00 EDT, Dosing Weight Start Date: 05/28/23 Stop Date: 08/26/23 Status: Ordered Start: 10-26-2019 End: 09-26-2023 take 1 tablet by mouth once daily losartan (COZAAR) 50 mg tablet Indications: CKD (chronic kidney disease) stage 4, GFR 15-29 ml/min ([facility]) Take 1 tablet by mouth once daily. 90 tablet 3 06/10/2022 09/26/2023 Discontinued Start: 06-21-2019 Losartan 50 mg tablet Active 25 mg PO DAILY June 21, 2019 1:00am Start: 12-24-2016 End: 06-21-2019 take 1 tablet by mouth once daily Losartan 25 mg tablet Discontinued 25 mg PO DAILY 90 October 26, 2018 3:11pm June 21, 2019 2:12pm Comment on above: Take 1 tablet by [...] 3 Refill(s) Start Date: 07/03/13 Status: Ordered [place]-3 1000 mg oral capsule (1 source) Start: 10-13-19 take 1 capsule by mouth once daily [place]-3 1000 mg oral capsule mg = cap(s), Oral, qDay, 0 Refill(s) Start Date: 10/12/22 Status: Ordered potassium chloride 10 meq extended release oral capsule (20 sources) Start: 01-15-20 25 take 1 capsule by mouth once daily Potassium Chloride 10 mEq capsule, extended release Active 10 meq PO daily January 14, 2025 12:00am Start: 10-07-2020 potassium chlo ride 10 mEq oral capsule, extended release Dose : 10 mEq = 1 cap(s), Oral, Daily, take with food., # 60 cap(s), 0 Refill(s) Start Date: 10/07/20 Status: Ordered Start: 04-19-2017 take 1 tablet by sameer th once daily potassium chloride (KLOR-CON 10) 10 mEq tablet Take 1 tablet by mouth once daily. 90 tablet 3 04/19/2017 Active Start: 12-30-2016 End: 03-07-2017 take 1 tablet by mouth once daily POTASSIUM CHLORIDE ER 10 MEQ CR-TABS One tablet by mouth daily POTASSIUM CHLORIDE [id number] Pat Greenfield PA-C Start: 12-24-2016 End: 06-16-2021 take 1 tablet by mouth once daily Potassium Chloride 10 mEq tablet,ER particles/crystals Discontinued 10 meq PO DAILY October 30, 2019 5:33pm February 08, 2020 12:04pm Comment on above: Take 1 tablet by [facility] once daily. predniSONE 10 mg oral tablet (10 sources) Start: 11-26-2024 End: 12-11-2024 predniSONE (DELTASONE) [...] 5 days. 10 tablet 0 07/28/2022 08/02/2022 Start: 06-21-2019 End: 04-21-2021 take 1 tablet by mouth once daily as needed Prednisone 10 mg tablet Discontinued 10 mg PO daily as needed for GOUT June 21, 2019 2:13pm April 21, 2021 2:01pm Start: 10-18-2017 End: 06-21-2019 take 4 tablets by mouth once daily as needed Prednisone 10 mg tablet Discontinued 40 mg PO daily as needed for GOUT October 18, 2017 12:00am June 21, 2019 2:15pm Comment on above: Take 2 tablets by [facility] once daily for 5 days. triamcinolone acetonide 0.055 mg/actuat metered dose nasal spray (20 sources) Corticosteroid Start: 01-10-20 take 2 spray(s) nasal route once daily triamcinolone acetonide (NASACORT ALLERGY) 55 mcg nasal inhaler Use 2 sprays in each nostril once daily. 16.9 mL 01/09/2025 Active Start: 07-09-2016 End: 01-17-2025 triamcinolone acetonide (JAUN ALOG) 0.1 % cream Apply 1 application to affected area twice daily as needed (rash). Apply sparingly to area for rash/itching. 60 g 3 07/09/2016 01/17/2025 Discontinued Comment on above: Apply 1 application to affected area twice daily as needed (rash). Apply sparingly to area for rash/itching. ubidecarenone 100 mg oral capsule (20 sources) Start: 10-10-19 15 take 1 capsule by mouth once coenzyme Q10 (COENZYME Q-10) 100 mg cap capsule Take 1 capsule by mouth. 0 10/09/2014 Active Comment on above: Take 1 capsule by [facility]. vitamin b12 5 mg oral capsule (2 sources) Vitamin B12 Start: 01-14-20 take 1 capsule by mouth once daily Cyanocobalamin (Vitamin B-12) 5,000 mcg capsule Active 5000 ug PO DAILY January 13, 2025 12:00am Vitamin D3 (1 source) Start: 10-08-19 Vitamin D3 Dose : 5,000 unit(s) = 1 cap(s), Oral, qDay, # 30 cap(s), 0 Refill(s) Start Date: 10/07/20 Status: Ordered Zinc (2 sources) Start: 01-14-20 take 1 tablet by mouth once daily Zinc 50 mg tablet Active 50 mg PO DAILY January 13, 2025 12:00am Zinc Sulfate (7 sources) take 1 tablet by mouth once [...] CR-TABS As needed ACETAMINOPHEN Yu Joshi RN acetaminophen 325 mg / oxyCODONE hydrochloride 5 mg oral tablet (2 sources) Opioid Agonist Start: 01-12-2024 End: 01-14-2025 Oxycodone-Acetaminophen 5-325 mg tablet Discontinued 1 {tbl} PO EVERY 6 HOURS NEEDED as needed for Pain 12 3 January 12, 2024 January 14, 2025 5:59pm amoxicillin 875 mg / clavulanate 125 mg oral tablet (2 sources) Penicillin-class Antibacterial Start: 01-12-2024 End: 01-13-2025 take 1 tablet by mouth every twelve hours Amoxicillin-Pot Clavulanate 875-125 mg tablet Discontinued 875 mg PO Q12H January 12, 2024 12:00am January 13, 2025 11:20pm B-Complex With Vitamin C capsule (2 sources) Start: 11-23-2018 End: 01-14-2025 B-Complex With Vitamin C capsule Discontinued 1 NMA PO DAILY November 23, 2018 12:00am January 14, 2025 5:59pm Start: 11-23-2018 B-Complex With Vitamin C capsule Active 1 NMA PO DAILY November 23, 2018 12:00am benzonatate 100 mg oral capsule (20 sources) Non-narcotic Antitussive Start: 11-25-2021 End: 04-13-2024 take 1 capsule by mouth every eight hours as needed benzonatate (TESSALON PERLES) 100 mg capsule Take 1 capsule by mouth three times daily as needed for cough. 21 capsule 11/25/2021 04/13/2024 Discontinued (Discontinued by Patient) Comment on above: Take 1 capsule by [facility] three times daily as needed for cough. calcium (4 sources) Phosphate Binder, Calcium Start: 01-18-2017 take 1 tablet by mouth once daily CALCIUM 500 MG TABS One tablet by mouth daily CALCIUM [id number] Pat Greenfield PA-C calcium carbonate / vitamin D (8 sources) Start: 12-30-2016 take 1 tablet by mouth once daily CALTRATE 600+D 600-400 MG-UNIT TABS One tablet by mouth daily CALCIUM CARBONATE-VITAMIN D [id number] Yu Joshi RN Start: 12-30-2016 End: 01-18-2017 take 1 tablet by mouth once daily CALTRATE 600+D 600-400 MG-UNIT TABS One tablet by mouth daily CALCIUM CARBONATE-VITAMIN D [id number] Pat Greenfield PA-C codeine phosphate 2 mg/ml / guaiFENesin 20 mg/ml oral solution (1 source) Opioid Agonist Start: 07-28-2022 End: 08-02-2022 take 10 mL by mouth once daily at bedtime codeine-guaiFENesin (GUAIFENESIN AC) 10-100 mg/5 mL syrup Indications: Bronchitis Take 10 mL by mouth daily at bedtime for 5 days. 50 mL 0 07/28/2022 08/02/2022 Comment on above: Take 10 mL by mouth daily at bedtime for 5 days. COENZYME Q10 (4 sources) Start: 04-20-2017 take 1 tablet by mouth once daily CO Q 10 100 MG CAPS One tablet by mouth daily COENZYME Q10 [id number] Nolan Triana MD colchicine 0.6 mg oral tablet (2 sources) Start: 11-23-2018 End: 04-21-2021 take 1 tablet by mouth twice daily as needed Colchicine (Colcrys) 0.6 mg tablet Discontinued 0.6 mg PO TWICE A DAY as needed November 23, 2018 12:00am April 21, 2021 2:01pm COMPOUNDED PRESCRIPTION (20 sources) End: 09-09-[address] [facility] Kidney Bladder 09/09/2020 [...] CRANBERRY Active CRANBERRY 24 hr dilTIAZem hydrochloride 180 mg extended release oral capsule (8 sources) Calcium Channel Amrita Start: 11-23-2018 End: 11-23-2018 take 1 capsule by mouth once daily Diltiazem Hcl 180 mg capsule,extended release 24 hr Discontinued 180 mg PO DAILY November 23, 2018 12:00am November 23, 2018 2:07pm Start: 02-21-2017 End: 11-23-2018 take 1 capsule by mouth once daily Diltiazem Hcl 120 MG capsule,extended release 24hr Discontinued 120 mg PO DAILY March 29, 2017 12:00am November 23, 2018 1:31pm ezetimibe 10 mg oral tablet (13 sources) Dietary Cholesterol Absorption Inhibitor Start: 10-18-2017 End: 09-09-2020 take 1 tablet by mouth once daily Ezetimibe (Zetia) 10 mg tablet Discontinued 10 mg PO daily October 18, 2017 10:36am June 21, 2019 2:10pm Start: 12-30-2016 End: 01-18-2017 take 1 tablet by mouth once daily ZETIA 10 MG TABS One tablet by mouth daily EZETIMIBE [id number] Pat Greenfield PA-C famotidine 20 mg oral tablet (20 sources) Histamine-2 Receptor Antagonist Start: 10-07-2020 famotidine 10 mg ora l tablet Dose : 20 mg = 2 tab(s), Oral, Daily, as needed, # 180 tab(s), 0 Refill(s) Start Date: 10/07/20 Status: Ordered Start: 07-27-2019 End: 01-14-2025 take 1 tablet by mouth at bedtime as needed Famotidine 20 mg tablet Discontinued 20 mg PO AT BEDTIME as needed February 07, 2020 12:00am January 14, 2025 5:59pm Comment on above: Take 1 tablet by sameer at bedtime as needed. gemfibrozil 600 mg oral tablet (9 sources) Peroxisome Proliferator Receptor alpha Agonist Start : 02-16 End: 09-09 take 1 tablet by mouth twice daily before mealtime Gemfibrozil 600 mg tablet Discontinued 600 mg PO TWICE DAILY BEFORE MEALS 60 November 11, 2017 10:59am May 08, 2018 2:06pm hydroCHLOROthiazide 25 mg oral tablet (2 sources) Thiazide Diuretic Start : 07-04 End: 12-24 take 1 tablet by mouth once daily Hydrochlorothiazide 25 MG tablet Discontinued 25 mg PO DAILY July 04, 2014 1:00am December 24, 2016 2:30pm lisinopril 5 mg oral tablet (2 sources) Angiotensin Converting Enzyme Inhibitor Start : 07-04 End: 12-24 take 1 tablet by mouth once daily Lisinopril 5 MG tablet Discontinued 5 mg PO DAILY July 04, 2014 1:00am December 24, 2016 2:30pm magnesium oxide 400 mg oral tablet (2 sources) Start : 11-23 End: 01-14 take 1 tablet by mouth once daily Magnesium Oxide 400 mg (241.3 mg magnesium) tablet Discontinued 500 mg PO DAILY November 23, 2018 12:00am January 14, 2025 6:00pm metoprolol tartrate 25 mg oral tablet (6 sources) beta-Adrenergic Amrita Start : 06-21 End: 04-21 Metoprolol Tartrate 25 mg tablet Discontinued 12.5 mg PO TWICE A DAY June 21, 2019 1:00am April 21, 2021 2:01pm Start: 05-19-2017 End: 06-16-2021 take 0.5 tablet by mouth twice daily Metoprolol Tartrate 25 mg tablet Discontinued 25 mg PO .COMPLEX May 08, 2018 12:00am November 23, 2018 1:36pm 25 mg PO 0.5 tablet (12.5 mg) twice a day; milk thistle/NAC/dandel/turm er (LIVER COMPLEX ORAL) (20 sources) End: 04-13-2024 milk thistle/NAC/dandel/turm er (LIVER COMPLEX ORAL) Take by mouth. 04/13/2024 Discontinued (Discontinued by Patient) milk thistle/NAC /dandel/turmer (LIVER COMPLEX ORAL) Take by mouth. Active milk thistle/NAC /dandel/turmer (LIVER COMPLEX ORAL) Take by mouth. 0 Active Comment on above: Take by mouth. MULTIPLE VITAMINS-MINERALS (4 sources) Start: 04-20-2017 take 1 tablet by mouth once daily DAILY MULTIVITAMIN CAPS One tablet by mouth daily MULTIPLE VITAMINS-MINERALS [id number] Nolan Triana MD ONE DAILY MULTI-VITAMIN ORAL TAB (20 sources) Start: 03-25-2005 End: 05-09-2024 take 1 tablet by mouth once daily ONE DAILY MULTI-VITAMIN ORAL TAB Take one(1) tablet daily. 0 03/25/2005 05/09/2024 Discontinued Start: 03-25-2005 take 1 tablet by [facility] once daily ONE DAILY MULTI-VITAMIN ORAL TAB [...] 10 mL injection (DEFINITY) polyethylene glycol 3350 [id number] mg / potassium chloride 2970 mg / sodium bicarbonate 6740 mg / sodium chloride 5860 mg / sodium sulfate 05416 mg powder for oral solution (1 source) [...] T abel as directed POLYETHYLENE GLYCOL 3350 [id number] Yu Joshi RN Start: 12-30-2016 End: 01-18-2017 MIRALAX PACK Take as directe d POLYETHYLENE GLYCOL 3350 [id number] Pat Greenfield PA-C raNITIdine 150 mg oral tablet (7 sources) Histamine-2 Receptor Antagonist Start: 04-26-2017 End: 04-21-2021 take 1 capsule by mouth at bedtime Ranitidine Hcl 150 mg capsule Discontinued 150 mg PO AT BEDTIME May 08, 2018 12:00am April 21, 2021 2:01pm 125 ml sodium chloride 9 mg/ml prefilled syringe (20 sources) Start: 03-23-2023 End: 06-21-2024 sodium chloride 0.9 % (flush) 10 mL (BD POSIFLUSH) tamsulosin hydrochloride 0.4 mg oral capsule (8 sources) alpha-Adrenergic Amrita Start: 12-30-2016 End: 01-18-2017 take 1 tablet by mouth once daily TAMSULOSIN HCL 0.4 MG CAPS One tablet by mouth daily TAMSULOSIN HCL [id number] SONIA BrownC ticagrelor 90 mg oral tablet (12 sources) Start: 12-30-2016 End: 02-16-2017 take 1 tablet by mouth twice daily BRILINTA 90 MG TABS One tablet by mouth twice daily TICAGRELOR [id number] Yu Joshi RN TRUE METRIX GLUCOSE METER misc (2 sources) Start: 06-27-2017 End: 06-16-2021 TRUE METRIX GLUCOSE METER misc 1 Each as directed. 0 06/27/2017 06/16/2021 Discontinued Turmeric Root Extract 500 mg capsule (2 sources) Start: 11-23-2018 End: 01-14-2025 take 1 capsule by mouth once daily Turmeric Root Extract 500 mg capsule Discontinued 1400 mg PO DAILY November 23, 2018 12:00am January 14, 2025 6:00pm Start: 11-23-2018 take 1 capsule by mo [facility] once daily Turmeric Root Extract 500 mg capsule Active 1400 mg PO DAILY November 23, 2018 12:00am VIT C/VIT E/LUTEIN/MIN/OMEGA -3 (OCUVITE ORAL) (20 sources) End: 04-13-2024 VIT C/VIT E/LUTEIN/MIN/OMEGA -3 (OCUVITE ORAL) Take by mouth. 04/13/2024 Discontinued (Discontinued by Patient) VIT C/VIT E/LUTE IN/MIN/OMEGA-3 (OCUVITE ORAL) Take by mouth. Active VIT C/VIT E/LUTE IN/MIN/OMEGA-3 (OCUVITE ORAL) Take by mouth. 0 Active Comment on above: Take by mouth. Problems Active Problems Problem Classification Problem Date Documented Da te Episodic/Chronic Abdominal hernia (20 sources) Diaphragmatic hernia; Translations: [Diaphragmatic hernia without obstruction or gangrene] 03-25-2005 Episodic Acute and chronic tonsillitis (1 source) Tonsillitis 07-03-2013 Episodic Acute myocardial infarction (7 sources) Acute myocardial infarction of inferior wall; Translations: [Myocardial infarction] Onset: 7 12-30-2016 Chronic Aortic; peripheral; and visceral artery aneurysms (20 sources) Abdominal aortic aneurysm, without rupture; Translations: [Abdominal aortic aneurysm without rupture] Onset: 2 Resolved: 0 12-30-2016 Chronic Comment on above: Large infrarenal sac ular AAA 4.5cm Blindness and vision defects (2 sources) Eye / vision finding; Translations: [Unspecified visual disturbance] 01-17-2025 Episodic Cancer of prostate (20 sources) Malignant tumor of prostate; Translations: [Malignant neoplasm of prostate] Onset: 7 04-20-2017 Chronic Cancer of prostate (20 sources) History of malignant neoplasm of prostate; Translations: [Personal history of malignant neoplasm of prostate] 06-05-2020 Episodic Cardiac dysrhythmias (4 sources) Sinus bradycardia; Translations: [Bradycardia, unspecified] Onset: 7 01-18-2017 Chronic Chronic kidney disease (20 sources) Chronic kidney disease stage 3; Translations: [Chronic kidney disease stage 4] Onset: 7 Resolved: 3 12-30-2016 Chronic Comment on above: avoid nephrotoxic me dications Chronic obstructive pulmonary disease and bronchiectasis (1 source) Bronchitis; Translations: [Bronchitis, not specified as acute or chronic] Episodic Conduction disorders (20 sources) Complete atrioventricular block; Translations: [Atrioventricular block, complete] Onset: 7 01-25-2017 Chronic Coronary atherosclerosis and other heart disease (20 sources) Atherosclerotic heart disease of [place] coronary artery without angina pectoris; Translations: [Angina pectoris] Onset: 1 Resolved: 3 12-30-2016 Chronic Comment on above: 07/03/13-Dr Mijares -PTCA and 2.25x23 mm length Xience stent to the Left Circumflex, 01/26/2008-PTCA/STENT OF THE DIAGONAL USING A TWO 2.25 PIXEL STENT ONE 18MM IN LENGTH AND ONE 13MM IN LENGTH. TAXUS DRUG ELUTING STENT 3.0 X 12MM DEPLOYED IN THE LEFT MAIN TRUNK. 1994-CABG X 1 CASTILLO TO THE LAD-. PCI-DAVID-Mid LCX 2.25 x 23 mm Xience 2004; PCI-DAVID-RCA 3.50 x 16 mm Synergy 12/20/16; PTZ-MHR-Pdgk LCX 2.0 x 20 mm Promus Synergy 03/30/2017CABG x 1 CASTILLO-LAD 1994 History of single-ve ssel CABG with CASTILLO to LAD. Drug-eluting stents to RCA and left circumflex. Coronary atherosclerosis and other heart disease (20 sources) Stented coronary artery; Translations: [Presence of coronary angioplasty implant and graft] Onset: 4 09-26-2013 Episodic Deficiency and other anemia (20 sources) Iron deficiency anemia due to blood loss; Translations: [Iron deficiency anemia secondary to blood loss (chronic)] Onset: 9 08-07-2018 Chronic Deficiency and other anemia (1 source) Iron deficiency anemia; Translations: [Other iron deficiency anemias] Episodic Deficiency and other anemia (2 sources) Chronic anemia; Translations: [Anemia, unspecified] 01-14-2025 Episodic Delirium, dementia, and amnestic and other cognitive disorders (20 sources) Dementia associated with another disease; Translations: [Dementia in other diseases classified elsewhere, unspecified severity, with mood disturbance] Onset: 4 Chronic Diabetes mellitus with complications (20 sources) Type 2 diabetes mellitus; Translations: [Type 2 diabetes mellitus with diabetic chronic kidney disease] Onset: 8 06-05-2020 Chronic Diabetes mellitus without complication (20 sources) Type 2 diabetes mellitus without complication; Translations: [Type 2 diabetes mellitus without complications] Onset: 0 06-09-2020 Chronic Disorders of lipid metabolism (20 sources) Hyperlipidemia; Translations: [Pure hypercholesterolemia] Onset: 7 12-30-2016 Chronic Comment on above: 03/04/14 CHOL 211 TR IG 166 HDL 44 LDL 134 Diverticulosis and diverticulitis (2 sources) Diverticulitis; Translations: [Diverticulitis of intestine, part unspecified, without perforation or abscess without bleeding] 01-20-2024 Chronic Esophageal disorders (4 sources) Gastroesophageal reflux disease; Translations: [Gastroesophageal reflux disease without esophagitis] Onset: 4 07-03-2013 Chronic Essential hypertension (20 sources) Hypertensive disorder; Translations: [Benign essential hypertension] Onset: 7 Resolved: 0 12-30-2016 Chronic Comment on above: Continue current med ications. Gout and other crystal arthropathies (20 sources) Gouty arthritis of right foot; Translations: [Gout, unspecified] Onset: 2 Resolved: 3 09-16-2021 Chronic Hypertension with complications and secondary hypertension (20 sources) Hypertensive heart disease; Translations: [Hypertensive heart disease without heart failure] Onset: 3 01-30-2018 Chronic Mood disorders (1 source) Depressive disorder 07-03-2013 Chronic Noninfectious gastroenteritis (3 sources) Collagenous colitis; Translations: [Collagenous colitis] Onset: 4 05-30-2024 Chronic Nutritional deficiencies (20 sources) Vitamin D deficiency; Translations: [Vitamin D deficiency, unspecified] Onset: 3 03-23-2023 Chronic Occlusion or stenosis of precerebral arteries (20 sources) Carotid artery occlusion; Translations: [Occlusion and stenosis of unspecified carotid artery] Onset: 0 10-29-2009 Chronic Osteoarthritis (20 sources) Degenerative joint disease involving multiple joints; Translations: [Polyosteoarthritis, unspecified] 03-25-2005 Chronic Other aftercare (2 sources) long-term (current) use of insulin; Translations: [Type 2 diabetes mellitus without complication, with long-term current use of insulin (HCC)] Onset: 3 Episodic Other circulatory disease (2 sources) History of cardiomyopathy; Translations: [Personal history of other diseases of the circulatory system] 01-14-2025 Episodic Other circulatory disease (2 sources) Carotid bruit; Translations: [Other specified symptoms and signs involving the circulatory and respiratory systems] 01-15-2025 Episodic Other circulatory disease (1 source) Other specified symptoms and signs involving the circulatory and respiratory systems; Translations: [Other specified symptoms and signs involving the circulatory and respiratory systems] Onset: 5 Episodic Other ear and sense organ disorders (1 source) Hearing finding; Translations: [Other specified hearing loss, bilateral] 10-07-2023 Chronic Other ear and sense organ disorders (12 sources) Hearing loss; Translations: [Unspecified hearing loss, unspecified ear] Onset: 4 10-07-2023 Chronic Other gastrointestinal disorders (2 sources) Dysphagia; Translations: [Dysphagia, unspecified] 01-17-2025 Episodic Other inflammatory condition of skin (20 sources) Psoriasis; Translations: [Psoriasis, unspecified] Onset: 8 05-01-2018 Chronic Other lower respiratory disease (20 sources) Dyspnea; Translations: [Shortness of breath] Onset: 3 03-23-2023 Episodic Other lower respiratory disease (2 sources) Other forms of dyspnea; Translations: [Other forms of dyspnea] Onset: 3 Episodic Other lower respiratory disease (2 sources) Cough; Translations: [Cough] 11-25-2021 Episodic Other lower respiratory disease (2 sources) Cough; Translations: [Acute cough] 01-09-2025 Episodic Other lower respiratory disease (2 sources) Dyspnea, unspecified; Translations: [Dyspnea, unspecified] Onset: 5 Episodic Other lower respiratory disease (1 source) Shortness of breath; Translations: [Shortness of breath] Onset: 5 Episodic Other nervous system disorders (20 sources) Carpal tunnel syndrome; Translations: [Carpal tunnel syndrome, unspecified upper limb] Onset: 5 07-02-2005 Chronic Other nervous system disorders (5 sources) Polyneuropathy; Translations: [Other specified polyneuropathies] 03-23-2023 Chronic Other nervous system disorders (20 sources) Peripheral nerve disease ; Translations: [Polyneuropathy, unspecified] Onset: 3 03-23-2023 Chronic Other non-traumatic joint disorders (20 sources) Arthropathy of multiple joints; Translations: [Arthropathy, unspecified] Onset: 0 06-09-2020 Chronic Other non-traumatic joint disorders (4 sources) Shoulder pain; Translations: [Pain in right shoulder] 11-26-2024 Episodic Other non-traumatic joint disorders (1 source) Pain in right shoulder; Translations: [Acute pain of both shoulders] Onset: 5 Episodic Other non-traumatic joint disorders (1 source) Pain in left shoulder; Translations: [Acute pain of both shoulders] Onset: 5 Episodic Other nutritional; endocrine; and metabolic disorders (20 sources) Hypoalbuminemia; Translations: [Other disorders of plasma-protein metabolism, not elsewhere classified] Onset: 8 05-01-2018 Chronic Other nutritional; endocrine; and metabolic disorders (20 sources) Hypercalcemia; Translations: [Hypercalcemia] Onset: 0 06-09-2020 Chronic Other nutritional; endocrine; and metabolic disorders (1 source) Overweight 10-03-2020 Episodic Other nutritional; endocrine; and metabolic disorders (3 sources) H/O: diabetes mellitus; Translations: [Personal history of other endocrine, nutritional and metabolic disease] 01-14-2025 Episodic Other nutritional; endocrine; and metabolic disorders (1 source) Personal history of other endocrine, nutritional and metabolic disease; Translations: [Personal history of other endocrine, nutritional and metabolic disease] Onset: Episodic Other upper respiratory infections (1 source) Chronic sinusitis; Translations: [Chronic sinusitis, unspecified] Chronic Other upper respiratory infections (2 sources) Acute maxillary sinusitis; Translations: [Acute maxillary sinusitis, unspecified] Onset: 5 01-09-2025 Episodic Peripheral and visceral atherosclerosis (5 sources) Peripheral vascular disease, unspecified; Translations: [Peripheral vascular disease] Onset: 7 12-30-2016 Chronic Pneumonia (except that caused by tuberculosis or sexually transmitted disease) (1 source) Pneumonia 07-03-2013 Episodic Unclassified (13 sources) Cardiovascular stress test abnormal; Translations: [Patient encounter status] Onset: 7 03-23-2017 Episodic Unclassified (4 sources) Long-term drug therapy; Translations: [Other retirement (current) drug therapy] Onset: 7 12-30-2016 Unclassified (4 sources) Placement of stent in coronary artery ; Translations: [Presence of other cardiac implants and grafts] Onset: 7 12-30-2016 Unclassified (4 sources) Coronary artery bypass graft x 1; Translations: [Presence of aortocoronary bypass graft] Onset: 7 12-30-2016 Unclassified (4 sources) Percutaneous transluminal coronary angioplasty ; Translations: [Presence of coronary angioplasty implant and graft] Onset: 7 04-07-2017 Unclassified (1 source) Eye glasses, device (physical object) 07-03-2013 Unclassified (19 sources) Hearing loss; Translations: [Impaired hearing] Onset: 4 10-07-2023 Unclassified (1 source) Acute cough; Translations: [Acute cough] Onset: 5 Unclassified (1 source) Abdominal aortic aneurysm, without rupture, unspecified; Translations: [Abdominal aortic aneurysm, without rupture, unspecified] Onset: 5 Past or Other Problems Problem Classification Problem Date Documented Da te Episodic/Chronic Abdominal pain (20 sources) Generalized abdominal pain; Translations: [Generalized abdominal pain] Onset: 05-01-2018 Resolved: 06-05-2020 06-05-2020 Episodic Deficiency and other anemia (20 sources) [...] Translations: [Actinic keratosis] Onset: 08-28-2019 08-28-2019 Episodic Spondylosis; intervertebral disc disorders; other back problems (20 sources) Lumbosacral radiculopathy; Translations: [Radiculopathy, lumbosacral region] Onset: 11-24-2009 11-24-2009 Episodic Unclassified (12 sources) Edema of lower extremity; Translations: [Body mass index (BMI) 27.0-27.9, adult] Onset: 12-31-2016 02-16-2017 Episodic Unclassified (20 sources) Type 2 diabetes mellitus without complication; Translations: [Diabetes mellitus type 2, uncontrolled, without complications] Onset: 09-07-2012 Resolved: 06-05-2020 06-05-2020 Results Test Name Value Interpretation Reference Range Facility Cardiology Visit Reporton Cardiology Visit Report [facility] [address] [place] [address] OFFICE VISIT Date of Service: 01/15/25 MR#: [id number] Acct: [id number] Name: ABRAHAM GAGE Rep #: [id number] : 1940 Provider: Dr. Srini Montano MD Age/Sex: 84/M [place] [facility] [place] Status: Signed HPI HPI History of Present Illness Details: This gentleman has past medical history significant for coronary artery disease status post CABG with CASTILLO to the LAD, history of myocardial infarctions status post DAVID to the left circumflex and to the right coronary artery, hypertension and dyslipidemia. He has not been seen in our office since 2020. Here today to reestablish care. Per patient, for the last couple of weeks, he has been feeling increasingly short of breath with exertion and also when he lays down. Denies any chest pains. No palpitations. Also lower extremity edema for the last couple of weeks. According to the patient, he has been wheezing as well. He went to the emergency room couple of days ago. Initial workup was negative. Delta troponins were negative. proBNP was normal. Chest x-ray did not show any fluid volume overload. Patient has history of chronic kidney disease. His creatinine on 01/03/2025 was 2.35. Intake Vital Signs 01/12/24 07:26 01/13/25 22:13 01/15/25 13:37 Height 5 ft 8 in 5 ft 8 in 5 ft 8 in Weight: 163 lb BMI 24.7 BP 118/67 Blood Pressure Location Lt brachial Position Sitting Respiration 22 H Pulse 61 Pulse Source NIBP Oxygen Delivery Method room air Intake Visit Reasons: Shortness of breath Blogs Manager Required: No Accompanied by: Is patient in pain?: No Allergies ibuprofen Allergy (Unknown, Unverified 01/15/25 13:36) NEEDS FOLLOW-UP pravastatin Allergy (Unknown, Verified 01/15/25 13:36) NEEDS FOLLOW-UP atorvastatin (From Lipitor) Allergy (Verified 01/15/25 13:36) Unknown glucosamine Allergy (Verified 01/15/25 13:36) Unknown rosuvastatin Adverse Reaction (Unknown, Verified 01/15/25 13:36) NEEDS FOLLOW-UP Uzoizja-[id number]-[id number] Reductase Inhibitor Adverse Reaction (Unknown, Verified 01/15/25 13:36) NEEDS FOLLOW-UP Medications ???Medication ???Instructions ???Recorded ???Confirmed ???Type isosorbide mononitrate 30 mg 30 mg PO DAILY 03/29/17 01/15/25 H istory tablet,extended release 24 hr cetirizine 10 mg tablet (Zyrtec) 5 mg PO DAILY 05/08/18 01/15/25 Hi story coenzyme Q10 100 mg capsule 200 mg PO DAILY 05/08/18 01/15/25 History (CoQ-10) insulin glargine 100 unit/mL 10 unit subcut QHS 05/08/18 History subcutaneous solution (Lantus U-100 Insulin) allopurinol 100 mg tablet 100 mg PO DAILY 06/21/19 01/15/25 History cholecalciferol (vitamin D3) 125 5,000 unit PO DAILY 06/21/1901/15 History mcg (5,000 unit) capsule losartan 50 mg tablet 25 mg PO DAILY 06/21/19 01/15/25 H istory clopidogrel 75 mg tablet 75 mg PO DAILY #90 tabs 08/19/20 0 01/15/25 Rx cyanocobalamin (vitamin B-12) 5,000 mcg PO DAILY 01/13/25 History 5,000 mcg capsule ferrous sulfate, dried 159 mg (45 159 mg PO DAILY 01/13/25 01/15/25 History mg iron) tablet,extended release (iron ER) zinc 50 mg tablet 50 mg PO DAILY 01/13/25 01/15/25 H istory amlodipine 10 mg tablet 10 mg PO QPM 01/14/25 01/15/25 His tory calcium 600 mg (as carbonate)-vit 1 tab PO QDAY 01/14/25 01/15/25 H istory D3 20 mcg (800 unit) chewable tablet (Caltrate plus D) carvedilol 25 mg tablet 25 mg PO BID 01/14/25 01/15/25 His tory diclofenac sodium 1 % topical gel 2 g topical 4X/DAY PRN 01/14/25 0 01/15/25 History (Arthritis Pain (diclofenac)) flax seed oil PO DAILY 01/14/25 01/15/25 History furosemide 40 mg tablet 40 mg PO .COMPLEX PRN edema 01/15/25 History hydrocodone-acetaminophen 5-325mg 1 tab PO PRN pain 01/14/25 History 5mg-325mg hydrocortisone 2.5 % topical cream 1 applic topical BID PRN 5 01/15/25 History potassium chloride 10 mEq 10 meq PO QDAY 01/14/25 01/15/25 H istory capsule,extended release Ejection fraction %: 55 Have you fallen in the past year?: Yes (single episode; no major injury) [facility] Medical History Abdominal aneurysm without mention of rupture Abdominal aortic aneurysm without rupture Acute gastritis without mention of hemorrhage Acute myocardial infarction Atherosclerosis of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[place] heart without angina pectoris Carotid artery stenosis Carotid atherosclerosis Chronic kidney disease, stage 3 CKD stage 3b, 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 Normal [facility] Comprehensive Metabolic Prof ilon 01-15-2025 Albumin [Mass/Vol] 4.1 g/dL Normal 3.4-4.8 [facility] Comment on above: Performed By: #### L 500.4050, L503.7505, L500.4100 #### [facility] [address] [place], [address] Albumin/Globulin [Mass ratio] 1.4 {ratio} Normal 0.9-2.4 [facility] Comment on above: Performed By: #### L 500.4050, L503.7505, L500.4100 #### [facility] [address] [place], [address] ALK PHOS 119 U/L Normal 40-129 [facility] Comment on above: Performed By: #### L 500.4050, [id number], L500.4100 #### [facility] [address] [place], [address] ALT [Catalytic activity/Vol] 9 U/L Normal <=46 [facility] Comment on above: Performed By: #### L 500.4050, [id number], L500.4100 #### [facility] [address] [place], [address] AST [Catalytic activity/Vol] 15 U/L Normal <=37 [facility] Comment on above: Performed By: #### L 500.4050, [id number], L500.4100 #### [facility] [address] [place], [address] Bilirubin [Mass/Vol] 0.16 mg/dL Normal 0.00-1.30 [facility] Comment on above: Performed By: #### L 500.4050, [id number], L500.4100 #### [facility] [address] [place], [address] BUN/CRE 16.1 RATIO Normal 10-20 [facility] Comment on above: Performed By: #### L 500.4050, [id number], L500.4100 #### [facility] [address] [place], [address] Calcium [Mass/Vol] 9.7 mg/dL Normal 7.6-11.0 [facility] Comment on above: Performed By: #### L 500.4050, [id number], L500.4100 #### [facility] [address] [place], [address] Chloride [Moles/Vol] 101 mmol/L Normal 98-108 [facility] Comment on above: Performed By: #### L 500.4050, L503.7505, L500.4100 #### [facility] [address] [place], [address] CO2 [Moles/Vol] 28.6 mmol/L Normal 21.0-32.0 [facility] Comment on above: Performed By: #### L 500.4050, L503.7505, L500.4100 #### [facility] [address] [place], [address] Creatinine [Mass/Vol] 2.08 mg/dL High 0.70-1.20 [facility] Comment on above: Performed By: #### L 500.4050, L503.7505, L500.4100 #### [facility] [address] [place], [address] GAP 12 Normal 5-15 [facility] Comment on above: Performed By: #### L 500.4050, L503.7505, L500.4100 #### [facility] [address] [place], [address] GFR/1.73 sq M.predicted among non-blacks MDRD (S/P/Bld) [Vol rate/Area] 31 mL/min/{1.73_m2} Low >60 [facility] Comment on above: Result Comment: mL/m in/1.73m2 CKD-EPI Creatinine Equation (2020) Performed By: #### L 500.4050, L503.7505, L500.4100 #### [facility] [address] [place], [address] Globulin (S) [Mass/Vol] 3.0 g/dL Normal 2.2-4.2 [facility] Comment on above: Performed By: #### L 500.4050, L503.7505, L500.4100 #### [facility] [address] [place], [address] Glucose [Mass/Vol] 123 mg/dL High 70-99 [facility] Comment on above: Performed By: #### L 500.4050, L503.7505, L500.4100 #### [facility] [address] [place], [address] Potassium [Moles/Vol] 4.5 mmol/L Normal 3.3-5.1 [facility] Comment on above: Performed By: #### L 500.4050, L503.7505, L500.4100 #### [facility] [address] [place], [address] Sodium [Moles/Vol] 142 mmol/L Normal 133-145 [facility] Comment on above: Performed By: #### L 500.4050, L503.7505, L500.4100 #### [facility] [address] [place], [address] T PROT 7.1 g/dL Normal 5.9-8.4 [facility] Comment on above: Performed By: #### L 500.4050, L503.7505, L500.4100 #### [facility] [address] [place], [address] Urea nitrogen [Mass/Vol] 33 mg/dL High 4-19 [facility] Comment on above: Performed By: #### L 500.4050, L503.7505, L500.4100 #### [facility] [address] [place], [address] L503.7505on 01-15-2025 Natriuretic peptide B (Bld) [Mass/Vol] 163 pg/mL Normal <=1800 [facility] Comment on above: Result Comment: Hear t Failure Unlikely: < 300 pg/mL Heart Failure Likely < 50 Years: > 450 pg/mL 50-75 Years: > 900 pg/mL >75 Years: > 1800 pg/mL Performed By: #### L 500.4050, L503.7505, L500.4100 #### [facility] [address] [place], [address] Lipid Profileon 01-15-2025 CHOL:HDL 5.99 Normal [facility] Comment on above: Performed By: #### L 500.4050, L503.7505, L500.4100 #### [facility] [address] [place], [address] Cholesterol [Mass/Vol] 205 mg/dL High <=200 [facility] Comment on above: Result Comment: Chol esterol level, Desirable <200 mg/dL Borderline high cholesterol 200-239 mg/dL High cholesterol >=240 mg/dL Recommendations of the NCEP Adult Treatment Panel for the following risk-cutoff thresholds for the [place] population. Performed By: #### L 500.4050, L503.7505, L500.4100 #### [facility] [address] [place], [address] Cholesterol in HDL [Mass/Vol] 34 mg/dL Low [facility] Comment on above: Result Comment: Ryann onal Cholesterol Education Program (NCEP) guidelines: <40 mg/dL: Low HDL-cholesterol (major risk factor for CHD) >= 60 mg/dL: High HDL-cholesterol (negative risk factor for CHD) HDL-cholesterol is affected by a number of factors, e.g. smoking, exercise, hormones, sex and age. Performed By: #### L 500.4050, L503.7505, L500.4100 #### [facility] [address] [place], [address] Cholesterol in LDL [Mass/Vol] 131 mg/dL Normal [facility] Comment on above: Result Comment: Bord lmhflc=435-415 mg/dL Higher Uljj=787 mg/dL or greater Performed By: #### L 500.4050, L503.7505, L500.4100 #### [facility] [address] [place], [address] Cholesterol in VLDL [Mass/Vol] 39 mg/dL Normal 5-40 [facility] Comment on above: Performed By: #### L 500.4050, L503.7505, L500.4100 #### [facility] [address] [place], [address] Triglyceride [Mass/Vol] 197 mg/dL Normal [facility] Comment on above: Result Comment: The drugs N-Acetylcysteine and Metamizole may falsely depress this assay. Normal range: <150 mg/dL Borderline High: 150-199 mg/dL High: 200-499 mg/dL Very High: >500 mg/dL Performed By: #### L 500.4050, L503.7505, L500.4100 #### [facility] [address] [place], [address] Basic Metabolic Profile (BMP )on 01-14-2025 BUN/CRE 17.7 RATIO Normal 10-20 [facility] Comment on above: Performed By: #### L 501.4021, L500.2500, L503.7505, L100.0100 #### [facility] [address] [place], [address] Calcium [Mass/Vol] 9.3 mg/dL Normal 7.6-11.0 [facility] Comment on above: Performed By: #### L 501.4021, L500.2500, L503.7505, L100.0100 #### [facility] [address] [place], [address] Chloride [Moles/Vol] 98 mmol/L Normal 98-108 [facility] Comment on above: Performed By: #### L 501.4021, L500.2500, L503.7505, L100.0100 #### [facility] [address] [place], [address] CO2 [Moles/Vol] 26.5 mmol/L Normal 21.0-32.0 [facility] Comment on above: Performed By: #### L 501.4021, L500.2500, L503.7505, L100.0100 #### [facility] [address] [place], [address] Creatinine [Mass/Vol] 2.35 mg/dL High 0.70-1.20 [facility] Comment on above: Performed By: #### L 501.4021, L500.2500, L503.7505, L100.0100 #### [facility] [address] [place], [address] ECRCL 23.04 ml/min Low 50-250 [facility] Comment on above: Performed By: #### L 501.4021, L500.2500, L503.7505, L100.0100 #### [facility] [address] [place], [address] GAP 14 Normal 5-15 [facility] Comment on above: Performed By: #### L 501.4021, L500.2500, L503.7505, L100.0100 #### [facility] [address] [place], [address] GFR/1.73 sq M.predicted among non-blacks MDRD (S/P/Bld) [Vol rate/Area] 27 mL/min/{1.73_m2} Low >60 [facility] Comment on above: Result Comment: mL/m in/1.73m2 CKD-EPI Creatinine Equation (2020) Performed By: #### L 501.4021, L500.2500, L503.7505, L100.0100 #### [facility] [address] [place], [address] Glucose [Mass/Vol] 167 mg/dL High 70-99 [facility] Comment on above: Performed By: #### L 501.4021, L500.2500, L503.7505, L100.0100 #### [facility] [address] [place], [address] Potassium [Moles/Vol] 4.4 mmol/L Normal 3.3-5.1 [facility] Comment on above: Result Comment: Hemo lysis present, Results??could be affected. ?? Performed By: #### L 501.4021, L500.2500, L503.7505, L100.0100 #### [facility] [address] [place], [address] Sodium [Moles/Vol] 139 mmol/L Normal 133-145 [facility] Comment on above: Performed By: #### L 501.4021, L500.2500, L503.7505, L100.0100 #### [facility] [address] [place], [address] Urea nitrogen [Mass/Vol] 42 mg/dL High 4-19 [facility] Comment on above: Performed By: #### L 501.4021, L500.2500, L503.7505, L100.0100 #### [facility] [address] [place], [address] L499.0042on 01-14-2025 Trop T High Sen 52 ng/L High <=22 [facility] Comment on above: Result Comment: Crit ical Result(s) Called at:0151 by: CARMELITA HAVEN TO ANDERSON OWENS??Results read back by same. Performed By: #### L 499.0042 #### [facility] [address] [place], [address] L501.4021on 01-14-2025 Trop T High Sen 53 ng/L High <=22 [facility] Comment on above: Result Comment: Crit ical Result(s) Called at: 0011 by: CARMELITA HAVEN TO ANDERSON OWENS??Results read back by same. Performed By: #### L 501.4021, L500.2500, L503.7505, L100.0100 ####[facility] [address] [place], [address] L503.7505on 01-14-2025 Natriuretic peptide B (Bld) [Mass/Vol] 235 pg/mL Normal <=1800 [facility] Comment on above: Result Comment: Hear t Failure Unlikely: < 300 pg/mL Heart Failure Likely < 50 Years: > 450 pg/mL 50-75 Years: > 900 pg/mL >75 Years: > 1800 pg/mL Performed By: #### L 501.4021, L500.2500, L503.7505, L100.0100 ####[facility] [address] [place], [address] Troponin T.cardiac [Mass/vol ume] in Serum or Plasma by High sensitivity methodOrdered By: Adam Mon on 01-14-2025 Troponin T.cardiac High sensitivity method [Mass/Vol] 52 ng/L High <22 [facility] Comment on above: Critical Result(s) C alled at:0151 by: CARMELITA RUBIO TO ANDERSON OWENS Results read back by same. 12 Lead EKGon 01-13-2025 12 Lead EKG [facility] [address] [place] [address] 12 Lead EKG 01/13/25 2227 MR#: [id number] Acct: [id number] Name: ABRAHAM AGGE Rep #: [id number] : 1940 84 From: Wojciech López MD Attending Dr: Status: DEP ER Ordering Dr: Adam Mon MD Date: 01/13/25 Location: ED Sex: M C Admitted: Test Reason : DYSRHYTHMIA Blood Pressure : */* mmHG Vent. Rate : 61 BPM Atrial Rate : 61 BPM P-R Int : 148 ms QRS Dur : 88 ms QT Int : 412 ms P-R-T Axes : 65 27 79 degrees QTcB Int : 414 ms Normal sinus rhythm Possible Inferior infarct , age undetermined Abnormal ECG Confirmed by WOJCIECH LÓPEZ MD ([id number]), content editor PAO MERAZ ([id number]) on 01/15/2025 7:38:04 AM Referred By: RUTH ANN Confirmed By: WOJCIECH LÓPEZ MD 01/15/25 0738 Date Wojciech López MD CC: Dr. Adam Mon MD; Dr. Samson Ragsdale DO Signed Normal [facility] Absolute lymphocyte countOrd ered By: Adam Mon on 01-13-2025 Lymphocytes Auto (Unsp spec) [#/Vol] 1.99 10*3/uL 0.83-4.51 [facility] Absolute neutrophil countOrd ered By: Adam Mon on 01-13-2025 Neutrophils (Bld) [#/Vol] 7.5 10*3/uL 2.0-7.7 [facility] Anion gap in Serum or Plasma Ordered By: Adam Mon on 01-13-2025 Anion gap [Moles/Vol] 14 mmol/L 12-13 [facility] Automated lymphocyte count a s percentage of total leukocytesOrdered By: Adam Mon on 01-13-2025 Lymphocytes/100 WBC Auto (Unsp spec) 18.6 % Low - [facility] BUN/creatinine ratioOrdered By: Adam Mon on 01-13-2025 Urea nitrogen/Creatinine [Mass ratio] 17.7 mg/mg 05-20 [facility] Basophil percentageOrdered B y: Adam Mon on 01-13-2025 Basophils/100 WBC (Bld) 0.4 % 0- [facility] CBC W/Diff, Automatedon 12-30 Absolute Lymph 1.99 X10 3/uL Normal 0.83-4.51 [facility] Comment on above: Performed By: #### L 501.4021, L500.2500, L503.7505, L100.0100 #### [facility] [address] [place], [address] Absolute Neut 7.5 X10 3/uL Normal 2.0-7.7 [facility] Comment on above: Performed By: #### L 501.4021, L500.2500, L503.7505, L100.0100 #### [facility] [address] [place], [address] Basophils/100 WBC (Bld) 0.4 % Normal 0-1 [facility] Comment on above: Performed By: #### L 501.4021, L500.2500, L503.7505, L100.0100 #### [facility] [address] [place], [address] Eosinophils/100 WBC (Bld) 2.5 % Normal 0-5 [facility] Comment on above: Performed By: #### L 501.4021, L500.2500, L503.7505, L100.0100 #### [facility] [address] [place], [address] Erythrocyte distribution width (RBC) [Ratio] 13.9 % Normal 11.6-14.6 [facility] Comment on above: Performed By: #### L 501.4021, L500.2500, L503.7505, L100.0100 #### [facility] [address] [place], [address] Hematocrit (Bld) [Volume fraction] 36.9 % Low 40-54 [facility] Comment on above: Performed By: #### L 501.4021, L500.2500, L503.7505, L100.0100 #### [facility] [address] [place], [address] Hemoglobin (Bld) [Mass/Vol] 11.8 g/dL Low 13.0-16.5 [facility] Comment on above: Performed By: #### L 501.4021, L500.2500, L503.7505, L100.0100 #### [facility] [address] [place], [address] IG% 0.300 Normal 0.0-0.9 [facility] Comment on above: Result Comment: IG% - Immature Granulocytes (promyelocytes, myelocytes and metamyelocytes) > 1% indicates that a LEFT SHIFT is Present. Performed By: #### L 501.4021, L500.2500, L503.7505, L100.0100 #### [facility] [address] [place], [address] Lymphocytes/100 WBC (Bld) 18.6 % Low 19-41 [facility] Comment on above: Performed By: #### L 501.4021, L500.2500, L503.7505, L100.0100 #### [facility] [address] [place], [address] MCH (RBC) [Entitic mass] 27.7 pg Normal 27.0-32.0 [facility] Comment on above: Performed By: #### L 501.4021, L500.2500, L503.7505, L100.0100 #### [facility] [address] [place], [address] MCHC (RBC) [Mass/Vol] 32.0 g/dL Normal 32-36 [facility] Comment on above: Performed By: #### L 501.4021, L500.2500, L503.7505, L100.0100 #### [facility] [address] [place], [address] MCV (RBC) [Entitic vol] 86.6 fL Normal 80-94 [facility] Comment on above: Performed By: #### L 501.4021, L500.2500, L503.7505, L100.0100 #### [facility] [address] [place], [address] Monocytes/100 WBC (Bld) 8.2 % Normal 0-10 [facility] Comment on above: Performed By: #### L 501.4021, L500.2500, L503.7505, L100.0100 #### [facility] [address] [place], [address] Neutrophils/100 WBC (Bld) 70.0 % Normal 47-70 [facility] Comment on above: Performed By: #### L 501.4021, L500.2500, L503.7505, L100.0100 #### [facility] [address] [place], [address] Nucleated RBC (Bld) [#/Vol] 0 10*3/uL Normal 0-5 [facility] Comment on above: Performed By: #### L 501.4021, L500.2500, L503.7505, L100.0100 #### [facility] [address] [place], [address] Platelet mean volume (Bld) [Entitic vol] 10.4 fL Normal 6.2-12.0 [facility] Comment on above: Performed By: #### L 501.4021, L500.2500, L503.7505, L100.0100 #### [facility] [address] [place], [address] Platelets (Bld) [#/Vol] 326 10*3/uL Normal 150-450 [facility] Comment on above: Performed By: #### L 501.4021, L500.2500, L503.7505, L100.0100 #### [facility] [address] [place], [address] RBC (Bld) [#/Vol] 4.26 10*6/uL Low 4.6-6.2 [facility] Comment on above: Performed By: #### L 501.4021, L500.2500, L503.7505, L100.0100 #### [facility] [address] [place], [address] RDW SD 44.2 fl High 35.1-43.9 [facility] Comment on above: Performed By: #### L 501.4021, L500.2500, L503.7505, L100.0100 #### [facility] [address] [place], [address] WBC (Bld) [#/Vol] 10.7 10*3/uL Normal 4.4-11.0 [facility] Comment on above: Performed By: #### L 501.4021, L500.2500, L503.7505, L100.0100 #### [facility] [address] [place], [address] Carbon dioxide, total [Moles /volume] in Central venous bloodOrdered By: Adam Mon on 01-13-2025 CO2 [Moles/Vol] 26.5 mmol/L 21.0-32.0 [facility] Chest PA and Lateralon 01-13 Chest PA and Lateral [facility] [address] [place] [address] Chest PA and Lateral MR#: [id number] Acct: [id number] Name: ABRAHAM GAGE Rep #: [id number] : 1940 M 84 From: Melchor Delarosa PCP: Dr. Samson Ragsdale DO Status: REG ER Study: Chest PA and Lateral Date of Exam: 01/13/25 Exam# [id number] Ordering Dr: Adam Mon MD PROCEDURE: CHEST PA AND LATERAL 01/13/2025 REASON FOR EXAM: CHEST PAIN TECHNIQUE: CHEST PA AND LATERAL COMPARISON: none FINDINGS: Median sternotomy wires. Aortic arch calcification. Left base subsegmental atelectasis. No focal consolidations. No pleural effusion or pneumothorax. RAD/Chest PA and Lateral IMPRESSION: No focal consolidations. No pleural effusion or pneumothorax. Left base subsegmental atelectasis. Reading Location: [id number] CC: Dr. Adam Mon MD; Dr. Samson Ragsdale DO Md Psychiatry: Signed Normal [facility] Chloride assayOrdered By: Pepe Mon on 01-13-2025 Chloride [Moles/Vol] 98 mmol/L 98-108 [facility] Emergency Department Summary on 01-13-2025 Emergency Department Summary [facility] Medical Records Department [address] [place] [address] Emergency Department Summary 01/13/25 MR#: [id number] Acct: [id number] Name: ABRAHAM GAGE Rep #: [id number] : 1940 84 From: Adam Mon MD PCP: Dr. Samson Ragsdale DO Status:REG ER Location: ED HPI History of Present Illness Chief Complaint: Shortness of Breath Informant: patient Onset/Context/Timing Onset: Weeks (The last week.) Context: gradual Timing: Intermittent Quality: Positive for Orthopnea Current Severity: Mild Maximum Severity: Mild Worsened by: Lying flat Relieved by: other (Upright it resolves.) Associated Symptoms Negative for cough Chest Pain: Positive for None Narrative Narrative: 84-year-old male history of [place], hypertension, diabetes, ischemic cardiomyopathy and prior prostate cancer prostatectomy. No metastasis. States the last week he has been short of breath for 7 to 10 days. Primarily when he is supine. Better upright. Better walking. No prior history. Denies chest pain. Denies fever or cough. States he does have leg swelling is slightly worse. PE Risk Factors: Negative for OCP + Smoking + > 35, Prior DVT or PE, Recent immobilization, Recent surgery or Recent travel Prior similar symptoms: Yes Recent Illness/Hospitalization: No PFSH PFSH Medical History (Updated 01/14/25 @ 02:[address] Adam Mon MD) GI bleed due to NSAIDs Carotid artery stenosis Abdominal aortic aneurysm without rupture Ischemic cardiomyopathy Prostate cancer PVD (peripheral vascular disease) Atherosclerosis of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[place] heart without angina pectoris Complete heart block ST elevation [place] (STEMI) Chronic kidney disease, stage 3 Hyperlipidemia Hypertension Home Medications ???Medication ???Instructions ???Recorded ???Last Taken ???Type calcium carbonate 1 tab PO DAILY 03/29/17 Unknown Hi story isosorbide mononitrate 30 mg 30 mg PO DAILY 03/29/17 03/30/17 H istory tablet,extended release 24 hr cetirizine 10 mg tablet (Zyrtec) 5 mg PO DAILY 05/08/18 Unknown His tory coenzyme Q10 100 mg capsule 200 mg PO DAILY 05/08/18 Unknown H istory (CoQ-10) insulin glargine 100 unit/mL 10 unit subcut QHS 05/08/18 Unknow n History subcutaneous solution (Lantus U-100 Insulin) B-complex with vitamin C 1 cap PO DAILY 11/23/18 Unknown Hi story magnesium oxide 400 mg (241.3 mg 500 mg PO DAILY 11/23/18 Unknown H istory magnesium) tablet turmeric root extract 500 mg 1,400 mg PO DAILY 11/23/18 Unknown History capsule allopurinol 100 mg tablet 100 mg PO DAILY 06/21/19 Unknown H istory cholecalciferol (vitamin D3) 125 5,000 unit PO DAILY 06/21/19 Unkno wn History mcg (5,000 unit) capsule losartan 50 mg tablet 25 mg PO DAILY 06/21/19 Unknown Hi story famotidine 20 mg tablet 20 mg PO QHS PRN 02/07/20 Unknown History furosemide 40 mg tablet 40 mg PO .COMPLEX PRN edema Unknown History clopidogrel 75 mg tablet 75 mg PO DAILY #90 tabs 08/19/20 U nknown Rx carvedilol 12.5 mg tablet 25 mg PO DAILY 04/21/21 Unknown Hi story oxycodone-acetaminophen 5 mg-325 1 tab PO Q6H PRN PRN Pain 3 days 0 01/12/24 Unknown Rx mg tablet #12 TABLETS amlodipine 5 mg tablet 10 mg PO DAILY 01/13/25 Unknown Hi story cyanocobalamin (vitamin B-12) 5,000 mcg PO DAILY 01/13/25 Unknow n History 5,000 mcg capsule ferrous sulfate, dried 159 mg (45 159 mg PO DAILY 01/13/25 Unknown History mg iron) tablet,extended release (iron ER) zinc 50 mg tablet 50 mg PO DAILY 01/13/25 Unknown Hi story Allergy/AdvReac Type Severity Reaction Status Date / Time atorvastatin (From Lipitor) Allergy Unknown Verified 01/13/25 22:13 glucosamine Allergy Unknown Verified 01/13/25 22:13 Family History Father Arthritis Mother Hypertension Grandmother Diabetes Surgical History History of prostatectomy History of right-sided carotid endarterectomy History of coronary artery stent placement H/O coronary artery bypass surgery ( 1994) Social History Smoking Status: Former smoker how long ago did patient quit smokin+years ago alcohol intake: current alcohol intake frequency: holidays/special occasions only substance use type: does not use caffeine: Yes Type: coffee and tea ROS ROS ED ROS Narrative Positional shortness of breath primarily supine. No chest pain. No fever. No new cough. Constitutional Constitutional ED: Denies chills or fever(s) Eyes Eyes: Denies blurry vision ENT ENT ED: Denies ear pain Cardiovascular Cardiovascular: Reports orthopnea; Denies chest pain or palpitations Respiratory/Chest Respiratory/Chest: Reports (more content not included)... Normal [facility] Eosinophil percentageOrdered By: Adam Mon on 01-13-2025 Eosinophils/100 WBC (Bld) 2.5 % 0-5 [facility] Erythrocyte distribution wid th ratioOrdered By: Adam Mon on 01-13-2025 Erythrocyte distribution width (RBC) [Ratio] 13.9 % 11.6-14.6 [facility] Erythrocyte distribution wid th standard deviationOrdered By: Adam Mon on 01-13-2025 Erythrocyte distribution width (RBC) [Ratio] 44.2 fl High 35.1-43.9 [facility] Glomerular filtration rate ( GFR) estimation/1.73 sq m using serum, plasma, or whole bOrdered By: Adam Mon on 01-13-2025 GFR/1.73 sq M.predicted among non-blacks MDRD (S/P/Bld) [Vol rate/Area] 27 mL/min/{1.73_m2} Low >60 [facility] Comment on above: mL/min/1.73m2 CKD-EP I Creatinine Equation (2020) Hematocrit Auto (Bld) [Volum e fraction]Ordered By: Adam Mon on 01-13-2025 Hematocrit (Bld) [Volume fraction] 36.9 % Low 40-54 [facility] Hemoglobin measurementOrdere d By: Adam Mon on 01-13-2025 Hemoglobin (Bld) [Mass/Vol] 11.8 g/dL Low 13.0-16.5 [facility] Immature granulocytes/100 WB C Auto (Bld)Ordered By: Adam Mon on 01-13-2025 Immature granulocytes/100 WBC (Bld) 0.300 % 0.0-0.9 [facility] Comment on above: IG% - Immature Granu locytes (promyelocytes, myelocytes and metamyelocytes) > 1% indicates that a LEFT SHIFT is Present. MCV (mean corpuscular volume ) determinationOrdered By: Adam Mon on 01-13-2025 MCV (RBC) [Entitic vol] 86.6 fL 80-94 [facility] Mean corpuscular hemoglobin (MCH) determinationOrdered By: Adam Mon on 01-13-2025 MCH (RBC) [Entitic mass] 27.7 pg 27.0-32.0 [facility] Mean corpuscular hemoglobin concentration (MCHC) determinationOrdered By: Adam Mon on 01-13-2025 MCHC (RBC) [Mass/Vol] 32.0 g/dL 32-36 [facility] Mean platelet volume determi nationOrdered By: Adam Mon on 01-13-2025 Platelet mean volume (Bld) [Entitic vol] 10.4 fL 6.2-12.0 [facility] Monocyte percentageOrdered B y: Adam Mon on 01-13-2025 Monocytes/100 WBC (Bld) 8.2 % 0-10 [facility] Natriuretic peptide.B prohor natanael N-Terminal [Mass/volume] in Serum or PlasmaOrdered By: Adam Mon on 01-13-2025 Natriuretic peptide.B prohormone N-Terminal [Mass/Vol] 235 pg/mL <1800 [facility] Comment on above: Heart Failure Unlike ly: < 300 pg/mLHeart Failure Likely< 50 Years: > 450 pg/mL50-75 Years: > 900 pg/mL>75 Years: > 1800 pg/mL Neutrophil percentageOrdered By: Adam Mon on 01-13-2025 Neutrophils/100 WBC (Bld) 70.0 % 47-70 [facility] Nucleated red blood cell per centageOrdered By: Adam Mon on 01-13-2025 Nucleated RBC/100 WBC (Bld) [Ratio] 0 % 0-5 [facility] Platelet countOrdered By: Pepe Mon on 01-13-2025 Platelets (Bld) [#/Vol] 326 10*3/uL 150-450 [facility] Potassium measurement (mass/ volume)Ordered By: Adam Mon on 01-13-2025 Potassium (Unsp spec) [Mass/Vol] 4.4 mmol/L 3.3-5.1 [facility] Comment on above: Hemolysis present, R esults could be affected. RBC Auto (Bld) [#/Vol]Ordere d By: Adam Mon on 01-13-2025 RBC (Bld) [#/Vol] 4.26 10*6/uL Low 4.6-6.2 [facility] Serum creatinine measurement (mass/volume)Ordered By: Adam Mon on 01-13-2025 Creatinine [Mass/Vol] 2.35 mg/dL High 0.70-1.20 [facility] Serum glucose measurement (m ass/volume)Ordered By: Adam Mon on 01-13-2025 Glucose [Mass/Vol] 167 mg/dL High 70-99 [facility] Serum or plasma calcium waldemar urement (mass/volume)Ordered By: Adam Mon on 01-13-2025 Calcium [Mass/Vol] 9.3 mg/dL 7.6-11.0 [facility] Serum or plasma urea nitroge n measurement (mass/volume)Ordered By: Adam Mon on 01-13-2025 Urea nitrogen [Mass/Vol] 42 mg/dL High 4-19 [facility] Sodium levelOrdered By: Adam Mon on 01-13-2025 Sodium [Moles/Vol] 139 mmol/L 133-145 [facility] Troponin T.cardiac [Mass/vol ume] in Serum or Plasma by High sensitivity methodOrdered By: Adam Mon on 01-13-2025 Troponin T.cardiac High sensitivity method [Mass/Vol] 53 ng/L High <22 [facility] Comment on above: Critical Result(s) C alled at: 0011 by: CARMELITA RUBIO TO ANDERSON OWENS Results read back by same. White blood cell (WBC) count Ordered By: Adam Mon on 01-13-2025 WBC (Bld) [#/Vol] 10.7 10*3/uL 4.4-11.0 [facility] CNOVon 01-09-2025 CNOV Office Visit (UCWSTR ) -- ABRAHAM GAGE ([id number]) 1940 M Date Time Provider Department 01/09/25 2:15 PM KHLOE IBARRA [facility] During your visit today, we recorded the following information about you: Temperature Pulse Respiration Blood pressure 97.2 degrees 64/minute 18/minute 132/72 Weight 74.8 kg Khloe Ibarra, MICHI.[facility] 01/09/2025 4:53 PM Signed [facility] Subjective Abraham Gage is a [...] history started 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 Mild lower leg swelling but denies that [...] GRAFT 1 VEIN 1994 CABG, single graft, Sridhar Harris CORONARY ENDARTERCOMY OPEN ANY METHOD 07/03/2013 Angioplasty Xience stent to L circumflex EGD 04/26/2017 [facility] [address] Nolan Triana EGD 05/23/2024 EGD TRANSORAL BIOPSY SINGLE/MULTIPLE 07/10/2007 PAST SURGICAL HISTORY OF 01/26/2008 stent placement ramus and prox ramus PAST SURGICAL HISTORY OF heart stents PROSTATECTOMY PERINEAL RADICAL 2000 Prostatectomy, radical- Dr. 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 Yousif Triana; next screening colonoscopy in 10yrs, [facility] UNLISTED DIAGNOSTIC GASTROENTEROLOGY PROCEDURE 06/06/2018 ALLERGIES Atorvastatin, Crestor [Rosuvastatin Calcium], Glucosamine, Motrin [Ibuprofen], Pravastatin, and Qqacyro-Baf-Eaf Reductase Inhibitors MEDICATIONS zinc sulfate (ZINC-15 ORAL) [...] 10 Units subcutaneously daily at bedtime. Insulin [place], Disposable, (BD ULTRA-FINE BENNY PEN NEEDLE) 32 [...] once daily. (more content not included)... [facility] XR CHEST 2V FRONTAL/LATon XR CHEST [...] post median sternotomy. IMPRESSION: Left basilar atelectasis/scarring. Md Psychiatry: JASON Transcribe Date/Time: Jan 09 2025 2:43P Dictated by : ZOE AKBAR MD This examination was interpreted and the report reviewed and electronically signed by: ZOE AKBAR MD on Jan 09 2025 2:46PM EST [id number] Normal [facility] XR Chest PA and Lateralon IMPRESSION: Left basilar atelectasis/scarring. Md Psychiatry: JASON Transcribe Date/Time: Jan 09 2025 2:43P [...] post median sternotomy. DIVISION OF RADIOLOGY Provider, [facility] - 01/09/2025 * * *Final Report* * [...] median sternotomy. IMPRESSION IMPRESSION: Left basilar atelectasis/scarring. Md Psychiatry: JASON Transcribe Date/Time: Jan 09 2025 2:43P Dictated by : ZOE AKBAR MD This examination was interpreted and the report reviewed and electronically signed by: ZOE AKBAR MD on Jan 09 2025 2:46PM EST [facility] Radiology Study observation (narrative) [facility] XR Chest PA and LateralOrder ed By: Ccf Provider on 01-09-2025 [facility] CNOVon 11-26-2024 CNOV Office Visit (INTMWS ) -- ABRAHAM GAGE ([id number]) 1940 M Date Time Provider Department 11/26/24 3:00 PM THEODORA HERNANDEZ [facility] During your visit today, we recorded the following information about you: Pulse Blood pressure Weight 62/minute 120/60 76.7 kg Theodora Hernandez, SURGEON'S ASSISTANT.BATTERY CONTAINER TESTER ALUMINUM 11/26/2024 3:27 PM Addendum We discussed your [...] heat or ice on the affected area. Kbel-yph-qpjqjmc options like Icy Hot or Biofreeze may [...] prednisone and hydrocodone have been sent to [facility] in [place]. Please let us know if you have any questions or concerns. Theodora Hernandez, SURGEON'S ASSISTANT.BATTERY CONTAINER TESTER ALUMINUM 11/26/2024 3:43 PM Signed CC: Patient presents with: Pain: in right shoulder for about 6 weeks denies any injury HPI Recording using [employer] software for draft documentation of the visit was discussed with the patient/authorized patient relations representative; all questions welcomed and answered. 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 [facility] XR SHLDR >/=3V AP/MACY AP/OTH R [...] Mild degenerative changes. No acute osseous abnormality. Md Psychiatry: JASON Transcribe Date/Time: Nov 28 2024 7:38A Dictated by : WILLEM GUERRERO MD This examination was interpreted and the report reviewed and electronically signed by: WILLEM GUERRERO MD on Nov 28 2024 7:39AM EST [id number] Normal [facility] XR SHLDR >/=3V AP/MACY AP/OTH R [...] Mild degenerative changes. No acute osseous abnormality. Md Psychiatry: [facility] Transcribe Date/Time: Nov 28 2024 7:38A Dictated by : WILLEM GUERRERO MD This examination was interpreted and the report reviewed and electronically signed by: WILLEM GUERRERO MD on Nov 28 2024 7:39AM EST [id number] Normal [facility] XR THORACIC 3V AP/LAT/SWIMME RSon 11-26-2024 [...] endplate osteophytes IMPRESSION: 1. 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 Nolan Triana EGD 05/23/2024 EGD TRANSORAL BIOPSY SINGLE/MULTIPLE 07/10/2007 PAST SURGICAL HISTORY OF 01/26/2008 stent placement ramus and prox ramus PAST SURGICAL HISTORY OF heart stents PROSTATECTOMY PERINEAL RADICAL 1999 Prostatectomy, radical- Dr. 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 Yousif Triana; next screening colonoscopy in 10yrs, [facility] UNLISTED DIAGNOSTIC GASTROENTEROLOGY PROCEDURE 06/06/2018 Social History Tobacco Use Smoking status: Former Current packs/day: 2.00 Average packs/day: 2.0 packs/day for 20.0 years (40.0 ttl pk-yrs) Types: Cigarette (more content not included)... [facility] CBC W Auto Differential pane l (Bld)on 09-17-2024 Basophils (Bld) [#/Vol] 0.04 10*3/uL [facility] Basophils/100 WBC (Bld) 0.3 % [facility] Differential cell count method Nom (Bld) Auto [facility] Eosinophils (Bld) [#/Vol] 0.11 10*3/uL [facility] Eosinophils/100 WBC (Bld) 0.9 % [facility] Erythrocyte distribution width (RBC) [Ratio] 15.9 % High 11.5 - 15.0 % [facility] Hematocrit (Bld) [Volume fraction] 42 % 39.0 - 51.0 % [facility] Hemoglobin (Bld) [Mass/Vol] 13.2 g/dL 13.0 - 17.0 g/dL [facility] Immature granulocytes (Bld) [#/Vol] 0.05 10*3/uL [facility] Immature granulocytes/100 WBC (Bld) 0.4 % [facility] Interpretation and review of laboratory results Abnormal [facility] Lymphocytes (Bld) [#/Vol] 2.07 10*3/uL [facility] Lymphocytes/100 WBC (Bld) 17.7 % [facility] MCH (RBC) [Entitic mass] 28.1 pg 26.0 - 34.0 pg [facility] MCHC (RBC) [Mass/Vol] 31.4 g/dL 30.5 - 36.0 g/dL [facility] MCV (RBC) [Entitic vol] 89.4 fL 80.0 - 100.0 fL [facility] Monocytes (Bld) [#/Vol] 0.89 10*3/uL High [facility] Monocytes/100 WBC (Bld) 7.6 % [facility] Neutrophils (Bld) [#/Vol] 8.53 10*3/uL High [facility] Neutrophils/100 WBC (Bld) 73.1 % [facility] Nucleated RBC (Bld) [#/Vol] [facility] Nucleated RBC/100 WBC (Bld) [Ratio] 0 % /100 WBC [facility] Platelet mean volume (Bld) [Entitic vol] 9.9 fL 9.0 - 12.7 fL [facility] Platelets (Bld) [#/Vol] 308 10*3/uL [facility] RBC (Bld) [#/Vol] 4.7 10*6/uL 4.20 - 6.00 m/uL [facility] WBC (Bld) [#/Vol] 11.69 10*3/uL High [facility] Basophils (Bld) [#/Vol] 0.04 10*3/uL Normal <0.11 [facility] Comment on above: Order Comment: Speci men Type: BLOOD SPECIMENOrdering Facility: [facility] Address: [address] [place] [address] Performed By: #### 5 7021-8 ####[facility] LABCLIA [id number] [place] [address] [place] Basophils/100 WBC (Bld) 0.3 % Normal [facility] Comment on above: Order Comment: Speci men Type: BLOOD SPECIMENOrdering Facility: [facility] Address: [address] [place] [address] Performed By: #### 5 7021-8 ####[facility] LABCLIA [id number] [place] [address] [place] Differential cell count method Nom (Bld) Auto Normal [facility] Comment on above: Order Comment: Speci men Type: BLOOD SPECIMENOrdering Facility: [facility] Address: [address] [place] [address] Performed By: #### 5 7021-8 ####[facility] LABCLIA [id number] [place] [address] [place] Eosinophils (Bld) [#/Vol] 0.11 10*3/uL Normal <0.46 [facility] Comment on above: Order Comment: Speci men Type: BLOOD SPECIMENOrdering Facility: [facility] Address: [address] [place] [address] Performed By: #### 5 7021-8 ####[facility] LABCLIA [id number] [place] [address] [place] Eosinophils/100 WBC (Bld) 0.9 % Normal [facility] Comment on above: Order Comment: Speci men Type: BLOOD SPECIMENOrdering Facility: [facility] Address: [address] [place] [address] Performed By: #### 5 7021-8 ####[facility] LABCLIA [id number] [place] [address] [place] Erythrocyte distribution width (RBC) [Ratio] 15.9 % High 11.5-15.0 [facility] Comment on above: Order Comment: Speci men Type: BLOOD SPECIMENOrdering Facility: [facility] Address: [address] [place] [address] Performed By: #### 5 7021-8 ####[facility] LABCLIA [id number] [place] [address] [place] Hematocrit (Bld) [Volume fraction] 42.0 % Normal 39.0-51.0 [facility] Comment on above: Order Comment: Speci men Type: BLOOD SPECIMENOrdering Facility: [facility] Address: [address] [place] [address] Performed By: #### 5 7021-8 ####[facility] LABIA [id number] [place] [address] [place] Hemoglobin (Bld) [Mass/Vol] 13.2 g/dL Normal 13.0-17.0 [facility] Comment on above: Order Comment: Speci men Type: BLOOD SPECIMENOrdering Facility: [facility] Address: [address] [place] [address] Performed By: #### 5 7021-8 ####[facility] LABIA [id number] [place] [address] [place] Immature granulocytes (Bld) [#/Vol] 0.05 10*3/uL Normal <0.10 [facility] Comment on above: Order Comment: Speci men Type: BLOOD SPECIMENOrdering Facility: [facility] Address: [address] [place] [address] Performed By: #### 5 7021-8 ####[facility] LABCLIA [id number] [place] [address] [place] Immature granulocytes/100 WBC (Bld) 0.4 % Normal [facility] Comment on above: Order Comment: Speci men Type: BLOOD SPECIMENOrdering Facility: [facility] Address: [address] [place] [address] Performed By: #### 5 7021-8 ####[facility] LABCLIA [id number] [place] [address] [place] Lymphocytes (Bld) [#/Vol] 2.07 10*3/uL Normal 1.00-4.00 [facility] Comment on above: Order Comment: Speci men Type: BLOOD SPECIMENOrdering Facility: [facility] Address: [address] [place] [address] Performed By: #### 5 7021-8 ####[facility] LABCLIA [id number] [place] [address] [place] Lymphocytes/100 WBC (Bld) 17.7 % Normal [facility] Comment on above: Order Comment: Speci men Type: BLOOD SPECIMENOrdering Facility: [facility] Address: [address] [place] [address] Performed By: #### 5 7021-8 ####[facility] LABCLIA [id number] [place] [address] [place] MCH (RBC) [Entitic mass] 28.1 pg Normal 26.0-34.0 [facility] Comment on above: Order Comment: Speci men Type: BLOOD SPECIMENOrdering Facility: [facility] Address: [address] [place] [address] Performed By: #### 5 7021-8 ####[facility] LABCLIA [id number] [place] [address] [place] MCHC (RBC) [Mass/Vol] 31.4 g/dL Normal 30.5-36.0 [facility] Comment on above: Order Comment: Speci men Type: BLOOD SPECIMENOrdering Facility: [facility] Address: [address] [place] [address] Performed By: #### 5 7021-8 ####[facility] LABCLIA [id number] [place] [address] [place] MCV (RBC) [Entitic vol] 89.4 fL Normal 80.0-100.0 [facility] Comment on above: Order Comment: Speci men Type: BLOOD SPECIMENOrdering Facility: [facility] Address: [address] [place] [address] Performed By: #### 5 7021-8 ####[facility] LABCLIA [id number] [place] [address] [place] Monocytes (Bld) [#/Vol] 0.89 10*3/uL High <0.87 [facility] Comment on above: Order Comment: Speci men Type: BLOOD SPECIMENOrdering Facility: [facility] Address: [address] [place] [address] Performed By: #### 5 7021-8 ####[facility] LABCLIA [id number] [place] [address] [place] Monocytes/100 WBC (Bld) 7.6 % Normal [facility] Comment on above: Order Comment: Speci men Type: BLOOD SPECIMENOrdering Facility: [facility] Address: [address] [place] [address] Performed By: #### 5 7021-8 ####[facility] LABCLIA [id number] [place] [address] [place] Neutrophils (Bld) [#/Vol] 8.53 10*3/uL High 1.45-7.50 [facility] Comment on above: Order Comment: Speci men Type: BLOOD SPECIMENOrdering Facility: [facility] Address: [address] [place] [address] Performed By: #### 5 7021-8 ####[facility] LABCLIA [id number] [place] [address] [place] Neutrophils/100 WBC (Bld) 73.1 % Normal [facility] Comment on above: Order Comment: Speci men Type: BLOOD SPECIMENOrdering Facility: [facility] Address: [address] [place] [address] Performed By: #### 5 7021-8 ####[facility] LABCLIA [id number] [place] [address] [place] Nucleated RBC (Bld) [#/Vol] 10*3/uL Normal <0.01 [facility] Comment on above: Order Comment: Speci men Type: BLOOD SPECIMENOrdering Facility: [facility] Address: [address] [place] [address] Performed By: #### 5 7021-8 ####[facility] LABCLIA [id number] [place] [address] [place] Nucleated RBC/100 WBC (Bld) [Ratio] 0.0 /100 WBC Normal [facility] Comment on above: Order Comment: Speci men Type: BLOOD SPECIMENOrdering Facility: [facility] Address: [address] [place] [address] Performed By: #### 5 7021-8 ####[facility] LABCLIA [id number] [place] [address] [place] Platelet mean volume (Bld) [Entitic vol] 9.9 fL Normal 9.0-12.7 [facility] Comment on above: Order Comment: Speci men Type: BLOOD SPECIMENOrdering Facility: [facility] Address: [address] [place] [address] Performed By: #### 5 7021-8 ####[facility] LABCLIA [id number] [place] [address] [place] Platelets (Bld) [#/Vol] 308 10*3/uL Normal 150-400 [facility] Comment on above: Order Comment: Speci men Type: BLOOD SPECIMENOrdering Facility: [facility] Address: [address] [place] [address] Performed By: #### 5 7021-8 ####[facility] LABCLIA [id number] [place] [address] [place] RBC (Bld) [#/Vol] 4.70 10*6/uL Normal 4.20-6.00 [facility] Comment on above: Order Comment: Speci men Type: BLOOD SPECIMENOrdering Facility: [facility] Address: [address] [place] [address] Performed By: #### 5 7021-8 ####[facility] LABIA [id number] [place] [address] [place] WBC (Bld) [#/Vol] 11.69 10*3/uL High 3.70-11.00 [facility] Comment on above: Order Comment: Speci men Type: BLOOD SPECIMENOrdering Facility: [facility] Address: [address] [place] [address] Performed By: #### 5 7021-8 ####[facility] LABIA [id number] [address] OF [facility] 09-17-2024 [facility] ABRAHAM GAGE ([id number]) 1940 M Date Time Provider Department 09/17/24 [facility] During your visit today, we recorded the following information about you: Sirena Martinez 09/17/2024 10:40 AM Signed Patient is wanting to come in to today for routine lab work for upcoming wellness exam with PCP on 09/26/24. Please notify patient when orders are available in chart. Desirae Irving APRN.BATTERY CONTAINER TESTER ALUMINUM 09/17/2024 2:05 PM Signed Labs placed this morning. Already in process. Desirae Irving, MICHI.BATTERY CONTAINER TESTER ALUMINUM Allergies As of Date: 09/17/2024 Noted Allergy Reaction ATORVASTATIN 10/18/2017 16 - Unknown CRESTOR (ROSUVASTATIN CALCIUM) 04/24/2013 14 - Other: See Comments Comments: Muscle pain GLUCOSAMINE 06/27/2017 16 - Unknown Comments: Nerve pain MOTRIN (IBUPROFEN) 01/19/2006 2 - Rash PRAVASTATIN 02/19/2013 14 - Other: See Comments Comments: muscle aches [id number] REDUCTASE INHIBIT*10/09/2014 14 - Other: See Comments Comments: myalgia Date Reviewed: 05/23/2024 Reviewed by: Juana Herrmann, JOAQUIN - Fully Assessed Reason for Visit: Lab Orders [6548] Prescriptions as of 09/17/2024 - isosorbide mononitrate [...] - Uncontrolled, E11.65 Insulin: Yes - Insulin [place], Disposable, (BD ULTRA-FINE BENNY PEN NEEDLE) 32 [...] CAD ( (more content not included)... Normal [facility] Comprehensive metabolic 2000 panelon 09-17-2024 Albumin [Mass/Vol] 3.7 g/dL Low 3.9-4.9 [facility] Comment on above: Order Comment: Speci men Type: BLOOD SPECIMENOrdering Facility: [facility] Address: [address] [place] [address] Performed By: #### 2 4331-1 ####[facility] LABORATORYCLIA [id number] [address] [place] [address] LABCLIA [id number] [place] [address] [place]#### 53499-0 ####[facility] LABORATORYCLIA [id number] [address] [place] [address] [place] ALP [Catalytic activity/Vol] 82 U/L Normal 38-113 [facility] Comment on above: Order Comment: Speci men Type: BLOOD SPECIMENOrdering Facility: [facility] Address: [address] [place] [address] Performed By: #### 2 4331-1 ####[facility] LABORATORYCLIA [id number] [address] [place] [address] STATES [facility] LABCLIA [id number] [place] [address] [place]#### 91079-6 ####[facility] LABORATORYCLIA [id number] [address] [address] [place] ALT [Catalytic activity/Vol] 20 U/L Normal 10-54 [facility] Comment on above: Order Comment: Speci men Type: BLOOD SPECIMENOrdering Facility: [facility] Address: [address] [place] [address] Performed By: #### 2 4331-1 ####[facility] LABORATORYCLIA [id number] [place] [id number] [facility] LABCLIA [id number] [place] [address] [place]#### 29072-2 ####[facility] LABORATORYCLIA [id number] [place] [id number] [place] Anion gap [Moles/Vol] 10 mmol/L Normal 8-15 [facility] Comment on above: Order Comment: Speci men Type: BLOOD SPECIMENOrdering Facility: [facility] Address: [address] [place] [address] Performed By: #### 2 4331-1 ####[facility] LABORATORYCLIA [id number] [place] [id number] [facility] LABCLIA [id number] [place] [address] [place]#### 97431-8 ####[facility] LABORATORYCLIA [id number] [place] [id number] [place] AST [Catalytic activity/Vol] 19 U/L Normal 14-40 [facility] Comment on above: Order Comment: Speci men Type: BLOOD SPECIMENOrdering Facility: [facility] Address: [address] [place], [place] [id number] Performed By: #### 2 4331-1 ####M[facility] LABORATORYCLIA [id number] [address] [address] [place] OF [facility] LABCLIA [id number] [place] [address] [place]#### 41131-0 ####[facility] LABORATORYCLIA [id number] [address] [address] [place] Bilirubin [Mass/Vol] 0.3 mg/dL Normal 0.2-1.3 [facility] Comment on above: Order Comment: Speci men Type: BLOOD SPECIMENOrdering Facility: [facility] Address: [address] [place] [id number] Performed By: #### 2 4331-1 ####M[facility] LABORATORYCLIA [id number] [address] [place], [place] [id number] [facility] LABCLIA [id number] [place] [address] [place]#### 15521-8 ####MUSLIM LABORATORYCLIA [id number] [place] [id number] [place] Calcium [Mass/Vol] 9.4 mg/dL Normal 8.5-10.2 [facility] Comment on above: Order Comment: Speci men Type: BLOOD SPECIMENOrdering Facility: [facility] Address: [address] [id number] Performed By: #### 2 4331-1 ####MUSLIM LABORATORYCLIA [id number] [place] [address] [facility] LABCLIA [id number] [place] [address] [place]#### 94750-2 ####MUSLIM LABORATORYCLIA [id number] [place] [address] [place] Chloride [Moles/Vol] 104 mmol/L Normal 98-107 [facility] Comment on above: Order Comment: Speci men Type: BLOOD SPECIMENOrdering Facility: [facility] Address: [address] [address] Performed By: #### 2 4331-1 ####MUSLIM LABORATORYCLIA [id number] [place] [address] [place] [facility] LABCLIA [id number] [place] [address] [place]#### 36329-1 ####MUSLIM LABORATORYCLIA [id number] [place] [address] [place] CO2 [Moles/Vol] 27 mmol/L Normal 22-30 [facility] Comment on above: Order Comment: Speci men Type: BLOOD SPECIMENOrdering Facility: [facility] Address: [address] [place] [address] Performed By: #### 2 4331-1 ####MUSLIM LABORATORYCLIA [id number] [address] [place] [address] LABCLIA [id number] [place] [address] [place]#### 17804-4 ####MUSLIM LABORATORYCLIA [id number] [place] [address] [place] Creatinine [Mass/Vol] 1.68 mg/dL High 0.73-1.22 [facility] Comment on above: Order Comment: Speci men Type: BLOOD SPECIMENOrdering Facility: [facility] Address: [address] [place] [address] Performed By: #### 2 4331-1 ####MUSLIM LABORATORYCLIA [id number] [place] [address] [facility] LABCLIA [id number] [place] [address] [place]#### 51022-3 ####MUSLIM LABORATORYCLIA [id number] [place] [address] [place] Creatinine and Glomerular filtration rate.predicted panel (S/P/Bld) 40 mL/min/1.73m??? Low >=60 [facility] Comment on above: Order Comment: Speci men Type: BLOOD SPECIMENOrdering Facility: [facility] Address: [address] [place] [address] Result Comment: Jeanette mated Glomerular Filtration Rate [...] actual GFR. Performed By: #### 2 4331-1 ####MUSLIM LABORATORYCLIA [id number] [address] LABCLIA [id number] [address]#### 34438-5 ####[facility] CAREIA [id number] [place] [address] [place] [facility] Glucose [Mass/Vol] 80 mg/dL Normal 74-99 [facility] Comment on above: Order Comment: Speci men Type: BLOOD SPECIMENOrdering Facility: [facility] Address: [address] [place] [address] Result Comment: The [place] Diabetes Association (ADA) provides guidance for cutoff [...] Standards of Medical Care in Diabetes 2016, [place] Diabetes Association. Diabetes Care. 2016.39(Suppl 1). Performed By: #### 2 4331-1 ####MUSLIM LABORATORYCLIA [id number] [place] [address] [facility] LABCLIA [id number] [address] [place]#### 47468-7 ####MUSLIM LABORATORYCLIA [id number] [address] [place], [place] [address] [place] Potassium [Moles/Vol] 4.6 mmol/L Normal 3.7-5.1 [facility] Comment on above: Order Comment: Speci men Type: BLOOD SPECIMENOrdering Facility: [facility] Address: [address] [place] [address] Performed By: #### 2 4331-1 ####MUSLIM LABORATORYCLIA [id number] [address] [place] [address] LABCLIA [id number] [place] [address] [place]#### 40224-0 ####MUSLIM LABORATORYCLIA [id number] [place] [address] [place] Protein [Mass/Vol] 6.8 g/dL Normal 6.3-8.0 [facility] Comment on above: Order Comment: Speci men Type: BLOOD SPECIMENOrdering Facility: [facility] Address: [address] 2[address] Performed By: #### 2 4331-1 ####MUSLIM LABORATORYCLIA [id number] [address] [place], [place] [address] [facility] LABCLIA [id number] [place] [address] [place]#### 34380-7 ####MUSLIM LABORATORYCLIA [id number] [place] [address] [place] Sodium [Moles/Vol] 141 mmol/L Normal 136-144 [facility] Comment on above: Order Comment: Speci men Type: BLOOD SPECIMENOrdering Facility: [facility] Address: [address] [address] Performed By: #### 2 4331-1 ####MUSLIM LABORATORYCLIA [id number] [place] [address] [place] OF [facility] LABCLIA [id number] [address] [place]#### 94672-4 ####MUSLIM LABORATORYCLIA [id number] [address] STATES [facility] Urea nitrogen [Mass/Vol] 26 mg/dL High 9-24 [facility] Comment on above: Order Comment: Speci men Type: BLOOD SPECIMENOrdering Facility: [facility] Address: [address] [place] [address] Performed By: #### 2 4331-1 ####MUSLIM LABORATORYCLIA [id number] [address] LABCLIA [id number] [address] [place]#### 53642-2 ####MUSLIM LABORATORYCLIA [id number] [address] HbA1c (Bld)on 09-17-2024 Average glucose Estimated from glycated hemoglobin (Bld) [Mass/Vol] 134 mg/dL Normal [facility] Comment on above: Order Comment: Cnydy sinha Type: BLOOD SPECIMENOrdering Facility: [facility] Address: [address] [place] [address] Result Comment: eAG: (Estimated average glucose) is a calculated value from HgbA1c and is patient relations representative of the average blood glucose level in the last 2-3 month period. Performed By: #### 5 5454-3 ####[facility] LABIA [id number] [address] STATES OF [facility] HbA1c (Bld) [Mass fraction] 6.3 % High 4.3-5.6 [facility] Comment on above: Order Comment: Cyndy men Type: BLOOD SPECIMENOrdering Facility: [facility] Address: [address] [place] [address] Result Comment: Amer ican Diabetes Association guidelines indicate that patients with HgbA1c in the range 5.7-6.4% are at increased risk for development of diabetes, and intervention by lifestyle modification may be beneficial. HgbA1c greater or equal to 6.5% is considered diagnostic of diabetes. Performed By: #### 5 5454-3 ####[facility] LABCLIA [id number] [place] [address] [facility] Lipid 1996 panelon 5 Cholesterol [Mass/Vol] 201 mg/dL High <200 [facility] Comment on above: Order Comment: Speci men Type: BLOOD SPECIMENOrdering Facility: [facility] Address: [address] [place] [address] Result Comment: <200 mg/dL, Desirable 200-239 mg/dL, Borderline high >239 mg/dL, High Performed By: #### 2 4331-1 ####MUSLIM LABORATORYCLIA [id number] [address] LABCLIA [id number] [address] [place]#### 99342-4 ####MUSLIM LABORATORYCLIA [id number] [address] STATES [facility] Cholesterol in HDL [Mass/Vol] 39 mg/dL Low >39 [facility] Comment on above: Order Comment: Speci men Type: BLOOD SPECIMENOrdering Facility: [facility] Address: [address] [place] [address] Result Comment: 40-5 9 mg/dL, Acceptable >59 mg/dL, High: Negative risk factor for coronary heart disease <40 mg/dL, Low: Positive risk factor for coronary heart disease Performed By: #### 2 4331-1 ####MUSLIM LABORATORYCLIA [id number] [address] LABCLIA [id number] [address] [place]#### 85862-1 ####MUSLIM LABORATORYCLIA [id number] [address] STATES [facility] Cholesterol in LDL [Mass/Vol] 132 mg/dL High <100 [facility] Comment on above: Order Comment: Speci men Type: BLOOD SPECIMENOrdering Facility: [facility] Address: [address] [place] [address] Result Comment: <100 mg/dL, Optimal 100-129 mg/dL, Near optimal/above optimal 130-159 mg/dL, Borderline high 160-189 mg/dL, High >189 mg/dL, Very high Secondary prevention optimal LDL Cholesterol levels are recommended to be < 70 mg/dL Performed By: #### 2 4331-1 ####M[facility]LIM LABORATORYCLIA [id number] [address] LABCLIA [id number] [address]#### 05082-4 ####MUSLIM LABORATORYCLIA [id number] [address] Cholesterol in LDL/Cholesterol in HDL [Mass ratio] 3.38 {ratio} High <2.54 [facility] Comment on above: Order Comment: Speci men Type: BLOOD SPECIMENOrdering Facility: [facility] Address: [address] [place] [address] Result Comment: Alla patiño: 1. National Cholesterol Education Program ATP III Guideline At-A-Glance Quick Desk Reference: National Heart, Lung, and Blood [place]. National Institutes of Health. 2001: NIH Publication No. 01-3305. 2. An International Atherosclerosis Society position paper: global recommendations for the management of dyslipidemia: executive summary, Atherosclerosis. 2014: 232(2):410-413. Performed By: #### 2 4331-1 ####MUSLIM LABORATORYCLIA [id number] [address] LABCLIA [id number] [address]#### 52423-2 ####MUSLIM LABORATORYCLIA [id number] [address] Cholesterol in VLDL [Mass/Vol] 30 mg/dL High <30 [facility] Comment on above: Order Comment: Speci men Type: BLOOD SPECIMENOrdering Facility: [facility] Address: [address] [place] [address] Performed By: #### 2 4331-1 ####MUSLIM LABORATORYCLIA [id number] [address] [place], [place] [address] [facility] LABCLIA [id number] [address] [place]#### 34763-9 ####MUSLIM LABORATORYCLIA [id number] [place] [address] [place] Cholesterol non HDL [Mass/Vol] 162 mg/dL High <130 [facility] Comment on above: Order Comment: Speci men Type: BLOOD SPECIMENOrdering Facility: [facility] Address: [address] [place] [address] Result Comment: <130 mg/dL, Optimal 130-159 mg/dL, Near optimal/above optimal 160-189 mg/dL, Borderline high 190-219 mg/dL, High >219 mg/dL, Very high Secondary prevention optimal non HDL Cholesterol levels are recommended to be <100 mg/dL Performed By: #### 2 4331-1 ####MUSLIM LABORATORYCLIA [id number] [place] [address] [facility] LABCLIA [id number] [address] [place]#### 57481-4 ####MUSLIM LABORATORYCLIA [id number] [place] [address] [place] [facility] Cholesterol.total/Chol esterol in HDL [Mass ratio] 5.15 {ratio} High <5.10 [facility] Comment on above: Order Comment: Speci men Type: BLOOD SPECIMENOrdering Facility: [facility] Address: [address] [place] [address] Performed By: #### 2 4331-1 ####MUSLIM LABORATORYCLIA [id number] [place] [address] [facility] LABCLIA [id number] [place] [address] [place]#### 70096-2 ####M[facility]LIM LABORATORYCLIA [id number] [place] [address] [place] FASTING TIME 12 hrs Normal [facility] Comment on above: Order Comment: Speci men Type: BLOOD SPECIMENOrdering Facility: [facility] Address: [address] [place] [address] Performed By: #### 2 4331-1 ####MUSLIM LABORATORYCLIA [id number] [address] LABCLIA [id number] [place] [address] [place]#### 50263-3 ####MUSLIM LABORATORYCLIA [id number] [place] [address] [place] Triglyceride [Mass/Vol] 149 mg/dL Normal <150 [facility] Comment on above: Order Comment: Speci men Type: BLOOD SPECIMENOrdering Facility: [facility] Address: [address] [place] [address] Result Comment: <150 mg/dL, Normal 150-199 mg/dL, Borderline high 200-499 mg/dL, High >499 mg/dL, Very high Performed By: #### 2 4331-1 ####MUSLIM LABORATORYCLIA [id number] [address] LABCLIA [id number] [place] [address] [place]#### 48407-4 ####MUSLIM LABORATORYCLIA [id number] [place] [address] [place] PSA/PROSTATE SPECIFIC ANTIGE N SCREENINGon 09-17-2024 Prostate specific Ag [Mass/Vol] 0.05 ng/mL Normal <2.60 [facility] Comment on above: Order Comment: Speci men Type: BLOOD SPECIMENOrdering Facility: [facility] Address: [address] [id number] Result Comment: Tota l PSA test methodology used is the Electrochemiluminescence Immunoassay by [employer]. Total PSA values by differing methodologies cannot be interchanged. Performed By: #### P SAS1 ####[facility] LABCLIA [id number] [place] [id number] [id number] [facility] Mirza 06-08-2024 JAIRONN Telephone (GENSWS) -- ABRAHAM GAGE ([id number]) 1940 M Date Time Provider Department 06/08/24 [...] 2:32 PM Signed 3mg capsules sent to [facility] in [place]. Please call Abraham AND let him know. Thank you, Cristela Andersen APRN.Komal Sena RN 06/08/2024 2:54 PM Signed [facility] [place] Komal Rich RN June 08, 2024 2:54 PM Allergies As of Date: 06/08/2024 Noted Allergy Reaction ATORVASTATIN 10/18/2017 16 - Unknown CRESTOR (ROSUVASTATIN CALCIUM) 04/24/2013 14 - Other: See Comments Comments: Muscle pain GLUCOSAMINE 06/27/2017 16 - Unknown Comments: Nerve pain MOTRIN (IBUPROFEN) 01/19/2006 2 - Rash PRAVASTATIN 02/19/2013 14 - Other: See Comments Comments: muscle aches ZERQHBZ-PIS-HHJ REDUCTASE INHIBIT*10/09/2014 14 - Other: See Comments Comments: myalgia Date Reviewed: 05/23/2024 Reviewed by: Juana Herrmann RN - Fully Assessed Reason for Visit: Medication [...] - Uncontrolled, E11.65 Insulin: Yes - Insulin [place], Disposable, (BD ULTRA-FINE BENNY PEN NEEDLE) 32 [...] rupture [* (more content not included)... Normal [facility] CNOVon 05-31-2024 CNOV Office Visit (GENSWS ) -- ABRAHAM GAGE ([id number]) 1940 M Date Time Provider Department 05/31/24 2:00 PM CRISTELA ANDERSEN During your visit today, we recorded the following information about you: Cristela Andersen APRN.CNP 05/31/2024 2:38 PM Signed FOLLOW UP VISIT - ENDOSCOPY Abraham Gage 1940 [id number] REFERRING PHYSICIAN: No referring provider defined for [...] needed for worsening/no improvement. _ Cristela Andersen APRN.BATTERY CONTAINER TESTER ALUMINUM Allergies As of Date: 05/31/2024 Noted Allergy Reaction ATORVASTATIN 10/18/2017 16 - Unknown CRESTOR (ROSUVASTATIN CALCIUM) 04/24/2013 14 - Other: See Comments Comments: Muscle pain GLUCOSAMINE 06/27/2017 16 - Unknown Comments: Nerve pain MOTRIN (IBUPROFEN) 01/19/2006 2 - Rash PRAVASTATIN 02/19/2013 14 - Other: See Comments Comments: muscle aches PZJNEKR-BUE-AHI REDUCTASE INHIBIT*10/09/2014 14 - Other: See Comments [...] - Uncontrolled, E11.65 Insulin: Yes - Insulin [place], Disposable, (BD ULTRA-FINE BENNY PEN NEEDLE) 32 gauge x 5/32 Use once daily with Lantus as directed - diclofenac sodium (VOLTAREN) 1 % topical gel Apply 2 g to affected area four times daily. - flaxseed oil (OMEGA 3 ORAL) Take by mouth. - hydrocortisone 2.5 % cream Apply 1 application to affected area twice marvin (more content not included)... Normal [facility] 05-30-2024 JOHN Telephone (GENSWS) -- FRANKYABRAHAM Ortega ([id number]) 1940 M Date Time Provider Department 05/30/24 CRISTELA ANDERSEN During your visit today, we recorded the following information about you: Cristela Andersen APRN.CNP 05/30/2024 9:58 AM Signed Can you please call Abraham to let him know he needs a visit to go over his colonoscopy/EGD results. Can be in person or virtual. Thank you, SAMUEL Mccall Ida 05/30/2024 12:53 PM Signed Patient notified and [...] - Other: See Comments Comments: muscle aches RWWEUGK-CBJ-UTV REDUCTASE INHIBIT*10/09/2014 14 - Other: See Comments [...] - Uncontrolled, E11.65 Insulin: Yes - Insulin [place], Disposable, (BD ULTRA-FINE BENNY PEN NEEDLE) 32 [...] or Radiculitis*11/27/2009 Glucose intolerance (pre-diabetes) [R73.03] 03/23/2011 12/0 (more content not included)... Normal [facility] C. DIFFICILE PCRon C. difficile toxin genes CHANTAL+probe Ql (Stl) Negative Negative for C. difficile toxin by PCR [facility] C. difficile toxin genes CHANTAL +probe Ql (Stl)on 05-24-2024 Interpretation and review of laboratory results Normal [facility] ANES POSTPROC EVALon 024 ANES POSTPROC EVAL HNO ID: [id number] Author: KARRIE BURGER MD Service: Anesthesiology Author Type: Anesthesiologist Type: Anesthesia Postprocedure Evaluation Filed: 05/23/2024 15:46 Note Text: POST ANESTHESIA EVALUATION NOTE : 1940 Procedure Summary Date: 05/23/24 Room / Location: [facility] Endoscopy Anesthesia Start: 1333 Anesthesia Stop: 1413 Procedures: COLONOSCOPY DIAGNOSTIC EGD DIAGNOSTIC Diagnosis: Chronic diarrhea Generalized abdominal pain Gastroesophageal reflux disease without esophagitis (Abdominal pain in the left upper quadrant) (Abdominal pain in the left upper quadrant) Scheduled Providers: Malu Mendoza MD; Bella Hannah APRN.ASSISTANT GROCERY STORE MANAGER; Cristin Nieves MD Responsible Provider: Colt Rice [...] May 23, 2024 TIME: 3:46 PM CSN: [id number] Normal [facility] ANES PRE-OPon 05-23-2024 ANES PRE-OP HNO ID: [id number] Author: COLT RICE MD Service: Anesthesiology Author Type: Anesthesiologist Type: Anesthesia Preprocedure Evaluation Filed: 05/23/2024 12:45 Note Text: ANESTHESIOLOGY DAY OF SURGERY NOTE : 1940 Procedure Information Date/Time: 05/23/24 1415 Scheduled providers: Malu Mendoza MD; Bella Hannah APRN.ASSISTANT GROCERY STORE MANAGER; Cristin Nieves MD Procedures: COLONOSCOPY DIAGNOSTIC EGD DIAGNOSTIC Location: [facility] Endoscopy Estimated body mass index is 24.78 kg/m? as calculated from the following: Height as of this encounter: 172.7 cm (5' 8). Weight as of this encounter: 73.9 kg (163 lb). Most recent hematocrit and potassium results: Hematocrit 39.3 03/19/2024 Potassium 4.3 03/19/2024 Relevant Problems CARDIO (+) Abdominal aortic aneurysm (AAA) without rupture ([facility]) (+) Atherosclerosis of common carotid artery (+) Atherosclerosis of [place]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[place] heart with angina pectoris ([facility]) (+) Carotid atherosclerosis, bilateral (+) Complete atrioventricular block (HCC) (+) Coronary artery 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 rich plaque (+) Essential hypertension, benign (+) Stenosis of left carotid artery (+) Stented coronary artery (+) Vasculitis of skin ENDO (+) 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 Patient / Responsible Libertarian agrees to proceed: yes Patient / Surrogate [...] - Uncontrolled, E11.65 Insulin: Yes - Insulin [place], Disposable, (BD ULTRA-FINE BENNY PEN NEEDLE) 32 [...] as in (more content not included)... Normal [facility] C diff Tox gens Stl Ql CHANTAL+p robeon 05-23-2024 C. difficile toxin genes CHANTAL+probe Ql (Stl) Negative Normal Negative for C. difficile toxin by PCR [facility] Comment on above: Order Comment: Speci men Type: STOOL SPECIMEN [facility] Address: [address] [place] [address] Performed By: #### P ANC, 04157-7, 15928-8 #### [facility] LAB CLIA [id number] [address] [place] [address] [place] Colonoscopyon 05-23-2024 Colonoscopy [facility] Gastrointestinal Endoscopy Patient Name: Abraham Gage Procedure Date: 05/23/2024 1:44 PM Date of : 1940 Admit Type: Outpatient Age: 83 Room: [facility] Gender: Male Note Status: Finalized Attending MD: Malu Mendoza MD, [id number] Procedure: Colonoscopy Indications: Abdominal pain in the [...] anesthesia care under the supervision of a ASSISTANT GROCERY STORE MANAGER was determined to be medically necessary for [...] to age. Procedure Code(s): --- Professional --- 16208, Colonoscopy, flexible; with biopsy, single or multiple Diagnosis Code(s): --- Professional --- K57.30, Diverticulosis of large intestine without perforation or abscess without bleeding R19.7, Diarrhea, unspecified R10.12, Left upper quadrant pain K64.8, Other hemorrhoids CPT copyright 2020 [employer]. All rights reserved. The codes documented in this report are preliminary and upon vice president & general manager brand [place] review may be revised to meet current compliance requirements. Attending Participation: I personally performed the entire procedure. Scope In: 1:47:48 PM Scope Out: 2:05:30 PM MD Malu Huston MD 05/23/2024 2:08:39 PM This report has been signed electronically by Malu Mendoza MD Number of Addenda: 0 Note Initiated On: 05/23/2024 1:44 PM Estimated Blood Loss: Estimated blood loss was minimal. Normal [facility] ECG COMPLETEon 05-23-2024 Atrial Rate 66 BPM [facility] Calculated R [place] [address] [facility] Calculated T [place] [address] [facility] P-R Interval 154 ms [facility] QRS Duration 96 ms [facility] QT Interval 432 ms [facility] QTC Calculation (Bazett) 452 ms [facility] Ventricular Rate 66 BPM [facility] NORMAL SINUS RHYTHM LOW VOLTAGE QRS LEFT POSTERIOR FASCICULAR BLOCK POSSIBLE INFERIOR INFARCT (CITED ON OR BEFORE 23-May-2024) ABNORMAL ECG WHEN COMPARED WITH ECG OF 23-May-2024 13:02, NO SIGNIFICANT CHANGE WAS FOUND Confirmed by MARCIAL AUSTIN M.D. ([id number]) on 05/23/2024 4:02:00 PM [facility] NAME : ANISA GAGE PID : [id number] : 1940 Gender : Male Race : ORD : [id number] Procedure Date : May 23 2024 13:02:54 [...] By : CRISTELA ANDERSEN Acquired by : [id number], [facility] ECG COMPLETE Ventricular Rate : 6 6 BPM Atrial Rate : 66 BPM P-R Interval : 154 ms QRS Duration : 96 ms Q-T Interval : 432 ms QTC Calculation(Bazett) : 452 ms Calculated R [place] : 120 degrees Calculated T [place] : 154 degrees NORMAL SINUS RHYTHM LOW VOLTAGE QRS LEFT POSTERIOR FASCICULAR BLOCK POSSIBLE INFERIOR INFARCT (CITED ON OR BEFORE 23-May-2024) ABNORMAL ECG WHEN COMPARED WITH ECG OF 23-May-2024 13:02, NO SIGNIFICANT CHANGE WAS FOUND Confirmed by MARCIAL AUSTIN M.D. ([id number]) on 05/23/2024 4:02:00 PM NAME : ABRAHAM GAGE PID : [id number] : 1940 Gender : Male Race : ORD : [id number] Procedure Date : May 23 2024 13:02:54 [...] By : CRISTELA ANDERSEN Acquired by : [id number], Normal [facility] EGD Study observation Haroldo salazar 05-23-2024 [facility] Gastrointestinal Endoscopy Patient Name: Abraham Gage Procedure Date: 05/23/2024 1:23 PM Date of : 1940 Admit Type: Outpatient Age: 83 Room: [facility] Gender: Male Note Status: Finalized Attending MD: Malu Mendoza MD, [id number] Procedure: Upper GI endoscopy Indications: Abdominal pain [...] anesthesia care under the supervision of a ASSISTANT GROCERY STORE MANAGER was determined to be medically necessary for [...] future endoscopies Procedure Code(s): --- Professional --- 60846, Esophagogastroduodenoscopy , flexible, transoral; with biopsy, single or multiple Diagnosis Code(s): --- Professional --- R10.12, Left upper quadrant pain K44.9, Diaphragmatic hernia without obstruction or gangrene K31.89, Other diseases of stomach and duodenum CPT copyright 2020 [employer]. All rights reserved. The codes documented in this report are preliminary and upon vice president & general manager brand [place] review may be revised to meet current compliance requirements. Attending Participation: I personally performed the entire procedure. Scope In: 1:39:11 PM Scope Out: 1:43:56 PM MD Malu Huston MD 05/23/2024 1:46:49 PM This report has been signed electronically by Malu Mendoza MD Number of Addenda: 0 Note Initiated On: 05/23/2024 1:23 PM Estimated Blood Loss: Estimated blood loss was minimal. PROVATION [facility] Radiology Study observation (narrative) [facility] Flexible sigmoidoscopy study on 05-23-2024 [facility] Gastrointestinal Endoscopy Patient Name: Abraham Gage Procedure Date: 05/23/2024 1:44 PM Date of : 1940 Admit Type: Outpatient Age: 83 Room: [facility] Gender: Male Note Status: Finalized Attending MD: Malu Mendoza MD, [id number] Procedure: Colonoscopy Indications: Abdominal pain in the [...] anesthesia care under the supervision of a ASSISTANT GROCERY STORE MANAGER was determined to be medically necessary for [...] to age. Procedure Code(s): --- Professional --- 81533, Colonoscopy, flexible; with biopsy, single or multiple Diagnosis Code(s): --- Professional --- K57.30, Diverticulosis of large intestine without perforation or abscess without bleeding R19.7, Diarrhea, unspecified R10.12, Left upper quadrant pain K64.8, Other hemorrhoids CPT copyright 2020 [employer]. All rights reserved. The codes documented in this report are preliminary and upon vice president & general manager [employer] [place] review may be revised to meet current compliance requirements. Attending Participation: I personally performed the entire procedure. Scope In: 1:47:48 PM Scope Out: 2:05:30 PM MD Malu Huston MD 05/23/2024 2:08:39 PM This report has been signed electronically by Malu Mendoza MD Number of Addenda: 0 Note Initiated On: 05/23/2024 1:44 PM Estimated Blood Loss: Estimated blood loss was minimal. PROVATION [facility] Radiology Study observation (narrative) [facility] G lamblia+Cryptosp Ag Stl Ql IAon 05-23-2024 G. lamblia+Cryptosporidiu m sp Ag IA Ql (Stl) CRYPTOSPORIDIUM ANTIGEN BY EIA: Negative for Cryptosporidium by EIA. GIARDIA ANTIGEN BY EIA: Negative for Giardia lamblia by EIA. [facility] Comment on above: Performed By: #### P [facility], 14688-0, 13809-3 #### [facility] CLIA [id number] [address] [place], [place] [address] [address] [place] GLUCOSE, BLOOD (POC)on 05-23 Glucose [Mass/Vol] 79 mg/dL 74 - 99 mg/dL [facility] Comment on above: Location:[facility], [address] [place] [address], [facility] The Accu-Chek Inform II glucose meter has [...] blood gas instrument) in the above situations. [facility] Glucose [Mass/Vol] 85 mg/dL 74 - 99 mg/dL [facility] Comment on above: Location:[facility], [address], [place], [facility] The Accu-Chek Inform II glucose meter has [...] blood gas instrument) in the above situations. [facility] Gastrointestinal pathogens i dentified CHANTAL+probe Nom (Stl)on 05-23-2024 Campylobacter sp DNA CHANTAL+probe Nom (Unsp spec) Not detected Normal Not Detected [facility] Comment on above: Order Comment: Speci men Type: STOOL SPECIMEN Ordering Facility: [facility] Address: [address] [place] [address] Performed By: #### 7 9390-1 #### [facility] CLIA [id number] [address] [place] [address] [place] Salmonella sp DNA CHANTAL+probe Ql (Unsp spec) Not detected Normal Not Detected [facility] Comment on above: Order Comment: Speci men Type: STOOL SPECIMEN Ordering Facility: [facility] Address: [address] [place] [address] Performed By: #### 7 9390-1 #### [facility] CLIA [id number] [address] [place] [address] [place] Shiga toxin stx gene CHANTAL+probe Nom (Unsp spec) Not detected Normal Not Detected [facility] Comment on above: Order Comment: Speci men Type: STOOL SPECIMEN Ordering Facility: [facility] Address: [address] [place] [address] Performed By: #### 7 9390-1 #### [facility] CLIA [id number] [address] [place] [address] [place] Shigella sp DNA CHANTAL+probe Ql (Unsp spec) Not detected Normal Not Detected [facility] Comment on above: Order Comment: Speci men Type: STOOL SPECIMEN Ordering Facility: [facility] Address: [address] [place] [address] Performed By: #### 7 9390-1 #### [facility] CLIA [id number] [address] [place] [address] [place] HISTORY PHYSICALon HISTORY PHYSICAL HNO ID: [id number] Author: MALU MENDOZA MD Service: General Surgery Author Type: Physician Type: H&P Filed: 05/23/2024 13:31 Note Text: HISTORY AND PHYSICAL Abraham Gage : 1940 REFERRING PHYSICIAN: Samson Ragsdale [address] [facility] [place] [address] CHIEF COMPLAINT: Patient presents with: Consult: Colonoscopy [...] 2022 EF of 53%. Abraham follows with [place] [facility]ology had elective cath 06/2023 due to positive stress test. 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 Currently takes plavix. Follows with Dr. Petersen at [place]. Last OV 07/2023 Abraham has a hx of Alzheimers dementia Abraham has undergone prior endoscopy. Last EGD ANDcolonoscopy 04/2017 with At [facility] for anemia Impression: -Findings suggest upper gastritis [...] - Uncontrolled, E11.65 Insulin: Yes CRANBERRY Insulin [place], Disposable, (BD ULTRA-FINE BENNY PEN NEEDLE) 32 [...] [Rosuvastatin Calcium], Glucosamine, Motrin [Ibuprofen], Pravastatin, and Hrbomyg-Mth-Wnc Reductase Inhibitors PAST MEDICAL HISTORY 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 09/2015 4.15 cm Acute gastritis without mention of hemorrhage (more content not included)... Normal [facility] PANC ELASTASE, FECALon 05-23 ELASTASE INTERPRETATION Normal Normal Normal [facility] Comment on above: Order Comment: Cyndy sinha Type: STOOL SPECIMENOrdering Facility: [facility] Address: [address] [place] [address] Performed By: #### P ANCEF, 70364-4, 42522-8 ####[facility]IA [id number] [place] [address] [place] ELASTASE-1 CONCENTRATION 308 ug/g Normal >=200 [facility] Comment on above: Order Comment: Cyndy sinha Type: STOOL SPECIMENOrdering Facility: [facility] Address: [address] [place] [address] Result Comment: Inte rpretation: <100 ug/g: Severe Exocrine Pancreatic Insufficiency 100-199 ug/g: Mild to Moderate Exocrine Pancreatic Insufficiency >=200 ug/g: Normal Performed By: #### P ANCEF, 97087-6, 71131-5 ####[facility]IA [id number] [place] [address] [place] SURGICAL PATHOLOGYon 024 CASE REPORT Normal [facility] Comment on above: Order Comment: Cyndy sinha Type: TISSUE SPECIMEN Ordering Facility: [facility] Address: [address] [place] [address] Result Comment: Surg ica Pathology Report Case: [id number] Authorizing Provider: Malu Mendoza MD Collected: 05/23/2024 01:42 PM Ordering Location: [facility] Endoscopy Received: 05/23/2024 03:08 PM Pathologist: Hari Umaña MD Specimens: A) - Small Bowel, Duodenum, Biopsy, sprue B) - Stomach, Biopsy, hp C) - Colon, Biopsy, random Performed By: #### S #### [facility] CLIA [id number] [address] [place] [address] [place] CLINICAL HISTORY A. Normal [facility] Comment on above: Order Comment: Speci men Type: TISSUE SPECIMEN Ordering Facility: [facility] Address: [address] [place] [address] Performed By: #### S #### [facility] CLIA [id number] [address] [place] [address] FINAL DIAGNOSIS [facility] Comment on above: Order Comment: Speci men Type: TISSUE SPECIMEN Ordering Facility: [facility] Address: [address] [place] [address] Result Comment: ABonnie D uodenum, biopsy: -Small intestinal mucosa with no diagnostic alteration -No evidence of celiac disease B. Stomach, biopsy: -Antral mucosa with no diagnostic alteration -No morphologic evidence of Helicobacter pylori C. Random colon, biopsy: -Collagenous colitis Performed By: #### S #### [facility] CLIA [id number] [address] [place] [address] FINAL PERFORMING LAB [facility] Comment on above: Order Comment: Speci men Type: TISSUE SPECIMEN Ordering Facility: [facility] Address: [address] [place] [address] Result Comment: Diag nostic interpretation performed at [facility], [address] [place] [address] CLIA# [id number] Network Security Administrator: Jose Guadalupe Herrera M.D. Performed By: #### S #### [facility] CLIA [id number] [address] [place] [address] GROSS DESCRIPTION [facility] Comment on above: Order Comment: Speci men Type: TISSUE SPECIMEN Ordering Facility: [facility] Address: [address] [place] [address] Result Comment: A. S mall Bowel, Duodenum, [...] 0.2 cm. Totally submitted in two cassettes. [facility] May 23, 2024 8:21 PM Gross examination performed at [facility], [address] [place] [address] Performed By: #### S #### [facility] CLIA [id number] [address] [place] [id number] OF [facility] Upper GI endoscopyon 05-23- 024 Upper GI endoscopy [facility] Gastrointestinal Endoscopy Patient Name: Abraham Gage Procedure Date: 05/23/2024 1:23 PM Date of : 1940 Admit Type: Outpatient Age: 83 Room: [facility] Gender: Male Note Status: Finalized Attending MD: Malu Mendoza MD, [id number] Procedure: Upper GI endoscopy Indications: Abdominal pain [...] anesthesia care under the supervision of a ASSISTANT GROCERY STORE MANAGER was determined to be medically necessary for [...] future endoscopies Procedure Code(s): --- Professional --- 00065, Esophagogastroduodenoscopy , flexible, transoral; with biopsy, single or multiple Diagnosis Code(s): --- Professional --- R10.12, Left upper quadrant pain K44.9, Diaphragmatic hernia without obstruction or gangrene K31.89, Other diseases of stomach and duodenum CPT copyright 2020 [employer]. All rights reserved. The codes documented in this report are preliminary and upon vice president & general manager brand [place] review may be revised to meet current compliance requirements. Attending Participation: I personally performed the entire procedure. Scope In: 1:39:11 PM Scope Out: 1:43:56 PM MD Malu Huston MD 05/23/2024 1:46:49 PM This report has been signed electronically by Malu Mendoza MD Number of Addenda: 0 Note Initiated On: 05/23/2024 1:23 PM Estimated Blood Loss: Estimated blood loss was minimal. Normal [facility] HISTORY PHYSICALon HISTORY PHYSICAL HNO ID: [id number] Author: OBDULIA LAUREN APRN.JAIRON Service: ? Author Type: Nurse Practitioner [...] aneurysm measuring 4.3cm at mid. 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 Following [facility] routinely. Last OV scanned into [facility] 2023 and AC instructions and clearance scanned into [facility] as well 04/16/2024 Complete atrioventricular block (HCC) Assessment: per PCP note 09/2023 this is stable, but no mention in public transit specialist notes of this. Pt has no h/o [...] have a large neck STOP-Bang Score: 3 [id number]-SCXt Score: Age: >=75 Sex: male CHF history: No Hypertension history: Yes Stroke/TIA/thromboembolism history: No Vascular disease history: Yes Diabetes history: Yes [id number] Score: 5 ARISCAT Score: Age: >80 Preoperative [...] Post Procedure (more content not included)... Normal [facility] 04-16-2024 CNPN Telephone (GENLUMObackS) -- ABRAHAM GAGE ([id number]) 1940 M Date Time Provider Department 04/16/24 CRISTELA ANDERSEN During your visit today, we recorded the following information about you: Jaja Marshall 04/16/2024 11:32 AM Signed Per Cristela Andersen patient to seek cardiac clearance prior to proceeding with scopes on 05/23/[address] Mendoza in [place] Patient follows [facility] Dr. Palomo Petersen. Clearance form faxed to their office at [phone] (see scanned doc for fax confirmation) Patient aware of all steps needed to be completed prior to proceeding and voiced understanding Jaja Marshall E M Assembler Jaja Marshall 04/24/2024 8:21 AM Signed Cardiac clearance received. Patient cleared to proceed and should HOLD Plavix 7 days prior to scopes. Per Dr. Palomo Petersen recommends patient to remain on ASA 81 mg uninterrupted. See scanned doc (also attached to encounter) Jaja Marshall E M Assembler Allergies As of Date: 04/16/2024 Noted Allergy Reaction ATORVASTATIN 10/18/2017 16 - Unknown CRESTOR (ROSUVASTATIN CALCIUM) 04/24/2013 14 - Other: See Comments Comments: Muscle pain GLUCOSAMINE 06/27/2017 16 - Unknown Comments: Nerve pain MOTRIN (IBUPROFEN) 01/19/2006 2 - Rash PRAVASTATIN 02/19/2013 14 - Other: See Comments Comments: muscle aches AXYZQYG-PNZ-SFT REDUCTASE INHIBIT*10/09/2014 14 - Other: See Comments Comments: myalgia Date Reviewed: 04/13/2024 Reviewed by: Cristela Andersen APRN.BATTERY CONTAINER TESTER ALUMINUM - Fully Assessed Reason for Visit: Appointment [...] - Uncontrolled, E11.65 Insulin: Yes - Insulin [place], Disposable, (BD ULTRA-FINE BENNY PEN NEEDLE) 32 [...] [I10] 10/21/2006 (more content not included)... Normal [facility] CNOVon 04-13-2024 CNOV Office Visit (GENSWS ) -- ABRAHAM GAGE ([id number]) 1940 M Date Time Provider Department 04/13/24 2:15 PM CRISTELA ANDERSEN During your visit today, we recorded the following information about you: Pulse Blood pressure Weight Height 64/minute 116/57 73.2 kg 1.727 m Cristela Andersen APRN.CNP 04/16/2024 8:24 AM Signed HISTORY AND PHYSICAL Abraham Gage : 1940 REFERRING PHYSICIAN: Samson Ragsdale [address] [place] [phone] CHIEF COMPLAINT: Patient presents with: Consult: Colonoscopy [...] 2022 EF of 53%. Abraham follows with [place] [facility]ology had elective cath 06/2023 due to positive stress test. 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 Currently takes plavix. Follows with Dr. Petersen at [place]. Last OV 07/2023 Abraham has a hx of Alzheimers dementia Abraham has undergone prior endoscopy. Last EGD ANDcolonoscopy 04/2017 with At [facility] for anemia Impression: -Findings suggest upper gastritis [...] - Uncontrolled, E11.65 Insulin: Yes CRANBERRY Insulin [place], Disposable, (BD ULTRA-FINE BENNY PEN NEEDLE) 32 [...] Calcium], Glucosami (more content not included)... Normal [facility] 04-12-2024 [facility]RAHAM [facility]AGE ([id number]) 1940 M Date Time Provider Department 04/12/[address] [facility] During your visit today, we recorded [...] - Other: See Comments Comments: muscle aches AHFPJOX-ZKN-AXG REDUCTASE INHIBIT*10/09/2014 14 - Other: See Comments Comments: myalgia Date Reviewed: 10/04/2023 Reviewed by: Neyda Jimenez OCCA - Fully Assessed Reason for Visit: Patient Question [1477] Prescriptions as of 04/12/2024 - blood sugar [...] COMPLEX ORAL) Take by mouth. - Insulin [place], Disposable, (BD ULTRA-FINE BENNY PEN NEEDLE) 32 [...] Unspecified constipation (more content not included)... Normal [facility] CNOVon 03-26-2024 CNOV Office Visit (FAMPWS ) -- ABRAHAM GAGE ([id number]) 1940 M Date Time Provider Department 03/26/24 3:00 PM [facility] During your visit today, we recorded the following information about you: Temperature Pulse Respiration Blood pressure 97.4 degrees 64/minute 20/minute 120/60 Weight 73.9 kg Samson Ragsdale DO 03/29/2024 8:59 AM Signed Patient presents [...] decision making 07/03/2013: AMI (acute myocardial infarction) ([facility]) 05/2014: Carotid atherosclerosis No date: CKD stage G3b/A2, GFR 30-44 and albumin creatinine ratio 30- 299 mg/g ([facility]) Comment: AVOID NEPHROTOXIC MEDICATIONS No date: Diabetes [...] and unspecified (more content not included)... Normal [facility] CBC W Auto Differential pane l (Bld)on 03-19-2024 Basophils (Bld) [#/Vol] 0.04 10*3/uL Normal <0.11 [facility] Comment on above: Order Comment: Speci men Type: BLOOD SPECIMENOrdering Facility: [facility] Address: [address] [place] [address] Performed By: #### 5 7021-8 ####[facility] [id number] [place] [address] [place] Basophils/100 WBC (Bld) 0.4 % Normal [facility] Comment on above: Order Comment: Speci men Type: BLOOD SPECIMENOrdering Facility: [facility] Address: [address] [place] [address] Performed By: #### 5 7021-8 ####[facility]IA [id number] [place] [address] [place] Differential cell count method Nom (Bld) Auto Normal [facility] Comment on above: Order Comment: Speci men Type: BLOOD SPECIMENOrdering Facility: [facility] Address: [address] [place] [address] Performed By: #### 5 7021-8 ####[facility]IA [id number] [place] [address] [place] Eosinophils (Bld) [#/Vol] 0.17 10*3/uL Normal <0.46 [facility] Comment on above: Order Comment: Speci men Type: BLOOD SPECIMENOrdering Facility: [facility] Address: [address] [place] [address] Performed By: #### 5 7021-8 ####[facility] LAB[facility]IA [id number] [place] [address] [place] Eosinophils/100 WBC (Bld) 1.6 % Normal [facility] Comment on above: Order Comment: Speci men Type: BLOOD SPECIMENOrdering Facility: [facility] Address: [address] [place] [address] Performed By: #### 5 7021-8 ####[facility] LABIA [id number] [place] [address] [place] Erythrocyte distribution width (RBC) [Ratio] 15.4 % High 11.5-15.0 [facility] Comment on above: Order Comment: Speci men Type: BLOOD SPECIMENOrdering Facility: [facility] Address: [address] [place] [address] Performed By: #### 5 7021-8 ####[facility] LABIA [id number] [place] [address] [place] Hematocrit (Bld) [Volume fraction] 39.3 % Normal 39.0-51.0 [facility] Comment on above: Order Comment: Speci men Type: BLOOD SPECIMENOrdering Facility: [facility] Address: [address] [place] [address] Performed By: #### 5 7021-8 ####[facility] [id number] [place] [address] [place] Hemoglobin (Bld) [Mass/Vol] 12.5 g/dL Low 13.0-17.0 [facility] Comment on above: Order Comment: Speci men Type: BLOOD SPECIMENOrdering Facility: [facility] Address: [address] [place] [address] Performed By: #### 5 7021-8 ####[facility] LABIA [id number] [place] [address] [place] Immature granulocytes (Bld) [#/Vol] 0.03 10*3/uL Normal <0.10 [facility] Comment on above: Order Comment: Speci men Type: BLOOD SPECIMENOrdering Facility: [facility] Address: [address] [place] [address] Performed By: #### 5 7021-8 ####[facility] LABIA [id number] [place] [address] [place] Immature granulocytes/100 WBC (Bld) 0.3 % Normal [facility] Comment on above: Order Comment: Speci men Type: BLOOD SPECIMENOrdering Facility: [facility] Address: [address] [place] [address] Performed By: #### 5 7021-8 ####[facility] LABCLIA [id number] [place] [address] [place] Lymphocytes (Bld) [#/Vol] 2.01 10*3/uL Normal 1.00-4.00 [facility] Comment on above: Order Comment: Speci men Type: BLOOD SPECIMENOrdering Facility: [facility] Address: [address] [place] [address] Performed By: #### 5 7021-8 ####[facility] LABCLIA [id number] [place] [address] [place] Lymphocytes/100 WBC (Bld) 18.9 % Normal [facility] Comment on above: Order Comment: Speci men Type: BLOOD SPECIMENOrdering Facility: [facility] Address: [address] [place] [address] Performed By: #### 5 7021-8 ####[facility] LABCLIA [id number] [place] [address] [place] MCH (RBC) [Entitic mass] 28.4 pg Normal 26.0-34.0 [facility] Comment on above: Order Comment: Speci men Type: BLOOD SPECIMENOrdering Facility: [facility] Address: [address] [place] [address] Performed By: #### 5 7021-8 ####[facility] LABCLIA [id number] [place] [address] [place] MCHC (RBC) [Mass/Vol] 31.8 g/dL Normal 30.5-36.0 [facility] Comment on above: Order Comment: Speci men Type: BLOOD SPECIMENOrdering Facility: [facility] Address: [address] [place] [address] Performed By: #### 5 7021-8 ####[facility] LAB[facility]IA [id number] [place] [address] [place] MCV (RBC) [Entitic vol] 89.3 fL Normal 80.0-100.0 [facility] Comment on above: Order Comment: Speci men Type: BLOOD SPECIMENOrdering Facility: [facility] Address: [address] [place] [address] Performed By: #### 5 7021-8 ####[facility] LAB[facility]IA [id number] [place] [address] [place] Monocytes (Bld) [#/Vol] 0.89 10*3/uL High <0.87 [facility] Comment on above: Order Comment: Speci men Type: BLOOD SPECIMENOrdering Facility: [facility] Address: [address] [place] [address] Performed By: #### 5 7021-8 ####[facility] LABCLIA [id number] [place] [address] [place] Monocytes/100 WBC (Bld) 8.4 % Normal [facility] Comment on above: Order Comment: Speci men Type: BLOOD SPECIMENOrdering Facility: [facility] Address: [address] [place] [address] Performed By: #### 5 7021-8 ####[facility] LABCLIA [id number] [place] [address] [place] Neutrophils (Bld) [#/Vol] 7.49 10*3/uL Normal 1.45-7.50 [facility] Comment on above: Order Comment: Speci men Type: BLOOD SPECIMENOrdering Facility: [facility] Address: [address] [place] [address] Performed By: #### 5 7021-8 ####[facility] LABCLIA [id number] [address] [id number] [address] [place] Neutrophils/100 WBC (Bld) 70.4 % Normal [facility] Comment on above: Order Comment: Speci men Type: BLOOD SPECIMENOrdering Facility: [facility] Address: [address] [place] [address] Performed By: #### 5 7021-8 ####[facility] LABCLIA [id number] [place] [address] [place] Nucleated RBC (Bld) [#/Vol] 10*3/uL Normal <0.01 [facility] Comment on above: Order Comment: Speci men Type: BLOOD SPECIMENOrdering Facility: [facility] Address: [address] [place] [address] Performed By: #### 5 7021-8 ####[facility] LAB[facility]IA [id number] [place] [address] [place] Nucleated RBC/100 WBC (Bld) [Ratio] 0.0 /100 WBC Normal [facility] Comment on above: Order Comment: Speci men Type: BLOOD SPECIMENOrdering Facility: [facility] Address: [address] [place] [address] Performed By: #### 5 7021-8 ####[facility] LABCLIA [id number] [place] [address] [place] Platelet mean volume (Bld) [Entitic vol] 10.0 fL Normal 9.0-12.7 [facility] Comment on above: Order Comment: Speci men Type: BLOOD SPECIMENOrdering Facility: [facility] Address: [address] [place] [address] Performed By: #### 5 7021-8 ####[facility] LABCLIA [id number] [place] [address] [place] Platelets (Bld) [#/Vol] 255 10*3/uL Normal 150-400 [facility] Comment on above: Order Comment: Speci men Type: BLOOD SPECIMENOrdering Facility: [facility] Address: [address] [place] [address] Performed By: #### 5 7021-8 ####[facility] LABCLIA [id number] [place] [id number] [place] RBC (Bld) [#/Vol] 4.40 10*6/uL Normal 4.20-6.00 [facility] Comment on above: Order Comment: Speci men Type: BLOOD SPECIMENOrdering Facility: [facility] Address: [address] [place] [address] Performed By: #### 5 7021-8 ####[facility] LABCLIA [id number] [place] [address] [place] WBC (Bld) [#/Vol] 10.63 10*3/uL Normal 3.70-11.00 [facility] Comment on above: Order Comment: Speci men Type: BLOOD SPECIMENOrdering Facility: [facility] Address: [address] [place] [address] Performed By: #### 5 7021-8 ####[facility] LABIA [id number] [place] [address] [place] Comprehensive metabolic 2000 panelon 03-19-2024 Albumin [Mass/Vol] 3.9 g/dL Normal 3.9-4.9 [facility] Comment on above: Order Comment: Speci men Type: BLOOD SPECIMENOrdering Facility: [facility] Address: [address] [place] [address] Performed By: #### 2 4323-8, 41394-9 ####[facility] LABIA [id number] [place] [address] [place] ALP [Catalytic activity/Vol] 102 U/L Normal 38-113 [facility] Comment on above: Order Comment: Speci men Type: BLOOD SPECIMENOrdering Facility: [facility] Address: [address] [place] [address] Performed By: #### 2 4323-8, 06927-2 ####[facility] LABCLIA [id number] [address] [address] [place] ALT [Catalytic activity/Vol] 10 U/L Normal 10-54 [facility] Comment on above: Order Comment: Speci men Type: BLOOD SPECIMENOrdering Facility: [facility] Address: [address] [place] [address] Performed By: #### 2 4323-8, 85772-5 ####[facility] LABCLIA [id number] [place] [id number] [place] Anion gap [Moles/Vol] 12 mmol/L Normal 8-15 [facility] Comment on above: Order Comment: Speci men Type: BLOOD SPECIMENOrdering Facility: [facility] Address: [address] [place] [address] Performed By: #### 2 4323-8, 57962-1 ####[facility] LABCLIA [id number] [place] [address] [place] AST [Catalytic activity/Vol] 16 U/L Normal 14-40 [facility] Comment on above: Order Comment: Speci men Type: BLOOD SPECIMENOrdering Facility: [facility] Address: [address] [place] [address] Performed By: #### 2 4323-8, 99303-4 ####[facility] LABCLIA [id number] [place] [address] [place] Bilirubin [Mass/Vol] 0.4 mg/dL Normal 0.2-1.3 [facility] Comment on above: Order Comment: Speci men Type: BLOOD SPECIMENOrdering Facility: [facility] Address: [address] [place] [address] Performed By: #### 2 4323-8, 01389-9 ####[facility] LABCLIA [id number] [place] [id number] [place] Calcium [Mass/Vol] 9.7 mg/dL Normal 8.5-10.2 [facility] Comment on above: Order Comment: Speci men Type: BLOOD SPECIMENOrdering Facility: [facility] Address: [address] [place] [address] Performed By: #### 2 4323-8, 74321-9 ####[facility] LABCLIA [id number] [place] [address] [place] Chloride [Moles/Vol] 105 mmol/L Normal 98-107 [facility] Comment on above: Order Comment: Speci men Type: BLOOD SPECIMENOrdering Facility: [facility] Address: [address] [place] [address] Performed By: #### 2 4323-8, 26520-6 ####[facility] LABCLIA [id number] [place] [address] [place] CO2 [Moles/Vol] 25 mmol/L Normal 22-30 [facility] Comment on above: Order Comment: Speci men Type: BLOOD SPECIMENOrdering Facility: [facility] Address: [address] [place] [address] Performed By: #### 2 4323-8, 60211-0 ####[facility] LABCLIA [id number] [place] [address] [place] Creatinine [Mass/Vol] 2.05 mg/dL High 0.73-1.22 [facility] Comment on above: Order Comment: Speci men Type: BLOOD SPECIMENOrdering Facility: [facility] Address: [address] [place] [address] Performed By: #### 2 4323-8, 06849-9 ####[facility] LABCLIA [id number] [place] [address] [place] Creatinine and Glomerular filtration rate.predicted panel (S/P/Bld) 32 mL/min/1.73m??? Low >=60 [facility] Comment on above: Order Comment: Speci men Type: BLOOD SPECIMENOrdering Facility: [facility] Address: [address] [place] [address] Result Comment: Jeanette mated Glomerular Filtration Rate [...] actual GFR. Performed By: #### 2 4323-8, 30864-5 ####[facility] [id number] [place] [address] [place] Glucose [Mass/Vol] 83 mg/dL Normal 74-99 [facility] Comment on above: Order Comment: Cyndy sinha Type: BLOOD SPECIMENOrdering Facility: [facility] Address: [address] [place] [address] Result Comment: The [place] Diabetes Association (ADA) provides guidance for cutoff [...] Standards of Medical Care in Diabetes 2016, [place] [employer]. Diabetes Care. 2016.39(Suppl 1). Performed By: #### 2 4323-8, 99198-0 ####[facility] [id number] [place] [id number] [place] Potassium [Moles/Vol] 4.3 mmol/L Normal 3.7-5.1 [facility] Comment on above: Order Comment: Cyndy sinha Type: BLOOD SPECIMENOrdering Facility: [facility] Address: [address] [place] [id number] Performed By: #### 2 4323-8, 30383-2 ####[facility] LABCLIA [id number] [address] [address] [place] Protein [Mass/Vol] 6.8 g/dL Normal 6.3-8.0 [facility] Comment on above: Order Comment: Speci men Type: BLOOD SPECIMENOrdering Facility: [facility] Address: [address] [place] [address] Performed By: #### 2 4323-8, 35561-3 ####[facility] LABIA [id number] [place] [address] [place] Sodium [Moles/Vol] 142 mmol/L Normal 136-144 [facility] Comment on above: Order Comment: Speci men Type: BLOOD SPECIMENOrdering Facility: [facility] Address: [address] [place] [address] Performed By: #### 2 4323-8, 72702-2 ####[facility] LABIA [id number] [place] [address] [place] Urea nitrogen [Mass/Vol] 25 mg/dL High 9-24 [facility] Comment on above: Order Comment: Speci men Type: BLOOD SPECIMENOrdering Facility: [facility] Address: [address] [place] [address] Performed By: #### 2 4323-8, 30937-0 ####[facility] LABIA [id number] [place] [id number] [place] HbA1c (Bld)on 03-19-2024 Average glucose Estimated from glycated hemoglobin (Bld) [Mass/Vol] 126 mg/dL Normal [facility] Comment on above: Order Comment: Speci men Type: BLOOD SPECIMENOrdering Facility: [facility] Address: [address] [place] [address] Result Comment: eAG: (Estimated average glucose) is a calculated value from HgbA1c and is patient relations representative of the average blood glucose level in the last 2-3 month period. Performed By: #### 5 5454-3 ####[facility] LABCLIA [id number] [place] [address] [place] HbA1c (Bld) [Mass fraction] 6.0 % High 4.3-5.6 [facility] Comment on above: Order Comment: Cyndy sinha Type: BLOOD SPECIMENOrdering Facility: [facility] Address: [address] [place] [address] Result Comment: Amer [place] Diabetes Association guidelines indicate that patients with HgbA1c in the range 5.7-6.4% are at increased risk for development of diabetes, and intervention by lifestyle modification may be beneficial. HgbA1c greater or equal to 6.5% is considered diagnostic of diabetes. Performed By: #### 5 5454-3 ####[facility] LABCLIA [id number] [place] [address] [place] Lipid 1996 panelon 4 Cholesterol [Mass/Vol] 215 mg/dL High <200 [facility] Comment on above: Order Comment: Cyndy sinha Type: BLOOD SPECIMENOrdering Facility: [facility] Address: [address] [place] [address] Result Comment: <200 mg/dL, Desirable 200-239 mg/dL, Borderline high >239 mg/dL, High Performed By: #### 2 4323-8, 02211-2 ####[facility] LABCLIA [id number] [address] [place] Cholesterol in HDL [Mass/Vol] 35 mg/dL Low >39 [facility] Comment on above: Order Comment: Cyndy sinha Type: BLOOD SPECIMENOrdering Facility: [facility] Address: [address] [place] [address] Result Comment: 40-5 9 mg/dL, Acceptable >59 mg/dL, High: Negative risk factor for coronary heart disease <40 mg/dL, Low: Positive risk factor for coronary heart disease Performed By: #### 2 4323-8, 59769-5 ####[facility] LABCLIA [id number] [place] [address] [place] Cholesterol in LDL [Mass/Vol] 152 mg/dL High <100 [facility] Comment on above: Order Comment: Speci men Type: BLOOD SPECIMENOrdering Facility: [facility] Address: [address] [place] [address] Result Comment: <100 mg/dL, Optimal 100-129 mg/dL, Near optimal/above optimal 130-159 mg/dL, Borderline high 160-189 mg/dL, High >189 mg/dL, Very high Secondary prevention optimal LDL Cholesterol levels are recommended to be < 70 mg/dL Performed By: #### 2 4323-8, ####[facility] LABCLIA [id number] [place] [address] [place] Cholesterol in LDL/Cholesterol in HDL [Mass ratio] 4.34 {ratio} High <2.54 [facility] Comment on above: Order Comment: Speci men Type: BLOOD SPECIMENOrdering Facility: [facility] Address: [address] [place] [address] Result Comment: Alla patiño: 1. National Cholesterol Education Program ATP III Guideline At-A-Glance Quick Desk Reference: National Heart, Lung, and Blood [place]. National Institutes of Health. 2001: NIH Publication No. 01-3305. 2. An International Atherosclerosis Society position paper: global recommendations for the management of dyslipidemia: executive summary, Atherosclerosis. 2014: 232(2):410-413. Performed By: #### 2 4323-8, ####[facility] LABCLIA [id number] [place] [address] [place] Cholesterol in VLDL [Mass/Vol] 28 mg/dL Normal <30 [facility] Comment on above: Order Comment: Speci men Type: BLOOD SPECIMENOrdering Facility: [facility] Address: [address] [place] [address] Performed By: #### 2 4323-8, 46713-7 ####[facility] LABCLIA [id number] [place] [address] [place] Cholesterol non HDL [Mass/Vol] 180 mg/dL High <130 [facility] Comment on above: Order Comment: Speci men Type: BLOOD SPECIMENOrdering Facility: [facility] Address: [address] [place] [address] Result Comment: <130 mg/dL, Optimal 130-159 mg/dL, Near optimal/above optimal 160-189 mg/dL, Borderline high 190-219 mg/dL, High >219 mg/dL, Very high Secondary prevention optimal non HDL Cholesterol levels are recommended to be <100 mg/dL Performed By: #### 2 4323-8, 56911-4 ####[facility] LABCLIA [id number] [place] [address] [place] Cholesterol.total/Chol esterol in HDL [Mass ratio] 6.14 {ratio} High <5.10 [facility] Comment on above: Order Comment: Speci men Type: BLOOD SPECIMENOrdering Facility: [facility] Address: [address] [place] [address] Performed By: #### 2 4323-8, 92506-2 ####[facility] LABCLIA [id number] [place] [address] [place] FASTING TIME 12 hrs Normal [facility] Comment on above: Order Comment: Speci men Type: BLOOD SPECIMENOrdering Facility: [facility] Address: [address] [place] [address] Performed By: #### 2 4323-8, 70290-0 ####[facility] LABCLIA [id number] [place] [address] [place] Triglyceride [Mass/Vol] 138 mg/dL Normal <150 [facility] Comment on above: Order Comment: Speci men Type: BLOOD SPECIMENOrdering Facility: [facility] Address: [address] [place] [address] Result Comment: <150 mg/dL, Normal 150-199 mg/dL, Borderline high 200-499 mg/dL, High >499 mg/dL, Very high Performed By: #### 2 4323-8, 85794-3 ####[facility] LABGARY [id number] [place] [id number] [place] CNPKeisha 03-09-2024 CNPN Telephone (FAMPWS) -- ABRAHAM GAGE ([id number]) 1940 M Date Time Provider Department 03/09/24 [facility] During your visit today, we recorded the following information about you: Caridad Delong MA 03/09/2024 12:18 PM Signed Pt requesting lab orders prior to upcoming appt with J on 03/26 ROSS Esteves Alyson, APRN.JAIRON 03/09/2024 [...] - Other: See Comments Comments: muscle aches [id number] REDUCTASE INHIBIT*10/09/2014 14 - Other: See Comments Comments: myalgia Date Reviewed: 10/04/2023 Reviewed by: Neyda Jimenez, ASYA - Fully Assessed Reason for Visit: Orders [681] Primary Visit Diagnosis: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 - Insulin [place], Disposable, (BD ULTRA-FINE BENNY PEN NEEDLE) 32 [...] by mouth once daily. - COMPOUNDED PRESCRIPTION kyic Cholesterol 104 - cholecalciferol (VITAMIN D3) 5,000 [...] eptifibatide, t (more content not included)... Normal [facility] .Auto Diffon 05-28-2023 Basophil, Absolute 0.0 10 3/mcL Normal 0.0-0.3 [facility] ([place] Comment on above: Performed By: #### A DIFF, ANEU, GFR, BMP, CBC #### [address] [address] Basophils/100 WBC (Bld) 0.2 % Normal 0.0-2.5 [facility] ([place]) Comment on above: Performed By: #### A DIFF, ANEU, GFR, BMP, CBC #### [address] [address] Eosinophil, Absolute 0.1 10 3/mcL Normal 0.0-0.7 [facility] ([place]) Comment on above: Performed By: #### A DIFF, ANEU, GFR, BMP, CBC #### [address] [address] Eosinophils/100 WBC (Bld) 0.7 % Normal 0.0-6.0 [facility] ([place]) Comment on above: Performed By: #### A DIFF, ANEU, GFR, BMP, CBC #### [address] [address] Lymphocyte, Absolute 1.8 10 3/mcL Normal 0.9-4.3 [facility] ([place]) Comment on above: Performed By: #### A DIFF, ANEU, GFR, BMP, CBC #### [address] [address] Lymphocytes/100 WBC (Bld) 14.6 % Low 20.0-40.0 [facility] ([place]) Comment on above: Performed By: #### A DIFF, ANEU, GFR, BMP, CBC #### [address] [address] Monocyte, Absolute 1.1 10 3/mcL Normal 0.1-1.4 [facility] ([place] Comment on above: Performed By: #### A DIFF, ANEU, GFR, BMP, CBC #### [address] [address] Monocytes/100 WBC (Bld) 9.6 % Normal 2.0-13.0 [facility] ([place]) Comment on above: Performed By: #### A DIFF, ANEU, GFR, BMP, CBC #### [address] [address] Neutrophils/100 WBC (Bld) 74.9 % Normal 50.0-75.0 [facility] ([place] Comment on above: Performed By: #### A DIFF, ANEU, GFR, BMP, CBC #### [address] [address] .GFRon 05-28-2023 GFR Non- 38 ml/min/1.73sqm Normal [facility] ([place]) Comment on above: Result Comment: GFR Population [...] A DIFF, ANEU, GFR, BMP, CBC #### [address] [address] GFR 46 ml/min/1.73sqm Normal [facility] ([place]) Comment on above: Result Comment: GFR Population [...] A DIFF, ANEU, GFR, BMP, CBC #### [address] [address] .NEUABSon 05-28-2023 Neutrophil, Absolute 9.0 10 3/mcL High 2.3-8.1 [facility] ([place] Comment on above: Performed By: #### A DIFF, ANEU, GFR, BMP, CBC #### [address] [address] BMPon 05-28-2023 BUN/Creatinine Ratio 12.6 ratio Normal 10.0-22.0 [facility] ([place] Comment on above: Performed By: #### A DIFF, ANEU, GFR, BMP, CBC #### [address] [address] Calcium [Mass/Vol] 8.4 mg/dL Low 8.7-10.4 [facility] ([place]) Comment on above: Performed By: #### A DIFF, ANEU, GFR, BMP, CBC #### [address] [address] Chloride [Moles/Vol] 111 mmol/L High 98-110 [facility] ([place]) Comment on above: Performed By: #### A DIFF, ANEU, GFR, BMP, CBC #### [address] [address] CO2 [Moles/Vol] 27 mmol/L Normal 22-32 [facility] ([place]) Comment on above: Performed By: #### A DIFF, ANEU, GFR, BMP, CBC #### [address] [address] Creatinine [Mass/Vol] 1.75 mg/dL High 0.60-1.40 [facility] ([place]) Comment on above: Performed By: #### A DIFF, ANEU, GFR, BMP, CBC #### [address] [address] Electrolyte Balance 5.0 mEq/L Normal 4.0-15.0 [facility] ([place]) Comment on above: Performed By: #### A DIFF, ANEU, GFR, BMP, CBC #### [address] [address] Glucose [Mass/Vol] 121 mg/dL High 82-115 [facility] ([place] Comment on above: Performed By: #### A DIFF, ANEU, GFR, BMP, CBC #### [place] [address] Potassium [Moles/Vol] 4.2 mmol/L Normal 3.5-5.0 [facility] ([place]) Comment on above: Performed By: #### A DIFF, ANEU, GFR, BMP, CBC #### [place] [address] Sodium [Moles/Vol] 143 mmol/L Normal 136-145 [facility] ([place] Comment on above: Performed By: #### A DIFF, ANEU, GFR, BMP, CBC #### [place] [address] Urea nitrogen [Mass/Vol] 22.0 mg/dL Normal 8.0-22.0 [facility] ([place]) Comment on above: Performed By: #### A DIFF, ANEU, GFR, BMP, CBC #### [place] [address] CBCon 05-28-2023 Erythrocyte distribution width (RBC) [Ratio] 14.9 % Normal 11.5-15.5 [facility] ([place] Comment on above: Performed By: #### A DIFF, ANEU, GFR, BMP, CBC #### [place] [address] Hematocrit (Bld) [Volume fraction] 27.7 % Low 40.0-52.0 [facility] ([place] Comment on above: Performed By: #### A DIFF, ANEU, GFR, BMP, CBC #### [place] [address] Hgb 9.0 G/dL Low 13.0-17.5 [facility] ([place] Comment on above: Performed By: #### A DIFF, ANEU, GFR, BMP, CBC #### [place] [address] MCH (RBC) [Entitic mass] 29.0 pg Normal 27.0-33.0 [facility] ([place] Comment on above: Performed By: #### A DIFF, ANEU, GFR, BMP, CBC #### [place] [address] MCHC 32.6 G/dL Normal 32.0-36.0 [facility] ([place] Comment on above: Performed By: #### A DIFF, ANEU, GFR, BMP, CBC #### [place] [address] MCV (RBC) [Entitic vol] 89.2 fL Normal 81.0-100.0 [facility] ([place] Comment on above: Performed By: #### A DIFF, ANEU, GFR, BMP, CBC #### [place] [address] Platelet 205 10 3/mcL Normal 150-450 [facility] ([place] Comment on above: Performed By: #### A DIFF, ANEU, GFR, BMP, CBC #### [place] [address] Platelet mean volume (Bld) [Entitic vol] 8.1 fL Normal 6.4-10.5 [facility] ([place] Comment on above: Performed By: #### A DIFF, ANEU, GFR, BMP, CBC #### [place] [address] RBC 3.11 10 6/mcL Low 4.50-6.00 [facility] ([place] Comment on above: Performed By: #### A DIFF, ANEU, GFR, BMP, CBC #### [place] [address] WBC 12.0 10 3/mcL High 4.5-10.8 [facility] ([place] Comment on above: Performed By: #### A DIFF, ANEU, GFR, BMP, CBC #### [place] [address] LABORATORYOrdered By: SYSTEM SYSTEM on 05-28-2023 Basophils [...] Invalid Interpretation Code 0.60 - 1.40 mg/dL AH ADM SS Electrolyte Balance 5.0 mEq/L Invalid Interpretation Code 4.0 - 15.0 mEq/L ADM SS Eosinophils (Bld) [#/Vol] 0.1 103/mcL Invalid Interpretation Code 0.0 - 0.7 10^3/mcL Workflow SS Eosinophils/100 WBC (Bld) 0.7 % Invalid Interpretation Code 0.0 - 6.0 % Workflow SS Erythrocyte distribution width (RBC) [Ratio] 14.9 % Invalid Interpretation Code 11.5 - 15.5 % Workflow SS GFR/1.73 sq M.predicted among blacks MDRD (S/P/Bld) [Vol rate/Area] 46 ml/min/1.73sqm Invalid Interpretation Code ADM SS Comment [...] Invalid Interpretation Code 82 - 115 mg/dL AH ADM SS Hematocrit (Bld) [Volume fraction] 27.7 % Invalid Interpretation Code 40.0 - 52.0 % AH Workflow SS Hemoglobin (Bld) [Mass/Vol] 9.0 G/dL [...] AH Workflow SS MCV (RBC) [Entitic vol] 89.2 fL Invalid Interpretation Code 81.0 - 100.0 fL AH Workflow SS Monocytes (Bld) [#/Vol] 1.1 103/mcL [...] fL AH Workflow SS Platelets (Bld) [#/Vol] 205 103/mcL [...] Invalid Interpretation Code 10.0 - 22.0 ratio ADM SS WBC (Bld) [#/Vol] 12.0 103/mcL Invalid Interpretation Code 4.5 - 10.8 10^3/mcL Workflow SS MGon 05-28-2023 Magnesium [Mass/Vol] 1.8 mg/dL Normal 1.6-2.4 [facility] ([place] Comment on above: Performed By: #### A DIFF, ANEU, GFR, BMP, CBC #### [address] [address] .Auto Diffon 05-27-2023 Basophil, Absolute 0.0 10 3/mcL Normal 0.0-0.3 [facility] ([place] Comment on above: Performed By: #### M G, ADIFF, BMP, GFR, ANEU, CBC #### [address] [address] Basophils/100 WBC (Bld) 0.2 % Normal 0.0-2.5 [facility] ([place]) Comment on above: Performed By: #### M G, ADIFF, BMP, GFR, ANEU, CBC #### [address] [address] Eosinophil, Absolute 0.3 10 3/mcL Normal 0.0-0.7 [facility] ([place] Comment on above: Performed By: #### M G, ADIFF, BMP, GFR, ANEU, CBC #### [address] [address] Eosinophils/100 WBC (Bld) 2.4 % Normal 0.0-6.0 [facility] ([place] Comment on above: Performed By: #### M G, ADIFF, BMP, GFR, ANEU, CBC #### [address] [address] Lymphocyte, Absolute 2.5 10 3/mcL Normal 0.9-4.3 [facility] ([place]) Comment on above: Performed By: #### M G, ADIFF, BMP, GFR, ANEU, CBC #### [address] [address] Lymphocytes/100 WBC (Bld) 23.0 % Normal 20.0-40.0 [facility] ([place] Comment on above: Performed By: #### M G, ADIFF, BMP, GFR, ANEU, CBC #### [address] [address] Monocyte, Absolute 1.0 10 3/mcL Normal 0.1-1.4 [facility] ([place] Comment on above: Performed By: #### M G, ADIFF, BMP, GFR, ANEU, CBC #### [address] [address] Monocytes/100 WBC (Bld) 9.2 % Normal 2.0-13.0 [facility] ([place] Comment on above: Performed By: #### M G, ADIFF, BMP, GFR, ANEU, CBC #### [address] [address] Neutrophils/100 WBC (Bld) 65.2 % Normal 50.0-75.0 [facility] ([place]) Comment on above: Performed By: #### M G, ADIFF, BMP, GFR, ANEU, CBC #### [address] [address] .GFRon 05-27-2023 GFR 40 ml/min/1.73sqm Normal [facility] ([place]) Comment on above: Result Comment: GFR Population [...] A DIFF, ANEU, GFR, BMP, CBC #### [address] [address] GFR Non- 33 ml/min/1.73sqm Normal [facility] ([place] Comment on above: Result Comment: GFR Population [...] A DIFF, ANEU, GFR, BMP, CBC #### [address] [address] .NEUABSon 05-27-2023 Neutrophil, Absolute 7.2 10 3/mcL Normal 2.3-8.1 [facility] ([place]) Comment on above: Performed By: #### M G, ADIFF, BMP, GFR, ANEU, CBC #### [address] [address] BMPon 05-27-2023 BUN/Creatinine Ratio 11.3 ratio Normal 10.0-22.0 [facility] ([place]) Comment on above: Performed By: #### A DIFF, ANEU, GFR, BMP, CBC #### [address] [address] Calcium [Mass/Vol] 8.6 mg/dL Low 8.7-10.4 [facility] ([place]) Comment on above: Performed By: #### A DIFF, ANEU, GFR, BMP, CBC #### [address] [address] Chloride [Moles/Vol] 110 mmol/L Normal 98-110 [facility] ([place] Comment on above: Performed By: #### A DIFF, ANEU, GFR, BMP, CBC #### [address] [address] CO2 [Moles/Vol] 30 mmol/L Normal 22-32 [facility] ([place] Comment on above: Performed By: #### A DIFF, ANEU, GFR, BMP, CBC #### [address] [address] Creatinine [Mass/Vol] 1.94 mg/dL High 0.60-1.40 [facility] ([place]) Comment on above: Performed By: #### A DIFF, ANEU, GFR, BMP, CBC #### [address] [address] Electrolyte Balance 2.0 mEq/L Low 4.0-15.0 [facility] ([place]) Comment on above: Performed By: #### A DIFF, ANEU, GFR, BMP, CBC #### [address] [address] Glucose [Mass/Vol] 105 mg/dL Normal 82-115 [facility] ([place] Comment on above: Performed By: #### A DIFF, ANEU, GFR, BMP, CBC #### [address] [address] Potassium [Moles/Vol] 4.1 mmol/L Normal 3.5-5.0 [facility] ([place] Comment on above: Performed By: #### A DIFF, ANEU, GFR, BMP, CBC #### [address] [address] Sodium [Moles/Vol] 142 mmol/L Normal 136-145 [facility] ([place] Comment on above: Performed By: #### A DIFF, ANEU, GFR, BMP, CBC #### [place] [address] Urea nitrogen [Mass/Vol] 22.0 mg/dL Normal 8.0-22.0 [facility] ([place] Comment on above: Performed By: #### A DIFF, ANEU, GFR, BMP, CBC #### [place] [address] CBCon 05-27-2023 Erythrocyte distribution width (RBC) [Ratio] 15.4 % Normal 11.5-15.5 [facility] ([place] Comment on above: Performed By: #### M G, ADIFF, BMP, GFR, ANEU, CBC #### [place] [address] Hematocrit (Bld) [Volume fraction] 33.3 % Low 40.0-52.0 [facility] ([place] Comment on above: Performed By: #### M G, ADIFF, BMP, GFR, ANEU, CBC #### [place] [address] Hgb 10.9 G/dL Low 13.0-17.5 [facility] ([place] Comment on above: Performed By: #### M G, ADIFF, BMP, GFR, ANEU, CBC #### [place] [address] MCH (RBC) [Entitic mass] 29.2 pg Normal 27.0-33.0 [facility] ([place] Comment on above: Performed By: #### M G, ADIFF, BMP, GFR, ANEU, CBC #### [place] [address] MCHC 32.6 G/dL Normal 32.0-36.0 [facility] ([place] Comment on above: Performed By: #### M G, ADIFF, BMP, GFR, ANEU, CBC #### [place] [address] MCV (RBC) [Entitic vol] 89.6 fL Normal 81.0-100.0 [facility] ([place] Comment on above: Performed By: #### M G, ADIFF, BMP, GFR, ANEU, CBC #### [place] [id number] [place] [address] Platelet 228 10 3/mcL Normal 150-450 [facility] ([place]) Comment on above: Performed By: #### M G, ADIFF, BMP, GFR, ANEU, CBC #### [facility] [address] [place] [address] Platelet mean volume (Bld) [Entitic vol] 7.9 fL Normal 6.4-10.5 [facility] ([place] Comment on above: Performed By: #### M G, ADIFF, BMP, GFR, ANEU, CBC #### [address] [address] RBC 3.72 10 6/mcL Low 4.50-6.00 [facility] ([place] Comment on above: Performed By: #### M G, ADIFF, BMP, GFR, ANEU, CBC #### [address] [address] WBC 11.1 10 3/mcL High 4.5-10.8 [facility] ([place] Comment on above: Performed By: #### M G, ADIFF, BMP, GFR, ANEU, CBC #### [address] [address] LABORATORYOrdered By: Milena Mccain on 05-27-2023 Cholesterol [...] 2.5 % AH Workflow SS Calcium [Mass/Vol] 8.6 mg/dL Invalid Interpretation Code 8.7 - 10.4 mg/dL ADM SS Chloride [Moles/Vol] 110 mmol/L Invalid Interpretation Code 98 - 110 mEq/L AH ADM SS CO2 [Moles/Vol] 30 mmol/L Invalid Interpretation Code 22 - 32 mEq/L ADM SS Creatinine [Mass/Vol] 1.94 mg/dL Invalid Interpretation Code 0.60 - 1.40 mg/dL AH ADM SS Electrolyte Balance 2.0 mEq/L Invalid Interpretation Code 4.0 - 15.0 mEq/L AH ADM SS Eosinophils (Bld) [#/Vol] 0.3 103/mcL Invalid Interpretation Code 0.0 - 0.7 10^3/mcL Workflow SS Eosinophils/100 WBC (Bld) 2.4 % Invalid Interpretation Code 0.0 - 6.0 % Workflow SS Erythrocyte distribution width (RBC) [Ratio] 15.4 % Invalid Interpretation Code 11.5 - 15.5 % Workflow SS GFR/1.73 sq M.predicted among blacks MDRD (S/P/Bld) [Vol rate/Area] 40 ml/min/1.73sqm Invalid Interpretation Code AH ADM SS [...] [Vol rate/Area] 33 ml/min/1.73sqm Invalid Interpretation Code AH ADM SS [...] Invalid Interpretation Code 82 - 115 mg/dL AH ADM SS Hematocrit (Bld) [Volume fraction] 33.3 % Invalid [...] mg/dL ADM SS MCH (RBC) [Entitic mass] 29.2 pg Invalid Interpretation Code 27.0 - 33.0 pg AH Workflow SS MCHC 32.6 G/dL Invalid Interpretation Code 32.0 - 36.0 G/dL AH Workflow SS MCV (RBC) [Entitic vol] 89.6 [...] 10.5 fL Workflow SS Platelets (Bld) [#/Vol] 228 103/mcL Invalid Interpretation Code 150 - 450 10^3/mcL AH Workflow SS Potassium [Moles/Vol] 4.1 mmol/L Invalid Interpretation Code 3.5 - 5.0 mEq/L AH ADM SS RBC (Bld) [#/Vol] 3.72 106/mcL Invalid Interpretation Code 4.50 - 6.00 10^6/mcL AH Workflow SS Sodium [Moles/Vol] 142 mmol/L Invalid Interpretation Code 136 - 145 mEq/L AH ADM SS Urea nitrogen [Mass/Vol] 22.0 mg/dL Invalid Interpretation Code 8.0 - 22.0 mg/dL AH ADM SS Urea nitrogen/Creatinine [Mass ratio] 11.3 ratio Invalid Interpretation Code 10.0 - 22.0 ratio AH ADM SS WBC (Bld) [#/Vol] 11.1 103/mcL Invalid Interpretation Code 4.5 - 10.8 10^3/mcL Workflow SS LIPIDon 05-27-2023 Cholesterol [Mass/Vol] 163 mg/dL Normal 50-199 [facility] ([place]) Comment on above: Order Comment: add t o existing specimen Result Comment: Chol esterol Reference Interval: Less than 200 Desirable 200-239 Borderline high risk 240 and above High risk Performed By: #### L IPID #### [address] [address] Cholesterol in HDL [Mass/Vol] 31 mg/dL Low 40-59 [facility] ([place] Comment on above: Order Comment: add t o existing specimen Performed By: #### L IPID #### [address] [address] Cholesterol in LDL [Mass/Vol] 100 mg/dL Normal 0-129 [facility] ([place]) Comment on above: Order Comment: add t o existing specimen Performed By: #### L IPID #### [address] [address] Triglyceride [Mass/Vol] 160 mg/dL High 3-149 [facility] ([place] Comment on above: Order Comment: add t o existing specimen Performed By: #### L IPID #### [address] [address] MGon 05-27-2023 Magnesium [Mass/Vol] 2.1 mg/dL Normal 1.6-2.4 [facility] ([place] Comment on above: Performed By: #### A DIFF, ANEU, GFR, BMP, CBC #### [address] [address] .Auto Diffon 05-26-2023 Basophil, Absolute 0.0 10 3/mcL Normal 0.0-0.3 [facility] ([place] Comment on above: Performed By: #### A DIFF, ANEU, GFR, BMP, CBC #### [address] [address] Basophils/100 WBC (Bld) 0.3 % Normal 0.0-2.5 [facility] ([place] Comment on above: Performed By: #### A DIFF, ANEU, GFR, BMP, CBC #### [address] [address] Eosinophil, Absolute 0.2 10 3/mcL Normal 0.0-0.7 [facility] ([place] Comment on above: Performed By: #### A DIFF, ANEU, GFR, BMP, CBC #### [address] [address] Eosinophils/100 WBC (Bld) 2.0 % Normal 0.0-6.0 [facility] ([place] Comment on above: Performed By: #### A DIFF, ANEU, GFR, BMP, CBC #### [address] [address] Lymphocyte, Absolute 1.7 10 3/mcL Normal 0.9-4.3 [facility] ([place] Comment on above: Performed By: #### A DIFF, ANEU, GFR, BMP, CBC #### [address] [address] Lymphocytes/100 WBC (Bld) 18.5 % Low 20.0-40.0 [facility] ([place] Comment on above: Performed By: #### A DIFF, ANEU, GFR, BMP, CBC #### [address] [address] Monocyte, Absolute 0.9 10 3/mcL Normal 0.1-1.4 [facility] ([place] Comment on above: Performed By: #### A DIFF, ANEU, GFR, BMP, CBC #### [address] [address] Monocytes/100 WBC (Bld) 9.5 % Normal 2.0-13.0 [facility] ([place] Comment on above: Performed By: #### A DIFF, ANEU, GFR, BMP, CBC #### [address] [address] Neutrophils/100 WBC (Bld) 69.7 % Normal 50.0-75.0 [facility] ([place] Comment on above: Performed By: #### A DIFF, ANEU, GFR, BMP, CBC #### [address] [address] .GFRon 05-26-2023 GFR 38 ml/min/1.73sqm Normal [facility] ([place]) Comment on above: Result Comment: GFR Population [...] A DIFF, ANEU, GFR, BMP, CBC #### [address] [address] GFR Non- 32 ml/min/1.73sqm Normal [facility] ([place]) Comment on above: Result Comment: GFR Population [...] A DIFF, ANEU, GFR, BMP, CBC #### [address] [address] .NEUABSon 05-26-2023 Neutrophil, Absolute 6.3 10 3/mcL Normal 2.3-8.1 [facility] ([place] Comment on above: Performed By: #### A DIFF, ANEU, GFR, BMP, CBC #### [address] [address] BMPon 05-26-2023 BUN/Creatinine Ratio 12.3 ratio Normal 10.0-22.0 [facility] ([place] Comment on above: Performed By: #### A DIFF, ANEU, GFR, BMP, CBC #### [address] [address] Calcium [Mass/Vol] 8.7 mg/dL Normal 8.7-10.4 [facility] ([place] Comment on above: Performed By: #### A DIFF, ANEU, GFR, BMP, CBC #### [address] [address] Chloride [Moles/Vol] 109 mmol/L Normal 98-110 [facility] ([place] Comment on above: Performed By: #### A DIFF, ANEU, GFR, BMP, CBC #### [address] [address] CO2 [Moles/Vol] 30 mmol/L Normal 22-32 [facility] ([place] Comment on above: Performed By: #### A DIFF, ANEU, GFR, BMP, CBC #### [address] [address] Creatinine [Mass/Vol] 2.03 mg/dL High 0.60-1.40 [facility] ([place]) Comment on above: Performed By: #### A DIFF, ANEU, GFR, BMP, CBC #### [place] [id number] Electrolyte Balance 2.0 mEq/L Low 4.0-15.0 [facility] ([place]) Comment on above: Performed By: #### A DIFF, ANEU, GFR, BMP, CBC #### [place] [id number] Glucose [Mass/Vol] 105 mg/dL Normal 82-115 [facility] ([place] Comment on above: Performed By: #### A DIFF, ANEU, GFR, BMP, CBC #### [place] [id number] Potassium [Moles/Vol] 3.9 mmol/L Normal 3.5-5.0 [facility] ([place]) Comment on above: Result Comment: Spec imen slightly hemolyzed. Performed By: #### A DIFF, ANEU, GFR, BMP, CBC #### [place] [address] Sodium [Moles/Vol] 141 mmol/L Normal 136-145 [facility] ([place] Comment on above: Performed By: #### A DIFF, ANEU, GFR, BMP, CBC #### [place] [address] Urea nitrogen [Mass/Vol] 25.0 mg/dL High 8.0-22.0 [facility] ([place] Comment on above: Performed By: #### A DIFF, ANEU, GFR, BMP, CBC #### [place] [address] CBCon 05-26-2023 Erythrocyte distribution width (RBC) [Ratio] 15.1 % Normal 11.5-15.5 [facility] ([place] Comment on above: Performed By: #### A DIFF, ANEU, GFR, BMP, CBC #### [place] [id number] Hematocrit (Bld) [Volume fraction] 33.6 % Low 40.0-52.0 [facility] ([place] Comment on above: Performed By: #### A DIFF, ANEU, GFR, BMP, CBC #### [place] [address] Hgb 11.1 G/dL Low 13.0-17.5 [facility] ([place] Comment on above: Performed By: #### A DIFF, ANEU, GFR, BMP, CBC #### [place] [address] MCH (RBC) [Entitic mass] 29.4 pg Normal 27.0-33.0 [facility] ([place] Comment on above: Performed By: #### A DIFF, ANEU, GFR, BMP, CBC #### [place] [address] MCHC 33.1 G/dL Normal 32.0-36.0 [facility] ([place] Comment on above: Performed By: #### A DIFF, ANEU, GFR, BMP, CBC #### [place] [address] MCV (RBC) [Entitic vol] 88.8 fL Normal 81.0-100.0 [facility] ([place] Comment on above: Performed By: #### A DIFF, ANEU, GFR, BMP, CBC #### [place] [address] Platelet 238 10 3/mcL Normal 150-450 [facility] ([place] Comment on above: Performed By: #### A DIFF, ANEU, GFR, BMP, CBC #### [place] [address] Platelet mean volume (Bld) [Entitic vol] 8.0 fL Normal 6.4-10.5 [facility] ([place] Comment on above: Performed By: #### A DIFF, ANEU, GFR, BMP, CBC #### [place] [address] RBC 3.78 10 6/mcL Low 4.50-6.00 [facility] ([place] Comment on above: Performed By: #### A DIFF, ANEU, GFR, BMP, CBC #### [place] [address] WBC 9.0 10 3/mcL Normal 4.5-10.8 [facility] ([place] Comment on above: Performed By: #### A DIFF, ANEU, GFR, BMP, CBC #### [facility] [address] [place], [place] [id number] LABORATORYOrdered By: Steffi Leon on 05-26-2023 Blood Glucose Testing Reason Routine (05/26/23 9:21 PM) [facility] Work Phone: Glucose [Mass/Vol] 132 mg/dL Invalid Interpretation Code 82 - 115 mg/dL [facility] Work Phone: LABORATORYOrdered By: Stacey Jiménez on 05-26-2023 Blood Glucose Testing Reason Routine (05/26/23 4:22 PM) [facility] Work Phone: Glucose [Mass/Vol] 124 mg/dL Invalid Interpretation Code 82 - 115 mg/dL [facility] Work Phone: LABORATORYOrdered By: Juana Claire on 05-26-2023 Glucose [Mass/Vol] 149 mg/dL Invalid Interpretation Code 82 - 115 mg/dL [facility] Work Phone: LABORATORYOrdered By: Sydnie Bundy on 05-26-2023 Blood Glucose Testing Reason Routine (05/26/23 7:07 AM) [facility] Work Phone: LABORATORYOrdered By: SYSTEM SYSTEM on 05-26-2023 Basophils (Bld) [#/Vol] 0.0 103/mcL Invalid Interpretation Code 0.0 - 0.3 10^3/mcL AH Workflow SS Basophils/100 WBC (Bld) 0.3 % Invalid Interpretation Code 0.0 - 2.5 % AH Workflow SS Calcium [Mass/Vol] 8.7 mg/dL Invalid Interpretation Code 8.7 - 10.4 mg/dL AH ADM SS Chloride [Moles/Vol] 109 mmol/L Invalid Interpretation Code 98 - 110 mEq/L AH ADM SS CO2 [Moles/Vol] 30 mmol/L Invalid Interpretation Code 22 - 32 mEq/L AH ADM SS Creatinine [Mass/Vol] 2.03 mg/dL Invalid Interpretation Code 0.60 - 1.40 mg/dL AH ADM SS Electrolyte Balance 2.0 mEq/L Invalid Interpretation Code 4.0 - 15.0 mEq/L ADM SS Eosinophils (Bld) [#/Vol] 0.2 103/mcL Invalid Interpretation Code 0.0 - 0.7 10^3/mcL Workflow SS Eosinophils/100 WBC (Bld) 2.0 % Invalid Interpretation Code 0.0 - 6.0 % Workflow SS Erythrocyte distribution width (RBC) [Ratio] 15.1 % Invalid Interpretation Code 11.5 - 15.5 % Workflow SS GFR/1.73 sq M.predicted among blacks MDRD (S/P/Bld) [Vol rate/Area] 38 ml/min/1.73sqm Invalid Interpretation Code ADM Comment on above: Interpretive Data: GFR Population [...] rate/Area] 32 ml/min/1.73sqm Invalid Interpretation Code ADM Comment on above: Interpretive Data: GFR Population [...] % AH Workflow SS Hemoglobin (Bld) [Mass/Vol] 11.1 G/dL Invalid Interpretation Code 13.0 - 17.5 G/dL AH Workflow SS Lymphocytes (Bld) [#/Vol] 1.7 103/mcL Invalid Interpretation Code 0.9 - 4.3 10^3/mcL AH Workflow SS Lymphocytes/100 WBC (Bld) 18.5 % Invalid Interpretation Code 20.0 - 40.0 % AH Workflow SS Magnesium [Mass/Vol] 1.8 mg/dL Invalid Interpretation Code 1.6 - 2.4 mg/dL ADM SS MCH (RBC) [Entitic mass] 29.4 [...] 05-26-2023 Magnesium [Mass/Vol] 1.8 mg/dL Normal 1.6-2.4 [facility] ([place] Comment on above: Performed By: #### M G #### [address] [address] .Auto Diffon 05-25-2023 Basophil, Absolute 0.0 10 3/mcL Normal 0.0-0.3 [facility] ([place] Comment on above: Performed By: #### A DIFF, ANEU, GFR, BMP, CBC #### [address] [address] Basophils/100 WBC (Bld) 0.4 % Normal 0.0-2.5 [facility] ([place] Comment on above: Performed By: #### A DIFF, ANEU, GFR, BMP, CBC #### [address] [address] Eosinophil, Absolute 0.3 10 3/mcL Normal 0.0-0.7 [facility] ([place] Comment on above: Performed By: #### A DIFF, ANEU, GFR, BMP, CBC #### [address] [address] Eosinophils/100 WBC (Bld) 3.0 % Normal 0.0-6.0 [facility] ([place] Comment on above: Performed By: #### A DIFF, ANEU, GFR, BMP, CBC #### [address] [address] Lymphocyte, Absolute 2.6 10 3/mcL Normal 0.9-4.3 [facility] ([place] Comment on above: Performed By: #### A DIFF, ANEU, GFR, BMP, CBC #### [address] [address] Lymphocytes/100 WBC (Bld) 28.3 % Normal 20.0-40.0 [facility] ([place] Comment on above: Performed By: #### A DIFF, ANEU, GFR, BMP, CBC #### [address] [address] Monocyte, Absolute 0.7 10 3/mcL Normal 0.1-1.4 [facility] ([place] Comment on above: Performed By: #### A DIFF, ANEU, GFR, BMP, CBC #### [address] [address] Monocytes/100 WBC (Bld) 7.9 % Normal 2.0-13.0 [facility] ([place]) Comment on above: Performed By: #### A DIFF, ANEU, GFR, BMP, CBC #### [address] [address] Neutrophils/100 WBC (Bld) 60.4 % Normal 50.0-75.0 [facility] ([place]) Comment on above: Performed By: #### A DIFF, ANEU, GFR, BMP, CBC #### [address] [address] Basophil, Absolute 0.1 10 3/mcL Normal 0.0-0.3 [facility] ([place]) Comment on above: Performed By: #### A DIFF, ANEU, GFR, BMP, CBC #### [address] [address] Basophils/100 WBC (Bld) 0.7 % Normal 0.0-2.5 [facility] ([place]) Comment on above: Performed By: #### A DIFF, ANEU, GFR, BMP, CBC #### [address] [address] Eosinophil, Absolute 0.3 10 3/mcL Normal 0.0-0.7 [facility] ([place]) Comment on above: Performed By: #### A DIFF, ANEU, GFR, BMP, CBC #### [address] [address] Eosinophils/100 WBC (Bld) 2.8 % Normal 0.0-6.0 [facility] ([place] Comment on above: Performed By: #### A DIFF, ANEU, GFR, BMP, CBC #### [address] [address] Lymphocyte, Absolute 2.1 10 3/mcL Normal 0.9-4.3 [facility] ([place] Comment on above: Performed By: #### A DIFF, ANEU, GFR, BMP, CBC #### [address] [address] Lymphocytes/100 WBC (Bld) 21.3 % Normal 20.0-40.0 [facility] ([place] Comment on above: Performed By: #### A DIFF, ANEU, GFR, BMP, CBC #### [address] [address] Monocyte, Absolute 0.7 10 3/mcL Normal 0.1-1.4 [facility] ([place] Comment on above: Performed By: #### A DIFF, ANEU, GFR, BMP, CBC #### [address] [address] Monocytes/100 WBC (Bld) 7.7 % Normal 2.0-13.0 [facility] ([place] Comment on above: Performed By: #### A DIFF, ANEU, GFR, BMP, CBC #### [address] [address] Neutrophils/100 WBC (Bld) 67.5 % Normal 50.0-75.0 [facility] ([place] Comment on above: Performed By: #### A DIFF, ANEU, GFR, BMP, CBC #### [address] [address] .GFRon 05-25-2023 GFR Non- 31 ml/min/1.73sqm Normal [facility] ([place] Comment on above: Result Comment: GFR Population [...] A DIFF, ANEU, GFR, BMP, CBC #### [address] [address] GFR 38 ml/min/1.73sqm Normal [facility] ([place] Comment on above: Result Comment: GFR Population [...] A DIFF, ANEU, GFR, BMP, CBC #### [address] [address] GFR 36 ml/min/1.73sqm Normal [facility] ([place] Comment on above: Result Comment: GFR Population [...] A DIFF, ANEU, GFR, BMP, CBC #### [address] [address] GFR Non- 30 ml/min/1.73sqm Normal [facility] ([place] Comment on above: Result Comment: GFR Population [...] A DIFF, ANEU, GFR, BMP, CBC #### [address] [address] .NEUABSon 05-25-2023 Neutrophil, Absolute 5.7 10 3/mcL Normal 2.3-8.1 [facility] ([place] Comment on above: Performed By: #### A DIFF, ANEU, GFR, BMP, CBC #### [address] [address] Neutrophil, Absolute 6.5 10 3/mcL Normal 2.3-8.1 [facility] ([place] Comment on above: Performed By: #### A DIFF, ANEU, GFR, BMP, CBC #### [address] [address] BMPon 05-25-2023 BUN/Creatinine Ratio 11.6 ratio Normal 10.0-22.0 [facility] ([place] Comment on above: Performed By: #### A DIFF, ANEU, GFR, BMP, CBC #### [address] [address] Calcium [Mass/Vol] 9.6 mg/dL Normal 8.7-10.4 [facility] ([place] Comment on above: Performed By: #### A DIFF, ANEU, GFR, BMP, CBC #### [address] [address] Chloride [Moles/Vol] 105 mmol/L Normal 98-110 [facility] ([place] Comment on above: Performed By: #### A DIFF, ANEU, GFR, BMP, CBC #### [address] [address] CO2 [Moles/Vol] 31 mmol/L Normal 22-32 [facility] ([place] Comment on above: Performed By: #### A DIFF, ANEU, GFR, BMP, CBC #### [address] [address] Creatinine [Mass/Vol] 2.07 mg/dL High 0.60-1.40 [facility] ([place] Comment on above: Performed By: #### A DIFF, ANEU, GFR, BMP, CBC #### [address] [address] Electrolyte Balance 6.0 mEq/L Normal 4.0-15.0 [facility] ([place]) Comment on above: Performed By: #### A DIFF, ANEU, GFR, BMP, CBC #### [address] [address] Glucose [Mass/Vol] 100 mg/dL Normal 82-115 [facility] ([place] Comment on above: Performed By: #### A DIFF, ANEU, GFR, BMP, CBC #### [address] [address] Potassium [Moles/Vol] 3.6 mmol/L Normal 3.5-5.0 [facility] ([place] Comment on above: Performed By: #### A DIFF, ANEU, GFR, BMP, CBC #### [address] [address] Sodium [Moles/Vol] 142 mmol/L Normal 136-145 [facility] ([place] Comment on above: Performed By: #### A DIFF, ANEU, GFR, BMP, CBC #### [address] [address] Urea nitrogen [Mass/Vol] 24.0 mg/dL High 8.0-22.0 [facility] ([place] Comment on above: Performed By: #### A DIFF, ANEU, GFR, BMP, CBC #### [place] [address] CBCon 05-25-2023 Erythrocyte distribution width (RBC) [Ratio] 14.8 % Normal 11.5-15.5 [facility] ([place] Comment on above: Performed By: #### A DIFF, ANEU, GFR, BMP, CBC #### [place] [address] Hematocrit (Bld) [Volume fraction] 33.2 % Low 40.0-52.0 [facility] ([place] Comment on above: Performed By: #### A DIFF, ANEU, GFR, BMP, CBC #### [place] [address] Hgb 11.0 G/dL Low 13.0-17.5 [facility] ([place] Comment on above: Performed By: #### A DIFF, ANEU, GFR, BMP, CBC #### [place] [address] MCH (RBC) [Entitic mass] 29.4 pg Normal 27.0-33.0 [facility] ([place] Comment on above: Performed By: #### A DIFF, ANEU, GFR, BMP, CBC #### [place] [address] MCHC 33.2 G/dL Normal 32.0-36.0 [facility] ([place] Comment on above: Performed By: #### A DIFF, ANEU, GFR, BMP, CBC #### [place] [address] MCV (RBC) [Entitic vol] 88.7 fL Normal 81.0-100.0 [facility] ([place] Comment on above: Performed By: #### A DIFF, ANEU, GFR, BMP, CBC #### [place] [address] Platelet 234 10 3/mcL Normal 150-450 [facility] ([place] Comment on above: Performed By: #### A DIFF, ANEU, GFR, BMP, CBC #### [place] [address] Platelet mean volume (Bld) [Entitic vol] 7.9 fL Normal 6.4-10.5 [facility] ([place] Comment on above: Performed By: #### A DIFF, ANEU, GFR, BMP, CBC #### [place] [address] RBC 3.74 10 6/mcL Low 4.50-6.00 [facility] ([place] Comment on above: Performed By: #### A DIFF, ANEU, GFR, BMP, CBC #### [place] [address] WBC 9.4 10 3/mcL Normal 4.5-10.8 [facility] ([place] Comment on above: Performed By: #### A DIFF, ANEU, GFR, BMP, CBC #### [place] [address] Erythrocyte distribution width (RBC) [Ratio] 15.0 % Normal 11.5-15.5 [facility] ([place] Comment on above: Performed By: #### A DIFF, ANEU, GFR, BMP, CBC #### [place] [address] Hematocrit (Bld) [Volume fraction] 34.9 % Low 40.0-52.0 [facility] ([place] Comment on above: Performed By: #### A DIFF, ANEU, GFR, BMP, CBC #### [place] [address] Hgb 11.4 G/dL Low 13.0-17.5 [facility] ([place] Comment on above: Performed By: #### A DIFF, ANEU, GFR, BMP, CBC #### [place] [address] MCH (RBC) [Entitic mass] 29.3 pg Normal 27.0-33.0 [facility] ([place] Comment on above: Performed By: #### A DIFF, ANEU, GFR, BMP, CBC #### [place] [address] MCHC 32.8 G/dL Normal 32.0-36.0 [facility] ([place] Comment on above: Performed By: #### A DIFF, ANEU, GFR, BMP, CBC #### [address] [address] MCV (RBC) [Entitic vol] 89.3 fL Normal 81.0-100.0 [facility] ([place] Comment on above: Performed By: #### A DIFF, ANEU, GFR, BMP, CBC #### [place] [address] Platelet 253 10 3/mcL Normal 150-450 [facility] ([place] Comment on above: Performed By: #### A DIFF, ANEU, GFR, BMP, CBC #### [place] [address] Platelet mean volume (Bld) [Entitic vol] 7.5 fL Normal 6.4-10.5 [facility] ([place] Comment on above: Performed By: #### A DIFF, ANEU, GFR, BMP, CBC #### [place] [address] RBC 3.90 10 6/mcL Low 4.50-6.00 [facility] ([place] Comment on above: Performed By: #### A DIFF, ANEU, GFR, BMP, CBC #### [address] [address] WBC 9.7 10 3/mcL Normal 4.5-10.8 [facility] ([place] Comment on above: Performed By: #### A DIFF, ANEU, GFR, BMP, CBC #### [address] [address] CMPon 05-25-2023 Albumin Level 3.5 G/dL Normal 3.2-4.8 [facility] ([place] Comment on above: Performed By: #### A DIFF, ANEU, GFR, BMP, CBC #### [place] [id number] Albumin/Globulin [Mass ratio] 1.1 {ratio} Normal 0.9-1.6 [facility] ([place] Comment on above: Performed By: #### A DIFF, ANEU, GFR, BMP, CBC #### [address] [address] ALP [Catalytic activity/Vol] 115 U/L Normal 38-126 [facility] ([place] Comment on above: Performed By: #### A DIFF, ANEU, GFR, BMP, CBC #### [address] [address] ALT [Catalytic activity/Vol] 8 U/L Low 12-55 [facility] ([place] Comment on above: Performed By: #### A DIFF, ANEU, GFR, BMP, CBC #### [address] [address] AST [Catalytic activity/Vol] 17 U/L Normal 8-34 [facility] ([place] Comment on above: Performed By: #### A DIFF, ANEU, GFR, BMP, CBC #### [address] [address] Bili Total 0.30 mg/dL Normal 0.20-1.20 [facility] ([place] Comment on above: Result Comment: Use of this assay is not recommended for patients undergoing treatment with eltrombopag due to the potential for falsely elevated results. Performed By: #### A DIFF, ANEU, GFR, BMP, CBC #### [address] [address] BUN/Creatinine Ratio 11.7 ratio Normal 10.0-22.0 [facility] ([place] Comment on above: Performed By: #### A DIFF, ANEU, GFR, BMP, CBC #### [address] [address] Calcium [Mass/Vol] 9.4 mg/dL Normal 8.7-10.4 [facility] ([place]) Comment on above: Performed By: #### A DIFF, ANEU, GFR, BMP, CBC #### [address] [address] Chloride [Moles/Vol] 105 mmol/L Normal 98-110 [facility] ([place] Comment on above: Performed By: #### A DIFF, ANEU, GFR, BMP, CBC #### [address] [address] CO2 [Moles/Vol] 29 mmol/L Normal 22-32 [facility] ([place] Comment on above: Performed By: #### A DIFF, ANEU, GFR, BMP, CBC #### [address] [address] Creatinine [Mass/Vol] 2.13 mg/dL High 0.60-1.40 [facility] ([place]) Comment on above: Performed By: #### A DIFF, ANEU, GFR, BMP, CBC #### [address] [address] Electrolyte Balance 5.0 mEq/L Normal 4.0-15.0 [facility] ([place]) Comment on above: Performed By: #### A DIFF, ANEU, GFR, BMP, CBC #### [address] [address] Globulin 3.1 G/dL Normal 1.5-3.8 [facility] ([place] Comment on above: Performed By: #### A DIFF, ANEU, GFR, BMP, CBC #### [address] [address] Glucose [Mass/Vol] 107 mg/dL Normal 82-115 [facility] ([place] Comment on above: Performed By: #### A DIFF, ANEU, GFR, BMP, CBC #### [address] [address] Potassium [Moles/Vol] 4.1 mmol/L Normal 3.5-5.0 [facility] ([place]) Comment on above: Result Comment: Spec imen slightly hemolyzed. Performed By: #### A DIFF, ANEU, GFR, BMP, CBC #### [address] [address] Sodium [Moles/Vol] 139 mmol/L Normal 136-145 [facility] ([place] Comment on above: Performed By: #### A DIFF, ANEU, GFR, BMP, CBC #### [address] [address] Total Protein 6.6 G/dL Normal 5.7-8.2 [facility] ([place]) Comment on above: Result Comment: No te - New Reference Range in effect 20 Performed By: #### A DIFF, ANEU, GFR, BMP, CBC #### [place] [address] Urea nitrogen [Mass/Vol] 25.0 mg/dL High 8.0-22.0 [facility] ([place] Comment on above: Performed By: #### A DIFF, ANEU, GFR, BMP, CBC #### [place] [address] MGon 05-25-2023 Magnesium [Mass/Vol] 1.9 mg/dL Normal 1.6-2.4 [facility] ([place] Comment on above: Performed By: #### A DIFF, ANEU, GFR, BMP, CBC #### [place] [address] Magnesium [Mass/Vol] 2.0 mg/dL Normal 1.6-2.4 [facility] ([place] Comment on above: Performed By: #### A DIFF, ANEU, GFR, BMP, CBC #### [place] [address] PBNPon 05-25-2023 Natriuretic peptide B (Bld) [Mass/Vol] 160 pg/mL Normal 0-1800 [facility] ([place] Comment on above: Result Comment: NT-p roBNP results of less than 300 pg/mL effectively rules out acute congestive heart failure with 99% negative predictive value. Performed By: #### A DIFF, ANEU, GFR, BMP, CBC #### [place] [address] TROPHSon 05-25-2023 Troponin I High Sensitivity 6.29 ng/L Normal 0.00-54.00 [facility] ([place] Comment on above: Performed By: #### A DIFF, ANEU, GFR, BMP, CBC #### [place] [address] LABORATORYOrdered By: SYSTEM SYSTEM on 05-24-2023 Albumin BCP dye [Mass/Vol] 3.5 G/dL Invalid Interpretation Code 3.2 - 4.8 G/dL AH ADM SS Albumin/Globulin [Mass ratio] 1.1 {ratio} Invalid Interpretation Code 0.9 - 1.6 ratio AH ADM SS ALP [Catalytic activity/Vol] 115 U/L Invalid Interpretation Code 38 - 126 U/L AH ADM SS ALT No additional P-5'-P [Catalytic [...] Invalid Interpretation Code 1.5 - 3.8 G/dL AH ADM SS Protein [Mass/Vol] 6.6 G/dL Invalid Interpretation Code 5.7 - 8.2 G/dL AH ADM SS Comment on above: Interpretive [...] negative predictive value. No Panel Informationon 05-09 [facility] XR Knee - bilateral 4 Viewso n 03-28-2023 IMPRESSION: No acute bony finding. Knee joints are unremarkable. Md Psychiatry: PSCB Transcribe Date/Time: Mar 28 2023 8:16A Dictated by : COMFORT GLOVER MD This examination was interpreted and the report reviewed and electronically signed by: COMFORT GLOVER MD on Mar 28 2023 8:18AM [facility] DIVISION OF RADIOLOGY * * *Final Report* [...] fracture. Vascular calcifications. DIVISION OF RADIOLOGY Provider, [facility] - 03/28/2023 * * *Final Report* [...] acute bony finding. Knee joints are unremarkable. Md Psychiatry: PSCB Transcribe Date/Time: Mar 28 2023 8:16A Dictated by : COMFORT GLOVER MD This examination was interpreted and the report reviewed and electronically signed by: COMFORT GLOVER MD on Mar 28 2023 8:18AM EST [facility] XR Lumbar spine 3 Viewson Interpretation and review of laboratory results Abnormal [facility] Radiology Result ACTIONABLE Abnormal [facility] Comment on above: This report contains [...] be communicated with the ordering provider via [employer] staff message or phone message by [employer] within 2 business days of report finalization. Algorithms for management of incidental imaging findings can be found on the [facility] Intranet Sharepoint site at: [email or web address] [email or web address]%20Findi ngs%20at%20Imaging/Forms/A llItems.aspx Md Psychiatry: JASON Transcribe Date/Time: Mar 28 2023 8:11A Dictated by : COMFORT GLOVER MD This examination was interpreted and the report reviewed and electronically signed by: COMFORT GLOVER MD on Mar 28 2023 8:16AM [facility] DIVISION OF RADIOLOGY * * *Final Report* [...] Anatomic Variants: None. DIVISION OF RADIOLOGY Provider, [facility] - 03/28/2023 * * *Final [...] be communicated with the ordering provider via [employer] staff message or phone message by [employer] within 2 business days of report finalization. Algorithms for management of incidental imaging findings can be found on the [facility] Intranet Sharepoint site at: [email or web address] [email or web address]%20Findi ngs%20at%20Imaging/Forms/A llItems.aspx Md Psychiatry: JASON Transcribe Date/Time: Mar 28 2023 8:11A Dictated by : COMFORT GLOVER MD This examination was interpreted and the report reviewed and electronically signed by: COMFORT GLOVER MD on Mar 28 2023 8:16AM EST [facility] XR Chest PA and Lateralon IMPRESSION: Stable exam. No acute radiographic abnormality. Md Psychiatry: JASON Transcribe Date/Time: Mar 24 2023 9:33A Dictated by : CARLATYRONE BROWN DO This examination was interpreted and the report reviewed and electronically signed by: CARLA BROWN DO on Mar 24 2023 9:33AM [facility] DIVISION OF RADIOLOGY * * *Final Report* [...] thoracic spine. DIVISION OF RADIOLOGY Provider, [facility] [place] - 03/24/2023 * * *Final Report* * [...] IMPRESSION: Stable exam. No acute radiographic abnormality. Md Psychiatry: JASON Transcribe Date/Time: Mar 24 2023 9:33A Dictated by : CARLA BROWN DO This examination was interpreted and the report reviewed and electronically signed by: CARLA BROWN DO on Mar 24 2023 9:33AM [facility] XR Chest PA and LateralOrder ed By: Ccf Provider on 03-24-2023 [facility] No Panel Informationon 03-23 Radiology Study observation (narrative) [facility] XR Chest PA and Lateralon IMPRESSION: No acute radiographic abnormality. Md Psychiatry: JASON Transcribe Date/Time: Nov 25 2021 12:25P Dictated by : COMFORT GLOVER MD This examination was interpreted and the report reviewed and electronically signed by: COMFORT GLOVER MD on Nov 25 2021 12:26PM EST ZZZ_DO_NOT_ USE_DIVISIO N OF RADIOLOGY * * *Final Report* * [...] cardiomediastinal silhouette. Bones and soft tissues: Unremarkable. ZZZ_DO_NOT_ USE_DIVISIO N OF RADIOLOGY Provider, [facility] - 11/25/2021 * * *Final Report* * [...] Unremarkable. IMPRESSION IMPRESSION: No acute radiographic abnormality. Md Psychiatry: JASON Transcribe Date/Time: Nov 25 2021 12:25P Dictated by : COMFORT GLOVER MD This examination was interpreted and the report reviewed and electronically signed by: COMFORT GLOVER MD on Nov 25 2021 12:26PM EST [facility] Radiology Study observation (narrative) [facility] XR Chest PA and LateralOrder ed By: Ccf Provider on 11-25-2021 [facility] XR Chest PA and Lateralon IMPRESSION: No acute radiographic abnormality. Md Psychiatry: PSCB Transcribe Date/Time: Sep 18 2020 3:15P Dictated by : ZOE AKBAR MD This examination was interpreted and the report reviewed and electronically signed by: ZOE AKBAR MD on Sep 18 2020 3:16PM EST DIVISION OF RADIOLOGY * * *Final [...] shows degenerative changes. DIVISION OF RADIOLOGY Provider, [facility] - 09/18/2020 * * *Final Report* * [...] changes. IMPRESSION IMPRESSION: No acute radiographic abnormality. Md Psychiatry: PSCB Transcribe Date/Time: Sep 18 2020 3:15P Dictated by : ZOE AKBAR MD This examination was interpreted and the report reviewed and electronically signed by: ZOE AKBAR MD on Sep 18 2020 3:16PM EST [facility] Radiology Study observation (narrative) [facility] XR Chest PA and LateralOrder ed By: Ccf Provider on 09-18-2020 [facility] No Panel Informationon 06-09 IMPRESSION: Degenerative changes as discussed Md Psychiatry: PSCB Transcribe Date/Time: Jun 09 2020 4:42P Dictated by : LISA CARREON DO This examination was interpreted and the report reviewed and electronically signed by: LISA CARREON DO on Jun 09 2020 4:44PM EST DIVISION OF RADIOLOGY Radiology Study observation (narrative) [facility] No Panel InformationOrdered By: Ccf Provider on 06-09-2020 [facility] XR Cervical spine AP and Lat eral [...] the glenohumeral joint. DIVISION OF RADIOLOGY Provider, [facility] - 06/09/2020 * * *Final Report* [...] joint. IMPRESSION IMPRESSION: Degenerative changes as discussed Md Psychiatry: JASON Transcribe Date/Time: Jun 09 2020 4:42P Dictated by : LISA CARREON DO This examination was interpreted and the report reviewed and electronically signed by: LISA CARREON DO on Jun 09 2020 4:44PM [facility] XR Shoulder - left 3 Viewson [...] the glenohumeral joint. DIVISION OF RADIOLOGY Provider, [facility] * * *Final Report* * [...] joint. IMPRESSION IMPRESSION: Degenerative changes as discussed Md Psychiatry: JASON Transcribe Date/Time: Jun 09 2020 4:42P Dictated by : LISA CARREON DO This examination was interpreted and the report reviewed and electronically signed by: LISA CARREON DO on Jun 09 2020 4:44PM [facility] Lab Report: Basic Metabolic Profile (BMP)on 06-27-2017 Anion gap 11 mmol/L Invalid Interpretation Code 5-15 [employer] Work Phone: [phone] BUN/Creatinine Ratio 20.3 RATIO High 10-20 [facility] [employer] Work Phone: [phone] Calcium 9.5 mg/dL Invalid Interpretation Code 8.5-10.1 [employer] Work Phone: [phone] Chloride 92 mmol/L Low 98-107 [place] [employer] Work Phone: [phone] CO2 29.0 mmol/L Invalid Interpretation Code 21.0-32.0 [employer] Work Phone: [phone] Creatinine 2.51 mg/dL High 0.70-1.30 [employer] Work Phone: [phone] eGFR (non-black) 32 mL/min/{1.73_m2} Low >60 [employer] Work Phone: [phone] eGFR (non-black) 27 mL/min/{1.73_m2} Low >60 [facility] Work Phone: [phone] Glucose mass conc 506 mg/dL Critically high 70-110 [facility] Work Phone: [phone] Potassium molar conc 3.9 mmol/L Invalid Interpretation Code 3.5-5.1 [facility] Work Phone: [phone] Sodium 132 mmol/L Low 136-145 [facility] Work Phone: [phone] Urea nitrogen 51 mg/dL High 7-18 [facility] Work Phone: [phone] Lab Report: CBC W/Diff, Auto matedon 06-27-2017 Absolute Neut 7.1 X10 3/UL Invalid Interpretation Code 2.0-7.7 [facility] Work Phone: [phone] Basophils/100 WBC Auto (Bld) 0.3 % Invalid Interpretation Code 0-1 [facility] Work Phone: [phone] Eosinophils/100 leukocytes 2.0 % Invalid Interpretation Code 0-5 [facility] Work Phone: [phone] Erythrocyte distribution width Auto Ratio (RBC) 16.6 % High 11.6-14.6 [facility] Work Phone: [phone] Erythrocytes (RBC) 4.42 10*6/uL Low 4.6-6.[address] [facility] Work Phone: [phone] Hematocrit (HCT) 36.9 % Low 40-54 [facility] Work Phone: [phone] Hemoglobin mass conc (Bld) 11.8 g/dL Low 13.0-16.5 [facility] Work Phone: [phone] Immature granulocytes/100 WBC (Bld) 0.200 % Invalid Interpretation Code 0.0-0.9 [facility] Work Phone: [phone] Lymphocytes 2.63 X10 3/UL Invalid Interpretation Code 0.83-4.51 [facility] Work Phone: [phone] Lymphocytes/100 leukocytes 24.1 % Invalid Interpretation Code 19-41 [facility] Work Phone: [phone] MCH 26.7 pg Low 27.0-32.0 [facility] Work Phone: [phone] MCHC mass conc (RBC) 32.0 G/GL Invalid Interpretation Code 32-36 [employer] Work Phone: [phone] MCV 83.5 fL Invalid Interpretation Code 80-94 [employer] Work Phone: [phone] Monocytes/100 leukocytes 8.2 % Invalid Interpretation Code 0-10 [employer] Work Phone: [phone] Neutrophils/100 WBC Auto (Bld) 65.2 % Invalid Interpretation Code 47-70 [employer] Work Phone: [phone] Platelets 434 10*3/mm3 Invalid Interpretation Code 150-450 [employer] Work Phone: [phone] PMV by Jeanna 10.4 fL Invalid Interpretation Code 6.2-12.0 [employer] Work Phone: [phone] RDW SD 49.6 fL High 35.1-43.9 [employer] Work Phone: [phone] WBC (Leukocytes) 10.9 10*3/uL Invalid Interpretation Code 4.4-11.0 [employer] Work Phone: [phone]) Lab Report: Hemoglobin A1con 06-27-2017 Hemoglobin A1c/Hemoglobin.total mass fraction (Bld) 12.1 % High 4.2-6.3 [employer] Work Phone: [phone]) Lab Report: Lipid Profileon 06-27-2017 Cholesterol 247 mg/dL High 200 [employer] Work Phone: [phone] HDL Cholesterol 50 mg/dL Invalid Interpretation Code [employer] Work Phone: [phone] LDL Cholesterol 145 mg/dL High 0-130 [employer] Work Phone: [phone] Triglyceride 262 mg/dL High [employer] Work Phone: [phone] very low density lipoproteins 52 mg/dL High 5-40 [employer] Work Phone: [phone]) Lab Report: Liver Profileon 06-27-2017 Alanine aminotransferase (ALT) 16 U/L Invalid Interpretation Code 12-78 [employer] Work Phone: [phone] Albumin 3.5 g/dL Invalid Interpretation Code 3.4-5.0 [employer] Work Phone: [phone] Alkaline phosphatase (ALP) 141 U/L High 45-117 [employer] Work Phone: [phone] Aspartate aminotransferase (AST) 11 U/L Low 15-37 [employer] Phone: [phone] Bilirubin (direct) 0.09 mg/dL Invalid Interpretation Code 0.00-0.30 [employer] Work Phone: [phone] Bilirubin (total) 0.50 mg/dL Invalid Interpretation Code 0.20-1.00 [employer] Phone: [phone] Globulin 4.3 g/dL High 2.2-4.2 [employer] Work Phone: [phone] Protein 7.8 g/dL Invalid Interpretation Code 6.4-8.2 [employer] Phone: [phone] Office Visiton 06-27-2017 Documentation of current medications (procedure) Done Invalid Interpretation Code [employer] Phone: [phone] Fall risk assessment No Invalid Interpretation Code [employer] Phone: [phone]) 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 Left ventricular Ejection fraction 45-50 Invalid Interpretation Code [employer] Phone: [phone] Office Visiton 04-21-2017 Documentation of current medications (procedure) Done Invalid Interpretation Code [employer] Phone: [phone] Fall risk assessment No Invalid Interpretation Code [employer] Phone: [phone] Office Visit: anemiaon 04-20 Dietary management education, guidance, and counseling (procedure) yes Invalid Interpretation Code [employer] Phone: [phone] Tobacco smoking status NHIS Never Invalid Interpretation Code [employer] Phone: [phone] Tobacco use CPHS Former smoker Invalid Interpretation Code [employer] Work Phone: [phone]) Lab Report: Basic Metabolic Profile (BMP)on 03-31-2017 Anion gap 11 mmol/L Invalid Interpretation Code 12-13 [employer] Work Phone: [phone] BUN/Creatinine Ratio 18.1 RATIO Invalid Interpretation Code 10-20 [employer] Work Phone: [phone] Calcium 8.3 mg/dL Low 8.5-10.1 [employer] Work Phone: [phone] Chloride 101 mmol/L Invalid Interpretation Code 98-107 [employer] Work Phone: [phone] CO2 26.0 mmol/L Invalid Interpretation Code 21.0-32.0 [employer] Work Phone: [phone] Creatinine 27.94 mL/min Invalid Interpretation Code [employer] Work Phone: [phone] Creatinine 2.21 mg/dL High 0.70-1.30 [employer] Work Phone: [phone] eGFR (non-black) 31 mL/min/{1.73_m2} Low >60 [employer] Work Phone: [phone] eGFR (non-black) 37 mL/min/{1.73_m2} Low >60 [employer] Work Phone: [phone] Glucose mass conc 118 mg/dL High 70-110 [employer] Work Phone: [phone] Potassium molar conc 3.3 mmol/L Low 3.5-5.1 [employer] Work Phone: [phone] Sodium 138 mmol/L Invalid Interpretation Code 136-145 [employer] Work Phone: [phone] Urea nitrogen 40 mg/dL High 7-18 [employer] Work Phone: [phone]) Lab Report: CBC W/Diff, Auto matedon 03-31-2017 Absolute Neut 10.9 X10 3/UL High 2.0-7.7 [employer] Work Phone: [phone] Erythrocyte distribution width Auto Ratio (RBC) 17.6 % High 11.6-14.6 [employer] Work Phone: [phone] Erythrocytes (RBC) 3.08 10*6/uL Low 4.6-6.2 [employer] Work Phone: [phone] Hematocrit (HCT) 25.2 % Low 40-54 [employer] Work Phone: [phone] Hemoglobin mass conc (Bld) 7.5 g/dL Low 13.0-16.5 [facility] Work Phone: [phone] Lymphocytes/100 leukocytes 7.0 % Low 19-41 [facility] Work Phone: [phone] MCH 24.4 pg Low 27.0-32.0 [facility] Work Phone: [phone] MCHC mass conc (RBC) 29.8 G/GL Low 32-[address] [facility] Work Phone: [phone] Neutrophils/100 WBC Auto (Bld) 83.6 % High 47-70 [facility] Work Phone: [phone] RDW SD 49.3 fL High 35.1-43.9 [facility] Work Phone: [phone] WBC (Leukocytes) 13.1 10*3/uL High 4.4-11.0 [facility] Work Phone: [phone] Basophils/100 WBC Auto (Bld) 0.2 % Invalid Interpretation Code 0-1 [facility] Work Phone: [phone] Eosinophils/100 leukocytes 1.2 % Invalid Interpretation Code 0-5 [facility] Work Phone: [phone] Immature granulocytes/100 WBC (Bld) 0.300 % Invalid Interpretation Code 0.0-0.9 [facility] Work Phone: [phone] Lymphocytes 0.92 X10 3/UL Invalid Interpretation Code 0.83-4.51 [facility] Work Phone: [phone] MCV 81.8 fL Invalid Interpretation Code 80-94 [facility] Work Phone: [phone] Monocytes/100 leukocytes 7.7 % Invalid Interpretation Code 0-10 [facility] Work Phone: [phone] Platelets 396 10*3/mm3 Invalid Interpretation Code 150-450 [facility] Work Phone: [phone] PMV by Jeanna 9.0 fL Invalid Interpretation Code 6.2-12.0 [facility] Work Phone: [phone] Lab Report: CPK Total, Creat ine Kinaseon 03-31-2017 Creatine kinase (CK) 35 U/L Low 39-[address] [facility] Work Phone: [phone] Lab Report: ACT Activated Cl otting Timeon 03-30-2017 ACTk CLOT TIME 197 sec High 74-137 [employer] Work Phone: [phone]) Lab Report: Partial Thrombop last Timeon 03-23-2017 aPTT 35.5 s Invalid Interpretation Code 24.1-36.2 [employer] Work Phone: [phone] Replaced Document: (P) Proth rombin Time w/INRon 03-23-2017 INR Coag RelTime (PPP) 1.1 {INR} Invalid Interpretation Code [employer] Work Phone: [phone] Prothrombin time (PT) Coag time (PPP) 13.9 s Invalid Interpretation Code 11.7-14.9 [employer] Work Phone: [phone]) Lab Report: BNP,B-Type NATRI URETIC PEPTIDEon 03-07-2017 BNP 43.4 pg/mL Invalid Interpretation Code 0-100 [employer] Work Phone: [phone] Replaced Document: [employer]mark E CG Observationson 02-25-2017 EKG QRS axis -1 deg Invalid Interpretation Code [employer] Work Phone: [phone] Interpretation Sinus Rhythm -Nonspe cific ST depression -Nondiagnostic. 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 02-24-2017 Alanine aminotransferase (ALT) 12 U/L Invalid Interpretation Code [facility] [employer] [facility] [employer] Work Phone: [phone] Albumin 3.8 g/dL Low [facility] [employer] [facility] Work Phone: [phone] Alkaline phosphatase (ALP) 99 U/L Invalid Interpretation Code [facility] Work Phone: [phone] Aspartate aminotransferase (AST) 15 U/L Invalid Interpretation Code [facility] Work Phone: [phone] Bilirubin (total) 0.2 mg/dL Invalid Interpretation Code [facility] Work Phone: [phone] Protein 7.5 g/dL Invalid Interpretation Code [facility] Work Phone: [phone] External Other: Preferred Me thod of Contacton 01-18-2017 methcontact secmsg Invalid Interpretation Code [facility] Work Phone: [phone]) Clinical Lists Update: Pre 12-24-2016 Albumin/Globulin Ratio 0.7 {ratio} Low [facility] Work Phone: [phone] eGFR (non-black) 51 mL/min/{1.73_m2} [facility] Work Phone: [phone] eGFR (non-black) 46 mL/min/{1.73_m2} [facility] Work Phone: [phone] Globulin 3.9 g/dL [facility] Work Phone: [phone] Magnesium 2.2 mg/dL Invalid Interpretation Code [facility] Work Phone: [phone] Clinical Lists Update: Pre 12-21-2016 Cholesterol 172 mg/dL Invalid Interpretation Code [facility] Work Phone: [phone] HDL Cholesterol 31 mg/dL [facility] Work Phone: [phone] LDL Cholesterol 103 mg/dL Invalid Interpretation Code [facility] Work Phone: [phone] Triglyceride 192 mg/dL Invalid Interpretation Code [facility] Work Phone: [phone] very low density lipoproteins 38 mg/dL Invalid Interpretation Code [facility] Work Phone: [phone] Vital Signs Date Time Vital Sign Value Performing Clinician Roderick delgado 01-17-2025 11:18-0400 Body mass index (BMI) [Ratio] 24.14 kg/m2 Amy Castaneda APRN.BATTERY CONTAINER TESTER [employer] Work Phone: [facility] 01-17-2025 11:18-0400 Body weight 72 kg Amy Castaneda SURGEON'S ASSISTANT.BATTERY CONTAINER TESTER [employer]UM[employer] Work Phone: [facility] 01-17-2025 11:18-0400 Diastolic blood pressure 58 mm[Hg] Amy Castaneda SURGEON'S ASSISTANT.BATTERY CONTAINER TESTER [employer]UM[employer] Work Phone: [facility] 01-17-2025 11:18-0400 Heart rate 62 /min Amy Castaneda SURGEON'S ASSISTANT.BATTERY CONTAINER TESTER [employer] Work Phone: [facility] 01-17-2025 11:18-0400 SaO2% (BldA) [Mass fraction] 94 % Amy Castaneda SURGEON'S ASSISTANT.BATTERY CONTAINER TESTER [employer] Work Phone: [facility] 01-17-2025 11:18-0400 Systolic blood pressure 116 mm[Hg] Amy Castaneda SURGEON'S ASSISTANT.BATTERY CONTAINER TE[employer] Work Phone: 1(744)331-651165 [place] [address] 01-15-2025 13:37-0400 Body height 172.[address] Samson Ragsdale DO Work Phone: 7(169)261-767959 [place] [address] 01-15-2025 13:37-0400 Body mass index (BMI) [Ratio] 24.7 kg/m2 Dr. Samson Ragsdale DO Work Phone: 8(368)053-133559 [place] [address] 01-15-2025 13:37-0400 Body weight 73.[address] Samson Ragsdale DO Work Phone: 2(169)402-860159 [place] [address] 01-15-2025 13:37-0400 Diastolic blood pressure 67 mm[Hg] Dr. Samson Ragsdale DO Work Phone: 9(273)986-700559 [place] [address] 01-15-2025 13:37-0400 Heart rate 61 /min Dr. Samson Ragsdale DO Work Phone: 4(655)116-587659 [place] [address] 01-15-2025 13:37-0400 Respiratory rate 22 /min Dr. Samson Ragsdale DO Work Phone: 6(420)811-512659 [place] [address] 01-15-2025 13:37-0400 Systolic blood pressure 118 mm[Hg] Dr. Samson Ragsdale DO Work Phone: 3(185)171-278059 [place] [address] 01-14-2025 02:19-0400 Body temperature 98.1 [degF] Dr. Samson Ragsdale DO Work Phone: 1(008)232-119659 [place] [address] 01-14-2025 02:19-0400 Diastolic blood pressure 53 mm[Hg] Dr. Samson Ragsdale DO Work Phone: 2(060)810-482459 [place] [address] 01-14-2025 02:19-0400 Heart rate 60 /min Dr. Samson Ragsdale DO Work Phone: 9(586)968-165459 [place] [address] 01-14-2025 02:19-0400 Respiratory rate 20 /min Dr. Samson Ragsdale DO Work Phone: 1(868)667-812359 [place] [address] 01-14-2025 02:19-0400 SaO2% (BldA) [Mass fraction] 93 % Dr. Samson Ragsdale DO Work Phone: 5(049)094-851059 [place] [address] 01-14-2025 02:19-0400 Systolic blood pressure 111 mm[Hg] Dr. Samson Ragsdale DO Work Phone: 7(733)877-462359 [place] [address] 01-13-2025 22:13-0400 Body height 172.[address] Samson Ragsdale DO Work Phone: 9(114)168-368138 [place] [address] 01-13-2025 22:13-0400 Body mass index (BMI) [Ratio] 25.1 kg/m2 Dr. Samson Ragsdale DO Work Phone: 5(109)171-613059 [place] [address] 01-13-2025 22:13-0400 Body weight 75.[address] Samson Ragsdale DO Work Phone: 1(220)952-502338 [place] [address] 01-09-2025 14:13-0400 Body mass index (BMI) [Ratio] 25.07 kg/m2 Khloe Swank SURGEON'S ASSISTANT.BATTERY CONTAINER TESTER [employer] Work Phone: 6(126)100-428865 [place] [address] 01-09-2025 14:13-0400 Body temperature 97.2 [degF] Khloe Swank SURGEON'S ASSISTANT.BATTERY CONTAINER TESTER [employer] Work Phone: 1(742)411-960865 [place] [address] 01-09-2025 14:13-0400 Body weight 74.8 kg Khloe Swank SURGEON'S ASSISTANT.BATTERY CONTAINER TESTER [employer] Work Phone: [facility] 01-09-2025 14:13-0400 Diastolic blood pressure 72 mm[Hg] Khloe Swank SURGEON'S ASSISTANT.BATTERY CONTAINER TESTER [employer] Work Phone: [facility] 01-09-2025 14:13-0400 Heart rate 64 /min Khloe Swank SURGEON'S ASSISTANT.BATTERY CONTAINER TESTER [employer]UM[employer]UM Work Phone: [facility] 01-09-2025 14:13-0400 Respiratory rate 18 /min Khloe Swank SURGEON'S ASSISTANT.BATTERY CONTAINER TESTER [employer] Work Phone: [facility] 01-09-2025 14:13-0400 SaO2% (BldA) [Mass fraction] 95 % Khloe Swank SURGEON'S ASSISTANT.BATTERY CONTAINER TESTER [employer] Work Phone: [facility] 01-09-2025 14:13-0400 Systolic blood pressure 132 mm[Hg] Khloe Swank SURGEON'S ASSISTANT.BATTERY CONTAINER TESTER [employer] Work Phone: [facility] 11-26-2024 15:12-0400 Body mass index (BMI) [Ratio] 25.71 kg/m2 Theodora Hernandez SURGEON'S ASSISTANT.BATTERY CONTAINER TESTER [employer]UM[employer] Work Phone: [facility] 11-26-2024 15:12-0400 Body weight 76.7 kg Theodora Hernandez SURGEON'S ASSISTANT.BATTERY CONTAINER TESTER [employer] Work Phone: [facility] 11-26-2024 15:12-0400 Diastolic blood pressure 60 mm[Hg] Theodora ZimmermanScotty SURGEON'S ASSISTANT.BATTERY CONTAINER TESTER ALUMINUM Work Phone: [facility] 11-26-2024 15:12-0400 Heart rate 62 /min Theodora Hernandez SURGEON'S ASSISTANT.BATTERY CONTAINER TESTER [employer]UM[employer]UM Work Phone: [facility] 11-26-2024 15:12-0400 SaO2% (BldA) [Mass fraction] 97 % Theodora Hernandez SURGEON'S ASSISTANT.BATTERY CONTAINER TESTER [employer] Work Phone: [facility] 11-26-2024 15:12-0400 Systolic blood pressure 120 mm[Hg] Thoedora MartinezScotty SURGEON'S ASSISTANT.BATTERY CONTAINER TESTER [employer]UM[employer]UM Work Phone: [facility] 09-26-2024 14:07-0500 Body mass index (BMI) [Ratio] 25.09 kg/m2 Samson Ragsdale DO Work Phone: [facility] 09-26-2024 14:07-0500 Body temperature 97 [degF] Samson Ragsdale DO Work Phone: [facility] 09-26-2024 14:07-0500 Body weight 74.84 kg Samson Ragsdale DO Work Phone: [facility] 09-26-2024 14:07-0500 Diastolic blood pressure 70 mm[Hg] Samson Ragsdale DO Work Phone: [facility] 09-26-2024 14:07-0500 Heart rate 64 /min Samson Ragsdale DO Work Phone: [facility] 09-26-2024 14:07-0500 Respiratory rate 20 /min Samson Ragsdale DO Work Phone: [facility] 09-26-2024 14:07-0500 Systolic blood pressure 138 mm[Hg] Samson Ragsdale DO Work Phone: [facility] 05-23-2024 14:45-0400 Diastolic blood pressure 66 mm[Hg] Malu Mendoza MD Work Phone: [facility] 05-23-2024 14:45-0400 Heart rate 61 /min Malu Mendoza MD Work Phone: [facility] 05-23-2024 14:45-0400 SaO2% (BldA) [Mass fraction] 98 % Malu Mendoza MD Work Phone: [facility] 05-23-2024 14:45-0400 Systolic blood pressure 147 mm[Hg] Malu Mendoza MD Work Phone: [facility] 05-23-2024 14:30-0400 Respiratory rate 18 /min Malu Mendoza MD Work Phone: [facility] 05-23-2024 14:11-0400 Body temperature 97.7 [degF] Malu Mendoza MD Work Phone: [facility] 05-23-2024 12:11-0400 Body height 172.7 cm Malu Mendoza MD Work Phone: [facility] 05-23-2024 12:11-0400 Body mass index (BMI) [Ratio] 24.78 kg/m2 Malu Mendoza MD Work Phone: [facility] 05-23-2024 12:11-0400 Body weight 73.94 kg Malu Mendoza MD Work Phone: [facility] 05-09-2024 13:31-0400 Body height 172.7 cm Pacc 1 Work Phone: [facility] 05-09-2024 13:31-0400 Body mass index (BMI) [Ratio] 24.78 kg/m2 Pacc 1 Work Phone: [facility] 05-09-2024 13:31-0400 Body temperature 97.7 [degF] Pacc 1 Work Phone: [facility] 05-09-2024 13:31-0400 Body weight 73.94 kg Pacc 1 Work Phone: [facility] 05-09-2024 13:31-0400 Diastolic blood pressure 68 mm[Hg] Pacc 1 Work Phone: [facility] 05-09-2024 13:31-0400 Heart rate 62 /min Pacc 1 Work Phone: [facility] 05-09-2024 13:31-0400 Respiratory rate 18 /min Pacc 1 Work Phone: [facility] 05-09-2024 13:31-0400 SaO2% (BldA) [Mass fraction] 96 % Pacc 1 Work Phone: [facility] 05-09-2024 13:31-0400 Systolic blood pressure 128 mm[Hg] Pacc 1 Work Phone: [facility] 04-13-2024 14:19-0400 Body height 172.7 cm Cristela Andersen APRN.CNP Work Phone: [facility] 04-13-2024 14:19-0400 Body mass index (BMI) [Ratio] 24.54 kg/m2 Cristela Troy SURGEON'S ASSISTANT.BATTERY CONTAINER TESTER ALUMINUM Work Phone: [facility] 04-13-2024 14:19-0400 Body weight 73.21 kg Cristela Troy SURGEON'S ASSISTANT.BATTERY CONTAINER TESTER ALUMINUM Work Phone: [facility] 04-13-2024 14:19-0400 Diastolic blood pressure 57 mm[Hg] Cristlea Troy SURGEON'S ASSISTANT.BATTERY CONTAINER TESTER [employer]UMINUM Work Phone: [facility] 04-13-2024 14:19-0400 Heart rate 64 /min Cristela Troy SURGEON'S ASSISTANT.BATTERY CONTAINER TESTER ALUMINUM Work Phone: [facility] 04-13-2024 14:19-0400 SaO2% (BldA) [Mass fraction] 96 % Cristela Troy SURGEON'S ASSISTANT.BATTERY CONTAINER TESTER ALUMINUM Work Phone: [facility] 04-13-2024 14:19-0400 Systolic blood pressure 116 mm[Hg] Cristela Troy SURGEON'S ASSISTANT.BATTERY CONTAINER TESTER ALUMINUM Work Phone: [facility] 03-26-2024 14:47-0400 Body mass index (BMI) [Ratio] 24.78 kg/m2 Samson Ragsdale DO Work Phone: [facility] 03-26-2024 14:47-0400 Body temperature 97.39 [degF] Samson Ragsdale DO Work Phone: [facility] 03-26-2024 14:47-0400 Body weight 73.94 kg Samson Ragsdale DO Work Phone: [facility] 03-26-2024 14:47-0400 Diastolic blood pressure 60 mm[Hg] Samson Ragsdale DO Work Phone: [facility] 03-26-2024 14:47-0400 Heart rate 64 /min Samson Ragsdale DO Work Phone: [facility] 03-26-2024 14:47-0400 Respiratory rate 20 /min Samson Ragsdale DO Work Phone: [facility] 03-26-2024 14:47-0400 Systolic blood pressure 120 mm[Hg] Samson Ragsdale DO Work Phone: [facility] 10-04-2023 10:21-0500 Diastolic blood pressure 68 mm[Hg] Brittany West DO Work Phone: [facility] 10-04-2023 10:21-0500 Heart rate 64 /min Brittany West DO Work Phone: [facility] 10-04-2023 10:21-0500 SaO2% (BldA) [Mass fraction] 97 % Brittany West DO Work Phone: [facility] 10-04-2023 10:21-0500 Systolic blood pressure 137 mm[Hg] Brittany West DO Work Phone: [facility] 09-26-2023 12:20-0500 Body temperature 97.2 [degF] Samson Ragsdale DO Work Phone: [facility] 09-26-2023 12:20-0500 Body weight 79.83 kg Samson Ragsdale DO Work Phone: [facility] 09-26-2023 12:20-0500 Diastolic blood pressure 64 mm[Hg] Samson Ragsdlae DO Work Phone: [facility] 09-26-2023 12:20-0500 Heart rate 64 /min Samson Ragsdale DO Work Phone: [facility] 09-26-2023 12:20-0500 Respiratory rate 20 /min Samson Ragsdale DO Work Phone: [facility] 09-26-2023 12:20-0500 Systolic blood pressure 138 mm[Hg] Samson Ragsdale DO Work Phone: [facility] 05-31-2023 10:23-0400 Diastolic blood pressure 58 mm[Hg] Brittany West DO Work Phone: [facility] 05-31-2023 10:23-0400 Heart rate 64 /min Brittany West DO Work Phone: [facility] 05-31-2023 10:23-0400 SaO2% (BldA) [Mass fraction] 95 % Brittany West DO Work Phone: [facility] 05-31-2023 10:23-0400 Systolic blood pressure 122 mm[Hg] Brittany West DO Work Phone: [facility] 05-28-2023 15:25-0400 Heart rate 74 /min DUSTIN MIJARES MD [address] 05-28-2023 12:38-0400 Heart rate 64 /min DUSTIN MIJARES MD [address] 05-28-2023 10:25-0400 Blood Pressure Cuff Size DUSTIN MIJARES MD [address] [place] [address] 05-28-2023 10:25-0400 Blood Pressure Location DUSTIN MIJARES MD [address] [place] [address] 05-28-2023 10:25-0400 Blood Pressure Method DUSTIN MIJARES MD [address] [place] [address] 05-28-2023 10:25-0400 Body temperature 98.24 [degF] DUSTIN MIJARES MD [address] [place] [address] 05-28-2023 10:25-0400 Diastolic Blood Pressure Non-Invasive 58 1 DUSTIN MIJARES MD [facility] 05-28-2023 10:25-0400 Reason For Taking VItal Signs DUSTIN MIJARES MD [facility] 05-28-2023 10:25-0400 Respiratory rate 18 /min DUSTIN MIJARES MD [address] [place] [address] 05-28-2023 10:25-0400 Systolic Blood Pressure Non-Invasive 110 1 DUSTIN MIJARES MD [address] [place] [address] 05-28-2023 09:55-0400 diastolic 64 mm[Hg] DUSTIN MIJARES MD [address] [place] [address] 05-28-2023 09:55-0400 diastolic 70 mm[Hg] DUSTIN MIJARES MD [address] [place] [address] 05-28-2023 09:55-0400 Heart rate 73 /min DUSTIN MIJARES MD [address] [place] [address] 05-28-2023 09:55-0400 Heart rate 85 /min DUSTIN MIJARES MD [address] [place] [address] 05-28-2023 09:55-0400 Respiratory rate 18 /min DUSTIN MIJARES MD [address] [place] [address] 05-28-2023 09:55-0400 Respiratory rate 20 /min DUSTIN MIJARES MD [address] [place] [address] 05-28-2023 09:55-0400 systolic 140 mm[Hg] DUSTIN MIJARES MD [address] [place] [address] 05-28-2023 09:55-0400 systolic 142 mm[Hg] DUSTIN MIJARES MD [address] [place] [address] 05-28-2023 05:02-0400 Heart rate 73 /min DUSTIN MIJARES MD [address] [place] [address] 05-28-2023 05:02-0400 Mean blood pressure 78 mm[Hg] DUSTIN MIJARES MD [address] [place] [address] 05-27-2023 23:22-0400 Mean blood pressure 79 mm[Hg] DUSTIN MIJARES MD [address] [place] [address] 05-27-2023 22:50-0400 Body temperature 98.24 [degF] DUSTIN MIJARES MD [address] [place] [address] 05-27-2023 22:50-0400 Reason For Taking VItal Signs DUSTIN MIJARES MD [address] [place] [address] 05-27-2023 21:30-0400 Body temperature 98.24 [degF] DUSTIN MIJARES MD [address] [place] [address] 05-27-2023 21:30-0400 Mean blood pressure 91 mm[Hg] DUSTIN MIJARES MD [address] [place] [address] 05-27-2023 21:30-0400 Reason For Taking VItal Signs DUSTIN MIJARES MD [address] [place] [address] 05-27-2023 08:13-0400 Blood Pressure Cuff Size DUSTIN MIJARES MD [address] [place] [address] 05-27-2023 08:13-0400 Blood Pressure Location DUSTIN MIJARES MD [address] [place] [address] 05-27-2023 08:13-0400 Blood Pressure Method DUSTIN MIJARES MD [address] [place] [address] 05-27-2023 03:37-0400 Blood Pressure Cuff Size DUSTIN MIJARES MD [address] [place] [address] 05-27-2023 03:37-0400 Blood Pressure Location DUSTIN MIJARES MD [address] [place] [address] 05-27-2023 03:37-0400 Blood Pressure Method DUSTIN MIJARES MD [address] [place] [address] 05-24-2023 21:25-0400 Body height 172.7 cm DUSTIN MIJARES MD [address] [place] [address] 05-24-2023 21:25-0400 Body weight 77.7 kg DUSTIN MIJARES MD [address] [place] [address] 05-24-2023 21:25-0400 Body weight 26.05 kg/m2 DUSTIN MIJARES MD [address] [place] [address] 05-24-2023 21:15-0400 Heart rate 64 /min DUSTIN MIJARES MD [address] 03-23-2023 13:50-0400 Body weight 78.93 kg Samson Ragsdale DO Work Phone: [facility] 03-23-2023 13:50-0400 Diastolic blood pressure 70 mm[Hg] Samson Ragsdale DO Work Phone: [facility] 03-23-2023 13:50-0400 Heart rate 58 /min Samson Ragsdale DO Work Phone: [facility] 03-23-2023 13:50-0400 Respiratory rate 14 /min Samson Ragsdale DO Work Phone: [facility] 03-23-2023 13:50-0400 SaO2% (BldA) [Mass fraction] 98 % Samson Ragsdale DO Work Phone: [facility] 03-23-2023 13:50-0400 Systolic blood pressure 112 mm[Hg] Samson Ragsdale DO Work Phone: [facility] 11-30-2022 12:33-0400 Body temperature 97.3 [degF] Tonny Ezequiel SURGEON'S ASSISTANT.BATTERY CONTAINER TESTER [employer]UMINUM Work Phone: [facility] 11-30-2022 12:33-0400 Body weight 78.47 kg Tonny Ezequiel SURGEON'S ASSISTANT.BATTERY CONTAINER TESTER [employer]UM[employer]UM Work Phone: [facility] 11-30-2022 12:33-0400 Diastolic blood pressure 62 mm[Hg] Tonny Ezequiel SURGEON'S ASSISTANT.BATTERY CONTAINER TESTER [employer] Work Phone: [facility] 11-30-2022 12:33-0400 Heart rate 64 /min Tonny Ezequiel SURGEON'S ASSISTANT.BATTERY CONTAINER TESTER [employer] Work Phone: [facility] 11-30-2022 12:33-0400 Respiratory rate 18 /min Tonny Ezequiel SURGEON'S ASSISTANT.BATTERY CONTAINER TESTER [employer]UMINUM Work Phone: [facility] 11-30-2022 12:33-0400 SaO2% (BldA) [Mass fraction] 97 % Tonny Ezequiel SURGEON'S ASSISTANT.BATTERY CONTAINER TESTER [employer] Work Phone: [facility] 11-30-2022 12:33-0400 Systolic blood pressure 126 mm[Hg] Tonny Ezequiel SURGEON'S ASSISTANT.BATTERY CONTAINER TESTER [employer] Work Phone: [facility] 09-22-2022 14:03-0500 Body temperature 97 [degF] Samson Ragsdale DO Work Phone: [facility] 09-22-2022 14:03-0500 Body weight 79.38 kg Samson Ragsdale DO Work Phone: [facility] 09-22-2022 14:03-0500 Diastolic blood pressure 60 mm[Hg] Samson Ragsdale DO Work Phone: [facility] 09-22-2022 14:03-0500 Heart rate 64 /min Samson Ragsdale DO Work Phone: [facility] 09-22-2022 14:03-0500 Respiratory rate 20 /min Samson Ragsdale DO Work Phone: [facility] 09-22-2022 14:03-0500 Systolic blood pressure 110 mm[Hg] Samson Ragsdale DO Work Phone: [facility] 07-28-2022 10:01-0500 Body temperature 97.5 [degF] Jocelin Athy PA-C Work Phone: [facility] 07-28-2022 10:01-0500 Body weight 79.38 kg Jocelin Athy PA-C Work Phone: [facility] 07-28-2022 10:01-0500 Diastolic blood pressure 72 mm[Hg] Jocelin Athy PA-C Work Phone: [facility] 07-28-2022 10:01-0500 Heart rate 60 /min Jocelin Athy PA-C Work Phone: [facility] 07-28-2022 10:01-0500 Respiratory rate 18 /min Jocelin Athy PA-C Work Phone: [facility] 07-28-2022 10:01-0500 SaO2% (BldA) [Mass fraction] 97 % Jocelin Athy PA-C Work Phone: [facility] 07-28-2022 10:01-0500 Systolic blood pressure 136 mm[Hg] Jocelin Athy PA-C Work Phone: [facility] 03-23-2022 14:32-0400 Body temperature 97.5 [degF] Samson Ragsdale DO Work Phone: [facility] 03-23-2022 14:32-0400 Body weight 76.2 kg Samson Ragsdale DO Work Phone: [facility] 03-23-2022 14:32-0400 Diastolic blood pressure 70 mm[Hg] Samson Ragsdale DO Work Phone: [facility] 03-23-2022 14:32-0400 Heart rate 64 /min Samson Ragsdale DO Work Phone: [facility] 03-23-2022 14:32-0400 Respiratory rate 16 /min Samson Ragsdale DO Work Phone: [facility] 03-23-2022 14:32-0400 Systolic blood pressure 110 mm[Hg] Samson Ragsdale DO Work Phone: [facility] 06-27-2017 09:32-0500 BMI (Body Mass Index) 27.06 kg/m2 Manjujoselito Miller [facility] Work Phone: 06-27-2017 09:32-0500 BP Diastolic 50 mm[Hg] Manjujoselito Miller [facility] Work Phone: 06-27-2017 09:32-0500 BP Systolic 120 mm[Hg] [facility] Work Phone: 06-27-2017 09:32-0500 Height 172.72 cm Manjujoselito Miller [facility] Work Phone: 06-27-2017 09:32-0500 Pulse (Heart Rate) 84 /min [facility] Work Phone: 06-27-2017 09:32-0500 Respiratory Rate 20 /min [facility] Work Phone: 06-27-2017 09:32-0500 Weight 80.74 kg [facility]jujoselito [facility] Work Phone: 04-21-2017 15:16-0400 BMI (Body Mass Index) 28.58 kg/m2 [facility] [employer] [facility] Work Phone: 04-21-2017 15:16-0400 BP Diastolic 70 mm[Hg] [facility] Work Phone: 04-21-2017 15:16-0400 BP Systolic 150 mm[Hg] Yu Joshi RN [facility] Work Phone: 04-21-2017 15:16-0400 Height 172.72 cm Yu Joshi RN [facility] Work Phone: 04-21-2017 15:16-0400 Pulse (Heart Rate) 88 /min Yu Joshi RN [facility] Work Phone: 04-21-2017 15:16-0400 Respiratory Rate 18 /min Yu Joshi RN [facility] Work Phone: 04-21-2017 15:16-0400 Weight 85.28 kg Yu Joshi RN [facility] Work Phone: 04-20-2017 10:41-0400 Body Temperature 98.2 [degF] Yu Joshi RN [facility] Work Phone: Encounters Encounter Date Encounter Type Care Provider Facility Start: 01-29-2025 ambulatory Samson Ruiz y:[facility] Start: 01-22-2025 ambulatory Srini Montano Facility:[facility] Start: 01-18-2025 ambulatory Samson Ruiz y:[facility] Start: 01-17-2025 End: 01-17-2025 Office outpatient visit 25 minutes Amy Castaneda APRN.CNP Work Phone: [facility] Comment on above: SOB (shortness of br eath) (Primary Dx); Atherosclerosis of [place]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[place] heart with angina pectoris; Hypertensive kidney disease with chronic kidney disease stage IV (HCC); Stented coronary artery; Dysphagia, unspecified type; Vision changes Start: 01-15-2025 ambulatory Samson Ruiz y:[facility] Start: 01-15-2025 End: 01-15-[address] Srini Montano MD -[facility] Work Phone: Start: 01-15-2025 End: 01-15-[address] Samson Ragsdale DO Work Phone: [facility] Work Phone: Start: 01-13-2025 End: 01-14-2025 Emergency department patient visit Dr. Samson Ragsdale DO Work Phone: -Emergency Department Work Phone: Start: 01-09-2025 End: 01-09-2025 Subsequent hospital visit by physician Sudeep Counts Include [address] Beds At The [facility] [place] Work Phone: Radiology Comment on above: Acute cough [R05.1] Start: 01-09-2025 End: 01-09-2025 Patient encounter procedure Khloe Ibarra BATTERY CONTAINER TE[employer] Work Phone: [facility] Comment on above: Acute cough (Primary Dx); Acute non-recurrent maxillary sinusitis Start: 01-09-2025 End: 01-09-2025 ambulatory KHLOE FRED Facility:[facility] Start: 12-10-2024 End: 12-10-2024 ambulatory [facility] Ross [facility] [place] Start: 12-10-2024 End: 12-10-2024 Patient encounter procedure Mary Ross MA [facility] [place] Comment on above: Population Health Na vigation Outreach ([facility] Start: 11-30-2024 End: 11-30-2024 Follow-up encounter Theodora Hernandez APRN.BATTERY CONTAINER TESTER [employer]UMINUM Work Phone: Internal [facility] Start: 11-26-2024 End: 11-26-2024 Subsequent hospital visit by physician Sudeep Counts Include [address] At [facility] Work Phone: Radiology Comment on above: Acute pain of both s houlders [M25.511, M25.512] Start: 11-26-2024 End: 11-26-2024 Office outpatient visit 15 minutes Theodora Hernandez APRN.BATTERY CONTAINER TESTER [employer]UMINUM Work Phone: Internal Medicine [facility] Comment on above: Upper back pain (Maty yesica Dx); Acute pain of both shoulders; Type 2 diabetes mellitus without complication, with long-term current use of insulin (HCC) Start: 11-26-2024 End: 11-26-2024 ambulatory THEODORA HERNANDEZ Facility:[facility] Start: 10-25-2024 End: 10-25-2024 Refill Samson Jamir Ragsdale DO Work Phone: [facility] Comment on above: Refill Request Start: 09-26-2024 End: 09-26-2024 ambulatory SAMSON Blackwood RAGSDALE Facility:[facility] Start: 09-26-2024 End: 09-26-2024 Patient encounter procedure Samson Ragsdale DO Work Phone: [facility] Comment on above: 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, with long-term current use of insulin (HCC) (Primary Dx); Essential hypertension, benign; CKD (chronic kidney disease) stage 4, GFR 15-29 ml/min ([facility]); Hypertensive heart disease without heart failure; Other polyneuropathy; Hypertensive kidney disease with chronic kidney disease stage IV (HCC); Arthritis, multiple joint involvement; Gout of multiple sites, unspecified cause, unspecified chronicity; Atherosclerosis of [place]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[place] heart with angina pectoris ([facility]); Pure hypercholesterolemia; Vitamin D deficiency Start: 09-19-2024 End: 11-19-2024 Follow-up encounter Desirae Irving APRN.CNP Work Phone: [facility] Start: 09-17-2024 End: 09-17-2024 Orders Only Desirae Irving APRN.JAIRON Work Phone: [facility] Comment on above: Controlled type 2 di [...] above: Medication Problem Start: 05-31-2024 End: 05-31-2024 ambulatory SAMSON MARIAON Facility:[facility] Start: 05-31-2024 End: 05-31-2024 Patient encounter procedure Cristela Troy BAKER Work Phone: General Surgery Comment on above: Collagenous colitis (Primary Dx) Start: 05-30-2024 End: 05-30-2024 Telephone encounter Cristela Andersen APRN.CNP Work Phone: General Surgery Comment on above: Appointment Start: 05-23-2024 ambulatory CRISTIN KING Facility:[facility] Start: 05-23-2024 End: 05-23-2024 Subsequent hospital visit by physician Malu Mendoza MD Work Phone: [facility] Comment on above: Chronic diarrhea [K5 2.9] Start: 05-09-2024 End: 05-09-2024 Admission to establishment [facility] [place] [facility] Work Phone: Pre Anesthesia Start: 05-09-2024 End: 05-09-2024 ambulatory SAMSON RAGSDALE Facility:[facility] Start: 05-09-2024 End: 05-09-2024 Anesthesia consultation [facility] Work Phone: Pre Anesthesia Comment on above: Pre-operative examin ation (Primary Dx); Other polyneuropathy; Abdominal aortic aneurysm (AAA) without rupture, unspecified part (HCC); Atherosclerosis of red [place]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red lake heart with angina pectoris (HCC); Complete atrioventricular block (HCC); Essential hypertension, benign; Hypertensive kidney disease with chronic kidney disease stage IV (HCC); Pure hypercholesterolemia; Carotid atherosclerosis, bilateral; Diaphragmatic hernia without obstruction and without gangrene; 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, with long-term current use of insulin (HCC); Hypercalcemia; Iron deficiency anemia due to chronic blood loss; History of prostate cancer; Gout of multiple sites, unspecified cause, unspecified chronicity; Psoriasis; Dementia in other diseases classified elsewhere, unspecified severity, with mood disturbance (HCC) Start: 05-09-2024 End: 05-09-2024 Preprocedural examination done [facility] [place] [facility] Work Phone: [facility] Start: 05-08-2024 End: 08-21-2024 Telephone encounter Samson Ragsdale DO Work Phone: [facility] Comment on above: Erroneous encounter- disregard Start: 04-27-2024 End: 04-27-2024 Refill Samson Russellrison DO Work Phone: [facility] Comment on above: Refill Request Start: 04-16-2024 End: 06-05-2024 Telephone encounter Cristela Andersen MICHI.BATTERY CONTAINER TE[employer] Work Phone: General Surgery Comment on above: Appointment Start: 04-13-2024 End: 04-13-2024 ambulatory SAMSON RUSSELLRISON Facility:[facility] Start: 04-13-2024 End: 04-13-2024 Patient encounter procedure Cristela Andersen SURGEON'S ASSISTANT.BATTERY CONTAINER TESTER [employer] Work Phone: General Surgery Comment on above: Gastroesophageal ref lux disease without esophagitis (Primary Dx); Chronic diarrhea; Generalized abdominal pain Start: 04-12-2024 End: 04-12-2024 Telephone encounter Samson Russellrison DO Work Phone: [facility] Comment on above: Patient Question Start: 04-06-2024 End: 04-06-2024 Refill Samson Russellrison DO Work Phone: [facility] Comment on above: Refill Request Start: 04-03-2024 End: 04-03-2024 Refill Samson Russellrison DO Work Phone: [facility] Comment on above: Refill Request Start: 03-26-2024 End: 03-26-2024 ambulatory SAMSON L RAGSDALE Facility:[facility] Start: 03-26-2024 End: 03-26-2024 Patient encounter procedure Samson L Ragsdale DO Work Phone: [facility] Comment on above: Chronic diarrhea (Pr imary Dx); Generalized abdominal pain; Other polyneuropathy; Hypertensive kidney disease with chronic kidney disease stage IV (HCC); Essential hypertension, benign; Atherosclerosis of [place]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red [place] heart with angina pectoris (HCC); Abdominal aortic aneurysm (AAA) without rupture, unspecified part (HCC); 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, with long-term current use of insulin (HCC); Arthritis, multiple joint involvement; Stage 3b chronic kidney disease (HCC) Start: 03-19-2024 End: 03-19-2024 ambulatory DESIRAE IRVING Facility:[facility] Start: 03-09-2024 Telephone encounter Samson rodriguez DO Work Phone: [facility] [place] Comment on above: Orders Start: 01-27-2024 Refill Samson irizarry DO Work Phone: [facility] Comment on above: Refill Request Start: 11-10-2023 Telephone encounter Samson rodriguez DO Work Phone: [facility] Start: 10-24-2023 Refill Samson irizarry DO Work Phone: [facility] [place] Comment on above: Refill Request Start: 10-04-2023 End: 10-04-2023 Patient encounter procedure Brittany Delarosa Brett DO Work Phone: Vascular Surgery Comment on above: Bilateral carotid ar pawan stenosis (Primary Dx); Infrarenal abdominal aortic aneurysm (AAA) without rupture (HCC) Start: 09-27-2023 Telephone encounter Samosn rodriguez DO Work Phone: [facility] Start: 09-26-2023 End: 09-26-2023 Patient encounter procedure Samson Ragsdale DO Work Phone: [facility] Comment on above: CKD (chronic kidney disease) stage 4, GFR 15-29 ml/min (HCC) (Primary Dx); Hypertensive heart disease without heart failure; Essential hypertension, benign; Diarrhea, unspecified type; Complete atrioventricular block (HCC); Malignant neoplasm of prostate (HCC); Type 2 diabetes mellitus with stage 4 chronic kidney disease, with long-term current use of insulin (HCC); Atherosclerosis of [place]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[place] heart with angina pectoris (HCC); Coronary artery 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 rich plaque; Other polyneuropathy; Gout of multiple sites, unspecified cause, unspecified chronicity; Arthritis, multiple joint involvement; Tinnitus, bilateral; Other specified hearing loss of both ears; Actinic keratosis Start: 09-19-2023 Orders Only Desirae Irving APRN.BATTERY CONTAINER TE[employer] Work Phone: [facility] [place] Comment on above: Type 2 diabetes dominic itus with stage 4 chronic kidney disease, with long-term current use of insulin (HCC) (Primary Dx); Malignant neoplasm of prostate (HCC); Essential hypertension, benign; History of prostate cancer Start: 07-05-2023 Refill Samson irizarry DO Work Phone: [facility] Comment on above: Refill Request Start: 06-07-2023 Telephone encounter Samson rodriguez DO Work Phone: [facility] Comment on above: [facility] Forms Start: 05-31-2023 End: 05-31-2023 Patient encounter procedure Brittany West DO Work Phone: Vascular Surgery Comment on above: Bilateral carotid ar pawan stenosis (Primary Dx); Infrarenal abdominal aortic aneurysm (AAA) without rupture (HCC) Start: 05-30-2023 Telephone encounter Samson rodriguez DO Work Phone: [facility] Comment on above: [facility] Benefit Paperwork Start: 05-24-2023 End: 05-28-2023 Evaluation and management of inpatient DUSTIN MIJARES MD Facility:A Start: 05-24-2023 End: 05-28-2023 Evaluation and management of inpatient DUSTIN MIJARES MD [facility] Start: 05-09-2023 Telephone encounter Samson rodriguez DO Work Phone: [facility] Comment on above: Physician requesting call back Start: 05-09-2023 End: 05-09-2023 Nursing evaluation of patient and report Nurse Card Admin Counts Include 234 Beds At [facility] Work Phone: Cardiology Comment on above: Screening for ischem ic heart disease (Primary Dx) Start: 05-09-2023 End: 05-09-2023 Subsequent hospital visit by physician [facility] Work Phone: Nuclear Medicine Comment on above: SOB (shortness of br eath) [R06.02] Start: 03-24-2023 Telephone encounter Samson rodriguez DO Work Phone: [facility] Comment on above: Results Start: 03-23-2023 End: 03-23-2023 Subsequent hospital visit by physician Xr Counts Include 234 Beds At [facility] Work Phone: Radiology Comment on above: SOB (shortness of br eath) [R06.02] Start: 03-23-2023 End: 03-23-2023 Patient encounter procedure Samson Ragsdale DO Work Phone: [facility] Comment on above: SOB (shortness of br eath) (Primary Dx); Coronary artery 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 rich plaque; Chest pain on breathing; Bilateral chronic knee pain; 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; Type 2 diabetes mellitus with stage 4 chronic kidney disease, with long-term current use of insulin (HCC); Malignant neoplasm of prostate (HCC); Atherosclerosis of [place]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[place] heart with angina pectoris ([facility]); Other polyneuropathy; Essential hypertension, benign; Gout of multiple sites, unspecified cause, unspecified chronicity; Arthritis, multiple joint involvement; Vitamin D deficiency; CKD (chronic kidney disease) stage 4, GFR 15-29 ml/min ([facility]) Start: 03-07-2023 Telephone encounter Samson rodriguez DO Work Phone: [address] [place] [address] Comment on above: Orders Start: 02-02-2023 Refill Samson irizarry DO Work Phone: [facility] Comment on above: Refill Request Start: 11-30-2022 End: 11-30-2022 Patient encounter procedure Tonny Nieves APRN.BATTERY CONTAINER TESTER [employer]INUM Work Phone: [facility] Comment on above: Sinobronchitis (Prim vinita Dx) Start: 10-27-2022 Refill Samson irizarry DO Work Phone: [facility] Comment on above: Refill Request Start: 10-08-2022 Telephone encounter Samson Blackwood Mitra rodriguez DO Work Phone: [facility] Comment on above: Results Start: 09-24-2022 Refill Samson irizarry DO Work Phone: [facility] Comment on above: Refill Request Start: 09-22-2022 End: 09-22-2022 Patient encounter procedure Samson Ragsdale DO Work Phone: [facility] Comment on above: Controlled type 2 di abetes mellitus without complication, without long-term current use of insulin (HCC) (Primary Dx); Hypertensive heart disease without heart failure; Essential hypertension, benign; Abdominal aortic aneurysm (AAA) without rupture, unspecified part (HCC); Atherosclerosis of common carotid artery; Coronary artery 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 rich plaque; Stenosis of left carotid artery; CKD (chronic kidney disease) stage 4, GFR 15-29 ml/min (HCC); Gout of multiple sites, unspecified cause, unspecified chronicity; Pure hypercholesterolemia; Arthritis, multiple joint involvement Start: 08-05-2022 Telephone encounter Samson rodriguez DO Work Phone: [facility] Comment on above: Orders Start: 07-28-2022 End: 07-28-2022 Patient encounter procedure Jocelin Lange PA-C Work Phone: [facility] Comment on above: Bronchitis (Primary Dx) Start: 06-10-2022 Refill Samson irizarry DO Work Phone: [facility] Comment on above: Refill Request Start: 04-22-2022 Refill Samson irizarry DO Work Phone: [facility] Comment on above: Refill Request Start: 03-23-2022 End: 03-23-2022 Patient encounter procedure Samson Russellrison DO Work Phone: [facility] Comment on above: Controlled type 2 di abetes mellitus without complication, without long-term current use of insulin (HCC) (Primary Dx); Essential hypertension, benign; Hypertensive heart disease without heart failure; CKD (chronic kidney disease) stage 4, GFR 15-29 ml/min ([facility]); Gout of multiple sites, unspecified cause, unspecified chronicity; Arthritis, multiple joint involvement; History of prostate cancer; Other iron deficiency anemia Start: 01-13-2022 Refill Samson irizarry DO Work Phone: [facility] Comment on above: Refill Request Start: 12-04-2021 Telephone encounter Samson rodriguez DO Work Phone: [facility] Comment on above: Blood Pressure Start: 11-25-2021 End: 11-25-2021 Subsequent hospital visit by physician Xr Counts Include 234 Beds At [facility] Work Phone: Radiology Comment on above: Cough [R05.9] Start: 09-18-2020 End: 09-18-2020 Subsequent hospital visit by physician Xr Counts Include 234 Beds At [facility] Work Phone: Radiology Comment on above: Cough [R05] Start: 06-09-2020 End: 06-09-2020 Subsequent hospital visit by physician Xr Counts Include 234 Beds At [facility] Work Phone: Radiology Comment on above: Pain of left scapula [M89.8X1] Procedures Date Procedure Procedure Detail Performing Clinician Start: 01-13-2025 X-ray of chest, PA and lateral views Dr. Samson Ragsdale DO Work Phone: Start: 01-13-[address] Nesha Ragsdale DO Work Phone: Start: 01-09-2025 Radiologic exam chest 2 views Khloe crow APRN.BATTERY CONTAINER TE[employer] Work Phone: Start: 05-23-2024 Gluc bld gluc mntr dev cleared fda spec home use Cristin Nieves MD Work Phone: Start: 05-23-2024 Inf agent det nucleic acid clostridium amp probe Malu Mendoza MD Work Phone: Start: 05-23-2024 Colonoscopy flx dx w/collj spec when pfrmd Cristela Andersen SURGEON'S ASSISTANT.BATTERY CONTAINER TESTER [employer]INUM Work Phone: Start: 05-23-2024 Esophagogastroduodenoscopy transoral diagnostic Cristela Andersen SURGEON'S ASSISTANT.BATTERY CONTAINER TESTER [employer]UM Work Phone: Start: 05-23-2024 Ecg routine ecg w/least 12 lds i&r only Colt Rice MD Work Phone: Start: 05-23-2024 Gluc bld gluc mntr dev cleared fda spec home use Cristin Nieves MD Work Phone: Start: 05-09-2023 Myocardial spect multiple studies Samson Mariaon DO Work Phone: Start: 03-23-2023 Radex spine lumbosacral 2/3 views Samson Mariaon DO Work Phone: Start: 03-23-2023 Radiologic exam chest 2 views Samson rodriguez DO Work Phone: Start: 03-23-2022 Adult depression screening assessment Samson Mariaon DO Work Phone: Start: 11-25-2021 Radiologic exam chest 2 views Jenny Espinal ggs SURGEON'S ASSISTANT.BATTERY CONTAINER TESTER [employer]UMINUM Work Phone: Start: 12-01-2020 Adult depression screening assessment Samson Ragsdale DO Work Phone: Start: 09-18-2020 Radiologic exam chest 2 views Theron Herrera MD Work Phone: Start: 06-09-2020 Radex spine cervical 4 or 5 views Samson Mariaon DO Work Phone: Start: 02-06-2019 H/O: surgery History of prostatectomy Samson Mariaon DO Work Phone: Start: 06-27-2017 End: 06-27-2017 [...] Phone: Start: 04-05-2017 End: 06-27-2017 Referral to public transit specialist Rich Sanchez MD Work Phone: Start: 03-30-2017 End: 06-27-2017 *Hepatic Function Panel Rich Sanchez MD Work Phone: Start: 03-30-2017 End: 06-27-2017 Lipid 1996 panel - Serum or Plasma Rich Sanchez MD Work Phone: Start: 03-23-2017 End: 03-24-2017 *BMP Dustin Garcia UNDERWRITING TECHNICIAN Work Phone: Start: 03-23-2017 End: 03-24-2017 aPTT in Platelet poor plasma by Coagulation assay Dustin Garcia UNDERWRITING TECHNICIAN Work Phone: Start: 03-23-2017 End: 03-24-2017 CBC W Auto Differential panel - Blood Dustin Garcia UNDERWRITING TECHNICIAN Work Phone: Start: 03-23-2017 End: 03-24-2017 INR in Platelet poor plasma by Coagulation assay Dustin Garcia UNDERWRITING TECHNICIAN Work Phone: Start: 03-23-2017 End: 04-15-2017 Left Heart Cath W/Grafts Dustin Garcia UNDERWRITING TECHNICIAN Work Phone: Start: 03-07-2017 End: 03-08-2017 Natriuretic peptide B [Mass/volume] in Blood Dustin Garcia UNDERWRITING TECHNICIAN Work Phone: Start: 03-07-2017 End: 04-15-2017 Stress Echocardiogram (treadmill) Dustin Garcia UNDERWRITING TECHNICIAN Work Phone: Start: 02-25-2017 End: 04-15-2017 Ecg routine ecg w/least 12 lds w/i&r Pat Greenfield PA-C Work Phone: Start: 02-16-2017 End: 02-16-2017 *BMP Rich Sanchez MD Work Phone: Start: 02-16-2017 End: 02-16-2017 *CBC with Differential Rich Sanchez MD Work Phone: Start: 02-16-2017 [...] Phone: Start: 01-18-2017 End: 01-19-2017 Referral to public transit specialist Pat Greenfield PA-C Work Phone: Start: 12-31-2016 End: 01-03-2017 *BMP Pat Greenfield PA-C Work Phone: Start: 12-31-2016 End: 01-03-2017 Natriuretic peptide B [Mass/volume] in Blood Pat Greenfield PA-C Work Phone: Start: 12-31-2016 End: 12-31-2016 Nurse, Teaching, Wound Check (no charge) Rich Sanchez MD Work Phone: Adenoid excision DUSTIN GOODMAN MD Carotid endarterectomy DUSTIN MIJARES MD Coronary artery bypass graft DUSTIN MIJARES MD History of coronary artery bypass grafting H/O coronary artery bypass surgery Dr. Samson Ragsdale DO Work Phone: Comment on above: CABG x 1 CASTILLO-LAD 1994 History of placement of stent for coronary artery disease History of coronary artery stent placement Dr. Samson Ragsdale DO Work Phone: Comment on above: PCI-DAVID-Mid LCX 2.25 x 23 mm Xience 2004 ; PCI-DAVID-RCA 3.50 x 16 mm Synergy 12/20/16; TJB-IKS-Qxct LCX 2.0 x 20 mm Promus Synergy 03/30/2017 Percutaneous translu jay coronary angioplasty PTCA - Percutaneous transluminal coronary angioplasty DUSTIN MIJARES MD Tonsillectomy DUSTIN MIJARES MD Plan of Treatment Date Care Activity Detail Author Start: 05-02-2033 Urine microalbumin profile DTaP,Tdap,Td Vaccine (3 - Td or Tdap) [facility] Start: 09-26-2025 Covid-19 Vaccine ( season) Covid-19 Vaccine ( season) [facility] Comment on above: Postponed from 04/01/2024 (Declined at t his time) Start: 09-17-2025 Hepatitis B surface antibody level LDL Cholesterol [facility] Start: 04-02-2025 End: 04-02-2025 Patient encounter procedure 04/02/2025 2:40 PM EDT Office Visit [facility] [address] [place], [place] [phone] Samson Ragsdale DO [address] [place], [place] [id number] 6 month follow up [facility] Comment on above: 6 month follow up Start: 04-01-2025 Influenza vaccination Influenza Vaccine (Season Ended) [facility] Start: 03-26-2025 End: 06-25-2025 25-hydroxyvitamin D3 [Mass/volume] in Serum or Plasma VITAMIN D 25 HYDROXY Lab Routine Vitamin D deficiency Expected: 03/26/2025, Expires: 06/25/2025 [facility] Comment on above: Expected: 03/26/2025, Expires: Start: 03-26-2025 End: 06-25-2025 CBC panel - Blood by Automated count COMPLETE BLOOD COUNT Lab Routine 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, with long-term current use of insulin (HCC) Expected: 03/26/2025, Expires: 06/25/2025 [facility] Comment on above: Expected: 03/26/2025, Expires: Start: 03-26-2025 End: 06-25-2025 Comprehensive metabolic 2000 panel - Serum or Plasma COMPREHENSIVE METABOLIC PANEL Lab Routine 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, with long-term current use of insulin (HCC) Expected: 03/26/2025, Expires: 06/25/2025 [facility] Comment on above: Expected: 03/26/2025, Expires: Start: 03-26-2025 End: 06-25-2025 Hemoglobin A1c in Blood HEMOGLOBIN A1C Lab Routine 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, with long-term current use of insulin (HCC) Expected: 03/26/2025, Expires: 06/25/2025 [facility] Work Phone: Comment on above: Expected: 03/26/2025, Expires: Start: 03-26-2025 End: 06-25-2025 Iron and Iron binding capacity panel - Serum or Plasma IRON AND TIBC Lab Routine 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, with long-term current use of insulin (HCC) Expected: 03/26/2025, Expires: 06/25/2025 [facility] Comment on above: Expected: 03/26/2025, Expires: Start: 03-26-2025 End: 06-25-2025 Lipid 1996 panel - Serum or Plasma LIPID PANEL BASIC Lab Routine Pure hypercholesterolemia Expected: 03/26/2025, Expires: 06/25/2025 [facility] Comment on above: Expected: 03/26/2025, Expires: Start: 03-26-2025 End: 06-25-2025 Magnesium [Mass/volume] in Serum or Plasma MAGNESIUM Lab Routine 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, with long-term current use of insulin (HCC) Expected: 03/26/2025, Expires: 06/25/2025 [facility] Comment on above: Expected: 03/26/2025, Expires: Start: 03-26-2025 End: 06-25-2025 Microalbumin/Creatinine [Mass Ratio] in Urine ALBUMIN/CREATININE RATIO, URINE Lab Routine 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, with long-term current use of insulin (HCC) Expected: 03/26/2025, Expires: 06/25/2025 [facility] Comment on above: Expected: 03/26/2025, Expires: Start: 03-19-2025 Hepatitis B surface antibody level LDL Cholesterol [facility] Start: 03-17-2025 Hemoglobin A1c measurement HbA1C [facility] Start: 01-28-2025 Influenza vaccination Influenza Vaccine (#1) [facility] Comment on above: Postponed from 04/01/2024 (Declined at t his time) Start: 01-14-2025 [facility] Start: 01-13-2025 [facility] Start: 09-26-2024 End: 09-26-2024 Patient encounter procedure 09/26/2024 2:20 PM EST Office Visit [facility] [address] [place], [place] [phone] Samson Ragsdale DO [address] [place] [address] Physical [facility] [place] Comment on above: Physical Start: 09-26-2024 Covid-19 Vaccine ( season) Covid-19 Vaccine ( season) [facility] Comment on above: Postponed from 04/01/2023 (Declined at t his time) Start: 09-23-2024 Hepatitis B surface antibody level LDL Cholesterol [facility] Start: 09-19-2024 Hemoglobin A1c measurement HbA1C [facility] Start: 09-17-2024 End: 12-17-2024 Comprehensive metabolic 2000 panel - Serum or Plasma [facility] Work Phone: Comment on above: Expected: 09/17/2024, Expires: Start: 09-17-2024 End: 12-17-2024 Hemoglobin A1c in Blood [facility] Comment on above: Expected: 09/17/2024, Expires: Start: 09-17-2024 End: 12-17-2024 Lipid 1996 panel - Serum or Plasma [facility] Comment on above: Expected: 09/17/2024, Expires: Start: 09-17-2024 End: 12-17-2024 PSA/PROSTATE SPECIFIC ANTIGEN SCREENING [facility] Comment on above: Expected: 09/17/2024, Expires: Start: 05-31-2024 End: 05-31-2024 Patient encounter procedure 05/31/2024 2:00 PM EDT Office Visit General [facility] [address] [place] [address] Cristela Andersen APRN.[employer] [address] [place] [address] 05-23 EGD & colon follow up General Surgery Comment on above: 05-23 EGD & colon follow up Start: 05-23-2024 End: 05-23-2024 Patient encounter procedure 05/23/2024 3:00 PM EDT Appointment [facility] [address] [place] [address] Malu Mendoza MD [address] [facility] [place] [place] [id number] colon/egd [facility] Comment on above: colon/egd Start: 05-09-2024 End: 05-09-2024 Anesthesia consultation 05/09/2024 1:40 PM EDT PAT Pre Anesthesia [address] [place] [address] 1, [facility] [address] [place] [address] egd colonoscopy unable to do virtual Pre Anesthesia Comment on above: egd colonoscopy unable to do virtual Start: 04-13-2024 End: 04-13-2024 Patient encounter procedure General Surg jenn Comment on above: Chronic diarrhea [K52.9] Chronic diarrhea, ge neralized abdominal pain Start: 04-01-2024 Covid-19 Vaccine () Covid-19 Vaccine () [facility] Start: 04-01-2024 Covid-19 Vaccine () Covid-19 Vaccine () [facility] Start: 04-01-2024 Influenza vaccination [facility] Start: 03-26-2024 End: 03-26-2024 Patient encounter procedure 03/26/2024 3:00 PM EDT Office Visit Family [facility] [place] [address] [place] [address] Samson Ragsdale DO [address] [place] [address] 6 month follow up [facility] Comment on above: 6 month follow up Start: 03-23-2024 3 comp foot exam completed DIABETIC FOOT EXAM [facility] Start: 03-23-2024 Diabetic foot examination Diabetic Foot Exam [facility] Start: 03-23-2024 Hemoglobin A1c measurement HbA1C [facility] Start: 03-09-2024 End: 06-08-2024 CBC W Auto Differential panel - Blood COMPLETE BLOOD COUNT AND DIFFERENTIAL Lab Routine Essential hypertension, benign Expected: 03/09/2024, Expires: 06/08/2024 [facility] Comment on above: Expected: 03/09/2024, Expires: Start: 03-09-2024 End: 06-08-2024 Comprehensive metabolic 2000 panel - Serum or Plasma COMPREHENSIVE METABOLIC PANEL Lab Routine Essential hypertension, benign Expected: 03/09/2024, Expires: 06/08/2024 [facility] Comment on above: Expected: 03/09/2024, Expires: Start: 03-09-2024 End: 06-08-2024 Hemoglobin A1c in Blood HEMOGLOBIN A1C Lab Routine 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, with long-term current use of insulin (HCC) Expected: 03/09/2024, Expires: 06/08/2024 [facility] Work Phone: Comment on above: Expected: 03/09/2024, Expires: Start: 03-09-2024 End: 06-08-2024 Lipid 1996 panel - Serum or Plasma LIPID PANEL BASIC Lab Routine Essential hypertension, benign Expected: 03/09/2024, Expires: 06/08/2024 [facility] Comment on above: Expected: 03/09/2024, Expires: Start: 01-29-2024 Influenza vaccination Influenza Vaccine (#1) [facility] Comment on above: Postponed from 04/01/2023 (Declined at t his time) Start: 09-19-2023 End: 12-19-2023 CBC W Auto Differential panel - Blood CBC + DIFF Lab Routine Type 2 diabetes mellitus with stage 4 chronic kidney disease, with long-term current use of insulin (HCC) Essential hypertension, benign Expected: 09/19/2023, Expires: 12/19/2023 [facility] Work Phone: Comment on above: Expected: 09/19/2023, Expires: Start: 09-19-2023 End: 12-19-2023 Comprehensive metabolic 2000 panel - Serum or Plasma COMP METABOLIC PANEL Lab Routine Type 2 diabetes mellitus with stage 4 chronic kidney disease, with long-term current use of insulin (HCC) Essential hypertension, benign Expected: 09/19/2023, Expires: 12/19/2023 [facility] Work Phone: Comment on above: Expected: 09/19/2023, Expires: Start: 09-19-2023 End: 12-19-2023 Hemoglobin A1c in Blood HGB A1C Lab Routine Type 2 diabetes mellitus with stage 4 chronic kidney disease, with long-term current use of insulin (HCC) Expected: 09/19/2023, Expires: 12/19/2023 [facility] Work Phone: Comment on above: Expected: 09/19/2023, Expires: Start: 09-19-2023 End: 12-19-2023 Lipid 1996 panel - Serum or Plasma LIPID PANEL BASIC Lab Routine Type 2 diabetes mellitus with stage 4 chronic kidney disease, with long-term current use of insulin (HCC) Essential hypertension, benign Expected: 09/19/2023, Expires: 12/19/2023 [facility] Work Phone: Comment on above: Expected: 09/19/2023, Expires: 4 Start: 09-19-2023 End: 12-19-2023 Prostate specific Ag [Mass/volume] in Serum or Plasma PSA/PROSTSPECAG DIAG Lab Routine Malignant neoplasm of prostate (HCC) History of prostate cancer Expected: 09/19/2023, Expires: 12/19/2023 [facility] Work Phone: Comment on above: Expected: 09/19/2023, Expires: Start: 09-14-2023 Hemoglobin A1c measurement HbA1C [facility] Start: 09-14-2023 Hemoglobin A1c/Hemoglobin.total in Blood HBA1C [facility] Start: 09-13-2023 Hepatitis B surface antibody level LDL CHOLESTEROL [facility] Start: 08-09-2023 Glaucoma screening Dilated Retinal Exam [facility] Start: 08-09-2023 Hepatitis C antibody, confirmatory test DILATED RETINAL EXAM [facility] Start: 08-01-2023 Depression Assessment Depression Assessment [facility] Start: 04-01-2023 Covid-19 Vaccine () Covid-19 Vaccine () [facility] Start: 04-01-2023 Influenza vaccination [facility] Start: 03-23-2023 3 comp foot exam completed DIABETIC FOOT EXAM [facility] Start: 03-23-2023 Adult depression screening assessment DEPRESSION SCREENING [facility] Start: 03-23-2023 ANNUAL PCP TEAM CHRONIC DISEASE VISIT ANNUAL PCP TEAM CHRONIC DISEASE VISIT [facility] Start: 03-23-2023 BP CONTROLLED (<130/80) BP CONTROLLED (<130/80) [facility] Start: 03-16-2023 HEMOGLOBIN/HEMATOCRIT HEMOGLOBIN/HEMATOCRIT [facility] Start: 03-16-2023 SERUM CREATININE SERUM CREATININE [facility] Start: 03-13-2023 Hemoglobin A1c/Hemoglobin.total in Blood HBA1C [facility] Start: 03-11-2023 Shingrix Vaccine (3 of 3) Shingrix Vaccine (3 of 3) [facility] Start: 03-07-2023 End: 05-07-2023 CBC W Auto Differential panel - Blood CBC + DIFF Lab Routine Essential hypertension, benign CKD (chronic kidney disease) stage 4, GFR 15-29 ml/min ([facility]) 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, with long-term current use of insulin ([facility]) Expected: 03/07/2023, Expires: 05/07/2023 [facility] Work Phone: Comment on above: Expected: 03/07/2023, Expires: 3 Start: 03-07-2023 End: 05-07-2023 Comprehensive metabolic 2000 panel - Serum or Plasma COMP METABOLIC PANEL Lab Routine Essential hypertension, benign CKD (chronic kidney disease) stage 4, GFR 15-29 ml/min (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, with long-term current use of insulin (HCC) Expected: 03/07/2023, Expires: 05/07/2023 [facility] Work Phone: Comment on above: Expected: 03/07/2023, Expires: 3 Start: 03-07-2023 End: 05-07-2023 Hemoglobin A1c in Blood HGB A1C Lab Routine 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, with long-term current use of insulin (HCC) Expected: 03/07/2023, Expires: 05/07/2023 [facility] Work Phone: Comment on above: Expected: 03/07/2023, Expires: 3 Start: 01-28-2023 Influenza vaccination INFLUENZA (#1) [facility] Comment on above: Postponed from 04/01/2022 (Declined at t his time) Start: 12-07-2022 HEMOGLOBIN/HEMATOCRIT HEMOGLOBIN/HEMATOCRIT [facility] Start: 12-07-2022 Hepatitis B surface antibody level LDL CHOLESTEROL [facility] Start: 12-07-2022 SERUM CREATININE SERUM CREATININE [facility] Start: 09-16-2022 Hemoglobin A1c/Hemoglobin.total in Blood HBA1C [facility] Start: 09-15-2022 ANNUAL PCP TEAM CHRONIC DISEASE VISIT ANNUAL PCP TEAM CHRONIC DISEASE VISIT [facility] Start: 09-09-2022 HEMOGLOBIN/HEMATOCRIT HEMOGLOBIN/HEMATOCRIT [facility] Start: 09-09-2022 Hepatitis B screening Urine Albumin:Creatinine Ratio [facility] Start: 09-09-2022 Hepatitis B surface antibody level LDL CHOLESTEROL [facility] Start: 09-09-2022 SERUM CREATININE SERUM CREATININE [facility] Start: 08-18-2022 Hepatitis C antibody, confirmatory test DILATED RETINAL EXAM [facility] Start: 08-06-2022 End: 10-06-2022 C reactive protein [Mass/volume] in Serum or Plasma C-REACTIVE PROTEIN (CRP) Lab Routine Gout of multiple sites, unspecified cause, unspecified chronicity Expected: 08/06/2022, Expires: 10/06/2022 [facility] Work Phone: Comment on above: Expected: 08/06/2022, Expires: Start: 08-06-2022 End: 10-06-2022 CBC W Auto Differential panel - Blood CBC + DIFF Lab Routine Pure hypercholesterolemia Expected: 08/06/2022, Expires: 10/06/2022 [facility] Work Phone: Comment on above: Expected: 08/06/2022, Expires: Start: 08-06-2022 End: 10-06-2022 Comprehensive metabolic 2000 panel - Serum or Plasma COMP METABOLIC PANEL Lab Routine Pure hypercholesterolemia Expected: 08/06/2022, Expires: 10/06/2022 [facility] Work Phone: Comment on above: Expected: 08/06/2022, Expires: 3 Start: 08-06-2022 End: 10-06-2022 Hemoglobin A1c in Blood HGB A1C Lab Routine Controlled type 2 diabetes mellitus without complication, without long-term current use of insulin (HCC) Expected: 08/06/2022, Expires: 10/06/2022 [facility] Work Phone: Comment on above: Expected: 08/06/2022, Expires: Start: 08-06-2022 End: 10-06-2022 Lipid 1996 panel - Serum or Plasma LIPID PANEL BASIC Lab Routine Pure hypercholesterolemia Expected: 08/06/2022, Expires: 10/06/2022 [facility] Work Phone: Comment on above: Expected: 08/06/2022, Expires: Start: 08-06-2022 End: 10-06-2022 PSA/PROSTSPECAG SCRN PSA/PROSTSPECAG SCRN Lab Routine History of prostate cancer Screening for prostate cancer Expected: 08/06/2022, Expires: 10/06/2022 [facility] Work Phone: Comment on above: Expected: 08/06/2022, Expires: 3 Start: 08-06-2022 End: 10-06-2022 Urate [Mass/volume] in Serum or Plasma URIC ACID BLOOD Lab Routine Gout of multiple sites, unspecified cause, unspecified chronicity Expected: 08/06/2022, Expires: 10/06/2022 [facility] Work Phone: Comment on above: Expected: 08/06/2022, Expires: 3 Start: 08-01-2022 DEPRESSION ASSESSMENT DEPRESSION ASSESSMENT [facility] Start: 06-09-2022 Hemoglobin A1c/Hemoglobin.total in Blood HBA1C [facility] Start: 04-01-2022 Influenza vaccination INFLUENZA (#1) [facility] Start: 03-09-2022 Hemoglobin A1c/Hemoglobin.total in Blood HBA1C [facility] Start: 12-01-2021 Adult depression screening assessment DEPRESSION SCREENING [facility] Start: 09-09-2021 BP CONTROLLED (<130/80) BP CONTROLLED (<130/80) [facility] Start: 08-25-2021 3 comp foot exam completed DIABETIC FOOT EXAM [facility] Start: 08-01-2021 ADVANCE DIRECTIVE DISCUSSION ADVANCE DIRECTIVE DISCUSSION [facility] Start: 08-01-2021 DEPRESSION ASSESSMENT DEPRESSION ASSESSMENT [facility] Start: 03-24-2021 COVID-19 VACCINE (3 - Booster for Moderna series) COVID-19 VACCINE (3 - Booster for Moderna series) [facility] Start: 12-17-2020 COVID-19 VACCINE (3 - Booster for Moderna series) COVID-19 VACCINE (3 - Booster for Moderna series) [facility] Start: 12-17-2020 COVID-19 VACCINE (3 - Moderna series) COVID-19 VACCINE (3 - Moderna series) [facility] Start: 10-18-2017 End: 10-18-2017 Appointment Appointment [facility] Work Phone: Start: 06-27-2017 End: 06-27-2017 [facility] Work Phone: Start: 06-27-2017 End: 06-27-2017 Follow Up Appt 3 months Follow Up Appt 3 months [facility] Work Phone: Start: 06-27-2017 End: 06-27-2017 Appointment Appointment [facility] Work Phone: Start: 05-27-2017 End: 04-29-2017 CBC W Auto Differential panel - Blood *CBC [facility] Work Phone: Start: 04-21-2017 End: 04-21-2017 DJN DJN [facility] Work Phone: Start: 04-21-2017 End: 04-21-2017 Esophagogastroduodenoscopy transoral diagnostic EGD; diagnostic [facility] Work Phone: Start: 04-21-2017 End: 04-21-2017 Follow Up Appt 3 months Follow Up Appt 3 months [facility] Work Phone: Start: 04-21-2017 End: 04-21-2017 Pulmonary Function Test - complete Pulmonary Function Test - complete [facility] Work Phone: Start: 04-20-2017 End: 04-20-2017 Colonoscopy flx dx w/collj spec when pfrmd Colonoscopy [facility] Work Phone: Start: 04-05-2017 End: 04-05-2017 Cardiac Rehab Card[facility], [address], [place], [address] [facility] Work Phone: Start: 03-30-2017 End: 06-27-2017 *Hepatic Function Panel *Hepatic Function Panel [facility] Work Phone: Start: 03-30-2017 End: 06-27-2017 Lipid panel [AGGREGATE] *Lipid Profile CC PCP [facility] Work Phone: Start: 03-23-2017 End: 03-24-2017 *BMP *BMP [facility] Work Phone: Start: 03-23-2017 End: 03-24-2017 aPTT *PTT-Partial Thromboplastin Time [facility] Work Phone: Start: 03-23-2017 End: 03-24-2017 CBC W Auto Differential panel - Blood *CBC without Diff [facility] Work Phone: Start: 03-23-2017 End: 03-24-2017 INR Coag RelTime (PPP) *PT/INR [facility] Work Phone: Start: 03-23-2017 End: 03-23-2017 Left Heart Cath W/G[facility] Work Phone: Start: 03-07-2017 End: 03-08-2017 BNP *Brain Natriuretic Peptide BNP [facility] Work Phone: Start: 03-07-2017 End: 03-07-2017 Stress Echocardiogram (treadmill) Stress Echocardiogram (treadmill) [facility] Work Phone: Start: 02-25-2017 End: 04-15-2017 Ecg routine ecg w/least 12 lds w/i&r EKG (In office) [facility] Work Phone: Start: 02-16-2017 End: 02-16-2017 *BMP *BMP [facility] Work Phone: Start: 02-16-2017 End: 02-16-2017 *CBC with Differential *CBC with Differential [facility] Work Phone: Start: 02-16-2017 End: 02-25-2017 Chest x-ray X-Ray, Chest, PA & Lateral [facility] Work Phone: Start: 01-25-2017 End: 01-26-2017 Xtrnl mobile cv telemetry w/i&report 30 days 30 Day Holter Monitor [facility] Work Phone: Start: 01-18-2017 End: 04-05-2017 Cardiac Rehab Cardiac Rehab [address] [place], [address] [facility] Work Phone: Start: 01-18-2017 End: 01-18-2017 LEVI SIMS [facility] Work Phone: Start: 01-18-2017 End: 01-18-2017 Ecg routine ecg w/least 12 lds w/i&r EKG (In office) [facility] Work Phone: Start: 01-18-2017 End: 01-18-2017 Follow Up Appt 3 months Follow Up Appt 3 months [facility] Work Phone: Start: 12-31-2016 End: 01-03-2017 *BMP *BMP [facility] Work Phone: Start: 12-31-2016 End: 01-03-2017 BNP *Brain Natriuretic Peptide BNP [facility] Work Phone: Start: 2016 RSV Vaccine (1 - 1-dose 75+ series) RSV Vaccine (1 - 1-dose 75+ series) [facility] Start: 09-25-2012 SHINGRIX VACCINE (2 of 3) SHINGRIX VACCINE (2 of 3) [facility] Start: 08-01-2011 Urine microalbumin profile [facility] Start: 07-01-2006 Medicare Annual Wellness Visit Medicare Annual Wellnes s Visit [facility] Start: 2001 Hepatitis B Vaccine (1 of 3 - Risk 3-dose series) Hepatitis B Vaccine (1 of 3 - Risk 3-dose series) [facility] Start: 2001 RSV Vaccine (1 - 1-dose 60+ series) RSV Vaccine (1 - 1-dose 60+ series) [facility] Clostridioides diffi cile toxin genes [Presence] in Stool by CHANTAL with probe detection C. DIFFICILE PCR Lab Routine Diarrhea, unspecified type Ordered: 09/26/2023 [facility] Work Phone: Comment on above: Ordered: 09/26/2023 Clostridioides diffi cile toxin genes [Presence] in Stool by CHANTAL with probe detection C. 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 rich plaque Chest pain on breathing 1 Occurrences starting 03/23/2023 until 03/23/2024 [facility] Work Phone: Comment on above: 1 Occurrences starting 03/23/2023 until 03/23/2024 End: 03-23-2024 Echocardiography ECHO Cardiology Routine SOB (shortness of breath) Coronary artery 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 rich plaque Chest pain on breathing 1 Occurrences starting 03/23/2023 until 03/23/2024 [facility] Work Phone: Comment on above: 1 Occurrences starting 03/23/2023 until 03/23/2024 End: 04-16-2025 EGD DIAGNOSTIC EGD DIAGNOSTIC Endoscopy Routine Generalized abdominal pain Gastroesophageal reflux disease without esophagitis 1 Occurrences starting 04/16/2024 until 04/16/2025 [facility] Comment on above: 1 Occurrences starting 04/16/2024 until 04/16/2025 ENTERIC BACTERIAL PANEL BY PCR E NTERIC BACTERIAL PANEL BY PCR Lab Routine Diarrhea, unspecified type Ordered: 09/26/2023 [facility] Work Phone: Comment on above: Ordered: 09/26/2023 ENTERIC BACTERIAL PANEL BY PCR E NTERIC BACTERIAL PANEL BY PCR Lab Routine Chronic diarrhea Generalized abdominal pain Ordered: 03/26/2024 [facility] Comment on above: Ordered: 03/26/2024 ENTERIC BACTERIAL PANEL BY PCR [facility] Comment on above: Release Upon Ordering for 1 Occurrences starting 05/23/2024 End: 04-16-2025 Flexible sigmoidoscopy study COLONOSCOPY DIAGNOSTIC Endoscopy Routine Chronic diarrhea Generalized abdominal pain 1 Occurrences starting 04/16/2024 until 04/16/2025 [facility] Work Phone: Comment on above: 1 Occurrences starting 04/16/2024 until 04/16/2025 Giardia lamblia+Cryp tosporidium sp Ag [Presence] in Stool by Immunoassay CRYPTOSPORIDIUM AND GIARDIA ANTIGENS BY EIA Microbiology Routine Chronic diarrhea Generalized abdominal pain Ordered: 03/26/2024 [facility] Comment on above: Ordered: 03/26/2024 Giardia lamblia+Cryp tosporidium sp Ag [Presence] in Stool by Immunoassay [facility] Comment on above: Release Upon Ordering for 1 Occurrences starting 05/23/2024 Helicobacter pylori Ag [Presence] in Stool by Immunoassay H PYLORI AG BY EIA,STOOL Microbiology Routine Diarrhea, unspecified type Ordered: 09/26/2023 [facility] Work Phone: Comment on above: Ordered: 09/26/2023 End: 04-21-2024 NM CARDIAC PERF STRESS/PHARM NM CARDIAC PERF STRESS/PHARM Radiology Routine SOB (shortness of breath) Coronary artery 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 rich plaque Chest pain on breathing 1 Occurrences starting 03/23/2023 until 04/21/2024 [facility] Work Phone: Comment on above: 1 Occurrences starting 03/23/2023 until 04/21/2024 PANC ELASTASE, FECAL PANC ELASTA SE, FECAL Lab Routine Chronic diarrhea Generalized abdominal pain Ordered: 03/26/2024 [facility] Work Phone: Comment on above: Ordered: 03/26/2024 PANC ELASTASE, FECAL [facility] Comment on above: Release Upon Ordering for 1 Occurrences starting 05/23/2024 Patient Education [facility] Work Phone: Patient referral [facility] Work Phone: End: 04-21-2024 Radex spine lumbosacral 2/3 views XR LUMBAR GENERAL 3V AP/LAT/L5-S1 Radiology Routine 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 1 Occurrences starting 03/23/2023 until 04/21/2024 [facility] Work Phone: Comment on above: 1 Occurrences starting 03/23/2023 until 04/21/2024 Radex spine lumbosac ral 2/3 views XR LUMBAR GENERAL 3V AP/LAT/L5-S1 Radiology Routine 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 03/23/2023 4:42 PM EDT [facility] Work Phone: End: 04-21-2024 Radiologic exam chest 2 views XR CHEST 2V FRONTAL/LAT Radiology Routine SOB (shortness of breath) Coronary artery 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 rich plaque Chest pain on breathing 1 Occurrences starting 03/23/2023 until 04/21/2024 [facility] Work Phone: Comment on above: 1 Occurrences starting 03/23/2023 until 04/21/2024 Radiologic exam chest 2 views XR CHEST 2V FRONTAL/LAT Radiology Routine SOB (shortness of breath) Coronary artery 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 rich plaque Chest pain on breathing 03/23/2023 4:41 PM EDT [facility] Work Phone: SURGICAL PATHOLOGY [facility] Work Phone: Comment on above: Release [...] plaque 1 Occurrences starting 09/22/2022 until 09/22/2023 [facility] Work Phone: Comment on above: 1 Occurrences starting 09/22/2022 until 09/22/2023 End: 05-31-2024 US ABD AORTA COMPLETE VAS LAB US ABD AORTA COMPLETE VA S LAB Vascular Lab Routine Infrarenal abdominal aortic aneurysm (AAA) without rupture (HCC) 1 Occurrences starting 05/31/2023 until 05/31/2024 [facility] Work Phone: Comment on above: 1 Occurrences starting 05/31/2023 until 05/31/2024 End: 10-03-2024 US Abdominal Aorta US ABD AORTA COMPLETE VAS LAB Vascular Lab Routine Infrarenal abdominal aortic aneurysm (AAA) without rupture (HCC) 1 Occurrences starting 10/04/2023 until 10/03/2024 [facility] Work Phone: Comment on above: 1 Occurrences starting 10/04/2023 until 10/03/2024 End: 10-03-2024 US Carotid arteries - bilateral US CAROTID ARTERIES BI L VAS LAB Vascular Lab Routine Bilateral carotid artery stenosis 1 Occurrences starting 10/04/2023 until 10/03/2024 [facility] Work Phone: Comment on above: 1 [...] artery 1 Occurrences starting 09/22/2022 until 09/22/2023 [facility] Work Phone: Comment on above: 1 Occurrences starting 09/22/2022 until 09/22/2023 End: 05-31-2024 US CAROTID ARTERIES MELISSA [facility]AS LAB US CAROTID ARTERIES BI L VAS LAB Vascular Lab Routine Bilateral carotid artery stenosis 1 Occurrences starting 05/31/2023 until 05/31/2024 [facility] Work Phone: Comment on above: 1 Occurrences starting 05/31/2023 until 05/31/2024 End: 04-21-2024 XR KNEE GENERAL 4V AP BOTH/PA BOTH/LAT/MERC BILATERAL XR KNEE GENERAL 4V AP BOTH/PA BOTH/LAT/MERC BILATERAL Radiology Routine Bilateral chronic knee pain 1 Occurrences starting 03/23/2023 until 04/21/2024 [facility] Work Phone: Comment on above: 1 Occurrences starting 03/23/2023 until 04/21/2024 XR KNEE GENERAL 4V A P BOTH/PA BOTH/LAT/MERC BILATERAL XR KNEE GENERAL 4V AP BOTH/PA BOTH/LAT/MERC BILATERAL Radiology Routine Bilateral chronic knee pain 03/23/2023 4:42 PM EDT [facility] Work Phone: End: 12-26-2025 XR Shoulder - left 3 Views XR SHOULDER GENERAL 3V OR MORE AP/TRUE AP/OTHER LEFT Radiology Routine Acute pain of both shoulders 1 Occurrences starting 11/26/2024 until 12/26/2025 [facility] Work Phone: Comment on above: 1 Occurrences starting 11/26/2024 until 12/26/2025 XR Shoulder - left 3 Views XR SH OULDER GENERAL 3V OR MORE AP/TRUE AP/OTHER LEFT Radiology Routine Acute pain of both shoulders 11/26/2024 3:50 PM EDT [facility] End: 12-26-2025 XR Shoulder - right 3 Views XR SHOULDER GENERAL 3V OR MORE AP/TRUE AP/OTHER RIGHT Radiology Routine Acute pain of both shoulders 1 Occurrences starting 11/26/2024 until 12/26/2025 [facility] Comment on above: 1 Occurrences starting 11/26/2024 until 12/26/2025 XR Shoulder - right 3 Views XR S HOULDER GENERAL 3V OR MORE AP/TRUE AP/OTHER RIGHT Radiology Routine Acute pain of both shoulders 11/26/2024 3:50 PM EDT [facility] End: 12-26-2025 XR Thoracic spine AP and Lateral and Swimmers XR THORACIC GENERAL 3V AP/LAT/SWIMMERS Radiology Routine Upper back pain 1 Occurrences starting 11/26/2024 until 12/26/2025 [facility] Comment on above: 1 Occurrences starting 11/26/2024 until 12/26/2025 XR Thoracic spine AP and Lateral and Swimmers XR THORACIC GENERAL 3V AP/LAT/SWIMMERS Radiology Routine Upper back pain 11/26/2024 3:50 PM EDT [facility] Immunizations Immunization Date Immunization Notes Care Provider Fa cili 05-02-2023 tetanus toxoid, redu berta diphtheria toxoid, and acellular pertussis vaccine, adsorbed DUSTIN MIJARES MD [facility] 01-14-2023 zoster vaccine recombinant DUSTIN MIJARES MD [facility] 04-01-2022 influenza virus vacc ine, unspecified formulation Nurse Wstr Work Phone: [facility] 06-16-2021 influenza virus vacc ine, unspecified formulation DUSTIN MIJARES MD [facility] 06-16-2021 influenza, high-dose , quadrivalent vaccine (FLUZONE HIGH DOSE QUADRIVALENT) Samson Ragsdale DO Work Phone: [facility] Work Phone: 10-22-2020 COVID-19 vaccine, fu ll dose (MODERNA) Samson Ragsdale DO Work Phone: [facility] Work Phone: 09-24-2020 COVID-19 vaccine, fu ll dose (MODERNA) Samson Ragsdale DO Work Phone: [facility] Work Phone: Comment on above: Result Comment: 2022: [id number] 05-09-2020 influenza virus vacc ine, unspecified formulation DUSTIN MIJARES MD [facility] 05-09-2020 influenza, high dose seasonal, preservative-free Samson Ragsdale DO Work Phone: [facility] Work Phone: 08-27-2019 influenza virus vacc ine, unspecified formulation DUSTIN MIJARES MD [facility] 08-27-2019 influenza, high dose seasonal, preservative-free Samson Ragsdale DO Work Phone: [facility] Work Phone: 05-01-2018 influenza virus vacc ine, unspecified formulation DUSTIN MIJARES MD [facility] 05-01-2018 influenza, high dose seasonal, preservative-free Samson Ragsdale DO Work Phone: [facility] Work Phone: 05-18-2017 influenza virus vacc ine, unspecified formulation DUSTIN MIJARES MD [facility] 05-18-2017 influenza, high dose seasonal, preservative-free Samson Ragsdale DO Work Phone: [facility] Work Phone: 07-28-2016 influenza virus vacc ine, unspecified formulation DUSTIN MIJARES MD [facility] 07-28-2016 influenza, high dose seasonal, preservative-free Samson Ragsdale DO Work Phone: [facility] Work Phone: 05-01-[address] Samson Ragsdale DO Work Phone: [facility] 09-02-2015 pneumococcal conjuga te vaccine, 13 valent Samson Ragsdale DO Work Phone: [facility] Work Phone: 06-02-2015 influenza virus vacc ine, unspecified formulation DUSTIN MIJARSE MD [facility] 06-02-2015 influenza, high dose seasonal, preservative-free Samson Ragsdale DO Work Phone: [facility] Work Phone: 06-02-2015 pneumococcal polysaccharide vaccine, 23 valent Samson Russellrison DO Work Phone: [facility] Work Phone: 05-01-2015 pneumococcal conjuga te vaccine, [address] Samson Ragsdale DO Work Phone: [facility] 05-23-2014 influenza virus vacc ine, unspecified formulation DUSTIN MIJARES MD [facility] 05-23-2014 influenza, seasonal, injectable Samson Ragsdale DO Work Phone: [facility] 07-13-2013 influenza virus vacc ine, unspecified formulation Samson Ragsdale DO Work Phone: [facility] 07-31-2012 zoster vaccine, live Samson Russellrison DO Work Phone: [facility] 05-26-2009 influenza virus vacc ine, unspecified formulation Samson Ragsdale DO Work Phone: [facility] Work Phone: 05-18-2008 influenza virus vacc ine, unspecified formulation Samson Ragsdale DO Work Phone: [facility] 01-27-2008 pneumococcal polysaccharide vaccine, 23 valent DUSTIN MIJARES MD [facility] Comment on above: Reason for Medicatio n: Other (see order comments) 06-20-2004 pneumococcal polysaccharide vaccine, 23 valent Samson Russellrison DO Work Phone: [facility] Work Phone: 03-18-2004 adenovirus, type 4 a nd type 7, live, oral DUSTIN MIJARES MD [facility] 03-18-2004 hepatitis A vaccine, adult dosage DUSTIN MIJARES MD [facility] 03-18-2004 poliovirus vaccine, inactivated DUSTIN MIJARES MD [facility] 08-01-2001 diphtheria and tetan us toxoids, adsorbed for pediatric use Samson Ragsdale DO Work Phone: [facility] Work Phone: 07-03-1999 pneumococcal polysaccharide vaccine, 23 valent Samson Ragsdale DO Work Phone: [facility] Payers Date Payer Category Payer Self-pay 2023 Medicare [id number] 2016 Medicare MEDICARE MEDICAR E A AND B [id number] 2016-Present [phone] [address] [address] [place] [address] Medicare [id number] 2015 Private Health Insurance HUMANA HUMANA MEDICARE SUPPLEMENT [id number] 2015-Present [phone] [address] [address] [place] [address] Indemnity [id number] 2015 Private Health Insurance [id number] 2015 Private Health Insurance [id number] 2006 Medicare [id number] 2006 Medicare [id number] 1940 Unknown [id number] Unknown [id number] Unknown [id number] Unknown [id number] Unknown [id number] Unknown [id number] Unknown [id number] Social History Date Type Detail Facility Start: 07-28-2022 End: 01-14-2025 Tobacco smoking status NHIS Ex-smoker [facility] Comment on above: quit 1987 History of tobacco use Cigarette Smoker C [facility] History of tobacco use Pipe Smoker [facility] History of tobacco use Cigar Smoker [facility] Start: 11-25-2021 End: 01-09-2025 Alcohol intake Current drinker of alcohol (finding) [facility] Start: 1940 Sex Assigned At Not on file C [facility] Start: 05-10-2020 End: 03-23-2022 Exposure to SARS-CoV-2 (event) Not sure [facility] Work Phone: History of tobacco use Current smoker [facility] Start: 07-28-2022 End: 03-23-2023 Cigarettes smoked current (pack per day) - Reported 2 [facility] Work Phone: Start: 07-28-2022 Tobacco use and exposure Smokeless tobacco non-user [facility] Start: 07-28-2022 Tobacco Comment quit in [address] [facility] Start: 11-30-2022 End: 03-23-2023 Tobacco use panel [facility] Work Phone: Adult Depression Screening Assessment 0 [facility] Work Phone: Sex Assigned At Sex [facility] Start: 12-21-2016 Alcohol Alcohol [facility] Start: 12-21-2016 Lives Lives [facility] Start: 1940 Sex Assigned At Male [facility] Medical Equipment Procedure Code Equipment Code Equipment Original Text Equipment Identifier Dates [id number], [id number], [id number], [id number], [id number], [id number], [id number], [id number], [id number], [id number], [id number] Start: 06-27-2017 End: 10-25-2024 Comment on above: [...] Result Facility 05-28-2023 Functional Status Ambulation in [facility] 05-28-2023 Functional Status Room check performed [facility] 05-28-2023 Functional Status [facility] 05-28-2023 Functional Status [facility] 05-27-2023 Functional Status [facility] 05-27-2023 Functional Status [facility] 05-27-2023 Functional Status [facility] 05-26-2023 Functional Status Patient refused [facility] 05-26-2023 Functional Status Nurse Milagros trotter q2hrs Performed 11am-11pm [facility] 05-26-2023 Functional Status [facility] 05-25-2023 Functional Status [facility] 05-24-2023 Functional Status Sensory Deficits None A [facility] 12-05-2014 Are you deaf, or do you have serious difficulty hearing No 12/05/2014 8:14 AM Stephanie Kern MA No [facility] 12-05-2014 Are you blind, or do you have serious difficulty seeing, even when wearing glasses No 12/05/2014 8:14 AM Stephanie Kern MA No [facility] 12-05-2014 Do you have serious difficulty walking or climbing stairs No 12/05/2014 8:14 AM Stephanie Kern MA No [facility] 12-05-2014 Do you have difficul ty dressing or bathing No 12/05/2014 8:14 AM Stephanie Kern MA No [facility] 12-05-2014 Because of a physica l, mental, or emotional condition, do you have difficulty doing errands alone such as visiting a physician's office or shopping No 12/05/2014 8:14 AM EDStephanie Arenas MA No [facility] Mental Status Date Assessment Result Facility 05-28-2023 Mental Status Orientation Oriented x 4 [facility] 05-28-2023 Mental Status [facility] 05-28-2023 [facility]23 Mental Status Orientation Asse ssment Oriented x 4 [facility] 05-27-2023 [facility]23 Mental Status [facility] 12-05-2014 Because of a physica l, mental, or emotional condition, do you have serious difficulty concentrating, remembering, or making decisions No 12/05/2014 8:14 AM Stephanie Kern MA No [facility] Clinical Notes 08-28-2019 to 01-17-2025 Amy Castaneda APRN.[facility] - 01/17/2025 11:13 AM EDT Note Date & Type Note Facility 01-17-2025 History of Presen t illness Narrative Chief Complaint Patient presents with: ER F/U HPI Abraham Gage is a 84 year old male who presents here today for Above Complaints. Orthopnea and Dyspnea: - Orthopnea and increasing dyspnea over the past 7-10 days. - Seen in [facility] ER on 01/14; BNP, troponins, and chest X-ray were normal. - Seen by cardiology at [facility] on 01/15; isosorbide increased to 60 mg daily. - Echocardiogram and stress test ordered. - Referred to pulmonology by Dr. Shelby due to concern for COPD. - Abraham reports blurry vision and dysphagia since onset of symptoms 7-10 days ago. - Able to eat soft, smooth foods; chokes frequently on dry or hard foods. - Reports ER doctor was not concerned about blurry vision and dysphagia. Coronary Artery Disease: - Extensive cardiac history with single bypass and multiple drug-eluting stents. - Awaiting scheduling with pulmonology. - Cardiology follow-up in 4 weeks. Abdominal Aortic Aneurysm: - History of AAA. Hyperlipidemia: - Statin intolerant. - Ultrasound of bilateral carotids ordered. COPD: - History of smoking. - Reports Advair inhaler costs $200/month; inquiring about cheaper alternatives. Past medical history, appointments, medications, allergies reviewed. Previous Medical History PAST MEDICAL HISTORY Diagnosis Date Abdominal aneurysm [...] Unspecified hypertensive heart disease without heart failure Previous Surgical History PAST SURGICAL HISTORY Procedure Laterality Date BYP OTH/THN VEIN COMMON-IPSILATERAL CAROTID Carotid Endarectomy right COLONOSCOPY 05/23/2024 COLONOSCOPY FLX DX W/COLLJ SPEC WHEN PFRMD 07/10/2007 CORONARY ARTERY BYP W/VEIN & ARTERY GRAFT 1 VEIN 1994 CABG, single graft, Sridhar Harris CORONARY ENDARTERCOMY OPEN ANY METHOD 07/03/2013 Angioplasty Xience stent to L circumflex EGD 04/26/2017 [facility] [address] Nolan Triana EGD 05/23/2024 EGD TRANSORAL BIOPSY SINGLE/MULTIPLE 07/10/2007 PAST SURGICAL HISTORY OF 01/26/2008 stent placement ramus and prox ramus PAST SURGICAL HISTORY OF heart stents PROSTATECTOMY PERINEAL RADICAL 2000 Prostatectomy, radical- Dr. 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 Yousif Triana; next screening colonoscopy in 10yrs, [facility] UNLISTED DIAGNOSTIC GASTROENTEROLOGY PROCEDURE 06/06/2018 Family History FAMILY HISTORY Problem Relation Age of Onset Hypertension Father COPD Father Heart Mother Patient Allergies ALLERGIES Allergen Reactions Atorvastatin Unknown Crestor [Rosuvastat* Other: See Comments Muscle pain Glucosamine Unknown Nerve pain Motrin [Ibuprofen] Rash Pravastatin Other: See Comments muscle aches Zaoadev-Har-Cti Red* Other: See Comments myalgia Current Medications Current Outpatient Medications on File Prior to Visit Medication Sig triamcinolone acetonide (NASACORT ALLERGY) 55 mcg nasal inhaler Use 2 sprays in each nostril once daily. zinc sulfate (ZINC-15 ORAL) Take 1 tablet [...] 10 Units subcutaneously daily at bedtime. Insulin [place], Disposable, (BD ULTRA-FINE BENNY PEN NEEDLE) 32 [...] day (Patient not taking: Reported on 01/09/2025) cetirizine HCl (ZYRTEC) 10 mg chewable tablet [...] rash/itching. (Patient not taking: Reported on 01/09/2025) CHOLECALCIFEROL, VITAMIN D3, (VITAMIN D3 ORAL) Take 600 mg by mouth once daily. coenzyme Q10 (COENZYME Q-10) 100 mg cap capsule Take 1 capsule by mouth. CALTRATE-600 PLUS VITAMIN D3 600 MG-200 UNIT ORAL TAB TAKE TWO TABLETS DAILY. No current facility-administered medications on file prior to visit. Social History Social History Tobacco Use Smoking status: Former Current packs/day: 2.00 Average packs/day: 2.0 packs/day for 20.0 years (40.0 ttl pk-yrs) Types: Cigarettes, Pipe, Cigars Smokeless tobacco: Never Tobacco comments: quit in 1987 Vaping Use Vaping status: Never Used Substance Use Topics Alcohol use: Yes Comment: rarely Drug use: No Review of Symptoms REVIEW OF SYSTEMS SEE HPI EXAM: BP 116/58 Pulse 62 Wt 72 kg (158 lb 11.7 oz) SpO2 94% BMI 24.14 kg/m General Appearance: Well appearing, alert, in no acute distress, well-hydrated, well nourished. Lungs: Positive findings: wheezing Shortness of breath: While lying flat. Heart: RRR without murmur, gallop, or rubs. No ectopy. Health Maintenance List Medicare Annual Wellness Visit Never done RSV Vaccine(1 - 1-dose 75+ series) Never done Urine Albumin:Creatinine Ratio due on 09/09/2022 Shingrix Vaccine(3 of 3) due on 03/11/2023 Dilated Retinal Exam due on 08/09/2023 Diabetic Foot Exam due on 03/23/2024 Covid-19 Vaccine( season) due on 09/26/2025 HbA1C due on 03/17/2025 Influenza Vaccine(Season Ended) due on 04/01/2025 LDL Cholesterol due on 09/17/2025 DTaP,Tdap,Td Vaccine(3 - Td or Tdap) due on 05/02/2033 Pneumococcal Vaccine: 50+ Completed Colorectal Cancer Screening Discontinued Advance Directive Discussion Discontinued ASSESSMENT/PLAN: 1. SOB (shortness of breath) - ICD9: 786.05, ICD10: R06.02 (primary diagnosis) - FLUTICASONE 100 MCG-SALMETEROL 50 MCG/DOSE BLISTR POWDR FOR INHALATION 2. Atherosclerosis of [place]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[place] heart with angina pectoris - ICD9: 414.01, 413.9, ICD10: I25.119 -Follow up with cardiology as scheduled -Complete US carotid, stress test and echocardiogram as scheduled 3. Hypertensive kidney disease with chronic kidney disease stage IV (HCC) - ICD9: 403.90, 585.4, ICD10: I12.9, N18.4 - Controlled - Home blood pressure readings controlled - Continue current medications - Recommend home blood pressure monitoring, to bring results to next visit - Encouraged sodium restriction, DASH or Mediterranean diet - Recommend regular aerobic exercise - Discussed need for and benefit of weight loss. BMI 24.13 kg/(m^2) - eGFR: 40 Stable - Counseled on avoiding NSAIDs, adequate hydration 4. Stented coronary artery - ICD9: V45.82, ICD10: Z95.5 -Follow up with cardiology as scheduled -Complete US carotid, stress test and echocardiogram as scheduled 5. Dysphagia, unspecified type - ICD9: 787.20, ICD10: R13.10 - CT BRAIN WO IVCON, Called [facility] and patient scheduled 01/[address] since he has other evaluations being completed tomorrow at [facility]. 6. Vision changes - ICD9: 368.9, ICD10: H53.9= - CT BRAIN WO IVCON. Called [facility] and patient scheduled 01/[address] at [address] since he has other evaluations being completed tomorrow at [facility]. I spent 55 minutes in the visit, with more than 50% of the total swfc-ol-smmo time of the visit in counseling / coordination of care. Amy Castaneda APRN.[employer] documented in this encounter [facility] 01-15-2025 Progress note [facility] 01-15-2025 Progress note Note Date/Time January 15, 2025 2:25pm [facility] [address] [place] [address] OFFICE VISIT Date of Service: 01/15/25 MR#: [id number] Acct: [id number] Name: ABRAHAM GAGE Rep #: [id number] : 1940 Provider: Dr. Atif Montano MD Age/Sex: 84/M Location: [facility] Status: Signed HPI HPI History of Present Illness Details: This gentleman has past medical history significant for coronary artery disease status post CABG with CASTILLO to the LAD, history of myocardial infarctions status post DAVID to the left circumflex and to the right coronary artery, hypertension and dyslipidemia. He has not been seen in our office since 2020. Here today toreestablish care. Per patient, for the last couple of weeks, he has been feeling increasingly short of breath with exertion and also when he lays down. Denies any chest pains. No palpitations. Also lower extremity edema for the last couple of weeks. According to the patient, he has been wheezing as well. He went to the emergency room couple of days ago. Initial workup was negative. Delta troponins were negative. proBNP was normal. Chest x-ray did not show any fluidvolume overload. Patient has history of chronic kidney disease. His creatinine on 01/03/2025 was 2.35. Intake Vital Signs 01/12/24 07:26 01/13/25 22:13 01/15/25 13:37 Height 5 ft 8 in 5 ft 8 in 5 ft 8 in Weight: 163 lb BMI 24.7 BP 118/67 Blood Pressure Location Lt brachial Position Sitting Respiration 22 H Pulse 61 Pulse Source NIBP Oxygen Delivery Method room air Intake Visit Reasons: Shortness of breath Blogs Manager Required: No Accompanied by: Is patient in pain?: No Allergies ibuprofen Allergy (Unknown, Unverified 01/15/25 13:36) NEEDS FOLLOW-UP pravastatin Allergy (Unknown, Verified 01/15/25 13:36) NEEDS FOLLOW-UP atorvastatin (From Lipitor) Allergy (Verified 01/15/25 13:36) Unknown glucosamine Allergy (Verified 01/15/25 13:36) Unknown rosuvastatin Adverse Reaction (Unknown, Verified 01/15/25 13:36) NEEDS FOLLOW-UP Kdstkxu-WZT-EqI Reductase Inhibitor Adverse Reaction (Unknown, Verified 01/15/2513:36) NEEDS FOLLOW-UP Medications ?Medication ?Instructions ?Recorded ?Confirmed ?Type isosorbide mononitrate 30 mg 30 mg PO DAILY 03/29/17 0 01/15/25 History tablet,extended release 24 hr cetirizine 10 mg tablet (Zyrtec) 5 mg PO DAILY 8 01/15/25 History coenzyme Q10 100 mg capsule 200 mg PO DAILY 05/08/18 0 01/15/25 History (CoQ-10) insulin glargine 100 unit/mL 10 unit subcut QHS 01/15/25 History subcutaneous solution (Lantus U-100 Insulin) allopurinol 100 mg tablet 100 mg PO DAILY 06/21/19 History cholecalciferol (vitamin D3) 125 5,000 unit PO DAILY 1 08/21/18 01/15/25 History mcg (5,000 unit) capsule losartan 50 mg tablet 25 mg PO DAILY 06/21/1912/30 History clopidogrel 75 mg tablet 75 mg PO DAILY #90 tabs 08/0101/15/25 Rx cyanocobalamin (vitamin B-12) 5,000 mcg PO DAILY 01/1301/15/25 History 5,000 mcg capsule ferrous sulfate, dried 159 mg (45 159 mg PO DAILY 12/3001/15/25 History mg iron) tablet,extended release (iron ER) zinc 50 mg tablet 50 mg PO DAILY 01/13/2512/30 History amlodipine 10 mg tablet 10 mg PO QPM 01/14/25 History calcium 600 mg (as carbonate)-vit 1 tab PO QDAY 01/15/25 History D3 20 mcg (800 unit) chewable tablet (Caltrate plus D) carvedilol 25 mg tablet 25 mg PO BID 01/14/25 History diclofenac sodium 1 % topical gel 2 g topical 4X/DAY P RN 01/14/25 01/15/25 History (Arthritis Pain (diclofenac)) flax seed oil PO DAILY 01/14/25 01/15/25 H istory furosemide 40 mg tablet 40 mg PO .COMPLEX PRN edema 01/14/25 01/15/25 History hydrocodone-acetaminophen 5-325mg 1 tab PO PRN pain 01/15/25 History 5mg-325mg hydrocortisone 2.5 % topical cream 1 applic topical BI D PRN 01/14/25 01/15/25 History potassium chloride 10 mEq 10 meq PO QDAY 01/14/2512/30 History capsule,extended release Ejection fraction %: 55 Have you fallen in the past year?: Yes (single episode; no major injury) [facility] Medical History Abdominal aneurysm without mention of rupture Abdominal aortic aneurysm without rupture Acute gastritis without mention of hemorrhage Acute myocardial infarction Atherosclerosis of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[place] heart without angina pectoris Carotid artery stenosis Carotid atherosclerosis Chronic kidney disease, stage 3 CKD stage 3b, GFR 30-44 ml/min Complete heart block Diabetes mellitus type 2, uncontrolled Diaphragmatic hernia without mention of obstruction or gangrene Diverticulosis of colon (without mention of hemorrhage) Esophagitis Generalized osteoarthritis GI bleed due to NSAIDs Hyperlipidemia Hypertension Internal hemorrhoid Ischemic cardiomyopathy Other and unspecified hyperlipidemia Prostate cancer PVD (peripheral vascular disease) ST elevation TN (STEMI) Unspecified constipation Unspecified hypertensive heart disease without heart failure Surgical History H/O coronary artery bypass surgery (~1994) H/O hernia repair History of carotid endarterectomy History of colonoscopy History of coronary artery stent placement History of esophagogastroduodenoscopy (EGD) History of prostatectomy History of right-sided carotid endarterectomy Family History Father Arthritis Mother Hypertension Grandmother Diabetes Social History Smoking Status: Former smoker how long ago did patient quit smokin+years ago alcohol intake: current alcohol intake frequency: holidays/special occasions only substance use type: does not use caffeine: Yes Type: coffee and tea ROS Const Const: Positive for fatigue and weakness; Negative for headache(s) or weight gain Eyes Eyes: Positive for blurry vision and double vision ENT ENT: Negative for headache(s), dizziness, Nosebleed/epistaxis or balance problems Cardio Chest Pain: No Palpitations: No Edema: Bilateral (BLE) Muscle aches with walking: None Resp Respiratory: Positive for SOB with activity, SOB at rest and SOB orthopneaundefinedSOB lying down GI GI: Positive for heartburn; Negative nausea or vomiting Musc Musc: Positive for muscle aches/ myalgia and joint pain; Negative for muscle weakness or balance problems Neuro Neuro: Positive for weakness, blurry vision and double vision; Negative for dizziness, lightheadedness, near syncope, syncope or headache(s) Endo Endo: Positive for fatigue Cardiology Exam Const Appearance: comfortable and no acute distress Nutritional Appearance: well nourished Neck Neck: no JVD Carotids: bruit Right Chest Decreased air entry bilaterally. Positive expiratory wheeze. Cardio Rate: regular rate Rhythm: regular rhythm Heart sounds: S1 normal and S2 normal Neuro General: patient alert, patient awake and patient oriented x3 Extremities Lower Extremity Edema: +1: Bilateral Supplemental Info Supplemental Information Echocardiogram 03/25/2023: Conclusions: -Exam indication: Shortness of breath -The left ventricle is normal in size. Left ventricular systolic function is normal. EF = 55 +/- 5% (2D Biplane) Grade I left ventricular diastolic dysfunction. -The right ventricle is normal in size. Right ventricular systolic function is normal. -There are no significant valvular abnormalities. -Exam was compared with the prior echocardiographic exam performed on 06/14/2005 (Stress). There has been no significant change in left ventricular systolic function. Stress Echocardiogram 11/09/2017: Interpretation Summary: Normal, adequate, modified Scooby treadmill echocardiogram. Negative for ischemiaby EKG and echocardiographic criteria. No anginal symptoms noted. No arrhythmiasnoted. Appropriate blood pressure response to exercise. Average exercise capacity for age. Average exercise capacity for age. Final LVEF is 75%. Test terminated due to knee pain. Stress Test 05/09/2023: Conclusions: 1. SPECT Perfusion Study: Abnormal 2. There is mild (<10%) ischemia in the territory of the LCX. 3. There is a moderate (10-20%) fixed perfusion defect in the LCX territory. 4. Left ventricle is normal in size. The left ventricle systolic function is mildly decreased. 5. Right ventricle is normal in size. The right ventricle systolic function is normal. 6. This is an intermediate risk scan due to area of scar/ischemia and calculatedLVEF. Stress Test 09/19/2013: Conclusions: Normal near maximal, low level treadmill stress ecg. Clinically negative for ischemia Normal HR recover. Cardiac Catheterization 03/30/2017: Conclusions: Successful PTCA/DAVID of the proximal/mid LCX with 2.5 x 20 Promus Synergy stent, post dilated centrally and proximally with 3.0 x 8 NC balloon, 75%--0%, no dissection. Cardiac Catheterization 12/20/2016: Conclusions: Double vessel CAD of the LAD and Distal RCA Acute TN due to occlusion of RCA Right heart pressures- Normal Large infrarenal sacular AAA, no thrombus. Successful PTCA/DAVID of the Proximal RCA Cardiac Catheterization 07/03/2013: Final Impressions: 1. Coronary atherosclerotic heart disease. a. Totally occluded left anterior descending artery that fills distally now via the CASTILLO graft. b. Totally occluded left circumflex artery representing the culprit lesion for the acute cardiac event. c. Mild disease of the ramus artery. The site of the previous stent being patent with no significant in-stent re-stenosis and excellent flow. d. Large dominant right coronary artery with mild plaquing disease, but no significant stenosis appreciated. The site of the previous stent is also widely patent with 0% in-stent re-stenosis and excellent flow. 2. Mild LV dysfunction with lateral posterior hypokinesis and overall estimated ejection fraction of 45-50%. 3. Patent CASTILLO graft to the left anterior descending artery with good distal runoff and no significant stenosis. PTCA and Stent 07/03/2013: Diagnostic Impression: 1. Successful balloon angioplast and stent of the left circumflex artery reducing the initital stenosis of 100% to a residual of 0% with CHRISTA grade 0 flow pre-procedure and CHRISTA grade III flow post procedure. Please note: We did occlude a first obtuse marginal branch was somewhat small to medium in caliber, but we could not recanalize despite attempts to recanalize it. However it did appear to be returning back on its own towards the end of the procedure and thismost likely returned back and the patient is presently pain-free, which shows that I do think he will stabilize over a period of time with medical therapy. Cardiac Catheterization 01/26/2008: Diagnostic Impressions: 1. Two vessel coronary artery disease with normal left ventricular systolic function. 2. CASTILLO to the left anterior descending is widely patent. PTCA and Stent 01/26/2008: Results: Successful balloon angioplasty and stent of the left main trunk reducing the initial stenosis of 70-80% to a residual of zero percent and a diagonal branch of 100% to a residual of zero percent with a CHRISTA grade III flow pre and post procedure. Carotid Duplex US Bilat 10/04/2023: Impression: Right Side: Common Carotid Artery: Endarterectomy patch at distal: 1.35cm Internal carotid Artery: 20-39% stenosis External Carotid Artery: Elevated velocities and plaque noted Vertebral Artery: Patent and antegrade flow noted. High resistive signal suggests non-dominant vessel or more distal disease; clinical correlation is suggested. Subclavian Artery: 50-99% stenosis Left Side: Common Carotid Artery: Plaque visualized without evidence of hemodynamically significant stenosis. Internal Carotid Artery: 40-59% stenosis. External Carotid Artery: Eleveated velocities and plaque noted. Vertebral Artery: Patent and antegrade flow noted. Turbulent flow noted. Subclavian Artery: Patent. US Abdominal Aorta 10/04/2023: Impression: Compared to prior study of 10/08/2022, no significant change. Aorta: Abdominal aortic aneurysm measuring 4.3 cm at mid. Right Vessels: Common iliac artery patent without evidence of aneurysm. Common iliac artery plaque noted without evidence of hemodynamically significantstenosis. Internal iliac artery patent without evidence of aneurysm at origin. Left Vessels: Common iliac artery patent without evidence of aneurysm. Common iliac artery plaque noted without evidence of hemodynamically significantstenosis. Internal iliac artery not visualized. Bilateral Lower Extremity US Arterial Exam 03/30/2012: Impression: 1. Normal bilateral lower extremity arterial doppler examination at rest and exercise with no evidence for hemodynamically significant peripheral vascular occlusive disease. Assessment and Plan Assessment and Plan (1) Dyspnea: Status: Acute Plan: Patient has remote history of smoking. Decreased air entry on clinical examination along with wheezing. Consider COPD. Referred to pulmonology. In the interim, I have have taken the liberty of starting patient on Advair. From a cardiac standpoint, check echocardiogram. Also check Lexiscan stress Myoview to rule out ischemia. Increase Imdur to 60 mg daily. (2) Coronary artery disease: Status: Chronic Comment: History of single-vessel CABG with CASTILLO to LAD. Drug-eluting stents to RCA and left circumflex. Plan: See #1 above. Check echocardiogram. Check Lexiscan stress Myoview. Increase Imdur to 60 mg daily. Continue clopidogrel. (3) Hypertension: Status: Chronic Qualifiers: Hypertension type: essential hypertension Qualified Code(s): I10 - Essential (primary) hypertension Plan: Carvedilol, furosemide, isosorbide. Amlodipine. Losartan. (4) Carotid bruit: Status: Chronic Plan: Check bilateral carotid Doppler. (5) Dyslipidemia: Status: Chronic Plan: Patient intolerant of statins in the past. Repeat lipid profile. (6) History of diabetes mellitus: Status: Chronic Plan: As per PCP. (7) Abdominal aortic aneurysm: Status: Chronic Plan: Check abdominal ultrasound. (8) Chronic kidney disease: Status: Chronic Plan: Monitor creatinine. Plan Details Follow Up: 4 Weeks Coding Level of Care Code Off vis,new,level 4 Diagnoses Dyspnea R06.00 Coronary artery disease I25.10 Essential hypertension I10 Hypertension type: essential hypertension Carotid bruit R09.89 Dyslipidemia E78.5 History of diabetes mellitus Z86.39 Abdominal aortic aneurysm I71.40 Chronic kidney disease N18.9 Coding Level of Care Code Off vis,new,level 4 Diagnoses Dyspnea R06.00 Coronary artery disease I25.10 Essential hypertension I10 Hypertension type: essential hypertension Carotid bruit R09.89 Dyslipidemia E78.5 History of diabetes mellitus Z86.39 Abdominal aortic aneurysm I71.40 Chronic kidney disease N18.9 Clinical Quality Measures Falls Risk Screening/Assistive Devices Have you fallen in the past year?: Yes (single episode; no major injury) Cardiac Ejection fraction %: 55 01/15/25 1425 <Electronically signed by Srini Montano MD> Date _ Srini Montano MD Cosigner Signature: Date (if applicable) CC: Dr. Samson Ragsdale, DO ~ [facility] Work Phone: [phone] Discharge summary [facility] Medical Records Department [address] [place] [address] Emergency Department Summary 01/13/25 MR#: [id number] Acct: [id number] Name: ABRAHAM GAGE Rep #:[id number] : 1940 84 From: Adam Mon MD PCP: Dr. Samson Ragsdale DO Status:RE G ER Location: ED HPI History of Present Illness Chief Complaint: Shortness of Breath Informant: patient Onset/Context/Timing Onset: Weeks (The last week.) Context: gradual Timing: Intermittent Quality: Positive for Orthopnea Current Severity: Mild Maximum Severity: Mild Worsened by: Lying flat Relieved by: other (Upright it resolves.) Associated Symptoms Negative for cough Chest Pain: Positive for None Narrative Narrative: 84-year-old male history of TN, hypertension, diabetes, ischemic cardiomyopathy and prior prostate cancer prostatectomy. No metastasis. States the last week he has been short of breath for 7 to 10 days. Primarily when he is supine. Better upright. Better walking. No prior history. Denies chest pain. Denies fever or cough. States he does have leg swelling is slightly worse. PE Risk Factors: Negative for OCP + Smoking + > 35, Prior DVT or PE, Recent immobilization, Recent surgery or Recent travel Prior similar symptoms: Yes Recent Illness/Hospitalization: No PFSH PFSH Medical History (Updated 01/14/25 @ 02:[address] Adam Mon MD) GI bleed due to NSAIDs Carotid artery stenosis Abdominal aortic aneurysm without rupture Ischemic cardiomyopathy Prostate cancer PVD (peripheral vascular disease) Atherosclerosis of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[place] heart without angina pectoris Complete heart block ST elevation TN (STEMI) Chronic kidney disease, stage 3 Hyperlipidemia Hypertension Home Medications ?Medication ?Instructions ?Recorded ?Last Taken ?Type calcium carbonate 1 tab PO DAILY 03/29/17 Unkn own History isosorbide mononitrate 30 mg 30 mg PO DAILY 03/29/17 0 03/30/17 History tablet,extended release 24 hr cetirizine 10 mg tablet (Zyrtec) 5 mg PO DAILY 8 Unknown History coenzyme Q10 100 mg capsule 200 mg PO DAILY 05/08/18 U nknown History (CoQ-10) insulin glargine 100 unit/mL 10 unit subcut QHS Unknown History subcutaneous solution (Lantus U-100 Insulin) B-complex with vitamin C 1 cap PO DAILY 11/23/18 Unkn own History magnesium oxide 400 mg (241.3 mg 500 mg PO DAILY 11/23 Unknown History magnesium) tablet turmeric root extract 500 mg 1,400 mg PO DAILY 9 Unknown History capsule allopurinol 100 mg tablet 100 mg PO DAILY 06/21/19 Unk nown History cholecalciferol (vitamin D3) 125 5,000 unit PO DAILY 1 08/21/18 Unknown History mcg (5,000 unit) capsule losartan 50 mg tablet 25 mg PO DAILY 06/21/19 Unkn own History famotidine 20 mg tablet 20 mg PO QHS PRN 02/07/20 Un known History furosemide 40 mg tablet 40 mg PO .COMPLEX PRN edema 02/07/20 Unknown History clopidogrel 75 mg tablet 75 mg PO DAILY #90 tabs 08/01 04/21 Unknown Rx carvedilol 12.5 mg tablet 25 mg PO DAILY 04/21/21 Unkn own History oxycodone-acetaminophen 5 mg-325 1 tab PO Q6H PRN PRN Pain 3 days 01/12/24 Unknown Rx mg tablet #12 TABLETS amlodipine 5 mg tablet 10 mg PO DAILY 01/13/25 Unkn own History cyanocobalamin (vitamin B-12) 5,000 mcg PO DAILY 01/13 Unknown History 5,000 mcg capsule ferrous sulfate, dried 159 mg (45 159 mg PO DAILY 12/30 12/23 Unknown History mg iron) tablet,extended release (iron ER) zinc 50 mg tablet 50 mg PO DAILY 01/13/25 Unkn own History Allergy/AdvReac Type Severity Reaction Status Date / Time atorvastatin (From Lipitor) Allergy Unknown Verified 01/13/25 22:13 glucosamine Allergy Unknown Verified 01/13/25 22:13 Family History Father Arthritis Mother Hypertension Grandmother Diabetes Surgical History History of prostatectomy History of right-sided carotid endarterectomy History of coronary artery stent placement H/O coronary artery bypass surgery (~1994) Social History Smoking Status: Former smoker how long ago did patient quit smokin+years ago alcohol intake: current alcohol intake frequency: holidays/special occasions only substance use type: does not use caffeine: Yes Type: coffee and tea ROS ROS ED ROS Narrative Positional shortness of breath primarily supine. No chest pain. No fever. No new cough. Constitutional Constitutional ED: Denies chills or fever(s) Eyes Eyes: Denies blurry vision ENT ENT ED: Denies ear pain Cardiovascular Cardiovascular: Reports orthopnea; Denies chest pain or palpitations Respiratory/Chest Respiratory/Chest: Reports dyspnea and orthopnea Gastrointestinal Gastrointestinal: Denies abdominal pain, diarrhea, nausea or vomiting Genitourinary Genitourinary ED: Denies dysuria or hematuria Musculoskeletal Musculoskeletal: Denies arthralgias Integumentary Denies abscess Neurologic Neurologic: Denies headache(s) Psychiatric Psychiatric: Denies anxiety Endocrine Endocrinology: Denies cold intolerance Hematologic/Lymphatic Hematologic/Lymphatic: Denies easy bleeding Allergic/Immunologic Allergic/Immunologic ED: Denies mouth swelling, tongue swelling or urticaria EXAM Physical Exam Narrative Exam Narrative: 84-year-old male sitting upright in bed. Vital signs are stable pulse ox 96% onroom air no hypoxia.H EENT exam pupils round react light. Extra motions are intact. Moist extremities. Neck nontender no JVD. Lungs clear to auscultationbilaterally. No rales or rhonchi. Equal symmetrical. Heart rate abo ut 65 no murmur. Chest wall ribs nontender. Abdomen soft nontender. Moving all 4 extremities. Normal strength. Normal range of motion. He does have trace edema in both lower extremities. Calves are nontender. No cords. Neurologically he is awake alert. Answering questions and following commands. Back nontender. No focal motor deficits. Const Vital Signs: 01/13/25 22:13 01/13/25 22:15 01/13/25 23:12 Temperature 97.8 F 97.8 F Temperature Source Oral Oral Pulse Rate 64 59 L 60 Respiratory Rate 40 H 18 21 H Respiratory Effort Respiratory Depth Respiratory Pattern Blood Pressure 114/43 L 110/53 L 111/56 L Blood Pressure Mean 66 72 74 Pulse Ox 96 95 95 Oxygen Delivery Method Room Air Room Air Room Air 01/13/25 23:15 01/13/25 23:15 01/13/25 23:32 Temperature 97.8 F Temperature Source Temporal Pulse Rate 60 Respiratory Rate 17 Respiratory Effort Short of Breath Labored Respiratory Depth Normal Respiratory Pattern Normal Blood Pressure 111/56 L Blood Pressure Mean 74 Pulse Ox 97 95 Oxygen Delivery Method Room Air Room Air Room Air 01/14/25 00:00 01/14/25 00:00 01/14/25 01:00 Temperature 98 F Temperature Source Oral Pulse Rate 58 L 59 L 61 Respiratory Rate 20 H 15 22 H Respiratory Effort Respiratory Depth Respiratory Pattern Blood Pressure 116/53 L 116/53 L 116/57 L Blood Pressure Mean 74 74 76 Pulse Ox 96 95 95 Oxygen Delivery Method Room Air Room Air Room Air 01/14/25 01:54 Temperature Temperature Source Pulse Rate 56 L Respiratory Rate 20 H Respiratory Effort Respiratory Depth Respiratory Pattern Blood Pressure 109/64 Blood Pressure Mean 79 Pulse Ox 93 Oxygen Delivery Method Room Air Positive well nourished and well developed; Negative for obese, cachectic, contractures or unkempt General Appearance ED: well developed and NAD; Negative for unkempt, cachectic, contractures or pallor Nutritional Appearance: Negative for cachectic or obese HEENT Reports moist mucous membranes atraumatic; Negative for trauma or tenderness Eyes PERRL and EOMs intact bilaterally General Eye ED: Negative for pale conjunctiva or scleral icterus Neck no lymphadenopathy, supple, no meningeal signs and no JVD General: Negative for tenderness Lymph Lymphatic: Negative for other Chest Wall Chest: Negative for other Resp normal respiratory effort and clear to auscultation bilaterally Cardio regular rate, regular rhythm, S1 normal heart sound, S2 normal heart sound and no murmurs GI non-tender, non-distended and no masses Auscultation: normoactive bowel sounds Palpation: soft; Negative for tender, guarding or rebound tenderness present Back/Spine no CVA tenderness and normal to inspection Extremity Negative for normal to inspection Extremity Narrative: Edema both lower extremities. Nontender. No cords. Calves are nontender. General Extremety ED: Yes edema; Negative for tenderness General Extremity: edema Neuro oriented x3 and CN's II-XII intact bilaterally Sensorium / Orientation: alert, oriented to person, oriented to place and oriented to time; Negative for orientation impaired, confused, lethargic or stuporous Speech: speech normal Motor Exam: strength 5/5 throughout Psych mental status grossly normal Appearance: Negative for unkempt Attitude: No agitated Mood & Affect: Negative for depressed, anxious or tearful Thought Process: normal thought process Skin no wounds and skin turgor normal General Skin Exam: Negative for jaundice or pallor Lesions: no lesions Rashes: no rashes Trauma: Negative for abrasion or laceration MDM MDM MDM Narrative Medical decision making narrative: 84-year-old male with history of ischemic cardiomyopathy and diabetes with positional shortness of breath primarily supine. Exam benign other than trace edema both lower extremities. Undergo cardiac workup with a chest x-ray concernfor possible pleural effusions or CHF. I do not think it is an acute cardiac event. He has no history or risk factors for DVT or PE. Repeat exam patient is doing well at 2:05 AM. Went over test results of both heand his family. There is no specific cause for his positional dyspnea. It may be associated to his underlying cardiomyopathy. He has an appointment to see his public transit specialist on Tuesday. They are comfortable with him being discharged to home. Currently his vital signs are stable and his pulse ox is 94% on room air. History & Record Review Discussion w/independent historian: Patient Additional record(s) reviewed:: Prior inpatient record, Prior outpatient record,Prior ED visit and Prior labs Lab Data Attestation: I reviewed the patient's lab results. Lab results narrative: CBC shows a white count of 10. H&H 11.8 and 36. Platelets 326. Electrolytes show sodium 139. Gap 14. BUN and creatinine of 42 and 2.35. Glucose 167. Initial troponin 53. 2-hour troponin 52. BNP 235. Chest x-ray chronic changes. No acute process. Labs are consistent with his baseline labs. Labs: Laboratory Results - last 24 hr 01/13/25 01/14/25 23:15 01:20 WBC 10.7 RBC 4.26 L Hgb 11.8 L Hct 36.9 L MCV 86.6 MCH 27.7 MCHC 32.0 RDW Std Deviation 44.2 H RDW Coeff of Aileen 13.9 Plt Count 326 MPV 10.4 Immature Gran % (Auto) 0.300 Neut % (Auto) 70.0 Lymph % (Auto) 18.6 L Mclennan % (Auto) 8.2 Eos % (Auto) 2.5 Baso % (Auto) 0.4 Absolute Neuts (auto) 7.5 Absolute Lymphs (auto) 1.99 Nucleated RBC % 0 Sodium 139 Potassium 4.4 Chloride 98 Carbon Dioxide 26.5 Anion Gap 14 BUN 42 H Creatinine 2.35 H Estim Creat Clear Calc 23.04 L Est GFR (MDRD) Non-Af 27 L BUN/Creatinine Ratio 17.7 Glucose 167 H Calcium 9.3 Troponin T High Sens 53 H Troponin T Hi Sens 2 Hr 52 H NT pro BNP II 235 Radiography Chest X-Ray - ED: 2 View, Read by ED Physician, Read by Radiologist, Heart, Lungs, Mediastinum, Bony Structures, No Acute Disease and Chronic Changes Diagnostic Testing: Clinical Impression(s) from Imaging Studies Chest X-Ray 01/13/25 23:40 IMPRESSION: No focal consolidations. No pleural effusion or pneumothorax. Left base subsegmental atelectasis. Reading Location: [facility] Chest x-ray, 2 views, interpreted by myself and the radiologist shows normal cardiac silhouette. Normal lung alvarenga. Chronic changes. Prior sternotomy. No effusions. No pneumonia. No congestive heartfailure. Rhythm Strip Rhythm Strip: Sinus Rhythm Rate: 61 Ectopy: None EKG Initial EKG: Attestation: I personally reviewed and interpreted this EKG as follows: Interpretation: Sinus Rhythm and No Acute Injury Pattern Comments: Normal sinus rhythm rate of 61 no acute signs of TN or ischemia. Discharge Plan Triage Chief Complaint: Shortness of Breath ED Provider: Adam Mon Dx/Rx/DC Orders Clinical Impression: Acute dyspnea, History of cardiomyopathy, History of acute myocardial infarction, Chronic kidney disease, Chronic anemia, History of diabetes mellitus Instructions: ED Dyspnea Prescriptions: No Action Lantus U-100 Insulin 100 unit/mL solution 10 unit SC QHS cetirizine [Zyrtec] 10 mg tablet 5 mg PO DAILY coenzyme Q10 [CoQ-10] 100 mg capsule 200 mg PO DAILY magnesium oxide 400 mg (241.3 mg magnesium) tablet 500 mg PO DAILY turmeric root extract 500 mg capsule 1,400 mg PO DAILY B-complex with vitamin C capsule 1 cap PO DAILY allopurinol 100 mg tablet 100 mg PO DAILY losartan 50 mg tablet 25 mg PO DAILY cholecalciferol (vitamin D3) 5,000 unit capsule 5,000 unit PO DAILY furosemide 40 mg tablet 40 mg PO .COMPLEX PRN (Reason: edema) Rx Instructions: 40 mg PO once daily, may take an extra one prn for edema; PRN; famotidine 20 mg tablet 20 mg PO QHS PRN Patient Comments: Take 1 tablet by mouth at bedtime as needed. carvedilol 12.5 mg tablet 25 mg PO DAILY Rx Instructions: must administer with a meal/food isosorbide mononitrate 30 MG tablet extended release 24 hr 30 mg PO DAILY Patient Comments: Heart calcium carbonate 500 MG tablet,chewable 1 tab PO DAILY Patient Comments: Supplement oxycodone-acetaminophen 5-325 mg tablet 1 tab PO Q6H PRN PRN (Reason: Pain) 3 Days Qty: 12 0RF iron 159 mg (45 mg iron) tablet extended release 159 mg PO DAILY zinc 50 mg tablet 50 mg PO DAILY cyanocobalamin (vitamin B-12) 5,000 mcg capsule 5,000 mcg PO DAILY amlodipine 5 mg tablet 10 mg PO DAILY clopidogrel 75 mg tablet 75 mg PO DAILY Qty: 90 3RF Primary Care Provider: Samson Ragsdale Referrals: Srini Montano MD [Med Staff - Active Staff] - Keep Brii appointment Samson Ragsdale DO [Primary Care Provider] - Activity Restrictions/Additional Instructions: Your tests are consistent with your prior labs. No acute cause for your shortness of breath. Follow-up with your public transit specialist. Print Language: [place] Disposition Disposition: Home, Self Care What to do if you have Problems For any increased pain, shortness of breath, bleeding, nausea or vomiting, chestpain, or any unexpected problems, contact your Primary Care Provider. Call [facility] ([phone]) or report tothe closest Emergency Room. Call 911 if necessary. 01/14/25 0207 Cosigner Signature (if applicable): CC: Dr. Samson Ragsdale DO ~ Signed [facility]06-16-2025 Radiology Diagnostic study note [facility] Imaging Services [address] [place], [place] [id number] Chest PA and Lateral MR#: [id number] Acct: [id number] Name: ABRAHAM GAGE Rep #: [id number] : 1940 M 84 From: Le Rowell MD PCP: Dr. Samson Ragsdale DO Status: RE G ER Study:Chest PA and Lateral Date of Exam: 01/13/25 Exam# [id number] Ordering Dr: Eliazar Mon MD PROCEDURE: CHEST PA AND LATERAL 01/13/2025 REASON FOR EXAM: CHEST PAIN TECHNIQUE: CHEST PA AND LATERAL COMPARISON: none FINDINGS: Median sternotomy wires. Aortic arch calcification. Left base subsegmental atelectasis. No focal consolidations. No pleural effusion or pneumothorax. RAD/Chest PA and Lateral IMPRESSION: No focal consolidations. No pleural effusion or pneumothorax. Left base subsegmental atelectasis. Reading Location: [facility] CC: Dr. Adam Mon MD; Dr. Samson Ragsdale DO ~ Md Psychiatry: Signed [facility]06-15-2025 Discharge summary Author Adam Mon [facility] Note Date/Time January 14, 2025 2:07 am [facility] Medical Records Department [address] [place] [id number] Emergency Department Summary 01/13/25 MR#: [id number] Acct: [id number] Name: ABRAHAM GAGE Rep #:[id number] : 1940 84 From: Adam Mon MD PCP: Dr. Samson Ragsdale DO Status:RE G ER Location: ED HPI History of Present Illness Chief Complaint: Shortness of Breath Informant: patient Onset/Context/Timing Onset: Weeks (The last week.) Context: gradual Timing: Intermittent Quality: Positive for Orthopnea Current Severity: Mild Maximum Severity: Mild Worsened by: Lying flat Relieved by: other (Upright it resolves.) Associated Symptoms Negative for cough Chest Pain: Positive for None Narrative Narrative: 84-year-old male history of TN, hypertension, diabetes, ischemic cardiomyopathy and prior prostate cancer prostatectomy. No metastasis. States the last week he has been short of breath for 7 to 10 days. Primarily when he is supine. Better upright. Better walking. No prior history. Denies chest pain. Denies fever or cough. States he does have leg swelling is slightly worse. PE Risk Factors: Negative for OCP + Smoking + > 35, Prior DVT or PE, Recent immobilization, Recent surgery or Recent travel Prior similar symptoms: Yes Recent Illness/Hospitalization: No [facility] Medical History (Updated 01/14/25 @ 02:[address] Adam Mon MD) GI bleed due to NSAIDs Carotid artery stenosis Abdominal aortic aneurysm without rupture Ischemic cardiomyopathy Prostate cancer PVD (peripheral vascular disease) Atherosclerosis of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[place] heart without angina pectoris Complete heart block ST elevation TN (STEMI) Chronic kidney disease, stage 3 Hyperlipidemia Hypertension Home Medications ?Medication ?Instructions ?Recorded ?Last Taken ?Type calcium carbonate 1 tab PO DAILY 03/29/17 Unkn own History isosorbide mononitrate 30 mg 30 mg PO DAILY 03/29/17 0 03/30/17 History tablet,extended release 24 hr cetirizine 10 mg tablet (Zyrtec) 5 mg PO DAILY 8 Unknown History coenzyme Q10 100 mg capsule 200 mg PO DAILY 05/08/18 U nknown History (CoQ-10) insulin glargine 100 unit/mL 10 unit subcut QHS Unknown History subcutaneous solution (Lantus U-100 Insulin) B-complex with vitamin C 1 cap PO DAILY 11/23/18 Unkn own History magnesium oxide 400 mg (241.3 mg 500 mg PO DAILY 11/23 Unknown History magnesium) tablet turmeric root extract 500 mg 1,400 mg PO DAILY 9 Unknown History capsule allopurinol 100 mg tablet 100 mg PO DAILY 06/21/19 Unk nown History cholecalciferol (vitamin D3) 125 5,000 unit PO DAILY 1 08/21/18 Unknown History mcg (5,000 unit) capsule losartan 50 mg tablet 25 mg PO DAILY 06/21/19 Unkn own History famotidine 20 mg tablet 20 mg PO QHS PRN 02/07/20 Un known History furosemide 40 mg tablet 40 mg PO .COMPLEX PRN edema 02/07/20 Unknown History clopidogrel 75 mg tablet 75 mg PO DAILY #90 tabs 08/01 04/21 Unknown Rx carvedilol 12.5 mg tablet 25 mg PO DAILY 04/21/21 Unkn own History oxycodone-acetaminophen 5 mg-325 1 tab PO Q6H PRN PRN Pain 3 days 01/12/24 Unknown Rx mg tablet #12 TABLETS amlodipine 5 mg tablet 10 mg PO DAILY 01/13/25 Unkn own History cyanocobalamin (vitamin B-12) 5,000 mcg PO DAILY 01/13 Unknown History 5,000 mcg capsule ferrous sulfate, dried 159 mg (45 159 mg PO DAILY 12/30 12/23 Unknown History mg iron) tablet,extended release (iron ER) zinc 50 mg tablet 50 mg PO DAILY 01/13/25 Unkn own History Allergy/AdvReac Type Severity Reaction Status Date / Time atorvastatin (From Lipitor) Allergy Unknown Verified 01/13/25 22:13 glucosamine Allergy Unknown Verified 01/13/25 22:13 Family History Father Arthritis Mother Hypertension Grandmother Diabetes Surgical History History of prostatectomy History of right-sided carotid endarterectomy History of coronary artery stent placement H/O coronary artery bypass surgery (~1994) Social History Smoking Status: Former smoker how long ago did patient quit smokin+years ago alcohol intake: current alcohol intake frequency: holidays/special occasions only substance use type: does not use caffeine: Yes Type: coffee and tea ROS ROS ED ROS Narrative Positional shortness of breath primarily supine. No chest pain. No fever. No new cough. Constitutional Constitutional ED: Denies chills or fever(s) Eyes Eyes: Denies blurry vision ENT ENT ED: Denies ear pain Cardiovascular Cardiovascular: Reports orthopnea; Denies chest pain or palpitations Respiratory/Chest Respiratory/Chest: Reports dyspnea and orthopnea Gastrointestinal Gastrointestinal: Denies abdominal pain, diarrhea, nausea or vomiting Genitourinary Genitourinary ED: Denies dysuria or hematuria Musculoskeletal Musculoskeletal: Denies arthralgias Integumentary Denies abscess Neurologic Neurologic: Denies headache(s) Psychiatric Psychiatric: Denies anxiety Endocrine Endocrinology: Denies cold intolerance Hematologic/Lymphatic Hematologic/Lymphatic: Denies easy bleeding Allergic/Immunologic Allergic/Immunologic ED: Denies mouth swelling, tongue swelling or urticaria EXAM Physical Exam Narrative Exam Narrative: 84-year-old male sitting upright in bed. Vital signs are stable pulse ox 96% onroom air no hypoxia. H EENT exam pupils round react light. Extra motions are intact. Moist extremities. Neck nontender no JVD. Lungs clear to auscultationbilaterally. No rales or rhonchi. Equal symmetrical. Heart rate about 65 no murmur. Chest wall ribs nontender. Abdomen soft nontender. Moving all 4 extremities. Normal strength. Normal range of motion. He does have trace edema in both lower extremities. Calves are nontender. No cords. Neurologically he is awake alert. Answering questions and following commands. Back nontender. No focal motor deficits. Const Vital Signs: 01/13/25 22:13 01/13/25 22:15 01/13/25 23:12 Temperature 97.8 F 97.8 F Temperature Source Oral Oral Pulse Rate 64 59 L 60 Respiratory Rate 40 H 18 21 H Respiratory Effort Respiratory Depth Respiratory Pattern Blood Pressure 114/43 L 110/53 L 111/56 L Blood Pressure Mean 66 72 74 Pulse Ox 96 95 95 Oxygen Delivery Method Room Air Room Air Room Air 01/13/25 23:15 01/13/25 23:15 01/13/25 23:32 Temperature 97.8 F Temperature Source Temporal Pulse Rate 60 Respiratory Rate 17 Respiratory Effort Short of Breath Labored Respiratory Depth Normal Respiratory Pattern Normal Blood Pressure 111/56 L Blood Pressure Mean 74 Pulse Ox 97 95 Oxygen Delivery Method Room Air Room Air Room Air 01/14/25 00:00 01/14/25 00:00 01/14/25 01:00 Temperature 98 F Temperature Source Oral Pulse Rate 58 L 59 L 61 Respiratory Rate 20 H 15 22 H Respiratory Effort Respiratory Depth Respiratory Pattern Blood Pressure 116/53 L 116/53 L 116/57 L Blood Pressure Mean 74 74 76 Pulse Ox 96 95 95 Oxygen Delivery Method Room Air Room Air Room Air 01/14/25 01:54 Temperature Temperature Source Pulse Rate 56 L Respiratory Rate 20 H Respiratory Effort Respiratory Depth Respiratory Pattern Blood Pressure 109/64 Blood Pressure Mean 79 Pulse Ox 93 Oxygen Delivery Method Room Air Positive well nourished and well developed; Negative for obese, cachectic, contractures or unkempt General Appearance ED: well developed and NAD; Negative for unkempt, cachectic, contractures or pallor Nutritional Appearance: Negative for cachectic or obese HEENT Reports moist mucous membranes atraumatic; Negative for trauma or tenderness Eyes PERRL and EOMs intact bilaterally General Eye ED: Negative for pale conjunctiva or scleral icterus Neck no lymphadenopathy, supple, no meningeal signs and no JVD General: Negative for tenderness Lymph Lymphatic: Negative for other Chest Wall Chest: Negative for other Resp normal respiratory effort and clear to auscultation bilaterally Cardio regular rate, regular rhythm, S1 normal heart sound, S2 normal heart sound and no murmurs GI non-tender, non-distended and no masses Auscultation: normoactive bowel sounds Palpation: soft; Negative for tender, guarding or rebound tenderness present Back/Spine no CVA tenderness and normal to inspection Extremity Negative for normal to inspection Extremity Narrative: Edema both lower extremities. Nontender. No cords. Calves are nontender. General Extremety ED: Yes edema; Negative for tenderness General Extremity: edema Neuro oriented x3 and CN's II-XII intact bilaterally Sensorium / Orientation: alert, oriented to person, oriented to place and oriented to time; Negative for orientation impaired, confused, lethargic or stuporous Speech: speech normal Motor Exam: strength 5/5 throughout Psych mental status grossly normal Appearance: Negative for unkempt Attitude: No agitated Mood & Affect: Negative for depressed, anxious or tearful Thought Process: normal thought process Skin no wounds and skin turgor normal General Skin Exam: Negative for jaundice or pallor Lesions: no lesions Rashes: no rashes Trauma: Negative for abrasion or laceration MDM MDM MDM Narrative Medical decision making narrative: 84-year-old male with history of ischemic cardiomyopathy and diabetes with positional shortness of breath primarily supine. Exam benign other than trace edema both lower extremities. Undergo cardiac workup with a chest x-ray concernfor possible pleural effusions or CHF. I do not think it is an acute cardiac event. He has no history or risk factors for DVT or PE. Repeat exam patient is doing well at 2:05 AM. Went over test results of both heand his family. There is no specific cause for his positional dyspnea. It may be associated to his underlying cardiomyopathy. He has an appointment to see his public transit specialist on Tuesday. They are comfortable with him being discharged to home. Currently his vital signs are stable and his pulse ox is 94% on room air. History & Record Review Discussion w/independent historian: Patient Additional record(s) reviewed:: Prior inpatient record, Prior outpatient record,Prior ED visit and Prior labs Lab Data Attestation: I reviewed the patient's lab results. Lab results narrative: CBC shows a white count of 10. H&H 11.8 and 36. Platelets 326. Electrolytes show sodium 139. Gap 14. BUN and creatinine of 42 and 2.35. Glucose 167. Initial troponin 53. 2-hour troponin 52. BNP 235. Chest x-ray chronic changes. No acute process. Labs are consistent with his baseline labs. Labs: Laboratory Results - last 24 hr 01/13/25 01/14/25 23:15 01:20 WBC 10.7 RBC 4.26 L Hgb 11.8 L Hct 36.9 L MCV 86.6 MCH 27.7 MCHC 32.0 RDW Std Deviation 44.2 H RDW Coeff of Aileen 13.9 Plt Count 326 MPV 10.4 Immature Gran % (Auto) 0.300 Neut % (Auto) 70.0 Lymph % (Auto) 18.6 L Mclennan % (Auto) 8.2 Eos % (Auto) 2.5 Baso % (Auto) 0.4 Absolute Neuts (auto) 7.5 Absolute Lymphs (auto) 1.99 Nucleated RBC % 0 Sodium 139 Potassium 4.4 Chloride 98 Carbon Dioxide 26.5 Anion Gap 14 BUN 42 H Creatinine 2.35 H Estim Creat Clear Calc 23.04 L Est GFR (MDRD) Non-Af 27 L BUN/Creatinine Ratio 17.7 Glucose 167 H Calcium 9.3 Troponin T High Sens 53 H Troponin T Hi Sens 2 Hr 52 H NT pro BNP II 235 Radiography Chest X-Ray - ED: 2 View, Read by ED Physician, Read by Radiologist, Heart, Lungs, Mediastinum, Bony Structures, No Acute Disease and Chronic Changes Diagnostic Testing: Clinical Impression(s) from Imaging Studies Chest X-Ray 01/13/25 23:40 IMPRESSION: No focal consolidations. No pleural effusion or pneumothorax. Left base subsegmental atelectasis. Reading Location: [facility] Chest x-ray, 2 views, interpreted by myself and the radiologist shows normal cardiac silhouette. Normal lung alvarenga. Chronic changes. Prior sternotomy. No effusions. No pneumonia. No congestive heart failure. Rhythm Strip Rhythm Strip: Sinus Rhythm Rate: 61 Ectopy: None EKG Initial EKG: Attestation: I personally reviewed and interpreted this EKG as follows: Interpretation: Sinus Rhythm and No Acute Injury Pattern Comments: Normal sinus rhythm rate of 61 no acute signs of TN or ischemia. Discharge Plan Triage Chief Complaint: Shortness of Breath ED Provider: Adam Mon Dx/Rx/DC Orders Clinical Impression: Acute dyspnea, History of cardiomyopathy, History of acute myocardial infarction, Chronic kidney disease, Chronic anemia, History of diabetes mellitus Instructions: ED Dyspnea Prescriptions: No Action Lantus U-100 Insulin 100 unit/mL solution 10 unit SC QHS cetirizine [Zyrtec] 10 mg tablet 5 mg PO DAILY coenzyme Q10 [CoQ-10] 100 mg capsule 200 mg PO DAILY magnesium oxide 400 mg (241.3 mg magnesium) tablet 500 mg PO DAILY turmeric root extract 500 mg capsule 1,400 mg PO DAILY B-complex with vitamin C capsule 1 cap PO DAILY allopurinol 100 mg tablet 100 mg PO DAILY losartan 50 mg tablet 25 mg PO DAILY cholecalciferol (vitamin D3) 5,000 unit capsule 5,000 unit PO DAILY furosemide 40 mg tablet 40 mg PO .COMPLEX PRN (Reason: edema) Rx Instructions: 40 mg PO once daily, may take an extra one prn for edema; PRN; famotidine 20 mg tablet 20 mg PO QHS PRN Patient Comments: Take 1 tablet by mouth at bedtime as needed. carvedilol 12.5 mg tablet 25 mg PO DAILY Rx Instructions: must administer with a meal/food isosorbide mononitrate 30 MG tablet extended release 24 hr 30 mg PO DAILY Patient Comments: Heart calcium carbonate 500 MG tablet,chewable 1 tab PO DAILY Patient Comments: Supplement oxycodone-acetaminophen 5-325 mg tablet 1 tab PO Q6H PRN PRN (Reason: Pain) 3 Days Qty: 12 0RF iron 159 mg (45 mg iron) tablet extended release 159 mg PO DAILY zinc 50 mg tablet 50 mg PO DAILY cyanocobalamin (vitamin B-12) 5,000 mcg capsule 5,000 mcg PO DAILY amlodipine 5 mg tablet 10 mg PO DAILY clopidogrel 75 mg tablet 75 mg PO DAILY Qty: 90 3RF Primary Care Provider: Samson Rgasdale Referrals: Srini Montano MD [Med Staff - Active Staff] - Keep Brii appointment Samson Ragsdale DO [Primary Care Provider] - Activity Restrictions/Additional Instructions: Your tests are consistent with your prior labs. No acute cause for your shortness of breath. Follow-up with your public transit specialist. Print Language: [place] Disposition Disposition: Home, Self Care What to do if you have Problems For any increased pain, shortness of breath, bleeding, nausea or vomiting, chestpain, or any unexpected problems, contact your Primary Care Provider. Call [facility] ([phone]) or report to the closest Emergency Room. Call 911 if necessary. 01/14/25 0207 <Electronically signed by Adam Mon MD> Cosigner Signature (if applicable): CC: Dr. Samson Ragsdale, DO ~ Signed [facility] Work Phone: 1(192) 405-683306-11-2025 NoteHNO ID: [id number] Author: KHLOE IBARRA APRN.BATTERY CONTAINER [employer] Service: ? Author Type: Nurse Practitioner Type: Progress Notes Filed: 01/09/2025 16:53 Note Text: [facility] Subjective Abraham Gage is a [...] history started 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 Mild lower leg swelling but denies that [...] GRAFT 1 VEIN 1994 CABG, single graft, Sridhar Harris CORONARY ENDARTERCOMY OPEN ANY METHOD 07/03/2013 Angioplasty Xience stent to L circumflex EGD 04/26/2017 [facility] [address]. Nolan Triana EGD 05/23/2024 EGD TRANSORAL BIOPSY SINGLE/MULTIPLE 07/10/2007 PAST SURGICAL HISTORY OF 01/26/2008 stent placement ramus and prox ramus PAST SURGICAL HISTORY OF heart stents PROSTATECTOMY PERINEAL RADICAL 1999 Prostatectomy, radical- Dr. 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 Yousif Triana; next screening colonoscopy in 10yrs, [facility] UNLISTED DIAGNOSTIC GASTROENTEROLOGY PROCEDURE 06/06/2018 ALLERGIES Atorvastatin, Crestor [Rosuvastatin Calcium], Glucosamine, Motrin [Ibuprofen], Pravastatin, and Jqhltmy-Gql-Dzx Reductase Inhibitors MEDICATIONS zinc sulfate (ZINC-15 ORAL) [...] 10 Units subcutaneously daily at bedtime. Insulin [place], Disposable, (BD ULTRA-FINE BENNY PEN NEEDLE) 32 [...] daily. potassium chloride ( (more content not included)...[facility] 01-09-2025 History of Present illness Narrative* Khloe Ibarra APRN.BATTERY CONTAINER [employer] - 01/09/2025 3:01 PM EDT [facility] Subjective Abraham Gage is a [...] history started 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 Mild lower leg swelling but denies that [...] ARTERY GRAFT 1 VEIN 1994 CABG, single graftSridhar Dr. CORONARY ENDARTERCOMY OPEN ANY METHOD 07/03/2013 Angioplasty Xience stent to L circumflex EGD 04/26/2017 [facility] [address]. Nolan Triana EGD 05/23/2024 EGD TRANSORAL BIOPSY SINGLE/MULTIPLE 07/10/2007 PAST SURGICAL HISTORY OF 01/26/2008 stent placement ramus and prox ramus PAST SURGICAL HISTORY OF heart stents PROSTATECTOMY PERINEAL RADICAL 2000 Prostatectomy, radical- Dr. 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 Yousif Triana; next screening colonoscopy in 10yrs, [facility] UNLISTED DIAGNOSTIC GASTROENTEROLOGY PROCEDURE 06/06/2018 ALLERGIES Atorvastatin, Crestor [Rosuvastatin Calcium], Glucosamine, Motrin [Ibuprofen], Pravastatin, and Owolevq-Dhz-Vns Reductase Inhibitors MEDICATIONS zinc sulfate (ZINC-15 ORAL) [...] mL) Inject 10 Units subcutaneouslydaily at bedtime. Insulin [place], Disposable, (BD ULTRA-FINE BENNY PEN NEEDLE) 32 [...] symptoms persist or worsen. - Dalia Ibarra APRN.BATTERY CONTAINER TESTER [employer] [facility] Patient well appearing nontoxic in no acute respiratory distress 84 year old male. He presents with acute sinusitis; chest xray negative for pneumonia. No concerns for acute cardiopulmonary process today, no chest pain or heaviness in clinic. Mild bilateral edema which per patient is his baseline, he did start taking lasix this am. Discussed follow up with cardiology this week ER if worseningpatient verbalized understanding and in agreement with plan. Patient discharged home. documented in this encounterUniversity [facility] History of Present illness Narrative* Jennifer Cano RT(Yousif) - 01/09/2025 2:30 PM EDT Radiology Service Progress Note PATIENT NAME: Abraham [...] PATIENT PRESENTS WITH AN IMPLANTABLE OR ATTACHED DIRECTOR TRANSLATION: No RADIOLOGY DEPARTMENT: General X-ray: Exam(s) Completed: Chest X-Ray PERIPHERAL IV DATA: Not applicable SIGNED BY: RT Woo(Yousif) January 09, 2025 2:26 PM documented in this encounterUniversity Hospitals [facility]06-11-2025 NoteHNO ID: [id number] Author: JENNIFER CANO RT(Yousif) Service: ? Author Type: Technologist Type: Progress [...] PATIENT PRESENTS WITH AN IMPLANTABLE OR ATTACHED DIRECTOR TRANSLATION: No RADIOLOGY DEPARTMENT: General X-ray: Exam(s) Completed: Chest X-Ray PERIPHERAL IV DATA: Not applicable SIGNED BY: Jennifer Cano RT(R) January 09, 2025 2:26 [facility]05-12-2025 NoteHNO ID: [id number] Author: MARY ROSS MA Service: ? Author Type: Risk Control Field Representative Type: Progress Notes Filed: 12/10/2024 13:12 Note [...] Mary Ross MA December 10, 2024 12:51 [facility]05-12-2025 History of Present illness Narrative* Mary Ross MA - 12/10/2024 12:50 PM EDT POPULATION HEALTH NAVIGATION OUTREACH Action/FYI Updated appointment [...] 10, 2024 12:51 PM documented in this encounterUniversity Hospitals [facility]05-12-2025 NotePatient Outreach (NETNAV) ABRAHAM GAGE ([id number]) 1940 M Date Time Provider Department 12/10/24 MARY ROSS During your visit today, we recorded the [...] - Other: See Comments Comments: muscle aches [id number] REDUCTASE INHIBIT*10/09/2014 14 - Other: See Comments Comments: myalgia Date Reviewed: 11/26/2024 Reviewed by: Mariaelena Culp LPN - Fully Assessed Reason for Visit: Population Health Navigation Outreach [3910] Cmt: WES VANESSAA Prescriptions as of 12/10/2024 - zinc sulfate [...] Units subcutaneously daily at bedtime. - Insulin [place], Disposable, (BD ULTRA-FINE BENNY PEN NEEDLE) 32 [...] of hemorrhage [*1 (more content not included)... [facility]04-28-2025 History of Present illness Narrative* Miya Woodson, RT(R) - 11/26/2024 3:40 PM EDT Radiology Service Progress Note PATIENT NAME: Abraham [...] PATIENT PRESENTS WITH AN IMPLANTABLE OR ATTACHED DIRECTOR TRANSLATION: No RADIOLOGY DEPARTMENT: General X-ray: Exam(s) Completed: Spine X-Ray(s): Thoracic Upper Extremity X-Ray(s): Shoulder, AP / TRUE AP / AXILLARY bilateral PERIPHERAL IV DATA: Not applicable SIGNED BY: RT Galileo(Yousif) November 26, 2024 3:32 PM documented in this encounterUniversity Hospitals Ely[facility]04-28-2025 NoteHNO ID: [id number] Author: MIYA WOODSON RT(R) Service: ? Author Type: Grader Patrol Type: Progress Notes Filed: 11/26/2024 15:48 Note [...] PATIENT PRESENTS WITH AN IMPLANTABLE OR ATTACHED DIRECTOR TRANSLATION: No RADIOLOGY DEPARTMENT: General X-ray: Exam(s) Completed: Spine X-Ray(s): Thoracic Upper Extremity X-Ray(s): Shoulder, AP / TRUE AP / AXILLARY bilateral PERIPHERAL IV DATA: Not applicable SIGNED BY: RT Galileo(Yousif) November 26, 2024 3:32 [facility]04-28-2025 NoteHNO ID: [id number] Author: THEODORA HERNANDEZ APRN.BATTERY CONTAINER [employer] Service: ? Author Type: Nurse Practitioner Type: Progress Notes Filed: 11/26/2024 15:43 Note Text: CC: Patient presents with: Pain: in right shoulder for about 6 weeks denies any injury HPI Recording using Excel[employer] software for draft documentation of the visit was discussed with the patient/authorized patient relations representative; all questions welcomed and answered. Patient/authorized patient relations representative agreed to proceed Abraham is a [...] GRAFT 1 VEIN 1994 CABG, single graft, Sridhar Harris CORONARY ENDARTERCOMY OPEN ANY METHOD 07/03/2013 Angioplasty Xience stent to L circumflex EGD 04/26/2017 [facility] [address]. Nolan Triana EGD 05/23/2024 EGD TRANSORAL BIOPSY SINGLE/MULTIPLE 07/10/2007 PAST SURGICAL HISTORY OF 01/26/2008 stent placement ramus and prox ramus PAST SURGICAL HISTORY OF heart stents PROSTATECTOMY PERINEAL RADICAL 2000 Prostatectomy, radical- Dr. 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 Yousif Triana; next screening colonoscopy in 10yrs, [facility] UNLISTED DIAGNOSTIC GASTROENTEROLOGY PROCEDURE 06/06/2018 ALLERGIES Atorvastatin, Crestor [Rosuvastatin Calcium], Glucosamine, Motrin [Ibuprofen], Pravastatin, and Pvmmgve-Cnc-Phl Reductase Inhibitors MEDICATIONS amLODIPine (NORVASC) 10 mg [...] by mouth once daily. (more content not included)...[facility]04-28-2025 History of Present illness Narrative* Theodora Hernandez, MICHI.BATTERY CONTAINER TESTER [employer] - 11/26/2024 3:29 PM EDT CC: Patient presents with: Pain: in right shoulder for about 6 weeks denies any injury HPI Recording using [employer] software for draft documentation of the visit was discussed with the patient/authorized patient relations representative; all questions welcomed and answered. Patient/authorized patient relations representative agreed to proceed Abraham is a [...] the right side or raising the arm. Henotes difficulty sleeping due to the pain and [...] denies any new neck pain. He reports chr onic tingling in the hands, which predates the shoulder pain. He denies any new musculoskeletal pain, chest pain, dyspnea, cough, fever, chills, or fatigue since the onset of shoulder pain. 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 09/2015 4.15 cm Acute gastritis without mention of hemorrhage 04/26/2017 EGD by [employer] Advance care planning 03/24/2022 [place] can help [...] GRAFT 1 VEIN 1994 CABG, single graft, Sridhar Harris CORONARY ENDARTERCOMY OPEN ANY METHOD 07/03/2013 Angioplasty Xience stent to L circumflex EGD 04/26/2017 [facility] [address]. Nolan Triana EGD 05/23/2024 EGD TRANSORAL BIOPSY SINGLE/MULTIPLE 07/10/2007 PAST SURGICAL HISTORY OF 01/26/2008 stent placement ramus and prox ramus PAST SURGICAL HISTORY OF heart stents PROSTATECTOMY PERINEAL RADICAL 2000 Prostatectomy, radical- Dr. 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 Yousif Triana; next screening colonoscopy in 10yrs, [facility] UNLISTED DIAGNOSTIC GASTROENTEROLOGY PROCEDURE 06/06/2018 ALLERGIES Atorvastatin, Crestor [Rosuvastatin Calcium], Glucosamine, Motrin [Ibuprofen], Pravastatin, and Yxrhzzt-Uzq-Bae Reductase Inhibitors MEDICATIONS amLODIPine (NORVASC) 10 mg [...] mL) Inject 10 Units subcutaneouslydaily at bedtime. diclofenac sodium (VOLTAREN) 1 % [...] 2 tabs daily for 5 days, then 1tab daily for 5 days. HYDROcodone-acetaminophen (NORCO) 5-325 mg per tablet Take 1 tablet by mouth two times a day as needed for pain for up to 7 days. blood sugar diagnostic (TRUE METRIX GLUCOSE TEST STRIP) test strip Use with blood glucose test three times a day. Insulin Dep? Yes DX E11.9 Insulin [place], Disposable, (BD ULTRA-FINE BENNY PEN NEEDLE) 32 [...] lifting reported. Physical exam reveals pain with certainshoulder movements, particularly on the right side. Differential includes musculoskeletal inflammati on or arthritis. - Ordered X-rays of the [...] Patient agreeable to treatment plan. Theodora Hernandez APRN.BATTERY CONTAINER TESTER ALUMINUM documented in this encounterUniversity Hospitals Elyria Medical Center04-28-2025 Instructions* Patient Instructions* Theodora Hernandez APRN.JAIRON - 11/26/2024 3:26 PM EDT We discussed [...] heat or ice on the affected area. Nryw-vja-ufmlmyo options like Icy Hot or Biofreeze may [...] prednisone and hydrocodone have been sent to [facility] in [place]. Please let us know if you have any questions or concerns. documented in this encounterUniversity Hospitals Elyria Medical Center03-27-2025 Telephone encounter Note * Telephone Encounter - Yeimy Arboleda LPN - 10/25/2024 4:00 PM EDT The patient has been identified by name [...] Arboleda LPN October 25, 2024 4:04 PM [facility]03-27-2025 Miscellaneous Notes* Telephone Encounter - Yeimy Arboleda LPN - 10/25/2024 4:00 PM EDT The patient has been identified by name [...] 25, 2024 4:04 PM documented in this encounterUniversity Hospitals Elyria Medical Center02-26-2025 NoteHNO ID: [id number] Author: SAMSON RAGSDALE, DO Service: ? Author [...] GRAFT 1 VEIN 1994 CABG, single graft, Sridhar Harris CORONARY ENDARTERCOMY OPEN ANY METHOD 07/03/2013 Angioplasty Xience stent to L circumflex EGD 04/26/2017 [facility] [address]. Nolan Triana EGD 05/23/2024 EGD TRANSORAL BIOPSY SINGLE/MULTIPLE 07/10/2007 PAST SURGICAL HISTORY OF 01/26/2008 stent placement ramus and prox ramus PAST SURGICAL HISTORY OF heart stents PROSTATECTOMY PERINEAL RADICAL 2000 Prostatectomy, radical- Dr. 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 Yousif Triana; next screening colonoscopy in 10yrs, [facility] UNLISTED DIAGNOSTIC GASTROENTEROLOGY PROCEDURE 06/06/2018 Social History [...] Father Heart Mother Allergies: (more content not included)...[facility]02-26-[facility] History of Present illness Narrative* Samson Ragsdale, - 09/26/2024 2:30 PM EST Patient presents with: Yearly Exam HPI: Abraham Gage is a 84 year old male who presents to the office today for review of health conditions. Concerns today: States that recently his BLOOD PRESSURE readings have been taken daily in the AM and are fluctuating, some examples are 137/72, 107/68, 134/75, 145/76. Realized that he was only taking the Carvedilolonce a day- not just started taking it [...] GRAFT 1 VEIN 1994 CABG, single graft, Sridhar Harris CORONARY ENDARTERCOMY OPEN ANY METHOD 07/03/2013 Angioplasty Xience stent to L circumflex EGD 04/26/2017 [facility] [address]. Nolan Triana EGD 05/23/2024 EGD TRANSORAL BIOPSY SINGLE/MULTIPLE 07/10/2007 PAST SURGICAL HISTORY OF 01/26/2008 stent placement ramus and prox ramus PAST SURGICAL HISTORY OF heart stents PROSTATECTOMY PERINEAL RADICAL 1999 Prostatectomy, radical- Dr. 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 Yousif Triana; next screening colonoscopy in 10yrs, [facility] UNLISTED DIAGNOSTIC GASTROENTEROLOGY PROCEDURE 06/06/2018 Social History [...] Rash Pravastatin Other: See Comments muscle aches Aaehzxv-Ghl-Hlu Red* Other: See Comments myalgia Current Meds: [...] mL) Inject 10 Units subcutaneouslydaily at bedtime. carvedilol (COREG) 25 mg tablet [...] DM - Uncontrolled, E11.65 Insulin: Yes Insulin [place], Disposable, (BD ULTRA-FINE BENNY PEN NEEDLE) 32 [...] disease, with long-term current use of insulin ([facility]) - ICD9: 250.40, 585.4, V58.67, ICD10: E11.22, [...] kidney disease) stage 4, GFR 15-29 ml/min ([facility]) - ICD9: 585.4, ICD10: N18.4 - eGFR: [...] 274.9, ICD10: M10.9 Stable. 9. Atherosclerosis of [place]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[place] heart with angina pectoris (HCC) - ICD9: [...] agreed with the plan. Samson Ragsdale DO [address] [place] [address] documented in this encounterUniversity Hospitals Elyria Medical Center02-17-2025 Telephone encounter Note * Telephone Encounter - Desirae Irving APRN.[facility] - 09/17/2024 2:05 PM EST Labs placed this morning. Already in process. Desirae Irving APRN.CNP [facility] Work Phone: 1(707) 202-299102-17-2025 Miscellaneous Notes* Telephone Encounter - Desirae Irving APRN.CNP - 09/17/2024 2:05 PM EST Labs placed this morning. Already in process. Desirae Irving APRN.BATTERY CONTAINER TESTER ALUMINUM * Telephone Encounter - Sirena Martinez - 09/17/2024 10:39 AM EST Patient is wanting to come in to today for routine lab work for upcoming wellness exam with PCP on 09/26/24. Please notify patient when orders are available in chart. documented in this encounterUniversity Hospitals Elyria Medical Center02-17-2025 History of Present illness Narrative* Desirae Irving APRN.CNP - 09/17/2024 12:59 PM EST Lab work placed. Thank you, Desirae Irving APRN.BATTERY CONTAINER TESTER ALUMINUM documented in this encounterUniversity Hospitals Elyria Medical Center02-17-2025 NoteHNO ID: [id number] Author: DESIRAE IRVING APRN.CNP Service: ? Author Type: Nurse Practitioner Type: Progress Notes Filed: 09/17/2024 13:00 Note Text: Lab work placed. Thank you, Desirae Irving APRN.CNPFlower Hospital02-17-2025 Telephone encounter Note* Telephone Encounter - Sirena Martinez - 09/17/2024 10:39 AM EST Patient is wanting to come in to today for routine lab work for upcoming wellness exam with PCP on 09/26/24. Please notify patient when orders are available in chart. [facility]11-08-2024 Telephone encounter Note* Telephone Encounter - Komal Rich RN - 06/08/2024 2:53 PM EST Patient notified prescription sent to the [facility] in [place]. Komal Rich RN June 08, 2024 2:54 PM [facility]11-08-2024 Miscellaneous Notes* Telephone Encounter - Komal Rich RN - 06/08/2024 2:53 PM EST Patient notified prescription sent to the MD in [place]. Komal Rich RN June 08, 2024 2:54 PM * Telephone Encounter - Cristela Andersen APRN.CNP - 06/08/2024 2:31 PM EST 3mg capsules sent to [facility] in [place]. Please call Abraham & let him know. Thank you, Cirstela Andersen APRN.BATTERY CONTAINER TESTER ALUMINUM * Telephone Encounter - Olga Cobb RN - 06/08/2024 11:42 AM EST [facility] Olga Cobb RN documented in this encounterUniversity Hospitals Elyria Medical Center11-08-2024 Telephone encounter Note * Telephone Encounter - Cristela Andersen APRN.CNP - 06/08/2024 2:31 PM EST 3mg capsules sent to [facility] in [place]. Please call Abraham & let him know. Thank you, Cristela Andersen APRN.CNP [facility]11-08-2024 Telephone encounter Note* Telephone Encounter - Olga Cobb RN - 06/08/2024 11:42 AM EST [facility] and it will be $11 a month. Patient is asking if a script for the [facility]mg dose [facility] Patient aware that he will have to take 3 tabs. Patient also asking for a call back to notify him that the script is sent. Olga Cobb RN [facility]10-31-2024 History of Present illness Narrative* Cristela Andersen APRN.CNP - 05/31/2024 2:00 PM EDT FOLLOW UP VISIT - ENDOSCOPY Abraham Gage 1940 [id number] REFERRING PHYSICIAN: No referring provider defined for this encounter. Abraham Gage is a patient I am following for chronic diarrhea, nausea, and heartburn. Dr. Mendozaperformed upper & lower endoscopy on 05/23/24. The [...] with the patient, and the patient has hadthe opportunity to ask questions and have questions [...] improvement. Cristela Andersen APRN.JAIRON documented in this encounterUniversity Hospitals Elyria Medical Center10-31-2024 NoteHNO ID: [id number] Author: CRISTELA ANDERSEN APRN.CNP Service: ? Author Type: Nurse Practitioner Type: Progress Notes Filed: 05/31/2024 14:38 Note Text: FOLLOW UP VISIT - ENDOSCOPY Abraham Gage 1940 [id number] REFERRING PHYSICIAN: No referring provider defined for [...] as needed for worsening/no improvement. Cristela Andersen APRN.[facility]10-30-2024 Telephone encounter Note* Telephone Encounter - Sivan Ross - 05/30/2024 12:52 PM EDT Patient notified and scheduled for an EGD & colon follow up from 05-23 Sivan Ross [facility] Work Phone: 1(401) 110-600910-30-2024 Miscellaneous Notes* Telephone Encounter - Sivan Ross - 05/30/2024 12:52 PM EDT Patient notified and scheduled for an EGD & colon follow up from 05-23 Sivan Ross * Telephone Encounter - Cristela Andersen APRN.CNP - 05/30/2024 9:56 AM EDT Can you please call Abraham to let him know he needs a visit to go over his colonoscopy/EGD results. Can be in person or virtual. Thank you, Cristela Andersen APRN.CNP documented in this encounterUniversity Hospitals Elyria Medical Center10-30-2024 Telephone encounter Note * Telephone Encounter - Cristela Andersen APRN.CNP - 05/30/2024 9:56 AM EDT Can you please call Abraham to let him know he needs a visit to go over his colonoscopy/EGD results. Can be in person or virtual. Thank you, Cristela Andersen APRN.CNP [facility] Work Phone: 1(752) 917-924310-23-2024 Attending History and physical note* Malu Mendoza MD - 05/23/2024 2:15 PM EDT UPDATED HISTORY AND PHYSICAL EXAMINATION SERVICE DATE: 05/23/2024 SERVICE TIME: 13:33 SENSITIVE EXAMINATION CONSENT: The sensitive examination was discussed with the Patient or Patient's Authorized Field Services Analyst. Asapplicable, any other physician, advance practice provider, medical student, or other health professional student that will be observing or involved in the sensitive examination for educational or training purposes was discussed with the Patient or Authorized Field Services Analyst. The Patient or Authorized Field Services Analyst has agreed to proceed with the sensitive examination. (Sensitive examination includes inspection and/or palpation of the breasts, pelvis, prostate and anorectal regions) PHYSICAL EXAM MUST BE COMPLETED ON ADMISSION The History and Physical (completed in the past 30 days) has been reviewed and the patient has beenexamined. The contents accurately reflect the patient's condition [...] : 1940 REFERRING PHYSICIAN: Samson Ragsdale [address] [facility] [address] CHIEF COMPLAINT: Patient presents with: Consult: Colonoscopy [...] 2022 EF of 53%. Abraham follows with [place] [facility] had elective cath 06/2023 due to positive stress test. 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 Currently takes plavix. Follows with Dr. Petersen at [place]. Last OV 07/2023 Abraham has a hx of Alzheimers dementia Abraham has undergone prior endoscopy. Last EGD &colonoscopy 04/2017 with At [facility] for anemia Impression: -Findings suggest upper gastritis [...] mL) Inject 10 Units subcutaneouslydaily at bedtime. losartan (COZAAR) 50 mg tablet [...] - Uncontrolled, E11.65 Insulin: Yes CRANBERRY Insulin [place], Disposable, (BD ULTRA-FINE BENNY PEN NEEDLE) 32 [...] [Rosuvastatin Calcium], Glucosamine, Motrin [Ibuprofen], Pravastatin, and Dlicqnb-Fav-Qgh Reductase Inhibitors PAST MEDICAL HISTORY 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 09/2015 4.15 cm Acute gastritis without mention of hemorrhage 04/26/2017 EGD by [employer] Advance care planning 03/24/2022 angelo Matamoros can [...] GRAFT 1 VEIN 1994 CABG, single graft, Sridhar Harris CORONARY ENDARTERCOMY OPEN ANY METHOD 07/03/2013 Angioplasty Xience stent to L circumflex EGD 04/26/2017 [facility] [address]. Nolan Triana EGD TRANSORAL BIOPSY SINGLE/MULTIPLE 07/10/07 PAST SURGICAL HISTORY OF 01/26/08 stent placement ramus and prox ramus PAST SURGICAL HISTORY OF heart stents PROSTATECTOMY PERINEAL RADICAL 2000 Prostatectomy, radical- Dr. Ojead RPR 1ST INGUN HRNA AGE 6 YRS/> REDUCIBLE left Hernia repair, inguinal SCREENING COLONSCOPY NOT HIGH RISK 04/26/2017 Dr. Yousif Triana; next screening colonoscopy in 10yrs, [facility] UNLISTED DIAGNOSTIC GASTROENTEROLOGY PROCEDURE 06/06/2018 FAMILY HISTORY [...] entered by the nurse and reviewed by ri Nursing Notes: Sabina Cisneros RN 04/13/2024 3:37 [...] are equally round, sclera are anicteric, mucous membranesare moist, oropharynx is clear. Neck has no [...] wishes. I have explained that with IV conscioussedation there is no anesthesia provider available and [...] edited and updated as necessary. Cristela Andersen APRN.BATTERY CONTAINER TESTER ALUMINUM [facility] Work Phone: 1([phone]) 401-910410-23-2024 History and physical note* Malu Mendoza MD - 05/23/2024 2:15 PM EDT HISTORY AND PHYSICAL Abraham Gage : 1940 REFERRING PHYSICIAN: Samson Ragsdale [address] [facility] [address] CHIEF COMPLAINT: Patient presents with: Consult: Colonoscopy HPI: Abraham is a 83 year old male referred for endoscopy. Abraham notes diarrhea x 6 months & decreased appetite. PCP Abraham denies abdominal pain.. Abrhaam notes diarrhea x 6 mos. Watery? +fluctuance [...] 2022 EF of 53%. Abraham follows with [place] [facility] had elective cath 06/2023 due to positive stress test. 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 Currently takes plavix. Follows with Dr. Petersen at [place]. Last OV 07/2023 Abraham has a hx of Alzheimers dementia Abraham has undergone prior endoscopy. Last EGD &colonoscopy 04/2017 with At [facility] for anemia Impression: -Findings suggest upper gastritis [...] mL) Inject 10 Units subcutaneouslydaily at bedtime. losartan (COZAAR) 50 mg tablet [...] - Uncontrolled, E11.65 Insulin: Yes CRANBERRY Insulin [place], Disposable, (BD ULTRA-FINE BENNY PEN NEEDLE) 32 [...] [Rosuvastatin Calcium], Glucosamine, Motrin [Ibuprofen], Pravastatin, and Nbgkkrh-Dcc-Hic Reductase Inhibitors PAST MEDICAL HISTORY PAST MEDICAL [...] GRAFT 1 VEIN 1994 CABG, single graft, Sridhar Harris CORONARY ENDARTERCOMY OPEN ANY METHOD 07/03/2013 Angioplasty Xience stent to L circumflex EGD 04/26/2017 [facility] [address] Nolan Triana EGD TRANSORAL BIOPSY SINGLE/MULTIPLE 07/10/07 PAST SURGICAL HISTORY OF 01/26/08 stent placement ramus and prox ramus PAST SURGICAL HISTORY OF heart stents PROSTATECTOMY PERINEAL RADICAL 1999 Prostatectomy, radical- Dr. 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 Yousif Triana; next screening colonoscopy in 10yrs, [facility] UNLISTED DIAGNOSTIC GASTROENTEROLOGY PROCEDURE 06/06/2018 FAMILY HISTORY [...] are equally round, sclera are anicteric, mucous membranesare moist, oropharynx is clear. Neck has no [...] wishes. I have explained that with IV conscioussedation there is no anesthesia provider available and [...] edited and updated as necessary. Cristela Andersen APRN.BATTERY CONTAINER TESTER ALUMINUM [facility]10-23-2024 History and physical note* Malu Mendoza MD - 05/23/2024 2:15 PM EDT UPDATED HISTORY AND PHYSICAL EXAMINATION SERVICE DATE: 05/23/2024 SERVICE TIME: 13:33 SENSITIVE EXAMINATION CONSENT: The sensitive examination was discussed with the Patient or Patient's Authorized Field Services Analyst. Asapplicable, any other physician, advance practice provider, medical student, or other health professional student that will be observing or involved in the sensitive examination for educational or training purposes was discussed with the Patient or Authorized Field Services Analyst. The Patient or Authorized Field Services Analyst has agreed to proceed with the sensitive examination. (Sensitive examination includes inspection and/or palpation of the breasts, pelvis, prostate and anorectal regions) PHYSICAL EXAM MUST BE COMPLETED ON ADMISSION The History and Physical (completed in the past 30 days) has been reviewed and the patient has beenexamined. The contents accurately reflect the patient's condition [...] : 1940 REFERRING PHYSICIAN: Samson Ragsdale [address] [facility] [address] CHIEF COMPLAINT: Patient presents with: Consult: Colonoscopy [...] 2022 EF of 53%. Abraham follows with [place] [facility] had elective cath 06/2023 due to positive stress test. 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 Currently takes plavix. Follows with Dr. Petersen at [place]. Last OV 07/2023 Abraham has a hx of Alzheimers dementia Abraham has undergone prior endoscopy. Last EGD &colonoscopy 04/2017 with At [facility] for anemia Impression: -Findings suggest upper gastritis [...] mL) Inject 10 Units subcutaneouslydaily at bedtime. losartan (COZAAR) 50 mg tablet [...] - Uncontrolled, E11.65 Insulin: Yes CRANBERRY Insulin [place], Disposable, (BD ULTRA-FINE BENNY PEN NEEDLE) 32 [...] [Rosuvastatin Calcium], Glucosamine, Motrin [Ibuprofen], Pravastatin, and Phdeuvu-Zhk-Yks Reductase Inhibitors PAST MEDICAL HISTORY 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 09/2015 4.15 cm Acute gastritis without mention of hemorrhage 04/26/2017 EGD by [employer] Advance care planning 03/24/2022 angelo Matamoros can [...] GRAFT 1 VEIN 1994 CABG, single graft, Sridhar Harris CORONARY ENDARTERCOMY OPEN ANY METHOD 07/03/2013 Angioplasty Xience stent to L circumflex EGD 04/26/2017 [facility] [address] Nolan Triana EGD TRANSORAL BIOPSY SINGLE/MULTIPLE 07/10/07 PAST SURGICAL HISTORY OF 01/26/08 stent placement ramus and prox ramus PAST SURGICAL HISTORY OF heart stents PROSTATECTOMY PERINEAL RADICAL 2000 Prostatectomy, radical- Dr. 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 Yousif Triana; next screening colonoscopy in 10yrs, [facility] UNLISTED DIAGNOSTIC GASTROENTEROLOGY PROCEDURE 06/06/2018 FAMILY HISTORY [...] entered by the nurse and reviewed by ri Nursing Notes: Sabina Cisneros RN 04/13/2024 3:37 [...] are equally round, sclera are anicteric, mucous membranesare moist, oropharynx is clear. Neck has no [...] wishes. I have explained that with IV conscioussedation there is no anesthesia provider available and [...] edited and updated as necessary. Cristela Andersen APRN.BATTERY CONTAINER TESTER ALUMINUM * Malu Mendoza MD - 05/23/2024 2:15 PM EDT HISTORY AND PHYSICAL Abraham Gage : 1940 REFERRING PHYSICIAN: Samson Ragsdale [address] [facility] [address] CHIEF COMPLAINT: Patient presents with: Consult: Colonoscopy HPI: Abraham is a 83 year old male referred for endoscopy. Abraham notes diarrhea x 6 months & decreased appetite. PCP Abraham denies abdominal pain.. Abraham notes diarrhea x 6 mos. Watery? +fluctuance Abraham denies constipation. Abraham notes a change in bowel habits. Abraham denies melena. Abraham denies bright red blood per rectum. Abraham notes hemorrhoids. Abrahma notes heartburn- using Tums in excess. Abraham denies dysphagia. Abraham denies a history of ulcers/ peptic ulcer disease. +intermittent nausea Denies family history of colon issues. Abraham has a hx of CAD with stents from 2007. Last stress test 2022 EF of 53%. Abraham follows with [place] [facility] had elective cath 06/2023 due to positive stress test. 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 Currently takes plavix. Follows with Dr. Petersen at [place]. Last OV 07/2023 Abraham has a hx of Alzheimers dementia Abraham has undergone prior endoscopy. Last EGD &colonoscopy 04/2017 with At [facility] for anemia Impression: -Findings suggest upper gastritis [...] mL) Inject 10 Units subcutaneouslydaily at bedtime. losartan (COZAAR) 50 mg tablet [...] - Uncontrolled, E11.65 Insulin: Yes CRANBERRY Insulin [place], Disposable, (BD ULTRA-FINE BENNY PEN NEEDLE) 32 [...] [Rosuvastatin Calcium], Glucosamine, Motrin [Ibuprofen], Pravastatin, and Wbufqjr-Gfv-Heu Reductase Inhibitors PAST MEDICAL HISTORY PAST MEDICAL [...] GRAFT 1 VEIN 1994 CABG, single graft, Sridhar Harris CORONARY ENDARTERCOMY OPEN ANY METHOD 07/03/2013 Angioplasty Xience stent to L circumflex EGD 04/26/2017 [facility] [address] Nolan Triana EGD TRANSORAL BIOPSY SINGLE/MULTIPLE 07/10/07 PAST SURGICAL HISTORY OF 01/26/08 stent placement ramus and prox ramus PAST SURGICAL HISTORY OF heart stents PROSTATECTOMY PERINEAL RADICAL 2000 Prostatectomy, radical- Dr. 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 Yousif Triana; next screening colonoscopy in 10yrs, [facility] UNLISTED DIAGNOSTIC GASTROENTEROLOGY PROCEDURE 06/06/2018 FAMILY HISTORY [...] entered by the nurse and reviewed by ri Nursing Notes: Sabina Cisneros RN 04/13/2024 3:37 [...] are equally round, sclera are anicteric, mucous membranesare moist, oropharynx is clear. Neck has no [...] wishes. I have explained that with IV conscioussedation there is no anesthesia provider available and [...] edited and updated as necessary. Cristela Andersen APRN.BATTERY CONTAINER TESTER ALUMINUM documented in this encounterUniversity Hospitals Elyria Medical Center10-09-2024 Instructions* Patient Instructions* Obdulia Lauren APRN.BATTERY CONTAINER TESTER ALUMINUM - 05/09/2024 1:53 PM EDT Images from the original note were not included. [facility] PATIENT PREOPERATIVE INSTRUCTIONS Malu Mendoza MD has scheduled you for your procedure at this surgery center: [facility]: [phone] -- [address] [address]. Please read below carefully for your personalized [...] diagnostic (BLOOD GLUCOSE TEST) test strip Insulin [place], Disposable, (BD ULTRA-FINE BENNY PEN NEEDLE) 32 [...] Procedures: - YOU MUST HAVE A RESPONSIBLE UMBRELLA FINISHER TAKE YOU HOME. A MARBLE WORKER OR RAG SORTER [employer] CUTTER CANNOT BE MADE A RESPONSIBLE UMBRELLA FINISHER. - We recommend that a responsible person stays with you overnight to take care of you. - You cannot stay in a hotel alone after outpatient surgery. You will not be permitted to have yoursurgery, if you do not have someone to [...] Advance Directive, please fax a copy to [phone] or email to for it to be added to your chart. If you do not have an Advance Directive, you can find the appropriate form and more information at [email or web address]. We recommend that youcomplete the Advance Directive form found on the website and bring it with you the day of your surgery. It can be witnessed and scanned into your chart that day. Obdulia Lauren APRN.CNP documented in this encounterUniversity Hospitals Elyria Medical Center10-09-2024 History and physical note * Obdulia Lauren APRN.CNP - 05/09/2024 1:46 PM EDT Images from the original note [...] aneurysm measuring 4.3cm at mid. 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 Following [facility] routinely. Last OV scanned into [facility]2023 and AC instructions and clearance scanned into [facility] as well 04/16/2024 Complete atrioventricular block (HCC) Assessment: per PCP note 09/2023 this is stable, but no mention in public transit specialist notes of this. Pt has no h/o [...] 4 chronic kidney disease, with long-term current useof insulin (HCC) Assessment: IDDM Hemoglobin A1C (%) [...] have a large neck STOP-Bang Score: 3 [id number] Score: Age: >=75 Sex: male CHF history: No Hypertension history: Yes Stroke/TIA/thromboembolism history: No Vascular disease history: Yes Diabetes history: Yes [id number] Score: 5 ARISCAT Score: Age: >80 Preoperative [...] Myers present: no Lip Bite Test: I Microretrognathia/Micronagthia/Recessed Chin: No DENTAL Dental findings: teeth intact. [...] 2022 EF of 53%. Abraham follows with [place] [facility] had elective cath 06/2023 due to positive stress test. 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 Currently takes plavix. Follows with Dr. Petersen at [place]. Last OV 07/2023 Abraham has a hx of Alzheimers dementia Abraham has undergone prior endoscopy. Last EGD &colonoscopy 04/2017 with At [facility] for anemia Impression: -Findings suggest upper gastritis clopidogrel and aspirin and potassium supplements -Left-sided diverticulosis but no evidence of diverticular bleed -Internal hemorrhoid no evidence of bleeding Small Bowel Capsule 06/2018 IMPRESSION: Duodenal and ileal bleeding REVIEW OF SYSTEMS: General: No weight loss, malaise or fevers. Neurological: No history of TIA's, stroke, CITY DISTRIBUTION CLERK tumor, impaired sensorium, hemiplegia, paraplegia orquadraplegia. No neurological symptoms or problems. Respiratory: +former smoker. No history of current cough or dyspnea, or pneumonia in the past 6 weeks. No history of respiratory/pulmonary symptoms or problems. Cardiovascular: Positive for: abdominal aortic aneurysm (under surveillance), anticoagulation therapy, CAD, hyperlipidemia (statin intolerant), hypertension and open heart surgery Patient's last office visit with public transit specialistSridhar, The following tests and/or procedures were performed: cardiac stents. Negative for: AICD/PPM, angina, arrhythmia, atrial fibrillation, chest pain, CHF, congenital heart defect, DVT/PE, recent TN, murmur/valvular heart disease, PTCA and valve surgery. [...] least 4 units within 72 hours prior tosurgery. Oncology: +prostate cancer s/p prostatectomy Psych: No [...] GRAFT 1 VEIN 1994 CABG, single graft, Sridhar Harris CORONARY ENDARTERCOMY OPEN ANY METHOD 07/03/2013 Angioplasty Xience stent to L circumflex EGD 04/26/2017 [facility] [address] Nolan Triana EGD TRANSORAL BIOPSY SINGLE/MULTIPLE 07/10/07 PAST SURGICAL HISTORY OF 01/26/08 stent placement ramus and prox ramus PAST SURGICAL HISTORY OF heart stents PROSTATECTOMY PERINEAL RADICAL 1999 Prostatectomy, radical- Dr. 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 Yousif Triana; next screening colonoscopy in 10yrs, [facility] UNLISTED DIAGNOSTIC GASTROENTEROLOGY PROCEDURE 06/06/2018 FAMILY HISTORY [...] mL) Inject 10 Units subcutaneouslydaily at bedtime. Taking Yes losartan (COZAAR) 50 [...] Uncontrolled, E11.65 Insulin: Yes Taking Yes Insulin [place], Disposable, (BD ULTRA-FINE BENNY PEN NEEDLE) 32 [...] Rash Pravastatin Other: See Comments muscle aches Dugvwgn-Soh-Nkp Red* Other: See Comments myalgia Objective PHYSICAL [...] 8760 hour(s)). Recent Results (from the past 41618 hour(s)) ECHO Collection Time: 03/25/23 1:42 PM [...] 09, 2024 TIME: 1:46 PM PAGER/CONTACT #: [facility]10-09-[facility]24 History and physical note* Obdulia Lauren APRN.CNP - 05/09/2024 1:46 PM EDT Images from the original note were not included. [facility] HISTORY AND PHYSICAL EXAMINATION SERVICE DATE: 05/09/2024 SERVICE TIME: 10:29 AM PRIMARY CARE PHYSICIAN: Samson Ragsdale, Assessment Patient has the following medical conditions which may affect kendra-operative course: Peripheral neuropathy Assessment: 2/2 DM, no tx Abdominal aortic aneurysm (AAA) without rupture (HCC) Assessment: under surveillance 10/04/2023 abd aorta US AORTA Abdominal aortic aneurysm measuring 4.3cm at mid. 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 [facility]. Last OV scanned into [facility]2023 and AC instructions and clearance scanned into [facility] as well 04/16/2024 Complete atrioventricular block (HCC) Assessment: per PCP note 09/2023 this is stable, but no mention in public transit specialist notes of this. Pt has no h/o [...] 4 chronic kidney disease, with long-term current useof insulin (HCC) Assessment: IDDM Hemoglobin A1C (%) [...] have a large neck STOP-Bang Score: 3 [id number] Score: Age: >=75 Sex: male CHF history: No Hypertension history: Yes Stroke/TIA/thromboembolism history: No Vascular disease history: Yes Diabetes history: Yes [id number] Score: 5 ARISCAT Score: Age: >80 Preoperative [...] Myers present: no Lip Bite Test: I Microretrognathia/Micronagthia/Recessed Chin: No DENTAL Dental findings: teeth intact. [...] COVID-19 Immunization Status Overdue - Covid-19 Vaccine ( season) Overdue since 04/01/2024 09/26/2023 Postponed until 09/26/2024 [...] 2022 EF of 53%. Abraham follows with [place] [facility] had elective cath 06/2023 due to positive stress test. 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 Currently takes plavix. Follows with Dr. Petersen at [place]. Last OV 07/2023 Abraham has a hx of Alzheimers dementia Abraham has undergone prior endoscopy. Last EGD &colonoscopy 04/2017 with At [facility] for anemia Impression: -Findings suggest upper gastritis clopidogrel and aspirin and potassium supplements -Left-sided diverticulosis but no evidence of diverticular bleed -Internal hemorrhoid no evidence of bleeding Small Bowel Capsule 06/2018 IMPRESSION: Duodenal and ileal bleeding REVIEW OF SYSTEMS: General: No weight loss, malaise or fevers. Neurological: No history of TIA's, stroke, CITY DISTRIBUTION CLERK tumor, impaired sensorium, hemiplegia, paraplegia orquadraplegia. No neurological symptoms or problems. Respiratory: +former smoker. No history of current cough or dyspnea, or pneumonia in the past 6 weeks. No history of respiratory/pulmonary symptoms or problems. Cardiovascular: Positive for: abdominal aortic aneurysm (under surveillance), anticoagulation therapy, CAD, hyperlipidemia (statin intolerant), hypertension and open heart surgery Patient's last office visit with public transit specialist, Sridhar, The following tests and/or procedures were performed: cardiac stents. Negative for: AICD/PPM, angina, arrhythmia, atrial fibrillation, chest pain, CHF, congenital heart defect, DVT/PE, recent TN, murmur/valvular heart disease, PTCA and valve surgery. [...] least 4 units within 72 hours prior tosurgery. Oncology: +prostate cancer s/p prostatectomy Psych: No history of psychiatric symptoms or problems. Musculoskeletal: +gout, on rx Positive for: back pain. Skin: +psoriasis, rx as needed 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 09/2015 4.15 cm Acute gastritis without mention of hemorrhage 04/26/2017 EGD by Providajob Advance care planning 03/24/2022 angelo Matamoros can help with medical decision making AMI (acute myocardial infarction) (HCC) 07/03/2013 Carotid atherosclerosis 05/2014 CKD stage G3b/A2, GFR 30-44 and albumin creatinine ratio 30-299 mg/g (HCC) AVOID NEPHROTOXIC MEDICATIONS Diabetes mellitus type 2, uncontrolled, without complications Diaphragmatic hernia without mention of obstruction or gangrene Diverticulosis of colon (without mention of hemorrhage) 04/26/2017 colonoscopy by Providajob Esophagitis Generalized osteoarthrosis, unspecified site Internal hemorrhoid 04/26/2017 colonoscopy by Providajob Iron deficiency anemia Malignant neoplasm of prostate (HCC) Other and unspecified hyperlipidemia Unspecified cardiovascular disease 1994 CABG Unspecified constipation 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 Nolan Triana EGD TRANSORAL BIOPSY SINGLE/MULTIPLE 07/10/07 PAST SURGICAL HISTORY OF 01/26/08 stent placement ramus and prox ramus PAST SURGICAL HISTORY OF heart stents PROSTATECTOMY PERINEAL RADICAL 2000 Prostatectomy, radical- Dr. 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 Yousif Triana; next screening colonoscopy in 10yrs, [facility] UNLISTED DIAGNOSTIC GASTROENTEROLOGY PROCEDURE 06/06/2018 FAMILY HISTORY [...] mL) Inject 10 Units subcutaneouslydaily at bedtime. Taking Yes losartan (COZAAR) 50 [...] Uncontrolled, E11.65 Insulin: Yes Taking Yes Insulin [place], Disposable, (BD ULTRA-FINE BENNY PEN NEEDLE) 32 [...] Rash Pravastatin Other: See Comments muscle aches Recedwp-Fsg-Lzy Red* Other: See Comments myalgia Objective PHYSICAL [...] 8760 hour(s)). Recent Results (from the past 90749 hour(s)) ECHO Collection Time: 03/25/23 1:42 PM [...] 1:46 PM PAGER/CONTACT #: documented in this encounterUniversity Hospitals Ely[facility] Center09-27-2024 Telephone encounter Note * Telephone Encounter - Obdulia Khan LPN - 04/27/2024 2:08 PM EDT Prescription Refill Information The patient has been [...] Khan LPN April 27, 2024 2:09 PM [facility]09-27-2024 Miscellaneous Notes* Telephone Encounter - Obdulia Khan LPN - 04/27/2024 2:08 PM EDT Prescription Refill Information The patient has been [...] 27, 2024 2:09 PM documented in this encounterUniversity Hospitals Elyria Medical Center09-24-2024 Telephone encounter Note * Telephone Encounter - Jaja Marshall - 04/24/2024 8:19 AM EDT Cardiac clearance received. Patient cleared to proceed and should HOLD Plavix 7 days prior to scopes. Per Dr. Palomo Petersen recommends patient to remain on ASA 81 mg uninterrupted. See scanned doc (also attached to encounter) Jaja Marshall E M Assembler [facility]09-24-2024 Miscellaneous Notes* Telephone Encounter - Jaja Marshall - 04/24/2024 8:19 AM EDT Cardiac clearance received. Patient cleared to proceed and should HOLD Plavix 7 days prior to scopes. Per Dr. Palomo Petersen recommends patient to remain on ASA 81 mg uninterrupted. See scanned doc (also attached to encounter) Jaja Marshall E M Assembler * Telephone Encounter - Jaja Marshall - 04/16/2024 11:31 AM EDT Per Cristela Andersen patient to seek cardiac clearance prior to proceeding with scopes on 05/23/2024with Dr. Reji Whalen Patient follows Sridhar Petersen. Clearance form faxed to their office at [phone] (see scanned doc for fax confirmation) Patient aware of all steps needed to be completed prior to proceeding and voiced understanding Jaja Marshall E M Assembler documented in this encounterUniversity Hospitals Elyria Medical Center09-16-2024 Telephone encounter Note * Telephone Encounter - Jaja Marshall - 04/16/2024 11:31 AM EDT Per Cristela Andersen patient to seek cardiac clearance prior to proceeding with scopes on 05/23/2024with Dr. Reji clinton [place] Patient follows Sridhar clinton [place] Petersen. Clearance form faxed to their office at [phone] (see scanned doc for fax confirmation) Patient aware of all steps needed to be completed prior to proceeding and voiced understanding Jaja Marshall E M Assembler [facility]09-13-2024 Nurse Note* Sabina Cisneros RN - 04/13/2024 3:36 PM EDT Patient was given verbal and written instructions regarding bowel prep. He was instructed to call the office if he has any further questions. He verbalized understanding. [facility]09-13-2024 Nurse Note* Sabina Cisneros RN - 04/13/2024 3:36 PM EDT Patient was given verbal and written instructions regarding bowel prep. He was instructed to call the office if he has any further questions. He verbalized understanding. documented in this encounterUniversity Hospitals Elyria Medical Center09-13-2024 History of Present illness Narrative* Cristela Andersen APRN.JAIRON - 04/13/2024 2:15 PM EDT HISTORY AND PHYSICAL Abraham Gage : 1940 REFERRING PHYSICIAN: Samson Ragsdale [address] [facility] [address] CHIEF COMPLAINT: Patient presents with: Consult: Colonoscopy [...] nausea Denies family history of colon issues. Abarham has a hx of CAD with stents from 2007. Last stress test 2022 EF of 53%. Abraham follows with [place] [facility] had elective cath 06/2023 due to positive stress test. 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 Currently takes plavix. Follows with Dr. Petersen at [place]. Last OV 07/2023 Abraham has a hx of Alzheimers dementia Abraham has undergone prior endoscopy. Last EGD &colonoscopy 04/2017 with At [facility] for anemia Impression: -Findings suggest upper gastritis [...] mL) Inject 10 Units subcutaneouslydaily at bedtime. losartan (COZAAR) 50 mg tablet [...] - Uncontrolled, E11.65 Insulin: Yes CRANBERRY Insulin [place], Disposable, (BD ULTRA-FINE BENNY PEN NEEDLE) 32 [...] [Rosuvastatin Calcium], Glucosamine, Motrin [Ibuprofen], Pravastatin, and Iwmvpip-Afm-Hlm Reductase Inhibitors PAST MEDICAL HISTORY Diagnosis Date [...] GRAFT 1 VEIN 1994 CABG, single graft, Sridhar Harris CORONARY ENDARTERCOMY OPEN ANY METHOD 07/03/2013 Angioplasty Xience stent to L circumflex EGD 04/26/2017 [facility] [address]. Nolan Triana EGD TRANSORAL BIOPSY SINGLE/MULTIPLE 07/10/07 PAST SURGICAL HISTORY OF 01/26/08 stent placement ramus and prox ramus PAST SURGICAL HISTORY OF heart stents PROSTATECTOMY PERINEAL RADICAL 1999 Prostatectomy, radical- Dr. 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 Yousif Triana; next screening colonoscopy in 10yrs, [facility] UNLISTED DIAGNOSTIC GASTROENTEROLOGY PROCEDURE 06/06/2018 FAMILY HISTORY [...] are equally round, sclera are anicteric, mucous membranesare moist, oropharynx is clear. Neck has no [...] wishes. I have explained that with IV conscioussedation there is no anesthesia provider available and [...] edited and updated as necessary. Cristela Andersen APRN.BATTERY CONTAINER TESTER ALUMINUM documented in this encounterUniversity Hospitals Elyria Medical Center09-13-2024 NoteHNO ID: [id number] Author: CRISTELA ANDERSEN APRN.JAIRON Service: ? Author Type: Nurse Practitioner Type: Progress Notes Filed: 04/16/2024 08:24 Note Text: HISTORY AND PHYSICAL Abraham Gage : 1940 REFERRING PHYSICIAN: Samson Ragsdale [address] [facility] [place] [address] CHIEF COMPLAINT: Patient presents with: Consult: Colonoscopy [...] 2022 EF of 53%. Abraham follows with [place] [facility] had elective cath 06/2023 due to positive stress test. 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 Currently takes plavix. Follows with Dr. Petersen at [place]. Last OV 07/2023 Abraham has a hx of Alzheimers dementia Abraham has undergone prior endoscopy. Last EGD ANDcolonoscopy 04/2017 with At [facility] for anemia Impression: -Findings suggest upper gastritis [...] - Uncontrolled, E11.65 Insulin: Yes CRANBERRY Insulin [place], Disposable, (BD ULTRA-FINE BENNY PEN NEEDLE) 32 [...] [Rosuvastatin Calcium], Glucosamine, Motrin [Ibuprofen], Pravastatin, and Dmspuhh-Yqy-Xwu Reductase Inhibitors 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 09/2015 4.15 cm Acute gastritis without mention of hemorrhage 04/26/2017 EGD by Kong (more content not included)...[facility]09-12-2024 Telephone encounter Note* Telephone Encounter - Lorraine Saravia RN - 04/12/2024 12:55 PM EDT Patient calling regarding lab result related question. Information provided. Lorraine Saravia RN [facility]09-12-2024 Miscellaneous Notes* Telephone Encounter - Lorraine Saravia RN - 04/12/2024 12:55 PM EDT Patient calling regarding lab result related question. Information provided. Lorraine Wurst, RN documented in this encounterUniversity Hospitals Elyria [facility] Center09-06-2024 Telephone encounter Note * Telephone Encounter - Obdulia Khan LPN - 04/06/2024 12:05 PM EDT Prescription Refill Information The patient has been [...] Khan LPN April 06, 2024 12:05 PM [facility]09-06-2024 Miscellaneous Notes* Telephone Encounter - Obdulia Khan LPN - 04/06/2024 12:05 PM EDT Prescription Refill Information The patient has been [...] 06, 2024 12:05 PM documented in this encounterUniversity Hospitals Elyria [facility] Center09-03-2024 Telephone encounter Note * Telephone Encounter - Yu Duncan LPN - 04/03/2024 12:32 PM EDT The patient has been identified by name [...] Duncan LPN April 03, 2024 12:32 PM [facility]09-03-2024 Miscellaneous Notes* Telephone Encounter - Yu Duncan LPN - 04/03/2024 12:32 PM EDT The patient has been identified by name [...] 03, 2024 12:32 PM documented in this encounterUniversity Hospitals Elyria Medical Center08-26-2024 NoteHNO ID: [id number] Author: SAMSON RAGSDALE, DO Service: ? Author [...] decision making 07/03/2013: AMI (acute myocardial infarction) (HCC) 05/2014: Carotid atherosclerosis No date: CKD stage G3b/A2, GFR 30-44 and albumin creatinine ratio 30- 299 mg/g (HCC) Comment: AVOID NEPHROTOXIC MEDICATIONS No date: Diabetes [...] Carotid Endarectomy right 07/10/07 (more content not included)...[facility]08-26-20[facility] History of Present illness Narrative* Samson Ragsdale, DO - 03/26/2024 3:02 PM EDT Patient presents with: 6 Month Exam: diarrhea [...] Trying to get adequate fluid intake in. AvoidsNSAIDs Hemoglobin (g/dL) Date Value 03/19/2024 12.5 09/09/2021 [...] decision making 07/03/2013: AMI (acute myocardial infarction) ([facility]) 05/2014: Carotid atherosclerosis No date: CKD stage G3b/A2, GFR 30-44 and albumin creatinine ratio 30- 299 mg/g ([facility]) Comment: AVOID NEPHROTOXIC MEDICATIONS No date: Diabetes [...] ARTERY GRAFT 1 VEIN Comment: CABG, single graft, Sridhar Harris 07/03/2013: CORONARY ENDARTERCOMY OPEN ANY METHOD Comment: Angioplasty Xience stent to L circumflex 04/26/2017: EGD Comment: [facility] Dr. Nolan Triana 07/10/07: EGD TRANSORAL BIOPSY SINGLE/MULTIPLE 01/26/08: PAST SURGICAL HISTORY OF Comment: stent placement ramus and prox ramus No date: PAST SURGICAL HISTORY OF Comment: heart stents 2000: PROSTATECTOMY PERINEAL RADICAL Comment: Prostatectomy, radical- Dr. Ojeda left: RPR 1ST INGUN HRNA AGE 6 YRS/> REDUCIBLE Comment: Hernia repair, inguinal 04/26/2017: SCREENING COLONSCOPY NOT HIGH RISK Comment: Dr. Yousif Triana; next screening colonoscopy in 10yrs, [facility] 06/06/2018: UNLISTED DIAGNOSTIC GASTROENTEROLOGY PROCEDURE Social History [...] Rash Pravastatin Other: See Comments muscle aches Lbyuwqz-Siz-Dww Red* Other: See Comments myalgia Current Meds: [...] COMPLEX ORAL)^Take by mouth.^Disp: ^Rfl: (Patient not taking:Reported on 05/31/2023) Insulin [place], Disposable, (BD ULTRA-FINE BENNY PEN NEEDLE) 32 gauge x ^Use once daily with Lantus as directed^Disp: 100 Each^Rfl: 3 diclofenac sodium (VOLTAREN) 1 % topical gel^Apply 2 g to affected area four times daily.^Disp: 100g^Rfl: 0 flaxseed oil (OMEGA 3 ORAL)^Take by [...] Recommend regular aerobic exercise 6. Atherosclerosis of [place]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[place] heart with angina pectoris ([facility]) - ICD9: 414.01, 413.9, ICD10: I25.119 Stable 7. Abdominal aortic aneurysm (AAA) without rupture, unspecified part ([facility]) - ICD9: 441.4, ICD10: I71.40 stable 8. 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 Discussed risks, benefits, alternatives, and potential side effects of medications. Patient expressed understanding and agreed with the plan. Samson Ragsdale DO [address] [place] [address] documented in this encounterUniversity Hospitals Elyria Medical Center08-09-2024 Telephone encounter Note * Telephone Encounter - NomiCaridad patten MA - 03/09/2024 12:28 PM EDT Pt informed, verbalized understanding Caridad Delong MA [facility]08-09-2024 Miscellaneous Notes* Telephone Encounter - Caridad Delong MA - 03/09/2024 12:28 PM EDT Pt informed, verbalized understanding Caridad Delong MA * Telephone Encounter - Desirae Irving APRN.CNP - 03/09/2024 12:26 PM EDT Labs are placed. Need to be fasting for these. Thank you, Desirae Irving APRN.JAIRON * Telephone Encounter - Caridad Delong MA - 03/09/2024 12:17 PM EDT Pt requesting lab orders prior to upcoming appt with JG on 03/26 Caridad Delong MA documented in this encounterUniversity Hospitals Elyria Medical Center08-09-2024 Telephone encounter Note * Telephone Encounter - Desirae Irving APRN.CNP - 03/09/2024 12:26 PM EDT Labs are placed. Need to be fasting for these. Thank you, Desirae Irving APRN.CNP [facility]08-09-2024 Telephone encounter Note* Telephone Encounter - Caridad Delong MA - 03/09/2024 12:17 PM EDT Pt requesting lab orders prior to upcoming appt with JG on 03/26 Caridad Delong MA [facility]06-28-2024 Telephone encounter Note* Telephone Encounter - Camille Harper RN - 01/27/2024 10:58 AM EDT The patient has been identified by name [...] Harper RN January 27, 2024 11:07 AM [facility]06-28-2024 Miscellaneous Notes* Telephone Encounter - Camille Harper RN - 01/27/2024 10:58 AM EDT The patient has been identified by name [...] 27, 2024 11:07 AM documented in this encounterUniversity Hospitals Elyria [facility] Center04-16-2024 Telephone encounter Note * Telephone Encounter - Cleopatra Frey LPN - 11/15/2023 10:25 AM EDT Paperwork is still needing completed. Paperwork on providers desk. Cleopatra Frey LPN [facility] Work Phone: [phone] 491-818404-16-2024 Miscellaneous Notes* Telephone Encounter - Cleopatra Frey LPN - 11/15/2023 10:25 AM EDT Paperwork is still needing completed. Paperwork on providers desk. Cleopatra Frey LPN * Telephone Encounter - Samson Ragsdale DO - 11/14/2023 5:11 PM EDT A paper was signed today Is more needed? Samson Ragsdale DO * Telephone Encounter - Rama Belcher LPN - 09/27/2023 3:14 PM EST Pt. here inquiring about [facility] for [facility]. I told Pt. they were on your desk and needed to be filled out. Pt. thought he had brought more in than just what I found. No forms found in scanning. documented in this encounterUniversity Hospitals [facility]04-15-2024 Telephone encounter Note * Telephone Encounter - Samson Ragsdale DO - 11/14/2023 5:11 PM EDT A paper was signed today Is more needed? Samson Ragsdale DO [facility]04-15-2024 Miscellaneous Notes* Telephone Encounter - Rama Gould LPN - 11/14/2023 2:40 PM EDT Letter created and signed. Given to Patient. * Telephone Encounter - Malu Galindo LPN - 11/10/2023 1:49 PM EDT Pt came into office states has spoke with you in the past about his skin lesions and needing a letter for a meeting with the MD GERM[facility]N. He has this meeting with them this next TuesdayNovember 15 early. Will be needing this letter from you at the latest by TuesdayNovember 14 so he can take it with him the next day.The letter must say how long these have been treated by you the name of the lesions on [facility] letterhead. He gave this nurse an example of the letter he is presenting . I have placed thison your desk with a little paste it to see phone note. Pt asks to be called at this number [phone] when completed and he will picker packer. documented in this encounterUniversity Hospitals Ely[facility] Center03-25-2024 Miscellaneous Notes* Telephone Encounter - Yeimy Arboleda LPN - 10/24/2023 12:40 PM EDT Patient has been identified by [...] you. Yeimy Arboleda LPN. documented in this encounterUniversity Hospitals Ely[facility] Center03-08-2024 History of Present illness Narrative* Samson Ragsdale, DO - 10/07/2023 5:03 PM EST Patient presents with: 6 Month Exam HPI: [...] 100 lbs or greater repeatedly in the [place] war. No recent injuries. Use of ice [...] the and he was exposed to [place] in [place]. Hx of prostate cancer Mr. Gage has past history of diabetes. Since our last visit he denies excessive thirst or increased frequency of urination, chest pain or dyspnea , new or unusual visual symptoms, and low sugar/hypoglycemic reactions. Patient does have some numbness of feet. He checks feet regularly. Reiterationof importance of diabetic foot care give Follows [...] GRAFT 1 VEIN 1994 CABG, single graft, Sridhar Harris CORONARY ENDARTERCOMY OPEN ANY METHOD 07/03/2013 Angioplasty Xience stent to L circumflex EGD 04/26/2017 [facility] [address]. Nolan Triana EGD TRANSORAL BIOPSY SINGLE/MULTIPLE 07/10/07 PAST SURGICAL HISTORY OF 01/26/08 stent placement ramus and prox ramus PAST SURGICAL HISTORY OF heart stents PROSTATECTOMY PERINEAL RADICAL 1999 Prostatectomy, radical- Dr. 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 Yousif Triana; next screening colonoscopy in 10yrs, [facility] UNLISTED DIAGNOSTIC GASTROENTEROLOGY PROCEDURE 06/06/2018 Social History [...] Rash Pravastatin Other: See Comments muscle aches Gmxybqa-Nxu-Dqo Red* Other: See Comments myalgia Current Meds: [...] COMPLEX ORAL)^Take by mouth.^Disp: ^Rfl: (Patient not taking:Reported on 05/31/2023) Insulin [place], Disposable, (BD ULTRA-FINE BENNY PEN NEEDLE) 32 gauge x ^Use once daily with Lantus as directed^Disp: 100 Each^Rfl: 3 diclofenac sodium (VOLTAREN) 1 % topical gel^Apply 2 g to affected area four times daily.^Disp: 100g^Rfl: 0 flaxseed oil (OMEGA 3 ORAL)^Take by [...] kidney disease) stage 4, GFR 15-29 ml/min ([facility]) - ICD9: 585.4, ICD10: N18.4 (primary diagnosis) [...] I44.2 stable 6. Malignant neoplasm of prostate (HCC) - ICD9: 185, ICD10: C61 Hx of [...] on low sodium diet 8. Atherosclerosis of [place]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[place] heart with angina pectoris (HCC) - ICD9: [...] agreed with the plan. Samson Ragsdale DO [address] [place] [address] documented in this encounterUniversity Hospitals Elyria [facility] Center03-05-2024 History of Present illness Narrative* Brittany West DO - 10/04/2023 10:37 AM EST Images from the original note were not included. [facility] [place] DEPARTMENT OF VASCULAR SURGERY OUTPATIENT VISIT DATE [...] GRAFT 1 VEIN 1994 CABG, single graft, Sridhar Harris CORONARY ENDARTERCOMY OPEN ANY METHOD 07/03/2013 Angioplasty Xience stent to L circumflex EGD 04/26/2017 [facility] [address]. Nolan Triana EGD TRANSORAL BIOPSY SINGLE/MULTIPLE 07/10/07 PAST SURGICAL HISTORY OF 01/26/08 stent placement ramus and prox ramus PAST SURGICAL HISTORY OF heart stents PROSTATECTOMY PERINEAL RADICAL 1999 Prostatectomy, radical- Dr. 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 Yousif Triana; next screening colonoscopy in 10yrs, [facility] UNLISTED DIAGNOSTIC GASTROENTEROLOGY PROCEDURE 06/06/2018 SOCIAL HISTORY [...] Yes^Disp: 300 Strip^Rfl: 3 CRANBERRY^^Disp: ^Rfl: Insulin [place], Disposable, (BD ULTRA-FINE BENNY PEN NEEDLE) 32 [...] COMPLEX ORAL)^Take by mouth.^Disp: ^Rfl: (Patient not taking:Reported on 05/31/2023) diclofenac sodium (VOLTAREN) 1 % [...] Rash Pravastatin Other: See Comments muscle aches Nkasscz-Tkp-Fov Red* Other: See Comments myalgia PHYSICAL EXAM: [...] 2023 TIME: 10:38 AM documented in this encounterUniversity Hospitals Elyria Medical Center02-27-2024 Telephone encounter Note * Telephone Encounter - Rama Belcher LPN - 09/27/2023 3:14 PM EST Pt. here inquiring about forms for the [facility]. I told Pt. they were on your desk and needed to be filled out. Pt. thought he had brought more in than just what I found. No forms found in scanning. [facility]-26-[facility] Instructions* Patient Instructions* Samson Ragsdale DO - 09/26/2023 2:01 PM EST Start eating a banana daily Start a probiotic at bedtime documented in this encounterUniversity Hospitals Elyria Medical Center12-05-2023 Miscellaneous Notes* Telephone Encounter - Renetta Parish - 07/05/2023 4:51 PM EST Patient has been identified by name and date of : Yes Requested Prescriptions Pending Prescriptions Disp Refills isosorbide mononitrate ER (IMDUR) 30 mg 24 hr tablet 90 tablet 3 Sig: Take 1 tablet by mouth once daily. RX INSTRUCTIONS: Patient aware RX will be sent to pharmacy. No need to notify patient. Renetta Kirkpatrick Pss documented in this encounterUniversity Hospitals Elyria Medical Center11-07-2023 Miscellaneous Notes* Telephone Encounter - Nav Allan LPN - 06/07/2023 12:59 PM EST Pt calling stating he brought in disability paperwork from the [facility] to see if Dr Ragsdale would/couldcomplete this for him. States he brought them to office in Apr. Pt had also called in on 05/30 to check on this, see TE. Pt states he thinks they were waiting until the results of his stress test which was done on 05/07. Pt states he was to bring these forms back to [facility] office. Please let pt know ifforms were completed so he can pick them up or he will still need to pick these up from office and try to go a different route to have them completed. Please return call to pt. Nav Allan LPN documented in this encounterUniversity Hospitals Elyria Medical Center10-31-2023 History of Present illness Narrative* Brittany West DO - 05/31/2023 10:12 AM EDT Images from the original note were not included. [facility] [place] DEPARTMENT OF VASCULAR SURGERY OUTPATIENT VISIT DATE May 31, 2023 OUTPATIENT VISIT TYPE CONSULTATION SERVICE DATE: 05/31/2023 SERVICE TIME: 10:12 AM PRIMARY CARE PHYSICIAN: Samson Ragsdale DO REFERRING PROVIDER: Samson Ragsdale [address] [facility] [address] Consult requested for an opinion regarding the [...] without mention of hemorrhage 04/26/2017 EGD by [facility] Advance care planning 03/24/2022 [place] can help [...] GRAFT 1 VEIN 1994 CABG, single graft, Sridhar Harris CORONARY ENDARTERCOMY OPEN ANY METHOD 07/03/2013 Angioplasty Xience stent to L circumflex EGD 04/26/2017 [facility] [address]. Nolan Triana EGD TRANSORAL BIOPSY SINGLE/MULTIPLE 07/10/07 PAST SURGICAL HISTORY OF 01/26/08 stent placement ramus and prox ramus PAST SURGICAL HISTORY OF heart stents PROSTATECTOMY PERINEAL RADICAL 1999 Prostatectomy, radical- Dr. 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 Yousif Triana; next screening colonoscopy in 10yrs, [facility] UNLISTED DIAGNOSTIC GASTROENTEROLOGY PROCEDURE 06/06/2018 SOCIAL HISTORY: [...] (LIVER COMPLEX ORAL)^Take by mouth.^Disp: ^Rfl: Insulin [place], Disposable, (BD ULTRA-FINE BENNY PEN NEEDLE) 32 gauge x 5/32^Use once daily with Lantus as directed^Disp: 100 Each^Rfl: 3 diclofenac sodium (VOLTAREN) 1 % topical gel^Apply 2 g to affected area four times daily.^Disp: 100g^Rfl: 0 flaxseed oil (OMEGA 3 ORAL)^Take by [...] Rash Pravastatin Other: See Comments muscle aches Vancfrd-Qzv-Faw Red* Other: See Comments myalgia REVIEW OF [...] 2023 TIME: 10:12 AM documented in this encounterUniversity Hospitals Elyria Medical Center10-30-2023 Miscellaneous Notes* Telephone Encounter - Malu Galindo LPN - 05/30/2023 4:34 PM EDT Spoke with pt he states [place] these papers [place] was told he needs to bring theseto his pcp to fill out. This paperwork is for disability from va. This nurse explained to him I would have Dr. Ragsdale look at it . She would have to see what she is comfortable filling out. She usually does not fill va paperwork out states va doctors do this. * Telephone Encounter - Lorraine Saravia RN - 05/30/2023 3:36 PM EDT Patient calling and asking if there is any update to the VA Benefit paperwork he submitted to PCP office about a month ago to have completed by Dr. Ragsdale. Please call patient with any updates. Thank you. documented in this encounterUniversity Hospitals Elyria Medical Center10-28-2023 Note Discharge Instructions Thank you for allowing [facility] to assist you with your healthcare needs. The following is importantdischarge information regarding your hospital visit. Your Care Team SAMSON RAGSDALE DO What to do next Scheduled Follow-Up Appointments Appointment Type When Where Contact [facility] Follow Up 07/05/2023 11:45 AM EST [facility] Follow Up Appointments Follow Up with PALOMO PETERSEN MD When In 2 weeks Where: [address] [place] [address]- [facility] Up with [facility] When Why: THE [facility] DEPARTMENT WILL CONTACT YOU TO SCHEDULE YOU FOR PHASE 2. WE LEFT YOU A BROCHURE WITH INFORMATION ABOUT [facility], IF YOU HAVE ANY QUESTIONS PLEASE CALL [phone] Where: [facility] [address] [place] [address]- The Following Activity and Diet Have Been [...] and or supplements as they may interact withyour home medications. What How Much When Instructions Last Dose New atorvastatin (atorvastatin 40 mg oral tablet) 1 tab(s) by mouth Once a day Duration: 90 Days Refills: 4 Pickup at [facility] Changed amLODIPine (amLODIPine 5 mg oral tablet) 1 tab(s) by mouth Once a day Duration: 30 Days Pickup at [facility] Changed aspirin ([facility] Aspirin 81 mg oral tablet, (chewable)) 1 tab(s) by mouth Once a day with a meal Duration: 90 Days Pickup at [facility] Changed carvedilol (Coreg 6.25 mg oral tablet) 1 tab(s) by mouth Twice daily with meals Duration: 30 Days Pickup at [facility] Changed clopidogrel (Plavix 75 mg oral tablet) 1 tab(s) by mouth Once a day Duration: 90 Days Pickup at [facility] Changed losartan (losartan 25 mg oral tablet) 1 tab(s) by mouth Once a day Duration: 30 Days Pickup at [facility] Unchanged allopurinol (allopurinol 100 mg oral [...] Chest pain Unchanged omega-3 polyunsaturated fatty acids ([place]-3 1000 mg oral capsule) by mouth Once a day Unchanged potassium chloride (potassium chloride 10 mEq oral capsule, extended release) 1 cap by mouth Every day take with food. Unchanged ubiquinone (Co Q-10 100 mg oral capsule) 1 cap by mouth Every day Pharmacy Information [facility]: [address] [place], [place] [id number] [phone] What How Much When Comments Stop Taking [...] may report side effects to FDA at 5-845-KCC-0555. What other drugs will affect amlodipine? Sometimes it is not safe to use certain medicines at the same time. Some drugs can affect your blood levels of other drugs you use, which may increase side effects or make the medicines less effective. Other drugs may affect amlodipine, including prescription and emti-btt-pvkogku medicines, vitamins,and herbal products. Tell your doctor about all [...] to ensure that the information provided by From[employer]. ('PNMsofttum') is accurate, up-to-date, and complete, but no guarantee is made to that effect. Drug information contained herein may be time sensitive. Inv[employer] information has been compiled for use by healthcare practitioners and consumers in the [place] and therefore [employer] does not warrant that uses outside of the [place] are appropriate, unless specifically indicated otherwise. BERDs drug information does not endorse drugs, diagnose patients or recommend therapy. BERDs drug information isan informational resource designed to assist licensed healthcare practitioners in caring for their p atients and/or to serve consumers viewing this service as a supplement to, and not a substitute for, the expertise, skill, knowledge and judgment of healthcare practitioners. The absence of a warningfor a given drug or drug combination in no way should be construed to indicate that the drug or drug combination is safe, effective or appropriate for any given patient. [employer] does not assume any responsibility for any aspect of healthcare administered with the aid of information Mult[employer] provides. The information contained herein is not intended to cover all possible uses, directions, precautions, warnings, drug interactions, allergic reactions, or adverse effects. If you have questions about the drugs you are taking, check with your doctor, nurse or pharmacist. Copyright 3306-6100 [employer]. Version: 16.. Revision Date: 12/09/2022. clopidogrel (kloe PID oh grel) Plavix What is the most important information I should know about clopidogrel? You should not use this medicine if you have any active bleeding such as a stomach ulcer or bleeding in the brain. Clopidogrel increases your risk of bleeding, which can be severe or life- threatening. Call your doctor or seek emergency medical [...] Poison Help line at . Overdose can causeexcessive bleeding. What should I avoid while taking [...] of bleeding, which can be severe or life- threatening. Call your doctor or seek emergency medical [...] may report side effects to FDA at 4-695-JYI-4578. What other drugs will affect clopidogrel? Sometimes it is not safe to use certain medications at the same time. Some drugs can affect your blood levels of other drugs you take, which may increase side effects or make the medications less effective. Tell your doctor about all your other medicines, especially: a stomach acid repairer screen crusher such as omeprazole, Nexium, or Prilosec; an antidepressant such as citalopram, fluoxetine, sertraline, Cymbalta, Effexor, Lexapro, Pristiq, or Prozac; rifampin; a blood thinner--warfarin, Coumadin, Jantoven; or NSAIDs (nonsteroidal anti-inflammatory drugs)--aspirin, ibuprofen (Advil, Motrin), naproxen (Aleve), celecoxib, diclofenac, indomethacin, meloxicam, and others. This list is not complete. Other drugs may affect clopidogrel, including prescription and kuyz-toj-hbuqiyw medicines, vitamins, and herbal products. Not all [...] to ensure that the information provided by FromUs. ('Multum') is accurate, up-to-date, and complete, but no guarantee is made to that effect. Drug information contained herein may be time sensitive. Invrep information has been compiled for use by healthcare practitioners and consumers in the [place] and therefore Invrep does not warrant that uses outside of the [place] are appropriate, unless specifically indicated otherwise. BERDs drug information does not endorse drugs, diagnose patients or recommend therapy. BERDs drug information isan informational resource designed to assist licensed healthcare practitioners in caring for their p atients and/or to serve consumers viewing this service as a supplement to, and not a substitute for, the expertise, skill, knowledge and judgment of healthcare practitioners. The absence of a warningfor a given drug or drug combination in no way should be construed to indicate that the drug or drug combination is safe, effective or appropriate for any given patient. [facility] does not assume any responsibility for any aspect of healthcare administered with the aid of information [facility] provides. The information contained herein is not intended to cover all possible uses, directions, precautions, warnings, drug interactions, allergic reactions, or adverse effects. If you have questions about the drugs you are taking, check with your doctor, nurse or pharmacist. Copyright 6212-5415 [facility] Hospital[facility] laura zoidu. Version: 18.01. Revision Date: 10/29/2020. carvedilol (ROGERIO ve dil ole) Theresa Cardenas What is the most important information I should know about carvedilol? You should not take carvedilol if you have asthma, bronchitis, emphysema, severe liver disease, or a serious heart condition such as heart block, 'sick sinus syndrome,' or slow heart rate (unless youhave a pacemaker). What is carvedilol? Carvedilol is [...] failure, heart block, 'sick sinus syndrome,' or slowheart rate (unless you have a pacemaker). Tell [...] using this medication even if you feel well.High blood pressure often has no symptoms. You [...] may include uneven heartbeats, shortness of breath, bluish- colored fingernails, dizziness, weakness, fainting, and seizure (convulsions). [...] may report side effects to FDA at 3-200-ANC-5090. What other drugs will affect carvedilol? Sometimes it is not safe to use certain medications at the same time. Some drugs can affect your blood levels of other drugs you take, which may increase side effects or make the medications less effective. Other drugs may affect carvedilol, including prescription and kbsu-rlg-pjvorro medicines, vitamins,and herbal products. Tell your doctor about all [...] to ensure that the information provided by FromUs. ('Multum') is accurate, up-to-date, and complete, but no guarantee is made to that effect. Drug information contained herein may be time sensitive. Rodo Medicalum information has been compiled for use by healthcare practitioners and consumers in the [place] and therefore Invrep does not warrant that uses outside of the [place] are appropriate, unless specifically indicated otherwise. Invrep's drug information does not endorse drugs, diagnose patients or recommend therapy. BERDs drug information isan informational resource designed to assist licensed healthcare practitioners in caring for their p atients and/or to serve consumers viewing this service as a supplement to, and not a substitute for, the expertise, skill, knowledge and judgment of healthcare practitioners. The absence of a warningfor a given drug or drug combination in no way should be construed to indicate that the drug or drug combination is safe, effective or appropriate for any given patient. [facility] does not assume any responsibility for any aspect of healthcare administered with the aid of information [facility] provides. The information contained herein is not intended to cover all possible uses, directions, precautions, warnings, drug interactions, allergic reactions, or adverse effects. If you have questions about the drugs you are taking, check with your doctor, nurse or pharmacist. Copyright 9061-[address]643 [facility]. Version: 16.. Revision Date: 11/23/2018. Education Materials [...] and water are not available, use hand field services director. ? Change your dressing as told by [...] help you relax (sedative). General instructions Take oiph-rwd-ozmsduh and prescription medicines only as told by [...] 03/21/2015 Document Revised: 07/31/2018 Document Reviewed: 07/31/2018 [employer]inger[employer] Patient Education 2020 [employer] Coronary Angioplasty, Care After This sheet [...] Follow these instructions at home: Medicines Take vgcy-wdc-kopelql and prescription medicines only as told by [...] and water are not available, use hand field services director. ? Change your dressing as told by [...] 02/03/2006 Document Revised: 06/30/2018 Document Reviewed: 02/20/2017 [employer] Patient Education 2020 [employer] Additional Information VACCINATE! IT SAVES LIVES! Members of the community who have not yet received the COVID-19 vaccine and would like to receive it can visit one of [facility] vaccine clinics. There are many vaccine clinic locations within the [facility]. For locations and available times, please visit [email or web address].[place].gov/. It is important to note that some COVID mobile vaccine clinics are held outdoors and may be canceled in rainy or stormy conditions. To learn more about pediatric vaccinations (ages 5-11), we invite you to visit the [facility] webpage. [email or web address]://www.[email or web address]/pages/[email or web address]-Jigta-Fgxcaubikdn-Szjnuefwcr-Jgbdq-[email or web address] stions.htmlTo learn more about the COVID-19 vaccine, we invite you to visit the CDC website for a list of frequently asked questions.https://www.cdc.gov/coronavirus/2019-ncov/vaccines/faq.html [facility] Patient Portal Access Instructions: Stay connected with your healthcare team and access your personal medical information anytime with the [place] [facility] Patient Portal. Please follow the directions below to create your [facility] account: 1.Access the email account you provided upon registration to the hospital/physician office.2.Look for an invitation email from [facility].3.Open the email and access the invitation link: AcceptInvitation to [facility].4.Fill in the required alvarenga to create your account. To access your account, visit [email or web address]. Click the blue button labeled Access Patient Portal and then log in with the username and password that you created in the steps above. You will be able to view your test results, lab results, a summary of your visits, upcoming appointments and more. There is also a convenient messaging option where you can send secure messages to your p BlueSpacevider. In addition, you will have the ability to download any documents or summaries to your computer and/or send the information securely to a physician. Remember that your healthcare information is confidential, so carefully consider who you will allowto register on the [place] [facility] Patient Portal for access to your information. You can also access the [place] [facility] Patient Portal on the [place] [employer] feng. Simply click on Patient Portal and then log into your account. If you would like to receive a full copy of your medical records, please contact the [facility] Medical Records Department by calling [phone], Tuesday through Tuesday between 8 a.m. and 4:30 p.m. HOW TO SAFELY DISPOSE OF PRESCRIPTION MEDICATIONS Please use one of the following methods to safely dispose of your unused medications. 1.Use a drug disposal kit: the drug disposal pouch allows you to safely discard your old and unuseddrugs. Ask your nurse to give you one when you are discharged.2.Visit a local take-back location: Many local pharmacies and police departments have programs that collect old and unwanted prescriptiondrugs. Call your local pharmacy or go to http://bit.ly/8Z2Ju3e to find one close to you.3.Make use of household items: Use cat litter or old coffee grounds to dispose medications if other options arenot available. Mix your drugs with these household products, seal them in an airtight container andthrow it into the garbage. Call [facility]: [phone] to be sure your drugs can be [...] been reviewed and explained to me and IFRANKY CHARLES H understand my current condition and have read and understand these discharge instructions. I have received a written copy of the plan/instructions. If I have questions, I am aware that I should contact my doctor. Patient/Field Services Analyst Signature: Date/Time: Relationship to Patient: Witness Name/Signature: Date/Time: [id number] Discharge instructions Patient Education 05/28/2023 12:13:36 [...] and water are not available, use hand field services director. ?Change your dressing as told by your [...] help you relax (sedative). General instructions Take oeka-zhh-tfjipgu and prescription medicines only as told by [...] 03/21/2015 Document Revised: 07/31/2018 Document Reviewed: 07/31/2018 [employer] Patient Education 2020 [employer]. 05/28/2023 12:12:58 Coronary Angioplasty, Care After Coronary [...] Follow these instructions at home: Medicines Take hmpt-pch-pidpvps and prescription medicines only as told by [...] and water are not available, use hand field services director. ?Change your dressing as told by your [...] 02/03/2006 Document Revised: 06/30/2018 Document Reviewed: 02/20/2017 [employer] Patient Education 2020 [employer]. Follow Up Care 05/23/2023 14:14:05 With:PALOMO PETERSEN MD Address: [address] [place] [address] [address] [facility] [place] [address]- When:Within 2 Week(s) With:[facility] Address: [facility] [address] [place] [address]- When: Unknown Comments:THE CARDIAC REHAB DEPARTMENT WILL CONTACT YOU TO SCHEDULE YOU FOR PHASE 2. WE LEFT YOU A BROCHURE WITH INFORMATION ABOUT CARDIAC REHAB, IF YOU HAVE ANY QUESTIONS PLEASE CALL [phone] [facility] 10-28-2023 Discharge summary Date of Service 05/28/2023 Discharge Diagnosis 1.CAD 2.positive stress test [at [facility]] Patient presented for elective cardiac cath [...] known to have coronary artery bypass grafting 1995 CASTILLO to LAD. Patient is status post [...] 90% RCA, 90% RPDA. This was on adiagnostic cath and the plan was staged because of contrast use. [05/25/2023]: Patient presented for elective cardiac cath with IV hydration because of positive stress test at [facility]. Allergies Motrin (unknown) Naprosyn Consults No [...] tablet)1 tab(s) by mouth once a day. Takewith food.. furosemide (furosemide 40 mg oral tablet)1 [...] pain. Refills: 3. omega-3 polyunsaturated fatty acids ([place]-3 1000 mg oral capsule)by mouth once a [...] Up Follow Up with [facility] When Why: THE CARDIAC REHAB DEPARTMENT WILL CONTACT YOU TO SCHEDULE YOU FOR PHASE 2. WE LEFT YOU A BROCHURE WITH INFORMATION ABOUT CARDIAC REHAB, IF YOU HAVE ANY QUESTIONS PLEASE CALL [phone] Where: [facility] [address] [place] [address]- Follow Up Appointments No qualifying data available. [...] PM Digitally Signed by GUILLERMO NUGENT MD [facility] HospitalZqrhikrj03-13-8110 Cardiology Progress note Date of Service 08/28/2022 [...] 90% RCA, 90% RPDA. This was on adiagnostic cath and the plan was staged because of contrast use. [05/25/2023]: Patient presented for elective cardiac cath with IV hydration because of positive stress test at [facility]. Objective Vitals and Measurements T: 36.8 [...] hrs post contrast 1 EA, Miscellaneous, Unscheduled ulxsg-9-xugp ethyl esters 1000 mg capsule 1,000 mg [...] Nursing Assessment/Plan 1.CAD 2.positive stress test [at [facility]] Patient presented for elective cardiac cath [...] PM Digitally Signed by GUILLERMO NUGENT MD [facility] [id number] Cardiology Progress note Subjective No acute overnight [...] hrs post contrast 1 EA, Miscellaneous, Unscheduled gnziy-4-nhsa ethyl esters 1000 mg capsule 1,000 mg [...] FLOR BOOGIE MD on 05/27/2023 03:03 PM [facility] [id number] Cardiology Progress note Subjective No acute overnight [...] hrs post contrast 1 EA, Miscellaneous, Unscheduled edouv-8-ltzt ethyl esters 1000 mg capsule 1,000 mg [...] FLOR BOOGIE MD on 05/27/2023 03:03 PM [facility] [id number] NoteSINUS RHYTHM BORDERLINE T WAVE ABNORMALITIES Electronic Signature: GUILLERMO NUGENT MD 05/28/2023 14:06:54[facility] 10-27-2023 Note* Exam Date Time Procedure Performing Provider Status 05/27/23 8:18 AM Percut Transluminal Coronary Angioplasty Auth (Verified) [facility] 10-26-2023 Cardiology Progress note Date of Service [...] tablet 25 mg 1 tab(s), Oral, qDay kvzrc-0-dfeh ethyl esters 1000 mg capsule 1,000 mg [...] KATHY MIJARES MD on 05/26/2023 05:18 PM [facility] [id number] Cardiology Progress note Date of Service 05/26/2023 [...] tablet 25 mg 1 tab(s), Oral, qDay lptvb-2-bfqu ethyl esters 1000 mg capsule 1,000 mg [...] KATHY MIJARES MD on 05/26/2023 05:18 PM [facility] [id number] NoteSINUS RHYTHM BORDERLINE T WAVE ABNORMALITIES Electronic Signature: SILVANA TORRES MD 05/27/2023 09:28:13[facility] 10-25-2023 Note* Exam Date Time Procedure Performing Provider Status 05/25/23 2:46 PM Cardiac Catheterization -CV Auth (Verified) [facility] 10-25-2023 History and physical note Date of [...] direct admit for IV hydration prior to [facility]. Patient is known to Dr. Petersen, has been complaining of a lot of shortness of breath, stress test done at [facility] revealed abnormal LV systolic function as [...] due to worsening BRAND, admitted for elective [facility] s/p IV hydration overnight. Noted to have abnormal stress test result with moderate sized kendra-infarct ischemia at [facility] as per office notes. Plan for [facility] today, NPO for procedure. Resumed home Coreg, losartan, amlodipine at lower doses given soft BP readings overnight, can uptitrate as tolerated. Continue isosorbide mononitrate 30mgqdaily. Continue all other chronic home medications. Discussed with Dr. 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 Noted to have abnormal stress test result with moderate sized kendra-infarct ischemia at [facility] as per office notes. Plan for C today, NPO for procedure. Resumed home Coreg, losartan, amlodipine at lower doses given soft BP readings overnight, can uptitrate as tolerated. Continue isosorbide mononitrate 30mgqdaily. Continue all other chronic home medications. Discussed with Dr. Acharya Addendum by SELENA ACHARYA MD on May 25, 2023 14:07:25 EDT Vitals Signs(Last 24 hrs)__ Last Charted Minimum Maximum Temp 36.5(MAY 25 11:09) 36.5(MAY 25 11:09) 37.0(MAY 25 03:06) Heart Rate 63(MAY 25 11:09) L 57(MAY 24 23:18) 64(MAY 24 21:15) [...] Appointments Appointment Date:07/05/2023 11:45:00 AM Scheduled Provider: Location:[facility] Appointment Type:CV Hospital Follow Up Future Scheduled Tests Laboratory* Complete Blood Count 05/19/23 * Prothrombin Time - Panel 05/19/23 * Complete Metabolic Panel 05/19/23 [facility] 10-25-2023 History and physical note Date of [...] direct admit for IV hydration prior to [facility]. Patient is known to Dr. Petersen, has been complaining of a lot of shortness of breath, stress test done at [facility] revealed abnormal LV systolic function as [...] due to worsening BRAND, admitted for elective [facility] s/p IV hydration overnight. Noted to have abnormal stress test result with moderate sized kendra-infarct ischemia at [facility] as per office notes. Plan for [facility] today, NPO for procedure. Resumed home Coreg, losartan, amlodipine at lower doses given soft BP readings overnight, can uptitrate as tolerated. Continue isosorbide mononitrate 30mgqdaily. Continue all other chronic home medications. Discussed with Dr. Acharya Problem List/Past Medical History Ongoing Acid reflux Arthritis Back pain CAD IN [place] ART[place] CKD (chronic kidney disease), stage IV [...] mg = 1 tab(s), PRN, Sublingual, q5min [place]-3 1000 mg oral capsule , Oral, qDay [...] tab(s), PRN, Oral, Daily Allergies Motrin (unknown) Abelardo Social History Smoking Status - 07/03/2013 Former [...] SUSANNE DENNIS MD on 05/25/2023 09:26 AM [facility] [id number] NoteSINUS RHYTHM PROBABLE LEFT ATRIAL ENLARGEMENT Electronic Signature: SILVANA TORRES MD 05/26/2023 21:16:31[facility] 10-11-2023 Miscellaneous Notes* Telephone Encounter - Camille Harper RN - 05/11/2023 10:40 AM EDT Spoke to Dr. Petersen's nurse. Stress test results faxed to [phone] per request along with most recent EKG and ECHO. Appointment with Dr. Petersen scheduled first available for May 19 at 215 pm in the [place] [facility]. Call placed to patient and notified of abnormal tress test results and follow up appointment with Dr. Petersen on May 19 at 215 pm. Patient verbalizes understanding and will follow up on the with Dr. Petersen. Camille Harper RN * Telephone Encounter - Stephanie Hayes MA - 05/11/2023 8:22 AM EDT Phone call to [facility] to facilitate appointment and obtain fax number tosend most recent stress test. LM for Dr. Petersen's nurse to contact office for the following: - Pt had abnormal lexiscan on 05/09/23 showing mild ischemia in the LCX and moderate fixed perfusiondefect is same territory. -Dr. Mandel would like patient to be seen in the next week by his public transit specialist. - Please ask for fax number so that we can fax testing. Stephanie Hayes MA * Telephone Encounter - Dudley Mandel MD - 05/09/2023 2:09 PM EDT Called and spoke with Dr. Morgan regarding mild ischemia in LCX and miderate fixed perfusion defect in same territory. Recommended he be evaluated in the next week by his public transit specialist. Looks like he was seen in September by Dr. Petersen. Please fax results to patient's public transit specialist's office and assist with scheduling OV for [...] but needs follow up. His phone # [phone]. Malika Meier RN documented in this encounterUniversity Hospitals Elyria Medical Center10-09-2023 History of Present illness Narrative* Olga Cobb [...] Olga Cobb RN Reversal agent used:None LOT [id number] EXP 08/01/26 IV SITE: IV palced by nuclear tecnologist POST EXAM PIV STATUS: Discontinued by Aircraft Motor Mechanic PATIENT DISCHARGED TO: Nuclear Medicine Department for post stress imaging A Diagnostic radioactive procedure has taken place, with no further precautions necessary other than routine body substance precautions. More information regarding radiation safety can be found usingthis link: [email or web address]%20Nuclear%20Medicine%[email or web address] SIGNATURE: Olga Cobb RN PATIENT NAME:Abraham Gage DATE: 05/09/23 TIME: 10:48 AM documented in this encounterUniversity Hospitals Elyria Medical Center10-09-2023 History of Present illness Narrative* Ct Sprague, RT(R) - 05/09/2023 8:30 AM EDT RADIOLOGY SERVICE [...] Discontinued PROCEDURE TYPE: NM Stress: 8.4 mCi [id number] was administered IV for Rest Imaging at 08:[address]. 26.5 mCi Py63d-Emmqgdh was administered IV for Stress Imaging at 09:[address]. ADMINISTRATION TIME: PATIENT DISCHARGED TO: Ambulatory patient, left NM department area. A Diagnostic radioactive procedure has taken place, with no further precautions necessary other than routine body substance precautions. More information regarding radiation safety can be found usingthis link: [email or web address] 20Diagnostic%20Nuclear%20Medicine%20Procedures.pdf SIGNATURE: RT Phill(R) PATIENT NAME: Abraham Gage DATE: May 09, 2023 TIME: 1:52 PM PAGER/CONTACT #: documented in this encounterUniversity Hospitals Elyria Medical Center08-25-2023 Miscellaneous Notes* Telephone Encounter - Marina Connor Ma - 03/25/2023 12:59 PM EDT Notified. Marina Connor Ma * Telephone Encounter - Malu Galindo LPN - 03/24/2023 11:05 AM EDT Left message to return call. * Telephone Encounter - Samson Ragsdale DO - 03/24/2023 10:29 AM EDT Please inform patient that his CXR is normal Samson Ragsdale DO documented in this encounterUniversity Hospitals Elyria Medical Center08-23-2023 History of Present illness Narrative* Samson Ragsdale [...] 100 lbs or greater repeatedly in the [place]. No recent injuries. Use of ice [...] ARTERY GRAFT 1 VEIN 1994 CABG, single graftSridhar Dr. CORONARY ENDARTERCOMY OPEN ANY METHOD 07/03/2013 Angioplasty Xience stent to L circumflex EGD 04/26/2017 [facility] [address]. Nolan Triana EGD TRANSORAL BIOPSY SINGLE/MULTIPLE 07/10/07 PAST SURGICAL HISTORY OF 01/26/08 stent placement ramus and prox ramus PAST SURGICAL HISTORY OF heart stents PROSTATECTOMY PERINEAL RADICAL 2000 Prostatectomy, radical- Dr. 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 Yousif Triana; next screening colonoscopy in 10yrs, [facility] UNLISTED DIAGNOSTIC GASTROENTEROLOGY PROCEDURE 06/06/2018 Social History [...] Rash Pravastatin Other: See Comments muscle aches Cwjofbp-Igc-Fjl Red* Other: See Comments myalgia Current Meds: [...] (LIVER COMPLEX ORAL)^Take by mouth.^Disp: ^Rfl: Insulin [place], Disposable, (BD ULTRA-FINE BENNY PEN NEEDLE) 32 [...] he can then also follow up with Motor Installer as well. Will go to EMERGENCY DEPARTMENT [...] he can then also follow up with Motor Installer as well. Will go to EMERGENCY DEPARTMENT [...] he can then also follow up with Motor Installer as well. Will go to EMERGENCY DEPARTMENT [...] PSA has been negative 8. Atherosclerosis of [place]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[place] heart with angina pectoris (HCC) - ICD9: [...] ml/min (HCC) - ICD9: 585.4, ICD10: N18.4 - eGFR: [...] with the plan. Samson Ragsdale DO [address] [place] [address] documented in this encounterUniversity Hospitals Elyria Medical Center08-07-2023 Miscellaneous Notes* Telephone Encounter - Rama Belcher LPN - 03/07/2023 4:54 PM EDT Pt. informed. * Telephone Encounter - Desirae Irving APRN.CNP - 03/07/2023 3:58 PM EDT Lab orders are placed. Please make pt aware. Thank you, Desirae Irving APRN.JAIRON * Telephone Encounter - Lorraine Szymanski - 03/07/2023 2:11 PM EDT Patient is requesting lab orders for upcoming appointment documented in this encounterUniversity Hospitals Elyria Medical Center07-05-2023 Miscellaneous Notes* Telephone Encounter - Malu Galindo LPN - 02/02/2023 10:29 AM EDT Alphonso--09/22/22 Nov--03/23/23 Last refill--04/22/22 90 with 3 refills Last [...] advise. Stephania Alan Pss documented in this encounterUniversity Hospitals Elyria Medical Center05-02-2023 History of Present illness Narrative* Tonny Nieves APRN.BATTERY CONTAINER TESTER ALUMINUM - 11/30/2022 12:36 PM EDT Subjective HPI [...] GRAFT 1 VEIN 1994 CABG, single graft, Sridhar Harris CORONARY ENDARTERCOMY OPEN ANY METHOD 07/03/2013 Angioplasty Xience stent to L circumflex EGD 04/26/2017 [facility] [address]. Nolan Triana EGD TRANSORAL BIOPSY SINGLE/MULTIPLE 07/10/07 PAST SURGICAL HISTORY OF 01/26/08 stent placement ramus and prox ramus PAST SURGICAL HISTORY OF heart stents PROSTATECTOMY PERINEAL RADICAL 2000 Prostatectomy, radical- Dr. 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 Yousif Triana; next screening colonoscopy in 10yrs, [facility] UNLISTED DIAGNOSTIC GASTROENTEROLOGY PROCEDURE 06/06/2018 ALLERGIES Atorvastatin, Crestor [Rosuvastatin Calcium], Glucosamine, Motrin [Ibuprofen], Pravastatin, and Woqpawc-Okq-Hho Reductase Inhibitors MEDICATIONS insulin glargine (BASAGLAR KWIKPEN [...] (LIVER COMPLEX ORAL) Take by mouth. Insulin [place], Disposable, (BD ULTRA-FINE BENNY PEN NEEDLE) 32 [...] - PREDNISONE 20 MG TABLET Tonny Nieves APRN.JAIRON documented in this encounterUniversity Hospitals Elyria Medical Center03-29-2023 Miscellaneous Notes* Telephone Encounter - Lorraine Saravia [...] you. Lorraine Saravia RN documented in this encounterUniversity Hospitals Elyria Medical Center03-11-2023 Miscellaneous Notes* Telephone Encounter - Yeimy Arboleda [...] in diameter of aneurysm. documented in this encounterUniversity Hospitals Elyria Medical Center02-24-2023 Miscellaneous Notes* Telephone Encounter - Gertrudis Wang [...] of Last Labs: 09/13/2022 documented in this encounterUniversity Hospitals Elyria Medical Center02-23-2023 History of Present illness Narrative* Samson Ragsdale DO - 09/23/2022 11:19 AM EST Patient presents with: F/U 3 Month HPI: Abraham Gage is a 82 year old male who presents to the office today for review of health conditions. Concerns today: CKD stage 3-4, has seen Dr. Quitneros Bait Packer in the last 1-2 years. Was told [...] without mention of hemorrhage 04/26/2017 EGD by Alejajamir Advance care planning 03/24/2022 [place] can help [...] GRAFT 1 VEIN 1994 CABG, single graft, Sridhar Harris CORONARY ENDARTERCOMY OPEN ANY METHOD 07/03/2013 Angioplasty Xience stent to L circumflex EGD 04/26/2017 [facility] [address]. Nolan Triana EGD TRANSORAL BIOPSY SINGLE/MULTIPLE 07/10/07 PAST SURGICAL HISTORY OF 01/26/08 stent placement ramus and prox ramus PAST SURGICAL HISTORY OF heart stents PROSTATECTOMY PERINEAL RADICAL 1999 Prostatectomy, radical- Dr. 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 Yousif Triana; next screening colonoscopy in 10yrs, [facility] UNLISTED DIAGNOSTIC GASTROENTEROLOGY PROCEDURE 06/06/2018 Social History [...] Rash Pravastatin Other: See Comments muscle aches Wmoe[place]wa-Cds-Tsa Red* Other: See Comments myalgia Current Meds: [...] (LIVER COMPLEX ORAL) Take by mouth. Insulin [place], Disposable, (BD ULTRA-FINE BENNY PEN NEEDLE) 32 [...] aneurysm (AAA) without rupture, unspecified part (HCC) - ICD9: 441.4, ICD10: I71.40 - recheck [...] ICD10: I25.10, I25.83 Recheck US, f/u with Motor Installer - US ABD AORTA [facility] - US CAROTID ARTERIES [facility] 7. Stenosis of left carotid artery - ICD9: 433.10, ICD10: I65.22 Recheck US, f/u with specialist - US CAROTID ARTERIES [facility] 8. CKD (chronic kidney disease) stage 4, GFR 15-29 ml/min ([facility]) - ICD9: 585.4, ICD10: N18.4 - eGFR: [...] with more than 50% of the total labw-lt-yvaa time of the visit in counseling / coordination of care. To ER if develops chest pain, shortness of breath, or severe worsening of symptoms. Discussed risks, benefits, alternatives, and potential side effects of medications. Patient expressed understanding and agreed with the plan. Samson Ragsdale DO [address] [place] [address] documented in this encounterUniversity Hospitals Elyria Medical Center01-06-2023 Miscellaneous Notes* Telephone Encounter - Camille Harper [...] Pended requested labs but need diagnoses. Camille Harper, RN documented in this encounterUniversity Hospitals Elyria Medical Center12-28-2022 History of Present illness Narrative* Jocelin Lange PA-C - 07/28/2022 12:53 PM EST This note was created using I and love and youter. Subjective Abraham Gage is a 82 year [...] has tried plain Mucinex and Mucinex sinus fpmx-zof-rehtgrl. Review of Systems Constitutional: Negative for fever. [...] (LIVER COMPLEX ORAL) Take by mouth. Insulin [place], Disposable, (BD ULTRA-FINE BENNY PEN NEEDLE) 32 [...] GRAFT 1 VEIN 1994 CABG, single graft, Sridhar Harris CORONARY ENDARTERCOMY OPEN ANY METHOD 07/03/2013 Angioplasty Xience stent to L circumflex EGD 04/26/2017 [facility] [address]. Nolan Triana EGD TRANSORAL BIOPSY SINGLE/MULTIPLE 07/10/07 PAST SURGICAL HISTORY OF 01/26/08 stent placement ramus and prox ramus PAST SURGICAL HISTORY OF heart stents PROSTATECTOMY PERINEAL RADICAL 1999 Prostatectomy, radical- Dr. 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 Yousif Triana; next screening colonoscopy in 10yrs, [facility] UNLISTED DIAGNOSTIC GASTROENTEROLOGY PROCEDURE 06/06/2018 FAMILY HISTORY [...] LIQUID Jocelin Lange PA-C documented in this encounterUniversity Hospitals Elyria Medical Center11-10-2022 Miscellaneous Notes* Telephone Encounter - Pao Noel [...] you. Pao Noel RN documented in this encounterUniversity Hospitals Elyria Medical Center09-22-2022 Miscellaneous Notes* Telephone Encounter - Pao Noel [...] 09/09/2021 15 Please advise. Thank you. Pao Noel, RN documented in this encounterUniversity Hospitals Elyria Medical Center08-23-2022 Instructions* Patient Instructions* Samson Ragsdale DO - 03/23/2022 3:16 PM EDT Increase dose of amlodipine to 10 mg in the evening for blood pressure. documented in this encounterUniversity Hospitals Elyria Medical Center08-23-2022 History of Present illness Narrative* Samson Ragsdale [...] ARTERY GRAFT 1 VEIN 1994 CABG, single graftSridhar Dr. CORONARY ENDARTERCOMY OPEN ANY METHOD 07/03/2013 Angioplasty Xience stent to L circumflex EGD 04/26/2017 [facility] [address]. Nolan Triana EGD TRANSORAL BIOPSY SINGLE/MULTIPLE 07/10/07 PAST SURGICAL HISTORY OF 01/26/08 stent placement ramus and prox ramus PAST SURGICAL HISTORY OF heart stents PROSTATECTOMY PERINEAL RADICAL 2000 Prostatectomy, radical- Dr. 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 Yousif Triana; next screening colonoscopy in 10yrs, [facility] UNLISTED DIAGNOSTIC GASTROENTEROLOGY PROCEDURE 06/06/2018 Social History [...] Rash Pravastatin Other: See Comments muscle aches Utpgubu-Oys-Ucc Red* Other: See Comments myalgia Current Meds: [...] (LIVER COMPLEX ORAL) Take by mouth. Insulin [place], Disposable, (BD ULTRA-FINE BENNY PEN NEEDLE) 32 [...] complication, without long-term current use of insulin ([facility]) - ICD9: 250.00, ICD10: E11.9 (primary diagnosis) [...] kidney disease) stage 4, GFR 15-29 ml/min ([facility]) - ICD9: 585.4, ICD10: N18.4 - f/u with [facility], hx of IV dye years ago with [...] with the plan. Samson Ragsdale DO [address] [place] [address] documented in this encounterUniversity [facility] Miscellaneous Notes* Telephone Encounter - Camille Harper [...] you. Camille Harper RN documented in this encounterUniversity [facility]als [facility]05-06-2022 Miscellaneous Notes* Telephone Encounter - Rama Belcher [...] on 12/15 with PCP. documented in this encounterUniversity [facility]als [facility]02-18-2021 History of Present illness Narrative* Abiola Hall [...] 18, 2020 3:04 PM documented in this encounterUniversity Hospitals [facility]11-09-2020 History of Present illness Narrative* Suzette Triplett (Rt), [place] - 06/09/2020 3:10 PM EST Radiology Service Progress Note PATIENT NAME: Abraham Gage DATE OF SERVICE: June 09, 2020 [...] 09, 2020 3:33 PM documented in this encounterUniversity Hospitals [facility]11-09-2020 History of Past illness Narrative* Problem Noted Date Resolved Date Stage 3b chronic kidney disease 06/09/2020 09/20/2022 Pain of left scapula 06/09/2020 09/20/2022 Acute gout of right foot 08/28/2019 023 Hypertension, essential 08/28/2019 06/05/20 20 Disorder of prostate 02/06/2019 06/05/2020 Essential hypertension 11/07/2018 11/05/202 0 Foot pain, right 08/07/2018 09/20/2022 Generalized [...] of this encounter (statuses as of 09/23/2022) [facility] of Past illness Narrative* Problem Noted [...] of this encounter (statuses as of 09/24/2022) [facility] of [facility] illness Narrative* Problem Noted [...] of this encounter (statuses as of 10/09/2022) [facility] of [facility] illness Narrative* Problem Noted [...] of this encounter (statuses as of 10/27/2022) [facility] of [facility] illness Narrative* Problem Noted [...] of this encounter (statuses as of 11/30/2022) [facility] of [facility] illness Narrative* Problem Noted [...] of this encounter (statuses as of 02/02/2023) [facility] of [facility] illness Narrative* Problem Noted [...] of this encounter (statuses as of 03/08/2023) [facility] of [facility] illness Narrative* Problem Noted [...] of this encounter (statuses as of 03/24/2023) [facility] of [facility] Narrative* Problem Noted [...] of this encounter (statuses as of 03/25/2023) [facility] of [facility] illness Narrative* Problem Noted [...] of this encounter (statuses as of 05/09/2023) [facility] of [facility] illness Narrative* Problem Noted [...] of this encounter (statuses as of 05/16/2023) [facility] Narrative* Problem Noted [...] of this encounter (statuses as of 06/01/2023) [facility] of [facility] Narrative* Problem Noted [...] of this encounter (statuses as of 06/05/2023) [facility] Narrative* Problem Noted [...] of this encounter (statuses as of 06/05/2023) [facility] Narrative* Problem Noted [...] of this encounter (statuses as of 06/21/2023) [facility] Narrative* Problem Noted [...] of this encounter (statuses as of 2023) [facility] Narrative* Problem Noted [...] of this encounter (statuses as of 07/21/2023) [facility] Narrative* Problem Noted [...] of this encounter (statuses as of 09/19/2023) [facility] Narrative* Problem Noted [...] of this encounter (statuses as of 10/07/2023) [facility] Narrative* Problem Noted [...] of this encounter (statuses as of 10/24/2023) [facility] Narrative* Problem Noted [...] of this encounter (statuses as of 11/15/2023) [facility] Narrative* Problem Noted [...] of this encounter (statuses as of 10/04/2023) [facility] Narrative* Problem Noted [...] of this encounter (statuses as of 12/04/2021) [facility] Narrative* Problem Noted [...] of this encounter (statuses as of 01/13/2022) [facility] Narrative* Problem Noted [...] of this encounter (statuses as of 03/25/2022) [facility] Narrative* Problem Noted [...] of this encounter (statuses as of 04/22/2022) [facility] Narrative* Problem Noted [...] of this encounter (statuses as of 06/10/2022) [facility] Narrative* Problem Noted [...] of this encounter (statuses as of 08/03/2022) [facility] Narrative* Problem Noted [...] of this encounter (statuses as of 08/06/2022) [facility] note* Diagnosis Controlled type 2 diabetes mellitus [...] iron deficiency anemia documented in this encounter [facility] note* Diagnosis Gout of multiple sites, unspecified cause, unspecified chronicity documented in this encounter [facility] note* Diagnosis CKD (chronic kidney disease) stage 4, GFR 15-29 ml/min (HCC) Chronic kidney disease, Stage IV (severe) Hypertensive heart disease without heart failure Unspecified hypertensive heart disease without heart failure documented in this encounter [facility] note* Diagnosis Bronchitis- Primary Bronchitis, not specified as acute or chronic documented in this encounter [facility] note* Diagnosis CKD (chronic kidney disease) stage [...] neoplasm of prostate documented in this encounter [facility] note* Diagnosis Controlled type 2 diabetes mellitus [...] arthropathy, multiple sites documented in this encounter [facility] note* Diagnosis 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, with long-term current use of insulin (HCC)- Primary [facility] Diagnosis Sinobronchitis- Primary Unspecified sinusitis (chronic) [facility]* Diagnosis Gout of multiple sites, unspecified cause, unspecified chronicity [facility]* Diagnosis Essential hypertension, benign- Primary CKD (chronic kidney disease) stage 4, GFR 15-29 ml/min ([facility]) Chronic kidney disease, Stage IV (severe) 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, with long-term current use of insulin ([facility]) documented in this encounter [facility]* Diagnosis SOB (shortness of breath)- Primary [...] (HCC) Malignant neoplasm of 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 (HCC) Other polyneuropathy Essential hypertension, benign Gout of multiple sites, unspecified cause, unspecified chronicity Arthritis, multiple joint involvement Unspecified arthropathy, multiple sites Vitamin D deficiency Unspecified vitamin D deficiency CKD (chronic kidney disease) stage 4, GFR 15-29 ml/min ([facility]) Chronic kidney disease, Stage IV (severe) documented in this encounter [facility]* Diagnosis Screening for ischemic heart disease- Primary [facility] Diagnosis SOB (shortness of breath) Shortness of breath Coronary artery 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 rich plaque Chest pain on breathing Painful respiration [facility] Diagnosis Bilateral carotid artery stenosis- Primary Occlusion and stenosis of carotid artery without mention of cerebral infarction Infrarenal abdominal aortic aneurysm (AAA) without rupture ([facility]) [facility] Diagnosis Hypertensive heart disease without heart failure Unspecified hypertensive heart disease without heart failure [facility]* Diagnosis Type 2 diabetes mellitus with stage 4 chronic kidney disease, with long-term current use of insulin (HCC)- Primary Malignant neoplasm of prostate (HCC) Malignant neoplasm of prostate Essential hypertension, benign History of prostate cancer Personal history of malignant neoplasm of prostate documented [facility] this [facility]* Diagnosis CKD (chronic kidney disease) stage 4, GFR 15-29 ml/min ([facility])- Primary Chronic kidney disease, Stage IV (severe) Hypertensive heart disease without heart failure Unspecified hypertensive heart disease without heart failure Essential hypertension, benign Diarrhea, unspecified type Complete atrioventricular block (HCC) Atrioventricular block, complete Malignant neoplasm of prostate (HCC) 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, with long-term current use of insulin (HCC) Atherosclerosis of [place]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[place] heart with angina pectoris (HCC) Coronary artery 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 rich plaque Other polyneuropathy Gout of multiple sites, unspecified cause, unspecified chronicity Arthritis, multiple joint involvement Unspecified arthropathy, multiple sites Tinnitus, bilateral Unspecified tinnitus Other specified hearing loss of both ears Actinic keratosis [facility] this encounter [facility]* Diagnosis 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, with long-term current use of insulin ([facility]) documented in this encounter [facility]* Diagnosis 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, with long-term current use of insulin (HCC)- Primary Essential hypertension, benign documented [facility] this encounter [facility]* Diagnosis Chronic diarrhea- Primary Diarrhea Generalized abdominal pain Abdominal pain, generalized Other polyneuropathy Hypertensive kidney disease with chronic kidney disease stage IV (HCC) Unspecified hypertensive kidney disease with chronic kidney disease stage I through stage IV, or unspecified Essential hypertension, benign Atherosclerosis of [place]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[place] heart with angina pectoris (HCC) Abdominal aortic aneurysm (AAA) without rupture, unspecified part (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, with long-term current use of insulin (HCC) Arthritis, multiple joint involvement Unspecified arthropathy, multiple sites Stage 3b chronic kidney disease (HCC) documented in this encounter [facility]* Diagnosis Gout of multiple sites, unspecified cause, unspecified chronicity documented in this encounter [facility]* Diagnosis 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, with long-term current use of insulin ([facility]) documented in this encounter [facility]* Diagnosis Gastroesophageal reflux disease without esophagitis- Primary Esophageal reflux Chronic diarrhea Diarrhea Generalized abdominal pain Abdominal pain, generalized documented in this encounter [facility]* Diagnosis SOB (shortness of breath) Shortness of breath Coronary artery 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 rich plaque Chest pain on breathing Painful respiration 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 Bilateral chronic knee pain Pain in joint, lower leg documented in this encounter [facility] note* Diagnosis Hypertensive heart disease without heart failure Unspecified hypertensive heart disease without heart failure documented in this encounter [facility]* Diagnosis Cough documented in this encounter [facility] note* Diagnosis Pain of left scapula Disorder of bone and cartilage, unspecified Neck pain of over 3 months duration documented in this encounter [facility]* Diagnosis Cough documented in this encounter [facility] note* Diagnosis Pre-operative examination- Primary Preoperative examination, unspecified Other polyneuropathy Abdominal aortic aneurysm (AAA) without rupture, unspecified part (HCC) 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 [...] Assessment & Plan Note - Obdulia Lauren APRN.JAIRON - 05/11/2024 10:15 AM EDT Associated Problem(s): Complete atrioventricular block (HCC) Assessment: per PCP note 09/2023 this is stable, but no mention in public transit specialist notes of this. Pt has no h/o pacemaker/defibrillator. * Assessment & Plan Note - Obdulia Lauren APRN.CNP - 05/11/2024 10:13 AM EDT Associated Problem(s): Atherosclerosis of [place]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[place] heart with angina pectoris (HCC) Assessment: s/p CABG 1994 and then followed a stent 2007, daily Plavix, received to hold Plavix 5 days and replace with Aspirin 81mg. Following [facility] routinely. Last OV scanned into [facility]2023 and AC instructions and clearance scanned into [facility] as well 04/16/2024 * Assessment & Plan Note - Obdulia Lauern APRN.CNP - 05/11/2024 10:11 AM EDT Associated Problem(s): Abdominal aortic aneurysm (AAA) without rupture (HCC) Assessment: under surveillance 10/04/2023 abd aorta US AORTA Abdominal aortic aneurysm measuring 4.3cm at mid. * Assessment & Plan Note - Obdulia Lauren APRN.CNP - 05/11/2024 10:11 AM EDT Associated Problem(s): Peripheral neuropathy Assessment: 2/2 DM, no tx documented [facility] this encounter [facility] Diagnosis Bilateral carotid artery stenosis- Primary Occlusion and stenosis of carotid artery without mention of cerebral infarction Infrarenal abdominal aortic aneurysm (AAA) without rupture (HCC) documented in this encounter [facility] note* Diagnosis Pre-operative examination- Primary Preoperative examination, unspecified Other polyneuropathy Abdominal aortic aneurysm (AAA) without rupture, unspecified part (HCC) 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 [...] esophagitis Esophageal reflux documented in this encounter [facility]* Diagnosis Pre-operative examination- Primary Preoperative examination, unspecified Other polyneuropathy Abdominal aortic aneurysm (AAA) without rupture, unspecified part (HCC) 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 [...] gastroenteritis and colitis documented in this encounter [facility] note* Diagnosis Pre-operative examination- Primary Preoperative examination, unspecified Other polyneuropathy Abdominal aortic aneurysm (AAA) without rupture, unspecified part (HCC) 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 [...] gastroenteritis and colitis documented in this encounter [facility] note* Diagnosis Pre-operative examination- Primary Preoperative examination, unspecified Other polyneuropathy Abdominal aortic aneurysm (AAA) without rupture, unspecified part (HCC) 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 [...] neoplasm of prostate documented in this encounter [facility] Diagnosis Pre-operative examination- Primary Preoperative examination, unspecified Other polyneuropathy Abdominal aortic aneurysm (AAA) without rupture, unspecified part (HCC) 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 [...] sites, unspecified cause, unspecified chronicity Atherosclerosis of [place]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[place] heart with angina pectoris (HCC) Pure hypercholesterolemia Vitamin D deficiency Unspecified vitamin D deficiency documented in this encounter [facility]* Diagnosis Pre-operative examination- Primary Preoperative examination, unspecified Other polyneuropathy Abdominal aortic aneurysm (AAA) without rupture, unspecified part 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 insulin (HCC) documented in this encounter [facility]* Diagnosis Pre-operative examination- Primary Preoperative examination, unspecified Other polyneuropathy Abdominal aortic aneurysm (AAA) without rupture, unspecified part 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 [...] Upper back pain documented in this encounter [facility]* Diagnosis Pre-operative examination- Primary Preoperative examination, unspecified Other polyneuropathy Abdominal aortic aneurysm (AAA) without rupture, unspecified part 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 Charles Hospital Work Phone: Evaluation note* Diagnosis Onset Date Resolution Status Admit Date Dyspnea acute January 15 1:22pm Abdominal aortic aneurysm chronic January 15, 2025 1:22pm Carotid bruit chronic January 15, 2025 1:22pm Chronic kidney disease chronic Ju ne 2024 1:22pm Coronary artery disease chronic J une 2024 1:22pm Dyslipidemia chronic January 15 025 1:22pm History of diabetes mellitus chronic January 15, 2025 1:22pm Hypertension chronic January 15 025 1:22pm [facility] Work Phone: Evaluation note* Diagnosis Pre-operative examination- Primary Preoperative examination, unspecified Other polyneuropathy Abdominal aortic aneurysm (AAA) without rupture, unspecified part 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 [...] elsewhere, unspecified severity, with mood disturbance (HCC) SOB (shortness of breath)- Primary Shortness of breath Atherosclerosis of [place]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[place] heart with angina pectoris Hypertensive kidney disease with chronic kidney disease stage IV (HCC) Unspecified hypertensive kidney disease with chronic kidney disease stage I through stage IV, or unspecified Stented coronary artery Postsurgical percutaneous transluminal coronary angioplasty status Dysphagia, unspecified type Vision changes Unspecified visual disturbance documented in this encounter [facility] course Narrative No data available for this section [facility] Discharge instructions Additional Instructions Your tests are consistent with your prior labs. No acute cause for your shortness of breath. Follow-up with your public transit specialist.[facility] Work Phone: Reason for referral (narrative)* Outpatient Procedure (Routine) [...] ART COMPL BI STUDY Samson Ragsdale DO [address] [place] [address] [facility] [address] [address] Referral ID Status Reason Start Date Expiration Date Visits Requested Visits Authorized [id number] Authorized Auto-Generat ed Referral 09/22/2022 09/22/2023 1 1 * Outpatient Procedure (Routine) - Authorized Specialty Diagnoses / Procedures Referred By Contac t Referred To Contact [facility] Diagnoses Hypertensive heart disease without heart failure Essential hypertension, benign Abdominal aortic aneurysm (AAA) without rupture, unspecified part (HCC) Atherosclerosis of common carotid artery Coronary artery 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 rich plaque Procedures US ABD AORTA COMPLETE VAS LAB DUP-SCAN AORTA IVC ILIAC VASCL/BPGS COMPLETE Samson Ragsdale DO [address] [place] [address] [facility] [address] [address] Referral ID Status Reason Start Date Expiration Date Visits Requested Visits Authorized [id number] Authorized Auto-Generat ed Referral 09/22/2022 09/22/2023 1 1 [facility] for referral (narrative)* Outpatient Procedure (Routine) - Authorized Specialty Diagnoses / Procedures Referred By Contac t Referred To Contact [facility] Diagnoses SOB (shortness of breath) Coronary artery 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 rich plaque Chest pain on breathing Procedures ECG COMPLETE ECG ROUTINE ECG W/LEAST 12 LDS W/I&R Samson Ragsdale DO [address] [place] [address] [facility] [address] [address] Referral ID Status Reason Start Date Expiration Date Visits Requested Visits Authorized [id number] Authorized Auto-Generat ed Referral 03/23/2023 03/22/2024 1 1 * Diagnostic Procedure Only (Routine) - Closed Specialty Diagnoses / Procedures Referred By Contac t Referred To Contact [facility] IM[facility] Diagnoses Bilateral chronic knee pain Procedures XR KNEE GENERAL 4V AP BOTH/PA BOTH/LAT/MERC BILATERAL RADIOLOGIC EXAM KNEE COMPLETE 4/MORE VIEWS Samson Ragsdale DO [address] [place] [address] [place] [address] Referral ID Status Reason Start Date Expiration Date V isits Requested Visits Authorized [id number] Closed Auto-Generate d Referral 03/23/2023 04/21/2024 1 1 * Diagnostic Procedure Only (Routine) - Closed Specialty Diagnoses / Procedures Referred By Contac t Referred To Contact XR IMAGING Diagnoses 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 Procedures XR LUMBAR GENERAL 3V AP/LAT/L5-S1 RADEX SPINE LUMBOSACRAL 2/3 VIEWS Samson Ragsdale DO [address] [place] [address] [place] [address] Referral ID Status Reason Start Date Expiration Date V isits Requested Visits Authorized [id number] Closed Auto-Generate d Referral 03/23/2023 04/21/2024 1 1 * Diagnostic Procedure Only (Routine) - Authorized Specialty Diagnoses / Procedures Referred By Contac t Referred To Contact MOLECULAR & FUNCTIONAL IMAGING Diagnoses SOB (shortness of breath) Coronary artery 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 rich plaque Chest pain on breathing Procedures NM CARDIAC PERF STRESS/PHARM MYOCARDIAL SPECT MULTIPLE STUDIES Samson Ragsdale DO [address] [place] [address] Molecular & Functional Imaging [address] [place], [place] [id number] Referral ID Status Reason Start Date Expiration Date Visits Requested Visits Authorized [id number] Authorized Auto-Generat ed Referral 03/23/2023 04/21/2024 1 1 * Outpatient Procedure (Routine) - Authorized Specialty Diagnoses / Procedures Referred By Contac t Referred To Contact [facility] Diagnoses SOB (shortness of breath) Coronary artery 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 rich plaque Chest pain on breathing Procedures ECHO ECHO TTHRC R-T 2D W/WOM-MODE COMPL SPEC&COLR D Samson Ragsdale, DO [address] [place] [address] [facility] [place] [address] [place] [id number] Referral ID Status Reason Start Date Expiration Date Visits Requested Visits Authorized [id number] Authorized Auto-Generat ed Referral 03/23/2023 03/22/2024 1 1 [facility] for referral (narrative)* Diagnostic Procedure Only (Routine) - Closed Specialty Diagnoses / Procedures [facility] To Contact MOLECULAR & FUNCTIONAL IMAGING Diagnoses SOB (shortness of breath) Coronary artery 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 rich plaque Chest pain on breathing Procedures NM CARDIAC PERF STRESS/PHARM MYOCARDIAL SPECT MULTIPLE STUDIES Samson Ragsdale, DO [address] [place] [address] Molecular & Functional Imaging [address] [place] [address] Referral ID Status Reason Start Date Expiration Date V isits Requested Visits Authorized [id number] Closed Auto-Generate d Referral 03/23/2023 04/21/2024 1 1 [facility] for referral (narrative)* Outpatient Procedure (Routine) - Authorized Specialty Diagnoses / Procedures [facility] Ref[facility] To Contact [facility] Diagnoses Infrarenal abdominal aortic aneurysm (AAA) without rupture (HCC) Procedures US ABD AORTA COMPLETE VAS LAB DUP-SCAN AORTA IVC ILIAC VASCL/BPGS COMPLETE Brittany West, DO [address] [place] [address] [address] Referral ID Status Reason Start Date Expiration Date Visits Requested Visits Authorized [id number] Authorized Auto-Generat ed Referral 3 05/30/2024 1 1 * Outpatient Procedure (Routine) - Authorized Specialty Diagnoses / Procedures Referred By Contac t Referred To Contact [facility] Diagnoses Bilateral carotid artery stenosis Procedures US CAROTID ARTERIES MELISSA VAS LAB DUPLEX SCAN EXTRACRANIAL ART COMPL BI STUDY Brittany West DO [address] [place] [address] [address] Referral ID Status Reason Start Date Expiration Date Visits Requested Visits Authorized [id number] Authorized Auto-Generat ed Referral 3 05/30/2024 1 1 [facility] for referral (narrative)* Outpatient Procedure (Routine) - Authorized Specialty Diagnoses / Procedures Referred By Contac t Referred To Contact [facility] Diagnoses Generalized abdominal pain Gastroesophageal reflux disease without esophagitis Procedures EGD DIAGNOSTIC ESOPHAGOGASTRODUODENOSC OPY TRANSORAL DIAGNOSTIC Cristela Andersen APRN.CNP [address] [place] [address] [facility] Disease [address] [address] Referral ID Status Reason Start Date Expiration Date Visits Requested Visits Authorized [id number] Authorized Auto-Generat ed Referral 04/16/2024 04/16/2025 1 1 * Outpatient Procedure (Routine) - Authorized Specialty Diagnoses / Procedures Referred By Contac t Referred To Contact [facility] Diagnoses Chronic diarrhea Generalized abdominal pain Procedures COLONOSCOPY DIAGNOSTIC COLONOSCOPY FLX DX W/COLLJ SPEC WHEN PFRMCristela Garcia, SURGEON'S ASSISTANT.BATTERY CONTAINER TESTER ALUMINUM [address] [place] [address] [facility] [place] [address] [place] [address] Referral ID Status Reason Start Date Expiration Date Visits Requested Visits Authorized [id number] Authorized Auto-Generat ed Referral 04/16/2024 04/16/2025 1 1 [facility] for referral (narrative)* Diagnostic Procedure Only (Routine) - Closed Specialty Diagnoses / Procedures Referred By Contac t Referred To Contact XR IMAGING Diagnoses Bilateral chronic knee pain Procedures XR KNEE GENERAL 4V AP BOTH/PA BOTH/LAT/MERC BILATERAL RADIOLOGIC EXAM KNEE COMPLETE 4/MORE VIEWS Samson Ragsdale, DO [address] [place] [address] [facility] Referral ID Status Reason Start Date Expiration Date V isits Requested Visits Authorized [id number] Closed Auto-Generate d Referral 03/23/2023 04/21/2024 1 1 * Diagnostic Procedure Only (Routine) - Closed Specialty Diagnoses / Procedures Referred By Contac t Referred To Contact XR IMAGING Diagnoses 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 Procedures XR LUMBAR GENERAL 3V AP/LAT/L5-S1 RADEX SPINE LUMBOSACRAL 2/3 VIEWS Samson Ragsdale DO [address] [place] [address] [facility] Referral ID Status Reason Start Date Expiration Date V isits Requested Visits Authorized [id number] Closed Auto-Generate d Referral 03/23/2023 04/21/2024 1 1 [facility] for referral (narrative)* Outpatient Procedure (Routine) - Pending Review Specialty Diagnoses / Procedures Referred By Contac t Referred To Contact [facility] Diagnoses Bilateral carotid artery stenosis Procedures US CAROTID ARTERIES MELISSA VAS LAB DUPLEX SCAN EXTRACRANIAL ART COMPL BI STUDY West, Brittany D, DO [address] [place] [address] [place] [phone] Referral ID Status Reason Start Date Expiration Date Visits Requested Visits Authorized [id number] Pending Review Auto-Generat ed Referral 10/04/2023 10/03/2024 1 1 * Outpatient Procedure (Routine) - Pending Review Specialty Diagnoses / Procedures Referred By Contac t Referred To Contact [facility] Diagnoses Infrarenal abdominal aortic aneurysm (AAA) without rupture (HCC) Procedures US ABD AORTA COMPLETE VAS LAB DUP-SCAN AORTA IVC ILIAC VASCL/BPGS COMPLETE Brittany West DO [address] [place] [address] [place] [phone] Referral ID Status Reason Start Date Expiration Date Visits Requested Visits Authorized [id number] Pending Review Auto-Generat ed Referral 10/04/2023 10/03/2024 1 1 [facility] for referral (narrative)* Outpatient Procedure (Routine) - Closed Specialty Diagnoses / Procedures Referred By Contac t Referred To Contact [facility] Diagnoses Generalized abdominal pain Gastroesophageal reflux disease without esophagitis Procedures EGD DIAGNOSTIC ESOPHAGOGASTRODUODENOSC OPY TRANSORAL DIAGNOSTIC Cristela Andersen, SAMUEL [address] [place] [address] [facility] [place] [address] [place] [address] Referral ID Status Reason Start Date Expiration Date V isits Requested Visits Authorized [id number] Closed Auto-Generate d Referral 04/16/2024 04/16/2025 1 1 * Outpatient Procedure (Routine) - Closed Specialty Diagnoses / Procedures Referred By Contac t Referred To Contact [facility] Diagnoses Chronic diarrhea Generalized abdominal pain Procedures COLONOSCOPY DIAGNOSTIC COLONOSCOPY FLX DX W/COLLJ SPEC WHEN Cristela Shaikh APRN.CNP [address] [place] [address] [facility] [place] [address] [place] [address] Referral ID Status Reason Start Date Expiration Date V isits Requested Visits Authorized [id number] Closed Auto-Generate d Referral 04/16/2024 04/16/2025 1 1 [facility] for referral (narrative)No reason for referral information [facility]WSt. [facility] Work Phone: Reason for visit Narrative* Diagnostic Procedure Only (Routine) - Closed Specialty Diagnoses / Procedures Referred By Contac t Referred To Contact MOLECULAR & FUNCTIONAL IMAGING Diagnoses SOB (shortness of breath) Coronary artery 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 rich plaque Chest pain on breathing Procedures NM CARDIAC PERF STRESS/PHARM MYOCARDIAL SPECT MULTIPLE STUDIES Samson Ragsdale, DO [address] [place] [address] Molecular [facility] Functional Imaging [address] [place] [phone] Referral ID Status Reason Start Date Expiration Date V isits Requested Visits Authorized [id number] Closed Auto-Generate d Referral 03/23/2023 04/21/2024 1 1 [facility] for visit Narrative* Diagnostic Procedure Only (Routine) - Closed Specialty Diagnoses / Procedures Referred By Contac t Referred To Contact XR IMAGING Diagnoses Bilateral chronic knee pain Procedures XR KNEE GENERAL 4V AP BOTH/PA BOTH/LAT/MERC BILATERAL RADIOLOGIC EXAM KNEE COMPLETE 4/MORE VIEWS Samson Ragsdale, DO [address] [place] [address] [place] [address] Referral ID Status Reason Start Date Expiration Date V isits Requested Visits Authorized [id number] Closed Auto-Generate d Referral 03/23/2023 04/21/2024 1 1 [facility] for visit Narrative* Outpatient Procedure (Routine) - Closed Specialty Diagnoses / Procedures Referred By Contac t Referred To Contact [facility] Diagnoses Chronic diarrhea Generalized abdominal pain Procedures COLONOSCOPY DIAGNOSTIC COLONOSCOPY FLX DX W/COLLJ SPEC WHEN PFRMD Cristela Andersen APRN.BATTERY CONTAINER TESTER [employer] [address] [facility] [place] [address] [facility] [place] [address] [place] [address] Referral ID Status Reason Start Date Expiration Date V isits Requested Visits Authorized [id number] Closed Auto-Generate d Referral 04/16/2024 04/16/2025 1 1 [facility] for visit Narrative* Diagnostic Procedure Only (Routine) - Closed Specialty Diagnoses / Procedures Referred By Contac t Referred To Contact XR IMAGING Diagnoses Upper back pain Procedures XR THORACIC GENERAL 3V AP/LAT/SWIMMERS RADEX SPINE THORACIC 3 VIEWS Theodora Hernandez, SURGEON'S ASSISTANT.BATTERY CONTAINER TESTER [employer]UMINUM [address] [place] [address] Phone: tel: fax: [place] [phone] Referral ID Status Reason Start Date Expiration Date V isits Requested Visits Authorized [id number] Closed Auto-Generate d Referral 11/26/2024 12/26/2025 1 1 [facility] Summary Purpose Family History Relationship Condition Age at Onset Recorded Date/T gonzalo father Arthritis Unknown mother Hypertension Unknown grandmother Diabetes mellitus Unknown No Family History Records Found Advance Directives Advance Directive Response Recorded Date/ Time Do you have a Healthcare Power of Vice President & General Manager [employer]? No January 14, 2025 1:24am Reason for Referral Specialty Diagnoses / Procedures Referred By Contac t Referred To Contact Diagnoses Lymphocytic colitis Cristela Andersen, SURGEON'S ASSISTANT.BATTERY CONTAINER TESTER [employer] [address] [facility] [place] [address] Referral ID Status Reason Start Date Expiration Date Visits Re quested Visits Authorized [id number] Closed 1 1 Specialty Diagnoses / Procedures Referred By Contac t Referred To Contact General Surgery Diagnoses Chronic diarrhea Generalized abdominal pain Procedures CONSULT TO GENERAL SURGERY OFFICE/OUTPATIENT [facility] HIGH MDM 60 MINUTES Samson Ragsdale, [address] [place] [address] Referral ID Status Reason Start Date Expiration Date Visits Requested Visits Authorized [id number] Authorized PCP Requested Referral 03/26/2024 03/26/2025 1 1 Chief Complaint and Reason for Visit Chief Complaint Admit Date SOB January 13, 2025 10:1 1pm Chief Complaint Admit Date SOB January 13, 2025 10:1 1pm Shortness of breath January 15, 2025 1:22 pm Reason for Visit Admit Date Dyspnea January 15, 2025 1:22 pm Abdominal aortic aneurysm January 15 1:22pm Carotid bruit January 15, 2025 1:22 pm Chronic kidney disease January 15, 2025 1 :22pm Coronary artery disease January 15, 2025 1:22pm Dyslipidemia January 15, 2025 1:22 pm History of diabetes mellitus January 15, 2025 1:22pm Hypertension January 15, 2025 1:22 pm Additional Source Comments Source Comments (unrecognize d section and content) In the event this informatio n is protected by the Federal Confidentiality of Alcohol and Drug Abuse Patient Records regulations: The Federal rules restrict any use of the information to criminally investigate or prosecute any alcohol or drug abuse patient.[facility] Center[facility] the event this information is protected by the Federal Confidentiality of Alcohol and Drug Abuse Patient Records regulations: The Federal rules restrict any use of the information to criminally investigate or prosecute any alcohol or drug abuse patient.[facility] CenterIn the event this information is protected by the Federal Confidentiality of Alcohol and Drug Abuse Patient Records regulations: The Federal rules restrict any use of the information to criminally investigate or prosecute any alcohol or drug abuse patient.[facility] CenterIn the event this information is protected by the Federal Confidentiality of Alcohol and Drug Abuse Patient Records regulations: The Federal rules restrict any use of the information to criminally investigate or prosecute any alcohol or drug abuse patient.[facility] CenterIn the event this information is protected by the Federal Confidentiality of Alcohol and Drug Abuse Patient Records regulations: The Federal rules restrict any use of the information to criminally investigate or prosecute any alcohol or drug abuse patient.[facility] CenterIn the event this information is protected by the Federal Confidentiality of Alcohol and Drug Abuse Patient Records regulations: The Federal rules restrict any use of the information to criminally investigate or prosecute any alcohol or drug abuse patient.[facility] CenterIn the event this information is protected by the Federal Confidentiality of Alcohol and Drug Abuse Patient Records regulations: The Federal rules restrict any use of the information to criminally investigate or prosecute any alcohol or drug abuse patient.[facility] CenterIn the event this information is protected by the Federal Confidentiality of Alcohol and Drug Abuse Patient Records regulations: The Federal rules restrict any use of the information to criminally investigate or prosecute any alcohol or drug abuse patient.[facility] CenterIn the event this information is protected by the Federal Confidentiality of Alcohol and Drug Abuse Patient Records regulations: The Federal rules restrict any use of the information to criminally investigate or prosecute any alcohol or drug abuse patient.[facility] CenterIn the event this information is protected by the Federal Confidentiality of Alcohol and Drug Abuse Patient Records regulations: The Federal rules restrict any use of the information to criminally investigate or prosecute any alcohol or drug abuse patient.[facility] CenterIn the event this information is protected by the Federal Confidentiality of Alcohol and Drug Abuse Patient Records regulations: The Federal rules restrict any use of the information to criminally investigate or prosecute any alcohol or drug abuse patient.[facility] CenterIn the event this information is protected by the Federal Confidentiality of Alcohol and Drug Abuse Patient Records regulations: The Federal rules restrict any use of the information to criminally investigate or prosecute any alcohol or drug abuse patient.[facility] CenterIn the event this information is protected by the Federal Confidentiality of Alcohol and Drug Abuse Patient Records regulations: The Federal rules restrict any use of the information to criminally investigate or prosecute any alcohol or drug abuse patient.[facility] CenterIn the event this information is protected by the Federal Confidentiality of Alcohol and Drug Abuse Patient Records regulations: The Federal rules restrict any use of the information to criminally investigate or prosecute any alcohol or drug abuse patient.[facility] CenterIn the event this information is protected by the Federal Confidentiality of Alcohol and Drug Abuse Patient Records regulations: The Federal rules restrict any use of the information to criminally investigate or prosecute any alcohol or drug abuse patient.[facility] CenterIn the event this information is protected by the Federal Confidentiality of Alcohol and Drug Abuse Patient Records regulations: The Federal rules restrict any use of the information to criminally investigate or prosecute any alcohol or drug abuse patient.[facility] CenterIn the event this information is protected by the Federal Confidentiality of Alcohol and Drug Abuse Patient Records regulations: The Federal rules restrict any use of the information to criminally investigate or prosecute any alcohol or drug abuse patient.[facility] CenterIn the event this information is protected by the Federal Confidentiality of Alcohol and Drug Abuse Patient Records regulations: The Federal rules restrict any use of the information to criminally investigate or prosecute any alcohol or drug abuse patient.[facility] CenterIn the event this information is protected by the Federal Confidentiality of Alcohol and Drug Abuse Patient Records regulations: The Federal rules restrict any use of the information to criminally investigate or prosecute any alcohol or drug abuse patient.[facility] CenterIn the event this information is protected by the Federal Confidentiality of Alcohol and Drug Abuse Patient Records regulations: The Federal rules restrict any use of the information to criminally investigate or prosecute any alcohol or drug abuse patient.[facility] CenterIn the event this information is protected by the Federal Confidentiality of Alcohol and Drug Abuse Patient Records regulations: The Federal rules restrict any use of the information to criminally investigate or prosecute any alcohol or drug abuse patient.[facility] CenterIn the event this information is protected by the Federal Confidentiality of Alcohol and Drug Abuse Patient Records regulations: The Federal rules restrict any use of the information to criminally investigate or prosecute any alcohol or drug abuse patient.[facility] CenterIn the event this information is protected by the Federal Confidentiality of Alcohol and Drug Abuse Patient Records regulations: The Federal rules restrict any use of the information to criminally investigate or prosecute any alcohol or drug abuse patient.[facility] CenterIn the event this information is protected by the Federal Confidentiality of Alcohol and Drug Abuse Patient Records regulations: The Federal rules restrict any use of the information to criminally investigate or prosecute any alcohol or drug abuse patient.[facility] CenterIn the event this information is protected by the Federal Confidentiality of Alcohol and Drug Abuse Patient Records regulations: The Federal rules restrict any use of the information to criminally investigate or prosecute any alcohol or drug abuse patient.[facility] CenterIn the event this information is protected by the Federal Confidentiality of Alcohol and Drug Abuse Patient Records regulations: The Federal rules restrict any use of the information to criminally investigate or prosecute any alcohol or drug abuse patient.[facility] CenterIn the event this information is protected by the Federal Confidentiality of Alcohol and Drug Abuse Patient Records regulations: The Federal rules restrict any use of the information to criminally investigate or prosecute any alcohol or drug abuse patient.[facility] CenterIn the event this information is protected by the Federal Confidentiality of Alcohol and Drug Abuse Patient Records regulations: The Federal rules restrict any use of the information to criminally investigate or prosecute any alcohol or drug abuse patient.[facility] CenterIn the event this information is protected by the Federal Confidentiality of Alcohol and Drug Abuse Patient Records regulations: The Federal rules restrict any use of the information to criminally investigate or prosecute any alcohol or drug abuse patient.[facility] CenterIn the event this information is protected by the Federal Confidentiality of Alcohol and Drug Abuse Patient Records regulations: The Federal rules restrict any use of the information to criminally investigate or prosecute any alcohol or drug abuse patient.[facility] CenterIn the event this information is protected by the Federal Confidentiality of Alcohol and Drug Abuse Patient Records regulations: The Federal rules restrict any use of the information to criminally investigate or prosecute any alcohol or drug abuse patient.[facility] CenterIn the event this information is protected by the Federal Confidentiality of Alcohol and Drug Abuse Patient Records regulations: The Federal rules restrict any use of the information to criminally investigate or prosecute any alcohol or drug abuse patient.[facility] CenterIn the event this information is protected by the Federal Confidentiality of Alcohol and Drug Abuse Patient Records regulations: The Federal rules restrict any use of the information to criminally investigate or prosecute any alcohol or drug abuse patient.[facility] CenterIn the event this information is protected by the Federal Confidentiality of Alcohol and Drug Abuse Patient Records regulations: The Federal rules restrict any use of the information to criminally investigate or prosecute any alcohol or drug abuse patient.[facility] CenterIn the event this information is protected by the Federal Confidentiality of Alcohol and Drug Abuse Patient Records regulations: The Federal rules restrict any use of the information to criminally investigate or prosecute any alcohol or drug abuse patient.[facility] CenterIn the event this information is protected by the Federal Confidentiality of Alcohol and Drug Abuse Patient Records regulations: The Federal rules restrict any use of the information to criminally investigate or prosecute any alcohol or drug abuse patient.[facility] CenterIn the event this information is protected by the Federal Confidentiality of Alcohol and Drug Abuse Patient Records regulations: The Federal rules restrict any use of the information to criminally investigate or prosecute any alcohol or drug abuse patient.[facility] CenterIn the event this information is protected by the Federal Confidentiality of Alcohol and Drug Abuse Patient Records regulations: The Federal rules restrict any use of the information to criminally investigate or prosecute any alcohol or drug abuse patient.[facility] CenterIn the event this information is protected by the Federal Confidentiality of Alcohol and Drug Abuse Patient Records regulations: The Federal rules restrict any use of the information to criminally investigate or prosecute any alcohol or drug abuse patient.[facility] CenterIn the event this information is protected by the Federal Confidentiality of Alcohol and Drug Abuse Patient Records regulations: The Federal rules restrict any use of the information to criminally investigate or prosecute any alcohol or drug abuse patient.[facility] CenterIn the event this information is protected by the Federal Confidentiality of Alcohol and Drug Abuse Patient Records regulations: The Federal rules restrict any use of the information to criminally investigate or prosecute any alcohol or drug abuse patient.[facility] CenterIn the event this information is protected by the Federal Confidentiality of Alcohol and Drug Abuse Patient Records regulations: The Federal rules restrict any use of the information to criminally investigate or prosecute any alcohol or drug abuse patient.[facility] CenterIn the event this information is protected by the Federal Confidentiality of Alcohol and Drug Abuse Patient Records regulations: The Federal rules restrict any use of the information to criminally investigate or prosecute any alcohol or drug abuse patient.[facility] CenterIn the event this information is protected by the Federal Confidentiality of Alcohol and Drug Abuse Patient Records regulations: The Federal rules restrict any use of the information to criminally investigate or prosecute any alcohol or drug abuse patient.[facility] CenterIn the event this information is protected by the Federal Confidentiality of Alcohol and Drug Abuse Patient Records regulations: The Federal rules restrict any use of the information to criminally investigate or prosecute any alcohol or drug abuse patient.[facility] CenterIn the event this information is protected by the Federal Confidentiality of Alcohol and Drug Abuse Patient Records regulations: The Federal rules restrict any use of the information to criminally investigate or prosecute any alcohol or drug abuse patient.[facility] CenterIn the event this information is protected by the Federal Confidentiality of Alcohol and Drug Abuse Patient Records regulations: The Federal rules restrict any use of the information to criminally investigate or prosecute any alcohol or drug abuse patient.[facility] CenterIn the event this information is protected by the Federal Confidentiality of Alcohol and Drug Abuse Patient Records regulations: The Federal rules restrict any use of the information to criminally investigate or prosecute any alcohol or drug abuse patient.[facility] CenterIn the event this information is protected by the Federal Confidentiality of Alcohol and Drug Abuse Patient Records regulations: The Federal rules restrict any use of the information to criminally investigate or prosecute any alcohol or drug abuse patient.[facility] the event this information is protected by the Federal Confidentiality of Alcohol and Drug Abuse Patient Records regulations: The Federal rules restrict any use of the information to criminally investigate or prosecute any alcohol or drug abuse patient.[facility] CenterIn the event this information is protected by the Federal Confidentiality of Alcohol and Drug Abuse Patient Records regulations: The Federal rules restrict any use of the information to criminally investigate or prosecute any alcohol or drug abuse patient.[facility] CenterIn the event this information is protected by the Federal Confidentiality of Alcohol and Drug Abuse Patient Records regulations: The Federal rules restrict any use of the information to criminally investigate or prosecute any alcohol or drug abuse patient.[facility] CenterIn the event this information is protected by the Federal Confidentiality of Alcohol and Drug Abuse Patient Records regulations: The Federal rules restrict any use of the information to criminally investigate or prosecute any alcohol or drug abuse patient.[facility] CenterIn the event this information is protected by the Federal Confidentiality of Alcohol and Drug Abuse Patient Records regulations: The Federal rules restrict any use of the information to criminally investigate or prosecute any alcohol or drug abuse patient.[facility] CenterIn the event this information is protected by the Federal Confidentiality of Alcohol and Drug Abuse Patient Records regulations: The Federal rules restrict any use of the information to criminally investigate or prosecute any alcohol or drug abuse patient.[facility] CenterIn the event this information is protected by the Federal Confidentiality of Alcohol and Drug Abuse Patient Records regulations: The Federal rules restrict any use of the information to criminally investigate or prosecute any alcohol or drug abuse patient.[facility] CenterIn the event this information is protected by the Federal Confidentiality of Alcohol and Drug Abuse Patient Records regulations: The Federal rules restrict any use of the information to criminally investigate or prosecute any alcohol or drug abuse patient.[facility] CenterIn the event this information is protected by the Federal Confidentiality of Alcohol and Drug Abuse Patient Records regulations: The Federal rules restrict any use of the information to criminally investigate or prosecute any alcohol or drug abuse patient.[facility] CenterIn the event this information is protected by the Federal Confidentiality of Alcohol and Drug Abuse Patient Records regulations: The Federal rules restrict any use of the information to criminally investigate or prosecute any alcohol or drug abuse patient.[facility] CenterIn the event this information is protected by the Federal Confidentiality of Alcohol and Drug Abuse Patient Records regulations: The Federal rules restrict any use of the information to criminally investigate or prosecute any alcohol or drug abuse patient.[facility] CenterIn the event this information is protected by the Federal Confidentiality of Alcohol and Drug Abuse Patient Records regulations: The Federal rules restrict any use of the information to criminally investigate or prosecute any alcohol or drug abuse patient.[facility] Reason for Visit (unrecogniz ed section and [...] MYOCARDIAL SPECT MULTIPLE STUDIES Samson Ragsdale, DO [address] [place] [address] [facility] [address] [place] [id number] Referral ID Status Reason Start Date Expiration Date V isits Requested Visits Authorized [id number] Closed Auto-Generate d Referral 03/23/2023 04/21/2024 1 [...] pain Procedures CONSULT TO GENERAL SURGERY OFFICE/OUTPATIENT [facility] HIGH MDM 60 MINUTES Samson Ragsdale, DO [address] [place] [address] Referral ID Status Reason Start Date Expiration Date V isits Requested Visits Authorized [id number] Closed PCP Requested Referral 03/26/2024 03/26/2025 1 [...] Comments Population Health Navigation Outreach 12/10/2024 [facility] [place] [facility] Reason Comments Cough Cough, chest congest ion and SOB x 10 days Reason Comments ER F/U Care Teams (unrecognized sec tion and content) Studio Model Relationship Specialty Start Date End Date Samson Ragsdale DO [address] [place] [address] PCP - General Family Practice 10/09/14 Studio Model Relationship Specialty Start Date End Date Samson Ragsdale DO [address] [place] [address] PCP - General Family Practice 10/09/14 Studio Model Relationship Specialty Start Date End Date Samson Ragsdale DO [address] [place] [address] PCP - General Family Practice 10/09/14 Studio Model Relationship Specialty Start Date End Date Samson Ragsdale DO [address] [place] [address] PCP - General Family Medicine 10/09/14 Studio Model Relationship Specialty Start Date End Date Samson Ragsdale, DO [address] [place] [address] PCP - General Family Medicine 10/09/14 Studio Model Relationship Specialty Start Date End Date Samson Ragsdale, DO [address] [place] [address] PCP - General Family Medicine 10/09/14 Studio Model Relationship Specialty Start Date End Date Samson Ragsdale, DO [address] [place] [address] PCP - General Family Medicine 10/09/14 Studio Model Relationship Specialty Start Date End Date Samson Ragsdale, DO [address] [place] [address] PCP - General Family Medicine 10/09/14 Studio Model Relationship Specialty Start Date End Date Samson Ragsdale, DO [address] [place] [address] PCP - General Family Medicine 10/09/14 Studio Model Relationship Specialty Start Date End Date Samson Ragsdale, DO [address] [place] [address] PCP - General Family Medicine 10/09/14 Studio Model Relationship Specialty Start Date End Date Samson Ragsdale, DO [address] [place] [address] PCP - General Family Medicine 10/09/14 Studio Model Relationship Specialty Start Date End Date Samson Ragsdale, DO [address] [place] [address] PCP - General Family Medicine 10/09/14 Studio Model Relationship Specialty Start Date End Date Samson Ragsdale, DO [address] [place] [address] PCP - General Family Medicine 10/09/14 Studio Model Relationship Specialty Start Date End Date Samson Ragsdale DO [address] [place] [place] [address] PCP - General Family Medicine 10/09/14 Studio Model Relationship Specialty Start Date End Date Samson Ragsdale DO [address] [place] [place] [address] PCP - General Family Medicine 10/09/14 Studio Model Relationship Specialty Start Date End Date Samson Ragsdale DO [address] [place] [address] PCP - General Family Medicine 10/09/14 Studio Model Relationship Specialty Start Date End Date Samson Ragsdale DO [address] [place] [address] PCP - General Family Medicine 10/09/14 Studio Model Relationship Specialty Start Date End Date Samson Ragsdale DO [address] [place] [address] PCP - General Family Medicine 10/09/14 Studio Model Relationship Specialty Start Date End Date Samson Ragsdale, [address] [place] [address] PCP - General Family Medicine 10/09/14 Studio Model Relationship Specialty Start Date End Date Samson Ragsdale DO [address] [place] [address] PCP - General Family Medicine 10/09/14 Studio Model Relationship Specialty Start Date End Date Samson Ragsdale DO [address] [place] [address] PCP - General Family Medicine 10/09/14 Studio Model Relationship Specialty Start Date End Date Samson Ragsdale DO [address] [place] [address] PCP - General Family Medicine 10/09/14 Studio Model Relationship Specialty Start Date End Date Samson Ragsdale, DO [address] [place] [address] PCP - General Family Medicine 10/09/14 Studio Model Relationship Specialty Start Date End Date Samson Ragsdale DO [address] [place] [address] PCP - General Family Medicine 10/09/14 Studio Model Relationship Specialty Start Date End Date Samson Ragsdale DO [address] [place] [address] PCP - General Family Medicine 10/09/14 Studio Model Relationship Specialty Start Date End Date Samson Ragsdale DO [address] [place] [address] PCP - General Family Medicine 10/09/14 Studio Model Relationship Specialty Start Date End Date Samson Ragsdale DO [address] [place] [address] PCP - General Family Medicine 10/09/14 Studio Model Relationship Specialty Start Date End Date Samson Ragsdale, DO [address] [place] [address] PCP - General Family Medicine 10/09/14 Studio Model Relationship Specialty Start Date End Date Samson Ragsdale DO [address] [place] [address] PCP - General Family Medicine 10/09/14 Studio Model Relationship Specialty Start Date End Date Samson Ragsdale DO [address] [place] [address] PCP - General Family Medicine 10/09/14 Studio Model Relationship Specialty Start Date End Date Samson Ragsdale DO [address] [place] [address] PCP - General Family Medicine 10/09/14 Studio Model Relationship Specialty Start Date End Date Samson Ragsdale DO [address] [place] [address] PCP - General Family Medicine 10/09/14 Studio Model Relationship Specialty Start Date End Date Samson Ragsdale DO [address] [place] [address] PCP - General Family Medicine 10/09/14 Studio Model Relationship Specialty Start Date End Date Samson Ragsdale, [address] [place] [address] PCP - General Family Medicine 10/09/14 Studio Model Relationship Specialty Start Date End Date Samson Ragsdale DO [address] [place] [address] PCP - General Family Medicine 10/09/14 Studio Model Relationship Specialty Start Date End Date Samson Ragsdale DO [address] [place] [address] PCP - General Family Medicine 10/09/14 Studio Model Relationship Specialty Start Date End Date Samson Ragsdale DO [address] [place] [address] PCP - General Family Medicine 10/09/14 Studio Model Relationship Specialty Start Date End Date Samson Ragsdale, [address] [place] [address] PCP - General Family Medicine 10/09/14 Studio Model Relationship Specialty Start Date End Date Samson Ragsdale DO [address] [place] [address] PCP - General Family Medicine 10/09/14 Studio Model Relationship Specialty Start Date End Date Samson Ragsdale DO [address] [place] [address] PCP - General Family Medicine 10/09/14 Studio Model Relationship Specialty Start Date End Date Samson Ragsdale DO [address] [place] [address] PCP - General Family Medicine 10/09/14 Studio Model Relationship Specialty Start Date End Date Samson Ragsdale DO [address] [place] [address] PCP - General Family Medicine 10/09/14 Studio Model Relationship Specialty Start Date End Date Samson Ragsdale DO [address] [place] [address] PCP - General Family Medicine 10/09/14 Desirae Irving APRN.[employer]ATTERY CONTAINER [employer] [address] [place] [address] Medication Reconciliation Technician [facility] 07/08/24 Lore Saenz, SURGEON'S ASSISTANT.[employer] [address] [place] [address] [facility] 07/08/24 Studio Model Relationship Specialty Start Date End Date Smason Ragsdale DO [address] [place] [address] PCP - General Family Medicine 10/09/14 Desirae Irving, SURGEON'S ASSISTANT.BATTER[employer] CONTAINER [employer] [address] [place] [address] [facility] 07/08/24 DanyLore, SURGEON'S ASSISTANT.[employer]TER[employer] CONTAIN[employer] [address] [place] [address] [facility] 07/08/24 Studio Model Relationship Specialty Start Date End Date Samson Ragsdale DO [address] [place] [address] PCP - General Family Medicine 10/09/14 Desirae Irving, SURGEON'S ASSISTANT.[employer] CON[employer] [address] [place] [address] [facility] 07/08/24 DanyLore, SURGEON'S ASSISTANT.[employer] [address] [place] [address] [facility] 07/08/24 Studio Model Relationship Specialty Start Date End Date Samson Ragsdale DO [address] [place] [address] PCP - General Family Medicine 10/09/14 Desirae Irving, SURGEON'S ASSISTANT.[employer] [address] [facility] [place] [address] Medication Reconciliation Technician [facility] 07/08/24 Lore Saenz APRN.B[employer]TER[employer] CONTAINER [employer] [address] [place] [place] [address] Medication Reconciliation Technician [facility] 07/08/24 Studio Model Relationship Specialty Start Date End Date Samson Ragsdale DO [address] [place] [address] PCP - General Family Medicine 10/09/14 Lore Saenz, SURGEON'S ASSISTANT.[employer] CONTAIN[employer] [address] [place] [address] [facility] Studio Model Relationship Specialty Start Date End Date Samson Ragsdale DO [address] [place] [address] PCP - General Family Medicine 10/09/14 Desirae Irving, SURGEON'S ASSISTANT.[employer] [address] [place] [address] Medication Reconciliation Technician [facility] 07/08/24 10/19/24 Lore Saenz, SURGEON'S ASSISTANT.[employer] CON[employer] [address] [place] [address] [facility] 07/08/24 Studio Model Relationship Specialty Start Date End Date Samson Ragsdale DO [address] [place] [address] PCP - General Family Medicine 10/09/14 Lore Saenz, SURGEON'S ASSISTANT.[employer] CONTAINER [employer] [address] [place] [address] [facility] 07/08/[facility] Studio Model Relationship Specialty Start Date End Date Samson Ragsdale DO [address] [place] [address] PCP - General Family Medicine 10/09/14 [facility], SURGEON'S ASSISTANT.BATTERY CONTAINER [employer] [address] [place] [address] Medication [facility] 07/08/24 Studio Model Relationship Specialty Start Date End Date Samson Ragsdale DO [address] [place] [address] PCP - General [facility] Medicine 10/09/14 [facility], SURGEON'S ASSISTANT.BATTER[employer] CONTAINER [employer] [address] [place] [address] Medication [facility]conciliation [facility] 07/08/24 Studio Model Relationship Specialty Start Date End Date Samson Ragsdale DO [address] [place] [address] PCP - General [facility] Medicine 10/09/14 [facility], SURGEON'S ASSISTANT.B[employer]TER[employer] CONTAINER [employer] [address] [place] [address] [facility] 07/08/24 Team Status: Active Member Role Status Dates Dr. Samson Ragsdale DO Primary Care Provider Active Team Status: Inactive Member Role Status Dates Dr. Samson Ragsdale DO Primary Care Provider Active Start: January 13, 2025 End: January 14, 2025 Dr. Adam Mon MD Emergency Provider Active S tart: January 13, 2025 End: January 14, 2025 Team Status: Inactive Member Role Status Dates Dr. Samson Ragsdale DO Primary Care Provider Active Start: January 15, 2025 End: January 15, 2025 Dr. Samson Ragsdale DO Referring Provider Active Start: January 15, 2025 End: January 15, 2025 Dr. Srini Montano MD Attending Provider Active Start: January 15, 2025 End: January 15, 2025 Studio Model Relationship Specialty Start Date End Date Samson Ragsdale DO [address] [place] [address] PCP - General Family Medicine 10/09/14 Lore Saenz APRN.BATTER[employer] CONTAINER [employer] [address] [place], [place] [address] Medication Reconciliation Technician Family Medicine 07/08/24 Christine Larkin, SURGEON'S ASSISTANT.BATTER[employer] CONTAINER [employer] [address] [place], [place] [address] Medication Reconciliation Technician Family Medicine 01/14/25 (unrecognized sect ion and content) No Status Records FoundNo Status Records FoundNo Status Records FoundNo Status Records Found INFORMATION SOURCE (unrecogn ized section and content) DATE CREATED AUTHOR 06/01/2023 [facility], 1928–1983 ([place]) DATE CREATED AUTHOR AUTHOR'S ORGANIZ ATION 05/25/2024 [facility] DATE CREATED AUTHOR AUTHOR'S ORGANIZ ATION 01/12/2025 [facility] DATE CREATED AUTHOR AUTHOR'S ORGANIZ ATION 01/17/2025 [facility] Goals (unrecognized section and content) Goals may be documented in a n alternate section FOR RECORDS PERTAINING TO PATIENTS WHO ARE [...] BE BASED ON THE PRIMARY CLINICAL RECORDS. [facility] [employer] [facility]. provides no warranty or guarantee of the accuracy or completeness of information in this document.
--- NOTE | 2025-01-21 08:14 | STRESSREP_ITS ---
Stress Test Report Date: 01/18/2025 Procedure: Pharmacologic stress nuclear imaging study Indications: Dyspnea Consent: Per the patient Procedure: The patient underwent pharmacologic (Regadenoson 0.4mg ) evaluation with a peak heart rate of 104 beats per minute (75%predicted maximal heart rate) and a peak blood pressure of 122/48 mmHg. The baseline ECG demonstrated sinus rhythm with nonspecific ST changes. The peak pharmacologic ECG was nondiagnostic secondary to baseline abnormalities. No ischemic changes noted. There were no cardiac dysrhythmias pretest, during pharmacologic infusion, or recovery. There was no complaint of chest discomfort during pharmacologic infusion or recovery. The patient was injected with 12.0 millicuries of technetium 99m Cardiolite and subsequently rest SPECT Cardiolite nuclear imaging was obtained in the horizontal long, vertical long, and short axis views. The patient underwent pharmacologic (Regadenoson) evaluation. The patient was injected with 36.0 millicuries of technetium 99m Cardiolite and subsequently stress SPECT Cardiolite nuclear imaging was obtained in the horizontal long, vertical long, and short axis views. A gated Cardiolite study at peak stress was obtained. The examination was stopped secondary to completion of protocol. Rest and stress SPECT Cardiolite nuclear imaging status post realignment, normalization, and attenuation correction demonstrate no fixed or reversible perfusion defects. There is end systolic thickening and brightening. The gated Cardiolite study demonstrates myocardial thickening and inward wall motion. The reported LVEF is 53%. Impression: 1. Pharmacologic (Regadenoson) evaluation 2. Peak pharmacologic ECG with no diagnostic changes. 3. There were no cardiac dysrhythmias pretest, during pharmacologic infusion, or recovery. 5. Rest and stress SPECT Cardiolite nuclear imaging demonstrate relative uniform tracer uptake and myocardial perfusion appearing within normal limits. 6. The gated Cardiolite study reports an LVEF of 53%. This note was generated with [employer] software. It may contain incorrect words, spelling, and punctuation that were not noted in checking the note before signing.
== END | disposition home or self-care (01) ==
LOC: CVS 07:04
PROVIDERS: PCP Student in an Organized Health Care Education/Training Program; Referring Provider Internal Medicine Cardiovascular Disease; Visit Provider Internal Medicine Cardiovascular Disease
DX: R06.00 Dyspnea, unspecified (principal); I25.10 Atherosclerotic heart disease of native coronary artery without angina pectoris; R13.10 Dysphagia, unspecified; H53.9 Unspecified visual disturbance
CPT/HCPCS: 70450; 78452; 93017; 93306; A9500; A4216; J2785

== ENCOUNTER → 2025-01-22 | Outpatient (CLI) | payer MEDICARE, OTHER, SELFPAY ==
[2016-12-21 14:00] VITALS: BMI 28.0
--- NOTE | 2025-01-22 08:57 | CDU_ITS ---
Reason For Study Reason For Study: Carotid Stenosis Rt. Velocities/BP Lt. Velocities/BP Prox CCA 70/8 cm/sec. Prox CCA 100/18 cm/sec. Mid CCA 77/14 cm/sec. Mid CCA 89/17 cm/sec. Dist CCA 63/8 cm/sec. Dist CCA 83/16 cm/sec. Prox ICA 37/8 cm/sec. Prox ICA 107/25 cm/sec. Mid ICA 39/10 cm/sec. Mid ICA 127/30 cm/sec. Dist ICA 71/14 cm/sec. Dist ICA 64/18 cm/sec. Rt. ICA/CCA = 0.9. Lt. ICA/CCA = 1.42. Prox ECA 285/18 cm/sec. Prox ECA 299/5 cm/sec. Rt. Vert. 59/3 cm/sec. Lt. Vert. 49/14 cm/sec. Right Extracranial There is heterogeneous, irregular atherosclerotic plaque noted in the right common carotid artery. There is heterogeneous, smooth atherosclerotic plaque noted in the right internal carotid artery. Acoustic shadowing noted at Rt prox ICA. There is heterogeneous, irregular atherosclerotic plaque noted in the right external carotid artery. Antegrade flow is noted in the right vertebral artery. Left Extracranial There is heterogeneous, irregular atherosclerotic plaque noted in the left common carotid artery. There is heterogeneous, irregular atherosclerotic plaque noted in the left internal carotid artery. There is heterogeneous, irregular atherosclerotic plaque noted in the left external carotid artery. Antegrade flow is noted in the left vertebral artery. Procedure Carotid Duplex 53291. This is a Carotid Duplex examination using B-mode, color flow and specral Doppler. Exam performed in department. VL/Carotid Duplex Ultrasound Interpretation Summary Mild (<50%) stenosis right extracranial internal carotid. Limited by calcific s hadowing, alternative imaging may be beneficial. Moderate (50-69%) stenosis left extracranial internal carotid. Patent and antegrade vertebrals bilaterally. Ordering Physician: Srini Montano Referring Physician: Samson Ragsdale Performed By: Stephanie Garcia, AMANDEEP, RVT
--- NOTE | 2025-01-22 08:57 | AAVD_ITS ---
Reason For Study Reason For Study: AAA Aorta Measurements Aorta Doppler Measurements Proximal aorta measures1.63cm x 1.55cm. in cross-sectional Peak systolic flow velocities within the proximal aorta axis. measure 148 cm/sec. Proximal aorta measures1.65cm. in longitudinal axis. Peak systolic flow velocities within the mid aorta measure Mid aorta measures3.58cm x 4.78cm. in cross-sectional axis. 130 cm/sec. Mid aorta measures3.47cm. in longitudinal axis. Peak systolic flow velocities within the distal aorta Distal aorta measures2.04cm x 1.87cm. in cross-sectional measure 108 cm/sec. axis. Distal aorta measures1.44cm. in longitudinal axis. Left Iliac Artery Left iliac artery measures 1.05cm x 0.94 cm. in the cross-sectional axis. Left iliac artery measures 1.08 cm. in the longitudinal axis. Peak systolic velocity in the left iliac artery measures 143 cm/sec. Right Iliac Artery Right iliac artery measures 0.82cm x 1.0 cm. in the cross-sectional axis. Right iliac artery measures 0.93 cm. in the longitudinal axis. Peak systolic velocity in the right iliac artery measures 123 cm/sec. Procedure Aorta IVC Iliac vasculature or bypass grafts 16070. Exam performed in department. VL/Abd Aortic/IVC Duplex scan Interpretation Summary Aorta with chronic dissection, no significant flow in false lumen and aneurysma l to 4.78 cm. Bilateral iliac arteries patent, normal caliber Ordering Physician: Srini Montano Referring Physician: Samson Ragsdale Performed By: Stephanie Garcia, AMANDEEP, RVT
== END | disposition home or self-care (01) ==
LOC: CVS 08:48
PROVIDERS: PCP Student in an Organized Health Care Education/Training Program; Referring Provider Internal Medicine Cardiovascular Disease; Visit Provider Internal Medicine Cardiovascular Disease
DX: I65.22 Occlusion and stenosis of left carotid artery (principal); I10 Essential (primary) hypertension; I71.40 Abdominal aortic aneurysm, without rupture, unspecified
CPT/HCPCS: 93880; 93978

== ENCOUNTER → 2025-01-29 | Outpatient (CLI) | payer MEDICARE, OTHER, SELFPAY ==
[2016-12-21 14:00] VITALS: BMI 28.0
== END | disposition home or self-care (01) ==
LOC: PSN 09:18
PROVIDERS: PCP Student in an Organized Health Care Education/Training Program; Referring Provider Internal Medicine Cardiovascular Disease; Visit Provider Internal Medicine Cardiovascular Disease
DX: R06.00 Dyspnea, unspecified (principal); I25.5 Ischemic cardiomyopathy; R94.2 Abnormal results of pulmonary function studies
CPT/HCPCS: 94060; 94726; 94729

== ENCOUNTER → 2025-03-05 | Outpatient (CLI) | payer MEDICARE, OTHER, SELFPAY ==
[2016-12-21 14:00] VITALS: BMI 28.0
--- NOTE | 2025-03-06 09:43 | ST.MBS ---
Modified Barium Swallow Patient Information Study Date: 03/05/25 Study Time: 13:00 Direct Billable Minutes: 108 Total Minutes procedure & reportin Diagnosis: Dysphagia R13.10 Referring Physician: Nolan Hoyt V Reason for Referral: Assess swallow function, assess risk for aspiration, and determine recommendations for any necessary dysphagia interventions. Medical History: In addition to PMH from EMR (below), the patient informed this [employer] w/ very recent diagnosis of myasthenia gravis, following w/ [facility]y. He was referred for this MBSS by his seismograph shooter due to pt reporting hx of swallowing difficulty for the past 2-3 months. He reports having trouble at every meal w/ solid foods, but especially w/ foods such as bread, steak, and lao fries. He reports coughing and sensing that the foods don't want to help. Liquids somewhat help. He has lost >20lbs in the past 2 months. He denies choking or odynophagia. Pt reported hx of hiatal hernia and s/s of GERD, including HB, which he manages w/ frequent use of antacids. Hx of PNA 3X; however, these illnesses were >15 years ago. Medical History (Updated 01/14/25 @ 02:[address] Adam Mon MD) GI bleed due to NSAIDs Carotid artery stenosis Abdominal aortic aneurysm without rupture Ischemic cardiomyopathy Prostate cancer PVD (peripheral vascular disease) Atherosclerosis of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[place] heart without angina pectoris Complete heart block ST elevation [place] (STEMI) Chronic kidney disease, stage 3 Hyperlipidemia Hypertension Current Diet Ordered: Soft solids, no bread / Thin liquids Mental Status: WNL Respiratory Status: Oxygenating on Room Air Penetration-Aspiration Scale Penetration-Aspiration Scale: OBJECTIVE ASSESSMENT OF SWALLOW FUNCTION (QUANTITATIVE ? PER TRIAL): PENETRATION / ASPIRATION SCALE (VACA): 1 = does not enter airway 2 = enters airway/above vocal folds/ejected 3 = enters airway/above vocal folds/not ejected 4 = enters airway/contacts vocal folds/ejected 5 = enters airway/contacts vocal folds/not ejected 6 = enters airway/below vocal folds/ejected 7 = enters airway/below vocal folds/not ejected despite effort 8 = enters airway/below vocal folds/no effort VIDEOFLOROSCOPIC SCALE SCORE (VACA): Grade I = aspiration of material that has penetrated into the laryngeal vestibule, intact cough reflex Grade II = aspiration < 10 % of the bolus, intact cough reflex Grade III = aspiration of < 10 % of the bolus, reduced cough reflex or aspiration of > 10 % of the bolus, intact cough reflex Grade IV = aspiration of > 10 % of the bolus, reduced cough reflex Penetration-Aspiration Scale Score Thin Liquid via teaspoon: Result: 1= does not enter airway Thin Liquid via teaspoon Trial 2: Result: 1= does not enter airway Thin Liquid via large single sip: cup: Result: 1= does not enter airway Thin Liquid via sequential sips: cup: Result: 1= does not enter airway Comment: Esophageal screen - Mild retention in the lower and middle esophagus w/ retrograde flow. Pudding via teaspoon: Result: 1= does not enter airway Comment: Esophageal screen - Retention of pudding in the middle and lower esophagus. Thin Liquid via single sip: straw: Result: 1= does not enter airway Comment: Esophageal screen - Liquid wash fully cleared pudding retention from previous trial. 1/2 Cookie: Result: 1= does not enter airway Comment: Esophageal screen - Retention of cookie throughout the esophagus. Thin Liquid via single sip: straw Trial 2: Result: 1= does not enter airway Comment: Esophageal screen - Liquid wash did somewhat cleared cookie retention; however, retention of liquids occurred in the middle and lower esophagus w/ retrograde flow. Oral Phase Labial Seal: Interlabial escape, no progression to anterior lip Tongue Control During Bolus Hold: Posterior escape of less than half of bolus Bolus Preparation/Mastication: Disorganized chewing/mashing with solid pieces of bolus unchewed (Small pieces appearing un-chewed) Bolus Transport/Lingual Motion: Repetitive/disorganized tongue motion Oral Residue: Residue collection on oral structures Pharyngeal Phase Initiation of Pharyngeal Swallow: Bolus head in pyriforms Soft Palate Elevation: Trace column of contrast/air between soft palate and pharyngeal wall Laryngeal Elevation: Comp. Superior move thyroid cart w/comp. apprx arytenoid cart-epig pet Anterior Hyoid Excursion: Partial anterior movement Epiglottic Movement: Partial inversion Laryngeal Vestibule Closure at Height of Swallow: Complete; no air/contrast in laryngeal vestibule Pharyngeal Stripping Wave: Present - diminished Pharyngoesophageal Segment Opening: Minimal distension and minimal duration; marked obstruction of flow Tongue Base Retraction: Wide column of contrast between tongue base & post. pharyngeal wall Pharyngeal Residue: Majority of contrast within or on pharyngeal structures Esophageal Phase Esophageal Clearance: Esophageal retention w/ retrograde flow below pharyngoesophageal seg. Treatment Strategies Effects of treatment strategies attemped:: Liquid wash = Effective Diagnosis/Impression Diagnosis: Mild-moderate oropharyngeal dysphagia R13.12; Esophageal dysphagia R13.14 MBS Impressions: The oral phase is primarily marked by... -Decreased bolus control w/ premature posterior loss of <1/2 of some thin liquid trials to the pyriform sinuses prior to swallow onset. -Repetitive tongue motion w/ A-P transport of some liquid trials. -Slowed mastication of cookie w/ small pieces appearing un-chewed. -Mild oral residues cleared w/ independent need of additional swallows as needed. The pharyngeal phase is primarily marked by... -Delayed swallow onset w/ some liquid trials. -Decreased pharyngeal motility evident w/ cookie trial due to poor TB retraction, poor pharyngeal motility, and decreased UES opening/duration of opening. >50% of cookie trial did not clear from the pharynx on the first swallow, but independent use of three swallows mostly cleared the cookie residues through the UES. -Overall, good airway closure w/ no laryngeal penetration or aspiration; however, the patient is at risk for reflux aspiration or post prandial aspiration of pharyngeal residues. The esophageal phase is primarily marked by... -Retention of pudding and cookie in the esophagus. Liquid wash fully cleared pudding; however, retention of liquids occurred during liquid wash of cookie in the middle and lower esophagus w/ retrograde flow. Recommendations Diet: Soft and Bite Sized Textures and Thin Liquids Comment: STOP meal if increased sensation of retention despite use of strategies listed below, remain sitting upright, and resume meal once sensation clears. Compensatory Strategies: Small Bites, Small Sips, Slow Rate, Alternate bites/solids and sips/liquids (1:1 Ratio) and Sitting upright (60min after meals) Recommend Repeat Modified Barium Swallow: TBD Need for Skilled Speech Therapy Services: Yes Comment: -Train the patient in use of strategies to decrease risk for aspiration, as well as decrease presence of pharyngeal and esophageal retention. -Training in diet texture testing and preparation of IDDSI Level 6 diet. -Ongoing assessment of diet tolerance of recommended textures. -Would NOT recommend oropharyngeal exercises due to dx of myasthenia gravis. Recommended Referrals: GI Consult and Dietitian Consult (Pt has lost >20lbs in the past 2mo due to swallowing difficulty. Will recommend exploring more liquid nutrition options w/ residential finish carpenter to encourage improved caloric and nutritional intake.) Education Completed: 1. Described result of evaluation., 2. Pt understands evaluation & agrees with goals and treatment plan., 4. Family/caregivers understand evaluation & agree w/ goals & tx plan. and 7. Pt requires further education on strategies & risks. Status Active ST Patient: Active Contact Information [facility] Speech Therapy:: Bebe Morales M.A. CCC-[employer] [facility]? Speech-Language Pathologist?? [facility] [address] [place] [address]? [email or web address]?? [phone]
== END | disposition home or self-care (01) ==
LOC: RAD 12:47
PROVIDERS: PCP Student in an Organized Health Care Education/Training Program; Referring Provider Internal Medicine Pulmonary Disease; Visit Provider Internal Medicine Pulmonary Disease
DX: R13.10 Dysphagia, unspecified (principal)
CPT/HCPCS: 74230; 92611

== ENCOUNTER → 2025-03-26 | Outpatient (CLI) | payer OTHER, SELFPAY ==
[2016-12-21 14:00] VITALS: BMI 28.0
[2025-03-26 09:00] LABS: Color, Urine Yellow (Yellow); Glucose, Dipstick Normal (Normal); Ketone-Dipstick Negative (Negative); Leukocyte Esterase-Dipstick Negative /ul (Negative); Nitrite-Dipstick Negative (Negative); Occult Blood-Urine 10 /ul (Negative); Protein-Dipstick 30 mg/dl (Negative); Specific Gravity, Urine 1.010 (1.002-1.030); Urine Bilirubin Dipstick Negative (Negative)
[2025-03-26 09:49] LABS: AST(SGOT) 15 U/L (<=37); Alanine Aminotransfer ALT/SGPT 14 U/L (<=46); Albumin, Serum 4.0 g/dL (3.4-4.8); Alkaline Phosphatase 113 U/L (40-129); Anion Gap 13 (5-15); BUN 33 mg/dL (4-19); BUN/Creat Ratio 19.6 RATIO (10-20); Calcium,Total 9.3 mg/dL (7.6-11.0); Carbon Dioxide 24.7 mmol/L (21.0-32.0); Chloride 103 mmol/L (98-108); Globulin 2.8 g/dL (2.2-4.2); Glucose 127 mg/dL (70-99); Potassium 4.4 mmol/L (3.3-5.1)
== END | disposition home or self-care (01) ==
LOC: LAB 08:39
PROVIDERS: PCP Student in an Organized Health Care Education/Training Program; Referring Provider Chiropractor; Visit Provider Chiropractor
DX: E11.9 Type 2 diabetes mellitus without complications (principal)
CPT/HCPCS: 36415; 80053; 81002

== ENCOUNTER 2025-05-15 23:47 | Emergency (ER) | payer MEDICARE, OTHER, SELFPAY ==
[2016-12-21 14:00] VITALS: BMI 28.0
[2025-05-15 23:47] VITALS: BP 162/67; PULSE 102; RESP 25; TEMP 36.7; O2SAT 99; BMI 23.3
--- NOTE | 2025-05-16 00:24 | EDS_ITS ---
HPI History of Present Illness Chief Complaint: Nosebleed Narrative Narrative: Patient is 84-year-old male with past medical history of chronic kidney disease, type 2 diabetes, CAD, peripheral vascular disease, hyperlipidemia, hypertension who presented to the emergency department with a chief complaint of nosebleed. Patient states that starting Tuesday night Tuesday morning he had a nosebleed off and on he states that he cannot get it to stop. He states that he has had to have it cauterized in the past. He states that he is not on any blood thinning medications he states that he is on Plavix though. 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 Unspecified constipation Other and unspecified hyperlipidemia Internal hemorrhoid Generalized osteoarthritis Esophagitis Diverticulosis of colon (without mention of hemorrhage) Diaphragmatic hernia without mention of obstruction or gangrene Diabetes mellitus type 2, uncontrolled CKD stage 3b, GFR 30-44 ml/min Carotid atherosclerosis Acute myocardial infarction Acute gastritis without mention of hemorrhage Abdominal aneurysm without mention of rupture GI bleed due to NSAIDs Carotid artery stenosis Abdominal aortic aneurysm without rupture Ischemic cardiomyopathy Prostate cancer PVD (peripheral vascular disease) Atherosclerosis of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[place] heart without angina pectoris Complete heart block ST elevation [place] (STEMI) Chronic kidney disease, stage 3 Hyperlipidemia Hypertension Home Medications ?Medication ?Instructions ?Recorded ?Last Taken ?Type cetirizine 10 mg tablet (Zyrtec) 5 mg PO DAILY 8 Unknown History coenzyme Q10 100 mg capsule 200 mg PO DAILY 05/08/18 U nknown History (CoQ-10) insulin glargine 100 unit/mL 10 unit subcut QHS Unknown History subcutaneous solution (Lantus U-100 Insulin) allopurinol 100 mg tablet 100 mg PO DAILY 06/21/19 Unk nown History cholecalciferol (vitamin D3) 125 5,000 unit PO DAILY 1 08/21/18 Unknown History mcg (5,000 unit) capsule losartan 50 mg tablet 25 mg PO DAILY 06/21/19 Unkn own History clopidogrel 75 mg tablet 75 mg PO DAILY #90 tabs 08/01 04/21 Unknown Rx cyanocobalamin (vitamin B-12) 5,000 mcg PO DAILY 01/13 Unknown History 5,000 mcg capsule amlodipine 10 mg tablet 10 mg PO QPM 01/14/25 Unknow n History calcium 600 mg (as carbonate)-vit 1 tab PO QDAY Unknown History D3 20 mcg (800 unit) chewable tablet (Caltrate plus D) diclofenac sodium 1 % topical gel 2 g topical 4X/DAY P RN 01/14/25 Unknown History (Arthritis Pain (diclofenac)) hydrocodone-acetaminophen 5-325mg 1 tab PO PRN pain Unknown History 5mg-325mg hydrocortisone 2.5 % topical cream 1 applic topical BI D PRN 01/14/25 Unknown History potassium chloride 10 mEq 10 meq PO QDAY 01/14/25 Unkn own History capsule,extended release carvedilol 25 mg tablet 25 mg PO QDAY 02/21/25 Unkno wn History ferrous sulfate, dried 159 mg (45 159 mg PO DAILY PRN 02/21/25 Unknown History mg iron) tablet,extended release (iron ER) flax seed oil PO DAILY PRN 02/21/25 Unknow n History fluticasone 250 mcg-salmeterol 50 1 inh inhalation BID PRN 02/21/25 Unknown History mcg/dose blistr powdr for inhalation (Advair Diskus) furosemide 80 mg tablet 80 mg PO QDAY PRN 02/21/25 U nknown History isosorbide mononitrate 60 mg 30 mg PO QDAY 02/21/25 Un known History tablet,extended release 24 hr magnesium oxide 400 mg PO QDAY PRN 02/21/25 Unknown History zinc 50 mg tablet 50 mg PO DAILY PRN 02/21/25 Unknown History Allergy/AdvReac Type Severity Reaction Status Date / Time ibuprofen Allergy Unknown NEEDS Verified 05/15/25 23:47 FOLLOW-UP pravastatin Allergy Unknown NEEDS Verified 05/15/25 23:47 FOLLOW-UP atorvastatin (From Lipitor) Allergy Unknown Verified 05/15/25 23:47 glucosamine Allergy Unknown Verified 05/15/25 23:47 rosuvastatin AdvReac Unknown NEEDS Verified 05/15/25 23:47 FOLLOW-UP [id number] Reductase AdvReac Unknown NEEDS Verified 05/15/25 23:47 Inhibitor FOLLOW-UP Family History Father Arthritis Mother Hypertension Grandmother Diabetes Surgical History H/O hernia repair History of esophagogastroduodenoscopy (EGD) History of carotid endarterectomy History of colonoscopy History of prostatectomy History of right-sided carotid endarterectomy History of coronary artery stent placement H/O coronary artery bypass surgery (~1994) Social History Smoking Status: Former smoker how long ago did patient quit smokin+years ago alcohol intake: current alcohol intake frequency: holidays/special occasions only substance use type: does not use caffeine: Yes Type: coffee and tea ROS ROS ED ROS Narrative Constitutional: Denies any lightheadedness dizziness Eyes, ears, nose, throat: Complains of bloody noses noted above Cardiovascular: Denies chest pain Respiratory: No shortness of breath Abdomen: Denies abdominal pain nausea vomit diarrhea : Denies urinary symptoms Neurological: Denies numbness, weakness, tingling Musculoskeletal: Denies back pain Skin: Denies any rashes or lesions EXAM Physical Exam Narrative Exam Narrative: General: Patient lying in bed rest comfortably did not appear to be in acute distress Head: Atraumatic, normocephalic Eyes, ears, nose, throat: Patient has evidence of a anterior nosebleed with a small amount of oozing noted out of the left nare no evidence of arterial bleeding Neck: Soft, supple, trachea midline Cardiovascular: Patient tachycardic Respiratory: Clear to auscultation bilaterally Extremities: +5/5 strength in the bilateral upper lower extremities Neurological: Patient follow commands and that he is at [facility] the year is 2024 Skin: Warm, dry, intact no rashes or lesions noted Const Vital Signs: 05/15/25 23:47 05/16/25 01:47 05/16/25 02:04 Temperature 98.1 F 98 F Temperature Source Oral Pulse Rate 102 H 95 98 Respiratory Rate 25 H 20 H 16 Blood Pressure 162/67 H 152/73 H 131/60 H Blood Pressure Mean 98 99 83 Pulse Ox 99 98 98 Oxygen Delivery Method Room Air Room Air MDM MDM MDM Narrative Medical decision making narrative: Patient is a 84-year-old male who presents to the emergency department the chief complaint of epistaxis. On the differential diagnose includes but not limited to anterior process, posterior epistaxis. I had the patient blow out the clot out of his left nare and then placed a Merisel he will be observed. On reevaluation the patient the Merisel was removed and he was still noted to have some bleeding. Attempted cauterization on the anterior nasal septum which slowed the bleeding down however he still has some mild oozing noted therefore we will apply TXA with Rhino Rocket. While waiting for the TXA to come down I did place a another Merisel in his left nare. On reevaluation the patient went and removed the Merisel and there was very minimal blood noted on this on exam he had no active bleeding noted I watched him for approximately 15 minutes and then ambulated him. He came back and he was not bleeding he sat there and was observed for another 15 minutes. He states that if he took a napkin and dabbed the area he noted a very small amount of blood but no active blood oozing running down his face and out of his nose. I discussed with him that he needs to not touch his nose and he should not blow his nose. I did offer to place a Rhino Rocket on that side soaked in TXA for prophylaxis and he can follow-up with ears nose and throat. He states that he would prefer to avoid this and just follow-up with them in the outpatient setting. He states that he will return if his nose starts to bleed again. Family ember at bedside is agreeable this plan as well all question concerns answered discharged home in stable condition. Discharge Plan Triage Chief Complaint: Nosebleed ED Provider: Richmond Lee Dx/Rx/DC Orders Clinical Impression: Acute anterior epistaxis, Chronic kidney disease (CKD), Peripheral vascular disease Prescriptions: No Action Lantus U-100 Insulin 100 unit/mL solution 10 unit SC QHS cetirizine [Zyrtec] 10 mg tablet 5 mg PO DAILY coenzyme Q10 [CoQ-10] 100 mg capsule 200 mg PO DAILY allopurinol 100 mg tablet 100 mg PO DAILY losartan 50 mg tablet 25 mg PO DAILY cholecalciferol (vitamin D3) 5,000 unit capsule 5,000 unit PO DAILY amlodipine 10 mg tablet 10 mg PO QPM diclofenac sodium [Arthritis Pain (diclofenac)] 1 % gel 2 g topical 4X/DAY PRN Rx Instructions: apply to single elbow, wrist or hand; for hand includes palm/fingers/back of hand hydrocortisone 2.5 % cream 1 applic topical BID PRN potassium chloride 10 mEq capsule, extended release 10 meq PO QDAY Caltrate 600 plus D 600 mg-20 mcg (800 unit) tablet,chewable 1 tab PO QDAY hydrocodone-acetaminophen 5-325 mg tablet 1 tab PO PRN (Reason: pain) carvedilol 25 mg tablet 25 mg PO QDAY flax seed oil PO DAILY PRN furosemide 80 mg tablet 80 mg PO QDAY PRN fluticasone propion-salmeterol [Advair Diskus] 250-50 mcg/dose blister with device 1 inh inhalation BID PRN magnesium oxide 400 mg magnesium capsule 400 mg PO QDAY PRN isosorbide mononitrate 60 mg tablet extended release 24 hr 30 mg PO QDAY cyanocobalamin (vitamin B-12) 5,000 mcg capsule 5,000 mcg PO DAILY iron 159 mg (45 mg iron) tablet extended release 159 mg PO DAILY PRN zinc 50 mg tablet 50 mg PO DAILY PRN clopidogrel 75 mg tablet 75 mg PO DAILY Qty: 90 3RF Primary Care Provider: Samson Ragsdale Referrals: Samson Ragsdale DO [Primary Care Provider, Medical] Rafael Christie MD [Med Staff - Courtesy Staff, Ear Nose Throat (ENT)] Activity Restrictions/Additional Instructions: Follow-up with the ears nose and throat physician may refer to. Return with worsening symptoms or other concerns. Ensure that your blood pressure is under control as this will cause your nose to bleed more easily Print Language: Urdu Disposition Disposition: Home, Self Care
--- OUTSIDE RECORDS SUMMARY | 2025-05-16 00:25 | XMS RPT_ITS | CCD ---
Author Organization [facility] Inform ion Partnership [facility] Care Team Providers Care Child Nutrition Assistant Name Role Phone MD Daniel, Rich Perea Unavailable Manju Miller Unavailable Unavailable Alissa, RN, Tania Dennis Unavailable Unavailtracy Joshi RN, Yu Huerta Unavailable Unavailable Samson Ragsdale DO Primary Care Provider Samson Ragsdale DO Primary Care Provider Samson Ragsdale DO Primary Care Provider Samson Ragsdale DO Primary Care Provider SAMSON RAGSDALE DO Primary Care Physician Thalia Rounding Nurse, Anurag Unavailable Lelia MIJARES MD, JESUS Perea Admitting Unavailable SAMSON RAGSDALE DO Primary Care Unavailable JERRY ASTORGA, DR WALTERS Consulting Unavailab sosa ACHARYA MD, DR WALTERS Attending Unavailab Samson Bourgeois DO Primary Care Provider CRISTIN NIEVES Attending Unavailable CRISTELA ANDERSEN Referring Unavailable SAMSON RAGSDALE Primary Care Unavailable Aristides LACE ROLLER.KEELER POLYGRAPH OPERATORDesirae Unavailable Dany LACE ROLLER.KEELER POLYGRAPH OPERATORLore Unavailable Aristides LACE ROLLER.JAIRON, Desirae Otoole Unavailable Dr. Samson Ragsdale DO Primary Care Provider Dr. Adam Mon MD Emergency Provider Dr. Samson Ragsdale DO Referring Provider Dusty ASTORGA, Dr. Milligan Attending Provider Chaya LACE ROLLER.KEELER POLYGRAPH OPERATOR, Cony Kaplan Unavailable [phone] Elieser ASTORGA, Dr. Medina Attending Provider [phone] Dusty ASTORGA, Dr. Milligan Referring Provider Dusty ASTORGA, Dr. Milligan Other Provider Carito ASTORGA, Dr. Bourgeois Attending Provider Bijal Montana Attending Provider Evelina ASTORGA, Dr. Nolan Quiroga Attending Provider [phone] Evelina ASTORGA, Dr. Nolan Quirgoa Referring Provider [facility] , Dr. Ceja Attending Provider Dov CERVANTES, Dr. Ceja Referring Provider Adam Mon Attending Unavailable Ragsdale, Samson Primary Care Unavailable Ragsdale, Samson Primary Care Unavailable Dusty, Srini Attending Unavailable Dusty, Srini Referring Unavailable Marcial Monae Referring Unavailable Marcial Monae Attending Unavailable Ragsdale, Samson Primary Care Unavailable Ragsdale, Samson Primary Care Unavailable Dusty, Srini Attending Unavailable Dusty, Srini Referring Unavailable Dusty, Srini Referring Unavailable Ragsdale, Samson Primary Care Unavailable Patric Peters Attending Unavailable Dusty, Srini Attending Unavailable Ragsdale, Samson Primary Care Unavailable Dusty, Srini Referring Unavailable Bk Arzate Attending Unavailable Ragsdale, Samson Primary Care Unavailable Dusty, Srini Attending Unavailable Dusty, Srini Consulting Unavailable Dusty, Srini Referring Unavailable Ragsdale, Samson Primary Care Unavailable Ragsdale, Samson Primary Care Unavailable Bijal Sorenson NP Attending Unavailable Ragsdale, Samson Referring Unavailable Dusty, Srini Attending Unavailable Ragsdale, Samson Referring Unavailable Ragsdale, Samson Primary Care Unavailable Dusty, Srini Attending Unavailable Dusty, Srini Referring Unavailable Ragsdale, Samson Primary Care Unavailable Ragsdale, Samson Primary Care Unavailable Dusty, Srini Attending Unavailable Dusty, Srini Referring Unavailable Dusty, Srini Attending Unavailable Marcial Monae Referring Unavailable Marcial Monae Attending Unavailable Ragsdale, Samson Primary Care Unavailable Ragsdale, Samson Primary Care Unavailable Sibilia, Nolan V Referring Unavailable Sibilia, Nolan V Attending Unavailable RAGSDALE, SAMSON L Primary Care Unavailable JUD MAGUIRE Referring Unavailable RAGSDALE, SAMSON L Primary Care Unavailable MANUELA LACY Attending Unavailable JUD MAGUIRE Referring Unavailable RAGSDALE, SAMSON L Referring Unavailable RAGSDALE, SAMSON L Primary Care Unavailable RAGSDALE, SAMSON L Attending Unavailable RAGSDALE, SAMSON L Primary Care Unavailable RAGSDALE, SAMSON L Primary Care Unavailable KUGISSELLE HALLCA M Referring Unavailable RAGSDALE, SAMSON L Primary Care Unavailable KUENZLER, MANUELA M Referring Unavailable KUENZLER, MANUELA M Attending Unavailable SELF Referring Unavailable RAGSDALE, SAMSON L Primary Care Unavailable CONY CHENG Attending Unavailable THEODORA HERNANDEZ Attending Unavailable RAGSDALE, SAMSON L Primary Care Unavailable KHLOE IBARRA Attending Unavailable RAGSDALE, SAMSON L Primary Care Unavailable RAGSDALE, SAMSON L Primary Care Unavailable FRED, KHLOE Referring Unavailable RAGSDALE, SAMSON L Primary Care Unavailable LALA GODINEZ Attending Unavailable THEODORA HERNANDEZ Referring Unavailable RAGSDALE, SAMSON L Primary Care Unavailable Cristela Andersen Attending Unavailable RAGSDALE, SAMSON L Primary Care Unavailable DESIRAE IRVING Referring Unavailabl e RAGSDALE, SAMSON L Primary Care Unavailable RAGSDALE, SAMSON L Attending Unavailable RAGSDALE, SAMSON L Primary Care Unavailable RAGSDALE, SAMSON L Primary Care Unavailable SELF Referring Unavailable LALA GODINEZ Attending Unavailable RAGSDALE, SAMSON L Primary Care Unavailable LALA GODINEZ Referring Unavailable RAGSDALE, SAMSON L Primary Care Unavailable JUD MAGUIRE Attending Unavailable LALA GODINEZ Referring Unavailable Allergies Allergy Classification Reported Allergen(s) Allergy Type Date of Onset Reaction(s) Facility (4 sources) atorvastatin Drug Allergy 7 myalgias [facility] Work Phone: [phone] (4 sources) chondroitin sulfates / glucosamine Drug Allergy 7 rash [facility] Work Phone: [phone] (20 sources) ibuprofen; Translations: [ibuprofen] Drug Allergy 6 Rash [facility] Work Phone: (8 sources) ARTHRITIS MEDICATION; Translations: [ARTHRITIS MEDICATION] allergy to substance 7 rash [facility] Work Phone: (20 sources) atorvastatin; Translations: [ATORVASTATIN] Drug Allergy 8 Unknown [facility] (20 sources) Glucosamine; Translations: [GLUCOSAMINE] Drug Allergy 7 Unknown [facility] Work Phone: (4 sources) HMG-CoA reductase inhibitor; Translations: [MCKCMNR-CMN-ZEA REDUCTASE INHIBITORS] Drug Intolerance 5 Other: See Comments [facility] Work Phone: (20 sources) Pravastatin; Translations: [PRAVASTATIN] Drug Allergy 3 Other: See Comments [facility] Work Phone: (20 sources) rosuvastatin; Translations: [ROSUVASTATIN CALCIUM] Drug Allergy 3 Other: See Comments [facility] (20 sources) HMG-CoA reductase inhibitor Drug Intolerance 5 Other: See Comments [facility] Work Phone: (1 source) Naproxen; Translations: [naproxen] Drug Allergy [facility] (8 sources) rosuvastatin Drug Allergy 5 NEEDS FOLLOW-UP [facility] (8 sources) Owhfbis-Oxi-Bjn Reductase Inhibitor Propensity to adverse reactions 5 NEEDS FOLLOW-UP [facility] (1 source) atorvastatin Drug Allergy 5 [facility] (1 source) Glucosamine Drug Allergy 5 [facility] (1 source) Pravastatin Drug Allergy 5 [facility] (1 source) rosuvastatin Drug Allergy 5 [facility] (1 source) Cpvhyec-Aml-Nhk Reductase Inhibitor Drug allergy (disorder) 5 [facility] Medications Current Medications Medication Drug Class(es) Dates Sig (Normalized) Sig (Original) acetaminophen 325 mg / HYDROcodone bitartrate 5 mg oral tablet (20 sources) Opioid Agonist Start: 01-14-2025 Hydrocodone-Acetam inophen 5-325 mg tablet Active 1 {tbl} PO as needed for pain 0 January 14, 2025 12:00am Start: 11-26-2024 End: [...] 6 HOURS as needed for gout flare 0 June 21, 2019 1:00am April 21, 2021 [...] evening 90 tablet 3 09/26/2024 Active Start: 11-23-2018 End: 01-13-2025 take 1 tablet by mouth once daily Amlodipine 5 mg tablet Discontinued 5 mg PO DAILY 1 November 23, 2018 12:00am January 13, 2025 11:20pm Start: 07-04-2014 End: 05-08-2018 take 1 tablet by mouth once daily Amlodipine 5 MG tablet Discontinued 5 mg PO DAILY July 04, 2014 1:00am May 08, 2018 2:07pm Comment on above: Take 1 tablet by sameer th once daily. Take 1 tablet by sameer th once daily. In the evening aspirin 81 mg chewable tablet (14 sources) Nonsteroidal Anti-inflammatory Drug Start: 05-28-2023 End: 08-20-2024 [facility] Aspirin 81 mg oral tablet, (chewable) Dose : 81 mg = 1 tab(s), Oral, qDayM, # 90 tab(s), 4 Refill(s), Pharmacy: [id number], 172.7, cm, 05/24/23 21:25:00 EDT, Height, kg, 05/24/23 21:25:00 EDT, Dosing Weight Start Date: 05/28/23 Stop Date: 08/20/24 Status: Ordered Start: 12-24-2016 End: 05-08-2018 take 1 tablet by mouth once daily Aspirin 81 MG tablet Discontinued 81 mg PO DAILY@0800 0 December 24, 2016 12:00am May 08, 2018 2:07pm atorvastatin 40 mg oral tablet (9 sources) HMG-CoA Reductase Inhibitor Start: 05-28-2023 End: 08-20-2024 atorvastatin 40 mg oral tablet Dose : 40 mg = 1 tab(s), Oral, qDay, # 90 tab(s), 4 Refill(s), Pharmacy: [facility], 172.7, cm, 05/24/23 21:25:00 EDT, Height, kg, 05/24/23 21:25:00 EDT, Dosing Weight Start Date: 05/28/23 Stop Date: 08/20/24 Status: Ordered Start: 12-30-2016 End: 02-16-2017 take 1 tablet by mouth once daily LIPITOR 80 MG TABS One tablet by mouth daily ATORVASTATIN CALCIUM [id number] Yu Joshi RN Blood-Glucose Meter (FREESTY LE [...] calcium carbonate 1500 mg or al tablet (20 sources) Start: 10-07-2020 Caltrate 600 m g [...] CH EW ad directed CALCIUM CARBONATE ANTACID [id number] Pat Greenfield PA-C calcium carbonate 1500 mg / cholecalciferol 800 unt chewable tablet (8 sources) Vitamin D Start: 01-14-2025 Calcium Carbonate-Vitamin D3 [...] alpha-Adrener gic Amrita, beta-Adrenerg ic Amrita Start: 02-21-2025 take 1 tablet by mouth once daily Carvedilol 25 mg tablet Active 25 mg PO daily February 21, 2025 11:19am Start: 05-28-2023 End: 08-26-2023 Coreg 6.25 mg oral tablet Do se : 6.25 mg = 1 tab(s), Oral, BIDM, # 60 tab(s), 2 Refill(s), Pharmacy: [id number], 172.7, cm, 05/24/23 21:25:00 EDT, Height, kg, 05/24/23 21:25:00 EDT, Dosing Weight Start Date: 05/28/23 Stop Date: 08/26/23 Status: Ordered Start: 01-13-2022 End: 02-21-2025 take 1 tablet by mouth twice daily [...] 6.25 mg PO TWICE A DAY 180 3 November 23, 2018 2:30pm June 21, 2019 [...] 0 Refill(s) Start Date: 07/03/13 Status: Ordered End: 01-30-2025 take 1 tablet by mouth once daily cetirizine HCl (ZYRTEC) 10 mg chewable tablet Take 10 mg by mouth once daily. 01/30/2025 Discontinued Comment on above: Take 10 mg by [...] TABS One tablet by mouth daily CHOLECALCIFEROL [id number] Pat Greenfield PA-C End: 01-30-2025 take 1 tablet by mouth twice daily cholecalciferol (VITAMIN D3) 5,000 unit tab Take 5,000 Units by mouth twice daily. 01/30/2025 Discontinued Comment on above: Take 5,000 Units by [...] release oral tablet (20 sources) Start: 01-13-2025 End: 02-21-2025 take 1 tablet by mouth once daily as needed Ferrous Sulfate, Dried (Iron) 159 mg (45 mg iron) tablet extended release Active 159 mg PO DAILY as needed February 21, 2025 11:20am Start: 02-07-2020 End: 04-21-2021 take 1 tablet [...] 1 every other day flax seed oil (11 sources) Start: 02-21-2025 flax seed oil Active PO DAILY as needed February 21, 2025 11:20am Start: 01-14-2025 End: 02-21-2025 flax seed oil Discontinued P O DAILY January 14, 2025 12:00am February 21, 2025 11:23am Start: 01-14-2025 flax seed oil Active PO DAILY January 14, 2025 12:00am Fluticasone Propion-Salmeterol (20 sources) Corticosteroid, beta2-Adrenergic Agonist Start: 02-21-2025 Fluticasone Propion-Salmeterol (Advair Diskus) 250-50 mcg/dose blister with device Active 1 NMA INHALATION TWICE A DAY as needed February 21, 2025 11:20am Start: 01-17-2025 End: 04-09-2025 take 1 puff(s) by inhalation twice daily fluticasone-salmeterol (ADVAIR DISKUS) 100-50 mcg/dose inhaler Indications: SOB (shortness of breath) Inhale 1 puff as instructed two times a day. 60 each 1 01/17/2025 04/09/2025 Discontinued Start: 01-17-2025 take 1 puff(s) by in halation twice daily fluticasone-salmeterol (ADVAIR DISKUS) 100-50 mcg/dose inhaler Indications: SOB (shortness of breath) Inhale 1 puff as instructed two times a day. 60 each 1 01/17/2025 Active Start: 01-15-2025 End: 02-21-2025 Fluticasone Propion-Salmeter ol (Advair Diskus) 250-50 mcg/dose blister with device Discontinued 1 NMA INHALATION TWICE A DAY 60 January 15, 2025 12:00am February 21, 2025 11:23am furosemide 80 mg oral tablet (20 sources) Loop Diuretic Start: 01-15-2025 End: 02-21-2025 take 1 tablet by mouth once daily as needed Furosemide 80 mg tablet Active 80 mg PO daily as needed February 21, 2025 11:20am Start: 12-30-2016 End: 05-08-2018 take 1 tablet by mouth twice daily Furosemide 40 mg tablet Discontinued 40 mg PO TWICE A DAY 60 November 11, 2017 10:58am May 08, 2018 2:07pm Dose was increased Start: 12-24-2016 End: 01-30-2025 take 1 tablet by mouth once daily as needed for edema Furosemide 40 mg tablet Discontinued 40 mg PO .COMPLEX 90 October 31, 2019 8:55am February 07, 2020 4:01pm 40 mg PO once daily, may take an extra one prn for edema; Comment on above: Take 1 tablet by sameer once daily. hydrocortisone 25 mg/ml topical cream (20 sources) Corticosteroid Start: 01-14-2025 Hydrocortisone 2.5 % cream Active 1 NMA TOPICAL TWICE A DAY as needed January 14, 2025 12:00am Start: 05-01-2018 End: 04-09-2025 hydrocortisone 2.5 % cream I ndications: Psoriasis Apply 1 application to affected area twice daily. Location: face 30 g 2 05/01/2018 04/09/2025 Discontinued Comment on above: Apply 1 application [...] daily at bedtime. 24 hr isosorbide mononitrate 60 mg extended release oral tablet (20 sources) Start: 02-22-20 take 1 tablet by mouth once daily, then take 2 tablets by mouth every twenty-four hours Isosorbide Mononitrate 60 mg tablet extended release 24 hr Active 30 mg PO daily February 21, 2025 11:29am Start: 01-15-2025 End: 02-21-2025 take 1 tablet by mouth once daily, then take 1 tablet by mouth every twenty-four hours Isosorbide Mononitrate 60 mg tablet extended release 24 hr Discontinued 60 mg PO daily 90 3 January 15, 2025 12:00am February 21, 2025 11:29am Start: 03-04-2017 End: 01-15-2025 take 1 tablet by mouth once daily isosorbide mononitra te ER (IMDUR) 30 mg 24 hr tablet [...] kidney disease) stage 4, GFR 15-29 ml/min ([facility]) Take 0.5 tablets by mouth once daily. 45 tablet 3 09/26/2024 Active Start: 05-28-2023 End: 08-26-2023 losartan 25 mg oral tablet D ose : 25 mg = 1 tab(s), Oral, qDay, # 30 tab(s), 2 Refill(s), Pharmacy: [id number], 172.7, cm, 05/24/23 21:25:00 EDT, Height, kg, 05/24/23 21:25:00 EDT, Dosing Weight Start Date: 05/28/23 Stop Date: 08/26/23 Status: Ordered Start: 10-26-2019 End: 09-26-2023 take 1 tablet by mouth once daily losartan (COZAAR) 50 mg tablet Indications: CKD (chronic kidney disease) stage 4, GFR 15-29 ml/min ([facility]) Take 1 tablet by mouth once daily. 90 tablet 3 06/10/2022 09/26/2023 Discontinued Start: 06-21-2019 Losartan 50 mg tablet Active 25 mg PO DAILY June 21, 2019 1:00am Start: 12-24-2016 End: 06-21-2019 take 1 tablet by mouth once daily Losartan 25 mg tablet Discontinued 25 mg PO DAILY 90 3 October 26, 2018 3:11pm June 21, 2019 2:12pm Comment on above: Take 1 tablet by sameer th once daily. Take 0.5 tablets by mouth once daily. magnesium oxide 400 mg oral capsule (12 sources) Start: 02-21-2025 take 1 capsule by mouth once daily as needed Magnesium Oxide 400 mg magnesium capsule Active 400 mg PO daily as needed February 21, 2025 12:00am Start: 11-23-2018 End: 01-14-2025 take 1 tablet by mouth once daily Magnesium Oxide 400 mg (241.3 mg magnesium) tablet Discontinued 500 mg PO DAILY November 23, 2018 12:00am January 14, 2025 6:00pm Multivitamin preparation (1 source) Start: 07-03-2013 take 1 tablet by mouth once daily Multivitamin Dose = 1 tab(s), Oral, Daily, occuvite, 0 Refill(s) Start Date: 07/03/13 Status: Ordered nitroglycerin 0.4 mg sublingual tablet (1 source) Nitrate Vasodilator Start: 07-03-2013 Nitrostat 0.4 mg sublingual tablet Dose : 0.4 mg = 1 tab(s), Sublingual, q5min, PRN Chest pain, # 25 tab(s), 3 Refill(s) Start Date: 07/03/13 Status: Ordered Seneca-3 1000 mg oral capsule (1 source) Start: 10-12-2022 take 1 capsule by mouth once daily Seneca-3 1000 mg oral capsule mg = cap(s), Oral, qDay, 0 Refill(s) Start Date: 10/12/22 Status: Ordered potassium chloride 10 meq extended release oral capsule (20 sources) Start: 01-14-2025 take 1 capsule by mouth once daily Potassium Chloride 10 mEq capsule, extended release Active 10 meq PO daily January 14, 2025 12:00am Start: 10-07-2020 potassium chlo ride 10 mEq oral capsule, extended release Dose : 10 mEq = 1 cap(s), Oral, Daily, take with food., # 60 cap(s), 0 Refill(s) Start Date: 10/07/20 Status: Ordered Start: 04-19-2017 End: 04-09-2025 take 1 tablet by mouth once daily potassium chloride (KLOR-CON 10) 10 mEq tablet Take 1 tablet by mouth once daily. 90 tablet 3 04/19/2017 04/09/2025 Discontinued Start: 12-30-2016 End: 03-07-2017 take 1 tablet by mouth once daily POTASSIUM CHLORIDE ER 10 MEQ CR-TABS One tablet by mouth daily POTASSIUM CHLORIDE [id number] Pta Greenfield PA-C Start: 12-24-2016 End: 06-16-2021 take 1 tablet by mouth once daily Potassium Chloride 10 mEq tablet,ER particles/crystals Discontinued 10 meq PO DAILY 90 3 October 30, 2019 5:33pm February 08, 2020 12:04pm Comment on above: Take 1 tablet by sameer th once daily. predniSONE 10 mg oral tablet (20 sources) Start: 03-18-2025 End: 09-14-2025 take 3 tablets by mouth once daily predniSONE (DELTASONE) 10 mg tablet Take 3 tablets by mouth once daily. 90 tablet 5 03/18/2025 09/14/2025 Active Start: 11-26-2024 End: 12-11-2024 predniSONE (DELTASONE) 10 [...] on above: Take 2 tablets by mo [facility] once daily for 5 days. pyridostigmine bromide 60 mg oral tablet (8 sources) Start: 02-27-2025 End: 03-18-2025 pyridostigmine (MESTINON) 60 mg tablet Take a half tablet three times a day with food. 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 45 tablet 2 03/18/2025 Active [facility] pyridostigmine (MESTINON) 60 mg tablet T abel 60 mg by mouth three times a day. Active triamcinolone acetonide 0.055 mg/actuat metered dose nasal spray (20 sources) Corticosteroid Start: 01-09-2025 End: 04-09-2025 take 2 spray(s) nasal route once daily triamcinolone acetonide (NASACORT ALLERGY) 55 mcg nasal inhaler Use 2 sprays in each nostril once daily. 16.9 mL 01/09/2025 04/09/2025 Discontinued Start: 07-09-2016 End: 01-17-2025 triamcinolone acetonide (JAUN ALOG) 0.1 % cream Apply 1 application to affected area twice daily as needed (rash). Apply sparingly to area for rash/itching. 60 g 3 07/09/2016 01/17/2025 Discontinued Comment on above: Apply 1 application to affected area twice daily as needed (rash). Apply sparingly to area for rash/itching. ubidecarenone 100 mg oral capsule (20 sources) Start: 10-10-19 End: 04-09-20 take 1 capsule by mouth once coenzyme Q10 (COENZYME Q-10) 100 mg cap capsule Take 1 capsule by mouth. 0 10/09/2014 04/09/2025 Discontinued Comment on above: Take 1 capsule by mo [facility]. vitamin b12 5 mg oral capsule (16 sources) Vitamin B12 Start: 01-14-20 take 1 capsule by mouth once daily Cyanocobalamin (Vitamin B-12) 5,000 mcg capsule Active 5000 ug PO DAILY January 13, 2025 12:00am take 1 tablet by mouth once marvin y cyanocobalamin (B-12 DOTS) 500 mcg tablet Take 1 tablet by mouth once daily. Active Vitamin D3 (1 source) Start: 10-07-2020 Vitamin D3 Dos e : 5,000 unit(s) = 1 cap(s), Oral, qDay, # 30 cap(s), 0 Refill(s) Start Date: 10/07/20 Status: Ordered Zinc (12 sources) Start: 02-21-2025 take 1 tablet by sameer once daily as needed Zinc 50 mg tablet Active 50 mg PO DAILY as needed February 21, 2025 11:22am Start: 01-13-2025 End: 02-21-2025 take 1 tablet by mouth once daily Zinc 50 mg tablet Discontinued 50 mg PO DAILY January 13, 2025 12:00am February 21, 2025 11:23am Start: 01-13-2025 take 1 tablet by sameer once daily Zinc 50 mg tablet Active 50 mg PO DAILY January 13, 2025 12:00am Zinc Sulfate (18 sources) take 1 tablet by sameer once daily zinc sulfate (ZINC-15 ORAL) Take [...] / oxyCODONE hydrochloride 5 mg oral tablet (9 sources) Opioid Agonist Start: 01-12-2024 End: 01-14-2025 Oxycodone-Acetaminophen 5-325 mg tablet Discontinued 1 {tbl} PO EVERY 6 HOURS NEEDED as needed for Pain 12 3 0 January 12, 2024 January 14, 2025 5:59pm Diverticulitis Abdominal pain Unspecified abdominal pain amoxicillin 875 mg / clavulanate 125 mg oral tablet (9 sources) Penicillin-class Antibacterial Start: 01-12-2024 End: 01-13-2025 take 1 tablet by mouth every twelve hours Amoxicillin-Pot Clavulanate 875-125 mg tablet Discontinued 875 mg PO Q12H 20 0 January 12, 2024 12:00am January 13, 2025 11:20pm B-Complex With Vitamin C capsule (9 sources) Start: 11-23-2018 End: 01-14-2025 B-Complex With [...] Comment on above: Take 1 capsule by [facility] three times daily as needed for cough. calcium (4 sources) Phosphate Binder, Calcium Start: 01-18-2017 take 1 tablet by mouth once daily CALCIUM 500 MG TABS One tablet by mouth daily CALCIUM [id number] Pat Greenfield PA-C calcium carbonate / vitamin D (8 sources) Start: 12-30-2016 take 1 tablet by mouth once daily CALTRATE 600+D 600-400 MG-UNIT TABS One tablet by mouth daily CALCIUM CARBONATE-VITAMIN D [id number] Yu Joshi RN Start: 12-30-2016 End: 01-18-2017 take 1 tablet by mouth once daily CALTRATE 600+D 600-400 MG-UNIT TABS One tablet by mouth daily CALCIUM CARBONATE-VITAMIN D [id number] Pat Greenfield PA-C codeine phosphate 2 mg/ml [...] One tablet by mouth daily COENZYME Q10 [id number] Nolan Triana MD colchicine 0.6 mg oral tablet (9 sources) Start: 11-23-2018 End: 04-21-2021 take 1 [...] hydrochloride 180 mg extended release oral capsule (20 sources) Calcium Channel Armita Start: 11-23-2018 End: 11-23-2018 take 1 capsule [...] 2018 1:31pm ezetimibe 10 mg oral tablet (20 sources) Dietary Cholesterol Absorption Inhibitor Start: 10-18-2017 End: 09-09-2020 take 1 tablet by mouth once daily Ezetimibe (Zetia) 10 mg tablet Discontinued 10 mg PO daily 30 06October 18, 2017 10:36am June 21, 2019 2:10pm Start: 12-30-2016 End: 01-18-2017 take 1 tablet by mouth once daily ZETIA 10 MG TABS One tablet by mouth daily EZETIMIBE [id number] Pat Greenfield PA-C famotidine 20 mg oral [...] by sameer th at bedtime as needed. flaxseed oil (OMEGA 3 ORAL) (20 sources) End: 01-30-2025 flaxseed oil (OMEGA 3 ORAL) Take by mouth. 01/30/2025 Discontinued flaxseed oil (OM EGA 3 ORAL) Take by mouth. Active flaxseed oil (OM EGA 3 ORAL) Take by mouth. 0 Active Comment on above: Take by mouth. gemfibrozil 600 mg oral tablet (20 sources) Peroxisome Proliferator Receptor alpha Agonist Start : 02-16 End: 02-09 -2021 take 1 tablet by mouth twice daily before mealtime Gemfibrozil 600 mg tablet Discontinued 600 mg PO TWICE DAILY BEFORE MEALS 60 November 11, 2017 10:59am May 08, 2018 2:06pm hydroCHLOROthiazide 25 mg oral tablet (9 sources) Thiazide Diuretic Start : 07-04 End: 12-24 take 1 tablet by mouth once daily Hydrochlorothiazide 25 MG tablet Discontinued 25 mg PO DAILY July 04, 2014 1:00am December 24, 2016 2:30pm lisinopril 5 mg oral tablet (9 sources) Angiotensin Converting Enzyme Inhibitor Start : 07-04 End: 12-24 take 1 tablet by mouth once daily Lisinopril 5 MG tablet Discontinued 5 mg PO DAILY July 04, 2014 1:00am December 24, 2016 2:30pm metoprolol tartrate 25 mg oral tablet (20 sources) beta-Adrenergic Amrita Start : 06-21 End: [...] One tablet by mouth daily MULTIPLE VITAMINS-MINERALS [id number] Nolan Triana MD ONE DAILY MULTI-VITAMIN ORAL [...] 10 mL injection (DEFINITY) polyethylene glycol 3350 346230 mg / potassium chloride 2970 mg / sodium bicarbonate 6740 mg / sodium chloride 5860 mg / sodium sulfate 72444 mg powder for oral solution (1 source) [...] T abel as directed POLYETHYLENE GLYCOL 3350 [id number] Yu Joshi RN Start: 12-30-2016 End: 01-18-2017 MIRALAX PACK Take as directe d POLYETHYLENE GLYCOL 3350 [id number] Pat [place] PA-C raNITIdine 150 mg oral tablet (20 sources) Histamine-2 Receptor Antagonist Start: 04-26-2017 End: [...] One tablet by mouth daily TAMSULOSIN HCL [id number] Pat Greenfield PA-C ticagrelor 90 mg oral tablet (12 sources) Start: 12-30-2016 End: 02-16-2017 take 1 tablet by mouth twice daily BRILINTA 90 MG TABS One tablet by mouth twice daily TICAGRELOR [id number] Yu Joshi RN TRUE METRIX GLUCOSE METER misc (2 sources) Start: 06-27-2017 End: 06-16-2021 TRUE METRIX GLUCOSE METER misc 1 Each as directed. 0 06/27/2017 06/16/2021 Discontinued Turmeric Root Extract 500 mg capsule (9 sources) Start: 11-23-2018 End: 01-14-2025 take 1 capsule by mouth once daily Turmeric Root Extract 500 mg capsule Discontinued 1400 mg PO DAILY November 23, 2018 12:00am January 14, 2025 6:00pm Start: 11-23-2018 take 1 capsule by mo [facility] once daily Turmeric Root Extract [...] source) Tonsillitis 07-03-2013 Episodic Acute myocardial infarction (20 sources) Acute myocardial infarction of inferior wall; Translations: [Myocardial infarction] Onset: 7 12-30-2016 Chronic Aortic; peripheral; and visceral artery aneurysms (20 sources) Abdominal aortic aneurysm, without rupture; Translations: [Abdominal aortic aneurysm without rupture] Onset: 2 Resolved: 0 12-30-2016 Chronic Comment on above: Large infrarenal sac ular AAA 4.5cm Blindness and vision defects (5 sources) Eye / vision finding; Translations: [Unspecified visual disturbance] Onset: 5 01-17-2025 Episodic Cancer of prostate (20 sources) [...] disease (20 sources) Atherosclerotic heart disease of [place] coronary artery without angina pectoris; Translations: [Angina [...] PCI-DAVID-RCA 3.50 x 16 mm Synergy 12/20/16; SQQ-DID-Erpv LCX 2.0 x 20 mm Promus Synergy 03/30/2017CABG x 1 CASTILLO-LAD 1994 History of single-ve ssel CABG with CASTILLO to LAD. Drug-eluting stents to RCA and left circumflex. Deficiency and other anemia (20 sources) Iron deficiency anemia due to blood loss; Translations: [Iron deficiency anemia secondary to blood loss (chronic)] Onset: 9 08-07-2018 Chronic Deficiency and other anemia (1 source) Iron deficiency anemia; Translations: [Other iron deficiency anemias] Episodic Deficiency and other anemia (9 sources) Chronic anemia; Translations: [Anemia, unspecified] 01-14-2025 Episodic Delirium, dementia, and amnestic and other cognitive disorders (20 sources) Dementia associated with another disease; Translations: [Dementia in other diseases classified elsewhere, unspecified severity, with mood disturbance] Onset: Chronic Diabetes mellitus with complications (20 sources) Type 2 diabetes mellitus; Translations: [Type 2 diabetes mellitus with diabetic chronic kidney disease] Onset: 8 06-05-2020 Chronic Diabetes mellitus without complication (20 sources) Type 2 diabetes mellitus without complication; Translations: [Type 2 diabetes mellitus without complications] Onset: 0 06-09-2020 Chronic Disorders of lipid metabolism (20 sources) Hyperlipidemia; Translations: [Pure hypercholesterolemia] Onset: 6 12-30-2016 Chronic Comment on above: 03/04/14 CHOL 211 TR IG 166 HDL 44 LDL 134 Diverticulosis and diverticulitis (9 sources) Diverticulitis; Translations: [Diverticulitis of intestine, part [...] without heart failure] Onset: 3 01-30-2018 Chronic Malaise and fatigue (20 sources) Fatigue; Translations: [Other fatigue] Onset: 7 Resolved: 0 06-05-2020 Episodic Mood disorders (1 source) Depressive disorder 07-03-2013 [...] Translations: [Polyosteoarthritis, unspecified] 03-25-2005 Chronic Other aftercare (1 source) long term (current) use of systemic steroids; Translations: [care home (current) use of systemic steroids] Onset: 5 Episodic Other and ill-defined cerebrovascular disease (5 sources) Small vessel cerebrovascular disease; Translations: [Other cerebrovascular disease] Onset: 5 02-05-2025 Chronic Other and ill-defined cerebrovascular disease (1 source) Other cerebrovascular disease; Translations: [Cerebral microvascular disease] Onset: 5 Chronic Other circulatory disease (9 sources) History of cardiomyopathy; Translations: [Personal history of other diseases of the circulatory system] 01-14-2025 Episodic Other circulatory disease (19 sources) Carotid bruit; Translations: [Other specified symptoms and signs involving the circulatory and respiratory systems] 01-15-2025 Episodic Other connective tissue disease (4 sources) Neurological symptom; Translations: [Other symptoms and signs involving the nervous system] 01-30-2025 Episodic Other ear and sense organ disorders (1 source) Hearing finding; Translations: [Other specified hearing loss, bilateral] 10-07-2023 Chronic Other ear and sense organ disorders (12 sources) Hearing loss; Translations: [Unspecified hearing loss, unspecified ear] Onset: 4 10-07-2023 Chronic Other gastrointestinal disorders (3 sources) Dysphagia; Translations: [Dysphagia, unspecified] 01-17-2025 Episodic Other inflammatory condition of skin (20 sources) Psoriasis; Translations: [Psoriasis, unspecified] Onset: 8 05-01-2018 Chronic Other lower respiratory disease (2 sources) Other forms of dyspnea; Translations: [Other forms of dyspnea] Onset: 3 Episodic Other lower respiratory disease (2 sources) Cough; Translations: [Cough] 11-25-2021 Episodic Other lower respiratory disease (2 sources) Cough; Translations: [Acute cough] 01-09-2025 Episodic Other lower respiratory disease (2 sources) Dyspnea, unspecified; Translations: [Dyspnea, unspecified] Onset: 5 Episodic Other nervous system disorders (20 sources) Carpal tunnel syndrome; Translations: [Carpal tunnel syndrome, unspecified upper limb] Onset: 5 07-02-2005 Chronic Other nervous system disorders (6 sources) Polyneuropathy; Translations: [Other specified polyneuropathies] 03-23-2023 Chronic Other nervous system disorders (20 sources) Peripheral nerve disease ; Translations: [Polyneuropathy, unspecified] Onset: 3 03-23-2023 Chronic Other nervous system disorders (8 sources) Myasthenia gravis; Translations: [Myasthenia gravis without (acute) exacerbation] Onset: 5 02-20-2025 Chronic Other nervous system disorders (2 sources) Myasthenia gravis without (acute) exacerbation; Translations: [Myasthenia gravis without (acute) exacerbation (HCC)] Onset: 5 Chronic Other non-traumatic joint disorders (20 sources) Arthropathy of multiple joints; Translations: [Arthropathy, unspecified] Onset: 0 06-09-2020 Chronic Other non-traumatic joint disorders (4 sources) Shoulder pain; Translations: [Pain in right shoulder] 11-26-2024 Episodic Other nutritional; endocrine; and metabolic disorders (20 sources) Hypoalbuminemia; Translations: [Other disorders of plasma-protein metabolism, not elsewhere classified] Onset: 8 05-01-2018 Chronic Other nutritional; endocrine; and metabolic disorders (20 sources) Hypercalcemia; Translations: [Hypercalcemia] Onset: 0 06-09-2020 Chronic Other nutritional; endocrine; and metabolic disorders (1 source) Overweight 10-03-2020 Episodic Other nutritional; endocrine; and metabolic disorders (18 sources) H/O: diabetes mellitus; Translations: [Personal history of other endocrine, nutritional and metabolic disease] 01-14-2025 Episodic Other nutritional; endocrine; and metabolic disorders (1 source) Abnormal weight loss; Translations: [Abnormal weight loss] 02-20-2025 Episodic Other nutritional; endocrine; and metabolic disorders (1 source) Abnormal weight loss; Translations: [Abnormal weight loss] Onset: 5 Episodic Other upper respiratory infections (1 source) Chronic sinusitis; Translations: [Chronic sinusitis, unspecified] Chronic Peripheral and visceral atherosclerosis (5 sources) Peripheral vascular disease, unspecified; Translations: [Peripheral vascular disease] Onset: 7 12-30-2016 Chronic Pneumonia (except that caused by tuberculosis or sexually transmitted disease) (1 source) Pneumonia 07-03-2013 Episodic Unclassified (4 sources) Long-term drug therapy; Translations: [Other termite renewal inspector (current) drug therapy] Onset: 7 12-30-2016 Unclassified [...] Eye glasses, device (physical object) 07-03-2013 Unclassified (20 sources) Hearing loss; Translations: [Impaired hearing] Onset: 4 10-07-2023 Unclassified (7 sources) R06.00 - Dyspnea, unspecified,Z86.79 - Personal history of other diseases of the circulatory system,I25.2 - Old myocardial infarction,R94.2 - Abnormal results of pulmonary function studies Unclassified (5 sources) History of cardiomyopathy Unclassified (1 source) Abdominal aortic aneurysm, without rupture, unspecified; Translations: [Abdominal aortic aneurysm, without rupture, unspecified] Onset: 5 Unclassified (1 source) 6 Month Exam Onset: 5 Unclassified (1 source) Acute cough; Translations: [Acute cough] Onset: 5 Past or Other Problems Problem [...] [Melena] Onset: 05-01-2018 Resolved: 06-05-2020 06-05-2020 Episodic Noninfectious gastroenteritis (20 sources) Chronic diarrhea; Translations: [Noninfective gastroenteritis and colitis, unspecified] Onset: 03-29-2024 03-26-2024 Episodic Other aftercare (2 sources) long term (current) use of insulin; Translations: [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, with long-term current use of insulin (HCC)] Onset: 09-20-2022 Episodic Other bone disease and musculoskeletal deformities (20 sources) Pain of left shoulder blade; Translations: [Other specified disorders of bone, shoulder] Onset: 06-09-2020 Resolved: 09-20-2022 06-09-2020 Episodic Other circulatory disease (1 source) Other specified symptoms and signs involving the circulatory and respiratory systems; Translations: [Other specified symptoms and signs involving the circulatory and respiratory systems] Onset: 01-15-2025 Episodic Other connective tissue disease (20 sources) Tenosynovitis; Translations: [Other synovitis and tenosynovitis, unspecified hand] Onset: 06-09-2005 06-09-2005 Episodic Other connective tissue disease (20 sources) Pain in right foot; Translations: [Pain in right foot] Onset: 08-07-2018 Resolved: 09-20-2022 08-07-2018 Episodic Other connective tissue disease (1 source) Other symptoms and signs involving the nervous system; Translations: [Other symptoms and signs involving the nervous system] Onset: 01-30-2025 Episodic Other disorders of stomach and duodenum [...] Onset: 05-11-2007 Resolved: 06-05-2020 06-05-2020 Episodic Other gastrointestinal disorders (2 sources) Dysphagia, unspecified; Translations: [Dysphagia, unspecified] Onset: 01-17-2025 Episodic Other inflammatory condition of skin [...] on breathing] Onset: 03-23-2023 03-23-2023 Episodic Other lower respiratory disease (2 sources) Shortness of breath; Translations: [Shortness of breath] Onset: 03-23-2023 Episodic Other male genital disorders (20 sources) Disorder of prostate; Translations: [Disorder of prostate, unspecified] Onset: 02-06-2019 Resolved: 06-05-2020 06-05-2020 Episodic Other non-traumatic joint disorders (20 sources) Pain in right knee; Translations: [Pain in joint, lower leg] Onset: 03-23-2023 03-23-2023 Episodic Other non-traumatic joint disorders (1 source) [...] other endocrine, nutritional and metabolic disease] Onset: 01-15-2025 Episodic Other skin disorders (20 sources) Actinic keratosis; Translations: [Actinic keratosis] Onset: 08-28-2019 08-28-2019 Episodic Other upper respiratory infections (2 sources) Acute maxillary sinusitis; Translations: [Acute maxillary sinusitis, unspecified] Onset: 01-09-2025 01-09-2025 Episodic Spondylosis; intervertebral disc disorders; other back problems (20 sources) Lumbosacral radiculopathy; Translations: [Radiculopathy, lumbosacral region] Onset: 11-24-2009 11-24-2009 Episodic Unclassified (20 sources) Cardiovascular stress test abnormal; Translations: [Patient encounter status] Onset: 03-23-2017 03-23-2017 Episodic Unclassified (12 sources) Edema of lower extremity; Translations: [Body mass index (BMI) 27.0-27.9, adult] Onset: 12-31-2016 02-16-2017 Episodic Unclassified (20 sources) Type 2 diabetes mellitus without complication; Translations: [Diabetes mellitus type 2, uncontrolled, without complications] Onset: 09-07-2012 Resolved: 06-05-2020 06-05-2020 Results Test Name Value Interpretation Reference Range [facility] Letter Text Normal 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 Pulmonary Nodule: - Recent CT chest ordered by neurology revealed a pulmonary nodule. - Hasmukh expresses concern about the nodule and desires further evaluation. - Denies current dyspnea But is having current respiratory symptoms, constant rhinorrhea clear and thick, coughing fits and at times thick clear sputum. He does have some sinus pressure in face and head as well. Symptoms for last week or so. - Followed by pulmonology; has an upcoming appointment with Dr. 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 Myasthenia Gravis: - Currently managed with prednisone 30 mg daily x1 month. - Taking additional medication for MG. Prostate Cancer: - History of prostate cancer with prostatectomy performed. - No recent follow-up with urology; last PSA levels were reportedly normal. [facility] review: Dementia This is not mentioned in his neurology visits, only cerebral microvascular disease. This provider is unable to verify diagnosis of this at this time, appears to have been added by a Eli Lauren in [facility] 2023 but unable to find connection. 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 Last EKG for cc May 2024 doesn't mention this. Sees cardiology at [facility], last seen to reestablish care 01/15. Has history of CABG. Stress and echo completed in December 2024 as well. They did order a pulmonology consult at that time Prostate Cancer 2001 diagnosis treated with RRP, initial PSA 11. Most recent PSA 0.05 Sep 2024. Changing to history of prostate cancer. PAST MEDICAL HISTORY: PAST MEDICAL HISTORY Diagnosis Date Abdominal aneurysm [...] (without mention of hemorrhage) 04/26/2017 colonoscopy by Cebujaison Esophagitis Generalized osteoarthrosis, unspecified site Gout Internal hemorrhoid 04/26/2017 colonoscopy by Cebujaison Iron deficiency anemia Malignant neoplasm of prostate [...] Xience stent to L circumflex EGD 04/26/2017 [facility] Dr. Nolan Triana EGD 05/23/2024 EGD TRANSORAL BIOPSY SINGLE/MULTIPLE 07/10/2007 PAST SURGICAL HISTORY OF 01/26/2008 stent placement ramus and prox ramus PAST SURGICAL HISTORY OF heart stents PROSTATECTOMY PERINEAL RADICAL 2000 Prostatectomy, radical- Dr. 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 Yousif Triana; next screening colonoscopy in 10yrs, [facility] UNLISTED DIAGNOSTIC GASTROENTEROLOGY PROCEDURE 06/06/2018 ALLERGIES Atorvastatin, Crestor [Rosuvastatin Calcium], Glucosamine, Motrin [Ibuprofen], Pravastatin, and Qezzsof-Qeg-Reh Reductase Inhibitors MEDICATIONS Current Outpatient Medications Medication Sig 0.9 % sodium chloride (NACL 0.9%) infusion Inject 35,400 mL intravenously as directed. Over 2 hours. iv contrast (will be provided with radiology test) CT Chest W -Inject, intravenously, once for 1 dose.No IV access, insert saline lock prior to the beginning of sedation, infusion, injection of imaging exam. Discontinue saline lock post exam. If Pt. has a central line or IVAD, may access for administration according (more content not included)... [facility] ALE[facility] ([id number]) 1940 M Date Time Provider Department 05/08/25 MANUELA LACY INTMWS During your visit today, we recorded the following information about you: Jocelyne Dang 05/08/2025 1:35 PM Signed Patient came into his PCP office wanting to know what they were going to do about his Chest CT results. I informed the patient that this was ordered by Neurology, not his PCP. *Can someone call the patient to go over the results of the CT? Rama Belcher LPN 05/08/2025 1:40 PM Signed Note states have PCP look at CT results. Samson Ragsdale DO 05/08/2025 10:04 PM Signed Please let him know that CT chest from 04/05/[address] Lacy ordered showed IMPRESSION: 1. No findings of anterior mediastinal mass. 2. A faint groundglass nodule in right apex is indeterminate, possibilities include a small focus of infection or inflammatory process or a small indolent adenocarcinoma. Comparison with any previous imaging if available would be helpful. Consider attention on follow-up. This means that they are unsure what the small spot in the right top of the lung is. Recommend repeat CT chest with contrast- he would need IV hydration prior to CT chest as ordered DO Josie Olivas Linda M, LPN 05/09/2025 8:52 AM Signed Spoke with pt gave information provided. Pt voices understanding. He states is seeing Cony Cheng today so will also discuss with her. Please see below instructions and help set up ct as Dr. Ragsdale ordered. Allergies As of Date: 05/08/2025 Noted Allergy Reaction ATORVASTATIN 10/18/2017 16 - Unknown CRESTOR (ROSUVASTATIN CALCIUM) 04/24/2013 14 - Other: See Comments Comments: Muscle pain GLUCOSAMINE 06/27/2017 16 - Unknown Comments: Nerve pain MOTRIN (IBUPROFEN) 01/19/2006 2 - Rash PRAVASTATIN 02/19/2013 14 - Other: See Comments Comments: muscle aches [id number] REDUCTASE INHIBIT*10/09/2014 14 - Other: See Comments Comments: myalgia Date Reviewed: 04/15/2025 Reviewed by: Kathya Khan MA - Fully Assessed Reason for Visit: Results [95] Primary Visit Diagnosis:Nonspecific abnormal results of kidney function study [R94.4] Other Visit Diagnoses:Nodule of apex of right lung [R91.1] Lung nodules [R91.8] Order(s):0.9 % sodium chloride (NACL 0.9%) infusionInject 35,400 mL intravenously as directed. Over 2 hours.Disp: 500 mLRfl: 0 CT CHEST W IVCON [[id number]] Order #: [id number] FUTURE [] iv contrast (will be provided with radiology test)CT Chest W -Inject, intravenously, once for 1 dose.No IV access, insert saline lock prior to the beginning of sedation, infusion, injection of imaging exam. Discontinue saline lock post exam. If Pt. has a central line or IVAD, may access for administration according to line specific nursing protocol. Once exam is complete flush line and de-access according to line specific nursing protocol in theCT contrast administration guidelines link.Disp: 1 eachRfl: 0 Prescriptions as of 05/14/2025 - pyridostigmine (MESTINON) 60 mg tablet Take a half tablet three times a day with food. 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 - amoxicillin-clavulanate potassium (AUGMENTIN) 875-125 mg per tablet Take 1 tablet by mouth two times a day for 7 days. - benzonatate (TESSALON PERLE) 100 mg capsule Take 1 capsule by mouth three times a day as needed for up to 10 days. - 0.9 % sodium chloride (NACL 0.9%) infusion Inject 35,400 mL intravenously as directed. Over 2 hours. - predniSONE (DELTASONE) 5 mg tablet Take 3 tablets by mouth once daily. Take 15 mg once daily for 4 weeks, then 10 mg once daily until directed by doctor to change dose. - allopurinol (ZYLOPRIM) 100 mg tablet Take 1 tablet by mouth once daily. - isosorbide mononitrate ER (IMDUR) 30 mg 24 hr tablet Take 1 tablet by mouth once daily. - losartan (COZAAR) 50 mg tablet Take 0.5 tablets by mouth once daily. - clopidogrel (PLAVIX) 75 mg tablet Take 1 tablet by mouth once daily. - cyanocobalamin (B-12 DOTS) 500 mcg tablet Take 1 tablet by mouth once daily. - zinc sulfate (ZINC-15 ORAL) Take 1 tablet by mouth once daily. - blood sugar diagnostic (TRUE METRIX GLUCOSE TEST STRIP) test strip Use with blood glucose test three times a day. Insulin Dep? Yes DX E11.9 - amLODIPine (NORVASC) 10 mg tablet Take 1 tablet by mouth once daily. In the evening - carvedilol (COREG) 25 mg tablet Take 1 tablet by mouth two times a day. - insulin glargine (BASAGLAR KWIKPEN U-100 INSULIN) 100 unit/mL (3 mL) Inject 10 Units subcutaneously daily at bedtime. - Insulin [place], Disposable, (BD ULTRA-FINE BENNY PEN NEEDLE) 32 gauge x 5/32 Use once daily with Lantus as directed - diclofenac sodium (VOLTAREN) 1 % topical gel Apply 2 g to affected area four times daily. - Blood-Glucose Meter (FREESTYLE LITE METER) monitoring kit (more content not included)... Normal [facility] FRANKYALEJO Jordan ([id number]) 1940 M Date Time Provider Department 04/29/25 ANGELICA SWANN NEUTMN During your visit today, we recorded the following information about you: Angelica Swann RN 04/29/2025 1:28 PM Signed Received call from pt He reports he is now on 20 mg prednisone and feels OK Asking for further taper instructions as his blood glucoses still high Also asking about rituxan infusion PA in [facility] states no PA needed He has number to [facility] He will call to schedule Question if just a one time or q 6 months as order states Was supposed to hear from Dr Lacy regarding closer neurologist and he hasn't Asking also if Dr Lacy reached out to his PCP regarding findings on CT scan Angelica Swann MINE ADMINISTRATOR SUPERVISOR [facility] [place] Manuela Lacy MD 04/30/2025 8:11 AM Signed Please call back to let him know: 1) Closest neuromuscular neurologist is Dr. Brett Gomez in [facility]. Dr. Gomez is aware of patient's request for transfer of care. Patient can call [phone] to make an appointment with Dr. Gomez. 2) If by feels OK he means he is not having MG symptoms, then he can decrease the prednisone to 15 mg for 4 weeks, then 10 mg for 4 weeks. I'll send a prescription for 5 mg tablets to the [facility]. Thanks! Santa Skinner 05/02/2025 2:48 PM Signed This pt stopped in to schedule rituxan tx and was told it would take a half hr, pt declined to schedule when pharmacy confirmed a 4 hr tx. Santa [place]o Allergies As of Date: 04/29/2025 Noted Allergy Reaction ATORVASTATIN 10/18/2017 16 - Unknown CRESTOR (ROSUVASTATIN CALCIUM) 04/24/2013 14 - Other: See Comments Comments: Muscle pain GLUCOSAMINE 06/27/2017 16 - Unknown Comments: Nerve pain MOTRIN (IBUPROFEN) 01/19/2006 2 - Rash PRAVASTATIN 02/19/2013 14 - Other: See Comments Comments: muscle aches NTVSYXM-BOB-UJG REDUCTASE INHIBIT*10/09/2014 14 - Other: See Comments Comments: myalgia Date Reviewed: 04/15/2025 Reviewed by: Kathya Khan MA - Fully Assessed Order(s):predniSONE (DELTASONE) 5 mg tabletTake 3 tablets by mouth once daily. Take 15 mg once daily for 4 weeks, then 10 mg once daily until directed by doctor to change dose.Disp: 90 tabletRfl: 2 Prescriptions as of 05/02/2025 - predniSONE (DELTASONE) 5 mg tablet Take 3 tablets by mouth once daily. Take 15 mg once daily for 4 weeks, then 10 mg once daily until directed by doctor to change dose. - allopurinol (ZYLOPRIM) 100 mg tablet Take 1 tablet by mouth once daily. - isosorbide mononitrate ER (IMDUR) 30 mg 24 hr tablet Take 1 tablet by mouth once daily. - losartan (COZAAR) 50 mg tablet Take 0.5 tablets by mouth once daily. - clopidogrel (PLAVIX) 75 mg tablet Take 1 tablet by mouth once daily. - pyridostigmine (MESTINON) 60 mg tablet Take 60 mg by mouth three times a day. - pyridostigmine (MESTINON) 60 mg tablet Take a half tablet three times a day with food. 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 - cyanocobalamin (B-12 DOTS) 500 mcg tablet Take 1 tablet by mouth once daily. - zinc sulfate (ZINC-15 ORAL) Take 1 tablet by mouth once daily. - blood sugar diagnostic (TRUE METRIX GLUCOSE TEST STRIP) test strip Use with blood glucose test three times a day. Insulin Dep? Yes DX E11.9 - amLODIPine (NORVASC) 10 mg tablet Take 1 tablet by mouth once daily. In the evening - carvedilol (COREG) 25 mg tablet Take 1 tablet by mouth two times a day. - insulin glargine (BASAGLAR KWIKPEN U-100 INSULIN) 100 unit/mL (3 mL) Inject 10 Units subcutaneously daily at bedtime. - Insulin Huntley, Disposable, (BD ULTRA-FINE BENNY PEN NEEDLE) 32 gauge x 5/32 Use once daily with Lantus as directed - diclofenac sodium (VOLTAREN) 1 % topical gel Apply 2 g to affected area four times daily. - Blood-Glucose Meter (FREESTYLE LITE METER) monitoring kit 1 Each as directed. - Lancets lancets Use as instructed - CHOLECALCIFEROL, VITAMIN D3, (VITAMIN D3 ORAL) Take 600 mg by mouth once daily. - CALTRATE-600 PLUS VITAMIN D3 600 MG-200 UNIT ORAL TAB TAKE TWO TABLETS DAILY. Meds Comments as of 02/29/2008: Antiplatelet drugs (eg, ticlopidine, clopidogrel (plavix), aspirin, abciximab, dipyridamole, eptifibatide, tirofiban): May increase risk of bleeding when taken with diclfenac. 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 Normal [facility] CNOVon 04-15-2025 CNOV Office Visit (NENMMN ) -- MALCUIT,ALEJO H ([id number]) 1940 M Date Time Provider Department 04/15/25 3:00 PM MANUELA LACY NENMMN During your visit today, we recorded the following information about you: Pulse Blood pressure Weight Height 80/minute 142/67 70.8 kg 1.727 m Manuela Lacy MD 04/18/2025 3:57 PM Signed Last Office Visit: 03/18/2025 Myasthenia Gravis History: Onset: 11/2024 Body region: oculobulbar Serostatus: AchR B/B/M positive EMG/RNS: not done Thymus status: intact, CT chest 04/05/2025 negative for mass Previous treatment trials: prednisone 30 mg Crisis history: none Last exacerbation: none Current symptomatic therapy: pyridostigmine 30 mg TID Current immunotherapy: prednisone 30 mg daily Side effects: hyperglycemia Plan at last office visit: - Start prednisone 30 mg daily; discussed risks and benefits, including potential hyperglycemia, immunosuppression, and other side effects. - Continue pyridostigmine 60 mg ? tablet TID; may increase to 1 tablet TID if needed for symptom control. - Order CT chest to evaluate for thymoma. - Provided education on disease mechanism, potential triggers for exacerbation (infection, stress, certain medications), and the importance of medication adherence. - Provided list of medications to avoid. - Advised to call if symptoms worsen or if new symptoms develop. - Follow-up in 1 month to reassess symptoms and medication tolerance. Recording using SureVisit software for draft documentation of the visit was discussed with the patient/authorized provider service representative; all questions welcomed and answered. Patient/authorized provider service representative agreed to proceed S: Hasmukh Gage reports improvement in swallowing and ocular symptoms but notes persistent drooling from the corners of his mouth. He experiences tongue biting on the left side when chewing on the right but not when chewing on the left. He does not endorse choking or needing to modify his diet to prevent choking. He reports stable weight after a previous loss of 22 pounds over eight weeks earlier this year and is concerned about maintaining muscle mass. He consumes a protein supplement (Premier Protein) providing 30 grams of protein daily unless he eats a large meal. He reports occasional diplopia when fatigued and looking hard to the left but does not experience it daily. He notes a sensation of puffiness in his eyes, which he attributes to prednisone use. He does not endorse significant ptosis, stating it occurs only when tired. He describes his speech as normal and does not report issues with arm elevation or rising from a chair. He does not endorse jaw fatigue. He reports chronic exertional dyspnea, which he attributes to longstanding heart problems. He notes that his right foot tends to go to sleep when sitting, requiring caution when standing to prevent falls. He is currently taking pyridostigmine 30 mg three times daily and prednisone 30 mg daily. He reports difficulty cutting the pyridostigmine tablets in half due to them crumbling and inquires about adjusting the dosing schedule. He expresses a desire to reduce prednisone due to side effects, including elevated blood glucose levels, which have increased from the 90s to 130-159 mg/dL. He has discontinued milk and ice cream due to constipation. 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 He expresses concern about maintaining finger dexterity for playing music. MG - Activities of Daily Living (MG-ADL) 1. Talkin=Normal 2. Chewin=Normal can bite tongue if he chews on the right 3. Swallowin=Normal eats slowly 4. Breathin=Shortness of breath with exertion related to heart problems? 5. Impairment of ability to brush teeth or comb hair: 0=None 6. Impairment of ability to arise from a chair: 0=None 7. Double vision: 1=Occurs, but not daily with extreme left gaze 8. Eyelid droop: 1=Occurs, but not daily MG-ADL Total Score: 3 O: BP 142/67 (BP Site: Left Arm, BP Position: Sitting, BP Cuff Size: Regular Adult) Pulse 80 Ht 172.7 cm (5' 8) Wt 70.8 kg (156 lb) SpO2 98% BMI 23.72 kg/m? Able to count to 78 in one breath MS: alert and responsive, language intact CN: EOMI, L ptosis present 2mm but no worsening with 1 minute of sustained upgaze, with upgaze diplopia develops after 30 seconds, V1-V3 intact bilaterally, face symmetrical, hearing grossly intact bilaterally, palatal elevation and tongue protrusion midline, no dysarthria, bilateral neck rotation 5/5, shoulder shrug 5/5 Motor: 5/5 neck flexion and extension, nl tone and bulk, able to arise from a chair without using hands, no fatigue of deltoids with repetitive testing Strength: Right Left Infraspinatus 5 5 Deltoids 5 5 Biceps 5 5 Triceps 5 5 Pronators 5 4 Supinators 5 5 Wrist Extensors 5 5 (more content not included)... Normal [facility] CT CHEST WO IVCONon 04-05-[address] CHEST WO IVCON * * *Final Report* * * DATE OF EXAM: Apr 05 2025 1:57PM [facility] 0541 - CT CHEST WO IVCON / PROCEDURE REASON: Myasthenia gravis (HCC) * * * * Physician Interpretation * * * * EXAMINATION: CHEST CT WITHOUT CONTRAST CLINICAL HISTORY: Myasthenia gravis Technique: Spiral CT acquisition of the chest from the thoracic inlet to the upper abdomen without contrast. MQ: [id number] CT Radiation dose: Integrated Dose-length product (DLP) for this visit = 191 mGy*cm CT Dose Reduction Employed: Automated exposure control (AEC) Comparison: Type of study and date/time RESULT: Limitations: None. Lines, tubes, and devices: None. Lung parenchyma and airways: No consolidation. Mild scarring at lung apices. There is a faint groundglass nodule in right upper lobe measuring about 5 mm on image 49 series 6. The central airways are patent. Pleural space: No pleural effusion. No pleural thickening. Lower neck, lymph nodes, and mediastinum: No findings of an anterior mediastinal mass. The imaged thyroid gland is normal. No lymphadenopathy in the supraclavicular, axillary, mediastinal, or hilar regions. Heart, pericardium, and thoracic vessels: The thoracic aorta and main pulmonary artery are normal in caliber. The cardiac chambers are normal in size. Multivessel coronary artery atherosclerotic calcifications are noted, although the study is not optimized for coronary assessment. No pericardial effusion or thickening. Bones and soft tissues: No destructive bone lesion. Chest wall is unremarkable. Upper abdomen: No abnormality in the imaged upper abdomen. Localizer images: No additional findings. IMPRESSION: 1. No findings of anterior mediastinal mass. 2. A faint groundglass nodule in right apex is indeterminate, possibilities include a small focus of infection or inflammatory process or a small indolent adenocarcinoma. Comparison with any previous imaging if available would be helpful. Consider attention on follow-up. Acuity: Incidental Finding: Non solid: <6 mm (solitary nodule) Routing Code: N/A Recommendation: No imaging follow-up is recommended Time Frame: N/A --END OF FINDING-- Green House Manager: JASON Transcribe Date/Time: Apr 08 2025 5:03A Dictated by : ROSARIO AVELAR MD This examination was interpreted and the report reviewed and electronically signed by: ROSARIO AVELAR MD on Apr 08 2025 5:07AM EST [id number] ACTIONABLE Invalid Interpretation Code [facility] CNOVon 04-02-2025 CNOV Office Visit (FAMPWS ) -- ALEJO GAGE ([id number]) 1940 M Date Time Provider Department 04/02/25 2:40 PM [facility] During your visit today, we recorded the following information about you: Temperature Pulse Respiration Blood pressure 96.8 degrees 64/minute 20/minute 130/60 Weight 71.7 kg Samson Ragsdale DO 04/02/2025 4:03 PM Signed Prune juice 4-8 oz a day Apple cider vinegar + lemon juice + warm water daily If this isn't helping your bowels then need to be taking 1/2 -1 capful of Miralax daily in water in the morning Samson Ragsdale DO 04/09/2025 7:48 AM Signed Patient presents with: 6 Month Exam HPI: Alejo Gage is a 84 year old male who presents to the office today for review of health conditions. Concerns today: Stage 3 CKD, has been seen by Nephrology, asymptomatic. Cerebral microvascular disease, seen by Neurologist, no recent new symptoms. Trying to improve his muscle strength- able to walk without falls at this time Diagnosed with Myasthenia Gravis by Neurologist. Is starting on new medication to help with symptom management for vision, eyelids, muscle weakness and fatigue. Also to have additional testing of thymus. Mr. Gage has past history of diabetes. [...] HgA1C was Hemoglobin A1C (%) Date Value 03/25/2025 6.1 09/17/2024 6.3 09/09/2021 6.1 06/08/2021 6.0 ) Last Ophthalmology exam was within the past 3 months Mr. Gage reports history of hyperlipidemia. Current therapy includes diet and exercise. Denies side effects of muscle weakness or achiness. His most recent lipid panels are reviewed. Cholesterol, Total (mg/dL) Date Value 03/25/2025 201 09/09/2021 246 HDL Cholesterol (mg/dL) Date Value 03/25/2025 55 09/09/2021 40 LDL Cholesterol, Calculated (mg/dL) Date Value 03/25/2025 129 09/09/2021 178 Triglyceride (mg/dL) Date Value 03/25/2025 96 09/09/2021 142 Mr. Gage indicates a history of hypertension and states that he is feeling well and denies any symptoms referable to elevated blood pressure. Specifically denies headache, chest pain, palpitations, dyspnea, and peripheral edema. Patient denies any side effects of his medication(s) and is compliant with their regimen. Last 3 Encounter BP Readings: Date: BP: 04/02/2025 130/60 03/18/2025 126/65 02/20/2025 121/67 He watches his diet for sodium, low fat and low cholesterol some of the time. He does not check BP's generally. Alejo gets sporadic irregular exercise. PAST MEDICAL HISTORY [...] by Cegiovanni Esophagitis Generalized osteoarthrosis, unspecified site Gout Internal hemorrhoid 04/26/2017 colonoscopy by Cebul Iron [...] Xience stent to L circumflex EGD 04/26/2017 [facility] Dr. Nolan Triana EGD 05/23/2024 EGD TRANSORAL BIOPSY SINGLE/MULTIPLE 07/10/2007 PAST SURGICAL HISTORY OF 01/26/2008 stent placement ramus and prox ramus PAST SURGICAL HISTORY OF heart stents PROSTATECTOMY PERINEAL RADICAL 1999 Prostatectomy, radical- Dr. 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 Yousif Triana; next screening colonoscopy in 10yrs, Cohen (more content not included)... Normal [facility] Anion gap in Serum or Plasma Ordered By: Marcial Monae on 03-26-2025 Anion gap [Moles/Vol] 13 mmol/L 5-15 [facility] BUN/creatinine ratioOrdered By: Marcial Monae on 03-26-2025 Urea nitrogen/Creatinine [Mass ratio] 19.6 mg/mg 10-20 [facility] Bilirubin Test strip Ql (U)O rdered By: Marcial Monae on 03-26-2025 Bilirubin Ql (U) Negative Negative [facility] Bilirubin, totalOrdered By: Marcial Monae on 03-26-2025 Bilirubin [Mass/Vol] 0.42 mg/dL 0.00-1.30 [facility] Carbon dioxide, total [Moles /volume] in Central venous bloodOrdered By: Marcial Monae on 03-26-2025 CO2 [Moles/Vol] 24.7 mmol/L 21.0-32.0 [facility] Chloride assayOrdered By: Pepe Monae on 03-26-2025 Chloride [Moles/Vol] 103 mmol/L 98-108 [facility] Comprehensive Metabolic Prof ilon 03-26-2025 Albumin [Mass/Vol] 4.0 g/dL Normal 3.4-4.8 [facility] Comment on above: Performed By: #### L 500.4050, L503.7505, L500.4100 #### [facility] [address] [place], [address] Albumin/Globulin [Mass ratio] 1.5 {ratio} Normal 0.9-2.4 [facility] Comment on above: Performed By: #### L 500.4050, L503.7505, L500.4100 #### [facility] [address] [place], [address] ALK PHOS 113 U/L Normal 40-129 [facility] Comment on above: Performed By: #### L 500.4050, L503.7505, L500.4100 #### [facility] [address] [place], [address] ALT [Catalytic activity/Vol] 14 U/L Normal <=46 [facility] Comment on above: Performed By: #### L 500.4050, L503.7505, L500.4100 #### [facility] [address] [place], [address] AST [Catalytic activity/Vol] 15 U/L Normal <=37 [facility] Comment on above: Performed By: #### L 500.4050, L503.7505, L500.4100 #### [facility] [address] [place], [address] Bilirubin [Mass/Vol] 0.42 mg/dL Normal 0.00-1.30 [facility] Comment on above: Performed By: #### L 500.4050, L503.7505, L500.4100 #### [facility] [address] [place], [address] BUN/CRE 19.6 RATIO Normal 10-20 [facility] Comment on above: Performed By: #### L 500.4050, L503.7505, L500.4100 #### [facility] [address] [place], [address] Calcium [Mass/Vol] 9.3 mg/dL Normal 7.6-11.0 [facility] Comment on above: Performed By: #### L 500.4050, L503.7505, L500.4100 #### [facility] [address] [place], [address] Chloride [Moles/Vol] 103 mmol/L Normal 98-108 [facility] Comment on above: Performed By: #### L 500.4050, L503.7505, L500.4100 #### [facility] [address] [place], [address] CO2 [Moles/Vol] 24.7 mmol/L Normal 21.0-32.0 [facility] Comment on above: Performed By: #### L 500.4050, L503.7505, L500.4100 #### [facility] [address] [place], [address] Creatinine [Mass/Vol] 1.68 mg/dL High 0.70-1.20 [facility] Comment on above: Performed By: #### L 500.4050, L503.7505, L500.4100 #### [facility] [address] [place], [address] GAP 13 Normal 5-15 [facility] Comment on above: Performed By: #### L 500.4050, L503.7505, L500.4100 #### [facility] [address] [place], [address] GFR/1.73 sq M.predicted among non-blacks MDRD (S/P/Bld) [Vol rate/Area] 40 mL/min/{1.73_m2} Low >60 [facility] Comment on above: Result Comment: mL/m in/1.73m2 CKD-EPI Creatinine Equation (2020) Performed By: #### L 500.4050, L503.7505, L500.4100 #### [facility] [address] [place], [address] Globulin (S) [Mass/Vol] 2.8 g/dL Normal 2.2-4.2 [facility] Comment on above: Performed By: #### L 500.4050, L503.7505, L500.4100 #### [facility] [address] [place], [address] Glucose [Mass/Vol] 127 mg/dL High 70-99 [facility] Comment on above: Performed By: #### L 500.4050, L503.7505, L500.4100 #### [facility] [address] [place], [address] Potassium [Moles/Vol] 4.4 mmol/L Normal 3.3-5.1 [facility] Comment on above: Performed By: #### L 500.4050, L503.7505, L500.4100 #### [facility] [address] [place], [address] Sodium [Moles/Vol] 141 mmol/L Normal 133-145 [facility] Comment on above: Performed By: #### L 500.4050, L503.7505, L500.4100 #### [facility] [address] [place], [address] T PROT 6.8 g/dL Normal 5.9-8.4 [facility] Comment on above: Performed By: #### L 500.4050, L503.7505, L500.4100 #### [facility] [address] [place], [address] Urea nitrogen [Mass/Vol] 33 mg/dL High 4-19 [facility] Comment on above: Performed By: #### L 500.4050, L503.7505, L500.4100 #### [facility] [address] [place], [address] Glomerular filtration rate ( GFR) estimation/1.73 sq m using serum, plasma, or whole bOrdered By: Marcial Monae on 03-26-2025 GFR/1.73 sq M.predicted among non-blacks MDRD (S/P/Bld) [Vol rate/Area] 40 mL/min/{1.73_m2} Low >60 [facility] Comment on above: mL/min/1.73m2 CKD-EP I Creatinine Equation (2020) Ketones Test strip Ql (U)Ord ered By: Marcial Monae on 03-26-2025 Ketones Ql (U) Negative Negative [facility] - Chemistry and C hemistry - challengeOrdered By: Marcial Monae on 03-26-2025 AST [Catalytic activity/Vol] 15 U/L <38 [facility] Potassium measurement (mass/ volume)Ordered By: Marcial Monae on 03-26-2025 Potassium (Unsp spec) [Mass/Vol] 4.4 mmol/L 3.3-5.1 [facility] Protein Test strip Ql (U)Ord ered By: Marcial Monae on 03-26-2025 Protein Ql (U) 30 mg/dl High Negative [facility] Serum creatinine measurement (mass/volume)Ordered By: Marcial Monae on 03-26-2025 Creatinine [Mass/Vol] 1.68 mg/dL High 0.70-1.20 [facility] Serum globulin measurementOr dered By: Marcial Monae on 03-26-2025 Globulin (S) [Mass/Vol] 2.8 g/dL 2.2-4.2 [facility] Serum glucose measurement (m ass/volume)Ordered By: Marcial Monae on 03-26-2025 Glucose [Mass/Vol] 127 mg/dL High 70-99 [facility] Serum or plasma alanine regalado otransferase (ALT) measurementOrdered By: Marcial Monae on 03-26-2025 ALT [Catalytic activity/Vol] 14 U/L <47 [facility] Serum or plasma albumin waldemar urement (mass/volume)Ordered By: Marcial Monae on 03-26-2025 Albumin [Mass/Vol] 4.0 g/dL 3.4-4.8 [facility] Serum or plasma albumin/glob ulin mass ratioOrdered By: Marcial Monae on 03-26-2025 Albumin/Globulin [Mass ratio] 1.5 {ratio} 0.9-2.4 [facility] Serum or plasma alkaline garret sphatase measurementOrdered By: Marcial Monae on 03-26-2025 ALP [Catalytic activity/Vol] 113 U/L 40-129 [facility] Serum or plasma calcium waldemar urement (mass/volume)Ordered By: Marcial Monae on 03-26-2025 Calcium [Mass/Vol] 9.3 mg/dL 7.6-11.0 [facility] Serum or plasma urea nitroge n measurement (mass/volume)Ordered By: Marcial Monae on 03-26-2025 Urea nitrogen [Mass/Vol] 33 mg/dL High 4-19 [facility] Sodium levelOrdered By: Adam Monae on 03-26-2025 Sodium [Moles/Vol] 141 mmol/L 133-145 [facility] Total proteinOrdered By: Aric Monae on 03-26-2025 Protein [Mass/Vol] 6.8 g/dL 5.9-8.4 [facility] Urinalysis, Routine (Dipstic k)on 03-26-2025 BILIRUBIN URINE Negative Normal Negative [facility] Comment on above: Order Comment: Urine , Random Performed By: #### L 500.4050, L4 #### [facility] [address] [place], [address] GLUCOSE, UR Normal Normal Normal [facility] Comment on above: Order Comment: Urine , Random Performed By: #### L 500.405, L4 #### [facility] [address] [place], [address] KETONE UR Negative Normal Negative [facility] Comment on above: Order Comment: Urine , Random Performed By: #### L 500.405, L4 #### [facility] [address] [place], [address] LEUK ESTERASE Negative Normal Negative [facility] Comment on above: Order Comment: Urine , Random Performed By: #### L 500.405, L4 #### [facility] [address] [place], [address] OCCULT BLOOD-UR 10 /ul Abnormal Negative [facility] Comment on above: Order Comment: Urine , Random Performed By: #### L 500.405, L4 #### [facility] [address] [place], [address] pH UR 6.5 Normal 5.0 - 8.0 [facility] Comment on above: Order Comment: Urine , Random Performed By: #### L 500.4050, L400 #### [facility] [address] [place], [address] PROT DIPSTX 30 mg/dl Abnormal Negative [facility] Comment on above: Order Comment: Urine , Random Performed By: #### L 500.4050, L4 #### [facility] [address] [place], [address] SP.GR. DIPSTX 1.010 Normal 1.002-1.030 [facility] Comment on above: Order Comment: Urine , Random Performed By: #### L 500.4050, L400.2010 #### [facility] [address] [place], [address] UROBILI Normal Normal Normal [facility] Comment on above: Order Comment: Urine , Random Performed By: #### L 500.4050, L400.2010 #### [facility] [address] [place], [address] Urine clarityOrdered By: Aric Monae on 03-26-2025 Clarity (U) Sl. Cloudy Normal Clear [facility] Comment on above: Order Comment: Urine , Random Performed By: #### L 500.405, L4.2010 #### [facility] [address] [place], [address] Urine color determinationOrd ered By: Marcial Monae on 03-26-2025 Color (U) Yellow Normal Yellow [facility] Comment on above: Order Comment: Urine , Random Performed By: #### L 500.4050, L400.2010 #### [facility] [address] [place], [address] Urine glucose detectionOrder ed By: Marcial Monae on 03-26-2025 Glucose Ql (U) Normal mg/dl Normal [facility] Urine leukocyte esterase det ection by dipstickOrdered By: Marcial Monae on 03-26-2025 Leukocyte esterase Test strip Ql (U) Negative Negative [facility] Urine nitrite test by dipsti ckOrdered By: Marcial Monae on 03-26-2025 Nitrite Ql (U) Negative Normal Negative [facility] Comment on above: Order Comment: Urine , Random Performed By: #### L 500.4050, L400.2010 #### [facility] [address] [place], [address] Urine pHOrdered By: Marcialsamra Monae on 03-26-2025 pH (U) 6.5 [pH] 5.0 - 8.0 [facility] Urine specific gravity measu rementOrdered By: [facility] on 03-26-2025 Specific gravity (U) [Rel density] 1.010 1.002-1.030 [facility] Urine urobilinogen measureme ntOrdered By: Marcial [facility]-26-[facility]25 Urobilinogen Ql (U) Normal mg/dl Normal [facility] 25(OH)D3 SerPl-mCncon 2024 25-hydroxyvitamin D3 [Mass/Vol] 78.9 ng/mL Normal 31.0-80.[address] [facility] Comment on above: Order Comment: Speci men Type: BLOOD SPECIMENOrdering Facility: [facility] Address: [address] [place] [address] Performed By: #### 1 989-3 ####[facility] [id number] [place] [address] [place] ALBUMIN/CREATININE RATIO, UR INEon 03-25-2025 Albumin DL <= 20 mg/L (U) [Mass/Vol] mg/dL Normal [facility] Comment on above: Order Comment: Speci men Type: URINE SPECIMENOrdering Facility: [facility] Address: [address] [place] [address] Performed By: #### U ACR ####[facility] LABIA [id number] [place] [address] [place] Albumin/Creatinine (U) [Mass ratio] <17 Normal <[address] [facility] Comment on above: Order Comment: Speci men Type: URINE SPECIMENOrdering Facility: [facility] Address: [address] [place] [address] Result Comment: Adul t Male and Female Nephrotic Criteria: <30 mg/g is considered normal to mildly increased 30-300 mg/g is considered moderately increased >300 mg/g is considered severely increased KDIGO. (2013). KDIGO 2012 Clinical Practice Guideline for the Evaluation and Management of Chronic Kidney Disease. Official Journal of the International Society of Nephrology, 3(1), 1-150. Performed By: #### U ACR ####[facility] LABCLIA [id number] [address] [place] [address] [place] Creatinine (U) [Mass/Vol] 70.8 mg/dL Normal 20.0-300.[address] [facility] Comment on above: Order Comment: Speci men Type: URINE SPECIMENOrdering Facility: [facility] Address: [address] [place] [address] Performed By: #### U ACR ####[facility] LABCLIA [id number] [address] [place] [address] [place] CBC panel Auto (Bld)on 03-25 Erythrocyte distribution width (RBC) [Ratio] 17.1 % High 11.5-15.[address] [facility] Comment on above: Order Comment: Speci men Type: BLOOD SPECIMENOrdering Facility: [facility] Address: [address] [place] [address] Performed By: #### 5 8410-2 ####[facility] LABIA [id number] [address] [address] [place] Hematocrit (Bld) [Volume fraction] 37.9 % Low 39.0-51.[address] [facility] Comment on above: Order Comment: Speci men Type: BLOOD SPECIMENOrdering Facility: [facility] Address: [address] [place] [address] Performed By: #### 5 8410-2 ####[facility] LABIA [id number] [address] [address] [place] Hemoglobin (Bld) [Mass/Vol] 11.9 g/dL Low 13.0-17.[address] [facility] Comment on above: Order Comment: Speci men Type: BLOOD SPECIMENOrdering Facility: [facility] Address: [address] [place] [address] Performed By: #### 5 8410-2 ####[facility] LABCLIA [id number] [place] [address] [place] MCH (RBC) [Entitic mass] 27.1 pg Normal 26.0-34.[address] [facility] Comment on above: Order Comment: Speci men Type: BLOOD SPECIMENOrdering Facility: [facility] Address: [address] [place] [address] Performed By: #### 5 8410-2 ####[facility] LABIA [id number] [place] [address] [place] MCHC (RBC) [Mass/Vol] 31.4 g/dL Normal 30.5-36.0 [facility] Comment on above: Order Comment: Speci men Type: BLOOD SPECIMENOrdering Facility: [facility] Address: [address] [place] [address] Performed By: #### 5 8410-2 ####[facility] LABIA [id number] [place] [address] [place] MCV (RBC) [Entitic vol] 86.3 fL Normal 80.0-100.[address] [facility] Comment on above: Order Comment: Speci men Type: BLOOD SPECIMENOrdering Facility: [facility] Address: [address] [place] [address] Performed By: #### 5 8410-2 ####[facility] LABIA [id number] [place] [address] [place] Nucleated RBC (Bld) [#/Vol] 10*3/uL Normal <0.[address] [facility] Comment on above: Order Comment: Speci men Type: BLOOD SPECIMENOrdering Facility: [facility] Address: [address] [place] [address] Performed By: #### 5 8410-2 ####[facility] LABIA [id number] [place] [address] [place] Platelet mean volume (Bld) [Entitic vol] 10.1 fL Normal 9.0-12.[address] [facility] Comment on above: Order Comment: Speci men Type: BLOOD SPECIMENOrdering Facility: [facility] Address: [address] [place] [address] Performed By: #### 5 8410-2 ####[facility] LABIA [id number] [place] [address] [place] Platelets (Bld) [#/Vol] 360 10*3/uL Normal 150-[address] [facility] Comment on above: Order Comment: Speci men Type: BLOOD SPECIMENOrdering Facility: [facility] Address: [address] [place] [address] Performed By: #### 5 8410-2 ####[facility] LABCLIA [id number] [place] [address] [place] RBC (Bld) [#/Vol] 4.39 10*6/uL Normal 4.20-6.00 [facility] Comment on above: Order Comment: Speci men Type: BLOOD SPECIMENOrdering Facility: [facility] Address: [address] [place] [address] Performed By: #### 5 8410-2 ####[facility] LABIA [id number] [place] [address] [place] WBC (Bld) [#/Vol] 14.85 10*3/uL High 3.70-11.00 [place] Comment on above: Order Comment: Speci men Type: BLOOD SPECIMENOrdering Facility: [facility] Address: [address] [place] [address] Performed By: #### 5 8410-2 ####[facility] LABCLIA [id number] [place] [address] [place] Comprehensive metabolic 2000 panelon 03-25-2025 Albumin [Mass/Vol] 3.9 g/dL Normal 3.9-4.9 [facility] Comment on above: Order Comment: Speci men Type: BLOOD SPECIMENOrdering Facility: [facility] Address: [address] [place] [address] Performed By: #### 2 4323-8, 46346-2, 18415-3, ####[facility] LABCLIA [id number] [place] [address] [place] ALP [Catalytic activity/Vol] 100 U/L Normal 38-[address] [facility] Comment on above: Order Comment: Speci men Type: BLOOD SPECIMENOrdering Facility: [facility] Address: [address] [place] [address] Performed By: #### 2 4323-8, 26952-1, 70395-4, ####[facility] LABCLIA [id number] [place] [address] [place] ALT [Catalytic activity/Vol] 12 U/L Normal 10-[address] [facility] Comment on above: Order Comment: Speci men Type: BLOOD SPECIMENOrdering Facility: [facility] Address: [address] [place] [address] Performed By: #### 2 4323-8, 19795-8, 72280-2, ####[facility] LABIA [id number] [place] [address] [place] Anion gap [Moles/Vol] 13 mmol/L Normal 8-15 [facility] Comment on above: Order Comment: Speci men Type: BLOOD SPECIMENOrdering Facility: [facility] Address: [address] [place] [address] Performed By: #### 2 4323-8, 36620-6, 13448-8, ####[facility] LABCLIA [id number] [address] [address] [place] AST [Catalytic activity/Vol] 17 U/L Normal 14-[address] [facility] Comment on above: Order Comment: Speci men Type: BLOOD SPECIMENOrdering Facility: [facility] Address: [address] [place] [address] Performed By: #### 2 4323-8, 26817-5, 41346-8, ####[facility] LABCLIA [id number] [facility] AV[facility]PROVID[facility]ALK [address] [address] [place] Bilirubin [Mass/Vol] 0.3 mg/dL Normal 0.2-1.3 [place] Comment on above: Order Comment: Speci men Type: BLOOD SPECIMENOrdering Facility: [facility] Address: [address] [place] [address] Performed By: #### 2 4323-8, 40414-6, 34738-2, ####[facility] LABCLIA [id number] [place] [address] [place] Calcium [Mass/Vol] 9.3 mg/dL Normal 8.5-10.2 [facility] Comment on above: Order Comment: Speci men Type: BLOOD SPECIMENOrdering Facility: [facility] Address: [address] [place] [address] Performed By: #### 2 4323-8, 45357-0, , ####[facility] LABCLIA [id number] [address] [address] [place] Chloride [Moles/Vol] 105 mmol/L Normal 98-107 [place] Comment on above: Order Comment: Speci men Type: BLOOD SPECIMENOrdering Facility: [facility] Address: [address] [place] [address] Performed By: #### 2 4323-8, 84005-3, 99177-1, ####[facility] LABCLIA [id number] [facility] [address] [address] [place] CO2 [Moles/Vol] 24 mmol/L Normal 22-[address] [facility] Comment on above: Order Comment: Speci men Type: BLOOD SPECIMENOrdering Facility: [facility] Address: [address] [place] [address] Performed By: #### 2 4323-8, 15737-5, 42967-5, ####[facility] LABCLIA [id number] [address] [address] [place] Creatinine [Mass/Vol] 1.71 mg/dL High 0.73-1.22 [facility] Comment on above: Order Comment: Speci men Type: BLOOD SPECIMENOrdering Facility: [facility] Address: [address] [place] [address] Performed By: #### 2 4323-8, 19092-2, 33183-6, ####[facility] LABIA [id number] [place] [address] [place] eGFRcr SerPlBld CKD-EPI 2020 39 mL/min/1.73m??? Low >=[address] [facility] Comment on above: Order Comment: Speci men Type: BLOOD SPECIMENOrdering Facility: [facility] Address: [address] [place] [address] Result Comment: Jeanette mated Glomerular Filtration Rate [...] actual GFR. Performed By: #### 2 4323-8, 29203-2, 89548-5, ####[facility] LABCLIA [id number] [address] [address] [place] Glucose [Mass/Vol] 74 mg/dL Normal 74-99 [facility] Comment on above: Order Comment: Speci men Type: BLOOD SPECIMENOrdering Facility: [facility] Address: [address] [place] [address] [place] [id number] Result Comment: The [place] Diabetes Association (ADA) provides guidance for cutoff [...] Standards of Medical Care in Diabetes 2016, [place] [employer] Association. Diabetes Care. 2016.39(Suppl 1). Performed By: #### 2 4323-8, 19474-0, 37013-7, ####[facility] LABCLIA [id number] [place] [address] [place] Potassium [Moles/Vol] 4.4 mmol/L Normal 3.7-5.1 [facility] Comment on above: Order Comment: Speci men Type: BLOOD SPECIMENOrdering Facility: [facility] Address: [address] [place] [id number] Performed By: #### 2 4323-8, 30073-7, , ####[facility] LABIA [id number] [place] [address] [place] Protein [Mass/Vol] 6.7 g/dL Normal 6.3-8.0 [facility] Comment on above: Order Comment: Speci men Type: BLOOD SPECIMENOrdering Facility: [facility] Address: [address] [place] [address] Performed By: #### 2 4323-8, 45468-4, , ####[facility] LABCLIA [id number] [place] [address] [place] Sodium [Moles/Vol] 142 mmol/L Normal 136-144 [facility] Comment on above: Order Comment: Speci men Type: BLOOD SPECIMENOrdering Facility: [facility] Address: [address] [place] [address] Performed By: #### 2 4323-8, 28377-4, 61230-7, ####[facility] LABCLIA [id number] [address] [address] [place] Urea nitrogen [Mass/Vol] 32 mg/dL High 9-[address] [facility] Comment on above: Order Comment: Speci men Type: BLOOD SPECIMENOrdering Facility: [facility] Address: [address] [place] [address] Performed By: #### 2 4323-8, 59830-6, 23104-2, ####[facility] LABIA [id number] [place] [address] [place] HbA1c (Bld)on 03-25-2025 Average glucose Estimated from glycated hemoglobin (Bld) [Mass/Vol] 128 mg/dL Normal [facility] Comment on above: Order Comment: Ryani men Type: BLOOD SPECIMENOrdering Facility: [facility] Address: [address] [place] [address] Result Comment: eAG: (Estimated average glucose) is a calculated value from HgbA1c and is provider service representative of the average blood glucose level in the last 2-3 month period. Performed By: #### 5 5454-3 ####[facility] LABIA [id number] [address] [address] [place] HbA1c (Bld) [Mass fraction] 6.1 % High 4.3-5.[address] [facility] Comment on above: Order Comment: Cyndy men Type: BLOOD SPECIMENOrdering Facility: [facility] Address: [address] [place] [address] Result Comment: [place] Diabetes Association guidelines indicate that patients with HgbA1c in the range 5.7-6.4% are at increased risk for development of diabetes, and intervention by lifestyle modification may be beneficial. HgbA1c greater or equal to 6.5% is considered diagnostic of diabetes. Performed By: #### 5 5454-3 ####[facility] LABIA [id number] [place] [address] [place] Iron and Iron binding capaci ty panelon 03-25-2025 Iron [Mass/Vol] 32 ug/dL Low 41-[address] [facility] Comment on above: Order Comment: Speci men Type: BLOOD SPECIMENOrdering Facility: [facility] Address: [address] [place] [address] Performed By: #### 2 4323-8, 29680-8, 61079-2, 75354-4 ####[facility] [id number] [address] STATES OF [facility] Iron binding capacity [Mass/Vol] 374 ug/dL Normal 232-[address] [facility] Comment on above: Order Comment: Speci men Type: BLOOD SPECIMENOrdering Facility: [facility] Address: [address] [place] [address] Performed By: #### 2 4323-8, 65070-0, 61027-9, 74405-2 ####[facility] [id number] [place] [address] [place] Iron/TIBC [Molar ratio] 8.6 % Low 15.0-57.[address] [facility] Comment on above: Order Comment: Speci men Type: BLOOD SPECIMENOrdering Facility: [facility] Address: [address] [place] [address] Performed By: #### 2 4323-8, 37120-4, 89513-6, 84623-7 ####[facility] LABIA [id number] [place] [id number] [place] Lipid 1996 panelon 5 Cholesterol [Mass/Vol] 201 mg/dL High <200 [facility] Comment on above: Order Comment: Speci men Type: BLOOD SPECIMENOrdering Facility: [facility] Address: [address] [place] [address] Result Comment: <200 mg/dL, Desirable 200-239 mg/dL, Borderline high >239 mg/dL, High Performed By: #### 2 4323-8, 00869-8, 22407-7, ####[facility] LABCLIA [id number] [address] [address] [place] Cholesterol in HDL [Mass/Vol] 55 mg/dL Normal >[address] [facility] Comment on above: Order Comment: Speci men Type: BLOOD SPECIMENOrdering Facility: [facility] Address: [address] [place] [address] Result Comment: 40-5 9 mg/dL, Acceptable >59 mg/dL, High: Negative risk factor for coronary heart disease <40 mg/dL, Low: Positive risk factor for coronary heart disease Performed By: #### 2 4323-8, 42411-5, , ####[facility] LABCLIA [id number] [address] [place] [address] [place] Cholesterol in LDL [Mass/Vol] 129 mg/dL High <[address] [facility] Comment on above: Order Comment: Speci men Type: BLOOD SPECIMENOrdering Facility: [facility] Address: [address] [place] [address] Result Comment: <100 mg/dL, Optimal 100-129 mg/dL, Near optimal/above optimal 130-159 mg/dL, Borderline high 160-189 mg/dL, High >189 mg/dL, Very high Secondary prevention optimal LDL Cholesterol levels are recommended to be <70 mg/dL LDL cholesterol is calculated using the Stein-NIH equation. Performed By: #### 2 4323-8, 04835-2, 83531-0, ####[facility] LABCLIA [id number] [address] [place] [address] [place] Cholesterol in LDL/Cholesterol in HDL [Mass ratio] 2.35 {ratio} Normal <2.[address] [facility] Comment on above: Order Comment: Speci men Type: BLOOD SPECIMENOrdering Facility: [facility] Address: [address] [place] [address] Result Comment: Alla patiño: 1. National Cholesterol Education Program ATP III Guideline At-A-Glance Quick Desk Reference: National Heart, Lung, and Blood [place]. National Institutes of Health. 2001: NIH Publication No. 01-3305. 2. An International Atherosclerosis Society position paper: global recommendations for the management of dyslipidemia: executive summary, Atherosclerosis. 2014: 232(2):410-413. Performed By: #### 2 4323-8, 02798-8, 06071-5, 63135-6 ####[facility] LABCLIA [id number] [place] [address] [place] Cholesterol in VLDL [Mass/Vol] 17 mg/dL Normal <[address] [facility] Comment on above: Order Comment: Speci men Type: BLOOD SPECIMENOrdering Facility: [facility] Address: [address] [place] [address] Performed By: #### 2 4323-8, 32467-4, 58372-1, ####[facility] LABIA [id number] [place] [address] [place] Cholesterol non HDL [Mass/Vol] 146 mg/dL High <[address] [facility] Comment on above: Order Comment: Speci men Type: BLOOD SPECIMENOrdering Facility: [facility] Address: [address] [place] [address] Result Comment: <130 mg/dL, Optimal 130-159 mg/dL, Near optimal/above optimal 160-189 mg/dL, Borderline high 190-219 mg/dL, High >219 mg/dL, Very high Secondary prevention optimal non HDL Cholesterol levels are recommended to be <100 mg/dL Performed By: #### 2 4323-8, 49083-7, 80408-2, 04652-1 ####[facility] LABCLIA [id number] [address] [place] [address] [place] Cholesterol.total/Chol esterol in HDL [Mass ratio] 3.65 {ratio} Normal <5.[address] [facility] Comment on above: Order Comment: Speci men Type: BLOOD SPECIMENOrdering Facility: [facility] Address: [address] [place] [address] Performed By: #### 2 4323-8, 44184-9, 63446-2, ####[facility] LABIA [id number] [place] [address] [place] FASTING TIME 12 hrs Normal [facility] Comment on above: Order Comment: Speci men Type: BLOOD SPECIMENOrdering Facility: [facility] Address: [address] [place] [address] Performed By: #### 2 4323-8, 69444-8, 91878-4, ####[facility] LABIA [id number] [place] [address] [place] Triglyceride [Mass/Vol] 96 mg/dL Normal <[address] [facility] Comment on above: Order Comment: Speci men Type: BLOOD SPECIMENOrdering Facility: [facility] Address: [address] [place] [address] Result Comment: <150 mg/dL, Normal 150-199 mg/dL, Borderline high 200-499 mg/dL, High >499 mg/dL, Very high Performed By: #### 2 4323-8, 39221-2, 28589-3, ####[facility] LABIA [id number] [address] [address] [place] Magnesium SerPl-mCncon 03-25 Magnesium [Mass/Vol] 2.1 mg/dL Normal 1.7-2.3 [place] Comment on above: Order Comment: Speci men Type: BLOOD SPECIMENOrdering Facility: [facility] Address: [address] [place] [address] Performed By: #### 2 4323-8, 54444-3, 47097-7, ####[facility] LABCLIA [id number] [place] [address] CNOVon 03-18-2025 CNOV Office Visit (NENMMN ) -- ALEJO GAGE ([id number]) 1940 M Date Time Provider Department 03/18/25 2:00 PM MANUELA LACY NEUTMN During your visit today, we recorded the following information about you: Pulse Blood pressure Weight Height 68/minute 126/65 69.8 kg 1.727 m Manuela Lacy MD 03/19/2025 11:35 AM Signed Referring Physician: Jud Maguire [address] [facility] [address] Consultation requested by Jud Maguire PA-C for an opinion regarding myasthenia gravis. My final recommendations will be communicated back to the requesting physician by way of shared Medical record or letter to requesting physician via fax or [place] mail. Recording using SureVisit software for draft documentation of the visit was discussed with the patient/authorized provider service representative; all questions welcomed and answered. Patient/authorized provider service representative agreed to proceed CC: myasthenia gravis HPI: Alejo Gage is an 84 year-old right-handed man who comes to clinic today in the company of his son regarding myasthenia gravis. Hasmukh Gage is an 84-year-old male with a history of myasthenia gravis, presenting for evaluation of weakness and double vision. Hasmukh, who is right-hand dominant, reports initial symptoms of dysphagia beginning in mid-November, followed by diplopia within a few days. He describes the diplopia as seeing double when looking to the left, which interferes with his ability to play the steel guitar. He also notes ptosis, which was first observed by Lala Godinez PA-C, at the [facility] in early January. He reports generalized muscle weakness in his arms, hands, fingers, legs, and neck, accompanied by significant fatigue. He does not endorse any changes in weakness over the past 3-4 months and does not report difficulty with ambulation or getting out of chairs. 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 He notes that his dyspnea improves with rest but is still present to a lesser degree. He also reports difficulty with overhead activities, such as washing his hair, which require extra effort. He has lost 20 pounds over the past 8-10 weeks, dropping from 174 to 154 pounds, due to difficulty swallowing and eating. He has been consuming mostly soft foods and liquids, avoiding bread, and requires water to assist with swallowing. He does not report difficulty chewing or swallowing liquids unless he drinks quickly. He does not endorse any speech difficulties. He has a history of peripheral neuropathy in his feet, described as a mild electrical shock sensation along the edge of his foot, which has been present for quite a while and has not changed recently. He does not report any new numbness or tingling. He also has a history of hearing problems, which he attributes to playing drums in the past. He does not endorse headaches and reports muscle fatigue but no pain. He has been taking pyridostigmine (Mestinon) 60 mg half tablet three times a day, which has improved his swallowing and reduced his diplopia. He notes that if he misses a dose, his swallowing becomes difficult again. He reports some loose stools with the medication but no other side effects. He is concerned about the impact of pyridostigmine on his stage 3 kidney disease and has a creatinine test scheduled with his family doctor, Dr. Samson Ragsdale, at the [facility]. He also reports chronic constipation and excessive gas, with belching occurring within 15 minutes of eating and passing gas within a couple of hours. He has not had a decent bowel movement in two years and alternates between severe constipation and diarrhea. He has undergone colonoscopies and a capsule endoscopy, which showed no blockages. He has a history of gout and has taken prednisone for gout attacks, with the last dose taken 3-4 months ago. He is concerned about the potential need for long-term prednisone use for myasthenia gravis and its impact on his blood sugar. MG - Activities of Daily Living (MG-ADL) 1. Talkin=Normal 2. Chewin=Normal 3. Swallowin=Frequent choking necessitating changes in diet 4. Breathin=Shortness of breath at rest 5. Impairment of ability to brush teeth or comb hair: 1=Extra effort, but no rest periods needed 6. Impairment of ability to arise from a chair: 0=None 7. Double vision: 2=Daily, but not constant 8. Eyelid droop: 0=None MG-ADL Total Score: 8 Prior Studies: Labs: normal: MMA, SPEP, B12, abnormal: HbA1c 6.3, creatinine 1.86, WSR 35, CRP 3.2, AchR B/B/M elevated MRI brain 01/31/2025: No evidence of acute intracranial abnormality. Scattered patchy and confluent T2 FLAIR hyperintense lesions are present in the bilateral supratentorial brain compatible w (more content not included)... Normal [facility] Modified Barium Swallow Stud [facility] 03-06-[address] Study [facility] Speech Pathology [address] [place] [address] Modified Barium Swallow Study MR#: [id number] Acct: [id number] Name: ALEJO GAGE Rep #: [id number] : 1940 84 From: Bebe Morales M.A. [facility]-COLLECTION SYSTEMS CONSULTANT Modified Barium Swallow Patient Information Study Date: 03/05/25 Study Time: 13:00 Direct Billable Minutes: 108 Total Minutes procedure reportin Diagnosis: Dysphagia R13.10 Referring Physician: Nolan Hoyt V Reason for Referral: Assess swallow function, assess risk for aspiration, and determine recommendations for any necessary dysphagia interventions. Medical History: In addition to PMH from EMR (below), the patient informed this COLLECTION SYSTEMS CONSULTANT w/ very recent diagnosis of myasthenia gravis, following w/ [facility]y. He was referred for this MBSS by his interior paneler due to pt reporting hx of swallowing difficulty for the past 2-3 months. He reports having trouble at every meal w/ solid foods, but especially w/ foods such as bread, steak, and chinese fries. He reports coughing and sensing that the foods don't want to help. Liquids somewhat help. He has lost >20lbs in the past 2 months. He denies choking or odynophagia. Pt reported hx of hiatal hernia and s/s of GERD, including HB, which he manages w/ frequent use of antacids. Hx of PNA 3X; however, these illnesses were >15 years ago. Medical History (Updated 01/14/25 @ 02:[address] Adam Mon MD) GI bleed due to NSAIDs Carotid artery stenosis Abdominal aortic aneurysm without rupture Ischemic cardiomyopathy Prostate cancer PVD (peripheral vascular disease) Atherosclerosis of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[place] heart without angina pectoris Complete heart block ST elevation [place] (STEMI) Chronic kidney disease, stage 3 Hyperlipidemia Hypertension Current Diet Ordered: Soft solids, no bread / Thin liquids Mental Status: WNL Respiratory Status: Oxygenating on Room Air Penetration-Aspiration Scale Penetration-Aspiration Scale: OBJECTIVE ASSESSMENT OF SWALLOW FUNCTION (QUANTITATIVE ??? PER TRIAL): PENETRATION / ASPIRATION SCALE (VACA): 1 = does not enter airway 2 = enters airway/above vocal folds/ejected 3 = enters airway/above vocal folds/not ejected 4 = enters airway/contacts vocal folds/ejected 5 = enters airway/contacts vocal folds/not ejected 6 = enters airway/below vocal folds/ejected 7 = enters airway/below vocal folds/not ejected despite effort 8 = enters airway/below vocal folds/no effort VIDEOFLOROSCOPIC SCALE SCORE (VACA): Grade I = aspiration of material that has penetrated into the laryngeal vestibule, intact cough reflex Grade II = aspiration < 10 % of the bolus, intact cough reflex Grade III = aspiration of < 10 % of the bolus, reduced cough reflex or aspiration of > 10 % of the bolus, intact cough reflex Grade IV = aspiration of > 10 % of the bolus, reduced cough reflex Penetration-Aspiration Scale Score Thin Liquid via teaspoon: Result: 1= does not enter airway Thin Liquid via teaspoon Trial 2: Result: 1= does not enter airway Thin Liquid via large single sip: cup: Result: 1= does not enter airway Thin Liquid via sequential sips: cup: Result: 1= does not enter airway Comment: Esophageal screen - Mild retention in the lower and middle esophagus w/ retrograde flow. Pudding via teaspoon: Result: 1= does not enter airway Comment: Esophageal screen - Retention of pudding in the middle and lower esophagus. Thin Liquid via single sip: straw: Result: 1= does not enter airway Comment: Esophageal screen - Liquid wash fully cleared pudding retention from previous trial. 1/2 Cookie: Result: 1= does not enter airway Comment: Esophageal screen - Retention of cookie throughout the esophagus. Thin Liquid via single sip: straw Trial 2: Result: 1= does not enter airway Comment: Esophageal screen - Liquid wash did somewhat cleared cookie retention; however, retention of liquids occurred in the middle and lower esophagus w/ retrograde flow. Oral Phase Labial Seal: Interlabial escape, no progression to anterior lip Tongue Control During Bolus Hold: Posterior escape of less than half of bolus Bolus Preparation/Mastication: Disorganized chewing/mashing with solid pieces of bolus unchewed (Small pieces appearing un-chewed) Bolus Transport/Lingual Motion: Repetitive/disorganized tongue motion Oral Residue: Residue collection on oral structures Pharyngeal Phase Initiation of Pharyngeal Swallow: Bolus head in pyriforms Soft Palate Elevation: Trace column of contrast/air between soft palate and pharyngeal wall Laryngeal Elevation: Comp. Superior move thyroid cart w/comp. apprx arytenoid cart-epig pet Anterior Hyoid Excursion: Partial anterior movement Epiglottic Movement: Partial inversion Laryngeal Vestibule Closure at Height of Swallow: Complete; no air/contrast in laryngeal vestibule Pharyngeal Stripping Wave: Present - diminished (more content not included)... Normal [facility] 02-28-2025 [facility] ALEJO GAGE ([id number]) 1940 M Date Time Provider Department 02/28/25 SAMSON RAGSDALE [facility] During your visit today, we recorded the following information about you: Jocelyne Dang 02/28/2025 11:45 AM Signed Pt came in to ask about if the Mestinon medication would be too hard on his kidney's ? I let him know that it was [facility] that prescribed this prescription. Please advise Anais Garcia LPN 02/28/2025 12:09 PM Signed Did request electronic PA and route to neuro pool. Gertrudis Mitchell 03/01/2025 1:30 PM Signed Patient stopped at front end mechanic today wanting to talk with Dr. Ragsdale's nurse re: this. Patient isn't wanting to start this medication without Dr. Ragsdale's opinion. Per patient, the pharmacist stated that this medicine is hard on the kidneys and he has Stage 3 CKD. Please advise patient on if this medication is the best for him for his myasthenia gravis or if there is something else that Dr. Ragsdale would recommend that might be less harsh on his kidneys. Samson Ragsdale DO 03/04/2025 7:15 AM Signed Please let him know that this medication is safe for his renal function/kidneys to be taking per specialist recommendations DO Bert Olivas Amanda, RN 03/04/2025 9:12 AM Signed Pt called and is notified of providers message and instructions. Pt voices understanding. JOAQUIN Saravia Lori, LPN 03/04/2025 2:57 PM Signed Despite seeing that patient was already notified of this (? Re: kidneys being affected by medication), patient came to Neuro office. Patient asking this same question as well as will this medication help improve patient's swallowing ability? Patient is completing Cookie swallow tomorrow and will stop by office again tomorrow. Patient did ask if it would help with his double vision also but reports swallowing is more important to him especially d/t weight loss. EMIGDIO Webb Lori, LPN 03/06/2025 7:51 AM Signed Patient was in to office and updated and voiced understanding. Yu Ruvalcaba LPN Allergies As of Date: 02/28/2025 Noted Allergy Reaction ATORVASTATIN 10/18/2017 16 - Unknown CRESTOR (ROSUVASTATIN CALCIUM) 04/24/2013 14 - Other: See Comments Comments: Muscle pain GLUCOSAMINE 06/27/2017 16 - Unknown Comments: Nerve pain MOTRIN (IBUPROFEN) 01/19/2006 2 - Rash PRAVASTATIN 02/19/2013 14 - Other: See Comments Comments: muscle aches XCDAANY-NGM-SNE REDUCTASE INHIBIT*10/09/2014 14 - Other: See Comments Comments: myalgia Date Reviewed: 02/20/2025 Reviewed by: Jud Maguire PA-C - Fully Assessed Reason for Visit: Medication Problem [65] Prescriptions as of 03/06/2025 - pyridostigmine (MESTINON) 60 mg tablet Take a half tablet three times a day with food. - cyanocobalamin (B-12 DOTS) 500 mcg tablet Take 1 tablet by mouth once daily. - fluticasone-salmeterol (ADVAIR DISKUS) 100-50 mcg/dose inhaler Inhale 1 puff as instructed two times a day. - triamcinolone acetonide (NASACORT ALLERGY) 55 mcg nasal inhaler Use 2 sprays in each nostril once daily. - zinc sulfate (ZINC-15 ORAL) Take 1 tablet by mouth once daily. - blood sugar diagnostic (TRUE METRIX GLUCOSE [...] Units subcutaneously daily at bedtime. - Insulin Huntley, Disposable, (BD ULTRA-FINE BENNY PEN NEEDLE) 32 gauge x 5/32 Use once daily with Lantus as directed - diclofenac sodium (VOLTAREN) 1 % topical gel Apply 2 g to affected area four times daily. - hydrocortisone 2.5 % cream Apply 1 application to affected area twice daily. Location: face - Blood-Glucose Meter (FREESTYLE LITE METER) monitoring kit 1 Each as directed. - Lancets lancets Use as instructed - potassium chloride (KLOR-CON 10) 10 mEq tablet Take 1 tablet by mouth once daily. - CHOLECALCIFEROL, VITAMIN D3, (VITAMIN D3 [...] May increase risk of bleeding when taken (more content not included)... Normal [facility] Cardiology Visit Reporton Cardiology Visit Report [facility] [address] [place] [address] OFFICE VISIT Date of Service: 02/21/25 MR#: [id number] Acct: [id number] Name: ALEJO GAGE Rep #: [id number] : 1940 Provider: MAXINE gautam Age/Sex: 84/M Location: [facility] Status: Signed HPI HPI History of Present Illness Details: This is an 84 year old gentleman who presents to the office today for a cardiovascular follow-up visit. He has a past medical history significant for coronary artery disease status post CABG with CASTILLO to the LAD, history of myocardial infarctions status post DAVID to the left circumflex and to the right coronary artery, hypertension and dyslipidemia. Patient has history of chronic kidney disease. His creatinine on 01/03/2025 was 2.35. From a cardiac standpoint, the patient is doing well. He denies any palpitations, chest pain, pressure or heaviness. He does have SOB with over exertion. This is nothing new or worsening. He denies Orthopnea, and PND. He does not have bleeding issues; no blood in urine, stool, or nosebleeds. He does acknowledge a decrease in energy level. He denies myalgias, or claudication. He does not have edema, or sudden weight gain. He denies lightheadedness, dizziness, syncopal or near syncopal episodes, and headaches. He is being worked up for myasthenia gravis. Intake Vital Signs 01/15/25 13:37 07/24/25 11:15 Height 5 ft 8 in 5 ft 8 in Weight: 154 lb BMI 23.4 BP 107/68 Blood Pressure Location Lt brachial Position Sitting Respiration 16 Pulse 65 Pulse Source Monitor Pulse Oximetry (%) 92 Oxygen Delivery Method room air Intake Visit Reasons: 4 WK FU Poll Watcher Required: No Accompanied by: Self Is patient in pain?: Yes Pain scale (1-10): 3 Allergies ibuprofen Allergy (Unknown, Unverified 02/21/25 11:29) NEEDS FOLLOW-UP pravastatin Allergy (Unknown, Verified 02/21/25 11:29) NEEDS FOLLOW-UP atorvastatin (From Lipitor) Allergy (Verified 02/21/25 11:29) Unknown glucosamine Allergy (Verified 02/21/25 11:29) Unknown rosuvastatin Adverse Reaction (Unknown, Verified 02/21/25 11:29) NEEDS FOLLOW-UP Agpstzd-FCL-PnB Reductase Inhibitor Adverse Reaction (Unknown, Verified 02/21/25 11:29) NEEDS FOLLOW-UP Medications ???Medication ???Instructions ???Recorded ???Confirmed ???Type cetirizine 10 mg tablet (Zyrtec) 5 mg PO DAILY 05/08/18 02/21/25 Hi story coenzyme Q10 100 mg capsule 200 mg PO DAILY 05/08/18 02/21/25 History (CoQ-10) insulin glargine 100 unit/mL 10 unit subcut QHS 05/08/18 History subcutaneous solution (Lantus U-100 Insulin) allopurinol 100 mg tablet 100 mg PO DAILY 06/21/19 02/21/25 History cholecalciferol (vitamin D3) 125 5,000 unit PO DAILY 06/21/1902/21 History mcg (5,000 unit) capsule losartan 50 mg tablet 25 mg PO DAILY 06/21/19 02/21/25 H istory clopidogrel 75 mg tablet 75 mg PO DAILY #90 tabs 08/19/20 0 02/21/25 Rx cyanocobalamin (vitamin B-12) 5,000 mcg PO DAILY 01/13/25 History 5,000 mcg capsule amlodipine 10 mg tablet 10 mg PO QPM 01/14/25 02/21/25 His tory calcium 600 mg (as carbonate)-vit 1 tab PO QDAY 01/14/25 02/21/25 H istory D3 20 mcg (800 unit) chewable tablet (Caltrate plus D) diclofenac sodium 1 % topical gel 2 g topical 4X/DAY PRN 01/14/25 0 02/21/25 History (Arthritis Pain (diclofenac)) hydrocodone-acetaminophen 5-325mg 1 tab PO PRN pain 01/14/25 History 5mg-325mg hydrocortisone 2.5 % topical cream 1 applic topical BID PRN 5 02/21/25 History potassium chloride 10 mEq 10 meq PO QDAY 01/14/25 02/21/25 H istory capsule,extended release carvedilol 25 mg tablet 25 mg PO QDAY 02/21/25 02/21/25 Hi story ferrous sulfate, dried 159 mg (45 159 mg PO DAILY PRN 02/21/2501/30 History mg iron) tablet,extended release (iron ER) flax seed oil PO DAILY PRN 02/21/25 02/21/25 His tory fluticasone 250 mcg-salmeterol 50 1 inh inhalation BID PRN 02/21/25 02/21/25 History mcg/dose blistr powdr for inhalation (Advair Diskus) furosemide 80 mg tablet 80 mg PO QDAY PRN 02/21/25 5 History isosorbide mononitrate 60 mg 30 mg PO QDAY 02/21/25 02/21/25 Hi story tablet,extended release 24 hr magnesium oxide 400 mg PO QDAY PRN 02/21/25 History zinc 50 mg tablet 50 mg PO DAILY PRN 02/21/25 History Ejection fraction %: 60 Have you fallen in the past year?: [facility] History 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 Normal [facility] ACETYLCHOLINE REC BINDING AB on 02-20-2025 ACETYLCHOLINE BINDING, QUAL Positive Abnormal Negative [facility] Comment on above: Order Comment: Speci men Type: BLOOD SPECIMENOrdering Facility: [facility] Address: [address] [place] [address] [place] [address] Result Comment: Anti -acetylcholine receptor binding antibody test is used as an aid in diagnosis of myasthenia gravis. A negative result cannot exclude myasthenia gravis. Clinical correlation is required. Performed By: #### A CHRAB ####[facility] LABCLIA [id number] [place] [address] [place] Acetylcholine receptor binding Ab (S) [Moles/Vol] 11.84 nmol/L High <0.[address] [facility] Comment on above: Order Comment: Speci men Type: BLOOD SPECIMENOrdering Facility: [facility] Address: [address] [place] [address] Performed By: #### A CHRAB ####[facility] [id number] [place] [address] [place] ACETYLCHOLINE REC BLOCKING A Bon 02-20-2025 ACETYLCHOLINE BLOCKING, QUAL Positive Abnormal Negative [facility] Comment on above: Order Comment: Speci men Type: BLOOD SPECIMENOrdering Facility: [facility] Address: [address] [place] [address] Result Comment: Anti -acetylcholine receptor blocking antibody test is used as an aid in diagnosis of myasthenia gravis. A negative result cannot exclude myasthenia gravis. Clinical correlation is required. Performed By: #### A CEBAB ####[facility] LABIA [id number] [place] [address] [place] Acetylcholine receptor blocking Ab/Acetylcholine Ab.total (S) [Molar fraction] 37 % Inhibition High <[address] [facility] Comment on above: Order Comment: Speci men Type: BLOOD SPECIMENOrdering Facility: [facility] Address: [address] [place] [address] Performed By: #### A CEBAB ####[facility] LABIA [id number] [place] [address] [place] ACETYLCHOLINE RECEPTOR MODUL ATING ANTIBODYon 02-20-2025 ACETYLCHOLINE RECEPT/MODULATING 83 % High <=[address] [facility] Comment on above: Order Comment: Speci men Type: BLOOD SPECIMENOrdering Facility: [facility] Address: [address] [place] [address] Result Comment: Repe ated and Verified INTERPRETIVE INFORMATION: Acetylcholine Modulating Ab Negative .......... 0-45 percent modulating Positive .......... 46 percent or greater modulating Approximately 85-90 percent of patients with myasthenia gravis (MG) express antibodies to the acetylcholine receptor (AChR), which can be divided into binding, blocking, and modulating antibodies. Binding antibody can activate complement and lead to loss of AChR. Blocking antibody may impair binding of acetylcholine to the receptor, leading to poor muscle contraction. Modulating antibody causes receptor endocytosis resulting in loss of AChR expression, which correlates most closely with clinical severity of disease. Approximately 10-15 percent of individuals with confirmed myasthenia gravis have no measurable binding, blocking, or modulating antibodies. This test was developed and its performance characteristics determined by [email or web address]. It has not been cleared or approved by the [place] Food and Drug Administration. This test was performed in a CLIA certified laboratory and is intended for clinical purposes. Performed By: [email or web address] [address] [place] [address] [employer] Certified Network Professional: Tonny Sherman MD, PhD CLIA Number: [id number] Performed By: #### A CEMOD ####[facility]THIA [id number] [place] [id number] CBC W Auto Differential pane l (Bld)on 02-20-2025 Basophils (Bld) [#/Vol] 10*3/uL Normal <0.[address] [facility] Comment on above: Order Comment: Speci bharath Type: BLOOD SPECIMENOrdering Facility: [facility] Address: [address] [place] [address] Performed By: #### 5 7021-8, 4537-7 ####[facility] LABCLIA [id number] [place] [address] [place] Basophils/100 WBC (Bld) 0.2 % Normal [facility] Comment on above: Order Comment: Speci bharath Type: BLOOD SPECIMENOrdering Facility: [facility] Address: [address] [place] [address] Performed By: #### 5 7021-8, 7-7 ####[facility] LABCLIA [id number] [address], [place] [address] [place] Differential cell count method Nom (Bld) Auto Normal [facility] Comment on above: Order Comment: Speci men Type: BLOOD SPECIMENOrdering Facility: [facility] Address: [address] [place] [address] Performed By: #### 5 7021-8, 7 ####[facility] LABCLIA [id number] [address], [place] [address] [place] Eosinophils (Bld) [#/Vol] 0.16 10*3/uL Normal <0.[address] [facility] Comment on above: Order Comment: Speci men Type: BLOOD SPECIMENOrdering Facility: [facility] Address: [address] [place] [address] Performed By: #### 5 7021-8, 7 ####[facility] LABCLIA [id number] [place] [address] [place] Eosinophils/100 WBC (Bld) 1.4 % Normal [facility] Comment on above: Order Comment: Speci men Type: BLOOD SPECIMENOrdering Facility: [facility] Address: [address] [place] [address] Performed By: #### 5 7021-8, 4536-7 ####[facility] LABCLIA [id number] [facility] [address], [place] [address] [place] Erythrocyte distribution width (RBC) [Ratio] 15.2 % High 11.5-15.[address] [facility] Comment on above: Order Comment: Speci men Type: BLOOD SPECIMENOrdering Facility: [facility] Address: [address] [place] [address] Performed By: #### 5 7021-8, 7-7 ####[facility] LABCLIA [id number] [place] [address] [place] Hematocrit (Bld) [Volume fraction] 41.3 % Normal 39.0-51.[address] [facility] Comment on above: Order Comment: Speci men Type: BLOOD SPECIMENOrdering Facility: [facility] Address: [address] [place] [address] Performed By: #### 5 7021-8, 4537-7 ####[facility] LABCLIA [id number] [place] [address] [place] Hemoglobin (Bld) [Mass/Vol] 12.8 g/dL Low 13.0-17.[address] [facility] Comment on above: Order Comment: Speci men Type: BLOOD SPECIMENOrdering Facility: [facility] Address: [address] [place] [address] Performed By: #### 5 7021-8, 4537-7 ####[facility] LABCLIA [id number] [place] [address] [place] Immature granulocytes (Bld) [#/Vol] 10*3/uL Normal <0.[address] [facility] Comment on above: Order Comment: Speci men Type: BLOOD SPECIMENOrdering Facility: [facility] Address: [address] [place] [address] Performed By: #### 5 7021-8, 4537-7 ####[facility] LABIA [id number] [place] [address] [place] Immature granulocytes/100 WBC (Bld) 0.2 % Normal [facility] Comment on above: Order Comment: Speci men Type: BLOOD SPECIMENOrdering Facility: [facility] Address: [address] [place] [address] Performed By: #### 5 7021-8, 4537-7 ####[facility] LABCLIA [id number] [place] [address] [place] Lymphocytes (Bld) [#/Vol] 2.15 10*3/uL Normal 1.00-4.[address] [facility] Comment on above: Order Comment: Speci men Type: BLOOD SPECIMENOrdering Facility: [facility] Address: [address] [place] [address] Performed By: #### 5 7021-8, 4536-7 ####[facility] LABCLIA [id number] [place] [address] [place] Lymphocytes/100 WBC (Bld) 18.3 % Normal [facility] Comment on above: Order Comment: Speci men Type: BLOOD SPECIMENOrdering Facility: [facility] Address: [address] [place] [address] Performed By: #### 5 7021-8, 4536-7 ####[facility] LABIA [id number] [place] [address] [place] MCH (RBC) [Entitic mass] 26.8 pg Normal 26.0-34.[address] [facility] Comment on above: Order Comment: Speci men Type: BLOOD SPECIMENOrdering Facility: [facility] Address: [address] [place] [address] Performed By: #### 5 7021-8, 4536-7 ####[facility] LABIA [id number] [place] [address] [place] MCHC (RBC) [Mass/Vol] 31.0 g/dL Normal 30.5-36.0 [facility] Comment on above: Order Comment: Speci men Type: BLOOD SPECIMENOrdering Facility: [facility] Address: [address] [place] [address] Performed By: #### 5 7021-8, 4536-7 ####[facility] LABIA [id number] [place] [address] [place] MCV (RBC) [Entitic vol] 86.6 fL Normal 80.0-100.[address] [facility] Comment on above: Order Comment: Speci men Type: BLOOD SPECIMENOrdering Facility: [facility] Address: [address] [place] [address] Performed By: #### 5 7021-8, 4536-7 ####[facility] LABCLIA [id number] [place] [address] [place] Monocytes (Bld) [#/Vol] 0.95 10*3/uL High <0.[address] [facility] Comment on above: Order Comment: Speci men Type: BLOOD SPECIMENOrdering Facility: [facility] Address: [address] [place] [address] Performed By: #### 5 7021-8, 7 ####[facility] LABIA [id number] [place] [address] [place] Monocytes/100 WBC (Bld) 8.1 % Normal [facility] Comment on above: Order Comment: Speci men Type: BLOOD SPECIMENOrdering Facility: [facility] Address: [address] [place] [address] Performed By: #### 5 7021-8, 7 ####[facility] LABIA [id number] [place] [address] [place] Neutrophils (Bld) [#/Vol] 8.44 10*3/uL High 1.45-7.[address] [facility] Comment on above: Order Comment: Speci men Type: BLOOD SPECIMENOrdering Facility: [facility] Address: [address] [place] [address] Performed By: #### 5 7021-8, 4537-01 ####[facility] LABIA [id number] [place] [address] [place] Neutrophils/100 WBC (Bld) 71.8 % Normal [facility] Comment on above: Order Comment: Speci men Type: BLOOD SPECIMENOrdering Facility: [facility] Address: [address] [place] [address] Performed By: #### 5 7021-8, 4537-01 ####[facility] LABCLIA [id number] [address] [place] [address] [place] Nucleated RBC (Bld) [#/Vol] 10*3/uL Normal <0.[address] [facility] Comment on above: Order Comment: Speci men Type: BLOOD SPECIMENOrdering Facility: [facility] Address: [address] [place] [address] Performed By: #### 5 7021-8, 4537-7 ####[facility] LABCLIA [id number] [address], [id number] [place] Nucleated RBC/100 WBC (Bld) [Ratio] 0.0 /100 WBC Normal [facility] Comment on above: Order Comment: Speci men Type: BLOOD SPECIMENOrdering Facility: [facility] Address: [address] [place] [address] Performed By: #### 5 7021-8, 4537-7 ####[facility] LABIA [id number] [address], [place] [address] [place] Platelet mean volume (Bld) [Entitic vol] 11.1 fL Normal 9.0-12.[address] [facility] Comment on above: Order Comment: Speci men Type: BLOOD SPECIMENOrdering Facility: [facility] Address: [address] [place] [address] Performed By: #### 5 7021-8, 7-7 ####[facility] LABIA [id number] [place] [address] [place] Platelets (Bld) [#/Vol] 271 10*3/uL Normal 150-[address] [facility] Comment on above: Order Comment: Speci men Type: BLOOD SPECIMENOrdering Facility: [facility] Address: [address] [place] [address] Performed By: #### 5 7021-8, 7-7 ####[facility] LABCLIA [id number] [address] [place] [address] [place] RBC (Bld) [#/Vol] 4.77 10*6/uL Normal 4.20-6.00 [facility] Comment on above: Order Comment: Speci men Type: BLOOD SPECIMENOrdering Facility: [facility] Address: [address] [place] [address] Performed By: #### 5 7021-8, 4537-7 ####[facility] LABCLIA [id number] [place] [address] [place] WBC (Bld) [#/Vol] 11.74 10*3/uL High 3.70-11.00 [place] Comment on above: Order Comment: Speci men Type: BLOOD SPECIMENOrdering Facility: [facility] Address: [address] [place] [address] Performed By: #### 5 7021-8, 4537-7 ####[facility] LABCLIA [id number] [address] [place] CNOVon 02-20-2025 CNOV Office Visit (NEMOWS ) -- ALEJO GAGE Jordan ([id number]) 1940 M Date Time Provider Department 02/20/25 3:00 PM JUD MAGUIRE During your visit today, we recorded the following information about you: Pulse Respiration Blood pressure Weight 70/minute 16/minute 121/67 69.8 kg Jud Maguire PA-C 02/20/2025 4:36 PM Signed [facility] Name: Alejo Gomezcuate Age: [age] year old Gender: male Primary Care Provider: Samson Ragsdale DO Consult requested for MRI follow up by Lala Godinez. Recommendations will be communicated via shared medical record or US mail. Chief Complaint:New Patient (Cerebral microvascular disease), Eye Problem (Double vision from left periferal), Fatigue, Ptosis OU, Throat Problem, muscle weakness all extremities, and Weight Problem (Loss of approx 20 lbs since swallowing issue started) 02/20/2025 - General Neurology, Jud Maguire PA-C ASSESSMENT ASSESSMENT/PLAN: 1. Weakness - ICD9: 780.79, ICD10: R53.1 (primary diagnosis) 2. Cerebral microvascular disease - ICD9: 437.8, ICD10: I67.89 3. Myasthenia gravis (HCC) - ICD9: 358.00, ICD10: G70.0 4. Abnormal weight loss - ICD9: 783.21, ICD10: R63.4 5. Double vision - ICD9: 368.2, ICD10: H53.2 6. Dysphagia, unspecified type - ICD9: 787.20, ICD10: R13.10 Patient with 6 weeks of generalized weakness, difficulty swallowing, double vision and weight loss due to lack of appetite and difficulty swallowing. Follow with primary care and there was concerns for possible central process MRI of the brain negative. Was noted to have left eyelid droop while at his primary care appointment earlier this month. No falls, no signs or symptoms of cord compression. Patient does have left eyelid droop with prolonged upward gaze, unable to fully move the right eye medially. Concern at this time for myasthenia gravis. Will order laboratory studies for this and sent to neuromuscular pending results. Discussed EMG testing at this time and patient deferring. Does have signs of vibration loss in the lower extremities as well and due to overall weakness discussed obtaining basic blood work and patient is amenable. Discussed that should labs be negative we will order EMG and patient agrees. Discussed red flag signs symptoms that warrant going to the emergency department, patient agrees and understands. Jud Maguire PA-C Encounter Diagnosis ICD-10-CM 1. Weakness R53.1 VITAMIN B12 PROT ELECT SERUM WITH ELIZABETH AND INTERP METHYLMALONIC ACID C-REACTIVE PROTEIN SEDIMENTATION RATE, WESTERGREN COMPREHENSIVE METABOLIC PANEL COMPLETE BLOOD COUNT AND DIFFERENTIAL 2. Cerebral microvascular disease I67.89 3. Myasthenia gravis (HCC) G70.00 ACETYLCHOLINE REC BINDING AB ACETYLCHOLINE RECEPTOR MODULATING ANTIBODY ACETYLCHOLINE REC BLOCKING AB 4. Abnormal weight loss R63.4 5. Double vision H53.2 6. Dysphagia, unspecified type R13.10 Return if symptoms worsen or fail to improve. Chart, labs,and relevant images reviewed. HPI: Saw PCP on 01/30/25 for vision changes and swallowing difficulty. MRI oredered to look for stroke. Negative, showing chronic changes. Hx of R carotid endarectomy. Patient presents for evaluation of multiple concerns. Notes that over the last 6 weeks he has had progressive weakness, weight loss and difficulty swallowing. Notes that he first started noticing the difficulty swallowing when eating a cupcake 6 weeks ago, states that it seemed to get stuck in the middle of his esophagus any eventually was able to cough it out and drink some water. Since that time he has had intermittent issues with swallowing, always has have some sort of liquid with him to help him swallow. Is scheduled for a swallow study in the near future. Does not feel he is aspirated anything. Notes he has lost significant amount of weight in the last 6 weeks, estimates about 20 pounds. Notes his appetite is also significantly decreased as well. Over the last 6 weeks he is also been experiencing generalized weakness to his arms and legs. Was found to have a left eyelid drooping at his primary care appointment earlier this month and feels that this is new as well. Describes double vision, when he looks to the left notes that he sees 2 of everything but when he looks to the right is normal. States this is only occurring towards the end of the day and his vision is normal in the morning. States overall he feels much better when he wakes up in the morning but progressively through the day he feels worse. Denies any speech changes, no falls. Overall feels as if he is in a fog. Has never had anything like this happen before. No bowel or bladder incontinence, saddle anesthesia. Has been experiencing constipation issues over the last 6 months. No other concerns today. Weakness: yes Falls: no Speech: no Swallowing: (more content not included)... Normal [facility] ALEJO [facility]AGE ([id number]) 1940 M Date Time Provider Department 02/20/25 SAMSON RAGSDALE During your visit today, we recorded the following information about you: Jocelyne Dang 02/20/2025 2:19 PM Signed Patient came into today requesting a letter for a new Handicap sticker. Please advise. Desirae Irving APRN.JAIRON 02/21/2025 8:35 AM Signed Letter made. Just needs printed from [employer]. Pending in Communications or Letters tap. 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 Allergies As of Date: 02/20/2025 Noted Allergy Reaction ATORVASTATIN 10/18/2017 16 - Unknown CRESTOR (ROSUVASTATIN CALCIUM) 04/24/2013 14 - Other: See Comments Comments: Muscle pain GLUCOSAMINE 06/27/2017 16 - Unknown Comments: Nerve pain MOTRIN (IBUPROFEN) 01/19/2006 2 - Rash PRAVASTATIN 02/19/2013 14 - Other: See Comments Comments: muscle aches [id number] REDUCTASE INHIBIT*10/09/2014 14 - Other: See Comments Comments: myalgia Date Reviewed: 02/20/2025 Reviewed by: Jud Maguire PA-C - Fully Assessed Reason for Visit: Orders [681] Prescriptions as of 02/25/2025 - cyanocobalamin (B-12 DOTS) 500 mcg tablet Take 1 tablet by mouth once daily. - fluticasone-salmeterol (ADVAIR DISKUS) 100-50 mcg/dose inhaler Inhale 1 puff as instructed two times a day. - triamcinolone acetonide (NASACORT ALLERGY) 55 mcg nasal inhaler Use 2 sprays in each nostril once daily. - zinc sulfate (ZINC-15 ORAL) Take 1 tablet by mouth once daily. - blood sugar diagnostic (TRUE METRIX GLUCOSE [...] Units subcutaneously daily at bedtime. - Insulin Huntley, Disposable, (BD ULTRA-FINE BENNY PEN NEEDLE) 32 gauge x Use once daily with Lantus as directed - diclofenac sodium (VOLTAREN) 1 % topical gel Apply 2 g to affected area four times daily. - hydrocortisone 2.5 % cream Apply 1 application to affected area twice daily. Location: face - Blood-Glucose Meter (FREESTYLE LITE METER) monitoring kit 1 Each as directed. - Lancets lancets Use as instructed - potassium chloride (KLOR-CON 10) 10 mEq tablet Take 1 tablet by mouth once daily. - CHOLECALCIFEROL, VITAMIN D3, (VITAMIN D3 [...] monitor carefully Problem List As Of Date 02/20/2025 Noted Resolved GENERAL OSTEOARTHROSIS [M15.9] Diaphragmatic hernia [...] Glucose intolerance (pre-diabetes) [R73.03] 03/23/2011 07/04/2014 CAD (coronary artery disease) [I25.10] 03/23/2011 09/20/2022 Gout [M10.9] 01/04/2012 06/05/2020 AAA (abdominal aortic aneurysm) (HCC) [I71.40] 01/04/2012 06/05/2020 Diabetes mellitus type 2, uncontrolled, without*09/07/2012 06/05/2020 Stented coronary artery [Z95.5] 09/26/2013 Fatigue [R53.83] 07/04/2017 06/05/2020 Absolute anemia [D64.9] 07/04/2017 CKD (chronic kidney disease) stage 3, GFR 30-59* (more content not included)... Normal [facility] CRP [Mass/Vol] 3.2 mg/dL High <0.[address] [facility] Comment on above: Order Comment: Speci men Type: BLOOD SPECIMENOrdering Facility: [facility] Address: [address] [place] [address] Performed By: #### 2 885-2, 47958-9, 1987-5, 2131- ####[facility] LABCLIA [id number] [id number] [address] [place] Comprehensive metabolic 2000 panelon 02-20-2025 Albumin [Mass/Vol] 4.3 g/dL Normal 3.9-4.9 [facility] Comment on above: Order Comment: Speci men Type: BLOOD SPECIMENOrdering Facility: [facility] Address: [address] [place], [place] [address] Performed By: #### 2 885-2, , 1987-11, 2132-04 ####[facility] LABCLIA [id number] [address] [address] [place] ALP [Catalytic activity/Vol] 132 U/L High 38-[address] [facility] Comment on above: Order Comment: Speci men Type: BLOOD SPECIMENOrdering Facility: [facility] Address: [address] [place], [place] [address] Performed By: #### 2 885-2, , 1987-11, 2132-04 ####[facility] LABCLIA [id number] [address] [address] [place] ALT [Catalytic activity/Vol] 11 U/L Normal 10-[address] [facility] Comment on above: Order Comment: Speci men Type: BLOOD SPECIMENOrdering Facility: [facility] Address: [address] [place], [place] [address] Performed By: #### 2 885-2, , 2132-04 ####[facility] LABCLIA [id number] [address] [address] [place] Anion gap [Moles/Vol] 14 mmol/L Normal 8-15 [facility] Comment on above: Order Comment: Speci men Type: BLOOD SPECIMENOrdering Facility: [facility] Address: [address] [place], [place] [address] Performed By: #### 2 885-2, , 1987-11, 2132-04 ####[facility] LABCLIA [id number] [address] [address] [place] AST [Catalytic activity/Vol] 14 U/L Normal 14-[address] [facility] Comment on above: Order Comment: Speci men Type: BLOOD SPECIMENOrdering Facility: [facility] Address: [address] [place] [address] Performed By: #### 2 885-2, 88015-2, 2132-04 ####[facility] LABCLIA [id number] [place] [address] [place] Bilirubin [Mass/Vol] 0.3 mg/dL Normal 0.2-1.3 [place] Comment on above: Order Comment: Speci men Type: BLOOD SPECIMENOrdering Facility: [facility] Address: [address] [place] [address] Performed By: #### 2 885-2, , 2132-04 ####[facility] LABCLIA [id number] [place] [address] [place] Calcium [Mass/Vol] 9.6 mg/dL Normal 8.5-10.2 [facility] Comment on above: Order Comment: Speci men Type: BLOOD SPECIMENOrdering Facility: [facility] Address: [address] [place] [address] Performed By: #### 2 885-2, , 2132-04 ####[facility] LABCLIA [id number] [place] [address] [place] Chloride [Moles/Vol] 102 mmol/L Normal 98-107 [place] Comment on above: Order Comment: Speci men Type: BLOOD SPECIMENOrdering Facility: [facility] Address: [address] [place] [address] Performed By: #### 2 885-2, 36473-0, 2132-04 ####[facility] LABCLIA [id number] [place] [address] [place] CO2 [Moles/Vol] 26 mmol/L Normal 22-[address] [facility] Comment on above: Order Comment: Cyndy sinha Type: BLOOD SPECIMENOrdering Facility: [facility] Address: [address] [place] [address] Performed By: #### 2 885-2, 15164-7, 2132-04 ####[facility] LABCLIA [id number] [place] [address] [place] Creatinine [Mass/Vol] 1.86 mg/dL High 0.73-1.22 [facility] Comment on above: Order Comment: Cyndy sinha Type: BLOOD SPECIMENOrdering Facility: [facility] Address: [address] [place] [address] Performed By: #### 2 885-2, 59761-3, 2132-04 ####[facility] LABIA [id number] [place] [address] [place] eGFRcr SerPlBld CKD-EPI 2020 35 mL/min/1.73m??? Low >=[address] [facility] Comment on above: Order Comment: Cyndy sinha Type: BLOOD SPECIMENOrdering Facility: [facility] Address: [address] [place] [address] Result Comment: Jeanette mated Glomerular Filtration Rate [...] reflect actual GFR. Performed By: #### 2 885-2, , 2132-04 ####[facility] LABCLIA [id number] [address] [address] [place] Glucose [Mass/Vol] 90 mg/dL Normal 74-99 [facility] Comment on above: Order Comment: Speci men Type: BLOOD SPECIMENOrdering Facility: [facility] Address: [address] [place] [address] Result Comment: The [place] [employer] (ADA) provides guidance for cutoff [...] Standards of Medical Care in Diabetes 2016, [place] [employer]. Diabetes Care. 2016.39(Suppl 1). Performed By: #### 2 885-2, , 2132-04 ####[facility] LABIA [id number] [place] [address] [place] Potassium [Moles/Vol] 4.3 mmol/L Normal 3.7-5.1 [facility] Comment on above: Order Comment: Cyndy sinha Type: BLOOD SPECIMENOrdering Facility: [facility] Address: [address] [place] [address] Performed By: #### 2 885-2, , 2132-04 ####[facility] LABIA [id number] [place] [address] [place] Sodium [Moles/Vol] 142 mmol/L Normal 136-144 [facility] Comment on above: Order Comment: Ryani men Type: BLOOD SPECIMENOrdering Facility: [facility] Address: [address] [place], [place] [address] Performed By: #### 2 885-2, , 2132-04 ####[facility] LABCLIA [id number] [address] [address] [place] Urea nitrogen [Mass/Vol] 20 mg/dL Normal 9-[address] [facility] Comment on above: Order Comment: Speci men Type: BLOOD SPECIMENOrdering Facility: [facility] Address: [address] [place] [address] Performed By: #### 2 885-2, 94522-8, 1987-5, 2132-9 ####[facility] LABCLIA [id number] [place] [address] [place] ESR Westergren method (Bld) [Velocity]on 02-20-2025 ESR (Bld) [Velocity] 35 mm/h High 0-15 [place] Comment on above: Order Comment: Speci men Type: BLOOD SPECIMENOrdering Facility: [facility] Address: [address] [place] [address] Performed By: #### 5 7021-8, 4537-7 ####[facility] LABIA [id number] [place] [address] [place] Methylmalonate SerPl-sCncon 02-20-2025 Methylmalonate [Moles/Vol] 0.15 umol/L Normal <=0.[address] [facility] Comment on above: Order Comment: Speci men Type: BLOOD SPECIMENOrdering Facility: [facility] Address: [address] [place] [address] Result Comment: This test was developed, and its performance characteristics determined by the [facility] Department of Pathology and Laboratory Medicine. It has not been cleared or approved by the FDA. The [facility] Department of Pathology and Laboratory Medicine is regulated under CLIA as qualified to perform high-complexity testing. This test is used for clinical purposes. It should not be regarded as investigational or for research. Performed By: #### 1 3964-2 ####[facility] LABIA [id number] [place] [address] [place] PROTEIN ELECTROPHORESIS SERU M WITH ELIZABETH (P)on 02-20-2025 Albumin [Mass/Vol] 3.92 g/dL Normal 3.43-5.41 [facility] Comment on above: Order Comment: Speci men Type: BLOOD SPECIMENOrdering Facility: [facility] Address: [address] [place] [address] Performed By: #### L [id number] ####[facility] LABIA [id number] [place] [address] [place] Alpha 1 globulin Elph [Mass/Vol] 0.41 g/dL Normal 0.18-0.[address] [facility] Comment on above: Order Comment: Speci men Type: BLOOD SPECIMENOrdering Facility: [facility] Address: [address] [place] [address] Performed By: #### L [id number] ####[facility] [id number] [address] [place] Alpha 2 globulin Elph [Mass/Vol] 1.03 g/dL High 0.42-0.[address] [facility] Comment on above: Order Comment: Speci men Type: BLOOD SPECIMENOrdering Facility: [facility] Address: [address] [place] [address] Performed By: #### L [id number] ####[facility] [id number] [address] [place] Beta globulin Elph [Mass/Vol] 0.85 g/dL Normal 0.61-1.[address] [facility] Comment on above: Order Comment: Speci men Type: BLOOD SPECIMENOrdering Facility: [facility] Address: [address] [place] [address] Performed By: #### L [id number] ####[facility] [id number] [place] [address] [place] COMMENT (SERUM PROT ELECTRO) Monoclonal Protein analysis (immunofixation) is not indicated. Normal [facility] Comment on above: Order Comment: Speci men Type: BLOOD SPECIMENOrdering Facility: [facility] Address: [address] [place] [address] Performed By: #### L [id number] ####[facility] LABCLIA [id number] [address] [address] [place] Gamma globulin Elph [Mass/Vol] 0.69 g/dL Normal 0.53-1.[address] [facility] Comment on above: Order Comment: Speci men Type: BLOOD SPECIMENOrdering Facility: [facility] Address: [address] [place] [address] Performed By: #### L [id number] ####[facility] LABCLIA [id number] [address] [place] [address] [place] M-PROTEIN LOCATION Normal [facility] Comment on above: Order Comment: Speci men Type: BLOOD SPECIMENOrdering Facility: [facility] Address: [address] [place] [address] Result Comment: Not Applicable. Performed By: #### L [id number] ####[facility] LABCLIA [id number] [address] [address] [facility] [place] Protein Fractions [Interp] No definitive M protein is identified on protein electrophoresis. Normal No definitive M protein is identified on protein electrophor esis. [facility] Comment on above: Order Comment: Speci men Type: BLOOD SPECIMENOrdering Facility: [facility] Address: [address] [place] [address] Performed By: #### L [id number] ####[facility] LABIA [id number] [address] [address] [place] Protein.monoclonal Elph [Mass/Vol] 0.00 g/dL Normal <=0.[address] [facility] Comment on above: Order Comment: Speci men Type: BLOOD SPECIMENOrdering Facility: [facility] Address: [address] [place] [address] Performed By: #### L [id number] ####[facility] LABCLIA [id number] [address] [address] [place] SPE STAFF REVIEW Reviewed by Dominick Silverio MD, Ph.D ([id number]) Normal [facility] Comment on above: Order Comment: Speci men Type: BLOOD SPECIMENOrdering Facility: [facility] Address: [address] [place] [address] Performed By: #### L [id number] ####[facility] LABCLIA [id number] [place] [id number] [place] Prot SerPl-mCncon 02-20-2025 Protein [Mass/Vol] 6.9 g/dL Normal 6.3-8.0 [facility] Comment on above: Order Comment: Speci men Type: BLOOD SPECIMENOrdering Facility: [facility] Address: [address] [place] [address] Performed By: #### 2 885-2, 50695-4, 1987-11, 2132-04 ####[facility] LABCLIA [id number] [place] [address] [place] Vit B12 SerPl-mCncon 025 Cobalamin (Vitamin B12) [Mass/Vol] pg/mL High 232-[address] [facility] Comment on above: Order Comment: Speci men Type: BLOOD SPECIMENOrdering Facility: [facility] Address: [address] [place] [address] Performed By: #### 2 885-2, 99318-5, 2132-04 ####[facility] LABIA [id number] [place] [id number] [place] MR Brain WO contraston 01-31 IMPRESSION: No evidence of acute intracranial abnormality. Scattered patchy and confluent T2 FLAIR hyperintense lesions are present in the bilateral supratentorial brain compatible with sequelae of chronic small vessel disease. Green House Manager: JASON Transcribe Date/Time: Jan 31 2025 12:42P Dictated by : JOSE ANTONIO GROSS MD This examination was interpreted and the report reviewed and electronically signed by: JOSE ANTONIO GROSS MD on Jan 31 2025 12:44PM [facility] DIVISION OF RADIOLOGY * * *Final Report* * * DATE OF EXAM: Jan 31 2025 12:30PM [facility] 0294 - MRI BRAIN WO IVCON / PROCEDURE REASON: Other symptoms and signs involving the nervous system * * * * Physician Interpretation * * * * EXAMINATION: MRI BRAIN WO IVCON CLINICAL HISTORY: TIA TECHNIQUE: Routine noncontrast MRI protocol including diffusion images. MQ: MRBWO_2 COMPARISON: None. RESULT: Acute Change: There is no evidence of restricted diffusion to suggest an acute infarct. Hemorrhage: Few small foci of chronic petechial hemorrhage are present scattered throughout the bilateral supratentorial and infratentorial brain, potentially hypertensive in etiology. Mass Lesion/ Mass Effect: No evidence of an intracranial mass or extra-axial fluid collection. No mass effect. Chronic Change: Scattered patchy and confluent T2 FLAIR hyperintense lesions are present in the bilateral supratentorial brain compatible with sequelae of chronic small vessel disease. Parenchyma: No significant volume loss for age. Ventricles: No evidence of hydrocephalus. Skull Base: Hypothalamic and pituitary region are grossly normal. Craniocervical junction is normal. No significant marrow replacement process. Vasculature: Major intracranial arterial structures, and dural venous sinuses show typical flow void, suggesting patency by spin echo criteria. Other: Fluid is present in the right frontal sinus and mucosal thickening is present scattered in the bilateral ethmoid sinuses compatible with inflammatory paranasal sinus disease. The orbits and extracranial soft tissues are unremarkable. DIVISION OF RADIOLOGY Provider, Tatiana [facility] - 01/31/2025 * * *Final Report* * * DATE OF EXAM: Jan 31 2025 12:30PM [facility] 0294 - [facility] PROCEDURE REASON: Other symptoms and signs involving the nervous system * * * * Physician Interpretation * * * * EXAMINATION: MRI BRAIN WO IVCON CLINICAL HISTORY: TIA TECHNIQUE: Routine noncontrast MRI protocol including diffusion images. MQ: MRBWO_2 COMPARISON: None. RESULT: Acute Change: There is no evidence of restricted diffusion to suggest an acute infarct. Hemorrhage: Few small foci of chronic petechial hemorrhage are present scattered throughout the bilateral supratentorial and infratentorial brain, potentially hypertensive in etiology. Mass Lesion/ Mass Effect: No evidence of an intracranial mass or extra-axial fluid collection. No mass effect. Chronic Change: Scattered patchy and confluent T2 FLAIR hyperintense lesions are present in the bilateral supratentorial brain compatible with sequelae of chronic small vessel disease. Parenchyma: No significant volume loss for age. Ventricles: No evidence of hydrocephalus. Skull Base: Hypothalamic and pituitary region are grossly normal. Craniocervical junction is normal. No significant marrow replacement process. Vasculature: Major intracranial arterial structures, and dural venous sinuses show typical flow void, suggesting patency by spin echo criteria. Other: Fluid is present in the right frontal sinus and mucosal thickening is present scattered in the bilateral ethmoid sinuses compatible with inflammatory paranasal sinus disease. The orbits and extracranial soft tissues are unremarkable. IMPRESSION IMPRESSION: No evidence of acute intracranial abnormality. Scattered patchy and confluent T2 FLAIR hyperintense lesions are present in the bilateral supratentorial brain compatible with sequelae of chronic small vessel disease. Green House Manager: JASON Transcribe Date/Time: Jan 31 2025 12:42P Dictated by : JOSE ANTONIO GROSS MD This examination was interpreted and the report reviewed and electronically signed by: JOSE ANTONIO GROSS MD on Jan 31 2025 12:44PM EST [facility] Radiology Study observation (narrative) [facility] MR Brain WO contrastOrdered By: Ccf Provider on 01-31-2025 [facility] MRI BRAIN WO IVCONon 025 MRI BRAIN WO IVCON * * *Final Report* * * DATE OF EXAM: Jan 31 2025 12:30PM [facility] 0294 - MRI BRAIN WO IVCON / PROCEDURE REASON: Other symptoms and signs involving the nervous system * * * * Physician Interpretation * * * * EXAMINATION: MRI BRAIN WO IVCON CLINICAL HISTORY: TIA TECHNIQUE: Routine noncontrast MRI protocol including diffusion images. MQ: MRBWO_2 COMPARISON: None. RESULT: Acute Change: There is no evidence of restricted diffusion to suggest an acute infarct. Hemorrhage: Few small foci of chronic petechial hemorrhage are present scattered throughout the bilateral supratentorial and infratentorial brain, potentially hypertensive in etiology. Mass Lesion/ Mass Effect: No evidence of an intracranial mass or extra-axial fluid collection. No mass effect. Chronic Change: Scattered patchy and confluent T2 FLAIR hyperintense lesions are present in the bilateral supratentorial brain compatible with sequelae of chronic small vessel disease. Parenchyma: No significant volume loss for age. Ventricles: No evidence of hydrocephalus. Skull Base: Hypothalamic and pituitary region are grossly normal. Craniocervical junction is normal. No significant marrow replacement process. Vasculature: Major intracranial arterial structures, and dural venous sinuses show typical flow void, suggesting patency by spin echo criteria. Other: Fluid is present in the right frontal sinus and mucosal thickening is present scattered in the bilateral ethmoid sinuses compatible with inflammatory paranasal sinus disease. The orbits and extracranial soft tissues are unremarkable. IMPRESSION: No evidence of acute intracranial abnormality. Scattered patchy and confluent T2 FLAIR hyperintense lesions are present in the bilateral supratentorial brain compatible with sequelae of chronic small vessel disease. Green House Manager: PSCB Transcribe Date/Time: Jan 31 2025 12:42P Dictated by : JOSE ANTONIO GROSS MD This examination was interpreted and the report reviewed and electronically signed by: JOSE ANTONIO GROSS MD on Jan 31 2025 12:44PM EST [id number] Normal [facility] CNOVon 01-30-2025 CNOV Office Visit (FAMPWS ) -- ALEJO GAGE ([id number]) 1940 M Date Time Provider Department 01/30/25 1:20 PM LALA GODINEZ During your visit today, we recorded the following information about you: Pulse Blood pressure Weight 65/minute 144/67 73 kg Lala Godinez, MICHI.KEELER POLYGRAPH OPERATOR 01/30/2025 1:44 PM Signed Chief Complaint Patient presents with: Follow Up HPI Alejo Gage is a 84 year old male who presents here today for Above Complaints. Patient presents for follow up. Patient reports he continues to have swallowing difficulty and vision abnormalities. Swallowing has slightly improved but vision has worsened slightly. Has Cookie swallow ordered and scheduled at [facility]. Reports carotid US shows 50-70% blockage on the left and 50% on right. Hx of right carotid endarterectomy with Dr. Triana. Appt with eye doctor scheduled in March with Dr. Victor. Past medical history, appointments, medications, allergies reviewed. [...] Xience stent to L circumflex EGD 04/26/2017 [facility] Dr. Nolan Triana EGD 05/23/2024 EGD TRANSORAL BIOPSY SINGLE/MULTIPLE 07/10/2007 PAST SURGICAL HISTORY OF 01/26/2008 stent placement ramus and prox ramus PAST SURGICAL HISTORY OF heart stents PROSTATECTOMY PERINEAL RADICAL 1999 Prostatectomy, radical- Dr. 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 Yousif Triana; next screening colonoscopy in 10yrs, [facility] UNLISTED DIAGNOSTIC GASTROENTEROLOGY PROCEDURE 06/06/2018 Family History FAMILY HISTORY Problem Relation Age of Onset Hypertension Father COPD Father Heart Mother Patient Allergies ALLERGIES Allergen Reactions Atorvastatin Unknown Crestor [Rosuvastat* Other: See Comments Muscle pain Glucosamine Unknown Nerve pain Motrin [Ibuprofen] Rash Pravastatin Other: See Comments muscle aches Zbrpxjz-Lcl-Hge Red* Other: See Comments myalgia Current Medications Current Outpatient Medications on File Prior to Visit Medication Sig fluticasone-salmeterol (ADVAIR DISKUS) 100-50 mcg/dose inhaler Inhale 1 puff as instructed two times a day. triamcinolone acetonide (NASACORT ALLERGY) 55 mcg nasal [...] 10 Units subcutaneously daily at bedtime. Insulin Huntley, Disposable, (BD ULTRA-FINE BENNY PEN NEEDLE) 32 gauge x 5/32 Use once daily with Lantus as directed diclofenac sodium (VOLTAREN) 1 % topical gel Apply 2 g to affected area four times daily. flaxseed oil (OMEGA 3 ORAL) Take by mouth. hydrocortisone 2.5 % cream Apply 1 application to affected area twi (more content not included)... Normal [facility] Mirza 01-29-2025 JAIRONN Telephone (FAMPWS) -- ALEJO GAGE ([id number]) 1940 M Date Time Provider Department 01/29/25 SAMSON RAGSDALE During your visit today, we recorded the following information about you: Jocelyne Dang 01/29/2025 10:25 AM Signed Patient came in concerned about a possible stroke. He saw Jony Godinez on 01/17/2025 she ordered a stat brain CT. Patient states that when spoke with Dr. Mcduffie that he told him that the CT would not show anything. Still experiencing blurred vision, trouble swallowing as well. Please advise Marina Connor MA 01/29/2025 10:39 AM Signed Nurse triage appt scheduled. Pt is scheduled with Maylin Cheng on 01/31/25. Neeru Sarabia RN 01/29/2025 11:29 AM Signed Pt was scheduled for an appt with Cony Cheng on 01/31. Pt already seen for below symptoms. Reviewed Lala Godinez's office note of 01/17 and pt has already undergone testing. Called and spoke with pt to see what has changed. Pt states his trouble swallowing has gotten a little better and his eyesight is about the same. He states blurred vision at first but then states it is more like it is distorted off and on. Pt states he came into the office to ask Dr. Ragsdale if she wanted to order an MRI to confirm if he had a light stroke or not. Booked pt back on Lala Godinez's office for tomorrow at 120 pm for follow up and to discuss further testing if needed. Allergies As of Date: 01/29/2025 Noted Allergy Reaction ATORVASTATIN 10/18/2017 16 - Unknown CRESTOR (ROSUVASTATIN CALCIUM) 04/24/2013 14 - Other: See Comments Comments: Muscle pain GLUCOSAMINE 06/27/2017 16 - Unknown Comments: Nerve pain MOTRIN (IBUPROFEN) 01/19/2006 2 - Rash PRAVASTATIN 02/19/2013 14 - Other: See Comments Comments: muscle aches HABOFFP-OOA-ZGM REDUCTASE INHIBIT*10/09/2014 14 - Other: See Comments Comments: myalgia Date Reviewed: 01/17/2025 Reviewed by: Thu Wick MA - Fully Assessed Reason for Visit: Orders [681] Recheck [92] Cmt: for difficulty swallowing and distorted vision Prescriptions as of 01/29/2025 - fluticasone-salmeterol (ADVAIR DISKUS) 100-50 mcg/dose inhaler Inhale 1 puff as instructed two times a day. - triamcinolone acetonide (NASACORT ALLERGY) 55 mcg nasal inhaler Use 2 sprays in each nostril once daily. - zinc sulfate (ZINC-15 ORAL) Take 1 tablet by mouth once daily. - blood sugar diagnostic (TRUE METRIX GLUCOSE [...] Units subcutaneously daily at bedtime. - Insulin Huntley, Disposable, (BD ULTRA-FINE BENNY PEN NEEDLE) 32 gauge x 5/32 Use once daily with Lantus as directed - diclofenac sodium (VOLTAREN) 1 % topical gel Apply 2 g to affected area four times daily. - flaxseed oil (OMEGA 3 ORAL) Take by mouth. - hydrocortisone 2.5 % cream Apply 1 application to affected area twice daily. Location: face - cetirizine HCl (ZYRTEC) 10 mg chewable [...] 1 tablet by mouth once daily. - CHOLECALCIFEROL, VITAMIN D3, (VITAMIN D3 [...] monitor carefully Problem List As Of Date 01/29/2025 Noted Resolved GENERAL OSTEOARTHROSIS [M15.9] Diaphragmatic hernia [K44.9] Unspecified cardiovascular disease [I25.10] 09/20/2022 Pure hypercholesterolemia [E78.00] History of prostate cancer [Z85.46] Hypertensive kidney disease with chronic kidney* Abdominal aneurysm without mention of rupture [* 06/05/2020 (more content not included)... Normal [facility] Abd Aortic/IVC Duplex scanon 01-22-2025 Abd Aortic/IVC Duplex scan [facility] [address] [place] [address] Abd Aortic/IVC Duplex scan 01/22/25 0905 MR#: [id number] Acct: [id number] Name: ALEJO GAGE Rep #: [id number] : 1940 84 From: Bk Arzate MD Attending Dr: Dr. Srini Montano MD Status: [facility] Ordering Dr: Srini Montano MD Date: 01/22/25 Location: [facility] Sex: M C Admitted: Reason For Study Reason For Study: AAA Aorta Measurements Aorta Doppler Measurements Proximal aorta measures1.63cm x 1.55cm. in cross-sectional Peak systolic flow velocities within the proximal aorta axis. measure 148 cm/sec. Proximal aorta measures1.65cm. in longitudinal axis. Peak systolic flow velocities within the mid aorta measure Mid aorta measures3.58cm x 4.78cm. in cross-sectional axis. 130 cm/sec. Mid aorta measures3.47cm. in longitudinal axis. Peak systolic flow velocities within the distal aorta Distal aorta measures2.04cm x 1.87cm. in cross-sectional measure 108 cm/sec. axis. Distal aorta measures1.44cm. in longitudinal axis. Left Iliac Artery Left iliac artery measures 1.05cm x 0.94 cm. in the cross-sectional axis. Left iliac artery measures 1.08 cm. in the longitudinal axis. Peak systolic velocity in the left iliac artery measures 143 cm/sec. Right Iliac Artery Right iliac artery measures 0.82cm x 1.0 cm. in the cross-sectional axis. Right iliac artery measures 0.93 cm. in the longitudinal axis. Peak systolic velocity in the right iliac artery measures 123 cm/sec. Procedure Aorta IVC Iliac vasculature or bypass grafts 25584. Exam performed in department. 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 Bilateral iliac arteries patent, normal caliber Ordering Physician: Srini Montano Referring Physician: Samson Ragsdale Performed By: Stephanie Garcia, AMANDEEP, RVT 01/22/25 1104 Date Bk Arzate MD CC: Dr. Srini Montano MD; Dr. Samson Ragsdale DO Date Dictated: 01/22/25904 Date Transcribed: 01/22/251103 Green House Manager: Signed Normal [facility] Abdominal aortic duplex scan reportOrdered By: Bk Arzate on 01-22-2025 US.doppler Thoracic and abdominal aorta [facility] [address] [place] [address] Abd Aortic/IVC Duplex scan 01/22/25904 MR#: [id number] Acct: [id number] Name: ALEJO GAGE Rep #:[id number] : 1940 84 From: Bk Delarosa Attending Dr: Dr. Srini Montano MD Status: REG CLI Ordering Dr: Srini Montano MD Date: Location: [facility] Sex: M C Admitted: Reason For Study Reason For Study: AAA Aorta Measurements Aorta Doppler Measurements Proximal aorta measures1.63cm x 1.55cm. in cross-sectional Peak systolic flow velocities within the proximal aorta axis. measure 148 cm/sec. Proximal aorta measures1.65cm. in longitudinal axis. Peak systolic flow velocities within the mid aorta measure Mid aorta measures3.58cm x 4.78cm. in cross-sectional axis. 130 cm/sec. Mid aorta measures3.47cm. in longitudinal axis. Peak systolic flow velocities within the distal aorta Distal aorta measures2.04cm x 1.87cm. in cross-sectional measure 108 cm/sec. axis. Distal aorta measures1.44cm. in longitudinal axis. Left Iliac Artery Left iliac artery measures 1.05cm x 0.94 cm. in the cross-sectional axis. Left iliac artery measures 1.08 cm. in the longitudinal axis. Peak systolic velocity in the left iliac artery measures 143 cm/sec. Right Iliac Artery Right iliac artery measures 0.82cm x 1.0 cm. in the cross-sectional axis. Right iliac artery measures 0.93 cm. in the longitudinal axis. Peak systolic velocity in the right iliac artery measures 123cm/sec. Procedure Aorta IVC Iliac vasculature or bypass grafts 15208. Exam performed in department. 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 Bilateral iliac arteries patent, normal caliber Ordering Physician: Srini Montano Referring Physician: Samson Ragsdale Performed By: Stephanie Garcia, RDCS, RVT 01/22/25 1104 Date _ Bk Arzate MD CC: Dr. Srini Montano MD; Dr. Samson Ragsdale, DO ~ Date Dictated: 01/22/25904 Date Transcribed: 01/22/251103 Green House Manager: Signed [facility] Work Phone: Carotid Duplex Ultrasoundon 01-22-2025 Carotid Duplex Ultrasound [facility] [address] [place] [address] Carotid Duplex Ultrasound 01/22/25927 MR#: [id number] Acct: [id number] Name: ALEJO GAGE Rep #: [id number] : 1940 84 From: Bk Arzate MD Attending Dr: Dr. Srini Montano MD Status: REG CLI Ordering Dr: Srini Montano MD Date: 01/22/25 Location: [facility] Sex: M C Admitted: Reason For Study Reason For Study: Carotid Stenosis Rt. Velocities/BP Lt. Velocities/BP Prox CCA 70/8 cm/sec. Prox CCA 100/18 cm/sec. Mid CCA 77/14 cm/sec. Mid CCA 89/17 cm/sec. Dist CCA 63/8 cm/sec. Dist CCA 83/16 cm/sec. Prox ICA 37/8 cm/sec. Prox ICA 107/25 cm/sec. Mid ICA 39/10 cm/sec. Mid ICA 127/30 cm/sec. Dist ICA 71/14 cm/sec. Dist ICA 64/18 cm/sec. Rt. ICA/CCA = 0.9. Lt. ICA/CCA = 1.42. Prox ECA 285/18 cm/sec. Prox ECA 299/5 cm/sec. Rt. Vert. 59/3 cm/sec. Lt. Vert. 49/14 cm/sec. Right Extracranial There is heterogeneous, irregular atherosclerotic plaque noted in the right common carotid artery. There is heterogeneous, smooth atherosclerotic plaque noted in the right internal carotid artery. Acoustic shadowing noted at Rt prox ICA. There is heterogeneous, irregular atherosclerotic plaque noted in the right external carotid artery. Antegrade flow is noted in the right vertebral artery. Left Extracranial There is heterogeneous, irregular atherosclerotic plaque noted in the left common carotid artery. There is heterogeneous, irregular atherosclerotic plaque noted in the left internal carotid artery. There is heterogeneous, irregular atherosclerotic plaque noted in the left external carotid artery. Antegrade flow is noted in the left vertebral artery. Procedure Carotid Duplex 38812. This is a Carotid Duplex examination using B-mode, color flow and specral Doppler. Exam performed in department. VL/Carotid Duplex Ultrasound Interpretation Summary Mild (<50%) stenosis right extracranial internal carotid. Limited by calcific shadowing, alternative imaging may be beneficial. Moderate (50-69%) stenosis left extracranial internal carotid. Patent and antegrade vertebrals bilaterally. Ordering Physician: Srini Montano Referring Physician: Samson Ragsdale Performed By: Stephanie Garcia, RDCS, RVT 01/22/25 1106 Date Bk Arzate MD CC: Dr. Srini Montano MD; Dr. Samson Ragsdale DO Date Dictated: 01/22/25927 Date Transcribed: 01/22/251105 Green House Manager: Signed Normal [facility] Duplex ultrasound of carotid artery reportOrdered By: Bk Arzate on 01-22-2025 Study report [facility] [address] [place] [address] Carotid Duplex Ultrasound 01/22/25927 MR#: [id number] Acct: [id number] Name: ALEJO GAGE Rep #:[id number] : 1940 84 From: Bk Delarosa Attending Dr: Dr. Srini Montano MD Status: REG CLI Ordering Dr: Srini Montano MD Date: Location: [facility] Sex: M C Admitted: Reason For Study Reason For Study: Carotid Stenosis Rt. Velocities/BP Lt. Velocities/BP Prox CCA 70/8 cm/sec. Prox CCA 100/18 cm/sec. Mid CCA 77/14 cm/sec. Mid CCA 89/17 cm/sec. Dist CCA 63/8 cm/sec. Dist CCA 83/16 cm/sec. Prox ICA 37/8 cm/sec. Prox ICA 107/25 cm/sec. Mid ICA 39/10 cm/sec. Mid ICA 127/30 cm/sec. Dist ICA 71/14 cm/sec. Dist ICA 64/18 cm/sec. Rt. ICA/CCA = 0.9. Lt. ICA/CCA = 1.42. Prox ECA 285/18 cm/sec. Prox ECA 299/5 cm/sec. Rt. Vert. 59/3 cm/sec. Lt. Vert. 49/14 cm/sec. Right Extracranial There is heterogeneous, irregular atherosclerotic plaque noted in the right common carotid artery. There is heterogeneous, smooth atherosclerotic plaque noted in the right internal carotidartery. Acoustic shadowing noted at Rt prox ICA. There is heterogeneous, irregular atherosclerotic plaque noted in the right external carotid artery. Antegrade flow is noted in the right vertebral artery. Left Extracranial There is heterogeneous, irregular atherosclerotic plaque noted in the left common carotid artery. There is heterogeneous, irregular atherosclerotic plaque noted in the left internal carotid artery. There is heterogeneous, irregular atherosclerotic plaque noted in the left external carotid artery. Antegrade flow is noted in the left vertebral artery. Procedure Carotid Duplex 34670. This is a Carotid Duplex examination using B-mode, color flow and specral Doppler. Exam performed in department. VL/Carotid Duplex Ultrasound Interpretation Summary Mild (<50%) stenosis right extracranial internal carotid. Limited by calcific shadowing, alternative imaging may be beneficial. Moderate (50-69%) stenosis left extracranial internal carotid. Patent and antegrade vertebrals bilaterally. Ordering Physician: Srini Montano Referring Physician: Samson Ragsdale Performed By: Stephanie Garcia, AMANDEEP, RVT 01/22/25 1106 Date _ Bk Arzate MD CC: Dr. Srini Montano MD; Dr. Samson Ragsdale DO ~ Date Dictated: 01/22/25927 Date Transcribed: 01/22/25 110 Green House Manager: Signed [facility] Work Phone: Cardiovascular stress test r eportOrdered By: Srini Montano on 01-21-2025 Study report [facility] [address] [place] [address] MR#: [id number] Acct: [id number] Name: ALEJO GAGE Rep #: [id number] : 1940 84 From: Srini Montano MD Primary Care: Dr. Samson Ragsdale DO Sta tus: REG CLI Referring Dr: Srini Montano MD Sex: M C Stress Test Report Date: 01/18/2025 Procedure: Pharmacologic stress nuclear imaging study Indications: Dyspnea Consent: Per the patient Procedure: The patient underwent pharmacologic (Regadenoson 0.4mg ) evaluation with a peak heart rate of 104 beats per minute (75%predicted maximal heart rate) and a peak blood pressure of 122/48 mmHg. The baseline ECG demonstrated sinus rhythm with nonspecific ST changes. The peak pharmacologic ECG was nondiagnostic secondary to baseline abnormalities. No ischemic changes noted. There were no cardiac dysrhythmias pretest, during pharmacologic infusion, or recovery. There was no complaint of chest discomfort during pharmacologic infusion or recovery. The patient was injected with 12.0 millicuries of technetium 99m Cardiolite and subsequently rest SPECT Cardiolite nuclear imaging was obtained in the horizontal long, vertical long, and short axis views. The patient underwent pharmacologic (Regadenoson) evaluation. The patient was injected with 36.0 millicuries of technetium 99m Cardiolite and subsequently stress SPECT Cardiolite nuclear imaging was obtained in the horizontal long, vertical long, and short axis views. A gated Cardiolite study at peak stress was obtained. The examination was stopped secondary to completion of protocol. Rest and stress SPECT Cardiolite nuclear imaging status post realignment, normalization, and attenuation correction demonstrate no fixed or reversible perfusion defects. There is end systolic thickening and brightening. The gatedCardiolite study demonstrates myocardial thickening and inward wall motion. Thereported LVEF is 53%. Impression: 1. Pharmacologic (Regadenoson) evaluation 2. Peak pharmacologic ECG with no diagnostic changes. 3. There were no cardiac dysrhythmias pretest, during pharmacologic infusion, or recovery. 5. Rest and stress SPECT Cardiolite nuclear imaging demonstrate relative uniform tracer uptake and myocardial perfusion appearing within normal limits. 6. The gated Cardiolite study reports an LVEF of 53%. This note was generated with [employer] software. It may contain incorrectwords, spelling, and punctuation that were not noted in checking the note beforesigning. 01/21/25814 Date _ Srini Montano MD CC: Dr. Srini Montano MD; Dr. Samson Ragsdale DO ~ Date Dictated: 01/21/25813 Date Transcribed: 01/21/25813 Green House Manager: HE Fam [facility] Work Phone: Echocardiogram study reportO rdered By: Srini Montano on 01-21-2025 Study report [facility] Cardi[facility] [address] [place] [address] Echo Complete 01/18/2542 MR#: [id number] Acct: [id number] Name: ALEJO GAGE Rep #:[id number] : 1940 84 From: Srini Montano MD Attending Dr: Dr. Srini Montano MD Status: REG CLI Ordering Dr: Srini Montano MD Date: Location: [facility] Sex: M C Admitted: Reason For Study Reason For Study: DYSPNEA Procedure This was a 2D Doppler, Color Flow transthoracic echocardiogram. Exam performed in department. Left Ventricle Mild concentric left ventricular hypertrophy. Normal LV size. The LV ejection fraction is 60 %. Stage 1 diastolic dysfunction. Right Ventricle Normal right ventricle. Atria The left and right atria are normal. Mitral Valve Trivial mitral valve insufficiency. Tricuspid Valve Mild tricuspid valve insufficiency. Right ventricular systolic pressure estimated to be 37 mmHg. Aortic Valve Aortic sclerosis, no stenosis. Pulmonic Valve Mild (1+) pulmonic valve insufficiency. Great Vessels Normal sized aortic root. Pericardium/Pleural No pericardial effusion. MMode/2D Measurements & Calculations LVIDd: 4.1 cm IVSd: 1.4 cm LVOT diam: 2.0 cm LVIDs: 3.2 cm LVPWd: 1.2 cm LVOT area: 3.0 cm2 FS: 23.2 % Ao root diam: 3.2 cm LAV(MOD-bp): 34.7 ml LVAd ap4: 24.3 cm2 LAV(MOD-bp) Indexed: 18.5 ml/m2 LVLd ap4: 7.7 cm LAV(MOD-sp2): 36.1 ml EDV(MOD-sp4): 64.7 ml LAV(MOD-sp4): 32.6 ml EDV(sp4-el): 64.8 ml LVAs ap4: 13.6 cm2 LVLs ap4: 5.9 cm ESV(MOD-sp4): 26.0 ml ESV(sp4-el): 26.4 ml EF(MOD-sp4): 59.9 % EF(sp4-el): 59.3 % SV(MOD-sp4): 38.8 ml SV(sp4-el): 38.4 ml LA A4 area: 14.7 cm2 SI(MOD-sp4): 20.7 ml/m2 LA dimension(2D): 3.9 cm RA A4 area: 13.8 cm2 Time Measurements MV dec time: 0.26 sec Doppler Measurements & Calculations MV E max vane: 67.7 cm/sec Med Peak E' Vane: 7.4 cm/sec MV V2 max: 115.9 cm/sec MV A max vane: 116.3 cm/sec E/E' med: 9.1 MV max P.4 mmHg MV E/A: 0.58 MV V2 mean: 58.0 cm/sec MV mean P.6 mmHg MV V2 VTI: 35.3 cm MVA(VTI): 2.3 cm2 __ MV dec slope: 271.9 cm/sec2 Ao V2 max: 120.8 cm/sec LV V1 max: 84.6 cm/sec Ao max P.8 mmHg LV V1 max P.1 mmHg Ao V2 mean: 78.1 cm/sec LV V1 mean P.2 mmHg Ao mean P.9 mmHg LV V1 mean: 83.4 cm/sec Ao V2 VTI: 26.9 cm LV V1 VTI: 27.1 cm AV (velocity ratio): 1.0 SONY(I,D): 3.1 cm2 SONY(V,D): 2.1 cm2 __ SV(LVOT): 82.6 ml PA V2 max: 118.9 cm/sec TR max vane: 281.9 cm/sec PA V2 mean: 73.8 cm/sec TR max P.8 mmHg ECHO/Echo Complete Interpretation Summary Mild concentric left ventricular hypertrophy. The LV ejection fraction is 60 %. Stage 1 diastolic dysfunction. Mild tricuspid valve insufficiency. Right ventricular systolic pressure estimated to be 37 mmHg. Mild (1+) pulmonic valve insufficiency. Ordering Physician: Srini Montano Referring Physician: Srini Montano Performed By: Nelly Gamble RCS 01/21/25 0804 Date _ Srini Montano MD CC: Dr. Srini Montano MD; Dr. Samson Ragsdale DO ~ Date Dictated: 01/18/25941 Date Transcribed: 01/21/25803 Green House Manager: Signed [facility] Work Phone: Stress Reporton 01-21-2025 Stress Report [facility] Cardi[facility] Services [address] [place] [address] MR#: [id number] Acct: [id number] Name: ALEJO GAGE Rep #: [id number] : 1940 84 From: Srini Montano MD Primary Care: Dr. Samson Ragsdale DO Status: REG CLI Referring Dr: Srini Montano MD Sex: M C Stress Test Report Date: 01/18/2025 Procedure: Pharmacologic stress nuclear imaging study Indications: Dyspnea Consent: Per the patient Procedure: The patient underwent pharmacologic (Regadenoson 0.4mg ) evaluation with a peak heart rate of 104 beats per minute (75%predicted maximal heart rate) and a peak blood pressure of 122/48 mmHg. The baseline ECG demonstrated sinus rhythm with nonspecific ST changes. The peak pharmacologic ECG was nondiagnostic secondary to baseline abnormalities. No ischemic changes noted. There were no cardiac dysrhythmias pretest, during pharmacologic infusion, or recovery. There was no complaint of chest discomfort during pharmacologic infusion or recovery. The patient was injected with 12.0 millicuries of technetium 99m Cardiolite and subsequently rest SPECT Cardiolite nuclear imaging was obtained in the horizontal long, vertical long, and short axis views. The patient underwent pharmacologic (Regadenoson) evaluation. The patient was injected with 36.0 millicuries of technetium 99m Cardiolite and subsequently stress SPECT Cardiolite nuclear imaging was obtained in the horizontal long, vertical long, and short axis views. A gated Cardiolite study at peak stress was obtained. The examination was stopped secondary to completion of protocol. Rest and stress SPECT Cardiolite nuclear imaging status post realignment, normalization, and attenuation correction demonstrate no fixed or reversible perfusion defects. There is end systolic thickening and brightening. The gated Cardiolite study demonstrates myocardial thickening and inward wall motion. The reported LVEF is 53%. Impression: 1. Pharmacologic (Regadenoson) evaluation 2. Peak pharmacologic ECG with no diagnostic changes. 3. There were no cardiac dysrhythmias pretest, during pharmacologic infusion, or recovery. 5. Rest and stress SPECT Cardiolite nuclear imaging demonstrate relative uniform tracer uptake and myocardial perfusion appearing within normal limits. 6. The gated Cardiolite study reports an LVEF of 53%. This note was generated with [employer] dictation software. It may contain incorrect words, spelling, and punctuation that were not noted in checking the note before signing. 01/21/25814 Date Srini Montano MD CC: Dr. Srini Montano MD; Dr. Samson Ragsdale DO Date Dictated: 01/21/25813 Date Transcribed: 01/21/25813 Green House Manager: AR Signed Normal [facility] Brain/Head without Contrasto n 01-18-2025 Brain/Head without Contrast [facility] Imaging Services [address] [place] [address] [id number] Brain/Head without Contrast MR#: [id number] Acct: [id number] Name: ALEJO GAGE Rep #: [id number] : 1940 M 84 From: Aquilino laguerre MD PCP: Dr. 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 One or more dose reduction techniques were used (e.g., Automated exposure control, adjustment of the mA and/or kV according to patient size, use of iterative reconstruction technique. RADIATION DOSE SUMMARY: CTDlvol: 44.99 mGy DLP: 798 mGycm COMPARISON: None. FINDINGS: Mild diffuse cortical atrophy, commensurate with the patient's age. Scattered hypodense foci in the periventricular and subcortical white matter suggestive of chronic ischemic white matter disease. Normal size of the ventricles and extra-axial spaces for the patient's age. Normal basal ganglia and thalami. Normal brainstem. Normal cerebellum. There is no demonstrated extra-axial, intraparenchymal, or intraventricular hemorrhage. There are no findings of an acute ischemic infarction. Normal calvarium. There is no demonstrated fracture. Normal soft tissue structures. Mild chronic mucosal inflammatory changes of the right frontal sinus. Normal remaining visualized paranasal sinuses. CT/Brain/Head without Contrast IMPRESSION: No CT evidence for acute brain abnormality. Reading Location: [place] [address] CC: MAXINE Godinez; Dr. Samson Ragsdale DO Green House Manager: Signed Normal [facility] Echo Completeon 01-18-2025 Echo Complete [facility] [address] [place] [address] Echo Complete 01/18/25 0942 MR#: [id number] Acct: [id number] Name: ALEJO GAGE Rep #: [id number] : 1940 84 From: Srini Montano MD Attending Dr: Dr. Srini Montano MD Status: REG CLI Ordering Dr: Srini Montano MD Date: 01/18/25 Location: [facility] Sex: M C Admitted: Reason For Study Reason For Study: DYSPNEA Procedure This was a 2D Doppler, Color Flow transthoracic echocardiogram. Exam performed in department. Left Ventricle Mild concentric left ventricular hypertrophy. Normal LV size. The LV ejection fraction is 60 %. Stage 1 diastolic dysfunction. Right Ventricle Normal right ventricle. Atria The left and right atria are normal. Mitral Valve Trivial mitral valve insufficiency. Tricuspid Valve Mild tricuspid valve insufficiency. Right ventricular systolic pressure estimated to be 37 mmHg. Aortic Valve Aortic sclerosis, no stenosis. Pulmonic Valve Mild (1+) pulmonic valve insufficiency. Great Vessels Normal sized aortic root. Pericardium/Pleural No pericardial effusion. MMode/2D Measurements Calculations LVIDd: 4.1 cm IVSd: 1.4 cm LVOT diam: 2.0 cm LVIDs: 3.2 cm LVPWd: 1.2 cm LVOT area: 3.0 cm2 FS: 23.2 % Ao root diam: 3.2 cm LAV(MOD-bp): 34.7 ml LVAd ap4: 24.3 cm2 LAV(MOD-bp) Indexed: 18.5 ml/m2 LVLd ap4: 7.7 cm LAV(MOD-sp2): 36.1 ml EDV(MOD-sp4): 64.7 ml LAV(MOD-sp4): 32.6 ml EDV(sp4-el): 64.8 ml LVAs ap4: 13.6 cm2 LVLs ap4: 5.9 cm ESV(MOD-sp4): 26.0 ml ESV(sp4-el): 26.4 ml EF(MOD-sp4): 59.9 % EF(sp4-el): 59.3 % SV(MOD-sp4): 38.8 ml SV(sp4-el): 38.4 ml LA A4 area: 14.7 cm2 SI(MOD-sp4): 20.7 ml/m2 LA dimension(2D): 3.9 cm RA A4 area: 13.8 cm2 Time Measurements MV dec time: 0.26 sec Doppler Measurements Calculations MV E max vane: 67.7 cm/sec Med Peak E' Vane: 7.4 cm/sec MV V2 max: 115.9 cm/sec MV A max vane: 116.3 cm/sec E/E' med: 9.1 MV max P.4 mmHg MV E/A: 0.58 MV V2 mean: 58.0 cm/sec MV mean P.6 mmHg MV V2 VTI: 35.3 cm MVA(VTI): 2.3 cm2 MV dec slope: 271.9 cm/sec2 Ao V2 max: 120.8 cm/sec LV V1 max: 84.6 cm/sec Ao max P.8 mmHg LV V1 max P.1 mmHg Ao V2 mean: 78.1 cm/sec LV V1 mean P.2 mmHg Ao mean P.9 mmHg LV V1 mean: 83.4 cm/sec Ao V2 VTI: 26.9 cm LV V1 VTI: 27.1 cm AV (velocity ratio): 1.0 SONY(I,D): 3.1 cm2 SONY(V,D): 2.1 cm2 SV(LVOT): 82.6 ml PA V2 max: 118.9 cm/sec TR max vane: 281.9 cm/sec PA V2 mean: 73.8 cm/sec TR max P.8 mmHg ECHO/Echo Complete Interpretation Summary Mild concentric left ventricular hypertrophy. The LV ejection fraction is 60 %. Stage 1 diastolic dysfunction. Mild tricuspid valve insufficiency. Right ventricular systolic pressure estimated to be 37 mmHg. Mild (1+) pulmonic valve insufficiency. Ordering Physician: Srini Montano Referring Physician: Srini Montano Performed By: Nelly Gamble RCS 01/21/25 08 Date Srini Montano MD CC: Dr. Srini Motnano MD; Dr. Samson Ragsdale DO Date Dictated: 01/18/25941 Date Transcribed: 01/21/25803 Green House Manager: Signed [facility] 01-17-2025 [facility] Office Visit (FAMJessyWS ) -- ALEJO GAGE ([id number]) 1940 M Date Time Provider Department 01/17/25 11:40 AM LALA GODINEZ During your visit today, we recorded the following information about you: Pulse Blood pressure Weight 62/minute 116/58 72 kg Lala Godinez APRN.KEELER POLYGRAPH OPERATOR 01/17/2025 12:10 PM Signed Chief Complaint Patient presents with: ER F/U HPI Alejo Gage is a 84 year old male who presents here today for Above Complaints. Orthopnea and Dyspnea: - Orthopnea and increasing dyspnea over the past 7-10 days. - Seen in [facility] ER on 01/14; BNP, troponins, and chest X-ray were normal. - Seen by cardiology at [facility] on 01/15; isosorbide increased to 60 mg daily. - Echocardiogram and stress test ordered. - Referred to pulmonology by Dr. Shelby due to concern for COPD. - Alejo reports blurry vision and dysphagia since onset [...] without mention of hemorrhage 04/26/2017 EGD by [facility] 03/24/2022 [facility] can help [...] Xience stent to L circumflex EGD 04/26/2017 [facility] [address]. Nolan Triana EGD 05/23/2024 EGD TRANSORAL BIOPSY SINGLE/MULTIPLE 07/10/2007 PAST SURGICAL HISTORY OF 01/26/2008 stent placement ramus and prox ramus PAST SURGICAL HISTORY OF heart stents PROSTATECTOMY PERINEAL RADICAL 2000 Prostatectomy, radical- Dr. 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 Yousif Triana; next screening colonoscopy in 10yrs, [facility] UNLISTED DIAGNOSTIC GASTROENTEROLOGY PROCEDURE 06/06/2018 Family History FAMILY HISTORY Problem Relation Age of Onset Hypertension Father COPD Father Heart Mother Patient Allergies ALLERGIES Allergen Reactions Atorvastatin Unknown Crestor [Rosuvastat* Other: See Comments Muscle pain Glucosamine Unknown Nerve pain Motrin [Ibuprofen] Rash Pravastatin Other: See Comments muscle aches Orzgapd-Ewr-Slk Red* Other: See Comments myalgia Current Medications [...] once daily. (more content not included)... Normal [facility] Anion gap in Serum or Plasma Ordered By: Srini Montano on 01-15-2025 Anion gap [Moles/Vol] 12 mmol/L 5-15 [facility] BUN/creatinine ratioOrdered By: Srini Montano on 01-15-2025 Urea nitrogen/Creatinine [Mass ratio] 16.1 mg/mg 10-20 [facility] Bilirubin, totalOrdered By: Srini Montano on 01-15-2025 Bilirubin [Mass/Vol] 0.16 mg/dL 0.00-1.30 [facility] Calculated very low density lipoprotein (VLDL) cholesterol measurementOrdered By: Srini Montano on 01-15-2025 Calculated very low density lipoprotein (VLDL) cholesterol measurement 39 mg/dL - [facility] Carbon dioxide, total [Moles /volume] in Central venous bloodOrdered By: Srini Montano on 01-15-2025 CO2 [Moles/Vol] 28.6 mmol/L 21.0-32.0 [facility] Cardiology Visit Reporton Cardiology Visit Report [facility] [address] [place], [place] [address] OFFICE VISIT Date of Service: 01/15/25 MR#: [id number] Acct: [id number] Name: ALEJO GAGE Rep #: [id number] : 1940 Provider: Dr. Srini Montano MD Age/Sex: 84/M Location: [facility] [place] [facility] Status: Signed HPI HPI History of Present [...] air Intake Visit Reasons: Shortness of breath Poll Watcher Required: No Accompanied by: Is patient in pain?: No Allergies ibuprofen Allergy (Unknown, Unverified 01/15/25 13:36) NEEDS FOLLOW-UP pravastatin Allergy (Unknown, Verified 01/15/25 13:36) NEEDS FOLLOW-UP atorvastatin (From Lipitor) Allergy (Verified 01/15/25 13:36) Unknown glucosamine Allergy (Verified 01/15/25 13:36) Unknown rosuvastatin Adverse Reaction (Unknown, Verified 01/15/25 13:36) NEEDS FOLLOW-UP Moqdhnh-LJO-YkU Reductase Inhibitor Adverse Reaction (Unknown, Verified 01/15/25 [...] (single episode; no major injury) [facility] Medical History Abdominal aneurysm without mention of rupture Abdominal aortic aneurysm without rupture Acute gastritis without mention of hemorrhage Acute myocardial infarction Atherosclerosis of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[place] heart without angina pectoris Carotid artery stenosis Carotid atherosclerosis Chronic kidney disease, stage 3 CKD stage 3b, 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 Normal [facility] Chloride assayOrdered By: He Montano on 01-15-2025 Chloride [Moles/Vol] 101 mmol/L 98-108 [facility] Comprehensive Metabolic Prof ilon 01-15-2025 Albumin [Mass/Vol] 4.1 g/dL Normal 3.4-4.8 [facility] Comment on above: Performed By: #### L 500.4050, L503.7505, L500.4100 #### [facility] [address] [place], [address] Albumin/Globulin [Mass ratio] 1.4 {ratio} Normal 0.9-2.4 [facility] Comment on above: Performed By: #### L 500.4050, L503.7505, L500.4100 #### [facility] [address] [place], [address] ALK PHOS 119 U/L Normal 40-129 [facility] Comment on above: Performed By: #### L 500.4050, L503.7505, L500.4100 #### [facility] [address] [place], [address] ALT [Catalytic activity/Vol] 9 U/L Normal <=46 [facility] Comment on above: Performed By: #### L 500.4050, L503.7505, L500.4100 #### [facility] [address] [place], [address] AST [Catalytic activity/Vol] 15 U/L Normal <=37 [facility] Comment on above: Performed By: #### L 500.4050, L503.7505, L500.4100 #### [facility] [address] [place], [address] Bilirubin [Mass/Vol] 0.16 mg/dL Normal 0.00-1.30 [facility] Comment on above: Performed By: #### L 500.4050, L503.7505, L500.4100 #### [facility] [address] [place], [address] BUN/CRE 16.1 RATIO Normal 10-20 [facility] Comment on above: Performed By: #### L 500.4050, L503.7505, L500.4100 #### [facility] [address] [place], [address] Calcium [Mass/Vol] 9.7 mg/dL Normal 7.6-11.0 [facility] Comment on above: Performed By: #### L 500.4050, L503.7505, L500.4100 #### [facility] [address] [place], [address] Chloride [Moles/Vol] 101 mmol/L Normal 98-108 [facility] Comment on above: Performed By: #### L 500.4050, L503.7505, L500.4100 #### [facility] [address] [place], [address] CO2 [Moles/Vol] 28.6 mmol/L Normal 21.0-32.0 [facility] Comment on above: Performed By: #### L 500.4050, L503.7505, L500.4100 #### [facility] [address] [place], [address] Creatinine [Mass/Vol] 2.08 mg/dL High 0.70-1.20 [facility] Comment on above: Performed By: #### L 500.4050, L503.7505, L500.4100 #### [facility] [address] [place], [address] GAP 12 Normal 5-15 [facility] Comment on above: Performed By: #### L 500.4050, L503.7505, L500.4100 #### [facility] [address] [place], [address] GFR/1.73 sq M.predicted among non-blacks MDRD (S/P/Bld) [Vol rate/Area] 31 mL/min/{1.73_m2} Low >60 [facility] Comment on above: Result Comment: mL/m in/1.73m2 CKD-EPI Creatinine Equation (2020) Performed By: #### L 500.4050, L503.7505, L500.4100 #### [facility] [address] [place], [address] Globulin (S) [Mass/Vol] 3.0 g/dL Normal 2.2-4.2 [facility] Comment on above: Performed By: #### L 500.4050, L503.7505, L500.4100 #### [facility] [address] [place], [address] Glucose [Mass/Vol] 123 mg/dL High 70-99 [facility] Comment on above: Performed By: #### L 500.4050, L503.7505, L500.4100 #### [facility] [address] [place], [address] Potassium [Moles/Vol] 4.5 mmol/L Normal 3.3-5.1 [facility] Comment on above: Performed By: #### L 500.4050, L503.7505, L500.4100 #### [facility] [address] [place], [address] Sodium [Moles/Vol] 142 mmol/L Normal 133-145 [facility] Comment on above: Performed By: #### L 500.4050, L503.7505, L500.4100 #### [facility] [address] [place], [address] T PROT 7.1 g/dL Normal 5.9-8.4 [facility] Comment on above: Performed By: #### L 500.4050, L503.7505, L500.4100 #### [facility] [address] [place], [address] Urea nitrogen [Mass/Vol] 33 mg/dL High 4-19 [facility] Comment on above: Performed By: #### L 500.4050, L503.7505, L500.4100 #### [facility] [address] [place], [address] Glomerular filtration rate ( GFR) estimation/1.73 sq m using serum, plasma, or whole bOrdered By: Srini Montano on 01-15-2025 GFR/1.73 sq M.predicted among non-blacks MDRD (S/P/Bld) [Vol rate/Area] 31 mL/min/{1.73_m2} Low >60 [facility] Comment on above: mL/min/1.73m2 CKD-EP I Creatinine Equation (2020) L503.7505on 01-15-2025 Natriuretic peptide B (Bld) [Mass/Vol] 163 pg/mL Normal <=1800 [facility] Comment on above: Result Comment: Hear t Failure Unlikely: < 300 pg/mL Heart Failure Likely < 50 Years: > 450 pg/mL 50-75 Years: > 900 pg/mL >75 Years: > 1800 pg/mL Performed By: #### L 500.4050, L503.7505, L500.4100 #### [facility] [address] [place], [place], [id number] LDL calc ser/plasOrdered By: Srini Montano on 01-15-2025 Cholesterol in LDL [Mass/Vol] 131 mg/dL [facility] Comment on above: Byaklodshq=972-116 m g/dL & Higher Nqmz=300 mg/dL or greater Laboratory - Chemistry and C hemistry - challengeOrdered By: Srini Montano on 01-15-2025 AST [Catalytic activity/Vol] 15 U/L <38 [facility] Lipid Profileon 01-15-2025 CHOL:HDL 5.99 Normal [facility] Comment on above: Performed By: #### L 500.4050, L503.7505, L500.4100 #### [facility] [address] [place], [address] Cholesterol [Mass/Vol] 205 mg/dL High <=200 [facility] Comment on above: Result Comment: Chol esterol level, Desirable <200 mg/dL Borderline high cholesterol 200-239 mg/dL High cholesterol >=240 mg/dL Recommendations of the NCEP Adult Treatment Panel for the following risk-cutoff thresholds for the [place] population. Performed By: #### L 500.4050, L503.7505, L500.4100 #### [facility] [address] [place], [address] Cholesterol in HDL [Mass/Vol] 34 mg/dL Low [facility] Comment on above: Result Comment: Ryann onal Cholesterol Education Program (NCEP) guidelines: <40 mg/dL: Low HDL-cholesterol (major risk factor for CHD) >= 60 mg/dL: High HDL-cholesterol (negative risk factor for CHD) HDL-cholesterol is affected by a number of factors, e.g. smoking, exercise, hormones, sex and age. Performed By: #### L 500.4050, L503.7505, L500.4100 #### [facility] [address] [place], [address] Cholesterol in LDL [Mass/Vol] 131 mg/dL Normal [facility] Comment on above: Result Comment: Bord coigzm=211-729 mg/dL Higher Vdjw=541 mg/dL or greater Performed By: #### L 500.4050, L503.7505, L500.4100 #### [facility] [address] [place], [address] Cholesterol in VLDL [Mass/Vol] 39 mg/dL Normal 5-40 [facility] Comment on above: Performed By: #### L 500.4050, L503.7505, L500.4100 #### [facility] [address] [place], [address] Triglyceride [Mass/Vol] 197 mg/dL Normal [facility] Comment on above: Result Comment: The drugs N-Acetylcysteine and Metamizole may falsely depress this assay. Normal range: <150 mg/dL Borderline High: 150-199 mg/dL High: 200-499 mg/dL Very High: >500 mg/dL Performed By: #### L 500.4050, L503.7505, L500.4100 #### [facility] [address] [place], [place], [address] Natriuretic peptide.B prohor natanael N-Terminal [Mass/volume] in Serum or PlasmaOrdered By: Srini Montano on 01-15-2025 Natriuretic peptide.B prohormone N-Terminal [Mass/Vol] 163 pg/mL <1800 [facility] Comment on above: Heart Failure Unlike ly: < 300 pg/mLHeart Failure Likely< 50 Years: > 450 pg/mL50-75 Years: > 900 pg/mL>75 Years: > 1800 pg/mL Potassium measurement (mass/ volume)Ordered By: Srini Montano on 01-15-2025 Potassium (Unsp spec) [Mass/Vol] 4.5 mmol/L 3.3-5.1 [facility] Screening total cholesterol/ high density lipoprotein (HDL) cholesterol ratioOrdered By: Srini Montano on 01-15-2025 Cholesterol.total/Chol esterol in HDL [Mass ratio] 5.99 {ratio} [facility] Serum creatinine measurement (mass/volume)Ordered By: Srini Montano on 01-15-2025 Creatinine [Mass/Vol] 2.08 mg/dL High 0.70-1.20 [facility] Serum globulin measurementOr dered By: Srini Montano on 01-15-2025 Globulin (S) [Mass/Vol] 3.0 g/dL 2.2-4.2 [facility] Serum glucose measurement (m ass/volume)Ordered By: Srini Montano on 01-15-2025 Glucose [Mass/Vol] 123 mg/dL High 70-99 [facility] Serum or plasma alanine regalado otransferase (ALT) measurementOrdered By: Srini Montano on 01-15-2025 ALT [Catalytic activity/Vol] 9 U/L <47 [facility] Serum or plasma albumin waldemar urement (mass/volume)Ordered By: Srini Montano on 01-15-2025 Albumin [Mass/Vol] 4.1 g/dL 3.4-4.8 [facility] Serum or plasma albumin/glob ulin mass ratioOrdered By: Srini Montano on 01-15-2025 Albumin/Globulin [Mass ratio] 1.4 {ratio} 0.9-2.4 [facility] Serum or plasma alkaline garret sphatase measurementOrdered By: Srini Montano on 01-15-2025 ALP [Catalytic activity/Vol] 119 U/L 40-129 [facility] Serum or plasma calcium waldemar urement (mass/volume)Ordered By: Srini Montano on 01-15-2025 Calcium [Mass/Vol] 9.7 mg/dL 7.6-11.0 [facility] Serum or plasma cholesterol in HDL measurement (mass/volume)Ordered By: Srini Montano on 01-15-2025 Cholesterol in HDL [Mass/Vol] 34 mg/dL Low >40 [facility] Comment on above: National Cholesterol Education Program (NCEP) guidelines:<40 mg/dL: Low HDL-cholesterol (major risk factor for CHD)>= 60 mg/dL: High HDL-cholesterol (negative risk factor for CHD)HDL-cholesterol is affected by a number of factors, e.g. smoking, exercise, hormones, sex and age. Serum or plasma cholesterol measurement (mass/volume)Ordered By: Srini Montano on 01-15-2025 Cholesterol [Mass/Vol] 205 mg/dL High <201 [facility] Comment on above: Cholesterol level, D esirable <200 mg/dLBorderline high cholesterol 200-239 mg/dLHigh cholesterol >=240 mg/dLRecommendations of the NCEP Adult Treatment Panel for the following risk-cutoff thresholds for the [place] population. Serum or plasma urea nitroge n measurement (mass/volume)Ordered By: Srini Montano on 01-15-2025 Urea nitrogen [Mass/Vol] 33 mg/dL High 4-19 [facility] Sodium levelOrdered By: Atif Montano on 01-15-2025 Sodium [Moles/Vol] 142 mmol/L 133-145 [facility] Total proteinOrdered By: John Montano on 01-15-2025 Protein [Mass/Vol] 7.1 g/dL 5.9-8.4 [facility] Triglycerides measurementOrd ered By: Srini Montano on 01-15-2025 Triglyceride [Mass/Vol] 197 mg/dL <199 [facility] Comment on above: The drugs N-Acetylcy steine and Metamizole may falsely depress this assay. Normal range: <150 mg/dLBorderline High: 150-199 mg/dLHigh: 200-499 mg/dLVery High: >500 mg/dL Basic Metabolic Profile (BMP )on 01-14-2025 BUN/CRE 17.7 RATIO Normal 10-20 [facility] Comment on above: Performed By: #### L 100.0100, L501.4021, L500.2500, L503.7505 #### [facility] [address] [place], [address] Calcium [Mass/Vol] 9.3 mg/dL Normal 7.6-11.0 [facility] Comment on above: Performed By: #### L 100.0100, L501.4021, L500.2500, L503.7505 #### [facility] [address] [place], [address] Chloride [Moles/Vol] 98 mmol/L Normal 98-108 [facility] Comment on above: Performed By: #### L 100.0100, L501.4021, L500.2500, L503.7505 #### [facility] [address] [place], [address] CO2 [Moles/Vol] 26.5 mmol/L Normal 21.0-32.0 [facility] Comment on above: Performed By: #### L 100.0100, L501.4021, L500.2500, L503.7505 #### [facility] [address] [place], [address] Creatinine [Mass/Vol] 2.35 mg/dL High 0.70-1.20 [facility] Comment on above: Performed By: #### L 100.0100, L501.4021, L500.2500, L503.7505 #### [facility] [address] [place], [address] ECRCL 23.04 ml/min Low 50-250 [facility] Comment on above: Performed By: #### L 100.0100, L501.4021, L500.2500, L503.7505 #### [facility] [address] [place], [address] GAP 14 Normal 5-15 [facility] Comment on above: Performed By: #### L 100.0100, L501.4021, L500.2500, L503.7505 #### [facility] [address] [place], [address] GFR/1.73 sq M.predicted among non-blacks MDRD (S/P/Bld) [Vol rate/Area] 27 mL/min/{1.73_m2} Low >60 [facility] Comment on above: Result Comment: mL/m in/1.73m2 CKD-EPI Creatinine Equation (2020) Performed By: #### L 100.0100, L501.4021, L500.2500, L503.7505 #### [facility] [address] [place], [address] Glucose [Mass/Vol] 167 mg/dL High 70-99 [facility] Comment on above: Performed By: #### L 100.0100, L501.4021, L500.2500, L503.7505 #### [facility] [address] [place], [address] Potassium [Moles/Vol] 4.4 mmol/L Normal 3.3-5.1 [facility] Comment on above: Result Comment: Hemo lysis present, Results??could be affected. ?? Performed By: #### L 100.0100, L501.4021, L500.2500, L503.7505 #### [facility] [address] [place], [address] Sodium [Moles/Vol] 139 mmol/L Normal 133-145 [facility] Comment on above: Performed By: #### L 100.0100, L501.4021, L500.2500, L503.7505 #### [facility] [address] [place], [address] Urea nitrogen [Mass/Vol] 42 mg/dL High 4-19 [facility] Comment on above: Performed By: #### L 100.0100, L501.4021, L500.2500, L503.7505 #### [facility] [address] [place], [address] L499.0042on 01-14-2025 Trop T High Sen 52 ng/L High <=22 [facility] Comment on above: Result Comment: Crit ical Result(s) Called at:0151 by: CARMELITA OWENS??Results read back by same. Performed By: #### L 499.0042 #### [facility] [address] [place], [address] L501.4021on 01-14-2025 Trop T High Sen 53 ng/L High <=22 [facility] Comment on above: Result Comment: Crit ical Result(s) Called at: 0011 by: CARMELITA OWENS??Results read back by same. Performed By: #### L 100.0100, L501.4021, L500.2500, L503.7505 #### [facility] [address] [place], [address] L503.7505on 01-14-2025 Natriuretic peptide B (Bld) [Mass/Vol] 235 pg/mL Normal <=1800 [facility] Comment on above: Result Comment: Hear t Failure Unlikely: < 300 pg/mL Heart Failure Likely < 50 Years: > 450 pg/mL 50-75 Years: > 900 pg/mL >75 Years: > 1800 pg/mL Performed By: #### L 100.0100, L501.4021, L500.2500, L503.7505 #### [facility] [address] [facility] [place], [address] Troponin T.cardiac [Mass/vol ume] in Serum or Plasma by High sensitivity methodOrdered By: Adam Mon on 01-14-2025 Troponin T.cardiac High sensitivity method [Mass/Vol] 52 ng/L High <22 [facility] Comment on above: Critical Result(s) C alled at:0151 by: CARMELITA RUBIO TO ANDERSON OWENS Results read back by same. 12 Lead EKGon 01-13-2025 12 Lead EKG [facility] [address] [place] [address] 12 Lead EKG 01/13/25 2227 MR#: [id number] Acct: [id number] Name: ALEJO GAGE Rep #: [id number] : 1940 84 From: Wojciech López MD [...] Abnormal ECG Confirmed by WOJCIECH LÓPEZ MD ([id number]), pictures editor JOSE MERAZ ([id number]) on 01/15/2025 7:38:04 AM Referred By: RUTH ANN Confirmed By: WOJCIECH LÓPEZ MD 01/15/25 0738 Date Wojciech López MD CC: Dr. Adam Mon MD; Dr. Samson Ragsdale DO Signed Normal [facility] Absolute lymphocyte countOrd ered By: Adam Mon on 01-13-2025 Lymphocytes Auto (Unsp spec) [#/Vol] 1.99 10*3/uL 0.83-4.51 [facility] Absolute neutrophil countOrd ered By: Adam Mon on 01-13-2025 Neutrophils (Bld) [#/Vol] 7.5 10*3/uL 2.0-7.7 [facility] Anion gap in Serum or Plasma Ordered By: Adam Mon on 01-13-2025 Anion gap [Moles/Vol] 14 mmol/L 12-13 [facility] Automated lymphocyte count a s percentage of total leukocytesOrdered By: Adam Mon on 01-13-2025 Lymphocytes/100 WBC Auto (Unsp spec) 18.6 % Low - [facility] BUN/creatinine ratioOrdered By: Adam Mon on 01-13-2025 Urea nitrogen/Creatinine [Mass ratio] 17.7 mg/mg 05-20 [facility] Basophil percentageOrdered B y: Adam Mon on 01-13-2025 Basophils/100 WBC (Bld) 0.4 % 0-1 [facility] CBC W/Diff, Automatedon 12-30 Absolute Lymph 1.99 X10 3/uL Normal 0.83-4.51 [facility] Comment on above: Performed By: #### L 100.0100, L501.4021, L500.2500, L503.7505 #### [facility] [address] [place], [address] Absolute Neut 7.5 X10 3/uL Normal 2.0-7.7 [facility] Comment on above: Performed By: #### L 100.0100, L501.4021, L500.2500, L503.7505 #### [facility] [address] [place], [address] Basophils/100 WBC (Bld) 0.4 % Normal 0-1 [facility] Comment on above: Performed By: #### L 100.0100, L501.4021, L500.2500, L503.7505 #### [facility] [address] [place], [address] Eosinophils/100 WBC (Bld) 2.5 % Normal 0-5 [facility] Comment on above: Performed By: #### L 100.0100, L501.4021, L500.2500, L503.7505 #### [facility] [address] [place], [address] Erythrocyte distribution width (RBC) [Ratio] 13.9 % Normal 11.6-14.6 [facility] Comment on above: Performed By: #### L 100.0100, L501.4021, L500.2500, L503.7505 #### [facility] [address] [place], [address] Hematocrit (Bld) [Volume fraction] 36.9 % Low 40-54 [facility] Comment on above: Performed By: #### L 100.0100, L501.4021, L500.2500, L503.7505 #### [facility] [address] [place], [address] Hemoglobin (Bld) [Mass/Vol] 11.8 g/dL Low 13.0-16.5 [facility] Comment on above: Performed By: #### L 100.0100, L501.4021, L500.2500, L503.7505 #### [facility] [address] [place], [address] IG% 0.300 Normal 0.0-0.9 [facility] Comment on above: Result Comment: IG% - Immature Granulocytes (promyelocytes, myelocytes and metamyelocytes) > 1% indicates that a LEFT SHIFT is Present. Performed By: #### L 100.0100, L501.4021, L500.2500, L503.7505 #### [facility] [address] [place], [address] Lymphocytes/100 WBC (Bld) 18.6 % Low 19-41 [facility] Comment on above: Performed By: #### L 100.0100, L501.4021, L500.2500, L503.7505 #### [facility] [address] [place], [address] MCH (RBC) [Entitic mass] 27.7 pg Normal 27.0-32.0 [facility] Comment on above: Performed By: #### L 100.0100, L501.4021, L500.2500, L503.7505 #### [facility] [address] [place], [address] MCHC (RBC) [Mass/Vol] 32.0 g/dL Normal 32-36 [facility] Comment on above: Performed By: #### L 100.0100, L501.4021, L500.2500, L503.7505 #### [facility] [address] [place], [address] MCV (RBC) [Entitic vol] 86.6 fL Normal 80-94 [facility] Comment on above: Performed By: #### L 100.0100, L501.4021, L500.2500, L503.7505 #### [facility] [address] [place], [address] Monocytes/100 WBC (Bld) 8.2 % Normal 0-10 [facility] Comment on above: Performed By: #### L 100.0100, L501.4021, L500.2500, L503.7505 #### [facility] [address] [place], [address] Neutrophils/100 WBC (Bld) 70.0 % Normal 47-70 [facility] Comment on above: Performed By: #### L 100.0100, L501.4021, L500.2500, L503.7505 #### [facility] [address] [place], [address] Nucleated RBC (Bld) [#/Vol] 0 10*3/uL Normal 0-5 [facility] Comment on above: Performed By: #### L 100.0100, L501.4021, L500.2500, L503.7505 #### [facility] [address] [place], [address] Platelet mean volume (Bld) [Entitic vol] 10.4 fL Normal 6.2-12.0 [facility] Comment on above: Performed By: #### L 100.0100, L501.4021, L500.2500, L503.7505 #### [facility] [address] [place], [address] Platelets (Bld) [#/Vol] 326 10*3/uL Normal 150-450 [facility] Comment on above: Performed By: #### L 100.0100, L501.4021, L500.2500, L503.7505 #### [facility] [address] [place], [address] RBC (Bld) [#/Vol] 4.26 10*6/uL Low 4.6-6.2 [facility] Comment on above: Performed By: #### L 100.0100, L501.4021, L500.2500, L503.7505 #### [facility] [address] [place], [address] RDW SD 44.2 fl High 35.1-43.9 [facility] Comment on above: Performed By: #### L 100.0100, L501.4021, L500.2500, L503.7505 #### [facility] [address] [place], [address] WBC (Bld) [#/Vol] 10.7 10*3/uL Normal 4.4-11.0 [facility] Comment on above: Performed By: #### L 100.0100, L501.4021, L500.2500, L503.7505 #### [facility] [address] [facility] [place], [address] Carbon dioxide, total [Moles /volume] in Central venous bloodOrdered By: Adam Mon on 01-13-2025 CO2 [Moles/Vol] 26.5 mmol/L 21.0-32.0 [facility] Chest PA and Lateralon 01-13 Chest PA and Lateral [facility] Imaging Services [address] [address] Chest PA and Lateral MR#: [id number] Acct: [id number] Name: ALEJO GAGE Rep #: [id number] : 1940 M 84 From: Melchor Delarosa PCP: Dr. Samson Ragsdale DO Status: [facility] ER Study: Chest PA and Lateral Date of Exam: 01/13/25 Exam# [id number] Ordering Dr: Adam Mon MD PROCEDURE: CHEST PA AND LATERAL 01/13/2025 REASON FOR EXAM: CHEST PAIN TECHNIQUE: CHEST PA AND LATERAL COMPARISON: none FINDINGS: Median sternotomy wires. Aortic arch calcification. Left base subsegmental atelectasis. No focal consolidations. No pleural effusion or pneumothorax. RAD/Chest PA and Lateral IMPRESSION: No focal consolidations. No pleural effusion or pneumothorax. Left base subsegmental atelectasis. Reading Location: [id number] CC: Dr. Adam Mon MD; Dr. Samson Ragsdale DO Green House Manager: Signed Normal [facility] Chloride assayOrdered By: Pepe Mon on 01-13-2025 Chloride [Moles/Vol] 98 mmol/L 98-108 [facility] Emergency Department Summary on 01-13-2025 Emergency Department Summary [facility] Medical Records Department [address] [place] [address] Emergency Department Summary 01/13/25 MR#: [id number] Acct: [id number] Name: ALEJO GAGE Rep #: [id number] : 1940 84 From: Adam Mon MD PCP: Dr. Samson Ragsdale, DO Status:REG ER Location: ED HPI History of Present Illness Chief Complaint: Shortness of Breath Informant: patient Onset/Context/Timing Onset: Weeks (The last week.) Context: gradual Timing: Intermittent Quality: Positive for Orthopnea Current Severity: Mild Maximum Severity: Mild Worsened by: Lying flat Relieved by: other (Upright it resolves.) Associated Symptoms Negative for cough Chest Pain: Positive for None Narrative Narrative: 84-year-old male history of [place], hypertension, diabetes, ischemic cardiomyopathy and prior prostate [...] vascular disease) Atherosclerosis of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[place] heart without angina pectoris Complete heart block ST elevation [place] (STEMI) Chronic kidney disease, stage 3 Hyperlipidemia [...] Respiratory/Chest: Reports (more content not included)... Normal [facility] Eosinophil percentageOrdered By: Adam Mon on 01-13-2025 Eosinophils/100 WBC (Bld) 2.5 % 0-5 [facility] Erythrocyte distribution wid th ratioOrdered By: Adam Mon on 01-13-2025 Erythrocyte distribution width (RBC) [Ratio] 13.9 % 11.6-14.6 [facility] Erythrocyte distribution wid th standard deviationOrdered By: Adam Mon on 01-13-2025 Erythrocyte distribution width (RBC) [Ratio] 44.2 fl High 35.1-43.9 [facility] Glomerular filtration rate ( GFR) estimation/1.73 sq m using serum, plasma, or whole bOrdered By: Adam Mon on 01-13-2025 GFR/1.73 sq M.predicted among non-blacks MDRD (S/P/Bld) [Vol rate/Area] 27 mL/min/{1.73_m2} Low >60 [facility] Comment on above: mL/min/1.73m2 CKD-EP I Creatinine Equation (2020) Hematocrit Auto (Bld) [Volum e fraction]Ordered By: Adam Mon on 01-13-2025 Hematocrit (Bld) [Volume fraction] 36.9 % Low 40-54 [facility] Hemoglobin measurementOrdere d By: Adam Mon on 01-13-2025 Hemoglobin (Bld) [Mass/Vol] 11.8 g/dL Low 13.0-16.5 [facility] Immature granulocytes/100 WB C Auto (Bld)Ordered By: Adam Mon on 01-13-2025 Immature granulocytes/100 WBC (Bld) 0.300 % 0.0-0.9 [facility] Comment on above: IG% - Immature Granu locytes (promyelocytes, myelocytes and metamyelocytes) > 1% indicates that a LEFT SHIFT is Present. MCV (mean corpuscular volume ) determinationOrdered By: Adam Mon on 01-13-2025 MCV (RBC) [Entitic vol] 86.6 fL 80-94 [facility] Mean corpuscular hemoglobin (MCH) determinationOrdered By: Adam Mon on 01-13-2025 MCH (RBC) [Entitic mass] 27.7 pg 27.0-32.0 [facility] Mean corpuscular hemoglobin concentration (MCHC) determinationOrdered By: Adam Mon on 01-13-2025 MCHC (RBC) [Mass/Vol] 32.0 g/dL 32-36 [facility] Mean platelet volume determi nationOrdered By: Adam Mon on 01-13-2025 Platelet mean volume (Bld) [Entitic vol] 10.4 fL 6.2-12.0 [facility] Monocyte percentageOrdered B y: Adam Mon on 01-13-2025 Monocytes/100 WBC (Bld) 8.2 % 0-10 [facility] Natriuretic peptide.B prohor natanael N-Terminal [Mass/volume] in Serum or PlasmaOrdered By: Adam Mon on 01-13-2025 Natriuretic peptide.B prohormone N-Terminal [Mass/Vol] 235 pg/mL <1800 [facility] Comment on above: Heart Failure Unlike ly: < 300 pg/mLHeart Failure Likely< 50 Years: > 450 pg/mL50-75 Years: > 900 pg/mL>75 Years: > 1800 pg/mL Neutrophil percentageOrdered By: Adam Mon on 01-13-2025 Neutrophils/100 WBC (Bld) 70.0 % 47-70 [facility] Nucleated red blood cell per centageOrdered By: Adam Mon on 01-13-2025 Nucleated RBC/100 WBC (Bld) [Ratio] 0 % 0-5 [facility] Platelet countOrdered By: Pepe Mon on 01-13-2025 Platelets (Bld) [#/Vol] 326 10*3/uL 150-450 [facility] Potassium measurement (mass/ volume)Ordered By: Adam Mon on 01-13-2025 Potassium (Unsp spec) [Mass/Vol] 4.4 mmol/L 3.3-5.1 [facility] Comment on above: Hemolysis present, R esults could be affected. RBC Auto (Bld) [#/Vol]Ordere d By: Adam Mon on 01-13-2025 RBC (Bld) [#/Vol] 4.26 10*6/uL Low 4.6-6.2 [facility] Serum creatinine measurement (mass/volume)Ordered By: Adam Mon on 01-13-2025 Creatinine [Mass/Vol] 2.35 mg/dL High 0.70-1.20 [facility] Serum glucose measurement (m ass/volume)Ordered By: Adam Mon on 01-13-2025 Glucose [Mass/Vol] 167 mg/dL High 70-99 [facility] Serum or plasma calcium waldemar urement (mass/volume)Ordered By: Adam Mon on 01-13-2025 Calcium [Mass/Vol] 9.3 mg/dL 7.6-11.0 [facility] Serum or plasma urea nitroge n measurement (mass/volume)Ordered By: Adam Mon on 01-13-2025 Urea nitrogen [Mass/Vol] 42 mg/dL High 4-19 [facility] Sodium levelOrdered By: Adam Mon on 01-13-2025 Sodium [Moles/Vol] 139 mmol/L 133-145 [facility] Troponin T.cardiac [Mass/vol ume] in Serum or Plasma by High sensitivity methodOrdered By: Adam Mon on 01-13-2025 Troponin T.cardiac High sensitivity method [Mass/Vol] 53 ng/L High <22 [facility] Comment on above: Critical Result(s) C alled at: 0011 by: CARMELITA RUBIO TO ANDERSON OWENS Results read back by same. White blood cell (WBC) count Ordered By: Adam Mon on 01-13-2025 WBC (Bld) [#/Vol] 10.7 10*3/uL 4.4-11.0 [facility] CNOVon 01-09-2025 CNOV Office Visit (UCWSTR ) -- ALEJO GAGE ([id number]) 1940 M Date Time Provider Department 01/09/25 2:15 PM KHLOE IBARRA [facility] During your visit today, we recorded the following information about you: Temperature Pulse Respiration Blood pressure 97.2 degrees 64/minute 18/minute 132/72 Weight 74.8 kg Khloe Ibarra APRN.[facility] 01/09/2025 4:53 PM Signed [facility] Subjective Alejo Gage is a 84 year old male. 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 Mild lower leg swelling but denies that [...] without mention of hemorrhage 04/26/2017 EGD by [facility] Advance care planning 03/24/2022 [facility] can help [...] Xience stent to L circumflex EGD 04/26/2017 [facility] Dr. Nolan Triana EGD 05/23/2024 EGD TRANSORAL BIOPSY SINGLE/MULTIPLE 07/10/2007 PAST SURGICAL HISTORY OF 01/26/2008 stent placement ramus and prox ramus PAST SURGICAL HISTORY OF heart stents PROSTATECTOMY PERINEAL RADICAL 2000 Prostatectomy, radical- Dr. 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 Yousif Triana; next screening colonoscopy in 10yrs, [facility] UNLISTED DIAGNOSTIC GASTROENTEROLOGY PROCEDURE 06/06/2018 ALLERGIES Atorvastatin, Crestor [Rosuvastatin Calcium], Glucosamine, Motrin [Ibuprofen], Pravastatin, and Zysvlow-Cma-Kyi Reductase Inhibitors MEDICATIONS zinc sulfate (ZINC-15 ORAL) [...] 10 Units subcutaneously daily at bedtime. Insulin Huntley, Disposable, (BD ULTRA-FINE BENNY PEN NEEDLE) 32 [...] once daily. (more content not included)... Normal [facility] XR CHEST 2V FRONTAL/LATon XR CHEST 2V [...] post median sternotomy. IMPRESSION: Left basilar atelectasis/scarring. Green House Manager: JASON Transcribe Date/Time: Jan 09 2025 2:43P Dictated by : ZOE AKBAR MD This examination was interpreted and the report reviewed and electronically signed by: ZOE AKBAR MD on Jan 09 2025 2:46PM EST [id number] Normal [facility] XR Chest PA and Lateralon IMPRESSION: Left basilar atelectasis/scarring. Green House Manager: IRVINGB Transcribe Date/Time: Jan 09 2025 2:43P Dictated by : ZOE AKBAR MD This examination was interpreted and the report reviewed and electronically signed by: ZOE AKBAR MD on Jan 09 2025 2:46PM [facility] DIVISION OF RADIOLOGY * * *Final Report* [...] post median sternotomy. DIVISION OF RADIOLOGY Provider, [facility] - 01/09/2025 * * *Final Report* * [...] median sternotomy. IMPRESSION IMPRESSION: Left basilar atelectasis/scarring. Green House Manager: JASON Transcribe Date/Time: Jan 09 2025 2:43P Dictated by : ZOE AKBAR MD This examination was interpreted and the report reviewed and electronically signed by: ZOE AKBAR MD on Jan 09 2025 2:46PM EST [facility] Radiology Study observation (narrative) [facility] XR Chest PA and LateralOrder ed By: Ccf Provider on 01-09-2025 [facility] CNOVon 11-26-2024 CNOV Office Visit (INTMWS ) -- FRANKYALEJO Ortega ([id number]) 1940 M Date Time Provider Department 11/26/24 3:00 PM THEODORA HERNANDEZ [facility] During your visit today, we recorded the following information about you: Pulse Blood pressure Weight 62/minute 120/60 76.7 kg Theodora Hernandez, LACE ROLLER.KEELER POLYGRAPH OPERATOR 11/26/2024 3:27 PM Addendum We discussed your [...] heat or ice on the affected area. Qyce-tkn-chnnsez options like Icy Hot or Biofreeze may [...] prednisone and hydrocodone have been sent to [facility] in [place]. Please let us know if you have any questions or concerns. Theodora Hernandez, LACE ROLLER.[facility] 11/26/2024 3:43 PM Signed CC: Patient presents with: Pain: in right shoulder for about 6 weeks denies any injury HPI Recording using SureVisit software for draft documentation of the visit was discussed with the patient/authorized provider service representative; all questions welcomed and answered. Patient/authorized provider service representative agreed to proceed Alejo is a 84-year-old male with a history of diabetes mellitus, presenting with bilateral shoulder pain, predominantly on the right side. Alejo reports a 6-8 week history of bilateral [...] any previous episodes of similar shoulder pain. Alejo reports occasional grinding sensations in the shoulders [...] hemorrhoid 04/26/2017 (more content not included)... Normal [facility] XR SHLDR >/=3V AP/MACY AP/OTH R LTon [...] Mild degenerative changes. No acute osseous abnormality. Green House Manager: PSCB Transcribe Date/Time: Nov 28 2024 7:38A Dictated by : WILLEM GUERRERO MD This examination was interpreted and the report reviewed and electronically signed by: WILLEM GUERRERO MD on Nov 28 2024 7:39AM EST [id number] Normal [facility] XR SHLDR >/=3V AP/MACY AP/OTH R RTon [...] Mild degenerative changes. No acute osseous abnormality. Green House Manager: JASON Transcribe Date/Time: Nov 28 2024 7:38A Dictated by : WILLEM GUERRERO MD This examination was interpreted and the report reviewed and electronically signed by: WILLEM GUERRERO MD on Nov 28 2024 7:39AM EST [id number] Normal [facility] XR THORACIC 3V AP/LAT/SWIMME RSon 11-26-2024 XR [...] endplate osteophytes IMPRESSION: 1. Moderate thoracic spondylosis Green House Manager: JASON Transcribe Date/Time: Nov 29 2024 6:55A Dictated by : JESUS NAVA MD This examination was interpreted and the report reviewed and electronically signed by: JESUS NAVA MD on Nov 29 2024 6:56AM EST [id number] Normal [facility] CNOVon 09-26-2024 CNOV Office Visit (FAMPWS ) -- ALEJO GAGE ([id number]) 1940 M Date Time Provider Department 09/26/24 2:20 PM [facility] During your visit today, we recorded the following information about you: Temperature Pulse Respiration Blood pressure 97 degrees 64/minute 20/minute 138/70 Weight 74.8 kg Samson Ragsdale DO 09/26/2024 4:41 PM Signed Patient presents with: Yearly Exam HPI: Alejo Gage is a 84 year old male [...] with average BP's in the 100-150/60-80s range. Alejo gets sporadic irregular exercise. 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 09/2015 4.15 cm Acute gastritis without mention of hemorrhage 04/26/2017 EGD by [facility] Advance care planning 03/24/2022 [facility] can help [...] unspecified site Internal hemorrhoid 04/26/2017 colonoscopy by [facility] Iron deficiency anemia Malignant neoplasm of prostate [...] Xience stent to L circumflex EGD 04/26/2017 [facility] Dr. Nolan Triana EGD 05/23/2024 EGD TRANSORAL BIOPSY SINGLE/MULTIPLE 07/10/2007 PAST SURGICAL HISTORY OF 01/26/2008 stent placement ramus and prox ramus PAST SURGICAL HISTORY OF heart stents PROSTATECTOMY PERINEAL RADICAL 2000 Prostatectomy, radical- Dr. 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 Yousif Triana; next screening colonoscopy in 10yrs, [facility] UNLISTED DIAGNOSTIC GASTROENTEROLOGY PROCEDURE 06/06/2018 Social History Tobacco Use Smoking status: Former Current packs/day: 2.00 Average packs/day: 2.0 packs/day for 20.0 years (40.0 ttl pk-yrs) Types: Cigarette (more content not included)... Normal [facility] CBC W Auto Differential pane l (Bld)on 09-17-2024 Basophils (Bld) [#/Vol] 0.04 10*3/uL [facility] Basophils/100 WBC (Bld) 0.3 % [facility] Differential cell count method Nom (Bld) Auto [facility] Eosinophils (Bld) [#/Vol] 0.11 10*3/uL [facility] Eosinophils/100 WBC (Bld) 0.9 % [facility] Erythrocyte distribution width (RBC) [Ratio] 15.9 % High 11.5 - 15.0 % [facility] Hematocrit (Bld) [Volume fraction] 42 % 39.0 - 51.0 % [facility] Hemoglobin (Bld) [Mass/Vol] 13.2 g/dL 13.0 - 17.0 g/dL [facility] Immature granulocytes (Bld) [#/Vol] 0.05 10*3/uL [facility] Immature granulocytes/100 WBC (Bld) 0.4 % [facility] Interpretation and review of laboratory results Abnormal [facility] Lymphocytes (Bld) [#/Vol] 2.07 10*3/uL [facility] Lymphocytes/100 WBC (Bld) 17.7 % [facility] MCH (RBC) [Entitic mass] 28.1 pg 26.0 - 34.0 pg [facility] MCHC (RBC) [Mass/Vol] 31.4 g/dL 30.5 - 36.0 g/dL [facility] MCV (RBC) [Entitic vol] 89.4 fL 80.0 - 100.0 fL [facility] Monocytes (Bld) [#/Vol] 0.89 10*3/uL High [facility] Monocytes/100 WBC (Bld) 7.6 % [facility] Neutrophils (Bld) [#/Vol] 8.53 10*3/uL High [facility] Neutrophils/100 WBC (Bld) 73.1 % [facility] Nucleated RBC (Bld) [#/Vol] [facility] Nucleated RBC/100 WBC (Bld) [Ratio] 0 % /100 WBC [facility] Platelet mean volume (Bld) [Entitic vol] 9.9 fL 9.0 - 12.7 fL [facility] Platelets (Bld) [#/Vol] 308 10*3/uL [facility] RBC (Bld) [#/Vol] 4.7 10*6/uL 4.20 - 6.0 0 m/uL [facility] WBC (Bld) [#/Vol] 11.69 10*3/uL High [facility] Basophils (Bld) [#/Vol] 0.04 10*3/uL Normal <0.[address] [facility] Comment on above: Order Comment: Speci men Type: BLOOD SPECIMENOrdering Facility: [facility] Address: [address] [place] [address] Performed By: #### 5 7021-8 ####[facility] LABCLIA [id number] [address] [place] Basophils/100 WBC (Bld) 0.3 % Normal [facility] Comment on above: Order Comment: Speci men Type: BLOOD SPECIMENOrdering Facility: [facility] Address: [address] [place] [address] Performed By: #### 5 7021-8 ####[facility] LABCLIA [id number] [place] [address] [place] Differential cell count method Nom (Bld) Auto Normal [facility] Comment on above: Order Comment: Speci men Type: BLOOD SPECIMENOrdering Facility: [facility] Address: [address] [place] [address] Performed By: #### 5 7021-8 ####[facility] LABCLIA [id number] [place] [address] [place] Eosinophils (Bld) [#/Vol] 0.11 10*3/uL Normal <0.[address] [facility] Comment on above: Order Comment: Speci men Type: BLOOD SPECIMENOrdering Facility: [facility] Address: [address] [place] [address] Performed By: #### 5 7021-8 ####[facility] LABCLIA [id number] [place] [address] [place] Eosinophils/100 WBC (Bld) 0.9 % Normal [facility] Comment on above: Order Comment: Speci men Type: BLOOD SPECIMENOrdering Facility: [facility] Address: [address] [place] [address] Performed By: #### 5 7021-8 ####[facility] LABCLIA [id number] [place] [address] [place] Erythrocyte distribution width (RBC) [Ratio] 15.9 % High 11.5-15.[address] [facility] Comment on above: Order Comment: Speci men Type: BLOOD SPECIMENOrdering Facility: [facility] Address: [address] [place] [address] Performed By: #### 5 7021-8 ####[facility] LABCLIA [id number] [place] [address] [place] Hematocrit (Bld) [Volume fraction] 42.0 % Normal 39.0-51.[address] [facility] Comment on above: Order Comment: Speci men Type: BLOOD SPECIMENOrdering Facility: [facility] Address: [address] [place] [address] Performed By: #### 5 7021-8 ####[facility] LABIA [id number] [place] [address] [place] Hemoglobin (Bld) [Mass/Vol] 13.2 g/dL Normal 13.0-17.[address] [facility] Comment on above: Order Comment: Speci men Type: BLOOD SPECIMENOrdering Facility: [facility] Address: [address] [place] [address] Performed By: #### 5 7021-8 ####[facility] LABIA [id number] [place] [address] [place] Immature granulocytes (Bld) [#/Vol] 0.05 10*3/uL Normal <0.[address] [facility] Comment on above: Order Comment: Speci men Type: BLOOD SPECIMENOrdering Facility: [facility] Address: [address] [place] [address] Performed By: #### 5 7021-8 ####[facility] LABIA [id number] [place] [address] [place] Immature granulocytes/100 WBC (Bld) 0.4 % Normal [facility] Comment on above: Order Comment: Speci men Type: BLOOD SPECIMENOrdering Facility: [facility] Address: [address] [place] [address] Performed By: #### 5 7021-8 ####[facility] LABIA [id number] [place] [address] [place] Lymphocytes (Bld) [#/Vol] 2.07 10*3/uL Normal 1.00-4.[address] [facility] Comment on above: Order Comment: Speci men Type: BLOOD SPECIMENOrdering Facility: [facility] Address: [address] [place] [address] Performed By: #### 5 7021-8 ####[facility] LABCLIA [id number] [place] [address] [place] Lymphocytes/100 WBC (Bld) 17.7 % Normal [facility] Comment on above: Order Comment: Speci men Type: BLOOD SPECIMENOrdering Facility: [facility] Address: [address] [place] [address] Performed By: #### 5 7021-8 ####[facility] LABIA [id number] [place] [address] [place] MCH (RBC) [Entitic mass] 28.1 pg Normal 26.0-34.[address] [facility] Comment on above: Order Comment: Speci men Type: BLOOD SPECIMENOrdering Facility: [facility] Address: [address] [place] [address] Performed By: #### 5 7021-8 ####[facility] LABIA [id number] [place] [address] [place] MCHC (RBC) [Mass/Vol] 31.4 g/dL Normal 30.5-36.0 [facility] Comment on above: Order Comment: Speci men Type: BLOOD SPECIMENOrdering Facility: [facility] Address: [address] [place] [address] Performed By: #### 5 7021-8 ####[facility] LABIA [id number] [place] [address] [place] MCV (RBC) [Entitic vol] 89.4 fL Normal 80.0-100.[address] [facility] Comment on above: Order Comment: Speci men Type: BLOOD SPECIMENOrdering Facility: [facility] Address: [address] [place] [address] Performed By: #### 5 7021-8 ####[facility] LABCLIA [id number] [place] [address] [place] Monocytes (Bld) [#/Vol] 0.89 10*3/uL High <0.[address] [facility] Comment on above: Order Comment: Speci men Type: BLOOD SPECIMENOrdering Facility: [facility] Address: [address] [place] [address] Performed By: #### 5 7021-8 ####[facility] LABCLIA [id number] [place] [address] [place] Monocytes/100 WBC (Bld) 7.6 % Normal [facility] Comment on above: Order Comment: Speci men Type: BLOOD SPECIMENOrdering Facility: [facility] Address: [address] [place] [address] Performed By: #### 5 7021-8 ####[facility] LABCLIA [id number] [place] [address] [place] Neutrophils (Bld) [#/Vol] 8.53 10*3/uL High 1.45-7.[address] [facility] Comment on above: Order Comment: Speci men Type: BLOOD SPECIMENOrdering Facility: [facility] Address: [address] [place] [address] Performed By: #### 5 7021-8 ####[facility] LABCLIA [id number] [place] [address] [place] Neutrophils/100 WBC (Bld) 73.1 % Normal [facility] Comment on above: Order Comment: Speci men Type: BLOOD SPECIMENOrdering Facility: [facility] Address: [address] [place] [address] Performed By: #### 5 7021-8 ####[facility] LABCLIA [id number] [place] [address] [place] Nucleated RBC (Bld) [#/Vol] 10*3/uL Normal <0.[address] [facility] Comment on above: Order Comment: Speci men Type: BLOOD SPECIMENOrdering Facility: [facility] Address: [address] [place] [address] Performed By: #### 5 7021-8 ####[facility] LABCLIA [id number] [place] [address] [place] Nucleated RBC/100 WBC (Bld) [Ratio] 0.0 /100 WBC Normal [facility] Comment on above: Order Comment: Speci men Type: BLOOD SPECIMENOrdering Facility: [facility] Address: [address] [place] [address] Performed By: #### 5 7021-8 ####[facility] LABCLIA [id number] [place] [address] [place] Platelet mean volume (Bld) [Entitic vol] 9.9 fL Normal 9.0-12.[address] [facility] Comment on above: Order Comment: Speci men Type: BLOOD SPECIMENOrdering Facility: [facility] Address: [address] [place] [address] Performed By: #### 5 7021-8 ####[facility] LABIA [id number] [place] [address] [place] Platelets (Bld) [#/Vol] 308 10*3/uL Normal 150-[address] [facility] Comment on above: Order Comment: Speci men Type: BLOOD SPECIMENOrdering Facility: [facility] Address: [address] [place] [address] Performed By: #### 5 7021-8 ####[facility] LABCLIA [id number] [place] [address] [place] RBC (Bld) [#/Vol] 4.70 10*6/uL Normal 4.20-6.00 [facility] Comment on above: Order Comment: Speci men Type: BLOOD SPECIMENOrdering Facility: [facility] Address: [address] [place] [address] Performed By: #### 5 7021-8 ####[facility] [id number] [place] [address] [place] WBC (Bld) [#/Vol] 11.69 10*3/uL High 3.70-11.00 [place] Comment on above: Order Comment: Speci men Type: BLOOD SPECIMENOrdering Facility: [facility] Address: [address] [place] [address] Performed By: #### 5 7021-8 ####[facility] LABIA [id number] [address] [place] CNPNon [facility] ALEJO GAGE ([id number]) 1940 M Date Time Provider Department 09/17/24 [facility] During your visit today, we recorded the following information about you: Sirena Martinez 09/17/2024 10:40 AM Signed Patient is wanting to come in to today for routine lab work for upcoming wellness exam with PCP on 09/26/24. Please notify patient when orders are available in chart. Desirae Irving APRN.KEELER POLYGRAPH OPERATOR 09/17/2024 2:05 PM Signed Labs placed this morning. Already in process. Desirae Irving APRN.KEELER POLYGRAPH OPERATOR Allergies As of Date: 09/17/2024 Noted Allergy Reaction ATORVASTATIN 10/18/2017 16 - Unknown CRESTOR (ROSUVASTATIN CALCIUM) 04/24/2013 14 - Other: See Comments Comments: Muscle pain GLUCOSAMINE 06/27/2017 16 - Unknown Comments: Nerve pain MOTRIN (IBUPROFEN) 01/19/2006 2 - Rash PRAVASTATIN 02/19/2013 14 - Other: See Comments Comments: muscle aches [id number] REDUCTASE INHIBIT*10/09/2014 14 - Other: See Comments Comments: myalgia Date Reviewed: 05/23/2024 Reviewed by: Juana Herrmann RN - Fully Assessed Reason for Visit: Lab Orders [1688] Prescriptions as of 09/17/2024 - isosorbide mononitrate [...] - Uncontrolled, E11.65 Insulin: Yes - Insulin Huntley, Disposable, (BD ULTRA-FINE BENNY PEN NEEDLE) 32 [...] CAD ( (more content not included)... Normal [facility] Comprehensive metabolic 2000 panelon 09-17-2024 Albumin [Mass/Vol] 3.7 g/dL Low 3.9-4.9 [facility] Comment on above: Order Comment: Speci men Type: BLOOD SPECIMENOrdering Facility: [facility] Address: [address] [place] [address] Performed By: #### 2 4323-8 ####[facility] LABORATORYCLIA [id number] [place] [address] [place]#### 47863-5 ####[facility] LABORATORYCLIA [id number] [address] [place] [facility] LABCLIA [id number] [place] [address] [place] ALP [Catalytic activity/Vol] 82 U/L Normal 38-[address] [facility] Comment on above: Order Comment: Speci men Type: BLOOD SPECIMENOrdering Facility: [facility] Address: [address] [place] [address] Performed By: #### 2 4323-8 ####[facility] LABORATORYCLIA [id number] [place] [address] [place]#### 80517-7 ####[facility] LABORATORYCLIA [id number] [place] [id number] [facility] LABCLIA [id number] [place] [address] [place] ALT [Catalytic activity/Vol] 20 U/L Normal 10-[address] [facility] Comment on above: Order Comment: Speci men Type: BLOOD SPECIMENOrdering Facility: [facility] Address: [address] [place] [address] Performed By: #### 2 4323-8 ####[facility] LABORATORYCLIA [id number] [place] [id number] [place]#### 63627-4 ####[facility] LABORATORYCLIA [id number] [place] [id number] [facility] LABCLIA [id number] [place] [address] [place] Anion gap [Moles/Vol] 10 mmol/L Normal 8-15 [facility] Comment on above: Order Comment: Speci men Type: BLOOD SPECIMENOrdering Facility: [facility] Address: [address] [place] [address] Performed By: #### 2 4323-8 ####[facility] LABORATORYCLIA [id number] [place] [address] [place]#### 36853-4 ####[facility] LABORATORYCLIA [id number] [address] LABCLIA [id number] [place] [address] [place] AST [Catalytic activity/Vol] 19 U/L Normal 14-[address] [facility] Comment on above: Order Comment: Speci men Type: BLOOD SPECIMENOrdering Facility: [facility] Address: [address] [place] [address] Performed By: #### 2 4323-8 ####[facility] LABORATORYCLIA [id number] [place] [id number] [place]#### 77231-7 ####[facility] LABORATORYCLIA [id number] [place] [id number] [facility] LABCLIA [id number] [place] [address] [place] Bilirubin [Mass/Vol] 0.3 mg/dL Normal 0.2-1.3 [place] Comment on above: Order Comment: Speci men Type: BLOOD SPECIMENOrdering Facility: [facility] Address: [address] [id number] Performed By: #### 2 4323-8 ####[facility] LABORATORYCLIA [id number] [place] [id number] [place]#### 75724-9 ####[facility] LABORATORYCLIA [id number] [place] [address] [facility] LABCLIA [id number] [place] [address] [place] Calcium [Mass/Vol] 9.4 mg/dL Normal 8.5-10.2 [facility] Comment on above: Order Comment: Speci men Type: BLOOD SPECIMENOrdering Facility: [facility] Address: [address] [place], [place] [address] Performed By: #### 2 4323-8 ####[facility] LABORATORYCLIA [id number] [place] [address] [place]#### 89836-0 ####[facility] LABORATORYCLIA [id number] [address] LABCLIA [id number] [place] [address] [place] Chloride [Moles/Vol] 104 mmol/L Normal 98-107 [place] Comment on above: Order Comment: Speci men Type: BLOOD SPECIMENOrdering Facility: [facility] Address: [address] [place], [place] [address] Performed By: #### 2 4323-8 ####[facility] LABORATORYCLIA [id number] [place] [address] [place]#### 23024-9 ####[facility] LABORATORYCLIA [id number] [place] [address] [facility] LABCLIA [id number] [place] [address] [place] CO2 [Moles/Vol] 27 mmol/L Normal 22-[address] [facility] Comment on above: Order Comment: Speci men Type: BLOOD SPECIMENOrdering Facility: [facility] Address: [address] [place] [address] Performed By: #### 2 4323-8 ####CON[facility] LABORATORYCLIA [id number] [place] [address] [place]#### 52458-0 ####[facility] LABORATORYCLIA [id number] [address] LABCLIA [id number] [facility] [place] [address] [place] Creatinine [Mass/Vol] 1.68 mg/dL High 0.73-1.22 [facility] Comment on above: Order Comment: Speci men Type: BLOOD SPECIMENOrdering Facility: [facility] Address: [address] [place] [address] Performed By: #### 2 4323-8 ####CONGREG[facility] LABORATORYCLIA [id number] [place] [address] [place]#### 13963-3 ####[facility] LABORATORYCLIA [id number] [place] [address] [facility] LABCLIA [id number] [place] [address] [place] Creatinine and Glomerular filtration rate.predicted panel (S/P/Bld) 40 mL/min/1.73m??? Low >=[address] [facility] Comment on above: Order Comment: Speci men Type: BLOOD SPECIMENOrdering Facility: [facility] Address: [address] [place] [address] Result Comment: Jeanette mated Glomerular Filtration Rate [...] reflect actual GFR. Performed By: #### 2 4323-8 ####CON[facility] LABORATORYCLIA [id number] [place] [address] [place]#### 17961-6 ####[facility] LABORATORYCLIA [id number] [address] LABCLIA [id number] [place] [address] [place] Glucose [Mass/Vol] 80 mg/dL Normal 74-99 [facility] Comment on above: Order Comment: Speci men Type: BLOOD SPECIMENOrdering Facility: [facility] Address: [address] [place] [address] Result Comment: The [place] Diabetes Association (ADA) provides guidance for cutoff [...] Standards of Medical Care in Diabetes 2016, [place] [employer] Association. Diabetes Care. 2016.39(Suppl 1). Performed By: #### 2 4323-8 ####[facility] LABORATORYCLIA [id number] [place] [address] [place]#### 83281-2 ####[facility] LABORATORYCLIA [id number] [place] [address] [facility] LABCLIA [id number] [place] [address] [place] Potassium [Moles/Vol] 4.6 mmol/L Normal 3.7-5.1 [facility] Comment on above: Order Comment: Speci men Type: BLOOD SPECIMENOrdering Facility: [facility] Address: [address] [address] Performed By: #### 2 4323-8 ####CON[facility] LABORATORYCLIA [id number] [place] [address] [place]#### 23885-2 ####[facility] LABORATORYCLIA [id number] [place] [address] [facility] LABCLIA [id number] [place] [address] [place] Protein [Mass/Vol] 6.8 g/dL Normal 6.3-8.0 [facility] Comment on above: Order Comment: Speci men Type: BLOOD SPECIMENOrdering Facility: [facility] Address: [facility] [place] [address] Performed By: #### 2 4323-8 ####CON[facility] LABORATORYCLIA [id number] [place] [address] [place]#### 84121-1 ####[facility] LABORATORYCLIA [id number] [address] LABCLIA [id number] [place] [address] [place] Sodium [Moles/Vol] 141 mmol/L Normal 136-144 [facility] Comment on above: Order Comment: Speci men Type: BLOOD SPECIMENOrdering Facility: [facility] Address: [address] [id number] Performed By: #### 2 4323-8 ####CON[facility] LABORATORYCLIA [id number] [place] [address] [place]#### 53133-8 ####CON[facility] LABORATORYCLIA [id number] [place] [address] [facility] LABCLIA [id number] [place] [address] [place] Urea nitrogen [Mass/Vol] 26 mg/dL High 9-[address] [facility] Comment on above: Order Comment: Cyndy sinha Type: BLOOD SPECIMENOrdering Facility: [facility] Address: [address] [place] [address] Performed By: #### 2 4323-8 ####CON[facility]ATION LABORATORYCLIA [id number] [address] [address] [place]#### 69874-5 ####CON[facility] LABORATORYCLIA [id number] [address] [address] [place] [facility] LABCLIA [id number] [place] [address] [place] HbA1c (Bld)on 09-17-2024 Average glucose Estimated from glycated hemoglobin (Bld) [Mass/Vol] 134 mg/dL Normal [facility] Comment on above: Order Comment: Cyndy sinha Type: BLOOD SPECIMENOrdering Facility: [facility] Address: [address] [place] [address] Result Comment: eAG: (Estimated average glucose) is a calculated value from HgbA1c and is provider service representative of the average blood glucose level in the last 2-3 month period. Performed By: #### 5 5454-3 ####[facility] LABCLIA [id number] [place] [address] [place] HbA1c (Bld) [Mass fraction] 6.3 % High 4.3-5.[address] [facility] Comment on above: Order Comment: Cyndy sinha Type: BLOOD SPECIMENOrdering Facility: [facility] Address: [address] [place] [address] Result Comment: [place] Diabetes Association guidelines indicate that patients with HgbA1c in the range 5.7-6.4% are at increased risk for development of diabetes, and intervention by lifestyle modification may be beneficial. HgbA1c greater or equal to 6.5% is considered diagnostic of diabetes. Performed By: #### 5 5454-3 ####[facility] LABCLIA [id number] [place] [address] [place] Lipid 1996 panelon 5 Cholesterol [Mass/Vol] 201 mg/dL High <200 [facility] Comment on above: Order Comment: Speci men Type: BLOOD SPECIMENOrdering Facility: [facility] Address: [address] [place] [address] Result Comment: <200 mg/dL, Desirable 200-239 mg/dL, Borderline high >239 mg/dL, High Performed By: #### 2 4323-8 ####[facility] LABORATORYCLIA [id number] [address] [place]#### 30021-6 ####[facility] LABORATORYCLIA [id number] [address] LABCLIA [id number] [address] Cholesterol in HDL [Mass/Vol] 39 mg/dL Low >[address] [facility] Comment on above: Order Comment: Speci men Type: BLOOD SPECIMENOrdering Facility: [facility] Address: [address] [place] [address] Result Comment: 40-5 9 mg/dL, Acceptable >59 mg/dL, High: Negative risk factor for coronary heart disease <40 mg/dL, Low: Positive risk factor for coronary heart disease Performed By: #### 2 4323-8 ####[facility] LABORATORYCLIA [id number] [address] [place]#### 18078-5 ####[facility] LABORATORYCLIA [id number] [address] LABCLIA [id number] [address] [place] Cholesterol in LDL [Mass/Vol] 132 mg/dL High <[address] [facility] Comment on above: Order Comment: Speci men Type: BLOOD SPECIMENOrdering Facility: [facility] Address: [address] [place] [address] Result Comment: <100 mg/dL, Optimal 100-129 mg/dL, Near optimal/above optimal 130-159 mg/dL, Borderline high 160-189 mg/dL, High >189 mg/dL, Very high Secondary prevention optimal LDL Cholesterol levels are recommended to be < 70 mg/dL Performed By: #### 2 4323-8 ####[facility] LABORATORYCLIA [id number] [place] [address] [place]#### 32664-7 ####CON[facility] LABORATORYCLIA [id number] [place] [address] [facility] LABCLIA [id number] [place] [address] [place] Cholesterol in LDL/Cholesterol in HDL [Mass ratio] 3.38 {ratio} High <2.[address] [facility] Comment on above: Order Comment: Speci men Type: BLOOD SPECIMENOrdering Facility: [facility] Address: [address] [place] [address] Result Comment: Refe rence: 1. National Cholesterol Education Program ATP III Guideline At-A-Glance Quick Desk Reference: National Heart, Lung, and Blood [place]. National Institutes of Health. 2001: NIH Publication No. 01-3305. 2. An International Atherosclerosis Society position paper: global recommendations for the management of dyslipidemia: executive summary, Atherosclerosis. 2014: 232(2):410-413. Performed By: #### 2 4323-8 ####[facility] LABORATORYCLIA [id number] [address] [place]#### 94441-8 ####[facility] LABORATORYCLIA [id number] [place] [address] [facility] LABCLIA [id number] [place] [address] [place] Cholesterol in VLDL [Mass/Vol] 30 mg/dL High <[address] [facility] Comment on above: Order Comment: Speci men Type: BLOOD SPECIMENOrdering Facility: [facility] Address: [address] [place] [address] Performed By: #### 2 4323-8 ####[facility] LABORATORYCLIA [id number] [place] [address] [place]#### 79537-1 ####[facility] LABORATORYCLIA [id number] [place] [address] [facility] LABCLIA [id number] [place] [address] [place] Cholesterol non HDL [Mass/Vol] 162 mg/dL High <[address] [facility] Comment on above: Order Comment: Speci men Type: BLOOD SPECIMENOrdering Facility: [facility] Address: [address] [place] [address] Result Comment: <130 mg/dL, Optimal 130-159 mg/dL, Near optimal/above optimal 160-189 mg/dL, Borderline high 190-219 mg/dL, High >219 mg/dL, Very high Secondary prevention optimal non HDL Cholesterol levels are recommended to be <100 mg/dL Performed By: #### 2 4323-8 ####[facility] LABORATORYCLIA [id number] [place] [address] [place]#### 25752-1 ####[facility] LABORATORYCLIA [id number] [place] [id number] [facility] LABCLIA [id number] [place] [address] [place] Cholesterol.total/Chol esterol in HDL [Mass ratio] 5.15 {ratio} High <5.[address] [facility] Comment on above: Order Comment: Speci men Type: BLOOD SPECIMENOrdering Facility: [facility] Address: [address] [place], [place] [address] Performed By: #### 2 4323-8 ####[facility] LABORATORYCLIA [id number] [place] [address] [place]#### 71270-6 ####CON[facility] LABORATORYCLIA [id number] [place] [id number] [facility] LABCLIA [id number] [place] [address] [place] FASTING TIME 12 hrs Normal [facility] Comment on above: Order Comment: Speci men Type: BLOOD SPECIMENOrdering Facility: [facility] Address: [address] [place] [address] Performed By: #### 2 4323-8 ####[facility] LABORATORYCLIA [id number] [place] [address] [place]#### 03992-2 ####[facility] LABORATORYCLIA [id number] [address] LABCLIA [id number] [place] [address] [place] Triglyceride [Mass/Vol] 149 mg/dL Normal <[address] [facility] Comment on above: Order Comment: Speci men Type: BLOOD SPECIMENOrdering Facility: [facility] Address: [address] [place] [address] Result Comment: <150 mg/dL, Normal 150-199 mg/dL, Borderline high 200-499 mg/dL, High >499 mg/dL, Very high Performed By: #### 2 4323-8 ####[facility] LABORATORYCLIA [id number] [place] [address] [place]#### 28395-4 ####[facility] LABORATORYCLIA [id number] [address] LABCLIA [id number] [place] [address] [place] PSA/PROSTATE SPECIFIC ANTIGE N SCREENINGon 09-17-2024 Prostate specific Ag [Mass/Vol] 0.05 ng/mL Normal <2.[address] [facility] Comment on above: Order Comment: Speci men Type: BLOOD SPECIMENOrdering Facility: [facility] Address: [address] [place] [address] Result Comment: Tota l PSA test methodology used is the Electrochemiluminescence Immunoassay by [employer]. Total PSA values by differing methodologies cannot be interchanged. Performed By: #### P SAS1 ####[facility] JANE [id number] [place] [address] [place] Mirza 06-08-2024 JOHN Telephone (GENKAILEYS) -- ALEJO GAGE ([id number]) 1940 M Date Time Provider Department 06/08/24 [...] 2:32 PM Signed 3mg capsules sent to [facility] in [place]. Please call Alejo AND let him know. Thank you, Cristela Andersen APRN.Komal Sena RN 06/08/2024 2:54 PM Signed Patient notified prescription sent to the [facility] in [place]. Komal Rich RN June 08, 2024 2:54 PM Allergies As of Date: 06/08/2024 Noted Allergy Reaction ATORVASTATIN 10/18/2017 16 - Unknown CRESTOR (ROSUVASTATIN CALCIUM) 04/24/2013 14 - Other: See Comments Comments: Muscle pain GLUCOSAMINE 06/27/2017 16 - Unknown Comments: Nerve pain MOTRIN (IBUPROFEN) 01/19/2006 2 - Rash PRAVASTATIN 02/19/2013 14 - Other: See Comments Comments: muscle aches DCIVCXK-GYY-ONT REDUCTASE INHIBIT*10/09/2014 14 - Other: See Comments [...] - Uncontrolled, E11.65 Insulin: Yes - Insulin Huntley, Disposable, (BD ULTRA-FINE BENNY PEN NEEDLE) 32 [...] rupture [* (more content not included)... Normal [facility] CNOVon 05-31-2024 CNOV Office Visit (GENSWS ) -- ALEJO GAGE ([id number]) 1940 M Date Time Provider Department 05/31/24 2:00 PM CRISTELA ANDERSEN During your visit today, we recorded the following information about you: Cristela Andersen APRN.CNP 05/31/2024 2:38 PM Signed FOLLOW UP VISIT - ENDOSCOPY Alejo Gage 1940 [id number] REFERRING PHYSICIAN: No referring provider defined for this encounter. Alejo Gage is a patient I am following [...] needed for worsening/no improvement. _ Cristela Andersen APRN.CNP Allergies As of Date: 05/31/2024 Noted Allergy Reaction ATORVASTATIN 10/18/2017 16 - Unknown CRESTOR (ROSUVASTATIN CALCIUM) 04/24/2013 14 - Other: See Comments Comments: Muscle pain GLUCOSAMINE 06/27/2017 16 - Unknown Comments: Nerve pain MOTRIN (IBUPROFEN) 01/19/2006 2 - Rash PRAVASTATIN 02/19/2013 14 - Other: See Comments Comments: muscle aches RYKCEFZ-JEJ-XYI REDUCTASE INHIBIT*10/09/2014 14 - Other: See Comments [...] - Uncontrolled, E11.65 Insulin: Yes - Insulin Huntley, Disposable, (BD ULTRA-FINE BENNY PEN NEEDLE) 32 gauge x 5/32 Use once daily with Lantus as directed - diclofenac sodium (VOLTAREN) 1 % topical gel Apply 2 g to affected area four times daily. - flaxseed oil (OMEGA 3 ORAL) Take by mouth. - hydrocortisone 2.5 % cream Apply 1 application to affected area twice marvin (more content not included)... Normal [facility] ([id number]) 1940 M Date Time Provider Department 05/30/24 CRISTELA ANDERSEN During your visit today, we recorded the following information about you: Cristela Andersen APRN.CNP 05/30/2024 9:58 AM Signed Can you please call Alejo to let him know he needs a [...] - Other: See Comments Comments: muscle aches MWWAYAL-HHQ-JVA REDUCTASE INHIBIT*10/09/2014 14 - Other: See Comments [...] - Uncontrolled, E11.65 Insulin: Yes - Insulin Huntley, Disposable, (BD ULTRA-FINE BENNY PEN NEEDLE) 32 [...] [R73.03] 03/23/2011 (more content not included)... Normal [facility] C. DIFFICILE PCRon C. difficile toxin genes CHANTAL+probe Ql (Stl) Negative Negative for C. difficile toxin by PCR [facility] C. difficile toxin genes CHANTAL +probe Ql (Stl)on 05-24-2024 Interpretation and review of laboratory results Normal [facility] ANES POSTPROC EVALon 024 ANES POSTPROC EVAL HNO ID: [id number] Author: KARRIE BURGER MD Service: Anesthesiology Author Type: Anesthesiologist Type: Anesthesia Postprocedure Evaluation Filed: 05/23/2024 15:46 Note Text: POST ANESTHESIA EVALUATION NOTE : 1940 Procedure Summary Date: 05/23/24 Room / Location: [facility] Endoscopy Anesthesia Start: 1333 Anesthesia Stop: 141 Procedures: COLONOSCOPY DIAGNOSTIC EGD DIAGNOSTIC Diagnosis: Chronic diarrhea Generalized abdominal pain Gastroesophageal reflux disease without esophagitis (Abdominal pain in the left upper quadrant) (Abdominal pain in the left upper quadrant) Scheduled Providers: Malu Mendoza MD; Bella Hannah APRN.TESTER OPERATOR HELPER; Cristin Nieves MD Responsible Provider: Colt Rice [...] Documentation SIGNATURE: Karrie Burger MD PATIENT NAME: Alejo Gage DATE: May 23, 2024 TIME: 3:46 PM CSN: [id number] Normal [facility] ANES PRE-OPon 05-23-2024 ANES PRE-OP HNO ID: [id number] Author: COLT RICE MD Service: Anesthesiology Author Type: Anesthesiologist Type: Anesthesia Preprocedure Evaluation Filed: 05/23/2024 12:45 Note Text: ANESTHESIOLOGY DAY OF SURGERY NOTE : 1940 Procedure Information Date/Time: 05/23/24 1415 Scheduled providers: Malu Mendoza MD; Bella Hannah APRN.CRNA; Cristin Nieves MD Procedures: COLONOSCOPY DIAGNOSTIC EGD DIAGNOSTIC Location: [facility] Endoscopy Estimated body mass index is 24.78 kg/m? as calculated from the following: Height as of this encounter: 172.7 cm (5' 8). Weight as of this encounter: 73.9 kg (163 lb). Most recent hematocrit and potassium results: Hematocrit 39.3 03/19/2024 Potassium 4.3 03/19/2024 Relevant Problems CARDIO (+) Abdominal aortic aneurysm (AAA) without rupture (HCC) (+) Atherosclerosis of common carotid artery (+) Atherosclerosis 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 (HCC) (+) Carotid [...] and consent discussed: yes. Patient / Responsible Green Party agrees to proceed: yes Patient / Surrogate agrees to blood products: blood products not planned Significant changes in the patient condition since the History and Physical, not otherwise documented in primary service progress note: no. BP 165/71 05/23/24 1211 Pulse 75 05/23/24 1211 Resp 16 05/23/24 1211 Temp 36.7 ?C (98.1 ?F) 05/23/24 1211 SpO2 100 % 05/23/24 121 Outpatient Medications as of 05/23/2024 Medication Sig [...] - Uncontrolled, E11.65 Insulin: Yes - Insulin Huntley, Disposable, (BD ULTRA-FINE BENNY PEN NEEDLE) 32 [...] as in (more content not included)... Normal [facility] C diff Tox gens Stl Ql CHANTAL+p robeon 05-23-2024 C. difficile toxin genes CHANTAL+probe Ql (Stl) Negative Normal Negative for C. difficile toxin by PCR [facility] Comment on above: Order Comment: Speci men Type: STOOL SPECIMEN [facility] Address: [address] [place] [address] Performed By: #### P [facility], 24648-3, 17021-1 #### [facility] CLIA [id number] [address] [place] [address] [place] Colonoscopyon 05-23-2024 Colonoscopy [facility] Gastrointestinal Endoscopy Patient Name: Alejo Gage Procedure Date: 05/23/2024 1:44 PM Date of : 1940 Admit Type: Outpatient Age: 83 Room: [facility] Gender: Male Note Status: Finalized Attending MD: Malu Mendoza MD, [id number] Procedure: Colonoscopy Indications: Abdominal pain in the [...] anesthesia care under the supervision of a TESTER OPERATOR HELPER was determined to be medically necessary for [...] to age. Procedure Code(s): --- Professional --- 35698, Colonoscopy, flexible; with biopsy, single or multiple Diagnosis Code(s): --- Professional --- K57.30, Diverticulosis of large intestine without perforation or abscess without bleeding R19.7, Diarrhea, unspecified R10.12, Left upper quadrant pain K64.8, Other hemorrhoids CPT copyright 2020 [place] [employer]. All rights reserved. The codes documented in this report are preliminary and upon silver miner review may be revised to meet current compliance requirements. Attending Participation: I personally performed the entire procedure. Scope In: 1:47:48 PM Scope Out: 2:05:30 PM MD Malu Huston MD 05/23/2024 2:08:39 PM This report has been signed electronically by Malu Mendoza MD Number of Addenda: 0 Note Initiated On: 05/23/2024 1:44 PM Estimated Blood Loss: Estimated blood loss was minimal. Normal [facility] ECG COMPLETEon 05-23-2024 Atrial Rate 66 BPM [facility] Calculated R [place] 120 degrees [facility] Calculated T [place] 154 degrees [facility] P-R Interval 154 ms [facility] QRS Duration 96 ms [facility] QT Interval 432 ms [facility] QTC Calculation (Bazett) 452 ms [facility] Ventricular Rate 66 BPM [facility] NORMAL SINUS RHYTHM LOW VOLTAGE QRS LEFT POSTERIOR FASCICULAR BLOCK POSSIBLE INFERIOR INFARCT (CITED ON OR BEFORE 23-May-2024) ABNORMAL ECG WHEN COMPARED WITH ECG OF 23-May-2024 13:02, NO SIGNIFICANT CHANGE WAS FOUND Confirmed by MARCIAL AUSTIN M.D. ([id number]) on 05/23/2024 4:02:00 PM [facility] NAME : ANISA GAGE PID : [id number] : 1940 Gender : Male Race : ORD : [id number] Procedure Date : May 23 2024 13:02:54 [...] By : CRISTELA ANDERSEN Acquired by : [id number], [facility] ECG COMPLETE Ventricular Rate : 6 6 BPM Atrial Rate : 66 BPM P-R Interval : 154 ms QRS Duration : 96 ms Q-T Interval : 432 ms QTC Calculation(Bazett) : 452 ms Calculated R [place] : 120 degrees Calculated T [place] : 154 degrees NORMAL SINUS RHYTHM LOW VOLTAGE QRS LEFT POSTERIOR FASCICULAR BLOCK POSSIBLE INFERIOR INFARCT (CITED ON OR BEFORE 23-May-2024) ABNORMAL ECG WHEN COMPARED WITH ECG OF 23-May-2024 13:02, NO SIGNIFICANT CHANGE WAS FOUND Confirmed by MARCIAL AUSTIN M.D. ([id number]) on 05/23/2024 4:02:00 PM NAME : ALEJO GAGE PID : [id number] : 1940 Gender : Male Race : ORD : [id number] Procedure Date : May 23 2024 13:02:54 [...] By : CRISTELA ANDERSEN Acquired by : [id number], [place] [facility] Study observation Narrjalen salazar 05-23-2024 [facility] Gastrointestinal Endoscopy Patient Name: Alejo Gage Procedure Date: 05/23/2024 1:23 PM Date of : 1940 Admit Type: Outpatient Age: 83 Room: [facility] Gender: Male Note Status: Finalized Attending MD: Malu Mendoza MD, [id number] Procedure: Upper GI endoscopy Indications: Abdominal pain [...] anesthesia care under the supervision of a TESTER OPERATOR HELPER was determined to be medically necessary for [...] future endoscopies Procedure Code(s): --- Professional --- 13678, Esophagogastroduodenoscopy , flexible, transoral; with biopsy, single or multiple Diagnosis Code(s): --- Professional --- R10.12, Left upper quadrant pain K44.9, Diaphragmatic hernia without obstruction or gangrene K31.89, Other diseases of stomach and duodenum CPT copyright 2020 [employer]. All rights reserved. The codes documented in this report are preliminary and upon silver miner review may be revised to meet current compliance requirements. Attending Participation: I personally performed the entire procedure. Scope In: 1:39:11 PM Scope Out: 1:43:56 PM MD Malu Huston MD 05/23/2024 1:46:49 PM This report has been signed electronically by Malu Mendoza MD Number of Addenda: 0 Note Initiated On: 05/23/2024 1:23 PM Estimated Blood Loss: Estimated blood loss was minimal. PROVATION [facility] Radiology Study observation (narrative) [facility] Flexible sigmoidoscopy study on 05-23-2024 [facility] Gastrointestinal Endoscopy Patient Name: Alejo Gage Procedure Date: 05/23/2024 1:44 PM Date of : 1940 Admit Type: Outpatient Age: 83 Room: [facility] Gender: Male Note Status: Finalized Attending MD: Malu Mendoza MD, [id number] Procedure: Colonoscopy Indications: Abdominal pain in the [...] anesthesia care under the supervision of a TESTER OPERATOR HELPER was determined to be medically necessary for [...] to age. Procedure Code(s): --- Professional --- 11692, Colonoscopy, flexible; with biopsy, single or multiple Diagnosis Code(s): --- Professional --- K57.30, Diverticulosis of large intestine without perforation or abscess without bleeding R19.7, Diarrhea, unspecified R10.12, Left upper quadrant pain K64.8, Other hemorrhoids CPT copyright 2020 [employer]. All rights reserved. The codes documented in this report are preliminary and upon silver miner review may be revised to meet current compliance requirements. Attending Participation: I personally performed the entire procedure. Scope In: 1:47:48 PM Scope Out: 2:05:30 PM MD Malu Huston MD 05/23/2024 2:08:39 PM This report has been signed electronically by Malu Mendoza MD Number of Addenda: 0 Note Initiated On: 05/23/2024 1:44 PM Estimated Blood Loss: Estimated blood loss was minimal. PROVATION [facility] Radiology Study observation (narrative) [facility] G lamblia+Cryptosp Ag Stl Ql IAon 05-23-2024 G. lamblia+Cryptosporidiu m sp Ag IA Ql (Stl) CRYPTOSPORIDIUM ANTIGEN BY EIA: Negative for Cryptosporidium by EIA. GIARDIA ANTIGEN BY EIA: Negative for Giardia lamblia by EIA. [facility] Comment on above: Performed By: #### P [facility], 57768-4, 08719-2 #### [facility] CLIA [id number] [address] [place] [address] [place] GLUCOSE, BLOOD (POC)on 05-23 Glucose [Mass/Vol] 79 mg/dL 74 - 99 mg/dL [facility] Comment on above: Location:[facility] ital, [address], [place], [address] The Accu-Chek Inform II glucose meter has [...] blood gas instrument) in the above situations. [facility] Glucose [Mass/Vol] 85 mg/dL 74 - 99 mg/dL [facility] Comment on above: Location:[facility] ital, [address], [place], [address] The Accu-Chek Inform II glucose meter has [...] blood gas instrument) in the above situations. [facility] Gastrointestinal pathogens i dentified CHANTAL+probe Nom (Stl)on 05-23-2024 Campylobacter sp DNA CHANTAL+probe Nom (Unsp spec) Not detected Normal Not Detected [facility] Comment on above: Order Comment: Speci bharath Type: STOOL SPECIMEN Ordering Facility: [facility] Address: [address] [place] [address] Performed By: #### 7 9390-1 #### [facility] CLIA [id number] [address] [place] [address] [place] [address] [place] Salmonella sp DNA CHANTAL+probe Ql (Unsp spec) Not detected Normal Not Detected [facility] Comment on above: Order Comment: Speci men Type: STOOL SPECIMEN Ordering Facility: [facility] Address: [address] [place] [address] Performed By: #### 7 9390-1 #### [facility] CLIA [id number] [address] [place] [address] Shiga toxin stx gene CHANTAL+probe Nom (Unsp spec) Not detected Normal Not Detected [facility] Comment on above: Order Comment: Speci men Type: STOOL SPECIMEN Ordering Facility: [facility] Address: [address] [place] [address] Performed By: #### 7 9390-1 #### [facility] CLIA [id number] [address] [place] [address] [place] Shigella sp DNA CHANTAL+probe Ql (Unsp spec) Not detected Normal Not Detected [facility] Comment on above: Order Comment: Speci men Type: STOOL SPECIMEN Ordering Facility: [facility] Address: [address] [place] [address] Performed By: #### 7 9390-1 #### [facility] CLIA [id number] [address] [place] [address] [place] HISTORY PHYSICALon HISTORY PHYSICAL HNO ID: [id number] Author: AMLU MENDOZA MD Service: General Surgery Author Type: Physician Type: H&P Filed: 05/23/2024 13:31 Note Text: HISTORY AND PHYSICAL Alejo Gage : 1940 REFERRING PHYSICIAN: Samson Ragsdale [address] [facility] [address] CHIEF COMPLAINT: Patient presents with: Consult: Colonoscopy HPI: Alejo is a 83 year old male referred for endoscopy. Alejo notes diarrhea x 6 months AND decreased appetite. PCP Alejo denies abdominal pain.. Alejo notes diarrhea x 6 mos. Watery? +fluctuance Alejo denies constipation. Alejo notes a change in bowel habits. Alejo denies melena. Alejo denies bright red blood per rectum. Alejo notes hemorrhoids. Alejo notes heartburn- using Tums in excess. Alejo denies dysphagia. Alejo denies a history of ulcers/ peptic ulcer disease. +intermittent nausea Denies family history of colon issues. Alejo has a hx of CAD with stents from 2007. Last stress test 2022 EF of 53%. Alejo follows with [facility] had elective cath 06/2023 due to positive stress test. 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 Currently takes plavix. Follows with Dr. Petersen at [facility]. Last OV 07/2023 Alejo has a hx of Alzheimers dementia Alejo has undergone prior endoscopy. 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 Normal [facility] PANC ELASTASE, FECALon 05-23 ELASTASE INTERPRETATION Normal Normal Normal [facility] Comment on above: Order Comment: Speci men Type: STOOL SPECIMENOrdering Facility: [facility] Address: [address] [place] [address] Performed By: #### P ANCEF, 16004-8, 72945-9 ####[facility] [id number] [place] [address] [place] ELASTASE-1 CONCENTRATION 308 ug/g Normal >=200 [facility] Comment on above: Order Comment: Speci men Type: STOOL SPECIMENOrdering Facility: [facility] Address: [address] [place] [address] Result Comment: Inte rpretation: <100 ug/g: Severe Exocrine Pancreatic Insufficiency 100-199 ug/g: Mild to Moderate Exocrine Pancreatic Insufficiency >=200 ug/g: Normal Performed By: #### P ANCEF, 65879-8, 97630-5 ####[facility] [id number] [place] [address] [place] SURGICAL PATHOLOGYon 024 CASE REPORT Normal [facility] Comment on above: Order Comment: Speci men Type: TISSUE SPECIMEN Ordering Facility: [facility] Address: [address] [place] [address] Result Comment: [facility] Report Case: [id number] Authorizing Provider: Malu Mendoza MD Collected: 05/23/2024 01:42 PM Ordering Location: [facility] Endoscopy Received: 05/23/2024 03:08 PM Pathologist: Hari Umaña MD Specimens: A) - Small Bowel, Duodenum, Biopsy, sprue B) - Stomach, Biopsy, hp C) - Colon, Biopsy, random Performed By: #### S #### [facility] CLIA [id number] [address] [place] [address] [place] CLINICAL HISTORY A. Normal [facility] Comment on above: Order Comment: Speci men Type: TISSUE SPECIMEN Ordering Facility: [facility] Address: [address] [place] [address] Performed By: #### S #### [facility] CLIA [id number] [address] [place] [address] [place] FINAL DIAGNOSIS [facility] Comment on above: Order Comment: Speci men Type: TISSUE SPECIMEN Ordering Facility: [facility] Address: [address] [place] [address] Result Comment: ABonnie Delarosa uodenum, biopsy: -Small intestinal mucosa with no diagnostic alteration -No evidence of celiac disease B. Stomach, biopsy: -Antral mucosa with no diagnostic alteration -No morphologic evidence of Helicobacter pylori C. Random colon, biopsy: -Collagenous colitis Performed By: #### S #### [facility] CLIA [id number] [address] [place] [address] OF [facility] FINAL PERFORMING LAB [facility] [place] [facility] Comment on above: Order Comment: Speci men Type: TISSUE SPECIMEN Ordering Facility: [facility] Address: [address] [place] [address] Result Comment: Diag nostic interpretation performed at [facility], [address] [place] [address] CLIA# [id number] [employer] Professional: Jose Guadalupe Herrera M.D. Performed By: #### S #### [facility] CLIA [id number] [address] [place] [address] OF [facility] GROSS DESCRIPTION [facility] Comment on above: Order Comment: Speci men Type: TISSUE SPECIMEN Ordering Facility: [facility] Address: [address] [place] [address] Result Comment: A. S mall Bowel, Duodenum, [...] 0.2 cm. Totally submitted in two cassettes. [facility] May 23, 2024 8:21 PM [place] [address] Performed By: #### S #### [facility] CLIA [id number] [address] [place], [place] [address] [address] [place] Upper GI endoscopyon 10-23-2 024 Upper GI endoscopy [facility] Gastrointestinal Endoscopy Patient Name: Alejo Gage Procedure Date: 05/23/2024 1:23 PM Date of : 1940 Admit Type: Outpatient Age: 83 Room: [facility] Gender: Male Note Status: Finalized Attending MD: Malu Mendoza MD, [id number] Procedure: Upper GI endoscopy Indications: Abdominal pain [...] anesthesia care under the supervision of a TESTER OPERATOR HELPER was determined to be medically necessary for [...] future endoscopies Procedure Code(s): --- Professional --- 24225, Esophagogastroduodenoscopy , flexible, transoral; with biopsy, single or multiple Diagnosis Code(s): --- Professional --- R10.12, Left upper quadrant pain K44.9, Diaphragmatic hernia without obstruction or gangrene K31.89, Other diseases of stomach and duodenum CPT copyright 2020 [employer]. All rights reserved. The codes documented in this report are preliminary and upon silver miner review may be revised to meet current compliance requirements. Attending Participation: I personally performed the entire procedure. Scope In: 1:39:11 PM Scope Out: 1:43:56 PM MD Malu Huston MD 05/23/2024 1:46:49 PM This report has been signed electronically by Malu Mendoza MD Number of Addenda: 0 Note Initiated On: 05/23/2024 1:23 PM Estimated Blood Loss: Estimated blood loss was minimal. Normal [facility] .Auto Diffon 05-28-2023 Basophil, Absolute 0.0 10 3/mcL Normal 0.0-0.3 [facility] ([place]) Comment on above: Performed By: #### A DIFF, ANEU, GFR, BMP, CBC #### [address] [address] Basophils/100 WBC (Bld) 0.2 % Normal 0.0-2.5 [facility] ([place]) Comment on above: Performed By: #### A DIFF, ANEU, GFR, BMP, CBC #### [address] [address] Eosinophil, Absolute 0.1 10 3/mcL Normal 0.0-0.7 [facility] ([place]) Comment on above: Performed By: #### A DIFF, ANEU, GFR, BMP, CBC #### [address] [address] Eosinophils/100 WBC (Bld) 0.7 % Normal 0.0-6.0 [facility] ([place]) Comment on above: Performed By: #### A DIFF, ANEU, GFR, BMP, CBC #### [address] [address] Lymphocyte, Absolute 1.8 10 3/mcL Normal 0.9-4.3 [facility] ([place]) Comment on above: Performed By: #### A DIFF, ANEU, GFR, BMP, CBC #### [address] [address] Lymphocytes/100 WBC (Bld) 14.6 % Low 20.0-40.0 [facility] ([place]) Comment on above: Performed By: #### A DIFF, ANEU, GFR, BMP, CBC #### [address] [address] Monocyte, Absolute 1.1 10 3/mcL Normal 0.1-1.4 [facility] ([place]) Comment on above: Performed By: #### A DIFF, ANEU, GFR, BMP, CBC #### [address] [address] Monocytes/100 WBC (Bld) 9.6 % Normal 2.0-13.0 [facility] ([place]) Comment on above: Performed By: #### A DIFF, ANEU, GFR, BMP, CBC #### [address] [address] Neutrophils/100 WBC (Bld) 74.9 % Normal 50.0-75.0 [facility] ([place]) Comment on above: Performed By: #### A DIFF, ANEU, GFR, BMP, CBC #### [address] [address] .GFRon 05-28-2023 GFR Non- 38 ml/min/1.73sqm Normal [facility] ([place]) Comment on above: Result Comment: GFR [...] A DIFF, ANEU, GFR, BMP, CBC #### [address] [address] GFR 46 ml/min/1.73sqm Normal [facility] ([place]) Comment on above: Result Comment: GFR Population [...] A DIFF, ANEU, GFR, BMP, CBC #### [address] [address] .NEUABSon 05-28-2023 Neutrophil, Absolute 9.0 10 3/mcL High 2.3-8.1 [facility] ([place]) Comment on above: Performed By: #### A DIFF, ANEU, GFR, BMP, CBC #### [address] [address] BMPon 05-28-2023 BUN/Creatinine Ratio 12.6 ratio Normal 10.0-22.0 [facility] ([place]) Comment on above: Performed By: #### A DIFF, ANEU, GFR, BMP, CBC #### [address] [address] Calcium [Mass/Vol] 8.4 mg/dL Low 8.7-10.4 [facility] ([place]) Comment on above: Performed By: #### A DIFF, ANEU, GFR, BMP, CBC #### [address] [address] Chloride [Moles/Vol] 111 mmol/L High 98-110 [facility] ([place]) Comment on above: Performed By: #### A DIFF, ANEU, GFR, BMP, CBC #### [address] [address] CO2 [Moles/Vol] 27 mmol/L Normal 22-32 [facility] ([place]) Comment on above: Performed By: #### A DIFF, ANEU, GFR, BMP, CBC #### [address] [address] Creatinine [Mass/Vol] 1.75 mg/dL High 0.60-1.40 [facility] ([place]) Comment on above: Performed By: #### A DIFF, ANEU, GFR, BMP, CBC #### [address] [address] Electrolyte Balance 5.0 mEq/L Normal 4.0-15.0 [facility] ([place]) Comment on above: Performed By: #### A DIFF, ANEU, GFR, BMP, CBC #### [address] [address] Glucose [Mass/Vol] 121 mg/dL High 82-115 [facility] ([place]) Comment on above: Performed By: #### A DIFF, ANEU, GFR, BMP, CBC #### [address] [address] Potassium [Moles/Vol] 4.2 mmol/L Normal 3.5-5.0 [facility] ([place]) Comment on above: Performed By: #### A DIFF, ANEU, GFR, BMP, CBC #### [address] [address] Sodium [Moles/Vol] 143 mmol/L Normal 136-145 [facility] ([place]) Comment on above: Performed By: #### A DIFF, ANEU, GFR, BMP, CBC #### [place] [id number] Urea nitrogen [Mass/Vol] 22.0 mg/dL Normal 8.0-22.0 [facility] ([place]) Comment on above: Performed By: #### A DIFF, ANEU, GFR, BMP, CBC #### [place] [address] CBCon 05-28-2023 Erythrocyte distribution width (RBC) [Ratio] 14.9 % Normal 11.5-15.5 [facility] ([place]) Comment on above: Performed By: #### A DIFF, ANEU, GFR, BMP, CBC #### [place] [address] Hematocrit (Bld) [Volume fraction] 27.7 % Low 40.0-52.0 [facility] ([place]) Comment on above: Performed By: #### A DIFF, ANEU, GFR, BMP, CBC #### [place] [address] Hgb 9.0 G/dL Low 13.0-17.5 [facility] ([place]) Comment on above: Performed By: #### A DIFF, ANEU, GFR, BMP, CBC #### [place] [address] MCH (RBC) [Entitic mass] 29.0 pg Normal 27.0-33.0 [facility] ([place]) Comment on above: Performed By: #### A DIFF, ANEU, GFR, BMP, CBC #### [place] [address] MCHC 32.6 G/dL Normal 32.0-36.0 [facility] ([place]) Comment on above: Performed By: #### A DIFF, ANEU, GFR, BMP, CBC #### [place] [address] MCV (RBC) [Entitic vol] 89.2 fL Normal 81.0-100.0 [facility] ([place]) Comment on above: Performed By: #### A DIFF, ANEU, GFR, BMP, CBC #### [place] [address] Platelet 205 10 3/mcL Normal 150-450 [facility] ([place]) Comment on above: Performed By: #### A DIFF, ANEU, GFR, BMP, CBC #### [place] [address] Platelet mean volume (Bld) [Entitic vol] 8.1 fL Normal 6.4-10.5 [facility] ([place]) Comment on above: Performed By: #### A DIFF, ANEU, GFR, BMP, CBC #### [place] [address] RBC 3.11 10 6/mcL Low 4.50-6.00 [facility] ([place]) Comment on above: Performed By: #### A DIFF, ANEU, GFR, BMP, CBC #### [place] [address] WBC 12.0 10 3/mcL High 4.5-10.8 [facility] ([place]) Comment on above: Performed By: #### A DIFF, ANEU, GFR, BMP, CBC #### [place] [address] LABORATORYOrdered By: SYSTEM SYSTEM on 05-28-2023 Basophils (Bld) [#/Vol] 0.0 103/mcL Invalid Interpretation Code 0.0 - 0.3 10^3/mcL Workflow SS Basophils/100 WBC (Bld) 0.2 % Invalid Interpretation Code 0.0 - 2.5 % Workflow SS Calcium [Mass/Vol] 8.4 mg/dL Invalid [...] Interpretation Code 0.0 - 6.0 % Workflow Erythrocyte distribution width (RBC) [Ratio] 14.9 % Invalid Interpretation Code 11.5 - 15.5 % Workflow GFR/1.73 sq M.predicted among blacks MDRD (S/P/Bld) [Vol rate/Area] 46 ml/min/1.73sqm Invalid Interpretation Code [facility] Comment on above: Interpretive Data: GFR [...] [Vol rate/Area] 38 ml/min/1.73sqm Invalid Interpretation Code [facility] Comment on above: Interpretive Data: GFR [...] Invalid Interpretation Code 82 - 115 mg/dL [facility] Hematocrit (Bld) [Volume fraction] 27.7 % Invalid Interpretation Code 40.0 - 52.0 % Workflow Hemoglobin (Bld) [Mass/Vol] 9.0 G/dL Invalid Interpretation Code 13.0 - 17.5 G/dL AH Workflow SS Lymphocytes (Bld) [#/Vol] 1.8 103/mcL Invalid Interpretation Code 0.9 - 4.3 10^3/mcL AH Workflow SS Lymphocytes/100 WBC (Bld) 14.6 % Invalid Interpretation Code 20.0 - 40.0 % AH Workflow SS Magnesium [Mass/Vol] 1.8 mg/dL Invalid Interpretation Code 1.6 - 2.4 mg/dL AH ADM SS MCH (RBC) [Entitic mass] 29.0 [...] Invalid Interpretation Code 50.0 - 75.0 % Workflow SS Platelet mean volume (Bld) [Entitic vol] 8.1 fL Invalid Interpretation Code 6.4 - 10.5 fL AH Workflow SS Platelets (Bld) [#/Vol] 205 103/mcL Invalid Interpretation Code 150 - 450 10^3/mcL AH Workflow SS Potassium [Moles/Vol] 4.2 mmol/L Invalid Interpretation Code 3.5 - 5.0 mEq/L AH ADM SS RBC (Bld) [#/Vol] 3.11 106/mcL Invalid Interpretation Code 4.50 - 6.00 10^6/mcL AH Workflow SS Sodium [Moles/Vol] 143 mmol/L Invalid Interpretation Code 136 - 145 mEq/L ADM SS Urea nitrogen [Mass/Vol] 22.0 mg/dL Invalid Interpretation Code 8.0 - 22.0 mg/dL AH ADM SS Urea nitrogen/Creatinine [Mass ratio] 12.6 ratio Invalid Interpretation Code 10.0 - 22.0 ratio AH ADM SS WBC (Bld) [#/Vol] 12.0 103/mcL Invalid Interpretation Code 4.5 - 10.8 10^3/mcL AH Workflow SS MGon 05-28-2023 Magnesium [Mass/Vol] 1.8 mg/dL Normal 1.6-2.4 [facility] ([place]) Comment on above: Performed By: #### A DIFF, ANEU, GFR, BMP, CBC #### [address] [address] .Auto Diffon 05-27-2023 Basophil, Absolute 0.0 10 3/mcL Normal 0.0-0.3 [facility] ([place]) Comment on above: Performed By: #### M G, ADIFF, BMP, GFR, ANEU, CBC #### [address] [address] Basophils/100 WBC (Bld) 0.2 % Normal 0.0-2.5 [facility] ([place]) Comment on above: Performed By: #### M G, ADIFF, BMP, GFR, ANEU, CBC #### [address] [address] Eosinophil, Absolute 0.3 10 3/mcL Normal 0.0-0.7 [facility] ([place]) Comment on above: Performed By: #### M G, ADIFF, BMP, GFR, ANEU, CBC #### [address] [address] Eosinophils/100 WBC (Bld) 2.4 % Normal 0.0-6.0 [facility] ([place]) Comment on above: Performed By: #### M G, ADIFF, BMP, GFR, ANEU, CBC #### [address] [address] Lymphocyte, Absolute 2.5 10 3/mcL Normal 0.9-4.3 [facility] ([place]) Comment on above: Performed By: #### M G, ADIFF, BMP, GFR, ANEU, CBC #### [address] [address] Lymphocytes/100 WBC (Bld) 23.0 % Normal 20.0-40.0 [facility] ([place]) Comment on above: Performed By: #### M G, ADIFF, BMP, GFR, ANEU, CBC #### [address] [address] Monocyte, Absolute 1.0 10 3/mcL Normal 0.1-1.4 [facility] ([place]) Comment on above: Performed By: #### M G, ADIFF, BMP, GFR, ANEU, CBC #### [address] [address] Monocytes/100 WBC (Bld) 9.2 % Normal 2.0-13.0 [facility] ([place]) Comment on above: Performed By: #### M G, ADIFF, BMP, GFR, ANEU, CBC #### [address] [address] Neutrophils/100 WBC (Bld) 65.2 % Normal 50.0-75.0 [facility] ([place]) Comment on above: Performed By: #### M G, ADIFF, BMP, GFR, ANEU, CBC #### [address] [address] .GFRon 05-27-2023 GFR 40 ml/min/1.73sqm Normal [facility] ([place]) Comment on above: Result Comment: GFR Population [...] A DIFF, ANEU, GFR, BMP, CBC #### [address] [address] GFR Non- 33 ml/min/1.73sqm Normal [facility] ([place]) Comment on above: Result Comment: GFR Population [...] A DIFF, ANEU, GFR, BMP, CBC #### [address] [address] .NEUABSon 05-27-2023 Neutrophil, Absolute 7.2 10 3/mcL Normal 2.3-8.1 [facility] ([place]) Comment on above: Performed By: #### M G ADIFF, BMP, GFR, ANEU, CBC #### [address] [address] BMPon 05-27-2023 BUN/Creatinine Ratio 11.3 ratio Normal 10.0-22.0 [facility] ([place]) Comment on above: Performed By: #### A DIFF, ANEU, GFR, BMP, CBC #### [address] [address] Calcium [Mass/Vol] 8.6 mg/dL Low 8.7-10.4 [facility] ([place]) Comment on above: Performed By: #### A DIFF, ANEU, GFR, BMP, CBC #### [address] [address] Chloride [Moles/Vol] 110 mmol/L Normal 98-110 [facility] ([place]) Comment on above: Performed By: #### A DIFF, ANEU, GFR, BMP, CBC #### [address] [address] CO2 [Moles/Vol] 30 mmol/L Normal 22-32 [facility] ([place]) Comment on above: Performed By: #### A DIFF, ANEU, GFR, BMP, CBC #### [address] [address] Creatinine [Mass/Vol] 1.94 mg/dL High 0.60-1.40 [facility] ([place]) Comment on above: Performed By: #### A DIFF, ANEU, GFR, BMP, CBC #### [address] [address] Electrolyte Balance 2.0 mEq/L Low 4.0-15.0 [facility] ([place]) Comment on above: Performed By: #### A DIFF, ANEU, GFR, BMP, CBC #### [address] [address] Glucose [Mass/Vol] 105 mg/dL Normal 82-115 [facility] ([place]) Comment on above: Performed By: #### A DIFF, ANEU, GFR, BMP, CBC #### [address] [address] Potassium [Moles/Vol] 4.1 mmol/L Normal 3.5-5.0 [facility] ([place]) Comment on above: Performed By: #### A DIFF, ANEU, GFR, BMP, CBC #### [address] [address] Sodium [Moles/Vol] 142 mmol/L Normal 136-145 [facility] ([place]) Comment on above: Performed By: #### A DIFF, ANEU, GFR, BMP, CBC #### [address] [address] Urea nitrogen [Mass/Vol] 22.0 mg/dL Normal 8.0-22.0 [facility] ([place]) Comment on above: Performed By: #### A DIFF, ANEU, GFR, BMP, CBC #### [address] [address] CBCon 05-27-2023 Erythrocyte distribution width (RBC) [Ratio] 15.4 % Normal 11.5-15.5 [facility] ([place]) Comment on above: Performed By: #### M G, ADIFF, BMP, GFR, ANEU, CBC #### [place] [address] Hematocrit (Bld) [Volume fraction] 33.3 % Low 40.0-52.0 [facility] ([place]) Comment on above: Performed By: #### M G, ADIFF, BMP, GFR, ANEU, CBC #### [place] [address] Hgb 10.9 G/dL Low 13.0-17.5 [facility] ([place]) Comment on above: Performed By: #### M G, ADIFF, BMP, GFR, ANEU, CBC #### [place] [address] MCH (RBC) [Entitic mass] 29.2 pg Normal 27.0-33.0 [facility] ([place]) Comment on above: Performed By: #### M G, ADIFF, BMP, GFR, ANEU, CBC #### [place] [address] MCHC 32.6 G/dL Normal 32.0-36.0 [facility] ([place]) Comment on above: Performed By: #### M G, ADIFF, BMP, GFR, ANEU, CBC #### [place] [address] MCV (RBC) [Entitic vol] 89.6 fL Normal 81.0-100.0 [facility] ([place]) Comment on above: Performed By: #### M G, ADIFF, BMP, GFR, ANEU, CBC #### [place] [address] Platelet 228 10 3/mcL Normal 150-450 [facility] ([place]) Comment on above: Performed By: #### M G, ADIFF, BMP, GFR, ANEU, CBC #### [place] [address] Platelet mean volume (Bld) [Entitic vol] 7.9 fL Normal 6.4-10.5 [facility] ([place]) Comment on above: Performed By: #### M G, ADIFF, BMP, GFR, ANEU, CBC #### [place] [address] RBC 3.72 10 6/mcL Low 4.50-6.00 [facility] ([place]) Comment on above: Performed By: #### M G, ADIFF, BMP, GFR, ANEU, CBC #### [address] [address] WBC 11.1 10 3/mcL High 4.5-10.8 [facility] ([place]) Comment on above: Performed By: #### M G, ADIFF, BMP, GFR, ANEU, CBC #### [place] [id number] [address] [place] [address] LABORATORYOrdered By: Milena Mccain on 05-27-2023 Cholesterol [...] [Vol rate/Area] 40 ml/min/1.73sqm Invalid Interpretation Code [facility] Comment on above: Interpretive Data: GFR [...] [Vol rate/Area] 33 ml/min/1.73sqm Invalid Interpretation Code [facility] Comment on above: Interpretive Data: GFR [...] Invalid Interpretation Code 82 - 115 mg/dL [facility] Hematocrit (Bld) [Volume fraction] 33.3 % [...] 05-27-2023 Cholesterol [Mass/Vol] 163 mg/dL Normal 50-199 [facility] ([place]) Comment on above: Order Comment: add t o existing specimen Result Comment: Chol esterol Reference Interval: Less than 200 Desirable 200-239 Borderline high risk 240 and above High risk Performed By: #### L IPID #### [address] [address] Cholesterol in HDL [Mass/Vol] 31 mg/dL Low 40-59 [facility] ([place]) Comment on above: Order Comment: add t o existing specimen Performed By: #### L IPID #### [address] [address] Cholesterol in LDL [Mass/Vol] 100 mg/dL Normal 0-129 [facility] ([place]) Comment on above: Order Comment: add t o existing specimen Performed By: #### L IPID #### [address] [id number] Triglyceride [Mass/Vol] 160 mg/dL High 3-149 [facility] ([place]) Comment on above: Order Comment: add t o existing specimen Performed By: #### L IPID #### [address] [address] MGon 05-27-2023 Magnesium [Mass/Vol] 2.1 mg/dL Normal 1.6-2.4 [facility] ([place]) Comment on above: Performed By: #### A DIFF, ANEU, GFR, BMP, CBC #### [address] [address] .Auto Diffon 05-26-2023 Basophil, Absolute 0.0 10 3/mcL Normal 0.0-0.3 [facility] ([place]) Comment on above: Performed By: #### A DIFF, ANEU, GFR, BMP, CBC #### [address] [address] Basophils/100 WBC (Bld) 0.3 % Normal 0.0-2.5 [facility] ([place]) Comment on above: Performed By: #### A DIFF, ANEU, GFR, BMP, CBC #### [address] [address] Eosinophil, Absolute 0.2 10 3/mcL Normal 0.0-0.7 [facility] ([place]) Comment on above: Performed By: #### A DIFF, ANEU, GFR, BMP, CBC #### [address] [address] Eosinophils/100 WBC (Bld) 2.0 % Normal 0.0-6.0 [facility] ([place]) Comment on above: Performed By: #### A DIFF, ANEU, GFR, BMP, CBC #### [address] [address] Lymphocyte, Absolute 1.7 10 3/mcL Normal 0.9-4.3 [facility] ([place]) Comment on above: Performed By: #### A DIFF, ANEU, GFR, BMP, CBC #### [address] [address] Lymphocytes/100 WBC (Bld) 18.5 % Low 20.0-40.0 [facility] ([place]) Comment on above: Performed By: #### A DIFF, ANEU, GFR, BMP, CBC #### [address] [address] Monocyte, Absolute 0.9 10 3/mcL Normal 0.1-1.4 [facility] ([place]) Comment on above: Performed By: #### A DIFF, ANEU, GFR, BMP, CBC #### [address] [address] Monocytes/100 WBC (Bld) 9.5 % Normal 2.0-13.0 [facility] ([place]) Comment on above: Performed By: #### A DIFF, ANEU, GFR, BMP, CBC #### [address] [address] Neutrophils/100 WBC (Bld) 69.7 % Normal 50.0-75.0 [facility] ([place]) Comment on above: Performed By: #### A DIFF, ANEU, GFR, BMP, CBC #### [address] [address] .GFRon 05-26-2023 GFR 38 ml/min/1.73sqm Normal [facility] ([place]) Comment on above: Result Comment: GFR Population [...] A DIFF, ANEU, GFR, BMP, CBC #### [place] [address] GFR Non- 32 ml/min/1.73sqm Normal [facility] ([place]) Comment on above: Result Comment: GFR Population [...] A DIFF, ANEU, GFR, BMP, CBC #### [address] [address] .NEUABSon 05-26-2023 Neutrophil, Absolute 6.3 10 3/mcL Normal 2.3-8.1 [facility] ([place]) Comment on above: Performed By: #### A DIFF, ANEU, GFR, BMP, CBC #### [address] [address] BMPon 05-26-2023 BUN/Creatinine Ratio 12.3 ratio Normal 10.0-22.0 [facility] ([place]) Comment on above: Performed By: #### A DIFF, ANEU, GFR, BMP, CBC #### [place] [address] Calcium [Mass/Vol] 8.7 mg/dL Normal 8.7-10.4 [facility] ([place]) Comment on above: Performed By: #### A DIFF, ANEU, GFR, BMP, CBC #### [place] [address] Chloride [Moles/Vol] 109 mmol/L Normal 98-110 [facility] ([place]) Comment on above: Performed By: #### A DIFF, ANEU, GFR, BMP, CBC #### [place] [address] CO2 [Moles/Vol] 30 mmol/L Normal 22-32 [facility] ([place]) Comment on above: Performed By: #### A DIFF, ANEU, GFR, BMP, CBC #### [place] [address] Creatinine [Mass/Vol] 2.03 mg/dL High 0.60-1.40 [facility] ([place]) Comment on above: Performed By: #### A DIFF, ANEU, GFR, BMP, CBC #### [place] [address] Electrolyte Balance 2.0 mEq/L Low 4.0-15.0 [facility] ([place]) Comment on above: Performed By: #### A DIFF, ANEU, GFR, BMP, CBC #### [place] [address] Glucose [Mass/Vol] 105 mg/dL Normal 82-115 [facility] ([place]) Comment on above: Performed By: #### A DIFF, ANEU, GFR, BMP, CBC #### [place] [address] Potassium [Moles/Vol] 3.9 mmol/L Normal 3.5-5.0 [facility] ([place]) Comment on above: Result Comment: Spec imen slightly hemolyzed. Performed By: #### A DIFF, ANEU, GFR, BMP, CBC #### [place] [address] Sodium [Moles/Vol] 141 mmol/L Normal 136-145 [facility] ([place]) Comment on above: Performed By: #### A DIFF, ANEU, GFR, BMP, CBC #### [place] [address] Urea nitrogen [Mass/Vol] 25.0 mg/dL High 8.0-22.0 [facility] ([place]) Comment on above: Performed By: #### A DIFF, ANEU, GFR, BMP, CBC #### [place] [address] CBCon 05-26-2023 Erythrocyte distribution width (RBC) [Ratio] 15.1 % Normal 11.5-15.5 [facility] ([place]) Comment on above: Performed By: #### A DIFF, ANEU, GFR, BMP, CBC #### [place] [address] Hematocrit (Bld) [Volume fraction] 33.6 % Low 40.0-52.0 [facility] ([place]) Comment on above: Performed By: #### A DIFF, ANEU, GFR, BMP, CBC #### [place] [address] Hgb 11.1 G/dL Low 13.0-17.5 [facility] ([place]) Comment on above: Performed By: #### A DIFF, ANEU, GFR, BMP, CBC #### [place] [address] MCH (RBC) [Entitic mass] 29.4 pg Normal 27.0-33.0 [facility] ([place]) Comment on above: Performed By: #### A DIFF, ANEU, GFR, BMP, CBC #### [place] [address] MCHC 33.1 G/dL Normal 32.0-36.0 [facility] ([place]) Comment on above: Performed By: #### A DIFF, ANEU, GFR, BMP, CBC #### [address] [address] MCV (RBC) [Entitic vol] 88.8 fL Normal 81.0-100.0 [facility] ([place]) Comment on above: Performed By: #### A DIFF, ANEU, GFR, BMP, CBC #### [address] [address] Platelet 238 10 3/mcL Normal 150-450 [facility] ([place]) Comment on above: Performed By: #### A DIFF, ANEU, GFR, BMP, CBC #### [address] [address] Platelet mean volume (Bld) [Entitic vol] 8.0 fL Normal 6.4-10.5 [facility] ([place]) Comment on above: Performed By: #### A DIFF, ANEU, GFR, BMP, CBC #### [address] [address] RBC 3.78 10 6/mcL Low 4.50-6.00 [facility] ([place]) Comment on above: Performed By: #### A DIFF, ANEU, GFR, BMP, CBC #### [address] [address] WBC 9.0 10 3/mcL Normal 4.5-10.8 [facility] ([place]) Comment on above: Performed By: #### A DIFF, ANEU, GFR, BMP, CBC #### [address] [address] LABORATORYOrdered By: Steffi Leon on 05-26-2023 Blood Glucose Testing Reason Routine (05/26/23 9:21 PM) [facility] Work Phone: Glucose [Mass/Vol] 132 mg/dL Invalid Interpretation Code 82 - 115 mg/dL [facility] Work Phone: LABORATORYOrdered By: Stacey Jiménez on 05-26-2023 Blood Glucose Testing Reason Routine (05/26/23 4:22 PM) [facility] Work Phone: Glucose [Mass/Vol] 124 mg/dL Invalid Interpretation Code 82 - 115 mg/dL [facility] Work Phone: LABORATORYOrdered By: Jordi Claire on 05-26-2023 Glucose [Mass/Vol] 149 mg/dL Invalid Interpretation Code 82 - 115 mg/dL [facility] Work Phone: LABORATORYOrdered By: Sydnie Bundy on 05-26-2023 Blood Glucose Testing Reason Routine (05/26/23 7:07 AM) [facility] Work Phone: LABORATORYOrdered By: SYSTEM SYSTEM on 05-26-2023 Basophils (Bld) [#/Vol] 0.0 103/mcL Invalid Interpretation Code 0.0 - 0.3 10^3/mcL Workflow SS Basophils/100 WBC (Bld) 0.3 % [...] Invalid Interpretation Code 13.0 - 17.5 G/dL Workflow SS Lymphocytes (Bld) [#/Vol] 1.7 103/mcL [...] 22.0 ratio ADM SS WBC (Bld) [#/Vol] 9.0 103/mcL Invalid Interpretation Code 4.5 - 10.8 10^3/mcL Workflow SS MGon 05-26-2023 Magnesium [Mass/Vol] 1.8 mg/dL Normal 1.6-2.4 [facility] ([place]) Comment on above: Performed By: #### M G #### [address] [address] .Auto Diffon 05-25-2023 Basophil, Absolute 0.0 10 3/mcL Normal 0.0-0.3 [facility] ([place]) Comment on above: Performed By: #### A DIFF, ANEU, GFR, BMP, CBC #### [address] [address] Basophils/100 WBC (Bld) 0.4 % Normal 0.0-2.5 [facility] ([place]) Comment on above: Performed By: #### A DIFF, ANEU, GFR, BMP, CBC #### [address] [address] Eosinophil, Absolute 0.3 10 3/mcL Normal 0.0-0.7 [facility] ([place]) Comment on above: Performed By: #### A DIFF, ANEU, GFR, BMP, CBC #### [address] [address] Eosinophils/100 WBC (Bld) 3.0 % Normal 0.0-6.0 [facility] ([place]) Comment on above: Performed By: #### A DIFF, ANEU, GFR, BMP, CBC #### [address] [address] Lymphocyte, Absolute 2.6 10 3/mcL Normal 0.9-4.3 [facility] ([place]) Comment on above: Performed By: #### A DIFF, ANEU, GFR, BMP, CBC #### [address] [address] Lymphocytes/100 WBC (Bld) 28.3 % Normal 20.0-40.0 [facility] ([place]) Comment on above: Performed By: #### A DIFF, ANEU, GFR, BMP, CBC #### [address] [address] Monocyte, Absolute 0.7 10 3/mcL Normal 0.1-1.4 [facility] ([place]) Comment on above: Performed By: #### A DIFF, ANEU, GFR, BMP, CBC #### [address] [address] Monocytes/100 WBC (Bld) 7.9 % Normal 2.0-13.0 [facility] ([place]) Comment on above: Performed By: #### A DIFF, ANEU, GFR, BMP, CBC #### [address] [address] Neutrophils/100 WBC (Bld) 60.4 % Normal 50.0-75.0 [facility] ([place]) Comment on above: Performed By: #### A DIFF, ANEU, GFR, BMP, CBC #### [address] [address] Basophil, Absolute 0.1 10 3/mcL Normal 0.0-0.3 [facility] ([place]) Comment on above: Performed By: #### A DIFF, ANEU, GFR, BMP, CBC #### [address] [address] Basophils/100 WBC (Bld) 0.7 % Normal 0.0-2.5 [facility] ([place]) Comment on above: Performed By: #### A DIFF, ANEU, GFR, BMP, CBC #### [address] [address] Eosinophil, Absolute 0.3 10 3/mcL Normal 0.0-0.7 [facility] ([place]) Comment on above: Performed By: #### A DIFF, ANEU, GFR, BMP, CBC #### [address] [address] Eosinophils/100 WBC (Bld) 2.8 % Normal 0.0-6.0 [facility] ([place]) Comment on above: Performed By: #### A DIFF, ANEU, GFR, BMP, CBC #### [address] [address] Lymphocyte, Absolute 2.1 10 3/mcL Normal 0.9-4.3 [facility] ([place]) Comment on above: Performed By: #### A DIFF, ANEU, GFR, BMP, CBC #### [address] [address] Lymphocytes/100 WBC (Bld) 21.3 % Normal 20.0-40.0 [facility] ([place]) Comment on above: Performed By: #### A DIFF, ANEU, GFR, BMP, CBC #### [address] [address] Monocyte, Absolute 0.7 10 3/mcL Normal 0.1-1.4 [facility] ([place]) Comment on above: Performed By: #### A DIFF, ANEU, GFR, BMP, CBC #### [address] [address] Monocytes/100 WBC (Bld) 7.7 % Normal 2.0-13.0 [facility] ([place]) Comment on above: Performed By: #### A DIFF, ANEU, GFR, BMP, CBC #### [address] [address] Neutrophils/100 WBC (Bld) 67.5 % Normal 50.0-75.0 [facility] ([place]) Comment on above: Performed By: #### A DIFF, ANEU, GFR, BMP, CBC #### [address] [address] .GFRon 05-25-2023 GFR Non- 31 ml/min/1.73sqm Normal [facility] ([place]) Comment on above: Result Comment: GFR Population [...] A DIFF, ANEU, GFR, BMP, CBC #### [address] [address] GFR 38 ml/min/1.73sqm Normal [facility] ([place]) Comment on above: Result Comment: GFR Population [...] A DIFF, ANEU, GFR, BMP, CBC #### [address] [address] GFR 36 ml/min/1.73sqm Normal [facility] ([place]) Comment on above: Result Comment: GFR Population [...] A DIFF, ANEU, GFR, BMP, CBC #### [address] [address] GFR Non- 30 ml/min/1.73sqm Normal [facility] ([place]) Comment on above: Result Comment: GFR Population [...] A DIFF, ANEU, GFR, BMP, CBC #### [address] [address] .NEUABSon 05-25-2023 Neutrophil, Absolute 5.7 10 3/mcL Normal 2.3-8.1 [facility] ([place]) Comment on above: Performed By: #### A DIFF, ANEU, GFR, BMP, CBC #### [place] [address] Neutrophil, Absolute 6.5 10 3/mcL Normal 2.3-8.1 [facility] ([place]) Comment on above: Performed By: #### A DIFF, ANEU, GFR, BMP, CBC #### [address] [address] BMPon 05-25-2023 BUN/Creatinine Ratio 11.6 ratio Normal 10.0-22.0 [facility] ([place]) Comment on above: Performed By: #### A DIFF, ANEU, GFR, BMP, CBC #### [place] [address] Calcium [Mass/Vol] 9.6 mg/dL Normal 8.7-10.4 [facility] ([place]) Comment on above: Performed By: #### A DIFF, ANEU, GFR, BMP, CBC #### [address] [address] Chloride [Moles/Vol] 105 mmol/L Normal 98-110 [facility] ([place]) Comment on above: Performed By: #### A DIFF, ANEU, GFR, BMP, CBC #### [place] [address] CO2 [Moles/Vol] 31 mmol/L Normal 22-32 [facility] ([place]) Comment on above: Performed By: #### A DIFF, ANEU, GFR, BMP, CBC #### [place] [address] Creatinine [Mass/Vol] 2.07 mg/dL High 0.60-1.40 [facility] ([place]) Comment on above: Performed By: #### A DIFF, ANEU, GFR, BMP, CBC #### [place] [address] Electrolyte Balance 6.0 mEq/L Normal 4.0-15.0 [facility] ([place]) Comment on above: Performed By: #### A DIFF, ANEU, GFR, BMP, CBC #### [place] [id number] Glucose [Mass/Vol] 100 mg/dL Normal 82-115 [facility] ([place]) Comment on above: Performed By: #### A DIFF, ANEU, GFR, BMP, CBC #### [place] [address] Potassium [Moles/Vol] 3.6 mmol/L Normal 3.5-5.0 [facility] ([place]) Comment on above: Performed By: #### A DIFF, ANEU, GFR, BMP, CBC #### [place] [address] Sodium [Moles/Vol] 142 mmol/L Normal 136-145 [facility] ([place]) Comment on above: Performed By: #### A DIFF, ANEU, GFR, BMP, CBC #### [place] [id number] Urea nitrogen [Mass/Vol] 24.0 mg/dL High 8.0-22.0 [facility] ([place]) Comment on above: Performed By: #### A DIFF, ANEU, GFR, BMP, CBC #### [address] [address] CBCon 05-25-2023 Erythrocyte distribution width (RBC) [Ratio] 14.8 % Normal 11.5-15.5 [facility] ([place]) Comment on above: Performed By: #### A DIFF, ANEU, GFR, BMP, CBC #### [address] [address] Hematocrit (Bld) [Volume fraction] 33.2 % Low 40.0-52.0 [facility] ([place]) Comment on above: Performed By: #### A DIFF, ANEU, GFR, BMP, CBC #### [place] [address] Hgb 11.0 G/dL Low 13.0-17.5 [facility] ([place]) Comment on above: Performed By: #### A DIFF, ANEU, GFR, BMP, CBC #### [place] [address] MCH (RBC) [Entitic mass] 29.4 pg Normal 27.0-33.0 [facility] ([place]) Comment on above: Performed By: #### A DIFF, ANEU, GFR, BMP, CBC #### [place] [address] MCHC 33.2 G/dL Normal 32.0-36.0 [facility] ([place]) Comment on above: Performed By: #### A DIFF, ANEU, GFR, BMP, CBC #### [place] [address] MCV (RBC) [Entitic vol] 88.7 fL Normal 81.0-100.0 [facility] ([place]) Comment on above: Performed By: #### A DIFF, ANEU, GFR, BMP, CBC #### [place] [address] Platelet 234 10 3/mcL Normal 150-450 [facility] ([place]) Comment on above: Performed By: #### A DIFF, ANEU, GFR, BMP, CBC #### [place] [address] Platelet mean volume (Bld) [Entitic vol] 7.9 fL Normal 6.4-10.5 [facility] ([place]) Comment on above: Performed By: #### A DIFF, ANEU, GFR, BMP, CBC #### [place] [address] RBC 3.74 10 6/mcL Low 4.50-6.00 [facility] ([place]) Comment on above: Performed By: #### A DIFF, ANEU, GFR, BMP, CBC #### [place] [address] WBC 9.4 10 3/mcL Normal 4.5-10.8 [facility] ([place]) Comment on above: Performed By: #### A DIFF, ANEU, GFR, BMP, CBC #### [place] [address] Erythrocyte distribution width (RBC) [Ratio] 15.0 % Normal 11.5-15.5 [facility] ([place]) Comment on above: Performed By: #### A DIFF, ANEU, GFR, BMP, CBC #### [place] [address] Hematocrit (Bld) [Volume fraction] 34.9 % Low 40.0-52.0 [facility] ([place]) Comment on above: Performed By: #### A DIFF, ANEU, GFR, BMP, CBC #### [place] [address] Hgb 11.4 G/dL Low 13.0-17.5 [facility] ([place]) Comment on above: Performed By: #### A DIFF, ANEU, GFR, BMP, CBC #### [place] [address] MCH (RBC) [Entitic mass] 29.3 pg Normal 27.0-33.0 [facility] ([place]) Comment on above: Performed By: #### A DIFF, ANEU, GFR, BMP, CBC #### [place] [address] MCHC 32.8 G/dL Normal 32.0-36.0 [facility] ([place]) Comment on above: Performed By: #### A DIFF, ANEU, GFR, BMP, CBC #### [place] [address] MCV (RBC) [Entitic vol] 89.3 fL Normal 81.0-100.0 [facility] ([place]) Comment on above: Performed By: #### A DIFF, ANEU, GFR, BMP, CBC #### [place] [address] Platelet 253 10 3/mcL Normal 150-450 [facility] ([place]) Comment on above: Performed By: #### A DIFF, ANEU, GFR, BMP, CBC #### [place] [address] Platelet mean volume (Bld) [Entitic vol] 7.5 fL Normal 6.4-10.5 [facility] ([place]) Comment on above: Performed By: #### A DIFF, ANEU, GFR, BMP, CBC #### [place] [address] RBC 3.90 10 6/mcL Low 4.50-6.00 [facility] ([place]) Comment on above: Performed By: #### A DIFF, ANEU, GFR, BMP, CBC #### [place] [address] WBC 9.7 10 3/mcL Normal 4.5-10.8 [facility] ([place]) Comment on above: Performed By: #### A DIFF, ANEU, GFR, BMP, CBC #### [place] [address] CMPon 05-25-2023 Albumin Level 3.5 G/dL Normal 3.2-4.8 [facility] ([place]) Comment on above: Performed By: #### A DIFF, ANEU, GFR, BMP, CBC #### [place] [address] Albumin/Globulin [Mass ratio] 1.1 {ratio} Normal 0.9-1.6 [facility] ([place]) Comment on above: Performed By: #### A DIFF, ANEU, GFR, BMP, CBC #### [place] [id number] ALP [Catalytic activity/Vol] 115 U/L Normal 38-126 [facility] ([place]) Comment on above: Performed By: #### A DIFF, ANEU, GFR, BMP, CBC #### [place] [address] ALT [Catalytic activity/Vol] 8 U/L Low 12-55 [facility] ([place]) Comment on above: Performed By: #### A DIFF, ANEU, GFR, BMP, CBC #### [place] [address] AST [Catalytic activity/Vol] 17 U/L Normal 8-34 [facility] ([place]) Comment on above: Performed By: #### A DIFF, ANEU, GFR, BMP, CBC #### [address] [address] Bili Total 0.30 mg/dL Normal 0.20-1.20 [facility] ([place]) Comment on above: Result Comment: Use of this assay is not recommended for patients undergoing treatment with eltrombopag due to the potential for falsely elevated results. Performed By: #### A DIFF, ANEU, GFR, BMP, CBC #### [address] [address] BUN/Creatinine Ratio 11.7 ratio Normal 10.0-22.0 [facility] ([place]) Comment on above: Performed By: #### A DIFF, ANEU, GFR, BMP, CBC #### [address] [address] Calcium [Mass/Vol] 9.4 mg/dL Normal 8.7-10.4 [facility] ([place]) Comment on above: Performed By: #### A DIFF, ANEU, GFR, BMP, CBC #### [address] [address] Chloride [Moles/Vol] 105 mmol/L Normal 98-110 [facility] ([place]) Comment on above: Performed By: #### A DIFF, ANEU, GFR, BMP, CBC #### [address] [address] CO2 [Moles/Vol] 29 mmol/L Normal 22-32 [facility] ([place]) Comment on above: Performed By: #### A DIFF, ANEU, GFR, BMP, CBC #### [address] [address] Creatinine [Mass/Vol] 2.13 mg/dL High 0.60-1.40 [facility] ([place]) Comment on above: Performed By: #### A DIFF, ANEU, GFR, BMP, CBC #### [address] [address] Electrolyte Balance 5.0 mEq/L Normal 4.0-15.0 [facility] ([place]) Comment on above: Performed By: #### A DIFF, ANEU, GFR, BMP, CBC #### [address] [address] Globulin 3.1 G/dL Normal 1.5-3.8 [facility] ([place]) Comment on above: Performed By: #### A DIFF, ANEU, GFR, BMP, CBC #### [address] [address] Glucose [Mass/Vol] 107 mg/dL Normal 82-115 [facility] ([place]) Comment on above: Performed By: #### A DIFF, ANEU, GFR, BMP, CBC #### [address] [address] Potassium [Moles/Vol] 4.1 mmol/L Normal 3.5-5.0 [facility] ([place]) Comment on above: Result Comment: Spec imen slightly hemolyzed. Performed By: #### A DIFF, ANEU, GFR, BMP, CBC #### [address] [address] Sodium [Moles/Vol] 139 mmol/L Normal 136-145 [facility] ([place]) Comment on above: Performed By: #### A DIFF, ANEU, GFR, BMP, CBC #### [address] [address] Total Protein 6.6 G/dL Normal 5.7-8.2 [facility] ([place]) Comment on above: Result Comment: No te - New Reference Range in effect 20 Performed By: #### A DIFF, ANEU, GFR, BMP, CBC #### [address] [address] Urea nitrogen [Mass/Vol] 25.0 mg/dL High 8.0-22.0 [facility] ([place]) Comment on above: Performed By: #### A DIFF, ANEU, GFR, BMP, CBC #### [address] [address] MGon 05-25-2023 Magnesium [Mass/Vol] 1.9 mg/dL Normal 1.6-2.4 [facility] ([place]) Comment on above: Performed By: #### A DIFF, ANEU, GFR, BMP, CBC #### [place] [address] Magnesium [Mass/Vol] 2.0 mg/dL Normal 1.6-2.4 [facility] ([place]) Comment on above: Performed By: #### A DIFF, ANEU, GFR, BMP, CBC #### [place] [address] PBNPon 05-25-2023 Natriuretic peptide B (Bld) [Mass/Vol] 160 pg/mL Normal 0-1800 [facility] ([place]) Comment on above: Result Comment: NT-p roBNP results of less than 300 pg/mL effectively rules out acute congestive heart failure with 99% negative predictive value. Performed By: #### A DIFF, ANEU, GFR, BMP, CBC #### [place] [address] TROPHSon 05-25-2023 Troponin I High Sensitivity 6.29 ng/L Normal 0.00-54.00 [facility] ([place]) Comment on above: Performed By: #### A DIFF, ANEU, GFR, BMP, CBC #### [place] [address] LABORATORYOrdered By: SYSTEM SYSTEM on 05-24-2023 Albumin [...] - 54.00 ng/L ADM SS LABORATORYOrdered By: Jordi Elliott on 05-24-2023 Natriuretic peptide.B prohormone N-Terminal [Mass/Vol] 160 pg/mL Invalid Interpretation Code 0 - 1800 pg/mL Auto Chem SS Comment on above: Interpretive Data: N T-proBNP results of less than 300 pg/mL effectively rules out acute congestive heart failure with 99% negative predictive value. No Panel Informationon 05-09 [facility] XR Knee - bilateral 4 Viewso n 03-28-2023 IMPRESSION: No acute bony finding. Knee joints are unremarkable. Green House Manager: PSCB Transcribe Date/Time: Mar 28 2023 8:16A Dictated by : COMFORT GLOVER MD This examination was interpreted and the report reviewed and electronically signed by: COMFORT GLOVER MD on Mar 28 2023 8:18AM [facility] DIVISION OF RADIOLOGY * * *Final Report* [...] fracture. Vascular calcifications. DIVISION OF RADIOLOGY Provider, [facility] Elham Garza - 03/28/2023 * * [...] acute bony finding. Knee joints are unremarkable. Green House Manager: JASON Transcribe Date/Time: Mar 28 2023 8:16A Dictated by : COMFORT GLOVER MD This examination was interpreted and the report reviewed and electronically signed by: COMFORT GLOVER MD on Mar 28 2023 8:18AM EST [facility] XR Lumbar spine 3 Viewson Interpretation and review of laboratory results Abnormal [facility] Radiology Result ACTIONABLE Abnormal [facility] Comment on above: This report contains an [...] be communicated with the ordering provider via Hashdoc staff message or phone message by Imaging Support Services within 2 business days of report finalization. Algorithms for management of incidental imaging findings can be found on the [facility] Intranet Sharepoint site at: [email or web address] ng%20Incidental%20Findi ngs%20at%20Imaging/Forms/A llItems.aspx Green House Manager: JASON Transcribe Date/Time: Mar 28 2023 8:11A Dictated by : COMFORT GLOVER MD This examination was interpreted and the report reviewed and electronically signed by: COMFORT GLOVER MD on Mar 28 2023 8:16AM [facility] DIVISION OF RADIOLOGY * * *Final Report* [...] Anatomic Variants: None. DIVISION OF RADIOLOGY Provider, [facility] - 03/28/2023 * * *Final Report* * [...] be communicated with the ordering provider via Hashdoc staff message or phone message by Imaging Support Services within 2 business days of report finalization. Algorithms for management of incidental imaging findings can be found on the [facility] Intranet Sharepoint site at: [email or web address] ng%20Incidental%20Findi ngs%20at%20Imaging/Forms/A llItems.aspx Green House Manager[facility] Transcribe Date/Time: Mar 28 2023 8:11A Dictated by : COMFROT GLOVER MD This examination was interpreted and the report reviewed and electronically signed by: COMFORT GLOVER MD on Mar 28 2023 8:16AM EST [facility] XR Chest PA and Lateralon IMPRESSION: Stable exam. No acute radiographic abnormality. Green House Manager: JASON Transcribe Date/Time: Mar 24 2023 9:33A Dictated by : CARLA BROWN DO This examination was interpreted and the report reviewed and electronically signed by: CARLA BROWN DO on Mar 24 2023 9:33AM EST DIVISION OF RADIOLOGY * * *Final [...] the thoracic spine. DIVISION OF RADIOLOGY Provider, [facility] Elham [facility] - 03/24/2023 * * *Final Report* * [...] IMPRESSION: Stable exam. No acute radiographic abnormality. Green House Manager: JASON Transcribe Date/Time: Mar 24 2023 9:33A Dictated by : CARLA BROWN DO This examination was interpreted and the report reviewed and electronically signed by: CARLA BROWN DO on Mar 24 2023 9:33AM EST [facility] XR Chest PA and LateralOrder ed By: Ccf Provider on 03-24-2023 [facility] No Panel Informationon 03-23 Radiology Study observation (narrative) [facility] XR Chest PA and Lateralon IMPRESSION: No acute radiographic abnormality. Green House Manager: PSCB Transcribe Date/Time: Nov 25 2021 12:25P Dictated by : COMFORT GOLVER MD This examination was interpreted and the [...] Unremarkable. [id number]_ USE_DIVISIO N OF RADIOLOGY Provider, [facility] - 11/25/2021 * * *Final Report* * [...] Unremarkable. IMPRESSION IMPRESSION: No acute radiographic abnormality. Green House Manager: JASON Transcribe Date/Time: Nov 25 2021 12:25P Dictated by : COMFORT GLOVER MD This examination was interpreted and the report reviewed and electronically signed by: COMFORT GLOVER MD on Nov 25 2021 12:26PM EST [facility] Radiology Study observation (narrative) [facility] XR Chest PA and LateralOrder ed By: Cc Provider on 11-25-2021 [facility] XR Chest PA and Lateralon IMPRESSION: No acute radiographic abnormality. Green House Manager: [facility] Transcribe Date/Time: Sep 18 2020 3:15P [...] shows degenerative changes. DIVISION OF RADIOLOGY Provider, Tatiana Lizarraga [place] - 09/18/2020 * * *Final Report* * [...] changes. IMPRESSION IMPRESSION: No acute radiographic abnormality. Green House Manager: JASON Transcribe Date/Time: Sep 18 2020 3:15P Dictated by : ZOE AKBAR MD This examination was interpreted and the report reviewed and electronically signed by: ZOE AKBAR MD on Sep 18 2020 3:16PM EST [facility] Radiology Study observation (narrative) [facility] XR Chest PA and LateralOrder ed By: Ccf Provider on 09-18-2020 [facility] No Panel Informationon 06-09 IMPRESSION: Degenerative changes as discussed Green House Manager: PSCB Transcribe Date/Time: Jun 09 2020 4:42P Dictated by : LISA CARREON DO This examination was interpreted and the report reviewed and electronically signed by: LISA CARREON DO on Jun 09 2020 4:44PM [facility] DIVISION OF RADIOLOGY Radiology Study observation (narrative) [facility] No Panel InformationOrdered By: Ccf Provider on 06-09-2020 [facility] XR Cervical spine AP and [...] the glenohumeral joint. DIVISION OF RADIOLOGY Provider, [facility] * * *Final Report* [...] joint. IMPRESSION IMPRESSION: Degenerative changes as discussed Green House Manager: JASON Transcribe Date/Time: Jun 09 2020 4:42P Dictated by : LISA CARREON DO This examination was interpreted and the report reviewed and electronically signed by: LISA CARREON DO on Jun 09 2020 4:44PM EST [facility] XR Shoulder - left 3 Viewson 06-09-2020 [...] the glenohumeral joint. DIVISION OF RADIOLOGY Provider, [facility] - 06/09/2020 * * *Final [...] joint. IMPRESSION IMPRESSION: Degenerative changes as discussed Green House Manager: JASON Transcribe Date/Time: Jun 09 2020 4:42P Dictated by : LISA CARREON DO This examination was interpreted and the report reviewed and electronically signed by: LISA CARREON DO on Jun 09 2020 4:44PM [facility] Lab Report: Basic Metabolic Profile (BMP)on 06-27-2017 Anion gap 11 mmol/L Invalid Interpretation Code 5-15 [facility] Work Phone: [phone] BUN/Creatinine Ratio 20.3 RATIO High 10-[address] [facility] Work Phone: [phone] Calcium 9.5 mg/dL Invalid Interpretation Code 8.5-10.1 [facility] Work Phone: [phone] Chloride 92 mmol/L Low 98-107 [facility] Work Phone: [phone] CO2 29.0 mmol/L Invalid Interpretation Code 21.0-32.0 [facility] Work Phone: [phone] Creatinine 2.51 mg/dL High 0.70-1.30 [facility] Work Phone: [phone] eGFR (non-black) 32 mL/min/{1.73_m2} Low >60 [facility] Work Phone: [phone] eGFR (non-black) 27 mL/min/{1.73_m2} Low >60 [facility] Work Phone: [phone] Glucose mass conc 506 mg/dL Critically high 70-110 [facility] Work Phone: [phone] Potassium molar conc 3.9 mmol/L Invalid Interpretation Code 3.5-5.1 [facility] Work Phone: [phone] Sodium 132 mmol/L Low 136-145 [facility] Work Phone: [phone] Urea nitrogen 51 mg/dL High 7-18 [facility] Work Phone: [phone] Lab Report: CBC W/Diff, Auto matedon 06-27-2017 Absolute Neut 7.1 X10 3/UL Invalid Interpretation Code 2.0-7.7 [facility] Work Phone: Basophils/100 WBC Auto (Bld) 0.3 % Invalid Interpretation Code 0-1 [facility] Work Phone: Eosinophils/100 leukocytes 2.0 % Invalid Interpretation Code 0-5 [facility] Work Phone: [phone] Erythrocyte distribution width Auto Ratio (RBC) 16.6 % High 11.6-14.6 [facility] Work Phone: [phone] Erythrocytes (RBC) 4.42 10*6/uL Low 4.6-6.[address] [facility] Work Phone: [phone] Hematocrit (HCT) 36.9 % Low 40-54 [facility] Work Phone: [phone] Hemoglobin mass conc (Bld) 11.8 g/dL Low 13.0-16.5 [facility] Work Phone: [phone] Immature granulocytes/100 WBC (Bld) 0.200 % Invalid Interpretation Code 0.0-0.9 [facility] Work Phone: [phone] Lymphocytes 2.63 X10 3/UL Invalid Interpretation Code 0.83-4.51 [facility] Work Phone: [phone] Lymphocytes/100 leukocytes 24.1 % Invalid Interpretation Code 19-41 [facility] Work Phone: [phone] MCH 26.7 pg Low 27.0-32.0 [facility] Work Phone: [phone] MCHC mass conc (RBC) 32.0 G/GL Invalid Interpretation Code 32-36 [facility] Work Phone: [phone] MCV 83.5 fL Invalid Interpretation Code 80-94 [facility] Work Phone: Monocytes/100 leukocytes 8.2 % Invalid Interpretation Code 0-10 [facility] Work Phone: Neutrophils/100 WBC Auto (Bld) 65.2 % Invalid Interpretation Code 47-70 [facility] Work Phone: [phone] Platelets 434 10*3/mm3 Invalid Interpretation Code 150-450 [facility] Work Phone: [phone] PMV by Jeanna 10.4 fL Invalid Interpretation Code 6.2-12.0 [facility] Work Phone: [phone] RDW SD 49.6 fL High 35.1-43.9 [facility] Work Phone: [phone] WBC (Leukocytes) 10.9 10*3/uL Invalid Interpretation Code 4.4-11.0 [facility] Work Phone: [phone] Lab Report: Hemoglobin A1con 06-27-2017 Hemoglobin A1c/Hemoglobin.total mass fraction (Bld) 12.1 % High 4.2-6.3 [facility] Work Phone: [phone] Lab Report: Lipid Profileon 06-27-2017 Cholesterol 247 mg/dL High 200 [facility] Work Phone: [phone] HDL Cholesterol 50 mg/dL Invalid Interpretation Code [facility] Phone: [phone] LDL Cholesterol 145 mg/dL High 0-130 [facility] Work Phone: [phone] Triglyceride 262 mg/dL High [facility] Work Phone: [phone] very low density lipoproteins 52 mg/dL High 5-40 [facility] Work Phone: [phone]) Lab Report: Liver Profileon 06-27-2017 Alanine aminotransferase (ALT) 16 U/L Invalid Interpretation Code 12-78 [facility] Work Phone: [phone] Albumin 3.5 g/dL Invalid Interpretation Code 3.4-5.0 [facility] Work Phone: [phone] Alkaline phosphatase (ALP) 141 U/L High 45-117 [facility] Work Phone: [phone] Aspartate aminotransferase (AST) 11 U/L Low 15-37 [facility] Work Phone: [phone] Bilirubin (direct) 0.09 mg/dL Invalid Interpretation Code 0.00-0.30 [facility] Work Phone: [phone] Bilirubin (total) 0.50 mg/dL Invalid Interpretation Code 0.20-1.00 [facility] Work Phone: [phone] Globulin 4.3 g/dL High 2.2-4.2 [facility] Work Phone: [phone] Protein 7.8 g/dL Invalid Interpretation Code 6.4-8.2 [facility] Phone: [phone] Office Visiton 06-27-2017 Documentation of current medications (procedure) Done Invalid Interpretation Code [facility] Phone: [phone] Fall risk assessment No Invalid Interpretation Code [facility] Phone: [phone]) Clinical Lists Update: Prelo cover maker 06-20-2017 Left ventricular Ejection fraction 45-50 Invalid Interpretation Code [facility] Phone: [phone] Office Visiton 04-21-2017 Documentation of current medications (procedure) Done Invalid Interpretation Code [facility] Phone: [phone] Fall risk assessment No Invalid Interpretation Code [facility] Phone: [phone] Office Visit: anemiaon 04-20 Dietary management education, guidance, and counseling (procedure) yes Invalid Interpretation Code [facility] Phone: [phone] Tobacco smoking status NHIS Never Invalid Interpretation Code [facility] Work Phone: [phone] Tobacco use HS Former smoker Invalid Interpretation Code [facility] Phone: [phone] Lab Report: Basic Metabolic Profile (BMP)on 03-31-2017 Anion gap 11 mmol/L Invalid Interpretation Code 5-15 [facility] Phone: [phone] BUN/Creatinine Ratio 18.1 RATIO Invalid Interpretation Code 10-20 [facility] Phone: [phone] Calcium 8.3 mg/dL Low 8.5-10.1 [facility] Work Phone: [phone] Chloride 101 mmol/L Invalid Interpretation Code 98-107 [facility] Phone: [phone] CO2 26.0 mmol/L Invalid Interpretation Code 21.0-32.0 [facility] Phone: [phone] Creatinine 27.94 mL/min Invalid Interpretation Code [facility] Phone: [phone] Creatinine 2.21 mg/dL High 0.70-1.30 [facility] Work Phone: [phone] eGFR (non-black) 31 mL/min/{1.73_m2} Low >60 [facility] Work Phone: [phone] eGFR (non-black) 37 mL/min/{1.73_m2} Low >60 [facility] Work Phone: [phone] Glucose mass conc 118 mg/dL High 70-110 [facility] Work Phone: [phone] Potassium molar conc 3.3 mmol/L Low 3.5-5.1 [facility] Work Phone: [phone] Sodium 138 mmol/L Invalid Interpretation Code 136-145 [facility] Work Phone: [phone] Urea nitrogen 40 mg/dL High 7-18 [facility] Work Phone: [phone]) Lab Report: CBC W/Diff, Auto matedon 03-31-2017 Absolute Neut 10.9 X10 3/UL High 2.0-7.7 [facility] Work Phone: [phone]) Erythrocyte distribution width Auto Ratio (RBC) 17.6 % High 11.6-14.6 [facility] Work Phone: [phone] Erythrocytes (RBC) 3.08 10*6/uL Low 4.6-6.2 [facility] Work Phone: [phone] Hematocrit (HCT) 25.2 % Low 40-54 [facility] Work Phone: [phone] Hemoglobin mass conc (Bld) 7.5 g/dL Low 13.0-16.5 [facility] Work Phone: [phone] Lymphocytes/100 leukocytes 7.0 % Low 19-41 [facility] Work Phone: [phone] MCH 24.4 pg Low 27.0-32.0 [facility] Work Phone: [phone] MCHC mass conc (RBC) 29.8 G/GL Low 32-36 [facility] Work Phone: [phone] Neutrophils/100 WBC Auto (Bld) 83.6 % High 47-70 [facility] Work Phone: [phone] RDW SD 49.3 fL High 35.1-43.9 [facility] Work Phone: [phone] WBC (Leukocytes) 13.1 10*3/uL High 4.4-11.0 [facility] Work Phone: Basophils/100 WBC Auto (Bld) 0.2 % Invalid Interpretation Code 0-1 [facility] Work Phone: [phone] Eosinophils/100 leukocytes 1.2 % Invalid Interpretation Code 0-5 [facility] Work Phone: [phone] Immature granulocytes/100 WBC (Bld) 0.300 % Invalid Interpretation Code 0.0-0.9 [facility] Work Phone: [phone] Lymphocytes 0.92 X10 3/UL Invalid Interpretation Code 0.83-4.51 [facility] Work Phone: [phone] 81.8 fL Invalid Interpretation Code 80-94 [facility] Work Phone: [phone] Monocytes/100 leukocytes 7.7 % Invalid Interpretation Code 0-10 [facility] Work Phone: [phone] Platelets 396 10*3/mm3 Invalid Interpretation Code 150-450 [facility] Work Phone: [phone] PMV by Jeanna 9.0 fL Invalid Interpretation Code 6.2-12.0 [facility] Work Phone: [phone] Lab Report: CPK Total, Creat ine Kinaseon 03-31-2017 Creatine kinase (CK) 35 U/L Low 39-[address] [facility] Work Phone: [phone]) Lab Report: ACT Activated Cl otting Timeon 03-30-2017 ACTk CLOT TIME 197 sec High 74-137 [facility] Work Phone: [phone] Lab Report: Partial Thrombop last Timeon 03-23-2017 aPTT 35.5 s Invalid Interpretation Code 24.1-36.2 [facility] Work Phone: [phone] Replaced Document: (P) Proth rombin Time w/INRon 03-23-2017 INR Coag RelTime (PPP) 1.1 {INR} Invalid Interpretation Code [facility] Work Phone: [phone] Prothrombin time (PT) Coag time (PPP) 13.9 s Invalid Interpretation Code 11.7-14.9 [facility] Work Phone: [phone] Lab Report: BNP,B-Type NATRI URETIC PEPTIDEon 03-07-2017 BNP 43.4 pg/mL Invalid Interpretation Code 0-100 [facility] Work Phone: [phone] Replaced Document: Tate Perezon 02-25-2017 EKG QRS axis -1 deg Invalid Interpretation Code [facility] Work Phone: [phone] Interpretation Sinus Rhythm -Nonspe cific ST depression -Nondiagnostic. ABNORMAL Invalid Interpretation Code [facility] Work Phone: [phone] P [place] 51 deg Invalid Interpretation Code [facility] Work Phone: [phone] MO Interval 132 ms Invalid Interpretation Code [facility] Work Phone: [phone] Pulse (Heart Rate) 78 /min Invalid Interpretation Code [facility] Work Phone: [phone] QRS Duration 96 ms Invalid Interpretation Code [facility] Work Phone: [phone] QT Interval new path ms Invalid Interpretation Code [facility] Work Phone: [phone] T [place] -1 deg Invalid Interpretation Code [facility] Work Phone: [phone]) Clinical Lists Update: Prelo cover maker 02-24-2017 Alanine aminotransferase (ALT) 12 U/L Invalid Interpretation Code [facility] Work Phone: [phone] Albumin 3.8 g/dL Low [facility] Work Phone: [phone] Alkaline phosphatase (ALP) 99 U/L Invalid Interpretation Code [facility] Work Phone: [phone] Aspartate aminotransferase (AST) 15 U/L Invalid Interpretation Code [facility] Work Phone: [phone] Bilirubin (total) 0.2 mg/dL Invalid Interpretation Code [facility] Work Phone: [phone] Protein 7.5 g/dL Invalid Interpretation Code [facility] Work Phone: [phone] External Other: [employer] thod of Contacton 01-18-2017 methcontact secmsg Invalid Interpretation Code [facility] Work Phone: [phone] Clinical Lists Update: Prelo cover maker 12-24-2016 Albumin/Globulin Ratio 0.7 {ratio} Low [facility] Work Phone: [phone] eGFR (non-black) 51 mL/min/{1.73_m2} Low [facility] Work Phone: [phone] eGFR (non-black) 46 mL/min/{1.73_m2} Low [facility] Work Phone: [phone] Globulin 3.9 g/dL High [facility] Work Phone: [phone] Magnesium 2.2 mg/dL Invalid Interpretation Code [facility] Work Phone: [phone] Clinical Lists Update: Prelo cover maker 12-21-2016 Cholesterol 172 mg/dL Invalid Interpretation Code [facility] Work Phone: [phone] HDL Cholesterol 31 mg/dL Low [facility] Work Phone: [phone] LDL Cholesterol 103 mg/dL Invalid Interpretation Code [facility] Work Phone: [phone] Triglyceride 192 mg/dL Invalid Interpretation Code [facility] Work Phone: [phone] very low density lipoproteins 38 mg/dL Invalid Interpretation Code [facility] Work Phone: [phone] Vital Signs Date Time Vital Sign Value Performing Clinician Roderick delgado 04-02-2025 14:59-0400 Body mass index (BMI) [Ratio] 24.02 kg/m2 Samson Ragsdale DO Work Phone: [facility] 04-02-2025 14:59-0400 Body temperature 96.8 [degF] Samson Ragsdale DO Work Phone: [facility] 04-02-2025 14:59-0400 Body weight 71.67 kg Samson Ragsdale DO Work Phone: [facility] 04-02-2025 14:59-0400 Diastolic blood pressure 60 mm[Hg] Samson Ragsdale DO Work Phone: [facility] 04-02-2025 14:59-0400 Heart rate 64 /min Samson Ragsdale DO Work Phone: [facility] 04-02-2025 14:59-0400 Respiratory rate 20 /min Samson Ragsdale DO Work Phone: [facility] 04-02-2025 14:59-0400 Systolic blood pressure 130 mm[Hg] Samson Ragsdale DO Work Phone: [facility] 03-18-2025 13:38-0400 Body height 172.7 cm Manuela Lacy MD Work Phone: [facility] 03-18-2025 13:38-0400 Body mass index (BMI) [Ratio] 23.4 kg/m2 Manuela Lacy MD Work Phone: [facility] 03-18-2025 13:38-0400 Body weight 69.8 kg Manuela Lacy MD Work Phone: [facility] 03-18-2025 13:38-0400 Diastolic blood pressure 65 mm[Hg] Manuela Lacy MD Work Phone: [facility] 03-18-2025 13:38-0400 Heart rate 68 /min Manuela Lacy MD Work Phone: [facility] 03-18-2025 13:38-0400 SaO2% (BldA) [Mass fraction] 95 % Manuela Lacy MD Work Phone: [facility] 03-18-2025 13:38-0400 Systolic blood pressure 126 mm[Hg] Manuela Lacy MD Work Phone: [facility] 02-21-2025 11:15-0400 Body height 172.[address] Samson Ragsdale DO Work Phone: [facility] 02-21-2025 11:15-0400 Body mass index (BMI) [Ratio] 23.4 kg/m2 Dr. Samson Ragsdale DO Work Phone: [facility] 02-21-2025 11:15-0400 Body weight 69.[address] Samson Ragsdale DO Work Phone: [facility] 02-21-2025 11:15-0400 Diastolic blood pressure 68 mm[Hg] Dr. Samson Ragsdale DO Work Phone: [facility] 02-21-2025 11:15-0400 Heart rate 65 /min Dr. Samson Ragsdale DO Work Phone: [facility] 02-21-2025 11:15-0400 Respiratory rate 16 /min Dr. Samson Ragsdale DO Work Phone: [facility] 02-21-2025 11:15-0400 SaO2% (BldA) [Mass fraction] 92 % Dr. Samson Ragsdale DO Work Phone: [facility] 02-21-2025 11:15-0400 Systolic blood pressure 107 mm[Hg] Dr. Samson Ragsdale DO Work Phone: [facility] 02-20-2025 15:06-0400 Body mass index (BMI) [Ratio] 23.39 kg/m2 Jud Paboner PA-C Work Phone: [facility] 02-20-2025 15:06-0400 Body weight 69.76 kg Jud Paboner PA-C Work Phone: [facility] 02-20-2025 15:06-0400 Diastolic blood pressure 67 mm[Hg] Jud Paboner PA-C Work Phone: [facility] 02-20-2025 15:06-0400 Heart rate 70 /min Jud Paboner PA-C Work Phone: [facility] 02-20-2025 15:06-0400 Respiratory rate 16 /min Jud Queener PA-C Work Phone: [facility] 02-20-2025 15:06-0400 SaO2% (BldA) [Mass fraction] 96 % Jud Paboner PA-C Work Phone: [facility] 02-20-2025 15:06-0400 Systolic blood pressure 121 mm[Hg] Jud Paboner PA-C Work Phone: [facility] 01-30-2025 12:42-0400 Body mass index (BMI) [Ratio] 24.47 kg/m2 Lala Godinez APRN.KEELER POLYGRAPH OPERATOR Work Phone: [facility] 01-30-2025 12:42-0400 Body weight 73 kg Lala Godinez APRN.KEELER POLYGRAPH OPERATOR Work Phone: [facility] 01-30-2025 12:42-0400 Diastolic blood pressure 67 mm[Hg] Lala Godinez APRN.KEELER POLYGRAPH OPERATOR Work Phone: [facility] 01-30-2025 12:42-0400 Heart rate 65 /min Lala Godinez APRN.KEELER POLYGRAPH OPERATOR Work Phone: [facility] 01-30-2025 12:42-0400 SaO2% (BldA) [Mass fraction] 97 % Lala Godinez APRN.KEELER POLYGRAPH OPERATOR Work Phone: [facility] 01-30-2025 12:42-0400 Systolic blood pressure 144 mm[Hg] Lala Godinez APRN.KEELER POLYGRAPH OPERATOR Work Phone: [facility] 01-17-2025 11:18-0400 Body mass index (BMI) [Ratio] 24.14 kg/m2 Lala Godinez APRN.KEELER POLYGRAPH OPERATOR Work Phone: [facility] 01-17-2025 11:18-0400 Body weight 72 kg Lala Godinez APRN.KEELER POLYGRAPH OPERATOR Work Phone: [facility] 01-17-2025 11:18-0400 Diastolic blood pressure 58 mm[Hg] Lala Godinez APRN.KEELER POLYGRAPH OPERATOR Work Phone: [facility] 01-17-2025 11:18-0400 Heart rate 62 /min Lala Godinez APRN.KEELER POLYGRAPH OPERATOR Work Phone: [facility] 01-17-2025 11:18-0400 SaO2% (BldA) [Mass fraction] 94 % Lala Godinez APRN.KEELER POLYGRAPH OPERATOR Work Phone: [facility] 01-17-2025 11:18-0400 Systolic blood pressure 116 mm[Hg] Lala Godinez APRN.KEELER POLYGRAPH OPERATOR Work Phone: 5(878)494-453887 [place] [address] 01-15-2025 13:37-0400 Body height 172.[address] Samson Ragsdale DO Work Phone: 7(465)841-278063 [place] [address] 01-15-2025 13:37-0400 Body mass index (BMI) [Ratio] 24.7 kg/m2 Dr. Samson Ragsdale DO Work Phone: 0(758)340-697463 [place] [address] 01-15-2025 13:37-0400 Body weight 73.[address] Samson Ragsdale DO Work Phone: 5(847)603-733963 [place] [address] 01-15-2025 13:37-0400 Diastolic blood pressure 67 mm[Hg] Dr. Samson Ragsdale DO Work Phone: 6(249)246-687063 [place] [address] 01-15-2025 13:37-0400 Heart rate 61 /min Dr. Samson Ragsdale DO Work Phone: 0(891)798-063363 [place] [address] 01-15-2025 13:37-0400 Respiratory rate 22 /min Dr. Samson Ragsdale DO Work Phone: 6(496)413-131563 [place] [address] 01-15-2025 13:37-0400 Systolic blood pressure 118 mm[Hg] Dr. Samson Ragsdale DO Work Phone: 1(582)372-967463 [place] [address] 01-14-2025 02:19-0400 Body temperature 98.1 [degF] Dr. Samson Ragsdale DO Work Phone: 1(058)165-235663 [place] [address] 01-14-2025 02:19-0400 Diastolic blood pressure 53 mm[Hg] Dr. Samson Ragsdale DO Work Phone: 4(869)585-475263 [place] [address] 01-14-2025 02:19-0400 Heart rate 60 /min Dr. Samson Ragsdale DO Work Phone: 0(987)300-143863 [place] [address] 01-14-2025 02:19-0400 Respiratory rate 20 /min Dr. Samson Ragsdale DO Work Phone: 8(382)278-736163 [place] [address] 01-14-2025 02:19-0400 SaO2% (BldA) [Mass fraction] 93 % Dr. Samson Ragsdale DO Work Phone: 6(575)971-610263 [place] [address] 01-14-2025 02:19-0400 Systolic blood pressure 111 mm[Hg] Dr. Samson Ragsdale DO Work Phone: [facility] 01-13-2025 22:13-0400 Body height 172.[address] Samson Ragsdale DO Work Phone: 2(010)881-594724 [place] [address] 01-13-2025 22:13-0400 Body mass index (BMI) [Ratio] 25.1 kg/m2 Dr. Samson Ragsdale DO Work Phone: 8(041)734-378124 [place] [address] 01-13-2025 22:13-0400 Body weight 75.[address] Samson Ragsdale DO Work Phone: 1(413)781-490924 [place] [address] 01-09-2025 14:13-0400 Body mass index (BMI) [Ratio] 25.07 kg/m2 Khloe Swank LACE ROLLER.KEELER POLYGRAPH OPERATOR Work Phone: [facility] 01-09-2025 14:13-0400 Body temperature 97.2 [degF] Khloe Swank LACE ROLLER.KEELER POLYGRAPH OPERATOR Work Phone: [facility] 01-09-2025 14:13-0400 Body weight 74.8 kg Khloe Swank LACE ROLLER.KEELER POLYGRAPH OPERATOR Work Phone: [facility] 01-09-2025 14:13-0400 Diastolic blood pressure 72 mm[Hg] Khloe Swank LACE ROLLER.KEELER POLYGRAPH OPERATOR Work Phone: [facility] 01-09-2025 14:13-0400 Heart rate 64 /min Khloe Swank LACE ROLLER.KEELER POLYGRAPH OPERATOR Work Phone: [facility] 01-09-2025 14:13-0400 Respiratory rate 18 /min Khloe Swank LACE ROLLER.KEELER POLYGRAPH OPERATOR Work Phone: [facility] 01-09-2025 14:13-0400 SaO2% (BldA) [Mass fraction] 95 % Khloe Swank LACE ROLLER.KEELER POLYGRAPH OPERATOR Work Phone: [facility] 01-09-2025 14:13-0400 Systolic blood pressure 132 mm[Hg] Khloe Swank LACE ROLLER.KEELER POLYGRAPH OPERATOR Work Phone: [facility] 11-26-2024 15:12-0400 Body mass index (BMI) [Ratio] 25.71 kg/m2 Theodora Scotty LACE ROLLER.KEELER POLYGRAPH OPERATOR Work Phone: [facility] 11-26-2024 15:12-0400 Body weight 76.7 kg Theodora Scotty LACE ROLLER.KEELER POLYGRAPH OPERATOR Work Phone: [facility] 11-26-2024 15:12-0400 Diastolic blood pressure 60 mm[Hg] Theodora Scotty LACE ROLLER.KEELER POLYGRAPH OPERATOR Work Phone: [facility] 11-26-2024 15:12-0400 Heart rate 62 /min Theodora Scotty LACE ROLLER.KEELER POLYGRAPH OPERATOR Work Phone: [facility] 11-26-2024 15:12-0400 SaO2% (BldA) [Mass fraction] 97 % Theodora Scotty LACE ROLLER.KEELER POLYGRAPH OPERATOR Work Phone: [facility] 11-26-2024 15:12-0400 Systolic blood pressure 120 mm[Hg] Theodora Scotty LACE ROLLER.KEELER POLYGRAPH OPERATOR Work Phone: [facility] 09-26-2024 14:07-0500 Body mass index (BMI) [Ratio] 25.09 kg/m2 Samson Ragsdale DO Work Phone: [facility] 09-26-2024 14:07-0500 Body temperature 97 [degF] Samson Ragsdale DO Work Phone: [facility] 09-26-2024 14:07-0500 Body weight 74.84 kg Samson Ragsdale DO Work Phone: [facility] 09-26-2024 14:07-0500 Diastolic blood pressure 70 mm[Hg] Samson Ragsdale DO Work Phone: [facility] 09-26-2024 14:07-0500 Heart rate 64 /min Samson Ragsdale DO Work Phone: [facility] 09-26-2024 14:07-0500 Respiratory rate 20 /min Samson Ragsdale DO Work Phone: [facility] 09-26-2024 14:07-0500 Systolic blood pressure 138 mm[Hg] Samson Ragsdale DO Work Phone: [facility] 05-23-2024 14:45-0400 Diastolic blood pressure 66 mm[Hg] Malu Mendoza MD Work Phone: [facility] 05-23-2024 14:45-0400 Heart rate 61 /min Malu Mendoza MD Work Phone: [facility] 05-23-2024 14:45-0400 SaO2% (BldA) [Mass fraction] 98 % Malu Mendoza MD Work Phone: [facility] 05-23-2024 14:45-0400 Systolic blood pressure 147 mm[Hg] Malu Mendoza MD Work Phone: [facility] 05-23-2024 14:30-0400 Respiratory rate 18 /min Malu Mendoza MD Work Phone: [facility] 05-23-2024 14:11-0400 Body temperature 97.7 [degF] Malu Mendoza MD Work Phone: [facility] 05-23-2024 12:11-0400 Body height 172.7 cm Malu Mendoza MD Work Phone: [facility] 05-23-2024 12:11-0400 Body mass index (BMI) [Ratio] 24.78 kg/m2 Malu Mendoza MD Work Phone: [facility] 05-23-2024 12:11-0400 Body weight 73.94 kg Malu Mendoza MD Work Phone: [facility] 05-09-2024 13:31-0400 Body height 172.7 cm [facility] 1 Work Phone: [facility] 05-09-2024 13:31-0400 Body mass index (BMI) [Ratio] 24.78 kg/m2 Pac 1 Work Phone: [facility] 05-09-2024 13:31-0400 Body temperature 97.7 [degF] Pacc 1 Work Phone: [facility] 05-09-2024 13:31-0400 Body weight 73.94 kg Pacc 1 Work Phone: [facility] 05-09-2024 13:31-0400 Diastolic blood pressure 68 mm[Hg] Pacc 1 Work Phone: [facility] 05-09-2024 13:31-0400 Heart rate 62 /min Pacc 1 Work Phone: [facility] 05-09-2024 13:31-0400 Respiratory rate 18 /min Pacc 1 Work Phone: [facility] 05-09-2024 13:31-0400 SaO2% (BldA) [Mass fraction] 96 % Pacc 1 Work Phone: [facility] 05-09-2024 13:31-0400 Systolic blood pressure 128 mm[Hg] Pacc 1 Work Phone: [facility] 04-13-2024 14:19-0400 Body height 172.7 cm Cristela Troy LACE ROLLER.KEELER POLYGRAPH OPERATOR Work Phone: [facility] 04-13-2024 14:19-0400 Body mass index (BMI) [Ratio] 24.54 kg/m2 Cristela Troy LACE ROLLER.KEELER POLYGRAPH OPERATOR Work Phone: [facility] 04-13-2024 14:19-0400 Body weight 73.21 kg Cristela Troy LACE ROLLER.KEELER POLYGRAPH OPERATOR Work Phone: [facility] 04-13-2024 14:19-0400 Diastolic blood pressure 57 mm[Hg] Cristela Troy LACE ROLLER.KEELER POLYGRAPH OPERATOR Work Phone: [facility] 04-13-2024 14:19-0400 Heart rate 64 /min Cristela Troy LACE ROLLER.KEELER POLYGRAPH OPERATOR Work Phone: [facility] 04-13-2024 14:19-0400 SaO2% (BldA) [Mass fraction] 96 % Cristela Troy LACE ROLLER.KEELER POLYGRAPH OPERATOR Work Phone: [facility] 04-13-2024 14:19-0400 Systolic blood pressure 116 mm[Hg] Cristela Andersen LACE ROLLER.KEELER POLYGRAPH OPERATOR Work Phone: [facility] 03-26-2024 14:47-0400 Body mass index (BMI) [Ratio] 24.78 kg/m2 Samson Ragsdale DO Work Phone: [facility] 03-26-2024 14:47-0400 Body temperature 97.39 [degF] Samson Ragsdale DO Work Phone: [facility] 03-26-2024 14:47-0400 Body weight 73.94 kg Samson Ragsdale DO Work Phone: [facility] 03-26-2024 14:47-0400 Diastolic blood pressure 60 mm[Hg] Samson Ragsdale DO Work Phone: [facility] 03-26-2024 14:47-0400 Heart rate 64 /min Samson Ragsdale DO Work Phone: [facility] 03-26-2024 14:47-0400 Respiratory rate 20 /min Samson Ragsdale DO Work Phone: [facility] 03-26-2024 14:47-0400 Systolic blood pressure 120 mm[Hg] Samson Ragsdale DO Work Phone: [facility] 10-04-2023 10:21-0500 Diastolic blood pressure 68 mm[Hg] Brittany West DO Work Phone: [facility] 10-04-2023 10:21-0500 Heart rate 64 /min Brittany West DO Work Phone: [facility] 10-04-2023 10:21-0500 SaO2% (BldA) [Mass fraction] 97 % Brittany West DO Work Phone: [facility] 10-04-2023 10:21-0500 Systolic blood pressure 137 mm[Hg] Brittany West DO Work Phone: [facility] 09-26-2023 12:20-0500 Body temperature 97.2 [degF] Samson Ragsdale DO Work Phone: [facility] 09-26-2023 12:20-0500 Body weight 79.83 kg Samson Ragsdale DO Work Phone: [facility] 09-26-2023 12:20-0500 Diastolic blood pressure 64 mm[Hg] Samson Ragsdale DO Work Phone: [facility] 09-26-2023 12:20-0500 Heart rate 64 /min Samson Ragsdale DO Work Phone: [facility] 09-26-2023 12:20-0500 Respiratory rate 20 /min Samson Ragsdale DO Work Phone: [facility] 09-26-2023 12:20-0500 Systolic blood pressure 138 mm[Hg] Samson Ragsdale DO Work Phone: [facility] 05-31-2023 10:23-0400 Diastolic blood pressure 58 mm[Hg] Brittany West DO Work Phone: [facility] 05-31-2023 10:23-0400 Heart rate 64 /min Brittany West DO Work Phone: [facility] 05-31-2023 10:23-0400 SaO2% (BldA) [Mass fraction] 95 % Brittany West DO Work Phone: [facility] 05-31-2023 10:23-0400 Systolic blood pressure 122 mm[Hg] Brittany West DO Work Phone: [facility] 05-28-2023 15:25-0400 Heart rate 74 /min JESUS MIJARES MD [facility] 05-28-2023 12:38-0400 Heart rate 64 /min JESUS MIJARES MD [facility] 05-28-2023 10:25-0400 Blood Pressure Cuff Size JESUS MIJARES MD [address] [place] [id number] 05-28-2023 10:25-0400 Blood Pressure Location JESUS MIJARES MD [address] [place] [address] 05-28-2023 10:25-0400 Blood Pressure Method JESUS MIJARES MD [address] [place] [address] 05-28-2023 10:25-0400 Body temperature 98.24 [degF] JESUS MIJARES MD [address] [place] [address] 05-28-2023 10:25-0400 Diastolic Blood Pressure Non-Invasive 58 1 JESUS MIJARES MD [address] [place] [address] 05-28-2023 10:25-0400 Reason For Taking VItal Signs JESUS MIJARES MD [address] [place] [address] 05-28-2023 10:25-0400 Respiratory rate 18 /min JESUS MIJARES MD [address] [place] [address] 05-28-2023 10:25-0400 Systolic Blood Pressure Non-Invasive 110 1 JESUS MIJARES MD [address] [place] [address] 05-28-2023 09:55-0400 diastolic 64 mm[Hg] JESUS MIJARES MD [address] [place] [address] 05-28-2023 09:55-0400 diastolic 70 mm[Hg] JESUS MIJARES MD [address] [place] [address] 05-28-2023 09:55-0400 Heart rate 73 /min JESUS MIJARES MD [address] [place] [address] 05-28-2023 09:55-0400 Heart rate 85 /min JESUS MIJARES MD [address] [place] [address] 05-28-2023 09:55-0400 Respiratory rate 18 /min JESUS MIJARES MD [address] [place] [address] 05-28-2023 09:55-0400 Respiratory rate 20 /min JESUS MIJARES MD [address] [place] [address] 05-28-2023 09:55-0400 systolic 140 mm[Hg] JESUS MIJARES MD [address] [place] [address] 05-28-2023 09:55-0400 systolic 142 mm[Hg] JESUS MIJARES MD [address] [place] [address] 05-28-2023 05:02-0400 Heart rate 73 /min JESUS MIJARES MD [address] [place] [address] 05-28-2023 05:02-0400 Mean blood pressure 78 mm[Hg] JESUS MIJARES MD [address] [place] [address] 05-27-2023 23:22-0400 Mean blood pressure 79 mm[Hg] JESUS MIJARES MD [address] [place] [address] 05-27-2023 22:50-0400 Body temperature 98.24 [degF] JESUS MIJARES MD [address] [place] [address] 05-27-2023 22:50-0400 Reason For Taking VItal Signs JESUS MIJARES MD [address] [place] [address] 05-27-2023 21:30-0400 Body temperature 98.24 [degF] JESUS MIJARES MD [address] [place] [address] 05-27-2023 21:30-0400 Mean blood pressure 91 mm[Hg] JESUS MIJARES MD [address] [place] [address] 05-27-2023 21:30-0400 Reason For Taking VItal Signs JESUS MIJARES MD [address] [place] [address] 05-27-2023 08:13-0400 Blood Pressure Cuff Size JESUS MIJARES MD [address] [place] [address] 05-27-2023 08:13-0400 Blood Pressure Location JESUS MIJARES MD [address] [place] [address] 05-27-2023 08:13-0400 Blood Pressure Method JESUS MIJARES MD [address] [place] [address] 05-27-2023 03:37-0400 Blood Pressure Cuff Size JESUS MIJARES MD [address] [place] [address] 05-27-2023 03:37-0400 Blood Pressure Location JESUS MIJARES MD [facility] 05-27-2023 03:37-0400 Blood Pressure Method JESUS MIJARES MD [facility] 05-24-2023 21:25-0400 Body height 172.7 cm JESUS MIJARES MD [address] 05-24-2023 21:25-0400 Body weight 77.7 kg JESUS MIJARES MD [address] 05-24-2023 21:25-0400 Body weight 26.05 kg/m2 JESUS MIJARES MD [address] 05-24-2023 21:15-0400 Heart rate 64 /min JESUS MIJARES MD [address] 03-23-2023 13:50-0400 Body weight 78.93 kg Samson Ragsdale DO Work Phone: [facility] 03-23-2023 13:50-0400 Diastolic blood pressure 70 mm[Hg] Samson Ragsdale DO Work Phone: [facility] 03-23-2023 13:50-0400 Heart rate 58 /min Samson Ragsdale DO Work Phone: [facility] 03-23-2023 13:50-0400 Respiratory rate 14 /min Samson Ragsdale DO Work Phone: [facility] 03-23-2023 13:50-0400 SaO2% (BldA) [Mass fraction] 98 % Samson Ragsdale DO Work Phone: [facility] 03-23-2023 13:50-0400 Systolic blood pressure 112 mm[Hg] Samson Ragsdale DO Work Phone: [facility] 11-30-2022 12:33-0400 Body temperature 97.3 [degF] Tonny Nieves APRN.CNP Work Phone: [facility] 11-30-2022 12:33-0400 Body weight 78.47 kg Tonny Nieves LACE ROLLER.KEELER POLYGRAPH OPERATOR Work Phone: [facility] 11-30-2022 12:33-0400 Diastolic blood pressure 62 mm[Hg] Tonny Nieves LACE ROLLER.KEELER POLYGRAPH OPERATOR Work Phone: [facility] 11-30-2022 12:33-0400 Heart rate 64 /min Tonny Nieves LACE ROLLER.KEELER POLYGRAPH OPERATOR Work Phone: [facility] 11-30-2022 12:33-0400 Respiratory rate 18 /min Tonny Nieves LACE ROLLER.KEELER POLYGRAPH OPERATOR Work Phone: [facility] 11-30-2022 12:33-0400 SaO2% (BldA) [Mass fraction] 97 % Tonny Nieves LACE ROLLER.KEELER POLYGRAPH OPERATOR Work Phone: [facility] 11-30-2022 12:33-0400 Systolic blood pressure 126 mm[Hg] Tonny Nieves LACE ROLLER.KEELER POLYGRAPH OPERATOR Work Phone: [facility] 09-22-2022 14:03-0500 Body temperature 97 [degF] Samson Ragsdale DO Work Phone: [facility] 09-22-2022 14:03-0500 Body weight 79.38 kg Samson Ragsdale DO Work Phone: [facility] 09-22-2022 14:03-0500 Diastolic blood pressure 60 mm[Hg] Samson Ragsdale DO Work Phone: [facility] 09-22-2022 14:03-0500 Heart rate 64 /min Samson Ragsdale DO Work Phone: [facility] 09-22-2022 14:03-0500 Respiratory rate 20 /min Samson Ragsdale DO Work Phone: [facility] 09-22-2022 14:03-0500 Systolic blood pressure 110 mm[Hg] Samson Ragsdale DO Work Phone: [facility] 07-28-2022 10:01-0500 Body temperature 97.5 [degF] Jocelin Lange PA-C Work Phone: [facility] 07-28-2022 10:01-0500 Body weight 79.38 kg Jocelin Athy PA-C Work Phone: [facility] 07-28-2022 10:01-0500 Diastolic blood pressure 72 mm[Hg] Jocelin Athy PA-C Work Phone: [facility] 07-28-2022 10:01-0500 Heart rate 60 /min Joclein Athy PA-C Work Phone: [facility] 07-28-2022 10:01-0500 Respiratory rate 18 /min Jocelin Athy PA-C Work Phone: [facility] 07-28-2022 10:01-0500 SaO2% (BldA) [Mass fraction] 97 % Jocelin Athy PA-C Work Phone: [facility] 07-28-2022 10:01-0500 Systolic blood pressure 136 mm[Hg] Jocelin Athy PA-C Work Phone: [facility] 03-23-2022 14:32-0400 Body temperature 97.5 [degF] Samson Ragsdale DO Work Phone: [facility] 03-23-2022 14:32-0400 Body weight 76.2 kg Samson Ragsdale DO Work Phone: [facility] 03-23-2022 14:32-0400 Diastolic blood pressure 70 mm[Hg] Samson Ragsdale DO Work Phone: [facility] 03-23-2022 14:32-0400 Heart rate 64 /min Samson Ragsdale DO Work Phone: [facility] 03-23-2022 14:32-0400 Respiratory rate 16 /min Samson Ragsdale DO Work Phone: [facility] 03-23-2022 14:32-0400 Systolic blood pressure 110 mm[Hg] Samson Ragsdale DO Work Phone: [facility] 06-27-2017 09:32-0500 BMI (Body Mass Index) 27.06 kg/m2 [facility] Work Phone: 06-27-2017 [...] Mass Index) 28.58 kg/m2 Yu Joshi RN [facility] Work Phone: 04-21-2017 15:16-0400 BP Diastolic 70 mm[Hg] Yu Joshi RN [facility] Work Phone: 04-21-2017 15:16-0400 BP Systolic 150 mm[Hg] Yu Joshi RN [facility] Work Phone: 04-21-2017 15:16-0400 Height 172.72 cm Yu Joshi RN [facility] Work Phone: 04-21-2017 15:16-0400 Pulse (Heart Rate) 88 /min Yu Joshi RN [facility] Work Phone: 04-21-2017 15:16-0400 Respiratory Rate 18 /min Yu Joshi RN [facility] Work Phone: 04-21-2017 15:16-0400 Weight 85.28 kg Yu Joshi RN [facility] Work Phone: 04-20-2017 10:41-0400 Body Temperature 98.2 [degF] Yu Joshi RN [facility] Work Phone: Encounters Encounter Date Encounter Type Care Provider Facility Start: 05-09-2025 End: 05-09-2025 ambulatory SELF Facility:[facility] Start: 04-15-2025 End: 04-16-2025 ambulatory SAMSON RAGSDALE Facility:[facility] Start: 04-05-2025 ambulatory SAMSON RAGSDALE Facil ity:[facility] Start: 04-05-2025 End: 04-05-2025 Subsequent hospital visit by physician [facility] Wstr (I-Stat) Work Phone: Cat Scan Comment on above: Myasthenia gravis (H CC) [G70.00] Start: 04-02-2025 End: 04-02-2025 Patient encounter procedure Samson Ragsdale DO Work Phone: 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) (Primary Dx); Cerebral microvascular disease; Bilateral carotid artery stenosis; Hypertensive kidney disease with chronic kidney disease stage IV ([facility]); Essential hypertension, benign; CKD (chronic kidney disease) stage 4, GFR 15-29 ml/min ([facility]); Hypertensive heart disease without heart failure; Other polyneuropathy; Arthritis, multiple joint involvement; Pure hypercholesterolemia; Vitamin D deficiency; Myasthenia gravis ([facility]) Start: 04-02-2025 End: 04-02-2025 ambulatory SAMSON RAGSDALE Facility:[facility] Start: 03-26-2025 End: 03-26-[address] Samson Ragsdale DO Work Phone: -Laboratory Start: 03-26-2025 End: 03-26-[address] Marcial Monae DO -Laboratory Work Phone: Start: 03-25-2025 End: 03-26-2025 ambulatory Marcial Monae Facility:[facility] Start: 03-18-2025 End: 03-18-2025 Patient encounter procedure Manuela Lacy MD Work Phone: Neurology Comment on above: Myasthenia gravis (H CC) Start: 03-18-2025 End: 03-18-2025 ambulatory SAMSON RAGSDALE Facility:[facility] Start: 03-05-2025 End: 03-05-[address] Samson Ragsdale DO Work Phone: -Radiology [facility] Start: 03-05-2025 End: 03-05-[address] Nolan Hoyt MD -Radiology [facility] Work Phone: Start: 03-05-2025 End: 03-05-2025 ambulatory Samson Ragsdale Facility:[facility] Start: 03-01-[address] [facility] lity:[facility] Start: 02-28-2025 End: 03-04-2025 Telephone encounter Samson Ragsdale DO Work Phone: [facility] Comment on above: Medication Problem Start: 02-27-2025 End: 02-28-2025 Follow-up encounter Jud Maguire PA-C Work Phone: Neurology Comment on above: Results Start: 02-21-2025 End: 02-21-2025 Patient encounter procedure Bijal GOODMAN -[facility] Work Phone: Start: 02-21-2025 End: 02-21-[address] Samson Ragsdale DO Work Phone: -[facility] Start: 02-20-2025 End: 02-20-2025 ambulatory SAMSON RAGSDALE Facility:[facility] Start: 02-20-2025 End: 02-20-2025 Patient encounter procedure Jud Maguire PA-C Work Phone: Neurology Comment on above: Weakness (Primary Dx ); Cerebral microvascular disease; Myasthenia gravis (HCC); Abnormal weight loss; Double vision; Dysphagia, unspecified type Start: 02-20-2025 End: 02-20-2025 ambulatory SAMSON RAGSDALE Facility:[facility] Start: 02-20-2025 End: 02-25-2025 Telephone encounter Samson Ragsdale DO Work Phone: [facility] [place] Comment on above: Orders Start: 01-31-2025 End: 02-05-2025 Follow-up encounter Lala Godinez APRN.CNP Work Phone: [facility] Comment on above: Results Start: 01-31-2025 ambulatory SAMSON RAGSDALE Facil ity:[facility] Start: 01-31-2025 End: 01-31-2025 Subsequent hospital visit by physician [employer] [employer] [facility] (I-Stat/1.5t) Work Phone: Radiology Comment on above: Other symptoms and s igns involving the nervous system [R29.818] Start: 01-30-2025 End: 01-30-2025 Patient encounter procedure Lala Godinez APRN.CNP Work Phone: [facility] [place] Comment on above: Other symptoms and s igns involving the nervous system (Primary Dx); Bilateral carotid artery stenosis Start: 01-30-2025 End: 01-30-2025 ambulatory SAMSON RAGSDALE Facility:[facility] Start: 01-29-2025 End: 01-29-2025 Telephone encounter Samson Ragsdale DO Work Phone: [facility] [place] Comment on above: Orders; Recheck (for difficulty swallowing and distorted vision) Start: 01-29-2025 End: 01-29-[address] Samson Ragsdale DO Work Phone: -Pulmonary Services/Neurology Start: 01-29-2025 End: 01-29-[address] Srini Montano MD -Pulmonary Services/Neurology Work Phone: Start: 01-29-2025 End: 01-29-2025 ambulatory Srini Montano Facility:[facility] Start: 01-22-2025 Non-patient / Non-visit Dr. Bk owen MD -[facility] Start: 01-22-2025 End: 01-22-[address] Samson Ragsdale DO Work Phone: -Cardiovascular Services Start: 01-22-2025 End: 01-22-[address] Srini Montano MD -Cardiovascular Services Work Phone: Start: 01-21-2025 End: 01-22-2025 ambulatory Samson Ragsdale Facility:[facility] Start: 01-21-2025 Non-patient / Non-visit Dr. Srini salazar MD -[facility] Start: 01-18-2025 ambulatory Srini Montano Facility:[facility] Start: 01-18-2025 Non-patient / Non-visit Dr. Srini salazar MD -[facility] Start: 01-18-2025 End: 01-18-[address] Samson Ragsdale DO Work Phone: [facility] Work Phone: Start: 01-18-2025 End: 01-18-[address] Srini Montano MD -Cardiovascular Services Work Phone: Start: 01-18-2025 Non-patient / Non-visit Dr. Srini salazar MD -[facility] Start: 01-17-2025 End: 01-17-2025 Office outpatient visit 25 minutes Lala Godinez APRN.KEELER POLYGRAPH OPERATOR Work Phone: Family [facility] Comment on above: SOB (shortness of br eath) (Primary Dx); Atherosclerosis 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; Hypertensive kidney disease with chronic kidney disease stage IV (HCC); Stented coronary artery; Dysphagia, unspecified type; Vision changes Start: 01-17-2025 End: 01-18-2025 ambulatory Samson Ragsdale Facility:[facility] Start: 01-15-2025 End: 01-15-[address] Samson Ragsdale DO Work Phone: [facility] Work Phone: Start: 01-15-2025 End: 01-15-[address] Srini Montano MD -Laboratory Work Phone: Start: 01-15-2025 End: 01-15-[address] Srini Montano MD -[facility] Work Phone: Start: 01-15-2025 End: 01-15-[address] Samson Ragsdale DO Work Phone: [facility] Work Phone: Start: 01-15-2025 End: 01-15-2025 ambulatory Samson Ragsdale Facility:[facility] Start: 01-13-2025 End: 01-14-2025 Emergency department patient visit Dr. Samson Ragsdale DO Work Phone: -Emergency Department Work Phone: Start: 01-09-2025 End: 01-09-2025 Subsequent hospital visit by physician Sudeep [facility] Work Phone: Radiology Comment on above: Acute cough [R05.1] Start: 01-09-2025 End: 01-09-2025 Patient encounter procedure Khloe Ibarra LACE ROLLER.KEELER POLYGRAPH OPERATOR Work Phone: [facility] Comment on above: Acute cough (Primary Dx); Acute non-recurrent maxillary sinusitis Start: 01-09-2025 End: 01-09-2025 ambulatory KHLOE KAILEYRYAN Facility:[facility] Start: 12-10-2024 End: 12-10-2024 [facility] Start: 12-10-2024 End: 12-10-2024 Patient encounter [facility] Comment on above: Population Health Na vigation Outreach ([facility] Start: 11-30-2024 End: 11-30-2024 Follow-up encounter Theodora Hernandez APRN.KEELER POLYGRAPH OPERATOR Work Phone: [facility] [place] Start: 11-26-2024 End: 11-26-2024 Subsequent hospital visit by physician Sudeep [facility] Work Phone: Radiology Comment on above: Acute pain of both s alfredulders [M25.511, M25.512] Start: 11-26-2024 End: 11-26-2024 Office outpatient visit 15 minutes Theodora Hernandez APRN.KEELER POLYGRAPH OPERATOR Work Phone: Internal Medicine [place] Comment on above: Upper back pain (Maty eugenia Dx); Acute pain of both shoulders; Type 2 diabetes mellitus without complication, with long-term current use of insulin (HCC) Start: 11-26-2024 End: 11-26-2024 ambulatory THEODORA M SCOTTY Facility:[facility] Start: 10-25-2024 End: 10-25-2024 Refill Samson Ragsdale DO Work Phone: [facility] Comment on above: Refill Request Start: 09-26-2024 End: 09-26-2024 ambulatory SAMSON RAGSDALE Facility:[facility] Start: 09-26-2024 End: 09-26-2024 Patient encounter procedure Samson Ragsdale DO Work Phone: [facility] Comment on above: Controlled type 2 di [...] sites, unspecified cause, unspecified chronicity; Atherosclerosis 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 (HCC); Pure hypercholesterolemia; Vitamin D deficiency Start: 09-19-2024 End: 11-19-2024 Follow-up encounter Desirae Irving APRN.KEELER POLYGRAPH OPERATOR Work Phone: [facility] [place] Start: 09-17-2024 End: 09-17-2024 Orders Only Desirae Irving APRN.KEELER POLYGRAPH OPERATOR Work Phone: 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, with long-term current use of insulin (HCC) (Primary Dx); Essential hypertension, benign; Hypertensive kidney disease with chronic kidney disease stage IV (HCC); Screening for prostate cancer Lab Orders Start: 06-08-2024 End: 06-08-2024 Telephone encounter Cristela Andersen APRN.JAIRON Work Phone: General Surgery Comment on above: Medication Problem Start: 05-31-2024 End: 05-31-2024 ambulatory Cristela Andersen Facility:[facility] Start: 05-31-2024 End: 05-31-2024 Patient encounter procedure Cristela Andersen SAMUEL Work Phone: General Surgery Comment on above: Collagenous colitis (Primary Dx) Start: 05-30-2024 End: 05-30-2024 Telephone encounter Cristela Andersen SAMUEL Work Phone: General Surgery Comment on above: Appointment Start: 05-23-2024 ambulatory [facility] Facility:[facility] Start: 05-23-2024 End: 05-23-2024 Subsequent hospital visit by physician Malu Mendoza MD Work Phone: [facility] Comment on above: Chronic diarrhea [K5 2.9] Start: 05-09-2024 End: 05-09-2024 Admission to [facility] Work Phone: Pre Anesthesia Start: 05-09-2024 End: 05-09-2024 Anesthesia consultation [facility] Work Phone: Pre Anesthesia Comment on above: Pre-operative examin ation (Primary Dx); Other polyneuropathy; Abdominal aortic aneurysm (AAA) without rupture, unspecified part (HCC); Atherosclerosis 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 (HCC); Complete atrioventricular [...] Start: 05-09-2024 End: 05-09-2024 Preprocedural examination done [facility] Work Phone: [facility] Start: 05-08-2024 End: 08-21-2024 Telephone encounter Samson Ragsdale DO Work Phone: [facility] [place] Comment on above: Erroneous encounter- disregard Start: 04-27-2024 End: 04-27-2024 Refill Samson Ragsdale DO Work Phone: [facility] Comment on above: Refill Request Start: 04-16-2024 End: 06-05-2024 Telephone encounter Cristela Andersen APRN.KEELER POLYGRAPH OPERATOR Work Phone: General Surgery Comment on above: Appointment Start: 04-13-2024 End: 04-13-2024 Patient encounter procedure Cristela Andersen APRN.KEELER POLYGRAPH OPERATOR Work Phone: General Surgery Comment on above: Gastroesophageal ref lux disease without esophagitis (Primary Dx); Chronic diarrhea; Generalized abdominal pain Start: 04-12-2024 End: 04-12-2024 Telephone encounter Samson Ragsdale DO Work Phone: [facility] Comment on above: Patient Question Start: 04-06-2024 End: 04-06-2024 Refill Samson Ragsdale DO Work Phone: [facility] Comment on above: Refill Request Start: 04-03-2024 End: 04-03-2024 Refill Samson Ragsdale DO Work Phone: [facility] Comment on above: Refill Request Start: 03-26-2024 End: 03-26-2024 Patient encounter procedure Samson Ragsdale DO Work Phone: [facility] Comment on above: Chronic diarrhea (Pr imary Dx); Generalized abdominal pain; Other polyneuropathy; Hypertensive kidney disease with chronic kidney disease stage IV (HCC); Essential hypertension, benign; Atherosclerosis 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 (HCC); Abdominal aortic aneurysm (AAA) without rupture, unspecified part (HCC); 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, with long-term current use of insulin (HCC); Arthritis, multiple joint involvement; Stage 3b chronic kidney disease (HCC) Start: 03-09-2024 Telephone encounter Samson rodriguez DO Work Phone: [facility] Comment on above: Orders Start: 01-27-2024 Refill Samson irizarry DO Work Phone: [facility] Comment on above: Refill Request Start: 11-10-2023 Telephone encounter Samson rodriguez DO Work Phone: [facility] Start: 10-24-2023 Refill Samson irizarry DO Work Phone: [facility] Comment on above: Refill Request Start: 10-04-2023 End: 10-04-2023 Patient encounter procedure Brittany West DO Work Phone: Vascular Surgery Comment on above: Bilateral carotid ar pawan stenosis (Primary Dx); Infrarenal abdominal aortic aneurysm (AAA) without rupture (HCC) Start: 09-27-2023 Telephone encounter Samson rodriguez DO Work Phone: [facility] Start: 09-26-2023 End: 09-26-2023 Patient encounter procedure Sams[facility] Ragsdale DO [facility] Comment on above: CKD (chronic kidney disease) stage 4, GFR 15-29 ml/min (HCC) (Primary Dx); Hypertensive heart disease without heart failure; Essential hypertension, benign; Diarrhea, unspecified type; Complete atrioventricular block (HCC); Malignant neoplasm of prostate (HCC); Type 2 diabetes mellitus with stage 4 chronic kidney disease, with long-term current use of insulin (HCC); Atherosclerosis 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 (HCC); Coronary artery 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 rich plaque; Other polyneuropathy; Gout of multiple sites, unspecified cause, unspecified chronicity; Arthritis, multiple joint involvement; Tinnitus, bilateral; Other specified hearing loss of both ears; Actinic keratosis Start: 09-19-2023 Orders Only Desirae Irving APRN.KEELER POLYGRAPH OPERATOR Work Phone: [facility] Comment on above: Type 2 diabetes dominic itus with stage 4 chronic kidney disease, with long-term current use of insulin (HCC) (Primary Dx); Malignant neoplasm of prostate (HCC); Essential hypertension, benign; History of prostate cancer Start: 07-05-2023 Refill Samson irizarry DO Work Phone: [facility] Comment on above: Refill Request Start: 06-07-2023 Telephone encounter Samson rodriguez DO Work Phone: [facility] [place] Comment on above: [facility] Forms Start: 05-31-2023 End: 05-31-2023 Patient encounter procedure Brittany West DO Work Phone: Vascular Surgery Comment on above: Bilateral carotid ar pawan stenosis (Primary Dx); Infrarenal abdominal aortic aneurysm (AAA) without rupture (HCC) Start: 05-30-2023 Telephone encounter Samson Jaison Manriquez michael DO Work Phone: [facility] [place] Comment on above: [facility] Benefit Paperwork Start: 05-24-2023 End: 05-28-2023 Evaluation and management of inpatient JESUS MIJARES MD Facility:[facility] Start: 05-24-2023 End: 05-28-2023 Evaluation and management of inpatient JESUS MIJARES MD [facility] Start: 05-09-2023 Telephone encounter Samson Blackwood Mitra edmundyosef DO Work Phone: [facility] Comment on above: Physician requesting call back Start: 05-09-2023 End: 05-09-2023 Nursing evaluation of patient and report Nurse Card Admin [facility] Work Phone: Cardiology Comment on above: Screening for ischem ic heart disease (Primary Dx) Start: 05-09-2023 End: 05-09-2023 Subsequent hospital visit by physician [facility] Work Phone: Nuclear Medicine Comment on above: SOB (shortness of br eath) [R06.02] Start: 03-24-2023 Telephone encounter Samson rodriguez DO Work Phone: [facility] Comment on above: Results Start: 03-23-2023 End: 03-23-2023 Subsequent hospital visit by physician [facility] [place] Work Phone: Radiology Comment on above: SOB (shortness of br eath) [R06.02] Start: 03-23-2023 End: 03-23-2023 Patient encounter procedure Samson Ragsdale DO Work Phone: [facility] Comment on above: SOB (shortness of br eath) (Primary Dx); Coronary artery 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 rich plaque; Chest pain on breathing; Bilateral chronic knee pain; 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; Type 2 diabetes mellitus with stage 4 chronic kidney disease, with long-term current use of insulin (HCC); Malignant neoplasm of prostate (HCC); Atherosclerosis 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 ([facility]); Other polyneuropathy; Essential hypertension, benign; Gout of multiple sites, unspecified cause, unspecified chronicity; Arthritis, multiple joint involvement; Vitamin D deficiency; CKD (chronic kidney disease) stage 4, GFR 15-29 ml/min ([facility]) Start: 03-07-2023 Telephone encounter Samson shafferyosef DO Work Phone: [address] [place] [address] Comment on above: Orders Start: 02-02-2023 Refill Samson irizarry DO Work Phone: [facility] Comment on above: Refill Request Start: 11-30-2022 End: 11-30-2022 Patient encounter procedure Tonny Nieves KEELER POLYGRAPH OPERATOR Work Phone: [facility] Comment on above: Sinobronchitis (Prim vinita Dx) Start: 10-27-2022 Refill Samson irizarry DO Work Phone: [facility] Comment on above: Refill Request Start: 10-08-2022 Telephone encounter Samson Jaison rodriguez DO Work Phone: [facility] Comment on above: Results Start: 09-24-2022 Refill Samson irizarry DO Work Phone: [facility] Comment on above: Refill Request Start: 09-22-2022 End: 09-22-2022 Patient encounter procedure Samson Perryrison DO Work Phone: [facility] Comment on above: Controlled [...] Telephone encounter Samson rodriguez DO Work Phone: [facility] Comment on above: Orders Start: 07-28-2022 End: 07-28-2022 Patient encounter procedure Jocelin Lange PA-C Work Phone: [facility] Comment on above: Bronchitis (Primary Dx) Start: 06-10-2022 Refill Samson irizarry DO Work Phone: [facility] Comment on above: Refill Request Start: 04-22-2022 Refill Samson irizarry DO Work Phone: [facility] Comment on above: Refill Request Start: 03-23-2022 End: 03-23-2022 Patient encounter procedure Samson Ragsdale DO Work Phone: [facility] Comment on above: Controlled type 2 di abetes mellitus without complication, without long-term current use of insulin (HCC) (Primary Dx); Essential hypertension, benign; Hypertensive heart disease without heart failure; CKD (chronic kidney disease) stage 4, GFR 15-29 ml/min ([facility]); Gout of multiple sites, unspecified cause, unspecified chronicity; Arthritis, multiple joint involvement; History of prostate cancer; Other iron deficiency anemia Start: 01-13-2022 Refill Samson irizarry DO Work Phone: [facility] Comment on above: Refill Request Start: 12-04-2021 Telephone encounter Samson rodriguez DO Work Phone: [facility] Comment on above: Blood Pressure Start: 11-25-2021 End: 11-25-2021 Subsequent hospital visit by physician [facility] [place] Work Phone: Radiology Comment on above: Cough [R05.9] Start: 09-18-2020 End: 09-18-2020 Subsequent hospital visit by physician [facility] [place] Work Phone: Radiology Comment on above: Cough [R05] Start: 06-09-2020 End: 06-09-2020 Subsequent hospital visit by physician [facility] [place] Work Phone: Radiology Comment on above: Pain of left scapula [M89.8X1] Procedures Date Procedure Procedure Detail Performing Clinician Start: 03-26-2025 Urnls dip stick/tablet reagent auto microscopy Dr. Samson Ragsdale DO Work Phone: Start: 03-05-[address] Samson Ragsdale DO Work Phone: Start: 01-31-2025 Mri brain brain stem w/o contrast material Lala Godinez LACE ROLLER.KEELER POLYGRAPH OPERATOR Work Phone: Start: 01-18-2025 CT of head without contrast Dr. Samson Ragsdale DO Work Phone: Start: 01-18-2025 Cardiovascular stress test using pharmacologic stress agent Dr. Samson Ragsdale DO Work Phone: Start: 01-13-2025 X-ray of chest, PA and lateral views Dr. Samson Ragsdale DO Work Phone: Start: 01-13-[address] Nesha Ragsdale DO Work Phone: Start: 01-09-2025 Radiologic exam chest 2 views Khloe crow LACE ROLLER.KEELER POLYGRAPH OPERATOR Work Phone: Start: 05-23-2024 Gluc bld gluc mntr dev cleared fda spec home use Cristin Nieves MD Work Phone: Start: 05-23-2024 Inf agent det nucleic acid clostridium amp probe Malu Mendoza MD Work Phone: Start: 05-23-2024 Colonoscopy flx dx w/collj spec when pfrmd Cristela Andersen LACE ROLLER.KEELER POLYGRAPH OPERATOR Work Phone: Start: 05-23-2024 Esophagogastroduodenoscopy transoral diagnostic Cristela Andersen LACE ROLLER.KEELER POLYGRAPH OPERATOR Work Phone: Start: 05-23-2024 Ecg routine ecg w/least 12 lds i&r only Colt Rice MD Work Phone: Start: 05-23-2024 Gluc bld gluc mntr dev cleared fda spec home use Cristin Nieves MD Work Phone: Start: 05-09-2023 Myocardial spect multiple studies Samson Barbosaon DO Work Phone: Start: 03-23-2023 Radex spine lumbosacral 2/3 views Samson Perryrison DO Work Phone: Start: 03-23-2023 Radiologic exam chest 2 views Samson Jaison Manriquez arrison DO Work Phone: Start: 03-23-2022 Adult depression screening assessment Samson Ragsdale DO Work Phone: Start: 11-25-2021 Radiologic exam chest 2 views Jenny Kylie tineo LACE ROLLER.KEELER POLYGRAPH OPERATOR Work Phone: Start: 12-01-2020 Adult depression screening assessment Samson Ragsdale DO Work Phone: Start: 09-18-2020 Radiologic exam chest 2 views Theron Herrera MD Work Phone: Start: 06-09-2020 Radex spine cervical 4 or 5 views Samson Blackwood Ragsdale DO Work Phone: Start: 02-06-2019 H/O: [...] Phone: Start: 04-05-2017 End: 06-27-2017 Referral to production intern Rich Sanchez MD Work Phone: Start: 03-30-2017 End: 06-27-2017 *Hepatic Function Panel Rich Sanchez MD Work Phone: Start: 03-30-2017 End: 06-27-2017 Lipid 1996 panel - Serum or Plasma Rich Sanchez MD Work Phone: Start: 03-23-2017 End: 03-24-2017 *BMP Jesus Ortega Radha ENTRY LEVEL BUSINESS ANALYST Work Phone: Start: 03-23-2017 End: 03-24-2017 aPTT in Platelet poor plasma by Coagulation assay Jesus Ortega Radha ENTRY LEVEL BUSINESS ANALYST Work Phone: Start: 03-23-2017 End: 03-24-2017 CBC W Auto Differential panel - Blood Jesus Garcia ENTRY LEVEL BUSINESS ANALYST Work Phone: Start: 03-23-2017 End: 03-24-2017 INR in Platelet poor plasma by Coagulation assay Jesus Ortega Radha ENTRY LEVEL BUSINESS ANALYST Work Phone: Start: 03-23-2017 End: 04-15-2017 Left Heart Cath W/Grafts Jesus Ortega Roof ENTRY LEVEL BUSINESS ANALYST Work Phone: Start: 03-07-2017 End: 03-08-2017 Natriuretic peptide B [Mass/volume] in Blood Jesus Ortega Radha ENTRY LEVEL BUSINESS ANALYST Work Phone: Start: 03-07-2017 End: 04-15-2017 Stress Echocardiogram (treadmill) Jesus Ortega Radha ENTRY LEVEL BUSINESS ANALYST Work Phone: Start: 02-25-2017 End: 04-15-2017 Ecg [...] Phone: Start: 01-18-2017 End: 01-19-2017 Referral to production intern Pat Greenfield PA-C Work Phone: Start: 12-31-2016 End: 01-03-2017 *BMP Pat Greenfield PA-C Work Phone: Start: 12-31-2016 End: 01-03-2017 Natriuretic peptide B [Mass/volume] in Blood Pat Greenfield PA-C Work Phone: Start: 12-31-2016 End: 12-31-2016 Nurse, Teaching, Wound Check (no charge) Rich Sanchez MD Work Phone: Adenoid excision JESUS GOODMAN MD Carotid endarterectomy JESUS MIJARES MD Coronary artery bypass graft JESUS MIJARES MD History of coronary artery bypass [...] PCI-DAVID-RCA 3.50 x 16 mm Synergy 12/20/16; YDM-NZH-Wrvr LCX 2.0 x 20 mm Promus Synergy 03/30/2017 Percutaneous translu jay coronary angioplasty PTCA - Percutaneous transluminal coronary angioplasty JESUS MIJARES MD Tonsillectomy JESUS MIJARES MD Plan of Treatment Date Care Activity Detail Author Start: 05-02-2033 Urine microalbumin profile DTaP,Tdap,Td Vaccine (3 - Td or Tdap) [facility] Start: 04-05-2026 Diabetic foot examination Diabetic Foot Exam [facility] Start: 03-25-2026 Hepatitis B screening Urine Albumin:Creatinine Ratio [facility] Start: 03-25-2026 Hepatitis B surface antibody level LDL Cholesterol [facility] Start: 03-21-2026 Glaucoma screening Dilated Retinal Exam [facility] Start: 10-07-2025 End: 01-06-2026 25-hydroxyvitamin D3 [Mass/volume] in Serum or Plasma VITAMIN D 25 HYDROXY Lab Routine Vitamin D deficiency Expected: 10/07/2025, Expires: 01/06/2026 [facility] Comment on above: Expected: 10/07/2025, Expires: Start: 10-07-2025 End: 01-06-2026 CBC panel - Blood by Automated count COMPLETE BLOOD COUNT Lab Routine CKD (chronic kidney disease) stage 4, GFR 15-29 ml/min (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, with long-term current use of insulin (HCC) Expected: 10/07/2025, Expires: 01/06/2026 [facility] Comment on above: Expected: 10/07/2025, Expires: Start: 10-07-2025 End: 01-06-2026 Comprehensive metabolic 2000 panel - Serum or Plasma COMPREHENSIVE METABOLIC PANEL Lab Routine CKD (chronic kidney disease) stage 4, GFR 15-29 ml/min (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, with long-term current use of insulin (HCC) Expected: 10/07/2025, Expires: 01/06/2026 [facility] Comment on above: Expected: 10/07/2025, Expires: Start: 10-07-2025 End: 01-06-2026 Hemoglobin A1c in Blood HEMOGLOBIN A1C Lab Routine 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, with long-term current use of insulin (HCC) Expected: 10/07/2025, Expires: 01/06/2026 [facility] Work Phone: Comment on above: Expected: 10/07/2025, Expires: Start: 10-07-2025 End: 01-06-2026 Lipid 1996 panel - Serum or Plasma LIPID PANEL, FASTING Lab Routine Pure hypercholesterolemia Expected: 10/07/2025, Expires: 01/06/2026 [facility] Comment on above: Expected: 10/07/2025, Expires: Start: 10-07-2025 End: 01-06-2026 Thyrotropin [Units/volume] in Serum or Plasma THYROID STIMULATING HORMONE Lab Routine 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, with long-term current use of insulin (HCC) Expected: 10/07/2025, Expires: 01/06/2026 [facility] Comment on above: Expected: 10/07/2025, Expires: Start: 10-02-2025 End: 10-02-2025 Patient encounter procedure 10/02/2025 3:40 PM EST Office Visit Family Medicine [facility] [address] [place] [address] Samson Ragsdale DO [address] [place] [address] 6 month follow up Family Medicine [facility] Comment on above: 6 month follow up Start: 09-26-2025 Covid-19 Vaccine () Covid-19 Vaccine () [facility] Comment on above: Postponed from 04/01/2024 (Declined at t his time) Start: 09-25-2025 Hemoglobin A1c measurement HbA1C [facility] Start: 09-17-2025 Hepatitis B surface antibody level LDL Cholesterol [facility] Start: 04-15-2025 End: 04-15-2025 Patient encounter procedure 04/15/2025 3:00 PM EDT Office Visit Neurology [address] [place] [address] Manuela Lacy MD [address] [place] [address] Myasthenia gravis (HCC) [G70.00] follow up Neurology Comment on above: Myasthenia gravis (HCC) [G70.00] follow up Start: 04-05-2025 End: 04-05-2025 Patient encounter procedure 04/05/2025 1:40 PM EDT Appointment Cat Scan [address] [place], [place] [address] Myasthenia gravis (HCC) [G70.00] follow up Cat Scan Comment on above: Myasthenia gravis (HCC) [G70.00] follow up Start: 04-02-2025 End: 04-02-2025 Patient encounter procedure 04/02/2025 2:40 PM EDT Office Visit Family Medicine [facility] [address] [place] [address] Samson Ragsdale DO [address] [place] [address] 6 month follow up Family [facility] Comment on above: 6 month follow up Start: 04-01-2025 Influenza vaccination [facility] Start: 03-26-2025 End: 06-25-2025 25-hydroxyvitamin D3 [Mass/volume] in Serum or Plasma VITAMIN D 25 HYDROXY Lab Routine Vitamin D deficiency Expected: 03/26/2025, Expires: 06/25/2025 [facility] Comment on above: Expected: 03/26/2025, Expires: Start: 03-26-2025 End: 06-25-2025 CBC panel - Blood by Automated count COMPLETE BLOOD COUNT Lab Routine 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, with long-term current use of insulin (HCC) Expected: 03/26/2025, Expires: 06/25/2025 [facility] Comment on above: Expected: 03/26/2025, Expires: Start: 03-26-2025 End: 06-25-2025 Comprehensive metabolic 2000 panel - Serum or Plasma COMPREHENSIVE METABOLIC PANEL Lab Routine 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, with long-term current use of insulin (HCC) Expected: 03/26/2025, Expires: 06/25/2025 [facility] Comment on above: Expected: 03/26/2025, Expires: Start: 03-26-2025 End: 06-25-2025 Hemoglobin A1c in Blood HEMOGLOBIN A1C Lab Routine 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, with long-term current use of insulin (HCC) Expected: 03/26/2025, Expires: 06/25/2025 [facility] Work Phone: Comment on above: Expected: 03/26/2025, Expires: Start: 03-26-2025 End: 06-25-2025 Iron and Iron binding capacity panel - Serum or Plasma IRON AND TIBC Lab Routine 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, with long-term current use of insulin (HCC) Expected: 03/26/2025, Expires: 06/25/2025 [facility] Comment on above: Expected: 03/26/2025, Expires: Start: 03-26-2025 End: 06-25-2025 Lipid 1996 panel - Serum or Plasma LIPID PANEL BASIC Lab Routine Pure hypercholesterolemia Expected: 03/26/2025, Expires: 06/25/2025 [facility] Comment on above: Expected: 03/26/2025, Expires: Start: 03-26-2025 End: 06-25-2025 Magnesium [Mass/volume] in Serum or Plasma MAGNESIUM Lab Routine 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, with long-term current use of insulin (HCC) Expected: 03/26/2025, Expires: 06/25/2025 [facility] Comment on above: Expected: 03/26/2025, Expires: Start: 03-26-2025 End: 06-25-2025 Microalbumin/Creatinine [Mass Ratio] in Urine ALBUMIN/CREATININE RATIO, URINE Lab Routine 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, with long-term current use of insulin (HCC) Expected: 03/26/2025, Expires: 06/25/2025 [facility] Comment on above: Expected: 03/26/2025, Expires: Start: 03-19-2025 Hepatitis B surface antibody level LDL Cholesterol [facility] Start: 03-18-2025 End: 03-18-2025 Patient encounter procedure 03/18/2025 2:00 PM EDT Office Visit Neurology [address] [place] [address] Manuela Lacy MD [address] [place] [address] Myasthenia gravis (HCC) [G70.00] Neurology Comment on above: Myasthenia gravis (HCC) [G70.00] Start: 03-17-2025 Hemoglobin A1c measurement HbA1C [facility] Start: 02-20-2025 End: 02-20-2025 Patient encounter procedure 02/20/2025 3:00 PM EDT Office Visit Neurology [address] [place], [place] [id number] Jud Maguire PA-C [address] [place], [place] [id number] Cerebral microvascular disease [I67.89] Neurology Comment on above: Cerebral microvascular disease [I67.89] Start: 02-20-2025 End: 05-22-2025 ACETYLCHOLINE REC BINDING AB [facility] Work Phone: Comment on above: Expected: 02/20/2025, Expires: Start: 02-20-2025 End: 05-22-2025 ACETYLCHOLINE REC BLOCKING AB [facility] Comment on above: Expected: 02/20/2025, Expires: Start: 02-20-2025 End: 05-22-2025 ACETYLCHOLINE RECEPTOR MODULATING ANTIBODY [facility] Comment on above: Expected: 02/20/2025, Expires: Start: 02-20-2025 End: 05-22-2025 C reactive protein [Mass/volume] in Serum or Plasma [facility] Comment on above: Expected: 02/20/2025, Expires: Start: 02-20-2025 End: 05-22-2025 CBC W Auto Differential panel - Blood [facility] Comment on above: Expected: 02/20/2025, Expires: Start: 02-20-2025 End: 05-22-2025 Cobalamin (Vitamin B12) [Mass/volume] in Serum or Plasma [facility] Comment on above: Expected: 02/20/2025, Expires: Start: 02-20-2025 End: 05-22-2025 Comprehensive metabolic 2000 panel - Serum or Plasma [facility] Comment on above: Expected: 02/20/2025, Expires: Start: 02-20-2025 End: 05-22-2025 Erythrocyte sedimentation rate [facility] Comment on above: Expected: 02/20/2025, Expires: Start: 02-20-2025 End: 05-22-2025 Methylmalonate [Moles/volume] in Serum or Plasma [facility] Comment on above: Expected: 02/20/2025, Expires: Start: 02-20-2025 End: 05-22-2025 PROT ELECT SERUM WITH ELIZABETH AND INTERP [facility] Comment on above: Expected: 02/20/2025, Expires: Start: 01-31-2025 End: 01-31-2025 Patient encounter procedure 01/31/2025 12:00 PM EDT Appointment Radiology [address] [place] [address] Other symptoms and signs involving the nervous system [R29.818] Radiology Comment on above: Other symptoms and signs involving the n ervous system [R29.818] Start: 01-30-2025 End: 01-30-2025 Patient encounter procedure 01/30/2025 1:20 PM EDT Office Visit Family [facility] [address] [place], [place] [phone] Lala Godinez APRN.[facility] [address] [place], [place] [phone] follow up-Patient believes he has had a stroke See TE 01/29/2025 [facility] Comment on above: follow up-Patient believes he has had a stroke See TE 01/29/2025 Start: 01-29-2025 Measurement of respiratory function [facility] Start: 01-28-2025 Influenza vaccination Influenza Vaccine (#1) [facility] Comment on above: Postponed from 04/01/2024 (Declined at t his time) Start: 01-15-2025 Patient referral [facility] Work Phone: Start: 01-14-2025 [facility] Start: 01-13-2025 [facility] Start: 09-26-2024 End: 09-26-2024 Patient encounter procedure 09/26/2024 2:20 PM EST Office Visit Family [facility] [address] [place], [place] [phone] Samson Ragsdale DO [address] [place] [address] Physical [facility] Comment on above: Physical Start: 09-26-2024 Covid-19 Vaccine () Covid-19 Vaccine () [facility] Comment on above: Postponed from 04/01/2023 (Declined at t his time) Start: 09-23-2024 Hepatitis B surface antibody level LDL Cholesterol [facility] Start: 09-19-2024 Hemoglobin A1c measurement HbA1C [facility] Start: 09-17-2024 End: 12-17-2024 Comprehensive metabolic 2000 panel - Serum or Plasma [facility] Work Phone: Comment on above: Expected: 09/17/2024, Expires: Start: 09-17-2024 End: 12-17-2024 Hemoglobin A1c in Blood [facility] Comment on above: Expected: 09/17/2024, Expires: Start: 09-17-2024 End: 12-17-2024 Lipid 1996 panel - Serum or Plasma [facility] Comment on above: Expected: 09/17/2024, Expires: Start: 09-17-2024 End: 12-17-2024 PSA/PROSTATE SPECIFIC ANTIGEN SCREENING [facility] Comment on above: Expected: 09/17/2024, Expires: Start: 05-31-2024 End: 05-31-2024 Patient encounter procedure 05/31/2024 2:00 PM EDT Office Visit General Surgery [address] [place], [place] [phone] Cristela Andersen APRN.[employer] [address] [place], [place] [phone] 05-23 EGD & colon follow up General Surgery Comment on above: 05-23 EGD & colon follow up Start: 05-23-2024 End: 05-23-2024 Patient encounter procedure 05/23/2024 3:00 PM EDT Appointment [facility] [address] [place] [id number] Malu Mendoza MD [address] [place] [id number] colon/egd [facility] Comment on above: colon/egd Start: 05-09-2024 End: 05-09-2024 Anesthesia consultation 05/09/2024 1:40 PM EDT PAT Pre Anest[facility] [address] [place] [place] [address] 1, Pac [facility] [address] [place] [address] egd colonoscopy unable to do virtual Pre Anesthesia Comment on above: egd colonoscopy unable to do virtual Start: 04-13-2024 End: 04-13-2024 Patient encounter procedure General Surg jenn Comment on above: Chronic diarrhea [K52.9] Chronic diarrhea, ge neralized abdominal pain Start: 04-01-2024 Covid-19 Vaccine () Covid-19 Vaccine () [facility] Start: 04-01-2024 Covid-19 Vaccine () Covid-19 Vaccine () [facility] Start: 04-01-2024 Influenza vaccination [facility] Start: 03-26-2024 End: 03-26-2024 Patient encounter procedure 03/26/2024 3:00 PM EDT Office Visit Family Medicine [facility] [address] [place] [address] Samson Ragsdale DO [address] [place] [address] 6 month follow up Family Medicine [facility] Comment on above: 6 month follow up Start: 03-23-2024 3 comp foot exam completed DIABETIC FOOT EXAM [facility] Start: 03-23-2024 Diabetic foot examination Diabetic Foot Exam [facility] Start: 03-23-2024 Hemoglobin A1c measurement HbA1C [facility] Start: 03-09-2024 End: 06-08-2024 CBC W Auto Differential panel - Blood COMPLETE BLOOD COUNT AND DIFFERENTIAL Lab Routine Essential hypertension, benign Expected: 03/09/2024, Expires: 06/08/2024 [facility] Comment on above: Expected: 03/09/2024, Expires: Start: 03-09-2024 End: 06-08-2024 Comprehensive metabolic 2000 panel - Serum or Plasma COMPREHENSIVE METABOLIC PANEL Lab Routine Essential hypertension, benign Expected: 03/09/2024, Expires: 06/08/2024 [facility] Comment on above: Expected: 03/09/2024, Expires: Start: 03-09-2024 End: 06-08-2024 Hemoglobin A1c in Blood HEMOGLOBIN A1C Lab Routine 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, with long-term current use of insulin (HCC) Expected: 03/09/2024, Expires: 06/08/2024 [facility] Work Phone: Comment on above: Expected: 03/09/2024, Expires: Start: 03-09-2024 End: 06-08-2024 Lipid 1996 panel - Serum or Plasma LIPID PANEL BASIC Lab Routine Essential hypertension, benign Expected: 03/09/2024, Expires: 06/08/2024 [facility] Comment on above: Expected: 03/09/2024, Expires: Start: 01-29-2024 Influenza vaccination Influenza Vaccine (#1) [facility] Comment on above: Postponed from 04/01/2023 (Declined at t his time) Start: 09-19-2023 End: 12-19-2023 CBC W Auto Differential panel - Blood CBC + DIFF Lab Routine Type 2 diabetes mellitus with stage 4 chronic kidney disease, with long-term current use of insulin (HCC) Essential hypertension, benign Expected: 09/19/2023, Expires: 12/19/2023 [facility] Work Phone: Comment on above: Expected: 09/19/2023, Expires: Start: 09-19-2023 End: 12-19-2023 Comprehensive metabolic 2000 panel - Serum or Plasma COMP METABOLIC PANEL Lab Routine Type 2 diabetes mellitus with stage 4 chronic kidney disease, with long-term current use of insulin (HCC) Essential hypertension, benign Expected: 09/19/2023, Expires: 12/19/2023 [facility] Work Phone: Comment on above: Expected: 09/19/2023, Expires: Start: 09-19-2023 End: 12-19-2023 Hemoglobin A1c in Blood HGB A1C Lab Routine Type 2 diabetes mellitus with stage 4 chronic kidney disease, with long-term current use of insulin (HCC) Expected: 09/19/2023, Expires: 12/19/2023 [facility] Work Phone: Comment on above: Expected: 09/19/2023, Expires: 4 Start: 09-19-2023 End: 12-19-2023 Lipid 1996 panel - Serum or Plasma LIPID PANEL BASIC Lab Routine Type 2 diabetes mellitus with stage 4 chronic kidney disease, with long-term current use of insulin (HCC) Essential hypertension, benign Expected: 09/19/2023, Expires: 12/19/2023 [facility] Work Phone: Comment on above: Expected: 09/19/2023, Expires: Start: 09-19-2023 End: 12-19-2023 Prostate specific Ag [Mass/volume] in Serum or Plasma PSA/PROSTSPECAG DIAG Lab Routine Malignant neoplasm of prostate (HCC) History of prostate cancer Expected: 09/19/2023, Expires: 12/19/2023 [facility] Work Phone: Comment on above: Expected: 09/19/2023, Expires: Start: 09-14-2023 Hemoglobin A1c measurement HbA1C [facility] Start: 09-14-2023 Hemoglobin A1c/Hemoglobin.total in Blood HBA1C [facility] Start: 09-13-2023 Hepatitis B surface antibody level LDL CHOLESTEROL [facility] Start: 08-09-2023 Glaucoma screening Dilated Retinal Exam [facility] Start: 08-09-2023 Hepatitis C antibody, confirmatory test DILATED RETINAL EXAM [facility] Start: 08-01-2023 Depression Assessment Depression Assessment [facility] Start: 04-01-2023 Covid-19 Vaccine () Covid-19 Vaccine () [facility] Start: 04-01-2023 Influenza vaccination [facility] Start: 03-23-2023 3 comp foot exam completed DIABETIC FOOT EXAM [facility] Start: 03-23-2023 Adult depression screening assessment DEPRESSION SCREENING [facility] Start: 03-23-2023 ANNUAL PCP TEAM CHRONIC DISEASE VISIT ANNUAL PCP TEAM CHRONIC DISEASE VISIT [facility] Start: 03-23-2023 BP CONTROLLED (<130/80) BP CONTROLLED (<130/80) [facility] Start: 03-16-2023 HEMOGLOBIN/HEMATOCRIT HEMOGLOBIN/HEMATOCRIT [facility] Start: 03-16-2023 SERUM CREATININE SERUM CREATININE [facility] Start: 03-13-2023 Hemoglobin A1c/Hemoglobin.total in Blood HBA1C [facility] Start: 03-11-2023 Shingrix Vaccine (3 of 3) Shingrix Vaccine (3 of 3) [facility] Start: 03-07-2023 End: 05-07-2023 CBC W Auto Differential panel - Blood CBC + DIFF Lab Routine Essential hypertension, benign CKD (chronic kidney disease) stage 4, GFR 15-29 ml/min (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, with long-term current use of insulin (HCC) Expected: 03/07/2023, Expires: 05/07/2023 [facility] Work Phone: Comment on above: Expected: 03/07/2023, Expires: 3 Start: 03-07-2023 End: 05-07-2023 Comprehensive metabolic 2000 panel - Serum or Plasma COMP METABOLIC PANEL Lab Routine Essential hypertension, benign CKD (chronic kidney disease) stage 4, GFR 15-29 ml/min (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, with long-term current use of insulin (HCC) Expected: 03/07/2023, Expires: 05/07/2023 [facility] Work Phone: Comment on above: Expected: 03/07/2023, Expires: 3 Start: 03-07-2023 End: 05-07-2023 Hemoglobin A1c in Blood HGB A1C Lab Routine 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, with long-term current use of insulin (HCC) Expected: 03/07/2023, Expires: 05/07/2023 [facility] Work Phone: Comment on above: Expected: 03/07/2023, Expires: 3 Start: 01-28-2023 Influenza vaccination INFLUENZA (#1) [facility] Comment on above: Postponed from 04/01/2022 (Declined at t his time) Start: 12-07-2022 HEMOGLOBIN/HEMATOCRIT HEMOGLOBIN/HEMATOCRIT [facility] Start: 12-07-2022 Hepatitis B surface antibody level LDL CHOLESTEROL [facility] Start: 12-07-2022 SERUM CREATININE SERUM CREATININE [facility] Start: 09-16-2022 Hemoglobin A1c/Hemoglobin.total in Blood HBA1C [facility] Start: 09-15-2022 ANNUAL PCP TEAM CHRONIC DISEASE VISIT ANNUAL PCP TEAM CHRONIC DISEASE VISIT [facility] Start: 09-09-2022 HEMOGLOBIN/HEMATOCRIT HEMOGLOBIN/HEMATOCRIT [facility] Start: 09-09-2022 Hepatitis B screening Urine Albumin:Creatinine Ratio [facility] Start: 09-09-2022 Hepatitis B surface antibody level LDL CHOLESTEROL [facility] Start: 09-09-2022 SERUM CREATININE SERUM CREATININE [facility] Start: 08-18-2022 Hepatitis C antibody, confirmatory test DILATED RETINAL EXAM [facility] Start: 08-06-2022 End: 10-06-2022 C reactive protein [Mass/volume] in Serum or Plasma C-REACTIVE PROTEIN (CRP) Lab Routine Gout of multiple sites, unspecified cause, unspecified chronicity Expected: 08/06/2022, Expires: 10/06/2022 [facility] Work Phone: Comment on above: Expected: 08/06/2022, Expires: 3 Start: 08-06-2022 End: 10-06-2022 CBC W Auto Differential panel - Blood CBC + DIFF Lab Routine Pure hypercholesterolemia Expected: 08/06/2022, Expires: 10/06/2022 [facility] Work Phone: Comment on above: Expected: 08/06/2022, Expires: 3 Start: 08-06-2022 End: 10-06-2022 Comprehensive metabolic 2000 panel - Serum or Plasma COMP METABOLIC PANEL Lab Routine Pure hypercholesterolemia Expected: 08/06/2022, Expires: 10/06/2022 [facility] Work Phone: Comment on above: Expected: 08/06/2022, Expires: 3 Start: 08-06-2022 End: 10-06-2022 Hemoglobin A1c in Blood HGB A1C Lab Routine Controlled type 2 diabetes mellitus without complication, without long-term current use of insulin (HCC) Expected: 08/06/2022, Expires: 10/06/2022 [facility] Work Phone: Comment on above: Expected: 08/06/2022, Expires: 3 Start: 08-06-2022 End: 10-06-2022 Lipid 1996 panel - Serum or Plasma LIPID PANEL BASIC Lab Routine Pure hypercholesterolemia Expected: 08/06/2022, Expires: 10/06/2022 [facility] Work Phone: Comment on above: Expected: 08/06/2022, Expires: 3 Start: 08-06-2022 End: 10-06-2022 PSA/PROSTSPECAG SCRN PSA/PROSTSPECAG SCRN Lab Routine History of prostate cancer Screening for prostate cancer Expected: 08/06/2022, Expires: 10/06/2022 [facility] Work Phone: Comment on above: Expected: 08/06/2022, Expires: 3 Start: 08-06-2022 End: 10-06-2022 Urate [Mass/volume] in Serum or Plasma URIC ACID BLOOD Lab Routine Gout of multiple sites, unspecified cause, unspecified chronicity Expected: 08/06/2022, Expires: 10/06/2022 [facility] Work Phone: Comment on above: Expected: 08/06/2022, Expires: 3 Start: 08-01-2022 DEPRESSION ASSESSMENT DEPRESSION ASSESSMENT [facility] Start: 06-09-2022 Hemoglobin A1c/Hemoglobin.total in Blood HBA1C [facility] Start: 04-01-2022 Influenza vaccination INFLUENZA (#1) [facility] Start: 03-09-2022 Hemoglobin A1c/Hemoglobin.total in Blood HBA1C [facility] Start: 12-01-2021 Adult depression screening assessment DEPRESSION SCREENING [facility] Start: 09-09-2021 BP CONTROLLED (<130/80) BP CONTROLLED (<130/80) [facility] Start: 08-25-2021 3 comp foot exam completed DIABETIC FOOT EXAM [facility] Start: 08-01-2021 ADVANCE DIRECTIVE DISCUSSION ADVANCE DIRECTIVE DISCUSSION [facility] Start: 08-01-2021 DEPRESSION ASSESSMENT DEPRESSION ASSESSMENT [facility] Start: 03-24-2021 COVID-19 VACCINE (3 - Booster for Moderna series) COVID-19 VACCINE (3 - Booster for Moderna series) [facility] Start: 12-17-2020 COVID-19 VACCINE (3 - Booster for Moderna series) COVID-19 VACCINE (3 - Booster for Moderna series) [facility] Start: 12-17-2020 COVID-19 VACCINE (3 - Moderna series) COVID-19 VACCINE (3 - Moderna series) [facility] Start: 10-18-2017 End: 10-18-2017 Appointment Appointment [facility] Work Phone: Start: 06-27-2017 End: 06-27-2017 LEVI SIMS [facility] Work Phone: Start: 06-27-2017 End: 06-27-2017 Follow Up Appt 3 months Follow Up Appt 3 months [facility] Work Phone: Start: 06-27-2017 End: 06-27-2017 Appointment Appointment [facility] Work Phone: Start: 05-27-2017 End: 04-29-2017 CBC W Auto Differential panel - Blood *CBC [facility] Work Phone: Start: 04-21-2017 End: 04-21-2017 LEVI SIMS [facility] Work Phone: Start: 04-21-2017 End: 04-21-2017 Esophagogastroduodenoscopy transoral diagnostic EGD; diagnostic [facility] Work Phone: Start: 04-21-2017 End: 04-21-2017 Follow Up Appt 3 months Follow Up Appt 3 months [facility] Work Phone: Start: 04-21-2017 End: 04-21-2017 Pulmonary Function Test - complete Pulmonary Function Test - complete [facility] Work Phone: Start: 04-20-2017 End: 04-20-2017 Colonoscopy flx dx w/collj spec when pfrmd Colonoscopy [facility] Work Phone: Start: 04-05-2017 End: 04-05-2017 Cardiac Rehab Cardiac Rehab Rehab Cardiac Pulmonary, [address] [place], [address] [facility] Work Phone: Start: 03-30-2017 End: 06-27-2017 *Hepatic Function Panel *Hepatic Function Panel [facility] Work Phone: Start: 03-30-2017 End: 06-27-2017 Lipid panel [AGGREGATE] *Lipid Profile CC PCP [facility] Work Phone: Start: 03-23-2017 End: 03-24-2017 *BMP *BMP [facility] Work Phone: Start: 03-23-2017 End: 03-24-2017 aPTT *PTT-Partial Thromboplastin Time [facility] Work Phone: Start: 03-23-2017 End: 03-24-2017 CBC W Auto Differential panel - Blood *CBC without Diff [facility] Work Phone: Start: 03-23-2017 End: 03-24-2017 INR Coag RelTime (PPP) *PT/INR [facility] Work Phone: Start: 03-23-2017 End: 03-23-2017 Left Heart Cath W/G[facility]s [facility] Work Phone: Start: 03-07-2017 End: 03-08-2017 BNP *Brain Natriuretic Peptide BNP [facility] Work Phone: Start: 03-07-2017 End: 03-07-2017 Stress Echocardiogram (treadmill) Stress Echocardiogram (treadmill) [facility] Work Phone: Start: 02-25-2017 End: 04-15-2017 Ecg routine ecg w/least 12 lds w/i&r EKG (In office) [facility] Work Phone: Start: 02-16-2017 End: 02-16-2017 *BMP *BMP [facility] Work Phone: Start: 02-16-2017 End: 02-16-2017 *CBC with Differential *CBC with Differential [facility] Work Phone: Start: 02-16-2017 End: 02-25-2017 Chest x-ray X-Ray, Chest, PA & Lateral [facility] Work Phone: Start: 01-25-2017 End: 01-26-2017 Xtrnl mobile cv telemetry w/i&report 30 days 30 Day Holter Monitor [facility] Work Phone: Start: 01-18-2017 End: 04-05-2017 Cardiac Rehab Cardiac Rehab [address] [place], [address] [facility] Work Phone: Start: 01-18-2017 End: 01-18-2017 DJN DJN [facility] Work Phone: Start: 01-18-2017 End: 01-18-2017 Ecg routine ecg w/least 12 lds w/i&r EKG (In office) [facility] Work Phone: Start: 01-18-2017 End: 01-18-2017 Follow Up Appt 3 months Follow Up Appt 3 months [facility] Work Phone: Start: 12-31-2016 End: 01-03-2017 *BMP *BMP [facility] Work Phone: Start: 12-31-2016 End: 01-03-2017 BNP *Brain Natriuretic Peptide BNP [facility] Work Phone: Start: 2016 RSV Vaccine (1 - 1-dose 75+ series) RSV Vaccine (1 - 1-dose 75+ series) [facility] Start: 09-25-2012 SHINGRIX VACCINE (2 of 3) SHINGRIX VACCINE (2 of 3) [facility] Start: 08-01-2011 Urine microalbumin profile [facility] Start: 07-01-2006 Medicare Annual Wellness Visit Medicare Annual Wellnes s Visit [facility] Start: 2001 Hepatitis B Vaccine (1 of 3 - Risk 3-dose series) Hepatitis B Vaccine (1 of 3 - Risk 3-dose series) [facility] Start: 2001 RSV Vaccine (1 - 1-dose 60+ series) RSV Vaccine (1 - 1-dose 60+ series) [facility] Basic metabolic 2008 panel with ionized calcium - Serum or Plasma [facility] Clostridioides diffi cile toxin genes [Presence] in Stool by CHANTAL with probe detection C. DIFFICILE PCR Lab Routine Diarrhea, unspecified type Ordered: 09/26/2023 [facility] Work Phone: Comment on above: Ordered: 09/26/2023 Clostridioides diffi cile toxin genes [Presence] in Stool by CHANTAL with probe detection C. DIFFICILE PCR Lab Routine Chronic diarrhea Generalized abdominal pain Ordered: 03/26/2024 [facility] Comment on above: Ordered: 03/26/2024 End: 04-17-2026 CT Chest WO contrast CT CHEST WO IVCON Radiology Routine Myasthenia gravis (HCC) 1 Occurrences starting 03/18/2025 until 04/17/2026 [facility] Work Phone: Comment on above: 1 Occurrences starting 03/18/2025 until 04/17/2026 CT Chest WO contrast CT CHEST WO IVCON Radiology Routine Myasthenia gravis (HCC) 04/05/2025 1:57 PM EDT [facility] Work Phone: End: 02-16-2026 CT Head WO contrast CT BRAIN WO IVCON Radiology STAT Dysphagia, unspecified type Vision changes 1 Occurrences starting 01/17/2025 until 02/16/2026 [facility] Work Phone: Comment on above: 1 Occurrences starting 01/17/2025 until 02/16/2026 Doppler ultrasonography of aorta [facility] End: 03-23-2024 ECG COMPLETE ECG COMPLETE ECG Routine SOB (shortness of breath) Coronary artery 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 rich plaque Chest pain on breathing 1 Occurrences starting 03/23/2023 until 03/23/2024 [facility] Work Phone: Comment on above: 1 Occurrences starting 03/23/2023 until 03/23/2024 End: 03-23-2024 Echocardiography ECHO Cardiology Routine SOB (shortness of breath) Coronary artery 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 rich plaque Chest pain on breathing 1 Occurrences starting 03/23/2023 until 03/23/2024 [facility] Work Phone: Comment on above: 1 Occurrences starting 03/23/2023 until 03/23/2024 End: 04-16-2025 EGD DIAGNOSTIC EGD DIAGNOSTIC Endoscopy Routine Generalized abdominal pain Gastroesophageal reflux disease without esophagitis 1 Occurrences starting 04/16/2024 until 04/16/2025 [facility] Comment on above: 1 Occurrences starting 04/16/2024 until 04/16/2025 ENTERIC BACTERIAL PANEL BY PCR E NTERIC BACTERIAL PANEL BY PCR Lab Routine Diarrhea, unspecified type Ordered: 09/26/2023 [facility] Work Phone: Comment on above: Ordered: 09/26/2023 ENTERIC BACTERIAL PANEL BY PCR E NTERIC BACTERIAL PANEL BY PCR Lab Routine Chronic diarrhea Generalized abdominal pain Ordered: 03/26/2024 [facility] Comment on above: Ordered: 03/26/2024 ENTERIC BACTERIAL PANEL BY PCR [facility] Comment on above: Release Upon Ordering for 1 Occurrences starting 05/23/2024 End: 04-16-2025 Flexible sigmoidoscopy study COLONOSCOPY DIAGNOSTIC Endoscopy Routine Chronic diarrhea Generalized abdominal pain 1 Occurrences starting 04/16/2024 until 04/16/2025 [facility] Work Phone: Comment on above: 1 Occurrences starting 04/16/2024 until 04/16/2025 Giardia lamblia+Cryp tosporidium sp Ag [Presence] in Stool by Immunoassay CRYPTOSPORIDIUM AND GIARDIA ANTIGENS BY EIA Microbiology Routine Chronic diarrhea Generalized abdominal pain Ordered: 03/26/2024 [facility] Comment on above: Ordered: 03/26/2024 Giardia lamblia+Cryp tosporidium sp Ag [Presence] in Stool by Immunoassay [facility] Comment on above: Release Upon Ordering for 1 Occurrences starting 05/23/2024 Helicobacter pylori Ag [Presence] in Stool by Immunoassay H PYLORI AG BY EIA,STOOL Microbiology Routine Diarrhea, unspecified type Ordered: 09/26/2023 [facility] Work Phone: Comment on above: Ordered: 09/26/2023 End: 03-01-2026 MR Brain WO contrast MRI BRAIN WO IVCON Radiology STAT Other symptoms and signs involving the nervous system 1 Occurrences starting 01/30/2025 until 03/01/2026 [facility] Work Phone: Comment on above: 1 Occurrences starting 01/30/2025 until 03/01/2026 End: 04-21-2024 NM CARDIAC PERF STRESS/PHARM NM CARDIAC PERF STRESS/PHARM Radiology Routine SOB (shortness of breath) Coronary artery 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 rich plaque Chest pain on breathing 1 Occurrences starting 03/23/2023 until 04/21/2024 [facility] Work Phone: Comment on above: 1 Occurrences starting 03/23/2023 until 04/21/2024 PANC ELASTASE, FECAL PANC ELASTA SE, FECAL Lab Routine Chronic diarrhea Generalized abdominal pain Ordered: 03/26/2024 [facility] Work Phone: Comment on above: Ordered: 03/26/2024 PANC ELASTASE, FECAL [facility] Comment on above: Release Upon Ordering for 1 Occurrences starting 05/23/2024 Patient Education [facility] Work Phone: Patient referral [facility] Work Phone: End: 04-21-2024 Radex spine lumbosacral 2/3 views XR LUMBAR GENERAL 3V AP/LAT/L5-S1 Radiology Routine 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 1 Occurrences starting 03/23/2023 until 04/21/2024 [facility] Work Phone: Comment on above: 1 Occurrences starting 03/23/2023 until 04/21/2024 Radex spine lumbosac ral 2/3 views XR LUMBAR GENERAL 3V AP/LAT/L5-S1 Radiology Routine 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 03/23/2023 4:42 PM EDT [facility] Work Phone: End: 04-21-2024 Radiologic exam chest 2 views XR CHEST 2V FRONTAL/LAT Radiology Routine SOB (shortness of breath) Coronary artery 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 rich plaque Chest pain on breathing 1 Occurrences starting 03/23/2023 until 04/21/2024 [facility] Work Phone: Comment on above: 1 Occurrences starting 03/23/2023 until 04/21/2024 Radiologic exam chest 2 views XR CHEST 2V FRONTAL/LAT Radiology Routine SOB (shortness of breath) Coronary artery 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 rich plaque Chest pain on breathing 03/23/2023 4:41 PM EDT [facility] Work Phone: SURGICAL PATHOLOGY [facility] Work Phone: Comment on above: Release [...] plaque 1 Occurrences starting 09/22/2022 until 09/22/2023 [facility] Work Phone: Comment on above: 1 Occurrences starting 09/22/2022 until 09/22/2023 End: 05-31-2024 US ABD AORTA COMPLETE VAS LAB US ABD AORTA COMPLETE VA S LAB Vascular Lab Routine Infrarenal abdominal aortic aneurysm (AAA) without rupture (HCC) 1 Occurrences starting 05/31/2023 until 05/31/2024 [facility] Work Phone: Comment on above: 1 Occurrences starting 05/31/2023 until 05/31/2024 End: 10-03-2024 US Abdominal Aorta US ABD AORTA COMPLETE VAS LAB Vascular Lab Routine Infrarenal abdominal aortic aneurysm (AAA) without rupture (HCC) 1 Occurrences starting 10/04/2023 until 10/03/2024 [facility] Work Phone: Comment on above: 1 Occurrences starting 10/04/2023 until 10/03/2024 US Carotid arteries [facility] End: 10-03-2024 US Carotid arteries - bilateral US CAROTID ARTERIES BI L VAS LAB Vascular Lab Routine Bilateral carotid artery stenosis 1 Occurrences starting 10/04/2023 until 10/03/2024 [facility] Work Phone: Comment on above: 1 [...] artery 1 Occurrences starting 09/22/2022 until 09/22/2023 [facility] Work Phone: Comment on above: 1 Occurrences starting 09/22/2022 until 09/22/2023 End: 05-31-2024 US CAROTID ARTERIES MELISSA VAS LAB US CAROTID ARTERIES BI L VAS LAB Vascular Lab Routine Bilateral carotid artery stenosis 1 Occurrences starting 05/31/2023 until 05/31/2024 [facility] Work Phone: Comment on above: 1 Occurrences starting 05/31/2023 until 05/31/2024 End: 04-21-2024 XR KNEE GENERAL 4V AP BOTH/PA BOTH/LAT/MERC BILATERAL XR KNEE GENERAL 4V AP BOTH/PA BOTH/LAT/MERC BILATERAL Radiology Routine Bilateral chronic knee pain 1 Occurrences starting 03/23/2023 until 04/21/2024 [facility] Work Phone: Comment on above: 1 Occurrences starting 03/23/2023 until 04/21/2024 XR KNEE GENERAL 4V A P BOTH/PA BOTH/LAT/MERC BILATERAL XR KNEE GENERAL 4V AP BOTH/PA BOTH/LAT/MERC BILATERAL Radiology Routine Bilateral chronic knee pain 03/23/2023 4:42 PM EDT [facility] Work Phone: End: 12-26-2025 XR Shoulder - left 3 Views XR SHOULDER GENERAL 3V OR MORE AP/TRUE AP/OTHER LEFT Radiology Routine Acute pain of both shoulders 1 Occurrences starting 11/26/2024 until 12/26/2025 [facility] Work Phone: Comment on above: 1 Occurrences starting 11/26/2024 until 12/26/2025 XR Shoulder - left 3 Views XR SH OULDER GENERAL 3V OR MORE AP/TRUE AP/OTHER LEFT Radiology Routine Acute pain of both shoulders 11/26/2024 3:50 PM EDT [facility] End: 12-26-2025 XR Shoulder - right 3 Views XR SHOULDER GENERAL 3V OR MORE AP/TRUE AP/OTHER RIGHT Radiology Routine Acute pain of both shoulders 1 Occurrences starting 11/26/2024 until 12/26/2025 [facility] Comment on above: 1 Occurrences starting 11/26/2024 until 12/26/2025 XR Shoulder - right 3 Views XR S HOULDER GENERAL 3V OR MORE AP/TRUE AP/OTHER RIGHT Radiology Routine Acute pain of both shoulders 11/26/2024 3:50 PM EDT [facility] End: 12-26-2025 XR Thoracic spine AP and Lateral and Swimmers XR THORACIC GENERAL 3V AP/LAT/SWIMMERS Radiology Routine Upper back pain 1 Occurrences starting 11/26/2024 until 12/26/2025 [facility] Comment on above: 1 Occurrences starting 11/26/2024 until 12/26/2025 XR Thoracic spine AP and Lateral and Swimmers XR THORACIC GENERAL 3V AP/LAT/SWIMMERS Radiology Routine Upper back pain 11/26/2024 3:50 PM EDT [place] Immunizations Immunization Date Immunization Notes Care Provider Fa angelito 05-02-2023 tetanus toxoid, redu berta diphtheria toxoid, and acellular pertussis vaccine, adsorbed JESUS MIJARES MD [facility] 01-14-2023 zoster vaccine recombinant JESUS MIJARES MD [facility] 04-01-2022 influenza virus vacc ine, unspecified formulation Nurse Wstr Work Phone: [facility] 06-16-2021 influenza virus vacc ine, unspecified formulation EJSUS MIJARES MD [facility] 06-16-2021 influenza, high-dose , quadrivalent vaccine (FLUZONE HIGH DOSE QUADRIVALENT) Samson Ragsdale DO Work Phone: [facility] Work Phone: 10-22-2020 COVID-19 vaccine, fu ll dose (MODERNA) Samson Ragsdale DO Work Phone: [facility] Work Phone: 09-24-2020 COVID-19 vaccine, fu ll dose (MODERNA) Samson Ragsdale DO Work Phone: [facility] Work Phone: Comment on above: Result Comment: 2022: [id number] 05-09-2020 influenza virus vacc ine, unspecified formulation JESUS MIJARES MD [facility] 05-09-2020 influenza, high dose seasonal, preservative-free Samson Ragsdale DO Work Phone: [facility] Work Phone: 08-27-2019 influenza virus vacc ine, unspecified formulation JESUS MIJARES MD [facility] 08-27-2019 influenza, high dose seasonal, preservative-free Samson Ragsdale DO Work Phone: [facility] Work Phone: 05-01-2018 influenza virus vacc ine, unspecified formulation JESUS MIJARES MD [facility] 05-01-2018 influenza, high dose seasonal, preservative-free Samson Ragsdale DO Work Phone: [facility] Work Phone: 05-18-2017 influenza virus vacc ine, unspecified formulation JESUS MIJARES MD [facility] 05-18-2017 influenza, high dose seasonal, preservative-free Samson Ragsdale DO Work Phone: [facility] Work Phone: 07-28-2016 influenza virus vacc ine, unspecified formulation JESUS MIJARES MD [facility] 07-28-2016 influenza, high dose seasonal, preservative-free Samson Ragsdale DO Work Phone: [facility] Work Phone: 05-01-[address] Samson Ragsdale DO Work Phone: [facility] 09-02-2015 pneumococcal conjuga te vaccine, 13 valent Samson Ragsdale DO Work Phone: [facility] Work Phone: 06-02-2015 influenza virus vacc ine, unspecified formulation JESUS MIJARES MD [facility] 06-02-2015 influenza, high dose seasonal, preservative-free Samson Ragsdale DO Work Phone: [facility] Work Phone: 06-02-2015 pneumococcal polysaccharide vaccine, 23 valent Samson Ragsdale DO Work Phone: [facility] Work Phone: 05-01-2015 pneumococcal conjuga te vaccine, [address] Davies Ragsdale DO Work Phone: [facility] 05-23-2014 influenza virus vacc ine, unspecified formulation JESUS MIJARES MD [facility] 05-23-2014 influenza, seasonal, injectable Samson Ragsdale DO Work Phone: [facility] 07-13-2013 influenza virus vacc ine, unspecified formulation Samson Ragsdale DO Work Phone: [facility] 07-31-2012 zoster vaccine, live Samson Ragsdale DO Work Phone: [facility] 05-26-2009 influenza virus vacc ine, unspecified formulation Samson Ragsdale DO Work Phone: [facility] Work Phone: 05-18-2008 influenza virus vacc ine, unspecified formulation Samson Ragsdale DO Work Phone: [facility] 01-27-2008 pneumococcal polysaccharide vaccine, 23 valent JESUS MIJARES MD [facility] Comment on above: Reason for Medicatio n: Other (see order comments) 06-20-2004 pneumococcal polysaccharide vaccine, 23 valent Samson Ragsdale DO Work Phone: [facility] Work Phone: 03-18-2004 adenovirus, type 4 a nd type 7, live, oral JESUS MIJARES MD [facility] 03-18-2004 hepatitis A vaccine, adult dosage JESUS MIJARES MD [facility] 03-18-2004 poliovirus vaccine, inactivated JESUS MIJARES MD [facility] 08-01-2001 diphtheria and tetan us toxoids, adsorbed for pediatric use Samson Ragsdale DO Work Phone: [facility] Work Phone: 07-03-1999 pneumococcal polysaccharide vaccine, 23 valent Samson Ragsdale DO Work Phone: [facility] Payers Date Payer Category Payer Self-pay [id number] 2025 Self-pay [id number] 2025 Self-pay 2023 Medicare [id number] 2016 Medicare MEDICARE MEDICAR E A AND B [id number] 2016-Present [phone] [address] [address] [place] [address] Medicare [id number] 2015 Private Health Insurance HUMANA HUMANA MEDICARE SUPPLEMENT [id number] 2015-Present [phone] [address] [address] [place] [address] Indemnity [id number] 2015 Private Health Insurance [id number] 2015 Private Health Insurance [id number] 2006 Medicare [id number] 2006 Medicare [id number] 1941 Unknown [id number] Unknown [id number] 462 Unknown [id number] 462 Unknown [id number] 462 Unknown [id number] 462 Unknown [id number] 462 Unknown [id number] 462 Unknown [id number] 462 Unknown [id number] 462 Unknown [id number]. 462 Unknown [id number] 462 Unknown [id number] 462 Unknown [id number] 462 Unknown [id number] 462 Unknown [id number] 462 Unknown [id number] 462 Social History Date Type Detail Facility Start: 07-28-2022 End: 04-02-2025 Tobacco smoking status NHIS Ex-smoker [facility] Comment on above: quit 1987 History of tobacco use Cigarette Smoker [facility] History of tobacco use Pipe Smoker [facility] History of tobacco use Cigar Smoker [facility] Start: 11-25-2021 End: 04-02-2025 Alcohol intake Current drinker of alcohol (finding) [facility] Start: 1940 Sex Assigned At Not on file C [facility] Start: 05-10-2020 End: 03-23-2022 Exposure to SARS-CoV-2 (event) Not sure [facility] Work Phone: History of tobacco use Current smoker [facility] Start: 07-28-2022 End: 03-23-2023 Cigarettes smoked current (pack per day) - Reported 2 [facility] Work Phone: Start: 07-28-2022 End: 04-02-2025 Tobacco use and exposure Smokeless tobacco non-user [facility] Start: 07-28-2022 Tobacco Comment quit in 1987 [facility] Start: 11-30-2022 End: 03-23-2023 Tobacco use panel [facility] Work Phone: Start: 07-02-2012 Adult Depression Screening Assessment 0 [facility] Work Phone: Sex Assigned At [facility] Start: 12-21-2016 Alcohol Alcohol [facility] Start: 12-21-2016 Lives Lives [facility] Start: 1940 Sex Assigned At Male [facility] How often to you hav e a drink containing alcohol? Monthly or less [facility] How many standard drinks containing alcohol do you have on a typical day? 1 or 2 [facility] How often do you hav e 6 or more drinks on 1 occasion? Never [facility] Start: 03-18-2025 Education 13 [facility] Medical Equipment Procedure Code Equipment Code Equipment Original Text Equipment Identifier Dates [id number], [id number], [id number], [id number], [id number], [id number], [id number], [id number], [id number], [id number] Start: 06-27-2017 End: 10-25-2024 Comment on above: [...] Yes Functional Status Date Assessment Result Facility 03-18-2025 Total score [AUDIT-C] 1 03/18/20 1:51 PM Manuela Morales MD [facility] 05-28-2023 Functional Status Ambulation in [facility] 05-28-2023 Functional Status Room check performed [facility] 05-28-2023 Functional Status [facility] 05-28-2023 Functional Status [facility] 05-27-2023 Functional Status [facility] 05-27-2023 Functional Status [facility] 05-27-2023 Functional Status [facility] 05-26-2023 Functional Status Patient refused [facility] 05-26-2023 Functional Status Nurse Milagros trotter q2hrs Performed 11am-11pm [facility] 05-26-2023 Functional Status [facility] 05-25-2023 Functional Status [facility] 05-24-2023 Functional Status Sensory Deficits None [facility] 12-05-2014 Are you deaf, or do you have serious difficulty hearing No 12/05/2014 8:14 AM Stephanie Kern MA No [facility] 12-05-2014 Are you blind, or do you have serious difficulty seeing, even when wearing glasses No 12/05/2014 8:14 AM Stephanie Kern MA No [facility] 12-05-2014 Do you have serious difficulty walking or climbing stairs No 12/05/2014 8:14 AM Stephanie Kern MA No [facility] 12-05-2014 Do you have difficul ty dressing or bathing No 12/05/2014 8:14 AM Stephanie Kern MA No [facility] 12-05-2014 Because of a physica l, mental, or emotional condition, do you have difficulty doing errands alone such as visiting a physician's office or shopping No 12/05/2014 8:14 AM Stephanie Kern MA No [facility] Mental Status Date Assessment Result Facility 05-28-2023 Mental Status Orientation Oriented x 4 [facility] 05-28-2023 Mental Status [facility] 05-28-2023 Mental Status [facility] 05-27-2023 Mental Status Orientation Asse ssment Oriented x 4 [facility] 05-27-2023 Mental Status [facility] 05-26-2023 Mental Status [facility] 12-05-2014 Because of a physica l, mental, or emotional condition, do you have serious difficulty concentrating, remembering, or making decisions No 12/05/2014 8:14 AM EDT Stephanie Hayes, ROSS No [facility] Clinical Notes 08-28-2019 to 05-09-2025 Samson Ragsdale, DO - 04/09/2025 7:40 AM Jordi Woods RT(Yousif) - 04/05/2025 1:40 PM EDTPatient InstructionsPatient InstructionsManuela Lacy MD - 03/18/2025 2:00 PM EDT Note Date & Type Note Facility 05-09-2025 Note HNO ID: [id number] Author: CONY CHENG APRN.KEELER POLYGRAPH OPERATOR Service: ? Author Type: Nurse Practitioner Type: Progress Notes Filed: 05/09/2025 10:46 Note Text: This is a 84 year old male who presents today with: Questions on CT scan results HISTORY OF PRESENT ILLNESS: Hasmukh is an 84-year-old male with a history of myasthenia gravis and prostate cancer, presenting for follow-up on a recent CT chest revealing a pulmonary nodule. Pulmonary Nodule: - Recent CT chest ordered by neurology revealed a pulmonary nodule. - Hasmukh expresses concern about the nodule and desires further evaluation. - Denies current dyspnea But is having current respiratory symptoms, constant rhinorrhea clear and thick, coughing fits and at times thick clear sputum. He does have some sinus pressure in face and head as well. Symptoms for last week or so. - Followed by pulmonology; has an upcoming appointment with Dr. 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 Myasthenia Gravis: - Currently managed with prednisone 30 mg daily x1 month. - Taking additional medication for MG. Prostate Cancer: - History of prostate cancer with prostatectomy performed. - No recent follow-up with urology; last PSA levels were reportedly normal. HCC review: Dementia This is not mentioned in his neurology visits, only cerebral microvascular disease. This provider is unable to verify diagnosis of this at this time, appears to have been added by a Eli Lauren in [facility] 2023 but unable to find connection. 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 Last EKG for cc May 2024 doesn't mention this. Sees cardiology at [facility], last seen to reestablish care 01/15. Has history of CABG. Stress and echo completed in December 2024 as well. They did order a pulmonology consult at that time Prostate Cancer 2001 diagnosis treated with RRP, initial PSA 11. Most recent PSA 0.05 Sep 2024. Changing to history of prostate cancer. PAST MEDICAL HISTORY: PAST MEDICAL HISTORY Diagnosis Date Abdominal aneurysm [...] by Kong Esophagitis Generalized osteoarthrosis, unspecified site Gout Internal hemorrhoid 04/26/2017 colonoscopy by Cebujaison Iron deficiency anemia Malignant neoplasm of prostate [...] Xience stent to L circumflex EGD 04/26/2017 [facility] Dr. Nolan Triana EGD 05/23/2024 EGD TRANSORAL BIOPSY SINGLE/MULTIPLE 07/10/2007 PAST SURGICAL HISTORY OF 01/26/2008 stent placement ramus and prox ramus PAST SURGICAL HISTORY OF heart stents PROSTATECTOMY PERINEAL RADICAL 2000 Prostatectomy, radical- Dr. 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 Yousif Triana; next screening colonoscopy in 10yrs, [facility] UNLISTED DIAGNOSTIC GASTROENTEROLOGY PROCEDURE 06/06/2018 ALLERGIES Atorvastatin, Crestor [Rosuvastatin Calcium], Glucosamine, Motrin [Ibuprofen], Pravastatin, and Qyxtxty-Pbr-Wwm Reductase Inhibitors MEDICATIONS Current Outpatient Medications Medication Sig 0.9 % sodium chloride (NACL 0.9%) infusion Inject 35,400 mL intravenously as directed. Over 2 hours. iv contrast (will be provided with radiology test) CT Chest W -Inject, intravenously, once for 1 dose.No IV access, insert saline lock prior to the beginning of sedation, infusion, injection of imaging exam. Discontinue saline lock post exam. If Pt. has a central line or IVAD, may access for administration according to line specific nursing protocol. Once exam is complete flush line and de-access according to line specific nursing protocol in theCT contrast administration guidelines link. predniSONE (DELTASONE) 5 mg tablet Take 3 tablets by mouth once daily. Take 15 mg once daily (more content not included)... [facility] 04-15-2025 Note HNO ID: [id number] Author: MANUELA LACY MD Service: ? Author Type: Physician Type: Progress Notes Filed: 04/18/2025 15:57 Note Text: Last Office Visit: 03/18/2025 Myasthenia Gravis History: Onset: 11/2024 Body region: oculobulbar Serostatus: AchR B/B/M positive EMG/RNS: not done Thymus status: intact, CT chest 04/05/2025 negative for mass Previous treatment trials: prednisone 30 mg Crisis history: none Last exacerbation: none Current symptomatic therapy: pyridostigmine 30 mg TID Current immunotherapy: prednisone 30 mg daily Side effects: hyperglycemia Plan at last office visit: - Start prednisone 30 mg daily; discussed risks and benefits, including potential hyperglycemia, immunosuppression, and other side effects. - Continue pyridostigmine 60 mg ? tablet TID; may increase to 1 tablet TID if needed for symptom control. - Order CT chest to evaluate for thymoma. - Provided education on disease mechanism, potential triggers for exacerbation (infection, stress, certain medications), and the importance of medication adherence. - Provided list of medications to avoid. - Advised to call if symptoms worsen or if new symptoms develop. - Follow-up in 1 month to reassess symptoms and medication tolerance. Recording using SureVisit software for draft documentation of the visit was discussed with the patient/authorized provider service representative; all questions welcomed and answered. Patient/authorized provider service representative agreed to proceed S: Hasmukh Gage reports improvement in swallowing and ocular symptoms but notes persistent drooling from the corners of his mouth. He experiences tongue biting on the left side when chewing on the right but not when chewing on the left. He does not endorse choking or needing to modify his diet to prevent choking. He reports stable weight after a previous loss of 22 pounds over eight weeks earlier this year and is concerned about maintaining muscle mass. He consumes a protein supplement (Premier Protein) providing 30 grams of protein daily unless he eats a large meal. He reports occasional diplopia when fatigued and looking hard to the left but does not experience it daily. He notes a sensation of puffiness in his eyes, which he attributes to prednisone use. He does not endorse significant ptosis, stating it occurs only when tired. He describes his speech as normal and does not report issues with arm elevation or rising from a chair. He does not endorse jaw fatigue. He reports chronic exertional dyspnea, which he attributes to longstanding heart problems. He notes that his right foot tends to go to sleep when sitting, requiring caution when standing to prevent falls. He is currently taking pyridostigmine 30 mg three times daily and prednisone 30 mg daily. He reports difficulty cutting the pyridostigmine tablets in half due to them crumbling and inquires about adjusting the dosing schedule. He expresses a desire to reduce prednisone due to side effects, including elevated blood glucose levels, which have increased from the 90s to 130-159 mg/dL. He has discontinued milk and ice cream due to constipation. 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 He expresses concern about maintaining finger dexterity for playing music. MG - Activities of Daily Living (MG-ADL) 1. Talkin=Normal 2. Chewin=Normal can bite tongue if he chews on the right 3. Swallowin=Normal eats slowly 4. Breathin=Shortness of breath with exertion related to heart problems? 5. Impairment of ability to brush teeth or comb hair: 0=None 6. Impairment of ability to arise from a chair: 0=None 7. Double vision: 1=Occurs, but not daily with extreme left gaze 8. Eyelid droop: 1=Occurs, but not daily MG-ADL Total Score: 3 O: BP 142/67 (BP Site: Left Arm, BP Position: Sitting, BP Cuff Size: Regular Adult) Pulse 80 Ht 172.7 cm (5' 8) Wt 70.8 kg (156 lb) SpO2 98% BMI 23.72 kg/m? Able to count to 78 in one breath MS: alert and responsive, language intact CN: EOMI, L ptosis present 2mm but no worsening with 1 minute of sustained upgaze, with upgaze diplopia develops after 30 seconds, V1-V3 intact bilaterally, face symmetrical, hearing grossly intact bilaterally, palatal elevation and tongue protrusion midline, no dysarthria, bilateral neck rotation 5/5, shoulder shrug 5/5 Motor: 5/5 neck flexion and extension, nl tone and bulk, able to arise from a chair without using hands, no fatigue of deltoids with repetitive testing Strength: Right Left Infraspinatus 5 5 Deltoids 5 5 Biceps 5 5 Triceps 5 5 Pronators 5 4 Supinators 5 5 Wrist Extensors 5 5 Wrist Flexors 5 5 Finger Extensors 5 5 Finger Flexors (med) 5 5 Finger Flexors (uln) 5 5 Finger Abductors 5 5 Hip Flexors 5 5 Hip Extensors 5 5 Hip Abductors 5 5 Hip Adductors 5 5 Knee Extensors 5 5 Knee Flexors 5 5 Ankle Dorsiflexors 4- 5 Ankle Noe (more content not included)... [facility] 04-09-2025 Note HNO ID: [id number] Author: SAMSON RAGSDALE, DO Service: ? Author Type: Physician Type: Progress Notes Filed: 04/09/2025 07:48 Note Text: Patient presents with: 6 Month Exam HPI: Alejo Gage is a 84 year old male who presents to the office today for review of health conditions. Concerns today: Stage 3 CKD, has been seen by Nephrology, asymptomatic. Cerebral microvascular disease, seen by Neurologist, no recent new symptoms. Trying to improve his muscle strength- able to walk without falls at this time Diagnosed with Myasthenia Gravis by Neurologist. Is starting on new medication to help with symptom management for vision, eyelids, muscle weakness and fatigue. Also to have additional testing of thymus. Mr. Gage has past history of diabetes. [...] HgA1C was Hemoglobin A1C (%) Date Value 03/25/2025 6.1 09/17/2024 6.3 09/09/2021 6.1 06/08/2021 6.0 ) Last Ophthalmology exam was within the past 3 months Mr. Gage reports history of hyperlipidemia. Current therapy includes diet and exercise. Denies side effects of muscle weakness or achiness. His most recent lipid panels are reviewed. Cholesterol, Total (mg/dL) Date Value 03/25/2025 201 09/09/2021 246 HDL Cholesterol (mg/dL) Date Value 03/25/2025 55 09/09/2021 40 LDL Cholesterol, Calculated (mg/dL) Date Value 03/25/2025 129 09/09/2021 178 Triglyceride (mg/dL) Date Value 03/25/2025 96 09/09/2021 142 Mr. Gage indicates a history of hypertension and states that he is feeling well and denies any symptoms referable to elevated blood pressure. Specifically denies headache, chest pain, palpitations, dyspnea, and peripheral edema. Patient denies any side effects of his medication(s) and is compliant with their regimen. Last 3 Encounter BP Readings: Date: BP: 04/02/2025 130/60 03/18/2025 126/65 02/20/2025 121/67 He watches his diet for sodium, low fat and low cholesterol some of the time. He does not check BP's generally. Alejo gets sporadic irregular exercise. PAST MEDICAL HISTORY [...] by Kong Esophagitis Generalized osteoarthrosis, unspecified site Gout Internal hemorrhoid 04/26/2017 colonoscopy by Kong Iron [...] Xience stent to L circumflex EGD 04/26/2017 [facility] Dr. Nolan Triana EGD 05/23/2024 EGD TRANSORAL BIOPSY SINGLE/MULTIPLE 07/10/2007 PAST SURGICAL HISTORY OF 01/26/2008 stent placement ramus and prox ramus PAST SURGICAL HISTORY OF heart stents PROSTATECTOMY PERINEAL RADICAL 2000 Prostatectomy, radical- Dr. 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 Yousif Triana; next screening colonoscopy in 10yrs, [facility] UNLISTED DIAGNOSTIC GASTROENTEROLOGY PROCEDURE 06/06/2018 SOCIAL HISTORY[1] FAMILY HISTORY Problem Relation Age of Onset Heart Mother Hypertension Father COPD Father Ischemic Heart Disease Son Ischemic Heart Disease Son Allergies: ALLERGIES Allergen Reactions Atorvastatin Unknown Crestor [Rosuvastat* Other: See Comments Muscle pain Glucosamine Unknown Nerve pain Motrin [Ibuprofen] Rash Pravastatin Other: See Comments muscle aches Yjtjpjk-Exh-Ihp Red* Other: See Comments myalgia Curr (more content not included)... [facility] 04-09-2025 History of Present illness Narrative Patient presents with: 6 Month Exam HPI: Alejo Gage is a 84 year old male who presents to the office today for review of health conditions. Concerns today: Stage 3 CKD, has been seen by Nephrology, asymptomatic. Cerebral microvascular disease, seen by Neurologist, no recent new symptoms. Trying to improve his muscle strength- able to walk without falls at this time Diagnosed with Myasthenia Gravis by Neurologist. Is starting on new medication to help with symptom management for vision, eyelids, muscle weakness and fatigue. Also to have additional testing of thymus. Mr. Gage has past history of diabetes. [...] HgA1C was Hemoglobin A1C (%) Date Value 03/25/2025 6.1 09/17/2024 6.3 09/09/2021 6.1 06/08/2021 6.0 ) Last Ophthalmology exam was within the past 3 months Mr. Gage reports history of hyperlipidemia. Current therapy includes diet and exercise. Denies side effects of muscle weakness or achiness. His most recent lipid panels are reviewed. Cholesterol, Total (mg/dL) Date Value 03/25/2025 201 09/09/2021 246 HDL Cholesterol (mg/dL) Date Value 03/25/2025 55 09/09/2021 40 LDL Cholesterol, Calculated (mg/dL) Date Value 03/25/2025 129 09/09/2021 178 Triglyceride (mg/dL) Date Value 03/25/2025 96 09/09/2021 142 Mr. Gage indicates a history of hypertension and states that he is feeling well and denies any symptoms referable to elevated blood pressure. Specifically denies headache, chest pain, palpitations, dyspnea, and peripheral edema. Patient denies any side effects of his medication(s) and is compliant with their regimen. Last 3 Encounter BP Readings: Date: BP: 04/02/2025 130/60 03/18/2025 126/65 02/20/2025 121/67 He watches his diet for sodium, low fat and low cholesterol some of the time. He does not check BP's generally. Alejo gets sporadic irregular exercise. PAST MEDICAL HISTORY [...] by Kong Esophagitis Generalized osteoarthrosis, unspecified site Gout Internal hemorrhoid 04/26/2017 colonoscopy by Kong Iron [...] Xience stent to L circumflex EGD 04/26/2017 [facility] Dr. Nolan Triana EGD 05/23/2024 EGD TRANSORAL BIOPSY SINGLE/MULTIPLE 07/10/2007 PAST SURGICAL HISTORY OF 01/26/2008 stent placement ramus and prox ramus PAST SURGICAL HISTORY OF heart stents PROSTATECTOMY PERINEAL RADICAL 2000 Prostatectomy, radical- Dr. 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 R Cebul; next screening colonoscopy in 10yrs, [facility] UNLISTED DIAGNOSTIC GASTROENTEROLOGY PROCEDURE 06/06/2018 SOCIAL HISTORY[1] FAMILY HISTORY Problem Relation Age of Onset Heart Mother Hypertension Father COPD Father Ischemic Heart Disease Son Ischemic Heart Disease Son Allergies: ALLERGIES Allergen Reactions Atorvastatin Unknown Crestor [Rosuvastat* Other: See Comments Muscle pain Glucosamine Unknown Nerve pain Motrin [Ibuprofen] Rash Pravastatin Other: See Comments muscle aches Fhawdvw-Stm-Ywn Red* Other: See Comments myalgia Current Meds: pyridostigmine (MESTINON) 60 mg tablet Take 60 mg by mouth three times a day. predniSONE (DELTASONE) 10 mg tablet Take 3 tablets by mouth once daily. pyridostigmine (MESTINON) 60 mg tablet Take a half tablet three times a day with food. 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 cyanocobalamin (B-12 DOTS) 500 mcg tablet Take 1 tablet by mouth once daily. fluticasone-salmeterol (ADVAIR DISKUS) 100-50 mcg/dose inhaler Inhale 1 puff as instructed two times a day. (Patient not taking: Reported on 03/18/2025) triamcinolone acetonide (NASACORT ALLERGY) 55 mcg nasal inhaler Use 2 sprays in each nostril once daily. (Patient not taking: Reported on 03/18/2025) zinc sulfate (ZINC-15 ORAL) Take 1 tablet [...] tablet by mouth two times a day. (Patient taking differently: Take 25 mg by mouth once daily. Taking once daily as reported by patient - not taking as ordered) isosorbide mononitrate ER (IMDUR) 30 mg 24 hr tablet Take 1 tablet by mouth once daily. clopidogrel (PLAVIX) 75 mg tablet Take 1 tablet by mouth once daily. allopurinol (ZYLOPRIM) 100 mg tablet Take 1 tablet by mouth once daily. insulin glargine (BASAGLAR KWIKPEN U-100 INSULIN) 100 unit/mL (3 mL) Inject 10 Units subcutaneously daily at bedtime. Insulin Huntley, Disposable, (BD ULTRA-FINE BENNY PEN NEEDLE) 32 gauge x 5/32 Use once daily with Lantus as directed diclofenac sodium (VOLTAREN) 1 % topical gel Apply 2 g to affected area four times daily. hydrocortisone 2.5 % cream Apply 1 application to affected area twice daily. Location: face (Patient not taking: Reported on 03/18/2025) Blood-Glucose Meter (FREESTYLE LITE METER) monitoring kit 1 Each as directed. Lancets lancets Use as instructed potassium chloride (KLOR-CON 10) 10 mEq tablet Take 1 tablet by mouth once daily. (Patient not taking: Reported on 03/18/2025) CHOLECALCIFEROL, VITAMIN D3, (VITAMIN D3 ORAL) Take 600 mg by mouth once daily. coenzyme Q10 (COENZYME Q-10) 100 mg cap capsule Take 1 capsule by mouth. (Patient taking differently: Take 200 mg by mouth.) CALTRATE-600 PLUS VITAMIN D3 600 MG-200 UNIT ORAL TAB TAKE TWO TABLETS DAILY. Review of Systems: The remainder of the review of systems is negative. PE: 04/02/25 1459 BP: 130/60 Pulse: 64 Resp: 20 Temp: 36 C (96.8 F) TempSrc: Left Tympanic Weight: 71.7 kg (158 lb) Gen: A&O, NAD, non-toxic appearing, Pleasant, [...] soft, NT, ND, +BS, no hepatosplenomegaly MS: weakness of arms and legs symmetric Gait is stable but slowed Neuro: CN II-XII intact b/l, strength diminished b/l arms and legs mildly Skin: warm, dry, intact, No rashes or lesions on exposed skin. Foot exam: Monofilament abnormal on right and left feet. No edema ASSESSMENT/PLAN: 1. 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) - ICD9: 250.40, 585.4, V58.67, ICD10: E11.22, N18.4, Z79.4 (primary diagnosis) - Controlled - Continue current medications - Blood glucose monitoring on a once daily schedule - Counseled on healthy diet and regular exercise - eGFR: 39 Stable - Counseled on avoiding NSAIDs, adequate hydration - Counseled on low sodium diet - HEMOGLOBIN A1C - COMPREHENSIVE METABOLIC PANEL - COMPLETE BLOOD COUNT - THYROID STIMULATING HORMONE - VITAMIN B12 2. Cerebral microvascular disease - ICD9: 437.8, ICD10: I67.89 stable 3. Bilateral carotid artery stenosis - ICD9: 433.10, 433.30, ICD10: I65.23 stable 4. Hypertensive kidney disease with chronic kidney disease stage IV ([facility]) - ICD9: 403.90, 585.4, ICD10: I12.9, N18.4 - Controlled - Continue current medications - Recommend home blood pressure monitoring, to bring results to next visit - Encouraged sodium restriction, DASH or Mediterranean diet - Recommend regular aerobic exercise - eGFR: 39 Stable - Counseled on avoiding NSAIDs, adequate hydration - Counseled on low sodium diet 5. Essential hypertension, benign - ICD9: 401.1, ICD10: I10 - Controlled - Continue current medications - Recommend home blood pressure monitoring, to bring results to next visit - Encouraged sodium restriction, DASH or Mediterranean diet - Recommend regular aerobic exercise - Reviewed risks of hypertension and principles of treatment 6. CKD (chronic kidney disease) stage 4, GFR 15-29 ml/min ([facility]) - ICD9: 585.4, ICD10: N18.4 - eGFR: 39 Stable - Counseled on avoiding NSAIDs, adequate hydration - Counseled on low sodium diet - COMPREHENSIVE METABOLIC PANEL - COMPLETE BLOOD COUNT 7. Hypertensive heart disease without heart failure - ICD9: 402.90, ICD10: I11.9 - Controlled - Continue current medications - Recommend home blood pressure monitoring, to bring results to next visit - Encouraged sodium restriction, DASH or Mediterranean diet - Recommend regular aerobic exercise 8. Other polyneuropathy - ICD9: 357.89, ICD10: G62.89 stable 9. Arthritis, multiple joint involvement - ICD9: 716.99, ICD10: M12.9 stable 10. Pure hypercholesterolemia - ICD9: 272.0, ICD10: E78.00 stable - LIPID PANEL, FASTING 11. Vitamin D deficiency - ICD9: 268.9, ICD10: E55.9 Continue supplement - VITAMIN D 25 HYDROXY 12. Myasthenia gravis (HCC) - ICD9: 358.00, ICD10: G70.00 F/u with Neurologist Has additional testing New diagnosis, starting Mestinon medication Samson Ragsdale DO To ER if develops chest pain, shortness of breath, or severe worsening of symptoms. Discussed risks, benefits, alternatives, and potential side effects of medications. Patient expressed understanding and agreed with the plan. Samson Ragsdale DO [address] [place] [address] [1] Social History Tobacco Use Smoking status: Former Current packs/day: 2.00 Average packs/day: 2.0 packs/day for 20.0 years (40.0 ttl pk-yrs) Types: Cigarettes, Pipe, Cigars Smokeless tobacco: Never Tobacco comments: quit in 1987 Vaping Use Vaping status: Never Used Substance Use Topics Alcohol use: Yes Alcohol/week: 0.0 - 1.0 standard drinks of alcohol Comment: rarely Drug use: No documented in this encounter [facility] 04-05-2025 History of Present illness Narrative Radiology Service Progress Note PATIENT NAME: Alejo Gage DATE OF SERVICE: April 05, 2025 TIME: 1:48 PM PATIENT IDENTITY VERIFICATION COMPLETED USING TWO (2) IDENTIFIERS: Name and Date of confirmed by patient verbally. FALL SCREENING: Has the patient had 2 falls in the last year or 1 fall with injury or currently using an Ambulatory Assistive Device (Walker, Cane, Wheelchair, Crutches, etc.)? No PATIENT GENDER DATA: Assigned male at PATIENT RELEVANT IMPLANT DATA REVIEWED: Not Applicable PATIENT PRESENTS WITH AN IMPLANTABLE OR ATTACHED AREA COUNSELOR: No RADIOLOGY DEPARTMENT: CT; Exam(s) Completed: Chest. Anesthesia: No PERIPHERAL IV DATA: Not applicable SIGNED BY: RT Liz(R) April 05, 2025 1:48 PM documented in this encounter [facility] 04-05-2025 Note HNO ID: [id number] Author: JORDI MAGALLON RT(R) Service: Radiology Author Type: Technologist Type: Progress Notes Filed: 04/05/2025 13:53 Note Text: Radiology Service Progress Note PATIENT NAME: Alejo Gage DATE OF SERVICE: April 05, 2025 TIME: 1:48 PM PATIENT IDENTITY VERIFICATION COMPLETED USING TWO (2) IDENTIFIERS: Name and Date of confirmed by patient verbally. FALL SCREENING: Has the patient had 2 falls in the last year or 1 fall with injury or currently using an Ambulatory Assistive Device (Walker, Cane, Wheelchair, Crutches, etc.)? No PATIENT GENDER DATA: Assigned male at PATIENT RELEVANT IMPLANT DATA REVIEWED: Not Applicable PATIENT PRESENTS WITH AN IMPLANTABLE OR ATTACHED AREA COUNSELOR: No RADIOLOGY DEPARTMENT: CT; Exam(s) Completed: Chest. Anesthesia: No PERIPHERAL IV DATA: Not applicable SIGNED BY: RT Liz(R) April 05, 2025 1:[address] [facility] 04-02-2025 Instructions Samson Ragsdale DO - 04/02/2025 4:03 PM EDT Prune juice 4-8 oz a day Apple cider vinegar + lemon juice + warm water daily If this isn't helping your bowels then need to be taking 1/2 -1 capful of Miralax daily in water in the morning documented in this encounter [facility] 03-18-2025 Instructions Manuela Lacy MD - 03/18/2025 2:43 PM EDT Medications to avoid when you have myasthenia gravis: -Aminoglycoside antibiotics (e.g., gentamycin, neomycin, and tobramycin). May worsen MG. Use cautiously if no alternative treatment available. -Beta-blockers: May worsen MG. Use cautiously. -Botulinum toxin: Avoid use. -Chloroquine and hydroxychloroquine: May precipitate de trupti MG or worsen preexisting MG. Use only if necessary and observe for worsening. -D-Penicillamine: Used for Roland disease and rarely for rheumatoid arthritis. Strongly associated with causing MG. Avoid use. -Fluoroquinolone antibiotics (e.g., ciprofloxacin, levofloxacin, moxifloxacin, and ofloxacin): The [place] FDA has designated a black-box warning for these agents in MG. Use cautiously, if at all. -Immune checkpoint inhibitors (e.g., ipilimumab, pembrolizumab, atezolizumab, and nivolumab): Can precipitate de trupti MG or worsen preexisting MG. Use with caution as determined by oncologic status. -Iodinated radiologic contrast agents: Use cautiously and observe for worsening. -Macrolide antibiotics (e.g., erythromycin, azithromycin, and clarithromycin): May worsen MG. Use cautiously, if at all. -Magnesium Potentially dangerous if given intravenously. Use only if absolutely necessary and observe for worsening. -Procainamide: May worsen MG. Use with caution. -Statins (e.g., atorvastatin, pravastatin, rosuvastatin, and simvastatin): May rarely worsen or precipitate MG. Use with caution. -Telethromycin: Had been given a black-box warning by the [place] FDA contraindicating use in MG. Avoid use. documented in this encounter [facility] 03-18-2025 History of Present illness Narrative Referring Physician: Jud Maguire [address] [facility] [address] Consultation requested by Jud Maguire PA-C for an opinion regarding myasthenia gravis. My final recommendations will be communicated back to the requesting physician by way of shared Medical record or letter to requesting physician via fax or [place] mail. Recording using SureVisit software for draft documentation of the visit was discussed with the patient/authorized provider service representative; all questions welcomed and answered. Patient/authorized provider service representative agreed to proceed CC: myasthenia gravis HPI: Alejo Gage is an 84 year-old right-handed man who comes to clinic today in the company of his son regarding myasthenia gravis. Hasmukh Gage is an 84-year-old male with a history of myasthenia gravis, presenting for evaluation of weakness and double vision. Hasmukh, who is right-hand dominant, reports initial symptoms of dysphagia beginning in mid-November, followed by diplopia within a few days. He describes the diplopia as seeing double when looking to the left, which interferes with his ability to play the [employer] guitar. He also notes ptosis, which was first observed by Lala Godinez PA-C, at the [facility] in early January. He reports generalized muscle weakness in his arms, hands, fingers, legs, and neck, accompanied by significant fatigue. He does not endorse any changes in weakness over the past 3-4 months and does not report difficulty with ambulation or getting out of chairs. 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 He notes that his dyspnea improves with rest but is still present to a lesser degree. He also reports difficulty with overhead activities, such as washing his hair, which require extra effort. He has lost 20 pounds over the past 8-10 weeks, dropping from 174 to 154 pounds, due to difficulty swallowing and eating. He has been consuming mostly soft foods and liquids, avoiding bread, and requires water to assist with swallowing. He does not report difficulty chewing or swallowing liquids unless he drinks quickly. He does not endorse any speech difficulties. He has a history of peripheral neuropathy in his feet, described as a mild electrical shock sensation along the edge of his foot, which has been present for quite a while and has not changed recently. He does not report any new numbness or tingling. He also has a history of hearing problems, which he attributes to playing drums in the past. He does not endorse headaches and reports muscle fatigue but no pain. He has been taking pyridostigmine (Mestinon) 60 mg half tablet three times a day, which has improved his swallowing and reduced his diplopia. He notes that if he misses a dose, his swallowing becomes difficult again. He reports some loose stools with the medication but no other side effects. He is concerned about the impact of pyridostigmine on his stage 3 kidney disease and has a creatinine test scheduled with his family doctor, Dr. Samson Ragsdale, at the [facility]. He also reports chronic constipation and excessive gas, with belching occurring within 15 minutes of eating and passing gas within a couple of hours. He has not had a decent bowel movement in two years and alternates between severe constipation and diarrhea. He has undergone colonoscopies and a capsule endoscopy, which showed no blockages. He has a history of gout and has taken prednisone for gout attacks, with the last dose taken 3-4 months ago. He is concerned about the potential need for long-term prednisone use for myasthenia gravis and its impact on his blood sugar. MG - Activities of Daily Living (MG-ADL) 1. Talkin=Normal 2. Chewin=Normal 3. Swallowin=Frequent choking necessitating changes in diet 4. Breathin=Shortness of breath at rest 5. Impairment of ability to brush teeth or comb hair: 1=Extra effort, but no rest periods needed 6. Impairment of ability to arise from a chair: 0=None 7. Double vision: 2=Daily, but not constant 8. Eyelid droop: 0=None MG-ADL Total Score: 8 Prior Studies: Labs: normal: MMA, SPEP, B12, abnormal: HbA1c 6.3, creatinine 1.86, WSR 35, CRP 3.2, AchR B/B/M elevated MRI brain 01/31/2025: No evidence of acute intracranial abnormality. Scattered patchy and confluent T2 FLAIR hyperintense lesions are present in the bilateral supratentorial brain compatible with sequelae of chronic small vessel disease. 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 09/2015 4.15 cm Acute gastritis without mention of hemorrhage 04/26/2017 EGD by [facility] care planning 03/24/2022 [facility] can help [...] by [facility] Esophagitis Generalized osteoarthrosis, unspecified site Gout Internal hemorrhoid 04/26/2017 colonoscopy by [facility] Iron [...] Xience stent to L circumflex EGD 04/26/2017 [facility] Dr. Nolan Triana EGD 05/23/2024 EGD TRANSORAL BIOPSY SINGLE/MULTIPLE 07/10/2007 PAST SURGICAL HISTORY OF 01/26/2008 stent placement ramus and prox ramus PAST SURGICAL HISTORY OF heart stents PROSTATECTOMY PERINEAL RADICAL 2000 Prostatectomy, radical- Dr. 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 Yousif Triana; next screening colonoscopy in 10yrs, [facility] UNLISTED DIAGNOSTIC GASTROENTEROLOGY PROCEDURE 06/06/2018 FAMILY HISTORY Problem Relation Age of Onset Heart Mother Hypertension Father COPD Father Ischemic Heart Disease Son Ischemic Heart Disease Son SOCIAL HISTORY[1] BP 126/65 (BP Site: Left Arm, BP Position: Sitting, BP Cuff Size: Regular Adult) Pulse 68 Ht 172.7 cm (5' 8) Wt 69.8 kg (153 lb 14.1 oz) SpO2 95% BMI 23.40 kg/m Able to count to 67 in one breath L>R distal LE pitting edema Neurologic examination: MS: alert and responsive, language intact CN: pupils 2mm and ENTRY LEVEL BUSINESS 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 B, L eye with incomplete abduction, diplopia present in midposition and to L side, L ptosis present 2mm but no worsening with 1 minute of sustained upgaze, VFF, V1-V3 intact bilaterally, face symmetrical, hearing grossly intact bilaterally, palatal elevation and tongue protrusion midline, no dysarthria, bilateral neck rotation 5/5, shoulder shrug 5/5 Motor: 5/5 neck flexion and extension, nl tone and bulk, able to arise from a chair without using hands Strength: Right Left Infraspinatus 5 5 Deltoids 5 5 Biceps 5 5 Triceps 5 5 Pronators 5 4 Supinators 5 5 Wrist Extensors 5 5 Wrist Flexors 5 5 Finger Extensors 5 5 Finger Flexors (med) 5 5 Finger Flexors (uln) 5 5 Finger Abductors 5 5 Abd.Poll. Brevis 5 5 Flexor Poll. 5 5 Hip Flexors 5 5 Hip Extensors 5 5 Hip Abductors 5 5 Hip Adductors 5 5 Knee Extensors 5 5 Knee Flexors 5 5 Ankle Dorsiflexors 4- 5 Ankle Plantarflexors 5 5 Ankle Invertors 5- 5 Ankle Evertors 5- 5 Toe Flexors 4 5 Toe Extensors 4- 5 Sensory: LT: intact PP: reduced to 50% in feet Temp: intact Vib: reduced in toes JPS: 3/4 R great toe, otherwise intact Reflexes: 2+ bilateral biceps, triceps, brachioradialis, knees, and absent ankles; plantar responses downgoing bilaterally; no crossed adductors; no Andrade's or Troemner's bilaterally, no clonus bilateral ankles Cerebellar: FTN, HTS, and MOISÉS intact bilaterally Gait: mild R foot drop, unable to walk on heel, able to walk on toes, unable to tandem, Romberg intact Assessment and Plan: 1. Myasthenia gravis (HCC) (G70.00) - Start prednisone 30 mg daily; discussed risks and benefits, including potential hyperglycemia, immunosuppression, and other side effects. - Continue pyridostigmine 60 mg tablet TID; may increase to 1 tablet TID if needed for symptom control. - Order CT chest to evaluate for thymoma. - Provided education on disease mechanism, potential triggers for exacerbation (infection, stress, certain medications), and the importance of medication adherence. - Provided list of medications to avoid. - Advised to call if symptoms worsen or if new symptoms develop. - Follow-up in 1 month to reassess symptoms and medication tolerance. Manuela Lacy MD [1] Social History Tobacco Use Smoking status: Former Current packs/day: 2.00 Average packs/day: 2.0 packs/day for 20.0 years (40.0 ttl pk-yrs) Types: Cigarettes, Pipe, Cigars Smokeless tobacco: Never Tobacco comments: quit in 1987 Vaping Use Vaping status: Never Used Substance Use Topics Alcohol use: Yes Alcohol/week: 0.0 - 1.0 standard drinks of alcohol Comment: rarely Drug use: No documented in this encounter [facility] 03-18-2025 Note HNO ID: [id number] Author: MANUELA LACY MD Service: ? Author Type: Physician Type: Progress Notes Filed: 03/19/2025 11:35 Note Text: Referring Physician: Jud Maguire [address] [facility] [address] Consultation requested by Jud Maguire PA-C for an opinion regarding myasthenia gravis. My final recommendations will be communicated back to the requesting physician by way of shared Medical record or letter to requesting physician via fax or [place] mail. Recording using SureVisit software for draft documentation of the visit was discussed with the patient/authorized provider service representative; all questions welcomed and answered. Patient/authorized provider service representative agreed to proceed CC: myasthenia gravis HPI: Alejo Gage is an 84 year-old right-handed man who comes to clinic today in the company of his son regarding myasthenia gravis. Hasmukh Gage is an 84-year-old male with a history of myasthenia gravis, presenting for evaluation of weakness and double vision. Hasmukh, who is right-hand dominant, reports initial symptoms of dysphagia beginning in mid-November, followed by diplopia within a few days. He describes the diplopia as seeing double when looking to the left, which interferes with his ability to play the steel guitar. He also notes ptosis, which was first observed by Lala Godinez PA-C, at the [facility] in early January. He reports generalized muscle weakness in his arms, hands, fingers, legs, and neck, accompanied by significant fatigue. He does not endorse any changes in weakness over the past 3-4 months and does not report difficulty with ambulation or getting out of chairs. 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 He notes that his dyspnea improves with rest but is still present to a lesser degree. He also reports difficulty with overhead activities, such as washing his hair, which require extra effort. He has lost 20 pounds over the past 8-10 weeks, dropping from 174 to 154 pounds, due to difficulty swallowing and eating. He has been consuming mostly soft foods and liquids, avoiding bread, and requires water to assist with swallowing. He does not report difficulty chewing or swallowing liquids unless he drinks quickly. He does not endorse any speech difficulties. He has a history of peripheral neuropathy in his feet, described as a mild electrical shock sensation along the edge of his foot, which has been present for quite a while and has not changed recently. He does not report any new numbness or tingling. He also has a history of hearing problems, which he attributes to playing drums in the past. He does not endorse headaches and reports muscle fatigue but no pain. He has been taking pyridostigmine (Mestinon) 60 mg half tablet three times a day, which has improved his swallowing and reduced his diplopia. He notes that if he misses a dose, his swallowing becomes difficult again. He reports some loose stools with the medication but no other side effects. He is concerned about the impact of pyridostigmine on his stage 3 kidney disease and has a creatinine test scheduled with his family doctor, Dr. Samson Ragsdale, at the [facility]. He also reports chronic constipation and excessive gas, with belching occurring within 15 minutes of eating and passing gas within a couple of hours. He has not had a decent bowel movement in two years and alternates between severe constipation and diarrhea. He has undergone colonoscopies and a capsule endoscopy, which showed no blockages. He has a history of gout and has taken prednisone for gout attacks, with the last dose taken 3-4 months ago. He is concerned about the potential need for long-term prednisone use for myasthenia gravis and its impact on his blood sugar. MG - Activities of Daily Living (MG-ADL) 1. Talkin=Normal 2. Chewin=Normal 3. Swallowin=Frequent choking necessitating changes in diet 4. Breathin=Shortness of breath at rest 5. Impairment of ability to brush teeth or comb hair: 1=Extra effort, but no rest periods needed 6. Impairment of ability to arise from a chair: 0=None 7. Double vision: 2=Daily, but not constant 8. Eyelid droop: 0=None MG-ADL Total Score: 8 Prior Studies: Labs: normal: MMA, SPEP, B12, abnormal: HbA1c 6.3, creatinine 1.86, WSR 35, CRP 3.2, AchR B/B/M elevated MRI brain 01/31/2025: No evidence of acute intracranial abnormality. Scattered patchy and confluent T2 FLAIR hyperintense lesions are present in the bilateral supratentorial brain compatible with sequelae of chronic small vessel disease. 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 09/2015 4.15 cm Acute gastritis without mention of hemorrhage 04/26/2017 EGD by [employer] Advance care planning 03/24/2022 Adi (more content not included)... [facility] 03-06-2025 Procedure note [facility] 03-04-2025 Telephone encounter Note Despite seeing that patient was already notified of this (? Re: kidneys being affected by medication), patient came to Neuro office. Patient asking this same question as well as will this medication help improve patient's swallowing ability? Patient is completing Cookie swallow tomorrow and will stop by office again tomorrow. Patient did ask if it would help with his double vision also but reports swallowing is more important to him especially d/t weight loss. Yu Ruvalcaba LPN [facility] 03-04-2025 Miscellaneous Notes Despite seeing that patient was already notified of this (? Re: kidneys being affected by medication), patient came to Neuro office. Patient asking this same question as well as will this medication help improve patient's swallowing ability? Patient is completing Cookie swallow tomorrow and will stop by office again tomorrow. Patient did ask if it would help with his double vision also but reports swallowing is more important to him especially d/t weight loss. Yu Ruvalcaba LPN Pt called and is notified of providers message and instructions. Pt voices understanding. Jose Noel RN Please let him know that this medication is safe for his renal function/kidneys to be taking per specialist recommendations Samson Ragsdale DO Patient stopped at front end [facility] today wanting to talk with Dr. Ragsdale's nurse re: this. Patient isn't wanting to start this medication without Dr. Ragsdale's opinion. Per patient, the pharmacist stated that this medicine is hard on the kidneys and he has Stage 3 CKD. Please advise patient on if this medication is the best for him for his myasthenia gravis or if there is something else that Dr. Ragsdale would recommend that might be less harsh on his kidneys. Did request electronic PA and route to neuro pool. Pt came in to ask about if the Mestinon medication would be too hard on his kidney's ? I let him know that it was [facility] that prescribed this prescription. Please advise documented in this encounter [facility] 03-04-2025 Telephone encounter Note Pt called and is notified of providers message and instructions. Pt voices understanding. Jose Noel RN [facility] 03-04-2025 Telephone encounter Note Please let him know that this medication is safe for his renal function/kidneys to be taking per specialist recommendations Samson L Ragsdale, DO [facility] 03-01-2025 Telephone encounter Note Patient stopped at front end [facility] today wanting to talk with Dr. Ragsdale's nurse re: this. Patient isn't wanting to start this medication without Dr. Ragsdale's opinion. Per patient, the pharmacist stated that this medicine is hard on the kidneys and he has Stage 3 CKD. Please advise patient on if this medication is the best for him for his myasthenia gravis or if there is something else that Dr. Ragsdale would recommend that might be less harsh on his kidneys. [facility] 02-28-2025 Telephone encounter Note Patient in and got scheduled at [facility] today-he will have his son drive him. Yu Ruvalcaba LPN [facility] 02-28-2025 Miscellaneous Notes Patient in and got scheduled at [facility] today-he will have his son drive him. Yu Ruvalcaba LPN Should be able to see other neuromuscular specialists not at [facility] with this referral. Dr. Gomez is in [place], Dr. James is at [facility] and [place]. I believe the medication was sent to [facility] in [place]. Jud Maguire PA-C Pt given message below from Maylin ALCALA. 1) Pt agreeable to see a neuromuscular specialist but will only travel as far as [place]. He states he will not go to [facility]. Referral states [facility], which may be at [facility]. Asking if Jud knows where this center is? Sash Repairer had some difficulty attempting to schedule this. Pt states if it is at [facility] [place], then he will not go. 2) Pt agreeable to trying the mestinon medication 3 times daily. Asking this to be sent to [facility]. Pt would like a call once this has been sent to pharmacy, cell only: [phone]. Lorraine Saravia RN Message left for patient to return call to review results. Yu Ruvalcaba LPN Patient's labs are concerning for myasthenia gravis (this is the condition we discussed during his appointment). He will need to see a specialist for this in the neuromuscular department. A referral was placed. We can start a medication to help with your symptoms while you wait to see the specialist. It is called mestinon. You can start with 30mg three times a day, take with food. Common side effects are diarrhea, salivation, tearing. Let me know how you do and we can adjust as needed. Jud Maguire PA-C documented in this encounter [facility] 02-28-2025 Telephone encounter Note Did request electronic PA and route to neuro pool. [facility] 02-28-2025 Telephone encounter Note Pt came in to ask about if the Mestinon medication would be too hard on his kidney's ? I let him know that it was [facility] that prescribed this prescription. Please advise [facility] 02-27-2025 Telephone encounter Note Should be able to see other neuromuscular specialists not at [facility] with this referral. Dr. Gomez is in [place], Dr. James is at [facility] and [place]. I believe the medication was sent to [email or web address] in [place]. Jud Maguire PA-C [facility] 02-27-2025 Telephone encounter Note Pt given message below from Maylin ALCALA. 1) Pt agreeable to see a neuromuscular specialist but will only travel as far as [place]. He states he will not go to [facility]. Referral states [facility], which may be at [facility]. Asking if Jud knows where this center is? S[employer] Repairer had some difficulty attempting to schedule this. Pt states if it is at [facility], then he will not go. 2) Pt agreeable to trying the mestinon medication 3 times daily. Asking this to be sent to [facility]. Pt would like a call once this has been sent to pharmacy, cell only: [phone]. Lorraine Saravia RN [facility] 02-27-2025 Telephone encounter Note Message left for patient to return call to review results. Yu Ruvalcaba LPN T [facility] 02-27-2025 Telephone encounter Note Patient's labs are concerning for myasthenia gravis (this is the condition we discussed during his appointment). He will need to see a specialist for this in the neuromuscular department. A referral was placed. We can start a medication to help with your symptoms while you wait to see the specialist. It is called mestinon. You can start with 30mg three times a day, take with food. Common side effects are diarrhea, salivation, tearing. Let me know how you do and we can adjust as needed. Jud Maguire PA-C [facility] 02-25-2025 Telephone encounter Note Pt. informed will car pick up driver on the 2nd floor. [facility] 02-25-2025 Miscellaneous Notes Pt. informed will car pick up driver on the 2nd floor. Letter made. Just needs printed from [employer]. Pending in Communications or Letters tap. Thank you, Desirae Irving APRN.KEELER POLYGRAPH OPERATOR Patient came into today requesting a letter for a new Handicap sticker. Please advise. documented in this encounter [facility] 02-21-2025 Telephone encounter Note Letter made. Just needs printed from [employer]. Pending in Communications or Letters tap. Thank you, Desirae Irving APRN.KEELER POLYGRAPH OPERATOR [facility] Work Phone: 02-20-2025 Instructions Jud Maguire PA-C - 02/20/2025 3:26 PM EDT Continue with seeing your eye doctor and consult to vascular surgery Laboratory studies Follow up as needed documented in this encounter [facility] 02-20-2025 Note HNO ID: [id number] Author: YU RUVALCABA LPN Service: ? Author Type: LICENSED NURSE Type: Progress Notes Filed: 02/20/2025 16:36 Note Text: [facility] 02-20-2025 History of Present illness Narrative Images from the original note were not included. [facility] Name: Alejo Gage Age: [age] year old Gender: male Primary Care Provider: Samson Ragsdale DO Consult requested for MRI follow up by Lala Godinez. Recommendations will be communicated via shared medical record or [place] mail. Chief Complaint:New Patient (Cerebral microvascular disease), Eye Problem (Double vision from left periferal), Fatigue, Ptosis OU, Throat Problem, muscle weakness all extremities, and Weight Problem (Loss of approx 20 lbs since swallowing issue started) 02/20/2025 - General Neurology, Jud Maguire PA-C ASSESSMENT ASSESSMENT/PLAN: 1. Weakness - ICD9: 780.79, ICD10: R53.1 (primary diagnosis) 2. Cerebral microvascular disease - ICD9: 437.8, ICD10: I67.89 3. Myasthenia gravis (HCC) - ICD9: 358.00, ICD10: G70.0 4. Abnormal weight loss - ICD9: 783.21, ICD10: R63.4 5. Double vision - ICD9: 368.2, ICD10: H53.2 6. Dysphagia, unspecified type - ICD9: 787.20, ICD10: R13.10 Patient with 6 weeks of generalized weakness, difficulty swallowing, double vision and weight loss due to lack of appetite and difficulty swallowing. Follow with primary care and there was concerns for possible central process MRI of the brain negative. Was noted to have left eyelid droop while at his primary care appointment earlier this month. No falls, no signs or symptoms of cord compression. Patient does have left eyelid droop with prolonged upward gaze, unable to fully move the right eye medially. Concern at this time for myasthenia gravis. Will order laboratory studies for this and sent to neuromuscular pending results. Discussed EMG testing at this time and patient deferring. Does have signs of vibration loss in the lower extremities as well and due to overall weakness discussed obtaining basic blood work and patient is amenable. Discussed that should labs be negative we will order EMG and patient agrees. Discussed red flag signs symptoms that warrant going to the emergency department, patient agrees and understands. Jud Maguire PA-C Encounter Diagnosis ICD-10-CM 1. Weakness R53.1 VITAMIN B12 PROT ELECT SERUM WITH ELIZABETH AND INTERP METHYLMALONIC ACID C-REACTIVE PROTEIN SEDIMENTATION RATE, WESTERGREN COMPREHENSIVE METABOLIC PANEL COMPLETE BLOOD COUNT AND DIFFERENTIAL 2. Cerebral microvascular disease I67.89 3. Myasthenia gravis (HCC) G70.00 ACETYLCHOLINE REC BINDING AB ACETYLCHOLINE RECEPTOR MODULATING ANTIBODY ACETYLCHOLINE REC BLOCKING AB 4. Abnormal weight loss R63.4 5. Double vision H53.2 6. Dysphagia, unspecified type R13.10 Return if symptoms worsen or fail to improve. Chart, labs,and relevant images reviewed. HPI: Saw PCP on 01/30/25 for vision changes and swallowing difficulty. MRI oredered to look for stroke. Negative, showing chronic changes. Hx of R carotid endarectomy. Patient presents for evaluation of multiple concerns. Notes that over the last 6 weeks he has had progressive weakness, weight loss and difficulty swallowing. Notes that he first started noticing the difficulty swallowing when eating a cupcake 6 weeks ago, states that it seemed to get stuck in the middle of his esophagus any eventually was able to cough it out and drink some water. Since that time he has had intermittent issues with swallowing, always has have some sort of liquid with him to help him swallow. Is scheduled for a swallow study in the near future. Does not feel he is aspirated anything. Notes he has lost significant amount of weight in the last 6 weeks, estimates about 20 pounds. Notes his appetite is also significantly decreased as well. Over the last 6 weeks he is also been experiencing generalized weakness to his arms and legs. Was found to have a left eyelid drooping at his primary care appointment earlier this month and feels that this is new as well. Describes double vision, when he looks to the left notes that he sees 2 of everything but when he looks to the right is normal. States this is only occurring towards the end of the day and his vision is normal in the morning. States overall he feels much better when he wakes up in the morning but progressively through the day he feels worse. Denies any speech changes, no falls. Overall feels as if he is in a fog. Has never had anything like this happen before. No bowel or bladder incontinence, saddle anesthesia. Has been experiencing constipation issues over the last 6 months. No other concerns today. Weakness: yes Falls: no Speech: no Swallowing: yes Blurry vision / double vision: yes lateral to the left Shortness of breath: no Other issues with physical functioning: no Review of Systems ACTIVE PROBLEM LIST Generalized Osteoarthrosis, Unspecified Site Diaphragmatic Hernia Pure Hypercholesterolemia History of Prostate Cancer Hypertensive Kidney Disease With Chronic Kidney Disease Stage IV (Formerly [facility]) Other Tenosynovitis of Hand and Wrist Carpal Tunnel Syndrome Essential Hypertension, Benign Atherosclerosis of Common Carotid Artery L-S Radiculopathy Thoracic Or Lumbosacral Neuritis Or Radiculitis, Unspecified Stented Coronary Artery Absolute Anemia Ckd (Chronic Kidney Disease) Stage 4, Gfr 15-29 Ml/Min (Formerly [facility]) 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 Low Blood Potassium Controlled Type 2 Diabetes Mellitus With Stage 4 Chronic Kidney Disease, With Long-Term Current Use of Insulin (Hcc) Hypoalbuminemia Generalized Abdominal Pain Vasculitis of Skin Psoriasis Dyslipidemia Iron Deficiency Anemia Due to Chronic Blood Loss History of Prostatectomy Carotid Atherosclerosis, Bilateral Actinic Keratosis Abdominal Aortic Aneurysm (Aaa) Without Rupture Controlled Type 2 Diabetes Mellitus Without Complication, Without Long-Term Current Use of Insulin (Hcc) Stage 3b Chronic Kidney Disease (Hcc) Arthritis, Multiple Joint Involvement Neck Pain of Over 3 Months Duration Hypercalcemia Gout of Multiple Sites Stenosis of Left Carotid Artery Hypertensive Heart Disease Without Heart Failure Malignant Neoplasm of Prostate (Hcc) Peripheral Neuropathy Vitamin D Deficiency Type 2 Diabetes Mellitus With Stage 4 Chronic Kidney Disease, With Long-Term Current Use of Insulin (Hcc) Chronic Midline Low Back Pain Without Sciatica Bilateral Chronic Knee Pain Chest Pain On Breathing Sob (Shortness of Breath) Dementia in Other Diseases Classified Elsewhere, Unspecified Severity, 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) Impaired Hearing Tinnitus, Bilateral Coronary Artery Disease Due to Lipid Rich Plaque Chronic Diarrhea PAST MEDICAL HISTORY Diagnosis Date Abdominal aneurysm [...] (without mention of hemorrhage) 04/26/2017 colonoscopy by Alejabujaison Esophagitis Generalized osteoarthrosis, unspecified site Internal hemorrhoid 04/26/2017 colonoscopy by Cebul Iron deficiency anemia Malignant neoplasm of prostate (HCC) Other and unspecified hyperlipidemia Unspecified cardiovascular disease 1994 CABG Unspecified constipation 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 fluticasone-salmeterol (ADVAIR DISKUS) 100-50 mcg/dose inhaler Inhale 1 puff as instructed two times a day. blood sugar diagnostic (TRUE METRIX GLUCOSE TEST [...] tablet by mouth two times a day. (Patient taking differently: Take 25 mg by mouth two times a day. Taking once daily as reported by patient - not taking as ordered) isosorbide mononitrate ER (IMDUR) 30 mg 24 [...] g to affected area four times daily. Blood-Glucose Meter (FREESTYLE LITE METER) monitoring kit 1 Each as directed. CHOLECALCIFEROL, VITAMIN D3, (VITAMIN D3 ORAL) Take 600 mg by mouth once daily. CALTRATE-600 PLUS VITAMIN D3 600 MG-200 UNIT ORAL TAB TAKE TWO TABLETS DAILY. triamcinolone acetonide (NASACORT ALLERGY) 55 mcg nasal inhaler Use 2 sprays in each nostril once daily. (Patient not taking: Reported on 02/20/2025) zinc sulfate (ZINC-15 ORAL) Take 1 tablet by mouth once daily. (Patient not taking: Reported on 02/20/2025) Insulin Huntley, Disposable, (BD ULTRA-FINE BENNY PEN NEEDLE) 32 gauge x 5/32 Use once daily with Lantus as directed hydrocortisone 2.5 % cream Apply 1 application to affected area twice daily. Location: face (Patient not taking: Reported on 02/20/2025) Lancets lancets Use as instructed potassium chloride (KLOR-CON 10) 10 mEq tablet Take 1 tablet by mouth once daily. (Patient not taking: Reported on 02/20/2025) coenzyme Q10 (COENZYME Q-10) 100 mg cap capsule Take 1 capsule by mouth. (Patient not taking: Reported on 02/20/2025) ALLERGIES Allergen Reactions Atorvastatin Unknown Crestor [Rosuvastat* Other: See Comments Muscle pain Glucosamine Unknown Nerve pain Motrin [Ibuprofen] Rash Pravastatin Other: See Comments muscle aches Myfcchx-Eqz-Des Red* Other: See Comments myalgia FAMILY HISTORY Problem Relation Age of Onset Hypertension Father COPD Father Heart Mother PAST SURGICAL HISTORY Procedure Laterality Date BYP OTH/THN VEIN COMMON-IPSILATERAL CAROTID Carotid Endarectomy right COLONOSCOPY 05/23/2024 COLONOSCOPY FLX DX W/COLLJ SPEC WHEN PFRMD 07/10/2007 CORONARY ARTERY BYP W/VEIN & ARTERY GRAFT 1 VEIN 1994 CABG, single graftLupe Dr. CORONARY ENDARTERCOMY OPEN ANY METHOD 07/03/2013 Angioplasty Xience stent to L circumflex EGD 04/26/2017 [facility] Dr. Nolan Triana EGD 05/23/2024 EGD TRANSORAL BIOPSY SINGLE/MULTIPLE 07/10/2007 PAST SURGICAL HISTORY OF 01/26/2008 stent placement ramus and prox ramus PAST SURGICAL HISTORY OF heart stents PROSTATECTOMY PERINEAL RADICAL 2000 Prostatectomy, radical- Dr. 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 Yousif Triana; next screening colonoscopy in 10yrs, [facility] UNLISTED DIAGNOSTIC GASTROENTEROLOGY PROCEDURE 06/06/2018 SOCIAL HISTORY No social history on file. Tobacco Use: Medium Risk (05/11/2024) Patient History Smoking Tobacco Use: Former Smokeless Tobacco Use: Never Passive Exposure: Not on file PHYSICAL EXAM 02/20/25 1506 BP: 121/67 Pulse: 70 Neurological Exam Cognitive and Language: Alert and answered questions appropriately. Language was fluent. Followed simple and complex commands. Cranial Nerves: Visual alvarenga were full tested binocularly to finger counting in all 4 quadrants with no visual extinction. Pupils were equal and both reactive to light. No nystagmus, however right eye does not fully move medially on extraocular movements. Facial sensation was normal to light touch in V1 to V3. Facial strength was symmetric, however with prolonged upward gaze his left eyelid did seem to droop. Poor hearing. Palatal raise was symmetric. Shoulder shrug was symmetric. Tongue protrusion was symmetric with no fasciculations. Power: Decreased rigging up worker strength bilaterally Right Left Shoulder Abduction: 5 5 Elbow Extension 4 5 Elbow Flexion 5 5 Wrist Extension 5 5 Finger Extension 5 5 Finger Abduction 5 5 Right Left Hip Flexion 5 5 Knee Extension 5 5 Knee Flexion 5 5 Dorsiflexion 5 5 Plantar Flexion 4 5 Rest tremor: absent Tone: Normal in all four limbs Reflexes: Right Left Brachioradialis 2 2 Biceps 2 2 Triceps 2 2 Patella 2 2 Ankle 2 2 Sensory: Absent vibration at the right great toe, decreased at the left knee. Intact to temperature throughout upper and lower extremities. Coordination: Normal finger to nose and heel to myers testing bilaterally. Negative romberg. Slowed gait Labs: Lab Results Component Value Date WBC 11.69 (H) 09/17/2024 HCT 42.0 09/17/2024 MCV 89.4 09/17/2024 PLT 308 09/17/2024 Lab Results Component Value Date HBA1C 6.3 09/17/2024 HBA1C 6.0 03/19/2024 HBA1C 6.1 09/23/2023 HBA1C 6.1 09/09/2021 HBA1C 6.0 06/08/2021 HBA1C 6.3 03/02/2021 Cholesterol, Total Date Value Ref Range Status 09/17/2024 201 (H) <200 mg/dL Final Comment: <200 mg/dL, Desirable 200-239 mg/dL, Borderline high >239 mg/dL, High HDL Cholesterol Date Value Ref Range Status 09/17/2024 39 (L) >39 mg/dL Final Comment: 40-59 mg/dL, Acceptable >59 mg/dL, High: Negative risk factor for coronary heart disease <40 mg/dL, Low: Positive risk factor for coronary heart disease LDL Cholesterol, Calculated Date Value Ref Range Status 09/17/2024 132 (H) <100 mg/dL Final Comment: <100 mg/dL, Optimal 100-129 mg/dL, Near optimal/above optimal 130-159 mg/dL, Borderline high 160-189 mg/dL, High >189 mg/dL, Very high Secondary prevention optimal LDL Cholesterol levels are recommended to be < 70 mg/dL Triglyceride Date Value Ref Range Status 09/17/2024 149 <150 mg/dL Final Comment: <150 mg/dL, Normal 150-199 mg/dL, Borderline high 200-499 mg/dL, High >499 mg/dL, Very high Radiology: MRI Head/Brain - Last 2 Impressions MRI BRAIN WO IVCON Exam End: 01/31/2025 12:38 PM (Final result) Impression: IMPRESSION: No evidence of acute intracranial abnormality. Scattered patchy and confluent T2 FLAIR hyperintense lesions are present ... This note was dictated using [employer] speech recognition software and may contain some errors that were a result of the program not accurately transcribing what was dictated, despite efforts to make corrections. Note that unless urgent, test and MRI results will be discussed at next follow-up visit. PROMIS (Patient-Reported Outcomes Measurement Information System) is a set of person-centered measures that evaluates and monitors physical, social, and emotional health. It can be used with the general population and with individuals living with chronic conditions. PROMIS 10: PHYSICAL AND MENTAL HEALTH: 09/26/2023 PHQ-9 PHQ-2 Score 0 I spent a total of 60 minutes on the date of the service which included preparing to see the patient, [id number] patient care, completing clinical documentation, obtaining and/or reviewing separately obtained history, performing a medically appropriate examination, counseling and educating the patient/family/caregiver, and ordering medications, tests, or procedures. This document has been created with the use of voice recognition technology. It may contain inaccuracies: (e.g. misspellings, inaccurate syntax or word sense) that have escaped review. documented in this encounter [facility] 02-20-2025 Note HNO ID: [id number] Author: JUD MAGUIRE PA-C Service: ? Author Type: Physician Editor Dictionary Type: Progress Notes Filed: 02/20/2025 16:36 Note Text: [facility] Name: Aljeo Gage Age: [age] year old Gender: male Primary Care Provider: Samson Ragsdale DO Consult requested for MRI follow up by Lala Godinez. Recommendations will be communicated via shared medical record or US mail. Chief Complaint:New Patient (Cerebral microvascular disease), Eye Problem (Double vision from left periferal), Fatigue, Ptosis OU, Throat Problem, muscle weakness all extremities, and Weight Problem (Loss of approx 20 lbs since swallowing issue started) 02/20/2025 - General Neurology, Jud Maguire PA-C ASSESSMENT ASSESSMENT/PLAN: 1. Weakness - ICD9: 780.79, ICD10: R53.1 (primary diagnosis) 2. Cerebral microvascular disease - ICD9: 437.8, ICD10: I67.89 3. Myasthenia gravis (HCC) - ICD9: 358.00, ICD10: G70.0 4. Abnormal weight loss - ICD9: 783.21, ICD10: R63.4 5. Double vision - ICD9: 368.2, ICD10: H53.2 6. Dysphagia, unspecified type - ICD9: 787.20, ICD10: R13.10 Patient with 6 weeks of generalized weakness, difficulty swallowing, double vision and weight loss due to lack of appetite and difficulty swallowing. Follow with primary care and there was concerns for possible central process MRI of the brain negative. Was noted to have left eyelid droop while at his primary care appointment earlier this month. No falls, no signs or symptoms of cord compression. Patient does have left eyelid droop with prolonged upward gaze, unable to fully move the right eye medially. Concern at this time for myasthenia gravis. Will order laboratory studies for this and sent to neuromuscular pending results. Discussed EMG testing at this time and patient deferring. Does have signs of vibration loss in the lower extremities as well and due to overall weakness discussed obtaining basic blood work and patient is amenable. Discussed that should labs be negative we will order EMG and patient agrees. Discussed red flag signs symptoms that warrant going to the emergency department, patient agrees and understands. Jud Maguire PA-C Encounter Diagnosis ICD-10-CM 1. Weakness R53.1 VITAMIN B12 PROT ELECT SERUM WITH ELIZABETH AND INTERP METHYLMALONIC ACID C-REACTIVE PROTEIN SEDIMENTATION RATE, WESTERGREN COMPREHENSIVE METABOLIC PANEL COMPLETE BLOOD COUNT AND DIFFERENTIAL 2. Cerebral microvascular disease I67.89 3. Myasthenia gravis (HCC) G70.00 ACETYLCHOLINE REC BINDING AB ACETYLCHOLINE RECEPTOR MODULATING ANTIBODY ACETYLCHOLINE REC BLOCKING AB 4. Abnormal weight loss R63.4 5. Double vision H53.2 6. Dysphagia, unspecified type R13.10 Return if symptoms worsen or fail to improve. Chart, labs,and relevant images reviewed. HPI: Saw PCP on 01/30/25 for vision changes and swallowing difficulty. MRI oredered to look for stroke. Negative, showing chronic changes. Hx of R carotid endarectomy. Patient presents for evaluation of multiple concerns. Notes that over the last 6 weeks he has had progressive weakness, weight loss and difficulty swallowing. Notes that he first started noticing the difficulty swallowing when eating a cupcake 6 weeks ago, states that it seemed to get stuck in the middle of his esophagus any eventually was able to cough it out and drink some water. Since that time he has had intermittent issues with swallowing, always has have some sort of liquid with him to help him swallow. Is scheduled for a swallow study in the near future. Does not feel he is aspirated anything. Notes he has lost significant amount of weight in the last 6 weeks, estimates about 20 pounds. Notes his appetite is also significantly decreased as well. Over the last 6 weeks he is also been experiencing generalized weakness to his arms and legs. Was found to have a left eyelid drooping at his primary care appointment earlier this month and feels that this is new as well. Describes double vision, when he looks to the left notes that he sees 2 of everything but when he looks to the right is normal. States this is only occurring towards the end of the day and his vision is normal in the morning. States overall he feels much better when he wakes up in the morning but progressively through the day he feels worse. Denies any speech changes, no falls. Overall feels as if he is in a fog. Has never had anything like this happen before. No bowel or bladder incontinence, saddle anesthesia. Has been experiencing constipation issues over the last 6 months. No other concerns today. Weakness: yes Falls: no Speech: no Swallowing: yes Blurry vision / double vision: yes lateral to the left Shortness of breath: no Other issues with physical functioning: no Review of Systems ACTIVE PROBLEM LIST Generalized Osteoarthrosis, Unspecified Site Diaphragmatic Hernia Pure Hypercholester (more content not included)... [facility] 02-20-2025 Telephone encounter Note Patient came into today requesting a letter for a new Handicap sticker. Please advise. [facility] 02-05-2025 Telephone encounter Note Call to pt and notified him of results and recommendations below from Provider. Pt is currently scheduled with Jud Maguire on 02/20/25 and put on cancellation list. Pt asking this MA to notify Neuro that if sooner appt becomes available he is contacted by phone and not by mychart. I will put a note on his appt with Neuro to contact only by phone for sooner appt and route this message to Neuro and close. Leela Aguilar MA [facility] 02-05-2025 Miscellaneous Notes Call to pt and notified him of results and recommendations below from Provider. Pt is currently scheduled with Jud Maguire on 02/20/25 and put on cancellation list. Pt asking this MA to notify Neuro that if sooner appt becomes available he is contacted by phone and not by mychart. I will put a note on his appt with Neuro to contact only by phone for sooner appt and route this message to Neuro and close. Leela Aguilar MA Message left for pt to call back for results. Marina Connor MA Please let patient know his MRI does not show a stroke but it does show microvascular disease. I recommend follow up with neurology. documented in this encounter [facility] 01-31-2025 Telephone encounter Note Message left for pt to call back for results. Marina Connor MA [facility] 01-31-2025 Telephone encounter Note Please let patient know his MRI does not show a stroke but it does show microvascular disease. I recommend follow up with neurology. [facility] 01-31-2025 History of Present illness Narrative Radiology Service Progress Note PATIENT NAME: Alejo Gage DATE OF SERVICE: January 31, 2025 TIME: 12:22 PM PATIENT IDENTITY VERIFICATION COMPLETED USING TWO [...] PATIENT PRESENTS WITH AN IMPLANTABLE OR ATTACHED AREA COUNSELOR: No RADIOLOGY DEPARTMENT: MR; Exam(s) Completed: Head: Routine Brain. Aromatherapy Administered: No PERIPHERAL IV DATA: Not applicable SIGNED BY: Eugenia Cardona RT(R) January 31, 2025 12:22 PM documented in this encounter [facility] 01-31-2025 Note HNO ID: [id number] Author: EUGENIA CARDONA RT(R) Service: ? Author Type: Technologist Type: Progress Notes Filed: 01/31/2025 12:23 Note Text: Radiology Service Progress Note PATIENT NAME: Alejo Gage DATE OF SERVICE: January 31, 2025 TIME: 12:22 PM PATIENT IDENTITY VERIFICATION COMPLETED USING TWO [...] PATIENT PRESENTS WITH AN IMPLANTABLE OR ATTACHED AREA COUNSELOR: No RADIOLOGY DEPARTMENT: MR; Exam(s) Completed: Head: Routine Brain. Aromatherapy Administered: No PERIPHERAL IV DATA: Not applicable SIGNED BY: RT Jose(R) January 31, 2025 12:[address] [facility] 01-30-2025 Instructions Lala Godinez APRN.KEELER POLYGRAPH OPERATOR - 01/30/2025 1:[address] Arzate Vascular Surgeon- documented in this encounter [facility] 01-30-2025 Note HNO ID: [id number] Author: LALA GODINEZ APRN.KEELER POLYGRAPH OPERATOR Service: ? Author Type: Nurse Practitioner Type: Progress Notes Filed: 01/30/2025 13:44 Note Text: Chief Complaint Patient presents with: Follow Up HPI Alejo Gage is a 84 year old male who presents here today for Above Complaints. Patient presents for follow up. Patient reports he continues to have swallowing difficulty and vision abnormalities. Swallowing has slightly improved but vision has worsened slightly. Has Cookie swallow ordered and scheduled at [facility]. Reports carotid US shows 50-70% blockage on the left and 50% on right. Hx of right carotid endarterectomy with Dr. Triana. Appt with eye doctor scheduled in March with Dr. Victor. Past medical history, appointments, medications, allergies reviewed. [...] Xience stent to L circumflex EGD 04/26/2017 [facility] Dr. Nolan Triana EGD 05/23/2024 EGD TRANSORAL BIOPSY SINGLE/MULTIPLE 07/10/2007 PAST SURGICAL HISTORY OF 01/26/2008 stent placement ramus and prox ramus PAST SURGICAL HISTORY OF heart stents PROSTATECTOMY PERINEAL RADICAL 1999 Prostatectomy, radical- Dr. 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 Yousif Triana; next screening colonoscopy in 10yrs, [facility] UNLISTED DIAGNOSTIC GASTROENTEROLOGY PROCEDURE 06/06/2018 Family History FAMILY HISTORY Problem Relation Age of Onset Hypertension Father COPD Father Heart Mother Patient Allergies ALLERGIES Allergen Reactions Atorvastatin Unknown Crestor [Rosuvastat* Other: See Comments Muscle pain Glucosamine Unknown Nerve pain Motrin [Ibuprofen] Rash Pravastatin Other: See Comments muscle aches Hcemcby-Xsi-Tek Red* Other: See Comments myalgia Current Medications Current Outpatient Medications on File Prior to Visit Medication Sig fluticasone-salmeterol (ADVAIR DISKUS) 100-50 mcg/dose inhaler Inhale 1 puff as instructed two times a day. triamcinolone acetonide (NASACORT ALLERGY) 55 mcg nasal [...] 10 Units subcutaneously daily at bedtime. Insulin Huntley, Disposable, (BD ULTRA-FINE BENNY PEN NEEDLE) 32 [...] twice daily. Blood-Glucose Meter (FREESTYLE LITE METER) m (more content not included)... [facility] 01-30-2025 History of Present illness Narrative Chief Complaint Patient presents with: Follow Up HPI Alejo Gage is a 84 year old male who presents here today for Above Complaints. Patient presents for follow up. Patient reports he continues to have swallowing difficulty and vision abnormalities. Swallowing has slightly improved but vision has worsened slightly. Has Cookie swallow ordered and scheduled at [facility]. Reports carotid US shows 50-70% blockage on the left and 50% on right. Hx of right carotid endarterectomy with Dr. Triana. Appt with eye doctor scheduled in March with Dr. Victor. Past medical history, appointments, medications, allergies reviewed. [...] Xience stent to L circumflex EGD 04/26/2017 [facility] Dr. Nolan Triana EGD 05/23/2024 EGD TRANSORAL BIOPSY SINGLE/MULTIPLE 07/10/2007 PAST SURGICAL HISTORY OF 01/26/2008 stent placement ramus and prox ramus PAST SURGICAL HISTORY OF heart stents PROSTATECTOMY PERINEAL RADICAL 2000 Prostatectomy, radical- Dr. 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 Yousif [place]; next screening colonoscopy in 10yrs, [facility] UNLISTED DIAGNOSTIC GASTROENTEROLOGY PROCEDURE 06/06/2018 Family History FAMILY HISTORY Problem Relation Age of Onset Hypertension Father COPD Father Heart Mother Patient Allergies ALLERGIES Allergen Reactions Atorvastatin Unknown Crestor [Rosuvastat* Other: See Comments Muscle pain Glucosamine Unknown Nerve pain Motrin [Ibuprofen] Rash Pravastatin Other: See Comments muscle aches Alceqjm-Qmt-Lmk Red* Other: See Comments myalgia Current Medications Current Outpatient Medications on File Prior to Visit Medication Sig fluticasone-salmeterol (ADVAIR DISKUS) 100-50 mcg/dose inhaler Inhale 1 puff as instructed two times a day. triamcinolone acetonide (NASACORT ALLERGY) 55 mcg nasal [...] 10 Units subcutaneously daily at bedtime. Insulin Huntley, Disposable, (BD ULTRA-FINE BENNY PEN NEEDLE) 32 gauge x /32 Use once daily with Lantus as directed [...] REVIEW OF SYSTEMS SEE HPI EXAM: BP 144/67 Pulse 65 Wt 73 kg (160 lb 15 oz) SpO2 97% BMI 24.47 kg/m General Appearance: Well appearing, alert, in no acute distress, well-hydrated, well nourished. Skin: Skin color, texture, turgor normal, no suspicious rashes or lesions. Neurologic: Gait normal. Reflexes normal and symmetric. Sensation grossly intact., Left eyelid droop noted. [facility] Maintenance List Medicare Annual Wellness Visit Never done RSV Vaccine(1 - 1-dose 75+ series) Never done Urine Albumin:Creatinine Ratio due on 09/09/2022 Shingrix Vaccine(3 of 3) due on 03/11/2023 Dilated Retinal Exam due on 08/09/2023 Diabetic Foot Exam due on 03/23/2024 Covid-19 Vaccine(3 - 2023- season) due on 09/26/2025 HbA1C due on 03/17/2025 Influenza Vaccine(1) due on 04/01/2025 LDL Cholesterol due on 09/17/2025 DTaP,Tdap,Td Vaccine(3 - Td or Tdap) due on 05/02/2033 Pneumococcal Vaccine: 50+ Completed Colorectal Cancer Screening Discontinued Advance Directive Discussion Discontinued ASSESSMENT/PLAN: 1. Other symptoms and signs involving the nervous system - ICD9: 781.99, ICD10: R29.818 (primary diagnosis) - MRI BRAIN WO IVCON 2. Bilateral carotid artery stenosis - ICD9: 433.10, 433.30, ICD10: I65.23 - CONSULT TO VASCULAR SURGERY - Will obtain carotid US from [facility] for patient file. Lala Godinez APRN.KEELER POLYGRAPH OPERATOR documented in this encounter [facility] 01-29-2025 Telephone encounter Note Pt was scheduled for an appt with Cony Cheng on 01/31. Pt already seen for below symptoms. Reviewed Lala Godinez's office note of 01/17 and pt has already undergone testing. Called and spoke with pt to see what has changed. Pt states his trouble swallowing has gotten a little better and his eyesight is about the same. He states blurred vision at first but then states it is more like it is distorted off and on. Pt states he came into the office to ask Dr. Ragsdale if she wanted to order an MRI to confirm if he had a light stroke or not. Booked pt back on Lala Godinez's office for tomorrow at 120 pm for follow up and to discuss further testing if needed. [facility] 01-29-2025 Miscellaneous Notes Pt was scheduled for an appt with Cony Cheng on 01/31. Pt already seen for below symptoms. Reviewed Lala Godinez's office note of 01/17 and pt has already undergone testing. Called and spoke with pt to see what has changed. Pt states his trouble swallowing has gotten a little better and his eyesight is about the same. He states blurred vision at first but then states it is more like it is distorted off and on. Pt states he came into the office to ask Dr. Ragsdale if she wanted to order an MRI to confirm if he had a light stroke or not. Booked pt back on Lala Godinez's office for tomorrow at 120 pm for follow up and to discuss further testing if needed. Nurse triage appt scheduled. Pt is scheduled with Maylin Cheng on 01/31/25. Patient came in concerned about a possible stroke. He saw Jony Godinez on 01/17/2025 she ordered a stat brain CT. Patient states that when spoke with Dr. Mcudffie that he told him that the CT would not show anything. Still experiencing blurred vision, trouble swallowing as well. Please advise documented in this encounter [facility] 01-29-2025 Telephone encounter Note Nurse triage appt scheduled. Pt is scheduled with Maylin Cheng on 01/31/25. [facility] 01-29-2025 Telephone encounter Note Patient came in concerned about a possible stroke. He saw Jony Godinez on 01/17/2025 she ordered a stat brain CT. Patient states that when spoke with Dr. Mcduffie that he told him that the CT would not show anything. Still experiencing blurred vision, trouble swallowing as well. Please advise [facility] 01-18-2025 Radiology Diagnostic study note [facility] Imaging Services [address] [place] [address] Brain/Head without Contrast MR#: [id number] Acct: [id number] Name: ALEJO GAGE Rep #: [id number] : 1940 M 84 From: Lu Steven MD PCP: Dr. Samson Ragsdale DO Status: RE G CLI Study:Brain/Head without Contrast Date of Exa m: 01/18/25 Exam# [id number] Ordering Dr: [place] Godinez NP-[place] PROCEDURE: BRAIN/HEAD WITHOUT CONTRAST 01/18/2025 REASON FOR EXAM: FOCAL NEURO DEFICIT STROKE SUSPECTED TECHNIQUE: BRAIN/HEAD WITHOUT CONTRAST Coronal and Sagittal reconstruction series were provided. One or more dose reduction techniques were used (e.g., Automated exposure control, adjustment of the mA and/or kV according to patient size, use of iterative reconstruction technique. RADIATION DOSE SUMMARY: CTDlvol: 44.99 mGy DLP: 798 mGycm COMPARISON: None. FINDINGS: Mild diffuse cortical atrophy, commensurate with the patient's age. Scattered hypodense foci in the periventricular and subcortical white matter suggestive of chronic ischemic white matter disease. Normal size of the ventricles and extra-axial spaces for the patient's age. Normal basal ganglia and thalami. Normal brainstem. Normal cerebellum. There is no demonstrated extra-axial, intraparenchymal, or intraventricular hemorrhage. There are no findings of an acute ischemic infarction. Normal calvarium. There is no demonstrated fracture. Normal soft tissue structures. Mild chronic mucosal inflammatory changes of the right frontal sinus. Normal remaining visualized paranasal sinuses. CT/Brain/Head without Contrast IMPRESSION: No CT evidence for acute brain abnormality. Reading Location: [place] [address] CC: ENTRY LEVEL BUSINESS ANALYST-C Lala Godinez; Dr. Samson Ragsdale DO ~ Green House Manager: Signed [facility] 01-17-2025 Note HNO ID: [id number] Author: LALA GODINEZ APRN.KEELER POLYGRAPH OPERATOR Service: ? Author Type: Nurse Practitioner Type: Progress Notes Filed: 01/17/2025 12:10 Note Text: Chief Complaint Patient presents with: ER F/U HPI Alejo Gage is a 84 year old male who presents here today for Above Complaints. Orthopnea and Dyspnea: - Orthopnea and increasing dyspnea over the past 7-10 days. - Seen in [facility] ER on 01/14; BNP, troponins, and chest X-ray were normal. - Seen by cardiology at [facility] on 01/15; isosorbide increased to 60 mg daily. - Echocardiogram and stress test ordered. - Referred to pulmonology by Dr. Shelby due to concern for COPD. - Alejo reports blurry vision and dysphagia since onset [...] without mention of hemorrhage 04/26/2017 EGD by [facility] 03/24/2022 [facility] can help [...] Xience stent to L circumflex EGD 04/26/2017 [facility] Dr. Nolan Triana EGD 05/23/2024 EGD TRANSORAL BIOPSY SINGLE/MULTIPLE 07/10/2007 PAST SURGICAL HISTORY OF 01/26/2008 stent placement ramus and prox ramus PAST SURGICAL HISTORY OF heart stents PROSTATECTOMY PERINEAL RADICAL 2000 Prostatectomy, radical- Dr. 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 Yousif Triana; next screening colonoscopy in 10yrs, [facility] UNLISTED DIAGNOSTIC GASTROENTEROLOGY PROCEDURE 06/06/2018 Family History FAMILY HISTORY Problem Relation Age of Onset Hypertension Father COPD Father Heart Mother Patient Allergies ALLERGIES Allergen Reactions Atorvastatin Unknown Crestor [Rosuvastat* Other: See Comments Muscle pain Glucosamine Unknown Nerve pain Motrin [Ibuprofen] Rash Pravastatin Other: See Comments muscle aches Cwvolym-Vnv-Vpi Red* Other: See Comments myalgia Current Medications [...] 10 Units subcutaneously daily at bedtime. Insulin Huntley, Disposable, (BD ULTRA-FINE N (more content not included)... [facility] 01-17-2025 History of Present illness Narrative Chief Complaint Patient presents with: ER F/U HPI Alejo Gage is a 84 year old male who presents here today for Above Complaints. Orthopnea and Dyspnea: - Orthopnea and increasing dyspnea over the past 7-10 days. - Seen in [facility] ER on 01/14; BNP, troponins, and chest X-ray were normal. - Seen by cardiology at [facility] on 01/15; isosorbide increased to 60 mg daily. - Echocardiogram and stress test ordered. - Referred to pulmonology by Dr. Shelby due to concern for COPD. - Alejo reports blurry vision and dysphagia since onset [...] Xience stent to L circumflex EGD 04/26/2017 [facility] Dr. Nolan Triana EGD 05/23/2024 EGD TRANSORAL BIOPSY SINGLE/MULTIPLE 07/10/2007 PAST SURGICAL HISTORY OF 01/26/2008 stent placement ramus and prox ramus PAST SURGICAL HISTORY OF heart stents PROSTATECTOMY PERINEAL RADICAL 1999 Prostatectomy, radical- Dr. 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 Yousif Triana; next screening colonoscopy in 10yrs, [facility] UNLISTED DIAGNOSTIC GASTROENTEROLOGY PROCEDURE 06/06/2018 Family History FAMILY HISTORY Problem Relation Age of Onset Hypertension Father COPD Father Heart Mother Patient Allergies ALLERGIES Allergen Reactions Atorvastatin Unknown Crestor [Rosuvastat* Other: See Comments Muscle pain Glucosamine Unknown Nerve pain Motrin [Ibuprofen] Rash Pravastatin Other: See Comments muscle aches Rnfwglf-Sfj-Lbq Red* Other: See Comments myalgia Current Medications [...] 10 Units subcutaneously daily at bedtime. Insulin Huntley, Disposable, (BD ULTRA-FINE BENNY PEN NEEDLE) 32 [...] without murmur, gallop, or rubs. No ectopy. [facility] Maintenance List Medicare Annual Wellness Visit Never [...] BLISTR POWDR FOR INHALATION 2. Atherosclerosis 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 - ICD9: 414.01, [...] R13.10 - CT BRAIN WO IVCON, Called [facility] and patient scheduled 01/18 at [address] since he has other evaluations being completed tomorrow at [place]. 6. Vision changes - ICD9: 368.9, ICD10: H53.9= - CT BRAIN WO IVCON. Called [facility] and patient scheduled 01/18 at [address] since he has other evaluations being completed tomorrow at [place]. I spent 55 minutes in the visit, with more than 50% of the total ybzw-fm-sjom time of the visit in counseling / coordination of care. Lala Godinez APRN.KEELER POLYGRAPH OPERATOR documented in this encounter [facility] 01-15-2025 Evaluation note Diagnosis Onset Date Resolution Dyspnea acute January 15 1:22pm Abdominal aortic aneurysm chronic January 15, 2025 1:22pm Carotid bruit chronic January 15, 2025 1:22pm Chronic kidney disease chronic Ju ne 2024 1:22pm Coronary artery disease chronic J une 2024 1:22pm Dyslipidemia chronic January 15 025 1:22pm History of diabetes mellitus chronic January 15, 2025 1:22pm Hypertension chronic January 15 025 1:22pm [facility] Work Phone: 1(222) 773-561906-17-2025 Evaluation note* Diagnosis Onset Date Resolution Status Admit Date Dyspnea acute January 15 1:22pm Abdominal aortic aneurysm chronic January 15, 2025 1:22pm Carotid bruit chronic January 15, 2025 1:22pm Coronary artery disease chronic J une 2024 1:22pm Dyslipidemia chronic January 15 025 1:22pm Hypertension chronic January 15 025 1:22pm Chronic kidney disease inactive Ju ne 2024 1:22pm History of diabetes mellitus inactiv e January 15, 2025 1:22pm [facility] Work Phone: 1(755) 961-628306-17-2025 Evaluation note* Diagnosis Onset Date Resolution Status Admit Date Dyspnea acute January 15 1:22pm Abdominal aortic aneurysm chronic January 15, 2025 1:22pm Carotid bruit chronic January 15, 2025 1:22pm Coronary artery disease chronic J une 2024 1:22pm Dyslipidemia chronic January 15, 2 025 1:22pm Hypertension chronic January 15 025 1:22pm Chronic kidney disease inactive Ju ne 2024 1:22pm History of diabetes mellitus inactiv e January 15, 2025 1:22pm Dyspnea acute February 21 11:13am Abdominal aortic aneurysm chronic February 21, 2025 11:13am Carotid bruit chronic February 21, 2025 11:13am Coronary artery disease chronic J nohemy 2024 11:13am Dyslipidemia chronic February 21, 025 11:13am Hypertension chronic February 21, 025 11:13am Chronic kidney disease inactive Ju ly 2024 11:13am History of diabetes mellitus inactiv e February 21, 2025 11:13am [facility] Work Phone: 1(665) 177-376106-17-2025 Evaluation note* Diagnosis Onset Date Resolution Status Admit Date Dyspnea acute January 15 1:22pm Abdominal aortic aneurysm chronic January 15, 2025 1:22pm Carotid bruit chronic January 15, 2025 1:22pm Coronary artery disease chronic J une 2024 1:22pm Dyslipidemia chronic January 15 025 1:22pm Hypertension chronic January 15 025 1:22pm Chronic kidney disease inactive Ju ne 2024 1:22pm History of diabetes mellitus inactiv e January 15, 2025 1:22pm Dyspnea acute February 21 11:13am Abdominal aortic aneurysm chronic February 21, 2025 11:13am Carotid bruit chronic February 21, 2025 11:13am Coronary artery disease chronic J nohemy 2024 11:13am Dyslipidemia chronic February 21, 025 11:13am Hypertension chronic February 21, 025 11:13am [facility] Work Phone: 1(290) 249-833106-17-2025 Progress [facility] [address] [place], [place] [id number] OFFICE VISIT Date of Service: 01/15/25 MR#: [id number] Acct: [id number] Name: SANTOSHCUATEALEJO Jordan Rep #: [id number] : 1940 Provider: Dr. Atif Montano MD Age/Sex: 84/M Location: [facility] Status: Signed HPI HPI History of Present Illness Details: This gentleman has past medical history significant for coronary artery disease status post CABG with CASTILLO to the LAD, history of myocardial infarctions status post DAVID to the left circumflex and to the right coronary artery, hypertension and dyslipidemia. He has not been seen in our office since 2020. [facility] Per patient, for the last couple [...] air Intake Visit Reasons: Shortness of breath Poll Watcher Required: No Accompanied by: Is patient in pain?: No Allergies ibuprofen Allergy (Unknown, Unverified 01/15/25 13:36) NEEDS FOLLOW-UP pravastatin Allergy (Unknown, Verified 01/15/25 13:36) NEEDS FOLLOW-UP atorvastatin (From Lipitor) Allergy (Verified 01/15/25 13:36) Unknown glucosamine Allergy (Verified 01/15/25 13:36) Unknown rosuvastatin Adverse Reaction (Unknown, Verified 01/15/25 13:36) NEEDS FOLLOW-UP Hfxrulr-TBJ-LeL Reductase Inhibitor Adverse Reaction (Unknown, Verified 01/15/2513:36) [...] (single episode; no major injury) [facility] Medical History Abdominal aneurysm without mention of rupture Abdominal aortic aneurysm without rupture Acute gastritis without mention of hemorrhage Acute myocardial infarction Atherosclerosis of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[place] heart without angina pectoris Carotid artery stenosis [...] cancer PVD (peripheral vascular disease) ST elevation AZ (STEMI) Unspecified constipation Unspecified hypertensive heart disease [...] function is normal. EF = 55 +/- 5%(2D Biplane) Grade I left ventricular diastolic dysfunction. -The right ventricle is normal in size. Right ventricular systolic function is normal. -There are no significant valvular abnormalities. -Exam was compared with the prior echocardiographic exam performed on 06/14/2005 (Stress). Therehas been no significant change in left ventricular systolic function. Stress Echocardiogram 11/09/2017: Interpretation Summary: Normal, adequate, modified Scooby treadmill echocardiogram. Negative for ischemiaby EKG and echocardiographic criteria. No anginal symptoms noted. No arrhythmiasnoted. Appropriate blood pressure response to exercise. Average exercise capacity for age. Average exercise capacity for age. Final LVEF is75%. Test terminated due to knee pain. Stress [...] of the LAD and Distal RCA Acute AZ due to occlusion of RCA Right heart [...] marginal branch was somewhat small to medium incaliber, but we could not recanalize despite attempts to recanalize it. However it did appear to bereturning back on its own towards the end [...] Cardiac Ejection fraction %: 55 01/15/25 1425 MD> Date _ Srini Montano MD Cosigner Signature: Date (if applicable) CC: Dr. Samson Ragsdale, DO ~ [facility]06-17-2025 Progress note Author Srini Montano [facility] Note Date/Time January 15, 2025 2:25 pm [facility] [address] [place] [address]. [address] [place] [address] OFFICE VISIT Date of Service: 01/15/25 MR#: [id number] Acct: [id number] Name: ALEJO GAGE Rep #: [id number] : 1940 Provider: Dr. Atif Montano MD Age/Sex: 84/M Location: [facility] Status: Signed HPI HPI History of Present Illness Details: This gentleman has past medical history significant for coronary artery disease status post CABG with CASTILLO to the LAD, history of myocardial infarctions status post DAVID to the left circumflex and to the right coronary artery, hypertension and dyslipidemia. He has not been seen in our office since 2020. [facility] Per patient, for the last couple [...] air Intake Visit Reasons: Shortness of breath Poll Watcher Required: No Accompanied by: Is patient in pain?: No Allergies ibuprofen Allergy (Unknown, Unverified 01/15/25 13:36) NEEDS FOLLOW-UP pravastatin Allergy (Unknown, Verified 01/15/25 13:36) NEEDS FOLLOW-UP atorvastatin (From Lipitor) Allergy (Verified 01/15/25 13:36) Unknown glucosamine Allergy (Verified 01/15/25 13:36) Unknown rosuvastatin Adverse Reaction (Unknown, Verified 01/15/25 13:36) NEEDS FOLLOW-UP Uctqfru-QDA-AmW Reductase Inhibitor Adverse Reaction (Unknown, Verified 01/15/2513:36) [...] (single episode; no major injury) [facility] Medical History Abdominal aneurysm without mention of rupture Abdominal aortic aneurysm without rupture Acute gastritis without mention of hemorrhage Acute myocardial infarction Atherosclerosis of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[place] heart without angina pectoris Carotid artery stenosis [...] cancer PVD (peripheral vascular disease) ST elevation AZ (STEMI) Unspecified constipation Unspecified hypertensive heart disease [...] of the LAD and Distal RCA Acute AZ due to occlusion of RCA Right heart [...] of 0% with CHRISTA grade 0 flow pre- procedure and CHRISTA grade III flow post procedure. [...] Signature: Date (if applicable) CC: Dr. Samson Ragsdale DO ~ [facility] Work Phone: 1(555) 244-204706-16-2025 Discharge summary [facility] Medical Records Department [address] [place] [address] Emergency Department Summary 01/13/25 MR#: [id number] Acct: [id number] Name: ALEJO GAGE Rep #:[id number] : 1940 84 From: Adam Mon [...] None Narrative Narrative: 84-year-old male history of AZ, hypertension, diabetes, ischemic cardiomyopathy and prior prostate [...] vascular disease) Atherosclerosis of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[place] heart without angina pectoris Complete heart block ST elevation AZ (STEMI) Chronic kidney disease, stage 3 Hyperlipidemia [...] He has an appointment to see his production intern on Tuesday. They are comfortable with him [...] (Auto) 70.0 Lymph % (Auto) 18.6 L Surry % (Auto) 8.2 Eos % (Auto) 2.5 [...] pneumothorax. Left base subsegmental atelectasis. Reading Location: [facility] Chest x-ray, 2 views, interpreted by [...] rate of 61 no acute signs of AZ or ischemia. Discharge Plan Triage Chief Complaint: [...] your shortness of breath. Follow-up with your production intern. Print Language: Tajik Disposition Disposition: Home, Self Care What to do if you have Problems For any increased pain, shortness of breath, bleeding, nausea or vomiting, chestpain, or any unexpected problems, contact your Primary Care Provider. Call [facility] ([phone]) or report tothe closest Emergency Room. Call 911 if necessary. 01/14/25 0207 Cosigner Signature (if applicable): CC: Dr. Samson Ragsdale DO ~ Signed [facility]06-16-2025 Radiology Diagnostic study note [facility] Imaging Services [address] [place], [place] [address] Chest PA and Lateral MR#: [id number] Acct: [id number] Name: ALEJO GAGE Rep #: [id number] : 1940 M 84 From: Le Rowell MD PCP: Dr. Samson Ragsdale DO Status: RE G ER Study:Chest PA and Lateral Date of Exam: 01/13/25 Exam# [id number] Ordering Dr: Eliazar Mon MD PROCEDURE: CHEST PA AND LATERAL 01/13/2025 REASON FOR EXAM: CHEST PAIN TECHNIQUE: CHEST PA AND LATERAL COMPARISON: none FINDINGS: Median sternotomy wires. Aortic arch calcification. Left base subsegmental atelectasis. No focal consolidations. No pleural effusion or pneumothorax. RAD/Chest PA and Lateral IMPRESSION: No focal consolidations. No pleural effusion or pneumothorax. Left base subsegmental atelectasis. Reading Location: [id number] CC: Dr. Adam Mon MD; Dr. Samson Ragsdale DO ~ Green House Manager: Signed [facility]06-15-2025 Discharge summary Author Adam Mon [facility] Note Date/Time January 14, 2025 2:07 am [facility] Medical Records Department [address] [place] [address] Emergency Department Summary 01/13/25 MR#: [id number] Acct: [id number] Name: ALEJO GAGE Rep #:[id number] : 1940 84 From: Adam Mon MD PCP: Dr. Samson Ragsdale, Status:RE G ER Location: ED HPI History of Present Illness Chief Complaint: Shortness of Breath Informant: patient Onset/Context/Timing Onset: Weeks (The last week.) Context: gradual Timing: Intermittent Quality: Positive for Orthopnea Current Severity: Mild Maximum Severity: Mild Worsened by: Lying flat Relieved by: other (Upright it resolves.) Associated Symptoms Negative for cough Chest Pain: Positive for None Narrative Narrative: 84-year-old male history of AZ, hypertension, diabetes, ischemic cardiomyopathy and prior prostate [...] vascular disease) Atherosclerosis of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[place] heart without angina pectoris Complete heart block ST elevation AZ (STEMI) Chronic kidney disease, stage 3 Hyperlipidemia [...] He has an appointment to see his production intern on Tuesday. They are comfortable with him [...] (Auto) 70.0 Lymph % (Auto) 18.6 L Surry % (Auto) 8.2 Eos % (Auto) 2.5 [...] pneumothorax. Left base subsegmental atelectasis. Reading Location: [facility] Chest x-ray, 2 views, interpreted by [...] rate of 61 no acute signs of AZ or ischemia. Discharge Plan Triage Chief Complaint: [...] your shortness of breath. Follow-up with your production intern. Print Language: Tajik Disposition Disposition: Home, Self Care What to do if you have Problems For any increased pain, shortness of breath, bleeding, nausea or vomiting, chestpain, or any unexpected problems, contact your Primary Care Provider. Call [facility] ([phone]) or report to the closest Emergency Room. Call 911 if necessary. 01/14/25 0207 <Electronically signed by Adam Mon MD> Cosigner Signature (if applicable): CC: Dr. Samson Ragsdale DO ~ Signed [facility] Work Phone: 1(132) 340-229906-11-2025 NoteHNO ID: [id number] Author: KHLOE IBARRA APRN.KEELER POLYGRAPH OPERATOR Service: ? Author Type: Nurse Practitioner Type: Progress Notes Filed: 01/09/2025 16:53 Note Text: [facility] Subjective Alejo Gage is a 84 year old male. 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 Mild lower leg swelling but denies that [...] without mention of hemorrhage 04/26/2017 EGD by [facility] 03/24/2022 [facility] can help [...] Xience stent to L circumflex EGD 04/26/2017 [facility] Dr. Nolan Triana EGD 05/23/2024 EGD TRANSORAL BIOPSY SINGLE/MULTIPLE 07/10/2007 PAST SURGICAL HISTORY OF 01/26/2008 stent placement ramus and prox ramus PAST SURGICAL HISTORY OF heart stents PROSTATECTOMY PERINEAL RADICAL 2000 Prostatectomy, radical- Dr. 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 Yousif Triana; next screening colonoscopy in 10yrs, [facility] UNLISTED DIAGNOSTIC GASTROENTEROLOGY PROCEDURE 06/06/2018 ALLERGIES Atorvastatin, Crestor [Rosuvastatin Calcium], Glucosamine, Motrin [Ibuprofen], Pravastatin, and Nguswlz-Ukb-Yrn Reductase Inhibitors MEDICATIONS zinc sulfate (ZINC-15 ORAL) [...] 10 Units subcutaneously daily at bedtime. Insulin Huntley, Disposable, (BD ULTRA-FINE BENNY PEN NEEDLE) 32 [...] daily. potassium chloride ( (more content not included)...[facility] 01-09-2025 History of Present illness Narrative* Khloe Ibarra APRN.KEELER POLYGRAPH OPERATOR - 01/09/2025 3:01 PM EDT [facility] Subjective Alejo Gage is a 84 year old male. 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 Mild lower leg swelling but denies that [...] (without mention of hemorrhage) 04/26/2017 colonoscopy by [facility]ujaison Esophagitis Generalized osteoarthrosis, unspecified site Internal hemorrhoid [...] Xience stent to L circumflex EGD 04/26/2017 [facility] Dr. Nolan Triana EGD 05/23/2024 EGD TRANSORAL BIOPSY SINGLE/MULTIPLE 07/10/2007 PAST SURGICAL HISTORY OF 01/26/2008 stent placement ramus and prox ramus PAST SURGICAL HISTORY OF heart stents PROSTATECTOMY PERINEAL RADICAL 2000 Prostatectomy, radical- Dr. 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 Yousif Triana; next screening colonoscopy in 10yrs, [facility] UNLISTED DIAGNOSTIC GASTROENTEROLOGY PROCEDURE 06/06/2018 ALLERGIES Atorvastatin, Crestor [Rosuvastatin Calcium], Glucosamine, Motrin [Ibuprofen], Pravastatin, and Lowuvzm-Rnt-Efx Reductase Inhibitors MEDICATIONS zinc sulfate (ZINC-15 ORAL) [...] Inject 10 Units subcutaneouslydaily at bedtime. Insulin Huntley, Disposable, (BD ULTRA-FINE BENNY PEN NEEDLE) 32 [...] symptoms persist or worsen. - Dalia Ibarra APRN.KEELER POLYGRAPH OPERATOR [facility] Patient well appearing nontoxic in no acute [...] plan. Patient discharged home. documented in this encounter[facility] History of Present illness Narrative* Jennifer Cano RT(Yousif) - 01/09/2025 2:30 PM EDT Radiology Service Progress Note PATIENT NAME: Alejo Gage DATE OF SERVICE: January 09, 2025 [...] PATIENT PRESENTS WITH AN IMPLANTABLE OR ATTACHED AREA COUNSELOR: No RADIOLOGY DEPARTMENT: General X-ray: Exam(s) Completed: Chest X-Ray PERIPHERAL IV DATA: Not applicable SIGNED BY: WOOD Berkowitz) January 09, 2025 2:26 PM documented in this encounterKet[facility]06-11-2025 NoteHNO ID: [id number] Author: JENNIFER CANO RT(R) Service: ? Author Type: Technologist Type: Progress Notes Filed: 01/09/2025 14:36 Note Text: Radiology Service Progress Note PATIENT NAME: Alejo Gage DATE OF SERVICE: January 09, 2025 [...] PATIENT PRESENTS WITH AN IMPLANTABLE OR ATTACHED AREA COUNSELOR: No RADIOLOGY DEPARTMENT: General X-ray: Exam(s) Completed: Chest X-Ray PERIPHERAL IV DATA: Not applicable SIGNED BY: RT Woo(R) January 09, 2025 2:26 [facility]05-12-2025 NoteHNO ID: [id number] Author: REGAN ROSS MA Service: ? Author Type: Tag Stringer Type: Progress Notes Filed: 12/10/2024 13:12 Note [...] already scheduled Updated appointment notes Navigation Signature: Regan Ross MA December 10, 2024 12:51 [facility]05-12-2025 History of Present illness Narrative* Regan Ross MA - 12/10/2024 12:50 PM EDT [...] already scheduled Updated appointment notes Navigation Signature: Regan Ross MA December 10, 2024 12:51 PM documented in this encounterKet[facility]05-12-2025 NotePatient Outreach (NETNAV) ALEJO GAGE ([id number]) 1940 M Date Time Provider Department 12/10/24 REGAN ROSS During your visit today, we recorded the following information about you: Regan Ross MA 12/10/2024 1:12 PM Signed POPULATION [...] already scheduled Updated appointment notes Navigation Signature: Regan Ross MA December 10, 2024 12:51 PM Allergies As of Date: 12/10/2024 Noted Allergy Reaction ATORVASTATIN 10/18/2017 16 - Unknown CRESTOR (ROSUVASTATIN CALCIUM) 04/24/2013 14 - Other: See Comments Comments: Muscle pain GLUCOSAMINE 06/27/2017 16 - Unknown Comments: Nerve pain MOTRIN (IBUPROFEN) 01/19/2006 2 - Rash PRAVASTATIN 02/19/2013 14 - Other: See Comments Comments: muscle aches [id number] REDUCTASE INHIBIT*10/09/2014 14 - Other: See Comments Comments: myalgia Date Reviewed: 11/26/2024 Reviewed by: Mariaelena Culp LPN - Fully Assessed Reason for Visit: Population Health Navigation Outreach [[id number]] Cmt: WES YAN PCSA Prescriptions as of 12/10/2024 - [...] Units subcutaneously daily at bedtime. - Insulin Huntley, Disposable, (BD ULTRA-FINE BENNY PEN NEEDLE) 32 gauge x /32 Use once daily with Lantus as directed [...] of hemorrhage [*1 (more content not included)... [facility]04-28-2025 History of Present illness Narrative* Miya Woodson RT(R) - 11/26/2024 3:40 PM EDT Radiology Service Progress Note PATIENT NAME: Alejo Ggae DATE OF SERVICE: November 26, 2024 TIME: [...] PATIENT PRESENTS WITH AN IMPLANTABLE OR ATTACHED AREA COUNSELOR: No RADIOLOGY DEPARTMENT: General X-ray: Exam(s) Completed: Spine X-Ray(s): Thoracic Upper Extremity X-Ray(s): Shoulder, AP / TRUE AP / AXILLARY bilateral PERIPHERAL IV DATA: Not applicable SIGNED BY: RT Galileo(R) November 26, 2024 3:32 PM documented in this encounterKet[facility]04-28-2025 NoteHNO ID: [id number] Author: MIYA WOODSON RT(Yousif) Service: ? Author Type: Roof Truss Machine Tender Type: Progress Notes Filed: 11/26/2024 15:48 Note Text: Radiology Service Progress Note PATIENT NAME: Alejo Gage DATE OF SERVICE: November 26, 2024 [...] PATIENT PRESENTS WITH AN IMPLANTABLE OR ATTACHED AREA COUNSELOR: No RADIOLOGY DEPARTMENT: General X-ray: Exam(s) Completed: Spine X-Ray(s): Thoracic Upper Extremity X-Ray(s): Shoulder, AP / TRUE AP / AXILLARY bilateral PERIPHERAL IV DATA: Not applicable SIGNED BY: RT Galileo(R) November 26, 2024 3:32 [facility]04-28-2025 NoteHNO ID: [id number] Author: THEODORA HERNANDEZ APRN.KEELER POLYGRAPH OPERATOR Service: ? Author Type: Nurse Practitioner Type: Progress Notes Filed: 11/26/2024 15:43 Note Text: CC: Patient presents with: Pain: in right shoulder for about 6 weeks denies any injury HPI Recording using SureVisit software for draft documentation of the visit was discussed with the patient/authorized provider service representative; all questions welcomed and answered. Patient/authorized provider service representative agreed to proceed Alejo is a 84-year-old male with a history of diabetes mellitus, presenting with bilateral shoulder pain, predominantly on the right side. Alejo reports a 6-8 week history of bilateral [...] any previous episodes of similar shoulder pain. Alejo reports occasional grinding sensations in the shoulders [...] Xience stent to L circumflex EGD 04/26/2017 [facility] Dr. Nolan Triana EGD 05/23/2024 EGD TRANSORAL BIOPSY SINGLE/MULTIPLE 07/10/2007 PAST SURGICAL HISTORY OF 01/26/2008 stent placement ramus and prox ramus PAST SURGICAL HISTORY OF heart stents PROSTATECTOMY PERINEAL RADICAL 2000 Prostatectomy, radical- Dr. 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 Yousif Triana; next screening colonoscopy in 10yrs, [facility] UNLISTED DIAGNOSTIC GASTROENTEROLOGY PROCEDURE 06/06/2018 ALLERGIES Atorvastatin, Crestor [Rosuvastatin Calcium], Glucosamine, Motrin [Ibuprofen], Pravastatin, and Ivuxmlb-Qnp-Kcs Reductase Inhibitors MEDICATIONS amLODIPine (NORVASC) 10 mg [...] by mouth once daily. (more content not included)...[facility]04-28-2025 History of Present illness Narrative* Theodora Hernandez, LACE ROLLER.KEELER POLYGRAPH OPERATOR - 11/26/2024 3:29 PM EDT CC: Patient presents with: Pain: in right shoulder for about 6 weeks denies any injury HPI Recording using SureVisit software for draft documentation of the visit was discussed with the patient/authorized provider service representative; all questions welcomed and answered. Patient/authorized provider service representative agreed to proceed Alejo is a 84-year-old male with a history of diabetes mellitus, presenting with bilateral shoulder pain, predominantly on the right side. Alejo reports a 6-8 week history of bilateral shoulder pain, with the right shoulder being more affected. The pain is described as sharp and is localized to the posterior shoulder and scapular area. The pain is exacerbated at night, particularly when lying on the right side or raising the arm. Homeotes difficulty sleeping due to the pain and has been taking hydrocodone 5/325 mg, which provides some relief. He denies any history of strenuous activity or heavy lifting preceding the onset of pain. He also denies any previous episodes of similar shoulder pain. Alejo reports occasional grinding sensations in the shoulders [...] unspecified site Internal hemorrhoid 04/26/2017 colonoscopy by [facility]ja[facility] Iron deficiency anemia Malignant neoplasm of prostate [...] Xience stent to L circumflex EGD 04/26/2017 [facility] [address]. Nolan Triana EGD 05/23/2024 EGD TRANSORAL BIOPSY SINGLE/MULTIPLE 07/10/2007 PAST SURGICAL HISTORY OF 01/26/2008 stent placement ramus and prox ramus PAST SURGICAL HISTORY OF heart stents PROSTATECTOMY PERINEAL RADICAL 2000 Prostatectomy, radical- Dr. 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 Yousif Triana; next screening colonoscopy in 10yrs, [facility] UNLISTED DIAGNOSTIC GASTROENTEROLOGY PROCEDURE 06/06/2018 ALLERGIES Atorvastatin, Crestor [Rosuvastatin Calcium], Glucosamine, Motrin [Ibuprofen], Pravastatin, and Lggrdpn-Jlj-Zzx Reductase Inhibitors MEDICATIONS amLODIPine (NORVASC) 10 mg [...] day. Insulin Dep? Yes DX E11.9 Insulin Huntley, Disposable, (BD ULTRA-FINE BENNY PEN NEEDLE) 32 [...] Patient agreeable to treatment plan. Theodora Hernandez APRN.KEELER POLYGRAPH OPERATOR documented in this encounterKet[facility]04-28-2025 Instructions* Patient Instructions* Theodora Hernandez [...] heat or ice on the affected area. Gtgd-ncm-xzecjhu options like Icy Hot or Biofreeze may [...] prednisone and hydrocodone have been sent to [facility] in [place]. Please let us know if you have any questions or concerns. documented in this encounterK[facility]03-27-2025 Telephone encounter Note * Telephone [...] Arboleda LPN October 25, 2024 4:04 PM [facility]03-27-2025 Miscellaneous Notes* Telephone Encounter - [...] 25, 2024 4:04 PM documented in this encounterKettering [facility]02-26-2025 NoteHNO ID: [id number] Author: SAMSON RAGSDALE, DO Service: ? Author Type: Physician Type: Progress Notes Filed: 09/26/2024 16:41 Note Text: Patient presents with: Yearly Exam HPI: Alejo Gage is a 84 year old male [...] with average BP's in the 100-150/60-80s range. Alejo gets sporadic irregular exercise. PAST MEDICAL HISTORY [...] Xience stent to L circumflex EGD 04/26/2017 [facility] [address]. Nolan Triana EGD 05/23/2024 EGD TRANSORAL BIOPSY SINGLE/MULTIPLE 07/10/2007 PAST SURGICAL HISTORY OF 01/26/2008 stent placement ramus and prox ramus PAST SURGICAL HISTORY OF heart stents PROSTATECTOMY PERINEAL RADICAL 2000 Prostatectomy, radical- Dr. 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 Yousif Triana; next screening colonoscopy in 10yrs, [facility] UNLISTED DIAGNOSTIC GASTROENTEROLOGY PROCEDURE 06/06/2018 Social History [...] Father Heart Mother Allergies: (more content not included)...[facility]02-[facility]25 History of Present illness Narrative* Samson Ragsdale, DO - 09/26/2024 2:30 PM EST Patient presents with: Yearly Exam HPI: Alejo Gage is a 84 year old male [...] with average BP's in the 100-150/60-80s range. Alejo gets sporadic irregular exercise. PAST MEDICAL HISTORY [...] Xience stent to L circumflex EGD 04/26/2017 [facility] [address]. Nolan Triana EGD 05/23/2024 EGD TRANSORAL BIOPSY SINGLE/MULTIPLE 07/10/2007 PAST SURGICAL HISTORY OF 01/26/2008 stent placement ramus and prox ramus PAST SURGICAL HISTORY OF heart stents PROSTATECTOMY PERINEAL RADICAL 2000 Prostatectomy, radical- Dr. 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 Yousif Triana; next screening colonoscopy in 10yrs, [facility] UNLISTED DIAGNOSTIC GASTROENTEROLOGY PROCEDURE 06/06/2018 Social History [...] Rash Pravastatin Other: See Comments muscle aches Dbjrjuo-Uur-Kno Red* Other: See Comments myalgia Current Meds: [...] DM - Uncontrolled, E11.65 Insulin: Yes Insulin Huntley, Disposable, (BD ULTRA-FINE BENNY PEN NEEDLE) 32 [...] disease, with long-term current use of insulin ([facility]) - ICD9: 250.40, 585.4, V58.67, ICD10: E11.22, [...] kidney disease) stage 4, GFR 15-29 ml/min (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) - ICD9: 403.90, 585.4, ICD10: I12.9, N18.4 [...] 274.9, ICD10: M10.9 Stable. 9. Atherosclerosis 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 (HCC) - ICD9: [...] with the plan. Samson Ragsdale DO [address] [place] [address] documented in this encounterKet[facility]02-17-2025 Telephone encounter Note * Telephone Encounter - Desirae Irving APRN.CNP - 09/17/2024 2:05 PM EST Labs placed this morning. Already in process. Desirae Irving APRN.CNP [facility] Work Phone: 1(375) 339-424502-17-2025 Miscellaneous Notes* Telephone Encounter - Desirae Irving APRN.CNP - 09/17/2024 2:05 PM EST Labs placed this morning. Already in process. Desirae Irving APRN.KEELER POLYGRAPH OPERATOR * Telephone Encounter - Sirena Martinez - 09/17/2024 10:39 AM EST Patient is wanting to come in to today for routine lab work for upcoming wellness exam with PCP on 09/26/24. Please notify patient when orders are available in chart. documented in this encounterKettering [facility]02-17-2025 History of Present illness Narrative* Desirae Irving APRN.CNP - 09/17/2024 12:59 PM EST Lab work placed. Thank you, Desirae Irving APRN.KEELER POLYGRAPH OPERATOR documented in this encounterKettering Health [facility]02-17-2025 NoteHNO ID: [id number] Author: DESIRAE IRVING APRN.CNP Service: ? Author Type: Nurse Practitioner Type: Progress Notes Filed: 09/17/2024 13:00 Note Text: Lab work placed. Thank you, Desirae Irving APRN.CNPUniversity Hospitals St. [facility]02-17-2025 Telephone encounter Note* Telephone Encounter - Sirena Martinez - 09/17/2024 10:39 AM EST Patient is wanting to come in to today for routine lab work for upcoming wellness exam with PCP on 09/26/24. Please notify patient when orders are available in chart. [facility]11-[facility] Telephone encounter Note* Telephone Encounter - Komal Rich RN - 06/08/2024 2:53 PM EST [facility] [place] Komal Rich RN June 08, 2024 2:54 PM [facility]11-08-[facility]24 Miscellaneous Notes* Telephone Encounter - Komal Rich RN - 06/08/2024 2:53 PM EST [facility] [place] Komal Rich RN June 08, 2024 2:54 PM * Telephone Encounter - Cristela Andersen APRN.CNP - 06/08/2024 2:31 PM EST 3mg capsules [facility] to [facility] in [place]. Please call Alejo & let him know. Thank you, Cristela Andersen APRN.KEELER POLYGRAPH OPERATOR * Telephone Encounter - Olga Cobb RN [...] sent. Olga Cobb RN documented in this encounterKettering [facility]11-08-2024 Telephone encounter Note * Telephone Encounter - Cristela Andersen APRN.CNP - 06/08/2024 2:31 PM EST 3mg capsules sent to [facility] in [place]. Please call Alejo & let him know. Thank you, Cristela Andersen APRN.CNP [facility]11-[facility] Telephone encounter Note* Telephone Encounter [...] the script is sent. Olga Cobb RN [facility]10-31-[facility] History of Present illness Narrative* Cristela Andersen APRN.JAIRON - 05/31/2024 2:00 PM EDT FOLLOW UP VISIT - ENDOSCOPY Alejo Gage 1940 [id number] REFERRING PHYSICIAN: No referring provider defined for this encounter. Alejo Gage is a patient I am following [...] improvement. Cristela Andersen APRN.JAIRON documented in this encounterKettering Health [facility]10-31-2024 NoteHNO ID: [id number] Author: CRISTELA ANDERSEN APRN.JAIRON Service: ? Author Type: Nurse Practitioner Type: Progress Notes Filed: 05/31/2024 14:38 Note Text: FOLLOW UP VISIT - ENDOSCOPY Alejo Gage 1940 [id number] REFERRING PHYSICIAN: No referring provider defined for this encounter. Alejo Gage is a patient I am following [...] as needed for worsening/no improvement. Cristela Andersen APRN.JAIRONUniversity [facility]als [facility]10-[facility]-2024 Telephone encounter Note* Telephone Encounter - Sivan Ross - 05/30/2024 12:52 PM EDT Patient notified and scheduled for an EGD & colon follow up from 05-23 Sivan Ross [facility] Work Phone: 1(509) 875-867510-30-2024 Miscellaneous Notes* Telephone Encounter - Sivan Ross - 05/30/2024 12:52 PM EDT Patient notified and scheduled for an EGD & colon follow up from 05-23 Sivan Ross * Telephone Encounter - Cristela Andersen APRN.CNP - 05/30/2024 9:56 AM EDT Can you please call Alejo to let him know he needs a visit to go over his colonoscopy/EGD results. Can be in person or virtual. Thank you, Cristela Andersen APRN.KEELER POLYGRAPH OPERATOR documented in this encounterKettering Health [facility]10-30-2024 Telephone encounter Note * Telephone Encounter - Cristela Andersen APRN.CNP - 05/30/2024 9:56 AM EDT Can you please call Alejo to let him know he needs a visit to go over his colonoscopy/EGD results. Can be in person or virtual. Thank you, Cristela Andersen APRN.JAIRON [facility] Work Phone: 1(125) 786-912710-23-2024 Attending History and physical note* Malu Mendoza MD - 05/23/2024 2:15 PM EDT UPDATED HISTORY AND PHYSICAL EXAMINATION SERVICE DATE: 05/23/2024 SERVICE TIME: 13:33 SENSITIVE EXAMINATION CONSENT: The sensitive examination was discussed with the Patient or Patient's Authorized Production Internship. Asapplicable, any other physician, advance practice provider, medical student, or other health professional student that will be observing or involved in the sensitive examination for educational or training purposes was discussed with the Patient or Authorized Production Internship. The Patient or Authorized Production Internship has agreed to proceed with the sensitive [...] . SIGNATURE: Malu Mendoza MD PATIENT NAME: Alejo Gage DATE: May 23, 2024 TIME: 1:33 PM Source Note - Malu Mendoza MD - 05/23/2024 2:15 PM EDT HISTORY AND PHYSICAL Alejo Gage : 1940 REFERRING PHYSICIAN: Samson Ragsdale [address] [facility] [address] CHIEF COMPLAINT: Patient presents with: Consult: Colonoscopy HPI: Alejo is a 83 year old male referred for endoscopy. Alejo notes diarrhea x 6 months & decreased appetite. PCP Alejo denies abdominal pain.. Alejo notes diarrhea x 6 mos. Watery? +fluctuance Alejo denies constipation. Alejo notes a change in bowel habits. Alejo denies melena. Alejo denies bright red blood per rectum. Alejo notes hemorrhoids. Alejo notes heartburn- using Tums in excess. Alejo denies dysphagia. Alejo denies a history of ulcers/ peptic ulcer disease. +intermittent nausea Denies family history of colon issues. Alejo has a hx of CAD with stents from 2007. Last stress test 2022 EF of 53%. Alejo follows with [facility] had elective cath 06/2023 due to positive stress test. 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 Currently takes plavix. Follows with Dr. Petersen at [facility]. Last OV 07/2023 Alejo has a hx of Alzheimers dementia Alejo has undergone prior endoscopy. Last EGD &colonoscopy 04/2017 with At [facility] for anemia Impression: -Findings suggest upper [...] - Uncontrolled, E11.65 Insulin: Yes CRANBERRY Insulin Huntley, Disposable, (BD ULTRA-FINE BENNY PEN NEEDLE) 32 [...] [Rosuvastatin Calcium], Glucosamine, Motrin [Ibuprofen], Pravastatin, and Wbknkaw-Aoq-Ssa Reductase Inhibitors PAST MEDICAL HISTORY PAST MEDICAL [...] Xience stent to L circumflex EGD 04/26/2017 [facility] Dr. Nolan Triana EGD TRANSORAL BIOPSY SINGLE/MULTIPLE 07/10/07 PAST SURGICAL HISTORY OF 01/26/08 stent placement ramus and prox ramus PAST SURGICAL HISTORY OF heart stents PROSTATECTOMY PERINEAL RADICAL 2000 Prostatectomy, radical- Dr. 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 Yousif Triana; next screening colonoscopy in 10yrs, [facility] UNLISTED DIAGNOSTIC GASTROENTEROLOGY PROCEDURE 06/06/2018 FAMILY HISTORY [...] failure to complete the endoscopy and perforation. Alejo had the opportunity to ask questions concerning the planned endoscopy. My staff has also explained the procedure to the patient in understandable terms and has given the patient printed material concerning the procedure. Alejo freely consents to surgery. I plan to [...] and all questions were answered. MAC anesthesia. Alejo was counseled that if there are changes [...] edited and updated as necessary. Cristela Andersen APRN.KEELER POLYGRAPH OPERATOR [facility] Work Phone: 1([phone]) 517-463910-23-2024 History and physical note* Malu Mendoza MD - 05/23/2024 2:15 PM EDT HISTORY AND PHYSICAL Alejo Gage : 1940 REFERRING PHYSICIAN: Samson Ragsdale [address] [facility] [address] CHIEF COMPLAINT: Patient presents with: Consult: Colonoscopy HPI: Alejo is a 83 year old male referred for endoscopy. Alejo notes diarrhea x 6 months & decreased appetite. PCP Alejo denies abdominal pain.. Alejo notes diarrhea x 6 mos. Watery? +fluctuance Alejo denies constipation. Alejo notes a change in bowel habits. Alejo denies melena. Alejo denies bright red blood per rectum. Alejo notes hemorrhoids. Alejo notes heartburn- using Tums in excess. Alejo denies dysphagia. Alejo denies a history of ulcers/ peptic ulcer disease. +intermittent nausea Denies family history of colon issues. Alejo has a hx of CAD with stents from 2007. Last stress test 2022 EF of 53%. Alejo follows with [facility] had elective cath 06/2023 due to positive stress test. 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 Currently takes plavix. Follows with Dr. Petersen at [facility]. Last OV 07/2023 Alejo has a hx of Alzheimers dementia Alejo has undergone prior endoscopy. Last EGD &colonoscopy 04/2017 with At [facility] for anemia Impression: -Findings suggest upper [...] - Uncontrolled, E11.65 Insulin: Yes CRANBERRY Insulin Huntley, Disposable, (BD ULTRA-FINE BENNY PEN NEEDLE) 32 [...] [Rosuvastatin Calcium], Glucosamine, Motrin [Ibuprofen], Pravastatin, and Svktvxk-Yzr-Zod Reductase Inhibitors PAST MEDICAL HISTORY PAST MEDICAL [...] (without mention of hemorrhage) 04/26/2017 colonoscopy by Cebujaison Esophagitis Generalized osteoarthrosis, unspecified site Internal hemorrhoid 04/26/2017 colonoscopy by Cebujaison Iron deficiency anemia Malignant neoplasm of prostate [...] Xience stent to L circumflex EGD 04/26/2017 [facility] Dr. Nolan Triana EGD TRANSORAL BIOPSY SINGLE/MULTIPLE 07/10/07 PAST SURGICAL HISTORY OF 01/26/08 stent placement ramus and prox ramus PAST SURGICAL HISTORY OF heart stents PROSTATECTOMY PERINEAL RADICAL 1999 Prostatectomy, radical- Dr. 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 Yousif Triana; next screening colonoscopy in 10yrs, [facility] UNLISTED DIAGNOSTIC GASTROENTEROLOGY PROCEDURE 06/06/2018 FAMILY HISTORY [...] failure to complete the endoscopy and perforation. Alejo had the opportunity to ask questions concerning the planned endoscopy. My staff has also explained the procedure to the patient in understandable terms and has given the patient printed material concerning the procedure. Alejo freely consents to surgery. I plan to [...] and all questions were answered. MAC anesthesia. Alejo was counseled that if there are changes [...] edited and updated as necessary. Cristela Andersen APRN.KEELER POLYGRAPH OPERATOR [facility]10-23-2024 History and physical note* Malu Mendoza MD - 05/23/2024 2:15 PM EDT UPDATED HISTORY AND PHYSICAL EXAMINATION SERVICE DATE: 05/23/2024 SERVICE TIME: 13:33 SENSITIVE EXAMINATION CONSENT: The sensitive examination was discussed with the Patient or Patient's Authorized Production Internship. Asapplicable, any other physician, advance practice provider, medical student, or other health professional student that will be observing or involved in the sensitive examination for educational or training purposes was discussed with the Patient or Authorized Production Internship. The Patient or Authorized Production Internship has agreed to proceed with the sensitive [...] . SIGNATURE: Malu Mendoza MD PATIENT NAME: Alejo Gage DATE: May 23, 2024 TIME: 1:33 PM Source Note - Malu Mendoza MD - 05/23/2024 2:15 PM EDT HISTORY AND PHYSICAL Alejo Gage : 1940 REFERRING PHYSICIAN: Samson Ragsdale [address] [facility] [address] CHIEF COMPLAINT: Patient presents with: Consult: Colonoscopy HPI: Alejo is a 83 year old male referred for endoscopy. Alejo notes diarrhea x 6 months & decreased appetite. PCP Alejo denies abdominal pain.. Alejo notes diarrhea x 6 mos. Watery? +fluctuance Alejo denies constipation. Alejo notes a change in bowel habits. Alejo denies melena. Alejo denies bright red blood per rectum. Alejo notes hemorrhoids. Alejo notes heartburn- using Tums in excess. Alejo denies dysphagia. Alejo denies a history of ulcers/ peptic ulcer disease. +intermittent nausea Denies family history of colon issues. Alejo has a hx of CAD with stents from 2007. Last stress test 2022 EF of 53%. Alejo follows with [facility] [facility] had elective cath 06/2023 due to positive stress test. 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 Currently takes plavix. Follows with Dr. Petersen at [facility]. Last OV 07/2023 Alejo has a hx of Alzheimers dementia Alejo has undergone prior endoscopy. Last EGD &colonoscopy 04/2017 with At [facility] for anemia Impression: -Findings suggest upper [...] - Uncontrolled, E11.65 Insulin: Yes CRANBERRY Insulin Huntley, Disposable, (BD ULTRA-FINE BENNY PEN NEEDLE) 32 [...] [Rosuvastatin Calcium], Glucosamine, Motrin [Ibuprofen], Pravastatin, and Nacxtsz-Tdb-Fez Reductase Inhibitors PAST MEDICAL HISTORY PAST MEDICAL [...] Xience stent to L circumflex EGD 04/26/2017 [facility] Dr. Nolan Triana EGD TRANSORAL BIOPSY SINGLE/MULTIPLE 07/10/07 PAST SURGICAL HISTORY OF 01/26/08 stent placement ramus and prox ramus PAST SURGICAL HISTORY OF heart stents PROSTATECTOMY PERINEAL RADICAL 2000 Prostatectomy, radical- Dr. 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 Yousif Triana; next screening colonoscopy in 10yrs, [facility] UNLISTED DIAGNOSTIC GASTROENTEROLOGY PROCEDURE 06/06/2018 FAMILY HISTORY [...] entered by the nurse and reviewed by nj Nursing Notes: Sabina Cisneros RN 04/13/2024 3:37 [...] failure to complete the endoscopy and perforation. Alejo had the opportunity to ask questions concerning the planned endoscopy. My staff has also explained the procedure to the patient in understandable terms and has given the patient printed material concerning the procedure. Alejo freely consents to surgery. I plan to [...] and all questions were answered. MAC anesthesia. Aleoj was counseled that if there are changes [...] edited and updated as necessary. Cristela Andersen APRN.KEELER POLYGRAPH OPERATOR * Malu Mendoza MD - 05/23/2024 2:15 PM EDT HISTORY AND PHYSICAL Alejo Gage : 1940 REFERRING PHYSICIAN: Samson Ragsdale [address] [facility] [address] CHIEF COMPLAINT: Patient presents with: Consult: Colonoscopy HPI: Alejo is a 83 year old male referred for endoscopy. Alejo notes diarrhea x 6 months & decreased appetite. PCP Alejo denies abdominal pain.. Alejo notes diarrhea x 6 mos. Watery? +fluctuance Alejo denies constipation. Alejo notes a change in bowel habits. Alejo denies melena. Alejo denies bright red blood per rectum. Alejo notes hemorrhoids. Alejo notes heartburn- using Tums in excess. Alejo denies dysphagia. Alejo denies a history of ulcers/ peptic ulcer disease. +intermittent nausea Denies family history of colon issues. Alejo has a hx of CAD with stents from 2007. Last stress test 2022 EF of 53%. Alejo follows with [facility] had elective cath 06/2023 due to positive stress test. 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 Currently takes plavix. Follows with Dr. Petersen at [facility]. Last OV 07/2023 Alejo has a hx of Alzheimers dementia Alejo has undergone prior endoscopy. Last EGD &colonoscopy 04/2017 with At [facility] for anemia Impression: -Findings suggest upper [...] - Uncontrolled, E11.65 Insulin: Yes CRANBERRY Insulin Huntley, Disposable, (BD ULTRA-FINE BENNY PEN NEEDLE) 32 [...] [Rosuvastatin Calcium], Glucosamine, Motrin [Ibuprofen], Pravastatin, and Keugzsz-Aek-Mvd Reductase Inhibitors PAST MEDICAL HISTORY PAST MEDICAL [...] Xience stent to L circumflex EGD 04/26/2017 [facility] Dr. Nolan Triana EGD TRANSORAL BIOPSY SINGLE/MULTIPLE 07/10/07 PAST SURGICAL HISTORY OF 01/26/08 stent placement ramus and prox ramus PAST SURGICAL HISTORY OF heart stents PROSTATECTOMY PERINEAL RADICAL 2000 Prostatectomy, radical- Dr. 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 Yousif Triana; next screening colonoscopy in 10yrs, [facility] UNLISTED DIAGNOSTIC GASTROENTEROLOGY PROCEDURE 06/06/2018 FAMILY HISTORY [...] failure to complete the endoscopy and perforation. Alejo had the opportunity to ask questions concerning the planned endoscopy. My staff has also explained the procedure to the patient in understandable terms and has given the patient printed material concerning the procedure. Alejo freely consents to surgery. I plan to [...] and all questions were answered. MAC anesthesia. Alejo was counseled that if there are changes [...] edited and updated as necessary. Cristela Andersen APRN.KEELER POLYGRAPH OPERATOR documented in this encounterK[facility]10-09-2024 Instructions* Patient Instructions* Eli Lauren APRN.JAIRON - 05/09/2024 1:53 PM EDT Images from the original note were not included. [facility] PATIENT PREOPERATIVE INSTRUCTIONS Malu Mendoza MD has scheduled you for your procedure at this surgery center: [facility]: [phone] -- [address] [facility] [address]. Please read below carefully for your personalized [...] diagnostic (BLOOD GLUCOSE TEST) test strip Insulin Huntley, Disposable, (BD ULTRA-FINE BENNY PEN NEEDLE) 32 [...] Procedures: - YOU MUST HAVE A RESPONSIBLE LINTING MACHINE OPERATOR TAKE YOU HOME. A HOSIERY KNITTER OR PLC CONTROLS ENGINEER CANNOT BE MADE A RESPONSIBLE LINTING MACHINE OPERATOR. - We recommend that a responsible person [...] Advance Directive, please fax a copy to [phone] or email to for it to be added to your chart. If you do not have an Advance Directive, you can find the appropriate form and more information at [email or web address]. We recommend that youcomplete the Advance Directive form found on the website and bring it with you the day of your surgery. It can be witnessed and scanned into your chart that day. Eli Lauren APRN.CNP documented in this encounterK[facility]10-[facility]-2024 History and physical note * Eli Lauren APRN.CNP - 05/09/2024 1:46 PM EDT Images from the original note were not included. [place] [facility] HISTORY [...] aneurysm measuring 4.3cm at mid. Atherosclerosis 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 (HCC) Assessment: s/p CABG 1994 and then followed a stent 2007, daily Plavix, received to hold Plavix 5 days and replace with Aspirin 81mg. [facility]. Last OV scanned into epic2023 and AC instructions and clearance scanned into [employer] as well 04/16/2024 Complete atrioventricular block (HCC) Assessment: per PCP note 09/2023 this is stable, but no mention in production intern notes of this. Pt has no h/o [...] have a large neck STOP-Bang Score: 3 [id number] Score: Age: >=75 Sex: male CHF history: No Hypertension history: Yes Stroke/TIA/thromboembolism history: No Vascular disease history: Yes Diabetes history: Yes [id number] Score: 5 ARISCAT Score: Age: >80 Preoperative [...] placed in this encounter. REASON FOR VISIT: Alejo Gage is a 83 year old male [...] history exists. CHIEF COMPLAINT: Pre-op exam HPI: Alejo Gage is a 83 year old seen for PAC due to scheduled above surgery because of diarrhea/decreased appetite. , Dr. Lillian Andersen HPI: Alejo is a 83 year old male referred for endoscopy. Alejo notes diarrhea x 6 months & decreased appetite. PCP Alejo denies abdominal pain.. Alejo notes diarrhea x 6 mos. Watery? +fluctuance Alejo denies constipation. Alejo notes a change in bowel habits. Alejo denies melena. Alejo denies bright red blood per rectum. Alejo notes hemorrhoids. Alejo notes heartburn- using Tums in excess. Alejo denies dysphagia. Alejo denies a history of ulcers/ peptic ulcer disease. +intermittent nausea Denies family history of colon issues. Alejo has a hx of CAD with stents from 2007. Last stress test 2022 EF of 53%. Alejo follows with [facility] had elective cath 06/2023 due to positive stress test. 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 Currently takes plavix. Follows with Dr. Petersen at [facility]. Last OV 07/2023 Alejo has a hx of Alzheimers dementia Alejo has undergone prior endoscopy. Last EGD &colonoscopy 04/2017 with At [facility] for anemia Impression: -Findings suggest upper gastritis clopidogrel and aspirin and potassium supplements -Left-sided diverticulosis but no evidence of diverticular bleed -Internal hemorrhoid no evidence of bleeding Small Bowel Capsule 06/2018 IMPRESSION: Duodenal and ileal bleeding REVIEW OF SYSTEMS: General: No weight loss, malaise or fevers. Neurological: No history of TIA's, stroke, INSTRUMENTATION AND CONTROLS TECHNICIAN tumor, impaired sensorium, hemiplegia, paraplegia orquadraplegia. No neurological symptoms or problems. Respiratory: +former smoker. No history of current cough or dyspnea, or pneumonia in the past 6 weeks. No history of respiratory/pulmonary symptoms or problems. Cardiovascular: Positive for: abdominal aortic aneurysm (under surveillance), anticoagulation therapy, CAD, hyperlipidemia (statin intolerant), hypertension and open heart surgery Patient's last office visit with production intern, [facility], The following tests and/or procedures were performed: cardiac stents. Negative for: AICD/PPM, angina, arrhythmia, atrial fibrillation, chest pain, CHF, congenital heart defect, DVT/PE, recent [place], murmur/valvular heart disease, PTCA and valve surgery. [...] without mention of hemorrhage 04/26/2017 EGD by [facility] Advance care planning 03/24/2022 angelo Matamoros can help with medical decision making AMI (acute myocardial infarction) (HCC) 07/03/2013 Carotid atherosclerosis 05/2014 CKD stage G3b/A2, GFR 30-44 and albumin creatinine ratio 30-299 mg/g (HCC) AVOID NEPHROTOXIC MEDICATIONS Diabetes mellitus type 2, uncontrolled, without complications Diaphragmatic hernia without mention of obstruction or gangrene Diverticulosis of colon (without mention of hemorrhage) 04/26/2017 colonoscopy by [facility] Esophagitis Generalized osteoarthrosis, unspecified site Internal hemorrhoid 04/26/2017 colonoscopy by [facility] Iron deficiency anemia Malignant neoplasm of prostate [...] Xience stent to L circumflex EGD 04/26/2017 [facility] Dr. Nolan Triana EGD TRANSORAL BIOPSY SINGLE/MULTIPLE 07/10/07 PAST SURGICAL HISTORY OF 01/26/08 stent placement ramus and prox ramus PAST SURGICAL HISTORY OF heart stents PROSTATECTOMY PERINEAL RADICAL 2000 Prostatectomy, radical- Dr. 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 Yousif Triana; next screening colonoscopy in 10yrs, [facility] UNLISTED DIAGNOSTIC GASTROENTEROLOGY PROCEDURE 06/06/2018 FAMILY HISTORY [...] Uncontrolled, E11.65 Insulin: Yes Taking Yes Insulin Huntley, Disposable, (BD ULTRA-FINE BENNY PEN NEEDLE) 32 [...] Rash Pravastatin Other: See Comments muscle aches Htzwplq-Pmq-Nzb Red* Other: See Comments myalgia Objective PHYSICAL [...] 8760 hour(s)). Recent Results (from the past 54756 hour(s)) ECHO Collection Time: 03/25/23 1:42 PM [...] instructions and voices comprehension and compliance. SIGNATURE: Eli Lauren APRN.CNP PATIENT NAME: Alejo Gage DATE: May 09, 2024 TIME: 1:46 PM PAGER/CONTACT #: [facility]10-09-2024 History and physical note* Eli Lauren APRN.CNP - 05/09/2024 1:46 PM EDT [...] aneurysm measuring 4.3cm at mid. Atherosclerosis 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 (HCC) Assessment: s/p CABG 1994 and then followed a stent 2007, daily Plavix, received to hold Plavix 5 days and replace with Aspirin 81mg. [facility]. Last OV scanned into epic2023 and AC instructions and clearance scanned into epic as well 04/16/2024 Complete atrioventricular block (HCC) Assessment: per PCP note 09/2023 this is stable, but no mention in production intern notes of this. Pt has no h/o [...] have a large neck STOP-Bang Score: 3 [id number] Score: Age: >=75 Sex: male CHF history: No Hypertension history: Yes Stroke/TIA/thromboembolism history: No Vascular disease history: Yes Diabetes history: Yes [id number] Score: 5 ARISCAT Score: Age: >80 Preoperative [...] placed in this encounter. REASON FOR VISIT: Alejo Gage is a 83 year old male [...] history exists. CHIEF COMPLAINT: Pre-op exam HPI: Alejo Gage is a 83 year old seen for PAC due to scheduled above surgery because of diarrhea/decreased appetite. , Dr. Lillian Andersen HPI: Alejo is a 83 year old male referred for endoscopy. Alejo notes diarrhea x 6 months & decreased appetite. PCP Alejo denies abdominal pain.. Alejo notes diarrhea x 6 mos. Watery? +fluctuance Alejo denies constipation. Alejo notes a change in bowel habits. Alejo denies melena. Alejo denies bright red blood per rectum. Alejo notes hemorrhoids. Alejo notes heartburn- using Tums in excess. Alejo denies dysphagia. Alejo denies a history of ulcers/ peptic ulcer disease. +intermittent nausea Denies family history of colon issues. Alejo has a hx of CAD with stents from 2007. Last stress test 2022 EF of 53%. Alejo follows with [facility] had elective cath 06/2023 due to positive stress test. 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 Currently takes plavix. Follows with Dr. Petersen at [facility]. Last OV 07/2023 Alejo has a hx of Alzheimers dementia Alejo has undergone prior endoscopy. Last EGD &colonoscopy 04/2017 with At [facility] for anemia Impression: -Findings suggest upper gastritis clopidogrel and aspirin and potassium supplements -Left-sided diverticulosis but no evidence of diverticular bleed -Internal hemorrhoid no evidence of bleeding Small Bowel Capsule 06/2018 IMPRESSION: Duodenal and ileal bleeding REVIEW OF SYSTEMS: General: No weight loss, malaise or fevers. Neurological: No history of TIA's, stroke, INSTRUMENTATION AND CONTROLS TECHNICIAN tumor, impaired sensorium, hemiplegia, paraplegia orquadraplegia. No neurological symptoms or problems. Respiratory: +former smoker. No history of current cough or dyspnea, or pneumonia in the past 6 weeks. No history of respiratory/pulmonary symptoms or problems. Cardiovascular: Positive for: abdominal aortic aneurysm (under surveillance), anticoagulation therapy, CAD, hyperlipidemia (statin intolerant), hypertension and open heart surgery Patient's last office visit with production intern, [facility], The following tests and/or procedures were performed: cardiac stents. Negative for: AICD/PPM, angina, arrhythmia, atrial fibrillation, chest pain, CHF, congenital heart defect, DVT/PE, recent [place], murmur/valvular heart disease, PTCA and valve surgery. [...] (without mention of hemorrhage) 04/26/2017 colonoscopy by [facility] Esophagitis Generalized osteoarthrosis, unspecified site Internal hemorrhoid [...] Xience stent to L circumflex EGD 04/26/2017 [facility] Dr. Nolan Triana EGD TRANSORAL BIOPSY SINGLE/MULTIPLE 07/10/07 PAST SURGICAL HISTORY OF 01/26/08 stent placement ramus and prox ramus PAST SURGICAL HISTORY OF heart stents PROSTATECTOMY PERINEAL RADICAL 2000 Prostatectomy, radical- Dr. 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 Yousif Triana; next screening colonoscopy in 10yrs, [facility] UNLISTED DIAGNOSTIC GASTROENTEROLOGY PROCEDURE 06/06/2018 FAMILY [...] Uncontrolled, E11.65 Insulin: Yes Taking Yes Insulin Huntley, Disposable, (BD ULTRA-FINE BENNY PEN NEEDLE) 32 [...] Rash Pravastatin Other: See Comments muscle aches Qpfamlv-Ozm-Czp Red* Other: See Comments myalgia Objective PHYSICAL [...] 8760 hour(s)). Recent Results (from the past 71080 hour(s)) ECHO Collection Time: 03/25/23 1:42 PM [...] instructions and voices comprehension and compliance. SIGNATURE: Eli Lauren APRN.CNP PATIENT NAME: Alejo Gage DATE: May 09, 2024 TIME: 1:46 PM PAGER/CONTACT #: documented in this encounterKet[facility]09-27-2024 Telephone encounter Note * Telephone Encounter - Eli Khan LPN - 04/27/2024 2:08 PM EDT [...] Take 1 tablet by mouth once daily. Eli Khan LPN April 27, 2024 2:09 PM [facility]09-27-2024 Miscellaneous Notes* Telephone Encounter - Eli Khan LPN - 04/27/2024 2:08 PM EDT [...] Take 1 tablet by mouth once daily. Eli Khan LPN April 27, 2024 2:09 PM documented in this encounterKettering [facility]09-24-2024 Telephone encounter Note * Telephone Encounter - Jaja Marshall - 04/24/2024 8:19 AM EDT Cardiac clearance received. Patient cleared to proceed and should HOLD Plavix 7 days prior to scopes. Per Dr. Palomo Petersen recommends patient to remain on ASA 81 mg uninterrupted. See scanned doc (also attached to encounter) Jaja Marshall Spring Tacker [facility]09-24-2024 Miscellaneous Notes* Telephone Encounter - Jaja Marshall - 04/24/2024 8:19 AM EDT Cardiac clearance received. Patient cleared to proceed and should HOLD Plavix 7 days prior to scopes. Per Dr. Palomo Petersen recommends patient to remain on ASA 81 mg uninterrupted. See scanned doc (also attached to encounter) Jaja Marshall Spring Tacker * Telephone Encounter - Jaja Marshall - 04/16/2024 11:31 AM EDT Per Cristela Andersen patient to seek cardiac clearance prior to proceeding with scopes on 05/23/2024with Dr. Reji clinton [place] Patient follows [facility]. Clearance form faxed to their office at [phone] (see scanned doc for fax confirmation) Patient aware of all steps needed to be completed prior to proceeding and voiced understanding Jaja Marshall Spring Tacker documented in this encounterKet[facility]09-16-2024 Telephone encounter Note * Telephone Encounter - Jaja Marshall - 04/16/2024 11:31 AM EDT Per Cristela Andersen patient to seek cardiac clearance prior to proceeding with scopes on 05/23/2024with Dr. Reji clinton [place] Patient follows [facility]. Clearance form faxed to their office at [phone] (see scanned doc for fax confirmation) Patient aware of all steps needed to be completed prior to proceeding and voiced understanding Jaja Marshall Spring Tacker [facility]09-13-2024 Nurse Note* Sabina Cisneros RN - 04/13/2024 3:36 PM EDT Patient was given verbal and written instructions regarding bowel prep. He was instructed to call the office if he has any further questions. He verbalized understanding. [facility]09-13-20[facility] Nurse Note* Sabina Cisneros RN - 04/13/2024 3:36 PM EDT Patient was given verbal and written instructions regarding bowel prep. He was instructed to call the office if he has any further questions. He verbalized understanding. documented in this encounterKettering [facility]09-13-2024 History of Present illness Narrative* Cristela Andersen APRN.JAIRON - 04/13/2024 2:15 PM EDT HISTORY AND PHYSICAL Alejo Gage : 1940 REFERRING PHYSICIAN: Samson Ragsdale [address] [facility] [address] CHIEF COMPLAINT: Patient presents with: Consult: Colonoscopy HPI: Alejo is a 83 year old male referred for endoscopy. Alejo notes diarrhea x 6 months & decreased appetite. PCP Alejo denies abdominal pain.. Alejo notes diarrhea x 6 mos. Watery? +fluctuance Alejo denies constipation. Alejo notes a change in bowel habits. Alejo denies melena. Alejo denies bright red blood per rectum. Alejo notes hemorrhoids. Alejo notes heartburn- using Tums in excess. Alejo denies dysphagia. Alejo denies a history of ulcers/ peptic ulcer disease. +intermittent nausea Denies family history of colon issues. Alejo has a hx of CAD with stents from 2007. Last stress test 2022 EF of 53%. Alejo follows with [facility] had elective cath 06/2023 due to positive stress test. 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 Currently takes plavix. Follows with Dr. Petersen at [facility]. Last OV 07/2023 Alejo has a hx of Alzheimers dementia Alejo has undergone prior endoscopy. Last EGD &colonoscopy 04/2017 with At [facility] for anemia Impression: -Findings suggest upper [...] - Uncontrolled, E11.65 Insulin: Yes CRANBERRY Insulin Huntley, Disposable, (BD ULTRA-FINE BENNY PEN NEEDLE) 32 [...] [Rosuvastatin Calcium], Glucosamine, Motrin [Ibuprofen], Pravastatin, and Uswcigt-Ieo-Eid Reductase Inhibitors PAST MEDICAL HISTORY Diagnosis Date [...] Xience stent to L circumflex EGD 04/26/2017 [facility] Dr. Nolan Triana EGD TRANSORAL BIOPSY SINGLE/MULTIPLE 07/10/07 PAST SURGICAL HISTORY OF 01/26/08 stent placement ramus and prox ramus PAST SURGICAL HISTORY OF heart stents PROSTATECTOMY PERINEAL RADICAL 1999 Prostatectomy, radical- Dr. 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 Yousif Triana; next screening colonoscopy in 10yrs, [facility] UNLISTED DIAGNOSTIC GASTROENTEROLOGY PROCEDURE 06/06/2018 FAMILY HISTORY [...] entered by the nurse and reviewed by nj Nursing Notes: Sabina Cisneros RN 04/13/2024 3:37 [...] failure to complete the endoscopy and perforation. Alejo had the opportunity to ask questions concerning the planned endoscopy. My staff has also explained the procedure to the patient in understandable terms and has given the patient printed material concerning the procedure. Alejo freely consents to surgery. I plan to [...] and all questions were answered. MAC anesthesia. Alejo was counseled that if there are changes [...] edited and updated as necessary. Cristela Andersen APRN.KEELER POLYGRAPH OPERATOR documented in this encounterK[facility]09-[facility]24 Telephone encounter Note * Telephone Encounter - oLrraine Saravia RN - 04/12/2024 12:55 PM EDT Patient calling regarding lab result related question. Information provided. Lorraine Saravia RN [facility]09-12-2024 Miscellaneous Notes* Telephone Encounter - Lorraine Saravia RN - 04/12/2024 12:55 PM EDT Patient calling regarding lab result related question. Information provided. Lorraine Saravia RN documented in this encounterKet[facility]09-06-2024 Telephone encounter Note * Telephone Encounter - Eli Khan LPN - 04/06/2024 12:05 PM EDT [...] 2 DM - Controlled E11.9 Insulin: Yes Eli Khan LPN April 06, 2024 12:05 PM [facility]09-06-2024 Miscellaneous Notes* Telephone Encounter - Eli Khan LPN - 04/06/2024 12:05 PM EDT [...] 2 DM - Controlled E11.9 Insulin: Yes Eli Khan LPN April 06, 2024 12:05 PM documented in this encounterK[facility]09-03-2024 Telephone encounter Note * Telephone [...] Duncan LPN April 03, 2024 12:32 PM [facility]-03-2024 Miscellaneous Notes* Telephone Encounter - [...] 03, 2024 12:32 PM documented in this encounterKettering [facility]08-26-2024 History of Present illness Narrative* Samson Ragsdale, DO - 03/26/2024 3:02 PM EDT Patient presents with: 6 Month Exam: diarrhea continuous x 6 months HPI: Alejo Gage is a 83 year old male [...] time. He does not check BP's generally. Alejo likes to exercise by walking. PAST MEDICAL HISTORY 09/2015: Abdominal aneurysm without mention of rupture Comment: 4.15 cm 04/26/2017: Acute gastritis without mention of hemorrhage Comment: EGD by Cegiovanni 03/24/2022: Advance care planning Comment: [facility] can help with medical decision making 07/03/2013: AMI (acute myocardial infarction) ([facility]) 05/2014: Carotid atherosclerosis No date: CKD stage G3b/A2, GFR 30-44 and albumin creatinine ratio 30- 299 mg/g ([facility]) Comment: AVOID NEPHROTOXIC MEDICATIONS No date: Diabetes mellitus type 2, uncontrolled, without complications No date: Diaphragmatic hernia without mention of obstruction or gangrene 04/26/2017: Diverticulosis of colon (without mention of hemorrhage) Comment: colonoscopy by Cebul No date: Esophagitis No date: Generalized osteoarthrosis, unspecified site 04/26/2017: Internal hemorrhoid Comment[facility] No date: Iron deficiency anemia No date: Malignant neoplasm of prostate (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 Nolan Triana 07/10/07: EGD TRANSORAL BIOPSY [...] Yousif Triana; next screening colonoscopy in 10yrs, [facility] 06/06/2018: UNLISTED DIAGNOSTIC GASTROENTEROLOGY PROCEDURE Social History [...] Rash Pravastatin Other: See Comments muscle aches Gbkzhzm-Qem-Foi Red* Other: See Comments myalgia Current Meds: [...] ^Rfl: (Patient not taking:Reported on 05/31/2023) Insulin Huntley, Disposable, (BD ULTRA-FINE BENNY PEN NEEDLE) 32 [...] Recommend regular aerobic exercise 6. Atherosclerosis 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 (HCC) - ICD9: 414.01, 413.9, ICD10: I25.119 Stable 7. Abdominal aortic aneurysm (AAA) without rupture, unspecified part (HCC) - ICD9: 441.4, ICD10: I71.40 stable 8. [...] agreed with the plan. Samson Ragsdale DO [address] [place] [address] documented in this encounterKettering [facility]08-09-2024 Telephone encounter Note * Telephone Encounter - Caridad Delong MA - 03/09/2024 12:28 PM EDT Pt informed, verbalized understanding Caridad Delong MA [facility]08-09-2024 Miscellaneous Notes* Telephone Encounter - [...] 03/26 Caridad Delong MA documented in this encounterKettering [facility]08-09-2024 Telephone encounter Note * Telephone Encounter - Desirae Irving APRN.CNP - 03/09/2024 12:26 PM EDT Labs are placed. Need to be fasting for these. Thank you, Desirae Irving APRN.JAIRON [facility]08-09-2024 Telephone encounter Note* Telephone Encounter - Caridad Delong MA - 03/09/2024 12:17 PM EDT Pt requesting lab orders prior to upcoming appt with JG on 03/26 Caridad Delong MA [facility]06-28-2024 Telephone encounter Note* Telephone Encounter [...] Harper RN January 27, 2024 11:07 AM [facility]06-28-2024 Miscellaneous Notes* Telephone Encounter - [...] 27, 2024 11:07 AM documented in this encounterKettering [facility]04-16-2024 Telephone encounter Note * Telephone Encounter - Cleopatra Frey LPN - 11/15/2023 10:25 AM EDT Paperwork is still needing completed. Paperwork on providers desk. Cleopatra Frey LPN [facility] Work Phone: [phone] 118-724004-16-2024 Miscellaneous Notes* Telephone Encounter - Cleopatra Frey [...] forms found in scanning. documented in this encounterKettering Health [facility]04-15-2024 Telephone encounter Note * Telephone Encounter - Samson Ragsdale DO - 11/14/2023 5:11 PM EDT A paper was signed today Is more needed? Samson Ragsdale DO [facility]04-15-2024 Miscellaneous Notes* Telephone Encounter - Rama Gould LPN - 11/14/2023 2:40 PM EDT Letter created and signed. Given to Patient. * Telephone Encounter - Malu Galindo LPN - 11/10/2023 1:49 PM EDT Pt came into office states has spoke with you in the past about his skin lesions and needing a letter for a meeting with the [facility]. He has this meeting with them this next TuesdayNovember 15 early. Will be needing this letter from you at the latest by TuesdayNovember 14 so he can take it with him the next day.The letter must say how long these have been treated by you the name of the lesions on F letterhead. He gave this nurse an example of the letter he is presenting . I have placed thison your desk with a little paste it to see phone note. Pt asks to be called at this number [phone] when completed and he will car pick up driver. documented in this encounterKet[facility]03-25-2024 Miscellaneous Notes* Telephone Encounter - [...] you. Yeimy Arboleda LPN. documented in this encounterKettering [facility]03-08-2024 History of Present illness Narrative* Samson Ragsdale DO - 10/07/2023 5:03 PM EST Patient presents with: 6 Month Exam HPI: Alejo Gage is a 83 year old male [...] 100 lbs or greater repeatedly in the [place]. No recent injuries. Use of ice [...] the and he was exposed to [place] in [place]. Hx of prostate cancer Mr. [...] time. He does not check BP's generally. Alejo likes to exercise by walking when able [...] Xience stent to L circumflex EGD 04/26/2017 [facility] [address]. Nolan Triana EGD TRANSORAL BIOPSY SINGLE/MULTIPLE 07/10/07 PAST SURGICAL HISTORY OF 01/26/08 stent placement ramus and prox ramus PAST SURGICAL HISTORY OF heart stents PROSTATECTOMY PERINEAL RADICAL 1999 Prostatectomy, radical- Dr. 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 Yousif Triana; next screening colonoscopy in 10yrs, [facility] UNLISTED DIAGNOSTIC GASTROENTEROLOGY PROCEDURE 06/06/2018 Social History [...] Rash Pravastatin Other: See Comments muscle aches Xocrltb-Kzk-Kvy Red* Other: See Comments myalgia Current Meds: [...] ^Rfl: (Patient not taking:Reported on 05/31/2023) Insulin Huntley, Disposable, (BD ULTRA-FINE BENNY PEN NEEDLE) 32 [...] on low sodium diet 8. 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 Discussed risks, benefits, alternatives, and potential side effects of medications. Patient expressed understanding and agreed with the plan. Samson Ragsdale DO [address] [place] [address] documented in this encounterKettering [facility]03-05-2024 History of Present illness Narrative* Brittany West, - 10/04/2023 10:37 AM EST Images from the original note were not included. [facility] V[facility] Thor[facility] [place] DEPARTMENT OF VASCULAR SURGERY OUTPATIENT VISIT DATE [...] Xience stent to L circumflex EGD 04/26/2017 [facility] [address]. Nolan Triana EGD TRANSORAL BIOPSY SINGLE/MULTIPLE 07/10/07 PAST SURGICAL HISTORY OF 01/26/08 stent placement ramus and prox ramus PAST SURGICAL HISTORY OF heart stents PROSTATECTOMY PERINEAL RADICAL 1999 Prostatectomy, radical- Dr. 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 Yousif Triana; next screening colonoscopy in 10yrs, [facility] UNLISTED DIAGNOSTIC GASTROENTEROLOGY PROCEDURE 06/06/2018 SOCIAL HISTORY [...] Yes^Disp: 300 Strip^Rfl: 3 CRANBERRY^^Disp: ^Rfl: Insulin Huntley, Disposable, (BD ULTRA-FINE BENNY PEN NEEDLE) 32 [...] Rash Pravastatin Other: See Comments muscle aches Jkgqlsk-Jtt-Vzk Red* Other: See Comments myalgia PHYSICAL EXAM: [...] well SIGNATURE: Brittany West DO PATIENT NAME: Alejo Ggae DATE: October 04, 2023 TIME: 10:38 AM documented in this encounterKettering [facility]02-27-2024 Telephone encounter Note * Telephone Encounter - Rama Belcher LPN - 09/27/2023 3:14 PM EST Pt. here inquiring about forms for the [facility]. I told Pt. they were on your desk and needed to be filled out. Pt. thought he had brought more in than just what I found. No forms found in scanning. [facility]02-26-2024 Instructions* Patient Instructions* Samson Ragsdale DO - 09/26/2023 2:01 PM EST Start eating a banana daily Start a probiotic at bedtime documented in this encounterKettering Health [facility]12-05-2023 Miscellaneous Notes* Telephone Encounter - Eland Renetta Groves - 07/05/2023 4:51 PM EST Patient has been identified by name and date of : Yes Requested Prescriptions Pending Prescriptions Disp Refills isosorbide mononitrate ER (IMDUR) 30 mg 24 hr tablet 90 tablet 3 Sig: Take 1 tablet by mouth once daily. RX INSTRUCTIONS: Patient aware RX will be sent to pharmacy. No need to notify patient. Renetta Kirkpatrick Pss documented in this encounterKettering Health [facility]11-07-2023 Miscellaneous Notes* Telephone Encounter - Nav Allan LPN - 06/07/2023 12:59 PM EST Pt calling stating he brought in disability paperwork from the ID to see if Dr Ragsdale would/couldcomplete this [...] pt. Nav Allan LPN documented in this [facility]10-31-2023 History of Present illness Narrative* Brittany West DO - 05/31/2023 10:12 AM EDT Images from the original note were not included. Heart , Vascular and Thoracic [place] DEPARTMENT OF VASCULAR SURGERY OUTPATIENT VISIT DATE May 31, 2023 OUTPATIENT VISIT TYPE CONSULTATION SERVICE DATE: 05/31/2023 SERVICE TIME: 10:12 AM PRIMARY CARE PHYSICIAN: Samson Ragsdale DO REFERRING PROVIDER: Samson Ragsdale [address] [facility] [address] Consult requested for an opinion regarding the [...] Xience stent to L circumflex EGD 04/26/2017 [facility] [address]. Nolan Triana EGD TRANSORAL BIOPSY SINGLE/MULTIPLE 07/10/07 PAST SURGICAL HISTORY OF 01/26/08 stent placement ramus and prox ramus PAST SURGICAL HISTORY OF heart stents PROSTATECTOMY PERINEAL RADICAL 2000 Prostatectomy, radical- Dr. 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 Yousif Triana; next screening colonoscopy in 10yrs, [facility] UNLISTED DIAGNOSTIC GASTROENTEROLOGY PROCEDURE 06/06/2018 SOCIAL HISTORY: [...] (LIVER COMPLEX ORAL)^Take by mouth.^Disp: ^Rfl: Insulin Huntley, Disposable, (BD ULTRA-FINE BENNY PEN NEEDLE) 32 [...] Rash Pravastatin Other: See Comments muscle aches Jzuqxdh-Dzp-Oml Red* Other: See Comments myalgia REVIEW OF [...] year SIGNATURE: Brittany West DO PATIENT NAME: Alejo Gage DATE: May 31, 2023 TIME: 10:12 AM documented in this encounterKettering [facility]10-30-2023 Miscellaneous Notes* Telephone Encounter - Malu Galindo LPN - 05/30/2023 4:34 PM EDT Spoke with pt he states got these papers from [employer]. [place] in [place] was told he needs to bring theseto [...] any updates. Thank you. documented in this encounterKettering Health [facility]10-28-2023 Note Discharge Instructions Thank you for allowing [facility] to assist you with your healthcare needs. The following is importantdischarge information regarding your hospital visit. Your Care Team SAMSON RAGSDALE DO What to do next Scheduled Follow-Up Appointments App[facility] 07/05/2023 11:45 AM EST [facility] [place] [facility] Follow Up Appointments Follow Up with PALOMO PETERSEN MD When In 2 weeks Where: [address] [place] [address]- Follow Up with [facility] When Why: THE [facility] REH[facility] DEPARTMENT WILL CONTACT YOU TO SCHEDULE YOU FOR PHASE 2. WE LEFT YOU A BROCHURE WITH INFORMATION ABOUT CARD[facility]AC REHAB, IF YOU HAVE ANY QUESTIONS PLEASE CALL [phone] Where: [facility] [address] [place] [id number]- The Following Activity and Diet Have Been [...] Duration: 90 Days Refills: 4 Pickup at [facility] Changed amLODIPine (amLODIPine 5 mg oral tablet) 1 tab(s) by mouth Once a day Duration: 30 Days Pickup at [facility] Changed aspirin ([facility] Aspirin 81 mg oral tablet, (chewable)) 1 tab(s) by mouth Once a day with a meal Duration: 90 Days Pickup at [facility] Changed carvedilol (Coreg 6.25 mg oral tablet) 1 tab(s) by mouth Twice daily with meals Duration: 30 Days Pickup at [facility] Changed clopidogrel (Plavix 75 mg oral tablet) 1 tab(s) by mouth Once a day Duration: 90 Days Pickup at [facility] Changed losartan (losartan 25 mg oral tablet) 1 tab(s) by mouth Once a day Duration: 30 Days Pickup at [facility] Unchanged allopurinol (allopurinol 100 mg oral [...] Chest pain Unchanged omega-3 polyunsaturated fatty acids (Seneca-3 1000 mg oral capsule) by mouth Once a day Unchanged potassium chloride (potassium chloride 10 mEq oral capsule, extended release) 1 cap by mouth Every day take with food. Unchanged ubiquinone (Co Q-10 100 mg oral capsule) 1 cap by mouth Every day Pharmacy Information [facility]: [address] [place], [place] [id number] [phone] What How Much When Comments Stop Taking [...] time each day, with or without food. Diazke the oral suspension (liquid). Measure a dose [...] may report side effects to FDA at 8-730-WGW-0380. What other drugs will affect amlodipine? Sometimes it is not safe to use certain medicines at the same time. Some drugs can affect your blood levels of other drugs you use, which may increase side effects or make the medicines less effective. Other drugs may affect amlodipine, including prescription and yagv-tjf-tpuotdz medicines, vitamins,and herbal products. Tell your doctor [...] to ensure that the information provided by [employer]. ('L[employer]') is accurate, up-to-date, and complete, but no guarantee is made to that effect. Drug information contained herein may be time sensitive. [employer] information has been compiled for use by healthcare practitioners and consumers in the [place] and therefore [employer] does not warrant that uses outside of the [place] are appropriate, unless specifically indicated otherwise. [employer] drug information does not endorse drugs, diagnose patients or recommend therapy. [employer] drug information isan informational resource designed to [...] effective or appropriate for any given patient. [employer] does not assume any responsibility for any aspect of healthcare administered with the aid of information [employer] provides. The information contained herein is not intended to cover all possible uses, directions, precautions, warnings, drug interactions, allergic reactions, or adverse effects. If you have questions about the drugs you are taking, check with your doctor, nurse or pharmacist. Copyright 7290-2360 [employer]. Version: 16.. Revision Date: 12/09/2022. clopidogrel (kloe [...] may report side effects to FDA at 6-030-BMN-4207. What other drugs will affect clopidogrel? Sometimes it is not safe to use certain medications at the same time. Some drugs can affect your blood levels of other drugs you take, which may increase side effects or make the medications less effective. Tell your doctor about all your other medicines, especially: a stomach acid sap bw bi developer such as omeprazole, Nexium, or Prilosec; an antidepressant such as citalopram, fluoxetine, sertraline, Cymbalta, Effexor, Lexapro, Pristiq, or Prozac; rifampin; a blood thinner--warfarin, Coumadin, Jantoven; or NSAIDs (nonsteroidal anti-inflammatory drugs)--aspirin, ibuprofen (Advil, Motrin), naproxen (Aleve), celecoxib, diclofenac, indomethacin, meloxicam, and others. This list is not complete. Other drugs may affect clopidogrel, including prescription and vcue-urz-airgjrr medicines, vitamins, and herbal products. Not all [...] to ensure that the information provided by [employer]. ('[employer]') is accurate, up-to-date, and complete, but no guarantee is made to that effect. Drug information contained herein may be time sensitive. [employer] information has been compiled for use by healthcare practitioners and consumers in the [place] and therefore [employer] does not warrant that uses outside of the [place] are appropriate, unless specifically indicated otherwise. [employer] drug information does not endorse drugs, diagnose patients or recommend therapy. [employer] drug information isan informational resource designed to [...] effective or appropriate for any given patient. [employer] does not assume any responsibility for any aspect of healthcare administered with the aid of information [employer] provides. The information contained herein is not intended to cover all possible uses, directions, precautions, warnings, drug interactions, allergic reactions, or adverse effects. If you have questions about the drugs you are taking, check with your doctor, nurse or pharmacist. Copyright 7571-0563 [employer], [facility]. Version: 18.. Revision Date: 10/29/2020. carvedilol (ROGERIO j luis greco) Theresa Cardenas What is the most important [...] may report side effects to FDA at 8-258-FXF-8209. What other drugs will affect carvedilol? Sometimes it is not safe to use certain medications at the same time. Some drugs can affect your blood levels of other drugs you take, which may increase side effects or make the medications less effective. Other drugs may affect carvedilol, including prescription and yzgq-unf-ckmbqel medicines, vitamins,and herbal products. Tell your doctor [...] to ensure that the information provided by [employer]. ('[employer]') is accurate, up-to-date, and complete, but no guarantee is made to that effect. Drug information contained herein may be time sensitive. [employer] information has been compiled for use by healthcare practitioners and consumers in the [place] and therefore [employer] does not warrant that uses outside of the [place] are appropriate, unless specifically indicated otherwise. [employer] drug information does not endorse drugs, diagnose patients or recommend therapy. [employer] drug information isan informational resource designed to [...] effective or appropriate for any given patient. [employer] does not assume any responsibility for any aspect of healthcare administered with the aid of information [employer] provides. The information contained herein is not intended to cover all possible uses, directions, precautions, warnings, drug interactions, allergic reactions, or adverse effects. If you have questions about the drugs you are taking, check with your doctor, nurse or pharmacist. Copyright 1524-1738 [employer]. Version: 16.01. Revision Date: 11/23/2018. Education Materials Femoral Site [...] and water are not available, use hand broom handle dipper. ? Change your dressing as told by [...] help you relax (sedative). General instructions Take lzzr-yhu-evojfka and prescription medicines only as told by [...] 03/21/2015 Document Revised: 07/31/2018 Document Reviewed: 07/31/2018 [employer] Patient Education 2020 [employer]. Coronary Angioplasty, Care After This sheet gives [...] Follow these instructions at home: Medicines Take chrz-fif-tteuexi and prescription medicines only as told by [...] and water are not available, use hand broom handle dipper. ? Change your dressing as told by [...] 02/03/2006 Document Revised: 06/30/2018 Document Reviewed: 02/20/2017 [employer] Patient Education 2020 [employer]. Additional Information VACCINATE! IT SAVES LIVES! Members of the community who have not yet received the COVID-19 vaccine and would like to receive it can visit one of [facility] vaccine clinics. There are many vaccine clinic locations within the [facility]. For locations and available times, please visit [email or web address].[email or web address]/. It is important to note that some COVID mobile vaccine clinics are held outdoors and may be canceled in rainy or stormy conditions. To learn more about pediatric vaccinations (ages 5-11), we invite you to visit the [facility] webpage. https://www.[email or web address].org/pages/[email or web address]-Nugni-Szpplbqjfeg-Wcsfoguqqx-Fxlky-Ddd stions.htmlTo learn more about the COVID-19 vaccine, we invite you to visit the CDC website for a list of frequently asked questions.https://www.cdc.gov/coronavirus/2019-ncov/vaccines/faq.html [facility] Patient Portal Access Instructions: Stay connected with your healthcare team and access your personal medical information anytime with the [employer] Patient Portal. Please follow the directions below to create your [employer] account: 1.Access the email account you provided upon registration to the hospital/physician office.2.Look for an invitation email from [facility].3.Open the email and access the invitation link: AcceptInvitation to [employer].4.Fill in the required alvarenga to create your account. To access your account, visit TRAFI/Privacy NetworksOneChart. Click the blue button labeled Access Patient Portal and then log in with the username and password that you created in the steps above. You will be able to view your test results, lab results, a summary of your visits, upcoming appointments and more. There is also a convenient messaging option where you can send secure messages to your p rovider. In addition, you will have the ability to download any documents or summaries to your computer and/or send the information securely to a physician. Remember that your healthcare information is confidential, so carefully consider who you will allowto register on the [facility] for access to your information. You can also access the [facility] on the [employer] feng. Simply click on Patient Portal and then log into your account. If you would like to receive a full copy of your medical records, please contact the [facility] Medical Records Department by calling [phone], Tuesday through Tuesday between 8 a.m. and [...] Call your local pharmacy or go to [email or web address] to find one close to you.3.Make use of household items: Use cat litter or old coffee grounds to dispose medications if other options arenot available. Mix your drugs with these household products, seal them in an airtight container andthrow it into the garbage. Call [facility]: [phone] to be sure your drugs can be [...] been reviewed and explained to me and I,ALEJO GAGE understand my current condition and have read and understand these discharge instructions. I have received a written copy of the plan/instructions. If I have questions, I am aware that I should contact my doctor. 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 ?Change your dressing as told by your [...] help you relax (sedative). General instructions Take qhap-ajm-cptdana and prescription medicines only as told by [...] 03/21/2015 Document Revised: 07/31/2018 Document Reviewed: 07/31/2018 Enohm Patient Education 2020 [employer]. 05/28/2023 12:12:58 Coronary Angioplasty, Care After Coronary [...] Follow these instructions at home: Medicines Take dedy-ltu-aqqxkgo and prescription medicines only as told by [...] and water are not available, use hand broom handle dipper. ?Change your dressing as told by your [...] 02/03/2006 Document Revised: 06/30/2018 Document Reviewed: 02/20/2017 Enohm Patient Education 2020 [employer]. Follow Up Care 05/23/2023 14:14:05 With:PALOMO PETERSEN MD Address: [address] [facility] [address] [facility] [place] [address]- When:Within 2 Week(s) With:[facility] Address: [facility] [address] [place] [address]- When: Unknown Comments:THE CARD[facility] REHAB DEPARTMENT WILL CONTACT YOU TO SCHEDULE YOU FOR PHASE 2. WE LEFT YOU A BROCHURE WITH INFORMATION ABOUT [facility], IF YOU HAVE ANY QUESTIONS PLEASE CALL [phone] [facility] 10-28-2023 Discharge summary Date of Service 05/28/2023 Discharge Diagnosis 1.CAD 2.positive stress test [at [facility]] Patient presented for elective cardiac cath [...] hydration because of positive stress test at [facility]. Allergies Motrin (unknown) Naprosyn Consults No [...] pain. Refills: 3. omega-3 polyunsaturated fatty acids (Seneca-3 1000 mg oral capsule)by mouth once a [...] Up Follow Up with [facility] When Why: THE [facility] REHAB DEPARTMENT WILL CONTACT YOU TO SCHEDULE YOU FOR PHASE 2. WE LEFT YOU A BROCHURE WITH INFORMATION ABOUT [facility], IF YOU HAVE ANY QUESTIONS PLEASE CALL [phone] Where: [facility] [address] [place] [address]- Follow Up Appointments No qualifying data available. [...] PM Digitally Signed by GUILLERMO NUGENT MD [facility] [id number] Cardiology Progress note Date of Service 08/28/2022 [...] hydration because of positive stress test at [facility]. Objective Vitals and Measurements T: 36.8 [...] hrs post contrast 1 EA, Miscellaneous, Unscheduled bqehq-1-jrdf ethyl esters 1000 mg capsule 1,000 mg [...] Nursing Assessment/Plan 1.CAD 2.positive stress test [at [facility]] Patient presented for elective cardiac cath [...] PM Digitally Signed by GUILLERMO NUGENT MD [facility] [id number] Cardiology Progress note Subjective No acute overnight [...] hrs post contrast 1 EA, Miscellaneous, Unscheduled cnmfk-7-oslm ethyl esters 1000 mg capsule 1,000 mg [...] FLOR BOOGIE MD on 05/27/2023 03:03 PM [facility] [id number] Cardiology Progress note Subjective No acute overnight [...] hrs post contrast 1 EA, Miscellaneous, Unscheduled hvzqn-5-vyre ethyl esters 1000 mg capsule 1,000 mg [...] FLOR BOOGIE MD on 05/27/2023 03:03 PM [facility] [id number] NoteSINUS RHYTHM BORDERLINE T WAVE ABNORMALITIES Electronic Signature: GUILLERMO NUGENT MD 05/28/2023 14:06:54[facility] 10-27-2023 Note* Exam Date Time Procedure Performing Provider Status 05/27/23 8:18 AM Percut Transluminal Coronary Angioplasty Auth (Verified) [facility] 10-26-2023 Cardiology Progress note Date of [...] tablet 25 mg 1 tab(s), Oral, qDay enruf-2-kuvn ethyl esters 1000 mg capsule 1,000 mg [...] KATHY MIJARES MD on 05/26/2023 05:18 PM [facility] [id number] Cardiology Progress note Date of Service 05/26/2023 [...] tablet 25 mg 1 tab(s), Oral, qDay baqsg-3-sked ethyl esters 1000 mg capsule 1,000 mg [...] KATHY MIJARES MD on 05/26/2023 05:18 PM [facility] [id number] NoteSINUS RHYTHM BORDERLINE T WAVE ABNORMALITIES Electronic Signature: SILVANA TORRES MD 05/27/2023 09:28:13[facility] 10-25-2023 Note* Exam Date Time Procedure Performing Provider Status 05/25/23 2:46 PM Cardiac Catheterization -CV Auth (Verified) [facility] 10-25-2023 History and physical note Date [...] direct admit for IV hydration prior to [facility]. Patient is known to Dr. Petersen, has been complaining of a lot of shortness of breath, stress test done at [facility] revealed abnormal LV systolic function as [...] due to worsening BRAND, admitted for elective [facility] s/p IV hydration overnight. Noted to have abnormal stress test result with moderate sized kendra-infarct ischemia at [place] as per office notes. Plan for [facility] today, NPO for procedure. Resumed home Coreg, losartan, amlodipine at lower doses given soft BP readings overnight, can uptitrate as tolerated. Continue isosorbide mononitrate 30mgqdaily. Continue all other chronic home medications. Discussed with Dr. Acharya Problem List/Past Medical History Ongoing Acid reflux Arthritis Back pain CAD IN 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 Noted to have abnormal stress test result with moderate sized kendra-infarct ischemia at [place] as per office notes. Plan for [facility] today, NPO for procedure. Resumed home [...] Panel 05/19/23 * Complete Metabolic Panel 05/19/23 [facility] 10-25-2023 History and physical note Date [...] direct admit for IV hydration prior to [facility]. Patient is known to Dr. Petersen, has been complaining of a lot of shortness of breath, stress test done at [facility] revealed abnormal LV systolic function as [...] due to worsening BRAND, admitted for elective [facility] s/p IV hydration overnight. Noted to have abnormal stress test result with moderate sized kendra-infarct ischemia at [place] as per office notes. Plan for [facility] today, NPO for procedure. Resumed home Coreg, losartan, amlodipine at lower doses given soft BP readings overnight, can uptitrate as tolerated. Continue isosorbide mononitrate 30mgqdaily. Continue all other chronic home medications. Discussed with Dr. Acharya Problem List/Past Medical History Ongoing Acid reflux Arthritis Back pain CAD IN [place] CKD (chronic kidney disease), stage IV [...] mg = 1 tab(s), PRN, Sublingual, q5min Seneca-3 1000 mg oral capsule , Oral, qDay [...] tab(s), PRN, Oral, Daily Allergies Motrin (unknown) Cassierosyn Social History Smoking Status - 07/03/2013 Former [...] SUSANNE DENNIS MD on 05/25/2023 09:26 AM [facility] [id number] NoteSINUS RHYTHM PROBABLE LEFT ATRIAL ENLARGEMENT Electronic Signature: SILVANA TORRES MD 05/26/2023 21:16:31[facility] 10-11-2023 Miscellaneous Notes* Telephone Encounter - Camille Harper RN - 05/11/2023 10:40 AM EDT Spoke to Dr. Petersen's nurse. Stress test results faxed to [phone] per request along with most recent EKG and ECHO. Appointment with Dr. Petersen scheduled first available for May 19 at 215 pm in the [place] Office. Call placed to patient and notified of abnormal tress test results and follow up appointment with Dr. Petersen on May 19 at 215 pm. Patient verbalizes understanding and will follow up on the with Dr. Petersen. Camille Harper RN * Telephone Encounter - Stephanie Hayes MA - 05/11/2023 8:22 AM EDT Phone call to [facility] to facilitate appointment and obtain fax number tosend most recent stress test. LM for Dr. Petersen's nurse to contact office for the following: - Pt had abnormal lexiscan on 05/09/23 showing mild ischemia in the LCX and moderate fixed perfusiondefect is same territory. -Dr. Mandel would like patient to be seen in the next week by his production intern. - Please ask for fax number so that we can fax testing. Stephanie Hayes MA * Telephone Encounter - Dudley Mandel MD - 05/09/2023 2:09 PM EDT Called and spoke with Dr. Morgan regarding mild ischemia in LCX and miderate fixed perfusion defect in same territory. Recommended he be evaluated in the next week by his production intern. Looks like he was seen in September by Dr. Petersen. Please fax results to patient's production intern's office and assist with scheduling OV for [...] but needs follow up. His phone # [phone]. Malika Meier RN documented in this encounterK[facility]10-09-[facility] History of Present illness Narrative* [...] Olga Cobb RN Reversal agent used:None LOT [id number] EXP 08/01/26 IV SITE: IV palced by nuclear tecnologist POST EXAM PIV STATUS: Discontinued by Shovel Log Loader Operator PATIENT DISCHARGED TO: Nuclear Medicine Department for post stress imaging A Diagnostic radioactive procedure has taken place, with no further precautions necessary other than routine body substance precautions. More information regarding radiation safety can be found usingthis link: [email or web address] 20Diagnostic%20Nuclear%20Medicine%20Procedures.pdf SIGNATURE: Olga Cobb RN PATIENT NAME:Alejo Gage DATE: 05/09/23 TIME: 10:48 AM documented in this encounterKettering [facility]10-09-2023 History of Present illness Narrative* Ct [facility] RT(R) - 05/09/2023 8:30 AM EDT RADIOLOGY [...] Discontinued PROCEDURE TYPE: NM Stress: 8.4 mCi Ss32g-Qcwgrov was administered IV for Rest Imaging at 08:[address] [facility]. 26.5 mCi Gk16f-Bvxdmhp was administered IV for Stress Imaging at 09:[address] [facility]. ADMINISTRATION TIME: PATIENT DISCHARGED TO: Ambulatory patient, left NM department area. A Diagnostic radioactive procedure has taken place, with no further precautions necessary other than routine body substance precautions. More information regarding radiation safety can be found usingthis link: [email or web address] 20Diagnostic%20Nuclear%20Medicine%20Procedures.pdf SIGNATURE: RT Phill(R) PATIENT NAME: Alejo Gage DATE: May 09, 2023 TIME: 1:52 PM PAGER/CONTACT #: documented in this encounterKettering Health [facility]08-25-2023 Miscellaneous Notes* Telephone Encounter - Marina Connor Ma - 03/25/2023 12:59 PM EDT Notified. Marina Connor Ma * Telephone Encounter - Malu Galindo LPN - 03/24/2023 11:05 AM EDT Left message to return call. * Telephone Encounter - Samson Ragsdale DO - 03/24/2023 10:29 AM EDT Please inform patient that his CXR is normal Samson Ragsdale DO documented in this encounterKettering Health [facility]08-23-2023 History of Present illness Narrative* Samson Ragsdale DO - 03/23/2023 2:43 PM EDT Patient presents with: Recheck: 6 months HPI: Alejo Gage is a 82 year old male [...] 100 lbs or greater repeatedly in the [place]. No recent injuries. Use of ice [...] does check BP's generally and running 110-120/70-80s. Alejo gets minimal exercise. PAST MEDICAL HISTORY Diagnosis [...] unspecified site Internal hemorrhoid 04/26/2017 colonoscopy by [facility] Iron deficiency anemia Malignant neoplasm of prostate [...] Xience stent to L circumflex EGD 04/26/2017 [facility] [address]. Nolan Triana EGD TRANSORAL BIOPSY SINGLE/MULTIPLE 07/10/07 PAST SURGICAL HISTORY OF 01/26/08 stent placement ramus and prox ramus PAST SURGICAL HISTORY OF heart stents PROSTATECTOMY PERINEAL RADICAL 2000 Prostatectomy, radical- Dr. 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 Yousif Triana; next screening colonoscopy in 10yrs, [facility] UNLISTED DIAGNOSTIC GASTROENTEROLOGY PROCEDURE 06/06/2018 Social History [...] Rash Pravastatin Other: See Comments muscle aches Oatdvfo-Rtq-Zhm Red* Other: See Comments myalgia Current Meds: [...] (LIVER COMPLEX ORAL)^Take by mouth.^Disp: ^Rfl: Insulin Huntley, Disposable, (BD ULTRA-FINE BENNY PEN NEEDLE) 32 [...] he can then also follow up with [facility] as well. Will go to EMERGENCY DEPARTMENT [...] he can then also follow up with [facility] R[facility] as well. Will go to EMERGENCY DEPARTMENT [...] he can then also follow up with [facility] Raiser as well. Will go to EMERGENCY DEPARTMENT [...] disease, with long-term current use of insulin ([facility]) - ICD9: 250.40, 585.4, V58.67, ICD10: E11.22, [...] sodium diet 7. Malignant neoplasm of prostate ([facility]) - ICD9: 185, ICD10: C61 Hx of, PSA has been negative 8. Atherosclerosis 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 ([facility]) - ICD9: 414.01, 413.9, ICD10: I25.119 See [...] kidney disease) stage 4, GFR 15-29 ml/min ([facility]) - ICD9: 585.4, ICD10: N18.4 - eGFR: [...] with the plan. Samson Ragsdale DO [address] [place] [address] documented in this encounterKettering [facility]08-07-2023 Miscellaneous Notes* Telephone Encounter - Rama Belcher LPN - 03/07/2023 4:54 PM EDT Pt. informed. * Telephone Encounter - Desirae Irving APRN.CNP - 03/07/2023 3:58 PM EDT Lab orders are placed. Please make pt aware. Thank you, Desirae Irving APRN.KEELER POLYGRAPH OPERATOR * Telephone Encounter - Lorraine Szymanski - 03/07/2023 2:11 PM EDT Patient is requesting lab orders for upcoming appointment documented in this encounterKettering Health [facility]07-05-2023 Miscellaneous Notes* Telephone Encounter - Malu Galindo LPN - 02/02/2023 10:29 AM EDT Alphonso--09/22/22 Nov--03/23/23 Last refill--04/22/22 90 with 3 refills Last labs--09/13/22 * Telephone Encounter - Stephania Groves - 02/02/2023 9:44 AM EDT Patient has [...] advise. Stephania Alan Pss documented in this encounterKettering Health [facility]05-02-2023 History of Present illness Narrative* Tonny Nieves, MICHI.KEELER POLYGRAPH OPERATOR - 11/30/2022 12:36 PM EDT Subjective HPI HPI Alejo Gage is a 82 year old male [...] Xience stent to L circumflex EGD 04/26/2017 [facility] Dr. Nolan Triana EGD TRANSORAL BIOPSY SINGLE/MULTIPLE 07/10/07 PAST SURGICAL HISTORY OF 01/26/08 stent placement ramus and prox ramus PAST SURGICAL HISTORY OF heart stents PROSTATECTOMY PERINEAL RADICAL 2000 Prostatectomy, radical- Dr. 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 Yousif Triana; next screening colonoscopy in 10yrs, [facility] UNLISTED DIAGNOSTIC GASTROENTEROLOGY PROCEDURE 06/06/2018 ALLERGIES Atorvastatin, Crestor [Rosuvastatin Calcium], Glucosamine, Motrin [Ibuprofen], Pravastatin, and Rcmqpzq-Usc-Bnw Reductase Inhibitors MEDICATIONS insulin glargine (BASAGLAR KWIKPEN [...] (LIVER COMPLEX ORAL) Take by mouth. Insulin Huntley, Disposable, (BD ULTRA-FINE BENNY PEN NEEDLE) 32 [...] TABLET Tonny Nieves APRN.JAIRON documented in this encounterKet[facility]03-29-2023 Miscellaneous Notes* Telephone Encounter - [...] you. Lorraine Saravia RN documented in this encounterKettering [facility]03-11-2023 Miscellaneous Notes* Telephone Encounter - [...] in diameter of aneurysm. documented in this encounterKettering Health [facility]02-24-2023 Miscellaneous Notes* Telephone Encounter - [...] of Last Labs: 09/13/2022 documented in this encounterKettering Health [facility]02-23-2023 History of Present illness Narrative* Samson Ragsdale DO - 09/23/2022 11:19 AM EST Patient presents with: F/U 3 Month HPI: Alejo Gage is a 82 year old male who presents to the office today for review of health conditions. Concerns today: CKD stage 3-4, has seen Dr. Quinteros Emergency Medical Dispatcher in the last 1-2 years. Was told [...] was within the past 12 months Mr. Ggae reports history of hyperlipidemia. Current therapy includes [...] time. He does not check BP's generally. Alejo gets sporadic irregular exercise. 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 09/2015 4.15 cm Acute gastritis without mention of hemorrhage 04/26/2017 EGD by [facility] Advance care planning 03/24/2022 [place] can help with medical decision making AMI (acute myocardial infarction) (HCC) 07/03/2013 Carotid atherosclerosis 05/2014 CKD stage G3b/A2, GFR 30-44 and albumin creatinine ratio 30-299 mg/g (HCC) AVOID NEPHROTOXIC MEDICATIONS Diabetes mellitus type 2, uncontrolled, without complications Diaphragmatic hernia without mention of obstruction or gangrene Diverticulosis of colon (without mention of hemorrhage) 04/26/2017 colonoscopy by [facility] Esophagitis Generalized osteoarthrosis, unspecified site Internal hemorrhoid 04/26/2017 colonoscopy by [facility] Iron deficiency anemia Malignant neoplasm of prostate [...] Xience stent to L circumflex EGD 04/26/2017 [facility] Dr. Nolan Triana EGD TRANSORAL BIOPSY SINGLE/MULTIPLE 07/10/07 PAST SURGICAL HISTORY OF 01/26/08 stent placement ramus and prox ramus PAST SURGICAL HISTORY OF heart stents PROSTATECTOMY PERINEAL RADICAL 2000 Prostatectomy, radical- Dr. 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 Yousif Triana; next screening colonoscopy in 10yrs, [facility] UNLISTED DIAGNOSTIC GASTROENTEROLOGY PROCEDURE 06/06/2018 Social History [...] Rash Pravastatin Other: See Comments muscle aches Sdzhflm-Roj-Tbp Red* Other: See Comments myalgia Current Meds: [...] (LIVER COMPLEX ORAL) Take by mouth. Insulin Huntley, Disposable, (BD ULTRA-FINE BENNY PEN NEEDLE) 32 [...] ICD10: I25.10, I25.83 Recheck US, f/u with Bee Raiser - US ABD AORTA COMPLETE VAS [facility] - US CAROTID ARTERIES [facility] 7. Stenosis of left carotid artery - ICD9: 433.10, ICD10: I65.22 Recheck US, f/u with specialist - US CAROTID ARTERIES [facility] 8. CKD (chronic kidney disease) stage 4, GFR 15-29 ml/min ([facility]) - ICD9: 585.4, ICD10: N18.4 - eGFR: [...] with more than 50% of the total dwil-ya-xgmn time of the visit in counseling / coordination of care. To ER if develops chest pain, shortness of breath, or severe worsening of symptoms. Discussed risks, benefits, alternatives, and potential side effects of medications. Patient expressed understanding and agreed with the plan. Samson Ragsdale DO [address] [place] [address] documented in this encounterKettering Health [facility]01-06-2023 Miscellaneous Notes* Telephone Encounter - [...] diagnoses. Camille Harper RN documented in this encounterKettering Health [facility]12-28-2022 History of Present illness Narrative* Jocelin Lange PA-C - 07/28/2022 12:53 PM EST This note was created using Hibern[employer]riter. Subjective Alejo Gage is a 82 year old male. [...] has tried plain Mucinex and Mucinex sinus raht-hai-orwgzdo. Review of Systems Constitutional: Negative for fever. HENT: Positive for congestion and postnasal drip. Respiratory: Positive for cough and shortness of breath. Negative for wheezing. Cardiovascular: Negative. Gastrointestinal: Negative. Genitourinary: Negative. Musculoskeletal: Negative. All other systems reviewed and are negative. 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 09/2015 4.15 cm Acute gastritis without mention of hemorrhage 04/26/2017 EGD by [facility] Advance care planning 03/24/2022 [place] can help with medical decision making AMI (acute myocardial infarction) (HCC) 07/03/2013 Carotid atherosclerosis 05/2014 CKD stage G3b/A2, GFR 30-44 and albumin creatinine ratio 30-299 mg/g ([facility]) AVOID NEPHROTOXIC MEDICATIONS Diabetes mellitus type 2, [...] (LIVER COMPLEX ORAL) Take by mouth. Insulin Huntley, Disposable, (BD ULTRA-FINE BENNY PEN NEEDLE) 32 [...] Xience stent to L circumflex EGD 04/26/2017 [facility] [address]. Nolan Triana EGD TRANSORAL BIOPSY SINGLE/MULTIPLE 07/10/07 PAST SURGICAL HISTORY OF 01/26/08 stent placement ramus and prox ramus PAST SURGICAL HISTORY OF heart stents PROSTATECTOMY PERINEAL RADICAL 1999 Prostatectomy, radical- Dr. 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 Yousif Triana; next screening colonoscopy in 10yrs, [facility] UNLISTED DIAGNOSTIC GASTROENTEROLOGY PROCEDURE 06/06/2018 FAMILY HISTORY [...] LIQUID Jocelin Lange PA-C documented in this encounterKettering [facility]11-10-2022 Miscellaneous Notes* Telephone Encounter - Jose Noel RN - 06/10/2022 12:40 PM EST [...] BP: 03/23/2022 110/70 Please advise. Thank you. Jose Noel RN documented in this encounterKettering Health [facility]09-22-2022 Miscellaneous Notes* Telephone Encounter - Jose Noel RN - 04/22/2022 1:32 PM EDT [...] 16 09/09/2021 15 Please advise. Thank you. Jose Noel RN [facility] Instructions* Patient Instructions* Samson Ragsdale DO - 03/23/2022 3:16 PM EDT Increase dose of amlodipine to 10 mg in the evening for blood pressure. documented in this encounter[facility]08[facility] History of Present illness Narrative* Samson Ragsdale, DO - 03/23/2022 3:06 PM EDT No chief complaint on file. HPI: Alejo Gage is a 81 year old male [...] with average BP's in the 110-140/80s range. Alejo gets minimal exercise. PAST MEDICAL HISTORY Diagnosis [...] Xience stent to L circumflex EGD 04/26/2017 [facility] Dr. Nolan Triana EGD TRANSORAL BIOPSY SINGLE/MULTIPLE 07/10/07 PAST SURGICAL HISTORY OF 01/26/08 stent placement ramus and prox ramus PAST SURGICAL HISTORY OF heart stents PROSTATECTOMY PERINEAL RADICAL 1999 Prostatectomy, radical- Dr. 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 Yousif Triana; next screening colonoscopy in 10yrs, [facility] UNLISTED DIAGNOSTIC GASTROENTEROLOGY PROCEDURE 06/06/2018 Social History [...] Rash Pravastatin Other: See Comments muscle aches Bqbhlaf-Ave-Pex Red* Other: See Comments myalgia Current Meds: [...] (LIVER COMPLEX ORAL) Take by mouth. Insulin [place], Disposable, (BD ULTRA-FINE BENNY PEN NEEDLE) 32 [...] complication, without long-term current use of insulin ([facility]) - ICD9: 250.00, ICD10: E11.9 (primary diagnosis) [...] kidney disease) stage 4, GFR 15-29 ml/min ([facility]) - ICD9: 585.4, ICD10: N18.4 - f/u with Emergency Medical Dispatcher, hx of IV dye years ago with [...] D50.8 Resolved/improved with oral iron intake. Samson Ragsdale, DO To ER if develops chest pain, shortness of breath, or severe worsening of symptoms. Discussed risks, benefits, alternatives, and potential side effects of medications. Patient expressed understanding and agreed with the plan. Samson Ragsdale DO [address] [place] [address] documented in this encounterK[facility]06-15-[facility]22 Miscellaneous Notes* Telephone Encounter - [...] you. Camille Harper RN documented in this encounterK[facility]05-06-2022 Miscellaneous Notes* Telephone Encounter - [...] Lore Saenz APRN.JAIRON * Telephone Encounter - Eli Khan LPN - 12/04/2021 12:44 PM EDT Patient calling, states that his BP seems to be running too high. Over the last week it has been ranging from 144-161/70-81. Patient states that it was high when he was here last and is asking if he needs to do anything different. States that he has an appt on 12/15 with PCP. documented in this encounterK[facility]02-18-[facility]21 History of Present illness Narrative* Abiola Hall Tech (Rt) - 09/18/2020 3:00 PM EST Radiology Service Progress Note PATIENT NAME: Alejo Gage DATE OF SERVICE: September 18, 2020 [...] 18, 2020 3:04 PM documented in this encounterK[facility]11-09-2020 History of Present illness Narrative* Suzette Triplett (Rt), Tech - 06/09/2020 3:10 PM EST Radiology Service Progress Note PATIENT NAME: Alejo Gage DATE OF SERVICE: June 09, 2020 [...] 09, 2020 3:33 PM documented in this encounterK[facility]11-09-2020 History of Past illness Narrative* [...] of this encounter (statuses as of 09/23/2022) [facility] Narrative* [...] of this encounter (statuses as of 09/24/2022) [facility] Narrative* [...] of this encounter (statuses as of 10/09/2022) [facility] Narrative* Problem Noted Date Resolved Date Stage 3b chronic kidney disease 06/09/2020 09/20/2022 Pain of left scapula 06/09/2020 09/20/2022 Acute gout of right foot 08/28/2019 023 Hypertension, essential 08/28/2019 06/05/20 Disorder of prostate 02/06/2019 06/05/2020 Essential hypertension [...] of this encounter (statuses as of 10/27/2022) [facility] illness Narrative* [...] of this encounter (statuses as of 11/30/2022) [facility] Narrative* [...] of this encounter (statuses as of 02/02/2023) [facility] illness Narrative* [...] of this encounter (statuses as of 03/08/2023) [facility] illness Narrative* [...] of this encounter (statuses as of 03/24/2023) [facility] Past illness Narrative* [...] Acute gastritis without mention of hemorrhage 07/10/20 06/05/2020 Unspecified constipation 05/11/200711/2019 Dyspepsia and other specifie d disorders of function of stomach 05/11/2007 06/05/2020 Unspecified cardiovascular disease 09/20/2022 Overview: CABG Abdominal aneurysm without mention of rupture 06/05/2020 documented as of this encounter (statuses as of 03/25/2023) [facility] of Past illness Narrative* [...] of this encounter (statuses as of 05/09/2023) [facility] Narrative* [...] of this encounter (statuses as of 05/16/2023) [facility] Narrative* [...] of this encounter (statuses as of 06/01/2023) [facility] Narrative* [...] of this encounter (statuses as of 06/05/2023) [facility] Narrative* [...] of this encounter (statuses as of 06/05/2023) [facility] Narrative* [...] of this encounter (statuses as of 06/21/2023) [facility] Narrative* [...] of this encounter (statuses as of 2023) [facility] Narrative* [...] of this encounter (statuses as of 07/21/2023) [facility] Narrative* [...] of this encounter (statuses as of 09/19/2023) [facility] Narrative* [...] of this encounter (statuses as of 10/07/2023) [facility] Narrative* [...] of this encounter (statuses as of 10/24/2023) [facility] Narrative* [...] of this encounter (statuses as of 11/15/2023) [facility] Narrative* [...] of this encounter (statuses as of 10/04/2023) [facility] Narrative* [...] of this encounter (statuses as of 12/04/2021) [facility] Narrative* Problem Noted Date Resolved Date Hypertension, essential 08/28/2019 06/05/20 20 Disorder of prostate 02/06/2019 06/05/2020 Essential hypertension 11/07/2018 11/05/202 0 Generalized abdominal pain 05/01/201806/05 Blood in [...] of this encounter (statuses as of 01/13/2022) [facility] Narrative* [...] of this encounter (statuses as of 03/25/2022) [facility] Narrative* [...] of this encounter (statuses as of 04/22/2022) [facility] Narrative* [...] of this encounter (statuses as of 06/10/2022) [facility] Narrative* [...] of this encounter (statuses as of 08/03/2022) [facility] Narrative* [...] of this encounter (statuses as of 08/06/2022) [facility] Diagnosis Controlled type 2 diabetes mellitus [...] iron deficiency anemia documented in this encounter [facility]* Diagnosis Gout of multiple sites, unspecified cause, unspecified chronicity documented in this encounter [facility]* Diagnosis CKD (chronic kidney disease) stage 4, GFR 15-29 ml/min (HCC) Chronic kidney disease, Stage IV (severe) Hypertensive heart disease without heart failure Unspecified hypertensive heart disease without heart failure [facility]* Diagnosis Bronchitis- Primary Bronchitis, not specified as acute or chronic [facility]* Diagnosis CKD (chronic kidney disease) stage [...] neoplasm of prostate [facility]* Diagnosis Controlled type 2 diabetes mellitus [...] arthropathy, multiple sites [facility]* Diagnosis 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, with long-term current use of insulin (HCC)- Primary [facility] encounter [facility]* Diagnosis Sinobronchitis- Primary Unspecified sinusitis (chronic) documented [facility] encounter [facility]* Diagnosis Gout of multiple sites, unspecified cause, unspecified chronicity [facility]* Diagnosis Essential hypertension, benign- Primary CKD (chronic kidney disease) stage 4, GFR 15-29 ml/min (HCC) Chronic kidney disease, Stage IV (severe) 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, with long-term current use of insulin ([facility]) documented in this encounter [facility]* Diagnosis SOB (shortness of [...] (HCC) Malignant neoplasm of prostate Atherosclerosis 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 (HCC) Other polyneuropathy Essential hypertension, benign Gout of multiple sites, unspecified cause, unspecified chronicity Arthritis, multiple joint involvement Unspecified arthropathy, multiple sites Vitamin D deficiency Unspecified vitamin D deficiency CKD (chronic kidney disease) stage 4, GFR 15-29 ml/min (HCC) Chronic kidney disease, Stage IV (severe) [facility]* Diagnosis Screening for ischemic heart disease- Primary documented [facility] encounter [facility]* Diagnosis SOB (shortness of breath) Shortness of breath Coronary artery 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 rich plaque Chest pain on breathing Painful respiration [facility] Diagnosis Bilateral carotid artery stenosis- Primary Occlusion and stenosis of carotid artery without mention of cerebral infarction Infrarenal abdominal aortic aneurysm (AAA) without rupture ([facility]) [facility]* Diagnosis Hypertensive heart disease without heart failure Unspecified hypertensive heart disease without heart failure [facility]* Diagnosis Type 2 diabetes mellitus with stage 4 chronic kidney disease, with long-term current use of insulin (HCC)- Primary Malignant neoplasm of prostate (HCC) Malignant neoplasm of prostate Essential hypertension, benign History of prostate cancer Personal history of malignant neoplasm of prostate documented [facility] encounter [facility]* Diagnosis CKD (chronic kidney disease) stage [...] current use of insulin (HCC) Atherosclerosis 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 (HCC) Coronary artery 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 rich plaque Other polyneuropathy Gout of multiple sites, unspecified cause, unspecified chronicity Arthritis, multiple joint involvement Unspecified arthropathy, multiple sites Tinnitus, bilateral Unspecified tinnitus Other specified hearing loss of both ears Actinic keratosis [facility]* Diagnosis 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, with long-term current use of insulin (HCC) [facility]* Diagnosis 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, with long-term current use of insulin (HCC)- Primary Essential hypertension, benign [facility]* Diagnosis Chronic diarrhea- Primary Diarrhea Generalized abdominal pain Abdominal pain, generalized Other polyneuropathy Hypertensive kidney disease with chronic kidney disease stage IV (HCC) Unspecified hypertensive kidney disease with chronic kidney disease stage I through stage IV, or unspecified Essential hypertension, benign Atherosclerosis 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 (HCC) Abdominal aortic aneurysm (AAA) without rupture, unspecified part (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, with long-term current use of insulin (HCC) Arthritis, multiple joint involvement Unspecified arthropathy, multiple sites Stage 3b chronic kidney disease (HCC) [facility] Diagnosis Gout of multiple sites, unspecified cause, unspecified chronicity [facility]* Diagnosis 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, with long-term current use of insulin ([facility]) [facility]* Diagnosis Gastroesophageal reflux disease without esophagitis- Primary Esophageal reflux Chronic diarrhea Diarrhea Generalized abdominal pain Abdominal pain, generalized [facility]* Diagnosis SOB (shortness of breath) Shortness of breath Coronary artery 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 rich plaque Chest pain on breathing Painful respiration 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 Bilateral chronic knee pain Pain in joint, lower leg [facility]* Diagnosis Hypertensive heart disease without heart failure Unspecified hypertensive heart disease without heart failure [facility]* Diagnosis Cough [facility]* Diagnosis Pain of left scapula Disorder of bone and cartilage, unspecified Neck pain of over 3 months duration [facility]* Diagnosis Cough documented in this encounter [facility]* Diagnosis Pre-operative examination- Primary Preoperative examination, unspecified Other polyneuropathy Abdominal aortic aneurysm (AAA) without rupture, unspecified part (HCC) Atherosclerosis 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 (HCC) Complete atrioventricular [...] (HCC) * Assessment & Plan Note - Eli Lauren APRN.CNP - 05/11/2024 10:24 AM EDT Associated Problem(s): Dementia in other diseases classified elsewhere, unspecified severity, with mood disturbance (HCC) Assessment: hx * Assessment & Plan Note - Eli Lauren APRN.CNP - 05/11/2024 10:23 AM EDT Associated Problem(s): Psoriasis Assessment: rx as needed * Assessment & Plan Note - Eli Lauren APRN.CNP - 05/11/2024 10:23 AM EDT Associated Problem(s): Gout of multiple sites Assessment: controlled on rx * Assessment & Plan Note - Eli Lauren APRN.CNP - 05/11/2024 10:22 AM EDT Associated Problem(s): History of prostate cancer Assessment: s/p prostatectomy * Assessment & Plan Note - Eli Lauren APRN.CNP - 05/11/2024 10:22 AM EDT Associated Problem(s): Iron deficiency anemia due to chronic blood loss Assessment: Hemoglobin (g/dL) Date Value 03/19/2024 12.5 09/09/2021 13.5 Hematocrit (%) Date Value 03/19/2024 39.3 09/09/2021 42.5 WBC (k/uL) Date Value 03/19/2024 10.63 09/09/2021 9.17 * Assessment & Plan Note - Eli Lauren APRN.CNP - 05/11/2024 10:22 AM EDT Associated Problem(s): Hypercalcemia Assessment: Calcium, Total Date Value Ref Range Status 03/19/2024 9.7 8.5 - 10.2 mg/dL Final * Assessment & Plan Note - Eli Lauren APRN.CNP - 05/11/2024 10:22 AM EDT Associated Problem(s): 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, with long-term current use of insulin (HCC) Assessment: IDDM Hemoglobin A1C (%) Date Value 03/19/2024 6.0 09/09/2021 6.1 * Assessment & Plan Note - Eli Lauren APRN.CNP - 05/11/2024 10:21 AM EDT Associated Problem(s): Diaphragmatic hernia Assessment: hx * Assessment & Plan Note - Eli Lauren APRN.CNP - 05/11/2024 10:19 AM EDT Associated Problem(s): Carotid atherosclerosis, bilateral Assessment: s/p right carotid endarterectomy, following vascular, last carotid US 09/2023, left ICA 40-59%, right ICA 20-39% and right subclavian artery 50-99% stenosis * Assessment & Plan Note - Eli Lauren APRN.CNP - 05/11/2024 10:15 AM EDT Associated Problem(s): Pure hypercholesterolemia Assessment: c/w statin * Assessment & Plan Note - Eli Lauren APRN.CNP - 05/11/2024 10:15 AM EDT [...] Final * Assessment & Plan Note - Eli Lauren APRN.CNP - 05/11/2024 10:15 AM EDT Associated Problem(s): Essential hypertension, benign Assessment: controlled on rx Last 14 BP Last 14 Encounter BP Readings: Date: BP: 05/09/2024 128/68 04/13/2024 116/57 03/26/2024 120/60 10/04/2023 137/68 09/26/2023 138/64 05/31/2023 122/58 03/23/2023 112/70 11/30/2022 126/62 09/22/2022 110/60 07/28/2022 136/72 03/23/2022 110/70 11/25/2021 136/70 09/15/2021 138/70 06/16/2021 120/60 * Assessment & Plan Note - Eli Lauren APRN.CNP - 05/11/2024 10:15 AM EDT Associated Problem(s): Complete atrioventricular block (HCC) Assessment: per PCP note 09/2023 this is stable, but no mention in production intern notes of this. Pt has no h/o pacemaker/defibrillator. * Assessment & Plan Note - Eli Lauren APRN.CNP - 05/11/2024 10:13 AM EDT Associated Problem(s): Atherosclerosis 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 (HCC) Assessment: s/p CABG 1994 and then followed a stent 2007, daily Plavix, received to hold Plavix 5 days and replace with Aspirin 81mg. Following [facility] routinely. Last OV scanned into epic2023 and AC instructions and clearance scanned into [facility] as well 04/16/2024 * Assessment & Plan Note - Eli Lauren APRN.CNP - 05/11/2024 10:11 AM EDT Associated Problem(s): Abdominal aortic aneurysm (AAA) without rupture (HCC) Assessment: under surveillance 10/04/2023 abd aorta US AORTA Abdominal aortic aneurysm measuring 4.3cm at mid. * Assessment & Plan Note - Eli Lauren APRN.CNP - 05/11/2024 10:11 AM EDT Associated Problem(s): Peripheral neuropathy Assessment: 2/2 DM, no tx [facility]* Diagnosis Bilateral carotid artery stenosis- Primary Occlusion and stenosis of carotid artery without mention of cerebral infarction Infrarenal abdominal aortic aneurysm (AAA) without rupture (HCC) documented in this encounter [facility] note* Diagnosis Pre-operative examination- Primary Preoperative examination, unspecified Other polyneuropathy Abdominal aortic aneurysm (AAA) without rupture, unspecified part (HCC) Atherosclerosis 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 (HCC) Complete atrioventricular [...] esophagitis Esophageal reflux documented in this encounter [facility] note* Diagnosis Pre-operative examination- Primary Preoperative examination, unspecified Other polyneuropathy Abdominal aortic aneurysm (AAA) without rupture, unspecified part (HCC) Atherosclerosis 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 (HCC) Complete atrioventricular [...] gastroenteritis and colitis documented in this encounter [facility] note* Diagnosis Pre-operative examination- Primary Preoperative examination, unspecified Other polyneuropathy Abdominal aortic aneurysm (AAA) without rupture, unspecified part (HCC) Atherosclerosis 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 (HCC) Complete atrioventricular [...] gastroenteritis and colitis documented in this encounter [facility] note* Diagnosis Pre-operative examination- Primary Preoperative examination, unspecified Other polyneuropathy Abdominal aortic aneurysm (AAA) without rupture, unspecified part (HCC) Atherosclerosis 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 (HCC) Complete atrioventricular [...] neoplasm of prostate documented in this encounter [facility] note* Diagnosis Pre-operative examination- Primary Preoperative examination, unspecified Other polyneuropathy Abdominal aortic aneurysm (AAA) without rupture, unspecified part (HCC) Atherosclerosis 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 (HCC) Complete atrioventricular [...] sites, unspecified cause, unspecified chronicity Atherosclerosis 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 (HCC) Pure hypercholesterolemia Vitamin D deficiency Unspecified vitamin D deficiency documented in this encounter [facility] note* Diagnosis Pre-operative examination- Primary Preoperative examination, unspecified Other polyneuropathy Abdominal aortic aneurysm (AAA) without rupture, unspecified part Atherosclerosis 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 Complete atrioventricular block [...] of insulin (HCC) [facility] Diagnosis Pre-operative examination- Primary Preoperative examination, unspecified Other polyneuropathy Abdominal aortic aneurysm (AAA) without rupture, unspecified part Atherosclerosis 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 Complete atrioventricular block [...] Upper back pain [facility] Diagnosis Pre-operative examination- Primary Preoperative examination, unspecified Other polyneuropathy Abdominal aortic aneurysm (AAA) without rupture, unspecified part Atherosclerosis 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 Complete atrioventricular block [...] sinusitis Acute cough [facility]* Diagnosis Pre-operative examination- Primary Preoperative examination, unspecified Other polyneuropathy Abdominal aortic aneurysm (AAA) without rupture, unspecified part Atherosclerosis 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 Complete atrioventricular block [...] (HCC) Acute cough [facility] noteNo assessment information availableWEast [facility] Work Phone: Evaluation note* Diagnosis Onset [...] 1:22pm Hypertension chronic January 15 025 1:22pm [facility] Work Phone: Evaluation note* Diagnosis Pre-operative examination- Primary Preoperative examination, unspecified Other polyneuropathy Abdominal aortic aneurysm (AAA) without rupture, unspecified part Atherosclerosis 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 Complete atrioventricular block [...] breath)- Primary Shortness of breath Atherosclerosis 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 Hypertensive kidney disease with chronic kidney disease stage IV (HCC) Unspecified hypertensive kidney disease with chronic kidney disease stage I through stage IV, or unspecified Stented coronary artery Postsurgical percutaneous transluminal coronary angioplasty status Dysphagia, unspecified type Vision changes Unspecified visual disturbance [facility] Diagnosis Pre-operative examination- Primary Preoperative examination, unspecified Other polyneuropathy Abdominal aortic aneurysm (AAA) without rupture, unspecified part Atherosclerosis 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 Complete atrioventricular block [...] elsewhere, unspecified severity, with mood disturbance (HCC) Other symptoms and signs involving the nervous system- Primary Bilateral carotid artery stenosis Occlusion and stenosis of carotid artery without mention of cerebral infarction [facility] Diagnosis Pre-operative examination- Primary Preoperative examination, unspecified Other polyneuropathy Abdominal aortic aneurysm (AAA) without rupture, unspecified part Atherosclerosis 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 Complete atrioventricular block [...] elsewhere, unspecified severity, with mood disturbance (HCC) Other symptoms and signs involving the nervous system [facility] Diagnosis Pre-operative examination- Primary Preoperative examination, unspecified Other polyneuropathy Abdominal aortic aneurysm (AAA) without rupture, unspecified part Atherosclerosis 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 Complete atrioventricular block [...] elsewhere, unspecified severity, with mood disturbance (HCC) Cerebral microvascular disease- Primary Cerebrovascular disease, unspecified [facility] Diagnosis Pre-operative examination- Primary Preoperative examination, unspecified Other polyneuropathy Abdominal aortic aneurysm (AAA) without rupture, unspecified part Atherosclerosis 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 Complete atrioventricular block [...] elsewhere, unspecified severity, with mood disturbance (HCC) Weakness- Primary Other malaise and fatigue Cerebral microvascular disease Cerebrovascular disease, unspecified Myasthenia gravis (HCC) Myasthenia gravis without exacerbation Abnormal weight loss Loss of weight Double vision Diplopia Dysphagia, unspecified type [facility] Diagnosis Pre-operative examination- Primary Preoperative examination, unspecified Other polyneuropathy Abdominal aortic aneurysm (AAA) without rupture, unspecified part Atherosclerosis 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 Complete atrioventricular block [...] elsewhere, unspecified severity, with mood disturbance (HCC) Myasthenia gravis (HCC)- Primary Myasthenia gravis without exacerbation [facility] Diagnosis Pre-operative examination- Primary Preoperative examination, unspecified Other polyneuropathy Abdominal aortic aneurysm (AAA) without rupture, unspecified part Atherosclerosis 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 Complete atrioventricular block [...] elsewhere, unspecified severity, with mood disturbance (HCC) Myasthenia gravis (HCC) Myasthenia gravis without exacerbation [facility] Diagnosis Pre-operative examination- Primary Preoperative examination, unspecified Other polyneuropathy Abdominal aortic aneurysm (AAA) without rupture, unspecified part Atherosclerosis 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 Complete atrioventricular block [...] elsewhere, unspecified severity, with mood disturbance (HCC) Myasthenia gravis (HCC) Myasthenia gravis without exacerbation [facility] Diagnosis Pre-operative examination- Primary Preoperative examination, unspecified Other polyneuropathy Abdominal aortic aneurysm (AAA) without rupture, unspecified part Atherosclerosis 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 Complete atrioventricular block [...] long-term current use of insulin (HCC)- Primary Cerebral microvascular disease Cerebrovascular disease, unspecified Bilateral carotid artery stenosis Occlusion and stenosis of carotid artery without mention of cerebral infarction Hypertensive kidney disease with chronic kidney disease stage IV (HCC) Unspecified hypertensive kidney disease with chronic kidney disease stage I through stage IV, or unspecified Essential hypertension, benign CKD (chronic kidney disease) stage 4, GFR 15-29 ml/min (HCC) Chronic kidney disease, Stage IV (severe) Hypertensive heart disease without heart failure Unspecified hypertensive heart disease without heart failure Other polyneuropathy Arthritis, multiple joint involvement Unspecified arthropathy, multiple sites Pure hypercholesterolemia Vitamin D deficiency Unspecified vitamin D deficiency Myasthenia gravis (HCC) Myasthenia gravis without exacerbation documented in this encounter [facility] course Narrative No data available for this section [facility] Discharge instructions Additional Instructions Your tests are consistent with your prior labs. No acute cause for your shortness of breath. Follow-up with your production intern.[facility] Work Phone: Reason for referral (narrative)* [...] ART COMPL BI STUDY Samson Ragsdale DO [address] [place] [address] [facility] [place] [address] [place] [id number] Referral ID Status Reason Start Date Expiration Date Visits Requested Visits Authorized [id number] Authorized Auto-Generat ed Referral 09/22/2022 09/22/2023 1 [...] IVC ILIAC VASCL/BPGS COMPLETE Samson Ragsdale DO [address] [place] [address] [facility] [place] [address] [place] [address] Referral ID Status Reason Start Date Expiration Date Visits Requested Visits Authorized [id number] Authorized Auto-Generat ed Referral 09/22/2022 09/22/2023 1 1 [facility] for referral (narrative)* Outpatient Procedure (Routine) - Authorized Specialty Diagnoses / Procedures Referred By Contac t Referred To Contact [facility] Diagnoses SOB (shortness of breath) Coronary artery 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 rich plaque Chest pain on breathing Procedures ECG COMPLETE ECG ROUTINE ECG W/LEAST 12 LDS W/I&R Samson Ragsdale DO [address] [place] [address] [facility] [place] [id number] [place] [address] Referral ID Status Reason Start Date Expiration Date Visits Requested Visits Authorized [id number] Authorized Auto-Generat ed Referral 03/23/2023 03/22/2024 1 1 * Diagnostic Procedure Only (Routine) - Closed Specialty Diagnoses / Procedures Referred By Contac t Referred To Contact XR IMAGING Diagnoses Bilateral chronic knee pain Procedures XR KNEE GENERAL 4V AP BOTH/PA BOTH/LAT/MERC BILATERAL RADIOLOGIC EXAM KNEE COMPLETE 4/MORE VIEWS Samson Ragsdale DO [address] [place] [address] [place] [address] Referral ID Status Reason Start Date Expiration Date V isits Requested Visits Authorized [id number] Closed Auto-Generate d Referral 03/23/2023 04/21/2024 1 1 * Diagnostic Procedure Only (Routine) - Closed Specialty Diagnoses / Procedures Referred By Contac t Referred To Contact XR IMAGING Diagnoses 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 Procedures XR LUMBAR GENERAL 3V AP/LAT/L5-S1 RADEX SPINE LUMBOSACRAL 2/3 VIEWS Samson Ragsdale DO [address] [place] [address] [place] [address] Referral ID Status Reason Start Date Expiration Date V isits Requested Visits Authorized [id number] Closed Auto-Generate d Referral 03/23/2023 04/21/2024 1 1 * Diagnostic Procedure Only (Routine) - Authorized Specialty Diagnoses / Procedures Referred By Contac t Referred To Contact MOLECULAR & FUNCTIONAL IMAGING Diagnoses SOB (shortness of breath) Coronary artery 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 rich plaque Chest pain on breathing Procedures NM CARDIAC PERF STRESS/PHARM MYOCARDIAL SPECT MULTIPLE STUDIES Samson Ragsdale DO [address] [place] [address] [facility] [address] [place] [address] Referral ID Status Reason Start Date Expiration Date Visits Requested Visits Authorized [id number] Authorized Auto-Generat ed Referral 03/23/2023 04/21/2024 1 1 * Outpatient Procedure (Routine) - Authorized Specialty Diagnoses / Procedures Referred By Contac t Referred To Contact [facility] Diagnoses SOB (shortness of breath) Coronary artery 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 rich plaque Chest pain on breathing Procedures ECHO ECHO TTHRC R-T 2D W/WOM-MODE COMPL SPEC&COLR D Samson Ragsdale DO [address] [place] [address] [facility] [place] [address] [place] [address] Referral ID Status Reason Start Date Expiration Date Visits Requested Visits Authorized [id number] Authorized Auto-Generat ed Referral 03/23/2023 03/22/2024 1 1 [facility] for referral (narrative)* Diagnostic Procedure Only (Routine) - Closed Specialty Diagnoses / Procedures Referred By Contac t Referred To Contact MOLECULAR & FUNCTIONAL IMAGING Diagnoses SOB (shortness of breath) Coronary artery 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 rich plaque Chest pain on breathing Procedures NM CARDIAC PERF STRESS/PHARM MYOCARDIAL SPECT MULTIPLE STUDIES Samson Ragsdale DO [address] [place] [address] [facility] [address] [place] [address] Referral ID Status Reason Start Date Expiration Date V isits Requested Visits Authorized [id number] Closed Auto-Generate d Referral 03/23/2023 04/21/2024 1 1 [facility] for referral (narrative)* Outpatient Procedure (Routine) - Authorized Specialty Diagnoses / Procedures Referred By Contac t Referred To Contact [facility] Diagnoses Infrarenal abdominal aortic aneurysm (AAA) without rupture (HCC) Procedures US ABD AORTA COMPLETE VAS LAB DUP-SCAN AORTA IVC ILIAC VASCL/BPGS COMPLETE Brittany West DO [address] [place] [address] [facility] [place] [address] [place] [id number] Referral ID Status Reason Start Date Expiration Date Visits Requested Visits Authorized [id number] Authorized Auto-Generat ed Referral 3 05/30/2024 1 1 * Outpatient Procedure (Routine) - Authorized Specialty Diagnoses / Procedures Referred By Contac t Referred To Contact [facility] Diagnoses Bilateral carotid artery stenosis Procedures US CAROTID ARTERIES MELISSA VAS LAB DUPLEX SCAN EXTRACRANIAL ART COMPL BI STUDY Brittany West DO [address] [place] [address] [facility] [address] [address] Referral ID Status Reason Start Date Expiration Date Visits Requested Visits Authorized [id number] Authorized Auto-Generat ed Referral 3 05/30/2024 1 1 [facility] for referral (narrative)* Outpatient Procedure (Routine) - Authorized Specialty Diagnoses / Procedures [facility] Diagnoses Generalized abdominal pain Gastroesophageal reflux disease without esophagitis Procedures EGD DIAGNOSTIC ESOPHAGOGASTRODUODENOSC OPY TRANSORAL DIAGNOSTIC Cristela Andersen APRN.KEELER POLYGRAPH OPERATOR [address] [place] [address] [facility] [place] [id number] Referral ID Status Reason Start Date Expiration Date Visits Requested Visits Authorized [id number] Authorized Auto-Generat ed Referral 04/16/2024 04/16/2025 1 1 * Outpatient Procedure (Routine) - Authorized Specialty Diagnoses / Procedures [facility] Diagnoses Chronic diarrhea Generalized abdominal pain Procedures COLONOSCOPY DIAGNOSTIC COLONOSCOPY FLX DX W/COLLJ SPEC WHEN PFRMD Cristela Andersen APRN.KEELER POLYGRAPH OPERATOR [address] [place] [address] [address] Referral ID Status Reason Start Date Expiration Date Visits Requested Visits Authorized [id number] Authorized Auto-Generat ed Referral 04/16/2024 04/16/2025 1 1 [facility] for referral (narrative)* Diagnostic Procedure Only (Routine) - Closed Specialty Diagnoses / Procedures [facility] Ref[facility] To Contact XR IMAGING Diagnoses Bilateral chronic knee pain Procedures XR KNEE GENERAL 4V AP BOTH/PA BOTH/LAT/MERC BILATERAL RADIOLOGIC EXAM KNEE COMPLETE 4/MORE VIEWS Samson Ragsdale, DO [address] [place] [address] [place] [address] Referral ID Status Reason Start Date Expiration Date V isits Requested Visits Authorized [id number] Closed Auto-Generate d Referral 03/23/2023 04/21/2024 1 1 * Diagnostic Procedure Only (Routine) - Closed Specialty Diagnoses / Procedures Referred By Contac t Referred To Contact XR IMAGING Diagnoses 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 Procedures XR LUMBAR GENERAL 3V AP/LAT/L5-S1 RADEX SPINE LUMBOSACRAL 2/3 VIEWS Samson Ragsdale, DO [address] [place] [address] [place] [address] Referral ID Status Reason Start Date Expiration Date V isits Requested Visits Authorized [id number] Closed Auto-Generate d Referral 03/23/2023 04/21/2024 1 1 [facility] for referral (narrative)* Outpatient Procedure (Routine) - Pending Review Specialty Diagnoses / Procedures Referred By Contac t Referred To Contact [facility] Diagnoses Bilateral carotid artery stenosis Procedures US CAROTID ARTERIES MELISSA VAS LAB DUPLEX SCAN EXTRACRANIAL ART COMPL BI STUDY Brittany West DO [address] [place] [address] [facility] [address] [address] Referral ID Status Reason Start Date Expiration Date Visits Requested Visits Authorized [id number] Pending Review Auto-Generat ed Referral 10/04/2023 10/03/2024 1 1 * Outpatient Procedure (Routine) - Pending Review Specialty Diagnoses / Procedures Referred By Contac t Referred To Contact [facility] Diagnoses Infrarenal abdominal aortic aneurysm (AAA) without rupture (HCC) Procedures US ABD AORTA COMPLETE VAS LAB DUP-SCAN AORTA IVC ILIAC VASCL/BPGS COMPLETE Brittany West DO [address] [place] [address] [facility] [address] [address] Referral ID Status Reason Start Date Expiration Date Visits Requested Visits Authorized [id number] Pending Review Auto-Generat ed Referral 10/04/2023 10/03/2024 1 1 [facility] for referral (narrative)* Outpatient Procedure (Routine) - Closed Specialty Diagnoses / Procedures Referred By Contac t Referred To Contact [facility] Diagnoses Generalized abdominal pain Gastroesophageal reflux disease without esophagitis Procedures EGD DIAGNOSTIC ESOPHAGOGASTRODUODENOSC OPY TRANSORAL DIAGNOSTIC Cristela Andersen APRN.KEELER POLYGRAPH OPERATOR [address] [place] [address] [address] Referral ID Status Reason Start Date Expiration Date V isits Requested Visits Authorized [id number] Closed Auto-Generate d Referral 04/16/2024 04/16/2025 1 1 * Outpatient Procedure (Routine) - Closed Specialty Diagnoses / Procedures Referred By Contac t Referred To Contact [facility] Diagnoses Chronic diarrhea Generalized abdominal pain Procedures COLONOSCOPY DIAGNOSTIC COLONOSCOPY FLX DX W/COLLJ SPEC WHEN PFCristela Foster APRN.KEELER POLYGRAPH OPERATOR [address] [facility] [place] [place] [address] [facility] [address] [address] Referral ID Status Reason Start Date Expiration Date V isits Requested Visits Authorized [id number] Closed Auto-Generate d Referral 04/16/2024 04/16/2025 1 1 [facility] for referral (narrative)No reason for referral information [facility]ast [facility] Work Phone: Reason for visit Narrative* Diagnostic Procedure Only (Routine) - Closed Specialty Diagnoses / Procedures Referred By Contac t Referred To Contact MOLECULAR & FUNCTIONAL IMAGING Diagnoses SOB (shortness of breath) Coronary artery 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 rich plaque Chest pain on breathing Procedures NM CARDIAC PERF STRESS/PHARM MYOCARDIAL SPECT MULTIPLE STUDIES Samson Ragsdale, DO [address] [place] [address] [facility] [address] [place] [address] Referral ID Status Reason Start Date Expiration Date V isits Requested Visits Authorized [id number] Closed Auto-Generate d Referral 03/23/2023 04/21/2024 1 1 [facility] for visit Narrative* Diagnostic Procedure Only (Routine) - Closed Specialty Diagnoses / Procedures Referred By Contac t Referred To Contact XR IMAGING Diagnoses Bilateral chronic knee pain Procedures XR KNEE GENERAL 4V AP BOTH/PA BOTH/LAT/MERC BILATERAL RADIOLOGIC EXAM KNEE COMPLETE 4/MORE VIEWS Samson Ragsdale, DO [address] [place] [address] [place] [address] Referral ID Status Reason Start Date Expiration Date V isits Requested Visits Authorized [id number] Closed Auto-Generate d Referral 03/23/2023 04/21/2024 1 1 [facility] for visit Narrative* Outpatient Procedure (Routine) - Closed Specialty Diagnoses / Procedures Referred By Contac t Referred To Contact [facility] Diagnoses Chronic diarrhea Generalized abdominal pain Procedures COLONOSCOPY DIAGNOSTIC COLONOSCOPY FLX DX W/COLLJ SPEC WHEN Cristela Shaikh, LACE ROLLER.KEELER POLYGRAPH OPERATOR [address] [place] [address] [facility] [place] [address] [place] [address] Referral ID Status Reason Start Date Expiration Date V isits Requested Visits Authorized [id number] Closed Auto-Generate d Referral 04/16/2024 04/16/2025 1 1 [facility] for visit Narrative* Diagnostic Procedure Only (Routine) - Closed Specialty Diagnoses / Procedures Referred By Contac t Referred To Contact XR IMAGING Diagnoses Upper back pain Procedures XR THORACIC GENERAL 3V AP/LAT/SWIMMERS RADEX SPINE THORACIC 3 VIEWS Theodora Hernandez, LACE ROLLER.KEELER POLYGRAPH OPERATOR [address] [place] [address] Phone: tel: fax: [place] [address] Referral ID Status Reason Start Date Expiration Date V isits Requested Visits Authorized [id number] Closed Auto-Generate d Referral 11/26/2024 12/26/2025 1 1 [facility] for visit Narrative* MRI/CT (Urgent) - Closed Specialty Diagnoses / Procedures Referred By Melita t Referred To Contact MR IMAGING Diagnoses Other symptoms and signs involving the nervous system Procedures MRI BRAIN WO IVCON MRI BRAIN BRAIN STEM W/O CONTRAST MATERIAL Lala Godinez, LACE ROLLER.KEELER POLYGRAPH OPERATOR [address] [place] [address] Phone: tel: fax: [place] [address] Referral ID Status Reason Start Date Expiration Date V isits Requested Visits Authorized [id number] Closed Auto-Generate d Referral 01/30/2025 03/01/2026 1 1 [facility] for visit Narrative* MRI/CT (Routine) - Closed Specialty Diagnoses / Procedures Referred By Melita t Referred To Contact CT IMAGING Diagnoses Myasthenia gravis (HCC) Procedures CT CHEST WO IVCON DIAGNOSTIC COMPUTED TOMOGRAPHY THORAX W/O CNTRST Manuela Lacy MD [address] [place] [address] Phone: tel: fax: [facility] IM[id number] Referral ID Status Reason Start Date Expiration Date V isits Requested Visits Authorized [id number] Closed Auto-Generate d Referral 03/18/2025 04/17/2026 1 1 [facility] Summary Purpose Family History Relationship Condition Age at Onset Recorded Date/T gonzalo father Arthritis Unknown mother Hypertension Unknown grandmother Diabetes mellitus Unknown No Family History Records Found Advance Directives No Advanced Directives Records Found Advance Directive Response Recorded Date/ Time Do you have a Healthcare Power of Professor Of Latin American Studies? No January 14, 2025 1:24am Reason for Referral Specialty Diagnoses / Procedures Referred By Melita oliver Referred To Contact Diagnoses Lymphocytic colitis Cristela Andersen, LACE ROLLER.KEELER POLYGRAPH OPERATOR [address] [place] [address] Referral ID Status Reason Start Date Expiration Date Visits Re quested Visits Authorized [id number] Closed 1 1 Specialty Diagnoses / Procedures Referred By Contac t Referred To Contact General Surgery Diagnoses Chronic diarrhea Generalized abdominal pain Procedures CONSULT TO GENERAL SURGERY OFFICE/OUTPATIENT [facility] 60 MINUTES Samson Ragsdale, [address] [place] [address] Referral ID Status Reason Start Date Expiration Date Visits Requested Visits Authorized [id number] Authorized PCP Requested Referral 03/26/2024 03/26/2025 1 [...] 1:22pm Hypertension January 15, 2025 1:22 pm Chief Complaint Admit Date SOB January 13, 2025 10:1 1pm Shortness of breath January 15, 2025 1:22 pm INT LAB ORDERS January 15, 2025 2:51 pm BLURED VISION January 18, 2025 7:03 am Chief Complaint Admit Date SOB January 13, 2025 10:1 1pm Shortness of breath January 15, 2025 1:22 pm INT LAB ORDERS January 15, 2025 2:51 pm BLURED VISION January 18, 2025 7:03 am BLURED VISION January 21, 2025 8:14 am CAROTID STENOSIS, 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 January 22 8:48am Reason for Visit Admit Date Dyspnea January 15, 2025 1:22 pm Abdominal aortic aneurysm January 15 1:22pm Carotid bruit January 15, 2025 1:22 pm Coronary artery disease January 15, 2025 1:22pm Dyslipidemia January 15, 2025 1:22 pm Hypertension January 15, 2025 1:22 pm Chronic kidney disease January 15, 2025 1 :22pm History of diabetes mellitus January 15, 2025 1:22pm Chief Complaint Admit Date SOB January 13, 2025 10:1 1pm Shortness of breath January 15, 2025 1:22 pm INT LAB ORDERS January 15, 2025 2:51 pm BLURED VISION January 18, 2025 12:0 0am BLURED VISION January 18, 2025 7:03 am BLURED VISION January 21, 2025 8:14 am CAROTID STENOSIS, 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 January 22 8:48am R06.00 - Dyspnea, unspecified January 29, 2025 9:15am Chief Complaint Admit Date SOB January 13, 2025 10:1 1pm Shortness of breath January 15, 2025 1:22 pm INT LAB ORDERS January 15, 2025 2:51 pm BLURED VISION January 18, 2025 12:0 0am BLURED VISION January 18, 2025 7:03 am BLURED VISION January 21, 2025 8:14 am CAROTID STENOSIS, 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 January 22 8:48am R06.00 - Dyspnea, unspecified January 29, 2025 9:15am 4 WK FU February 21, 2025 11:1 3am Reason for Visit Admit Date Dyspnea January 15, 2025 1:22 pm Abdominal aortic aneurysm January 15 1:22pm Carotid bruit January 15, 2025 1:22 pm Coronary artery disease January 15, 2025 1:22pm Dyslipidemia January 15, 2025 1:22 pm Hypertension January 15, 2025 1:22 pm Chronic kidney disease January 15, 2025 1 :22pm History of diabetes mellitus January 15, 2025 1:22pm Dyspnea February 21, 2025 11:1 3am Abdominal aortic aneurysm February 21 11:13am Carotid bruit February 21, 2025 11:1 3am Coronary artery disease February 21, 2025 11:13am Dyslipidemia February 21, 2025 11:1 3am Hypertension February 21, 2025 11:1 3am Chronic kidney disease February 21, 2025 1 1:13am History of diabetes mellitus February 21, 2025 11:13am Chief Complaint Admit Date SOB January 13, 2025 10:1 1pm Shortness of breath January 15, 2025 1:22 pm INT LAB ORDERS January 15, 2025 2:51 pm BLURED VISION January 18, 2025 12:0 0am BLURED VISION January 18, 2025 7:03 am BLURED VISION January 21, 2025 8:14 am CAROTID STENOSIS, 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 January 22 8:48am R06.00 - Dyspnea, unspecified January 29, 2025 9:15am 4 WK FU February 21, 2025 11:1 3am DYSPHAGIA March 05, 2025 12: 46pm Reason for Visit Admit Date Dyspnea January 15, 2025 1:22 pm Abdominal aortic aneurysm January 15 1:22pm Carotid bruit January 15, 2025 1:22 pm Coronary artery disease January 15, 2025 1:22pm Dyslipidemia January 15, 2025 1:22 pm Hypertension January 15, 2025 1:22 pm Chronic kidney disease January 15, 2025 1 :22pm History of diabetes mellitus January 15, 2025 1:22pm Dyspnea February 21, 2025 11:1 3am Abdominal aortic aneurysm February 21 11:13am Carotid bruit February 21, 2025 11:1 3am Coronary artery disease February 21, 2025 11:13am Dyslipidemia February 21, 2025 11:1 3am Hypertension February 21, 2025 11:1 3am Additional Source Comments Source Comments (unrecognize d section and content) In the event this informatio n is protected by the Federal Confidentiality of Alcohol and Drug Abuse Patient Records regulations: The Federal rules restrict any use of the information to criminally investigate or prosecute any alcohol or drug abuse patient.[facility] CenterIn the event this information is protected by the Federal Confidentiality of Alcohol and Drug Abuse Patient Records regulations: The Federal rules restrict any use of the information to criminally investigate or prosecute any alcohol or drug abuse patient.[facility] CenterIn the event this information is protected by the Federal Confidentiality of Alcohol and Drug Abuse Patient Records regulations: The Federal rules restrict any use of the information to criminally investigate or prosecute any alcohol or drug abuse patient.[facility] CenterIn the event this information is protected by the Federal Confidentiality of Alcohol and Drug Abuse Patient Records regulations: The Federal rules restrict any use of the information to criminally investigate or prosecute any alcohol or drug abuse patient.[facility] CenterIn the event this information is protected by the Federal Confidentiality of Alcohol and Drug Abuse Patient Records regulations: The Federal rules restrict any use of the information to criminally investigate or prosecute any alcohol or drug abuse patient.[facility] CenterIn the event this information is protected by the Federal Confidentiality of Alcohol and Drug Abuse Patient Records regulations: The Federal rules restrict any use of the information to criminally investigate or prosecute any alcohol or drug abuse patient.[facility] CenterIn the event this information is protected by the Federal Confidentiality of Alcohol and Drug Abuse Patient Records regulations: The Federal rules restrict any use of the information to criminally investigate or prosecute any alcohol or drug abuse patient.[facility] CenterIn the event this information is protected by the Federal Confidentiality of Alcohol and Drug Abuse Patient Records regulations: The Federal rules restrict any use of the information to criminally investigate or prosecute any alcohol or drug abuse patient.[facility] CenterIn the event this information is protected by the Federal Confidentiality of Alcohol and Drug Abuse Patient Records regulations: The Federal rules restrict any use of the information to criminally investigate or prosecute any alcohol or drug abuse patient.[facility] CenterIn the event this information is protected by the Federal Confidentiality of Alcohol and Drug Abuse Patient Records regulations: The Federal rules restrict any use of the information to criminally investigate or prosecute any alcohol or drug abuse patient.[facility] CenterIn the event this information is protected by the Federal Confidentiality of Alcohol and Drug Abuse Patient Records regulations: The Federal rules restrict any use of the information to criminally investigate or prosecute any alcohol or drug abuse patient.[facility] CenterIn the event this information is protected by the Federal Confidentiality of Alcohol and Drug Abuse Patient Records regulations: The Federal rules restrict any use of the information to criminally investigate or prosecute any alcohol or drug abuse patient.[facility] CenterIn the event this information is protected by the Federal Confidentiality of Alcohol and Drug Abuse Patient Records regulations: The Federal rules restrict any use of the information to criminally investigate or prosecute any alcohol or drug abuse patient.[facility] CenterIn the event this information is protected by the Federal Confidentiality of Alcohol and Drug Abuse Patient Records regulations: The Federal rules restrict any use of the information to criminally investigate or prosecute any alcohol or drug abuse patient.[facility] CenterIn the event this information is protected by the Federal Confidentiality of Alcohol and Drug Abuse Patient Records regulations: The Federal rules restrict any use of the information to criminally investigate or prosecute any alcohol or drug abuse patient.[facility] CenterIn the event this information is protected by the Federal Confidentiality of Alcohol and Drug Abuse Patient Records regulations: The Federal rules restrict any use of the information to criminally investigate or prosecute any alcohol or drug abuse patient.[facility] CenterIn the event this information is protected by the Federal Confidentiality of Alcohol and Drug Abuse Patient Records regulations: The Federal rules restrict any use of the information to criminally investigate or prosecute any alcohol or drug abuse patient.[facility] CenterIn the event this information is protected by the Federal Confidentiality of Alcohol and Drug Abuse Patient Records regulations: The Federal rules restrict any use of the information to criminally investigate or prosecute any alcohol or drug abuse patient.[facility] CenterIn the event this information is protected by the Federal Confidentiality of Alcohol and Drug Abuse Patient Records regulations: The Federal rules restrict any use of the information to criminally investigate or prosecute any alcohol or drug abuse patient.[facility] CenterIn the event this information is protected by the Federal Confidentiality of Alcohol and Drug Abuse Patient Records regulations: The Federal rules restrict any use of the information to criminally investigate or prosecute any alcohol or drug abuse patient.[facility] CenterIn the event this information is protected by the Federal Confidentiality of Alcohol and Drug Abuse Patient Records regulations: The Federal rules restrict any use of the information to criminally investigate or prosecute any alcohol or drug abuse patient.[facility] CenterIn the event this information is protected by the Federal Confidentiality of Alcohol and Drug Abuse Patient Records regulations: The Federal rules restrict any use of the information to criminally investigate or prosecute any alcohol or drug abuse patient.[facility] CenterIn the event this information is protected by the Federal Confidentiality of Alcohol and Drug Abuse Patient Records regulations: The Federal rules restrict any use of the information to criminally investigate or prosecute any alcohol or drug abuse patient.[facility] CenterIn the event this information is protected by the Federal Confidentiality of Alcohol and Drug Abuse Patient Records regulations: The Federal rules restrict any use of the information to criminally investigate or prosecute any alcohol or drug abuse patient.[facility] CenterIn the event this information is protected by the Federal Confidentiality of Alcohol and Drug Abuse Patient Records regulations: The Federal rules restrict any use of the information to criminally investigate or prosecute any alcohol or drug abuse patient.[facility] CenterIn the event this information is protected by the Federal Confidentiality of Alcohol and Drug Abuse Patient Records regulations: The Federal rules restrict any use of the information to criminally investigate or prosecute any alcohol or drug abuse patient.[facility] CenterIn the event this information is protected by the Federal Confidentiality of Alcohol and Drug Abuse Patient Records regulations: The Federal rules restrict any use of the information to criminally investigate or prosecute any alcohol or drug abuse patient.[facility] CenterIn the event this information is protected by the Federal Confidentiality of Alcohol and Drug Abuse Patient Records regulations: The Federal rules restrict any use of the information to criminally investigate or prosecute any alcohol or drug abuse patient.[facility] CenterIn the event this information is protected by the Federal Confidentiality of Alcohol and Drug Abuse Patient Records regulations: The Federal rules restrict any use of the information to criminally investigate or prosecute any alcohol or drug abuse patient.[facility] CenterIn the event this information is protected by the Federal Confidentiality of Alcohol and Drug Abuse Patient Records regulations: The Federal rules restrict any use of the information to criminally investigate or prosecute any alcohol or drug abuse patient.[facility] CenterIn the event this information is protected by the Federal Confidentiality of Alcohol and Drug Abuse Patient Records regulations: The Federal rules restrict any use of the information to criminally investigate or prosecute any alcohol or drug abuse patient.[facility] CenterIn the event this information is protected by the Federal Confidentiality of Alcohol and Drug Abuse Patient Records regulations: The Federal rules restrict any use of the information to criminally investigate or prosecute any alcohol or drug abuse patient.[facility] CenterIn the event this information is protected by the Federal Confidentiality of Alcohol and Drug Abuse Patient Records regulations: The Federal rules restrict any use of the information to criminally investigate or prosecute any alcohol or drug abuse patient.[facility] CenterIn the event this information is protected by the Federal Confidentiality of Alcohol and Drug Abuse Patient Records regulations: The Federal rules restrict any use of the information to criminally investigate or prosecute any alcohol or drug abuse patient.[facility] CenterIn the event this information is protected by the Federal Confidentiality of Alcohol and Drug Abuse Patient Records regulations: The Federal rules restrict any use of the information to criminally investigate or prosecute any alcohol or drug abuse patient.[facility] CenterIn the event this information is protected by the Federal Confidentiality of Alcohol and Drug Abuse Patient Records regulations: The Federal rules restrict any use of the information to criminally investigate or prosecute any alcohol or drug abuse patient.[facility] CenterIn the event this information is protected by the Federal Confidentiality of Alcohol and Drug Abuse Patient Records regulations: The Federal rules restrict any use of the information to criminally investigate or prosecute any alcohol or drug abuse patient.[facility] CenterIn the event this information is protected by the Federal Confidentiality of Alcohol and Drug Abuse Patient Records regulations: The Federal rules restrict any use of the information to criminally investigate or prosecute any alcohol or drug abuse patient.[facility] CenterIn the event this information is protected by the Federal Confidentiality of Alcohol and Drug Abuse Patient Records regulations: The Federal rules restrict any use of the information to criminally investigate or prosecute any alcohol or drug abuse patient.[facility] CenterIn the event this information is protected by the Federal Confidentiality of Alcohol and Drug Abuse Patient Records regulations: The Federal rules restrict any use of the information to criminally investigate or prosecute any alcohol or drug abuse patient.[facility] CenterIn the event this information is protected by the Federal Confidentiality of Alcohol and Drug Abuse Patient Records regulations: The Federal rules restrict any use of the information to criminally investigate or prosecute any alcohol or drug abuse patient.[facility] CenterIn the event this information is protected by the Federal Confidentiality of Alcohol and Drug Abuse Patient Records regulations: The Federal rules restrict any use of the information to criminally investigate or prosecute any alcohol or drug abuse patient.[facility] CenterIn the event this information is protected by the Federal Confidentiality of Alcohol and Drug Abuse Patient Records regulations: The Federal rules restrict any use of the information to criminally investigate or prosecute any alcohol or drug abuse patient.[facility] CenterIn the event this information is protected by the Federal Confidentiality of Alcohol and Drug Abuse Patient Records regulations: The Federal rules restrict any use of the information to criminally investigate or prosecute any alcohol or drug abuse patient.[facility] CenterIn the event this information is protected by the Federal Confidentiality of Alcohol and Drug Abuse Patient Records regulations: The Federal rules restrict any use of the information to criminally investigate or prosecute any alcohol or drug abuse patient.[facility] CenterIn the event this information is protected by the Federal Confidentiality of Alcohol and Drug Abuse Patient Records regulations: The Federal rules restrict any use of the information to criminally investigate or prosecute any alcohol or drug abuse patient.[facility] CenterIn the event this information is protected by the Federal Confidentiality of Alcohol and Drug Abuse Patient Records regulations: The Federal rules restrict any use of the information to criminally investigate or prosecute any alcohol or drug abuse patient.[facility] CenterIn the event this information is protected by the Federal Confidentiality of Alcohol and Drug Abuse Patient Records regulations: The Federal rules restrict any use of the information to criminally investigate or prosecute any alcohol or drug abuse patient.[facility] CenterIn the event this information is protected by the Federal Confidentiality of Alcohol and Drug Abuse Patient Records regulations: The Federal rules restrict any use of the information to criminally investigate or prosecute any alcohol or drug abuse patient.[facility] CenterIn the event this information is protected by the Federal Confidentiality of Alcohol and Drug Abuse Patient Records regulations: The Federal rules restrict any use of the information to criminally investigate or prosecute any alcohol or drug abuse patient.[facility] CenterIn the event this information is protected by the Federal Confidentiality of Alcohol and Drug Abuse Patient Records regulations: The Federal rules restrict any use of the information to criminally investigate or prosecute any alcohol or drug abuse patient.[facility] CenterIn the event this information is protected by the Federal Confidentiality of Alcohol and Drug Abuse Patient Records regulations: The Federal rules restrict any use of the information to criminally investigate or prosecute any alcohol or drug abuse patient.[facility] CenterIn the event this information is protected by the Federal Confidentiality of Alcohol and Drug Abuse Patient Records regulations: The Federal rules restrict any use of the information to criminally investigate or prosecute any alcohol or drug abuse patient.[facility] CenterIn the event this information is protected by the Federal Confidentiality of Alcohol and Drug Abuse Patient Records regulations: The Federal rules restrict any use of the information to criminally investigate or prosecute any alcohol or drug abuse patient.[facility] CenterIn the event this information is protected by the Federal Confidentiality of Alcohol and Drug Abuse Patient Records regulations: The Federal rules restrict any use of the information to criminally investigate or prosecute any alcohol or drug abuse patient.[facility] CenterIn the event this information is protected by the Federal Confidentiality of Alcohol and Drug Abuse Patient Records regulations: The Federal rules restrict any use of the information to criminally investigate or prosecute any alcohol or drug abuse patient.[facility] CenterIn the event this information is protected by the Federal Confidentiality of Alcohol and Drug Abuse Patient Records regulations: The Federal rules restrict any use of the information to criminally investigate or prosecute any alcohol or drug abuse patient.[facility] CenterIn the event this information is protected by the Federal Confidentiality of Alcohol and Drug Abuse Patient Records regulations: The Federal rules restrict any use of the information to criminally investigate or prosecute any alcohol or drug abuse patient.[facility] CenterIn the event this information is protected by the Federal Confidentiality of Alcohol and Drug Abuse Patient Records regulations: The Federal rules restrict any use of the information to criminally investigate or prosecute any alcohol or drug abuse patient.[facility] CenterIn the event this information is protected by the Federal Confidentiality of Alcohol and Drug Abuse Patient Records regulations: The Federal rules restrict any use of the information to criminally investigate or prosecute any alcohol or drug abuse patient.[facility] CenterIn the event this information is protected by the Federal Confidentiality of Alcohol and Drug Abuse Patient Records regulations: The Federal rules restrict any use of the information to criminally investigate or prosecute any alcohol or drug abuse patient.[facility] CenterIn the event this information is protected by the Federal Confidentiality of Alcohol and Drug Abuse Patient Records regulations: The Federal rules restrict any use of the information to criminally investigate or prosecute any alcohol or drug abuse patient.[facility] CenterIn the event this information is protected by the Federal Confidentiality of Alcohol and Drug Abuse Patient Records regulations: The Federal rules restrict any use of the information to criminally investigate or prosecute any alcohol or drug abuse patient.[facility] CenterIn the event this information is protected by the Federal Confidentiality of Alcohol and Drug Abuse Patient Records regulations: The Federal rules restrict any use of the information to criminally investigate or prosecute any alcohol or drug abuse patient.[facility] CenterIn the event this information is protected by the Federal Confidentiality of Alcohol and Drug Abuse Patient Records regulations: The Federal rules restrict any use of the information to criminally investigate or prosecute any alcohol or drug abuse patient.[facility] CenterIn the event this information is protected by the Federal Confidentiality of Alcohol and Drug Abuse Patient Records regulations: The Federal rules restrict any use of the information to criminally investigate or prosecute any alcohol or drug abuse patient.[facility] CenterIn the event this information is protected by the Federal Confidentiality of Alcohol and Drug Abuse Patient Records regulations: The Federal rules restrict any use of the information to criminally investigate or prosecute any alcohol or drug abuse patient.[facility] CenterIn the event this information is protected by the Federal Confidentiality of Alcohol and Drug Abuse Patient Records regulations: The Federal rules restrict any use of the information to criminally investigate or prosecute any alcohol or drug abuse patient.[facility] CenterIn the event this information is protected by the Federal Confidentiality of Alcohol and Drug Abuse Patient Records regulations: The Federal rules restrict any use of the information to criminally investigate or prosecute any alcohol or drug abuse patient.[facility] CenterIn the event this information is protected by the Federal Confidentiality of Alcohol and Drug Abuse Patient Records regulations: The Federal rules restrict any use of the information to criminally investigate or prosecute any alcohol or drug abuse patient.[facility] CenterIn the event this information is protected by the Federal Confidentiality of Alcohol and Drug Abuse Patient Records regulations: The Federal rules restrict any use of the information to criminally investigate or prosecute any alcohol or drug abuse patient.[facility] CenterIn the event this information is protected by the Federal Confidentiality of Alcohol and Drug Abuse Patient Records regulations: The Federal rules restrict any use of the information to criminally investigate or prosecute any alcohol or drug abuse patient.[facility] Reason for Visit (unrecogniz ed [...] STRESS/PHARM MYOCARDIAL SPECT MULTIPLE STUDIES Samson Ragsdale L, DO [address] [place] [address] [facility] [address] [place] [id number] Referral ID Status Reason Start Date Expiration Date V isits Requested Visits Authorized [id number] Closed Auto-Generate d Referral 03/23/2023 04/21/2024 1 [...] Colonoscopy Specialty Diagnoses / Procedures Referred By eMlita oliver Referred To Contact General Surgery Diagnoses Chronic diarrhea Generalized abdominal pain Procedures CONSULT TO GENERAL SURGERY OFFICE/OUTPATIENT [facility] MDM 60 MINUTES Samson Ragsdale, DO [address] [place] [address] Referral ID Status Reason Start Date Expiration Date V isits Requested Visits Authorized [id number] Closed PCP Requested Referral 03/26/2024 03/26/2025 1 [...] Comments Population Health Navigation Outreach 12/10/2024 [facility] Reason Comments Cough Cough, chest congest ion and SOB x 10 days Reason Comments ER F/U Reason Comments Orders Recheck for difficulty swall owing and distorted vision Reason Comments Follow Up Reason Onset Date Comments Results 01/31/2025 Reason Comments New Patient Cerebral microvascul ar disease Eye Problem 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 Fatigue Ptosis OU Throat Problem muscle weakness all extremities Weight Problem Loss of approx 20 lb s since swallowing issue started Specialty Diagnoses / Procedures Referred By Melita oliver Referred To Contact Neurology Diagnoses Cerebral microvascular disease Procedures CONSULT TO NEUROLOGY OFFICE/OUTPATIENT [facility] 60 MINUTES Lala Godinez APRN.[employer] [address] [place] [address] Phone: tel: fax: Referral ID Status Reason Start Date Expiration Date V isits Requested Visits Authorized [id number] Closed PCP Requested Referral 01/31/2025 01/31/2026 1 1 Reason Onset Date Comments Results 02/27/2025 Reason Comments Medication Problem Reason Comments New Patient Specialty Diagnoses / Procedures Referred By Contac t Referred To Contact Neurology Diagnoses Myasthenia gravis (HCC) Procedures OFFICE/OUTPATIENT [facility] 60 MINUTES Jud Maguire PA-C [address] [place] [address] Phone: tel: fax: Referral ID Status Reason Start Date Expiration Date V isits Requested Visits Authorized [id number] Closed PCP Requested Referral 02/27/2025 02/27/2026 1 1 Care Teams (unrecognized sec tion and content) Child Nutrition Assistant Relationship Specialty Start Date End Date Samson Ragsdale, DO [address] [facility] [address] PCP - General Family Practice 10/09/14 Child Nutrition Assistant Relationship Specialty Start Date End Date Samson Ragsdale DO [address] [facility] [address] PCP - General Family Practice 10/09/14 Child Nutrition Assistant Relationship Specialty Start Date End Date Samson Ragsdale DO [address] [facility] [address] PCP - General Family Practice 10/09/14 Child Nutrition Assistant Relationship Specialty Start Date End Date Samson Ragsdale DO [address] [facility] [address] PCP - General Family Medicine 10/09/14 Child Nutrition Assistant Relationship Specialty Start Date End Date Samson Ragsdale DO [address] [facility] [place] [address] PCP - General Family Medicine 10/09/14 Child Nutrition Assistant Relationship Specialty Start Date End Date Samson Ragsdale DO [address] [facility] [place] [address] PCP - General Family Medicine 10/09/14 Child Nutrition Assistant Relationship Specialty Start Date End Date Samson Ragsdale DO [address] [facility] [place] [address] PCP - General Family Medicine 10/09/14 Child Nutrition Assistant Relationship Specialty Start Date End Date Samson Ragsdale, DO [address] [place] [address] PCP - General Family Medicine 10/09/14 Child Nutrition Assistant Relationship Specialty Start Date End Date Samson Ragsdale, DO [address] [place] [address] PCP - General Family Medicine 10/09/14 Child Nutrition Assistant Relationship Specialty Start Date End Date Samson Ragsdale, DO [address] [place] [address] PCP - General Family Medicine 10/09/14 Child Nutrition Assistant Relationship Specialty Start Date End Date Samson Ragsdale DO [address] [place] [address] PCP - General Family Medicine 10/09/14 Child Nutrition Assistant Relationship Specialty Start Date End Date Samson Ragsdale DO [address] [place] [address] PCP - General Family Medicine 10/09/14 Child Nutrition Assistant Relationship Specialty Start Date End Date Samson Ragsdale DO [address] [place] [address] PCP - General Family Medicine 10/09/14 Child Nutrition Assistant Relationship Specialty Start Date End Date Samson Ragsdale DO [address] [place] [address] PCP - General Family Medicine 10/09/14 Child Nutrition Assistant Relationship Specialty Start Date End Date Samson Ragsdale DO [address] [place] [address] PCP - General Family Medicine 10/09/14 Child Nutrition Assistant Relationship Specialty Start Date End Date Samson Ragsdale DO [address] [facility] [address] PCP - General Family Medicine 10/09/14 Child Nutrition Assistant Relationship Specialty Start Date End Date Samson Ragsdale, [address] [facility] [place] [address] PCP - General Family Medicine 10/09/14 Child Nutrition Assistant Relationship Specialty Start Date End Date Samson Ragsdale, DO [address] [facility] [address] PCP - General Family Medicine 10/09/14 Child Nutrition Assistant Relationship Specialty Start Date End Date Samson Ragsdale DO [address] [facility] [place] [address] PCP - General Family Medicine 10/09/14 Child Nutrition Assistant Relationship Specialty Start Date End Date Samson Ragsdale DO [address] [facility] [place] [address] PCP - General Family Medicine 10/09/14 Child Nutrition Assistant Relationship Specialty Start Date End Date Samson Ragsdale DO [address] [facility] [place] [address] PCP - General Family Medicine 10/09/14 Child Nutrition Assistant Relationship Specialty Start Date End Date Samson Ragsdale DO [address] [facility] [place] [address] PCP - General Family Medicine 10/09/14 Child Nutrition Assistant Relationship Specialty Start Date End Date Samson Ragsdale, DO [address] [facility] [place] [address] PCP - General Family Medicine 10/09/14 Child Nutrition Assistant Relationship Specialty Start Date End Date Samson Ragsdale, [address] [place] [address] PCP - General Family Medicine 10/09/14 Child Nutrition Assistant Relationship Specialty Start Date End Date Samson Ragsdale, [address] [place] [address] PCP - General Family Medicine 10/09/14 Child Nutrition Assistant Relationship Specialty Start Date End Date Samson Ragsdale, [address] [place] [address] PCP - General Family Medicine 10/09/14 Child Nutrition Assistant Relationship Specialty Start Date End Date Samson Ragsdale, [address] [place] [address] PCP - General Family Medicine 10/09/14 Child Nutrition Assistant Relationship Specialty Start Date End Date Samson Ragsdale DO [address] [place] [address] PCP - General Family Medicine 10/09/14 Child Nutrition Assistant Relationship Specialty Start Date End Date Samson Ragsdale, [address] [place] [address] PCP - General Family Medicine 10/09/14 Child Nutrition Assistant Relationship Specialty Start Date End Date Samson Ragsdale, [address] [place] [address] PCP - General Family Medicine 10/09/14 Child Nutrition Assistant Relationship Specialty Start Date End Date Samson Ragsdale, [address] [place] [address] PCP - General Family Medicine 10/09/14 Child Nutrition Assistant Relationship Specialty Start Date End Date Samson Ragsdale DO [address] [place] [address] PCP - General Family Medicine 10/09/14 Child Nutrition Assistant Relationship Specialty Start Date End Date Samson Ragsdale, [address] [place] [address] PCP - General Family Medicine 10/09/14 Child Nutrition Assistant Relationship Specialty Start Date End Date Samson Ragsdale DO [address] [place] [address] PCP - General Family Medicine 10/09/14 Child Nutrition Assistant Relationship Specialty Start Date End Date Samson Ragsdale DO [address] [place] [address] PCP - General Family Medicine 10/09/14 Child Nutrition Assistant Relationship Specialty Start Date End Date Samson Ragsdale DO [address] [place] [address] PCP - General Family Medicine 10/09/14 Child Nutrition Assistant Relationship Specialty Start Date End Date Samson Ragsdale DO [address] [place] [address] PCP - General Family Medicine 10/09/14 Child Nutrition Assistant Relationship Specialty Start Date End Date Samson Ragsdale DO [address] [place] [address] PCP - General Family Medicine 10/09/14 Child Nutrition Assistant Relationship Specialty Start Date End Date Samson Ragsdale DO [address] [place] [address] PCP - General Family Medicine 10/09/14 Child Nutrition Assistant Relationship Specialty Start Date End Date Samson Ragsdale DO [address] [place] [address] PCP - General Family Medicine 10/09/14 Child Nutrition Assistant Relationship Specialty Start Date End Date Samson Ragsdale DO [address] [place] [address] PCP - General Family Medicine 10/09/14 Child Nutrition Assistant Relationship Specialty Start Date End Date Samson Ragsdale DO [address] [place] [address] PCP - General Family Medicine 10/09/14 Child Nutrition Assistant Relationship Specialty Start Date End Date Samson Ragsdale DO [address] [place] [address] PCP - General Family Medicine 10/09/14 Desirae Irving, LACE ROLLER.KEELER POLYGRAPH OPERATOR [address] [place] [address] Speech Pathologist Family Medicine 07/08/24 Lore Saenz, LACE ROLLER.KEELER POLYGRAPH OPERATOR [address] [place] [address] Speech Pathologist Family Medicine 07/08/24 Child Nutrition Assistant Relationship Specialty Start Date End Date Samson Ragsdale DO [address] [place] [address] PCP - General Family Medicine 10/09/14 Desirae Irving, LACE ROLLER.KEELER POLYGRAPH OPERATOR [address] [place] [address] Speech Pathologist Family [facility] 07/08/24 Lore Saenz, LACE ROLLER.KEELER POLYGRAPH OPERATOR [address] [facility] [place] [address] [facility] 07/08/24 Child Nutrition Assistant Relationship Specialty Start Date End Date Samson Ragsdale DO [address] [facility] [place] [address] PCP - General Family Medicine 10/09/14 Desirae Irving, LACE ROLLER.KEELER POLYGRAPH OPERATOR [address] [facility] [place] [address] [facility] 07/08/24 DanyLore, LACE ROLLER.KEELER POLYGRAPH OPERATOR [address] [place] [address] [facility] 07/08/24 Child Nutrition Assistant Relationship Specialty Start Date End Date Samson Ragsdale DO [address] [facility] [place] [address] PCP - General Family Medicine 10/09/14 Desirae Irving, LACE ROLLER.KEELER POLYGRAPH OPERATOR [address] [facility] [place] [address] [facility] Medicine 07/08/24 DanyLore, LACE ROLLER.KEELER POLYGRAPH OPERATOR [address] [place] [address] [facility] 07/08/24 Child Nutrition Assistant Relationship Specialty Start Date End Date Samson Ragsdale DO [address] [facility] [place] [address] PCP - General Family Medicine 10/09/14 Lore Saenz, LACE ROLLER.KEELER POLYGRAPH OPERATOR [address] [place] [address] [facility] Child Nutrition Assistant Relationship Specialty Start Date End Date Samson Ragsdale DO [address] [place] [address] PCP - General Family Medicine 10/09/14 Desirae Irving, LACE ROLLER.KEELER POLYGRAPH OPERATOR [address] [place] [address] [facility] 07/08/24 10/19/24 Lore Saenz, LACE ROLLER.KEELER POLYGRAPH OPERATOR [address] [place] [address] [facility] 07/08/24 Child Nutrition Assistant Relationship Specialty Start Date End Date Samson Ragsdale DO [address] [place] [address] PCP - General Family Medicine 10/09/14 DanyLore, LACE ROLLER.KEELER POLYGRAPH OPERATOR [address] [place] [address] [facility] 07/08/24 Child Nutrition Assistant Relationship Specialty Start Date End Date Samson Ragsdale DO [address] [facility] [address] PCP - General Family Medicine 10/09/14 Lore Saenz, LACE ROLLER.KEELER POLYGRAPH OPERATOR [address] [facility] [place] [address] [facility] 07/08/24 Child Nutrition Assistant Relationship Specialty Start Date End Date Samson Ragsdale DO [address] [place] [address] PCP - General Family Medicine 10/09/14 Lore Saenz, LACE ROLLER.KEELER POLYGRAPH OPERATOR [address] [place], [place] [address] [facility] 07/08/24 Child Nutrition Assistant Relationship Specialty Start Date End Date Samson Ragsdale DO [address] [place], [place] [address] PCP - General [facility] Medicine 10/09/14 DanyLore, LACE ROLLER.KEELER POLYGRAPH OPERATOR [address] [place], [place] [address] [facility] 07/08/24 Team Status: Active Member Role Status [...] January 15, 2025 End: January 15, 2025 Child Nutrition Assistant Relationship Specialty Start Date End Date Samson Ragsdale DO [address] [place] [address] PCP - General Family Medicine 10/09/14 Lore Saenz, LACE ROLLER.KEELER POLYGRAPH OPERATOR [address] [place] [address] [facility] 07/08/24 Cony Cheng APRN.KEELER POLYGRAPH OPERATOR [address] [place], [place] [address] [facility] 01/14/25 Team Status: Inactive Member Role Status Dates Dr. Samson Ragsdale DO Primary Care Provider Active Start: January 13, 2025 End: January 14, 2025 Dr. Adam Mon MD Attending Provider Active S tart: January 13, 2025 [...] January 15, 2025 Dr. Srini Montano MD Referring Provider Active Start: January 15, 2025 End: January 15, 2025 Team Status: Active Member Role Status Dates Dr. Samson Ragsdale DO Primary Care Provider Active Start: January 18, 2025 Dr. Srini Montano MD Attending Provider Active Start: January 18, 2025 Dr. Srini Montano MD Referring Provider Active Start: January 18, 2025 Team Status: Inactive Member Role Status Dates Dr. Samson Ragsdale DO Primary Care Provider Active Start: January 18, 2025 End: January 18, 2025 Dr. Srini Montano MD Attending Provider Active Start: January 18, 2025 End: January 18, 2025 Dr. Srini Montano MD Referring Provider Active Start: January 18, 2025 End: January 18, 2025 Team Status: Active Member Role Status Dates Dr. Samson Ragsdale DO Primary Care Provider Active Start: January 18, 2025 Dr. Srini Montano MD Attending Provider Active Start: January 18, 2025 Team Status: Active Member Role Status Dates Dr. Samson Ragsdale DO Primary Care Provider Active Start: January 21, 2025 Dr. Srini Montano MD Attending Provider Active Start: January 21, 2025 Dr. Srini Montano MD Referring Provider Active Start: January 21, 2025 Dr. Srini Montano MD Other Provider Active Star t: January 21, 2025 Team Status: Active Member Role Status Dates Dr. Samson Ragsdale DO Primary Care Provider Active Start: January 22, 2025 Dr. Srini Montano MD Attending Provider Active Start: January 22, 2025 Dr. Srini Montano MD Referring Provider Active Start: January 22, 2025 Team Status: Active Member Role Status Dates Dr. Samson Ragsdale DO Primary Care Provider Active Start: January 22, 2025 Dr. Bk Arzate MD Attending Provider Active S tart: January 22, 2025 Team Status: Active Member Role/Relationship Status Dates Dr. Samson Ragsdale DO Primary Care Provider Active Team Status: Inactive Member Role/Relationship Status Dates Dr. Samson Ragsdale DO Primary Care Provider Active Start: January 13, 2025 End: January 14, 2025 Dr. Adam Mon MD Attending Provider Active S tart: January 13, 2025 End: January 14, 2025 Dr. Adam Mon MD Emergency Provider Active S tart: January 13, 2025 End: January 14, 2025 Team Status: Inactive Member Role/Relationship Status Dates Dr. Samson Ragsdale DO Primary Care Provider Active Start: January 15, 2025 End: January 15, 2025 Dr. Samson Ragsdale DO Referring Provider Active Start: January 15, 2025 End: January 15, 2025 Dr. Srini Montano MD Attending Provider Active Start: January 15, 2025 End: January 15, 2025 Team Status: Inactive Member Role/Relationship Status Dates Dr. Samson Ragsdale DO Primary Care Provider Active Start: January 15, 2025 End: January 15, 2025 Dr. Srini Montano MD Attending Provider Active Start: January 15, 2025 End: January 15, 2025 Dr. Srini Montano MD Referring Provider Active Start: January 15, 2025 End: January 15, 2025 Team Status: Inactive Member Role/Relationship Status Dates Dr. Samson Ragsdale DO Primary Care Provider Active Start: January 18, 2025 End: January 18, 2025 Dr. Srini Montano MD Attending Provider Active Start: January 18, 2025 End: January 18, 2025 Dr. Sriin Montano MD Referring Provider Active Start: January 18, 2025 End: January 18, 2025 Team Status: Active Member Role/Relationship Status Dates Dr. Samson Ragsdale DO Primary Care Provider Active Start: January 18, 2025 Dr. Srini Montano MD Attending Provider Active Start: January 18, 2025 Team Status: Active Member Role/Relationship Status Dates Dr. Samson Ragsdale DO Primary Care Provider Active Start: January 21, 2025 Dr. Srini Montano MD Attending Provider Active Start: January 21, 2025 Dr. Srini Montano MD Referring Provider Active Start: January 21, 2025 Dr. Srini Montano MD Other Provider Active Star t: January 21, 2025 Team Status: Inactive Member Role/Relationship Status Dates Dr. Samson Ragsdale DO Primary Care Provider Active Start: January 22, 2025 End: January 22, 2025 Dr. Srini Montano MD Attending Provider Active Start: January 22, 2025 End: January 22, 2025 Dr. Srini Montano MD Referring Provider Active Start: January 22, 2025 End: January 22, 2025 Team Status: Active Member Role/Relationship Status Dates Dr. Samson Ragsdale DO Primary Care Provider Active Start: January 22, 2025 Dr. Bk Arzate MD Attending Provider Active S tart: January 22, 2025 Child Nutrition Assistant Relationship Specialty Start Date End Date Samson Ragsdale DO [address] [facility] [address] PCP - General Family Medicine 10/09/14 Lore Saenz, MICHI.KEELER POLYGRAPH OPERATOR [address] [facility] [address] Speech Pathologist Family Medicine 07/08/24 Cony Cheng, LACE ROLLER.KEELER POLYGRAPH OPERATOR [address] [place] [address] Speech Pathologist [facility] 01/14/25 Child Nutrition Assistant Relationship Specialty Start Date End Date Samson Ragsdale DO [address] [place] [address] PCP - General Family Medicine 10/09/14 Lore Saenz, LACE ROLLER.KEELER POLYGRAPH OPERATOR [address] [place] [address] Speech Pathologist Family Medicine 07/08/24 Cony Cheng, LACE ROLLER.KEELER POLYGRAPH OPERATOR [address] [place] [address] [facility] 01/14/25 Child Nutrition Assistant Relationship Specialty Start Date End Date Samson Ragsdale DO [address] [place] [address] PCP - General Family Medicine 10/09/14 Lore Saenz, LACE ROLLER.KEELER POLYGRAPH OPERATOR [address] [place] [address] [facility] 07/08/24 Cony Cheng, LACE ROLLER.KEELER POLYGRAPH OPERATOR [facility] [place] [address] [facility] 01/14/25 Team Status: Active Member Role/Relationship Status Dates Dr. Samson Ragsdale DO Primary Care Provider Active Start: January 18, 2025 Dr. Srini Montano MD Attending Provider Active Start: January 18, 2025 Dr. Srini Montano MD Referring Provider Active Start: January 18, 2025 Team Status: Inactive Member Role/Relationship Status Dates Dr. Samson Ragsdale DO Primary Care Provider Active Start: January 18, 2025 End: January 18, 2025 Dr. Srini Montano MD Attending Provider Active Start: January 18, 2025 End: January 18, 2025 Dr. Srini Montano MD Referring Provider Active Start: January 18, 2025 End: January 18, 2025 Team Status: Active Member Role/Relationship Status Dates Dr. Samson Ragsdale DO Primary Care Provider Active Start: January 18, 2025 Dr. Srini Montano MD Attending Provider Active Start: January 18, 2025 Team Status: Active Member Role/Relationship Status Dates Dr. Samson Ragsdale DO Primary Care Provider Active Start: January 21, 2025 Dr. Srini Montano MD Attending Provider Active Start: January 21, 2025 Dr. Srini Montano MD Referring Provider Active Start: January 21, 2025 Dr. Srini Montano MD Other Provider Active Star t: January 21, 2025 Team Status: Inactive Member Role/Relationship Status Dates Dr. Samson Ragsdale DO Primary Care Provider Active Start: January 22, 2025 End: January 22, 2025 Dr. Srini Montano MD Attending Provider Active Start: January 22, 2025 End: January 22, 2025 Dr. Srini Montano MD Referring Provider Active Start: January 22, 2025 End: January 22, 2025 Team Status: Active Member Role/Relationship Status Dates Dr. Samson Ragsdale DO Primary Care Provider Active Start: January 22, 2025 Dr. Bk Arzate MD Attending Provider Active S tart: January 22, 2025 Team Status: Inactive Member Role/Relationship Status Dates Dr. Samson Ragsdale DO Primary Care Provider Active Start: January 29, 2025 End: January 29, 2025 Dr. Srini Montano MD Attending Provider Active Start: January 29, 2025 End: January 29, 2025 Dr. Srini Montano MD Referring Provider Active Start: January 29, 2025 End: January 29, 2025 Child Nutrition Assistant Relationship Specialty Start Date End Date Samson Ragsdale DO [address] [place] [address] PCP - General Family Medicine 10/09/14 Lore Saenz, LACE ROLLER.KEELER POLYGRAPH OPERATOR [address] [place], [place] [address] [facility] 07/08/24 Cony Cheng, LACE ROLLER.KEELER POLYGRAPH OPERATOR [address] [place], [place] [address] [facility] 01/14/25 Child Nutrition Assistant Relationship Specialty Start Date End Date Samson Ragsdale DO [address] [place], [place] [address] PCP - General Family Medicine 10/09/14 DanyLore, LACE ROLLER.KEELER POLYGRAPH OPERATOR [address] [place], [place] [address] [facility] 07/08/24 Cony Cheng, LACE ROLLER.KEELER POLYGRAPH OPERATOR [address] [place], [place] [address] [facility] 01/14/25 Team Status: Active Member Role/Relationship Status Dates Dr. Samson Ragsdale DO Primary Care Provider Active Start: January 22, 2025 Dr. Bk Arzate MD Attending Provider Active S tart: January 22, 2025 Dr. Srini Montano MD Referring Provider Active Start: January 22, 2025 Team Status: Inactive Member Role/Relationship Status Dates Dr. Samson Ragsdale DO Primary Care Provider Active Start: February 21, 2025 End: February 21, 2025 Dr. Samson Ragsdale DO Referring Provider Active Start: February 21, 2025 End: February 21, 2025 Bijal Sorenson ENTRY LEVEL BUSINESS ANALYST, ENTRY LEVEL BUSINESS ANALYST-C Attending Provider Active Start: February 21, 2025 End: February 21, 2025 Child Nutrition Assistant Relationship Specialty Start Date End Date Samson Ragsdale DO [address] [place], [place] [address] PCP - General Family Medicine 10/09/14 Lore Saenz, LACE ROLLER.KEELER POLYGRAPH OPERATOR [address] [place] [address] Speech Pathologist Family Medicine 07/08/24 Cony Cheng, LACE ROLLER.KEELER POLYGRAPH OPERATOR [address] [place] [address] Speech Pathologist Family [facility] 01/14/25 Child Nutrition Assistant Relationship Specialty Start Date End Date Samson Ragsdale DO [address] [place] [address] PCP - General Family Medicine 10/09/14 Lore Saenz, LACE ROLLER.KEELER POLYGRAPH OPERATOR [address] [place] [address] Speech Pathologist Family Medicine 07/08/24 Cony Cheng, LACE ROLLER.KEELER POLYGRAPH OPERATOR [address] [place] [address] [facility] 01/14/25 Child Nutrition Assistant Relationship Specialty Start Date End Date Samson Ragsdale DO [address] [place] [address] PCP - General Family Medicine 10/09/14 Lore Saenz, LACE ROLLER.KEELER POLYGRAPH OPERATOR [address] [place] [address] Speech Pathologist Family Medicine 07/08/24 Cony Cheng, LACE ROLLER.KEELER POLYGRAPH OPERATOR [address] [place] [address] [facility] 01/14/25 Team Status: Inactive Member Role/Relationship Status Dates Dr. Samson Rgasdale DO Primary Care Provider Active Start: March 05, 2025 End: March 05, 2025 Dr. Nolan Hoyt MD Attending Provider Active Start: March 05, 2025 End: March 05, 2025 Dr. Nolan Hoyt MD Referring Provider Active Start: March 05, 2025 End: March 05, 2025 Child Nutrition Assistant Relationship Specialty Start Date End Date Samson Ragsdale DO [address] [facility] [place] [address] PCP - General Family Medicine 10/09/14 Lore Saenz, LACE ROLLER.KEELER POLYGRAPH OPERATOR [address] [facility] [place] [address] [facility] 07/08/24 Cony Cheng, LACE ROLLER.KEELER POLYGRAPH OPERATOR [address] [facility] [place] [address] [facility] 01/14/25 Team Status: Inactive Member Role/Relationship Status Dates Dr. Samson Ragsdale DO Primary Care Provider Active Start: March 26, 2025 End: March 26, 2025 Dr. Marcial Monae DO Attending Provider Active Start: March 26, 2025 End: March 26, 2025 Dr. Marcial Monae DO Referring Provider Active Start: March 26, 2025 End: March 26, 2025 Child Nutrition Assistant Relationship Specialty Start Date End Date Samson Ragsdale DO [address] [facility] [place] [address] PCP - General Family Medicine 10/09/14 Lore Saenz, LACE ROLLER.KEELER POLYGRAPH OPERATOR [address] [facility] [place] [address] [facility] 07/08/24 Cony Cheng, LACE ROLLER.KEELER POLYGRAPH OPERATOR [address] [place], [place] [address] [facility] 01/14/25 Child Nutrition Assistant Relationship Specialty Start Date End Date RagsdaleSamson DO [address] [place], [place] [address] PCP - General Family Medicine 10/09/14 Lore Saenz, LACE ROLLER.KEELER POLYGRAPH OPERATOR [address] [place], [place] [address] [facility] 07/08/24 Cony Cheng, LACE ROLLER.KEELER POLYGRAPH OPERATOR [address] [place], [place] [id number] [facility] 01/14/25 (unrecognized sect ion and content) No Status Records FoundNo Status Records FoundNo Status Records FoundNo Status Records Found INFORMATION SOURCE (unrecogn ized section and content) DATE CREATED AUTHOR 06/01/2023 [facility] ([place]) DATE CREATED AUTHOR AUTHOR'S ORGANIZ ATION 05/25/2024 [facility] DATE CREATED AUTHOR AUTHOR'S ORGANIZ ATION 05/15/2025 [facility] DATE CREATED AUTHOR AUTHOR'S ORGANIZ ATION 05/15/[address] [facility] Goals (unrecognized section and content) Goals may [...] BE BASED ON THE PRIMARY CLINICAL RECORDS. [employer] provides no warranty or guarantee of the accuracy or completeness of information in this document.
[2025-05-16] MEDS: Silver Nitrate (BKC) 1 EACH TOPICAL (01:02)
[2025-05-16 01:47] VITALS: BP 152/73; PULSE 95; RESP 20; O2SAT 98
[2025-05-16 02:04] VITALS: BP 131/60; PULSE 98; RESP 16; TEMP 36.6; O2SAT 98
== END 2025-05-16 02:24 | disposition home or self-care (01) ==
PROVIDERS: Emergency Provider Emergency Medicine; PCP Student in an Organized Health Care Education/Training Program; Visit Provider Emergency Medicine
DX: R04.0 Epistaxis (principal); E11.22 Type 2 diabetes mellitus with diabetic chronic kidney disease; E11.51 Type 2 diabetes mellitus with diabetic peripheral angiopathy without gangrene; Z79.4 Long term (current) use of insulin; N18.32 Chronic kidney disease, stage 3b; I25.2 Old myocardial infarction; I25.5 Ischemic cardiomyopathy; I12.9 Hypertensive chronic kidney disease with stage 1 through stage 4 chronic kidney disease, or unspecified chronic kidney disease; E78.5 Hyperlipidemia, unspecified; I71.40 Abdominal aortic aneurysm, without rupture, unspecified; I25.10 Atherosclerotic heart disease of native coronary artery without angina pectoris; Z95.1 Presence of aortocoronary bypass graft; Z87.19 Personal history of other diseases of the digestive system; Z85.46 Personal history of malignant neoplasm of prostate; Z79.02 Long term (current) use of antithrombotics/antiplatelets; Z79.899 Other long term (current) drug therapy; Z87.891 Personal history of nicotine dependence
CPT/HCPCS: 30901; 99282

== ENCOUNTER 2025-05-16 12:00 | Emergency (ER) | payer MEDICARE, OTHER, SELFPAY ==
[2016-12-21 14:00] VITALS: BMI 28.0
[2025-05-16 12:00] VITALS: BP 124/71; PULSE 103; RESP 24; TEMP 36.5; O2SAT 99; BMI 24.5
[2025-05-16] MEDS: Oxymetazoline 0.05% 1 SPRAY SPRAY.BTL 2 SPRAY NASAL (12:53)
--- NOTE | 2025-05-16 12:58 | EX.ED.DYSGE1 ---
HPI History of Present Illness Chief Complaint: Nosebleed Narrative Narrative: Chief complaint and HPI: 84-year-old male with past medical history of CKD, DM2, CAD, HTN presents for evaluation of left nosebleed. Patient states his nose has been bleeding on and off for the past several days. Has had it cauterized in the past in the OR. Patient is on Plavix but no blood thinners. On chart review, patient was seen in our ED for the same complaint yesterday. Patient had anterior bleeding in which attempted cauterization was performed by ED physician. Nose rebled and the plan was to place Rhino Rocket however bleeding improved. Patient was offered Rhino Rocket with TXA however patient declined. Patient states he had a rebleeding out of the left nare earlier this morning. Has resolved since presenting to the emergency department. He denies any fever, chills, difficulty swallowing. Review of systems: See HPI Medications: As listed on the chart Allergies: As listed on the chart PFSH: Per chart Vital signs: As listed on the chart. Reviewed. Physical exam: Gen: A&O x3, NAD Head: Normocephalic, atraumatic Eyes: No sclera icterus, conjunctiva clear, PERRL ENT: TMs clear BL, moist mucous membranes, posterior oropharynx unremarkable, uvula midline, top dentures but bottom teeth are real, no dried blood or bleeding in the oral cavity, tolerating secretions, normal phonation, dried blood in the left nare without active bleeding, right nare clear. 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 Unspecified constipation Other and unspecified hyperlipidemia Internal hemorrhoid Generalized osteoarthritis Esophagitis Diverticulosis of colon (without mention of hemorrhage) Diaphragmatic hernia without mention of obstruction or gangrene Diabetes mellitus type 2, uncontrolled CKD stage 3b, GFR 30-44 ml/min Carotid atherosclerosis Acute myocardial infarction Acute gastritis without mention of hemorrhage Abdominal aneurysm without mention of rupture GI bleed due to NSAIDs Carotid artery stenosis Abdominal aortic aneurysm without rupture Ischemic cardiomyopathy Prostate cancer PVD (peripheral vascular disease) Atherosclerosis of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[place] heart without angina pectoris Complete heart block ST elevation [place] (STEMI) Chronic kidney disease, stage 3 Hyperlipidemia Hypertension Home Medications ?Medication ?Instructions ?Recorded ?Last Taken ?Type insulin glargine 100 unit/mL 10 unit subcut QHS blood sugar 05/08/18 05/15/25 History subcutaneous solution (Lantus U-100 Insulin) allopurinol 100 mg tablet 100 mg PO DAILY gout 06/21/19 05/15/25 History cholecalciferol (vitamin D3) 125 5,000 unit PO DAILY supplement 06/21/19 05/15/25 History mcg (5,000 unit) capsule losartan 50 mg tablet 25 mg PO DAILY blood pressure 06/21/19 05/15/25 History clopidogrel 75 mg tablet 75 mg PO DAILY heart #90 tabs 08/19/20 05/15/25 Rx cyanocobalamin (vitamin B-12) 5,000 mcg PO DAILY supplement 01/13/25 05/15/25 History 5,000 mcg capsule amlodipine 10 mg tablet 10 mg PO QPM blood pressure 01/14/25 05/15/25 History hydrocodone-acetaminophen 5-325mg 1 tab PO PRN extreme pain 01/14/25 Unknown History 5mg-325mg furosemide 80 mg tablet 80 mg PO QDAY PRN edema 02/21/25 Unknown History isosorbide mononitrate 60 mg 30 mg PO QDAY heart 02/21/25 Unknown History tablet,extended release 24 hr magnesium oxide 400 mg PO QDAY supplement 02/21/25 05/15/25 History zinc 50 mg tablet 50 mg PO DAILY for supplement 02/21/25 05/15/25 History amoxicillin 875 mg-potassium 1 tab PO BID 05/16/25 05/16/25 History clavulanate 125 mg tablet benzonatate 100 mg capsule 100 mg PO TID PRN cough 05/16/25 Unknown History isosorbide mononitrate 30 mg 30 mg PO DAILY heart 05/16/25 Unknown History tablet,extended release 24 hr pyridostigmine bromide 60 mg tablet 30 mg PO TID myasthenia gravis 05/16/25 05/16/25 History turmeric 400 mg capsule 400 mg PO DAILY for supplement 05/16/25 05/15/25 History Allergy/AdvReac Type Severity Reaction Status Date / Time ibuprofen Allergy Unknown NEEDS Verified 05/16/25 12:03 FOLLOW-UP pravastatin Allergy Unknown NEEDS Verified 05/16/25 12:03 FOLLOW-UP atorvastatin (From Lipitor) Allergy Unknown Verified 05/16/25 12:03 glucosamine Allergy Unknown Verified 05/16/25 12:03 rosuvastatin AdvReac Unknown NEEDS Verified 05/16/25 12:03 FOLLOW-UP [id number] Reductase AdvReac Unknown NEEDS Verified 05/16/25 12:03 Inhibitor FOLLOW-UP Family History Father Arthritis Mother Hypertension Grandmother Diabetes Surgical History H/O hernia repair History of esophagogastroduodenoscopy (EGD) History of carotid endarterectomy History of colonoscopy History of prostatectomy History of right-sided carotid endarterectomy History of coronary artery stent placement H/O coronary artery bypass surgery (~1994) Social History (Updated 05/16/25 @ 12:12 by Jeri Tucker) household members: spouse housing: house Smoking Status: Former smoker how long ago did patient quit smokin+years ago alcohol intake: current alcohol intake frequency: holidays/special occasions only substance use type: does not use caffeine: Yes Type: coffee and tea EXAM Physical Exam Const Vital Signs: 05/16/25 12:00 Temperature 97.7 F L Temperature Source Temporal Pulse Rate 103 H Respiratory Rate 24 H Blood Pressure 124/71 H Blood Pressure Mean 88 Pulse Ox 99 Oxygen Delivery Method Room Air MDM MDM MDM Narrative Medical decision making narrative: 84-year-old male with past medical history of CKD, DM2, CAD, HTN presents for evaluation of left nosebleed. Patient states his nose has been bleeding on and off for the past several days. Has had it cauterized in the past in the OR. Patient is on Plavix but no blood thinners. Patient was seen in our ER for the same complaint yesterday. I reviewed the ED note. See HPI. See physical exam. Differential is anterior epistaxis. No signs of posterior epistaxis. No active bleeding of the nare at this time. Will apply aspirin spray with nasal plug. On reevaluation, bleeding has not reoccurred. He ambulated in the emergency department without difficulty. Patient stable to discharge home. Follow-up with ENT. Will send home with Afrin spray and nasal plug. Return precautions explained. Impression: 1. Left anterior epistaxis Discharge Plan Triage Chief Complaint: Nosebleed ED Provider: Randy Luis Dx/Rx/DC Orders Clinical Impression: Anterior epistaxis Instructions: ED Epistaxis (Adult) Prescriptions: No Action insulin glargine [Lantus U-100 Insulin] 100 unit/mL solution 10 unit SC QHS allopurinol 100 mg tablet 100 mg PO DAILY losartan 50 mg tablet 25 mg PO DAILY cholecalciferol (vitamin D3) 5,000 unit capsule 5,000 unit PO DAILY amlodipine 10 mg tablet 10 mg PO QPM hydrocodone-acetaminophen 5-325 mg tablet 1 tab PO PRN furosemide 80 mg tablet 80 mg PO QDAY PRN (Reason: edema) magnesium oxide 400 mg magnesium capsule 400 mg PO QDAY isosorbide mononitrate 60 mg tablet extended release 24 hr 30 mg PO QDAY Patient Comments: pt states he does not take cyanocobalamin (vitamin B-12) 5,000 mcg capsule 5,000 mcg PO DAILY zinc 50 mg tablet 50 mg PO DAILY benzonatate 100 mg capsule 100 mg PO TID PRN amoxicillin-pot clavulanate 875-125 mg tablet 1 tab PO BID isosorbide mononitrate 30 mg tablet extended release 24 hr 30 mg PO DAILY Patient Comments: pt states he does not take pyridostigmine bromide 60 mg tablet 30 mg PO TID turmeric 400 mg capsule 400 mg PO DAILY clopidogrel 75 mg tablet 75 mg PO DAILY Qty: 90 3RF Primary Care Provider: Samson Ragsdale Referrals: Samson Ragsdale DO [Primary Care Provider, Medical] - 3-5 Days Theron Christie MD [Med Staff - Active Staff, Ear Nose Throat (ENT)] - 3-5 Days Activity Restrictions/Additional Instructions: Follow-up with ENT. Return back to ED symptoms change or worsen. If you rebleed recommend Afrin spray and nasal plug. Print Language: Bangladeshi Disposition Disposition: Home, Self Care
[2025-05-16 13:41] VITALS: BP 130/62; PULSE 74; RESP 18; TEMP 36.6; O2SAT 100
== END 2025-05-16 13:42 | disposition home or self-care (01) ==
PROVIDERS: Emergency Provider Surgery; PCP Student in an Organized Health Care Education/Training Program; Visit Provider Surgery
DX: R04.0 Epistaxis (principal); E11.22 Type 2 diabetes mellitus with diabetic chronic kidney disease; Z79.4 Long term (current) use of insulin; N18.32 Chronic kidney disease, stage 3b; E78.5 Hyperlipidemia, unspecified; I13.10 Hypertensive heart and chronic kidney disease without heart failure, with stage 1 through stage 4 chronic kidney disease, or unspecified chronic kidney disease; I25.5 Ischemic cardiomyopathy; I25.2 Old myocardial infarction; I25.10 Atherosclerotic heart disease of native coronary artery without angina pectoris; Z79.899 Other long term (current) drug therapy; Z79.02 Long term (current) use of antithrombotics/antiplatelets; Z87.891 Personal history of nicotine dependence; Z95.5 Presence of coronary angioplasty implant and graft
CPT/HCPCS: 30901; 99282

== ENCOUNTER 2025-05-17 17:31 | Emergency (ER) | payer MEDICARE, OTHER, SELFPAY ==
[2016-12-21 14:00] VITALS: BMI 28.0
[2025-05-17 17:31] VITALS: BP 108/81; PULSE 91; RESP 18; TEMP 36.8; O2SAT 98; BMI 24.5
--- OUTSIDE RECORDS SUMMARY | 2025-05-17 19:15 | XMS RPT_ITS | CCD ---
Author Organization [facility] Inform ion Partnership [facility] Care Team Providers Care Marketing Communications Coordinator Name Role Phone MD Daniel, Rich Perea [...] Unavailable SAMSON RAGSDALE Primary Care Unavailable Aristides BUSINESS SERVICES CLERK.WATER ATTENDANTDesirae Unavailable Dany BUSINESS SERVICES CLERK.WATER ATTENDANTLore Unavailable Aristides BUSINESS SERVICES CLERK.JAIRON, Desirae Otoole Unavailable Dr. Samson Rgasdale DO Primary Care Provider Dr. Adam Mon MD Emergency Provider Dr. Samson Ragsdale DO Referring Provider Dusty ASTORGA, Dr. Milligan Attending Provider Chaya BUSINESS SERVICES CLERK.WATER ATTENDANT, Cony Kaplan Unavailable [phone] Elieser ASTORGA, Dr. Medina Attending Provider Dusty ASTORGA, Dr. Milligan Referring Provider Dusty ASTORGA, Dr. Milligan Other Provider Carito ASTORGA, Dr. Bourgeois Attending Provider Bijal Montana Attending Provider Evelina ASTORGA, Dr. Nolan Quiroga Attending Provider Evelina ASTORGA, Dr. Nolan Quiroga Referring Provider [phone] [facility] , Dr. Ceja Attending Provider Dov [...] 7 myalgias [facility] Work Phone: [phone] (4 sources) chondroitin sulfates / glucosamine Drug Allergy 7 rash [facility] Work Phone: [phone] (20 sources) ibuprofen; Translations: [ibuprofen] Drug Allergy 6 Rash [facility] Work Phone: (8 sources) ARTHRITIS MEDICATION; Translations: [ARTHRITIS MEDICATION] allergy to substance 7 rash [facility] Work Phone: (20 sources) atorvastatin; Translations: [ATORVASTATIN] Drug Allergy 8 Unknown [facility] (20 sources) Glucosamine; Translations: [GLUCOSAMINE] Drug Allergy 7 Unknown [facility] Work Phone: (4 sources) HMG-CoA reductase inhibitor; Translations: [GLRGNAJ-FEB-ABM REDUCTASE INHIBITORS] Drug Intolerance 5 Other: See Comments [facility] Work Phone: (20 sources) Pravastatin; Translations: [PRAVASTATIN] Drug Allergy 3 Other: See Comments [facility] Work Phone: (20 sources) rosuvastatin; Translations: [ROSUVASTATIN CALCIUM] Drug Allergy 3 Other: See Comments [facility] (20 sources) HMG-CoA reductase inhibitor Drug Intolerance 5 Other: See Comments [facility] Work Phone: (1 source) Naproxen; Translations: [naproxen] Drug Allergy [facility] (8 sources) rosuvastatin Drug Allergy 5 NEEDS FOLLOW-UP [facility] (8 sources) Zdfaotw-Phe-Dwu Reductase Inhibitor Propensity to adverse reactions 5 NEEDS FOLLOW-UP [facility] (1 source) atorvastatin Drug Allergy 5 [facility] (1 source) Glucosamine Drug Allergy 5 [facility] (1 source) Pravastatin Drug Allergy 5 [facility] (1 source) rosuvastatin Drug Allergy 5 [facility] (1 source) Lwiywum-Ifr-Tjy Reductase Inhibitor Drug allergy (disorder) 5 [facility] Medications Current Medications Medication Drug [...] Anti-inflammatory Drug Start: 05-28-2023 End: 08-20-2024 [facility] Aspirin 81 mg oral tablet, (chewable) Dose : 81 mg = 1 tab(s), Oral, qDayM, # 90 tab(s), 4 Refill(s), Pharmacy: [facility], 172.7, cm, 05/24/23 21:25:00 EDT, Height, [...] qDay, # 90 tab(s), 4 Refill(s), Pharmacy: [facility], 172.7, cm, 05/24/23 21:25:00 EDT, Height, kg, 05/24/23 21:25:00 EDT, Dosing Weight Start Date: 05/28/23 Stop Date: 08/20/24 Status: Ordered Start: 12-30-2016 End: 02-16-2017 take 1 tablet by mouth once daily LIPITOR 80 MG TABS One tablet by mouth daily ATORVASTATIN CALCIUM [id number] Yu Joshi RN Blood-Glucose Meter (FREESTY LE [...] CH EW ad directed CALCIUM CARBONATE ANTACID [id number] Pat Greenfield PA-C calcium carbonate 1500 mg [...] BIDM, # 60 tab(s), 2 Refill(s), Pharmacy: [facility], 172.7, cm, 05/24/23 21:25:00 EDT, [...] TABS One tablet by mouth daily CHOLECALCIFEROL [id number] Pat Greenfield PA-C End: 01-30-2025 take 1 [...] kidney disease) stage 4, GFR 15-29 ml/min ([facility]) Take 0.5 tablets by mouth once daily. 45 tablet 3 09/26/2024 Active Start: 05-28-2023 End: 08-26-2023 losartan 25 mg oral tablet D ose : 25 mg = 1 tab(s), Oral, qDay, # 30 tab(s), 2 Refill(s), Pharmacy: [facility], 172.7, cm, 05/24/23 21:25:00 EDT, Height, kg, 05/24/23 21:25:00 EDT, Dosing Weight Start Date: 05/28/23 Stop Date: 08/26/23 Status: Ordered Start: 10-26-2019 End: 09-26-2023 take 1 tablet by mouth once daily losartan (COZAAR) 50 mg tablet Indications: CKD (chronic kidney disease) stage 4, GFR 15-29 ml/min ([facility]) Take 1 tablet by mouth once daily. [...] 3 Refill(s) Start Date: 07/03/13 Status: Ordered Brentwood-3 1000 mg oral capsule (1 source) Start: 10-12-2022 take 1 capsule by mouth once daily Brentwood-3 1000 mg oral capsule mg = cap(s), [...] One tablet by mouth daily POTASSIUM CHLORIDE [id number] Pat Grenefield PA-C Start: 12-24-2016 End: 06-16-2021 take 1 [...] on above: Take 2 tablets by mo [facility] once daily for 5 days. pyridostigmine bromide 60 mg oral tablet (8 sources) Start: 02-27-2025 End: 03-18-2025 pyridostigmine (MESTINON) 60 mg tablet Take a half tablet three times a day with food. Please cut pills for patient prior to supervisor opening and picking. 45 tablet 2 03/18/2025 Active [facility] pyridostigmine (MESTINON) 60 mg [...] on above: Take 1 capsule by mo [facility]. vitamin b12 5 mg oral [...] Comment on above: Take 1 capsule by [facility] three times daily as needed for cough. calcium (4 sources) Phosphate Binder, Calcium Start: 01-18-2017 take 1 tablet by mouth once daily CALCIUM 500 MG TABS One tablet by mouth daily CALCIUM [id number] Pat Greenfield PA-C calcium carbonate / vitamin D (8 sources) Start: 12-30-2016 take 1 tablet by mouth once daily CALTRATE 600+D 600-400 MG-UNIT TABS One tablet by mouth daily CALCIUM CARBONATE-VITAMIN D [id number] Yu Joshi RN Start: 12-30-2016 End: 01-18-2017 take 1 tablet by mouth once daily CALTRATE 600+D 600-400 MG-UNIT TABS One tablet by mouth daily CALCIUM CARBONATE-VITAMIN D [id number] Pat Greenfield PA-C codeine phosphate 2 mg/ml [...] One tablet by mouth daily COENZYME Q10 [id number] Nolan Triana MD colchicine 0.6 mg oral [...] release oral capsule (20 sources) Calcium Channel Amrita Start: 11-23-2018 End: [...] TABS One tablet by mouth daily EZETIMIBE [id number] Pat Greenfield PA-C famotidine 20 mg oral [...] One tablet by mouth daily MULTIPLE VITAMINS-MINERALS [id number] Nolan Triana MD ONE DAILY MULTI-VITAMIN ORAL [...] 10 mL injection (DEFINITY) polyethylene glycol 3350 023991 mg / potassium chloride 2970 mg / sodium bicarbonate 6740 mg / sodium chloride 5860 mg / sodium sulfate 42290 mg powder for oral solution (1 source) [...] T abel as directed POLYETHYLENE GLYCOL 3350 [id number] Yu Joshi RN Start: 12-30-2016 End: 01-18-2017 MIRALAX PACK Take as directe d POLYETHYLENE GLYCOL 3350 [id number] Pat Greenfield PA-C raNITIdine 150 mg oral [...] One tablet by mouth daily TAMSULOSIN HCL [id number] Pat Greenfield PA-C ticagrelor 90 mg oral tablet (12 sources) Start: 12-30-2016 End: 02-16-2017 take 1 tablet by mouth twice daily BRILINTA 90 MG TABS One tablet by mouth twice daily TICAGRELOR [id number] Yu Joshi RN TRUE METRIX GLUCOSE METER [...] Start: 11-23-2018 take 1 capsule by mo [facility] once daily Turmeric Root [...] disease (20 sources) Atherosclerotic heart disease of kaw coronary artery without angina pectoris; Translations: [Angina [...] PCI-DAVID-RCA 3.50 x 16 mm Synergy 12/20/16; BPO-YNK-Trig LCX 2.0 x 20 mm Promus Synergy [...] unspecified] 03-25-2005 Chronic Other aftercare (1 source) tank terminal gauger (current) use of systemic steroids; Translations: [senior care (current) use of systemic steroids] Onset: 5 [...] (4 sources) Long-term drug therapy; Translations: [Other technician terminal and repeater (current) drug therapy] Onset: 7 12-30-2016 Unclassified [...] 03-29-2024 03-26-2024 Episodic Other aftercare (2 sources) tank terminal gauger (current) use of insulin; Translations: [Controlled type [...] Test Name Value Interpretation Reference Range [facility] Letter Text Normal [facility] CNOVon 05-09-2025 CNOV Office Visit (FAMPWS ) -- ALEJO GAGE ([id number]) 1940 M Date Time Provider Department 05/09/25 10:00 AM CONY CHENG During your visit today, we recorded the following information about you: Pulse Respiration Blood pressure Weight 91/minute 16/minute 94/56 73.5 kg Cony Cheng APRN.WATER ATTENDANT 05/09/2025 10:46 AM Signed This is a [...] has an upcoming appointment with Dr. Hoyt's [employer] next month. Myasthenia Gravis: - Currently managed with prednisone 30 mg daily x1 month. - Taking additional medication for MG. Prostate Cancer: - History of prostate cancer with prostatectomy performed. - No recent follow-up with urology; last PSA levels were reportedly normal. [facility] review: Dementia This is not mentioned in his neurology visits, only cerebral microvascular disease. This provider is unable to verify diagnosis of this at this time, appears to have been added by a Eli Lauren in [facility] 2023 but unable to find connection. 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 Last EKG for cc May 2024 doesn't mention this. Sees cardiology at [facility], last seen to reestablish care 01/15. Has [...] Xience stent to L circumflex EGD 04/26/[address] [facility] [address] Nolan Triana EGD 05/23/2024 EGD TRANSORAL BIOPSY SINGLE/MULTIPLE 07/10/2007 PAST SURGICAL HISTORY OF 01/26/2008 stent placement ramus and prox ramus PAST SURGICAL HISTORY OF heart stents PROSTATECTOMY PERINEAL RADICAL 2000 Prostatectomy, radical- Dr. 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 Yousif Triana; next screening colonoscopy in 10yrs, [facility] UNLISTED DIAGNOSTIC GASTROENTEROLOGY PROCEDURE 06/06/2018 ALLERGIES Atorvastatin, Crestor [Rosuvastatin Calcium], Glucosamine, Motrin [Ibuprofen], Pravastatin, and Xdggggy-Dzo-Nwe Reductase Inhibitors MEDICATIONS Current Outpatient Medications Medication [...] administration according (more content not included)... Normal [facility] ALEJO GAGE ([id number]) 1940 M Date Time Provider Department 05/08/25 [...] - Other: See Comments Comments: muscle aches PDNSFKG-KGH-VML REDUCTASE INHIBIT*10/09/2014 14 - Other: See Comments [...] 500 mLRfl: 0 CT CHEST W IVCON [[id number]] Order #: [id number] FUTURE [] iv contrast (will be provided [...] Please cut pills for patient prior to supervisor opening and picking. - amoxicillin-clavulanate potassium (AUGMENTIN) 875-125 mg per [...] Units subcutaneously daily at bedtime. - Insulin Brighton, Disposable, (BD ULTRA-FINE BENNY PEN NEEDLE) 32 gauge x 5/32 Use once daily with Lantus as directed - diclofenac sodium (VOLTAREN) 1 % topical gel Apply 2 g to affected area four times daily. - Blood-Glucose Meter (FREESTYLE LITE METER) monitoring kit (more content not included)... Normal [facility]29[facility]20[facility] FRANKYALEJO Jordan ([id number]) 1940 M Date Time Provider Department 04/29/25 ANGELICA SWANN NENDMN During your visit today, we recorded the following information about you: Angelica Swann RN 04/29/2025 1:28 PM Signed Received call from pt He reports he is now on 20 mg prednisone and feels OK Asking for further taper instructions as his blood glucoses still high Also asking about rituxan infusion PA in [facility] states no PA needed He has number to [facility] He will call to schedule Question if just a one time or q 6 months as order states Was supposed to hear from Dr Lacy regarding closer neurologist and he hasn't Asking also if Dr Lacy reached out to his PCP regarding findings on CT scan Angelica Swann [employer] [facility] Manuela Lacy MD 04/30/2025 8:11 AM Signed Please call back to let him know: 1) Closest neuromuscular neurologist is Dr. Brett Gomez in [facility]. Dr. Gomez is aware of patient's request for transfer of care. Patient can call [phone] to make an appointment with Dr. Gomez. 2) If by feels OK he means he is not having MG symptoms, then he can decrease the prednisone to 15 mg for 4 weeks, then 10 mg for 4 weeks. I'll send a prescription for 5 mg tablets to the [facility]. Thanks! Santa Skinner 05/02/2025 2:48 PM Signed [...] - Other: See Comments Comments: muscle aches TPLADOJ-JON-PMA REDUCTASE INHIBIT*10/09/2014 14 - Other: See Comments [...] Please cut pills for patient prior to supervisor opening and picking. - cyanocobalamin (B-12 DOTS) 500 mcg tablet [...] Units subcutaneously daily at bedtime. - Insulin Brighton, Disposable, (BD ULTRA-FINE BENNY PEN NEEDLE) 32 [...] TUNNEL SYNDRO (more content not included)... Normal [facility] CNOVon 04-15-2025 CNOV Office Visit (NENMMN ) -- MALCUIT,ALEJO H ([id number]) 1940 M Date Time Provider Department 04/15/25 [...] reassess symptoms and medication tolerance. Recording using [employer] software for draft documentation of the visit was discussed with the patient/authorized patient account representative; all questions welcomed and answered. 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 He expresses concern about maintaining finger dexterity [...] 5 5 (more content not included)... Normal [facility] CT CHEST WO IVCONon 04-05-[address] CHEST WO IVCON * * *Final Report* * * DATE OF EXAM: Apr 05 2025 1:57PM [facility] 0541 - CT CHEST WO IVCON / [...] recommended Time Frame: N/A --END OF FINDING-- Dissolver Operator: JASON Transcribe Date/Time: Apr 08 2025 5:03A Dictated by : ROSARIO AVELAR MD This examination was interpreted and the report reviewed and electronically signed by: ROSARIO AVELAR MD on Apr 08 2025 5:07AM EST [id number] ACTIONABLE Invalid Interpretation Code [facility] CNOVon 04-02-2025 CNOV Office Visit (FAMPWS ) -- ALEJO GAGE ([id number]) 1940 M Date Time Provider Department 04/02/25 2:40 PM [facility] During your visit today, we recorded [...] Xience stent to L circumflex EGD 04/26/[address] [facility] [address] Nolan Triana EGD 05/23/2024 EGD [...] 10yrs, Cohen (more content not included)... Normal [facility] Anion gap in Serum or Plasma Ordered By: Marcial Monae on 03-26-2025 Anion gap [Moles/Vol] 13 mmol/L 5-15 [facility] BUN/creatinine ratioOrdered By: Marcial Monae on 03-26-2025 Urea nitrogen/Creatinine [Mass ratio] 19.6 mg/mg 10-20 [facility] Bilirubin Test strip Ql (U)O rdered By: Marcial Monae on 03-26-2025 Bilirubin Ql (U) Negative Negative [facility] Bilirubin, totalOrdered By: Marcial Monae on 03-26-2025 Bilirubin [Mass/Vol] 0.42 mg/dL 0.00-1.30 [facility] Carbon dioxide, total [Moles /volume] in Central venous bloodOrdered By: Marcial Monae on 03-26-2025 CO2 [Moles/Vol] 24.7 mmol/L 21.0-32.0 [facility] Chloride assayOrdered By: Pepe Monae on 03-26-2025 Chloride [Moles/Vol] 103 mmol/L 98-108 [facility] Comprehensive Metabolic Prof ilon 03-26-2025 Albumin [Mass/Vol] 4.0 g/dL Normal 3.4-4.8 [facility] Comment on above: Performed By: #### L 500.4050, L503.7505, L500.4100 #### [facility] [address] [place], [address] Albumin/Globulin [Mass ratio] 1.5 {ratio} Normal 0.9-2.4 [facility] Comment on above: Performed By: #### L 500.4050, L503.7505, L500.4100 #### [facility] [address] [place], [address] ALK PHOS 113 U/L Normal 40-129 [facility] Comment on above: Performed By: #### L 500.4050, L503.7505, L500.4100 #### [facility] [address] [place], [address] ALT [Catalytic activity/Vol] 14 U/L Normal <=46 [facility] Comment on above: Performed By: #### L 500.4050, L503.7505, L500.4100 #### [facility] [address] [place], [address] AST [Catalytic activity/Vol] 15 U/L Normal <=37 [facility] Comment on above: Performed By: #### L 500.4050, L503.7505, L500.4100 #### [facility] [address] [place], [address] Bilirubin [Mass/Vol] 0.42 mg/dL Normal 0.00-1.30 [facility] Comment on above: Performed By: #### L 500.4050, L503.7505, L500.4100 #### [facility] [address] [place], [address] BUN/CRE 19.6 RATIO Normal 10-20 [facility] Comment on above: Performed By: #### L 500.4050, L503.7505, L500.4100 #### [facility] [address] [place], [address] Calcium [Mass/Vol] 9.3 mg/dL Normal 7.6-11.0 [facility] Comment on above: Performed By: #### L 500.4050, L503.7505, L500.4100 #### [facility] [address] [place], [address] Chloride [Moles/Vol] 103 mmol/L Normal 98-108 [facility] Comment on above: Performed By: #### L 500.4050, L503.7505, L500.4100 #### [facility] [address] [place], [address] CO2 [Moles/Vol] 24.7 mmol/L Normal 21.0-32.0 [facility] Comment on above: Performed By: #### L 500.4050, L503.7505, L500.4100 #### [facility] [address] [place], [address] Creatinine [Mass/Vol] 1.68 mg/dL High 0.70-1.20 [facility] Comment on above: Performed By: #### L 500.4050, L503.7505, L500.4100 #### [facility] [address] [place], [address] GAP 13 Normal 5-15 [facility] Comment on above: Performed By: #### L 500.4050, L503.7505, L500.4100 #### [facility] [address] [place], [address] GFR/1.73 sq M.predicted among non-blacks MDRD (S/P/Bld) [Vol rate/Area] 40 mL/min/{1.73_m2} Low >60 [facility] Comment on above: Result Comment: mL/m in/1.73m2 CKD-EPI Creatinine Equation (2020) Performed By: #### L 500.4050, L503.7505, L500.4100 #### [facility] [address] [place], [address] Globulin (S) [Mass/Vol] 2.8 g/dL Normal 2.2-4.2 [facility] Comment on above: Performed By: #### L 500.4050, L503.7505, L500.4100 #### [facility] [address] [place], [address] Glucose [Mass/Vol] 127 mg/dL High 70-99 [facility] Comment on above: Performed By: #### L 500.4050, L503.7505, L500.4100 #### [facility] [address] [place], [address] Potassium [Moles/Vol] 4.4 mmol/L Normal 3.3-5.1 [facility] Comment on above: Performed By: #### L 500.4050, L503.7505, L500.4100 #### [facility] [address] [place], [address] Sodium [Moles/Vol] 141 mmol/L Normal 133-145 [facility] Comment on above: Performed By: #### L 500.4050, L503.7505, L500.4100 #### [facility] [address] [place], [address] T PROT 6.8 g/dL Normal 5.9-8.4 [facility] Comment on above: Performed By: #### L 500.4050, L503.7505, L500.4100 #### [facility] [address] [place], [address] Urea nitrogen [Mass/Vol] 33 mg/dL High 4-19 [facility] Comment on above: Performed By: #### L 500.4050, L503.7505, L500.4100 #### [facility] [address] [place], [address] Glomerular filtration rate ( GFR) estimation/1.73 sq m using serum, plasma, or whole bOrdered By: Marcial Monae on 03-26-2025 GFR/1.73 sq M.predicted among non-blacks MDRD (S/P/Bld) [Vol rate/Area] 40 mL/min/{1.73_m2} Low >60 [facility] Comment on above: mL/min/1.73m2 CKD-EP I Creatinine Equation (2020) Ketones Test strip Ql (U)Ord ered By: Marcial Monae on 03-26-2025 Ketones Ql (U) Negative Negative [facility] - Chemistry and C hemistry - challengeOrdered By: Marcial Monae on 03-26-2025 AST [Catalytic activity/Vol] 15 U/L <38 [facility] Potassium measurement (mass/ volume)Ordered By: Marcial Monae on 03-26-2025 Potassium (Unsp spec) [Mass/Vol] 4.4 mmol/L 3.3-5.1 [facility] Protein Test strip Ql (U)Ord ered By: Marcial Monae on 03-26-2025 Protein Ql (U) 30 mg/dl High Negative [facility] Serum creatinine measurement (mass/volume)Ordered By: Marcial Monae on 03-26-2025 Creatinine [Mass/Vol] 1.68 mg/dL High 0.70-1.20 [facility] Serum globulin measurementOr dered By: Marcial Monae on 03-26-2025 Globulin (S) [Mass/Vol] 2.8 g/dL 2.2-4.2 [facility] Serum glucose measurement (m ass/volume)Ordered By: Marcial Monae on 03-26-2025 Glucose [Mass/Vol] 127 mg/dL High 70-99 [facility] Serum or plasma alanine regalado otransferase (ALT) measurementOrdered By: Marcial Monae on 03-26-2025 ALT [Catalytic activity/Vol] 14 U/L <47 [facility] Serum or plasma albumin waldemar urement (mass/volume)Ordered By: Marcial Monae on 03-26-2025 Albumin [Mass/Vol] 4.0 g/dL 3.4-4.8 [facility] Serum or plasma albumin/glob ulin mass ratioOrdered By: Marcial Monae on 03-26-2025 Albumin/Globulin [Mass ratio] 1.5 {ratio} 0.9-2.4 [facility] Serum or plasma alkaline garret sphatase measurementOrdered By: Marcial Monae on 03-26-2025 ALP [Catalytic activity/Vol] 113 U/L 40-129 [facility] Serum or plasma calcium waldemar urement (mass/volume)Ordered By: Marcial Monae on 03-26-2025 Calcium [Mass/Vol] 9.3 mg/dL 7.6-11.0 [facility] Serum or plasma urea nitroge n measurement (mass/volume)Ordered By: Marcial Monae on 03-26-2025 Urea nitrogen [Mass/Vol] 33 mg/dL High 4-19 [facility] Sodium levelOrdered By: Adam Monae on 03-26-2025 Sodium [Moles/Vol] 141 mmol/L 133-145 [facility] Total proteinOrdered By: Aric Monae on 03-26-2025 Protein [Mass/Vol] 6.8 g/dL 5.9-8.4 [facility] Urinalysis, Routine (Dipstic k)on 03-26-2025 BILIRUBIN URINE Negative Normal Negative [facility] Comment on above: Order Comment: Urine , Random Performed By: #### L 500.4050, L4 #### [facility] [address] [place], [address] GLUCOSE, UR Normal Normal Normal [facility] Comment on above: Order Comment: Urine , Random Performed By: #### L 500.405, L4 #### [facility] [address] [place], [address] KETONE UR Negative Normal Negative [facility] Comment on above: Order Comment: Urine , Random Performed By: #### L 500.405, L4 #### [facility] [address] [place], [address] LEUK ESTERASE Negative Normal Negative [facility] Comment on above: Order Comment: Urine , Random Performed By: #### L 500.405, L4 #### [facility] [address] [place], [address] OCCULT BLOOD-UR 10 /ul Abnormal Negative [facility] Comment on above: Order Comment: Urine , Random Performed By: #### L 500.405, L4 #### [facility] [address] [place], [address] pH UR 6.5 Normal 5.0 - 8.0 [facility] Comment on above: Order Comment: Urine , Random Performed By: #### L 500.4050, L400 #### [facility] [address] [place], [address] PROT DIPSTX 30 mg/dl Abnormal Negative [facility] Comment on above: Order Comment: Urine , Random Performed By: #### L 500.4050, L4 #### [facility] [address] [place], [address] SP.GR. DIPSTX 1.010 Normal 1.002-1.030 [facility] Comment on above: Order Comment: Urine , Random Performed By: #### L 500.4050, L400.2010 #### [facility] [address] [place], [address] UROBILI Normal Normal Normal [facility] Comment on above: Order Comment: Urine , Random Performed By: #### L 500.4050, L400.2010 #### [facility] [address] [place], [address] Urine clarityOrdered By: Aric Monae on 03-26-2025 Clarity (U) Sl. Cloudy Normal Clear [facility] Comment on above: Order Comment: Urine , Random Performed By: #### L 500.405, L4.2010 #### [facility] [address] [place], [address] Urine color determinationOrd ered By: Marcial Monae on 03-26-2025 Color (U) Yellow Normal Yellow [facility] Comment on above: Order Comment: Urine , Random Performed By: #### L 500.4050, L400.2010 #### [facility] [address] [place], [address] Urine glucose detectionOrder ed By: Marcial Monae on 03-26-2025 Glucose Ql (U) Normal mg/dl Normal [facility] Urine leukocyte esterase det ection by dipstickOrdered By: Marcial Monae on 03-26-2025 Leukocyte esterase Test strip Ql (U) Negative Negative [facility] Urine nitrite test by dipsti ckOrdered By: Marcial Monae on 03-26-2025 Nitrite Ql (U) Negative Normal Negative [facility] Comment on above: Order Comment: Urine , Random Performed By: #### L 500.4050, L400.2010 #### [facility] [address] [place], [address] Urine pHOrdered By: Marcialsamra Monae on 03-26-2025 pH (U) 6.5 [pH] 5.0 - 8.0 [facility] Urine specific gravity measu rementOrdered By: [facility] on 03-26-2025 Specific gravity (U) [Rel density] 1.010 1.002-1.030 [facility] Urine urobilinogen measureme ntOrdered By: Marcial [facility] Urobilinogen Ql (U) Normal mg/dl Normal [facility] 25(OH)D3 SerPl-mCncon 2024 25-hydroxyvitamin D3 [Mass/Vol] 78.9 ng/mL Normal 31.0-80.0 [facility] Comment on above: Order Comment: Speci men Type: BLOOD SPECIMENOrdering Facility: [facility] Address: [address] [place] [address] Performed By: #### 1 989-3 ####[facility] [id number] [place] [address] [place] ALBUMIN/CREATININE RATIO, UR INEon 03-25-2025 Albumin DL <= 20 mg/L (U) [Mass/Vol] mg/dL Normal [facility] Comment on above: Order Comment: Speci men Type: URINE SPECIMENOrdering Facility: [facility] Address: [address] [place] [address] Performed By: #### U ACR ####[facility] [id number] [place] [address] [place] Albumin/Creatinine (U) [Mass ratio] <17 Normal <30 [facility] Comment on above: Order Comment: Speci men Type: URINE SPECIMENOrdering Facility: [facility] Address: [address] [place] [address] Result Comment: Adul t Male and Female Nephrotic Criteria: <30 mg/g is considered normal to mildly increased 30-300 mg/g is considered moderately increased >300 mg/g is considered severely increased KDIGO. (2013). KDIGO 2012 Clinical Practice Guideline for the Evaluation and Management of Chronic Kidney Disease. Official Journal of the International Society of Nephrology, 3(1), 1-150. Performed By: #### U ACR ####[facility] [id number] [address] [place] [address] [place] Creatinine (U) [Mass/Vol] 70.8 mg/dL Normal 20.0-300.0 [facility] Comment on above: Order Comment: Speci men Type: URINE SPECIMENOrdering Facility: [facility] Address: [address] [place] [address] Performed By: #### U ACR ####[facility] [id number] [address] [place] [address] [place] CBC panel Auto (Bld)on 03-25 Erythrocyte distribution width (RBC) [Ratio] 17.1 % High 11.5-15.0 [facility] Comment on above: Order Comment: Speci men Type: BLOOD SPECIMENOrdering Facility: [facility] Address: [address] [place] [address] Performed By: #### 5 8410-2 ####[facility] [id number] [address] [address] [place] Hematocrit (Bld) [Volume fraction] 37.9 % Low 39.0-51.0 [facility] Comment on above: Order Comment: Speci men Type: BLOOD SPECIMENOrdering Facility: [facility] Address: [address] [place] [address] Performed By: #### 5 8410-2 ####[facility] [id number] [address] [address] [place] Hemoglobin (Bld) [Mass/Vol] 11.9 g/dL Low 13.0-17.0 [facility] Comment on above: Order Comment: Speci men Type: BLOOD SPECIMENOrdering Facility: [facility] Address: [address] [place] [address] Performed By: #### 5 8410-2 ####[facility] [id number] [place] [address] [place] MCH (RBC) [Entitic mass] 27.1 pg Normal 26.0-34.0 [facility] Comment on above: Order Comment: Speci men Type: BLOOD SPECIMENOrdering Facility: [facility] Address: [address] [place] [address] Performed By: #### 5 8410-2 ####[facility] [id number] [place] [address] [place] MCHC (RBC) [Mass/Vol] 31.4 g/dL Normal 30.5-36.0 [facility] Comment on above: Order Comment: Speci men Type: BLOOD SPECIMENOrdering Facility: [facility] Address: [address] [place] [address] Performed By: #### 5 8410-2 ####[facility] [id number] [place] [address] [place] MCV (RBC) [Entitic vol] 86.3 fL Normal 80.0-100.0 [facility] Comment on above: Order Comment: Speci men Type: BLOOD SPECIMENOrdering Facility: [facility] Address: [address] [place] [address] Performed By: #### 5 8410-2 ####[facility] [id number] [place] [address] [place] Nucleated RBC (Bld) [#/Vol] 10*3/uL Normal <0.01 [facility] Comment on above: Order Comment: Speci men Type: BLOOD SPECIMENOrdering Facility: [facility] Address: [address] [place] [address] Performed By: #### 5 8410-2 ####[facility] [id number] [place] [address] [place] Platelet mean volume (Bld) [Entitic vol] 10.1 fL Normal 9.0-12.7 [facility] Comment on above: Order Comment: Speci men Type: BLOOD SPECIMENOrdering Facility: [facility] Address: [address] [place] [address] Performed By: #### 5 8410-2 ####[facility] [id number] [place] [address] [place] Platelets (Bld) [#/Vol] 360 10*3/uL Normal 150-400 [facility] Comment on above: Order Comment: Speci men Type: BLOOD SPECIMENOrdering Facility: [facility] Address: [address] [place] [address] Performed By: #### 5 8410-2 ####[facility] [id number] [place] [address] [place] RBC (Bld) [#/Vol] 4.39 10*6/uL Normal 4.20-6.00 [facility] Comment on above: Order Comment: Speci men Type: BLOOD SPECIMENOrdering Facility: [facility] Address: [address] [place] [address] Performed By: #### 5 8410-2 ####[facility] [id number] [place] [address] [place] WBC (Bld) [#/Vol] 14.85 10*3/uL High 3.70-11.00 [facility] Comment on above: Order Comment: Speci men Type: BLOOD SPECIMENOrdering Facility: [facility] Address: [address] [place] [address] Performed By: #### 5 8410-2 ####[facility] [id number] [place] [id number] [place] Comprehensive metabolic 2000 panelon 03-25-2025 Albumin [Mass/Vol] 3.9 g/dL Normal 3.9-4.9 [facility] Comment on above: Order Comment: Speci men Type: BLOOD SPECIMENOrdering Facility: [facility] Address: [address] [place] [address] Performed By: #### 2 4323-8, 34558-3, 59863-9, ####[facility] [id number] [place] [id number] [place] ALP [Catalytic activity/Vol] 100 U/L Normal 38-113 [facility] Comment on above: Order Comment: Speci men Type: BLOOD SPECIMENOrdering Facility: [facility] Address: [address] [place] [address] Performed By: #### 2 4323-8, 52640-6, 82811-4, ####[facility] [id number] [place] [address] [place] ALT [Catalytic activity/Vol] 12 U/L Normal 10-54 [facility] Comment on above: Order Comment: Speci men Type: BLOOD SPECIMENOrdering Facility: [facility] Address: [address] [place] [address] Performed By: #### 2 4323-8, 99150-1, 22176-7, ####[facility] [id number] [place] [id number] [place] Anion gap [Moles/Vol] 13 mmol/L Normal 8-15 [facility] Comment on above: Order Comment: Speci men Type: BLOOD SPECIMENOrdering Facility: [facility] Address: [address] [place] [address] Performed By: #### 2 4323-8, 02561-0, 93984-0, ####[facility] [id number] [address] [address] [place] AST [Catalytic activity/Vol] 17 U/L Normal 14-40 [facility] Comment on above: Order Comment: Speci men Type: BLOOD SPECIMENOrdering Facility: [facility] Address: [address] [place] [address] Performed By: #### 2 4323-8, 98410-9, 85399-3, ####[facility] [id number] [facility] [address] [address] [place] Bilirubin [Mass/Vol] 0.3 mg/dL Normal 0.2-1.3 [facility] Comment on above: Order Comment: Speci men Type: BLOOD SPECIMENOrdering Facility: [facility] Address: [address] [place] [address] Performed By: #### 2 4323-8, 30298-9, 12082-6, ####[facility] [id number] [place] [id number] [place] Calcium [Mass/Vol] 9.3 mg/dL Normal 8.5-10.2 [facility] Comment on above: Order Comment: Speci men Type: BLOOD SPECIMENOrdering Facility: [facility] Address: [address] [place] [address] Performed By: #### 2 4323-8, 73816-1, , ####[facility] [id number] [address] [address] [place] Chloride [Moles/Vol] 105 mmol/L Normal 98-107 [facility] Comment on above: Order Comment: Speci men Type: BLOOD SPECIMENOrdering Facility: [facility] Address: [address] [place] [address] Performed By: #### 2 4323-8, 28391-7, 07325-7, ####[facility] [id number] [facility] [address] [address] [place] CO2 [Moles/Vol] 24 mmol/L Normal 22-30 [facility] Comment on above: Order Comment: Speci men Type: BLOOD SPECIMENOrdering Facility: [facility] Address: [address] [place] [address] Performed By: #### 2 4323-8, 50457-9, 31871-1, ####[facility] [id number] [address] [address] [place] Creatinine [Mass/Vol] 1.71 mg/dL High 0.73-1.22 [facility] Comment on above: Order Comment: Speci men Type: BLOOD SPECIMENOrdering Facility: [facility] Address: [address] [place] [address] Performed By: #### 2 4323-8, 10780-5, 42239-0, ####[facility] [id number] [place] [id number] [place] eGFRcr SerPlBld CKD-EPI 2020 39 mL/min/1.73m??? Low >=60 [facility] Comment on above: Order Comment: Speci men Type: BLOOD SPECIMENOrdering Facility: [facility] Address: [address] [place] [address] Result Comment: Jeanette mated Glomerular Filtration Rate [...] actual GFR. Performed By: #### 2 4323-8, 08347-7, 49340-7, ####[facility] [id number] [address] [address] [place] Glucose [Mass/Vol] 74 mg/dL Normal 74-99 [facility] Comment on above: Order Comment: Speci men Type: BLOOD SPECIMENOrdering Facility: [facility] Address: [address] [place] [address] [place] [id number] Result Comment: The [place] Diabetes Association (ADA) provides guidance for cutoff [...] Standards of Medical Care in Diabetes 2016, [place] Diabetes Association. Diabetes Care. 2016.39(Suppl 1). Performed By: #### 2 4323-8, 60464-7, 12046-8, ####[facility] [id number] [place] [address] [place] Potassium [Moles/Vol] 4.4 mmol/L Normal 3.7-5.1 [facility] Comment on above: Order Comment: Speci men Type: BLOOD SPECIMENOrdering Facility: [facility] Address: [address] [place] [id number] Performed By: #### 2 4323-8, 65136-5, , ####[facility] [id number] [place] [id number] [place] Protein [Mass/Vol] 6.7 g/dL Normal 6.3-8.0 [facility] Comment on above: Order Comment: Speci men Type: BLOOD SPECIMENOrdering Facility: [facility] Address: [address] [place] [id number] Performed By: #### 2 4323-8, 83975-9, , ####[facility] [id number] [place] [id number] [place] Sodium [Moles/Vol] 142 mmol/L Normal 136-144 [facility] Comment on above: Order Comment: Speci men Type: BLOOD SPECIMENOrdering Facility: [facility] Address: [address] [place] [address] Performed By: #### 2 4323-8, 09451-5, 85086-5, ####[facility] [id number] [address] [address] [place] Urea nitrogen [Mass/Vol] 32 mg/dL High 9-24 [facility] Comment on above: Order Comment: Speci men Type: BLOOD SPECIMENOrdering Facility: [facility] Address: [address] [place] [address] Performed By: #### 2 4323-8, 34950-7, 92509-2, ####[facility] [id number] [place] [address] [place] HbA1c (Bld)on 03-25-2025 Average glucose Estimated from glycated hemoglobin (Bld) [Mass/Vol] 128 mg/dL Normal [facility] Comment on above: Order Comment: Ryani men Type: BLOOD SPECIMENOrdering Facility: [facility] Address: [address] [place] [address] Result Comment: eAG: (Estimated average glucose) is a calculated value from HgbA1c and is patient account representative of the average blood glucose level in the last 2-3 month period. Performed By: #### 5 5454-3 ####[facility] [id number] [address] [address] [place] HbA1c (Bld) [Mass fraction] 6.1 % High 4.3-5.6 [facility] Comment on above: Order Comment: Cyndy men Type: BLOOD SPECIMENOrdering Facility: [facility] Address: [address] [place] [address] Result Comment: Amer [place] Diabetes Association guidelines indicate that patients with HgbA1c in the range 5.7-6.4% are at increased risk for development of diabetes, and intervention by lifestyle modification may be beneficial. HgbA1c greater or equal to 6.5% is considered diagnostic of diabetes. Performed By: #### 5 5454-3 ####[facility] [id number] [place] [id number] [place] Iron and Iron binding capaci ty panelon 03-25-2025 Iron [Mass/Vol] 32 ug/dL Low 41-186 [facility] Comment on above: Order Comment: Speci men Type: BLOOD SPECIMENOrdering Facility: [facility] Address: [address] [place] [address] Performed By: #### 2 4323-8, 25709-9, 27416-1, 61345-4 ####[facility] [id number] [address] STATES OF [facility] Iron binding capacity [Mass/Vol] 374 ug/dL Normal 232-386 [facility] Comment on above: Order Comment: Speci men Type: BLOOD SPECIMENOrdering Facility: [facility] Address: [address] [place] [address] Performed By: #### 2 4323-8, 86451-9, 63426-6, 46346-1 ####[facility] [id number] [place] [id number] [place] Iron/TIBC [Molar ratio] 8.6 % Low 15.0-57.0 [facility] Comment on above: Order Comment: Speci men Type: BLOOD SPECIMENOrdering Facility: [facility] Address: [address] [place] [address] Performed By: #### 2 4323-8, 23261-0, 10269-4, 08590-4 ####[facility] [id number] [place] [id number] [place] Lipid 1996 panelon 5 Cholesterol [Mass/Vol] 201 mg/dL High <200 [facility] Comment on above: Order Comment: Speci men Type: BLOOD SPECIMENOrdering Facility: [facility] Address: [address] [place] [address] Result Comment: <200 mg/dL, Desirable 200-239 mg/dL, Borderline high >239 mg/dL, High Performed By: #### 2 4323-8, 21757-1, 62007-8, ####[facility] [id number] [address] [address] [place] Cholesterol in HDL [Mass/Vol] 55 mg/dL Normal >39 [facility] Comment on above: Order Comment: Speci men Type: BLOOD SPECIMENOrdering Facility: [facility] Address: [address] [place] [address] Result Comment: 40-5 9 mg/dL, Acceptable >59 mg/dL, High: Negative risk factor for coronary heart disease <40 mg/dL, Low: Positive risk factor for coronary heart disease Performed By: #### 2 4323-8, 41647-8, , ####[facility] [id number] [address] [place] [address] [place] Cholesterol in LDL [Mass/Vol] 129 mg/dL High <100 [facility] Comment on above: Order Comment: Speci men Type: BLOOD SPECIMENOrdering Facility: [facility] Address: [address] [place] [address] Result Comment: <100 mg/dL, Optimal 100-129 mg/dL, Near optimal/above optimal 130-159 mg/dL, Borderline high 160-189 mg/dL, High >189 mg/dL, Very high Secondary prevention optimal LDL Cholesterol levels are recommended to be <70 mg/dL LDL cholesterol is calculated using the Stein-NIH equation. Performed By: #### 2 4323-8, 00852-3, 55824-9, ####[facility] [id number] [address] [place] [address] [place] Cholesterol in LDL/Cholesterol in HDL [Mass ratio] 2.35 {ratio} Normal <2.54 [facility] Comment on above: Order Comment: Speci men Type: BLOOD SPECIMENOrdering Facility: [facility] Address: [address] [place] [address] Result Comment: Alla patiño: 1. National Cholesterol Education Program ATP III Guideline At-A-Glance Quick Desk Reference: National Heart, Lung, and Blood [place]. National Institutes of Health. 2001: NIH Publication No. 01-3305. 2. An International Atherosclerosis Society position paper: global recommendations for the management of dyslipidemia: executive summary, Atherosclerosis. 2014: 232(2):410-413. Performed By: #### 2 4323-8, 18369-5, 67997-4, 77233-8 ####[facility] [id number] [place] [address] [place] Cholesterol in VLDL [Mass/Vol] 17 mg/dL Normal <30 [facility] Comment on above: Order Comment: Speci men Type: BLOOD SPECIMENOrdering Facility: [facility] Address: [address] [place] [address] Performed By: #### 2 4323-8, 27743-0, 62035-9, ####[facility] [id number] [place] [id number] [place] Cholesterol non HDL [Mass/Vol] 146 mg/dL High <130 [facility] Comment on above: Order Comment: Speci men Type: BLOOD SPECIMENOrdering Facility: [facility] Address: [address] [place] [address] Result Comment: <130 mg/dL, Optimal 130-159 mg/dL, Near optimal/above optimal 160-189 mg/dL, Borderline high 190-219 mg/dL, High >219 mg/dL, Very high Secondary prevention optimal non HDL Cholesterol levels are recommended to be <100 mg/dL Performed By: #### 2 4323-8, 89624-7, 71222-2, 26481-1 ####[facility] [id number] [address] [place] [address] [place] Cholesterol.total/Chol esterol in HDL [Mass ratio] 3.65 {ratio} Normal <5.10 [facility] Comment on above: Order Comment: Speci men Type: BLOOD SPECIMENOrdering Facility: [facility] Address: [address] [place] [address] Performed By: #### 2 4323-8, 91982-6, 33587-6, ####[facility] [id number] [place] [address] [place] FASTING TIME 12 hrs Normal [facility] Comment on above: Order Comment: Speci men Type: BLOOD SPECIMENOrdering Facility: [facility] Address: [address] [place] [address] Performed By: #### 2 4323-8, 04034-9, 92476-8, ####[facility] [id number] [place] [address] [place] Triglyceride [Mass/Vol] 96 mg/dL Normal <150 [facility] Comment on above: Order Comment: Speci men Type: BLOOD SPECIMENOrdering Facility: [facility] Address: [address] [place] [address] Result Comment: <150 mg/dL, Normal 150-199 mg/dL, Borderline high 200-499 mg/dL, High >499 mg/dL, Very high Performed By: #### 2 4323-8, 97708-9, 64288-3, ####[facility] [id number] [address] [address] [place] Magnesium SerPl-mCncon 03-25 Magnesium [Mass/Vol] 2.1 mg/dL Normal 1.7-2.3 [facility] Comment on above: Order Comment: Speci men Type: BLOOD SPECIMENOrdering Facility: [facility] Address: [address] [place] [address] Performed By: #### 2 4323-8, 86405-7, 11892-0, ####[facility] [id number] [place] [address] CNOVon 03-18-2025 CNOV Office Visit (NENMMN ) -- ALEJO GAGE ([id number]) 1940 M Date Time Provider Department 03/18/25 2:00 PM MANUELA LACY NENDMN During your visit today, we recorded the following information about you: Pulse Blood pressure Weight Height 68/minute 126/65 69.8 kg 1.727 m Manuela Lacy MD 03/19/2025 11:35 AM Signed Referring Physician: Jud Maguire [address] [facility] [address] Consultation requested by Jud Maguire PA-C for an opinion regarding myasthenia gravis. My final recommendations will be communicated back to the requesting physician by way of shared Medical record or letter to requesting physician via fax or [place] mail. Recording using [employer] software for draft documentation of the visit was discussed with the patient/authorized patient account representative; all questions welcomed and answered. Patient/authorized patient account representative agreed to proceed CC: myasthenia gravis [...] observed by Lala Godinez PA-C, at the [facility] in early January. He reports generalized muscle [...] family doctor, Dr. Samson Ragsdale, at the [facility]. He also reports chronic constipation and excessive [...] compatible w (more content not included)... Normal [facility] Modified Barium Swallow Stud [facility] 03-06-2025 Modified Barium Swallow Study [facility] Speech Pathology [address] [place] [address] Modified Barium Swallow Study MR#: [id number] Acct: [id number] Name: ALEJO GAGE Rep #: [id number] : 1940 84 From: Bebe Morales M.A. [facility]-OFFICE MACHINE TECHNICIAN Modified Barium Swallow Patient Information Study Date: 03/05/25 Study Time: 13:00 Direct Billable Minutes: 108 Total Minutes procedure reportin Diagnosis: Dysphagia R13.10 Referring Physician: Nolan Hoyt V Reason for Referral: Assess swallow function, assess risk for aspiration, and determine recommendations for any necessary dysphagia interventions. Medical History: In addition to PMH from EMR (below), the patient informed this OFFICE MACHINE TECHNICIAN w/ very recent diagnosis of myasthenia gravis, following w/ [facility] neurology. He was referred for this MBSS by his underground electrician due to pt reporting hx of swallowing difficulty for the past 2-3 months. He reports having trouble at every meal w/ solid foods, but especially w/ foods such as bread, steak, and eritrean fries. 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 Normal [facility] 02-28-2025 [facility] ALEJO GAGE ([id number]) 1940 M Date Time Provider Department 02/28/25 SAMSON RAGSDALE [facility] During your visit today, we recorded the following information about you: Jocelyne Dang 02/28/2025 11:45 AM Signed Pt came in to ask about if the Mestinon medication would be too hard on his kidney's ? I let him know that it was [facility] that prescribed this prescription. Please advise Anais Garcia LPN 02/28/2025 12:09 PM Signed Did request electronic PA and route to neuro pool. Gertrudis Mitchell 03/01/2025 1:30 PM Signed Patient stopped at front office director today wanting to talk with Dr. Ragsdale's [...] - Other: See Comments Comments: muscle aches TUCRQSI-TIE-NPI REDUCTASE INHIBIT*10/09/2014 14 - Other: See Comments [...] Units subcutaneously daily at bedtime. - Insulin Brighton, Disposable, (BD ULTRA-FINE BENNY PEN NEEDLE) 32 [...] when taken (more content not included)... Normal [facility] Cardiology Visit Reporton Cardiology Visit Report [facility] 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: No Accompanied by: Self Is patient in pain?: Yes Pain scale (1-10): 3 Allergies ibuprofen Allergy (Unknown, Unverified 02/21/25 11:29) NEEDS FOLLOW-UP pravastatin Allergy (Unknown, Verified 02/21/25 11:29) NEEDS FOLLOW-UP atorvastatin (From Lipitor) Allergy (Verified 02/21/25 11:29) Unknown glucosamine Allergy (Verified 02/21/25 11:29) Unknown rosuvastatin Adverse Reaction (Unknown, Verified 02/21/25 11:29) NEEDS FOLLOW-UP Jcpritx-UJR-NtL Reductase Inhibitor Adverse Reaction (Unknown, Verified 02/21/25 [...] you fallen in the past year?: [facility] 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 Normal [facility] ACETYLCHOLINE REC BINDING AB on 02-20-2025 ACETYLCHOLINE BINDING, QUAL Positive Abnormal Negative [facility] Comment on above: Order Comment: Speci men Type: BLOOD SPECIMENOrdering Facility: [facility] Address: [address] [place] [address] [place] [address] Result Comment: Anti -acetylcholine receptor binding antibody test is used as an aid in diagnosis of myasthenia gravis. A negative result cannot exclude myasthenia gravis. Clinical correlation is required. Performed By: #### A CHRAB ####[facility] [id number] [place] [address] [place] Acetylcholine receptor binding Ab (S) [Moles/Vol] 11.84 nmol/L High <0.21 [facility] Comment on above: Order Comment: Speci men Type: BLOOD SPECIMENOrdering Facility: [facility] Address: [address] [place] [address] Performed By: #### A CHRAB ####[facility] [id number] [place] [address] [place] ACETYLCHOLINE REC BLOCKING A Bon 02-20-2025 ACETYLCHOLINE BLOCKING, QUAL Positive Abnormal Negative [facility] Comment on above: Order Comment: Speci men Type: BLOOD SPECIMENOrdering Facility: [facility] Address: [address] [place] [address] Result Comment: Anti -acetylcholine receptor blocking antibody test is used as an aid in diagnosis of myasthenia gravis. A negative result cannot exclude myasthenia gravis. Clinical correlation is required. Performed By: #### A CEBAB ####[facility] [id number] [place] [address] [place] Acetylcholine receptor blocking Ab/Acetylcholine Ab.total (S) [Molar fraction] 37 % Inhibition High <21 [facility] Comment on above: Order Comment: Speci men Type: BLOOD SPECIMENOrdering Facility: [facility] Address: [address] [place] [address] Performed By: #### A CEBAB ####[facility] [id number] [place] [address] [place] ACETYLCHOLINE RECEPTOR MODUL ATING ANTIBODYon 02-20-2025 ACETYLCHOLINE RECEPT/MODULATING 83 % High <=45 [facility] Comment on above: Order Comment: Speci men Type: BLOOD SPECIMENOrdering Facility: [facility] Address: [address] [place] [address] Result Comment: Repe ated and Verified INTERPRETIVE [...] developed and its performance characteristics determined by [facility]. It has not been cleared or approved by the [place] Food and Drug Administration. This test was performed in a CLIA certified laboratory and is intended for clinical purposes. Performed By: [facility] [address] [place] [address] Pleat Patternmaker: Tonny Sherman MD, PhD CLIA Number: [id number] Performed By: #### A CEMOD ####[facility] [id number] [place] [id number] CBC W Auto Differential pane l (Bld)on 02-20-2025 Basophils (Bld) [#/Vol] 10*3/uL Normal <0.11 [facility] Comment on above: Order Comment: Speci bharath Type: BLOOD SPECIMENOrdering Facility: [facility] Address: [address] [place] [address] Performed By: #### 5 7021-8, 4537-7 ####[facility] [id number] [place] [address] [place] Basophils/100 WBC (Bld) 0.2 % Normal [facility] Comment on above: Order Comment: Speci bharath Type: BLOOD SPECIMENOrdering Facility: [facility] Address: [address] [place] [address] Performed By: #### 5 7021-8, 7-7 ####[facility] [id number] [address], [place] [address] [place] Differential cell count method Nom (Bld) Auto Normal [facility] Comment on above: Order Comment: Speci men Type: BLOOD SPECIMENOrdering Facility: [facility] Address: [address] [place] [address] Performed By: #### 5 7021-8, 7 ####[facility] [id number] [address], [place] [address] [place] Eosinophils (Bld) [#/Vol] 0.16 10*3/uL Normal <0.46 [facility] Comment on above: Order Comment: Speci men Type: BLOOD SPECIMENOrdering Facility: [facility] Address: [address] [place] [address] Performed By: #### 5 7021-8, 7 ####[facility] [id number] [place] [address] [place] Eosinophils/100 WBC (Bld) 1.4 % Normal [facility] Comment on above: Order Comment: Speci men Type: BLOOD SPECIMENOrdering Facility: [facility] Address: [address] [place] [address] Performed By: #### 5 7021-8, 4536-7 ####[facility] [id number] [facility] [address], [place] [address] [place] Erythrocyte distribution width (RBC) [Ratio] 15.2 % High 11.5-15.0 [facility] Comment on above: Order Comment: Speci men Type: BLOOD SPECIMENOrdering Facility: [facility] Address: [address] [place] [address] Performed By: #### 5 7021-8, 7-7 ####[facility] [id number] [place] [address] [place] Hematocrit (Bld) [Volume fraction] 41.3 % Normal 39.0-51.0 [facility] Comment on above: Order Comment: Speci men Type: BLOOD SPECIMENOrdering Facility: [facility] Address: [address] [place] [address] Performed By: #### 5 7021-8, 4537-7 ####[facility] [id number] [place] [address] [place] Hemoglobin (Bld) [Mass/Vol] 12.8 g/dL Low 13.0-17.0 [facility] Comment on above: Order Comment: Speci men Type: BLOOD SPECIMENOrdering Facility: [facility] Address: [address] [place] [address] Performed By: #### 5 7021-8, 4537-7 ####[facility] [id number] [place] [address] [place] Immature granulocytes (Bld) [#/Vol] 10*3/uL Normal <0.10 [facility] Comment on above: Order Comment: Speci men Type: BLOOD SPECIMENOrdering Facility: [facility] Address: [address] [place] [address] Performed By: #### 5 7021-8, 4537-7 ####[facility] [id number] [place] [address] [place] Immature granulocytes/100 WBC (Bld) 0.2 % Normal [facility] Comment on above: Order Comment: Speci men Type: BLOOD SPECIMENOrdering Facility: [facility] Address: [address] [place] [address] Performed By: #### 5 7021-8, 4537-7 ####[facility] [id number] [place] [address] [place] Lymphocytes (Bld) [#/Vol] 2.15 10*3/uL Normal 1.00-4.00 [facility] Comment on above: Order Comment: Speci men Type: BLOOD SPECIMENOrdering Facility: [facility] Address: [address] [place] [address] Performed By: #### 5 7021-8, 4536-7 ####[facility] [id number] [place] [address] [place] Lymphocytes/100 WBC (Bld) 18.3 % Normal [facility] Comment on above: Order Comment: Speci men Type: BLOOD SPECIMENOrdering Facility: [facility] Address: [address] [place] [address] Performed By: #### 5 7021-8, 4536-7 ####[facility] [id number] [place] [address] [place] MCH (RBC) [Entitic mass] 26.8 pg Normal 26.0-34.0 [facility] Comment on above: Order Comment: Speci men Type: BLOOD SPECIMENOrdering Facility: [facility] Address: [address] [place] [address] Performed By: #### 5 7021-8, 4536-7 ####[facility] [id number] [place] [address] [place] MCHC (RBC) [Mass/Vol] 31.0 g/dL Normal 30.5-36.0 [facility] Comment on above: Order Comment: Speci men Type: BLOOD SPECIMENOrdering Facility: [facility] Address: [address] [place] [address] Performed By: #### 5 7021-8, 4536-7 ####[facility] [id number] [place] [address] [place] MCV (RBC) [Entitic vol] 86.6 fL Normal 80.0-100.0 [facility] Comment on above: Order Comment: Speci men Type: BLOOD SPECIMENOrdering Facility: [facility] Address: [address] [place] [address] Performed By: #### 5 7021-8, 4536-7 ####[facility] [id number] [place] [address] [place] Monocytes (Bld) [#/Vol] 0.95 10*3/uL High <0.87 [facility] Comment on above: Order Comment: Speci men Type: BLOOD SPECIMENOrdering Facility: [facility] Address: [address] [place] [address] Performed By: #### 5 7021-8, 7 ####[facility] [id number] [place] [address] [place] Monocytes/100 WBC (Bld) 8.1 % Normal [facility] Comment on above: Order Comment: Speci men Type: BLOOD SPECIMENOrdering Facility: [facility] Address: [address] [place] [address] Performed By: #### 5 7021-8, 7 ####[facility] [id number] [place] [address] [place] Neutrophils (Bld) [#/Vol] 8.44 10*3/uL High 1.45-7.50 [facility] Comment on above: Order Comment: Speci men Type: BLOOD SPECIMENOrdering Facility: [facility] Address: [address] [place] [address] Performed By: #### 5 7021-8, 4537-01 ####[facility] [id number] [place] [address] [place] Neutrophils/100 WBC (Bld) 71.8 % Normal [facility] Comment on above: Order Comment: Speci men Type: BLOOD SPECIMENOrdering Facility: [facility] Address: [address] [place] [address] Performed By: #### 5 7021-8, 4537-01 ####[facility] [id number] [address] [place] [address] [place] Nucleated RBC (Bld) [#/Vol] 10*3/uL Normal <0.01 [facility] Comment on above: Order Comment: Speci men Type: BLOOD SPECIMENOrdering Facility: [facility] Address: [address] [place] [address] Performed By: #### 5 7021-8, 4537-7 ####[facility] [id number] [address], [facility] [place] Nucleated RBC/100 WBC (Bld) [Ratio] 0.0 /100 WBC Normal [facility] Comment on above: Order Comment: Speci men Type: BLOOD SPECIMENOrdering Facility: [facility] Address: [address] [place] [address] Performed By: #### 5 7021-8, 4537-7 ####[facility] [id number] [address], [place] [address] [place] Platelet mean volume (Bld) [Entitic vol] 11.1 fL Normal 9.0-12.7 [facility] Comment on above: Order Comment: Speci men Type: BLOOD SPECIMENOrdering Facility: [facility] Address: [address] [place] [address] Performed By: #### 5 7021-8, 7-7 ####[facility] [id number] [place] [address] [place] Platelets (Bld) [#/Vol] 271 10*3/uL Normal 150-400 [facility] Comment on above: Order Comment: Speci men Type: BLOOD SPECIMENOrdering Facility: [facility] Address: [address] [place] [address] Performed By: #### 5 7021-8, 7-7 ####[facility] [id number] [address] [place] [address] [place] RBC (Bld) [#/Vol] 4.77 10*6/uL Normal 4.20-6.00 [facility] Comment on above: Order Comment: Speci men Type: BLOOD SPECIMENOrdering Facility: [facility] Address: [address] [place] [address] Performed By: #### 5 7021-8, 4537-7 ####[facility] [id number] [place] [address] [place] WBC (Bld) [#/Vol] 11.74 10*3/uL High 3.70-11.00 [facility] Comment on above: Order Comment: Speci men Type: BLOOD SPECIMENOrdering Facility: [facility] Address: [address] [place] [address] Performed By: #### 5 7021-8, 4537-7 ####[facility] [id number] [address] [place] CNOVon 02-20-2025 CNOV Office Visit (NEMOWS ) -- ALEJO GAGE Jordan ([id number]) 1940 M Date Time Provider Department 02/20/25 3:00 PM JUD MAGUIRE During your visit today, we recorded the following information about you: Pulse Respiration Blood pressure Weight 70/minute 16/minute 121/67 69.8 kg Jud Maguire PA-C 02/20/2025 4:36 PM Signed [facility] Name: Alejo Gomezcuate [...] no Swallowing: (more content not included)... Normal [facility] ALEJO GAGE ([id number]) 1940 M Date Time Provider Department 02/20/25 SAMSON RAGSDALE During your visit today, we recorded the following information about you: Jocelyne Dang 02/20/2025 2:19 PM Signed Patient came into today requesting a letter for a new Handicap sticker. Please advise. Desirae Irving APRN.JAIRON 02/21/2025 8:35 AM Signed Letter made. Just needs printed from [employer]. Pending in Communications or Letters tap. 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 Allergies As of Date: 02/20/2025 Noted Allergy Reaction ATORVASTATIN 10/18/2017 16 - Unknown CRESTOR (ROSUVASTATIN CALCIUM) 04/24/2013 14 - Other: See Comments Comments: Muscle pain GLUCOSAMINE 06/27/2017 16 - Unknown Comments: Nerve pain MOTRIN (IBUPROFEN) 01/19/2006 2 - Rash PRAVASTATIN 02/19/2013 14 - Other: See Comments Comments: muscle aches KREFXPO-ZGS-DHN REDUCTASE INHIBIT*10/09/2014 14 - Other: See Comments [...] Units subcutaneously daily at bedtime. - Insulin Brighton, Disposable, (BD ULTRA-FINE BENNY PEN NEEDLE) 32 [...] GFR 30-59* (more content not included)... Normal [facility] CRP [Mass/Vol] 3.2 mg/dL High <0.9 [facility] Comment on above: Order Comment: Speci men Type: BLOOD SPECIMENOrdering Facility: [facility] Address: [address] [place] [address] Performed By: #### 2 885-2, 15838-6, 1987-5, 2131- ####[facility] [id number] [address] [address] [place] Comprehensive metabolic 2000 panelon 02-20-2025 Albumin [Mass/Vol] 4.3 g/dL Normal 3.9-4.9 [facility] Comment on above: Order Comment: Speci men Type: BLOOD SPECIMENOrdering Facility: [facility] Address: [address] [place], [place] [address] Performed By: #### 2 885-2, , 1987-11, 2132-04 ####[facility] [id number] [address] [address] [place] ALP [Catalytic activity/Vol] 132 U/L High 38-113 [facility] Comment on above: Order Comment: Speci men Type: BLOOD SPECIMENOrdering Facility: [facility] Address: [address] [place], [place] [address] Performed By: #### 2 885-2, , 1987-11, 2132-04 ####[facility] [id number] [address] [address] [place] ALT [Catalytic activity/Vol] 11 U/L Normal 10-54 [facility] Comment on above: Order Comment: Speci men Type: BLOOD SPECIMENOrdering Facility: [facility] Address: [address] [place], [place] [address] Performed By: #### 2 885-2, , 2132-04 ####[facility] [id number] [address] [address] [place] Anion gap [Moles/Vol] 14 mmol/L Normal 8-15 [facility] Comment on above: Order Comment: Speci men Type: BLOOD SPECIMENOrdering Facility: [facility] Address: [address] [place], [place] [address] Performed By: #### 2 885-2, , 1987-11, 2132-04 ####[facility] [id number] [address] [address] [place] AST [Catalytic activity/Vol] 14 U/L Normal 14-40 [facility] Comment on above: Order Comment: Speci men Type: BLOOD SPECIMENOrdering Facility: [facility] Address: [address] [place] [address] Performed By: #### 2 885-2, 60040-5, 2132-04 ####[facility] [id number] [place] [address] [place] Bilirubin [Mass/Vol] 0.3 mg/dL Normal 0.2-1.3 [facility] Comment on above: Order Comment: Speci men Type: BLOOD SPECIMENOrdering Facility: [facility] Address: [address] [place] [address] Performed By: #### 2 885-2, , 2132-04 ####[facility] [id number] [place] [address] [place] Calcium [Mass/Vol] 9.6 mg/dL Normal 8.5-10.2 [facility] Comment on above: Order Comment: Speci men Type: BLOOD SPECIMENOrdering Facility: [facility] Address: [address] [place] [address] Performed By: #### 2 885-2, , 2132-04 ####[facility] [id number] [place] [address] [place] Chloride [Moles/Vol] 102 mmol/L Normal 98-107 [facility] Comment on above: Order Comment: Speci men Type: BLOOD SPECIMENOrdering Facility: [facility] Address: [address] [place] [address] Performed By: #### 2 885-2, 32397-7, 2132-04 ####[facility] [id number] [place] [address] [place] CO2 [Moles/Vol] 26 mmol/L Normal 22-30 [facility] Comment on above: Order Comment: Cyndy sinha Type: BLOOD SPECIMENOrdering Facility: [facility] Address: [address] [place] [address] Performed By: #### 2 885-2, 35413-0, 2132-04 ####[facility] [id number] [place] [address] [place] Creatinine [Mass/Vol] 1.86 mg/dL High 0.73-1.22 [facility] Comment on above: Order Comment: Cyndy sinha Type: BLOOD SPECIMENOrdering Facility: [facility] Address: [address] [place] [address] Performed By: #### 2 885-2, 98636-0, 2132-04 ####[facility]IA [id number] [place] [address] [place] eGFRcr SerPlBld CKD-EPI 2020 35 mL/min/1.73m??? Low >=60 [facility] Comment on above: Order Comment: Cyndy sinha Type: BLOOD SPECIMENOrdering Facility: [facility] Address: [address] [place] [address] Result Comment: Jeanette mated Glomerular Filtration Rate [...] Performed By: #### 2 885-2, , 2132-04 ####[facility] [id number] [address] [address] [place] Glucose [Mass/Vol] 90 mg/dL Normal 74-99 [facility] Comment on above: Order Comment: Speci men Type: BLOOD SPECIMENOrdering Facility: [facility] Address: [address] [place] [address] Result Comment: The [place] Diabetes Association (ADA) provides guidance for cutoff [...] Standards of Medical Care in Diabetes 2016, [place] [employer]. Diabetes Care. 2016.39(Suppl 1). Performed By: #### 2 885-2, , 2132-04 ####[facility] [id number] [place] [address] [place] Potassium [Moles/Vol] 4.3 mmol/L Normal 3.7-5.1 [facility] Comment on above: Order Comment: Cyndy sinha Type: BLOOD SPECIMENOrdering Facility: [facility] Address: [address] [place] [address] Performed By: #### 2 885-2, , 2132-04 ####[facility] [id number] [place] [id number] [place] Sodium [Moles/Vol] 142 mmol/L Normal 136-144 [facility] Comment on above: Order Comment: Ryani men Type: BLOOD SPECIMENOrdering Facility: [facility] Address: [address] [place], [place] [address] Performed By: #### 2 885-2, , 2132-04 ####[facility] [id number] [address] [address] [place] Urea nitrogen [Mass/Vol] 20 mg/dL Normal 9-24 [facility] Comment on above: Order Comment: Speci men Type: BLOOD SPECIMENOrdering Facility: [facility] Address: [address] [place] [address] Performed By: #### 2 885-2, 96914-5, 1987-5, 2132-9 ####[facility] [id number] [place] [address] [place] ESR Westergren method (Bld) [Velocity]on 02-20-2025 ESR (Bld) [Velocity] 35 mm/h High 0-15 [facility] Comment on above: Order Comment: Speci men Type: BLOOD SPECIMENOrdering Facility: [facility] Address: [address] [place] [address] Performed By: #### 5 7021-8, 4537-7 ####[facility] [id number] [place] [address] [place] Methylmalonate SerPl-sCncon 02-20-2025 Methylmalonate [Moles/Vol] 0.15 umol/L Normal <=0.40 [facility] Comment on above: Order Comment: Speci men Type: BLOOD SPECIMENOrdering Facility: [facility] Address: [address] [place] [address] Result Comment: This test was developed, and its performance characteristics determined by the [facility] Department of Pathology and Laboratory Medicine. It has not been cleared or approved by the FDA. The [facility] Department of Pathology and Laboratory Medicine is regulated under CLIA as qualified to perform high-complexity testing. This test is used for clinical purposes. It should not be regarded as investigational or for research. Performed By: #### 1 3964-2 ####[facility] [id number] [place] [address] [place] PROTEIN ELECTROPHORESIS SERU M WITH ELIZABETH (P)on 02-20-2025 Albumin [Mass/Vol] 3.92 g/dL Normal 3.43-5.41 [facility] Comment on above: Order Comment: Speci men Type: BLOOD SPECIMENOrdering Facility: [facility] Address: [address] [place] [address] Performed By: #### L [id number] ####[facility] [id number] [place] [address] [place] Alpha 1 globulin Elph [Mass/Vol] 0.41 g/dL Normal 0.18-0.43 [facility] Comment on above: Order Comment: Speci men Type: BLOOD SPECIMENOrdering Facility: [facility] Address: [address] [place] [address] Performed By: #### L [id number] ####[facility] [id number] [address] [place] Alpha 2 globulin Elph [Mass/Vol] 1.03 g/dL High 0.42-0.98 [facility] Comment on above: Order Comment: Speci men Type: BLOOD SPECIMENOrdering Facility: [facility] Address: [address] [place] [address] Performed By: #### L [id number] ####[facility] [id number] [address] [place] Beta globulin Elph [Mass/Vol] 0.85 g/dL Normal 0.61-1.17 [facility] Comment on above: Order Comment: Speci men Type: BLOOD SPECIMENOrdering Facility: [facility] Address: [address] [place] [address] Performed By: #### L [id number] ####[facility] [id number] [place] [address] [place] COMMENT (SERUM PROT ELECTRO) Monoclonal Protein analysis (immunofixation) is not indicated. Normal [facility] Comment on above: Order Comment: Speci men Type: BLOOD SPECIMENOrdering Facility: [facility] Address: [address] [place] [address] Performed By: #### L [id number] ####[facility] [id number] [address] [address] [place] Gamma globulin Elph [Mass/Vol] 0.69 g/dL Normal 0.53-1.51 [facility] Comment on above: Order Comment: Speci men Type: BLOOD SPECIMENOrdering Facility: [facility] Address: [address] [place] [address] Performed By: #### L [id number] ####[facility] [id number] [address] [place] [address] [place] M-PROTEIN LOCATION Normal [facility] Comment on above: Order Comment: Speci men Type: BLOOD SPECIMENOrdering Facility: [facility] Address: [address] [place] [address] Result Comment: Not Applicable. Performed By: #### L [id number] ####[facility] [id number] [address] [address] [facility] [place] Protein Fractions [Interp] No definitive M protein is identified on protein electrophoresis. Normal No definitive M protein is identified on protein electrophor esis. [facility] Comment on above: Order Comment: Speci men Type: BLOOD SPECIMENOrdering Facility: [facility] Address: [address] [place] [address] Performed By: #### L [id number] ####[facility] [id number] [address] [address] [place] Protein.monoclonal Elph [Mass/Vol] 0.00 g/dL Normal <=0.00 [facility] Comment on above: Order Comment: Speci men Type: BLOOD SPECIMENOrdering Facility: [facility] Address: [address] [place] [address] Performed By: #### L [id number] ####[facility] [id number] [address] [address] [place] SPE STAFF REVIEW Reviewed by Dominick Silverio MD, Ph.D ([id number]) Normal [facility] Comment on above: Order Comment: Speci men Type: BLOOD SPECIMENOrdering Facility: [facility] Address: [address] [place] [address] Performed By: #### L [id number] ####[facility] [id number] [place] [id number] [place] Prot SerPl-mCncon 02-20-2025 Protein [Mass/Vol] 6.9 g/dL Normal 6.3-8.0 [facility] Comment on above: Order Comment: Speci men Type: BLOOD SPECIMENOrdering Facility: [facility] Address: [address] [place] [address] Performed By: #### 2 885-2, 93290-1, 1987-11, 2132-04 ####[facility] [id number] [place] [address] [place] Vit B12 SerPl-mCncon 025 Cobalamin (Vitamin B12) [Mass/Vol] pg/mL High 232-1245 [facility] Comment on above: Order Comment: Speci men Type: BLOOD SPECIMENOrdering Facility: [facility] Address: [address] [place] [address] Performed By: #### 2 885-2, 71947-2, 2132-04 ####[facility] [id number] [place] [id number] [place] MR Brain WO contraston 01-31 IMPRESSION: No evidence of acute intracranial abnormality. Scattered patchy and confluent T2 FLAIR hyperintense lesions are present in the bilateral supratentorial brain compatible with sequelae of chronic small vessel disease. Dissolver Operator: JASON Transcribe Date/Time: Jan 31 2025 12:42P Dictated by : JOSE ANTONIO GROSS MD This examination was interpreted and the report reviewed and electronically signed by: JOSE ANTONIO GROSS MD on Jan 31 2025 12:44PM [facility] * * *Final Report* * * DATE OF EXAM: Jan 31 2025 12:30PM [facility] 0294 - MRI BRAIN WO IVCON [...] are unremarkable. DIVISION OF RADIOLOGY Provider, Tat[facility] - 01/31/2025 * * *Final Report* * * DATE OF EXAM: Jan 31 2025 12:30PM [facility] 0294 - [facility]ED[facility] REASON: Other symptoms [...] with sequelae of chronic small vessel disease. Dissolver Operator: JASON Transcribe Date/Time: Jan 31 2025 12:42P Dictated by : JOSE ANTONIO GROSS MD This examination was interpreted and the report reviewed and electronically signed by: JOSE ANTONIO GROSS MD on Jan 31 2025 12:44PM EST [facility] Radiology Study observation (narrative) [facility] MR Brain WO contrastOrdered By: [facility] Provider on 01-31-2025 [facility] MRI BRAIN WO IVCONon 025 MRI BRAIN WO IVCON * * *Final Report* * * DATE OF EXAM: Jan 31 2025 12:30PM [facility] 0294 - MRI BRAIN WO IVCON [...] with sequelae of chronic small vessel disease. Dissolver Operator: PSCB Transcribe Date/Time: Jan 31 2025 12:42P Dictated by : JOSE ANTONIO GROSS MD This examination was interpreted and the report reviewed and electronically signed by: JOSE ANTONIO GROSS MD on Jan 31 2025 12:44PM EST [id number] Normal [facility] CNOVon 01-30-2025 CNOV Office Visit (FAMPWS ) -- ALEJO GAGE ([id number]) 1940 M Date Time Provider Department 01/30/25 1:20 PM LALA GODINEZ During your visit today, we recorded the following information about you: Pulse Blood pressure Weight 65/minute 144/67 73 kg Lala Godinez, MICHI.WATER ATTENDANT 01/30/2025 1:44 PM Signed Chief Complaint Patient presents with: Follow Up HPI Alejo Gage is a 84 year old male who presents here today for Above Complaints. Patient presents for follow up. Patient reports he continues to have swallowing difficulty and vision abnormalities. Swallowing has slightly improved but vision has worsened slightly. Has Cookie swallow ordered and scheduled at [facility]. Reports carotid US shows 50-70% blockage on [...] Xience stent to L circumflex EGD 04/26/[address] [facility] [address] Nolan Triana EGD 05/23/2024 EGD TRANSORAL BIOPSY SINGLE/MULTIPLE 07/10/2007 PAST SURGICAL HISTORY OF 01/26/2008 stent placement ramus and prox ramus PAST SURGICAL HISTORY OF heart stents PROSTATECTOMY PERINEAL RADICAL 1999 Prostatectomy, radical- Dr. 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 Yousif Triana; next screening colonoscopy in 10yrs, [facility] UNLISTED DIAGNOSTIC GASTROENTEROLOGY PROCEDURE 06/06/2018 Family History FAMILY HISTORY Problem Relation Age of Onset Hypertension Father COPD Father Heart Mother Patient Allergies ALLERGIES Allergen Reactions Atorvastatin Unknown Crestor [Rosuvastat* Other: See Comments Muscle pain Glucosamine Unknown Nerve pain Motrin [Ibuprofen] Rash Pravastatin Other: See Comments muscle aches Ufxquag-Mlj-Xcf Red* Other: See Comments myalgia Current Medications [...] 10 Units subcutaneously daily at bedtime. Insulin [place], Disposable, (BD ULTRA-FINE BENNY PEN NEEDLE) 32 gauge x 5/32 Use once daily with Lantus as directed diclofenac sodium (VOLTAREN) 1 % topical gel Apply 2 g to affected area four times daily. flaxseed oil (OMEGA 3 ORAL) Take by mouth. hydrocortisone 2.5 % cream Apply 1 application to affected area twi (more content not included)... Normal [facility] Mirza 01-29-2025 JAIRONN Telephone (FAMPWS) -- ALEJO GAGE ([id number]) 1940 M Date Time Provider Department 01/29/25 [...] - Other: See Comments Comments: muscle aches [id number]-[id number] REDUCTASE INHIBIT*10/09/2014 14 - Other: See Comments [...] Units subcutaneously daily at bedtime. - Insulin [place], Disposable, (BD ULTRA-FINE BENNY PEN NEEDLE) 32 [...] [* 06/05/2020 (more content not included)... Normal [facility] Abd Aortic/IVC Duplex scanon 01-22-2025 Abd Aortic/IVC Duplex scan [facility] [address] [place] [address] Abd Aortic/IVC Duplex scan 01/22/25 0905 MR#: [id number] Acct: [id number] Name: ALEJO GAGE Rep #: [id number] : 1940 84 From: Bk Arzate MD Attending Dr: Dr. Srini Montano MD Status: [facility] Ordering Dr: Srini Montano MD Date: 01/22/25 Location: [facility] Sex: M C Admitted: Reason For Study [...] Aorta IVC Iliac vasculature or bypass grafts 41191. Exam performed in department. VL/Abd Aortic/IVC Duplex [...] DO Date Dictated: 01/22/25904 Date Transcribed: 01/22/251103 Dissolver Operator: Signed Normal [facility] Abdominal aortic duplex scan reportOrdered By: Bk Arzate on 01-22-2025 US.doppler Thoracic and abdominal aorta [facility] [address] [place] [address] Abd Aortic/IVC Duplex scan 01/22/25904 MR#: [id number] Acct: [id number] Name: ALEJO GAGE Rep #:[id number] : 1940 84 From: Bk Delarosa Attending Dr: Dr. Srini Montano MD Status: REG CLI Ordering Dr: Srini Montano MD Date: Location: [facility] Sex: M C Admitted: Reason For Study [...] Aorta IVC Iliac vasculature or bypass grafts 36401. Exam performed in department. VL/Abd Aortic/IVC Duplex [...] ~ Date Dictated: 01/22/25904 Date Transcribed: 01/22/251103 Dissolver Operator: Signed [facility] Work Phone: Carotid Duplex Ultrasoundon 01-22-2025 Carotid Duplex Ultrasound [facility] [address] [place] [address] Carotid Duplex Ultrasound 01/22/25927 MR#: [id number] Acct: [id number] Name: ALEJO GAGE Rep #: [id number] : 1940 84 From: Bk Arzate MD Attending Dr: Dr. Srini Montano MD Status: REG CLI Ordering Dr: Srini Montano MD Date: 01/22/25 Location: [facility] Sex: M C Admitted: Reason For Study [...] the left vertebral artery. Procedure Carotid Duplex 57388. This is a Carotid Duplex examination using [...] DO Date Dictated: 01/22/25927 Date Transcribed: 01/22/251105 Dissolver Operator: Signed Normal [facility] Duplex ultrasound of carotid artery reportOrdered By: Bk Arzate on 01-22-2025 Study report [facility] [address] [place] [address] Carotid Duplex Ultrasound 01/22/25927 MR#: [id number] Acct: [id number] Name: ALEJO GAGE Rep #:[id number] : 1940 84 From: Bk Delarosa Attending Dr: Dr. Srini Montano MD Status: REG CLI Ordering Dr: Srini Montano MD Date: Location: [facility] Sex: M C Admitted: Reason For Study [...] the left vertebral artery. Procedure Carotid Duplex 53218. This is a Carotid Duplex examination using [...] Date Dictated: 01/22/25927 Date Transcribed: 01/22/25 110 Dissolver Operator: Signed [facility] Work Phone: Cardiovascular stress test r eportOrdered By: Srini Montano on 01-21-2025 Study report [facility] [address] [place] [address] MR#: [id number] Acct: [id number] Name: ALEJO GAGE Rep #: [id number] : 1940 84 From: Srini Montano [...] of 53%. This note was generated with [employer] software. It may contain incorrectwords, spelling, and punctuation that were not noted in checking the note beforesigning. 01/21/25814 Date _ Srini Montano MD CC: Dr. Srini Montano MD; Dr. Samson Ragsdale DO ~ Date Dictated: 01/21/25813 Date Transcribed: 01/21/25813 Dissolver Operator: HE Fam [facility] Work Phone: Echocardiogram study reportO rdered By: Srini Montano on 01-21-2025 Study report [facility] [address] [place] [address] Echo Complete 01/18/2542 MR#: [id number] Acct: [id number] Name: ALEJO GAGE Rep #:[id number] : 1940 84 From: Srini Montano MD Attending Dr: Dr. Srini Montano MD Status: REG CLI Ordering Dr: Srini Montano MD Date: Location: [facility] Sex: M C Admitted: Reason For Study [...] ~ Date Dictated: 01/18/25941 Date Transcribed: 01/21/25803 Dissolver Operator: Signed [facility] Work Phone: Stress Reporton 01-21-2025 Stress Report [facility] [address] [place] [address] MR#: [id number] Acct: [id number] Name: ALEJO GAGE Rep #: [id number] : 1940 84 From: Srini Montano MD [...] of 53%. This note was generated with [employer] dictation software. It may contain incorrect words, spelling, and punctuation that were not noted in checking the note before signing. 01/21/25814 Date Srini Montano MD CC: Dr. Srini Montano MD; Dr. Samson Ragsdale DO Date Dictated: 01/21/25813 Date Transcribed: 01/21/25813 Dissolver Operator: AR Signed Normal [facility] Brain/Head without Contrasto n 01-18-2025 Brain/Head without Contrast [facility] Imaging Services [address] [place] [id number] Brain/Head without Contrast MR#: [id number] Acct: [id number] Name: ALEJO GAGE Rep #: [id number] : 1940 M 84 From: Aquilino laguerre MD PCP: Dr. Samson Ragsdale DO Status: REG CLI Study: Brain/Head without Contrast Date of Exam: 12/31 Exam# [id number] Ordering Dr: Lala Godinez [employer] PROCEDURE: BRAIN/HEAD WITHOUT CONTRAST 01/18/2025 REASON FOR [...] evidence for acute brain abnormality. Reading Location: [place] [address] CC: MAXINE Godinez; Dr. Samson Ragsdale DO Dissolver Operator: Signed Normal [facility] Echo Completeon 01-18-2025 Echo Complete [facility] [address] [place] [address] Echo Complete 01/18/25 0942 MR#: [id number] Acct: [id number] Name: ALEJO GAGE Rep #: [id number] : 1940 84 From: Srini Montano MD [...] DO Date Dictated: 01/18/25941 Date Transcribed: 01/21/25803 Dissolver Operator: Signed [facility] 01-17-2025 [facility] Office Visit (FAMJessyWS ) -- ALEJO GAGE ([id number]) 1940 M Date Time Provider Department 01/17/25 11:40 AM LALA GODINEZ During your visit today, we recorded the following information about you: Pulse Blood pressure Weight 62/minute 116/58 72 kg Lala Godinez APRN.WATER ATTENDANT 01/17/2025 12:10 PM Signed Chief Complaint Patient presents with: ER F/U HPI Alejo Gage is a 84 year old male who presents here today for Above Complaints. Orthopnea and Dyspnea: - Orthopnea and increasing dyspnea over the past 7-10 days. - Seen in [facility] ER on 01/14; BNP, troponins, and chest X-ray were normal. - Seen by cardiology at [facility] on 01/15; isosorbide increased to 60 mg [...] without mention of hemorrhage 04/26/2017 EGD by [facility] Advance care planning 03/24/2022 [facility] can help [...] Xience stent to L circumflex EGD 04/26/[address] [facility] [address] Nolan Triana EGD 05/23/2024 EGD TRANSORAL BIOPSY SINGLE/MULTIPLE 07/10/2007 PAST SURGICAL HISTORY OF 01/26/2008 stent placement ramus and prox ramus PAST SURGICAL HISTORY OF heart stents PROSTATECTOMY PERINEAL RADICAL 2000 Prostatectomy, radical- Dr. 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 Yousif Triana; next screening colonoscopy in 10yrs, [facility] UNLISTED DIAGNOSTIC GASTROENTEROLOGY PROCEDURE 06/06/2018 Family History FAMILY HISTORY Problem Relation Age of Onset Hypertension Father COPD Father Heart Mother Patient Allergies ALLERGIES Allergen Reactions Atorvastatin Unknown Crestor [Rosuvastat* Other: See Comments Muscle pain Glucosamine Unknown Nerve pain Motrin [Ibuprofen] Rash Pravastatin Other: See Comments muscle aches Bxugndz-Lrj-Dsv Red* Other: See Comments myalgia Current Medications [...] once daily. (more content not included)... [facility] Anion gap in Serum or Plasma Ordered By: Srini Montano on 01-15-2025 Anion gap [Moles/Vol] 12 mmol/L 5-15 [facility] BUN/creatinine ratioOrdered By: Srini Montano on 01-15-2025 Urea nitrogen/Creatinine [Mass ratio] 16.1 mg/mg 10-20 [facility] Bilirubin, totalOrdered By: Srini Montano on 01-15-2025 Bilirubin [Mass/Vol] 0.16 mg/dL 0.00-1.30 [facility] Calculated very low density lipoprotein (VLDL) cholesterol measurementOrdered By: Srini Montano on 01-15-2025 Calculated very low density lipoprotein (VLDL) cholesterol measurement 39 mg/dL - [facility] Carbon dioxide, total [Moles /volume] in Central venous bloodOrdered By: Srini Montano on 01-15-2025 CO2 [Moles/Vol] 28.6 mmol/L 21.0-32.0 [facility] Cardiology Visit Reporton Cardiology Visit Report [facility] [place] [facility] [address] [place], [place] [address] OFFICE VISIT Date of Service: 01/15/25 MR#: [id number] Acct: [id number] Name: ALEJO GAGE Rep #: [id number] : 1940 Provider: Dr. 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 Accompanied by: Is patient in pain?: No Allergies ibuprofen Allergy (Unknown, Unverified 01/15/25 13:36) NEEDS FOLLOW-UP pravastatin Allergy (Unknown, Verified 01/15/25 13:36) NEEDS FOLLOW-UP atorvastatin (From Lipitor) Allergy (Verified 01/15/25 13:36) Unknown glucosamine Allergy (Verified 01/15/25 13:36) Unknown rosuvastatin Adverse Reaction (Unknown, Verified 01/15/25 13:36) NEEDS FOLLOW-UP Twpgulm-CAL-GjD Reductase Inhibitor Adverse Reaction (Unknown, Verified 01/15/25 [...] year?: Yes (single episode; no major injury) [facility] Medical History Abdominal aneurysm without mention of rupture Abdominal aortic aneurysm without rupture Acute gastritis without mention of hemorrhage Acute myocardial infarction Atherosclerosis of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kaw heart without angina pectoris Carotid artery stenosis Carotid atherosclerosis Chronic kidney disease, stage 3 CKD stage 3b, 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 Normal [facility] Chloride assayOrdered By: He Montano on 01-15-2025 Chloride [Moles/Vol] 101 mmol/L 98-108 [facility] Comprehensive Metabolic Prof ilon 01-15-2025 Albumin [Mass/Vol] 4.1 g/dL Normal 3.4-4.8 [facility] Comment on above: Performed By: #### L 500.4050, L503.7505, L500.4100 #### [facility] [address] [place], [address] Albumin/Globulin [Mass ratio] 1.4 {ratio} Normal 0.9-2.4 [facility] Comment on above: Performed By: #### L 500.4050, L503.7505, L500.4100 #### [facility] [address] [place], [address] ALK PHOS 119 U/L Normal 40-129 [facility] Comment on above: Performed By: #### L 500.4050, L503.7505, L500.4100 #### [facility] [address] [place], [address] ALT [Catalytic activity/Vol] 9 U/L Normal <=46 [facility] Comment on above: Performed By: #### L 500.4050, L503.7505, L500.4100 #### [facility] [address] [place], [address] AST [Catalytic activity/Vol] 15 U/L Normal <=37 [facility] Comment on above: Performed By: #### L 500.4050, L503.7505, L500.4100 #### [facility] [address] [place], [address] Bilirubin [Mass/Vol] 0.16 mg/dL Normal 0.00-1.30 [facility] Comment on above: Performed By: #### L 500.4050, L503.7505, L500.4100 #### [facility] [address] [place], [address] BUN/CRE 16.1 RATIO Normal 10-20 [facility] Comment on above: Performed By: #### L 500.4050, L503.7505, L500.4100 #### [facility] [address] [place], [address] Calcium [Mass/Vol] 9.7 mg/dL Normal 7.6-11.0 [facility] Comment on above: Performed By: #### L 500.4050, L503.7505, L500.4100 #### [facility] [address] [place], [address] Chloride [Moles/Vol] 101 mmol/L Normal 98-108 [facility] Comment on above: Performed By: #### L 500.4050, L503.7505, L500.4100 #### [facility] [address] [place], [address] CO2 [Moles/Vol] 28.6 mmol/L Normal 21.0-32.0 [facility] Comment on above: Performed By: #### L 500.4050, L503.7505, L500.4100 #### [facility] [address] [place], [address] Creatinine [Mass/Vol] 2.08 mg/dL High 0.70-1.20 [facility] Comment on above: Performed By: #### L 500.4050, L503.7505, L500.4100 #### [facility] [address] [place], [address] GAP 12 Normal 5-15 [facility] Comment on above: Performed By: #### L 500.4050, L503.7505, L500.4100 #### [facility] [address] [place], [address] GFR/1.73 sq M.predicted among non-blacks MDRD (S/P/Bld) [Vol rate/Area] 31 mL/min/{1.73_m2} Low >60 [facility] Comment on above: Result Comment: mL/m in/1.73m2 CKD-EPI Creatinine Equation (2020) Performed By: #### L 500.4050, L503.7505, L500.4100 #### [facility] [address] [place], [address] Globulin (S) [Mass/Vol] 3.0 g/dL Normal 2.2-4.2 [facility] Comment on above: Performed By: #### L 500.4050, L503.7505, L500.4100 #### [facility] [address] [place], [address] Glucose [Mass/Vol] 123 mg/dL High 70-99 [facility] Comment on above: Performed By: #### L 500.4050, L503.7505, L500.4100 #### [facility] [address] [place], [address] Potassium [Moles/Vol] 4.5 mmol/L Normal 3.3-5.1 [facility] Comment on above: Performed By: #### L 500.4050, L503.7505, L500.4100 #### [facility] [address] [place], [address] Sodium [Moles/Vol] 142 mmol/L Normal 133-145 [facility] Comment on above: Performed By: #### L 500.4050, L503.7505, L500.4100 #### [facility] [address] [place], [address] T PROT 7.1 g/dL Normal 5.9-8.4 [facility] Comment on above: Performed By: #### L 500.4050, L503.7505, L500.4100 #### [facility] [address] [place], [address] Urea nitrogen [Mass/Vol] 33 mg/dL High 4-19 [facility] Comment on above: Performed By: #### L 500.4050, L503.7505, L500.4100 #### [facility] [address] [place], [address] Glomerular filtration rate ( GFR) estimation/1.73 sq m using serum, plasma, or whole bOrdered By: Srini Montano on 01-15-2025 GFR/1.73 sq M.predicted among non-blacks MDRD (S/P/Bld) [Vol rate/Area] 31 mL/min/{1.73_m2} Low >60 [facility] Comment on above: mL/min/1.73m2 CKD-EP I Creatinine Equation (2020) L503.7505on 01-15-2025 Natriuretic peptide B (Bld) [Mass/Vol] 163 pg/mL Normal <=1800 [facility] Comment on above: Result Comment: Hear t Failure Unlikely: < 300 pg/mL Heart Failure Likely < 50 Years: > 450 pg/mL 50-75 Years: > 900 pg/mL >75 Years: > 1800 pg/mL Performed By: #### L 500.4050, L503.7505, L500.4100 #### [facility] [address] [place], [place], [id number] LDL calc ser/plasOrdered By: Srini Montano on 01-15-2025 Cholesterol in LDL [Mass/Vol] 131 mg/dL [facility] Comment on above: Hqfkzmbbgl=148-930 m g/dL & Higher Bhnm=496 mg/dL or greater Laboratory - Chemistry and C hemistry - challengeOrdered By: Srini Montano on 01-15-2025 AST [Catalytic activity/Vol] 15 U/L <38 [facility] Lipid Profileon 01-15-2025 CHOL:HDL 5.99 Normal [facility] Comment on above: Performed By: #### L 500.4050, L503.7505, L500.4100 #### [facility] [address] [place], [address] Cholesterol [Mass/Vol] 205 mg/dL High <=200 [facility] Comment on above: Result Comment: Chol esterol level, Desirable <200 mg/dL Borderline high cholesterol 200-239 mg/dL High cholesterol >=240 mg/dL Recommendations of the NCEP Adult Treatment Panel for the following risk-cutoff thresholds for the [place] population. Performed By: #### L 500.4050, L503.7505, L500.4100 #### [facility] [address] [place], [address] Cholesterol in HDL [Mass/Vol] 34 mg/dL Low [facility] Comment on above: Result Comment: Ryann onal Cholesterol Education Program (NCEP) guidelines: <40 mg/dL: Low HDL-cholesterol (major risk factor for CHD) >= 60 mg/dL: High HDL-cholesterol (negative risk factor for CHD) HDL-cholesterol is affected by a number of factors, e.g. smoking, exercise, hormones, sex and age. Performed By: #### L 500.4050, L503.7505, L500.4100 #### [facility] [address] [place], [address] Cholesterol in LDL [Mass/Vol] 131 mg/dL Normal [facility] Comment on above: Result Comment: Bord jadiod=081-042 mg/dL Higher Yamd=729 mg/dL or greater Performed By: #### L 500.4050, L503.7505, L500.4100 #### [facility] [address] [place], [address] Cholesterol in VLDL [Mass/Vol] 39 mg/dL Normal 5-40 [facility] Comment on above: Performed By: #### L 500.4050, L503.7505, L500.4100 #### [facility] [address] [place], [address] Triglyceride [Mass/Vol] 197 mg/dL Normal [facility] Comment on above: Result Comment: The drugs N-Acetylcysteine and Metamizole may falsely depress this assay. Normal range: <150 mg/dL Borderline High: 150-199 mg/dL High: 200-499 mg/dL Very High: >500 mg/dL Performed By: #### L 500.4050, L503.7505, L500.4100 #### [facility] [address] [place], [place], [address] Natriuretic peptide.B prohor natanael N-Terminal [Mass/volume] in Serum or PlasmaOrdered By: Srini Montano on 01-15-2025 Natriuretic peptide.B prohormone N-Terminal [Mass/Vol] 163 pg/mL <1800 [facility] Comment on above: Heart Failure Unlike ly: < 300 pg/mLHeart Failure Likely< 50 Years: > 450 pg/mL50-75 Years: > 900 pg/mL>75 Years: > 1800 pg/mL Potassium measurement (mass/ volume)Ordered By: Srini Montano on 01-15-2025 Potassium (Unsp spec) [Mass/Vol] 4.5 mmol/L 3.3-5.1 [facility] Screening total cholesterol/ high density lipoprotein (HDL) cholesterol ratioOrdered By: Srini Montano on 01-15-2025 Cholesterol.total/Chol esterol in HDL [Mass ratio] 5.99 {ratio} [facility] Serum creatinine measurement (mass/volume)Ordered By: Srini Montano on 01-15-2025 Creatinine [Mass/Vol] 2.08 mg/dL High 0.70-1.20 [facility] Serum globulin measurementOr dered By: Srini Montano on 01-15-2025 Globulin (S) [Mass/Vol] 3.0 g/dL 2.2-4.2 [facility] Serum glucose measurement (m ass/volume)Ordered By: Srini Montano on 01-15-2025 Glucose [Mass/Vol] 123 mg/dL High 70-99 [facility] Serum or plasma alanine regalado otransferase (ALT) measurementOrdered By: Srini Montano on 01-15-2025 ALT [Catalytic activity/Vol] 9 U/L <47 [facility] Serum or plasma albumin waldemar urement (mass/volume)Ordered By: Srini Montano on 01-15-2025 Albumin [Mass/Vol] 4.1 g/dL 3.4-4.8 [facility] Serum or plasma albumin/glob ulin mass ratioOrdered By: Srini Montano on 01-15-2025 Albumin/Globulin [Mass ratio] 1.4 {ratio} 0.9-2.4 [facility] Serum or plasma alkaline garret sphatase measurementOrdered By: Srini Montano on 01-15-2025 ALP [Catalytic activity/Vol] 119 U/L 40-129 [facility] Serum or plasma calcium waldemar urement (mass/volume)Ordered By: Srini Montano on 01-15-2025 Calcium [Mass/Vol] 9.7 mg/dL 7.6-11.0 [facility] Serum or plasma cholesterol in HDL measurement (mass/volume)Ordered By: Srini Montano on 01-15-2025 Cholesterol in HDL [Mass/Vol] 34 mg/dL Low >40 [facility] Comment on above: National Cholesterol Education Program (NCEP) guidelines:<40 mg/dL: Low HDL-cholesterol (major risk factor for CHD)>= 60 mg/dL: High HDL-cholesterol (negative risk factor for CHD)HDL-cholesterol is affected by a number of factors, e.g. smoking, exercise, hormones, sex and age. Serum or plasma cholesterol measurement (mass/volume)Ordered By: Srini Montano on 01-15-2025 Cholesterol [Mass/Vol] 205 mg/dL High <201 [facility] Comment on above: Cholesterol level, D esirable <200 mg/dLBorderline high cholesterol 200-239 mg/dLHigh cholesterol >=240 mg/dLRecommendations of the NCEP Adult Treatment Panel for the following risk-cutoff thresholds for the [place] population. Serum or plasma urea nitroge n measurement (mass/volume)Ordered By: Srini Montano on 01-15-2025 Urea nitrogen [Mass/Vol] 33 mg/dL High 4-19 [facility] Sodium levelOrdered By: Atif Montano on 01-15-2025 Sodium [Moles/Vol] 142 mmol/L 133-145 [facility] Total proteinOrdered By: John Montano on 01-15-2025 Protein [Mass/Vol] 7.1 g/dL 5.9-8.4 [facility] Triglycerides measurementOrd ered By: Srini Montano on 01-15-2025 Triglyceride [Mass/Vol] 197 mg/dL <199 [facility] Comment on above: The drugs N-Acetylcy steine and Metamizole may falsely depress this assay. Normal range: <150 mg/dLBorderline High: 150-199 mg/dLHigh: 200-499 mg/dLVery High: >500 mg/dL Basic Metabolic Profile (BMP )on 01-14-2025 BUN/CRE 17.7 RATIO Normal 10-20 [facility] Comment on above: Performed By: #### L 100.0100, L501.4021, L500.2500, L503.7505 #### [facility] [address] [place], [address] Calcium [Mass/Vol] 9.3 mg/dL Normal 7.6-11.0 [facility] Comment on above: Performed By: #### L 100.0100, L501.4021, L500.2500, L503.7505 #### [facility] [address] [place], [address] Chloride [Moles/Vol] 98 mmol/L Normal 98-108 [facility] Comment on above: Performed By: #### L 100.0100, L501.4021, L500.2500, L503.7505 #### [facility] [address] [place], [address] CO2 [Moles/Vol] 26.5 mmol/L Normal 21.0-32.0 [facility] Comment on above: Performed By: #### L 100.0100, L501.4021, L500.2500, L503.7505 #### [facility] [address] [place], [address] Creatinine [Mass/Vol] 2.35 mg/dL High 0.70-1.20 [facility] Comment on above: Performed By: #### L 100.0100, L501.4021, L500.2500, L503.7505 #### [facility] [address] [place], [address] ECRCL 23.04 ml/min Low 50-250 [facility] Comment on above: Performed By: #### L 100.0100, L501.4021, L500.2500, L503.7505 #### [facility] [address] [place], [address] GAP 14 Normal 5-15 [facility] Comment on above: Performed By: #### L 100.0100, L501.4021, L500.2500, L503.7505 #### [facility] [address] [place], [address] GFR/1.73 sq M.predicted among non-blacks MDRD (S/P/Bld) [Vol rate/Area] 27 mL/min/{1.73_m2} Low >60 [facility] Comment on above: Result Comment: mL/m in/1.73m2 CKD-EPI Creatinine Equation (2020) Performed By: #### L 100.0100, L501.4021, L500.2500, L503.7505 #### [facility] [address] [place], [address] Glucose [Mass/Vol] 167 mg/dL High 70-99 [facility] Comment on above: Performed By: #### L 100.0100, L501.4021, L500.2500, L503.7505 #### [facility] [address] [place], [address] Potassium [Moles/Vol] 4.4 mmol/L Normal 3.3-5.1 [facility] Comment on above: Result Comment: Hemo lysis present, Results??could be affected. ?? Performed By: #### L 100.0100, L501.4021, L500.2500, L503.7505 #### [facility] [address] [place], [address] Sodium [Moles/Vol] 139 mmol/L Normal 133-145 [facility] Comment on above: Performed By: #### L 100.0100, L501.4021, L500.2500, L503.7505 #### [facility] [address] [place], [address] Urea nitrogen [Mass/Vol] 42 mg/dL High 4-19 [facility] Comment on above: Performed By: #### L 100.0100, L501.4021, L500.2500, L503.7505 #### [facility] [address] [place], [address] L499.0042on 01-14-2025 Trop T High Sen 52 ng/L High <=22 [facility] Comment on above: Result Comment: Crit ical Result(s) Called at:0151 by: CARMELITA OWENS??Results read back by same. Performed By: #### L 499.0042 #### [facility] [address] [place], [address] L501.4021on 01-14-2025 Trop T High Sen 53 ng/L High <=22 [facility] Comment on above: Result Comment: Crit ical Result(s) Called at: 0011 by: CARMELITA OWENS??Results read back by same. Performed By: #### L 100.0100, L501.4021, L500.2500, L503.7505 #### [facility] [address] [place], [address] L503.7505on 01-14-2025 Natriuretic peptide B (Bld) [Mass/Vol] 235 pg/mL Normal <=1800 [facility] Comment on above: Result Comment: Hear t Failure Unlikely: < 300 pg/mL Heart Failure Likely < 50 Years: > 450 pg/mL 50-75 Years: > 900 pg/mL >75 Years: > 1800 pg/mL Performed By: #### L 100.0100, L501.4021, L500.2500, L503.7505 #### [facility] [address] [place], [address] Troponin T.cardiac [Mass/vol ume] in Serum or Plasma by High sensitivity methodOrdered By: Adam Mon on 01-14-2025 Troponin T.cardiac High sensitivity method [Mass/Vol] 52 ng/L High <22 [facility] Comment on above: Critical Result(s) C alled at:0151 by: CARMELITA RUBIO TO ANDERSON OWENS Results read back by same. 12 Lead EKGon 01-13-2025 12 Lead EKG [facility] Cardiovascular Services [address] [place] [address] 12 Lead EKG 01/13/25 2227 MR#: [id number] Acct: [id number] Name: ALEJO GAGE Rep #: [id number] : 1940 84 From: Wojciech López MD [...] ECG Confirmed by WOJCIECH LÓPEZ MD ([id number]), newspaper copy editor JOSE MEARZ ([id number]) on 01/15/2025 7:38:04 AM Referred By: RUTH ANN Confirmed By: WOJCIECH LÓPEZ MD 01/15/25 0738 Date oWjciech López MD CC: Dr. Adam Mon MD; Dr. Samson Ragsdale DO Signed Normal [facility] Absolute lymphocyte countOrd ered By: Adam Mon on 01-13-2025 Lymphocytes Auto (Unsp spec) [#/Vol] 1.99 10*3/uL 0.83-4.51 [facility] Absolute neutrophil countOrd ered By: Adam Mon on 01-13-2025 Neutrophils (Bld) [#/Vol] 7.5 10*3/uL 2.0-7.7 [facility] Anion gap in Serum or Plasma Ordered By: Adam Mon on 01-13-2025 Anion gap [Moles/Vol] 14 mmol/L 12-13 [facility] Automated lymphocyte count a s percentage of total leukocytesOrdered By: Adam Mon on 01-13-2025 Lymphocytes/100 WBC Auto (Unsp spec) 18.6 % Low - [facility] BUN/creatinine ratioOrdered By: Adam Mon on 01-13-2025 Urea nitrogen/Creatinine [Mass ratio] 17.7 mg/mg 05-20 [facility] Basophil percentageOrdered B y: Adam Mon on 01-13-2025 Basophils/100 WBC (Bld) 0.4 % 0-1 [facility] CBC W/Diff, Automatedon 12-30 Absolute Lymph 1.99 X10 3/uL Normal 0.83-4.51 [facility] Comment on above: Performed By: #### L 100.0100, L501.4021, L500.2500, L503.7505 #### [facility] [address] [place], [address] Absolute Neut 7.5 X10 3/uL Normal 2.0-7.7 [facility] Comment on above: Performed By: #### L 100.0100, L501.4021, L500.2500, L503.7505 #### [facility] [address] [place], [address] Basophils/100 WBC (Bld) 0.4 % Normal 0-1 [facility] Comment on above: Performed By: #### L 100.0100, L501.4021, L500.2500, L503.7505 #### [facility] [address] [place], [address] Eosinophils/100 WBC (Bld) 2.5 % Normal 0-5 [facility] Comment on above: Performed By: #### L 100.0100, L501.4021, L500.2500, L503.7505 #### [facility] [address] [place], [address] Erythrocyte distribution width (RBC) [Ratio] 13.9 % Normal 11.6-14.6 [facility] Comment on above: Performed By: #### L 100.0100, L501.4021, L500.2500, L503.7505 #### [facility] [address] [place], [address] Hematocrit (Bld) [Volume fraction] 36.9 % Low 40-54 [facility] Comment on above: Performed By: #### L 100.0100, L501.4021, L500.2500, L503.7505 #### [facility] [address] [place], [address] Hemoglobin (Bld) [Mass/Vol] 11.8 g/dL Low 13.0-16.5 [facility] Comment on above: Performed By: #### L 100.0100, L501.4021, L500.2500, L503.7505 #### [facility] [address] [place], [address] IG% 0.300 Normal 0.0-0.9 [facility] Comment on above: Result Comment: IG% - Immature Granulocytes (promyelocytes, myelocytes and metamyelocytes) > 1% indicates that a LEFT SHIFT is Present. Performed By: #### L 100.0100, L501.4021, L500.2500, L503.7505 #### [facility] [address] [place], [address] Lymphocytes/100 WBC (Bld) 18.6 % Low 19-41 [facility] Comment on above: Performed By: #### L 100.0100, L501.4021, L500.2500, L503.7505 #### [facility] [address] [place], [address] MCH (RBC) [Entitic mass] 27.7 pg Normal 27.0-32.0 [facility] Comment on above: Performed By: #### L 100.0100, L501.4021, L500.2500, L503.7505 #### [facility] [address] [place], [address] MCHC (RBC) [Mass/Vol] 32.0 g/dL Normal 32-36 [facility] Comment on above: Performed By: #### L 100.0100, L501.4021, L500.2500, L503.7505 #### [facility] [address] [place], [address] MCV (RBC) [Entitic vol] 86.6 fL Normal 80-94 [facility] Comment on above: Performed By: #### L 100.0100, L501.4021, L500.2500, L503.7505 #### [facility] [address] [place], [address] Monocytes/100 WBC (Bld) 8.2 % Normal 0-10 [facility] Comment on above: Performed By: #### L 100.0100, L501.4021, L500.2500, L503.7505 #### [facility] [address] [place], [address] Neutrophils/100 WBC (Bld) 70.0 % Normal 47-70 [facility] Comment on above: Performed By: #### L 100.0100, L501.4021, L500.2500, L503.7505 #### [facility] [address] [place], [address] Nucleated RBC (Bld) [#/Vol] 0 10*3/uL Normal 0-5 [facility] Comment on above: Performed By: #### L 100.0100, L501.4021, L500.2500, L503.7505 #### [facility] [address] [place], [address] Platelet mean volume (Bld) [Entitic vol] 10.4 fL Normal 6.2-12.0 [facility] Comment on above: Performed By: #### L 100.0100, L501.4021, L500.2500, L503.7505 #### [facility] [address] [place], [address] Platelets (Bld) [#/Vol] 326 10*3/uL Normal 150-450 [facility] Comment on above: Performed By: #### L 100.0100, L501.4021, L500.2500, L503.7505 #### [facility] [address] [place], [address] RBC (Bld) [#/Vol] 4.26 10*6/uL Low 4.6-6.2 [facility] Comment on above: Performed By: #### L 100.0100, L501.4021, L500.2500, L503.7505 #### [facility] [address] [place], [address] RDW SD 44.2 fl High 35.1-43.9 [facility] Comment on above: Performed By: #### L 100.0100, L501.4021, L500.2500, L503.7505 #### [facility] [address] [place], [address] WBC (Bld) [#/Vol] 10.7 10*3/uL Normal 4.4-11.0 [facility] Comment on above: Performed By: #### L 100.0100, L501.4021, L500.2500, L503.7505 #### [facility] [address] [facility] [place], [address] Carbon dioxide, total [Moles /volume] in Central venous bloodOrdered By: Adam Mon on 01-13-2025 CO2 [Moles/Vol] 26.5 mmol/L 21.0-32.0 [facility] Chest PA and Lateralon 01-13 Chest PA and Lateral [facility] Imaging Services [address] [place] [address] Chest PA and Lateral MR#: [id number] Acct: [id number] Name: ALEJO GAGE Rep #: [id number] : 1940 M 84 From: Melchor Delarosa PCP: Dr. Samson Ragsdale DO Status: [facility] ER Study: Chest PA and Lateral Date of Exam: 01/13/25 Exam# [id number] Ordering Dr: Adam Mon MD PROCEDURE: CHEST PA AND LATERAL 01/13/2025 REASON FOR EXAM: CHEST PAIN TECHNIQUE: CHEST PA AND LATERAL COMPARISON: none FINDINGS: Median sternotomy wires. Aortic arch calcification. Left base subsegmental atelectasis. No focal consolidations. No pleural effusion or pneumothorax. RAD/Chest PA and Lateral IMPRESSION: No focal consolidations. No pleural effusion or pneumothorax. Left base subsegmental atelectasis. Reading Location: [id number] CC: Dr. Adam Mon MD; Dr. Samson Ragsdale DO Dissolver Operator: Signed Normal [facility] Chloride assayOrdered By: Pepe Mon on 01-13-2025 Chloride [Moles/Vol] 98 mmol/L 98-108 [facility] Emergency Department Summary on 01-13-2025 Emergency Department Summary [facility] Medical Records Department [address] [place] [address] Emergency Department Summary 01/13/25 MR#: [id number] Acct: [id number] Name: ALEJO GAGE Rep #: [id number] : 1940 84 From: Adam Mon MD [...] None Narrative Narrative: 84-year-old male history of MO, hypertension, diabetes, ischemic cardiomyopathy and prior prostate [...] vascular disease) Atherosclerosis of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kaw heart without angina pectoris Complete heart block ST elevation MO (STEMI) Chronic kidney disease, stage 3 Hyperlipidemia [...] Respiratory/Chest: Reports (more content not included)... Normal [facility] Eosinophil percentageOrdered By: Adam Mon on 01-13-2025 Eosinophils/100 WBC (Bld) 2.5 % 0-5 [facility] Erythrocyte distribution wid th ratioOrdered By: Adam Mon on 01-13-2025 Erythrocyte distribution width (RBC) [Ratio] 13.9 % 11.6-14.6 [facility] Erythrocyte distribution wid th standard deviationOrdered By: Adam Mon on 01-13-2025 Erythrocyte distribution width (RBC) [Ratio] 44.2 fl High 35.1-43.9 [facility] Glomerular filtration rate ( GFR) estimation/1.73 sq m using serum, plasma, or whole bOrdered By: Adam Mon on 01-13-2025 GFR/1.73 sq M.predicted among non-blacks MDRD (S/P/Bld) [Vol rate/Area] 27 mL/min/{1.73_m2} Low >60 [facility] Comment on above: mL/min/1.73m2 CKD-EP I Creatinine Equation (2020) Hematocrit Auto (Bld) [Volum e fraction]Ordered By: Adam Mon on 01-13-2025 Hematocrit (Bld) [Volume fraction] 36.9 % Low 40-54 [facility] Hemoglobin measurementOrdere d By: Adam Mon on 01-13-2025 Hemoglobin (Bld) [Mass/Vol] 11.8 g/dL Low 13.0-16.5 [facility] Immature granulocytes/100 WB C Auto (Bld)Ordered By: Adam Mon on 01-13-2025 Immature granulocytes/100 WBC (Bld) 0.300 % 0.0-0.9 [facility] Comment on above: IG% - Immature Granu locytes (promyelocytes, myelocytes and metamyelocytes) > 1% indicates that a LEFT SHIFT is Present. MCV (mean corpuscular volume ) determinationOrdered By: Adam Mon on 01-13-2025 MCV (RBC) [Entitic vol] 86.6 fL 80-94 [facility] Mean corpuscular hemoglobin (MCH) determinationOrdered By: Adam Mon on 01-13-2025 MCH (RBC) [Entitic mass] 27.7 pg 27.0-32.0 [facility] Mean corpuscular hemoglobin concentration (MCHC) determinationOrdered By: Adam Mon on 01-13-2025 MCHC (RBC) [Mass/Vol] 32.0 g/dL 32-36 [facility] Mean platelet volume determi nationOrdered By: Adam Mon on 01-13-2025 Platelet mean volume (Bld) [Entitic vol] 10.4 fL 6.2-12.0 [facility] Monocyte percentageOrdered B y: Adam Mon on 01-13-2025 Monocytes/100 WBC (Bld) 8.2 % 0-10 [facility] Natriuretic peptide.B prohor natanael N-Terminal [Mass/volume] in Serum or PlasmaOrdered By: Adam Mon on 01-13-2025 Natriuretic peptide.B prohormone N-Terminal [Mass/Vol] 235 pg/mL <1800 [facility] Comment on above: Heart Failure Unlike ly: < 300 pg/mLHeart Failure Likely< 50 Years: > 450 pg/mL50-75 Years: > 900 pg/mL>75 Years: > 1800 pg/mL Neutrophil percentageOrdered By: Adam Mno on 01-13-2025 Neutrophils/100 WBC (Bld) 70.0 % 47-70 [facility] Nucleated red blood cell per centageOrdered By: Adam Mon on 01-13-2025 Nucleated RBC/100 WBC (Bld) [Ratio] 0 % 0-5 [facility] Platelet countOrdered By: Pepe Mon on 01-13-2025 Platelets (Bld) [#/Vol] 326 10*3/uL 150-450 [facility] Potassium measurement (mass/ volume)Ordered By: Adam Mon on 01-13-2025 Potassium (Unsp spec) [Mass/Vol] 4.4 mmol/L 3.3-5.1 [facility] Comment on above: Hemolysis present, R esults could be affected. RBC Auto (Bld) [#/Vol]Ordere d By: Adam Mon on 01-13-2025 RBC (Bld) [#/Vol] 4.26 10*6/uL Low 4.6-6.2 [facility] Serum creatinine measurement (mass/volume)Ordered By: Adam Mon on 01-13-2025 Creatinine [Mass/Vol] 2.35 mg/dL High 0.70-1.20 [facility] Serum glucose measurement (m ass/volume)Ordered By: Adam Mon on 01-13-2025 Glucose [Mass/Vol] 167 mg/dL High 70-99 [facility] Serum or plasma calcium waldemar urement (mass/volume)Ordered By: Adam Mon on 01-13-2025 Calcium [Mass/Vol] 9.3 mg/dL 7.6-11.0 [facility] Serum or plasma urea nitroge n measurement (mass/volume)Ordered By: Adam Mon on 01-13-2025 Urea nitrogen [Mass/Vol] 42 mg/dL High 4-19 [facility] Sodium levelOrdered By: Adam Mon on 01-13-2025 Sodium [Moles/Vol] 139 mmol/L 133-145 [facility] Troponin T.cardiac [Mass/vol ume] in Serum or Plasma by High sensitivity methodOrdered By: Adam Mon on 01-13-2025 Troponin T.cardiac High sensitivity method [Mass/Vol] 53 ng/L High <22 [facility] Comment on above: Critical Result(s) C alled at: 0011 by: CARMELITA RUBIO TO ANDERSON OWENS Results read back by same. 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 Mild lower leg swelling but denies that [...] without mention of hemorrhage 04/26/2017 EGD by [facility] Advance care planning 03/24/2022 [facility] can help [...] Xience stent to L circumflex EGD 04/26/[address] [facility] [address] Nolan Triana EGD 05/23/2024 EGD TRANSORAL BIOPSY SINGLE/MULTIPLE 07/10/2007 PAST SURGICAL HISTORY OF 01/26/2008 stent placement ramus and prox ramus PAST SURGICAL HISTORY OF heart stents PROSTATECTOMY PERINEAL RADICAL 2000 Prostatectomy, radical- Dr. 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 Yousif Triana; next screening colonoscopy in 10yrs, [facility] UNLISTED DIAGNOSTIC GASTROENTEROLOGY PROCEDURE 06/06/2018 ALLERGIES Atorvastatin, Crestor [Rosuvastatin Calcium], Glucosamine, Motrin [Ibuprofen], Pravastatin, and Hovniwm-Sqg-Wso Reductase Inhibitors MEDICATIONS zinc sulfate (ZINC-15 ORAL) [...] 10 Units subcutaneously daily at bedtime. Insulin [place], Disposable, (BD ULTRA-FINE BENNY PEN NEEDLE) 32 [...] once daily. (more content not included)... Normal [facility] XR CHEST 2V FRONTAL/LATon XR CHEST [...] post median sternotomy. IMPRESSION: Left basilar atelectasis/scarring. Dissolver Operator: JASON Transcribe Date/Time: Jan 09 2025 2:43P Dictated by : ZOE AKBAR MD This examination was interpreted and the report reviewed and electronically signed by: ZOE AKBAR MD on Jan 09 2025 2:46PM EST [id number] Normal [facility] XR Chest PA and Lateralon IMPRESSION: Left basilar atelectasis/scarring. Dissolver Operator: IRVINGB Transcribe Date/Time: Jan 09 2025 2:43P Dictated by : ZOE AKBAR MD This examination was interpreted and the report reviewed and electronically signed by: ZOE AKBAR MD on Jan 09 2025 2:46PM [facility] * * *Final Report* [...] median sternotomy. IMPRESSION IMPRESSION: Left basilar atelectasis/scarring. Dissolver Operator: JASON Transcribe Date/Time: Jan 09 2025 2:43P Dictated by : ZOE AKBAR MD This examination was interpreted and the report reviewed and electronically signed by: ZOE AKBAR MD on Jan 09 2025 2:46PM EST [facility] Radiology Study observation (narrative) [facility] XR Chest PA and LateralOrder ed By: Ccf Provider on 01-09-2025 [facility] CNOVon 11-26-2024 CNOV Office Visit (INTMWS ) -- FRANKYALEJO Ortega ([id number]) 1940 M Date Time Provider Department 11/26/24 3:00 PM THEODORA HERNANDEZ INTMWS During your visit today, we recorded the following information about you: Pulse Blood pressure Weight 62/minute 120/60 76.7 kg Theodora Hernandez, BUSINESS SERVICES CLERK.WATER ATTENDANT 11/26/2024 3:27 PM Addendum We discussed your [...] heat or ice on the affected area. Icpl-gdg-iglvzqp options like Icy Hot or Biofreeze may [...] prednisone and hydrocodone have been sent to [facility] in [place]. Please let us know if you have any questions or concerns. Theodora Hernandez, BUSINESS SERVICES CLERK.[facility] 11/26/2024 3:43 PM Signed CC: Patient presents with: Pain: in right shoulder for about 6 weeks denies any injury HPI Recording using [employer] software for draft documentation of the visit was discussed with the patient/authorized patient account representative; all questions welcomed and answered. Patient/authorized patient account representative agreed to proceed Alejo is a [...] hemorrhoid 04/26/2017 (more content not included)... Normal [facility] XR SHLDR >/=3V AP/MACY AP/OTH R [...] Mild degenerative changes. No acute osseous abnormality. Dissolver Operator: PSCB Transcribe Date/Time: Nov 28 2024 7:38A Dictated by : WILLEM GUERRERO MD This examination was interpreted and the report reviewed and electronically signed by: WILLEM GUERRERO MD on Nov 28 2024 7:39AM EST [id number] Normal [facility] XR SHLDR >/=3V AP/MACY AP/OTH R [...] Mild degenerative changes. No acute osseous abnormality. Dissolver Operator: JASON Transcribe Date/Time: Nov 28 2024 7:38A Dictated by : WILLEM GUERRERO MD This examination was interpreted and the report reviewed and electronically signed by: WILLEM GUERRERO MD on Nov 28 2024 7:39AM EST [id number] Normal [facility] XR THORACIC 3V AP/LAT/SWIMME RSon 11-26-2024 [...] endplate osteophytes IMPRESSION: 1. Moderate thoracic spondylosis Dissolver Operator: JASON Transcribe Date/Time: Nov 29 2024 6:55A Dictated by : JESUS NAVA MD This examination was interpreted and the report reviewed and electronically signed by: JESUS NAVA MD on Nov 29 2024 6:56AM EST [id number] Normal [facility] CNOVon 09-26-2024 CNOV Office Visit (FAMPWS ) -- ALEJO GAGE ([id number]) 1940 M Date Time Provider Department 09/26/24 2:20 PM [facility] During your visit today, we recorded the following information about you: Temperature Pulse Respiration Blood pressure 97 degrees 64/minute 20/minute 138/70 Weight 74.8 kg Samsno Ragsdale DO 09/26/2024 4:41 PM Signed Patient [...] without mention of hemorrhage 04/26/2017 EGD by Exec Advance care planning 03/24/2022 [facility] can help [...] Xience stent to L circumflex EGD 04/26/[address] [facility] [address] Nolan Triana EGD 05/23/2024 EGD TRANSORAL BIOPSY SINGLE/MULTIPLE 07/10/2007 PAST SURGICAL HISTORY OF 01/26/2008 stent placement ramus and prox ramus PAST SURGICAL HISTORY OF heart stents PROSTATECTOMY PERINEAL RADICAL 2000 Prostatectomy, radical- Dr. 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 Yousif Triana; next screening colonoscopy in 10yrs, [facility] UNLISTED DIAGNOSTIC GASTROENTEROLOGY PROCEDURE 06/06/2018 Social History Tobacco Use Smoking status: Former Current packs/day: 2.00 Average packs/day: 2.0 packs/day for 20.0 years (40.0 ttl pk-yrs) Types: Cigarette (more content not included)... Normal [facility] CBC W Auto Differential pane l (Bld)on 09-17-2024 Basophils (Bld) [#/Vol] 0.04 10*3/uL [facility] Basophils/100 WBC (Bld) 0.3 % [facility] Differential cell count method Nom (Bld) Auto [facility] Eosinophils (Bld) [#/Vol] 0.11 10*3/uL [facility] Eosinophils/100 WBC (Bld) 0.9 % [facility] Erythrocyte distribution width (RBC) [Ratio] 15.9 % High 11.5 - 15.0 % [facility] Hematocrit (Bld) [Volume fraction] 42 % 39.0 - 51.0 % [facility] Hemoglobin (Bld) [Mass/Vol] 13.2 g/dL 13.0 - 17.0 g/dL [facility] Immature granulocytes (Bld) [#/Vol] 0.05 10*3/uL [facility] Immature granulocytes/100 WBC (Bld) 0.4 % [facility] Interpretation and review of laboratory results Abnormal [facility] Lymphocytes (Bld) [#/Vol] 2.07 10*3/uL [facility] Lymphocytes/100 WBC (Bld) 17.7 % [facility] MCH (RBC) [Entitic mass] 28.1 pg 26.0 - 34.0 pg [facility] MCHC (RBC) [Mass/Vol] 31.4 g/dL 30.5 - 36.0 g/dL [facility] MCV (RBC) [Entitic vol] 89.4 fL 80.0 - 100.0 fL [facility] Monocytes (Bld) [#/Vol] 0.89 10*3/uL High [facility] Monocytes/100 WBC (Bld) 7.6 % [facility] Neutrophils (Bld) [#/Vol] 8.53 10*3/uL High [facility] Neutrophils/100 WBC (Bld) 73.1 % [facility] Nucleated RBC (Bld) [#/Vol] [facility] Nucleated RBC/100 WBC (Bld) [Ratio] 0 % /100 WBC [facility] Platelet mean volume (Bld) [Entitic vol] 9.9 fL 9.0 - 12.7 fL [facility] Platelets (Bld) [#/Vol] 308 10*3/uL [facility] RBC (Bld) [#/Vol] 4.7 10*6/uL 4.20 - 6.0 0 m/uL [facility] WBC (Bld) [#/Vol] 11.69 10*3/uL High [facility] Basophils (Bld) [#/Vol] 0.04 10*3/uL Normal <0.11 [facility] Comment on above: Order Comment: Speci men Type: BLOOD SPECIMENOrdering Facility: [facility] Address: [address] [place] [address] Performed By: #### 5 7021-8 ####[facility] LABCLIA [id number] [address] [place] Basophils/100 WBC (Bld) 0.3 % Normal [facility] Comment on above: Order Comment: Speci men Type: BLOOD SPECIMENOrdering Facility: [facility] Address: [address] [place] [address] Performed By: #### 5 7021-8 ####[facility] LABCLIA [id number] [place] [address] [place] Differential cell count method Nom (Bld) Auto Normal [facility] Comment on above: Order Comment: Speci men Type: BLOOD SPECIMENOrdering Facility: [facility] Address: [address] [place] [address] Performed By: #### 5 7021-8 ####[facility] LABCLIA [id number] [place] [address] [place] Eosinophils (Bld) [#/Vol] 0.11 10*3/uL Normal <0.46 [facility] Comment on above: Order Comment: Speci men Type: BLOOD SPECIMENOrdering Facility: [facility] Address: [address] [place] [address] Performed By: #### 5 7021-8 ####[facility] LABCLIA [id number] [place] [address] [place] Eosinophils/100 WBC (Bld) 0.9 % Normal [facility] Comment on above: Order Comment: Speci men Type: BLOOD SPECIMENOrdering Facility: [facility] Address: [address] [place] [address] Performed By: #### 5 7021-8 ####[facility] LABCLIA [id number] [place] [address] [place] Erythrocyte distribution width (RBC) [Ratio] 15.9 % High 11.5-15.0 [facility] Comment on above: Order Comment: Speci men Type: BLOOD SPECIMENOrdering Facility: [facility] Address: [address] [place] [address] Performed By: #### 5 7021-8 ####[facility] LABCLIA [id number] [place] [address] [place] Hematocrit (Bld) [Volume fraction] 42.0 % Normal 39.0-51.0 [facility] Comment on above: Order Comment: Speci men Type: BLOOD SPECIMENOrdering Facility: [facility] Address: [address] [place] [address] Performed By: #### 5 7021-8 ####[facility] LABIA [id number] [place] [address] [place] Hemoglobin (Bld) [Mass/Vol] 13.2 g/dL Normal 13.0-17.0 [facility] Comment on above: Order Comment: Speci men Type: BLOOD SPECIMENOrdering Facility: [facility] Address: [address] [place] [address] Performed By: #### 5 7021-8 ####[facility] LABIA [id number] [place] [address] [place] Immature granulocytes (Bld) [#/Vol] 0.05 10*3/uL Normal <0.10 [facility] Comment on above: Order Comment: Speci men Type: BLOOD SPECIMENOrdering Facility: [facility] Address: [address] [place] [address] Performed By: #### 5 7021-8 ####[facility] LABIA [id number] [place] [address] [place] Immature granulocytes/100 WBC (Bld) 0.4 % Normal [facility] Comment on above: Order Comment: Speci men Type: BLOOD SPECIMENOrdering Facility: [facility] Address: [address] [place] [address] Performed By: #### 5 7021-8 ####[facility] LABIA [id number] [place] [address] [place] Lymphocytes (Bld) [#/Vol] 2.07 10*3/uL Normal 1.00-4.00 [facility] Comment on above: Order Comment: Speci men Type: BLOOD SPECIMENOrdering Facility: [facility] Address: [address] [place] [address] Performed By: #### 5 7021-8 ####[facility] LABCLIA [id number] [place] [address] [place] Lymphocytes/100 WBC (Bld) 17.7 % Normal [facility] Comment on above: Order Comment: Speci men Type: BLOOD SPECIMENOrdering Facility: [facility] Address: [address] [place] [address] Performed By: #### 5 7021-8 ####[facility] LABIA [id number] [place] [address] [place] MCH (RBC) [Entitic mass] 28.1 pg Normal 26.0-34.0 [facility] Comment on above: Order Comment: Speci men Type: BLOOD SPECIMENOrdering Facility: [facility] Address: [address] [place] [address] Performed By: #### 5 7021-8 ####[facility] LABIA [id number] [place] [address] [place] MCHC (RBC) [Mass/Vol] 31.4 g/dL Normal 30.5-36.0 [facility] Comment on above: Order Comment: Speci men Type: BLOOD SPECIMENOrdering Facility: [facility] Address: [address] [place] [address] Performed By: #### 5 7021-8 ####[facility] LABIA [id number] [place] [address] [place] MCV (RBC) [Entitic vol] 89.4 fL Normal 80.0-100.0 [facility] Comment on above: Order Comment: Speci men Type: BLOOD SPECIMENOrdering Facility: [facility] Address: [address] [place] [address] Performed By: #### 5 7021-8 ####[facility] LABCLIA [id number] [place] [address] [place] Monocytes (Bld) [#/Vol] 0.89 10*3/uL High <0.87 [facility] Comment on above: Order Comment: Speci men Type: BLOOD SPECIMENOrdering Facility: [facility] Address: [address] [place] [address] Performed By: #### 5 7021-8 ####[facility] LABCLIA [id number] [place] [address] [place] Monocytes/100 WBC (Bld) 7.6 % Normal [facility] Comment on above: Order Comment: Speci men Type: BLOOD SPECIMENOrdering Facility: [facility] Address: [address] [place] [address] Performed By: #### 5 7021-8 ####[facility] LABCLIA [id number] [place] [address] [place] Neutrophils (Bld) [#/Vol] 8.53 10*3/uL High 1.45-7.50 [facility] Comment on above: Order Comment: Speci men Type: BLOOD SPECIMENOrdering Facility: [facility] Address: [address] [place] [address] Performed By: #### 5 7021-8 ####[facility] LABCLIA [id number] [place] [address] [place] Neutrophils/100 WBC (Bld) 73.1 % Normal [facility] Comment on above: Order Comment: Speci men Type: BLOOD SPECIMENOrdering Facility: [facility] Address: [address] [place] [address] Performed By: #### 5 7021-8 ####[facility] LABCLIA [id number] [place] [address] [place] Nucleated RBC (Bld) [#/Vol] 10*3/uL Normal <0.01 [facility] Comment on above: Order Comment: Speci men Type: BLOOD SPECIMENOrdering Facility: [facility] Address: [address] [place] [address] Performed By: #### 5 7021-8 ####[facility] LABCLIA [id number] [place] [address] [place] Nucleated RBC/100 WBC (Bld) [Ratio] 0.0 /100 WBC Normal [facility] Comment on above: Order Comment: Speci men Type: BLOOD SPECIMENOrdering Facility: [facility] Address: [address] [place] [address] Performed By: #### 5 7021-8 ####[facility] LABCLIA [id number] [place] [address] [place] Platelet mean volume (Bld) [Entitic vol] 9.9 fL Normal 9.0-12.7 [facility] Comment on above: Order Comment: Speci men Type: BLOOD SPECIMENOrdering Facility: [facility] Address: [address] [place] [address] Performed By: #### 5 7021-8 ####[facility] LABIA [id number] [place] [address] [place] Platelets (Bld) [#/Vol] 308 10*3/uL Normal 150-400 [facility] Comment on above: Order Comment: Speci men Type: BLOOD SPECIMENOrdering Facility: [facility] Address: [address] [place] [address] Performed By: #### 5 7021-8 ####[facility] LABCLIA [id number] [place] [address] [place] RBC (Bld) [#/Vol] 4.70 10*6/uL Normal 4.20-6.00 [facility] Comment on above: Order Comment: Speci men Type: BLOOD SPECIMENOrdering Facility: [facility] Address: [address] [place] [address] Performed By: #### 5 7021-8 ####[facility] [id number] [place] [address] [place] WBC (Bld) [#/Vol] 11.69 10*3/uL High 3.70-11.00 [facility] Comment on above: Order Comment: Speci men Type: BLOOD SPECIMENOrdering Facility: [facility] Address: [address] [place] [address] Performed By: #### 5 7021-8 ####[facility] LABIA [id number] [address] [place] CNPNon 09-17-2024 [facility] ALEJO GAGE ([id number]) 1940 M Date Time Provider Department 09/17/24 [facility] During your visit today, we recorded the following information about you: Sirena Martinez 09/17/2024 10:40 AM Signed Patient is wanting to come in to today for routine lab work for upcoming wellness exam with PCP on 09/26/24. Please notify patient when orders are available in chart. Desirae Irving APRN.WATER ATTENDANT 09/17/2024 2:05 PM Signed Labs placed this morning. Already in process. Desirae Irving APRN.WATER ATTENDANT Allergies As of Date: 09/17/2024 Noted Allergy Reaction ATORVASTATIN 10/18/2017 16 - Unknown CRESTOR (ROSUVASTATIN CALCIUM) 04/24/2013 14 - Other: See Comments Comments: Muscle pain GLUCOSAMINE 06/27/2017 16 - Unknown Comments: Nerve pain MOTRIN (IBUPROFEN) 01/19/2006 2 - Rash PRAVASTATIN 02/19/2013 14 - Other: See Comments Comments: muscle aches [id number] REDUCTASE INHIBIT*10/09/2014 14 - Other: See Comments [...] - Uncontrolled, E11.65 Insulin: Yes - Insulin [place], Disposable, (BD ULTRA-FINE BENNY PEN NEEDLE) 32 [...] CAD ( (more content not included)... Normal [facility] Comprehensive metabolic 2000 panelon 09-17-2024 Albumin [Mass/Vol] 3.7 g/dL Low 3.9-4.9 [facility] Comment on above: Order Comment: Speci men Type: BLOOD SPECIMENOrdering Facility: [facility] Address: [address] [place] [address] Performed By: #### 2 4323-8 ####[facility]ORY[facility] [id number] [place] [address] [place]#### 06077-6 ####[facility]ORYCL[facility] [id number] [address] STATES [facility] LABCLIA [id number] [place] [address] [place] ALP [Catalytic activity/Vol] 82 U/L Normal 38-113 [facility] Comment on above: Order Comment: Speci men Type: BLOOD SPECIMENOrdering Facility: [facility] Address: [address] [place] [address] Performed By: #### 2 4323-8 ####[facility]ORYCLIA [id number] [place] [address] [place]#### 89953-8 ####[facility]ORYCLIA [id number] [place] [address] [facility] LABCLIA [id number] [place] [address] [place] ALT [Catalytic activity/Vol] 20 U/L Normal 10-54 [facility] Comment on above: Order Comment: Speci men Type: BLOOD SPECIMENOrdering Facility: [facility] Address: [address] [place] [address] Performed By: #### 2 4323-8 ####[facility]ORYCLIA [id number] [place] [address] [place]#### 35852-6 ####[facility]ORYCLIA [id number] [place] [address] [facility] LABCLIA [id number] [place] [address] [place] Anion gap [Moles/Vol] 10 mmol/L Normal 8-15 [facility] Comment on above: Order Comment: Speci men Type: BLOOD SPECIMENOrdering Facility: [facility] Address: [address] [place] [address] Performed By: #### 2 4323-8 ####[facility]ORYCLIA [id number] [place] [address] [place]#### 07964-8 ####[facility]ORYCL[facility] [id number] [address] LABCLIA [id number] [place] [address] [place] AST [Catalytic activity/Vol] 19 U/L Normal 14-40 [facility] Comment on above: Order Comment: Speci men Type: BLOOD SPECIMENOrdering Facility: [facility] Address: [address] [place] [address] Performed By: #### 2 4323-8 ####[facility]ORYCLIA [id number] [place] [address] [place]#### 57327-5 ####[facility]ORYCLIA [id number] [place] [address] [facility] LABCLIA [id number] [place] [address] [place] Bilirubin [Mass/Vol] 0.3 mg/dL Normal 0.2-1.3 [facility] Comment on above: Order Comment: Speci men Type: BLOOD SPECIMENOrdering Facility: [facility] Address: [address] [place] [id number] Performed By: #### 2 4323-8 ####[facility]ORYCLIA [id number] [place] [address] [place]#### 17751-8 ####[facility]ORYCLIA [id number] [place] [address] [facility] LABCLIA [id number] [place] [address] [place] Calcium [Mass/Vol] 9.4 mg/dL Normal 8.5-10.2 [facility] Comment on above: Order Comment: Speci men Type: BLOOD SPECIMENOrdering Facility: [facility] Address: [address] [place], [place] [address] Performed By: #### 2 4323-8 ####[facility]ATORYCLIA [id number] [place] [address] [place]#### 04272-0 ####[facility]ORYCLIA [id number] [address] LABCLIA [id number] [place] [address] [place] Chloride [Moles/Vol] 104 mmol/L Normal 98-107 [facility] Comment on above: Order Comment: Speci men Type: BLOOD SPECIMENOrdering Facility: [facility] Address: [address] [place], [place] [address] Performed By: #### 2 4323-8 ####[facility]ORYCLIA [id number] [place] [address] [place]#### 57140-5 ####[facility]ORYCLIA [id number] [place] [address] [facility] LABCLIA [id number] [place] [id number] [place] CO2 [Moles/Vol] 27 mmol/L Normal 22-30 [facility] Comment on above: Order Comment: Speci men Type: BLOOD SPECIMENOrdering Facility: [facility] Address: [address] [place] [address] Performed By: #### 2 4323-8 ####[facility]ATORYCLIA [id number] [place] [address] [place]#### 32115-8 ####[facility]ORYCLIA [id number] [address] LABCLIA [id number] [facility] [place] [address] [place] Creatinine [Mass/Vol] 1.68 mg/dL High 0.73-1.22 [facility] Comment on above: Order Comment: Speci men Type: BLOOD SPECIMENOrdering Facility: [facility] Address: [address] [place] [address] Performed By: #### 2 4323-8 ####[facility]ORYCLIA [id number] [place] [address] [place]#### 53125-6 ####[facility]ORYCLIA [id number] [place] [address] [facility] LABCLIA [id number] [place] [address] [place] Creatinine and Glomerular filtration rate.predicted panel (S/P/Bld) 40 mL/min/1.73m??? Low >=60 [facility] Comment on above: Order Comment: Speci men Type: BLOOD SPECIMENOrdering Facility: [facility] Address: [address] [place] [address] Result Comment: Jeanette mated Glomerular Filtration Rate [...] actual GFR. Performed By: #### 2 4323-8 ####[facility]ATORYCLIA [id number] [place] [address] [place]#### 61479-2 ####[facility]ORYCLIA [id number] [address] LABCLIA [id number] [place] [address] [place] Glucose [Mass/Vol] 80 mg/dL Normal 74-99 [facility] Comment on above: Order Comment: Speci men Type: BLOOD SPECIMENOrdering Facility: [facility] Address: [address] [place] [address] Result Comment: The [place] [employer] Association (ADA) provides guidance for cutoff [...] Standards of Medical Care in Diabetes 2016, [place] [employer]. Diabetes Care. 2016.39(Suppl 1). Performed By: #### 2 4323-8 ####[facility]ORATORYCLIA [id number] [place] [address] [place]#### 13470-1 ####[facility]ORYCLIA [id number] [place] [id number] [facility] LABCLIA [id number] [place] [address] [place] Potassium [Moles/Vol] 4.6 mmol/L Normal 3.7-5.1 [facility] Comment on above: Order Comment: Speci men Type: BLOOD SPECIMENOrdering Facility: [facility] Address: [address] [place] [id number] Performed By: #### 2 4323-8 ####[facility]ORYCLIA [id number] [place] [address] [place]#### 48886-7 ####[facility] LABORATORYCLIA [id number] [place] [address]44[address] [facility] LABCLIA [id number] [place] [address] [place] Protein [Mass/Vol] 6.8 g/dL Normal 6.3-8.0 [facility] Comment on above: Order Comment: Speci men Type: BLOOD SPECIMENOrdering Facility: [facility] Address: [facility] [place] [address] Performed By: #### 2 4323-8 ####[facility] LABORATORYCLIA [id number] [place] [address] [place]#### 59632-2 ####[facility] LABORATORYCLIA [id number] [address] LABCLIA [id number] [place] [address] [place] Sodium [Moles/Vol] 141 mmol/L Normal 136-144 [facility] Comment on above: Order Comment: Speci men Type: BLOOD SPECIMENOrdering Facility: [facility] Address: [address] [id number] Performed By: #### 2 4323-8 ####[facility] LABORATORYCLIA [id number] [place] [address] [place]#### 18220-0 ####[facility] LABORATORYCLIA [id number] [place] [address] [facility] LABCLIA [id number] [place] [address] [place] Urea nitrogen [Mass/Vol] 26 mg/dL High 9-24 [facility] Comment on above: Order Comment: Cyndy sinha Type: BLOOD SPECIMENOrdering Facility: [facility] Address: [address] [place] [address] Performed By: #### 2 4323-8 ####[facility] LABORATORYCLIA [id number] [address] [address] [place]#### 17995-6 ####[facility] LABORATORYCLIA [id number] [address] [address] [place] [facility] LABCLIA [id number] [place] [address] [place] HbA1c (Bld)on 09-17-2024 Average glucose Estimated from glycated hemoglobin (Bld) [Mass/Vol] 134 mg/dL Normal [facility] Comment on above: Order Comment: Cyndy sinha Type: BLOOD SPECIMENOrdering Facility: [facility] Address: [address] [place] [address] Result Comment: eAG: (Estimated average glucose) is a calculated value from HgbA1c and is patient account representative of the average blood glucose level in the last 2-3 month period. Performed By: #### 5 5454-3 ####[facility] LABCLIA [id number] [place] [address] [place] HbA1c (Bld) [Mass fraction] 6.3 % High 4.3-5.6 [facility] Comment on above: Order Comment: Cyndy sinha Type: BLOOD SPECIMENOrdering Facility: [facility] Address: [address] [place] [address] Result Comment: Amer ican Diabetes Association guidelines indicate that patients with HgbA1c in the range 5.7-6.4% are at increased risk for development of diabetes, and intervention by lifestyle modification may be beneficial. HgbA1c greater or equal to 6.5% is considered diagnostic of diabetes. Performed By: #### 5 5454-3 ####[facility] LABCLIA [id number] [place] [address] [place] Lipid 1996 panelon 5 Cholesterol [Mass/Vol] 201 mg/dL High <200 [facility] Comment on above: Order Comment: Speci men Type: BLOOD SPECIMENOrdering Facility: [facility] Address: [address] [place] [address] Result Comment: <200 mg/dL, Desirable 200-239 mg/dL, Borderline high >239 mg/dL, High Performed By: #### 2 4323-8 ####[facility] LABORATORYCLIA [id number] [address] [place]#### 68757-3 ####[facility] LABORATORYCLIA [id number] [address] LABCLIA [id number] [address] Cholesterol in HDL [Mass/Vol] 39 mg/dL Low >39 [facility] Comment on above: Order Comment: Speci men Type: BLOOD SPECIMENOrdering Facility: [facility] Address: [address] [place] [address] Result Comment: 40-5 9 mg/dL, Acceptable >59 mg/dL, High: Negative risk factor for coronary heart disease <40 mg/dL, Low: Positive risk factor for coronary heart disease Performed By: #### 2 4323-8 ####[facility] LABORATORYCLIA [id number] [address] [place]#### 24411-9 ####[facility] LABORATORYCLIA [id number] [address] LABCLIA [id number] [address] [place] Cholesterol in LDL [Mass/Vol] 132 mg/dL High <100 [facility] Comment on above: Order Comment: Speci men Type: BLOOD SPECIMENOrdering Facility: [facility] Address: [address] [place] [address] Result Comment: <100 mg/dL, Optimal 100-129 mg/dL, Near optimal/above optimal 130-159 mg/dL, Borderline high 160-189 mg/dL, High >189 mg/dL, Very high Secondary prevention optimal LDL Cholesterol levels are recommended to be < 70 mg/dL Performed By: #### 2 4323-8 ####[facility] LABORATORYCLIA [id number] [place] [address] [place]#### 27733-9 ####[facility] LABORATORYCLIA [id number] [place] [address] [facility] LABCLIA [id number] [place] [address] [place] Cholesterol in LDL/Cholesterol in HDL [Mass ratio] 3.38 {ratio} High <2.54 [facility] Comment on above: Order Comment: Speci men Type: BLOOD SPECIMENOrdering Facility: [facility] Address: [address] [place] [address] Result Comment: Refe rence: 1. National Cholesterol Education Program ATP III Guideline At-A-Glance Quick Desk Reference: National Heart, Lung, and Blood [place]. National Institutes of Health. 2001: NIH Publication No. 01-3305. 2. An International Atherosclerosis Society position paper: global recommendations for the management of dyslipidemia: executive summary, Atherosclerosis. 2014: 232(2):410-413. Performed By: #### 2 4323-8 ####[facility] LABORATORYCLIA [id number] [address] [place]#### 76246-7 ####[facility] LABORATORYCLIA [id number] [place] [address] [facility] LABCLIA [id number] [place] [address] [place] Cholesterol in VLDL [Mass/Vol] 30 mg/dL High <30 [facility] Comment on above: Order Comment: Speci men Type: BLOOD SPECIMENOrdering Facility: [facility] Address: [address] [place] [address] Performed By: #### 2 4323-8 ####[facility] LABORATORYCLIA [id number] [place] [address] [place]#### 11956-7 ####[facility] LABORATORYCLIA [id number] [place] [address] [facility] LABCLIA [id number] [place] [address] [place] Cholesterol non HDL [Mass/Vol] 162 mg/dL High <130 [facility] Comment on above: Order Comment: Speci men Type: BLOOD SPECIMENOrdering Facility: [facility] Address: [address] [place] [address] Result Comment: <130 mg/dL, Optimal 130-159 mg/dL, Near optimal/above optimal 160-189 mg/dL, Borderline high 190-219 mg/dL, High >219 mg/dL, Very high Secondary prevention optimal non HDL Cholesterol levels are recommended to be <100 mg/dL Performed By: #### 2 4323-8 ####[facility] LABORATORYCLIA [id number] [place] [address] [place]#### 15023-6 ####[facility] LABORATORYCLIA [id number] [place] [address] [facility] LABCLIA [id number] [place] [address] [place] Cholesterol.total/Chol esterol in HDL [Mass ratio] 5.15 {ratio} High <5.10 [facility] Comment on above: Order Comment: Speci men Type: BLOOD SPECIMENOrdering Facility: [facility] Address: [address] [place], [place] [address] Performed By: #### 2 4323-8 ####[facility] LABORATORYCLIA [id number] [place] [address] [place]#### 91131-8 ####[facility] LABORATORYCLIA [id number] [place] [address] [facility] LABCLIA [id number] [place] [address] [place] FASTING TIME 12 hrs Normal [facility] Comment on above: Order Comment: Speci men Type: BLOOD SPECIMENOrdering Facility: [facility] Address: [address] [place] [address] Performed By: #### 2 4323-8 ####[facility] LABORATORYCLIA [id number] [place] [address] [place]#### 31764-5 ####[facility] LABORATORYCLIA [id number] [address] LABCLIA [id number] [place] [address] [place] Triglyceride [Mass/Vol] 149 mg/dL Normal <150 [facility] Comment on above: Order Comment: Speci men Type: BLOOD SPECIMENOrdering Facility: [facility] Address: [address] [place] [address] Result Comment: <150 mg/dL, Normal 150-199 mg/dL, Borderline high 200-499 mg/dL, High >499 mg/dL, Very high Performed By: #### 2 4323-8 ####[facility] LABORATORYCLIA [id number] [place] [address] [place]#### 23196-6 ####[facility] LABORATORYCLIA [id number] [address] LABCLIA [id number] [place] [address] [place] PSA/PROSTATE SPECIFIC ANTIGE N SCREENINGon 09-17-2024 Prostate specific Ag [Mass/Vol] 0.05 ng/mL Normal <2.60 [facility] Comment on above: Order Comment: Speci men Type: BLOOD SPECIMENOrdering Facility: [facility] Address: [address] [place] [address] Result Comment: Tota l PSA test methodology used is the Electrochemiluminescence Immunoassay by [employer]. Total PSA values by differing methodologies cannot be interchanged. Performed By: #### P SAS1 ####[facility] JANE [id number] [place] [id number] [place] Mirza 06-08-2024 JOHN Telephone (GENKAILEYS) -- ALEJO GAGE ([id number]) 1940 M Date Time Provider Department 06/08/24 [...] 2:32 PM Signed 3mg capsules sent to [facility] in [place]. Please call Alejo AND let him know. Thank you, Cristela Andersen APRN.Komal Sena RN 06/08/2024 2:54 PM Signed Patient notified prescription sent to the [facility] in [place]. Komal Rich RN June 08, 2024 2:54 PM Allergies As of Date: 06/08/2024 Noted Allergy Reaction ATORVASTATIN 10/18/2017 16 - Unknown CRESTOR (ROSUVASTATIN CALCIUM) 04/24/2013 14 - Other: See Comments Comments: Muscle pain GLUCOSAMINE 06/27/2017 16 - Unknown Comments: Nerve pain MOTRIN (IBUPROFEN) 01/19/2006 2 - Rash PRAVASTATIN 02/19/2013 14 - Other: See Comments Comments: muscle aches KAXEUYE-GJY-TDB REDUCTASE INHIBIT*10/09/2014 14 - Other: See Comments [...] - Uncontrolled, E11.65 Insulin: Yes - Insulin [place], Disposable, (BD ULTRA-FINE BENNY PEN NEEDLE) 32 [...] rupture [* (more content not included)... Normal [facility] CNOVon 05-31-2024 CNOV Office Visit (GENSWS ) -- ALEJO GAGE ([id number]) 1940 M Date Time Provider Department 05/31/24 2:00 PM CRISTELA ANDERSEN During your visit today, we recorded the following information about you: Cristela Andersen APRN.CNP 05/31/2024 2:38 PM Signed FOLLOW UP VISIT - ENDOSCOPY Alejo Gage 1940 [id number] REFERRING PHYSICIAN: No referring provider defined for [...] - Other: See Comments Comments: muscle aches OZCTXJT-RYJ-ATX REDUCTASE INHIBIT*10/09/2014 14 - Other: See Comments [...] - Uncontrolled, E11.65 Insulin: Yes - Insulin [place], Disposable, (BD ULTRA-FINE BENNY PEN NEEDLE) 32 gauge x 5/32 Use once daily with Lantus as directed - diclofenac sodium (VOLTAREN) 1 % topical gel Apply 2 g to affected area four times daily. - flaxseed oil (OMEGA 3 ORAL) Take by mouth. - hydrocortisone 2.5 % cream Apply 1 application to affected area twice marvin (more content not included)... Normal [facility] ([id number]) 1940 M Date Time Provider Department 05/30/24 [...] - Other: See Comments Comments: muscle aches TKSPJMD-VFO-VVU REDUCTASE INHIBIT*10/09/2014 14 - Other: See Comments [...] - Uncontrolled, E11.65 Insulin: Yes - Insulin [place], Disposable, (BD ULTRA-FINE BENNY PEN NEEDLE) 32 [...] [R73.03] 03/23/2011 (more content not included)... Normal [facility] C. DIFFICILE PCRon C. difficile toxin genes CHANTAL+probe Ql (Stl) Negative Negative for C. difficile toxin by PCR [facility] C. difficile toxin genes CHANTAL +probe Ql (Stl)on 05-24-2024 Interpretation and review of laboratory results Normal [facility] ANES POSTPROC EVALon 024 ANES POSTPROC EVAL HNO ID: [id number] Author: KARRIE BURGER MD Service: Anesthesiology Author Type: Anesthesiologist Type: Anesthesia Postprocedure Evaluation Filed: 05/23/2024 15:46 Note Text: POST ANESTHESIA EVALUATION NOTE : 1940 Procedure Summary Date: 05/23/24 Room / Location: [facility] Endoscopy Anesthesia Start: 1333 Anesthesia Stop: 141 Procedures: COLONOSCOPY DIAGNOSTIC EGD DIAGNOSTIC Diagnosis: Chronic diarrhea Generalized abdominal pain Gastroesophageal reflux disease without esophagitis (Abdominal pain in the left upper quadrant) (Abdominal pain in the left upper quadrant) Scheduled Providers: Malu Mendoza MD; Bella Hannah APRN.ENGLISH COMPOSITION TEACHER; Cristin Nieves MD Responsible Provider: Colt Rice [...] May 23, 2024 TIME: 3:46 PM CSN: [id number] Normal [facility] ANES PRE-OPon 05-23-2024 ANES PRE-OP HNO ID: [id number] Author: COLT RICE MD Service: Anesthesiology Author Type: Anesthesiologist Type: Anesthesia Preprocedure Evaluation Filed: 05/23/2024 12:45 Note Text: ANESTHESIOLOGY DAY OF SURGERY NOTE : 1940 Procedure Information Date/Time: 05/23/24 1415 Scheduled providers: Malu Mendoza MD; Bella Hannah APRN.CRNA; Cristin Nieves MD Procedures: COLONOSCOPY DIAGNOSTIC EGD DIAGNOSTIC Location: [facility] Endoscopy Estimated body mass index is [...] of common carotid artery (+) 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 Patient / Responsible Democrat agrees to proceed: yes Patient / Surrogate [...] - Uncontrolled, E11.65 Insulin: Yes - Insulin [place], Disposable, (BD ULTRA-FINE BENNY PEN NEEDLE) 32 [...] (more content not included)... Normal [facility] C diff Tox gens Stl Ql CHANTAL+p robeon 05-23-2024 C. difficile toxin genes CHANTAL+probe Ql (Stl) Negative Normal Negative for C. difficile toxin by PCR [facility] Comment on above: Order Comment: Speci men Type: STOOL SPECIMEN [facility] Address: [address] [place] [address] Performed By: #### P [facility], 21593-3, 72019-0 #### [facility] CLIA [id number] [address] [place] [address] [place] Colonoscopyon 05-23-2024 Colonoscopy [facility] Gastrointestinal Endoscopy Patient Name: Alejo Gage Procedure Date: 05/23/2024 1:44 PM Date of : 1940 Admit Type: Outpatient Age: 83 Room: [facility] Gender: Male Note Status: Finalized Attending MD: Malu Mendoza MD, [id number] Procedure: Colonoscopy Indications: Abdominal pain in the [...] anesthesia care under the supervision of a ENGLISH COMPOSITION TEACHER was determined to be medically necessary for [...] to age. Procedure Code(s): --- Professional --- 88550, Colonoscopy, flexible; with biopsy, single or multiple Diagnosis Code(s): --- Professional --- K57.30, Diverticulosis of large intestine without perforation or abscess without bleeding R19.7, Diarrhea, unspecified R10.12, Left upper quadrant pain K64.8, Other hemorrhoids CPT copyright 2020 [place] [employer]. All rights reserved. The codes documented in this report are preliminary and upon radiologic technologist chief review may be revised to meet current compliance requirements. Attending Participation: I personally performed the entire procedure. Scope In: 1:47:48 PM Scope Out: 2:05:30 PM MD Malu Huston MD 05/23/2024 2:08:39 PM This report has been signed electronically by Malu Mendoza MD Number of Addenda: 0 Note Initiated On: 05/23/2024 1:44 PM Estimated Blood Loss: Estimated blood loss was minimal. Normal [facility] ECG COMPLETEon 05-23-2024 Atrial Rate 66 BPM [facility] Calculated R [place] 120 degrees [facility] Calculated T [place] 154 degrees [facility] P-R Interval 154 ms [facility] QRS Duration 96 ms [facility] QT Interval 432 ms [facility] QTC Calculation (Bazett) 452 ms [facility] Ventricular Rate 66 BPM [facility] NORMAL SINUS RHYTHM LOW VOLTAGE QRS LEFT POSTERIOR FASCICULAR BLOCK POSSIBLE INFERIOR INFARCT (CITED ON OR BEFORE 23-May-2024) ABNORMAL ECG WHEN COMPARED WITH ECG OF 23-May-2024 13:02, NO SIGNIFICANT CHANGE WAS FOUND Confirmed by MARCIAL AUSTIN M.D. ([id number]) on 05/23/2024 4:02:00 PM [facility] NAME : ANISA GAGE PID : [id number] : 1940 Gender : Male Race : ORD : [id number] Procedure Date : May 23 2024 13:02:54 [...] By : CRISTELA ANDERSEN Acquired by : [id number], [facility] ECG COMPLETE Ventricular Rate : 6 6 BPM Atrial Rate : 66 BPM P-R Interval : 154 ms QRS Duration : 96 ms Q-T Interval : 432 ms QTC Calculation(Bazett) : 452 ms Calculated R [place] : 120 degrees Calculated T [place] : 154 degrees NORMAL SINUS RHYTHM LOW VOLTAGE QRS LEFT POSTERIOR FASCICULAR BLOCK POSSIBLE INFERIOR INFARCT (CITED ON OR BEFORE 23-May-2024) ABNORMAL ECG WHEN COMPARED WITH ECG OF 23-May-2024 13:02, NO SIGNIFICANT CHANGE WAS FOUND Confirmed by MARCIAL AUSTIN M.D. ([id number]) on 05/23/2024 4:02:00 PM NAME : ALEJO GAGE PID : [id number] : 1940 Gender : Male Race : ORD : [id number] Procedure Date : May 23 2024 13:02:54 [...] By : CRISTELA ANDERSEN Acquired by : [id number], [facility] EGD Study observation Narrjalen salazar 05-23-2024 [facility] Gastrointestinal Endoscopy Patient Name: Alejo Gage Procedure Date: 05/23/2024 1:23 PM Date of : 1940 Admit Type: Outpatient Age: 83 Room: [facility] Gender: Male Note Status: Finalized Attending MD: Malu Mendoza MD, [id number] Procedure: Upper GI endoscopy Indications: Abdominal pain [...] anesthesia care under the supervision of a ENGLISH COMPOSITION TEACHER was determined to be medically necessary for [...] future endoscopies Procedure Code(s): --- Professional --- 50030, Esophagogastroduodenoscopy , flexible, transoral; with biopsy, single or multiple Diagnosis Code(s): --- Professional --- R10.12, Left upper quadrant pain K44.9, Diaphragmatic hernia without obstruction or gangrene K31.89, Other diseases of stomach and duodenum CPT copyright 2020 [place] [employer]. All rights reserved. The codes documented in this report are preliminary and upon radiologic technologist chief review may be revised to meet current compliance requirements. Attending Participation: I personally performed the entire procedure. Scope In: 1:39:11 PM Scope Out: 1:43:56 PM MD Malu Huston MD 05/23/2024 1:46:49 PM This report has been signed electronically by Malu Mendoza MD Number of Addenda: 0 Note Initiated On: 05/23/2024 1:23 PM Estimated Blood Loss: Estimated blood loss was minimal. [employer]ATION [facility] Radiology Study observation (narrative) [facility] Flexible sigmoidoscopy study on 05-23-2024 [facility] Gastrointestinal Endoscopy Patient Name: Alejo Gage Procedure Date: 05/23/2024 1:44 PM Date of : 1940 Admit Type: Outpatient Age: 83 Room: [facility] Gender: Male Note Status: Finalized Attending MD: Malu Mendoza MD, [id number] Procedure: Colonoscopy Indications: Abdominal pain in the [...] anesthesia care under the supervision of a ENGLISH COMPOSITION TEACHER was determined to be medically necessary for [...] to age. Procedure Code(s): --- Professional --- 11709, Colonoscopy, flexible; with biopsy, single or multiple Diagnosis Code(s): --- Professional --- K57.30, Diverticulosis of large intestine without perforation or abscess without bleeding R19.7, Diarrhea, unspecified R10.12, Left upper quadrant pain K64.8, Other hemorrhoids CPT copyright 2020 [place] [employer]. All rights reserved. The codes documented in this report are preliminary and upon radiologic technologist chief review may be revised to meet current compliance requirements. Attending Participation: I personally performed the entire procedure. Scope In: 1:47:48 PM Scope Out: 2:05:30 PM MD Malu Huston MD 05/23/2024 2:08:39 PM This report has been signed electronically by Malu Mendoza MD Number of Addenda: 0 Note Initiated On: 05/23/2024 1:44 PM Estimated Blood Loss: Estimated blood loss was minimal. [employer]ATION [facility] Radiology Study observation (narrative) [facility] G lamblia+Cryptosp Ag Stl Ql IAon 05-23-2024 G. lamblia+Cryptosporidiu m sp Ag IA Ql (Stl) CRYPTOSPORIDIUM ANTIGEN BY EIA: Negative for Cryptosporidium by EIA. GIARDIA ANTIGEN BY EIA: Negative for Giardia lamblia by EIA. [facility] Comment on above: Performed By: #### P [facility], 36583-2, 16122-9 #### [facility] CLIA [id number] [address] [place] [address] [place] GLUCOSE, BLOOD (POC)on 05-23 Glucose [Mass/Vol] 79 mg/dL 74 - 99 mg/dL [facility] Comment on above: Location:[facility] ital, [address], [place], [address] The Accu-Chek Inform II glucose meter has [...] blood gas instrument) in the above situations. [facility] Glucose [Mass/Vol] 85 mg/dL 74 - 99 mg/dL [facility] Comment on above: Location:[facility] ital, [address], [place], [address] The Accu-Chek Inform II glucose meter has [...] blood gas instrument) in the above situations. [facility] Gastrointestinal pathogens i dentified CHANTAL+probe Nom (Stl)on 05-23-2024 Campylobacter sp DNA CHANTAL+probe Nom (Unsp spec) Not detected Normal Not Detected [facility] Comment on above: Order Comment: Speci bharath Type: STOOL SPECIMEN [facility] Address: [address] [place] [address] Performed By: #### 7 9390-1 #### [facility] CLIA [id number] [address] [place] [address] [place] [address] [place] Salmonella sp DNA CHANTAL+probe Ql (Unsp spec) Not detected Normal Not Detected [facility] Comment on above: Order Comment: Speci men Type: STOOL SPECIMEN Ordering Facility: [facility] Address: [address] [place] [address] Performed By: #### 7 9390-1 #### [facility] CLIA [id number] [address] [place] [address] Shiga toxin stx gene CHANTAL+probe Nom (Unsp spec) Not detected Normal Not Detected [facility] Comment on above: Order Comment: Speci men Type: STOOL SPECIMEN [facility]ing Facility: [facility] Address: [address] [place] [address] Performed By: #### 7 9390-1 #### [facility] CLIA [id number] [address] [place] [address] [place] Shigella sp DNA CHANTAL+probe Ql (Unsp spec) Not detected Normal Not Detected [facility] Comment on above: Order Comment: Speci men Type: STOOL SPECIMEN [facility]ing Facility: [facility] Address: [address] [place] [address] Performed By: #### 7 9390-1 #### [facility] CLIA [id number] [address] [place] [address] [place] HISTORY PHYSICALon HISTORY PHYSICAL HNO ID: [id number] Author: MALU MENDOZA MD Service: General Surgery Author Type: Physician Type: H&P Filed: 05/23/2024 13:31 Note Text: HISTORY AND PHYSICAL Alejo Gage : 1940 REFERRING PHYSICIAN: Samson Ragsdale [address] [facility] [address] CHIEF COMPLAINT: Patient presents with: Consult: Colonoscopy [...] 2022 EF of 53%. Alejo follows with [facility] had elective cath 06/2023 due to positive stress test. 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 Currently takes plavix. Follows with Dr. Petersen at [facility]. Last OV 07/2023 Alejo has a hx of Alzheimers dementia Alejo has undergone prior endoscopy. Last EGD ANDcolonoscopy 04/2017 with At [facility] for anemia Impression: -Findings suggest upper [...] - Uncontrolled, E11.65 Insulin: Yes CRANBERRY Insulin [place], Disposable, (BD ULTRA-FINE BENNY PEN NEEDLE) 32 [...] [Rosuvastatin Calcium], Glucosamine, Motrin [Ibuprofen], Pravastatin, and Rulvsgg-Yht-Dhd Reductase Inhibitors PAST MEDICAL HISTORY 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 09/2015 4.15 cm Acute gastritis without mention of hemorrhage (more content not included)... Normal [facility] PANC ELASTASE, FECALon 05-23 ELASTASE INTERPRETATION Normal Normal Normal [facility] Comment on above: Order Comment: Speci men Type: STOOL SPECIMENOrdering Facility: [facility] Address: [address] [place] [address] Performed By: #### P ANCEF, 75461-2, 82670-3 ####[facility] [id number] [place] [address] [place] ELASTASE-1 CONCENTRATION 308 ug/g Normal >=200 [facility] Comment on above: Order Comment: Speci men Type: STOOL SPECIMENOrdering Facility: [facility] Address: [address] [place] [address] Result Comment: Inte rpretation: <100 ug/g: Severe Exocrine Pancreatic Insufficiency 100-199 ug/g: Mild to Moderate Exocrine Pancreatic Insufficiency >=200 ug/g: Normal Performed By: #### P ANCEF, 70485-4, 02957-3 ####[facility] [id number] [place] [address] [place] SURGICAL PATHOLOGYon 024 CASE REPORT Normal [facility] Comment on above: Order Comment: Speci men Type: TISSUE SPECIMEN Ordering Facility: [facility] Address: [address] [place] [address] Result Comment: Surg [facility] Pathology Report Case: [id number] Authorizing Provider: Malu Mendoza MD Collected: 05/23/2024 01:42 PM Ordering Location: [facility] Endoscopy Received: 05/23/2024 03:08 PM Pathologist: Hari Umaña MD Specimens: A) - Small Bowel, Duodenum, Biopsy, sprue B) - Stomach, Biopsy, hp C) - Colon, Biopsy, random Performed By: #### S #### [facility] CLIA [id number] [address] [place] [address] [place] CLINICAL HISTORY A. Normal [facility] Comment on above: Order Comment: Speci men Type: TISSUE SPECIMEN Ordering Facility[facility] Address: [address] [place] [address] Performed By: #### S #### [facility] CLIA [id number] [address] [place] [address] [place] FINAL DIAGNOSIS [facility] Comment on above: Order Comment: Speci men Type: TISSUE SPECIMEN Ordering Facility[facility] Address: [address] [place] [address] Result Comment: ABonnie Delarosa uodenum, biopsy: -Small intestinal mucosa with no diagnostic alteration -No evidence of celiac disease B. Stomach, biopsy: -Antral mucosa with no diagnostic alteration -No morphologic evidence of Helicobacter pylori C. Random colon, biopsy: -Collagenous colitis Performed By: #### S #### [facility] CLIA [id number] [address] [place] [address] OF [facility] FINAL PERFORMING LAB [facility] Comment on above: Order Comment: Speci men Type: TISSUE SPECIMEN Ordering Facility: [facility] Address: [address] [place] [address] Result Comment: Diag nostic interpretation performed at [facility], [address] [place] [address] CLIA# [id number] Pleat Patternmaker: Jose Guadalupe Herrera M.D. Performed By: #### S #### [facility] CLIA [id number] [address] [place] [address] OF [facility] GROSS DESCRIPTION [facility] Comment on above: Order Comment: Speci men Type: TISSUE SPECIMEN Ordering Facility: [facility] Address: [address] [place] [address] Result Comment: A. S mall Bowel, Duodenum, [...] 0.2 cm. Totally submitted in two cassettes. [facility] May 23, 2024 8:21 PM [place] [address] Performed By: #### S #### [facility] CLIA [id number] [address] [place], [place] [address] [address] [place] Upper GI endoscopyon 10-23-2 024 Upper GI endoscopy [facility] Gastrointestinal Endoscopy Patient Name: Alejo Gage Procedure Date: 05/23/2024 1:23 PM Date of : 1940 Admit Type: Outpatient Age: 83 Room: [facility] Gender: Male Note Status: Finalized Attending MD: Malu Mendoza MD, [id number] Procedure: Upper GI endoscopy Indications: Abdominal pain [...] anesthesia care under the supervision of a ENGLISH COMPOSITION TEACHER was determined to be medically necessary for [...] future endoscopies Procedure Code(s): --- Professional --- 61505, Esophagogastroduodenoscopy , flexible, transoral; with biopsy, single or multiple Diagnosis Code(s): --- Professional --- R10.12, Left upper quadrant pain K44.9, Diaphragmatic hernia without obstruction or gangrene K31.89, Other diseases of stomach and duodenum CPT copyright 2020 [employer]. All rights reserved. The codes documented in this report are preliminary and upon radiologic technologist chief review may be revised to meet current compliance requirements. Attending Participation: I personally performed the entire procedure. Scope In: 1:39:11 PM Scope Out: 1:43:56 PM MD Malu Huston MD 05/23/2024 1:46:49 PM This report has been signed electronically by Malu Mendoza MD Number of Addenda: 0 Note Initiated On: 05/23/2024 1:23 PM Estimated Blood Loss: Estimated blood loss was minimal. Normal [facility] .Auto Diffon 05-28-2023 Basophil, Absolute 0.0 10 3/mcL Normal 0.0-0.3 [facility] ([place]) Comment on above: Performed By: #### A DIFF, ANEU, GFR, BMP, CBC #### [address] [address] Basophils/100 WBC (Bld) 0.2 % Normal 0.0-2.5 [facility] ([place]) Comment on above: Performed By: #### A DIFF, ANEU, GFR, BMP, CBC #### [address] [address] Eosinophil, Absolute 0.1 10 3/mcL Normal 0.0-0.7 [facility] ([place]) Comment on above: Performed By: #### A DIFF, ANEU, GFR, BMP, CBC #### [address] [address] Eosinophils/100 WBC (Bld) 0.7 % Normal 0.0-6.0 [facility] ([place]) Comment on above: Performed By: #### A DIFF, ANEU, GFR, BMP, CBC #### [address] [address] Lymphocyte, Absolute 1.8 10 3/mcL Normal 0.9-4.3 [facility] ([place]) Comment on above: Performed By: #### A DIFF, ANEU, GFR, BMP, CBC #### [address] [address] Lymphocytes/100 WBC (Bld) 14.6 % Low 20.0-40.0 [facility] ([place]) Comment on above: Performed By: #### A DIFF, ANEU, GFR, BMP, CBC #### [address] [address] Monocyte, Absolute 1.1 10 3/mcL Normal 0.1-1.4 [facility] ([place]) Comment on above: Performed By: #### A DIFF, ANEU, GFR, BMP, CBC #### [address] [address] Monocytes/100 WBC (Bld) 9.6 % Normal 2.0-13.0 [facility] ([place]) Comment on above: Performed By: #### A DIFF, ANEU, GFR, BMP, CBC #### [address] [address] Neutrophils/100 WBC (Bld) 74.9 % Normal 50.0-75.0 [facility] ([place] Comment on above: Performed By: #### A DIFF, ANEU, GFR, BMP, CBC #### [address] [address] .GFRon 05-28-2023 GFR Non- 38 ml/min/1.73sqm Normal [facility] ([place]) Comment on above: Result Comment: GFR [...] A DIFF, ANEU, GFR, BMP, CBC #### [address] [address] GFR 46 ml/min/1.73sqm Normal [facility] ([place]) Comment on above: Result Comment: GFR Population [...] A DIFF, ANEU, GFR, BMP, CBC #### [address] [address] .NEUABSon 05-28-2023 Neutrophil, Absolute 9.0 10 3/mcL High 2.3-8.1 [facility] ([place]) Comment on above: Performed By: #### A DIFF, ANEU, GFR, BMP, CBC #### [address] [address] BMPon 05-28-2023 BUN/Creatinine Ratio 12.6 ratio Normal 10.0-22.0 [facility] ([place]) Comment on above: Performed By: #### A DIFF, ANEU, GFR, BMP, CBC #### [address] [address] Calcium [Mass/Vol] 8.4 mg/dL Low 8.7-10.4 [facility] ([place]) Comment on above: Performed By: #### A DIFF, ANEU, GFR, BMP, CBC #### [address] [address] Chloride [Moles/Vol] 111 mmol/L High 98-110 [facility] ([place]) Comment on above: Performed By: #### A DIFF, ANEU, GFR, BMP, CBC #### [address] [address] CO2 [Moles/Vol] 27 mmol/L Normal 22-32 [facility] ([place] Comment on above: Performed By: #### A DIFF, ANEU, GFR, BMP, CBC #### [address] [address] Creatinine [Mass/Vol] 1.75 mg/dL High 0.60-1.40 [facility] ([place]) Comment on above: Performed By: #### A DIFF, ANEU, GFR, BMP, CBC #### [address] [address] Electrolyte Balance 5.0 mEq/L Normal 4.0-15.0 [facility] ([place]) Comment on above: Performed By: #### A DIFF, ANEU, GFR, BMP, CBC #### [address] [address] Glucose [Mass/Vol] 121 mg/dL High 82-115 [facility] ([place]) Comment on above: Performed By: #### A DIFF, ANEU, GFR, BMP, CBC #### [address] [address] Potassium [Moles/Vol] 4.2 mmol/L Normal 3.5-5.0 [facility] ([place]) Comment on above: Performed By: #### A DIFF, ANEU, GFR, BMP, CBC #### [address] [address] Sodium [Moles/Vol] 143 mmol/L Normal 136-145 [facility] ([place]) Comment on above: Performed By: #### A DIFF, ANEU, GFR, BMP, CBC #### [place] [id number] Urea nitrogen [Mass/Vol] 22.0 mg/dL Normal 8.0-22.0 [facility] ([place]) Comment on above: Performed By: #### A DIFF, ANEU, GFR, BMP, CBC #### [place] [address] CBCon 05-28-2023 Erythrocyte distribution width (RBC) [Ratio] 14.9 % Normal 11.5-15.5 [facility] ([place] Comment on above: Performed By: #### A DIFF, ANEU, GFR, BMP, CBC #### [place] [address] Hematocrit (Bld) [Volume fraction] 27.7 % Low 40.0-52.0 [facility] ([place]) Comment on above: Performed By: #### A DIFF, ANEU, GFR, BMP, CBC #### [place] [address] Hgb 9.0 G/dL Low 13.0-17.5 [facility] ([place] Comment on above: Performed By: #### A DIFF, ANEU, GFR, BMP, CBC #### [place] [address] MCH (RBC) [Entitic mass] 29.0 pg Normal 27.0-33.0 [facility] ([place]) Comment on above: Performed By: #### A DIFF, ANEU, GFR, BMP, CBC #### [place] [address] MCHC 32.6 G/dL Normal 32.0-36.0 [facility] ([place] Comment on above: Performed By: #### A DIFF, ANEU, GFR, BMP, CBC #### [place] [address] MCV (RBC) [Entitic vol] 89.2 fL Normal 81.0-100.0 [facility] ([place]) Comment on above: Performed By: #### A DIFF, ANEU, GFR, BMP, CBC #### [place] [address] Platelet 205 10 3/mcL Normal 150-450 [facility] ([place] Comment on above: Performed By: #### A DIFF, ANEU, GFR, BMP, CBC #### [place] [address] Platelet mean volume (Bld) [Entitic vol] 8.1 fL Normal 6.4-10.5 [facility] ([place]) Comment on above: Performed By: #### A DIFF, ANEU, GFR, BMP, CBC #### [place] [address] RBC 3.11 10 6/mcL Low 4.50-6.00 [facility] ([place]) Comment on above: Performed By: #### A DIFF, ANEU, GFR, BMP, CBC #### [place] [address] WBC 12.0 10 3/mcL High 4.5-10.8 [facility] ([place]) Comment on above: Performed By: #### A DIFF, ANEU, GFR, BMP, CBC #### [place] [address] LABORATORYOrdered By: SYSTEM SYSTEM on 05-28-2023 Basophils [...] [Vol rate/Area] 46 ml/min/1.73sqm Invalid Interpretation Code [facility] Comment on above: Interpretive Data: GFR [...] [Vol rate/Area] 38 ml/min/1.73sqm Invalid Interpretation Code [facility] Comment on above: Interpretive Data: GFR [...] Invalid Interpretation Code 82 - 115 mg/dL [facility] Hematocrit (Bld) [Volume fraction] 27.7 % [...] [Mass/Vol] 1.8 mg/dL Normal 1.6-2.4 [facility] ([place]) Comment on above: Performed By: #### A DIFF, ANEU, GFR, BMP, CBC #### [address] [address] .Auto Diffon 05-27-2023 Basophil, Absolute 0.0 10 3/mcL Normal 0.0-0.3 [facility] ([place]) Comment on above: Performed By: #### M G, ADIFF, BMP, GFR, ANEU, CBC #### [address] [address] Basophils/100 WBC (Bld) 0.2 % Normal 0.0-2.5 [facility] ([place]) Comment on above: Performed By: #### M G, ADIFF, BMP, GFR, ANEU, CBC #### [address] [address] Eosinophil, Absolute 0.3 10 3/mcL Normal 0.0-0.7 [facility] ([place]) Comment on above: Performed By: #### M G, ADIFF, BMP, GFR, ANEU, CBC #### [address] [address] Eosinophils/100 WBC (Bld) 2.4 % Normal 0.0-6.0 [facility] ([place]) Comment on above: Performed By: #### M G, ADIFF, BMP, GFR, ANEU, CBC #### [address] [address] Lymphocyte, Absolute 2.5 10 3/mcL Normal 0.9-4.3 [facility] ([place]) Comment on above: Performed By: #### M G, ADIFF, BMP, GFR, ANEU, CBC #### [address] [address] Lymphocytes/100 WBC (Bld) 23.0 % Normal 20.0-40.0 [facility] ([place] Comment on above: Performed By: #### M G, ADIFF, BMP, GFR, ANEU, CBC #### [address] [address] Monocyte, Absolute 1.0 10 3/mcL Normal 0.1-1.4 [facility] ([place]) Comment on above: Performed By: #### M G, ADIFF, BMP, GFR, ANEU, CBC #### [address] [address] Monocytes/100 WBC (Bld) 9.2 % Normal 2.0-13.0 [facility] ([place] Comment on above: Performed By: #### M G, ADIFF, BMP, GFR, ANEU, CBC #### [address] [address] Neutrophils/100 WBC (Bld) 65.2 % Normal 50.0-75.0 [facility] ([place] Comment on above: Performed By: #### M G, ADIFF, BMP, GFR, ANEU, CBC #### [address] [address] .GFRon 05-27-2023 GFR 40 ml/min/1.73sqm Normal [facility] ([place]) Comment on above: Result Comment: GFR Population [...] A DIFF, ANEU, GFR, BMP, CBC #### [address] [address] GFR Non- 33 ml/min/1.73sqm Normal [facility] ([place]) Comment on above: Result Comment: GFR Population [...] A DIFF, ANEU, GFR, BMP, CBC #### [address] [address] .NEUABSon 05-27-2023 Neutrophil, Absolute 7.2 10 3/mcL Normal 2.3-8.1 [facility] ([place]) Comment on above: Performed By: #### M G ADIFF, BMP, GFR, ANEU, CBC #### [address] [address] BMPon 05-27-2023 BUN/Creatinine Ratio 11.3 ratio Normal 10.0-22.0 [facility] ([place]) Comment on above: Performed By: #### A DIFF, ANEU, GFR, BMP, CBC #### [address] [address] Calcium [Mass/Vol] 8.6 mg/dL Low 8.7-10.4 [facility] ([place]) Comment on above: Performed By: #### A DIFF, ANEU, GFR, BMP, CBC #### [address] [address] Chloride [Moles/Vol] 110 mmol/L Normal 98-110 [facility] ([place]) Comment on above: Performed By: #### A DIFF, ANEU, GFR, BMP, CBC #### [address] [address] CO2 [Moles/Vol] 30 mmol/L Normal 22-32 [facility] ([place]) Comment on above: Performed By: #### A DIFF, ANEU, GFR, BMP, CBC #### [address] [address] Creatinine [Mass/Vol] 1.94 mg/dL High 0.60-1.40 [facility] ([place]) Comment on above: Performed By: #### A DIFF, ANEU, GFR, BMP, CBC #### [address] [address] Electrolyte Balance 2.0 mEq/L Low 4.0-15.0 [facility] ([place]) Comment on above: Performed By: #### A DIFF, ANEU, GFR, BMP, CBC #### [address] [address] Glucose [Mass/Vol] 105 mg/dL Normal 82-115 [facility] ([place]) Comment on above: Performed By: #### A DIFF, ANEU, GFR, BMP, CBC #### [address] [address] Potassium [Moles/Vol] 4.1 mmol/L Normal 3.5-5.0 [facility] ([place]) Comment on above: Performed By: #### A DIFF, ANEU, GFR, BMP, CBC #### [address] [address] Sodium [Moles/Vol] 142 mmol/L Normal 136-145 [facility] ([place]) Comment on above: Performed By: #### A DIFF, ANEU, GFR, BMP, CBC #### [address] [address] Urea nitrogen [Mass/Vol] 22.0 mg/dL Normal 8.0-22.0 [facility] ([place]) Comment on above: Performed By: #### A DIFF, ANEU, GFR, BMP, CBC #### [address] [address] CBCon 05-27-2023 Erythrocyte distribution width (RBC) [Ratio] 15.4 % Normal 11.5-15.5 [facility] ([place]) Comment on above: Performed By: #### M G, ADIFF, BMP, GFR, ANEU, CBC #### [place] [address] Hematocrit (Bld) [Volume fraction] 33.3 % Low 40.0-52.0 [facility] ([place]) Comment on above: Performed By: #### M G, ADIFF, BMP, GFR, ANEU, CBC #### [place] [address] Hgb 10.9 G/dL Low 13.0-17.5 [facility] ([place]) Comment on above: Performed By: #### M G, ADIFF, BMP, GFR, ANEU, CBC #### [place] [address] MCH (RBC) [Entitic mass] 29.2 pg Normal 27.0-33.0 [facility] ([place]) Comment on above: Performed By: #### M G, ADIFF, BMP, GFR, ANEU, CBC #### [place] [address] MCHC 32.6 G/dL Normal 32.0-36.0 [facility] ([place]) Comment on above: Performed By: #### M G, ADIFF, BMP, GFR, ANEU, CBC #### [place] [address] MCV (RBC) [Entitic vol] 89.6 fL Normal 81.0-100.0 [facility] ([place]) Comment on above: Performed By: #### M G, ADIFF, BMP, GFR, ANEU, CBC #### [place] [address] Platelet 228 10 3/mcL Normal 150-450 [facility] ([place]) Comment on above: Performed By: #### M G, ADIFF, BMP, GFR, ANEU, CBC #### [place] [address] Platelet mean volume (Bld) [Entitic vol] 7.9 fL Normal 6.4-10.5 [facility] ([place]) Comment on above: Performed By: #### M G, ADIFF, BMP, GFR, ANEU, CBC #### [place] [address] RBC 3.72 10 6/mcL Low 4.50-6.00 [facility] ([place]) Comment on above: Performed By: #### M G, ADIFF, BMP, GFR, ANEU, CBC #### [address] [address] WBC 11.1 10 3/mcL High 4.5-10.8 [facility] ([place]) Comment on above: Performed By: #### M G, ADIFF, BMP, GFR, ANEU, CBC #### [place] [address] [address] [place] [address] LABORATORYOrdered By: Milena Mccain on 05-27-2023 Cholesterol [...] [Vol rate/Area] 40 ml/min/1.73sqm Invalid Interpretation Code [facility] Comment on above: Interpretive Data: GFR [...] [Vol rate/Area] 33 ml/min/1.73sqm Invalid Interpretation Code [facility] Comment on above: Interpretive Data: GFR [...] Invalid Interpretation Code 82 - 115 mg/dL [facility] Hematocrit (Bld) [Volume fraction] 33.3 % [...] 05-27-2023 Cholesterol [Mass/Vol] 163 mg/dL Normal 50-199 [facility] ([place]) Comment on above: Order Comment: add t o existing specimen Result Comment: Chol esterol Reference Interval: Less than 200 Desirable 200-239 Borderline high risk 240 and above High risk Performed By: #### L IPID #### [address] [address] Cholesterol in HDL [Mass/Vol] 31 mg/dL Low 40-59 [facility] ([place]) Comment on above: Order Comment: add t o existing specimen Performed By: #### L IPID #### [address] [address] Cholesterol in LDL [Mass/Vol] 100 mg/dL Normal 0-129 [facility] ([place]) Comment on above: Order Comment: add t o existing specimen Performed By: #### L IPID #### [address] [address] Triglyceride [Mass/Vol] 160 mg/dL High 3-149 [facility] ([place]) Comment on above: Order Comment: add t o existing specimen Performed By: #### L IPID #### [address] [address] MGon 05-27-2023 Magnesium [Mass/Vol] 2.1 mg/dL Normal 1.6-2.4 [facility] ([place]) Comment on above: Performed By: #### A DIFF, ANEU, GFR, BMP, CBC #### [address] [address] .Auto Diffon 05-26-2023 Basophil, Absolute 0.0 10 3/mcL Normal 0.0-0.3 [facility] ([place]) Comment on above: Performed By: #### A DIFF, ANEU, GFR, BMP, CBC #### [address] [address] Basophils/100 WBC (Bld) 0.3 % Normal 0.0-2.5 [facility] ([place]) Comment on above: Performed By: #### A DIFF, ANEU, GFR, BMP, CBC #### [address] [address] Eosinophil, Absolute 0.2 10 3/mcL Normal 0.0-0.7 [facility] ([place]) Comment on above: Performed By: #### A DIFF, ANEU, GFR, BMP, CBC #### [address] [address] Eosinophils/100 WBC (Bld) 2.0 % Normal 0.0-6.0 [facility] ([place]) Comment on above: Performed By: #### A DIFF, ANEU, GFR, BMP, CBC #### [address] [address] Lymphocyte, Absolute 1.7 10 3/mcL Normal 0.9-4.3 [facility] ([place]) Comment on above: Performed By: #### A DIFF, ANEU, GFR, BMP, CBC #### [address] [address] Lymphocytes/100 WBC (Bld) 18.5 % Low 20.0-40.0 [facility] ([place]) Comment on above: Performed By: #### A DIFF, ANEU, GFR, BMP, CBC #### [address] [address] Monocyte, Absolute 0.9 10 3/mcL Normal 0.1-1.4 [facility] ([place]) Comment on above: Performed By: #### A DIFF, ANEU, GFR, BMP, CBC #### [address] [address] Monocytes/100 WBC (Bld) 9.5 % Normal 2.0-13.0 [facility] ([place]) Comment on above: Performed By: #### A DIFF, ANEU, GFR, BMP, CBC #### [address] [address] Neutrophils/100 WBC (Bld) 69.7 % Normal 50.0-75.0 [facility] ([place]) Comment on above: Performed By: #### A DIFF, ANEU, GFR, BMP, CBC #### [address] [address] .GFRon 05-26-2023 GFR 38 ml/min/1.73sqm Normal [facility] ([place]) Comment on above: Result Comment: GFR Population [...] A DIFF, ANEU, GFR, BMP, CBC #### [place] [address] GFR Non- 32 ml/min/1.73sqm Normal [facility] ([place]) Comment on above: Result Comment: GFR Population [...] A DIFF, ANEU, GFR, BMP, CBC #### [address] [address] .NEUABSon 05-26-2023 Neutrophil, Absolute 6.3 10 3/mcL Normal 2.3-8.1 [facility] ([place]) Comment on above: Performed By: #### A DIFF, ANEU, GFR, BMP, CBC #### [address] [address] BMPon 05-26-2023 BUN/Creatinine Ratio 12.3 ratio Normal 10.0-22.0 [facility] ([place]) Comment on above: Performed By: #### A DIFF, ANEU, GFR, BMP, CBC #### [place] [address] Calcium [Mass/Vol] 8.7 mg/dL Normal 8.7-10.4 [facility] ([place]) Comment on above: Performed By: #### A DIFF, ANEU, GFR, BMP, CBC #### [place] [address] Chloride [Moles/Vol] 109 mmol/L Normal 98-110 [facility] ([place]) Comment on above: Performed By: #### A DIFF, ANEU, GFR, BMP, CBC #### [place] [address] CO2 [Moles/Vol] 30 mmol/L Normal 22-32 [facility] ([place]) Comment on above: Performed By: #### A DIFF, ANEU, GFR, BMP, CBC #### [place] [address] Creatinine [Mass/Vol] 2.03 mg/dL High 0.60-1.40 [facility] ([place]) Comment on above: Performed By: #### A DIFF, ANEU, GFR, BMP, CBC #### [place] [address] Electrolyte Balance 2.0 mEq/L Low 4.0-15.0 [facility] ([place]) Comment on above: Performed By: #### A DIFF, ANEU, GFR, BMP, CBC #### [place] [address] Glucose [Mass/Vol] 105 mg/dL Normal 82-115 [facility] ([place]) Comment on above: Performed By: #### A DIFF, ANEU, GFR, BMP, CBC #### [place] [address] Potassium [Moles/Vol] 3.9 mmol/L Normal 3.5-5.0 [facility] ([place]) Comment on above: Result Comment: Spec imen slightly hemolyzed. Performed By: #### A DIFF, ANEU, GFR, BMP, CBC #### [place] [address] Sodium [Moles/Vol] 141 mmol/L Normal 136-145 [facility] ([place] Comment on above: Performed By: #### A DIFF, ANEU, GFR, BMP, CBC #### [place] [address] Urea nitrogen [Mass/Vol] 25.0 mg/dL High 8.0-22.0 [facility] ([place] Comment on above: Performed By: #### A DIFF, ANEU, GFR, BMP, CBC #### [place] [address] CBCon 05-26-2023 Erythrocyte distribution width (RBC) [Ratio] 15.1 % Normal 11.5-15.5 [facility] ([place]) Comment on above: Performed By: #### A DIFF, ANEU, GFR, BMP, CBC #### [place] [address] Hematocrit (Bld) [Volume fraction] 33.6 % Low 40.0-52.0 [facility] ([place] Comment on above: Performed By: #### A DIFF, ANEU, GFR, BMP, CBC #### [place] [address] Hgb 11.1 G/dL Low 13.0-17.5 [facility] ([place] Comment on above: Performed By: #### A DIFF, ANEU, GFR, BMP, CBC #### [place] [place] [address] MCH (RBC) [Entitic mass] 29.4 pg Normal 27.0-33.0 [facility] ([place]) Comment on above: Performed By: #### A DIFF, ANEU, GFR, BMP, CBC #### [place] [address] MCHC 33.1 G/dL Normal 32.0-36.0 [facility] ([place]) Comment on above: Performed By: #### A DIFF, ANEU, GFR, BMP, CBC #### [address] [address] MCV (RBC) [Entitic vol] 88.8 fL Normal 81.0-100.0 [facility] ([place]) Comment on above: Performed By: #### A DIFF, ANEU, GFR, BMP, CBC #### [address] [address] Platelet 238 10 3/mcL Normal 150-450 [facility] ([place]) Comment on above: Performed By: #### A DIFF, ANEU, GFR, BMP, CBC #### [address] [address] Platelet mean volume (Bld) [Entitic vol] 8.0 fL Normal 6.4-10.5 [facility] ([place]) Comment on above: Performed By: #### A DIFF, ANEU, GFR, BMP, CBC #### [address] [address] RBC 3.78 10 6/mcL Low 4.50-6.00 [facility] ([place]) Comment on above: Performed By: #### A DIFF, ANEU, GFR, BMP, CBC #### [address] [address] WBC 9.0 10 3/mcL Normal 4.5-10.8 [facility] ([place]) Comment on above: Performed By: #### A DIFF, ANEU, GFR, BMP, CBC #### [address] [address] LABORATORYOrdered By: Steffi Leon on 05-26-2023 Blood Glucose Testing Reason Routine (05/26/23 9:21 PM) [facility] Work Phone: Glucose [Mass/Vol] 132 mg/dL Invalid Interpretation Code 82 - 115 mg/dL [facility] Work Phone: LABORATORYOrdered By: Stacey Jiménez on 05-26-2023 Blood Glucose Testing Reason Routine (05/26/23 4:22 PM) [facility] Work Phone: Glucose [Mass/Vol] 124 mg/dL Invalid Interpretation Code 82 - 115 mg/dL [facility] Work Phone: LABORATORYOrdered By: Jordi Claire on 05-26-2023 Glucose [Mass/Vol] 149 mg/dL Invalid Interpretation Code 82 - 115 mg/dL [facility] Work Phone: LABORATORYOrdered By: Sydnie Bundy on 05-26-2023 Blood Glucose Testing Reason Routine (05/26/23 7:07 AM) [facility] Work Phone: LABORATORYOrdered By: SYSTEM SYSTEM on [...] [Mass/Vol] 1.8 mg/dL Normal 1.6-2.4 [facility] ([place]) Comment on above: Performed By: #### M G #### [address] [address] .Auto Diffon 05-25-2023 Basophil, Absolute 0.0 10 3/mcL Normal 0.0-0.3 [facility] ([place]) Comment on above: Performed By: #### A DIFF, ANEU, GFR, BMP, CBC #### [address] [address] Basophils/100 WBC (Bld) 0.4 % Normal 0.0-2.5 [facility] ([place]) Comment on above: Performed By: #### A DIFF, ANEU, GFR, BMP, CBC #### [address] [address] Eosinophil, Absolute 0.3 10 3/mcL Normal 0.0-0.7 [facility] ([place]) Comment on above: Performed By: #### A DIFF, ANEU, GFR, BMP, CBC #### [address] [address] Eosinophils/100 WBC (Bld) 3.0 % Normal 0.0-6.0 [facility] ([place]) Comment on above: Performed By: #### A DIFF, ANEU, GFR, BMP, CBC #### [address] [address] Lymphocyte, Absolute 2.6 10 3/mcL Normal 0.9-4.3 [facility] ([place]) Comment on above: Performed By: #### A DIFF, ANEU, GFR, BMP, CBC #### [address] [address] Lymphocytes/100 WBC (Bld) 28.3 % Normal 20.0-40.0 [facility] ([place]) Comment on above: Performed By: #### A DIFF, ANEU, GFR, BMP, CBC #### [address] [address] Monocyte, Absolute 0.7 10 3/mcL Normal 0.1-1.4 [facility] ([place]) Comment on above: Performed By: #### A DIFF, ANEU, GFR, BMP, CBC #### [address] [address] Monocytes/100 WBC (Bld) 7.9 % Normal 2.0-13.0 [facility] ([place] Comment on above: Performed By: #### A DIFF, ANEU, GFR, BMP, CBC #### [address] [address] Neutrophils/100 WBC (Bld) 60.4 % Normal 50.0-75.0 [facility] ([place]) Comment on above: Performed By: #### A DIFF, ANEU, GFR, BMP, CBC #### [address] [address] Basophil, Absolute 0.1 10 3/mcL Normal 0.0-0.3 [facility] ([place]) Comment on above: Performed By: #### A DIFF, ANEU, GFR, BMP, CBC #### [address] [address] Basophils/100 WBC (Bld) 0.7 % Normal 0.0-2.5 [facility] ([place]) Comment on above: Performed By: #### A DIFF, ANEU, GFR, BMP, CBC #### [address] [address] Eosinophil, Absolute 0.3 10 3/mcL Normal 0.0-0.7 [facility] ([place]) Comment on above: Performed By: #### A DIFF, ANEU, GFR, BMP, CBC #### [address] [address] Eosinophils/100 WBC (Bld) 2.8 % Normal 0.0-6.0 [facility] ([place]) Comment on above: Performed By: #### A DIFF, ANEU, GFR, BMP, CBC #### [address] [address] Lymphocyte, Absolute 2.1 10 3/mcL Normal 0.9-4.3 [facility] ([place]) Comment on above: Performed By: #### A DIFF, ANEU, GFR, BMP, CBC #### [address] [address] Lymphocytes/100 WBC (Bld) 21.3 % Normal 20.0-40.0 [facility] ([place]) Comment on above: Performed By: #### A DIFF, ANEU, GFR, BMP, CBC #### [address] [address] Monocyte, Absolute 0.7 10 3/mcL Normal 0.1-1.4 [facility] ([place]) Comment on above: Performed By: #### A DIFF, ANEU, GFR, BMP, CBC #### [address] [address] Monocytes/100 WBC (Bld) 7.7 % Normal 2.0-13.0 [facility] ([place] Comment on above: Performed By: #### A DIFF, ANEU, GFR, BMP, CBC #### [address] [address] Neutrophils/100 WBC (Bld) 67.5 % Normal 50.0-75.0 [facility] ([place] Comment on above: Performed By: #### A DIFF, ANEU, GFR, BMP, CBC #### [address] [address] .GFRon 05-25-2023 GFR Non- 31 ml/min/1.73sqm Normal [facility] ([place]) Comment on above: Result Comment: GFR Population [...] A DIFF, ANEU, GFR, BMP, CBC #### [address] [address] GFR 38 ml/min/1.73sqm Normal [facility] ([place]) Comment on above: Result Comment: GFR Population [...] A DIFF, ANEU, GFR, BMP, CBC #### [address] [address] GFR 36 ml/min/1.73sqm Normal [facility] ([place]) Comment on above: Result Comment: GFR Population [...] A DIFF, ANEU, GFR, BMP, CBC #### [address] [address] GFR Non- 30 ml/min/1.73sqm Normal [facility] ([place]) Comment on above: Result Comment: GFR Population [...] A DIFF, ANEU, GFR, BMP, CBC #### [address] [address] .NEUABSon 05-25-2023 Neutrophil, Absolute 5.7 10 3/mcL Normal 2.3-8.1 [facility] ([place]) Comment on above: Performed By: #### A DIFF, ANEU, GFR, BMP, CBC #### [place] [address] Neutrophil, Absolute 6.5 10 3/mcL Normal 2.3-8.1 [facility] ([place]) Comment on above: Performed By: #### A DIFF, ANEU, GFR, BMP, CBC #### [address] [address] BMPon 05-25-2023 BUN/Creatinine Ratio 11.6 ratio Normal 10.0-22.0 [facility] ([place]) Comment on above: Performed By: #### A DIFF, ANEU, GFR, BMP, CBC #### [place] [address] Calcium [Mass/Vol] 9.6 mg/dL Normal 8.7-10.4 [facility] ([place]) Comment on above: Performed By: #### A DIFF, ANEU, GFR, BMP, CBC #### [address] [address] Chloride [Moles/Vol] 105 mmol/L Normal 98-110 [facility] ([place]) Comment on above: Performed By: #### A DIFF, ANEU, GFR, BMP, CBC #### [place] [address] CO2 [Moles/Vol] 31 mmol/L Normal 22-32 [facility] ([place]) Comment on above: Performed By: #### A DIFF, ANEU, GFR, BMP, CBC #### [place] [address] Creatinine [Mass/Vol] 2.07 mg/dL High 0.60-1.40 [facility] ([place]) Comment on above: Performed By: #### A DIFF, ANEU, GFR, BMP, CBC #### [place] [address] Electrolyte Balance 6.0 mEq/L Normal 4.0-15.0 [facility] ([place]) Comment on above: Performed By: #### A DIFF, ANEU, GFR, BMP, CBC #### [place] [id number] Glucose [Mass/Vol] 100 mg/dL Normal 82-115 [facility] ([place]) Comment on above: Performed By: #### A DIFF, ANEU, GFR, BMP, CBC #### [place] [address] Potassium [Moles/Vol] 3.6 mmol/L Normal 3.5-5.0 [facility] ([place]) Comment on above: Performed By: #### A DIFF, ANEU, GFR, BMP, CBC #### [place] [address] Sodium [Moles/Vol] 142 mmol/L Normal 136-145 [facility] ([place]) Comment on above: Performed By: #### A DIFF, ANEU, GFR, BMP, CBC #### [place] [id number] Urea nitrogen [Mass/Vol] 24.0 mg/dL High 8.0-22.0 [facility] ([place]) Comment on above: Performed By: #### A DIFF, ANEU, GFR, BMP, CBC #### [address] [address] CBCon 05-25-2023 Erythrocyte distribution width (RBC) [Ratio] 14.8 % Normal 11.5-15.5 [facility] ([place] Comment on above: Performed By: #### A DIFF, ANEU, GFR, BMP, CBC #### [address] [address] Hematocrit (Bld) [Volume fraction] 33.2 % Low 40.0-52.0 [facility] ([place] Comment on above: Performed By: #### A DIFF, ANEU, GFR, BMP, CBC #### [place] [address] Hgb 11.0 G/dL Low 13.0-17.5 [facility] ([place] Comment on above: Performed By: #### A DIFF, ANEU, GFR, BMP, CBC #### [place] [address] MCH (RBC) [Entitic mass] 29.4 pg Normal 27.0-33.0 [facility] ([place]) Comment on above: Performed By: #### A DIFF, ANEU, GFR, BMP, CBC #### [place] [address] MCHC 33.2 G/dL Normal 32.0-36.0 [facility] ([place] Comment on above: Performed By: #### A DIFF, ANEU, GFR, BMP, CBC #### [place] [address] MCV (RBC) [Entitic vol] 88.7 fL Normal 81.0-100.0 [facility] ([place]) Comment on above: Performed By: #### A DIFF, ANEU, GFR, BMP, CBC #### [place] [address] Platelet 234 10 3/mcL Normal 150-450 [facility] ([place] Comment on above: Performed By: #### A DIFF, ANEU, GFR, BMP, CBC #### [place] [address] Platelet mean volume (Bld) [Entitic vol] 7.9 fL Normal 6.4-10.5 [facility] ([place]) Comment on above: Performed By: #### A DIFF, ANEU, GFR, BMP, CBC #### [place] [address] RBC 3.74 10 6/mcL Low 4.50-6.00 [facility] ([place]) Comment on above: Performed By: #### A DIFF, ANEU, GFR, BMP, CBC #### [place] [address] WBC 9.4 10 3/mcL Normal 4.5-10.8 [facility] ([place]) Comment on above: Performed By: #### A DIFF, ANEU, GFR, BMP, CBC #### [place] [address] Erythrocyte distribution width (RBC) [Ratio] 15.0 % Normal 11.5-15.5 [facility] ([place]) Comment on above: Performed By: #### A DIFF, ANEU, GFR, BMP, CBC #### [place] [address] Hematocrit (Bld) [Volume fraction] 34.9 % Low 40.0-52.0 [facility] ([place] Comment on above: Performed By: #### A DIFF, ANEU, GFR, BMP, CBC #### [place] [address] Hgb 11.4 G/dL Low 13.0-17.5 [facility] ([place] Comment on above: Performed By: #### A DIFF, ANEU, GFR, BMP, CBC #### [place] [address] MCH (RBC) [Entitic mass] 29.3 pg Normal 27.0-33.0 [facility] ([place]) Comment on above: Performed By: #### A DIFF, ANEU, GFR, BMP, CBC #### [place] [address] MCHC 32.8 G/dL Normal 32.0-36.0 [facility] ([place] Comment on above: Performed By: #### A DIFF, ANEU, GFR, BMP, CBC #### [place] [address] MCV (RBC) [Entitic vol] 89.3 fL Normal 81.0-100.0 [facility] ([place]) Comment on above: Performed By: #### A DIFF, ANEU, GFR, BMP, CBC #### [place] [address] Platelet 253 10 3/mcL Normal 150-450 [facility] ([place]) Comment on above: Performed By: #### A DIFF, ANEU, GFR, BMP, CBC #### [place] [address] Platelet mean volume (Bld) [Entitic vol] 7.5 fL Normal 6.4-10.5 [facility] ([place]) Comment on above: Performed By: #### A DIFF, ANEU, GFR, BMP, CBC #### [place] [address] RBC 3.90 10 6/mcL Low 4.50-6.00 [facility] ([place]) Comment on above: Performed By: #### A DIFF, ANEU, GFR, BMP, CBC #### [place] [address] WBC 9.7 10 3/mcL Normal 4.5-10.8 [facility] ([place]) Comment on above: Performed By: #### A DIFF, ANEU, GFR, BMP, CBC #### [place] [address] CMPon 05-25-2023 Albumin Level 3.5 G/dL Normal 3.2-4.8 [facility] ([place]) Comment on above: Performed By: #### A DIFF, ANEU, GFR, BMP, CBC #### [place] [address] Albumin/Globulin [Mass ratio] 1.1 {ratio} Normal 0.9-1.6 [facility] ([place]) Comment on above: Performed By: #### A DIFF, ANEU, GFR, BMP, CBC #### [place] [id number] ALP [Catalytic activity/Vol] 115 U/L Normal 38-126 [facility] ([place]) Comment on above: Performed By: #### A DIFF, ANEU, GFR, BMP, CBC #### [place] [address] ALT [Catalytic activity/Vol] 8 U/L Low 12-55 [facility] ([place]) Comment on above: Performed By: #### A DIFF, ANEU, GFR, BMP, CBC #### [place] [address] AST [Catalytic activity/Vol] 17 U/L Normal 8-34 [facility] ([place]) Comment on above: Performed By: #### A DIFF, ANEU, GFR, BMP, CBC #### [address] [address] Bili Total 0.30 mg/dL Normal 0.20-1.20 [facility] ([place]) Comment on above: Result Comment: Use of this assay is not recommended for patients undergoing treatment with eltrombopag due to the potential for falsely elevated results. Performed By: #### A DIFF, ANEU, GFR, BMP, CBC #### [address] [address] BUN/Creatinine Ratio 11.7 ratio Normal 10.0-22.0 [facility] ([place]) Comment on above: Performed By: #### A DIFF, ANEU, GFR, BMP, CBC #### [address] [address] Calcium [Mass/Vol] 9.4 mg/dL Normal 8.7-10.4 [facility] ([place]) Comment on above: Performed By: #### A DIFF, ANEU, GFR, BMP, CBC #### [address] [address] Chloride [Moles/Vol] 105 mmol/L Normal 98-110 [facility] ([place]) Comment on above: Performed By: #### A DIFF, ANEU, GFR, BMP, CBC #### [address] [address] CO2 [Moles/Vol] 29 mmol/L Normal 22-32 [facility] ([place]) Comment on above: Performed By: #### A DIFF, ANEU, GFR, BMP, CBC #### [address] [address] Creatinine [Mass/Vol] 2.13 mg/dL High 0.60-1.40 [facility] ([place]) Comment on above: Performed By: #### A DIFF, ANEU, GFR, BMP, CBC #### [address] [address] Electrolyte Balance 5.0 mEq/L Normal 4.0-15.0 [facility] ([place]) Comment on above: Performed By: #### A DIFF, ANEU, GFR, BMP, CBC #### [address] [address] Globulin 3.1 G/dL Normal 1.5-3.8 [facility] ([place]) Comment on above: Performed By: #### A DIFF, ANEU, GFR, BMP, CBC #### [address] [address] Glucose [Mass/Vol] 107 mg/dL Normal 82-115 [facility] ([place]) Comment on above: Performed By: #### A DIFF, ANEU, GFR, BMP, CBC #### [address] [address] Potassium [Moles/Vol] 4.1 mmol/L Normal 3.5-5.0 [facility] ([place]) Comment on above: Result Comment: Spec imen slightly hemolyzed. Performed By: #### A DIFF, ANEU, GFR, BMP, CBC #### [address] [address] Sodium [Moles/Vol] 139 mmol/L Normal 136-145 [facility] ([place]) Comment on above: Performed By: #### A DIFF, ANEU, GFR, BMP, CBC #### [address] [address] Total Protein 6.6 G/dL Normal 5.7-8.2 [facility] ([place]) Comment on above: Result Comment: No te - New Reference Range in effect 20 Performed By: #### A DIFF, ANEU, GFR, BMP, CBC #### [address] [address] Urea nitrogen [Mass/Vol] 25.0 mg/dL High 8.0-22.0 [facility] ([place]) Comment on above: Performed By: #### A DIFF, ANEU, GFR, BMP, CBC #### [address] [address] MGon 05-25-2023 Magnesium [Mass/Vol] 1.9 mg/dL Normal 1.6-2.4 [facility] ([place]) Comment on above: Performed By: #### A DIFF, ANEU, GFR, BMP, CBC #### [place] [address] Magnesium [Mass/Vol] 2.0 mg/dL Normal 1.6-2.4 [facility] ([place]) Comment on above: Performed By: #### A DIFF, ANEU, GFR, BMP, CBC #### [place] [address] PBNPon 05-25-2023 Natriuretic peptide B (Bld) [Mass/Vol] 160 pg/mL Normal 0-1800 [facility] ([place]) Comment on above: Result Comment: NT-p roBNP results of less than 300 pg/mL effectively rules out acute congestive heart failure with 99% negative predictive value. Performed By: #### A DIFF, ANEU, GFR, BMP, CBC #### [place] [address] TROPHSon 05-25-2023 Troponin I High Sensitivity 6.29 ng/L Normal 0.00-54.00 [facility] ([place]) Comment on above: Performed By: #### A DIFF, ANEU, GFR, BMP, CBC #### [place] [address] LABORATORYOrdered By: SYSTEM SYSTEM on 05-24-2023 Albumin [...] negative predictive value. No Panel Informationon 05-09 [facility] XR Knee - bilateral 4 Viewso n 03-28-2023 IMPRESSION: No acute bony finding. Knee joints are unremarkable. Dissolver Operator: PSCB Transcribe Date/Time: Mar 28 2023 8:16A Dictated by : COMFORT GLOVER MD This examination was interpreted and the report reviewed and electronically signed by: COMFORT GLOVER MD on Mar 28 2023 8:18AM [facility] * * *Final Report* [...] fracture. Vascular calcifications. DIVISION OF RADIOLOGY Provider, [facility] Elham Garza - 03/28/2023 * [...] acute bony finding. Knee joints are unremarkable. Dissolver Operator: JASON Transcribe Date/Time: Mar 28 2023 8:16A Dictated by : COMFORT GLOVER MD This examination was interpreted and the report reviewed and electronically signed by: COMFORT GLOVER MD on Mar 28 2023 8:18AM EST [facility] XR Lumbar spine 3 Viewson Interpretation and review of laboratory results Abnormal [facility] Radiology Result ACTIONABLE Abnormal [facility] Comment on above: This report contains [...] be communicated with the ordering provider via [employer] staff message or phone message by [facility] [employer] [facility] within 2 business days of report finalization. Algorithms for management of incidental imaging findings can be found on the [facility] Intranet Sharepoint site at: [email or web address] ng%20Incidental%20Findi ngs%20at%20Imaging/Forms/A llItems.aspx Dissolver Operator: JASON Transcribe Date/Time: Mar 28 2023 8:11A Dictated by : COMFORT GLOVER MD This examination was interpreted and the report reviewed and electronically signed by: COMFORT GLOVER MD on Mar 28 2023 8:16AM [facility] * * *Final Report* [...] Anatomic Variants: None. DIVISION OF RADIOLOGY Provider, [facility] - 03/28/2023 * * *Final [...] be communicated with the ordering provider via [employer] staff message or phone message by [facility] within 2 business days of report finalization. Algorithms for management of incidental imaging findings can be found on the [facility] Intranet Sharepoint site at: [email or web address]/Managi ng%20Incidental%20Findi ngs%20at%20Imaging/Forms/A llItems.aspx Dissolver Operator: [facility]ENTER[facility]ony Transcribe Date/Time: Mar 28 2023 8:11A Dictated by : COMFORT GLOVER MD This examination was interpreted and the report reviewed and electronically signed by: COMFORT GLOVER MD on Mar 28 2023 8:16AM EST [facility] XR Chest PA and Lateralon IMPRESSION: Stable exam. No acute radiographic abnormality. Dissolver Operator: JASON Transcribe Date/Time: Mar 24 2023 9:33A [...] the thoracic spine. DIVISION OF RADIOLOGY Provider, [facility] Elham [facility] - 03/24/2023 * * *Final Report* [...] IMPRESSION: Stable exam. No acute radiographic abnormality. Dissolver Operator: JASON Transcribe Date/Time: Mar 24 2023 9:33A Dictated by : CARLA BROWN DO This examination was interpreted and the report reviewed and electronically signed by: CARLA BROWN DO on Mar 24 2023 9:33AM EST [facility] XR Chest PA and LateralOrder ed By: Ccf Provider on 03-24-2023 [facility] No Panel Informationon 03-23 Radiology Study observation (narrative) [facility] XR Chest PA and Lateralon IMPRESSION: No acute radiographic abnormality. Dissolver Operator: PSCB Transcribe Date/Time: Nov 25 2021 12:25P [...] Unremarkable. [id number]_ USE_DIVISIO N OF RADIOLOGY Provider, [facility] - 11/25/2021 * * *Final Report* [...] Unremarkable. IMPRESSION IMPRESSION: No acute radiographic abnormality. Dissolver Operator: JASON Transcribe Date/Time: Nov 25 2021 12:25P Dictated by : COMFORT GLOVER MD This examination was interpreted and the report reviewed and electronically signed by: COMFORT GLOVER MD on Nov 25 2021 12:26PM EST [facility] Radiology Study observation (narrative) [facility] XR Chest PA and LateralOrder ed By: Cc Provider on 11-25-2021 [facility] XR Chest PA and Lateralon IMPRESSION: No acute radiographic abnormality. Dissolver Operator: [facility] Transcribe Date/Time: Sep 18 2020 3:15P [...] degenerative changes. DIVISION OF RADIOLOGY Provider, Tatiana iLzarraga [place] - 09/18/2020 * * *Final Report* * [...] changes. IMPRESSION IMPRESSION: No acute radiographic abnormality. Dissolver Operator: JASON Transcribe Date/Time: Sep 18 2020 3:15P Dictated by : ZOE AKBAR MD This examination was interpreted and the report reviewed and electronically signed by: ZOE AKBAR MD on Sep 18 2020 3:16PM EST [facility] Radiology Study observation (narrative) [facility] XR Chest PA and LateralOrder ed By: Ccf Provider on 09-18-2020 [facility] No Panel Informationon 06-09 IMPRESSION: Degenerative changes as discussed Dissolver Operator: PSCB Transcribe Date/Time: Jun 09 2020 4:42P Dictated by : LISA CARREON DO This examination was interpreted and the report reviewed and electronically signed by: LISA CARREON DO on Jun 09 2020 4:44PM [facility] Radiology Study observation (narrative) [facility] No Panel InformationOrdered By: Ccf Provider on 06-09-2020 [facility] XR Cervical spine AP and Lat eral [...] the glenohumeral joint. DIVISION OF RADIOLOGY Provider[facility] * * *Final Report* * [...] joint. IMPRESSION IMPRESSION: Degenerative changes as discussed Dissolver Operator: JASON Transcribe Date/Time: Jun 09 2020 4:42P Dictated by : LISA CARREON DO This examination was interpreted and the report reviewed and electronically signed by: LISA CARREON DO on Jun 09 2020 4:44PM EST [facility] XR Shoulder - left 3 Viewson 06-09-2020 [...] the glenohumeral joint. DIVISION OF RADIOLOGY Provider, [facility] - 06/09/2020 * * *Final [...] joint. IMPRESSION IMPRESSION: Degenerative changes as discussed Dissolver Operator: JASON Transcribe Date/Time: Jun 09 2020 4:42P Dictated by : LISA CARREON DO This examination was interpreted and the report reviewed and electronically signed by: LISA CARREON DO on Jun 09 2020 4:44PM [facility] Lab Report: Basic Metabolic Profile (BMP)on 06-27-2017 Anion gap 11 mmol/L Invalid Interpretation Code 5-15 [facility] Work Phone: [phone] BUN/Creatinine Ratio 20.3 RATIO High 10-[address] [facility] Work Phone: [phone] Calcium 9.5 mg/dL Invalid Interpretation Code 8.5-10.1 [facility] Work Phone: [phone] Chloride 92 mmol/L Low 98-107 [facility] Work Phone: [phone] CO2 29.0 mmol/L Invalid Interpretation Code 21.0-32.0 [facility] Work Phone: [phone] Creatinine 2.51 mg/dL High 0.70-1.30 [facility] Work Phone: [phone] eGFR (non-black) 32 mL/min/{1.73_m2} Low >60 [facility] Work Phone: [phone] eGFR (non-black) 27 mL/min/{1.73_m2} Low >60 [facility] Work Phone: [phone] Glucose mass conc 506 mg/dL Critically high 70-110 [facility] Work Phone: [phone] Potassium molar conc 3.9 mmol/L Invalid Interpretation Code 3.5-5.1 [facility] Work Phone: [phone] Sodium 132 mmol/L Low 136-145 [facility] Work Phone: [phone] Urea nitrogen 51 mg/dL High 7-18 [facility] Work Phone: [phone] Lab Report: CBC W/Diff, Auto matedon 06-27-2017 Absolute Neut 7.1 X10 3/UL Invalid Interpretation Code 2.0-7.7 [facility] Work Phone: Basophils/100 WBC Auto (Bld) 0.3 % Invalid Interpretation Code 0-1 [facility] Work Phone: Eosinophils/100 leukocytes 2.0 % Invalid Interpretation Code 0-5 [facility] Work Phone: [phone] Erythrocyte distribution width Auto Ratio (RBC) 16.6 % High 11.6-14.6 [facility] Work Phone: [phone] Erythrocytes (RBC) 4.42 10*6/uL Low 4.6-6.[address] [facility] Work Phone: [phone] Hematocrit (HCT) 36.9 % Low 40-54 [facility] Work Phone: [phone] Hemoglobin mass conc (Bld) 11.8 g/dL Low 13.0-16.5 [facility] Work Phone: [phone] Immature granulocytes/100 WBC (Bld) 0.200 % Invalid Interpretation Code 0.0-0.9 [facility] Work Phone: [phone] Lymphocytes 2.63 X10 3/UL Invalid Interpretation Code 0.83-4.51 [facility] Work Phone: [phone] Lymphocytes/100 leukocytes 24.1 % Invalid Interpretation Code 19-41 [facility] Work Phone: [phone] MCH 26.7 pg Low 27.0-32.0 [facility] Work Phone: [phone] MCHC mass conc (RBC) 32.0 G/GL Invalid Interpretation Code 32-36 [facility] Work Phone: [phone] MCV 83.5 fL Invalid Interpretation Code 80-94 [facility] Work Phone: Monocytes/100 leukocytes 8.2 % Invalid Interpretation Code 0-10 [facility] Work Phone: Neutrophils/100 WBC Auto (Bld) 65.2 % Invalid Interpretation Code 47-70 [facility] Work Phone: [phone] Platelets 434 10*3/mm3 Invalid Interpretation Code 150-450 [facility] Work Phone: [phone] PMV by Jeanna 10.4 fL Invalid Interpretation Code 6.2-12.0 [facility] Work Phone: [phone] RDW SD 49.6 fL High 35.1-43.9 [facility] Work Phone: [phone] WBC (Leukocytes) 10.9 10*3/uL Invalid Interpretation Code 4.4-11.0 [facility] Work Phone: [phone] Lab Report: Hemoglobin A1con 06-27-2017 Hemoglobin A1c/Hemoglobin.total mass fraction (Bld) 12.1 % High 4.2-6.3 [facility] Work Phone: [phone] Lab Report: Lipid Profileon 06-27-2017 Cholesterol 247 mg/dL High 200 [facility] Work Phone: [phone] HDL Cholesterol 50 mg/dL Invalid Interpretation Code [employer] [facility] Phone: [phone] LDL Cholesterol 145 mg/dL High 0-130 [facility] Work Phone: [phone] Triglyceride 262 mg/dL High [facility] Work Phone: [phone] very low density lipoproteins 52 mg/dL High 5-40 [facility] Work Phone: [phone] Lab Report: Liver Profileon 06-27-2017 Alanine aminotransferase (ALT) 16 U/L Invalid Interpretation Code 12-78 [facility] Work Phone: [phone] Albumin 3.5 g/dL Invalid Interpretation Code 3.4-5.0 [facility] Work Phone: [phone] Alkaline phosphatase (ALP) 141 U/L High 45-117 [facility] Work Phone: [phone] Aspartate aminotransferase (AST) 11 U/L Low 15-37 [facility] Work Phone: [phone] Bilirubin (direct) 0.09 mg/dL Invalid Interpretation Code 0.00-0.30 [facility] Work Phone: [phone] Bilirubin (total) 0.50 mg/dL Invalid Interpretation Code 0.20-1.00 [facility] Work Phone: [phone] Globulin 4.3 g/dL High 2.2-4.2 [facility] Work Phone: [phone] Protein 7.8 g/dL Invalid Interpretation Code 6.4-8.2 [facility] Phone: [phone] Office Visiton 06-27-2017 Documentation of current medications (procedure) Done Invalid Interpretation Code [facility] Phone: [phone] Fall risk assessment No Invalid Interpretation Code [employer] [facility] Phone: [phone] 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 Left ventricular Ejection fraction 45-50 Invalid Interpretation Code [employer] [facility] Phone: [phone] Office Visiton 04-21-2017 Documentation of current medications (procedure) Done Invalid Interpretation Code [employer] [facility] Phone: [phone] Fall risk assessment No Invalid Interpretation Code [employer] [facility] Phone: [phone] Office Visit: anemiaon 04-20 Dietary management education, guidance, and counseling (procedure) yes Invalid Interpretation Code [employer] [facility] Phone: [phone] Tobacco smoking status NHIS Never Invalid Interpretation Code [facility] Work Phone: [phone] Tobacco use HS Former smoker Invalid Interpretation Code [employer] [facility] Phone: [phone] Lab Report: Basic Metabolic Profile (BMP)on 03-31-2017 Anion gap 11 mmol/L Invalid Interpretation Code 5-15 [employer] [facility] Phone: [phone] BUN/Creatinine Ratio 18.1 RATIO Invalid Interpretation Code 10-20 [employer] [facility] Phone: [phone] Calcium 8.3 mg/dL Low 8.5-10.1 [facility] Work Phone: [phone] Chloride 101 mmol/L Invalid Interpretation Code 98-107 [employer] [facility] Phone: [phone] CO2 26.0 mmol/L Invalid Interpretation Code 21.0-32.0 [facility] Phone: [phone] Creatinine 27.94 mL/min Invalid Interpretation Code [employer] [facility] Phone: [phone] Creatinine 2.21 mg/dL High 0.70-1.30 [facility] Work Phone: [phone] eGFR (non-black) 31 mL/min/{1.73_m2} Low >60 [facility] Work Phone: [phone] eGFR (non-black) 37 mL/min/{1.73_m2} Low >60 [facility] Work Phone: [phone] Glucose mass conc 118 mg/dL High 70-110 [facility] Work Phone: [phone] Potassium molar conc 3.3 mmol/L Low 3.5-5.1 [facility] Work Phone: [phone] Sodium 138 mmol/L Invalid Interpretation Code 136-145 [facility] Work Phone: [phone] Urea nitrogen 40 mg/dL High 7-18 [facility] Work Phone: [phone] Lab Report: CBC W/Diff, Auto matedon 03-31-2017 Absolute Neut 10.9 X10 3/UL High 2.0-7.7 [facility] Work Phone: [phone] Erythrocyte distribution width Auto Ratio (RBC) 17.6 % High 11.6-14.6 [facility] Work Phone: [phone] Erythrocytes (RBC) 3.08 10*6/uL Low 4.6-6.2 [facility] Work Phone: [phone] Hematocrit (HCT) 25.2 % Low 40-54 [facility] Work Phone: [phone] Hemoglobin mass conc (Bld) 7.5 g/dL Low 13.0-16.5 [facility] Work Phone: [phone] Lymphocytes/100 leukocytes 7.0 % Low 19-41 [facility] Work Phone: [phone] MCH 24.4 pg Low 27.0-32.0 [facility] Work Phone: [phone] MCHC mass conc (RBC) 29.8 G/GL Low 32-36 [facility] Work Phone: [phone] Neutrophils/100 WBC Auto (Bld) 83.6 % High 47-70 [facility] Work Phone: [phone] RDW SD 49.3 fL High 35.1-43.9 [facility] Work Phone: [phone] WBC (Leukocytes) 13.1 10*3/uL High 4.4-11.0 [facility] Work Phone: Basophils/100 WBC Auto (Bld) 0.2 % Invalid Interpretation Code 0-1 [facility] Work Phone: [phone] Eosinophils/100 leukocytes 1.2 % Invalid Interpretation Code 0-5 [facility] Work Phone: [phone] Immature granulocytes/100 WBC (Bld) 0.300 % Invalid Interpretation Code 0.0-0.9 [facility] Work Phone: [phone] Lymphocytes 0.92 X10 3/UL Invalid Interpretation Code 0.83-4.51 [facility] Work Phone: [phone] 81.8 fL Invalid Interpretation Code 80-94 [facility] Work Phone: [phone] Monocytes/100 leukocytes 7.7 % Invalid Interpretation Code 0-10 [facility] Work Phone: [phone] Platelets 396 10*3/mm3 Invalid Interpretation Code 150-450 [facility] Work Phone: [phone] PMV by Jeanna 9.0 fL Invalid Interpretation Code 6.2-12.0 [facility] Work Phone: [phone] Lab Report: CPK Total, Creat ine Kinaseon 03-31-2017 Creatine kinase (CK) 35 U/L Low 39-[address] [facility] Work Phone: [phone] Lab Report: ACT Activated Cl otting Timeon 03-30-2017 ACTk CLOT TIME 197 sec High 74-137 [facility] Work Phone: [phone] Lab Report: Partial Thrombop last Timeon 03-23-2017 aPTT 35.5 s Invalid Interpretation Code 24.1-36.2 [facility] Work Phone: [phone] Replaced Document: (P) Proth rombin Time w/INRon 03-23-2017 INR Coag RelTime (PPP) 1.1 {INR} Invalid Interpretation Code [facility] Work Phone: [phone] Prothrombin time (PT) Coag time (PPP) 13.9 s Invalid Interpretation Code 11.7-14.9 [facility] Work Phone: [phone] Lab Report: BNP,B-Type NATRI URETIC PEPTIDEon 03-07-2017 BNP 43.4 pg/mL Invalid Interpretation Code 0-100 [facility] Work Phone: [phone] Replaced Document: Tate Perezon 02-25-2017 EKG QRS axis -1 deg Invalid Interpretation Code [facility] Work Phone: [phone] Interpretation Sinus Rhythm -Nonspe cific ST depression -Nondiagnostic. 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-2017 Alanine aminotransferase (ALT) 12 U/L Invalid Interpretation Code [facility] Work Phone: [phone] Albumin 3.8 g/dL Low [facility] Work Phone: [phone] Alkaline phosphatase (ALP) 99 U/L Invalid Interpretation Code [facility] Work Phone: [phone] Aspartate aminotransferase (AST) 15 U/L Invalid Interpretation Code [facility] Work Phone: [phone] Bilirubin (total) 0.2 mg/dL Invalid Interpretation Code [facility] Work Phone: [phone] Protein 7.5 g/dL Invalid Interpretation Code [facility] Work Phone: [phone] External Other: [employer]od of Contacton 01-18-2017 methcontact secmsg Invalid Interpretation Code [facility] Work Phone: [phone] Clinical Lists Update: 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 12-24-2016 Albumin/Globulin Ratio 0.7 {ratio} Low [facility] Work Phone: [phone] eGFR (non-black) 51 mL/min/{1.73_m2} Low [facility] Work Phone: [phone] eGFR (non-black) 46 mL/min/{1.73_m2} Low [facility] Work Phone: [phone] Globulin 3.9 g/dL High [facility] Work Phone: [phone] Magnesium 2.2 mg/dL Invalid Interpretation Code [facility] Work Phone: [phone] Clinical Lists Update: 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 12-21-2016 Cholesterol 172 mg/dL Invalid Interpretation Code [facility] Work Phone: [phone] HDL Cholesterol 31 mg/dL Low [facility] Work Phone: [phone] LDL Cholesterol 103 mg/dL Invalid Interpretation Code [facility] Work Phone: [phone] Triglyceride 192 mg/dL Invalid Interpretation Code [facility] Work Phone: [phone] very low density lipoproteins 38 mg/dL Invalid Interpretation Code [facility] Work Phone: [phone] Vital Signs Date Time Vital Sign Value Performing Clinician Roderick delgado 04-02-2025 14:59-0400 Body mass index (BMI) [Ratio] 24.02 kg/m2 Samson Ragsdale DO Work Phone: [facility] 04-02-2025 14:59-0400 Body temperature 96.8 [degF] Samson Ragsdale DO Work Phone: [facility] 04-02-2025 14:59-0400 Body weight 71.67 kg Samson Ragsdale DO Work Phone: [facility] 04-02-2025 14:59-0400 Diastolic blood pressure 60 mm[Hg] Samson Ragsdale DO Work Phone: [facility] 04-02-2025 14:59-0400 Heart rate 64 /min Samson Ragsdale DO Work Phone: [facility] 04-02-2025 14:59-0400 Respiratory rate 20 /min Samson Ragsdale DO Work Phone: [facility] 04-02-2025 14:59-0400 Systolic blood pressure 130 mm[Hg] Samson Ragsdale DO Work Phone: [facility] 03-18-2025 13:38-0400 Body height 172.7 cm Manuela Lacy MD Work Phone: [facility] 03-18-2025 13:38-0400 Body mass index (BMI) [Ratio] 23.4 kg/m2 Manuela Lacy MD Work Phone: [facility] 03-18-2025 13:38-0400 Body weight 69.8 kg Manuela Lacy MD Work Phone: [facility] 03-18-2025 13:38-0400 Diastolic blood pressure 65 mm[Hg] Manuela Lacy MD Work Phone: [facility] 03-18-2025 13:38-0400 Heart rate 68 /min Manuela Lacy MD Work Phone: [facility] 03-18-2025 13:38-0400 SaO2% (BldA) [Mass fraction] 95 % Manuela Lacy MD Work Phone: [facility] 03-18-2025 13:38-0400 Systolic blood pressure 126 mm[Hg] Manuela Lacy MD Work Phone: [facility] 02-21-2025 11:15-0400 Body height 172.[address] Samson Ragsdale DO Work Phone: [facility] 02-21-2025 11:15-0400 Body mass index (BMI) [Ratio] 23.4 kg/m2 Dr. Samson Ragsdale DO Work Phone: [facility] 02-21-2025 11:15-0400 Body weight 69.[address] Samson Ragsdale DO Work Phone: [facility] 02-21-2025 11:15-0400 Diastolic blood pressure 68 mm[Hg] Dr. Samson Ragsdale DO Work Phone: [facility] 02-21-2025 11:15-0400 Heart rate 65 /min Dr. Samson Ragsdale DO Work Phone: [facility] 02-21-2025 11:15-0400 Respiratory rate 16 /min Dr. Samson Ragsdale DO Work Phone: [facility] 02-21-2025 11:15-0400 SaO2% (BldA) [Mass fraction] 92 % Dr. Samson Ragsdale DO Work Phone: [facility] 02-21-2025 11:15-0400 Systolic blood pressure 107 mm[Hg] Dr. Samson Ragsdale DO Work Phone: [facility] 02-20-2025 15:06-0400 Body mass index (BMI) [Ratio] 23.39 kg/m2 Jud Paboner PA-C Work Phone: [facility] 02-20-2025 15:06-0400 Body weight 69.76 kg Jud Paboner PA-C Work Phone: [facility] 02-20-2025 15:06-0400 Diastolic blood pressure 67 mm[Hg] Jud Paboner PA-C Work Phone: [facility] 02-20-2025 15:06-0400 Heart rate 70 /min Jud Paboner PA-C Work Phone: [facility] 02-20-2025 15:06-0400 Respiratory rate 16 /min Jud Queener PA-C Work Phone: [facility] 02-20-2025 15:06-0400 SaO2% (BldA) [Mass fraction] 96 % Jud Paboner PA-C Work Phone: [facility] 02-20-2025 15:06-0400 Systolic blood pressure 121 mm[Hg] Jud Paboner PA-C Work Phone: [facility] 01-30-2025 12:42-0400 Body mass index (BMI) [Ratio] 24.47 kg/m2 Lala Godinez APRN.WATER ATTENDANT Work Phone: [facility] 01-30-2025 12:42-0400 Body weight 73 kg Lala Godinez APRN.WATER ATTENDANT Work Phone: [facility] 01-30-2025 12:42-0400 Diastolic blood pressure 67 mm[Hg] Lala Godinez APRN.WATER ATTENDANT Work Phone: [facility] 01-30-2025 12:42-0400 Heart rate 65 /min Laal Godinez APRN.WATER ATTENDANT Work Phone: [facility] 01-30-2025 12:42-0400 SaO2% (BldA) [Mass fraction] 97 % Lala Godinez APRN.WATER ATTENDANT Work Phone: [facility] 01-30-2025 12:42-0400 Systolic blood pressure 144 mm[Hg] Lala Godinez APRN.WATER ATTENDANT Work Phone: [facility] 01-17-2025 11:18-0400 Body mass index (BMI) [Ratio] 24.14 kg/m2 Lala Godinez APRN.WATER ATTENDANT Work Phone: [facility] 01-17-2025 11:18-0400 Body weight 72 kg Lala Godinez APRN.WATER ATTENDANT Work Phone: [facility] 01-17-2025 11:18-0400 Diastolic blood pressure 58 mm[Hg] Lala Godinez APRN.WATER ATTENDANT Work Phone: [facility] 01-17-2025 11:18-0400 Heart rate 62 /min Lala Godinez APRN.WATER ATTENDANT Work Phone: [facility] 01-17-2025 11:18-0400 SaO2% (BldA) [Mass fraction] 94 % Lala Godinez APRN.WATER ATTENDANT Work Phone: [facility] 01-17-2025 11:18-0400 Systolic blood pressure 116 mm[Hg] Lala Godinez APRN.WATER ATTENDANT Work Phone: 7(130)929-927[address] [place] [address] 01-15-2025 13:37-0400 Body height 172.[address] Samson Ragsdale DO Work Phone: 2(898)594-157160 [place] [address] 01-15-2025 13:37-0400 Body mass index (BMI) [Ratio] 24.7 kg/m2 Dr. Samson Ragsadle DO Work Phone: 5(169)122-872460 [place] [address] 01-15-2025 13:37-0400 Body weight 73.[address] Samson Ragsdale DO Work Phone: 2(085)400-840660 [place] [address] 01-15-2025 13:37-0400 Diastolic blood pressure 67 mm[Hg] Dr. Samson Ragsdale DO Work Phone: 9(353)687-712960 [place] [address] 01-15-2025 13:37-0400 Heart rate 61 /min Dr. Samson Ragsdale DO Work Phone: 6(732)549-939460 [place] [address] 01-15-2025 13:37-0400 Respiratory rate 22 /min Dr. Samson Ragsdale DO Work Phone: 9(468)453-589160 [place] [address] 01-15-2025 13:37-0400 Systolic blood pressure 118 mm[Hg] Dr. Samson Ragsdale DO Work Phone: 1(958)534-779360 [place] [address] 01-14-2025 02:19-0400 Body temperature 98.1 [degF] Dr. Samson Ragsdale DO Work Phone: 7(395)935-597560 [place] [address] 01-14-2025 02:19-0400 Diastolic blood pressure 53 mm[Hg] Dr. Samson Ragsdale DO Work Phone: 7(602)980-566360 [place] [address] 01-14-2025 02:19-0400 Heart rate 60 /min Dr. Samson Ragsdale DO Work Phone: 9(104)099-130960 [place] [address] 01-14-2025 02:19-0400 Respiratory rate 20 /min Dr. Samson Ragsdale DO Work Phone: 5(889)599-624560 [place] [address] 01-14-2025 02:19-0400 SaO2% (BldA) [Mass fraction] 93 % Dr. Samson Ragsdale DO Work Phone: 9(963)048-219460 [place] [address] 01-14-2025 02:19-0400 Systolic blood pressure 111 mm[Hg] Dr. Samson Ragsdale DO Work Phone: [facility] 01-13-2025 22:13-0400 Body height 172.[address] Samson Ragsdale DO Work Phone: 1(909)182-851439 [place] [address] 01-13-2025 22:13-0400 Body mass index (BMI) [Ratio] 25.1 kg/m2 Dr. Samson Ragsdale DO Work Phone: 7(774)001-968739 [place] [address] 01-13-2025 22:13-0400 Body weight 75.[address] Samson Ragsdale DO Work Phone: 7(534)739-555539 [place] [address] 01-09-2025 14:13-0400 Body mass index (BMI) [Ratio] 25.07 kg/m2 Khloe Swank BUSINESS SERVICES CLERK.WATER ATTENDANT Work Phone: [facility] 01-09-2025 14:13-0400 Body temperature 97.2 [degF] Khloe Swank BUSINESS SERVICES CLERK.WATER ATTENDANT Work Phone: [facility] 01-09-2025 14:13-0400 Body weight 74.8 kg Khloe Swank BUSINESS SERVICES CLERK.WATER ATTENDANT Work Phone: [facility] 01-09-2025 14:13-0400 Diastolic blood pressure 72 mm[Hg] Khloe Swank BUSINESS SERVICES CLERK.WATER ATTENDANT Work Phone: [facility] 01-09-2025 14:13-0400 Heart rate 64 /min Khloe Swank BUSINESS SERVICES CLERK.WATER ATTENDANT Work Phone: [facility] 01-09-2025 14:13-0400 Respiratory rate 18 /min Khloe Swank BUSINESS SERVICES CLERK.WATER ATTENDANT Work Phone: [facility] 01-09-2025 14:13-0400 SaO2% (BldA) [Mass fraction] 95 % Khloe Swank BUSINESS SERVICES CLERK.WATER ATTENDANT Work Phone: [facility] 01-09-2025 14:13-0400 Systolic blood pressure 132 mm[Hg] Khloe Swank BUSINESS SERVICES CLERK.WATER ATTENDANT Work Phone: [facility] 11-26-2024 15:12-0400 Body mass index (BMI) [Ratio] 25.71 kg/m2 Theodora Scotty BUSINESS SERVICES CLERK.WATER ATTENDANT Work Phone: [facility] 11-26-2024 15:12-0400 Body weight 76.7 kg Theodora Scotty BUSINESS SERVICES CLERK.WATER ATTENDANT Work Phone: [facility] 11-26-2024 15:12-0400 Diastolic blood pressure 60 mm[Hg] Theodora Scotty BUSINESS SERVICES CLERK.WATER ATTENDANT Work Phone: [facility] 11-26-2024 15:12-0400 Heart rate 62 /min Theodora Scotty BUSINESS SERVICES CLERK.WATER ATTENDANT Work Phone: [facility] 11-26-2024 15:12-0400 SaO2% (BldA) [Mass fraction] 97 % Theodora Scotty BUSINESS SERVICES CLERK.WATER ATTENDANT Work Phone: [facility] 11-26-2024 15:12-0400 Systolic blood pressure 120 mm[Hg] Theodora Scotty BUSINESS SERVICES CLERK.WATER ATTENDANT Work Phone: [facility] 09-26-2024 14:07-0500 Body mass index (BMI) [Ratio] 25.09 kg/m2 Samson Ragsdale DO Work Phone: [facility] 09-26-2024 14:07-0500 Body temperature 97 [degF] Samson Ragsdale DO Work Phone: [facility] 09-26-2024 14:07-0500 Body weight 74.84 kg Samson Ragsdale DO Work Phone: [facility] 09-26-2024 14:07-0500 Diastolic blood pressure 70 mm[Hg] Samson Ragsdale DO Work Phone: [facility] 09-26-2024 14:07-0500 Heart rate 64 /min Samson Ragsdale DO Work Phone: [facility] 09-26-2024 14:07-0500 Respiratory rate 20 /min Samson Ragsdale DO Work Phone: [facility] 09-26-2024 14:07-0500 Systolic blood pressure 138 mm[Hg] Samson Ragsdale DO Work Phone: [facility] 05-23-2024 14:45-0400 Diastolic blood pressure 66 mm[Hg] Malu Mendoza MD Work Phone: [facility] 05-23-2024 14:45-0400 Heart rate 61 /min Malu Mendoza MD Work Phone: [facility] 05-23-2024 14:45-0400 SaO2% (BldA) [Mass fraction] 98 % Malu Mendoza MD Work Phone: [facility] 05-23-2024 14:45-0400 Systolic blood pressure 147 mm[Hg] Malu Mendoza MD Work Phone: [facility] 05-23-2024 14:30-0400 Respiratory rate 18 /min Malu Mendoza MD Work Phone: [facility] 05-23-2024 14:11-0400 Body temperature 97.7 [degF] Malu Mendoza MD Work Phone: [facility] 05-23-2024 12:11-0400 Body height 172.7 cm Malu Mendoza MD Work Phone: [facility] 05-23-2024 12:11-0400 Body mass index (BMI) [Ratio] 24.78 kg/m2 Malu Mendoza MD Work Phone: [facility] 05-23-2024 12:11-0400 Body weight 73.94 kg Malu Mendoza MD Work Phone: [facility] 05-09-2024 13:31-0400 Body height 172.7 cm [facility] 1 Work Phone: [facility] 05-09-2024 13:31-0400 Body mass index (BMI) [Ratio] 24.78 kg/m2 Pac 1 Work Phone: [facility] 05-09-2024 13:31-0400 Body temperature 97.7 [degF] Pacc 1 Work Phone: [facility] 05-09-2024 13:31-0400 Body weight 73.94 kg Pacc 1 Work Phone: [facility] 05-09-2024 13:31-0400 Diastolic blood pressure 68 mm[Hg] Pacc 1 Work Phone: [facility] 05-09-2024 13:31-0400 Heart rate 62 /min Pacc 1 Work Phone: [facility] 05-09-2024 13:31-0400 Respiratory rate 18 /min Pacc 1 Work Phone: [facility] 05-09-2024 13:31-0400 SaO2% (BldA) [Mass fraction] 96 % Pacc 1 Work Phone: [facility] 05-09-2024 13:31-0400 Systolic blood pressure 128 mm[Hg] Pacc 1 Work Phone: [facility] 04-13-2024 14:19-0400 Body height 172.7 cm Cristela Troy BUSINESS SERVICES CLERK.WATER ATTENDANT Work Phone: [facility] 04-13-2024 14:19-0400 Body mass index (BMI) [Ratio] 24.54 kg/m2 Cristela Troy BUSINESS SERVICES CLERK.WATER ATTENDANT Work Phone: [facility] 04-13-2024 14:19-0400 Body weight 73.21 kg Cristela Troy BUSINESS SERVICES CLERK.WATER ATTENDANT Work Phone: [facility] 04-13-2024 14:19-0400 Diastolic blood pressure 57 mm[Hg] Cristela Troy BUSINESS SERVICES CLERK.WATER ATTENDANT Work Phone: [facility] 04-13-2024 14:19-0400 Heart rate 64 /min Cristela Troy BUSINESS SERVICES CLERK.WATER ATTENDANT Work Phone: [facility] 04-13-2024 14:19-0400 SaO2% (BldA) [Mass fraction] 96 % Cristela Troy BUSINESS SERVICES CLERK.WATER ATTENDANT Work Phone: [facility] 04-13-2024 14:19-0400 Systolic blood pressure 116 mm[Hg] Cristela Andersen BUSINESS SERVICES CLERK.WATER ATTENDANT Work Phone: [facility] 03-26-2024 14:47-0400 Body mass index (BMI) [Ratio] 24.78 kg/m2 Samson Ragsdale DO Work Phone: [facility] 03-26-2024 14:47-0400 Body temperature 97.39 [degF] Samson Ragsdale DO Work Phone: [facility] 03-26-2024 14:47-0400 Body weight 73.94 kg Samson Ragsdale DO Work Phone: [facility] 03-26-2024 14:47-0400 Diastolic blood pressure 60 mm[Hg] Samson Ragsdale DO Work Phone: [facility] 03-26-2024 14:47-0400 Heart rate 64 /min Samson Ragsdale DO Work Phone: [facility] 03-26-2024 14:47-0400 Respiratory rate 20 /min Samson Ragsdale DO Work Phone: [facility] 03-26-2024 14:47-0400 Systolic blood pressure 120 mm[Hg] Samson Ragsdale DO Work Phone: [facility] 10-04-2023 10:21-0500 Diastolic blood pressure 68 mm[Hg] Brittany West DO Work Phone: [facility] 10-04-2023 10:21-0500 Heart rate 64 /min Brittany West DO Work Phone: [facility] 10-04-2023 10:21-0500 SaO2% (BldA) [Mass fraction] 97 % Brittany West DO Work Phone: [facility] 10-04-2023 10:21-0500 Systolic blood pressure 137 mm[Hg] Brittany West DO Work Phone: [facility] 09-26-2023 12:20-0500 Body temperature 97.2 [degF] Samson Ragsdale DO Work Phone: [facility] 09-26-2023 12:20-0500 Body weight 79.83 kg Samson Ragsdale DO Work Phone: [facility] 09-26-2023 12:20-0500 Diastolic blood pressure 64 mm[Hg] Samson Ragsdale DO Work Phone: [facility] 09-26-2023 12:20-0500 Heart rate 64 /min Samson Ragsdale DO Work Phone: [facility] 09-26-2023 12:20-0500 Respiratory rate 20 /min Samson Ragsdale DO Work Phone: [facility] 09-26-2023 12:20-0500 Systolic blood pressure 138 mm[Hg] Samson Ragsdale DO Work Phone: [facility] 05-31-2023 10:23-0400 Diastolic blood pressure 58 mm[Hg] Brittany West DO Work Phone: [facility] 05-31-2023 10:23-0400 Heart rate 64 /min Brittany West DO Work Phone: [facility] 05-31-2023 10:23-0400 SaO2% (BldA) [Mass fraction] 95 % Brittany West DO Work Phone: [facility] 05-31-2023 10:23-0400 Systolic blood pressure 122 mm[Hg] Brittany West DO Work Phone: [facility] 05-28-2023 15:25-0400 Heart rate 74 /min JESUS MIJARES MD [facility] 05-28-2023 12:38-0400 Heart rate 64 /min JESUS MIJARES MD [facility] 05-28-2023 10:25-0400 Blood Pressure Cuff Size JESUS MIJARES MD [address] [place] [address] 05-28-2023 10:25-0400 Blood Pressure Location JESUS MIJARES MD [address] [place] [address] 05-28-2023 10:25-0400 Blood Pressure Method JESUS MIJARES MD [address] [place] [address] 05-28-2023 10:25-0400 Body temperature 98.24 [degF] JESUS MIJARES MD [address] [place] [address] 05-28-2023 10:25-0400 Diastolic Blood Pressure Non-Invasive 58 1 JESUS MIJARES MD [address] [place] [address] 05-28-2023 10:25-0400 Reason For Taking VItal Signs JESUS MIJARES MD [address] [place] [address] 05-28-2023 10:25-0400 Respiratory rate 18 /min JESUS MIJARES MD [address] [place] [address] 05-28-2023 10:25-0400 Systolic Blood Pressure Non-Invasive 110 1 JESUS MIJARES MD [address] [place] [address] 05-28-2023 09:55-0400 diastolic 64 mm[Hg] JESUS MIJARES MD [address] [place] [address] 05-28-2023 09:55-0400 diastolic 70 mm[Hg] JESUS MIJARES MD [address] [place] [address] 05-28-2023 09:55-0400 Heart rate 73 /min JESUS MIJARES MD [address] [place] [address] 05-28-2023 09:55-0400 Heart rate 85 /min JESUS MIJARES MD [address] [place] [address] 05-28-2023 09:55-0400 Respiratory rate 18 /min JESUS MIJARES MD [address] [place] [address] 05-28-2023 09:55-0400 Respiratory rate 20 /min JESUS MIJARES MD [address] [place] [address] 05-28-2023 09:55-0400 systolic 140 mm[Hg] JESUS MIJARES MD [address] [place] [address] 05-28-2023 09:55-0400 systolic 142 mm[Hg] JESUS MIJARES MD [address] [place] [address] 05-28-2023 05:02-0400 Heart rate 73 /min JESUS MIJARES MD [address] [place] [address] 05-28-2023 05:02-0400 Mean blood pressure 78 mm[Hg] JESUS MIJARES MD [address] [place] [address] 05-27-2023 23:22-0400 Mean blood pressure 79 mm[Hg] JESUS MIJARES MD [address] [place] [address] 05-27-2023 22:50-0400 Body temperature 98.24 [degF] JESUS MIJARES MD [address] [place] [address] 05-27-2023 22:50-0400 Reason For Taking VItal Signs JESUS MIJARES MD [address] [place] [address] 05-27-2023 21:30-0400 Body temperature 98.24 [degF] JESUS MIJARES MD [address] [place] [address] 05-27-2023 21:30-0400 Mean blood pressure 91 mm[Hg] JESUS MIJARES MD [address] [place] [address] 05-27-2023 21:30-0400 Reason For Taking VItal Signs JESUS MIJARES MD [address] [place] [address] 05-27-2023 08:13-0400 Blood Pressure Cuff Size JESUS MIJARES MD [address] [place] [address] 05-27-2023 08:13-0400 Blood Pressure Location JESUS MIJARES MD [address] [place] [address] 05-27-2023 08:13-0400 Blood Pressure Method JESUS MIJARES MD [address] [place] [address] 05-27-2023 03:37-0400 Blood Pressure Cuff Size JESUS MIJARES MD [address] [place] [address] 05-27-2023 03:37-0400 Blood Pressure Location JESUS MIJARES MD [facility] 05-27-2023 03:37-0400 Blood Pressure Method JESUS MIJARES MD [facility] 05-24-2023 21:25-0400 Body height 172.7 cm JESUS MIJARES MD [address] 05-24-2023 21:25-0400 Body weight 77.7 kg JESUS MIJARES MD [address] 05-24-2023 21:25-0400 Body weight 26.05 kg/m2 JESUS MIJARES MD [address] 05-24-2023 21:15-0400 Heart rate 64 /min JESUS MIJARES MD [address] 03-23-2023 13:50-0400 Body weight 78.93 kg Samson Ragsdale DO Work Phone: [facility] 03-23-2023 13:50-0400 Diastolic blood pressure 70 mm[Hg] Samson Ragsdale DO Work Phone: [facility] 03-23-2023 13:50-0400 Heart rate 58 /min Samson Ragsdale DO Work Phone: [facility] 03-23-2023 13:50-0400 Respiratory rate 14 /min Samson Ragsdale DO Work Phone: [facility] 03-23-2023 13:50-0400 SaO2% (BldA) [Mass fraction] 98 % Samson Ragsdale DO Work Phone: [facility] 03-23-2023 13:50-0400 Systolic blood pressure 112 mm[Hg] Samson Ragsdale DO Work Phone: [facility] 11-30-2022 12:33-0400 Body temperature 97.3 [degF] Tonny Nieves APRN.CNP Work Phone: [facility] 11-30-2022 12:33-0400 Body weight 78.47 kg Tonny Nieves BUSINESS SERVICES CLERK.WATER ATTENDANT Work Phone: [facility] 11-30-2022 12:33-0400 Diastolic blood pressure 62 mm[Hg] Tonny Nieves BUSINESS SERVICES CLERK.WATER ATTENDANT Work Phone: [facility] 11-30-2022 12:33-0400 Heart rate 64 /min Tonny Nieves BUSINESS SERVICES CLERK.WATER ATTENDANT Work Phone: [facility] 11-30-2022 12:33-0400 Respiratory rate 18 /min Tonny Nieves BUSINESS SERVICES CLERK.WATER ATTENDANT Work Phone: [facility] 11-30-2022 12:33-0400 SaO2% (BldA) [Mass fraction] 97 % Tonny Nieves BUSINESS SERVICES CLERK.WATER ATTENDANT Work Phone: [facility] 11-30-2022 12:33-0400 Systolic blood pressure 126 mm[Hg] Tonny Nieves BUSINESS SERVICES CLERK.WATER ATTENDANT Work Phone: [facility] 09-22-2022 14:03-0500 Body temperature 97 [degF] Samson Ragsdale DO Work Phone: [facility] 09-22-2022 14:03-0500 Body weight 79.38 kg Samson Ragsdale DO Work Phone: [facility] 09-22-2022 14:03-0500 Diastolic blood pressure 60 mm[Hg] Samson Ragsdale DO Work Phone: [facility] 09-22-2022 14:03-0500 Heart rate 64 /min Samson Ragsdale DO Work Phone: [facility] 09-22-2022 14:03-0500 Respiratory rate 20 /min Samson Ragsdale DO Work Phone: [facility] 09-22-2022 14:03-0500 Systolic blood pressure 110 mm[Hg] Samson Ragsdale DO Work Phone: [facility] 07-28-2022 10:01-0500 Body temperature 97.5 [degF] Jocelin Lange PA-C Work Phone: [facility] 07-28-2022 10:01-0500 Body weight 79.38 kg Jocelin Athy PA-C Work Phone: [facility] 07-28-2022 10:01-0500 Diastolic blood pressure 72 mm[Hg] Jocelin Athy PA-C Work Phone: [facility] 07-28-2022 10:01-0500 Heart rate 60 /min Jocelin Athy PA-C Work Phone: [facility] 07-28-2022 10:01-0500 Respiratory rate 18 /min Jocelin Athy PA-C Work Phone: [facility] 07-28-2022 10:01-0500 SaO2% (BldA) [Mass fraction] 97 % Jocelin Athy PA-C Work Phone: [facility] 07-28-2022 10:01-0500 Systolic blood pressure 136 mm[Hg] Jocelin Athy PA-C Work Phone: [facility] 03-23-2022 14:32-0400 Body temperature 97.5 [degF] Samson Ragsdale DO Work Phone: [facility] 03-23-2022 14:32-0400 Body weight 76.2 kg Samson Ragsdale DO Work Phone: [facility] 03-23-2022 14:32-0400 Diastolic blood pressure 70 mm[Hg] Samson Ragsdale DO Work Phone: [facility] 03-23-2022 14:32-0400 Heart rate 64 /min Samson Ragsdael DO Work Phone: [facility] 03-23-2022 14:32-0400 Respiratory rate 16 /min Samson Ragsdale DO Work Phone: [facility] 03-23-2022 14:32-0400 Systolic blood pressure 110 mm[Hg] Samson Ragsdale DO Work Phone: [facility] 06-27-2017 09:32-0500 BMI (Body Mass Index) 27.06 [...] 15:16-0400 BMI (Body Mass Index) 28.58 kg/m2 uY Joshi RN [facility] Work Phone: 04-21-2017 15:16-0400 BP Diastolic 70 mm[Hg] Yu Joshi RN [facility] Work Phone: 04-21-2017 15:16-0400 BP Systolic 150 mm[Hg] Yu Joshi RN [facility] Work Phone: 04-21-2017 15:16-0400 Height 172.72 cm Yu Joshi RN [facility] Work Phone: 04-21-2017 15:16-0400 Pulse (Heart Rate) 88 /min Yu Joshi RN [facility] Work Phone: 04-21-2017 15:16-0400 Respiratory Rate 18 /min Yu Joshi RN [facility] Work Phone: 04-21-2017 15:16-0400 Weight 85.28 kg Yu Joshi RN [facility] Work Phone: 04-20-2017 10:41-0400 Body Temperature 98.2 [degF] Yu Joshi RN [facility] Work Phone: Encounters Encounter Date Encounter Type Care Provider Facility Start: 05-09-2025 End: 05-09-2025 ambulatory SELF Facility:[facility] Start: 04-15-2025 End: 04-16-2025 ambulatory SAMSON RAGSDALE Facility:[facility] Start: 04-05-2025 ambulatory SAMSON RAGSDALE Facil ity:[facility] Start: 04-05-2025 End: 04-05-2025 Subsequent hospital visit by physician [facility] (I-Stat) Work Phone: Cat Scan Comment on above: Myasthenia gravis (H CC) [G70.00] Start: 04-02-2025 End: 04-02-2025 Patient encounter procedure Samson Ragsdale DO Work Phone: [facility] Comment on above: 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, with long-term current use of insulin ([facility]) (Primary Dx); Cerebral microvascular disease; Bilateral carotid artery stenosis; Hypertensive kidney disease with chronic kidney disease stage IV ([facility]); Essential hypertension, benign; CKD (chronic kidney disease) stage 4, GFR 15-29 ml/min ([facility]); Hypertensive heart disease without heart failure; Other polyneuropathy; Arthritis, multiple joint involvement; Pure hypercholesterolemia; Vitamin D deficiency; Myasthenia gravis ([facility]) Start: 04-02-2025 End: 04-02-2025 ambulatory SAMSON RAGSDALE Facility:[facility] Start: 03-26-2025 End: 03-26-[address] Samson Ragsdale DO Work Phone: -Laboratory Start: 03-26-2025 End: 03-26-[address] Marcial Monae DO -Laboratory Work Phone: Start: 03-25-2025 End: 03-26-2025 ambulatory Marcial Monae Facility:[facility] Start: 03-18-2025 End: 03-18-2025 Patient encounter procedure Manuela Lacy MD Work Phone: Neurology Comment on above: Myasthenia gravis (H CC) Start: 03-18-2025 End: 03-18-2025 ambulatory SAMSON RAGSDALE Facility:[facility] Start: 03-05-2025 End: 03-05-[address] Samson Ragsdale DO Work Phone: -Radiology [facility] Start: 03-05-2025 End: 03-05-[address] Nolan Hoyt MD -Radiology [facility] Work Phone: Start: 03-05-2025 End: 03-05-2025 ambulatory Samson Ragsdale Facility:[facility] Start: 03-01-2025 ambulatory Marcial Monae [facility] lity:[facility] Start: 02-28-2025 End: 03-04-2025 Telephone encounter Samson Ragsdale DO Work Phone: [facility] Comment on above: Medication Problem Start: 02-27-2025 End: 02-28-2025 Follow-up encounter Jud Maguire PA-C Work Phone: Neurology Comment on above: Results Start: 02-21-2025 End: 02-21-2025 Patient encounter procedure Bijal GOODMAN -[facility] Work Phone: Start: 02-21-2025 End: 02-21-[address] Samson Ragsdale DO Work Phone: -[facility] Start: 02-20-2025 End: 02-20-2025 ambulatory SAMSON RAGSDALE Facility:[facility] Start: 02-20-2025 End: 02-20-2025 Patient encounter procedure Jud Maguire PA-C Work Phone: Neurology Comment on above: Weakness (Primary Dx ); Cerebral microvascular disease; Myasthenia gravis (HCC); Abnormal weight loss; Double vision; Dysphagia, unspecified type Start: 02-20-2025 End: 02-20-2025 ambulatory SAMOSN RAGSDALE Facility:[facility] Start: 02-20-2025 End: 02-25-2025 Telephone encounter Samson Ragsdale DO Work Phone: [facility] [place] Comment on above: Orders Start: 01-31-2025 End: 02-05-2025 Follow-up encounter Lala Godinez APRN.CNP Work Phone: [facility] [place] Comment on above: Results Start: 01-31-2025 ambulatory SAMSON RAGSDALE Facil ity:[facility] Start: 01-31-2025 End: 01-31-2025 Subsequent hospital visit by physician [facility] [employer] [facility] (I-Stat/1.5t) Work Phone: Radiology Comment on above: Other symptoms and s igns involving the nervous system [R29.818] Start: 01-30-2025 End: 01-30-2025 Patient encounter procedure Lala Godinez APRN.CNP Work Phone: [facility] Comment on above: Other symptoms and s igns involving the nervous system (Primary Dx); Bilateral carotid artery stenosis Start: 01-30-2025 End: 01-30-2025 ambulatory SAMSON RAGSDALE Facility:[facility] Start: 01-29-2025 End: 01-29-2025 Telephone encounter aSmson Ragsdale DO Work Phone: [facility] Comment on above: Orders; Recheck (for difficulty swallowing and distorted vision) Start: 01-29-2025 End: 01-29-[address] Samson Ragsdale DO Work Phone: -Pulmonary Services/Neurology Start: 01-29-2025 End: 01-29-[address] Srini Montano MD -Pulmonary Services/Neurology Work Phone: Start: 01-29-2025 End: 01-29-2025 ambulatory Srini Montano Facility:[facility] Start: 01-22-2025 Non-patient / Non-visit Dr. Bk owen MD -[facility] Start: 01-22-2025 End: 01-22-[address] Samson Ragsdale DO Work Phone: -Cardiovascular Services Start: 01-22-2025 End: 01-22-[address] Srini Montano MD -Cardiovascular Services Work Phone: Start: 01-21-2025 End: 01-22-2025 ambulatory Samson Ragsdale Facility:[facility] Start: 01-21-2025 Non-patient / Non-visit Dr. Srini salazar MD -[facility] Start: 01-18-2025 ambulatory Srini Montano Facility:[facility] Start: 01-18-2025 Non-patient / Non-visit Dr. Srini salazar MD -[facility] Start: 01-18-2025 End: 01-18-[address] Samson Ragsdale DO Work Phone: [facility] Work Phone: Start: 01-18-2025 End: 01-18-[address] Srini Montano MD -Cardiovascular Services Work Phone: Start: 01-18-2025 Non-patient / Non-visit Dr. 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 Samson Ragsdale DO Work Phone: [facility] Work Phone: Start: 01-15-2025 End: 01-15-[address] Srini Montano MD -Laboratory Work Phone: Start: 01-15-2025 End: 01-15-[address] Srini Montano MD -[facility] Work Phone: Start: 01-15-2025 End: 01-15-[address] Samson Ragsdale DO Work Phone: [facility] Work Phone: Start: 01-15-2025 End: 01-15-2025 ambulatory Samson Ragsdale Facility:[facility] Start: 01-13-2025 End: 01-14-2025 Emergency department patient visit Dr. Samson Ragsdale DO Work Phone: -Emergency Department Work Phone: Start: 01-09-2025 End: 01-09-2025 Subsequent hospital visit by physician Sudeep [facility] Work Phone: Radiology Comment on above: Acute cough [R05.1] Start: 01-09-2025 End: 01-09-2025 Patient encounter procedure Khloe Ibarra BUSINESS SERVICES CLERK.WATER ATTENDANT Work Phone: [facility] Comment on above: Acute cough (Primary Dx); Acute non-recurrent maxillary sinusitis Start: 01-09-2025 End: 01-09-2025 ambulatory KHLOE KAILEYRYAN Facility:[facility] Start: 12-10-2024 End: 12-10-2024 [facility] Start: 12-10-2024 End: 12-10-2024 Patient encounter [facility] Comment on above: Population Health Na vigation Outreach ([facility] Start: 11-30-2024 End: 11-30-2024 Follow-up encounter Theodora Hernandez APRN.WATER ATTENDANT Work Phone: Internal Medicine [place] Start: 11-26-2024 End: 11-26-2024 Subsequent hospital visit by physician Sudeep [facility] Work Phone: Radiology Comment on above: Acute pain of both s alfredulders [M25.511, M25.512] Start: 11-26-2024 End: 11-26-2024 Office outpatient visit 15 minutes Theodora Hernandez APRN.WATER ATTENDANT Work Phone: [facility] [place] Comment on above: Upper back pain (Maty eugenia Dx); Acute pain of both shoulders; Type 2 diabetes mellitus without complication, with long-term current use of insulin (HCC) Start: 11-26-2024 End: 11-26-2024 ambulatory THEODORA M SCOTTY Facility:[facility] Start: 10-25-2024 End: 10-25-2024 Refill Samson Ragsdale DO Work Phone: [facility] Comment on above: Refill Request Start: 09-26-2024 End: 09-26-2024 ambulatory SAMSON RAGSDALE Facility:[facility] Start: 09-26-2024 End: 09-26-2024 Patient encounter procedure Samson Ragsdale DO Work Phone: [facility] [place] Comment on above: Controlled type 2 di [...] sites, unspecified cause, unspecified chronicity; 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); Pure hypercholesterolemia; Vitamin D deficiency Start: 09-19-2024 End: 11-19-2024 Follow-up encounter Desirae Irving APRN.WATER ATTENDANT Work Phone: [facility] Start: 09-17-2024 End: 09-17-2024 Orders Only Desirae Irving APRN.WATER ATTENDANT Work Phone: [facility] Comment on above: Controlled type 2 [...] Start: 05-31-2024 End: 05-31-2024 ambulatory Cristela Andersen Facility:[facility] Start: 05-31-2024 End: 05-31-2024 Patient encounter procedure Cristela Andersen SAMUEL Work Phone: General Surgery Comment on above: Collagenous colitis (Primary Dx) Start: 05-30-2024 End: 05-30-2024 Telephone encounter Cristela Andersen SAMUEL Work Phone: General Surgery Comment on above: Appointment Start: 05-23-2024 ambulatory [facility] Facility:[facility] Start: 05-23-2024 End: 05-23-2024 Subsequent hospital visit by physician Malu Mendoza MD Work Phone: [facility] Comment on above: Chronic diarrhea [K5 2.9] Start: 05-09-2024 End: 05-09-2024 [facility] Work Phone: Pre Anesthesia Start: 05-09-2024 End: 05-09-2024 Anesthesia consultation [facility] Work Phone: Pre Anesthesia Comment on above: Pre-operative examin ation (Primary Dx); Other polyneuropathy; Abdominal aortic aneurysm (AAA) without rupture, unspecified part (HCC); 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); Complete atrioventricular [...] Start: 05-09-2024 End: 05-09-2024 Preprocedural examination done [facility] Work Phone: [facility] Start: 05-08-2024 End: 08-21-2024 Telephone encounter Samson Ragsdale DO Work Phone: [facility] Comment on above: Erroneous encounter- disregard Start: 04-27-2024 End: 04-27-2024 Refill Samson Ragsdale DO Work Phone: [facility] Comment on above: Refill Request Start: 04-16-2024 End: 06-05-2024 Telephone encounter Cristela Andersen APRN.WATER ATTENDANT Work Phone: General Surgery Comment on above: Appointment Start: 04-13-2024 End: 04-13-2024 Patient encounter procedure Cristela Andersen APRN.WATER ATTENDANT Work Phone: General Surgery Comment on above: Gastroesophageal ref lux disease without esophagitis (Primary Dx); Chronic diarrhea; Generalized abdominal pain Start: 04-12-2024 End: 04-12-2024 Telephone encounter Samson Ragsdale DO Work Phone: [facility] Comment on above: Patient Question Start: 04-06-2024 End: 04-06-2024 Refill Samson Ragsdale DO Work Phone: [facility] [place] Comment on above: Refill Request Start: 04-03-2024 End: 04-03-2024 Refill Samson Ragsdale DO Work Phone: [facility] Comment on above: Refill Request Start: 03-26-2024 End: 03-26-2024 Patient encounter procedure Samson Ragsdale DO Work Phone: [facility] [place] Comment on above: Chronic diarrhea (Pr imary Dx); Generalized abdominal pain; Other polyneuropathy; Hypertensive kidney disease with chronic kidney disease stage IV (HCC); Essential hypertension, benign; 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); Abdominal aortic aneurysm (AAA) without rupture, unspecified part (HCC); 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, with long-term current use of insulin (HCC); Arthritis, multiple joint involvement; Stage 3b chronic kidney disease (HCC) Start: 03-09-2024 Telephone encounter Samson rodriguez DO Work Phone: [facility] Comment on above: Orders Start: 01-27-2024 Refill Samson irizarry DO Work Phone: [facility] Comment on above: Refill Request Start: 11-10-2023 Telephone encounter Samson rodriguez DO Work Phone: [facility] Start: 10-24-2023 Refill Samson irizarry DO Work Phone: [facility] [place] Comment on above: Refill Request Start: 10-04-2023 End: 10-04-2023 Patient encounter procedure Brittany West DO Work Phone: Vascular Surgery Comment on above: Bilateral carotid ar pawan stenosis (Primary Dx); Infrarenal abdominal aortic aneurysm (AAA) without rupture (HCC) Start: 09-27-2023 Telephone encounter Samson rodriguez DO Work Phone: [facility] Start: 09-26-2023 End: 09-26-2023 Patient encounter procedure [facility] Comment on above: CKD (chronic kidney disease) stage 4, GFR 15-29 ml/min (HCC) (Primary Dx); Hypertensive heart disease without heart failure; Essential hypertension, benign; Diarrhea, unspecified type; Complete atrioventricular block (HCC); Malignant neoplasm of prostate (HCC); Type 2 diabetes mellitus with stage 4 chronic kidney disease, with long-term current use of insulin (HCC); 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); Coronary artery 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 rich plaque; Other polyneuropathy; Gout of multiple sites, unspecified cause, unspecified chronicity; Arthritis, multiple joint involvement; Tinnitus, bilateral; Other specified hearing loss of both ears; Actinic keratosis Start: 09-19-2023 Orders Only Desirae Irving APRN.WATER ATTENDANT Work Phone: [facility] Comment on above: Type 2 diabetes dominic itus with stage 4 chronic kidney disease, with long-term current use of insulin (HCC) (Primary Dx); Malignant neoplasm of prostate (HCC); Essential hypertension, benign; History of prostate cancer Start: 07-05-2023 Refill Samson irizarry DO Work Phone: [facility] Comment on above: Refill Request Start: 06-07-2023 Telephone encounter Samson rodriguez DO Work Phone: [facility] Comment on above: [facility] Start: 05-31-2023 End: 05-31-2023 Patient encounter procedure Brittany West DO Work Phone: Vascular Surgery Comment on above: Bilateral carotid ar pawan stenosis (Primary Dx); Infrarenal abdominal aortic aneurysm (AAA) without rupture (HCC) Start: 05-30-2023 Telephone encounter Samson Jaison Manriquez michael DO Work Phone: [facility] Comment on above: [facility] Start: 05-24-2023 End: 05-28-2023 Evaluation and management of inpatient JESUS MIJARES MD Facility:A Start: 05-24-2023 End: 05-28-2023 Evaluation and management of inpatient JESUS MIJARES MD [facility] Start: 05-09-2023 Telephone encounter Samson Blackwood Mitra edmundyosef DO Work Phone: [facility] [place] Comment on above: Physician requesting call back Start: 05-09-2023 End: 05-09-2023 Nursing evaluation of patient and report Nurse Card Admin [facility] Work Phone: Cardiology Comment on above: Screening for ischem ic heart disease (Primary Dx) Start: 05-09-2023 End: 05-09-2023 Subsequent hospital visit by physician [facility] Work Phone: Nuclear Medicine Comment on above: SOB (shortness of br eath) [R06.02] Start: 03-24-2023 Telephone encounter Samson rodriguez DO Work Phone: [facility] [place] Comment on above: Results Start: 03-23-2023 End: 03-23-2023 Subsequent hospital visit by physician Xr [facility] [place] Work Phone: Radiology Comment on above: SOB (shortness of br eath) [R06.02] Start: 03-23-2023 End: 03-23-2023 Patient encounter procedure Samson Ragsdale DO Work Phone: [facility] [place] Comment on above: SOB (shortness of br eath) (Primary Dx); Coronary artery 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 rich plaque; Chest pain on breathing; Bilateral chronic knee pain; 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; Type 2 diabetes mellitus with stage 4 chronic kidney disease, with long-term current use of insulin (HCC); Malignant neoplasm of prostate (HCC); 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 ([facility]); Other polyneuropathy; Essential hypertension, benign; Gout of multiple sites, unspecified cause, unspecified chronicity; Arthritis, multiple joint involvement; Vitamin D deficiency; CKD (chronic kidney disease) stage 4, GFR 15-29 ml/min ([facility]) Start: 03-07-2023 Telephone encounter Samson shafferyosef DO Work Phone: [address] [place] [address] Comment on above: Orders Start: 02-02-2023 Refill Samson irizarry DO Work Phone: [facility] [place] Comment on above: Refill Request Start: 11-30-2022 End: 11-30-2022 Patient encounter procedure Tonny Nieves WATER ATTENDANT Work Phone: [facility] Comment on above: Sinobronchitis (Prim vinita Dx) Start: 10-27-2022 Refill Samson irizarry DO Work Phone: [facility] [place] Comment on above: Refill Request Start: 10-08-2022 Telephone encounter Samson Jaison rodriguez DO Work Phone: [facility] [place] Comment on above: Results Start: 09-24-2022 Refill Samson irizarry DO Work Phone: [facility] [place] Comment on above: Refill Request Start: 09-22-2022 End: 09-22-2022 Patient encounter procedure Samson Perryrison DO Work Phone: [facility] [place] Comment on above: Controlled type 2 [...] Telephone encounter Samson rodriguez DO Work Phone: [facility] [place] Comment on above: Orders Start: 07-28-2022 End: 07-28-2022 Patient encounter procedure Jocelin Lange PA-C Work Phone: [facility] Comment on above: Bronchitis (Primary Dx) Start: 06-10-2022 Refill Samson irizarry DO Work Phone: [facility] Comment on above: Refill Request Start: 04-22-2022 Refill Samson irizarry DO Work Phone: [facility] [place] Comment on above: Refill Request Start: 03-23-2022 End: 03-23-2022 Patient encounter procedure Samson Ragsdale DO Work Phone: [facility] [place] Comment on above: Controlled type 2 di abetes mellitus without complication, without long-term current use of insulin (HCC) (Primary Dx); Essential hypertension, benign; Hypertensive heart disease without heart failure; CKD (chronic kidney disease) stage 4, GFR 15-29 ml/min ([facility]); Gout of multiple sites, unspecified cause, unspecified chronicity; Arthritis, multiple joint involvement; History of prostate cancer; Other iron deficiency anemia Start: 01-13-2022 Refill Samson irizarry DO Work Phone: [facility] [place] Comment on above: Refill Request Start: 12-04-2021 Telephone encounter Samson rodriguez DO Work Phone: [facility] Comment on above: Blood Pressure Start: 11-25-2021 End: 11-25-2021 Subsequent hospital visit by physician [facility] [place] Work Phone: Radiology Comment on above: Cough [R05.9] Start: 09-18-2020 End: 09-18-2020 Subsequent hospital visit by physician Xr [facility] Work Phone: Radiology Comment on above: Cough [R05] Start: 06-09-2020 End: 06-09-2020 Subsequent hospital visit by physician Xr [facility] Work Phone: Radiology Comment on above: Pain of left scapula [M89.8X1] Procedures Date Procedure Procedure Detail Performing Clinician Start: 03-26-2025 Urnls dip stick/tablet reagent auto microscopy Dr. Samson Ragsdale DO Work Phone: Start: 03-05-[address] Samson Ragsdale DO Work Phone: Start: 01-31-2025 Mri brain brain stem w/o contrast material Lala Godinez BUSINESS SERVICES CLERK.WATER ATTENDANT Work Phone: Start: 01-18-2025 CT of head [...] Radiologic exam chest 2 views Khloe crow BUSINESS SERVICES CLERK.WATER ATTENDANT Work Phone: Start: 05-23-2024 Gluc bld gluc mntr dev cleared fda spec home use Cristin Nieves MD Work Phone: Start: 05-23-2024 Inf agent det nucleic acid clostridium amp probe Malu Mendoza MD Work Phone: Start: 05-23-2024 Colonoscopy flx dx w/collj spec when pfrmd Cristela Andersen BUSINESS SERVICES CLERK.WATER ATTENDANT Work Phone: Start: 05-23-2024 Esophagogastroduodenoscopy transoral diagnostic Cristela Andersen BUSINESS SERVICES CLERK.WATER ATTENDANT Work Phone: Start: 05-23-2024 Ecg routine ecg [...] Start: 11-25-2021 Radiologic exam chest 2 views Jneny Kylie tineo BUSINESS SERVICES CLERK.WATER ATTENDANT Work Phone: Start: 12-01-2020 Adult depression screening [...] Phone: Start: 04-05-2017 End: 06-27-2017 Referral to first press operator Rich Sanchez MD Work Phone: Start: 03-30-2017 End: 06-27-2017 *Hepatic Function Panel Rich Sancehz MD Work Phone: Start: 03-30-2017 End: 06-27-2017 Lipid 1996 panel - Serum or Plasma Rich Sanchez MD Work Phone: Start: 03-23-2017 End: 03-24-2017 *BMP Jesus Ortega Radha BOARDING HOUSE COOK Work Phone: Start: 03-23-2017 End: 03-24-2017 aPTT in Platelet poor plasma by Coagulation assay Jesus Ortega Radha BOARDING HOUSE COOK Work Phone: Start: 03-23-2017 End: 03-24-2017 CBC W Auto Differential panel - Blood Jesus Garcia BOARDING HOUSE COOK Work Phone: Start: 03-23-2017 End: 03-24-2017 INR in Platelet poor plasma by Coagulation assay Jesus Ortega Radha BOARDING HOUSE COOK Work Phone: Start: 03-23-2017 End: 04-15-2017 Left Heart Cath W/Grafts Jesus Ortega Roof BOARDING HOUSE COOK Work Phone: Start: 03-07-2017 End: 03-08-2017 Natriuretic peptide B [Mass/volume] in Blood Jesus Ortega Radha BOARDING HOUSE COOK Work Phone: Start: 03-07-2017 End: 04-15-2017 Stress Echocardiogram (treadmill) Jesus Ortega Radha BOARDING HOUSE COOK Work Phone: Start: 02-25-2017 End: 04-15-2017 Ecg [...] Phone: Start: 01-18-2017 End: 01-19-2017 Referral to first press operator Pat Greenfield PA-C Work Phone: Start: 12-31-2016 [...] PCI-DAVID-RCA 3.50 x 16 mm Synergy 12/20/16; PFC-AOI-Riqm LCX 2.0 x 20 mm Promus Synergy 03/30/2017 Percutaneous translu jay coronary angioplasty PTCA - Percutaneous transluminal coronary angioplasty JESUS MIJARES MD Tonsillectomy JESUS MIJARES MD Plan of Treatment Date Care Activity Detail Author Start: 05-02-2033 Urine microalbumin profile DTaP,Tdap,Td Vaccine (3 - Td or Tdap) [facility] Start: 04-05-2026 Diabetic foot examination Diabetic Foot Exam [facility] Start: 03-25-2026 Hepatitis B screening Urine Albumin:Creatinine Ratio [facility] Start: 03-25-2026 Hepatitis B surface antibody level LDL Cholesterol [facility] Start: 03-21-2026 Glaucoma screening Dilated Retinal Exam [facility] Start: 10-07-2025 End: 01-06-2026 25-hydroxyvitamin D3 [Mass/volume] in Serum or Plasma VITAMIN D 25 HYDROXY Lab Routine Vitamin D deficiency Expected: 10/07/2025, Expires: 01/06/2026 [facility] Comment on above: Expected: 10/07/2025, Expires: Start: 10-07-2025 End: 01-06-2026 CBC panel - Blood by Automated count COMPLETE BLOOD COUNT Lab Routine CKD (chronic kidney disease) stage 4, GFR 15-29 ml/min ([facility]) 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, with long-term current use of insulin ([facility]) Expected: 10/07/2025, Expires: 01/06/2026 [facility] Comment on above: Expected: 10/07/2025, Expires: Start: 10-07-2025 End: 01-06-2026 Cobalamin (Vitamin B12) [Mass/volume] in Serum or Plasma VITAMIN B12 Lab Routine 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, with long-term current use of insulin (HCC) Expected: 10/07/2025, Expires: 01/06/2026 [facility] Comment on above: Expected: 10/07/2025, Expires: Start: 10-07-2025 End: 01-06-2026 Comprehensive metabolic 2000 panel - Serum or Plasma COMPREHENSIVE METABOLIC PANEL Lab Routine CKD (chronic kidney disease) stage 4, GFR 15-29 ml/min (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, with long-term current use of insulin (HCC) Expected: 10/07/2025, Expires: 01/06/2026 [facility] Comment on above: Expected: 10/07/2025, Expires: Start: 10-07-2025 End: 01-06-2026 Hemoglobin A1c in Blood HEMOGLOBIN A1C Lab Routine 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, with long-term current use of insulin (HCC) Expected: 10/07/2025, Expires: 01/06/2026 [facility] Work Phone: Comment on above: Expected: 10/07/2025, Expires: Start: 10-07-2025 End: 01-06-2026 Lipid 1996 panel - Serum or Plasma LIPID PANEL, FASTING Lab Routine Pure hypercholesterolemia Expected: 10/07/2025, Expires: 01/06/2026 [facility] Comment on above: Expected: 10/07/2025, Expires: Start: 10-07-2025 End: 01-06-2026 Thyrotropin [Units/volume] in Serum or Plasma THYROID STIMULATING HORMONE Lab Routine 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, with long-term current use of insulin (HCC) Expected: 10/07/2025, Expires: 01/06/2026 [facility] Comment on above: Expected: 10/07/2025, Expires: Start: 10-02-2025 End: 10-02-2025 Patient encounter procedure 10/02/2025 3:40 PM EST Office Visit [facility] [address] [place] [address] Samson Ragsdale DO [address] [place] [address] 6 month follow up [facility] Comment on above: 6 month follow up Start: 09-26-2025 Covid-19 Vaccine () Covid-19 Vaccine () [facility] Comment on above: Postponed from 04/01/2024 (Declined at t his time) Start: 09-25-2025 Hemoglobin A1c measurement HbA1C [facility] Start: 09-17-2025 Hepatitis B surface antibody level LDL Cholesterol [facility] Start: 04-15-2025 End: 04-15-2025 Patient encounter procedure 04/15/2025 3:00 PM EDT Office Visit Neurology [address] [place] [address] Manuela Lacy MD [address] [place] [address] Myasthenia gravis (HCC) [G70.00] follow up Neurology Comment on above: Myasthenia gravis (HCC) [G70.00] follow up Start: 04-05-2025 End: 04-05-2025 Patient encounter procedure 04/05/2025 1:40 PM EDT Appointment Cat Scan [address] [place], [place] [id number] Myasthenia gravis (HCC) [G70.00] follow up Cat Scan Comment on above: Myasthenia gravis (HCC) [G70.00] follow up Start: 04-02-2025 End: 04-02-2025 Patient encounter procedure 04/02/2025 2:40 PM EDT Office Visit Family [facility] [address] [place] [address] Samson Ragsdale DO [address] [place] [address] 6 month follow up Family [facility] Comment on above: 6 month follow up Start: 04-01-2025 Influenza vaccination [facility] Start: 03-26-2025 End: 06-25-2025 25-hydroxyvitamin D3 [Mass/volume] in Serum or Plasma VITAMIN D 25 HYDROXY Lab Routine Vitamin D deficiency Expected: 03/26/2025, Expires: 06/25/2025 [facility] Comment on above: Expected: 03/26/2025, Expires: Start: 03-26-2025 End: 06-25-2025 CBC panel - Blood by Automated count COMPLETE BLOOD COUNT Lab Routine 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, with long-term current use of insulin (HCC) Expected: 03/26/2025, Expires: 06/25/2025 [facility] Comment on above: Expected: 03/26/2025, Expires: Start: 03-26-2025 End: 06-25-2025 Comprehensive metabolic 2000 panel - Serum or Plasma COMPREHENSIVE METABOLIC PANEL Lab Routine 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, with long-term current use of insulin (HCC) Expected: 03/26/2025, Expires: 06/25/2025 [facility] Comment on above: Expected: 03/26/2025, Expires: Start: 03-26-2025 End: 06-25-2025 Hemoglobin A1c in Blood HEMOGLOBIN A1C Lab Routine 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, with long-term current use of insulin (HCC) Expected: 03/26/2025, Expires: 06/25/2025 [facility] Work Phone: Comment on above: Expected: 03/26/2025, Expires: Start: 03-26-2025 End: 06-25-2025 Iron and Iron binding capacity panel - Serum or Plasma IRON AND TIBC Lab Routine 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, with long-term current use of insulin (HCC) Expected: 03/26/2025, Expires: 06/25/2025 [facility] Comment on above: Expected: 03/26/2025, Expires: Start: 03-26-2025 End: 06-25-2025 Lipid 1996 panel - Serum or Plasma LIPID PANEL BASIC Lab Routine Pure hypercholesterolemia Expected: 03/26/2025, Expires: 06/25/2025 [facility] Comment on above: Expected: 03/26/2025, Expires: Start: 03-26-2025 End: 06-25-2025 Magnesium [Mass/volume] in Serum or Plasma MAGNESIUM Lab Routine 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, with long-term current use of insulin (HCC) Expected: 03/26/2025, Expires: 06/25/2025 [facility] Comment on above: Expected: 03/26/2025, Expires: Start: 03-26-2025 End: 06-25-2025 Microalbumin/Creatinine [Mass Ratio] in Urine ALBUMIN/CREATININE RATIO, URINE Lab Routine 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, with long-term current use of insulin (HCC) Expected: 03/26/2025, Expires: 06/25/2025 [facility] Comment on above: Expected: 03/26/2025, Expires: Start: 03-19-2025 Hepatitis B surface antibody level LDL Cholesterol [facility] Start: 03-18-2025 End: 03-18-2025 Patient encounter procedure 03/18/2025 2:00 PM EDT Office Visit Neurology [address] [place] [address] Manuela Lacy MD [address] [place] [address] Myasthenia gravis (HCC) [G70.00] Neurology Comment on above: Myasthenia gravis (HCC) [G70.00] Start: 03-17-2025 Hemoglobin A1c measurement HbA1C [facility] Start: 02-20-2025 End: 02-20-2025 Patient encounter procedure 02/20/2025 3:00 PM EDT Office Visit Neurology [address] [place], [place] [id number] Jud Maguire PA-C [address] [place], [place] [id number] Cerebral microvascular disease [I67.89] Neurology Comment on above: Cerebral microvascular disease [I67.89] Start: 02-20-2025 End: 05-22-2025 ACETYLCHOLINE REC BINDING AB [facility] Work Phone: Comment on above: Expected: 02/20/2025, Expires: Start: 02-20-2025 End: 05-22-2025 ACETYLCHOLINE REC BLOCKING AB [facility] Comment on above: Expected: 02/20/2025, Expires: Start: 02-20-2025 End: 05-22-2025 ACETYLCHOLINE RECEPTOR MODULATING ANTIBODY [facility] Comment on above: Expected: 02/20/2025, Expires: Start: 02-20-2025 End: 05-22-2025 C reactive protein [Mass/volume] in Serum or Plasma [facility] Comment on above: Expected: 02/20/2025, Expires: Start: 02-20-2025 End: 05-22-2025 CBC W Auto Differential panel - Blood [facility] Comment on above: Expected: 02/20/2025, Expires: Start: 02-20-2025 End: 05-22-2025 Cobalamin (Vitamin B12) [Mass/volume] in Serum or Plasma [facility] Comment on above: Expected: 02/20/2025, Expires: Start: 02-20-2025 End: 05-22-2025 Comprehensive metabolic 2000 panel - Serum or Plasma [facility] Comment on above: Expected: 02/20/2025, Expires: Start: 02-20-2025 End: 05-22-2025 Erythrocyte sedimentation rate [facility] Comment on above: Expected: 02/20/2025, Expires: Start: 02-20-2025 End: 05-22-2025 Methylmalonate [Moles/volume] in Serum or Plasma [facility] Comment on above: Expected: 02/20/2025, Expires: Start: 02-20-2025 End: 05-22-2025 PROT ELECT SERUM WITH ELIZABETH AND INTERP [facility] Comment on above: Expected: 02/20/2025, Expires: Start: 01-31-2025 End: 01-31-2025 Patient encounter procedure 01/31/2025 12:00 PM EDT Appointment Radiology [address] [place] [address] Other symptoms and signs involving the nervous system [R29.818] Radiology Comment on above: Other symptoms and signs involving the n ervous system [R29.818] Start: 01-30-2025 End: 01-30-2025 Patient encounter procedure 01/30/2025 1:20 PM EDT Office Visit Family [facility] [address] [place], [place] [phone] Lala Godinez APRN.[facility] [address], [place] [id number] follow up-Patient believes he has had a stroke See TE 01/29/2025 [facility] Comment on above: follow up-Patient believes he has had a stroke See TE 01/29/2025 Start: 01-29-2025 Measurement of respiratory function [facility] Start: 01-28-2025 Influenza vaccination Influenza Vaccine (#1) [facility] Comment on above: Postponed from 04/01/2024 (Declined at t his time) Start: 01-15-2025 Patient referral [facility] Work Phone: Start: 01-14-2025 [facility] Start: 01-13-2025 [facility] Start: 09-26-2024 End: 09-26-2024 Patient encounter procedure 09/26/2024 2:20 PM EST Office Visit Family [facility] [address] [place], [place] [id number] Samson Ragsdale DO [address] [place] [address] Physical [facility] [place] Comment on above: Physical Start: 09-26-2024 Covid-19 Vaccine () Covid-19 Vaccine () [facility] Comment on above: Postponed from 04/01/2023 (Declined at t his time) Start: 09-23-2024 Hepatitis B surface antibody level LDL Cholesterol [facility] Start: 09-19-2024 Hemoglobin A1c measurement HbA1C [facility] Start: 09-17-2024 End: 12-17-2024 Comprehensive metabolic 2000 panel - Serum or Plasma [facility] Work Phone: Comment on above: Expected: 09/17/2024, Expires: Start: 09-17-2024 End: 12-17-2024 Hemoglobin A1c in Blood [facility] Comment on above: Expected: 09/17/2024, Expires: Start: 09-17-2024 End: 12-17-2024 Lipid 1996 panel - Serum or Plasma [facility] Comment on above: Expected: 09/17/2024, Expires: Start: 09-17-2024 End: 12-17-2024 PSA/PROSTATE SPECIFIC ANTIGEN SCREENING [facility] Comment on above: Expected: 09/17/2024, Expires: Start: 05-31-2024 End: 05-31-2024 Patient encounter procedure 05/31/2024 2:00 PM EDT Office Visit General Surgery [address] [place], [place] [phone] Cristela Andersen APRN.WATER ATTENDANT [address] [place], [place] [phone] 05-23 EGD & colon follow up General Surgery Comment on above: 05-23 EGD & colon follow up Start: 05-23-2024 End: 05-23-2024 Patient encounter procedure 05/23/2024 3:00 PM EDT Appointment [facility] [address] [place] [id number] Malu Mendoza MD [address] [place] [phone] colon/egd [facility] Comment on above: colon/egd Start: 05-09-2024 End: 05-09-2024 Anesthesia consultation 05/09/2024 1:40 PM EDT PAT Pre Anest[facility] [address] [place] [address] 1, Pac [facility] [address] [place] [address] egd colonoscopy unable to do virtual Pre Anesthesia Comment on above: egd colonoscopy unable to do virtual Start: 04-13-2024 End: 04-13-2024 Patient encounter procedure General Surg j[facility] Comment on above: Chronic diarrhea [K52.9] Chronic diarrhea, ge neralized abdominal pain Start: 04-01-2024 Covid-19 Vaccine () Covid-19 Vaccine () [facility] Start: 04-01-2024 Covid-19 Vaccine () Covid-19 Vaccine () [facility] Start: 04-01-2024 Influenza vaccination [facility] Start: 03-26-2024 End: 03-26-2024 Patient encounter procedure 03/26/2024 3:00 PM EDT Office Visit Family [facility] [address] [place] [address] Samson Ragsdale DO [address] [facility] [place] [address] 6 month follow up [facility] [place] Comment on above: 6 month follow up Start: 03-23-2024 3 comp foot exam completed DIABETIC FOOT EXAM [facility] Start: 03-23-2024 Diabetic foot examination Diabetic Foot Exam [facility] Start: 03-23-2024 Hemoglobin A1c measurement HbA1C [facility] Start: 03-09-2024 End: 06-08-2024 CBC W Auto Differential panel - Blood COMPLETE BLOOD COUNT AND DIFFERENTIAL Lab Routine Essential hypertension, benign Expected: 03/09/2024, Expires: 06/08/2024 [facility] Comment on above: Expected: 03/09/2024, Expires: Start: 03-09-2024 End: 06-08-2024 Comprehensive metabolic 2000 panel - Serum or Plasma COMPREHENSIVE METABOLIC PANEL Lab Routine Essential hypertension, benign Expected: 03/09/2024, Expires: 06/08/2024 [facility] Comment on above: Expected: 03/09/2024, Expires: Start: 03-09-2024 End: 06-08-2024 Hemoglobin A1c in Blood HEMOGLOBIN A1C Lab Routine 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, with long-term current use of insulin (HCC) Expected: 03/09/2024, Expires: 06/08/2024 [facility] Work Phone: Comment on above: Expected: 03/09/2024, Expires: Start: 03-09-2024 End: 06-08-2024 Lipid 1996 panel - Serum or Plasma LIPID PANEL BASIC Lab Routine Essential hypertension, benign Expected: 03/09/2024, Expires: 06/08/2024 [facility] Comment on above: Expected: 03/09/2024, Expires: Start: 01-29-2024 Influenza vaccination Influenza Vaccine (#1) [facility] Comment on above: Postponed from 04/01/2023 (Declined at t his time) Start: 09-19-2023 End: 12-19-2023 CBC W Auto Differential panel - Blood CBC + DIFF Lab Routine Type 2 diabetes mellitus with stage 4 chronic kidney disease, with long-term current use of insulin (HCC) Essential hypertension, benign Expected: 09/19/2023, Expires: 12/19/2023 [facility] Work Phone: Comment on above: Expected: 09/19/2023, Expires: Start: 09-19-2023 End: 12-19-2023 Comprehensive metabolic 2000 panel - Serum or Plasma COMP METABOLIC PANEL Lab Routine Type 2 diabetes mellitus with stage 4 chronic kidney disease, with long-term current use of insulin (HCC) Essential hypertension, benign Expected: 09/19/2023, Expires: 12/19/2023 [facility] Work Phone: Comment on above: Expected: 09/19/2023, Expires: Start: 09-19-2023 End: 12-19-2023 Hemoglobin A1c in Blood HGB A1C Lab Routine Type 2 diabetes mellitus with stage 4 chronic kidney disease, with long-term current use of insulin (HCC) Expected: 09/19/2023, Expires: 12/19/2023 [facility] Work Phone: Comment on above: Expected: 09/19/2023, Expires: 4 Start: 09-19-2023 End: 12-19-2023 Lipid 1996 panel - Serum or Plasma LIPID PANEL BASIC Lab Routine Type 2 diabetes mellitus with stage 4 chronic kidney disease, with long-term current use of insulin (HCC) Essential hypertension, benign Expected: 09/19/2023, Expires: 12/19/2023 [facility] Work Phone: Comment on above: Expected: 09/19/2023, Expires: Start: 09-19-2023 End: 12-19-2023 Prostate specific Ag [Mass/volume] in Serum or Plasma PSA/PROSTSPECAG DIAG Lab Routine Malignant neoplasm of prostate (HCC) History of prostate cancer Expected: 09/19/2023, Expires: 12/19/2023 [facility] Work Phone: Comment on above: Expected: 09/19/2023, Expires: Start: 09-14-2023 Hemoglobin A1c measurement HbA1C [facility] Start: 09-14-2023 Hemoglobin A1c/Hemoglobin.total in Blood HBA1C [facility] Start: 09-13-2023 Hepatitis B surface antibody level LDL CHOLESTEROL [facility] Start: 08-09-2023 Glaucoma screening Dilated Retinal Exam [facility] Start: 08-09-2023 Hepatitis C antibody, confirmatory test DILATED RETINAL EXAM [facility] Start: 08-01-2023 Depression Assessment Depression Assessment [facility] Start: 04-01-2023 Covid-19 Vaccine () Covid-19 Vaccine () [facility] Start: 04-01-2023 Influenza vaccination [facility] Start: 03-23-2023 3 comp foot exam completed DIABETIC FOOT EXAM [facility] Start: 03-23-2023 Adult depression screening assessment DEPRESSION SCREENING [facility] Start: 03-23-2023 ANNUAL PCP TEAM CHRONIC DISEASE VISIT ANNUAL PCP TEAM CHRONIC DISEASE VISIT [facility] Start: 03-23-2023 BP CONTROLLED (<130/80) BP CONTROLLED (<130/80) [facility] Start: 03-16-2023 HEMOGLOBIN/HEMATOCRIT HEMOGLOBIN/HEMATOCRIT [facility] Start: 03-16-2023 SERUM CREATININE SERUM CREATININE [facility] Start: 03-13-2023 Hemoglobin A1c/Hemoglobin.total in Blood HBA1C [facility] Start: 03-11-2023 Shingrix Vaccine (3 of 3) Shingrix Vaccine (3 of 3) [facility] Start: 03-07-2023 End: 05-07-2023 CBC W Auto Differential panel - Blood CBC + DIFF Lab Routine Essential hypertension, benign CKD (chronic kidney disease) stage 4, GFR 15-29 ml/min (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, with long-term current use of insulin (HCC) Expected: 03/07/2023, Expires: 05/07/2023 [facility] Work Phone: Comment on above: Expected: 03/07/2023, Expires: 3 Start: 03-07-2023 End: 05-07-2023 Comprehensive metabolic 2000 panel - Serum or Plasma COMP METABOLIC PANEL Lab Routine Essential hypertension, benign CKD (chronic kidney disease) stage 4, GFR 15-29 ml/min (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, with long-term current use of insulin (HCC) Expected: 03/07/2023, Expires: 05/07/2023 [facility] Work Phone: Comment on above: Expected: 03/07/2023, Expires: 3 Start: 03-07-2023 End: 05-07-2023 Hemoglobin A1c in Blood HGB A1C Lab Routine 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, with long-term current use of insulin (HCC) Expected: 03/07/2023, Expires: 05/07/2023 [facility] Work Phone: Comment on above: Expected: 03/07/2023, Expires: 3 Start: 01-28-2023 Influenza vaccination INFLUENZA (#1) [facility] Comment on above: Postponed from 04/01/2022 (Declined at t his time) Start: 12-07-2022 HEMOGLOBIN/HEMATOCRIT HEMOGLOBIN/HEMATOCRIT [facility] Start: 12-07-2022 Hepatitis B surface antibody level LDL CHOLESTEROL [facility] Start: 12-07-2022 SERUM CREATININE SERUM CREATININE [facility] Start: 09-16-2022 Hemoglobin A1c/Hemoglobin.total in Blood HBA1C [facility] Start: 09-15-2022 ANNUAL PCP TEAM CHRONIC DISEASE VISIT ANNUAL PCP TEAM CHRONIC DISEASE VISIT [facility] Start: 09-09-2022 HEMOGLOBIN/HEMATOCRIT HEMOGLOBIN/HEMATOCRIT [facility] Start: 09-09-2022 Hepatitis B screening Urine Albumin:Creatinine Ratio [facility] Start: 09-09-2022 Hepatitis B surface antibody level LDL CHOLESTEROL [facility] Start: 09-09-2022 SERUM CREATININE SERUM CREATININE [facility] Start: 08-18-2022 Hepatitis C antibody, confirmatory test DILATED RETINAL EXAM [facility] Start: 08-06-2022 End: 10-06-2022 C reactive protein [Mass/volume] in Serum or Plasma C-REACTIVE PROTEIN (CRP) Lab Routine Gout of multiple sites, unspecified cause, unspecified chronicity Expected: 08/06/2022, Expires: 10/06/2022 [facility] Work Phone: Comment on above: Expected: 08/06/2022, Expires: 3 Start: 08-06-2022 End: 10-06-2022 CBC W Auto Differential panel - Blood CBC + DIFF Lab Routine Pure hypercholesterolemia Expected: 08/06/2022, Expires: 10/06/2022 [facility] Work Phone: Comment on above: Expected: 08/06/2022, Expires: 3 Start: 08-06-2022 End: 10-06-2022 Comprehensive metabolic 2000 panel - Serum or Plasma COMP METABOLIC PANEL Lab Routine Pure hypercholesterolemia Expected: 08/06/2022, Expires: 10/06/2022 [facility] Work Phone: Comment on above: Expected: 08/06/2022, Expires: 3 Start: 08-06-2022 End: 10-06-2022 Hemoglobin A1c in Blood HGB A1C Lab Routine Controlled type 2 diabetes mellitus without complication, without long-term current use of insulin (HCC) Expected: 08/06/2022, Expires: 10/06/2022 [facility] Work Phone: Comment on above: Expected: 08/06/2022, Expires: 3 Start: 08-06-2022 End: 10-06-2022 Lipid 1996 panel - Serum or Plasma LIPID PANEL BASIC Lab Routine Pure hypercholesterolemia Expected: 08/06/2022, Expires: 10/06/2022 [facility] Work Phone: Comment on above: Expected: 08/06/2022, Expires: 3 Start: 08-06-2022 End: 10-06-2022 PSA/PROSTSPECAG SCRN PSA/PROSTSPECAG SCRN Lab Routine History of prostate cancer Screening for prostate cancer Expected: 08/06/2022, Expires: 10/06/2022 [facility] Work Phone: Comment on above: Expected: 08/06/2022, Expires: 3 Start: 08-06-2022 End: 10-06-2022 Urate [Mass/volume] in Serum or Plasma URIC ACID BLOOD Lab Routine Gout of multiple sites, unspecified cause, unspecified chronicity Expected: 08/06/2022, Expires: 10/06/2022 [facility] Work Phone: Comment on above: Expected: 08/06/2022, Expires: 3 Start: 08-01-2022 DEPRESSION ASSESSMENT DEPRESSION ASSESSMENT [facility] Start: 06-09-2022 Hemoglobin A1c/Hemoglobin.total in Blood HBA1C [facility] Start: 04-01-2022 Influenza vaccination INFLUENZA (#1) [facility] Start: 03-09-2022 Hemoglobin A1c/Hemoglobin.total in Blood HBA1C [facility] Start: 12-01-2021 Adult depression screening assessment DEPRESSION SCREENING [facility] Start: 09-09-2021 BP CONTROLLED (<130/80) BP CONTROLLED (<130/80) [facility] Start: 08-25-2021 3 comp foot exam completed DIABETIC FOOT EXAM [facility] Start: 08-01-2021 ADVANCE DIRECTIVE DISCUSSION ADVANCE DIRECTIVE DISCUSSION [facility] Start: 08-01-2021 DEPRESSION ASSESSMENT DEPRESSION ASSESSMENT [facility] Start: 03-24-2021 COVID-19 VACCINE (3 - Booster for Moderna series) COVID-19 VACCINE (3 - Booster for Moderna series) [facility] Start: 12-17-2020 COVID-19 VACCINE (3 - Booster for Moderna series) COVID-19 VACCINE (3 - Booster for Moderna series) [facility] Start: 12-17-2020 COVID-19 VACCINE (3 - Moderna series) COVID-19 VACCINE (3 - Moderna series) [facility] Start: 10-18-2017 End: 10-18-2017 Appointment Appointment [facility] Work Phone: Start: 06-27-2017 End: 06-27-2017 LEVI SIMS [facility] Work Phone: Start: 06-27-2017 End: 06-27-2017 Follow Up Appt 3 months Follow Up Appt 3 months [facility] Work Phone: Start: 06-27-2017 End: 06-27-2017 Appointment Appointment [facility] Work Phone: Start: 05-27-2017 End: 04-29-2017 CBC W Auto Differential panel - Blood *CBC [facility] Work Phone: Start: 04-21-2017 End: 04-21-2017 LEVI SIMS [facility] Work Phone: Start: 04-21-2017 End: 04-21-2017 Esophagogastroduodenoscopy transoral diagnostic EGD; diagnostic [facility] Work Phone: Start: 04-21-2017 End: 04-21-2017 Follow Up Appt 3 months Follow Up Appt 3 months [facility] Work Phone: Start: 04-21-2017 End: 04-21-2017 Pulmonary Function Test - complete Pulmonary Function Test - complete [facility] Work Phone: Start: 04-20-2017 End: 04-20-2017 Colonoscopy flx dx w/collj spec when pfrmd Colonoscopy [facility] Work Phone: Start: 04-05-2017 End: 04-05-2017 Cardiac Rehab Cardiac Rehab Re[facility] Cardiac Pulmonary, [address] [place], [address] [facility] Work Phone: Start: 03-30-2017 End: 06-27-2017 *Hepatic Function Panel *Hepatic Function Panel [facility] Work Phone: Start: 03-30-2017 End: 06-27-2017 Lipid panel [AGGREGATE] *Lipid Profile CC PCP [facility] Work Phone: Start: 03-23-2017 End: [...] Heart Cath W/Grafts Left Heart Cath W/Grafts [facility] Work Phone: Start: 03-07-2017 End: 03-08-2017 BNP *Brain Natriuretic Peptide BNP [facility] Work Phone: Start: 03-07-2017 End: 03-07-2017 Stress Echocardiogram (treadmill) Stress Echocardiogram (treadmill) [facility] Work Phone: Start: 02-25-2017 End: 04-15-2017 Ecg routine ecg w/least 12 lds w/i&r EKG (In office) [facility] Work Phone: Start: 02-16-2017 End: 02-16-2017 *BMP *BMP [facility] Work Phone: Start: 02-16-2017 End: 02-16-2017 *CBC with Differential *CBC with Differential [facility] Work Phone: Start: 02-16-2017 End: 02-25-2017 Chest x-ray X-Ray, Chest, PA & Lateral [facility] Work Phone: Start: 01-25-2017 End: 01-26-2017 Xtrnl mobile cv telemetry w/i&report 30 days 30 Day Holter Monitor [facility] Work Phone: Start: 01-18-2017 End: 04-05-2017 Cardiac Rehab Cardiac Rehab [address] [place], [address] [facility] Work Phone: Start: 01-18-2017 End: 01-18-2017 DJN DJN [facility] Work Phone: Start: 01-18-2017 End: 01-18-2017 Ecg routine ecg w/least 12 lds w/i&r EKG (In office) [facility] Work Phone: Start: 01-18-2017 End: 01-18-2017 Follow Up Appt 3 months Follow Up Appt 3 months [facility] Work Phone: Start: 12-31-2016 End: 01-03-2017 *BMP *BMP [facility] Work Phone: Start: 12-31-2016 End: 01-03-2017 BNP *Brain Natriuretic Peptide BNP [facility] Work Phone: Start: 2016 RSV Vaccine (1 - 1-dose 75+ series) RSV Vaccine (1 - 1-dose 75+ series) [facility] Start: 09-25-2012 SHINGRIX VACCINE (2 of 3) SHINGRIX VACCINE (2 of 3) [facility] Start: 08-01-2011 Urine microalbumin profile [facility] Start: 07-01-2006 Medicare Annual Wellness Visit Medicare Annual Wellnes s Visit [facility] Start: 2001 Hepatitis B Vaccine (1 of 3 - Risk 3-dose series) Hepatitis B Vaccine (1 of 3 - Risk 3-dose series) [facility] Start: 2001 RSV Vaccine (1 - 1-dose 60+ series) RSV Vaccine (1 - 1-dose 60+ series) [facility] Basic metabolic 2008 panel with ionized calcium - Serum or Plasma [facility] Clostridioides diffi cile toxin genes [Presence] in Stool by CHANTAL with probe detection C. DIFFICILE PCR Lab Routine Diarrhea, unspecified type Ordered: 09/26/2023 [facility] Work Phone: Comment on above: Ordered: 09/26/2023 Clostridioides diffi cile toxin genes [Presence] in Stool by CHANTAL with probe detection C. DIFFICILE PCR Lab Routine Chronic diarrhea Generalized abdominal pain Ordered: 03/26/2024 [facility] Comment on above: Ordered: 03/26/2024 End: 04-17-2026 CT Chest WO contrast CT CHEST WO IVCON Radiology Routine Myasthenia gravis (HCC) 1 Occurrences starting 03/18/2025 until 04/17/2026 [facility] Work Phone: Comment on above: 1 Occurrences starting 03/18/2025 until 04/17/2026 CT Chest WO contrast CT CHEST WO IVCON Radiology Routine Myasthenia gravis (HCC) 04/05/2025 1:57 PM EDT [facility] Work Phone: End: 02-16-2026 CT Head WO contrast CT BRAIN WO IVCON Radiology STAT Dysphagia, unspecified type Vision changes 1 Occurrences starting 01/17/2025 until 02/16/2026 [facility] Work Phone: Comment on above: 1 Occurrences starting 01/17/2025 until 02/16/2026 Doppler ultrasonography of aorta [facility] End: 03-23-2024 ECG COMPLETE ECG COMPLETE ECG Routine SOB (shortness of breath) Coronary artery 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 rich plaque Chest pain on breathing 1 Occurrences starting 03/23/2023 until 03/23/2024 [facility] Work Phone: Comment on above: 1 Occurrences starting 03/23/2023 until 03/23/2024 End: 03-23-2024 Echocardiography ECHO Cardiology Routine SOB (shortness of breath) Coronary artery 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 rich plaque Chest pain on breathing 1 Occurrences starting 03/23/2023 until 03/23/2024 [facility] Work Phone: Comment on above: 1 Occurrences starting 03/23/2023 until 03/23/2024 End: 04-16-2025 EGD DIAGNOSTIC EGD DIAGNOSTIC Endoscopy Routine Generalized abdominal pain Gastroesophageal reflux disease without esophagitis 1 Occurrences starting 04/16/2024 until 04/16/2025 [facility] Comment on above: 1 Occurrences starting 04/16/2024 until 04/16/2025 ENTERIC BACTERIAL PANEL BY PCR E NTERIC BACTERIAL PANEL BY PCR Lab Routine Diarrhea, unspecified type Ordered: 09/26/2023 [facility] Work Phone: Comment on above: Ordered: 09/26/2023 ENTERIC BACTERIAL PANEL BY PCR E NTERIC BACTERIAL PANEL BY PCR Lab Routine Chronic diarrhea Generalized abdominal pain Ordered: 03/26/2024 [facility] Comment on above: Ordered: 03/26/2024 ENTERIC BACTERIAL PANEL BY PCR [facility] Comment on above: Release Upon Ordering for 1 Occurrences starting 05/23/2024 End: 04-16-2025 Flexible sigmoidoscopy study COLONOSCOPY DIAGNOSTIC Endoscopy Routine Chronic diarrhea Generalized abdominal pain 1 Occurrences starting 04/16/2024 until 04/16/2025 [facility] Work Phone: Comment on above: 1 Occurrences starting 04/16/2024 until 04/16/2025 Giardia lamblia+Cryp tosporidium sp Ag [Presence] in Stool by Immunoassay CRYPTOSPORIDIUM AND GIARDIA ANTIGENS BY EIA Microbiology Routine Chronic diarrhea Generalized abdominal pain Ordered: 03/26/2024 [facility] Comment on above: Ordered: 03/26/2024 Giardia lamblia+Cryp tosporidium sp Ag [Presence] in Stool by Immunoassay [facility] Comment on above: Release Upon Ordering for 1 Occurrences starting 05/23/2024 Helicobacter pylori Ag [Presence] in Stool by Immunoassay H PYLORI AG BY EIA,STOOL Microbiology Routine Diarrhea, unspecified type Ordered: 09/26/2023 [facility] Work Phone: Comment on above: Ordered: 09/26/2023 End: 03-01-2026 MR Brain WO contrast MRI BRAIN WO IVCON Radiology STAT Other symptoms and signs involving the nervous system 1 Occurrences starting 01/30/2025 until 03/01/2026 [facility] Work Phone: Comment on above: 1 Occurrences starting 01/30/2025 until 03/01/2026 End: 04-21-2024 NM CARDIAC PERF STRESS/PHARM NM CARDIAC PERF STRESS/PHARM Radiology Routine SOB (shortness of breath) Coronary artery 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 rich plaque Chest pain on breathing 1 Occurrences starting 03/23/2023 until 04/21/2024 [facility] Work Phone: Comment on above: 1 Occurrences starting 03/23/2023 until 04/21/2024 PANC ELASTASE, FECAL PANC ELASTA SE, FECAL Lab Routine Chronic diarrhea Generalized abdominal pain Ordered: 03/26/2024 [facility] Work Phone: Comment on above: Ordered: 03/26/2024 PANC ELASTASE, FECAL [facility] Comment on above: Release Upon Ordering for 1 Occurrences starting 05/23/2024 Patient Education [facility] Work Phone: Patient referral [facility] Work Phone: End: 04-21-2024 Radex spine lumbosacral 2/3 views XR LUMBAR GENERAL 3V AP/LAT/L5-S1 Radiology Routine 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 1 Occurrences starting 03/23/2023 until 04/21/2024 [facility] Work Phone: Comment on above: 1 Occurrences starting 03/23/2023 until 04/21/2024 Radex spine lumbosac ral 2/3 views XR LUMBAR GENERAL 3V AP/LAT/L5-S1 Radiology Routine 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 03/23/2023 4:42 PM EDT [facility] Work Phone: End: 04-21-2024 Radiologic exam chest 2 views XR CHEST 2V FRONTAL/LAT Radiology Routine SOB (shortness of breath) Coronary artery 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 rich plaque Chest pain on breathing 1 Occurrences starting 03/23/2023 until 04/21/2024 [facility] Work Phone: Comment on above: 1 Occurrences starting 03/23/2023 until 04/21/2024 Radiologic exam chest 2 views XR CHEST 2V FRONTAL/LAT Radiology Routine SOB (shortness of breath) Coronary artery 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 rich plaque Chest pain on breathing 03/23/2023 4:41 PM EDT [facility] Work Phone: SURGICAL PATHOLOGY [facility] Work Phone: Comment on above: Release Upon [...] plaque 1 Occurrences starting 09/22/2022 until 09/22/2023 [facility] Work Phone: Comment on above: 1 Occurrences starting 09/22/2022 until 09/22/2023 End: 05-31-2024 US ABD AORTA COMPLETE VAS LAB US ABD AORTA COMPLETE VA S LAB Vascular Lab Routine Infrarenal abdominal aortic aneurysm (AAA) without rupture (HCC) 1 Occurrences starting 05/31/2023 until 05/31/2024 [facility] Work Phone: Comment on above: 1 Occurrences starting 05/31/2023 until 05/31/2024 End: 10-03-2024 US Abdominal Aorta US ABD AORTA COMPLETE VAS LAB Vascular Lab Routine Infrarenal abdominal aortic aneurysm (AAA) without rupture (HCC) 1 Occurrences starting 10/04/2023 until 10/03/2024 [facility] Work Phone: Comment on above: 1 Occurrences starting 10/04/2023 until 10/03/2024 US Carotid arteries [facility] End: 10-03-2024 US Carotid arteries - bilateral US CAROTID ARTERIES BI L VAS LAB Vascular Lab Routine Bilateral carotid artery stenosis 1 Occurrences starting 10/04/2023 until 10/03/2024 [facility] Work Phone: Comment on above: 1 Occurrences [...] artery 1 Occurrences starting 09/22/2022 until 09/22/2023 [facility] Work Phone: Comment on above: 1 Occurrences starting 09/22/2022 until 09/22/2023 End: 05-31-2024 US CAROTID ARTERIES MELISSA VAS LAB US CAROTID ARTERIES BI L VAS LAB Vascular Lab Routine Bilateral carotid artery stenosis 1 Occurrences starting 05/31/2023 until 05/31/2024 [facility] Work Phone: Comment on above: 1 Occurrences starting 05/31/2023 until 05/31/2024 End: 04-21-2024 XR KNEE GENERAL 4V AP BOTH/PA BOTH/LAT/MERC BILATERAL XR KNEE GENERAL 4V AP BOTH/PA BOTH/LAT/MERC BILATERAL Radiology Routine Bilateral chronic knee pain 1 Occurrences starting 03/23/2023 until 04/21/2024 [facility] Work Phone: Comment on above: 1 Occurrences starting 03/23/2023 until 04/21/2024 XR KNEE GENERAL 4V A P BOTH/PA BOTH/LAT/MERC BILATERAL XR KNEE GENERAL 4V AP BOTH/PA BOTH/LAT/MERC BILATERAL Radiology Routine Bilateral chronic knee pain 03/23/2023 4:42 PM EDT [facility] Work Phone: End: 12-26-2025 XR Shoulder - left 3 Views XR SHOULDER GENERAL 3V OR MORE AP/TRUE AP/OTHER LEFT Radiology Routine Acute pain of both shoulders 1 Occurrences starting 11/26/2024 until 12/26/2025 [facility] Work Phone: Comment on above: 1 Occurrences starting 11/26/2024 until 12/26/2025 XR Shoulder - left 3 Views XR SH OULDER GENERAL 3V OR MORE AP/TRUE AP/OTHER LEFT Radiology Routine Acute pain of both shoulders 11/26/2024 3:50 PM EDT [facility] End: 12-26-2025 XR Shoulder - right 3 Views XR SHOULDER GENERAL 3V OR MORE AP/TRUE AP/OTHER RIGHT Radiology Routine Acute pain of both shoulders 1 Occurrences starting 11/26/2024 until 12/26/2025 [facility] Comment on above: 1 Occurrences starting 11/26/2024 until 12/26/2025 XR Shoulder - right 3 Views XR S HOULDER GENERAL 3V OR MORE AP/TRUE AP/OTHER RIGHT Radiology Routine Acute pain of both shoulders 11/26/2024 3:50 PM EDT [facility] End: 12-26-2025 XR Thoracic spine AP and Lateral and Swimmers XR THORACIC GENERAL 3V AP/LAT/SWIMMERS Radiology Routine Upper back pain 1 Occurrences starting 11/26/2024 until 12/26/2025 [facility] Comment on above: 1 Occurrences starting 11/26/2024 until 12/26/2025 XR Thoracic spine AP and Lateral and Swimmers XR THORACIC GENERAL 3V AP/LAT/SWIMMERS Radiology Routine Upper back pain 11/26/2024 3:50 PM EDT [facility] Immunizations Immunization Date Immunization Notes Care Provider Fa angelito 05-02-2023 tetanus toxoid, redu berta diphtheria toxoid, and acellular pertussis vaccine, adsorbed JESUS MIJARES MD [facility] 01-14-2023 zoster vaccine recombinant JESUS MIJARES MD [facility] 04-01-2022 influenza virus vacc ine, unspecified formulation Nurse Wstr Work Phone: [facility] 06-16-2021 influenza virus vacc ine, unspecified formulation JESUS MIJARES MD [facility] 06-16-2021 influenza, high-dose , quadrivalent vaccine (FLUZONE HIGH DOSE QUADRIVALENT) Samson Ragsdale DO Work Phone: [facility] Work Phone: 10-22-2020 COVID-19 vaccine, fu ll dose (MODERNA) Samson Ragsdale DO Work Phone: [facility] Work Phone: 09-24-2020 COVID-19 vaccine, fu ll dose (MODERNA) Samson Ragsdale DO Work Phone: [facility] Work Phone: Comment on above: Result Comment: 2022: [id number] 05-09-2020 influenza virus vacc ine, unspecified formulation JESUS MIJARES MD [facility] 05-09-2020 influenza, high dose seasonal, preservative-free Samson Ragsdale DO Work Phone: [facility] Work Phone: 08-27-2019 influenza virus vacc ine, unspecified formulation JESUS MIJARES MD [facility] 08-27-2019 influenza, high dose seasonal, preservative-free Samson Ragsdale DO Work Phone: [facility] Work Phone: 05-01-2018 influenza virus vacc ine, unspecified formulation JESUS MIJARES MD [facility] 05-01-2018 influenza, high dose seasonal, preservative-free Samson Ragsdale DO Work Phone: [facility] Work Phone: 05-18-2017 influenza virus vacc ine, unspecified formulation JESUS MIJARES MD [facility] 05-18-2017 influenza, high dose seasonal, preservative-free Samson Ragsdale DO Work Phone: [facility] Work Phone: 07-28-2016 influenza virus vacc ine, unspecified formulation JESUS MIJARES MD [facility] 07-28-2016 influenza, high dose seasonal, preservative-free Samson Ragsdale DO Work Phone: [facility] Work Phone: 05-01-[address] Samson Ragsdale DO Work Phone: [facility] 09-02-2015 pneumococcal conjuga te vaccine, 13 valent Samson Ragsdale DO Work Phone: [facility] Work Phone: 06-02-2015 influenza virus vacc ine, unspecified formulation JESUS MIJARES MD [facility] 06-02-2015 influenza, high dose seasonal, preservative-free Samson Ragsdale DO Work Phone: [facility] Work Phone: 06-02-2015 pneumococcal polysaccharide vaccine, 23 valent Samson Ragsdale DO Work Phone: [facility] Work Phone: 05-01-2015 pneumococcal conjuga te vaccine, [address] Davies Ragsdale DO Work Phone: [facility] 05-23-2014 influenza virus vacc ine, unspecified formulation JESUS MIJARES MD [facility] 05-23-2014 influenza, seasonal, injectable Samson Ragsdale DO Work Phone: [facility] 07-13-2013 influenza virus vacc ine, unspecified formulation Samson Ragsdale DO Work Phone: [facility] 07-31-2012 zoster vaccine, live Samson Ragsdale DO Work Phone: [facility] 05-26-2009 influenza virus vacc ine, unspecified formulation Samson Ragsdale DO Work Phone: [facility] Work Phone: 05-18-2008 influenza virus vacc ine, unspecified formulation Samson Ragsdale DO Work Phone: [facility] 01-27-2008 pneumococcal polysaccharide vaccine, 23 valent JESUS MIJARES MD [facility] Comment on above: Reason for Medicatio n: Other (see order comments) 06-20-2004 pneumococcal polysaccharide vaccine, 23 valent Samson Ragsdale DO Work Phone: [facility] Work Phone: 03-18-2004 adenovirus, type 4 a nd type 7, live, oral JESUS MIJARES MD [facility] 03-18-2004 hepatitis A vaccine, adult dosage JESUS MIJARES MD [facility] 03-18-2004 poliovirus vaccine, inactivated JESUS MIJARES MD [facility] 08-01-2001 diphtheria and tetan us toxoids, adsorbed for pediatric use Samson Ragsdale DO Work Phone: [facility] Work Phone: 07-03-1999 pneumococcal polysaccharide vaccine, 23 valent Samson Ragsdale DO Work Phone: [facility] Payers Date Payer Category Payer Self-pay [id number] 2025 Self-pay [id number] 2025 Self-pay 2023 Medicare [id number] 2016 Medicare MEDICARE MEDICAR E A AND B [id number] 2016-Present [phone] [address] [address] [place] [address] Medicare [id number] 2015 Private Health Insurance HUMANA HUMANA MEDICARE SUPPLEMENT [id number] 2015-Present [phone] [address] [address] [place] [address] Indemnity [id number] 2015 Private Health Insurance [id number] 2015 Private Health Insurance [id number] 2006 Medicare [id number] 2006 Medicare [id number] 1941 Unknown [id number]. 627 Unknown [id number] 2.16.840.1.631074.3.579.2. 462 Unknown [id number] 2.16.840.1.253214.3.579.2. 462 Unknown [id number] 2.16.840.1.728020.3.579.2. 462 Unknown [id number] 2.16.840.1.948859.3.579.2. 462 Unknown [id number] 2.16.840.1.991558.3.579.2. 462 Unknown [id number] 2.16.840.1.861115.3.579.2. 462 Unknown [id number] 2.16.840.1.762841.3.579.2. 462 Unknown [id number] 2.16.840.1.576526.3.579.2. 462 Unknown [id number] 2.16.840.1.796268.3.579.2. 462 Unknown [id number] 2.16.840.1.444294.3.579.2. 462 Unknown [id number] 2.16.840.1.971725.3.579.2. 462 Unknown [id number] 2.16.840.1.871891.3.579.2. 462 Unknown [id number] 2.16.840.1.343969.3.579.2. 462 Unknown [id number] 2.16.840.1.806380.3.579.2. 462 Unknown [id number]. 462 Social History Date Type Detail Facility Start: 07-28-2022 End: 04-02-2025 Tobacco smoking status NHIS Ex-smoker [facility] Comment on above: quit 1987 History of tobacco use Cigarette Smoker [facility] History of tobacco use Pipe Smoker [facility] History of tobacco use Cigar Smoker [facility] Start: 11-25-2021 End: 04-02-2025 Alcohol intake Current drinker of alcohol (finding) [facility] Start: 1940 Sex Assigned At Not on file C [facility] Start: 05-10-2020 End: 03-23-2022 Exposure to SARS-CoV-2 (event) Not sure [facility] Work Phone: History of tobacco use Current smoker [facility] Start: 07-28-2022 End: 03-23-2023 Cigarettes smoked current (pack per day) - Reported 2 [facility] Work Phone: Start: 07-28-2022 End: 04-02-2025 Tobacco use and exposure Smokeless tobacco non-user [facility] Start: 07-28-2022 Tobacco Comment quit in 1987 [facility] Start: 11-30-2022 End: 03-23-2023 Tobacco use panel [facility] Work Phone: Start: 07-02-2012 Adult Depression Screening Assessment 0 [facility] Work Phone: Sex Assigned At [facility] Start: 12-21-2016 Alcohol Alcohol [facility] Start: 12-21-2016 Lives Lives [facility] Start: 1940 Sex Assigned At Male W [facility] How often to you hav e a drink containing alcohol? Monthly or less [facility] How many standard drinks containing alcohol do you have on a typical day? 1 or 2 [facility] How often do you hav e 6 or more drinks on 1 occasion? Never [facility] Start: 03-18-2025 Education 13 [facility] Medical Equipment Procedure Code Equipment Code Equipment Original Text Equipment Identifier Dates [id number], [id number], [id number], [id number], [id number], [id number], [id number], [id number], [id number], [id number], [id number] Start: 06-27-2017 End: 10-25-2024 Comment on above: [...] 1 03/18/20 1:51 PM Manuela Morales MD [facility] 05-28-2023 Functional Status Ambulation in [facility] 05-28-2023 Functional Status Room check performed [facility] 05-28-2023 Functional Status [facility] 05-28-2023 Functional Status [facility] 05-27-2023 Functional Status [facility] 05-27-2023 Functional Status [facility] 05-27-2023 Functional Status [facility] 05-26-2023 Functional Status Patient refused [facility] 05-26-2023 Functional Status Nurse Milagros trotter q2hrs Performed 11am-11pm [facility] 05-26-2023 Functional Status [facility] 05-25-2023 Functional Status [facility] 05-24-2023 Functional Status Sensory Deficits None A [facility] 12-05-2014 Are you deaf, or do you have serious difficulty hearing No 12/05/2014 8:14 AM Stephanie Kern MA No [facility] 12-05-2014 Are you blind, or do you have serious difficulty seeing, even when wearing glasses No 12/05/2014 8:14 AM Stephanie Kern MA No [facility] 12-05-2014 Do you have serious difficulty walking or climbing stairs No 12/05/2014 8:14 AM Stephanie Kern MA No [facility] 12-05-2014 Do you have difficul ty dressing or bathing No 12/05/2014 8:14 AM Stephanie Kern MA No [facility] 12-05-2014 Because of a physica l, mental, or emotional condition, do you have difficulty doing errands alone such as visiting a physician's office or shopping No 12/05/2014 8:14 AM Stephanie Kern MA No [facility] Mental Status Date Assessment Result Facility 05-28-2023 Mental Status Orientation Oriented x 4 [facility] 05-28-2023 Mental Status [facility] 05-28-2023 Mental Status [facility] 05-27-2023 Mental Status Orientation Asse ssment Oriented x 4 [facility] 05-27-2023 Mental Status [facility] 05-26-2023 Mental Status [facility] 12-05-2014 Because of a physica l, mental, or emotional condition, do you have serious difficulty concentrating, remembering, or making decisions No 12/05/2014 8:14 AM EDT Stephanie Hayes, ROSS No [facility] Clinical Notes 08-28-2019 to 05-09-2025 Samson Ragsdale, DO - 04/09/2025 7:40 AM Jordi Woods RT(Yousif) - 04/05/2025 1:40 PM EDTPatient InstructionsPatient InstructionsManuela Lacy MD - 03/18/2025 2:00 PM EDT Note Date & Type Note Facility 05-09-2025 Note HNO ID: [id number] Author: CONY CHENG APRN.WATER ATTENDANT Service: ? Author Type: Nurse Practitioner Type: [...] has an upcoming appointment with Dr. Hoyt's BOARDING HOUSE COOK next month. Myasthenia Gravis: - Currently managed [...] been added by a Eli Lauren in [facility] 2023 but unable to find connection. 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 Last EKG for cc May 2024 doesn't mention this. Sees cardiology at [facility], last seen to reestablish care 01/15. Has [...] Xience stent to L circumflex EGD 04/26/[address] [facility] [address] Nolan Triana EGD 05/23/2024 EGD TRANSORAL BIOPSY SINGLE/MULTIPLE 07/10/2007 PAST SURGICAL HISTORY OF 01/26/2008 stent placement ramus and prox ramus PAST SURGICAL HISTORY OF heart stents PROSTATECTOMY PERINEAL RADICAL 2000 Prostatectomy, radical- Dr. 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 Yousif Triana; next screening colonoscopy in 10yrs, [facility] UNLISTED DIAGNOSTIC GASTROENTEROLOGY PROCEDURE 06/06/2018 ALLERGIES Atorvastatin, Crestor [Rosuvastatin Calcium], Glucosamine, Motrin [Ibuprofen], Pravastatin, and Eewsung-Ihs-Imv Reductase Inhibitors MEDICATIONS Current Outpatient Medications Medication [...] mg once daily (more content not included)... [facility] 04-15-2025 Note HNO ID: [id number] Author: MANUELA LACY MD Service: ? Author [...] reassess symptoms and medication tolerance. Recording using Invoca software for draft documentation of the visit was discussed with the patient/authorized patient account representative; all questions welcomed and answered. 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 He expresses concern about maintaining finger dexterity [...] 5 Ankle Noe (more content not included)... [facility] 04-09-2025 Note HNO ID: [id number] Author: SAMSON RAGSDALE, DO Service: ? Author [...] Xience stent to L circumflex EGD 04/26/[address] [facility] [address] Nolan Triana EGD 05/23/2024 EGD TRANSORAL BIOPSY SINGLE/MULTIPLE 07/10/2007 PAST SURGICAL HISTORY OF 01/26/2008 stent placement ramus and prox ramus PAST SURGICAL HISTORY OF heart stents PROSTATECTOMY PERINEAL RADICAL 2000 Prostatectomy, radical- Dr. 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 Yousif Triana; next screening colonoscopy in 10yrs, [facility] UNLISTED DIAGNOSTIC GASTROENTEROLOGY PROCEDURE 06/06/2018 SOCIAL HISTORY[1] FAMILY HISTORY Problem Relation Age of Onset Heart Mother Hypertension Father COPD Father Ischemic Heart Disease Son Ischemic Heart Disease Son Allergies: ALLERGIES Allergen Reactions Atorvastatin Unknown Crestor [Rosuvastat* Other: See Comments Muscle pain Glucosamine Unknown Nerve pain Motrin [Ibuprofen] Rash Pravastatin Other: See Comments muscle aches Xjjhjvt-Wkt-Izt Red* Other: See Comments myalgia Curr (more content not included)... [facility] 04-09-2025 History of Present illness Narrative Patient [...] Xience stent to L circumflex EGD 04/26/[address] [facility] [address] Nolan Triana EGD 05/23/2024 EGD TRANSORAL BIOPSY SINGLE/MULTIPLE 07/10/2007 PAST SURGICAL HISTORY OF 01/26/2008 stent placement ramus and prox ramus PAST SURGICAL HISTORY OF heart stents PROSTATECTOMY PERINEAL RADICAL 2000 Prostatectomy, radical- Dr. 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 R Cebul; next screening colonoscopy in 10yrs, [facility] UNLISTED DIAGNOSTIC GASTROENTEROLOGY PROCEDURE 06/06/2018 SOCIAL HISTORY[1] FAMILY HISTORY Problem Relation Age of Onset Heart Mother Hypertension Father COPD Father Ischemic Heart Disease Son Ischemic Heart Disease Son Allergies: ALLERGIES Allergen Reactions Atorvastatin Unknown Crestor [Rosuvastat* Other: See Comments Muscle pain Glucosamine Unknown Nerve pain Motrin [Ibuprofen] Rash Pravastatin Other: See Comments muscle aches Yaodrhe-Uuk-Act Red* Other: See Comments myalgia Current Meds: pyridostigmine (MESTINON) 60 mg tablet Take 60 mg by mouth three times a day. predniSONE (DELTASONE) 10 mg tablet Take 3 tablets by mouth once daily. pyridostigmine (MESTINON) 60 mg tablet Take a half tablet three times a day with food. Please cut pills for patient prior to supervisor opening and picking. cyanocobalamin (B-12 DOTS) 500 mcg tablet Take [...] 10 Units subcutaneously daily at bedtime. 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 Samson Ragsdale DO [address] [place] [address] [1] Social History Tobacco Use Smoking status: Former Current packs/day: 2.00 Average packs/day: 2.0 packs/day for 20.0 years (40.0 ttl pk-yrs) Types: Cigarettes, Pipe, Cigars Smokeless tobacco: Never Tobacco comments: quit in 1987 Vaping Use Vaping status: Never Used Substance Use Topics Alcohol use: Yes Alcohol/week: 0.0 - 1.0 standard drinks of alcohol Comment: rarely Drug use: No documented in this encounter [facility] 04-05-2025 History of Present illness Narrative Radiology [...] PATIENT PRESENTS WITH AN IMPLANTABLE OR ATTACHED FIBERGLASS CONTAINER WINDING OPERATOR: No RADIOLOGY DEPARTMENT: CT; Exam(s) Completed: Chest. Anesthesia: No PERIPHERAL IV DATA: Not applicable SIGNED BY: RT Liz(R) April 05, 2025 1:48 PM documented in this encounter [facility] 04-05-2025 Note HNO ID: [id number] Author: JORDI MAGALLON RT(R) Service: Radiology Author [...] PATIENT PRESENTS WITH AN IMPLANTABLE OR ATTACHED FIBERGLASS CONTAINER WINDING OPERATOR: No RADIOLOGY DEPARTMENT: CT; Exam(s) Completed: Chest. Anesthesia: No PERIPHERAL IV DATA: Not applicable SIGNED BY: RT Liz(R) April 05, 2025 1:48 PM [facility] 04-02-2025 Instructions Samson Ragsdale DO - 04/02/2025 4:03 PM EDT Prune juice 4-8 oz a day Apple cider vinegar + lemon juice + warm water daily If this isn't helping your bowels then need to be taking 1/2 -1 capful of Miralax daily in water in the morning documented in this encounter [facility] 03-18-2025 Instructions Manuela Lacy MD - 03/18/2025 [...] MG. Avoid use. documented in this encounter [facility] 03-18-2025 History of Present illness Narrative Referring Physician: Jud Maguire [address] [facility] [address] Consultation requested by Jud Maguire PA-C for an opinion regarding myasthenia gravis. My final recommendations will be communicated back to the requesting physician by way of shared Medical record or letter to requesting physician via fax or [place] mail. Recording using Invoca software for draft documentation of the visit was discussed with the patient/authorized patient account representative; all questions welcomed and answered. Patient/authorized patient account representative agreed to proceed CC: myasthenia gravis [...] interferes with his ability to play the teextee guitar. He also notes ptosis, which was first observed by Lala Godinez PA-C, at the [facility] in early January. He reports generalized muscle [...] family doctor, Dr. Samson Ragsdale, at the [facility]. He also reports chronic constipation and excessive [...] without mention of hemorrhage 04/26/2017 EGD by [facility] Advance care planning 03/24/2022 [facility] can help [...] Xience stent to L circumflex EGD 04/26/[address] [facility] [address] Nolan Triana EGD 05/23/2024 EGD TRANSORAL BIOPSY SINGLE/MULTIPLE 07/10/2007 PAST SURGICAL HISTORY OF 01/26/2008 stent placement ramus and prox ramus PAST SURGICAL HISTORY OF heart stents PROSTATECTOMY PERINEAL RADICAL 2000 Prostatectomy, radical- Dr. 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 Yousif Triana; next screening colonoscopy in 10yrs, [facility] UNLISTED DIAGNOSTIC GASTROENTEROLOGY PROCEDURE 06/06/2018 FAMILY [...] responsive, language intact CN: pupils 2mm and BOARDING HOUSE COOK B, L eye with incomplete abduction, diplopia [...] Drug use: No documented in this encounter [facility] 03-18-2025 Note HNO ID: [id number] Author: MANUELA LACY MD Service: ? Author Type: Physician Type: Progress Notes Filed: 03/19/2025 11:35 Note Text: Referring Physician: Jud Maguire [address] [facility] [address] Consultation requested by Jud Maguire PA-C for an opinion regarding myasthenia gravis. My final recommendations will be communicated back to the requesting physician by way of shared Medical record or letter to requesting physician via fax or US mail. Recording using Invoca software for draft documentation of the visit was discussed with the patient/authorized patient account representative; all questions welcomed and answered. Patient/authorized patient account representative agreed to proceed CC: myasthenia gravis [...] observed by Lala Godinez PA-C, at the [facility] in early January. He reports generalized muscle [...] family doctor, Dr. Samson Ragsdale, at the [facility]. He also reports chronic constipation and excessive [...] without mention of hemorrhage 04/26/2017 EGD by [facility] Advance care planning 03/24/2022 Adi (more content not included)... [facility] 03-06-2025 Procedure note [facility] 03-04-2025 Telephone encounter Note Despite seeing [...] especially d/t weight loss. Yu Ruvalcaba LPN [facility] 03-04-2025 Miscellaneous Notes Despite seeing that patient [...] Samson Ragsdale DO Patient stopped at front office director today wanting to talk with Dr. Ragsdale's [...] I let him know that it was [facility] that prescribed this prescription. Please advise documented in this encounter [facility] 03-04-2025 Telephone encounter Note Pt called and is notified of providers message and instructions. Pt voices understanding. Jose Noel RN [facility] 03-04-2025 Telephone encounter Note Please let him know that this medication is safe for his renal function/kidneys to be taking per specialist recommendations Samson L Ragsdale, DO [facility] 03-01-2025 Telephone encounter Note Patient stopped at front office director today wanting to talk with Dr. Ragsdale's [...] might be less harsh on his kidneys. [facility] 02-28-2025 Telephone encounter Note Patient in and got scheduled at [facility] today-he will have his son drive him. Yu Ruvalcaba LPN [facility] 02-28-2025 Miscellaneous Notes Patient in and got scheduled at [facility] today-he will have his son drive him. Yu Ruvalcaba LPN Should be able to see other neuromuscular specialists not at [facility] with this referral. Dr. Gomez is in [place], Dr. James is at [facility] and [place]. I believe the medication was sent to [facility] in [place]. Jud Maguire PA-C Pt given message below from Maylin ALCALA. 1) Pt agreeable to see a neuromuscular specialist but will only travel as far as [place]. He states he will not go to [facility]. Referral states [facility], which may be at [facility]. Asking if Jud knows where this center is? Solder Making Supervisor had some difficulty attempting to schedule this. Pt states if it is at [facility], then he will not go. 2) Pt agreeable to trying the mestinon medication 3 times daily. Asking this to be sent to [facility]. Pt would like a call once this has been sent to pharmacy, cell only: [phone]. Lorraine Saravia RN Message left for patient [...] Jud Maguire PA-C documented in this encounter [facility] 02-28-2025 Telephone encounter Note Did request electronic PA and route to neuro pool. [facility] 02-28-2025 Telephone encounter Note Pt came in to ask about if the Mestinon medication would be too hard on his kidney's ? I let him know that it was [facility] that prescribed this prescription. Please advise [facility] 02-27-2025 Telephone encounter Note Should be able to see other neuromuscular specialists not at [facility] with this referral. Dr. Gomez is in [place], Dr. aJmes is at [facility] and [place]. I believe the medication was sent to [facility] in [place]. Jud Maguire PA-C [facility] 02-27-2025 Telephone encounter Note Pt given message below from Maylin ALCALA. 1) Pt agreeable to see a neuromuscular specialist but will only travel as far as [place]. He states he will not go to [facility]. Referral states [facility], which may be at [facility]. Asking if Jud knows where this center is? Solder Making Supervisor had some difficulty attempting to schedule this. Pt states if it is at [facility], then he will not go. 2) Pt agreeable to trying the mestinon medication 3 times daily. Asking this to be sent to [facility]. Pt would like a call once this has been sent to pharmacy, cell only: [phone]. Lorraine Saravia RN [facility] 02-27-2025 Telephone encounter Note Message left for patient to return call to review results. Yu Ruvalcaba LPN T [facility] 02-27-2025 Telephone encounter Note Patient's labs are [...] can adjust as needed. Jud Maguire PA-C [facility] 02-25-2025 Telephone encounter Note Pt. informed will supervisor opening and picking on the 2nd floor. [facility] 02-25-2025 Miscellaneous Notes Pt. informed will supervisor opening and picking on the 2nd floor. Letter made. Just needs printed from [employer]. Pending in Communications or Letters tap. Thank you, Desirae Irving APRN.WATER ATTENDANT Patient came into today requesting a letter for a new Handicap sticker. Please advise. documented in this encounter [facility] 02-21-2025 Telephone encounter Note Letter made. Just needs printed from [employer]. Pending in Communications or Letters tap. Thank you, Desirae Irving APRN.WATER ATTENDANT [facility] Work Phone: 02-20-2025 Instructions Jud Maguire PA-C - 02/20/2025 3:26 PM EDT Continue with seeing your eye doctor and consult to vascular surgery Laboratory studies Follow up as needed documented in this encounter [facility] 02-20-2025 Note HNO ID: [id number] Author: YU RUVALCABA LPN Service: ? Author Type: LICENSED NURSE Type: Progress Notes Filed: 02/20/2025 16:36 Note Text: [facility] 02-20-2025 History of Present illness Narrative Images from the original note were not included. 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 Nolan Triana EGD 05/23/2024 EGD TRANSORAL BIOPSY SINGLE/MULTIPLE 07/10/2007 PAST SURGICAL HISTORY OF 01/26/2008 stent placement ramus and prox ramus PAST SURGICAL HISTORY OF heart stents PROSTATECTOMY PERINEAL RADICAL 2000 Prostatectomy, radical- Dr. 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 Yousif Triana; next screening colonoscopy in 10yrs, [facility] UNLISTED DIAGNOSTIC GASTROENTEROLOGY PROCEDURE 06/06/2018 SOCIAL [...] was symmetric with no fasciculations. Power: Decreased store keeper strength bilaterally Right Left Shoulder Abduction: 5 [...] present ... This note was dictated using [employer] speech recognition software and may contain some [...] which included preparing to see the patient, bvjl-dq-rdzj patient care, completing clinical documentation, obtaining and/or reviewing separately obtained history, performing a medically appropriate examination, counseling and educating the patient/family/caregiver, and ordering medications, tests, or procedures. This document has been created with the use of voice recognition technology. It may contain inaccuracies: (e.g. misspellings, inaccurate syntax or word sense) that have escaped review. documented in this encounter [facility] 02-20-2025 Note HNO ID: [id number] Author: JUD MAGUIRE PA-C Service: ? Author Type: Physician Semi Conductor Assembler Type: Progress Notes Filed: 02/20/2025 16:36 Note Text: [facility] Name: Alejo Gage [...] Hernia Pure Hypercholester (more content not included)... [facility] 02-20-2025 Telephone encounter Note Patient came into today requesting a letter for a new Handicap sticker. Please advise. [facility] 02-05-2025 Telephone encounter Note Call to pt [...] to Neuro and close. Leela Aguilar MA [facility] 02-05-2025 Miscellaneous Notes Call to pt and [...] up with neurology. documented in this encounter [facility] 01-31-2025 Telephone encounter Note Message left for pt to call back for results. Marina Connor MA [facility] 01-31-2025 Telephone encounter Note Please let patient know his MRI does not show a stroke but it does show microvascular disease. I recommend follow up with neurology. [facility] 01-31-2025 History of Present illness Narrative Radiology [...] PATIENT PRESENTS WITH AN IMPLANTABLE OR ATTACHED FIBERGLASS CONTAINER WINDING OPERATOR: No RADIOLOGY DEPARTMENT: MR; Exam(s) Completed: Head: Routine Brain. Aromatherapy Administered: No PERIPHERAL IV DATA: Not applicable SIGNED BY: Eugenia Cardona RT(R) January 31, 2025 12:22 PM documented in this encounter [facility] 01-31-2025 Note HNO ID: [id number] Author: EUGENIA CARDONA RT(R) Service: ? Author [...] PATIENT PRESENTS WITH AN IMPLANTABLE OR ATTACHED FIBERGLASS CONTAINER WINDING OPERATOR: No RADIOLOGY DEPARTMENT: MR; Exam(s) Completed: Head: Routine Brain. Aromatherapy Administered: No PERIPHERAL IV DATA: Not applicable SIGNED BY: RT Jose(R) January 31, 2025 12:22 PM [facility] 01-30-2025 Instructions Lala Godinez APRN.WATER ATTENDANT - 01/30/2025 1:[address] Arzate Vascular Surgeon- documented in this encounter [facility] 01-30-2025 Note HNO ID: [id number] Author: LALA GODINEZ APRN.WATER ATTENDANT Service: ? Author Type: Nurse Practitioner Type: [...] Has Cookie swallow ordered and scheduled at [facility]. Reports carotid US shows 50-70% blockage on [...] Xience stent to L circumflex EGD 04/26/[address] [facility] [address] Nolan Triana EGD 05/23/2024 EGD TRANSORAL BIOPSY SINGLE/MULTIPLE 07/10/2007 PAST SURGICAL HISTORY OF 01/26/2008 stent placement ramus and prox ramus PAST SURGICAL HISTORY OF heart stents PROSTATECTOMY PERINEAL RADICAL 1999 Prostatectomy, radical- Dr. 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 Yousif Triana; next screening colonoscopy in 10yrs, [facility] UNLISTED DIAGNOSTIC GASTROENTEROLOGY PROCEDURE 06/06/2018 Family History FAMILY HISTORY Problem Relation Age of Onset Hypertension Father COPD Father Heart Mother Patient Allergies ALLERGIES Allergen Reactions Atorvastatin Unknown Crestor [Rosuvastat* Other: See Comments Muscle pain Glucosamine Unknown Nerve pain Motrin [Ibuprofen] Rash Pravastatin Other: See Comments muscle aches Vdrcitj-Vxa-Dpd Red* Other: See Comments myalgia Current Medications [...] 10 Units subcutaneously daily at bedtime. Insulin Brighton, Disposable, (BD ULTRA-FINE BENNY PEN NEEDLE) 32 [...] LITE METER) m (more content not included)... [facility] 01-30-2025 History of Present illness Narrative Chief Complaint Patient presents with: Follow Up HPI Alejo Gage is a 84 year old male who presents here today for Above Complaints. Patient presents for follow up. Patient reports he continues to have swallowing difficulty and vision abnormalities. Swallowing has slightly improved but vision has worsened slightly. Has Cookie swallow ordered and scheduled at [facility]. Reports carotid US shows 50-70% blockage on [...] Xience stent to L circumflex EGD 04/26/[address] [facility] [address] Nolan Triana EGD 05/23/2024 EGD TRANSORAL BIOPSY SINGLE/MULTIPLE 07/10/2007 PAST SURGICAL HISTORY OF 01/26/2008 stent placement ramus and prox ramus PAST SURGICAL HISTORY OF heart stents PROSTATECTOMY PERINEAL RADICAL 2000 Prostatectomy, radical- Dr. 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 Yousif Triana; next screening colonoscopy in 10yrs, [facility] UNLISTED DIAGNOSTIC GASTROENTEROLOGY PROCEDURE 06/06/2018 Family History FAMILY HISTORY Problem Relation Age of Onset Hypertension Father COPD Father Heart Mother Patient Allergies ALLERGIES Allergen Reactions Atorvastatin Unknown Crestor [Rosuvastat* Other: See Comments Muscle pain Glucosamine Unknown Nerve pain Motrin [Ibuprofen] Rash Pravastatin Other: See Comments muscle aches Carsgol-Xna-Jnm Red* Other: See Comments myalgia Current Medications [...] 10 Units subcutaneously daily at bedtime. Insulin Brighton, Disposable, (BD ULTRA-FINE BENNY PEN NEEDLE) 32 [...] Sensation grossly intact., Left eyelid droop noted. [facility] Maintenance List Medicare Annual Wellness Visit [...] SURGERY - Will obtain carotid US from [facility] for patient file. Lala Godinez APRN.WATER ATTENDANT documented in this encounter [facility] 01-29-2025 Telephone encounter Note Pt was scheduled [...] and to discuss further testing if needed. [facility] 01-29-2025 Miscellaneous Notes Pt was scheduled for [...] well. Please advise documented in this encounter [facility] 01-29-2025 Telephone encounter Note Nurse triage appt scheduled. Pt is scheduled with Maylin Cheng on 01/31/25. [facility] 01-29-2025 Telephone encounter Note Patient came in concerned about a possible stroke. He saw Jony Godinez on 01/17/2025 she ordered a stat brain CT. Patient states that when spoke with Dr. Mcduffie that he told him that the CT would not show anything. Still experiencing blurred vision, trouble swallowing as well. Please advise [facility] 01-18-2025 Radiology Diagnostic study note [facility] Imaging Services [address] [place] [address] Brain/Head without Contrast MR#: [id number] Acct: [id number] Name: ALEJO GAGE Rep #: [id number] : 1940 M 84 From: Lu Steven MD PCP: Dr. Samson Ragsdale DO Status: RE G CLI Study:Brain/Head without Contrast Date of Exa m: 01/18/25 Exam# [id number] Ordering Dr: [place] Godinez NP-[place] PROCEDURE: BRAIN/HEAD [...] evidence for acute brain abnormality. Reading Location: [place] [address] CC: BOARDING HOUSE COOK-C Lala Godinez; Dr. Samson Ragsdale DO ~ Dissolver Operator: Signed [facility] 01-17-2025 Note HNO ID: [id number] Author: LALA GODINEZ APRN.WATER ATTENDANT Service: ? Author Type: Nurse Practitioner Type: Progress Notes Filed: 01/17/2025 12:10 Note Text: Chief Complaint Patient presents with: ER F/U HPI Alejo Gage is a 84 year old male who presents here today for Above Complaints. Orthopnea and Dyspnea: - Orthopnea and increasing dyspnea over the past 7-10 days. - Seen in [facility] ER on 01/14; BNP, troponins, and chest X-ray were normal. - Seen by cardiology at [facility] on 01/15; isosorbide increased to 60 mg [...] without mention of hemorrhage 04/26/2017 EGD by [facility] Advance care planning 03/24/2022 [facility] can help [...] Xience stent to L circumflex EGD 04/26/[address] [facility] [address] Nolan Triana EGD 05/23/2024 EGD TRANSORAL BIOPSY SINGLE/MULTIPLE 07/10/2007 PAST SURGICAL HISTORY OF 01/26/2008 stent placement ramus and prox ramus PAST SURGICAL HISTORY OF heart stents PROSTATECTOMY PERINEAL RADICAL 2000 Prostatectomy, radical- Dr. 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 Yousif Triana; next screening colonoscopy in 10yrs, [facility] UNLISTED DIAGNOSTIC GASTROENTEROLOGY PROCEDURE 06/06/2018 Family History FAMILY HISTORY Problem Relation Age of Onset Hypertension Father COPD Father Heart Mother Patient Allergies ALLERGIES Allergen Reactions Atorvastatin Unknown Crestor [Rosuvastat* Other: See Comments Muscle pain Glucosamine Unknown Nerve pain Motrin [Ibuprofen] Rash Pravastatin Other: See Comments muscle aches Dooclxh-Pnw-Dsu Red* Other: See Comments myalgia Current Medications [...] 10 Units subcutaneously daily at bedtime. Insulin Brighton, Disposable, (BD ULTRA-FINE N (more content not included)... [facility] 01-17-2025 History of Present illness Narrative Chief Complaint Patient presents with: ER F/U HPI Alejo Gage is a 84 year old male who presents here today for Above Complaints. Orthopnea and Dyspnea: - Orthopnea and increasing dyspnea over the past 7-10 days. - Seen in [facility] ER on 01/14; BNP, troponins, and chest X-ray were normal. - Seen by cardiology at [facility] on 01/15; isosorbide increased to 60 mg [...] Xience stent to L circumflex EGD 04/26/[address] [facility] [address] Nolan Triana EGD 05/23/2024 EGD TRANSORAL BIOPSY SINGLE/MULTIPLE 07/10/2007 PAST SURGICAL HISTORY OF 01/26/2008 stent placement ramus and prox ramus PAST SURGICAL HISTORY OF heart stents PROSTATECTOMY PERINEAL RADICAL 1999 Prostatectomy, radical- Dr. 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 Yousif Triana; next screening colonoscopy in 10yrs, [facility] UNLISTED DIAGNOSTIC GASTROENTEROLOGY PROCEDURE 06/06/2018 Family History FAMILY HISTORY Problem Relation Age of Onset Hypertension Father COPD Father Heart Mother Patient Allergies ALLERGIES Allergen Reactions Atorvastatin Unknown Crestor [Rosuvastat* Other: See Comments Muscle pain Glucosamine Unknown Nerve pain Motrin [Ibuprofen] Rash Pravastatin Other: See Comments muscle aches Aqhcybv-Vkl-Ozy Red* Other: See Comments myalgia Current Medications [...] 10 Units subcutaneously daily at bedtime. Insulin Brighton, Disposable, (BD ULTRA-FINE BENNY PEN NEEDLE) 32 [...] without murmur, gallop, or rubs. No ectopy. [facility] Maintenance List Medicare Annual Wellness Visit [...] BLISTR POWDR FOR INHALATION 2. 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 - ICD9: 414.01, [...] R13.10 - CT BRAIN WO IVCON, Called [facility] and patient scheduled 01/[address] since he has other evaluations being completed tomorrow at [facility]. 6. Vision changes - ICD9: 368.9, ICD10: H53.9= - CT BRAIN WO IVCON. Called [facility] and patient scheduled 01/18 at [address] since he has other evaluations being completed tomorrow at [facility]. I spent 55 minutes in the visit, with more than 50% of the total jqvz-ex-zcwq time of the visit in counseling / coordination of care. Lala Godinez APRN.WATER ATTENDANT documented in this encounter [facility] 01-15-2025 Evaluation note Diagnosis Onset Date Resolution [...] 1:22pm Hypertension chronic January 15 025 1:22pm [facility] Work Phone: 1(568) 191-111506-17-2025 Evaluation note* Diagnosis Onset Date Resolution Status [...] mellitus inactiv e January 15, 2025 1:22pm [facility] Work Phone: 1(420) 773-597106-17-2025 Evaluation note* Diagnosis Onset Date Resolution Status [...] mellitus inactiv e February 21, 2025 11:13am [facility] Work Phone: 1(850) 132-531206-17-2025 Evaluation note* Diagnosis Onset Date Resolution Status [...] 11:13am Hypertension chronic February 21, 025 11:13am [facility] Work Phone: 1(725) 701-628906-17-2025 Progress [facility] [address] [place], [place] [id number] OFFICE VISIT Date of Service: 01/15/25 MR#: [id number] Acct: [id number] Name: SANTOSHCUATEALJEO Jordan Rep #: [id number] : 1940 Provider: Dr. Atif Montano MD Age/Sex: 84/M Location: [facility] Status: Signed HPI HPI History of Present Illness Details: This gentleman has past medical history significant for coronary artery disease status post CABG with CASTILLO to the LAD, history of myocardial infarctions status post DAVID to the left circumflex and to the right coronary artery, hypertension and dyslipidemia. He has not been seen in our office since 2020. [facility] Per patient, for the last couple [...] air Intake Visit Reasons: Shortness of breath Orchestra Director Required: No Accompanied by: Is patient in pain?: No Allergies ibuprofen Allergy (Unknown, Unverified 01/15/25 13:36) NEEDS FOLLOW-UP pravastatin Allergy (Unknown, Verified 01/15/25 13:36) NEEDS FOLLOW-UP atorvastatin (From Lipitor) Allergy (Verified 01/15/25 13:36) Unknown glucosamine Allergy (Verified 01/15/25 13:36) Unknown rosuvastatin Adverse Reaction (Unknown, Verified 01/15/25 13:36) NEEDS FOLLOW-UP Vfupeik-WUR-ThP Reductase Inhibitor Adverse Reaction (Unknown, Verified 01/15/2513:36) [...] year?: Yes (single episode; no major injury) [facility] Medical History Abdominal aneurysm without mention of rupture Abdominal aortic aneurysm without rupture Acute gastritis without mention of hemorrhage Acute myocardial infarction Atherosclerosis of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kaw heart without angina pectoris Carotid artery stenosis [...] cancer PVD (peripheral vascular disease) ST elevation MO (STEMI) Unspecified constipation Unspecified hypertensive heart disease [...] of the LAD and Distal RCA 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 Samson Ragsdale, DO ~ [facility]06-17-2025 Progress note Author Srini Montano [facility] Note Date/Time January 15, 2025 2:[address] [facility] [address] [place] [address]. [address] [place] [address] OFFICE VISIT Date of Service: 01/15/25 MR#: [id number] Acct: [id number] Name: ALEJO GAGE Rep #: [id number] : 1940 Provider: Dr. Atif Montano MD Age/Sex: 84/M Location: [facility] Status: Signed HPI HPI History of Present Illness Details: This gentleman has past medical history significant for coronary artery disease status post CABG with CASTILLO to the LAD, history of myocardial infarctions status post DAVID to the left circumflex and to the right coronary artery, hypertension and dyslipidemia. He has not been seen in our office since 2020. [facility]. Per patient, for the last couple [...] air Intake Visit Reasons: Shortness of breath Orchestra Director Required: No Accompanied by: Is patient in pain?: No Allergies ibuprofen Allergy (Unknown, Unverified 01/15/25 13:36) NEEDS FOLLOW-UP pravastatin Allergy (Unknown, Verified 01/15/25 13:36) NEEDS FOLLOW-UP atorvastatin (From Lipitor) Allergy (Verified 01/15/25 13:36) Unknown glucosamine Allergy (Verified 01/15/25 13:36) Unknown rosuvastatin Adverse Reaction (Unknown, Verified 01/15/25 13:36) NEEDS FOLLOW-UP Aggbmwt-LPC-XrF Reductase Inhibitor Adverse Reaction (Unknown, Verified 01/15/2513:36) [...] year?: Yes (single episode; no major injury) [facility] Medical History Abdominal aneurysm without mention of rupture Abdominal aortic aneurysm without rupture Acute gastritis without mention of hemorrhage Acute myocardial infarction Atherosclerosis of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kaw heart without angina pectoris Carotid artery stenosis [...] cancer PVD (peripheral vascular disease) ST elevation MO (STEMI) Unspecified constipation Unspecified hypertensive heart disease [...] of the LAD and Distal RCA 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 Samson Ragsdale DO ~ [facility] Work Phone: 1(708) 443-698406-16-2025 Discharge summary [facility] Medical Records Department [address] [place] [address] Emergency Department Summary 01/13/25 MR#: [id number] Acct: [id number] Name: ALEJO GAGE Rep #:[id number] : 1940 84 From: Adam Mon [...] None Narrative Narrative: 84-year-old male history of MO, hypertension, diabetes, ischemic cardiomyopathy and prior prostate [...] vascular disease) Atherosclerosis of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kaw heart without angina pectoris Complete heart block ST elevation MO (STEMI) Chronic kidney disease, stage 3 Hyperlipidemia [...] He has an appointment to see his first press operator on Tuesday. They are comfortable with him [...] (Auto) 70.0 Lymph % (Auto) 18.6 L Davidson % (Auto) 8.2 Eos % (Auto) 2.5 [...] pneumothorax. Left base subsegmental atelectasis. Reading Location: [facility] Chest x-ray, 2 views, interpreted by [...] rate of 61 no acute signs of MO or ischemia. Discharge Plan Triage Chief Complaint: [...] your shortness of breath. Follow-up with your 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 Print Language: Uzbek Disposition Disposition: Home, Self Care What to do if you have Problems For any increased pain, shortness of breath, bleeding, nausea or vomiting, chestpain, or any unexpected problems, contact your Primary Care Provider. Call [facility] ([phone]) or report tothe closest Emergency Room. Call 911 if necessary. 01/14/25 0207 Cosigner Signature (if applicable): CC: Dr. Samson Ragsdale DO ~ Signed [facility]06-16-2025 Radiology Diagnostic study note [facility] Imaging Services [address] [place], [place] [address] Chest PA and Lateral MR#: [id number] Acct: [id number] Name: ALEJO GAGE Rep #: [id number] : 1940 M 84 From: Le Rowell MD PCP: Dr. Samson Ragsdale DO Status: RE G ER Study:Chest PA and Lateral Date of Exam: 01/13/25 Exam# [id number] Ordering Dr: Eliazar Mon MD PROCEDURE: CHEST PA AND LATERAL 01/13/2025 REASON FOR EXAM: CHEST PAIN TECHNIQUE: CHEST PA AND LATERAL COMPARISON: none FINDINGS: Median sternotomy wires. Aortic arch calcification. Left base subsegmental atelectasis. No focal consolidations. No pleural effusion or pneumothorax. RAD/Chest PA and Lateral IMPRESSION: No focal consolidations. No pleural effusion or pneumothorax. Left base subsegmental atelectasis. Reading Location: [id number] CC: Dr. Adam Mon MD; Dr. Samson Ragsdale DO ~ Dissolver Operator: Signed [facility]06-15-2025 Discharge summary Author Adam Mon [facility] Note Date/Time January 14, 2025 2:07 am [facility] Medical Records Department [address] [place] [address] Emergency Department Summary 01/13/25 MR#: [id number] Acct: [id number] Name: ALEJO GAGE Rep #:[id number] : 1940 84 From: Adam Mon [...] None Narrative Narrative: 84-year-old male history of MO, hypertension, diabetes, ischemic cardiomyopathy and prior prostate [...] vascular disease) Atherosclerosis of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kaw heart without angina pectoris Complete heart block ST elevation MO (STEMI) Chronic kidney disease, stage 3 Hyperlipidemia [...] He has an appointment to see his first press operator on Tuesday. They are comfortable with him [...] (Auto) 70.0 Lymph % (Auto) 18.6 L Davidson % (Auto) 8.2 Eos % (Auto) 2.5 [...] pneumothorax. Left base subsegmental atelectasis. Reading Location: [facility] Chest x-ray, 2 views, interpreted by [...] rate of 61 no acute signs of MO or ischemia. Discharge Plan Triage Chief Complaint: [...] your shortness of breath. Follow-up with your 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 Print Language: Uzbek Disposition Disposition: Home, Self Care What to do if you have Problems For any increased pain, shortness of breath, bleeding, nausea or vomiting, chestpain, or any unexpected problems, contact your Primary Care Provider. Call [facility] ([phone]) or report to the closest Emergency Room. Call 911 if necessary. 01/14/25 0207 <Electronically signed by Adam Mon MD> Cosigner Signature (if applicable): CC: Dr. Samson Ragsdale DO ~ Signed [facility] Work Phone: 1(396) 900-231806-11-2025 NoteHNO ID: [id number] Author: KHLOE IBARRA APRN.WATER ATTENDANT Service: ? Author Type: Nurse Practitioner Type: Progress Notes Filed: 01/09/2025 16:53 Note Text: [facility] Subjective Alejo Gage is a [...] history started taking lasix this morning from 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 Mild lower leg swelling but denies that [...] without mention of hemorrhage 04/26/2017 EGD by Planit[facility] Advance care planning 03/24/2022 [facility] can help [...] Xience stent to L circumflex EGD 04/26/[address] [facility] [address] Nolan Triana EGD 05/23/2024 EGD TRANSORAL BIOPSY SINGLE/MULTIPLE 07/10/2007 PAST SURGICAL HISTORY OF 01/26/2008 stent placement ramus and prox ramus PAST SURGICAL HISTORY OF heart stents PROSTATECTOMY PERINEAL RADICAL 2000 Prostatectomy, radical- Dr. 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 Yousif Triana; next screening colonoscopy in 10yrs, [facility] UNLISTED DIAGNOSTIC GASTROENTEROLOGY PROCEDURE 06/06/2018 ALLERGIES Atorvastatin, Crestor [Rosuvastatin Calcium], Glucosamine, Motrin [Ibuprofen], Pravastatin, and Bwmltif-Wyk-Pig Reductase Inhibitors MEDICATIONS zinc sulfate (ZINC-15 ORAL) [...] 10 Units subcutaneously daily at bedtime. Insulin Brighton, Disposable, (BD ULTRA-FINE BENNY PEN NEEDLE) 32 [...] daily. potassium chloride ( (more content not included)...[facility] 01-09-2025 History of Present illness Narrative* Khloe Ibarra APRN.WATER ATTENDANT - 01/09/2025 3:01 PM EDT [facility] [...] history started taking lasix this morning from 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 Mild lower leg swelling but denies that [...] Xience stent to L circumflex EGD 04/26/[address] [facility] [address] Nolan Triana EGD 05/23/2024 EGD TRANSORAL BIOPSY SINGLE/MULTIPLE 07/10/2007 PAST SURGICAL HISTORY OF 01/26/2008 stent placement ramus and prox ramus PAST SURGICAL HISTORY OF heart stents PROSTATECTOMY PERINEAL RADICAL 2000 Prostatectomy, radical- Dr. 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 Yousif Triana; next screening colonoscopy in 10yrs, [facility] UNLISTED DIAGNOSTIC GASTROENTEROLOGY PROCEDURE 06/06/2018 ALLERGIES Atorvastatin, Crestor [Rosuvastatin Calcium], Glucosamine, Motrin [Ibuprofen], Pravastatin, and Egzyzet-Wgz-Hih Reductase Inhibitors MEDICATIONS zinc sulfate (ZINC-15 ORAL) [...] Inject 10 Units subcutaneouslydaily at bedtime. Insulin Brighton, Disposable, (BD ULTRA-FINE BENNY PEN NEEDLE) 32 [...] symptoms persist or worsen. - Dalia Ibarra APRN.WATER ATTENDANT [facility] Patient well appearing nontoxic in no acute [...] plan. Patient discharged home. [facility] History of Present illness Narrative* Jennifer Cano [...] PATIENT PRESENTS WITH AN IMPLANTABLE OR ATTACHED FIBERGLASS CONTAINER WINDING OPERATOR: No RADIOLOGY DEPARTMENT: General X-ray: Exam(s) Completed: Chest X-Ray PERIPHERAL IV DATA: Not applicable SIGNED BY: WOOD Berkowitz) January 09, 2025 2:26 PM documented in this encounterMarietta Osteopathic Clinic06-11-2025 NoteHNO ID: [id number] Author: JENNIFER CANO RT(R) Service: ? Author [...] PATIENT PRESENTS WITH AN IMPLANTABLE OR ATTACHED FIBERGLASS CONTAINER WINDING OPERATOR: No RADIOLOGY DEPARTMENT: General X-ray: Exam(s) Completed: Chest X-Ray PERIPHERAL IV DATA: Not applicable SIGNED BY: RT Woo(R) January 09, 2025 2:26 [facility]05-12-2025 NoteHNO ID: [id number] Author: REGAN ROSS MA Service: ? Author Type: Ceo And President Type: Progress Notes Filed: 12/10/2024 13:12 Note [...] Regan Ross MA December 10, 2024 12:51 [facility]05-12-2025 History of Present illness Narrative* Regan Ross [...] 10, 2024 12:51 PM documented in this encounterMarietta Osteopathic Clinic05-12-2025 NotePatient Outreach (NETNAV) ALEJO GAGE ([id number]) 1940 M Date Time Provider Department 12/10/24 [...] - Other: See Comments Comments: muscle aches MAQSZEU-EWL-KUD REDUCTASE INHIBIT*10/09/2014 14 - Other: See Comments [...] Units subcutaneously daily at bedtime. - Insulin Brighton, Disposable, (BD ULTRA-FINE BENNY PEN NEEDLE) 32 [...] of hemorrhage [*1 (more content not included)... [facility]04-28-2025 History of Present illness Narrative* Miya Woodson [...] PATIENT PRESENTS WITH AN IMPLANTABLE OR ATTACHED FIBERGLASS CONTAINER WINDING OPERATOR: No RADIOLOGY DEPARTMENT: General X-ray: Exam(s) Completed: Spine X-Ray(s): Thoracic Upper Extremity X-Ray(s): Shoulder, AP / TRUE AP / AXILLARY bilateral PERIPHERAL IV DATA: Not applicable SIGNED BY: RT Galileo(R) November 26, 2024 3:32 PM documented in this encounterMarietta Osteopathic Clinic04-28-2025 NoteHNO ID: [id number] Author: MIYA WOODSON RT(Yousif) Service: ? Author Type: Roll Hauler Type: Progress Notes Filed: 11/26/2024 15:48 Note [...] PATIENT PRESENTS WITH AN IMPLANTABLE OR ATTACHED FIBERGLASS CONTAINER WINDING OPERATOR: No RADIOLOGY DEPARTMENT: General X-ray: Exam(s) Completed: Spine X-Ray(s): Thoracic Upper Extremity X-Ray(s): Shoulder, AP / TRUE AP / AXILLARY bilateral PERIPHERAL IV DATA: Not applicable SIGNED BY: RT Galileo(R) November 26, 2024 3:32 [facility]04-28-2025 NoteHNO ID: [id number] Author: THEODORA HERNANDEZ APRN.WATER ATTENDANT Service: ? Author Type: Nurse Practitioner Type: Progress Notes Filed: 11/26/2024 15:43 Note Text: CC: Patient presents with: Pain: in right shoulder for about 6 weeks denies any injury HPI Recording using [employer] software for draft documentation of the visit was discussed with the patient/authorized patient account representative; all questions welcomed and answered. Patient/authorized patient account representative agreed to proceed Alejo is a [...] Xience stent to L circumflex EGD 04/26/[address] [facility] [address] Nolan Triana EGD 05/23/2024 EGD TRANSORAL BIOPSY SINGLE/MULTIPLE 07/10/2007 PAST SURGICAL HISTORY OF 01/26/2008 stent placement ramus and prox ramus PAST SURGICAL HISTORY OF heart stents PROSTATECTOMY PERINEAL RADICAL 2000 Prostatectomy, radical- Dr. 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 Yousif Triana; next screening colonoscopy in 10yrs, [facility] UNLISTED DIAGNOSTIC GASTROENTEROLOGY PROCEDURE 06/06/2018 ALLERGIES Atorvastatin, Crestor [Rosuvastatin Calcium], Glucosamine, Motrin [Ibuprofen], Pravastatin, and Uwtdoky-Iqp-Rjn Reductase Inhibitors MEDICATIONS amLODIPine (NORVASC) 10 mg [...] by mouth once daily. (more content not included)...[facility]04-28-2025 History of Present illness Narrative* Theodora Hernandez, BUSINESS SERVICES CLERK.WATER ATTENDANT - 11/26/2024 3:29 PM EDT CC: Patient presents with: Pain: in right shoulder for about 6 weeks denies any injury HPI Recording using [employer] software for draft documentation of the visit was discussed with the patient/authorized patient account representative; all questions welcomed and answered. Patient/authorized patient account representative agreed to proceed Alejo is a [...] Xience stent to L circumflex EGD 04/26/[address] [facility] [address] Nolan Trinaa EGD 05/23/2024 EGD TRANSORAL BIOPSY SINGLE/MULTIPLE 07/10/2007 PAST SURGICAL HISTORY OF 01/26/2008 stent placement ramus and prox ramus PAST SURGICAL HISTORY OF heart stents PROSTATECTOMY PERINEAL RADICAL 2000 Prostatectomy, radical- Dr. 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 Yousif Triana; next screening colonoscopy in 10yrs, [facility] UNLISTED DIAGNOSTIC GASTROENTEROLOGY PROCEDURE 06/06/2018 ALLERGIES Atorvastatin, Crestor [Rosuvastatin Calcium], Glucosamine, Motrin [Ibuprofen], Pravastatin, and Ltibzqj-Gmw-Hkf Reductase Inhibitors MEDICATIONS amLODIPine (NORVASC) 10 mg [...] day. Insulin Dep? Yes DX E11.9 Insulin Brighton, Disposable, (BD ULTRA-FINE BENNY PEN NEEDLE) 32 [...] Patient agreeable to treatment plan. Theodora Hernandez APRN.WATER ATTENDANT documented in this encounterMarietta Osteopathic Clinic04-28-2025 Instructions* Patient Instructions* Theodora Hernandez APRN.JAIRON - [...] heat or ice on the affected area. Gehj-hla-ueqvrfs options like Icy Hot or Biofreeze may [...] prednisone and hydrocodone have been sent to [facility] in [place]. Please let us know if you have any questions or concerns. documented in this encounterMarietta Osteopathic Clinic03-27-2025 Telephone encounter Note * Telephone Encounter - [...] Arboleda LPN October 25, 2024 4:04 PM [facility]03-27-[facility]25 Miscellaneous Notes* Telephone Encounter - Yeimy Arboleda [...] 25, 2024 4:04 PM documented in this encounterMarietta Osteopathic Clinic02-26-2025 NoteHNO ID: [id number] Author: SAMSON RAGSDALE, DO Service: ? Author [...] Xience stent to L circumflex EGD 04/26/[address] [facility] [address] Nolan Triana EGD 05/23/2024 EGD TRANSORAL BIOPSY SINGLE/MULTIPLE 07/10/2007 PAST SURGICAL HISTORY OF 01/26/2008 stent placement ramus and prox ramus PAST SURGICAL HISTORY OF heart stents PROSTATECTOMY PERINEAL RADICAL 2000 Prostatectomy, radical- Dr. 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 Yousif Triana; next screening colonoscopy in 10yrs, [facility] UNLISTED DIAGNOSTIC GASTROENTEROLOGY PROCEDURE 06/06/2018 Social [...] Father Heart Mother Allergies: (more content not included)...[facility]02-26-[facility] History of Present illness Narrative* Samson [...] Xience stent to L circumflex EGD 04/26/[address] [facility] [address] Nolan Triana EGD 05/23/2024 EGD TRANSORAL BIOPSY SINGLE/MULTIPLE 07/10/2007 PAST SURGICAL HISTORY OF 01/26/2008 stent placement ramus and prox ramus PAST SURGICAL HISTORY OF heart stents PROSTATECTOMY PERINEAL RADICAL 2000 Prostatectomy, radical- Dr. 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 Yousif Triana; next screening colonoscopy in 10yrs, [facility] UNLISTED DIAGNOSTIC GASTROENTEROLOGY PROCEDURE 06/06/2018 Social [...] Rash Pravastatin Other: See Comments muscle aches Cgxpslk-Rno-Rda Red* Other: See Comments myalgia Current Meds: [...] DM - Uncontrolled, E11.65 Insulin: Yes Insulin Brighton, Disposable, (BD ULTRA-FINE BENNY PEN NEEDLE) 32 [...] disease, with long-term current use of insulin ([facility]) - ICD9: 250.40, 585.4, V58.67, ICD10: E11.22, [...] kidney disease) stage 4, GFR 15-29 ml/min ([facility]) - ICD9: 585.4, ICD10: N18.4 - eGFR: [...] 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 9. 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) - ICD9: [...] with the plan. Samson Ragsdale DO [address] [place] [address] documented in this encounterMarietta Osteopathic Clinic02-17-2025 Telephone encounter Note * Telephone Encounter - Desirae Irving APRN.CNP - 09/17/2024 2:05 PM EST Labs placed this morning. Already in process. Desirae Irving APRN.CNP [facility] Work Phone: [phone]) 822-482302-17-2025 Miscellaneous Notes* Telephone Encounter - Desirae Irving APRN.CNP - 09/17/2024 2:05 PM EST Labs placed this morning. Already in process. Desirae Irving APRN.WATER ATTENDANT * Telephone Encounter - Sirena Martinez - 09/17/2024 10:39 AM EST Patient is wanting to come in to today for routine lab work for upcoming wellness exam with PCP on 09/26/24. Please notify patient when orders are available in chart. documented in this encounterMarietta Osteopathic Clinic02-17-2025 History of Present illness Narrative* Desirae Irving APRN.CNP - 09/17/2024 12:59 PM EST Lab work placed. Thank you, Desirae Irving APRN.WATER ATTENDANT documented in this encounterMarietta Osteopathic Clinic02-17-2025 NoteHNO ID: [id number] Author: DESIRAE IRVING APRN.CNP Service: ? Author Type: Nurse Practitioner Type: Progress Notes Filed: 09/17/2024 13:00 Note Text: Lab work placed. Thank you, Desirae Irving APRN.[facility]NP[facility] Telephone encounter Note* Telephone Encounter - Sirena Martinez - 09/17/2024 10:39 AM EST Patient is wanting to come in to today for routine lab work for upcoming wellness exam with PCP on 09/26/24. Please notify patient when orders are available in chart. [facility]11-08-2024 Telephone encounter Note* Telephone Encounter - Komal Rich RN - 06/08/2024 2:53 PM EST [facility] [place] Komal Rich RN June 08, 2024 2:54 PM [facility]11-08-2024 Miscellaneous Notes* Telephone Encounter - Komal Rich RN - 06/08/2024 2:53 PM EST [facility] [place] Komal Rich RN June 08, 2024 2:54 PM * Telephone Encounter - Cristela Andersen APRN.CNP - 06/08/2024 2:31 PM EST 3mg capsules sent to [facility] in [place]. Please call Alejo & let him know. Thank you, Cristela Andersen APRN.WATER ATTENDANT * Telephone Encounter - Olga Cobb RN [...] sent. Olga Cobb RN documented in this encounterMarietta Osteopathic Clinic11-08-2024 Telephone encounter Note * Telephone Encounter - Cristela Andersen APRN.CNP - 06/08/2024 2:31 PM EST 3mg capsules sent to [facility] in [place]. Please call Alejo & let him know. Thank you, Cristela Andersen APRN.CNP [facility]11-08-2024 Telephone encounter Note* Telephone Encounter - Olga [...] the script is sent. Olga Cobb RN [facility]10-31-2024 History of Present illness Narrative* Cristela Andersen APRN.JAIRON - 05/31/2024 2:00 PM EDT FOLLOW UP VISIT - ENDOSCOPY Alejo Gage 1940 [id number] REFERRING PHYSICIAN: No referring provider defined for [...] improvement. Cristela Andersen APRN.JAIRON documented in this encounterMarietta Osteopathic Clinic10-31-2024 NoteHNO ID: [id number] Author: CRISTELA ANDERSEN APRN.JAIRON Service: ? Author Type: Nurse Practitioner Type: Progress Notes Filed: 05/31/2024 14:38 Note Text: FOLLOW UP VISIT - ENDOSCOPY Alejo Gage 1940 [id number] REFERRING PHYSICIAN: No referring provider defined for [...] as needed for worsening/no improvement. Cristela Andersen APRN.[facility] Telephone encounter Note* Telephone Encounter - Sivan Ross - 05/30/2024 12:52 PM EDT Patient notified and scheduled for an EGD & colon follow up from 05-23 Sivan Ross [facility] Work Phone: [phone] Miscellaneous Notes* Telephone Encounter - Sivan Ross [...] person or virtual. Thank you, Cristela Andersen APRN.WATER ATTENDANT documented in this encounterMarietta Osteopathic Clinic10-30-2024 Telephone encounter Note * Telephone Encounter - Cristela Andersen APRN.CNP - 05/30/2024 9:56 AM EDT Can you please call Alejo to let him know he needs a visit to go over his colonoscopy/EGD results. Can be in person or virtual. Thank you, Cristela Andersen APRN.JAIRON [facility] Work Phone: 1([phone] 380-794810-23-2024 Attending History and physical note* Malu Mendoza MD - 05/23/2024 2:15 PM EDT UPDATED HISTORY AND PHYSICAL EXAMINATION SERVICE DATE: 05/23/2024 SERVICE TIME: 13:33 SENSITIVE EXAMINATION CONSENT: The sensitive examination was discussed with the Patient or Patient's Authorized Residential Monitor. Asapplicable, any other physician, advance practice provider, medical student, or other health professional student that will be observing or involved in the sensitive examination for educational or training purposes was discussed with the Patient or Authorized Residential Monitor. The Patient or Authorized Residential Monitor has agreed to proceed with the sensitive [...] SIGNATURE: Malu Mendoza MD PATIENT NAME: Alejo Ggae DATE: May 23, 2024 TIME: 1:33 PM Source Note - Malu Mendoza MD - 05/23/2024 2:15 PM EDT HISTORY AND PHYSICAL Alejo Gage : 1940 REFERRING PHYSICIAN: Samson Ragsdale [address] [facility] [address] CHIEF COMPLAINT: Patient presents with: Consult: Colonoscopy [...] 2022 EF of 53%. Alejo follows with [facility] had elective cath 06/2023 due to positive stress test. 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 Currently takes plavix. Follows with Dr. Petersen at [facility]. Last OV 07/2023 Alejo has a hx of Alzheimers dementia Alejo has undergone prior endoscopy. Last EGD &colonoscopy 04/2017 with At [facility] for anemia Impression: -Findings suggest upper [...] - Uncontrolled, E11.65 Insulin: Yes CRANBERRY Insulin Brighton, Disposable, (BD ULTRA-FINE BENNY PEN NEEDLE) 32 [...] [Rosuvastatin Calcium], Glucosamine, Motrin [Ibuprofen], Pravastatin, and Wymjuye-Jgg-Hyn Reductase Inhibitors PAST MEDICAL HISTORY PAST MEDICAL [...] Xience stent to L circumflex EGD 04/26/[address] [facility] [address] Nolan Triana EGD TRANSORAL BIOPSY SINGLE/MULTIPLE 07/10/07 PAST SURGICAL HISTORY OF 01/26/08 stent placement ramus and prox ramus PAST SURGICAL HISTORY OF heart stents PROSTATECTOMY PERINEAL RADICAL 2000 Prostatectomy, radical- Dr. 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 Yousif Triana; next screening colonoscopy in 10yrs, [facility] UNLISTED DIAGNOSTIC GASTROENTEROLOGY PROCEDURE 06/06/2018 FAMILY [...] edited and updated as necessary. Cristela Andersen APRN.WATER ATTENDANT [facility] Work Phone: [phone] History and physical note* Malu Mendoza MD - 05/23/2024 2:15 PM EDT HISTORY AND PHYSICAL Alejo Gage : 1940 REFERRING PHYSICIAN: Samson Ragsdale [address] [facility] [address] CHIEF COMPLAINT: Patient presents with: Consult: Colonoscopy [...] 2022 EF of 53%. Alejo follows with [facility] had elective cath 06/2023 due to positive stress test. 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 Currently takes plavix. Follows with Dr. Petersen at [facility]. Last OV 07/2023 Alejo has a hx of Alzheimers dementia Alejo has undergone prior endoscopy. Last EGD &colonoscopy 04/2017 with At [facility] for anemia Impression: -Findings suggest upper [...] - Uncontrolled, E11.65 Insulin: Yes CRANBERRY Insulin Brighton, Disposable, (BD ULTRA-FINE BENNY PEN NEEDLE) 32 [...] [Rosuvastatin Calcium], Glucosamine, Motrin [Ibuprofen], Pravastatin, and Uvabvrs-Cyg-Kvc Reductase Inhibitors PAST MEDICAL HISTORY PAST MEDICAL [...] Xience stent to L circumflex EGD 04/26/[address] [facility] [address] Nolan Triana EGD TRANSORAL BIOPSY SINGLE/MULTIPLE 07/10/07 PAST SURGICAL HISTORY OF 01/26/08 stent placement ramus and prox ramus PAST SURGICAL HISTORY OF heart stents PROSTATECTOMY PERINEAL RADICAL 1999 Prostatectomy, radical- Dr. 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 Yousif Triana; next screening colonoscopy in 10yrs, [facility] UNLISTED DIAGNOSTIC GASTROENTEROLOGY PROCEDURE 06/06/2018 FAMILY [...] edited and updated as necessary. Cristela Andersen APRN.WATER ATTENDANT [facility]10-23-2024 History and physical note* Malu Mendoza MD - 05/23/2024 2:15 PM EDT UPDATED HISTORY AND PHYSICAL EXAMINATION SERVICE DATE: 05/23/2024 SERVICE TIME: 13:33 SENSITIVE EXAMINATION CONSENT: The sensitive examination was discussed with the Patient or Patient's Authorized Residential Monitor. Asapplicable, any other physician, advance practice provider, medical student, or other health professional student that will be observing or involved in the sensitive examination for educational or training purposes was discussed with the Patient or Authorized Residential Monitor. The Patient or Authorized Residential Monitor has agreed to proceed with the sensitive [...] : 1940 REFERRING PHYSICIAN: Samson Ragsdale [address] [facility] [address] CHIEF COMPLAINT: Patient presents with: Consult: Colonoscopy [...] nausea Denies family history of colon issues. Aeljo has a hx of CAD with stents from 2007. Last stress test 2022 EF of 53%. Alejo follows with [facility] had elective cath 06/2023 due to positive stress test. 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 Currently takes plavix. Follows with Dr. Petersen at [facility]. Last OV 07/2023 Alejo has a hx of Alzheimers dementia Alejo has undergone prior endoscopy. Last EGD &colonoscopy 04/2017 with At [facility] for anemia Impression: -Findings suggest upper [...] - Uncontrolled, E11.65 Insulin: Yes CRANBERRY Insulin Brighton, Disposable, (BD ULTRA-FINE BENNY PEN NEEDLE) 32 [...] [Rosuvastatin Calcium], Glucosamine, Motrin [Ibuprofen], Pravastatin, and Yjhbchu-Ezk-Bew Reductase Inhibitors PAST MEDICAL HISTORY PAST MEDICAL [...] Xience stent to L circumflex EGD 04/26/[address] [facility] [address] Nolan Triana EGD TRANSORAL BIOPSY SINGLE/MULTIPLE 07/10/07 PAST SURGICAL HISTORY OF 01/26/08 stent placement ramus and prox ramus PAST SURGICAL HISTORY OF heart stents PROSTATECTOMY PERINEAL RADICAL 2000 Prostatectomy, radical- Dr. 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 Yousif Triana; next screening colonoscopy in 10yrs, [facility] UNLISTED DIAGNOSTIC GASTROENTEROLOGY PROCEDURE 06/06/2018 FAMILY [...] entered by the nurse and reviewed by ok Nursing Notes: Sabina Cisneros RN 04/13/2024 3:37 [...] edited and updated as necessary. Cristela Andersen APRN.WATER ATTENDANT * Malu Mendoza MD - 05/23/2024 2:15 PM EDT HISTORY AND PHYSICAL Alejo Gage : 1940 REFERRING PHYSICIAN: Samson Ragsdale [address] [facility] [address] CHIEF COMPLAINT: Patient presents with: Consult: Colonoscopy [...] 2022 EF of 53%. Alejo follows with [facility] had elective cath 06/2023 due to positive stress test. 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 Currently takes plavix. Follows with Dr. Petersen at [facility]. Last OV 07/2023 Alejo has a hx of Alzheimers dementia Alejo has undergone prior endoscopy. Last EGD &colonoscopy 04/2017 with At [facility] for anemia Impression: -Findings suggest upper [...] - Uncontrolled, E11.65 Insulin: Yes CRANBERRY Insulin Brighton, Disposable, (BD ULTRA-FINE BENNY PEN NEEDLE) 32 [...] [Rosuvastatin Calcium], Glucosamine, Motrin [Ibuprofen], Pravastatin, and Bciwpxu-Spl-Nwa Reductase Inhibitors PAST MEDICAL HISTORY PAST MEDICAL [...] Xience stent to L circumflex EGD 04/26/[address] [facility] [address] Nolan Triana EGD TRANSORAL BIOPSY SINGLE/MULTIPLE 07/10/07 PAST SURGICAL HISTORY OF 01/26/08 stent placement ramus and prox ramus PAST SURGICAL HISTORY OF heart stents PROSTATECTOMY PERINEAL RADICAL 2000 Prostatectomy, radical- Dr. 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 Yousif Triana; next screening colonoscopy in 10yrs, [facility] UNLISTED DIAGNOSTIC GASTROENTEROLOGY PROCEDURE 06/06/2018 FAMILY [...] edited and updated as necessary. Cristela Andersen APRN.WATER ATTENDANT documented in this encounterMarietta Osteopathic Clinic10-09-2024 Instructions* Patient Instructions* Eli Lauren APRN.JAIRON - 05/09/2024 1:53 PM EDT Images from the original note were not included. [facility] PATIENT PREOPERATIVE INSTRUCTIONS aMlu Mendoza MD has scheduled you for your procedure at this surgery center: [facility]: [phone] -- [address] [facility] [address]. Please read below carefully for your personalized [...] diagnostic (BLOOD GLUCOSE TEST) test strip Insulin Brighton, Disposable, (BD ULTRA-FINE BENNY PEN NEEDLE) 32 [...] Procedures: - YOU MUST HAVE A RESPONSIBLE MULTI SLIDE MACHINE TENDER TAKE YOU HOME. A DIATHERMY EQUIPMENT REPAIRER OR GROUND SUPPORT EQUIPMENT FITTER CANNOT BE MADE A RESPONSIBLE MULTI SLIDE MACHINE TENDER. - We recommend that a responsible person [...] Advance Directive, please fax a copy to [phone] or email to for it to be [...] day. Eli Lauren APRN.CNP documented in this encounterMarietta Osteopathic Clinic10-09-2024 History and physical note * Eli Lauren APRN.CNP - 05/09/2024 1:46 PM EDT Images from the original note were not included. [place] [facility] HISTORY [...] aneurysm measuring 4.3cm at mid. 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 [facility]. Last OV scanned into epic2023 and AC instructions and clearance scanned into [email or web address] as well 04/16/2024 Complete atrioventricular block (HCC) Assessment: per PCP note 09/2023 this is stable, but no mention in first press operator notes of this. Pt has no h/o [...] have a large neck STOP-Bang Score: 3 [id number] Score: Age: >=75 Sex: male CHF history: No Hypertension history: Yes Stroke/TIA/thromboembolism history: No Vascular disease history: Yes Diabetes history: Yes [id number] Score: 5 ARISCAT Score: Age: >80 Preoperative [...] 2022 EF of 53%. Alejo follows with [facility] had elective cath 06/2023 due to positive stress test. 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 Currently takes plavix. Follows with Dr. Petersen at [facility]. Last OV 07/2023 Alejo has a hx of Alzheimers dementia Alejo has undergone prior endoscopy. Last EGD &colonoscopy 04/2017 with At [facility] for anemia Impression: -Findings suggest upper gastritis clopidogrel and aspirin and potassium supplements -Left-sided diverticulosis but no evidence of diverticular bleed -Internal hemorrhoid no evidence of bleeding Small Bowel Capsule 06/2018 IMPRESSION: Duodenal and ileal bleeding REVIEW OF SYSTEMS: General: No weight loss, malaise or fevers. Neurological: No history of TIA's, stroke, REGIONAL SALES COORDINATOR tumor, impaired sensorium, hemiplegia, paraplegia orquadraplegia. No neurological symptoms or problems. Respiratory: +former smoker. No history of current cough or dyspnea, or pneumonia in the past 6 weeks. No history of respiratory/pulmonary symptoms or problems. Cardiovascular: Positive for: abdominal aortic aneurysm (under surveillance), anticoagulation therapy, CAD, hyperlipidemia (statin intolerant), hypertension and open heart surgery Patient's last office visit with first press operator, Lupe, The following tests and/or procedures were performed: cardiac stents. Negative for: AICD/PPM, angina, arrhythmia, atrial fibrillation, chest pain, CHF, congenital heart defect, DVT/PE, recent MO, murmur/valvular heart disease, PTCA and valve surgery. [...] without mention of hemorrhage 04/26/2017 EGD by [facility] Advance care planning 03/24/2022 angelo Matamoros can help with medical decision making AMI (acute myocardial infarction) (HCC) 07/03/2013 Carotid atherosclerosis 05/2014 CKD stage G3b/A2, GFR 30-44 and albumin creatinine ratio 30-299 mg/g (HCC) AVOID NEPHROTOXIC MEDICATIONS Diabetes mellitus type 2, uncontrolled, without complications Diaphragmatic hernia without mention of obstruction or gangrene Diverticulosis of colon (without mention of hemorrhage) 04/26/2017 colonoscopy by [facility] Esophagitis Generalized osteoarthrosis, unspecified site Internal hemorrhoid 04/26/2017 colonoscopy by Planitax Iron deficiency anemia Malignant neoplasm of prostate [...] Xience stent to L circumflex EGD 04/26/[address] [facility] [address] Nolan Triana EGD TRANSORAL BIOPSY SINGLE/MULTIPLE 07/10/07 PAST SURGICAL HISTORY OF 01/26/08 stent placement ramus and prox ramus PAST SURGICAL HISTORY OF heart stents PROSTATECTOMY PERINEAL RADICAL 2000 Prostatectomy, radical- Dr. 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 Yousif Triana; next screening colonoscopy in 10yrs, [facility] UNLISTED DIAGNOSTIC GASTROENTEROLOGY PROCEDURE 06/06/2018 FAMILY [...] Uncontrolled, E11.65 Insulin: Yes Taking Yes Insulin Brighton, Disposable, (BD ULTRA-FINE BENNY PEN NEEDLE) 32 [...] Rash Pravastatin Other: See Comments muscle aches Tmbkqzq-Vag-Upj Red* Other: See Comments myalgia Objective PHYSICAL [...] 8760 hour(s)). Recent Results (from the past 48329 hour(s)) ECHO Collection Time: 03/25/23 1:42 PM [...] 09, 2024 TIME: 1:46 PM PAGER/CONTACT #: [facility]10-09-2024 History and physical note* Eli Lauren APRN.CNP [...] aneurysm measuring 4.3cm at mid. 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 [facility]. Last OV scanned into epic2023 and AC instructions and clearance scanned into epic as well 04/16/2024 Complete atrioventricular block (HCC) Assessment: per PCP note 09/2023 this is stable, but no mention in first press operator notes of this. Pt has no h/o [...] have a large neck STOP-Bang Score: 3 [id number] Score: Age: >=75 Sex: male CHF history: No Hypertension history: Yes Stroke/TIA/thromboembolism history: No Vascular disease history: Yes Diabetes history: Yes [id number] Score: 5 ARISCAT Score: Age: >80 Preoperative [...] endoscopy. Last EGD &colonoscopy 04/2017 with At [facility] for anemia Impression: -Findings suggest upper gastritis clopidogrel and aspirin and potassium supplements -Left-sided diverticulosis but no evidence of diverticular bleed -Internal hemorrhoid no evidence of bleeding Small Bowel Capsule 06/2018 IMPRESSION: Duodenal and ileal bleeding REVIEW OF SYSTEMS: General: No weight loss, malaise or fevers. Neurological: No history of TIA's, stroke, REGIONAL SALES COORDINATOR tumor, impaired sensorium, hemiplegia, paraplegia orquadraplegia. No neurological symptoms or problems. Respiratory: +former smoker. No history of current cough or dyspnea, or pneumonia in the past 6 weeks. No history of respiratory/pulmonary symptoms or problems. Cardiovascular: Positive for: abdominal aortic aneurysm (under surveillance), anticoagulation therapy, CAD, hyperlipidemia (statin intolerant), hypertension and open heart surgery Patient's last office visit with first press operator, Lupe, The following tests and/or procedures were performed: cardiac stents. Negative for: AICD/PPM, angina, arrhythmia, atrial fibrillation, chest pain, CHF, congenital heart defect, DVT/PE, recent MO, murmur/valvular heart disease, PTCA and valve surgery. [...] Xience stent to L circumflex EGD 04/26/[address] [facility] [address] Nolan Triana EGD TRANSORAL BIOPSY SINGLE/MULTIPLE 07/10/07 PAST SURGICAL HISTORY OF 01/26/08 stent placement ramus and prox ramus PAST SURGICAL HISTORY OF heart stents PROSTATECTOMY PERINEAL RADICAL 2000 Prostatectomy, radical- Dr. 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 Yousif Triana; next screening colonoscopy in 10yrs, [facility] UNLISTED DIAGNOSTIC GASTROENTEROLOGY PROCEDURE 06/06/2018 FAMILY [...] Uncontrolled, E11.65 Insulin: Yes Taking Yes Insulin Brighton, Disposable, (BD ULTRA-FINE BENNY PEN NEEDLE) 32 [...] Rash Pravastatin Other: See Comments muscle aches Oyoigel-Skv-Rls Red* Other: See Comments myalgia Objective PHYSICAL [...] 8760 hour(s)). Recent Results (from the past 13291 hour(s)) ECHO Collection Time: 03/25/23 1:42 PM [...] 1:46 PM PAGER/CONTACT #: documented in this encounterMari[facility]09-27-[facility]24 Telephone encounter Note * Telephone Encounter - [...] Khan LPN April 27, 2024 2:09 PM [facility]09-27-2024 Miscellaneous Notes* Telephone Encounter - Eli Khan [...] 27, 2024 2:09 PM documented in this encounterMarietta [facility]09-24-2024 Telephone encounter Note * Telephone Encounter - Jaja Marshall - 04/24/2024 8:19 AM EDT Cardiac clearance received. Patient cleared to proceed and should HOLD Plavix 7 days prior to scopes. Per Dr. Palomo Petersen recommends patient to remain on ASA 81 mg uninterrupted. See scanned doc (also attached to encounter) Jaja Marshall Trial Mgr [facility]09-24-2024 Miscellaneous Notes* Telephone Encounter - Jaja Marshall - 04/24/2024 8:19 AM EDT Cardiac clearance received. Patient cleared to proceed and should HOLD Plavix 7 days prior to scopes. Per Dr. Palomo Petersen recommends patient to remain on ASA 81 mg uninterrupted. See scanned doc (also attached to encounter) Jaja Marshall Trial Mgr * Telephone Encounter - Jaja Marshall - 04/16/2024 11:31 AM EDT Per Cristela Andersen patient to seek cardiac clearance prior to proceeding with scopes on 05/23/2024with Dr. Reji clinton Maxwell Patient follows Lupe Petersen. Clearance form faxed to their office at [phone] (see scanned doc for fax confirmation) Patient aware of all steps needed to be completed prior to proceeding and voiced understanding Jaja Marshall Trial Mgr documented in this encounterMarietta [facility] Clinic09-16-2024 Telephone encounter Note * Telephone Encounter - Jaja Marshall - 04/16/2024 11:31 AM EDT Per Cristela Andersen patient to seek cardiac clearance prior to proceeding with scopes on 05/23/2024with Dr. Reji clinton Whalen Patient follows Lupe Petersen. Clearance form faxed to their office at [phone] (see scanned doc for fax confirmation) Patient aware of all steps needed to be completed prior to proceeding and voiced understanding Jaja Marshall Trial Mgr [facility]09-13-2024 Nurse Note* Sabina Cisneros RN - 04/13/2024 3:36 PM EDT Patient was given verbal and written instructions regarding bowel prep. He was instructed to call the office if he has any further questions. He verbalized understanding. [facility]09-13-2024 Nurse Note* Sabina Cisneros RN - 04/13/2024 3:36 PM EDT Patient was given verbal and written instructions regarding bowel prep. He was instructed to call the office if he has any further questions. He verbalized understanding. documented in this encounterMarietta Oste[facility] Clinic09-13-2024 History of Present illness Narrative* Cristela Andersen APRN.JAIRON - 04/13/2024 2:15 PM EDT HISTORY AND PHYSICAL Alejo Gage : 1940 REFERRING PHYSICIAN: Samson Ragsdale [address] [facility] [address] CHIEF COMPLAINT: Patient presents with: Consult: Colonoscopy [...] 2022 EF of 53%. Alejo follows with [facility] had elective cath 06/2023 due to positive stress test. 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 Currently takes plavix. Follows with Dr. Petersen at [facility]. Last OV 07/2023 Alejo has a hx of Alzheimers dementia Alejo has undergone prior endoscopy. Last EGD &colonoscopy 04/2017 with At [facility] for anemia Impression: -Findings suggest upper [...] - Uncontrolled, E11.65 Insulin: Yes CRANBERRY Insulin Brighton, Disposable, (BD ULTRA-FINE BENNY PEN NEEDLE) 32 [...] [Rosuvastatin Calcium], Glucosamine, Motrin [Ibuprofen], Pravastatin, and Dixnppc-Ucx-Lnj Reductase Inhibitors PAST MEDICAL HISTORY Diagnosis Date [...] Xience stent to L circumflex EGD 04/26/[address] [facility] [address] Nolan Triana EGD TRANSORAL BIOPSY SINGLE/MULTIPLE 07/10/07 PAST SURGICAL HISTORY OF 01/26/08 stent placement ramus and prox ramus PAST SURGICAL HISTORY OF heart stents PROSTATECTOMY PERINEAL RADICAL 1999 Prostatectomy, radical- Dr. 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 Yousif Triana; next screening colonoscopy in 10yrs, [facility] UNLISTED DIAGNOSTIC GASTROENTEROLOGY PROCEDURE 06/06/2018 FAMILY [...] entered by the nurse and reviewed by ok Nursing Notes: Sabina Cisneros RN 04/13/2024 3:37 [...] edited and updated as necessary. Cristela Andersen APRN.WATER ATTENDANT documented in this encounterMarietta [facility] Clinic09-12-2024 Telephone encounter Note * Telephone Encounter - Lorraine Saravia RN - 04/12/2024 12:55 PM EDT Patient calling regarding lab result related question. Information provided. Lorraine Saravia RN [facility]09-12-2024 Miscellaneous Notes* Telephone Encounter - Lorraine Saravia RN - 04/12/2024 12:55 PM EDT Patient calling regarding lab result related question. Information provided. Lorraine Saravia RN documented in this encounterMarietta [facility] Clinic09-06-2024 Telephone encounter Note * Telephone Encounter - [...] Khan LPN April 06, 2024 12:05 PM [facility]09-06-2024 Miscellaneous Notes* Telephone Encounter - Eli Khan [...] 06, 2024 12:05 PM documented in this encounterMarietta [facility] Clinic09-03-2024 Telephone encounter Note * Telephone Encounter - [...] Duncan LPN April 03, 2024 12:32 PM [facility]09-03-2024 Miscellaneous Notes* Telephone Encounter - Yu Duncan [...] 03, 2024 12:32 PM documented in this encounterMarietta [facility] Clinic08-26-2024 History of Present illness Narrative* Samson Ragsdale, [...] decision making 07/03/2013: AMI (acute myocardial infarction) ([facility]) 05/2014: Carotid atherosclerosis No date: CKD stage G3b/A2, GFR 30-44 and albumin creatinine ratio 30- 299 mg/g ([facility]) Comment: AVOID NEPHROTOXIC MEDICATIONS No date: Diabetes mellitus type 2, uncontrolled, without complications No date: Diaphragmatic hernia without mention of obstruction or gangrene 04/26/2017: Diverticulosis of colon (without mention of hemorrhage) Comment: colonoscopy by Cebul No date: Esophagitis No date: Generalized osteoarthrosis, unspecified site 04/26/2017: Internal hemorrhoid Comment: colonoscopy by [facility] No date: Iron deficiency anemia No date: Malignant neoplasm of prostate ([facility]) No date: Other and unspecified hyperlipidemia 1994: [...] stent to L circumflex 04/26/2017: EGD Comment: [facility] Dr. Nolan Triana 07/10/07: EGD TRANSORAL [...] Yousif Triana; next screening colonoscopy in 10yrs, [facility] 06/06/2018: UNLISTED DIAGNOSTIC GASTROENTEROLOGY PROCEDURE Social [...] Rash Pravastatin Other: See Comments muscle aches Wtatuks-Gmx-Rhn Red* Other: See Comments myalgia Current Meds: [...] ^Rfl: (Patient not taking:Reported on 05/31/2023) Insulin Brighton, Disposable, (BD ULTRA-FINE BENNY PEN NEEDLE) 32 [...] Recommend regular aerobic exercise 6. 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 Samson Ragsdale DO [address] [place] [address] documented in this encounterMarietta [facility] Clinic08-09-2024 Telephone encounter Note * Telephone Encounter - Caridad Delong MA - 03/09/2024 12:28 PM EDT Pt informed, verbalized understanding Caridad Delong MA [facility]08-09-2024 Miscellaneous Notes* Telephone Encounter - Caridad Delong [...] 03/26 Caridad Delong MA documented in this encounterMarietta [facility] Clinic08-09-2024 Telephone encounter Note * Telephone Encounter - Desirae Irving APRN.CNP - 03/09/2024 12:26 PM EDT Labs are placed. Need to be fasting for these. Thank you, Desirae Irving APRN.JAIRON [facility]08-09-2024 Telephone encounter Note* Telephone Encounter - Caridad Delong MA - 03/09/2024 12:17 PM EDT Pt requesting lab orders prior to upcoming appt with JG on 03/26 Caridad Delong MA [facility]06-28-2024 Telephone encounter Note* Telephone Encounter - Camille [...] Harper RN January 27, 2024 11:07 AM [facility]06-28-2024 Miscellaneous Notes* Telephone Encounter - Camille Harper [...] 27, 2024 11:07 AM documented in this encounterMarietta Osteopathic Clinic04-16-2024 Telephone encounter Note * Telephone Encounter - Cleopatra Frey LPN - 11/15/2023 10:25 AM EDT Paperwork is still needing completed. Paperwork on providers desk. Cleopatra Frey LPN [facility] Work Phone: 1(300) 108-220704-16-2024 Miscellaneous Notes* Telephone Encounter - Cleopatra Frey [...] forms found in scanning. documented in this encounterMarietta Osteopathic Clinic04-15-2024 Telephone encounter Note * Telephone Encounter - Samson Ragsdale DO - 11/14/2023 5:11 PM EDT A paper was signed today Is more needed? Samson Ragsdale DO [facility]04-15-2024 Miscellaneous Notes* Telephone Encounter - Rama Gould LPN - 11/14/2023 2:40 PM EDT Letter created and signed. Given to Patient. * Telephone Encounter - Malu Galindo LPN - 11/10/2023 1:49 PM EDT Pt came into office states has spoke with you in the past about his skin lesions and needing a letter for a meeting with the [place] [employer]. He has this meeting with them [...] asks to be called at this number [phone] when completed and he will supervisor opening and picking. documented in this encounterMarietta [facility] Clinic03-25-2024 Miscellaneous Notes* Telephone Encounter - Yeimy Arboleda [...] you. Yeimy Arboleda LPN. documented in this encounterMarietta [facility] Clinic03-08-2024 History of Present illness Narrative* Samson Ragsdale [...] 100 lbs or greater repeatedly in the [place] war. No recent injuries. Use of ice [...] the and he was exposed to Agent [place] in [place]. Hx of prostate cancer Mr. [...] Xience stent to L circumflex EGD 04/26/[address] [facility] [address] Nolan Triana EGD TRANSORAL BIOPSY SINGLE/MULTIPLE 07/10/07 PAST SURGICAL HISTORY OF 01/26/08 stent placement ramus and prox ramus PAST SURGICAL HISTORY OF heart stents PROSTATECTOMY PERINEAL RADICAL 1999 Prostatectomy, radical- Dr. 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 Yousif Triana; next screening colonoscopy in 10yrs, [facility] UNLISTED DIAGNOSTIC GASTROENTEROLOGY PROCEDURE 06/06/2018 Social [...] Rash Pravastatin Other: See Comments muscle aches Mvqmxec-Nkz-Gcc Red* Other: See Comments myalgia Current Meds: [...] ^Rfl: (Patient not taking:Reported on 05/31/2023) Insulin Brighton, Disposable, (BD ULTRA-FINE BENNY PEN NEEDLE) 32 [...] on low sodium diet 8. 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 Samson Ragsdale DO [address] [place] [address] documented in this encounterMarietta [facility] Clinic03-05-2024 History of Present illness Narrative* Brittany West, - 10/04/2023 10:37 AM EST Images from the original note were not included. [facility] [place] DEPARTMENT OF VASCULAR SURGERY OUTPATIENT VISIT DATE [...] Xience stent to L circumflex EGD 04/26/[address] [facility] [address] Nolan Triana EGD TRANSORAL BIOPSY SINGLE/MULTIPLE 07/10/07 PAST SURGICAL HISTORY OF 01/26/08 stent placement ramus and prox ramus PAST SURGICAL HISTORY OF heart stents PROSTATECTOMY PERINEAL RADICAL 1999 Prostatectomy, radical- Dr. 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 Yousif Triana; next screening colonoscopy in 10yrs, [facility] UNLISTED DIAGNOSTIC GASTROENTEROLOGY PROCEDURE 06/06/2018 SOCIAL [...] Yes^Disp: 300 Strip^Rfl: 3 CRANBERRY^^Disp: ^Rfl: Insulin Brighton, Disposable, (BD ULTRA-FINE BENNY PEN NEEDLE) 32 [...] Rash Pravastatin Other: See Comments muscle aches Cksedsk-Yqa-Smj Red* Other: See Comments myalgia PHYSICAL EXAM: [...] West DO PATIENT NAME: Alejo Gage DATE: October 04, 2023 TIME: 10:38 AM documented in this encounterMarietta [facility] Clinic02-27-2024 Telephone encounter Note * Telephone Encounter - Rama Belcher LPN - 09/27/2023 3:14 PM EST Pt. here inquiring about forms for the [facility]. I told Pt. they were on your desk and needed to be filled out. Pt. thought he had brought more in than just what I found. No forms found in scanning. [facility]02-26-2024 Instructions* Patient Instructions* Samson Ragsdale DO - 09/26/2023 2:01 PM EST Start eating a banana daily Start a probiotic at bedtime documented in this encounterMarietta [facility] Clinic12-05-2023 Miscellaneous Notes* Telephone Encounter - [place] Renetta Groves - 07/05/2023 4:51 PM EST [...] patient. Renetta Kirkpatrick Pss documented in this encounterMarietta [facility]opathic Clinic11-07-2023 Miscellaneous Notes* Telephone Encounter - Nav Allan LPN - 06/07/2023 12:59 PM EST Pt calling stating he brought in disability paperwork from the [place] to see if Dr Ragsdale would/couldcomplete this [...] pt. Nav Allan LPN documented in this [facility]10-31-2023 History of Present illness Narrative* Brittany West DO - 05/31/2023 10:12 AM EDT Images from the original note were not included. [facility] [place] DEPARTMENT OF VASCULAR SURGERY OUTPATIENT VISIT DATE May 31, 2023 OUTPATIENT VISIT TYPE CONSULTATION SERVICE DATE: 05/31/2023 SERVICE TIME: 10:12 AM PRIMARY CARE PHYSICIAN: Samson Ragsdale DO REFERRING PROVIDER: Samson Ragsdale [address] [facility] [address] Consult requested for an opinion regarding the [...] Xience stent to L circumflex EGD 04/26/[address] [facility] [address] Nolan Triana EGD TRANSORAL BIOPSY SINGLE/MULTIPLE 07/10/07 PAST SURGICAL HISTORY OF 01/26/08 stent placement ramus and prox ramus PAST SURGICAL HISTORY OF heart stents PROSTATECTOMY PERINEAL RADICAL 2000 Prostatectomy, radical- Dr. 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 Yousif Triana; next screening colonoscopy in 10yrs, [facility] UNLISTED DIAGNOSTIC GASTROENTEROLOGY PROCEDURE 06/06/2018 SOCIAL [...] (LIVER COMPLEX ORAL)^Take by mouth.^Disp: ^Rfl: Insulin Brighton, Disposable, (BD ULTRA-FINE BENNY PEN NEEDLE) 32 [...] Rash Pravastatin Other: See Comments muscle aches Xhwdnsx-Pdm-Fmh Red* Other: See Comments myalgia REVIEW OF [...] 2023 TIME: 10:12 AM documented in this encounterMarietta [facility] Clinic10-30-2023 Miscellaneous Notes* Telephone Encounter - Malu Galindo LPN - 05/30/2023 4:34 PM EDT Spoke with pt he states got these papers from [employer] here in [place] was told he needs to bring theseto [...] any updates. Thank you. documented in this encounterMarietta [facility]opathic Clinic10-28-2023 Note Discharge Instructions Thank you for allowing [facility] to assist you with your healthcare needs. The following is importantdischarge information regarding your hospital visit. Your Care Team SAMSON RAGSDALE DO What to do next Scheduled Follow-Up Appointments [facility] 07/05/2023 11:45 AM EST [facility] Follow Up Appointments Follow Up with PALOMO PETERSEN MD When In 2 weeks Where: [address] [place] [address]- Follow Up with [facility] When Why: THE [facility] DEPARTMENT WILL CONTACT YOU TO SCHEDULE YOU FOR PHASE 2. WE LEFT YOU A BROCHURE WITH INFORMATION ABOUT [facility], IF YOU HAVE ANY QUESTIONS PLEASE CALL [phone] Where: [facility] [address] [place] [phone]- The Following Activity and Diet Have Been [...] Duration: 90 Days Refills: 4 [facility] Changed amLODIPine (amLODIPine 5 mg oral tablet) 1 tab(s) by mouth Once a day Duration: 30 Days [facility] Changed aspirin ([facility] Aspirin 81 mg oral tablet, (chewable)) 1 tab(s) by mouth Once a day with a meal Duration: 90 Days [facility] Changed carvedilol (Coreg 6.25 mg oral tablet) 1 tab(s) by mouth Twice daily with meals Duration: 30 Days [facility] Changed clopidogrel (Plavix 75 mg oral tablet) 1 tab(s) by mouth Once a day Duration: 90 Days [facility] Changed losartan (losartan 25 mg oral tablet) 1 tab(s) by mouth Once a day Duration: 30 Days [facility] Unchanged allopurinol (allopurinol 100 mg [...] Chest pain Unchanged omega-3 polyunsaturated fatty acids ([place]-3 1000 mg oral capsule) by mouth Once a day Unchanged potassium chloride (potassium chloride 10 mEq oral capsule, extended release) 1 cap by mouth Every day take with food. Unchanged ubiquinone (Co Q-10 100 mg oral capsule) 1 cap by mouth Every day [facility]: [address] [place], [place] [id number] [phone] What How Much When Comments Stop Taking [...] pharmacies. Medication Leaflets amlodipine (am ELDA harris) yNdia Doss Norvasc What is the most important [...] may report side effects to FDA at 2-570-OUA-3862. What other drugs will affect amlodipine? Sometimes it is not safe to use certain medicines at the same time. Some drugs can affect your blood levels of other drugs you use, which may increase side effects or make the medicines less effective. Other drugs may affect amlodipine, including prescription and qahv-dry-chliwrs medicines, vitamins,and herbal products. Tell your doctor [...] to ensure that the information provided by [employer] ('[employer]') is accurate, up-to-date, and complete, but no guarantee is made to that effect. Drug information contained herein may be time sensitive. [facility] information has been compiled for use by healthcare practitioners and consumers in the [place] and therefore [facility] does not warrant that uses outside of the [place] are appropriate, unless specifically indicated otherwise. [employer] drug information does not endorse drugs, diagnose patients or recommend therapy. [employer] drug information isan informational resource designed to [...] effective or appropriate for any given patient. [facility] does not assume any responsibility for any aspect of healthcare administered with the aid of information [facility] provides. The information contained herein is not intended to cover all possible uses, directions, precautions, warnings, drug interactions, allergic reactions, or adverse effects. If you have questions about the drugs you are taking, check with your doctor, nurse or pharmacist. Copyright 5053-0435 [employer]. Version: 16.. Revision Date: 12/09/2022. clopidogrel (kloe [...] may report side effects to FDA at 8-849-HTX-5728. What other drugs will affect clopidogrel? Sometimes it is not safe to use certain medications at the same time. Some drugs can affect your blood levels of other drugs you take, which may increase side effects or make the medications less effective. Tell your doctor about all your other medicines, especially: a stomach acid law clerk such as omeprazole, Nexium, or Prilosec; an antidepressant such as citalopram, fluoxetine, sertraline, Cymbalta, Effexor, Lexapro, Pristiq, or Prozac; rifampin; a blood thinner--warfarin, Coumadin, Jantoven; or NSAIDs (nonsteroidal anti-inflammatory drugs)--aspirin, ibuprofen (Advil, Motrin), naproxen (Aleve), celecoxib, diclofenac, indomethacin, meloxicam, and others. This list is not complete. Other drugs may affect clopidogrel, including prescription and gktj-ygs-pxdgctq medicines, vitamins, and herbal products. Not all [...] to ensure that the information provided by [employer]. ('[facility]') is accurate, up-to-date, and complete, but no guarantee is made to that effect. Drug information contained herein may be time sensitive. [facility] information has been compiled for use by healthcare practitioners and consumers in the [place] and therefore [facility] does not warrant that uses outside of the [place] are appropriate, unless specifically indicated otherwise. [employer] drug information does not endorse drugs, diagnose patients or recommend therapy. [employer] drug information isan informational resource designed to [...] effective or appropriate for any given patient. [facility] does not assume any responsibility for any aspect of healthcare administered with the aid of information [facility] provides. The information contained herein is not intended to cover all possible uses, directions, precautions, warnings, drug interactions, allergic reactions, or adverse effects. If you have questions about the drugs you are taking, check with your doctor, nurse or pharmacist. Copyright 1333-2452 [employer], [facility]. Version: 18.. Revision Date: 10/29/2020. carvedilol [...] may report side effects to FDA at 4-618-FUY-9240. What other drugs will affect carvedilol? Sometimes it is not safe to use certain medications at the same time. Some drugs can affect your blood levels of other drugs you take, which may increase side effects or make the medications less effective. Other drugs may affect carvedilol, including prescription and tiws-dbt-kbfisin medicines, vitamins,and herbal products. Tell your doctor [...] to ensure that the information provided by [employer] ('[employer]') is accurate, up-to-date, and complete, but no guarantee is made to that effect. Drug information contained herein may be time sensitive. [facility] information has been compiled for use by healthcare practitioners and consumers in the [place] and therefore [facility] does not warrant that uses outside of the [place] are appropriate, unless specifically indicated otherwise. [employer] drug information does not endorse drugs, diagnose patients or recommend therapy. [employer] drug information isan informational resource designed to [...] effective or appropriate for any given patient. [facility] does not assume any responsibility for any aspect of healthcare administered with the aid of information [facility] provides. The information contained herein is not intended to cover all possible uses, directions, precautions, warnings, drug interactions, allergic reactions, or adverse effects. If you have questions about the drugs you are taking, check with your doctor, nurse or pharmacist. Copyright 7304-0931 [employer]. Version: 16.01. Revision Date: 11/23/2018. Education Materials [...] and water are not available, use hand gas scrubber operator. ? Change your dressing as told by [...] help you relax (sedative). General instructions Take hsav-gkt-wjcuvrj and prescription medicines only as told by [...] 03/21/2015 Document Revised: 07/31/2018 Document Reviewed: 07/31/2018 [employer] Patient Education 2020 [employer]. Coronary Angioplasty, Care After This sheet gives [...] Follow these instructions at home: Medicines Take bhft-zzy-qcizzas and prescription medicines only as told by [...] and water are not available, use hand gas scrubber operator. ? Change your dressing as told by [...] 02/03/2006 Document Revised: 06/30/2018 Document Reviewed: 02/20/2017 [employer] Patient Education 2020 [employer]. Additional Information VACCINATE! IT SAVES LIVES! Members of the community who have not yet received the COVID-19 vaccine and would like to receive it can visit one of [facility] vaccine clinics. There are many vaccine clinic locations within the [facility]. For locations and available times, please visit [email or web address].[place].gov/. It is important to note that some COVID mobile vaccine clinics are held outdoors and may be canceled in rainy or stormy conditions. To learn more about pediatric vaccinations (ages 5-11), we invite you to visit the [facility] webpage. [email or web address]/[email or web address]-Iwmqdwpwgcy-[email or web address]-[email or web address]-Plf stions.htmlTo learn more about the COVID-19 vaccine, we invite you to visit the CDC website for a list of frequently asked questions.https://www.cdc.gov/coronavirus/2019-ncov/vaccines/faq.html [employer] Patient Portal Access Instructions: Stay connected with your healthcare team and access your personal medical information anytime with the [employer] Patient Portal. Please follow the directions below to create your [employer] account: 1.Access the email account you provided upon registration to the hospital/physician office.2.Look for an invitation email from [facility].3.Open the email and access the invitation link: AcceptInvitation to [employer].4.Fill in the required alvarenga to create your account. To access your account, visit [employer]. Click the blue button labeled Access Patient [...] who you will allowto register on the [facility] for access to your information. You can also access the [facility] on the [facility] [employer] feng. Simply click on Patient Portal and then log into your account. If you would like to receive a full copy of your medical records, please contact the [facility] Medical Records Department by calling [phone], Tuesday through Tuesday between 8 a.m. and [...] Call your local pharmacy or go to [email or web address] to find one close to you.3.Make use of household items: Use cat litter or old coffee grounds to dispose medications if other options arenot available. Mix your drugs with these household products, seal them in an airtight container andthrow it into the garbage. Call [place]: [phone] to be sure your drugs can be [...] aware that I should contact my doctor. Patient/Residential Monitor Signature: Date/Time: Relationship to Patient: Witness Name/Signature: Date/Time: [facility]Cgnfgrjt51-41-3349 Hospital Discharge instructions Patient Education 05/28/2023 12:13:36 [...] and water are not available, use hand gas scrubber operator. ?Change your dressing as told by your [...] help you relax (sedative). General instructions Take dlyg-hfi-hknnskz and prescription medicines only as told by [...] 03/21/2015 Document Revised: 07/31/2018 Document Reviewed: 07/31/2018 [employer] Patient Education 2020 [employer]. 05/28/2023 12:12:58 Coronary Angioplasty, Care After Coronary [...] Follow these instructions at home: Medicines Take pkxg-obi-ptcvpqd and prescription medicines only as told by [...] and water are not available, use hand gas scrubber operator. ?Change your dressing as told by your [...] 02/03/2006 Document Revised: 06/30/2018 Document Reviewed: 02/20/2017 [employer] Patient Education 2020 [employer]. Follow Up Care 05/23/2023 14:14:05 With:PALOMO PETERSEN MD Address: [address] [facility] [place] [address]- When:Within 2 Week(s) With:[facility] Address: [facility] [address] [place] [address]- When: Unknown Comments:THE CARD[facility] REHAB DEPARTMENT WILL CONTACT YOU TO SCHEDULE YOU FOR PHASE 2. WE LEFT YOU A BROCHURE WITH INFORMATION ABOUT [facility]ARD[facility] REH[facility], IF YOU HAVE ANY QUESTIONS PLEASE CALL [phone] [facility] 10-28-2023 Discharge summary Date of Service 05/28/2023 Discharge Diagnosis 1.CAD 2.positive stress test [at [facility]] Patient presented for elective cardiac cath for [...] hydration because of positive stress test at [facility]. Allergies Motrin (unknown) Naprosyn Consults No qualifying [...] pain. Refills: 3. omega-3 polyunsaturated fatty acids (Brentwood-3 1000 mg oral capsule)by mouth once a [...] IF YOU HAVE ANY QUESTIONS PLEASE CALL [phone] Where: [facility] [address] [place] [address]- Follow Up Appointments No qualifying data available. [...] MD [facility]Xjxsiyce38-21-0445 Cardiology Progress note Date of Service 08/28/2022 [...] hydration because of positive stress test at [facility]. Objective Vitals and Measurements T: 36.8 C [...] hrs post contrast 1 EA, Miscellaneous, Unscheduled isxhz-7-gznh ethyl esters 1000 mg capsule 1,000 mg [...] Nursing Assessment/Plan 1.CAD 2.positive stress test [at [facility]] Patient presented for elective cardiac cath for [...] MD [id number] Cardiology Progress note Subjective No acute overnight [...] hrs post contrast 1 EA, Miscellaneous, Unscheduled bykww-1-tftu ethyl esters 1000 mg capsule 1,000 mg [...] PM [facility] NorthDdyusgap09-70-4359 Cardiology Progress note Subjective No acute overnight [...] hrs post contrast 1 EA, Miscellaneous, Unscheduled kjond-6-edmr ethyl esters 1000 mg capsule 1,000 mg [...] PM [facility] [id number] NoteSINUS RHYTHM BORDERLINE T WAVE ABNORMALITIES Electronic Signature: GUILLERMO NUGENT MD 05/28/2023 14:06:54[facility] 10-27-2023 Note* Exam Date Time Procedure Performing Provider Status 05/27/23 8:18 AM Percut Transluminal Coronary Angioplasty Auth (Verified) [facility] 10-26-2023 Cardiology Progress note Date of Service [...] tablet 25 mg 1 tab(s), Oral, qDay wqpdv-6-zcrl ethyl esters 1000 mg capsule 1,000 mg [...] 05:18 PM [facility] NorthEnexqlpn48-47-1844 Cardiology Progress note Date of Service 05/26/2023 [...] tablet 25 mg 1 tab(s), Oral, qDay gqpof-7-rqsu ethyl esters 1000 mg capsule 1,000 mg [...] 05:18 PM [facility] NorthJlfsgehp61-48-3567 NoteSINUS RHYTHM BORDERLINE T WAVE ABNORMALITIES Electronic Signature: SILVANA TORRES MD 05/27/2023 09:28:13[facility] 10-25-2023 Note* Exam Date Time Procedure Performing Provider Status 05/25/23 2:46 PM Cardiac Catheterization -CV Auth (Verified) [facility] 10-25-2023 History and physical note Date of [...] direct admit for IV hydration prior to [facility]. Patient is known to Dr. Petersen, has been complaining of a lot of shortness of breath, stress test done at [facility] revealed abnormal LV systolic function as well [...] due to worsening BRAND, admitted for elective [facility] s/p IV hydration overnight. Noted to have abnormal stress test result with moderate sized kendra-infarct ischemia at [place] as per office notes. Plan for [facility] today, NPO for procedure. Resumed home Coreg, losartan, amlodipine at lower doses given soft BP readings overnight, can uptitrate as tolerated. Continue isosorbide mononitrate 30mgqdaily. Continue all other chronic home medications. Discussed with Dr. Acharya Problem List/Past Medical History Ongoing Acid reflux Arthritis Back pain CAD IN [place] CKD (chronic kidney disease), stage IV [...] mg = 1 tab(s), PRN, Sublingual, q5min Brentwood-3 1000 mg oral capsule , Oral, qDay [...] 09:26 AM [facility]Mqlcbzrd05-09-6793 Evaluation + Plan noteExtracted from: Title:History and Physical Author:CARMEN DENNIS MD Date:05/25/23 Dyspnea on exertion CAD status post CABG 1994, PCI to left main& diagonal, RCA & ramus 2007, left circumflex 2012 CKD stage IV Hypertension Hyperlipidemia Patient presented as a direct admit due to worsening BRAND, admitted for elective [facility] s/p IV hydration overnight. Noted to have abnormal stress test result with moderate sized kendra-infarct ischemia at [place] as per office notes. Plan for [facility] today, NPO for procedure. Resumed [...] 05/19/23 [facility] 10-25-2023 History and physical note Date of [...] direct admit for IV hydration prior to [facility]. Patient is known to Dr. Petersen, has been complaining of a lot of shortness of breath, stress test done at [facility] revealed abnormal LV systolic function as well [...] due to worsening BRAND, admitted for elective [facility] s/p IV hydration overnight. Noted to have abnormal stress test result with moderate sized kendra-infarct ischemia at [place] as per office notes. Plan for [facility] today, NPO for procedure. Resumed home Coreg, losartan, amlodipine at lower doses given soft BP readings overnight, can uptitrate as tolerated. Continue isosorbide mononitrate 30mgqdaily. Continue all other chronic home medications. Discussed with Dr. Acharya Problem List/Past Medical History Ongoing Acid reflux Arthritis Back pain CAD IN [place] CKD (chronic kidney disease), stage IV [...] mg = 1 tab(s), PRN, Sublingual, q5min Brentwood-3 1000 mg oral capsule , Oral, qDay [...] 09:26 AM [facility] [id number] NoteSINUS RHYTHM PROBABLE LEFT ATRIAL ENLARGEMENT Electronic Signature: SILVANA TORRES MD 05/26/2023 21:16:31[facility] 10-11-2023 Miscellaneous Notes* Telephone Encounter - Camille Harper RN - 05/11/2023 10:40 AM EDT Spoke to Dr. Petersen's nurse. Stress test results faxed to [phone] per request along with most recent EKG and ECHO. Appointment with Dr. Petersen scheduled first available for May 19 at 215 pm in the [place] Office. Call placed to patient and notified of abnormal tress test results and follow up appointment with Dr. Petersen on May 19 at 215 pm. Patient verbalizes understanding and will follow up on the with Dr. Petersen. Camille Harper RN * Telephone Encounter - Stephanie Hayes MA - 05/11/2023 8:22 AM EDT Phone call to [facility] to facilitate appointment and obtain fax number tosend most recent stress test. LM for Dr. Petersen's nurse to contact office for the following: - Pt had abnormal lexiscan on 05/09/23 showing mild ischemia in the LCX and moderate fixed perfusiondefect is same territory. -Dr. Mandel would like patient to be seen in the next week by his 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 - Please ask for fax number so that we can fax testing. Stephanie Hayes MA * Telephone Encounter - Dudley Mandel MD - 05/09/2023 2:09 PM EDT Called and spoke with Dr. Morgan regarding mild ischemia in LCX and miderate fixed perfusion defect in same territory. Recommended he be evaluated in the next week by his 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 Looks like he was seen in September by Dr. Petersen. Please fax results to patient's first press operator's office and assist with scheduling OV for [...] but needs follow up. His phone # [phone]. Malika Meier RN documented in this encounterMari[facility]10-09-2023 History of Present illness Narrative* Olga Cobb [...] Olga Cobb RN Reversal agent used:None LOT [id number] EXP 08/01/26 IV SITE: IV palced by nuclear tecnologist POST EXAM PIV STATUS: Discontinued by Keg Raiser PATIENT DISCHARGED TO: Nuclear Medicine Department for post stress imaging A Diagnostic radioactive procedure has taken place, with no further precautions necessary other than routine body substance precautions. More information regarding radiation safety can be found usingthis link: [email or web address]%20Medicine%[email or web address] SIGNATURE: Olga Cobb RN PATIENT NAME:Alejo Gage DATE: 05/09/23 TIME: 10:48 AM documented in this encounterMarietta Osteopathic Clinic10-09-2023 History of Present illness Narrative* [facility] [...] Discontinued PROCEDURE TYPE: NM Stress: 8.4 mCi Ml64t-Tmmwrpu was administered IV for Rest Imaging at 08:[address] [place]. 26.5 mCi Js62u-Sncvono was administered IV for Stress Imaging at [...] 1:52 PM PAGER/CONTACT #: documented in this encounterMarietta Osteopathic Clinic08-25-2023 Miscellaneous Notes* Telephone Encounter - Marina Connor Ma - 03/25/2023 12:59 PM EDT Notified. Marina Connor Ma * Telephone Encounter - Malu Galindo LPN - 03/24/2023 11:05 AM EDT Left message to return call. * Telephone Encounter - Samson Ragsdale DO - 03/24/2023 10:29 AM EDT Please inform patient that his CXR is normal Samson Ragsdale DO documented in this encounterMarietta Osteopathic Clinic08-23-2023 History of Present illness Narrative* Samson Ragsdale [...] 100 lbs or greater [place] the [place]. No recent injuries. Use of ice [...] Xience stent to L circumflex EGD 04/26/[address] [facility] [address] Nolan Triana EGD TRANSORAL BIOPSY SINGLE/MULTIPLE 07/10/07 PAST SURGICAL HISTORY OF 01/26/08 stent placement ramus and prox ramus PAST SURGICAL HISTORY OF heart stents PROSTATECTOMY PERINEAL RADICAL 2000 Prostatectomy, radical- Dr. 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 Yousif Triana; next screening colonoscopy in 10yrs, [facility] UNLISTED DIAGNOSTIC GASTROENTEROLOGY PROCEDURE 06/06/2018 Social [...] Rash Pravastatin Other: See Comments muscle aches Hdlrzcf-Ypf-Rms Red* Other: See Comments myalgia Current Meds: [...] (LIVER COMPLEX ORAL)^Take by mouth.^Disp: ^Rfl: Insulin [place], Disposable, (BD ULTRA-FINE BENNY PEN NEEDLE) 32 [...] he can then also follow up with Flight Control Tower Operator as well. Will go to EMERGENCY DEPARTMENT [...] he can then also follow up with Flight Control Tower Operator as well. Will go to EMERGENCY DEPARTMENT [...] he can then also follow up with Flight Control Tower Operator as well. Will go to EMERGENCY DEPARTMENT [...] disease, with long-term current use of insulin ([facility]) - ICD9: 250.40, 585.4, V58.67, ICD10: E11.22, [...] sodium diet 7. Malignant neoplasm of prostate ([facility]) - ICD9: 185, ICD10: C61 Hx of, PSA has been negative 8. 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 Samson Ragsdale DO [address] [place] [address] documented in this encounterMarietta Osteopathic Clinic08-07-2023 Miscellaneous Notes* Telephone Encounter - Rama Belcher LPN - 03/07/2023 4:54 PM EDT Pt. informed. * Telephone Encounter - Desirae Irving APRN.CNP - 03/07/2023 3:58 PM EDT Lab orders are placed. Please make pt aware. Thank you, Desirae Irving APRN.WATER ATTENDANT * Telephone Encounter - Lorraine Szymanski - 03/07/2023 2:11 PM EDT Patient is requesting lab orders for upcoming appointment documented in this encounterMarietta Osteopathic Clinic07-05-2023 Miscellaneous Notes* Telephone Encounter - Malu Galindo [...] advise. Stephania Alan Pss documented in this encounterMarietta Osteopathic Clinic05-02-2023 History of Present illness Narrative* Tonny Nieves, MICHI.WATER ATTENDANT - 11/30/2022 12:36 PM EDT Subjective HPI [...] Xience stent to L circumflex EGD 04/26/[address] [facility] [address] Nolan Triana EGD TRANSORAL BIOPSY SINGLE/MULTIPLE 07/10/07 PAST SURGICAL HISTORY OF 01/26/08 stent placement ramus and prox ramus PAST SURGICAL HISTORY OF heart stents PROSTATECTOMY PERINEAL RADICAL 2000 Prostatectomy, radical- Dr. 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 Yousif Triana; next screening colonoscopy in 10yrs, [facility] UNLISTED DIAGNOSTIC GASTROENTEROLOGY PROCEDURE 06/06/2018 ALLERGIES Atorvastatin, Crestor [Rosuvastatin Calcium], Glucosamine, Motrin [Ibuprofen], Pravastatin, and Vvxtetg-Nko-Hfy Reductase Inhibitors MEDICATIONS insulin glargine (BASAGLAR KWIKPEN [...] (LIVER COMPLEX ORAL) Take by mouth. Insulin Brighton, Disposable, (BD ULTRA-FINE BENNY PEN NEEDLE) 32 [...] TABLET Tonny Nieves APRN.JAIRON documented in this encounterMarietta Osteopathic Clinic03-29-2023 Miscellaneous Notes* Telephone Encounter - Lorraine Saravia [...] you. Lorraine Saravia RN documented in this encounterMarietta Osteopathic Clinic03-11-2023 Miscellaneous Notes* Telephone Encounter - Yeimy Arboleda [...] in diameter of aneurysm. documented in this encounterMarietta Osteopathic Clinic02-24-2023 Miscellaneous Notes* Telephone Encounter - Gertrudis Wang [...] of Last Labs: 09/13/2022 documented in this encounterMarietta Osteopathic Clinic02-23-2023 History of Present illness Narrative* Samson Ragsdale DO - 09/23/2022 11:19 AM EST Patient presents with: F/U 3 Month HPI: Alejo Gage is a 82 year old male who presents to the office today for review of health conditions. Concerns today: CKD stage 3-4, has seen Dr. Quinteros Rn Document Improvement Specialist in the last 1-2 years. Was told [...] without mention of hemorrhage 04/26/2017 [facility] Advance care planning 03/24/2022 [place] can help [...] Xience stent to L circumflex EGD 04/26/[address] [facility] [address] Nolan Triana EGD TRANSORAL BIOPSY SINGLE/MULTIPLE 07/10/07 PAST SURGICAL HISTORY OF 01/26/08 stent placement ramus and prox ramus PAST SURGICAL HISTORY OF heart stents PROSTATECTOMY PERINEAL RADICAL 2000 Prostatectomy, radical- Dr. 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 Yousif Triana; next screening colonoscopy in 10yrs, [facility] UNLISTED DIAGNOSTIC GASTROENTEROLOGY PROCEDURE 06/06/2018 Social [...] Rash Pravastatin Other: See Comments muscle aches Kffmhzr-Nii-Xcu Red* Other: See Comments myalgia Current Meds: [...] (LIVER COMPLEX ORAL) Take by mouth. Insulin [place], Disposable, (BD ULTRA-FINE BENNY PEN NEEDLE) 32 [...] ICD10: I25.10, I25.83 Recheck US, f/u with Flight Control Tower Operator - US ABD [facility] - US CAROTID ARTERIES [facility] 7. Stenosis of left carotid artery - ICD9: 433.10, ICD10: I65.22 Recheck US, f/u with specialist - US CAROTID ARTERIES [facility] 8. CKD (chronic kidney disease) stage 4, GFR 15-29 ml/min ([facility]) - ICD9: 585.4, ICD10: N18.4 - eGFR: [...] with more than 50% of the total oovz-mt-zgec time of the visit in counseling / coordination of care. To ER if develops chest pain, shortness of breath, or severe worsening of symptoms. Discussed risks, benefits, alternatives, and potential side effects of medications. Patient expressed understanding and agreed with the plan. Samson Ragsdale DO [address] [place] [address] documented in this encounterMarietta Osteopathic Clinic01-06-2023 Miscellaneous Notes* Telephone Encounter - Camille Harper [...] diagnoses. Camille Harper RN documented in this encounterMarietta Osteopathic Clinic12-28-2022 History of Present illness Narrative* Jocelin Lange PA-C - 07/28/2022 12:53 PM EST This note was created using [employer]. Subjective Alejo Gage is a 82 year [...] has tried plain Mucinex and Mucinex sinus nhgu-fkf-slvngzu. Review of Systems Constitutional: Negative for fever. HENT: Positive for congestion and postnasal drip. Respiratory: Positive for cough and shortness of breath. Negative for wheezing. Cardiovascular: Negative. Gastrointestinal: Negative. Genitourinary: Negative. Musculoskeletal: Negative. All other systems reviewed and are negative. 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 09/2015 4.15 cm Acute gastritis without mention of hemorrhage 04/26/2017 EGD by [facility] Advance care planning 03/24/2022 [place] can help with medical decision making AMI (acute myocardial infarction) (HCC) 07/03/2013 Carotid atherosclerosis 05/2014 CKD stage G3b/A2, GFR 30-44 and albumin creatinine ratio 30-299 mg/g ([facility]) AVOID NEPHROTOXIC MEDICATIONS Diabetes mellitus type 2, [...] (LIVER COMPLEX ORAL) Take by mouth. Insulin [place], Disposable, (BD ULTRA-FINE BENNY PEN NEEDLE) 32 [...] Xience stent to L circumflex EGD 04/26/[address] [facility] [address] Nolan Triana EGD TRANSORAL BIOPSY SINGLE/MULTIPLE 07/10/07 PAST SURGICAL HISTORY OF 01/26/08 stent placement ramus and prox ramus PAST SURGICAL HISTORY OF heart stents PROSTATECTOMY PERINEAL RADICAL 1999 Prostatectomy, radical- Dr. 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 Yousif Triana; next screening colonoscopy in 10yrs, [facility] UNLISTED DIAGNOSTIC GASTROENTEROLOGY PROCEDURE 06/06/2018 FAMILY [...] LIQUID Jocelin Lange PA-C [facility] Miscellaneous Notes* Telephone Encounter - Jose Noel [...] you. Jose Noel RN documented in this encounterM[facility]09-22-2022 Miscellaneous Notes* Telephone Encounter - Jose Noel [...] you. Jose Noel RN documented in this encounterM[facility]08-23-2022 Instructions* Patient Instructions* Samson Ragsdale DO - 03/23/2022 3:16 PM EDT Increase dose of amlodipine to 10 mg in the evening for blood pressure. documented in this encounterM[facility]08-23-2022 History of Present illness Narrative* Samson Ragsdale, [...] Xience stent to L circumflex EGD 04/26/[address] [facility] [address] Nolan Triana EGD TRANSORAL BIOPSY SINGLE/MULTIPLE 07/10/07 PAST SURGICAL HISTORY OF 01/26/08 stent placement ramus and prox ramus PAST SURGICAL HISTORY OF heart stents PROSTATECTOMY PERINEAL RADICAL 1999 Prostatectomy, radical- Dr. 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 Yousif Triana; next screening colonoscopy in 10yrs, [facility] UNLISTED DIAGNOSTIC GASTROENTEROLOGY PROCEDURE 06/06/2018 Social [...] Rash Pravastatin Other: See Comments muscle aches Kyueupc-Tyd-Iml Red* Other: See Comments myalgia Current Meds: [...] (LIVER COMPLEX ORAL) Take by mouth. Insulin [place], Disposable, (BD ULTRA-FINE BENNY PEN NEEDLE) 32 [...] complication, without long-term current use of insulin ([facility]) - ICD9: 250.00, ICD10: E11.9 (primary diagnosis) [...] kidney disease) stage 4, GFR 15-29 ml/min ([facility]) - ICD9: 585.4, ICD10: N18.4 - f/u with Rn Document Improvement Specialist, hx of IV dye years ago with [...] agreed with the plan. Samson Ragsdale DO [address] [place] [address] documented in this encounterM[facility]06-15-2022 Miscellaneous Notes* Telephone Encounter - Camille Harper [...] you. Camille Harper RN documented in this encounterM[facility]05-06-2022 Miscellaneous Notes* Telephone Encounter - Rama Belcher [...] on 12/15 with PCP. documented in this encounterMari[facility]02-18-2021 History of Present illness Narrative* Abiola Hall [...] 18, 2020 3:04 PM documented in this encounterM[facility]11-09-2020 History of Present illness Narrative* Suzette Triplett [...] 09, 2020 3:33 PM documented in this encounterM[facility]11-[facility]-2020 History of Past illness Narrative* Problem Noted [...] of this encounter (statuses as of 09/23/2022) [facility] of [facility] illness Narrative* Problem Noted [...] of this encounter (statuses as of 09/24/2022) [facility] of [facility] Narrative* Problem Noted [...] of this encounter (statuses as of 10/09/2022) [facility] of [facility] Narrative* Problem Noted [...] of this encounter (statuses as of 10/27/2022) [facility] Narrative* Problem Noted [...] of this encounter (statuses as of 11/30/2022) [facility] Narrative* Problem Noted [...] of this encounter (statuses as of 02/02/2023) [facility] Narrative* Problem Noted [...] of this encounter (statuses as of 03/08/2023) [facility] Narrative* Problem Noted [...] of this encounter (statuses as of 03/24/2023) [facility] Narrative* Problem Noted [...] of this encounter (statuses as of 03/25/2023) [facility] Narrative* Problem Noted [...] of this encounter (statuses as of 05/09/2023) [facility] Narrative* Problem Noted [...] of this encounter (statuses as of 05/16/2023) [facility] Narrative* Problem Noted [...] of this encounter (statuses as of 06/01/2023) [facility] Narrative* Problem Noted [...] of this encounter (statuses as of 06/05/2023) [facility] Narrative* Problem Noted [...] of this encounter (statuses as of 06/05/2023) [facility] Narrative* Problem Noted [...] of this encounter (statuses as of 06/21/2023) [facility] Narrative* Problem Noted [...] of this encounter (statuses as of 2023) [facility] Narrative* Problem Noted [...] of this encounter (statuses as of 07/21/2023) [facility] Narrative* Problem Noted [...] of this encounter (statuses as of 09/19/2023) [facility] Narrative* Problem Noted [...] of this encounter (statuses as of 10/07/2023) [facility] Narrative* Problem Noted [...] of this encounter (statuses as of 10/24/2023) [facility] Narrative* Problem Noted [...] of this encounter (statuses as of 11/15/2023) [facility] Narrative* Problem Noted [...] of this encounter (statuses as of 10/04/2023) [facility] Narrative* Problem Noted [...] of this encounter (statuses as of 12/04/2021) [facility] Narrative* Problem Noted [...] of this encounter (statuses as of 01/13/2022) [facility] Narrative* Problem Noted [...] of this encounter (statuses as of 03/25/2022) [facility] Narrative* Problem Noted [...] of this encounter (statuses as of 04/22/2022) [facility] Narrative* Problem Noted [...] of this encounter (statuses as of 06/10/2022) [facility] Narrative* Problem Noted [...] of this encounter (statuses as of 08/03/2022) [facility] Narrative* Problem Noted [...] of this encounter (statuses as of 08/06/2022) [facility] Diagnosis Controlled type 2 diabetes mellitus [...] iron deficiency anemia documented [facility] encounter [facility]* Diagnosis Gout of multiple sites, unspecified cause, unspecified chronicity documented in this encounter [facility]* Diagnosis CKD (chronic kidney disease) stage 4, GFR 15-29 ml/min (HCC) Chronic kidney disease, Stage IV (severe) Hypertensive heart disease without heart failure Unspecified hypertensive heart disease without heart failure [facility] Diagnosis Bronchitis- Primary Bronchitis, not specified as acute or chronic [facility] Diagnosis CKD (chronic kidney disease) stage [...] neoplasm of prostate [facility] Diagnosis Controlled type 2 diabetes mellitus [...] arthropathy, multiple sites [facility] Diagnosis 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, with long-term current use of insulin (HCC)- Primary documented [facility] encounter [facility]* Diagnosis Sinobronchitis- Primary Unspecified sinusitis (chronic) documented in this encounter [facility]* Diagnosis Gout of multiple sites, unspecified cause, unspecified chronicity [facility] Diagnosis Essential hypertension, benign- Primary CKD (chronic kidney disease) stage 4, GFR 15-29 ml/min (HCC) Chronic kidney disease, Stage IV (severe) 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, with long-term current use of insulin ([facility]) [facility]* Diagnosis SOB (shortness of breath)- Primary [...] (HCC) Malignant neoplasm of prostate 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) Other polyneuropathy Essential hypertension, benign Gout of multiple sites, unspecified cause, unspecified chronicity Arthritis, multiple joint involvement Unspecified arthropathy, multiple sites Vitamin D deficiency Unspecified vitamin D deficiency CKD (chronic kidney disease) stage 4, GFR 15-29 ml/min (HCC) Chronic kidney disease, Stage IV (severe) [facility]* Diagnosis Screening for ischemic heart disease- Primary [facility] encounter [facility]* Diagnosis SOB (shortness of breath) Shortness of breath Coronary artery 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 rich plaque Chest pain on breathing Painful respiration [facility] Diagnosis Bilateral carotid artery stenosis- Primary Occlusion and stenosis of carotid artery without mention of cerebral infarction Infrarenal abdominal aortic aneurysm (AAA) without rupture ([facility]) [facility] Diagnosis Hypertensive heart disease without heart failure Unspecified hypertensive heart disease without heart failure [facility]* Diagnosis Type 2 diabetes mellitus with stage 4 chronic kidney disease, with long-term current use of insulin (HCC)- Primary Malignant neoplasm of prostate (HCC) Malignant neoplasm of prostate Essential hypertension, benign History of prostate cancer Personal history of malignant neoplasm of prostate documented [facility] encounter [facility] Diagnosis CKD (chronic kidney disease) stage [...] current use of insulin (HCC) 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) Coronary artery [...] of insulin (HCC) [facility] Diagnosis 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, with long-term current use of insulin (HCC)- Primary Essential hypertension, benign [facility]* Diagnosis Chronic diarrhea- Primary Diarrhea Generalized abdominal pain Abdominal pain, generalized Other polyneuropathy Hypertensive kidney disease with chronic kidney disease stage IV (HCC) Unspecified hypertensive kidney disease with chronic kidney disease stage I through stage IV, or unspecified Essential hypertension, benign 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) Abdominal aortic aneurysm (AAA) without rupture, unspecified part (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, with long-term current use of insulin (HCC) Arthritis, multiple joint involvement Unspecified arthropathy, multiple sites Stage 3b chronic kidney disease (HCC) [facility] Diagnosis Gout of multiple sites, unspecified cause, unspecified chronicity [facility] Diagnosis 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, with long-term current use of insulin ([facility]) [facility] Diagnosis Gastroesophageal reflux disease without esophagitis- Primary Esophageal reflux Chronic diarrhea Diarrhea Generalized abdominal pain Abdominal pain, generalized [facility]* Diagnosis SOB (shortness of breath) Shortness of breath Coronary artery 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 rich plaque Chest pain on breathing Painful respiration 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 Bilateral chronic knee pain Pain in joint, lower leg [facility]* Diagnosis Hypertensive heart disease without heart failure Unspecified hypertensive heart disease without heart failure [facility] Diagnosis Cough [facility] Diagnosis Pain of left scapula Disorder of bone and cartilage, unspecified Neck pain of over 3 months duration [facility] Diagnosis Cough documented in this encounter [facility] note* Diagnosis Pre-operative examination- Primary Preoperative examination, unspecified Other polyneuropathy Abdominal aortic aneurysm (AAA) without rupture, unspecified part (HCC) 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 Pt has no h/o pacemaker/defibrillator. 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 Following [facility] routinely. Last OV scanned into epic2023 and AC instructions and clearance scanned into [facility] as well 04/16/2024 * Assessment & Plan [...] DM, no tx documented [facility] this encounter [facility] Diagnosis Bilateral carotid artery stenosis- Primary Occlusion and stenosis of carotid artery without mention of cerebral infarction Infrarenal abdominal aortic aneurysm (AAA) without rupture (HCC) documented in this encounter [facility] note* Diagnosis Pre-operative examination- Primary Preoperative examination, unspecified Other polyneuropathy Abdominal aortic aneurysm (AAA) without rupture, unspecified part (HCC) 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) Complete atrioventricular [...] esophagitis Esophageal reflux documented in this encounter [facility] note* Diagnosis Pre-operative examination- Primary Preoperative examination, unspecified Other polyneuropathy Abdominal aortic aneurysm (AAA) without rupture, unspecified part (HCC) 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) Complete atrioventricular [...] gastroenteritis and colitis documented in this encounter [facility] note* Diagnosis Pre-operative examination- Primary Preoperative examination, unspecified Other polyneuropathy Abdominal aortic aneurysm (AAA) without rupture, unspecified part (HCC) 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) Complete atrioventricular [...] gastroenteritis and colitis documented in this encounter [facility] note* Diagnosis Pre-operative examination- Primary Preoperative examination, unspecified Other polyneuropathy Abdominal aortic aneurysm (AAA) without rupture, unspecified part (HCC) 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) Complete atrioventricular [...] neoplasm of prostate documented in this encounter [facility] note* Diagnosis Pre-operative examination- Primary Preoperative examination, unspecified Other polyneuropathy Abdominal aortic aneurysm (AAA) without rupture, unspecified part (HCC) 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) Complete atrioventricular [...] sites, unspecified cause, unspecified chronicity 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) Pure hypercholesterolemia Vitamin D deficiency Unspecified vitamin D deficiency documented in this encounter [facility] note* Diagnosis Pre-operative examination- Primary Preoperative examination, unspecified Other polyneuropathy Abdominal aortic aneurysm (AAA) without rupture, unspecified part 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 [...] of insulin (HCC) [facility] Diagnosis Pre-operative examination- Primary Preoperative examination, unspecified Other polyneuropathy Abdominal aortic aneurysm (AAA) without rupture, unspecified part 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 [...] Upper back pain [facility] this [facility] Diagnosis Pre-operative examination- Primary Preoperative examination, unspecified Other polyneuropathy Abdominal aortic aneurysm (AAA) without rupture, unspecified part 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 Hypertensive kidney disease with chronic kidney disease stage IV (HCC) Unspecified hypertensive kidney disease with chronic kidney disease stage I through stage IV, or unspecified Stented coronary artery Postsurgical percutaneous transluminal coronary angioplasty status Dysphagia, unspecified type Vision changes Unspecified visual disturbance [facility] this encounter [facility] Diagnosis Pre-operative examination- Primary Preoperative examination, unspecified Other polyneuropathy Abdominal aortic aneurysm (AAA) without rupture, unspecified part 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 [...] of cerebral infarction [facility] this [facility] Diagnosis Pre-operative examination- Primary Preoperative examination, unspecified Other polyneuropathy Abdominal aortic aneurysm (AAA) without rupture, unspecified part 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 [...] the nervous system documented in this encounter [facility]* Diagnosis Pre-operative examination- Primary Preoperative examination, unspecified Other polyneuropathy Abdominal aortic aneurysm (AAA) without rupture, unspecified part 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 [...] Cerebrovascular disease, unspecified documented in this encounter [facility] Diagnosis Pre-operative examination- Primary Preoperative examination, unspecified Other polyneuropathy Abdominal aortic aneurysm (AAA) without rupture, unspecified part 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 [...] Dysphagia, unspecified type documented [facility] this encounter [facility]* Diagnosis Pre-operative examination- Primary Preoperative examination, unspecified Other polyneuropathy Abdominal aortic aneurysm (AAA) without rupture, unspecified part 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 [...] gravis without exacerbation documented [facility] this encounter [facility] Diagnosis Pre-operative examination- Primary Preoperative examination, unspecified Other polyneuropathy Abdominal aortic aneurysm (AAA) without rupture, unspecified part 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 [...] gravis without exacerbation [facility] Diagnosis Pre-operative examination- Primary Preoperative examination, unspecified Other polyneuropathy Abdominal aortic aneurysm (AAA) without rupture, unspecified part 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 [...] gravis without exacerbation [facility] Diagnosis Pre-operative examination- Primary Preoperative examination, unspecified Other polyneuropathy Abdominal aortic aneurysm (AAA) without rupture, unspecified part 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 No acute cause for your shortness of breath. Follow-up with your 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[facility] Work Phone: Reason for referral (narrative)* [...] ART COMPL BI STUDY Samson Ragsdale DO [address] [place] [address] [facility] [address] [place] [id number] Referral ID Status Reason Start Date Expiration Date Visits Requested Visits Authorized [id number] Authorized [employer] ed Referral 09/22/2022 09/22/2023 1 [...] IVC ILIAC VASCL/BPGS COMPLETE Samson Ragsdale DO [address] [place] [address] [facility] [place] [address] [place] [address] Referral ID Status Reason Start Date Expiration Date Visits Requested Visits Authorized [id number] Authorized Auto-Generat ed Referral 09/22/2022 09/22/2023 1 1 [facility] for referral (narrative)* Outpatient Procedure (Routine) - Authorized Specialty Diagnoses / Procedures Referred By Contac t Referred To Contact [facility] [place] Diagnoses SOB (shortness of breath) Coronary artery 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 rich plaque Chest pain on breathing Procedures ECG COMPLETE ECG ROUTINE ECG W/LEAST 12 LDS W/I&R Samson Ragsdale DO [address] [place] [address] [facility] [place] [address] [place] [address] Referral ID Status Reason Start Date Expiration Date Visits Requested Visits Authorized [id number] Authorized Auto-Generat ed Referral 03/23/2023 03/22/2024 1 1 * Diagnostic Procedure Only (Routine) - Closed Specialty Diagnoses / Procedures Referred By Contac t Referred To Contact XR IMAGING Diagnoses Bilateral chronic knee pain Procedures XR KNEE GENERAL 4V AP BOTH/PA BOTH/LAT/MERC BILATERAL RADIOLOGIC EXAM KNEE COMPLETE 4/MORE VIEWS Samson Ragsdale DO [address] [place] [address] [place] [address] Referral ID Status Reason Start Date Expiration Date V isits Requested Visits Authorized [id number] Closed Auto-Generate d Referral 03/23/2023 04/21/2024 1 1 * Diagnostic Procedure Only (Routine) - Closed Specialty Diagnoses / Procedures Referred By Contac t Referred To Contact XR IMAGING Diagnoses 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 Procedures XR LUMBAR GENERAL 3V AP/LAT/L5-S1 RADEX SPINE LUMBOSACRAL 2/3 VIEWS Samson Ragsdale DO [address] [place] [address] [place] [address] Referral ID Status Reason Start Date Expiration Date V isits Requested Visits Authorized [id number] Closed Auto-Generate d Referral 03/23/2023 04/21/2024 1 1 * Diagnostic Procedure Only (Routine) - Authorized Specialty Diagnoses / Procedures Referred By Contac t Referred To Contact MOLECULAR & FUNCTIONAL IMAGING Diagnoses SOB (shortness of breath) Coronary artery 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 rich plaque Chest pain on breathing Procedures NM CARDIAC PERF STRESS/PHARM MYOCARDIAL SPECT MULTIPLE STUDIES Samson Ragsdale DO [address] [place] [address] [facility] [address] [place] [address] Referral ID Status Reason Start Date Expiration Date Visits Requested Visits Authorized [id number] Authorized Auto-Generat ed Referral 03/23/2023 04/21/2024 1 1 * Outpatient Procedure (Routine) - Authorized Specialty Diagnoses / Procedures Referred By Contac t Referred To Contact [facility] Diagnoses SOB (shortness of breath) Coronary artery 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 rich plaque Chest pain on breathing Procedures ECHO ECHO TTHRC R-T 2D W/WOM-MODE COMPL SPEC&COLR D Samson Ragsdale DO [address] [place] [address] [facility] [place] [address] [place] [address] Referral ID Status Reason Start Date Expiration Date Visits Requested Visits Authorized [id number] Authorized Auto-Generat ed Referral 03/23/2023 03/22/2024 1 1 [facility] for referral (narrative)* Diagnostic Procedure Only (Routine) - Closed Specialty Diagnoses / Procedures Referred By Contac t Referred To Contact MOLECULAR & FUNCTIONAL IMAGING Diagnoses SOB (shortness of breath) Coronary artery 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 rich plaque Chest pain on breathing Procedures NM CARDIAC PERF STRESS/PHARM MYOCARDIAL SPECT MULTIPLE STUDIES Samson Ragsdale DO [address] [place] [address] [facility] Imaging [address] [place] [address] Referral ID Status Reason Start Date Expiration Date V isits Requested Visits Authorized [id number] Closed Auto-Generate d Referral 03/23/2023 04/21/2024 1 1 [facility] for referral (narrative)* Outpatient Procedure (Routine) - Authorized Specialty Diagnoses / Procedures Referred By Contac t Referred To Contact [facility] Diagnoses Infrarenal abdominal aortic aneurysm (AAA) without rupture (HCC) Procedures US ABD AORTA COMPLETE VAS LAB DUP-SCAN AORTA IVC ILIAC VASCL/BPGS COMPLETE Brittany West DO [address] [place] [address] [facility] [place] [address] [place] [address] Referral ID Status Reason Start Date Expiration Date Visits Requested Visits Authorized [id number] Authorized Auto-Generat ed Referral 3 05/30/2024 1 1 * Outpatient Procedure (Routine) - Authorized Specialty Diagnoses / Procedures Referred By Contac t Referred To Contact [facility] Diagnoses Bilateral carotid artery stenosis Procedures US CAROTID ARTERIES MELISSA VAS LAB DUPLEX SCAN EXTRACRANIAL ART COMPL BI STUDY Brittany West DO [address] [place] [address] [facility] [address] [address] Referral ID Status Reason Start Date Expiration Date Visits Requested Visits Authorized [id number] Authorized Auto-Generat ed Referral 3 05/30/2024 1 1 [facility] for referral (narrative)* Outpatient Procedure (Routine) - Authorized Specialty Diagnoses / Procedures [facility] To Contact [facility] Diagnoses Generalized abdominal pain Gastroesophageal reflux disease without esophagitis Procedures EGD DIAGNOSTIC ESOPHAGOGASTRODUODENOSC OPY TRANSORAL DIAGNOSTIC Cristela Andersen APRN.WATER ATTENDANT [address] [place] [address] [facility] [place] [id number] Referral ID Status Reason Start Date Expiration Date Visits Requested Visits Authorized [id number] Authorized Auto-Generat ed Referral 04/16/2024 04/16/2025 1 1 * Outpatient Procedure (Routine) - Authorized Specialty Diagnoses / Procedures [facility] Ref[facility] To Contact [facility] Diagnoses Chronic diarrhea Generalized abdominal pain Procedures COLONOSCOPY DIAGNOSTIC COLONOSCOPY FLX DX W/COLLJ SPEC WHEN PFRMD Cristela Andersen APRN.WATER ATTENDANT [address] [place] [address] [address] Referral ID Status Reason Start Date Expiration Date Visits Requested Visits Authorized [id number] Authorized Auto-Generat ed Referral 04/16/2024 04/16/2025 1 1 [facility] for referral (narrative)* Diagnostic Procedure Only (Routine) - Closed Specialty Diagnoses / Procedures [facility] Referred To Contact XR IMAGING Diagnoses Bilateral chronic knee pain Procedures XR KNEE GENERAL 4V AP BOTH/PA BOTH/LAT/MERC BILATERAL RADIOLOGIC EXAM KNEE COMPLETE 4/MORE VIEWS Samson Ragsdale, DO [address] [place] [address] [place] [address] Referral ID Status Reason Start Date Expiration Date V isits Requested Visits Authorized [id number] Closed Auto-Generate d Referral 03/23/2023 04/21/2024 1 1 * Diagnostic Procedure Only (Routine) - Closed Specialty Diagnoses / Procedures Referred By Contac t Referred To Contact XR IMAGING Diagnoses 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 Procedures XR LUMBAR GENERAL 3V AP/LAT/L5-S1 RADEX SPINE LUMBOSACRAL 2/3 VIEWS Samson Ragsdale, DO [address] [place] [address] [place] [address] Referral ID Status Reason Start Date Expiration Date V isits Requested Visits Authorized [id number] Closed Auto-Generate d Referral 03/23/2023 04/21/2024 1 1 [facility] for referral (narrative)* Outpatient Procedure (Routine) - Pending Review Specialty Diagnoses / Procedures Referred By Contac t Referred To Contact [facility] Diagnoses Bilateral carotid artery stenosis Procedures US CAROTID ARTERIES MELISSA VAS LAB DUPLEX SCAN EXTRACRANIAL ART COMPL BI STUDY Brittany West DO [address] [place] [address] [facility] [address] [address] Referral ID Status Reason Start Date Expiration Date Visits Requested Visits Authorized [id number] Pending Review Auto-Generat ed Referral 10/04/2023 10/03/2024 1 1 * Outpatient Procedure (Routine) - Pending Review Specialty Diagnoses / Procedures Referred By Contac t Referred To Contact [facility] Diagnoses Infrarenal abdominal aortic aneurysm (AAA) without rupture (HCC) Procedures US ABD AORTA COMPLETE VAS LAB DUP-SCAN AORTA IVC ILIAC VASCL/BPGS COMPLETE Brittany West DO [address] [place] [address] [facility] [address] [address] Referral ID Status Reason Start Date Expiration Date Visits Requested Visits Authorized [id number] Pending Review Auto-Generat ed Referral 10/04/2023 10/03/2024 1 1 [facility] for referral (narrative)* Outpatient Procedure (Routine) - Closed Specialty Diagnoses / Procedures Referred By Contac t Referred To Contact [facility] Diagnoses Generalized abdominal pain Gastroesophageal reflux disease without esophagitis Procedures EGD DIAGNOSTIC ESOPHAGOGASTRODUODENOSC OPY TRANSORAL DIAGNOSTIC Cristela Andersen APRN.WATER ATTENDANT [address] [place] [address] [address] Referral ID Status Reason Start Date Expiration Date V isits Requested Visits Authorized [id number] Closed Auto-Generate d Referral 04/16/2024 04/16/2025 1 1 * Outpatient Procedure (Routine) - Closed Specialty Diagnoses / Procedures Referred By Contac t Referred To Contact [facility] Diagnoses Chronic diarrhea Generalized abdominal pain Procedures COLONOSCOPY DIAGNOSTIC COLONOSCOPY FLX DX W/COLLJ SPEC WHEN PFCristela Foster APRN.WATER ATTENDANT [address] [place] [address] [facility] [address] [address] Referral ID Status Reason Start Date Expiration Date V isits Requested Visits Authorized [id number] Closed Auto-Generate d Referral 04/16/2024 04/16/2025 1 1 [facility] for referral (narrative)No reason for referral information [facility] Work Phone: Reason for visit Narrative* Diagnostic Procedure Only (Routine) - Closed Specialty Diagnoses / Procedures Referred By Contac t Referred To Contact MOLECULAR & FUNCTIONAL IMAGING Diagnoses SOB (shortness of breath) Coronary artery 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 rich plaque Chest pain on breathing Procedures NM CARDIAC PERF STRESS/PHARM MYOCARDIAL SPECT MULTIPLE STUDIES Samson Ragsdale, DO [address] [place] [address] Molecular [facility] Functional Imaging [address] [place] [address] Referral ID Status Reason Start Date Expiration Date V isits Requested Visits Authorized [id number] Closed Auto-Generate d Referral 03/23/2023 04/21/2024 1 1 [facility] for visit Narrative* Diagnostic Procedure Only (Routine) - Closed Specialty Diagnoses / Procedures Referred By Contac t Referred To Contact XR IMAGING Diagnoses Bilateral chronic knee pain Procedures XR KNEE GENERAL 4V AP BOTH/PA BOTH/LAT/MERC BILATERAL RADIOLOGIC EXAM KNEE COMPLETE 4/MORE VIEWS Samson Ragsdale, DO [address] [place] [address] [place] [address] Referral ID Status Reason Start Date Expiration Date V isits Requested Visits Authorized [id number] Closed Auto-Generate d Referral 03/23/2023 04/21/2024 1 1 [facility] for visit Narrative* Outpatient Procedure (Routine) - Closed Specialty Diagnoses / Procedures Referred By Contac t Referred To Contact [facility] Diagnoses Chronic diarrhea Generalized abdominal pain Procedures COLONOSCOPY DIAGNOSTIC COLONOSCOPY FLX DX W/COLLJ SPEC WHEN Cristela Shaikh, BUSINESS SERVICES CLERK.WATER ATTENDANT [address] [place] [address] [facility] [place] [address] [place] [address] Referral ID Status Reason Start Date Expiration Date V isits Requested Visits Authorized [id number] Closed Auto-Generate d Referral 04/16/2024 04/16/2025 1 1 [facility] for visit Narrative* Diagnostic Procedure Only (Routine) - Closed Specialty Diagnoses / Procedures Referred By Contac t Referred To Contact XR IMAGING Diagnoses Upper back pain Procedures XR THORACIC GENERAL 3V AP/LAT/SWIMMERS RADEX SPINE THORACIC 3 VIEWS Theodora Hernandez, BUSINESS SERVICES CLERK.WATER ATTENDANT [address] [place] [address] Phone: tel: fax: [place] [address] Referral ID Status Reason Start Date Expiration Date V isits Requested Visits Authorized [id number] Closed Auto-Generate d Referral 11/26/2024 12/26/2025 1 1 [facility] for visit Narrative* MRI/CT (Urgent) - Closed Specialty Diagnoses / Procedures Referred By Melita t Referred To Contact MR IMAGING Diagnoses Other symptoms and signs involving the nervous system Procedures MRI BRAIN WO IVCON MRI BRAIN BRAIN STEM W/O CONTRAST MATERIAL Lala Godinez, BUSINESS SERVICES CLERK.WATER ATTENDANT [address] [place] [address] Phone: tel: fax: [place] [address] Referral ID Status Reason Start Date Expiration Date V isits Requested Visits Authorized [id number] Closed Auto-Generate d Referral 01/30/2025 03/01/2026 1 1 [facility] for visit Narrative* MRI/CT (Routine) - Closed Specialty Diagnoses / Procedures Referred By Melita t Referred To Contact CT IMAGING Diagnoses Myasthenia gravis (HCC) Procedures CT CHEST WO IVCON DIAGNOSTIC COMPUTED TOMOGRAPHY THORAX W/O CNTRST Manuela Lacy MD [address] [place] [address] Phone: tel: fax: [facility] IM[facility] Referral ID Status Reason Start Date Expiration Date V isits Requested Visits Authorized [id number] Closed Auto-Generate d Referral 03/18/2025 04/17/2026 1 1 [facility] Summary Purpose Family History Relationship Condition Age at Onset Recorded Date/T gonzalo father Arthritis Unknown mother Hypertension Unknown grandmother Diabetes mellitus Unknown No Family History Records Found Advance Directives No Advanced Directives Records Found Advance Directive Response Recorded Date/ Time Do you have a Healthcare Power of Senior Web Developer? No January 14, 2025 1:24am Reason for Referral Specialty Diagnoses / Procedures Referred By Melita oliver Referred To Contact Diagnoses Lymphocytic colitis Cristela Andersen, BUSINESS SERVICES CLERK.WATER ATTENDANT [address] [place] [address] Referral ID Status Reason Start Date Expiration Date Visits Re quested Visits Authorized [id number] Closed 1 1 Specialty Diagnoses / Procedures Referred By Contac t Referred To Contact General Surgery Diagnoses Chronic diarrhea Generalized abdominal pain Procedures CONSULT TO GENERAL SURGERY OFFICE/OUTPATIENT [facility] MINUTES Samson Ragsdale, [address] [place] [address] Referral ID Status Reason Start Date Expiration Date Visits Requested Visits Authorized [id number] Authorized PCP Requested Referral 03/26/2024 03/26/2025 1 [...] or prosecute any alcohol or drug abuse patient.[facility] the event this information is protected by the Federal Confidentiality of Alcohol and Drug Abuse Patient Records regulations: The Federal rules restrict any use of the information to criminally investigate or prosecute any alcohol or drug abuse patient.[facility] the event this information is protected by the Federal Confidentiality of Alcohol and Drug Abuse Patient Records regulations: The Federal rules restrict any use of the information to criminally investigate or prosecute any alcohol or drug abuse patient.[facility] the event this information is protected by the Federal Confidentiality of Alcohol and Drug Abuse Patient Records regulations: The Federal rules restrict any use of the information to criminally investigate or prosecute any alcohol or drug abuse patient.[facility] the event this information is protected by the Federal Confidentiality of Alcohol and Drug Abuse Patient Records regulations: The Federal rules restrict any use of the information to criminally investigate or prosecute any alcohol or drug abuse patient.[facility] the event this information is protected by the Federal Confidentiality of Alcohol and Drug Abuse Patient Records regulations: The Federal rules restrict any use of the information to criminally investigate or prosecute any alcohol or drug abuse patient.[facility] the event this information is protected by the Federal Confidentiality of Alcohol and Drug Abuse Patient Records regulations: The Federal rules restrict any use of the information to criminally investigate or prosecute any alcohol or drug abuse patient.[facility] the event this information is protected by the Federal Confidentiality of Alcohol and Drug Abuse Patient Records regulations: The Federal rules restrict any use of the information to criminally investigate or prosecute any alcohol or drug abuse patient.[facility]In the event this information is protected by the Federal Confidentiality of Alcohol and Drug Abuse Patient Records regulations: The Federal rules restrict any use of the information to criminally investigate or prosecute any alcohol or drug abuse patient.[facility] the event this information is protected by the Federal Confidentiality of Alcohol and Drug Abuse Patient Records regulations: The Federal rules restrict any use of the information to criminally investigate or prosecute any alcohol or drug abuse patient.[facility]In the event this information is protected by the Federal Confidentiality of Alcohol and Drug Abuse Patient Records regulations: The Federal rules restrict any use of the information to criminally investigate or prosecute any alcohol or drug abuse patient.[facility] ClinicIn the event this information is protected by the Federal Confidentiality of Alcohol and Drug Abuse Patient Records regulations: The Federal rules restrict any use of the information to criminally investigate or prosecute any alcohol or drug abuse patient.[facility] ClinicIn the event this information is protected by the Federal Confidentiality of Alcohol and Drug Abuse Patient Records regulations: The Federal rules restrict any use of the information to criminally investigate or prosecute any alcohol or drug abuse patient.[facility] ClinicIn the event this information is protected by the Federal Confidentiality of Alcohol and Drug Abuse Patient Records regulations: The Federal rules restrict any use of the information to criminally investigate or prosecute any alcohol or drug abuse patient.[facility] ClinicIn the event this information is protected by the Federal Confidentiality of Alcohol and Drug Abuse Patient Records regulations: The Federal rules restrict any use of the information to criminally investigate or prosecute any alcohol or drug abuse patient.[facility] ClinicIn the event this information is protected by the Federal Confidentiality of Alcohol and Drug Abuse Patient Records regulations: The Federal rules restrict any use of the information to criminally investigate or prosecute any alcohol or drug abuse patient.[facility] ClinicIn the event this information is protected by the Federal Confidentiality of Alcohol and Drug Abuse Patient Records regulations: The Federal rules restrict any use of the information to criminally investigate or prosecute any alcohol or drug abuse patient.[facility] ClinicIn the event this information is protected by the Federal Confidentiality of Alcohol and Drug Abuse Patient Records regulations: The Federal rules restrict any use of the information to criminally investigate or prosecute any alcohol or drug abuse patient.[facility] ClinicIn the event this information is protected by the Federal Confidentiality of Alcohol and Drug Abuse Patient Records regulations: The Federal rules restrict any use of the information to criminally investigate or prosecute any alcohol or drug abuse patient.[facility] ClinicIn the event this information is protected by the Federal Confidentiality of Alcohol and Drug Abuse Patient Records regulations: The Federal rules restrict any use of the information to criminally investigate or prosecute any alcohol or drug abuse patient.[facility] ClinicIn the event this information is protected by the Federal Confidentiality of Alcohol and Drug Abuse Patient Records regulations: The Federal rules restrict any use of the information to criminally investigate or prosecute any alcohol or drug abuse patient.[facility] ClinicIn the event this information is protected by the Federal Confidentiality of Alcohol and Drug Abuse Patient Records regulations: The Federal rules restrict any use of the information to criminally investigate or prosecute any alcohol or drug abuse patient.[facility] ClinicIn the event this information is protected by the Federal Confidentiality of Alcohol and Drug Abuse Patient Records regulations: The Federal rules restrict any use of the information to criminally investigate or prosecute any alcohol or drug abuse patient.[facility] ClinicIn the event this information is protected by the Federal Confidentiality of Alcohol and Drug Abuse Patient Records regulations: The Federal rules restrict any use of the information to criminally investigate or prosecute any alcohol or drug abuse patient.[facility] ClinicIn the event this information is protected by the Federal Confidentiality of Alcohol and Drug Abuse Patient Records regulations: The Federal rules restrict any use of the information to criminally investigate or prosecute any alcohol or drug abuse patient.[facility] ClinicIn the event this information is protected by the Federal Confidentiality of Alcohol and Drug Abuse Patient Records regulations: The Federal rules restrict any use of the information to criminally investigate or prosecute any alcohol or drug abuse patient.[facility] ClinicIn the event this information is protected by the Federal Confidentiality of Alcohol and Drug Abuse Patient Records regulations: The Federal rules restrict any use of the information to criminally investigate or prosecute any alcohol or drug abuse patient.[facility] ClinicIn the event this information is protected by the Federal Confidentiality of Alcohol and Drug Abuse Patient Records regulations: The Federal rules restrict any use of the information to criminally investigate or prosecute any alcohol or drug abuse patient.[facility] ClinicIn the event this information is protected by the Federal Confidentiality of Alcohol and Drug Abuse Patient Records regulations: The Federal rules restrict any use of the information to criminally investigate or prosecute any alcohol or drug abuse patient.[facility] ClinicIn the event this information is protected by the Federal Confidentiality of Alcohol and Drug Abuse Patient Records regulations: The Federal rules restrict any use of the information to criminally investigate or prosecute any alcohol or drug abuse patient.[facility] ClinicIn the event this information is protected by the Federal Confidentiality of Alcohol and Drug Abuse Patient Records regulations: The Federal rules restrict any use of the information to criminally investigate or prosecute any alcohol or drug abuse patient.[facility] ClinicIn the event this information is protected by the Federal Confidentiality of Alcohol and Drug Abuse Patient Records regulations: The Federal rules restrict any use of the information to criminally investigate or prosecute any alcohol or drug abuse patient.[facility] ClinicIn the event this information is protected by the Federal Confidentiality of Alcohol and Drug Abuse Patient Records regulations: The Federal rules restrict any use of the information to criminally investigate or prosecute any alcohol or drug abuse patient.[facility] ClinicIn the event this information is protected by the Federal Confidentiality of Alcohol and Drug Abuse Patient Records regulations: The Federal rules restrict any use of the information to criminally investigate or prosecute any alcohol or drug abuse patient.[facility] ClinicIn the event this information is protected by the Federal Confidentiality of Alcohol and Drug Abuse Patient Records regulations: The Federal rules restrict any use of the information to criminally investigate or prosecute any alcohol or drug abuse patient.[facility] ClinicIn the event this information is protected by the Federal Confidentiality of Alcohol and Drug Abuse Patient Records regulations: The Federal rules restrict any use of the information to criminally investigate or prosecute any alcohol or drug abuse patient.[facility] ClinicIn the event this information is protected by the Federal Confidentiality of Alcohol and Drug Abuse Patient Records regulations: The Federal rules restrict any use of the information to criminally investigate or prosecute any alcohol or drug abuse patient.[facility] ClinicIn the event this information is protected by the Federal Confidentiality of Alcohol and Drug Abuse Patient Records regulations: The Federal rules restrict any use of the information to criminally investigate or prosecute any alcohol or drug abuse patient.[facility] ClinicIn the event this information is protected by the Federal Confidentiality of Alcohol and Drug Abuse Patient Records regulations: The Federal rules restrict any use of the information to criminally investigate or prosecute any alcohol or drug abuse patient.[facility] ClinicIn the event this information is protected by the Federal Confidentiality of Alcohol and Drug Abuse Patient Records regulations: The Federal rules restrict any use of the information to criminally investigate or prosecute any alcohol or drug abuse patient.[facility] ClinicIn the event this information is protected by the Federal Confidentiality of Alcohol and Drug Abuse Patient Records regulations: The Federal rules restrict any use of the information to criminally investigate or prosecute any alcohol or drug abuse patient.[facility] ClinicIn the event this information is protected by the Federal Confidentiality of Alcohol and Drug Abuse Patient Records regulations: The Federal rules restrict any use of the information to criminally investigate or prosecute any alcohol or drug abuse patient.[facility] ClinicIn the event this information is protected by the Federal Confidentiality of Alcohol and Drug Abuse Patient Records regulations: The Federal rules restrict any use of the information to criminally investigate or prosecute any alcohol or drug abuse patient.[facility] ClinicIn the event this information is protected by the Federal Confidentiality of Alcohol and Drug Abuse Patient Records regulations: The Federal rules restrict any use of the information to criminally investigate or prosecute any alcohol or drug abuse patient.[facility] ClinicIn the event this information is protected by the Federal Confidentiality of Alcohol and Drug Abuse Patient Records regulations: The Federal rules restrict any use of the information to criminally investigate or prosecute any alcohol or drug abuse patient.[facility] ClinicIn the event this information is protected by the Federal Confidentiality of Alcohol and Drug Abuse Patient Records regulations: The Federal rules restrict any use of the information to criminally investigate or prosecute any alcohol or drug abuse patient.[facility] ClinicIn the event this information is protected by the Federal Confidentiality of Alcohol and Drug Abuse Patient Records regulations: The Federal rules restrict any use of the information to criminally investigate or prosecute any alcohol or drug abuse patient.[facility] ClinicIn the event this information is protected by the Federal Confidentiality of Alcohol and Drug Abuse Patient Records regulations: The Federal rules restrict any use of the information to criminally investigate or prosecute any alcohol or drug abuse patient.[facility] ClinicIn the event this information is protected by the Federal Confidentiality of Alcohol and Drug Abuse Patient Records regulations: The Federal rules restrict any use of the information to criminally investigate or prosecute any alcohol or drug abuse patient.[facility] ClinicIn the event this information is protected by the Federal Confidentiality of Alcohol and Drug Abuse Patient Records regulations: The Federal rules restrict any use of the information to criminally investigate or prosecute any alcohol or drug abuse patient.[facility] ClinicIn the event this information is protected by the Federal Confidentiality of Alcohol and Drug Abuse Patient Records regulations: The Federal rules restrict any use of the information to criminally investigate or prosecute any alcohol or drug abuse patient.[facility] ClinicIn the event this information is protected by the Federal Confidentiality of Alcohol and Drug Abuse Patient Records regulations: The Federal rules restrict any use of the information to criminally investigate or prosecute any alcohol or drug abuse patient.[facility] ClinicIn the event this information is protected by the Federal Confidentiality of Alcohol and Drug Abuse Patient Records regulations: The Federal rules restrict any use of the information to criminally investigate or prosecute any alcohol or drug abuse patient.[facility] ClinicIn the event this information is protected by the Federal Confidentiality of Alcohol and Drug Abuse Patient Records regulations: The Federal rules restrict any use of the information to criminally investigate or prosecute any alcohol or drug abuse patient.[facility] ClinicIn the event this information is protected by the Federal Confidentiality of Alcohol and Drug Abuse Patient Records regulations: The Federal rules restrict any use of the information to criminally investigate or prosecute any alcohol or drug abuse patient.[facility] ClinicIn the event this information is protected by the Federal Confidentiality of Alcohol and Drug Abuse Patient Records regulations: The Federal rules restrict any use of the information to criminally investigate or prosecute any alcohol or drug abuse patient.[facility] ClinicIn the event this information is protected by the Federal Confidentiality of Alcohol and Drug Abuse Patient Records regulations: The Federal rules restrict any use of the information to criminally investigate or prosecute any alcohol or drug abuse patient.[facility] ClinicIn the event this information is protected by the Federal Confidentiality of Alcohol and Drug Abuse Patient Records regulations: The Federal rules restrict any use of the information to criminally investigate or prosecute any alcohol or drug abuse patient.[facility] ClinicIn the event this information is protected by the Federal Confidentiality of Alcohol and Drug Abuse Patient Records regulations: The Federal rules restrict any use of the information to criminally investigate or prosecute any alcohol or drug abuse patient.[facility] ClinicIn the event this information is protected by the Federal Confidentiality of Alcohol and Drug Abuse Patient Records regulations: The Federal rules restrict any use of the information to criminally investigate or prosecute any alcohol or drug abuse patient.[facility] ClinicIn the event this information is protected by the Federal Confidentiality of Alcohol and Drug Abuse Patient Records regulations: The Federal rules restrict any use of the information to criminally investigate or prosecute any alcohol or drug abuse patient.[facility] ClinicIn the event this information is protected by the Federal Confidentiality of Alcohol and Drug Abuse Patient Records regulations: The Federal rules restrict any use of the information to criminally investigate or prosecute any alcohol or drug abuse patient.[facility] ClinicIn the event this information is protected by the Federal Confidentiality of Alcohol and Drug Abuse Patient Records regulations: The Federal rules restrict any use of the information to criminally investigate or prosecute any alcohol or drug abuse patient.[facility] ClinicIn the event this information is protected by the Federal Confidentiality of Alcohol and Drug Abuse Patient Records regulations: The Federal rules restrict any use of the information to criminally investigate or prosecute any alcohol or drug abuse patient.[facility] ClinicIn the event this information is protected by the Federal Confidentiality of Alcohol and Drug Abuse Patient Records regulations: The Federal rules restrict any use of the information to criminally investigate or prosecute any alcohol or drug abuse patient.[facility] ClinicIn the event this information is protected by the Federal Confidentiality of Alcohol and Drug Abuse Patient Records regulations: The Federal rules restrict any use of the information to criminally investigate or prosecute any alcohol or drug abuse patient.[facility] ClinicIn the event this information is protected by the Federal Confidentiality of Alcohol and Drug Abuse Patient Records regulations: The Federal rules restrict any use of the information to criminally investigate or prosecute any alcohol or drug abuse patient.[facility] ClinicIn the event this information is protected by the Federal Confidentiality of Alcohol and Drug Abuse Patient Records regulations: The Federal rules restrict any use of the information to criminally investigate or prosecute any alcohol or drug abuse patient.[facility] ClinicIn the event this information is protected by the Federal Confidentiality of Alcohol and Drug Abuse Patient Records regulations: The Federal rules restrict any use of the information to criminally investigate or prosecute any alcohol or drug abuse patient.[facility] ClinicIn the event this information is protected by the Federal Confidentiality of Alcohol and Drug Abuse Patient Records regulations: The Federal rules restrict any use of the information to criminally investigate or prosecute any alcohol or drug abuse patient.[facility] ClinicIn the event this information is protected by the Federal Confidentiality of Alcohol and Drug Abuse Patient Records regulations: The Federal rules restrict any use of the information to criminally investigate or prosecute any alcohol or drug abuse patient.[facility] ClinicIn the event this information is protected by the Federal Confidentiality of Alcohol and Drug Abuse Patient Records regulations: The Federal rules restrict any use of the information to criminally investigate or prosecute any alcohol or drug abuse patient.[facility] Reason for Visit (unrecogniz ed section and [...] SPECT MULTIPLE STUDIES Samson Ragsdale L, DO [address] [place] [address] Molecular & Functional Imaging [address] [place] [id number] Referral ID Status Reason Start Date Expiration Date V isits Requested Visits Authorized [id number] Closed Auto-Generate d Referral 03/23/2023 04/21/2024 1 [...] pain Procedures CONSULT TO GENERAL SURGERY OFFICE/OUTPATIENT [facility] MDM 60 MINUTES Samson Ragsdale, DO [address] [place] [address] Referral ID Status Reason Start Date Expiration Date V isits Requested Visits Authorized [id number] Closed PCP Requested Referral 03/26/2024 03/26/2025 1 [...] Comments Population Health Navigation Outreach [facility]/10/2024 [facility] Reason Comments Cough Cough, chest [...] disease Procedures CONSULT TO NEUROLOGY OFFICE/OUTPATIENT [facility] 60 MINUTES Lala Godinez APRN.WATER ATTENDANT [address] [place] [address] Phone: tel: fax: Referral ID Status Reason Start Date Expiration Date V isits Requested Visits Authorized [id number] Closed PCP Requested Referral 01/31/2025 01/31/2026 1 1 Reason Onset Date Comments Results 02/27/2025 Reason Comments Medication Problem Reason Comments New Patient Specialty Diagnoses / Procedures Referred By Contac t Referred To Contact Neurology Diagnoses Myasthenia gravis (HCC) Procedures OFFICE/OUTPATIENT [facility] 60 MINUTES Jud Maguire PA-C [address] [facility] [place] [address] Phone: tel: fax: Referral ID Status Reason Start Date Expiration Date V isits Requested Visits Authorized [id number] Closed PCP Requested Referral 02/27/2025 02/27/2026 1 1 Care Teams (unrecognized sec tion and content) Marketing Communications Coordinator Relationship Specialty Start Date End Date Samson Ragsdale, DO [address] [facility] [place] [address] PCP - General Family Practice 10/09/14 Marketing Communications Coordinator Relationship Specialty Start Date End Date Samson Ragsdale DO [address] [facility] [place] [address] PCP - General Family Practice 10/09/14 Marketing Communications Coordinator Relationship Specialty Start Date End Date Samson Ragsdale DO [address] [facility] [place] [address] PCP - General Family Practice 10/09/14 Marketing Communications Coordinator Relationship Specialty Start Date End Date Samson Ragsdale DO [address] [facility] [place] [address] PCP - General Family Medicine 10/09/14 Marketing Communications Coordinator Relationship Specialty Start Date End Date Samson Ragsdale DO [address] [facility] [place] [address] PCP - General Family Medicine 10/09/14 Marketing Communications Coordinator Relationship Specialty Start Date End Date Samson Ragsdale DO [address] [facility] [place] [address] PCP - General Family Medicine 10/09/14 Marketing Communications Coordinator Relationship Specialty Start Date End Date Samson Ragsdale DO [address] [facility] [place] [address] PCP - General Family Medicine 10/09/14 Marketing Communications Coordinator Relationship Specialty Start Date End Date Samson Ragsdale, DO [address] [place] [address] PCP - General Family Medicine 10/09/14 Marketing Communications Coordinator Relationship Specialty Start Date End Date Samson Ragsdale, DO [address] [place] [address] PCP - General Family Medicine 10/09/14 Marketing Communications Coordinator Relationship Specialty Start Date End Date Samson Ragsdale, DO [address] [place] [address] PCP - General Family Medicine 10/09/14 Marketing Communications Coordinator Relationship Specialty Start Date End Date Samson Ragsdale DO [address] [place] [address] PCP - General Family Medicine 10/09/14 Marketing Communications Coordinator Relationship Specialty Start Date End Date Samson Ragsdale DO [address] [place] [address] PCP - General Family Medicine 10/09/14 Marketing Communications Coordinator Relationship Specialty Start Date End Date Samson Ragsdale DO [address] [place] [address] PCP - General Family Medicine 10/09/14 Marketing Communications Coordinator Relationship Specialty Start Date End Date Samson Ragsdale DO [address] [place] [address] PCP - General Family Medicine 10/09/14 Marketing Communications Coordinator Relationship Specialty Start Date End Date Samson Ragsdale DO [address] [place] [address] PCP - General Family Medicine 10/09/14 Marketing Communications Coordinator Relationship Specialty Start Date End Date Samson Ragsdale DO [address] [facility] [place] [address] PCP - General Family Medicine 10/09/14 Marketing Communications Coordinator Relationship Specialty Start Date End Date Samson Ragsdale, [address] [facility] [place] [address] PCP - General Family Medicine 10/09/14 Marketing Communications Coordinator Relationship Specialty Start Date End Date Samson Ragsdale, DO [address] [facility] [place] [address] PCP - General Family Medicine 10/09/14 Marketing Communications Coordinator Relationship Specialty Start Date End Date Samson Ragsdale DO [address] [facility] [place] [address] PCP - General Family Medicine 10/09/14 Marketing Communications Coordinator Relationship Specialty Start Date End Date Samson Ragsdale DO [address] [facility] [place] [address] PCP - General Family Medicine 10/09/14 Marketing Communications Coordinator Relationship Specialty Start Date End Date Samson Ragsdale DO [address] [facility] [place] [address] PCP - General Family Medicine 10/09/14 Marketing Communications Coordinator Relationship Specialty Start Date End Date Samson Ragsdale DO [address] [facility] [place] [address] PCP - General Family Medicine 10/09/14 Marketing Communications Coordinator Relationship Specialty Start Date End Date Samson Ragsdale, DO [address] [facility] [place] [address] PCP - General Family Medicine 10/09/14 Marketing Communications Coordinator Relationship Specialty Start Date End Date Samson Ragsdale, [address] [place] [address] PCP - General Family Medicine 10/09/14 Marketing Communications Coordinator Relationship Specialty Start Date End Date Samson Ragsdale, [address] [place] [address] PCP - General Family Medicine 10/09/14 Marketing Communications Coordinator Relationship Specialty Start Date End Date Samson Ragsdale, [address] [place] [address] PCP - General Family Medicine 10/09/14 Marketing Communications Coordinator Relationship Specialty Start Date End Date Samson Ragsdale, [address] [place] [address] PCP - General Family Medicine 10/09/14 Marketing Communications Coordinator Relationship Specialty Start Date End Date Samson Ragsdale DO [address] [place] [address] PCP - General Family Medicine 10/09/14 Marketing Communications Coordinator Relationship Specialty Start Date End Date Samson Ragsdale, [address] [place] [address] PCP - General Family Medicine 10/09/14 Marketing Communications Coordinator Relationship Specialty Start Date End Date Samson Ragsdale, [address] [place] [address] PCP - General Family Medicine 10/09/14 Marketing Communications Coordinator Relationship Specialty Start Date End Date Samson Ragsdale, [address] [place] [address] PCP - General Family Medicine 10/09/14 Marketing Communications Coordinator Relationship Specialty Start Date End Date Samson Ragsdale DO [address] [place] [address] PCP - General Family Medicine 10/09/14 Marketing Communications Coordinator Relationship Specialty Start Date End Date Samson Ragsdale, [address] [place] [address] PCP - General Family Medicine 10/09/14 Marketing Communications Coordinator Relationship Specialty Start Date End Date Samson Ragsdale DO [address] [place] [address] PCP - General Family Medicine 10/09/14 Marketing Communications Coordinator Relationship Specialty Start Date End Date Samson Ragsdale DO [address] [place] [address] PCP - General Family Medicine 10/09/14 Marketing Communications Coordinator Relationship Specialty Start Date End Date Samson Ragsdale DO [address] [place] [address] PCP - General Family Medicine 10/09/14 Marketing Communications Coordinator Relationship Specialty Start Date End Date Samson Ragsdale DO [address] [place] [address] PCP - General Family Medicine 10/09/14 Marketing Communications Coordinator Relationship Specialty Start Date End Date Samson Ragsdale DO [address] [place] [address] PCP - General Family Medicine 10/09/14 Marketing Communications Coordinator Relationship Specialty Start Date End Date Samson Ragsdale DO [address] [place] [address] PCP - General Family Medicine 10/09/14 Marketing Communications Coordinator Relationship Specialty Start Date End Date Samson Ragsdale DO [address] [place] [address] PCP - General Family Medicine 10/09/14 Marketing Communications Coordinator Relationship Specialty Start Date End Date Samson Ragsdale DO [address] [place] [address] PCP - General Family Medicine 10/09/14 Marketing Communications Coordinator Relationship Specialty Start Date End Date Samson Ragsdale DO [address] [place] [address] PCP - General Family Medicine 10/09/14 Marketing Communications Coordinator Relationship Specialty Start Date End Date Samson Ragsdale DO [address] [place] [address] PCP - General Family Medicine 10/09/14 Desirae Irving, BUSINESS SERVICES CLERK.WATER ATTENDANT [address] [place] [address] [facility] 07/08/24 Lore Saenz, BUSINESS SERVICES CLERK.WATER ATTENDANT [address] [place] [address] [facility] 07/08/24 Marketing Communications Coordinator Relationship Specialty Start Date End Date Samson Ragsdale DO [address] [place] [address] PCP - General Family Medicine 10/09/14 Desirae Irving, BUSINESS SERVICES CLERK.WATER ATTENDANT [address] [place] [address] [facility] 07/08/24 Lore Saenz, BUSINESS SERVICES CLERK.WATER ATTENDANT [address] [facility] [address] [facility] 07/08/24 Marketing Communications Coordinator Relationship Specialty Start Date End Date Samson Ragsdale DO [address] [facility] [address] PCP - General Family Medicine 10/09/14 Desirae Irving, BUSINESS SERVICES CLERK.WATER ATTENDANT [address] [facility] [address] [facility] 07/08/24 DanyLore, BUSINESS SERVICES CLERK.WATER ATTENDANT [address] [place] [address] [facility] 07/08/24 Marketing Communications Coordinator Relationship Specialty Start Date End Date Samson Ragsdale DO [address] [facility] [address] PCP - General Family Medicine 10/09/14 Desirae Irving, BUSINESS SERVICES CLERK.WATER ATTENDANT [address] [facility] [address] [facility] Medicine 07/08/24 DanyLore, BUSINESS SERVICES CLERK.WATER ATTENDANT [address] [place] [address] [facility] 07/08/24 Marketing Communications Coordinator Relationship Specialty Start Date End Date Samson Ragsdale DO [address] [facility] [address] PCP - General Family Medicine 10/09/14 Lore Saenz, BUSINESS SERVICES CLERK.WATER ATTENDANT [address] [place] [address] [facility]/08/[facility] Marketing Communications Coordinator Relationship Specialty Start Date End Date Samson Ragsdale DO [address] [place] [address] PCP - General Family Medicine 10/09/14 Desirae Irving, BUSINESS SERVICES CLERK.WATER ATTENDANT [address] [place] [address] [facility] 07/08/24 10/19/24 Lore Saenz, BUSINESS SERVICES CLERK.WATER ATTENDANT [address] [place] [address] [facility] 07/08/24 Marketing Communications Coordinator Relationship Specialty Start Date End Date Samson Ragsdale DO [address] [place] [address] PCP - General Family Medicine 10/09/14 DanyLore, BUSINESS SERVICES CLERK.WATER ATTENDANT [address] [place] [address] [facility] 07/08/24 Marketing Communications Coordinator Relationship Specialty Start Date End Date Samson Ragsdale DO [address] [facility] [place] [address] PCP - General Family Medicine 10/09/14 Lore Saenz, BUSINESS SERVICES CLERK.WATER ATTENDANT [address] [facility] [place] [address] [facility] 07/08/24 Marketing Communications Coordinator Relationship Specialty Start Date End Date Samson Ragsdale DO [address] [place] [address] PCP - General Family Medicine 10/09/14 Lore Saenz, BUSINESS SERVICES CLERK.WATER ATTENDANT [address] [place], [place] [address] [facility] 07/08/24 Marketing Communications Coordinator Relationship Specialty Start Date End Date Samson Ragsdale DO [address] [place], [place] [address] PCP - General [facility] Medicine 10/09/14 DanyLore, BUSINESS SERVICES CLERK.WATER ATTENDANT [address] [place], [place] [address] [facility] Team Status: Active Member Role Status [...] January 15, 2025 End: January 15, 2025 Marketing Communications Coordinator Relationship Specialty Start Date End Date Samson Ragsdale DO [address] [place] [address] PCP - General Family Medicine 10/09/14 Lore Saenz, BUSINESS SERVICES CLERK.WATER ATTENDANT [address] [place] [address] [facility] 07/08/24 Cony Cheng APRN.WATER ATTENDANT [address] [place] [address], [place] [address] [facility] 01/14/25 Team Status: Inactive Member Role [...] Status: Active Member Role Status Dates Dr. Smason Ragsdale DO Primary Care Provider Active Start: [...] Provider Active Start: January 21, 2025 Dr. Sriin Montano MD Referring Provider [...] Provider Active S tart: January 22, 2025 Marketing Communications Coordinator Relationship Specialty Start Date End Date Samson Ragsdale DO [address] [facility] [place] [address] PCP - General Family Medicine 10/09/14 Lore Saenz, MICHI.WATER ATTENDANT [address] [facility] [place] [address] [facility] 07/08/24 Cony Cheng, BUSINESS SERVICES CLERK.WATER ATTENDANT [address] [place] [address] Driver Starting [employer] [facility] 01/14/25 Marketing Communications Coordinator Relationship Specialty Start Date End Date Samson Ragsdale DO [address] [place] [address] PCP - General Family Medicine 10/09/14 Lore Saenz, BUSINESS SERVICES CLERK.WATER ATTENDANT [address] [place] [address] [facility] 07/08/24 Cony Cheng, BUSINESS SERVICES CLERK.WATER ATTENDANT [address] [place] [address] [facility] 01/14/25 Marketing Communications Coordinator Relationship Specialty Start Date End Date Samson Ragsdale DO [address] [place] [address] PCP - General Family Medicine 10/09/14 Lore Saenz, BUSINESS SERVICES CLERK.WATER ATTENDANT [address] [place] [address] [facility] Cony Cheng, BUSINESS SERVICES CLERK.WATER ATTENDANT [facility] [place] [address] [facility] 01/14/25 Team Status: Active Member Role/Relationship [...] January 29, 2025 End: January 29, 2025 Marketing Communications Coordinator Relationship Specialty Start Date End Date Samson Ragsdale DO [address] [place] [address] PCP - General Family Medicine 10/09/14 Lore Saenz, BUSINESS SERVICES CLERK.WATER ATTENDANT [address] [place], [place] [address] [facility] 07/08/24 Cony Cheng, BUSINESS SERVICES CLERK.WATER ATTENDANT [address], [place] [address] [facility] 01/14/25 Marketing Communications Coordinator Relationship Specialty Start Date End Date Samson Ragsdale DO [address] [place], [place] [id number] PCP - General Family Medicine 10/09/14 DanyLore, BUSINESS SERVICES CLERK.WATER ATTENDANT [address] [place], [place] [address] [facility] 07/08/24 Cony Cheng, BUSINESS SERVICES CLERK.WATER ATTENDANT [address], [place] [address] [facility] 01/14/25 Team Status: Active Member Role/Relationship [...] 2025 End: February 21, 2025 Bijal Sorenson [employer]ARDING HOUSE COOK, [employer]ING [employer]-C Attending Provider Active Start: February 21, 2025 End: February 21, 2025 Marketing Communications Coordinator Relationship Specialty Start Date End Date Samson Ragsdale DO [address] [place], [place] [address] PCP - General Family Medicine 10/09/14 Lore Saenz, BUSINESS SERVICES CLERK.WATER ATTENDANT [address] [place] [address] [facility] 07/08/24 Cony Cheng, BUSINESS SERVICES CLERK.WATER ATTENDANT [address] [place] [address] [facility] Starting [facility] 01/14/25 Marketing Communications Coordinator Relationship Specialty Start Date End Date Samson Ragsdale DO [address] [place] [address] PCP - General Family Medicine 10/09/14 Lore Saenz, BUSINESS SERVICES CLERK.WATER ATTENDANT [address] [place] [address] [facility] 07/08/24 Cony Cheng, BUSINESS SERVICES CLERK.WATER ATTENDANT [address] [place] [address] [facility] 01/14/25 Marketing Communications Coordinator Relationship Specialty Start Date End Date Samson Ragsdale DO [address] [place] [address] PCP - General Family Medicine 10/09/14 Lore Saenz, BUSINESS SERVICES CLERK.WATER ATTENDANT [address] [place] [address] [facility] 07/08/24 Cony Cheng, BUSINESS SERVICES CLERK.WATER ATTENDANT [address] [place] [address] [facility] 01/14/25 Team Status: Inactive Member Role/Relationship Status Dates Dr. Samson Ragsdale DO Primary Care Provider Active Start: March 05, 2025 End: March 05, 2025 Dr. Nolan Hoyt MD Attending Provider Active Start: March 05, 2025 End: March 05, 2025 Dr. Nolan Hoyt MD Referring Provider Active Start: March 05, 2025 End: March 05, 2025 Marketing Communications Coordinator Relationship Specialty Start Date End Date Samson Ragsdale DO [address] [facility] [place] [address] PCP - General Family Medicine 10/09/14 Lore Saenz, BUSINESS SERVICES CLERK.WATER ATTENDANT [address] [facility] [place] [address] [facility] 07/08/24 Cony Cheng, BUSINESS SERVICES CLERK.WATER ATTENDANT [address] [facility] [place] [address] [facility] 01/14/25 Team Status: Inactive Member Role/Relationship Status Dates Dr. Samson Ragsdale DO Primary Care Provider Active Start: March 26, 2025 End: March 26, 2025 Dr. Marcial Monae DO Attending Provider Active Start: March 26, 2025 End: March 26, 2025 Dr. Marcial Monae DO Referring Provider Active Start: March 26, 2025 End: March 26, 2025 Marketing Communications Coordinator Relationship Specialty Start Date End Date Samson Ragsdale DO [address] [facility] [place] [address] PCP - General Family Medicine 10/09/14 Lore Saenz, BUSINESS SERVICES CLERK.WATER ATTENDANT [address] [facility] [place] [address] [facility] 07/08/24 Cony Cheng, BUSINESS SERVICES CLERK.WATER ATTENDANT [address], [place] [address] [facility] 01/14/25 Marketing Communications Coordinator Relationship Specialty Start Date End Date RagsdaleSamson DO [address] [place], [place] [address] PCP - General Family Medicine 10/09/14 Lore Saenz, BUSINESS SERVICES CLERK.WATER ATTENDANT [address] [place], [place] [address] [facility] 07/08/24 Cony Cheng, BUSINESS SERVICES CLERK.WATER ATTENDANT [address], [place] [id number] [facility] 01/14/25 (unrecognized sect ion and content) No Status Records FoundNo Status Records FoundNo Status Records FoundNo Status Records Found INFORMATION SOURCE (unrecogn ized section and content) DATE CREATED AUTHOR 06/01/2023 [facility] ([place]) DATE CREATED AUTHOR AUTHOR'S ORGANIZ ATION 05/25/2024 [facility] DATE CREATED AUTHOR AUTHOR'S ORGANIZ ATION 05/15/2025 [facility] DATE CREATED AUTHOR AUTHOR'S ORGANIZ ATION 05/15/2025 [facility] Goals (unrecognized section and content) Goals may [...] BE BASED ON THE PRIMARY CLINICAL RECORDS. [employer] provides no warranty or guarantee of the accuracy or completeness of information in this document.
== END 2025-05-17 19:05 | disposition left against medical advice (07) ==
LOC: ED 19:08
PROVIDERS: PCP Student in an Organized Health Care Education/Training Program
DX: Z53.21 Procedure and treatment not carried out due to patient leaving prior to being seen by health care provider (principal)